=== PATIENT | male | born 1970 | race Two or more races ===

== ENCOUNTER → 2020-06-25 14:32 | Outpatient (BNVA) | payer MEDICAID, SELFPAY | PROVIDERS: PCP Internal Medicine; Referring Provider Internal Medicine; Visit Provider Urology | DX: Z76.89 Persons encountering health services in other specified circumstances (principal) | CPT/HCPCS: 99212 ==

== ENCOUNTER → 2020-07-09 14:57 | Outpatient (BNVA) | payer MEDICAID, SELFPAY | PROVIDERS: Visit Provider Urology | DX: Z76.89 Persons encountering health services in other specified circumstances (principal) ==

== ENCOUNTER → 2020-07-14 14:45 | Outpatient (BNVA) | payer MEDICAID, SELFPAY | PROVIDERS: Visit Provider Urology | DX: Z76.89 Persons encountering health services in other specified circumstances (principal) | CPT/HCPCS: 99212 ==

== ENCOUNTER → 2020-07-27 15:15 | Outpatient (BNVA) | payer MEDICAID, SELFPAY | PROVIDERS: Visit Provider Urology | DX: Z76.89 Persons encountering health services in other specified circumstances (principal) | CPT/HCPCS: 99212 ==

== ENCOUNTER → 2020-08-10 15:25 | Outpatient (BNVA) | payer MEDICAID, SELFPAY | PROVIDERS: Visit Provider Urology | DX: E29.1 Testicular hypofunction (principal) | CPT/HCPCS: 96372; 99212 ==

== ENCOUNTER → 2020-09-01 11:07 | Outpatient (BNVA) | payer MEDICAID, SELFPAY | PROVIDERS: Visit Provider Urology | DX: E29.1 Testicular hypofunction (principal); Z79.899 Other long term (current) drug therapy | CPT/HCPCS: 96372; 99212 ==

== ENCOUNTER → 2020-09-16 14:50 | Outpatient (BNVA) | payer MEDICAID, SELFPAY | PROVIDERS: Visit Provider Urology | DX: E29.1 Testicular hypofunction (principal) | CPT/HCPCS: 96372 ==

== ENCOUNTER → 2020-09-30 14:36 | Outpatient (BNVA) | payer MEDICAID, SELFPAY | PROVIDERS: Visit Provider Urology | DX: E29.1 Testicular hypofunction (principal) | CPT/HCPCS: 96372; 99212 ==

== ENCOUNTER → 2020-12-09 14:03 | Outpatient (BNVA) | payer MEDICAID, SELFPAY | PROVIDERS: Visit Provider Urology | DX: E29.1 Testicular hypofunction (principal) | CPT/HCPCS: 96372; 99212 ==

== ENCOUNTER 2021-03-04 05:48 | Emergency (ER) | payer MEDICAID, SELFPAY ==
[2021-03-04 06:14] VITALS: BP 145/76; PULSE 67; RESP 20; TEMP 36.4; O2SAT 98; BMI 20.9
[2021-03-04] MEDS: 0.9 % Sodium Chloride 1,000 ML 999 ML IV (06:23)
[2021-03-04] MEDS: ondansetron HCL 4 MG/2 ML VIAL IVPUSH ×2 (06:23→08:00)
[2021-03-04 06:32] LABS: MANUAL DIFF FLAG NO
[2021-03-04 06:36] LABS: Basophils Percent Auto 0.3 % (0-2); Eosinophils Absolute Auto 0.1 X10*3/uL (0.0-0.4); Hematocrit 45.3 % (42-52); Hemoglobin 15.3 g/dl (14.0-18.0); Imm Gran Abs Auto 0.02 X10*3/uL (0.00-0.03); Imm Gran Pct Auto 0.3 % (0.0-0.4); Lymphocytes Absolute Auto 1.6 X10*3/uL (1.2-4.9); Lymphocytes Percent Auto 27.5 % (20-40); Mean Corpuscular HGB Conc 33.8 g/dl (31.0-36.0); Mean Corpuscular Hemoglobin 32.8 pg (27.0-33.0); Mean Platelet Volume 11.4 fL (9.4-12.4); Monocytes Absolute Auto 0.7 X10*3/uL (0.1-1.2); Monocytes Percent Auto 11.4 % (2-11); Neutrophils Absolute Auto 3.5 X10*3/uL (2.0-8.3); Neutrophils Percent Auto 58.5 % (45-73); Platelet Count 191 X10*3/uL (160-400); Red Blood Count 4.67 X10*6/uL (4.60-5.80); Red Cell Distribution Width 12.2 % (11.0-16.0); White Blood Count 5.9 X10*3/uL (4.8-10.8)
[2021-03-04 07:01] VITALS: RESP 20
[2021-03-04] MEDS: HYDROmorphone HCl 1 MG/ML SYRINGE IVPUSH (07:01)
--- NOTE | 2021-03-04 07:01 | ED.GENADULT ---
HPI - General Adult General Chief complaint: ETOH/Substance Use Stated complaint: drug use Time Seen by Provider: 03/04/21 06:23 Source: patient, family ( ) and professional security officer Mode of arrival: ambulatory History of Present Illness HPI narrative: 50-year-old male who is on methadone program and used heroin yesterday and then as per took more than he was supposed to of methadone at approximately midnight. Patient then self-administered Narcan prior to arrival with resulting tremulousness, nausea/vomiting, yawning, abdominal pain. Patient denies any suicidal or homicidal ideation. Related Data Home Medications Medication Instructions Recorded Confirmed cholecalciferol (vitamin D3) 50 mcg PO DAILY 06/30/20 09/01/20 [Vitamin D3] clonazepam 1 mg PO DAILY 06/30/20 09/01/20 fluticasone propionate [Flonase 1 spray INTRANASAL DAILY 06/30/20 09/01/20 Allergy Relief] hydroxyzine HCl 25 mg PO TID PRN 06/30/20 09/01/20 methadone 36 mg PO DAILY 06/30/20 09/01/20 omeprazole 20 mg PO DAILY 06/30/20 09/01/20 risperidone [Risperdal] 1 mg PO DAILY 06/30/20 09/01/20 tamsulosin 0.4 mg PO DAILY 06/30/20 09/01/20 zolpidem 10 mg PO BEDTIME PRN 06/30/20 09/01/20 Previous Rx's Medication Instructions Recorded docusate sodium 100 mg capsule 200 mg PO BEDTIME 30 Days #60 cap 06/03/20 simethicone 125 mg chewable tablet 125 mg PO TID-QID PRN #90 tab 09/14/20 tamsulosin 0.4 mg capsule 0.4 mg PO DAILY 90 Days #90 cap 09/27/20 testosterone cypionate 200 mg/mL 200 mg IM Q2W 28 Days #2 ml 10/26/20 intramuscular oil syringe with needle 3 mL 21 gauge #50 ea 01/28/21 x 1 1/2 Allergies Allergy/AdvReac Type Severity Reaction Status Date / Time vancomycin [VANCOMYCIN] Allergy Unknown UNKNOWN Verified 03/04/21 06:19 REACTION SEAFOOD Allergy Severe ANAPHYLAXIS Uncoded 03/04/21 06:19 shellfish Allergy Unknown Anaphylaxis Uncoded 03/04/21 06:19 Review of Systems Review of Systems: Pertinent positives and negatives as stated in HPI 10 point review of systems is otherwise negative. [facility] Past Medical History Source: nursing notes reviewed Medical History Anemia Anxiety and depression BPH (benign prostatic hyperplasia) Erectile dysfunction GERD (gastroesophageal reflux disease) History of Helicobacter pylori infection HTN (hypertension) Hx of hepatitis C Hx of substance abuse Hx: UTI (urinary tract infection) Hypogonadism Murmur Smoker Spinal pain Surgical History Hx of cystoscopy Social History Social History Advance Directives: No Physical Exam Vital Signs: Vital Signs: Last Vital Signs Temp 97.6 F 03/04/21 06:14 Pulse 67 03/04/21 06:14 Resp 20 03/04/21 07:01 BP 145/76 H 03/04/21 06:14 Pulse Ox 98 03/04/21 06:14 Body Mass Index 20.9 VITAL SIGNS: Reviewed. GENERAL: patient yawning, well developed, well nourished, moderate distress. HEAD: Normocephalic/atraumatic EYES: PERRLA, EOMI EARS: Ext canals without abnormality NOSE: Nares patent bilateral, rhinorrhea OROPHARYNX: no oral lesions noted, posterior pharynx clear NECK: Supple, no adenopathy LUNGS: Normal breath sounds. No adventitious sounds or accessory muscle use. SpO2<98> CARDIOVASCULAR: Regular rate and rhythm without noted murmurs ABDOMEN: Active nausea /vomiting, Soft, diffusely tender without rebound, non-distended with bowel sounds. SKIN: Inspection of the skin reveals no rashes NEUROLOGIC: Alert and oriented x 4, tremulousness, strength and sensation to light touch were grossly intact x 4. Course Course Course Narrative: 50-year-old male with history and clinical presentation consistent with acute withdrawal secondary to self administration of Narcan after taking methadone. Patient was provided with IV fluids, antiemetics, as well as medication for withdrawal. We will continue to observed. Basic labs were obtained. Signed out to Dr Ochoa. Medical Decision Making Lab Data Result diagrams: 03/04/21 06:26 03/04/21 06:26 Labs: Lab Results 07/02/21 Range/Units 06:26 WBC 5.9 (4.8-10.8) X10*3/uL RBC 4.67 (4.60-5.80) X10*6/uL Hgb 15.3 (14.0-18.0) g/dl Hct 45.3 (42-52) % MCV 97.0 (80-98) fL MCH 32.8 (27.0-33.0) pg MCHC 33.8 (31.0-36.0) g/dl RDW 12.2 (11.0-16.0) % Plt Count 191 (160-400) X10*3/uL MPV 11.4 (9.4-12.4) fL Immature Gran % (Auto) 0.3 (0.0-0.4) % Neut % (Auto) 58.5 (45-73) % Lymph % (Auto) 27.5 (20-40) % [place] % (Auto) 11.4 H (2-11) % Eos % (Auto) 2.0 (0-4) % Baso % (Auto) 0.3 (0-2) % Lymph # (Auto) 1.6 (1.2-4.9) X10*3/uL [place] # (Auto) 0.7 (0.1-1.2) X10*3/uL Eos # (Auto) 0.1 (0.0-0.4) X10*3/uL Baso # (Auto) 0.0 (0.0-0.2) X10*3/uL Abs Immat Gran (auto) 0.02 (0.00-0.03) X10*3/uL Absolute Neuts (auto) 3.5 (2.0-8.3) X10*3/uL Absolute Nucleated RBC 0.000 (0.0-0.012) X10*3/uL Nucleated RBC % (auto) 0.0 (0.0-0.2) /100WBC Discharge Plan Discharge Prescriptions: No Action docusate sodium [Colace] 100 mg capsule 200 mg PO BEDTIME 30 Days Qty: 60 RF: 3 simethicone [Gas Relief (simethicone)] 125 mg tablet,chewable 125 mg PO TID-QID PRN (Reason: abdominal distention) Qty: 90 RF: 2 tamsulosin 0.4 mg capsule 0.4 mg PO DAILY 90 Days Qty: 90 RF: 2 testosterone cypionate 200 mg/mL oil 200 mg IM Q2W 28 Days Qty: 2 RF: 5 (DME) syringe with needle [BD Luer-Vira Syringe] 3 mL 21 gauge x 1 1/2 syringe See Rx Instructions .MEDSUPPLY Qty: 50 RF: 6 clonazepam 1 mg Tablet 1 mg PO DAILY RF: 0 methadone 40 mg Tablet,Soluble 36 mg PO DAILY RF: 0 tamsulosin 0.4 mg Capsule 0.4 mg PO DAILY RF: 0 omeprazole 20 mg Capsule,Delayed Release(Dr/Ec) 20 mg PO DAILY RF: 0 hydroxyzine HCl 25 mg Tablet 25 mg PO TID PRN (Reason: Itching) RF: 0 zolpidem 10 mg Tablet 10 mg PO BEDTIME PRN (Reason: Insomnia) RF: 0 fluticasone propionate [Flonase Allergy Relief] 50 mcg/actuation [place],Suspension 1 spray INTRANASAL DAILY RF: 0 risperidone [Risperdal] 1 mg Tablet 1 mg PO DAILY RF: 0 cholecalciferol (vitamin D3) [Vitamin D3] 50 mcg (2,000 unit) Capsule 50 mcg PO DAILY RF: 0
[2021-03-04 08:06] LABS: Ethanol < 10 mg/dL
[2021-03-04 08:34] LABS: Alanine Aminotransferase 19 U/L (0-40); Albumin Level 4.4 g/dL (3.5-5.0); Alkaline Phosphatase 63 U/L (39-117); Anion Gap 15 (12-20); Aspartate Amino Transferase 22 U/L (5-37); Bilirubin Total 0.7 mg/dL (0.0-1.0); Blood Urea Nitrogen 11 mg/dL (9-16); Calcium 8.9 mg/dL (8.4-10.2); Carbon Dioxide 20 mmol/L (22-29); Chloride 107 mmol/L (96-108); Creatinine Clr Calc Pharmacy 83.8; Estimated Glomerular Filt Rate > 60; Glucose Random 112 mg/dL (60-115); Potassium 3.6 mmol/L (3.3-5.1); Sodium 138 mmol/L (135-145); Total Protein 7.2 g/dL (6.5-8.0)
[2021-03-04 08:56] VITALS: BP 122/73; PULSE 55
[2021-03-04] MEDS: cloNIDine HCL 0.1 MG TABLET PO (08:56)
[2021-03-04] MEDS: TiZANidine HCL 4 MG TABLET PO (08:57)
== END 2021-03-04 10:47 | disposition home or self-care (01) ==
PROVIDERS: Student in an Organized Health Care Education/Training Program; Emergency Provider Emergency Medicine Emergency Medical Services
DX: F11.23 Opioid dependence with withdrawal (principal); I10 Essential (primary) hypertension
CPT/HCPCS: 36415; 80053; 82077; 85025; 96361; 96374; 96375; 96376; 99283; 99284; J1170; J2405

== ENCOUNTER 2021-06-06 08:57 | Outpatient (REF) | payer MEDICAID, SELFPAY ==
[2021-06-06 09:27] LABS: Hematocrit 41.4 % (42-52); Hemoglobin 13.8 g/dl (14.0-18.0); Mean Corpuscular HGB Conc 33.3 g/dl (31.0-36.0); Mean Corpuscular Hemoglobin 31.5 pg (27.0-33.0); Mean Corpuscular Volume 94.5 fL (80-98); Mean Platelet Volume 10.8 fL (9.4-12.4); Platelet Count 196 X10*3/uL (160-400); Red Blood Count 4.38 X10*6/uL (4.60-5.80); Red Cell Distribution Width 13.9 % (11.0-16.0); White Blood Count 5.7 X10*3/uL (4.8-10.8)
[2021-06-06 10:23] LABS: Prostate Specific Antigen 1.56 ng/mL (<0.05-4.0)
[2021-06-10 08:01] LABS: Testosterone, Total 362 ng/dL (250-1100)
== END 2021-06-06 08:58 | disposition home or self-care (01) ==
LOC: HO.LAB 08:57
PROVIDERS: Visit Provider Urology
DX: Z12.5 Encounter for screening for malignant neoplasm of prostate (principal); E29.1 Testicular hypofunction
CPT/HCPCS: 36415; 84153; 84403; 85027

== ENCOUNTER → 2021-10-20 12:30 | Outpatient (BNVA) | payer MEDICAID, SELFPAY | PROVIDERS: Referring Provider General Practice; Visit Provider Physician Assistant | DX: K59.09 Other constipation (principal); K21.9 Gastro-esophageal reflux disease without esophagitis; R10.13 Epigastric pain; Z78.9 Other specified health status | CPT/HCPCS: 99202 ==

== ENCOUNTER → 2021-11-15 10:58 | Outpatient (REF) | payer MEDICAID, SELFPAY ==
--- NOTE | 2021-11-15 11:00 | CA_ITS ---
Acquisition Time: 2021-11-15 11:21:58 Total Exercise Time: 00:09:11 Test Indications: Chest Pain Medications: METHADONE RISPERDOL OMEPRAZOLE NAPROXEN MIRTAZAPINE FLONASE CYCLOBENZAPRINE ALBUTEROL Protocol: EMILY Max HR: 157 BPM 94% of Pred: 167 BPM Max BP: 120/082 mmHG Max Work Load: 10.3 METS Exercise stress test with exercise 9 min 11 sec of Emily protocol, without anginal symptoms, without arrythmia, with normotensive response to exercise in stage 1 and 2, BP not obtained again until recovery, without EKG changes meeting criteria for ischemia. Echo images obtained by tech at rest and immediately post peak exercise. Definity contrast used. Test reviewed with Dr Gallego. Referred By: Abram Montenegro Overread By: ZEYAD MOLINA
== END ==
LOC: HO.CARD 10:58
PROVIDERS: PCP Registered Nurse Community Health; Visit Provider Internal Medicine Cardiovascular Disease
DX: R07.9 Chest pain, unspecified (principal)
CPT/HCPCS: 93350; Q9957

== ENCOUNTER 2021-11-22 13:11 | Outpatient (REF) | payer MEDICAID, SELFPAY ==
--- NOTE | ~2021-11-22 | CT_ITS ---
EXAMINATION: CT ABDOMEN AND PELVIS WITHOUT CONTRAST CLINICAL INFORMATION: Low back pain and radiculopathy COMPARISON: Previous CT of the abdomen and pelvis April 2020 and abdominal ultrasound February 2020 TECHNIQUE: Multidetector volumetric imaging was performed from the superior aspect of the liver through the pubic symphysis. Sagittal and coronal reformatted images were obtained on the technologist's workstation. This CT examination was performed using dose optimization techniques as appropriate, variously including the following: *Automated exposure control *Adjustment of mA and/or kV according to patient size (this includes techniques or standardized protocols for targeted exams where dose is matched to indication/reason for exam; i.e. extremities or head) *Use of iterative reconstruction technique DLP: 260 mGy-cm FINDINGS: LUNG BASES: The visualized lung bases are unremarkable. LIVER, GALLBLADDER, AND BILIARY TREE: The liver is normal in size, shape, and attenuation. No focal hepatic lesion or biliary ductal dilatation is present. The gallbladder is unremarkable with no evidence of radiopaque gallstones, gallbladder wall thickening, or obvious pericholecystic inflammatory changes. PANCREAS: Unremarkable. SPLEEN: Unremarkable. ADRENAL GLANDS: Unremarkable. KIDNEYS AND URETERS: The kidneys are normal in size, shape, and attenuation. There is a tiny 1 mm left upper pole renal stone. No hydronephrosis or hydroureter. No perinephric stranding. BLADDER: Not optimally distended. GASTROINTESTINAL TRACT: The small and large bowel are unremarkable. The appendix is unremarkable. ABDOMINAL WALL: Small umbilical hernia containing fat. LYMPH NODES: Normal. VASCULAR: Unremarkable. PELVIC VISCERA: Prostate gland is prominent measuring 4.1 x 4.3 cm in AP and transverse dimension. OSSEOUS STRUCTURES: Unremarkable. CT/CT abdomen pelvis wo con IMPRESSION: Tiny 1 mm left upper pole renal stone. Slightly enlarged prostate gland. Small umbilical hernia containing fat. Fleischner guidelines were followed.
== END 2021-11-22 13:12 | disposition home or self-care (01) ==
LOC: HO.MRI 13:11
PROVIDERS: Visit Provider Nurse Practitioner Primary Care
DX: R10.9 Unspecified abdominal pain (principal); R31.29 Other microscopic hematuria
CPT/HCPCS: 74176

== ENCOUNTER 2021-12-07 13:12 | Outpatient (REF) | payer MEDICAID, SELFPAY ==
--- NOTE | ~2021-12-07 | US_ITS ---
EXAMINATION: US EXTRACRANIAL CAROTID DUPLEX, BILATERAL CLINICAL INFORMATION: Neck pain COMPARISON: None TECHNIQUE: Real-time ultrasound and Doppler techniques (integrating B-mode 2-D vascular images, Doppler spectral analysis and color-flow Doppler imaging) were utilized to interrogate the extracranial carotid arteries, the vertebral arteries and proximal subclavian arteries bilaterally. The degree of stenosis is determined by criteria similar to NASCET. FINDINGS: Right Side: 1. There is no significant atherosclerotic plaque seen in the bifurcation/proximal ICA region. 2. The common carotid artery PSV proximally is 120 cm/s and distally 109 cm/s. 3. The proximal internal carotid artery velocities are 89.1 cm/s systolic and 28.7 cm/s diastolic. 4. The proximal external carotid artery PSV is 1230 cm/s. 5. The vertebral artery shows antegrade flow. 6. The subclavian artery waveforms are normal. Left Side: 1. There is no significant atherosclerotic plaque seen in the bifurcation/proximal ICA region. 2. The common carotid artery PSV proximally is 115 cm/s and distally 114 cm/s. 3. The proximal internal carotid artery velocities are 59.3 cm/s systolic and 18.9 cm/s diastolic. 4. The proximal external carotid artery PSV is 116 cm/s. 5. The vertebral artery shows antegrade flow. 6. The subclavian artery waveforms are normal. US/US carotid duplex BI IMPRESSION: 1. RIGHT: Normal right internal carotid artery without atherosclerotic plaque or hemodynamically significant stenosis. 2. LEFT: Normal left internal carotid artery without atherosclerotic plaque or hemodynamically significant stenosis.
--- NOTE | ~2021-12-07 | US_ITS ---
EXAMINATION: US SOFT TISSUE HEAD/NECK CLINICAL INFORMATION: Left neck swelling. COMPARISON: None TECHNIQUE: Ultrasound of the left neck soft tissues is performed with high- frequency ocampo-scale imaging and color Doppler. FINDINGS: LEFT NECK SOFT TISSUES: Scattered architecturally normal nodes are present. The nodes show normal fatty hilus, normal cortical thickness, and no cystic change or calcification. No abnormal color flow. The largest nodes are as follows: 0.6 x 0.8 x 0.2 cm. Normal jaylin architecture. 1.7 x 0.5 x 0.7 cm in the submandibular region. Normal [place] architecture. US/US soft tiss head and/or neck IMPRESSION: Prominent left submandibular lymph node with normal architecture. Otherwise no focal abnormality.
== END 2021-12-07 13:13 | disposition home or self-care (01) ==
LOC: HO.US 13:12
PROVIDERS: Visit Provider Nurse Practitioner Primary Care
DX: M54.2 Cervicalgia (principal)
CPT/HCPCS: 76536; 93880

== ENCOUNTER 2021-12-12 12:27 | Outpatient (REF) | payer MEDICAID, SELFPAY ==
[2021-12-12 12:40] LABS: MANUAL DIFF FLAG NO
[2021-12-12 12:58] LABS: Basophils Percent Auto 0.5 % (0-2); Eosinophils Absolute Auto 0.2 X10*3/uL (0.0-0.4); Eosinophils Percent Auto 2.7 % (0-4); Hematocrit 44.2 % (42.0-52.0); Hemoglobin 14.6 g/dl (14.0-18.0); Imm Gran Abs Auto 0.01 X10*3/uL (0.00-0.03); Imm Gran Pct Auto 0.1 % (0.0-0.4); Lymphocytes Absolute Auto 1.7 X10*3/uL (1.2-4.9); Lymphocytes Percent Auto 22.1 % (20-40); Mean Corpuscular Hemoglobin 31.5 pg (27.0-33.0); Mean Corpuscular Volume 95.3 fL (80.0-98.0); Monocytes Absolute Auto 0.5 X10*3/uL (0.1-1.2); Monocytes Percent Auto 6.3 % (2-11); Neutrophils Absolute Auto 5.1 x10*3/uL (2.0-8.3); Neutrophils Percent Auto 68.3 % (45-73); Platelet Count 181 X10*3/uL (160-400); Red Blood Count 4.64 X10*6/uL (4.60-5.80); Red Cell Distribution Width 13.2 % (11.0-16.0); White Blood Count 7.5 X10*3/uL (4.8-10.8)
[2021-12-12 13:23] LABS: Alanine Aminotransferase 23 U/L (0-40); Albumin Level 4.3 g/dL (3.5-5.0); Alkaline Phosphatase 64 U/L (39-117); Anion Gap 10 (12-20); Aspartate Amino Transferase 21 U/L (5-37); Bilirubin Total 0.6 mg/dL (0.0-1.0); Blood Urea Nitrogen 11 mg/dL (9-16); Calcium 9.4 mg/dL (8.4-10.2); Carbon Dioxide 32 mmol/L (22-29); Chloride 100 mmol/L (96-108); Estimated Glomerular Filt Rate > 60; Glucose Random 108 mg/dL (60-115); Potassium 4.6 mmol/L (3.3-5.1); Sodium 137 mmol/L (135-145); Total Protein 7.3 g/dL (6.5-8.0)
[2021-12-12 13:43] LABS: Prostate Specific Antigen 1.59 ng/mL (<0.05-4.0); Thyroid Stimulating Hormone 2.61 uIU/mL (0.32-4.0)
[2021-12-14 09:02] LABS: HCV Log PCR <1.18 NOT DETECTED Log IU/mL (NOT DETECTED); HepC Viral Load <15 NOT DETECTED IU/mL (NOT DETECTED)
[2021-12-18 11:42] LABS: Testosterone, Total 1657 ng/dL (250-1100)
== END 2021-12-12 12:28 | disposition home or self-care (01) ==
LOC: HO.LAB 12:27
PROVIDERS: Physician Assistant; PCP Registered Nurse Community Health; Visit Provider Urology
DX: Z12.5 Encounter for screening for malignant neoplasm of prostate (principal); N13.8 Other obstructive and reflux uropathy; N40.1 Benign prostatic hyperplasia with lower urinary tract symptoms; R10.13 Epigastric pain; E29.1 Testicular hypofunction; K59.09 Other constipation; B19.20 Unspecified viral hepatitis C without hepatic coma; K21.9 Gastro-esophageal reflux disease without esophagitis
CPT/HCPCS: 36415; 80053; 84153; 84403; 84443; 85025; 87522

== ENCOUNTER → 2021-12-16 10:03 | Outpatient (BNVA) | payer MEDICAID, SELFPAY | PROVIDERS: PCP Registered Nurse Community Health; Visit Provider Urology | DX: E29.1 Testicular hypofunction (principal) | CPT/HCPCS: 51798; 99212 ==

== ENCOUNTER 2022-03-15 10:50 | Emergency (ER) | payer MEDICAID, SELFPAY ==
--- NOTE | ~2022-03-15 | US_ITS ---
EXAMINATION: US ABDOMEN LIMITED CLINICAL INFORMATION: Epigastric pain. Weight loss.. COMPARISON: Previous CT of the abdomen and pelvis November 2021 and abdominal ultrasound February 2020 TECHNIQUE: Real-time imaging of the right upper quadrant abdominal viscera. FINDINGS: PANCREAS: The head and body the pancreas are normal. The tail is not well visualized. The main pancreatic duct is upper normal in size measuring 3 mm in the neck of the pancreas. LIVER: Normal. The liver is normal in size. The liver contour is normal. Parenchymal echogenicity is normal. No focal hepatic lesion. There is no intrahepatic biliary duct dilatation seen. GALLBLADDER: Gallbladder is contracted and not well assessed.. COMMON BILE DUCT: Normal in caliber measuring 0.7 cm in diameter. RIGHT KIDNEY: Normal. No hydronephrosis. No renal calculi or focal parenchymal lesions. The kidney measures 10 cm in maximum dimension. FREE FLUID: None. US/US abdomen limited IMPRESSION: Limited visualization of the tail the pancreas. The main pancreatic duct is upper normal in size. Contracted gallbladder not well assessed by ultrasound. Otherwise unremarkable exam
[2022-03-15 11:07] VITALS: BP 110/50; PULSE 56; RESP 16; TEMP 37; O2SAT 97; BMI 22.4
[2022-03-15 11:16] LABS: MANUAL DIFF FLAG NO
[2022-03-15 11:20] LABS: Basophils Percent Auto 0.5 % (0-2); Eosinophils Absolute Auto 0.3 X10*3/uL (0.0-0.4); Eosinophils Percent Auto 3.1 % (0-4); Hematocrit 44.3 % (42.0-52.0); Hemoglobin 14.7 g/dl (14.0-18.0); Imm Gran Abs Auto 0.02 X10*3/uL (0.00-0.03); Imm Gran Pct Auto 0.2 % (0.0-0.4); Lymphocytes Percent Auto 24.6 % (20-40); Mean Corpuscular HGB Conc 33.2 g/dl (31.0-36.0); Mean Corpuscular Hemoglobin 31.3 pg (27.0-33.0); Mean Corpuscular Volume 94.5 fL (80.0-98.0); Mean Platelet Volume 11.5 fL (9.4-12.4); Monocytes Absolute Auto 0.6 X10*3/uL (0.1-1.2); Monocytes Percent Auto 7.4 % (2-11); Neutrophils Absolute Auto 5.2 x10*3/uL (2.0-8.3); Neutrophils Percent Auto 64.2 % (45-73); Platelet Count 175 X10*3/uL (160-400); Red Blood Count 4.69 X10*6/uL (4.60-5.80); Red Cell Distribution Width 13.2 % (11.0-16.0)
[2022-03-15 11:37] LABS: Alanine Aminotransferase 17 U/L (0-40); Albumin Level 4.5 g/dL (3.5-5.0); Alkaline Phosphatase 59 U/L (39-117); Anion Gap 12 (12-20); Aspartate Amino Transferase 19 U/L (5-37); Bilirubin Direct 0.4 mg/dL (0.0-0.5); Blood Urea Nitrogen 14 mg/dL (9-16); Calcium 8.9 mg/dL (8.4-10.2); Carbon Dioxide 30 mmol/L (22-29); Chloride 101 mmol/L (96-108); Creatinine Clr Calc Pharmacy 70.1; Estimated Glomerular Filt Rate > 60; Glucose Random 88 mg/dL (60-115); Potassium 4.5 mmol/L (3.3-5.1); Sodium 138 mmol/L (135-145); Total Protein 7.4 g/dL (6.5-8.0)
--- NOTE | 2022-03-15 14:08 | ED_ITS ---
HPI - Abdominal Pain General Chief Complaint: Abdominal Pain Stated Complaint: abd pain Time Seen by Provider: 03/15/22 14:01 Source: patient and court specialist Mode of arrival: ambulatory Limitations: no limitations History of Present Illness HPI narrative: 51 yo male with hx of GERD, chronic constipation, comes in with c/o months of being a picky eater, feeling full after eating and weight loss of 10lbs over several months. He saw his doctor as well and was told his stool studies are normal and his blood work. On arrival to the room he is drinking coffee and eating chicken nuggets. He is taking his omeprazole. He had CT scan back in November of 2021. He denies NSAID use daily. MD elicited complaint: abdominal pain Pertinent past history: constipation Pain Consistency: intermittent Location: epigastric Severity: mild Quality: fullness and dull Radiation: none Migration to: no migration Exacerbating factors: eating Relieving factors: nothing Associated symptoms: other (worse with eating) Treatments prior to arrival: other (takes all medications) Related Data Home Medications Medication Instructions Recorded Confirmed cholecalciferol (vitamin D3) 50 50 mcg PO DAILY 06/30/20 10/20/21 mcg (2,000 unit) capsule (Vitamin D3) clonazepam 1 mg tablet 1 mg PO DAILY 06/30/20 10/20/21 fluticasone propionate 50 1 spray intranasal DAILY 06/30/20 10/20/21 mcg/actuation nasal spray,suspension (Flonase Allergy Relief) hydroxyzine HCl 25 mg tablet 25 mg PO TID PRN Itching 06/30/20 10/20/21 methadone 40 mg soluble tablet 36 mg PO DAILY 06/30/20 10/20/21 omeprazole 20 mg capsule,delayed 20 mg PO DAILY 06/30/20 10/20/21 release risperidone 1 mg tablet (Risperdal) 1 mg PO DAILY 06/30/20 10/20/21 tamsulosin 0.4 mg capsule 0.4 mg PO DAILY 06/30/20 10/20/21 zolpidem 10 mg tablet 10 mg PO BEDTIME PRN Insomnia 06/30/20 10/20/21 fluoxetine 10 mg capsule 20 mg PO QAM 10/20/21 10/20/21 mirtazapine 15 mg tablet 15 mg PO BEDTIME 10/20/21 10/20/21 trazodone 50 mg tablet 25 mg PO BEDTIME 10/20/21 10/20/21 ascorbic acid (vitamin C) 500 mg 500 mg PO DAILY 12/16/21 tablet (Vitamin C) ferrous sulfate 325 mg (65 mg 325 mg PO DAILY 12/16/21 iron) tablet (FeroSul) lidocaine 5 % topical patch 0 patch topical 12/16/21 (Lidoderm) sennosides 8.6 mg tablet (senna) 17.2 mg PO DAILY 12/16/21 Previous Rx's Medication Instructions Recorded docusate sodium 100 mg capsule 200 mg PO BEDTIME 30 days #60 caps 06/03/20 (Colace) simethicone 125 mg chewable tablet 125 mg PO TID-QID PRN abdominal 09/14/20 (Gas Relief (simethicone)) distention #90 tabs syringe with needle 3 mL 21 gauge #50 ea 01/28/21 x 1 1/2 (BD Luer-Vira Syringe) pantoprazole 20 mg tablet,delayed 40 mg PO ONCE 30 days #60 tabs 10/20/21 release testosterone cypionate 200 mg/mL 200 mg IM Q2W 28 days #2 mL 11/01/21 intramuscular oil needle (disp) 18 G 18 gauge x 1 #30 ea 12/16/21 1/2 (BD Regular Bevel Fitzwilliam) needle (disp) 22 G 22 gauge x 1 #30 ea 12/16/21 1/2 (BD Regular Bevel Fitzwilliam) syringe (disposable) 1 mL (BD #30 ea 12/16/21 Luer-Vira Syringe) sucralfate 100 mg/mL oral 10 ml PO BID #420 mL 12/26/21 suspension (Carafate) tamsulosin 0.4 mg capsule 0.4 mg PO DAILY 90 days #90 caps 01/23/22 simethicone 125 mg chewable tablet 125 mg PO TID-QID PRN for gas #90 03/07/22 (Gas Relief Extra Strength) tabs Allergies Allergy/AdvReac Type Severity Reaction Status Date / Time SEAFOOD Allergy Severe ANAPHYLAXIS Uncoded 10/20/21 12:37 shellfish Allergy Unknown Anaphylaxis Uncoded 10/20/21 12:37 Review of Systems Review of Systems Constitutional : pos Weight loss, No Fever, No Chills ENT/Mouth : No sore throat, No Rhinorrhea Eyes: No Swelling, No Redness Cardiovascular : No Chest Pain, No SOB, NoEdema Respiratory : No Cough, No Sputum, No Wheezing Gastrointestinal : no Nausea, no Vomiting, no Diarrhea, positive abdominal Pain, No Hematochezia, No Melena Genitourinary : No Dysuria, No Urinary Frequency, No Hematuria, No Urgency Musculoskeletal : No joint pain, No Myalgias, No Joint Swelling Skin : No Skin Lesions, No rash Neuro : No Weakness, No Numbness, No Dizziness, No Headache Psych : No Anxiety/Panic, No Depression Heme/Lymph: No Bruising, No Lymphadenopathy Endocrine : No Polyuria, No Polydipsia All other systems reviewed and are negative. [facility] Past Medical History Medical History Anemia Anxiety and depression BPH (benign prostatic hyperplasia) Erectile dysfunction GERD (gastroesophageal reflux disease) History of Helicobacter pylori infection HTN (hypertension) Hx of hepatitis C Hx of substance abuse Hx: UTI (urinary tract infection) Hypogonadism Murmur Smoker Spinal pain Surgical History Hx of cystoscopy Family History Family History Mother Diabetes Social History Social History Alcohol intake: former Patient Tobacco Use Status: Current everyday Tobacco user Substance Use Type: Former Substance User Advance Directives: No Advance Directives Information Provided: No Current occupational status: unemployed Physical Exam ED Vital Signs: Vital Signs - 24 hr 03/15/22 11:07 03/15/22 14:09 Temperature 98.6 F Pulse Rate 56 57 Respiratory Rate 16 18 Blood Pressure 110/50 L 116/68 Pulse Oximetry 97 98 Oxygen Delivery Method Room Air Room Air BMI result Body Mass Index 22.4 Appearance: Alert. Oriented X3. No acute distress. Eyes: Pupils equal, round and reactive to light. ENT: Pharynx normal. Neck: Normal inspection. Neck supple. CVS: Normal heart rate and rhythm. Pulses normal. Respiratory: No respiratory distress. Breath sounds normal. Abdomen: Soft and non-tender. Skin: Skin warm and dry. Normal skin color. Normal skin turgor. Extremities: No lower extremity edema. Neuro: Oriented X 3. No motor deficit. No sensory deficit. Course Course Course Narrative: GCS 15, refuses to stay for ultrasound result - aware he needs to contact his PCP for results MDM - Abdominal Pain MDM Narrative Medical decision making narrative: 51 yo male with hx of GERD, chronic constipation comes in with c/o upper abdominal pain and it feels hard to eat at times. He states his PCP just called him to tell him his labs look good as well as his stool study ? h pylori. He had a CT scan back in November with no mass seen. He is due in April with GI for endoscopy. He is compliant with his PPI. On interview he reports that he feels much better now as he drinks coffee and eats chicken nuggets. At this time will repeat labs and obtain US to evaluate GB. Dispo per results and findings. Lab Data Result diagrams: 03/15/22 11:12 03/15/22 11:12 Labs: Lab Results 03/15/22 03/15/22 Range/Units 11:12 11:12 WBC 8.0 (4.8-10.8) X10*3/uL RBC 4.69 (4.60-5.80) X10*6/uL Hgb 14.7 (14.0-18.0) g/dl Hct 44.3 (42.0-52.0) % MCV 94.5 (80.0-98.0) fL MCH 31.3 (27.0-33.0) pg MCHC 33.2 (31.0-36.0) g/dl RDW 13.2 (11.0-16.0) % Plt Count 175 (160-400) X10*3/uL MPV 11.5 (9.4-12.4) fL Immature Gran % (Auto) 0.2 (0.0-0.4) % Neut % (Auto) 64.2 (45-73) % Lymph % (Auto) 24.6 (20-40) % [place] % (Auto) 7.4 (2-11) % Eos % (Auto) 3.1 (0-4) % Baso % (Auto) 0.5 (0-2) % Lymph # (Auto) 2.0 (1.2-4.9) X10*3/uL [place] # (Auto) 0.6 (0.1-1.2) X10*3/uL Eos # (Auto) 0.3 (0.0-0.4) X10*3/uL Baso # (Auto) 0.0 (0.0-0.2) X10*3/uL Abs Immat Gran (auto) 0.02 (0.00-0.03) X10*3/uL Absolute Neuts (auto) 5.2 (2.0-8.3) x10*3/uL Absolute Nucleated RBC 0.000 (0.0-0.012) X10*3/uL Nucleated RBC % (auto) 0.0 (0.0-0.2) /100WBC Sodium 138 (135-145) mmol/L Potassium 4.5 (3.3-5.1) mmol/L Chloride 101 (96-108) mmol/L Carbon Dioxide 30 H (22-29) mmol/L Anion Gap 12 (12-20) BUN 14 (9-16) mg/dL Creatinine 1.12 (0.5-1.4) mg/dL Estim Creat Clear Calc 70.1 Estimated GFR > 60 Random Glucose 88 (60-115) mg/dL Calcium 8.9 (8.4-10.2) mg/dL Total Bilirubin 1.0 (0.0-1.0) mg/dL Direct Bilirubin 0.4 (0.0-0.5) mg/dL AST 19 (5-37) U/L ALT 17 (0-40) U/L Alkaline Phosphatase 59 (39-117) U/L Total Protein 7.4 (6.5-8.0) g/dL Albumin 4.5 (3.5-5.0) g/dL Lipase 38 (8-78) U/L Discharge Plan Discharge Clinical Impression: Abdominal pain Qualifiers: Abdominal location: epigastric Qualified Code(s): R10.13 - Epigastric pain Patient Disposition: Home, Self-Care Instructions: Abdominal Pain (ED) Additional Instructions: return to ED for any worsening symptoms or concerns por favor, leanne un seguimiento con melara m?dico y el m?dico gastrointestinal seg?n lo programado. contin?e con melara omeprazol. amberly laboratorios y ultrasonido fueron normales hoy. se va antes de los resultados de la ecograf?a, comun?quese con melara m?dico de atenci?n primaria para obtener los resultados. se va antes de un estudio completo y esto podr?a llevar a la necesidad de realizar m?s pruebas. Prescriptions: No Action docusate sodium [Colace] 100 mg capsule 200 mg PO BEDTIME 30 Days Qty: 60 3RF simethicone [Gas Relief (simethicone)] 125 mg tablet,chewable 125 mg PO TID-QID PRN (Reason: abdominal distention) Qty: 90 2RF (DME) syringe with needle [BD Luer-Vira Syringe] 3 mL 21 gauge x 1 1/2 syringe See Rx Instructions .MEDSUPPLY Qty: 50 6RF Rx Instructions: As directed testosterone cypionate 200 mg/mL oil 200 mg IM Q2W 28 Days Qty: 2 5RF sucralfate [Carafate] 100 mg/mL suspension 10 ml PO BID Qty: 420 0RF tamsulosin 0.4 mg capsule 0.4 mg PO DAILY 90 Days Qty: 90 2RF simethicone [Gas Relief Extra Strength] 125 mg tablet,chewable 125 mg PO TID-QID PRN (Reason: for gas) Qty: 90 2RF clonazepam 1 mg Tablet 1 mg PO DAILY methadone 40 mg Tablet,Soluble 36 mg PO DAILY tamsulosin 0.4 mg Capsule 0.4 mg PO DAILY omeprazole 20 mg Capsule,Delayed Release(Dr/Ec) 20 mg PO DAILY hydroxyzine HCl 25 mg Tablet 25 mg PO TID PRN (Reason: Itching) zolpidem 10 mg Tablet 10 mg PO BEDTIME PRN (Reason: Insomnia) fluticasone propionate [Flonase Allergy Relief] 50 mcg/actuation [place],Suspension 1 spray INTRANASAL DAILY risperidone [Risperdal] 1 mg Tablet 1 mg PO DAILY cholecalciferol (vitamin D3) [Vitamin D3] 50 mcg (2,000 unit) Capsule 50 mcg PO DAILY trazodone 50 mg tablet 25 mg PO BEDTIME mirtazapine 15 mg tablet 15 mg PO BEDTIME fluoxetine 10 mg capsule 20 mg PO QAM pantoprazole 20 mg tablet,delayed release (DR/EC) 40 mg PO ONCE 30 Days Qty: 60 6RF lidocaine [Lidoderm] 5 % adhesive patch,medicated 0 patch topical ferrous sulfate [FeroSul] 325 mg (65 mg iron) tablet 325 mg PO DAILY ascorbic acid (vitamin C) [Vitamin C] 500 mg tablet 500 mg PO DAILY sennosides [senna] 8.6 mg tablet 17.2 mg PO DAILY (DME) BD Luer-Vira Syringe 1 mL syringe See Rx Instructions .MEDSUPPLY Qty: 30 0RF Rx Instructions: Testosterone injection weekly (DME) BD Regular Bevel Fitzwilliam 18 gauge x 1 1/2 needle See Rx Instructions .MEDSUPPLY Qty: 30 0RF Rx Instructions: As directed (DME) BD Regular Bevel Fitzwilliam 22 gauge x 1 1/2 needle See Rx Instructions .MEDSUPPLY Qty: 30 0RF Rx Instructions: As directed Print Language: Uzbek
[2022-03-15 14:09] VITALS: BP 116/68; PULSE 57; RESP 18; O2SAT 98
--- NOTE | 2022-03-15 14:31 | PC.NURSE ---
ultrasound being done at bedside
[2022-03-15 14:54] LABS: Lipase 38 U/L (8-78)
== END 2022-03-15 16:05 | disposition home or self-care (01) ==
PROVIDERS: Emergency Provider Emergency Medicine
DX: R10.13 Epigastric pain (principal); K21.9 Gastro-esophageal reflux disease without esophagitis; F17.200 Nicotine dependence, unspecified, uncomplicated
CPT/HCPCS: 36415; 76705; 80048; 80076; 83690; 85025; 99283; 99284

== ENCOUNTER → 2022-05-18 13:36 | Outpatient (BNVA) | payer MEDICAID, SELFPAY | PROVIDERS: PCP Registered Nurse Community Health; Referring Provider Registered Nurse Community Health; Visit Provider Physician Assistant | DX: R10.13 Epigastric pain (principal); K21.9 Gastro-esophageal reflux disease without esophagitis; K59.09 Other constipation; Z78.9 Other specified health status | CPT/HCPCS: 99212 ==

== ENCOUNTER 2022-06-19 10:37 | Outpatient (REF) | payer MEDICAID, SELFPAY ==
[2022-06-19 13:51] LABS: Hematocrit 42.4 % (42.0-52.0); Hemoglobin 14.4 g/dl (14.0-18.0); Mean Corpuscular Hemoglobin 31.4 pg (27.0-33.0); Mean Corpuscular Volume 92.4 fL (80.0-98.0); Mean Platelet Volume 12.3 fL (9.4-12.4); Platelet Count 168 X10*3/uL (160-400); Red Blood Count 4.59 X10*6/uL (4.60-5.80); Red Cell Distribution Width 12.8 % (11.0-16.0); White Blood Count 6.8 X10*3/uL (4.8-10.8)
[2022-06-19 14:24] LABS: Prostate Specific Antigen 1.31 ng/mL (<0.05-4.0)
[2022-06-24 14:17] LABS: Testosterone, Total 159 ng/dL (250-1100)
== END 2022-06-19 10:38 | disposition home or self-care (01) ==
LOC: HO.10HDL 10:37
PROVIDERS: Visit Provider Urology
DX: Z12.5 Encounter for screening for malignant neoplasm of prostate (principal); E29.1 Testicular hypofunction
CPT/HCPCS: 36415; 84153; 84403; 85027

== ENCOUNTER 2022-06-24 15:55 | Emergency (ER) | payer MEDICAID, SELFPAY ==
--- NOTE | 2022-06-24 | ECG_ITS ---
Test Reason : CHEST PAIN Blood Pressure : / mmHG Vent. Rate : 054 BPM Atrial Rate : 054 BPM P-R Int : 162 ms QRS Dur : 086 ms QT Int : 386 ms P-R-T Axes : 052 029 034 degrees QTc Int : 366 ms Sinus bradycardia RSR' or QR pattern in V1 suggests right ventricular conduction delay Borderline ECG When compared with ECG of 23-APR-2020 13:13, No significant change was found Referred By: Generic ED Physician Electronically Signed By:MUSTAPHA PEREZ MD
[2022-06-24 16:47] VITALS: BP 111/63; PULSE 65; RESP 18; TEMP 36.8; O2SAT 97; BMI 20.8
== END 2022-06-24 18:44 | disposition left against medical advice (07) ==
PROVIDERS: Emergency Provider Emergency Medicine; PCP Registered Nurse Community Health
DX: R07.9 Chest pain, unspecified (principal); R51.9 Headache, unspecified; R42 Dizziness and giddiness
CPT/HCPCS: 93005; 99283

== ENCOUNTER 2022-07-06 11:11 | Emergency (ER) | payer MEDICAID, SELFPAY ==
[2022-07-06 11:43] VITALS: BP 97/51; PULSE 68; RESP 18; TEMP 36.6; O2SAT 98; BMI 22.8
[2022-07-06 12:16] LABS: Strep A Nucleic Acid Negative (Negative)
[2022-07-06 12:17] LABS: COVID-19 Test Negative (Negative); IDNOW Serial# 16C4AD1C
--- NOTE | 2022-07-06 14:59 | ED.GENADULT ---
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 Patient reports is sick at home with similar symptoms. Patient denies any recent travel or sick contact. No fevers, chills, difficulty breathing, chest pain, leg swelling leg pain, vomiting or diarrhea. Related Data Home Medications Medication Instructions Recorded Confirmed cholecalciferol (vitamin D3) 50 50 mcg PO DAILY 06/30/20 06/28/22 mcg (2,000 unit) capsule (Vitamin D3) clonazepam 1 mg tablet 1 mg PO DAILY 06/30/20 06/28/22 fluticasone propionate 50 1 spray intranasal DAILY 06/30/20 06/28/22 mcg/actuation nasal spray,suspension (Flonase Allergy Relief) hydroxyzine HCl 25 mg tablet 25 mg PO TID PRN Itching 06/30/20 06/28/22 methadone 40 mg soluble tablet 36 mg PO DAILY 06/30/20 06/28/22 omeprazole 20 mg capsule,delayed 20 mg PO DAILY 06/30/20 06/28/22 release fluoxetine 10 mg capsule 20 mg PO QAM 10/20/21 06/28/22 mirtazapine 15 mg tablet 15 mg PO BEDTIME 10/20/21 06/28/22 trazodone 50 mg tablet 25 mg PO BEDTIME 10/20/21 06/28/22 ascorbic acid (vitamin C) 500 mg 500 mg PO DAILY 12/16/21 06/28/22 tablet (Vitamin C) ferrous sulfate 325 mg (65 mg 325 mg PO DAILY 12/16/21 06/28/22 iron) tablet (FeroSul) lidocaine 5 % topical patch 0 patch topical 12/16/21 06/28/22 (Lidoderm) sennosides 8.6 mg tablet (senna) 17.2 mg PO DAILY 12/16/21 06/28/22 cetirizine 10 mg tablet 10 mg PO DAILY PRN congestion 05/18/22 06/28/22 risperidone 1 mg tablet (Risperdal) 1 mg PO DAILY 05/18/22 06/28/22 nicotine 14 mg/24 hr daily 0 patch topical 06/22/22 06/28/22 transdermal patch Previous Rx's Medication Instructions Recorded docusate sodium 100 mg capsule 200 mg PO BEDTIME 30 days #60 caps 06/03/20 (Colace) syringe with needle 3 mL 21 gauge #50 ea 01/28/21 x 1 1/2 (BD Luer-Vira Syringe) needle (disp) 18 G 18 gauge x 1 #30 ea 12/16/21 1/2 (BD Regular Bevel Lometa) needle (disp) 22 G 22 gauge x 1 #30 ea 12/16/21 1/2 (BD Regular Bevel Lometa) syringe (disposable) 1 mL (BD #30 ea 12/16/21 Luer-Vira Syringe) sucralfate 100 mg/mL oral 10 ml PO BID #420 mL 12/26/21 suspension (Carafate) tamsulosin 0.4 mg capsule 0.4 mg PO DAILY 90 days #90 caps 01/23/22 simethicone 125 mg chewable tablet 125 mg PO TID-QID PRN for gas #90 03/07/22 (Gas Relief Extra Strength) tabs testosterone cypionate 200 mg/mL 200 mg IM Q2W 28 days #2 mL 04/14/22 intramuscular oil pantoprazole 20 mg tablet,delayed 40 mg PO DAILY #60 tabs 05/09/22 release bisacodyl 5 mg tablet,delayed 10 mg PO ONCE colonoscopy prep 1 05/18/22 release (Dulcolax (bisacodyl)) day #2 tabs polyethylene glycol 3350 17 238 g PO ONCE 1 day #238 grams 05/18/22 gram/dose oral powder (Miralax) Allergies Allergy/AdvReac Type Severity Reaction Status Date / Time No Known Drug Allergies Allergy Mild Unknown Verified 06/24/22 16:47 SEAFOOD Allergy Severe ANAPHYLAXIS Uncoded 06/24/22 16:47 shellfish Allergy Unknown Anaphylaxis Uncoded 06/24/22 16:47 Review of Systems Review of Systems: Yes all other systems are reviewed and are negative Constitutional: Constitutional: Reports no additional constitutional complaints, Denies body ache(s), Denies chills, Denies fever(s), Reports headache(s) and Denies weakness Eyes: Eyes: Reports no additional eye complaints and Denies change in vision ENT: Reports system reviewed and no additional complaints, except as documented, Denies dizziness, Reports headache(s), Denies nasal congestion, Denies nasal discharge, Denies neck pain and Reports sore throat Cardiovascular: Cardiovascular: Reports no additional cardiovascular complaints, Denies chest pain, Denies leg edema and Denies dyspnea Respiratory: Respiratory: Reports no additional respiratory complaints, Reports cough and Denies dyspnea Gastrointestinal: Gastrointestinal: Reports no additional gastrointestinal complaints, Denies abdominal pain, Denies diarrhea, Denies nausea and Denies vomiting Genitourinary: Genitourinary: Denies urinary incontinence Musculoskeletal: Musculoskeletal: Reports no additional musculoskeletal complaints, Denies back pain, Denies arthralgias, Denies joint swelling, Denies neck pain, Denies numbness and Denies tingling Integumentary/Breasts: Skin/Breast: Reports system reviewed and no additional complaints, except as docu and Denies rash Neurologic: Reports system reviewed and no additional complaints, except as documented, Denies dizziness, Reports headache(s), Denies numbness, Denies tingling and Denies weakness PMFSH Past Medical History Attestation statement: The following information was validated with the patient. Source: old records reviewed and nursing notes reviewed Medical History Anemia Anxiety and depression BPH (benign prostatic hyperplasia) Erectile dysfunction GERD (gastroesophageal reflux disease) History of Helicobacter pylori infection HTN (hypertension) Hx of hepatitis C Hx of substance abuse Hx: UTI (urinary tract infection) Hypogonadism Murmur Smoker Spinal pain Surgical History Hx of cystoscopy Family History Family History Mother Diabetes Social History Social History Alcohol intake: former Patient Tobacco Use Status: Current everyday Tobacco user Substance Use Type: Former Substance User Advance Directives: No Advance Directives Information Provided: Yes Current occupational status: unemployed Physical Exam ED Vital Signs: Vital Signs - 24 hr 07/06/22 11:43 Temperature 98 F Pulse Rate 68 Respiratory Rate 18 Blood Pressure 97/51 L Pulse Oximetry 98 Oxygen Delivery Method Room Air BMI result Body Mass Index 22.8 Const General: cooperative, healthy appearing, comfortable and no acute distress Orientation/consciousness: patient oriented x3 Limitations: no limitations HENMT Head: Yes normal to inspection Ears: hearing grossly normal bilaterally and TM's normal bilaterally General nose exam: Normal external nose present Face and sinus: Yes normal facial exam Mouth: Normal oral and palatal mucosa present Throat: Yes posterior oropharynx normal, Yes tonsils normal and Yes uvula midline Eyes General: appearance normal, both eyes and all related structures Pupils: Equal, round and reactive pupils present Neck Neck: Yes normal visual inspection, Yes full ROM, Yes no lymphadenopathy and Yes no meningeal signs Chest Chest palpation & inspection: normal inspection of the chest Resp Effort & Inspection: normal respiratory effort Auscultation: clear to auscultation bilaterally Cardio Rate: regular rate Rhythm: regular rhythm Peripheral pulses: Peripheral pulses 2+ throughout GI Inspection: Yes normal to inspection General: Yes no CVA tenderness Back/Spine/Pelvis Back: no CVA tenderness Thoracic/Lumbar Spine: thoracic and lumbar spine normal to inspection Skin General skin exam: no rashes or lesions noted Neuro General: patient oriented x3, moves all extremities and no meningeal signs Cranial nerves: Yes Equal, round and reactive pupils present Cognition (Neuro): normal cognition Gait exam (Neuro): Normal gait present Extrem General: Yes normal to inspection Course Course Course Narrative: COVID and strep testing are negative. Likely viral syndrome. Reviewed worrisome signs and symptoms of when to return to the emergency room. Comfortable discharge home. Medical Decision Making MDM Narrative Medical decision making narrative: URI symptoms for 4 days with sick contact. Exam is normal. Vitals are stable. Will send testing for COVID and strep Medical Records Medical records reviewed: Yes I reviewed the patient's medical records. Lab Data Lab results reviewed: Yes I reviewed the patient's lab results. Labs: Lab Results 07/06/22 07/06/22 Range/Units 11:51 11:51 COVID-19 ([facility]NA) Negative (Negative) COVID-19 Clin Com See Note S. pyogenes GrpA GEORGI Negative (Negative) Discharge Plan Discharge Clinical Impression: Acute viral syndrome Patient Disposition: Home, Self-Care Instructions: Viral Syndrome (ED) Additional Instructions: Las pruebas de gripe, covid son negativas. Aumentar l?quidos, descansar [place] motrin o tylenol para el dolor o la fiebre seg?n sea necesario Prescriptions: No Action docusate sodium [Colace] 100 mg capsule 200 mg PO BEDTIME 30 Days Qty: 60 3RF (DME) syringe with needle [BD Luer-Vira Syringe] 3 mL 21 gauge x 1 1/2 syringe See Rx Instructions .MEDSUPPLY Qty: 50 6RF Rx Instructions: As directed sucralfate [Carafate] 100 mg/mL suspension 10 ml PO BID Qty: 420 0RF tamsulosin 0.4 mg capsule 0.4 mg PO DAILY 90 Days Qty: 90 2RF simethicone [Gas Relief Extra Strength] 125 mg tablet,chewable 125 mg PO TID-QID PRN (Reason: for gas) Qty: 90 2RF testosterone cypionate 200 mg/mL oil 200 mg IM Q2W 28 Days Qty: 2 5RF pantoprazole 20 mg tablet,delayed release (DR/EC) 40 mg PO DAILY Qty: 60 6RF clonazepam 1 mg Tablet 1 mg PO DAILY methadone 40 mg Tablet,Soluble 36 mg PO DAILY omeprazole 20 mg Capsule,Delayed Release(Dr/Ec) 20 mg PO DAILY hydroxyzine HCl 25 mg Tablet 25 mg PO TID PRN (Reason: Itching) fluticasone propionate [Flonase Allergy Relief] 50 mcg/actuation [place],Suspension 1 spray INTRANASAL DAILY cholecalciferol (vitamin D3) [Vitamin D3] 50 mcg (2,000 unit) Capsule 50 mcg PO DAILY risperidone [Risperdal] 1 mg tablet 1 mg PO DAILY trazodone 50 mg tablet 25 mg PO BEDTIME mirtazapine 15 mg tablet 15 mg PO BEDTIME fluoxetine 10 mg capsule 20 mg PO QAM nicotine 14 mg/24 hr patch 24 hour 0 patch topical bisacodyl [Dulcolax (bisacodyl)] 5 mg tablet,delayed release (DR/EC) 10 mg PO ONCE 1 Days Qty: 2 0RF Rx Instructions: Take 2 tablets by mouth at 12:00pm the day before your procedure. polyethylene glycol 3350 [Miralax] 17 gram/dose powder 238 g PO ONCE 1 Days Qty: 238 0RF Rx Instructions: Take as directed by mouth the day before your procedure. cetirizine 10 mg tablet 10 mg PO DAILY PRN (Reason: congestion) lidocaine [Lidoderm] 5 % adhesive patch,medicated 0 patch topical ferrous sulfate [FeroSul] 325 mg (65 mg iron) tablet 325 mg PO DAILY ascorbic acid (vitamin C) [Vitamin C] 500 mg tablet 500 mg PO DAILY sennosides [senna] 8.6 mg tablet 17.2 mg PO DAILY (DME) BD Luer-Vira Syringe 1 mL syringe See Rx Instructions .MEDSUPPLY Qty: 30 0RF Rx Instructions: Testosterone injection weekly (DME) BD Regular Bevel Lometa 18 gauge x 1 1/2 needle See Rx Instructions .MEDSUPPLY Qty: 30 0RF Rx Instructions: As directed (DME) BD Regular Bevel Lometa 22 gauge x 1 1/2 needle See Rx Instructions .MEDSUPPLY Qty: 30 0RF Rx Instructions: As directed Referrals: Lilliam Mar NP [Primary Care Provider] - 5 days Interventions: ED Discharge Assessment Last Done: 07/06/22 15:25 Discharge Date/Time: 07/06/22 15:29 Print Language: Upper Sorbian
== END 2022-07-06 15:29 | disposition home or self-care (01) ==
PROVIDERS: Emergency Provider Emergency Medicine; PCP Registered Nurse Community Health
DX: B34.9 Viral infection, unspecified (principal); J02.9 Acute pharyngitis, unspecified; Z20.822 Contact with and (suspected) exposure to COVID-19
CPT/HCPCS: 87635; 87651; 99282; 99283

== ENCOUNTER 2022-10-08 17:07 | Emergency (ER) | payer MEDICAID, SELFPAY ==
--- NOTE | ~2022-10-08 | CT_ITS ---
EXAMINATION: CT head/brain wo IV con CLINICAL INFORMATION: VILLAR, blurry vision COMPARISON: CT head 01/09/2019 TECHNIQUE: Contiguous axial imaging was performed from the skull base to vertex without intravenous contrast. Sagittal and coronal reformatted images were obtained. This CT examination was performed using dose optimization techniques as appropriate, variously including the following: * Automated exposure control * Adjustment of mA and/or kV according to patient size (this includes techniques or standardized protocols for targeted exams where dose is matched to indication/reason for exam; i.e. extremities or head) Use of iterative reconstruction technique DLP: 675 mGy-cm FINDINGS: The ventricles and sulci are normal in size and configuration without significant volume loss or hydrocephalus. There is no abnormal attenuation within the brain parenchyma. No territorial loss of ocampo-white differentiation. No acute intracranial hemorrhage or extra-axial fluid collection. No mass lesion, significant mass effect, or herniation pattern. The orbits are grossly normal. Paranasal sinuses and mastoid air cells are well aerated. Sclerotic wall thickening of the left maxillary sinus leung suggestive of chronic sinusitis with resolved previous complete opacification. Osseous structures are intact. CT/CT head/brain wo IV con IMPRESSION: 1. No acute intracranial abnormality. 2. Sclerotic wall thickening of the left maxillary sinus leung suggestive of chronic sinusitis with resolved previous complete opacification
--- NOTE | 2022-10-08 17:09 | ED_ITS ---
HPI - Headache General Chief Complaint: Headache <JONNY Reyes - Last Filed: 10/08/22 17:17> Stated Complaint: Migraine/ nausea <JONNY Reyes - Last Filed: 10/08/22 17:17> Time Seen by Provider: 10/08/22 20:06 <JONNY Reyes - Last Filed: 10/08/22 17:17> Source: patient <Ayaka Pruett NP - Last Filed: 10/09/22 01:16> Mode of arrival: ambulatory <Ayaka Pruett NP - Last Filed: 10/09/22 01:16> Limitations: language barrier <Ayaka Pruett NP - Last Filed: 10/09/22 01:16> History of Present Illness HPI Narrative: 52-year-old male presents with 1 day of headache, blurred vision, photosensitivity, and 10/10 pain. States that he took Tylenol, Motrin, and his 's migraine medication with poor effect. Does not report any fevers or chills, is able to move all of his extremities, does not report trauma, loss of balance or weakness. <Ayaka Pruett NP - Last Filed: 10/09/22 01:16> MD elicited complaint: headache and migraine <Ayaka Pruett NP - Last Filed: 10/09/22 01:16> Onset (ago): day(s) (1) <Ayaka Pruett NP - Last Filed: 10/09/22 01:16> Onset description: gradually <Ayaka Pruett NP - Last Filed: 10/09/22 01:16> Location: diffuse <Ayaka Pruett NP - Last Filed: 10/09/22 01:16> Severity: severe <Ayaka Pruett NP - Last Filed: 10/09/22 01:16> Pain scale (0-10): 10 <Ayaka Pruett NP - Last Filed: 10/09/22 01:16> Quality & Timing: throbbing, pressure, progressively worsening and first headache <Ayaka Pruett NP - Last Filed: 10/09/22 01:16> Exacerbating factors: light and noise <Ayaka Pruett NP - Last Filed: 10/09/22 01:16> Relieving factors: nothing <Ayaka Pruett NP - Last Filed: 10/09/22 01:16> Context: occurred at rest <Ayaka Pruett NP - Last Filed: 10/09/22 01:16> Associated symptoms: photophobia and sensitivity to sound <Ayaka Pruett NP - Last Filed: 10/09/22 01:16> Treatments prior to arrival: acetaminophen, ibuprofen and migraine medication <Ayaka Pruett NP - Last Filed: 10/09/22 01:16> Related Data Home Medications: Home Medications Medication Instructions Recorded Confirmed cholecalciferol (vitamin D3) 50 50 mcg PO DAILY 06/30/20 06/28/22 mcg (2,000 unit) capsule (Vitamin D3) clonazepam 1 mg tablet 1 mg PO DAILY 06/30/20 06/28/22 fluticasone propionate 50 1 spray intranasal DAILY 06/30/20 06/28/22 mcg/actuation nasal spray,suspension (Flonase Allergy Relief) hydroxyzine HCl 25 mg tablet 25 mg PO TID PRN Itching 06/30/20 06/28/22 methadone 40 mg soluble tablet 36 mg PO DAILY 06/30/20 06/28/22 omeprazole 20 mg capsule,delayed 20 mg PO DAILY 06/30/20 06/28/22 release fluoxetine 10 mg capsule 20 mg PO QAM 10/20/21 06/28/22 mirtazapine 15 mg tablet 15 mg PO BEDTIME 10/20/21 06/28/22 trazodone 50 mg tablet 25 mg PO BEDTIME 10/20/21 06/28/22 ascorbic acid (vitamin C) 500 mg 500 mg PO DAILY 12/16/21 06/28/22 tablet (Vitamin C) ferrous sulfate 325 mg (65 mg 325 mg PO DAILY 12/16/21 06/28/22 iron) tablet (FeroSul) lidocaine 5 % topical patch 0 patch topical 12/16/21 06/28/22 (Lidoderm) sennosides 8.6 mg tablet (senna) 17.2 mg PO DAILY 12/16/21 06/28/22 cetirizine 10 mg tablet 10 mg PO DAILY PRN congestion 05/18/22 06/28/22 risperidone 1 mg tablet (Risperdal) 1 mg PO DAILY 05/18/22 06/28/22 nicotine 14 mg/24 hr daily 0 patch topical 06/22/22 06/28/22 transdermal patch Previous Rx's Medication Instructions Recorded docusate sodium 100 mg capsule 200 mg PO BEDTIME 30 days #60 caps 06/03/20 (Colace) syringe with needle 3 mL 21 gauge #50 ea 01/28/21 x 1 1/2 (BD Luer-Vira Syringe) needle (disp) 22 G 22 gauge x 1 #30 ea 12/16/21 1/2 (BD Regular Bevel [place]) syringe (disposable) 1 mL (BD #30 ea 12/16/21 Luer-Vira Syringe) sucralfate 100 mg/mL oral 10 ml PO BID #420 mL 12/26/21 suspension (Carafate) simethicone 125 mg chewable tablet 125 mg PO TID-QID PRN for gas #90 03/07/22 (Gas Relief Extra Strength) tabs pantoprazole 20 mg tablet,delayed 40 mg PO DAILY #60 tabs 05/09/22 release bisacodyl 5 mg tablet,delayed 10 mg PO ONCE colonoscopy prep 1 05/18/22 release (Dulcolax (bisacodyl)) day #2 tabs polyethylene glycol 3350 17 238 g PO ONCE 1 day #238 grams 05/18/22 gram/dose oral powder (Miralax) tamsulosin 0.4 mg capsule 0.8 mg PO DAILY 90 days #180 caps 09/19/22 testosterone cypionate 200 mg/mL 200 mg IM Q2W 28 days #2 mL 10/03/22 intramuscular oil needle (disp) 18 G 18 gauge x 1 #30 ea 10/04/22 1/2 (BD Regular [place]vel [place]) <JONNY Reyes - Last Filed: 10/08/22 17:17> Allergies/Adverse Reactions: Allergies Allergy/AdvReac Type Severity Reaction Status Date / Time No Known Drug Allergies Allergy Mild Unknown Verified 10/08/22 17:12 SEAFOOD Allergy Severe ANAPHYLAXIS Uncoded 06/24/22 16:47 shellfish Allergy Unknown Anaphylaxis Uncoded 06/24/22 16:47 <JONNY Reyes - Last Filed: 10/08/22 17:17> Review of Systems Review of Systems: Constitutional: No Fever, No Chills Cardiovascular: No Chest Pain, No SOB Respiratory: No Cough, No Dyspnea Gastrointestinal: No Nausea, No Vomiting, No Diarrhea, No abdominal Pain Genitourinary: No Dysuria, No Hematuria Musculoskeletal: No Myalgias, No Joint Swelling Skin: No Skin lacerations, No rash Neuro: No Weakness, No Numbness, No Paresthesias, No Dizziness, Positive Headache <Ayaka Pruett NP - Last Filed: 10/09/22 01:16> Yes all other systems are reviewed and are negative <Ayaka Pruett NP - Last Filed: 10/09/22 01:16> [facility] Past Medical History Attestation statement: The following information was validated with the patient. <Ayaka Pruett NP - Last Filed: 10/09/22 01:16> Source: old records reviewed <Ayaka Pruett NP - Last Filed: 10/09/22 01:16> Medical History: Medical History Anemia Anxiety and depression BPH (benign prostatic hyperplasia) Erectile dysfunction GERD (gastroesophageal reflux disease) History of Helicobacter pylori infection HTN (hypertension) Hx of hepatitis C Hx of substance abuse Hx: UTI (urinary tract infection) Hypogonadism Murmur Smoker Spinal pain <JONNY Reyes - Last Filed: 10/08/22 17:17> Surgical History: Surgical History Hx of cystoscopy <JONNY Reyes - Last Filed: 10/08/22 17:17> Family History Family History: Family History Mother Diabetes <JONNY Reyes - Last Filed: 10/08/22 17:17> Social History Social History: Social History Alcohol intake: former Patient Tobacco Use Status: Current everyday Tobacco user Substance Use Type: Former Substance User Advance Directives: No Advance Directives Information Provided: No Current occupational status: unemployed <JONNY Reyes - Last Filed: 10/08/22 17:17> Physical Exam Vital Signs: Vital Signs: Last Vital Signs Temp 98.8 F 10/08/22 20:11 Pulse 70 10/08/22 20:11 Resp 14 10/08/22 20:11 BP 114/59 L 10/08/22 20:11 Pulse Ox 98 10/08/22 20:11 O2 Del Method 10/08/22 20:11 BMI result Body Mass Index 21.9 <JONNY Reyes - Last Filed: 10/08/22 17:17> Vital Signs: Last Vital Signs Temp 98.8 F 10/08/22 20:11 Pulse 70 10/08/22 20:11 Resp 14 10/08/22 20:11 BP 114/59 L 10/08/22 20:11 Pulse Ox 98 10/08/22 20:11 O2 Del Method 10/08/22 20:11 BMI result Body Mass Index 21.9 <Ayaka Pruett NP - Last Filed: 10/09/22 01:16> Appearance: Alert. Oriented X3. No acute distress. Eyes: Pupils equal, round and reactive to light. ENT: Pharynx normal. Neck: Normal inspection. Neck supple. CVS: Normal heart rate and rhythm. Pulses normal. Respiratory: No respiratory distress. Breath sounds normal. Abdomen: Soft and nontender. Skin: Skin warm and dry. Normal skin color. Normal skin turgor. Extremities: No lower extremity edema. Gait well-balanced well coordinated. Neuro: No motor deficit. No sensory deficit. cranial nerves 2-12 intact <Ayaka Pruett NP - Last Filed: 10/09/22 01:16> Course Course Course Narrative: RME--52-year-old male with past medical history of anemia, BPH, GERD, hepatitis-C, substance abuse, anxiety, depression, presenting to the ED complaining of headache since last night. Took Advil w/o improvement. Admits to assoc nausea and blurry vision. Patient is poor historian. Ambulating with steady gait Labs, Head CT, COVID/flu & PO Fioricet ordered in triage <JONNY Reyes - Last Filed: 10/08/22 17:17> RME--52-year-old male with past medical history of anemia, BPH, GERD, hepatitis-C, substance abuse, anxiety, depression, presenting to the ED complaining of headache since last night. Took Advil w/o improvement. Admits to assoc nausea and blurry vision. Patient is poor historian. Ambulating with steady gait Labs, Head CT, COVID/flu & PO Fioricet ordered in triage 52-year-old male presents with 1st migraine headache of his life, physical exam is unremarkable, neurologically intact, Azam coma Scale 15, NIH stroke scale 0. Patient is on methadone. Patient is demanding, requesting pain medication at this time, give Toradol, Reglan, sumatriptan, Benadryl, fluids. Will order CT scan of his head as this is the 1st migraine of his life . no nuchal rigidity. No mastoid tenderness. No vertebral tenderness or step-offs. No meningeal signs. Patient is afebrile and nontoxic. Vital signs are within normal limits. 21:28, patient states to feel better, CT scan indicates sclerotic wall thickening of the left maxillary sinus consistent with chronic sinusitis. Patient Demanding to be discharged home. would like to be discharged prior to fluid completion. Patient understands follow-up care physician for migraine workup. A lead software engineer utilized for all correspondence. Google Translate utilized for discharge instructions. <Ayaka Pruett NP - Last Filed: 10/09/22 01:16> Medications Administered Discontinued Medications Generic Name Dose Route Start Last Admin Trade Name Damien PRN Reason Stop Dose Admin Acetaminophen/Butalbital/Caffeine 2 tab 10/08/22 17:13 10/08/22 20:24 Butalb/Acetamin/Caff 50/325/40 Tablet PO 10/08/22 17:14 2 tab ONCE ONE Administration Diphenhydramine HCl 25 mg 10/08/22 20:09 10/08/22 20:24 Diphenhydramine Hcl 50 Mg/Ml Vial IVPUSH 10/08/22 20:10 Not Given ONCE ONE Sodium Chloride 1,000 mls @ 999 mls/hr 10/08/22 20:15 10/08/22 21:52 Ns IVCONT 10/08/22 21:15 Infused .Q1H1M MARIA G Infusion Metoclopramide HCl 10 mg 10/08/22 20:09 10/08/22 20:24 Metoclopramide Hcl 10 Mg/2 Ml Vial IVPUSH 10/08/22 20:10 10 mg ONCE ONE Administration Sumatriptan Succinate 6 mg 10/08/22 20:09 10/08/22 20:23 Sumatriptan Succinate 6 Mg/0.5 Ml Vial SUBCUT 10/08/22 20:10 6 mg ONCE ONE Administration <JONNY Reyes - Last Filed: 10/08/22 17:17> Medications Administered Discontinued Medications Generic Name Dose Route Start Last Admin Trade Name Damien PRN Reason Stop Dose Admin Acetaminophen/Butalbital/Caffeine 2 tab 10/08/22 17:13 10/08/22 20:24 Butalb/Acetamin/Caff 50/325/40 Tablet PO 10/08/22 17:14 2 tab ONCE ONE Administration Diphenhydramine HCl 25 mg 10/08/22 20:09 10/08/22 20:24 Diphenhydramine Hcl 50 Mg/Ml Vial IVPUSH 10/08/22 20:10 Not Given ONCE ONE Sodium Chloride 1,000 mls @ 999 mls/hr 10/08/22 20:15 10/08/22 21:52 Ns IVCONT 10/08/22 21:15 Infused .Q1H1M MARIA G Infusion Metoclopramide HCl 10 mg 10/08/22 20:09 10/08/22 20:24 Metoclopramide Hcl 10 Mg/2 Ml Vial IVPUSH 10/08/22 20:10 10 mg ONCE ONE Administration Sumatriptan Succinate 6 mg 10/08/22 20:09 10/08/22 20:23 Sumatriptan Succinate 6 Mg/0.5 Ml Vial SUBCUT 10/08/22 20:10 6 mg ONCE ONE Administration <Ayaka Pruett NP - Last Filed: 10/09/22 01:16> Medical Decision Making Differential Diagnosis Differential Diagnoses: The differential diagnosis associated with the presentation includes <Ayaka Pruett NP - Last Filed: 10/09/22 01:16> Migraine, CVA, subdural <Ayaka Pruett NP - Last Filed: 10/09/22 01:16> Lab Data MDM Lab Attestation statement: I reviewed the patient's lab results. <Ayaka Pruett NP - Last Filed: 10/09/22 01:16> Result Diagrams: 10/08/22 17:55 10/08/22 17:55 <JONNY Reyes - Last Filed: 10/08/22 17:17> Labs: Lab Results 10/08/22 10/08/22 10/08/22 Range/Units 17:55 17:55 17:55 WBC 11.7 H (4.8-10.8) X10*3/uL RBC 4.46 L (4.60-5.80) X10*6/uL Hgb 14.6 (14.0-18.0) g/dl Hct 42.4 (42.0-52.0) % MCV 95.1 (80.0-98.0) fL MCH 32.7 (27.0-33.0) pg MCHC 34.4 (31.0-36.0) g/dl RDW 12.5 (11.0-16.0) % Plt Count 171 (160-400) X10*3/uL MPV 11.7 (9.4-12.4) fL Immature Gran % (Auto) 0.3 (0.0-0.4) % Neut % (Auto) 92.1 H (45-73) % Lymph % (Auto) 5.6 L (20-40) % [place] % (Auto) 1.6 L (2-11) % Eos % (Auto) 0.1 (0-4) % Baso % (Auto) 0.3 (0-2) % Lymph # (Auto) 0.7 L (1.2-4.9) X10*3/uL [place] # (Auto) 0.2 (0.1-1.2) X10*3/uL Eos # (Auto) 0.0 (0.0-0.4) X10*3/uL Baso # (Auto) 0.0 (0.0-0.2) X10*3/uL Abs Immat Gran (auto) 0.04 H (0.00-0.03) X10*3/uL Absolute Neuts (auto) 10.8 H (2.0-8.3) x10*3/uL Absolute Nucleated RBC 0.000 (0.0-0.012) X10*3/uL Nucleated RBC % (auto) 0.0 (0.0-0.2) /100WBC Sodium 137 (135-145) mmol/L Potassium 4.4 (3.3-5.1) mmol/L Chloride 99 (96-108) mmol/L Carbon Dioxide 28 (22-29) mmol/L Anion Gap 14 (12-20) BUN 18 H (9-16) mg/dL Creatinine 1.06 (0.5-1.4) mg/dL Estim Creat Clear Calc 71.5 Estimated GFR > 60 Random Glucose 122 H (60-115) mg/dL Calcium 9.4 (8.4-10.2) mg/dL Magnesium 1.7 (1.6-2.6) mg/dL Total Bilirubin 0.9 (0.0-1.0) mg/dL Direct Bilirubin 0.2 (0.0-0.5) mg/dL AST 20 (5-37) U/L ALT 20 (0-40) U/L Alkaline Phosphatase 54 (39-117) U/L Total Protein 7.4 (6.5-8.0) g/dL Albumin 4.6 (3.5-5.0) g/dL COVID-19 (MEGAN) (Negative) COVID-19 Clin Com Influenza Type A (GEORGI) Negative (Negative) Influenza Type B (GEORGI) Negative (Negative) Influenza A & B Note See Note 10/08/22 Range/Units 17:55 WBC (4.8-10.8) X10*3/uL RBC (4.60-5.80) X10*6/uL Hgb (14.0-18.0) g/dl Hct (42.0-52.0) % MCV (80.0-98.0) fL MCH (27.0-33.0) pg MCHC (31.0-36.0) g/dl RDW (11.0-16.0) % Plt Count (160-400) X10*3/uL MPV (9.4-12.4) fL Immature Gran % (Auto) (0.0-0.4) % Neut % (Auto) (45-73) % Lymph % (Auto) (20-40) % [place] % (Auto) (2-11) % Eos % (Auto) (0-4) % Baso % (Auto) (0-2) % Lymph # (Auto) (1.2-4.9) X10*3/uL [facility] # (Auto) (0.1-1.2) X10*3/uL Eos # (Auto) (0.0-0.4) X10*3/uL Baso # (Auto) (0.0-0.2) X10*3/uL Abs Immat Gran (auto) (0.00-0.03) X10*3/uL Absolute Neuts (auto) (2.0-8.3) x10*3/uL Absolute Nucleated RBC (0.0-0.012) X10*3/uL Nucleated RBC % (auto) (0.0-0.2) /100WBC Sodium (135-145) mmol/L Potassium (3.3-5.1) mmol/L Chloride (96-108) mmol/L Carbon Dioxide (22-29) mmol/L Anion Gap (12-20) BUN (9-16) mg/dL Creatinine (0.5-1.4) mg/dL Estim Creat Clear Calc Estimated GFR Random Glucose (60-115) mg/dL Calcium (8.4-10.2) mg/dL Magnesium (1.6-2.6) mg/dL Total Bilirubin (0.0-1.0) mg/dL Direct Bilirubin (0.0-0.5) mg/dL AST (5-37) U/L ALT (0-40) U/L Alkaline Phosphatase (39-117) U/L Total Protein (6.5-8.0) g/dL Albumin (3.5-5.0) g/dL COVID-19 (MEGAN) Negative (Negative) COVID-19 Clin Com See Note Influenza Type A (GEORGI) (Negative) Influenza Type B (GEORGI) (Negative) Influenza A & B Note <JONNY Reyes - Last Filed: 10/08/22 17:17> Lab Results 10/08/22 10/08/22 10/08/22 Range/Units 17:55 17:55 17:55 WBC 11.7 H (4.8-10.8) X10*3/uL RBC 4.46 L (4.60-5.80) X10*6/uL Hgb 14.6 (14.0-18.0) g/dl Hct 42.4 (42.0-52.0) % MCV 95.1 (80.0-98.0) fL MCH 32.7 (27.0-33.0) pg MCHC 34.4 (31.0-36.0) g/dl RDW 12.5 (11.0-16.0) % Plt Count 171 (160-400) X10*3/uL MPV 11.7 (9.4-12.4) fL Immature Gran % (Auto) 0.3 (0.0-0.4) % Neut % (Auto) 92.1 H (45-73) % Lymph % (Auto) 5.6 L (20-40) % [place] % (Auto) 1.6 L (2-11) % Eos % (Auto) 0.1 (0-4) % Baso % (Auto) 0.3 (0-2) % Lymph # (Auto) 0.7 L (1.2-4.9) X10*3/uL [place] # (Auto) 0.2 (0.1-1.2) X10*3/uL Eos # (Auto) 0.0 (0.0-0.4) X10*3/uL Baso # (Auto) 0.0 (0.0-0.2) X10*3/uL Abs Immat Gran (auto) 0.04 H (0.00-0.03) X10*3/uL Absolute Neuts (auto) 10.8 H (2.0-8.3) x10*3/uL Absolute Nucleated RBC 0.000 (0.0-0.012) X10*3/uL Nucleated RBC % (auto) 0.0 (0.0-0.2) /100WBC Sodium 137 (135-145) mmol/L Potassium 4.4 (3.3-5.1) mmol/L Chloride 99 (96-108) mmol/L Carbon Dioxide 28 (22-29) mmol/L Anion Gap 14 (12-20) BUN 18 H (9-16) mg/dL Creatinine 1.06 (0.5-1.4) mg/dL Estim Creat Clear Calc 71.5 Estimated GFR > 60 Random Glucose 122 H (60-115) mg/dL Calcium 9.4 (8.4-10.2) mg/dL Magnesium 1.7 (1.6-2.6) mg/dL Total Bilirubin 0.9 (0.0-1.0) mg/dL Direct Bilirubin 0.2 (0.0-0.5) mg/dL AST 20 (5-37) U/L ALT 20 (0-40) U/L Alkaline Phosphatase 54 (39-117) U/L Total Protein 7.4 (6.5-8.0) g/dL Albumin 4.6 (3.5-5.0) g/dL COVID-19 (MEGAN) (Negative) COVID-19 Clin Com Influenza Type A (GEORGI) Negative (Negative) Influenza Type B (GEORGI) Negative (Negative) Influenza A & B Note See Note 10/08/22 Range/Units 17:55 WBC (4.8-10.8) X10*3/uL RBC (4.60-5.80) X10*6/uL Hgb (14.0-18.0) g/dl Hct (42.0-52.0) % MCV (80.0-98.0) fL MCH (27.0-33.0) pg MCHC (31.0-36.0) g/dl RDW (11.0-16.0) % Plt Count (160-400) X10*3/uL MPV (9.4-12.4) fL Immature Gran % (Auto) (0.0-0.4) % Neut % (Auto) (45-73) % Lymph % (Auto) (20-40) % [facility] % (Auto) (2-11) % Eos % (Auto) (0-4) % Baso % (Auto) (0-2) % Lymph # (Auto) (1.2-4.9) X10*3/uL [facility] # (Auto) (0.1-1.2) X10*3/uL Eos # (Auto) (0.0-0.4) X10*3/uL Baso # (Auto) (0.0-0.2) X10*3/uL Abs Immat Gran (auto) (0.00-0.03) X10*3/uL Absolute Neuts (auto) (2.0-8.3) x10*3/uL Absolute Nucleated RBC (0.0-0.012) X10*3/uL Nucleated RBC % (auto) (0.0-0.2) /100WBC Sodium (135-145) mmol/L Potassium (3.3-5.1) mmol/L Chloride (96-108) mmol/L Carbon Dioxide (22-29) mmol/L Anion Gap (12-20) BUN (9-16) mg/dL Creatinine (0.5-1.4) mg/dL Estim Creat Clear Calc Estimated GFR Random Glucose (60-115) mg/dL Calcium (8.4-10.2) mg/dL Magnesium (1.6-2.6) mg/dL Total Bilirubin (0.0-1.0) mg/dL Direct Bilirubin (0.0-0.5) mg/dL AST (5-37) U/L ALT (0-40) U/L Alkaline Phosphatase (39-117) U/L Total Protein (6.5-8.0) g/dL Albumin (3.5-5.0) g/dL COVID-19 (MEGAN) Negative (Negative) COVID-19 Clin Com See Note Influenza Type A (GEORGI) (Negative) Influenza Type B (GEORGI) (Negative) Influenza A & B Note <Ayaka Pruett NP - Last Filed: 10/09/22 01:16> Independent Interpretation I performed an independent interpretation of an: CT Scan <Ayaka Pruett NP - Last Filed: 10/09/22 01:16> Radiology Impression Discussion of test interpretation with radiology: I have reviewed the radiologist's reading. <Ayaka Pruett NP - Last Filed: 10/09/22 01:16> Radiologist Impression: FINDINGS: The ventricles and sulci are normal in size and configuration without significant volume loss or hydrocephalus.? There is no abnormal attenuation within the brain parenchyma.? No territorial loss of ocampo-white differentiation. No acute intracranial hemorrhage or extra-axial fluid collection.? No mass lesion, significant mass effect, or herniation pattern. The orbits are grossly normal.? Paranasal sinuses and mastoid air cells are well aerated. Sclerotic wall thickening of the left maxillary sinus leung suggestive of chronic sinusitis with resolved previous complete opacification. Osseous structures are intact. CT/CT head/brain wo IV con IMPRESSION: 1.? No acute intracranial abnormality. 2.? Sclerotic wall thickening of the left maxillary sinus leung suggestive of chronic sinusitis with resolved previous complete opacification <Ayaka Pruett NP - Last Filed: 10/09/22 01:16> Independent Historian Clinical information obtained from an independent historian. History obtained from or confirmed by: Spouse <Ayaka Pruett NP - Last Filed: 10/09/22 01:16> External Record Review External record reviewed: Outpatient record and Prior outpatient labs <Ayaka Pruett NP - Last Filed: 10/09/22 01:16> Discharge Plan Discharge Clinical Impression: Migraine, Sinusitis <JONNY Reyes - Last Filed: 10/08/22 17:17> Patient Disposition: Home, Self-Care <JONNY Reyes - Last Filed: 10/08/22 17:17> Instructions: Sinusitis (ED), Migraine Headache (ED) <JONNY Reyes - Last Filed: 10/08/22 17:17> Additional Instructions: Le evaluaron por migra?a. Por favor, leanne un seguimiento con el m?dico de atenci?n primaria seg?n sea necesario. La tomograf?a computarizada de la kierra es negativa para hallazgos agudos que requieren leonarda intervenci?n urgente. Susannah valores de laboratorio est?n dentro de los l?mites normales. Gretchen por elegir marcelino departamento de emergencias para melara evaluaci?n. Por favor, leanne un seguimiento con el m?dico de atenci?n primaria seg?n sea necesario. Regrese al departamento de emergencias por cualquier s?ntoma nuevo, preocupante o que empeore. You were evaluated for migraine headache. Please follow-up with primary care physician as needed. CT scan of the head is negative for acute findings requiring emergent intervention. Your lab values are within normal limits. Thank you for choosing this emergency department for evaluation. Please follow-up with primary care physician as needed. Return to the emergency department for any new, concerning, or worsening symptoms. <JONNY Reyes - Last Filed: 10/08/22 17:17> Prescriptions: No Action docusate sodium [Colace] 100 mg capsule 200 mg PO BEDTIME 30 Days Qty: 60 3RF (DME) syringe with needle [BD Luer-Vira Syringe] 3 mL 21 gauge x 1 1/2 syringe See Rx Instructions .MEDSUPPLY Qty: 50 6RF Rx Instructions: As directed sucralfate [Carafate] 100 mg/mL suspension 10 ml PO BID Qty: 420 0RF simethicone [Gas Relief Extra Strength] 125 mg tablet,chewable 125 mg PO TID-QID PRN (Reason: for gas) Qty: 90 2RF pantoprazole 20 mg tablet,delayed release (DR/EC) 40 mg PO DAILY Qty: 60 6RF tamsulosin 0.4 mg capsule 0.8 mg PO DAILY 90 Days Qty: 180 1RF testosterone cypionate 200 mg/mL oil 200 mg IM Q2W 28 Days Qty: 2 5RF (DME) BD Regular Bevel [place] 18 gauge x 1 1/2 needle See Rx Instructions .MEDSUPPLY Qty: 30 0RF Rx Instructions: As directed clonazepam 1 mg Tablet 1 mg PO DAILY methadone 40 mg Tablet,Soluble 36 mg PO DAILY omeprazole 20 mg Capsule,Delayed Release(Dr/Ec) 20 mg PO DAILY hydroxyzine HCl 25 mg Tablet 25 mg PO TID PRN (Reason: Itching) fluticasone propionate [Flonase Allergy Relief] 50 mcg/actuation [place],Suspension 1 spray INTRANASAL DAILY cholecalciferol (vitamin D3) [Vitamin D3] 50 mcg (2,000 unit) Capsule 50 mcg PO DAILY risperidone [Risperdal] 1 mg tablet 1 mg PO DAILY trazodone 50 mg tablet 25 mg PO BEDTIME mirtazapine 15 mg tablet 15 mg PO BEDTIME fluoxetine 10 mg capsule 20 mg PO QAM nicotine 14 mg/24 hr patch 24 hour 0 patch topical bisacodyl [Dulcolax (bisacodyl)] 5 mg tablet,delayed release (DR/EC) 10 mg PO ONCE 1 Days Qty: 2 0RF Rx Instructions: Take 2 tablets by mouth at 12:00pm the day before your procedure. polyethylene glycol 3350 [Miralax] 17 gram/dose powder 238 g PO ONCE 1 Days Qty: 238 0RF Rx Instructions: Take as directed by mouth the day before your procedure. cetirizine 10 mg tablet 10 mg PO DAILY PRN (Reason: congestion) lidocaine [Lidoderm] 5 % adhesive patch,medicated 0 patch topical ferrous sulfate [FeroSul] 325 mg (65 mg iron) tablet 325 mg PO DAILY ascorbic acid (vitamin C) [Vitamin C] 500 mg tablet 500 mg PO DAILY sennosides [senna] 8.6 mg tablet 17.2 mg PO DAILY (DME) BD Luer-Vira Syringe 1 mL syringe See Rx Instructions .MEDSUPPLY Qty: 30 0RF Rx Instructions: Testosterone injection weekly (DME) BD Regular Bevel [place] 22 gauge x 1 1/2 needle See Rx Instructions .MEDSUPPLY Qty: 30 0RF Rx Instructions: As directed <JONNY Reyes - Last Filed: 10/08/22 17:17> Interventions: ED Discharge Assessment Last Done: 10/08/22 22:10 <JONNY Reyes - Last Filed: 10/08/22 17:17> Discharge Date/Time: 10/08/22 22:11 <JONNY Reyes - Last Filed: 10/08/22 17:17>
[2022-10-08 17:13] VITALS: BP 123/78; PULSE 75; RESP 18; TEMP 36.1; O2SAT 99; BMI 21.9
[2022-10-08 17:59] LABS: MANUAL DIFF FLAG NO
[2022-10-08 18:03] LABS: Basophils Percent Auto 0.3 % (0-2); Eosinophils Percent Auto 0.1 % (0-4); Hematocrit 42.4 % (42.0-52.0); Hemoglobin 14.6 g/dl (14.0-18.0); Imm Gran Abs Auto 0.04 X10*3/uL (0.00-0.03); Imm Gran Pct Auto 0.3 % (0.0-0.4); Lymphocytes Absolute Auto 0.7 X10*3/uL (1.2-4.9); Lymphocytes Percent Auto 5.6 % (20-40); Mean Corpuscular HGB Conc 34.4 g/dl (31.0-36.0); Mean Corpuscular Hemoglobin 32.7 pg (27.0-33.0); Mean Corpuscular Volume 95.1 fL (80.0-98.0); Mean Platelet Volume 11.7 fL (9.4-12.4); Monocytes Absolute Auto 0.2 X10*3/uL (0.1-1.2); Monocytes Percent Auto 1.6 % (2-11); Neutrophils Absolute Auto 10.8 x10*3/uL (2.0-8.3); Neutrophils Percent Auto 92.1 % (45-73); Platelet Count 171 X10*3/uL (160-400); Red Blood Count 4.46 X10*6/uL (4.60-5.80); Red Cell Distribution Width 12.5 % (11.0-16.0); SCAN SMEAR FLAG 1; White Blood Count 11.7 X10*3/uL (4.8-10.8)
[2022-10-08 18:18] LABS: Alanine Aminotransferase 20 U/L (0-40); Albumin Level 4.6 g/dL (3.5-5.0); Alkaline Phosphatase 54 U/L (39-117); Anion Gap 14 (12-20); Aspartate Amino Transferase 20 U/L (5-37); Bilirubin Direct 0.2 mg/dL (0.0-0.5); Bilirubin Total 0.9 mg/dL (0.0-1.0); Blood Urea Nitrogen 18 mg/dL (9-16); COVID-19 Test Negative (Negative); Calcium 9.4 mg/dL (8.4-10.2); Carbon Dioxide 28 mmol/L (22-29); Chloride 99 mmol/L (96-108); Creatinine Clr Calc Pharmacy 71.5; Estimated Glomerular Filt Rate > 60; Glucose Random 122 mg/dL (60-115); IDNOW Serial# 16C4AD1C; IDNOW Serial# BCCEAD1C; Influenza A Negative (Negative); Influenza B2 Negative (Negative); Magnesium 1.7 mg/dL (1.6-2.6); Potassium 4.4 mmol/L (3.3-5.1); Sodium 137 mmol/L (135-145); Total Protein 7.4 g/dL (6.5-8.0)
[2022-10-08 20:11] VITALS: BP 114/59; PULSE 70; RESP 14; TEMP 37.1; O2SAT 98
[2022-10-08] MEDS: SUMAtriptan succinate 6 MG/0.5 ML VIAL SUBCUT (20:23)
[2022-10-08] MEDS: Metoclopramide HCl 10 MG/2 ML VIAL IVPUSH (20:24)
[2022-10-08] MEDS: Butalb/Acetamin/Caff 50/325/40 TABLET 2 TAB PO (20:24)
[2022-10-08] MEDS: 0.9 % Sodium Chloride 1,000 ML 999 ML IVCONT (20:25)
--- NOTE | 2022-10-08 21:52 | PC.NURSE ---
IV line removed with no complications. Discharge instructions reviewed with pt. Pt verbalizes understanding.
== END 2022-10-08 22:11 | disposition home or self-care (01) ==
PROVIDERS: Physician Assistant; Emergency Provider Internal Medicine
DX: G43.909 Migraine, unspecified, not intractable, without status migrainosus (principal); J32.9 Chronic sinusitis, unspecified; H53.8 Other visual disturbances; Z20.828 Contact with and (suspected) exposure to other viral communicable diseases; Z20.822 Contact with and (suspected) exposure to COVID-19; Z79.899 Other long term (current) drug therapy
CPT/HCPCS: 36415; 70450; 80048; 80076; 83735; 85025; 87502; 87635; 96361; 96372; 96374; 96375; 99284; J2765; J3030

== ENCOUNTER 2023-01-10 10:54 | Outpatient (REF) | payer MEDICAID, SELFPAY ==
--- NOTE | ~2023-01-10 | US_ITS ---
EXAMINATION: US SCROTUM CLINICAL INFORMATION: Testicular hypofunction. COMPARISON: None available. TECHNIQUE: A sonogram of the scrotum was performed assessing ocampo-scale appearance and color Doppler flow. Spectral Doppler analysis of the arterial and venous flow were performed in the testes bilaterally. FINDINGS: RIGHT: Right testicle measures 3.8 x 1.7 x 2.8 cm, volume 9.5 mL. No focal testicular parenchymal lesions are visualized. Spectral Doppler analysis of the arterial and venous flow is normal in the right testis. Right epididymal head is normal in size. There is a small hydrocele present. Right epididymal Doppler flow is reported as increased but on imaging does not show enlargement or adjacent edema. It is hypoechoic. Small epididymal head cyst present with largest measuring 5 mm in diameter and containing a thin septum.. LEFT: Left testicle measures 3.7 x 1.7 x 2.5 cm, volume 8.2 mL. No focal testicular parenchymal lesions are visualized. Spectral Doppler analysis of the arterial and venous flow is normal in the left testis. Left epididymal head is normal in size. There is a small hydrocele present. There are small but minimal head cysts present. Left epididymal Doppler flow is reported as increased but the epididymis does not appear to be enlarged and no surrounding edema is present. US/US scrotum IMPRESSION: No testicular abnormality appreciated. Small hydroceles. Imaging and report stating increased vascular flow within the epididymides bilaterally however both epididymides are homogeneously hypoechoic without adjacent edema and I cannot be totally sure that this represents acute epididymitis.
== END 2023-01-10 10:55 | disposition home or self-care (01) ==
LOC: HO.US 10:54
PROVIDERS: Visit Provider Nurse Practitioner Family
DX: E29.1 Testicular hypofunction (principal); N50.812 Left testicular pain; R10.13 Epigastric pain
CPT/HCPCS: 76870

== ENCOUNTER → 2023-01-12 10:47 | Outpatient (BNVA) | payer MEDICAID, SELFPAY | PROVIDERS: Visit Provider Nurse Practitioner Family | DX: N50.82 Scrotal pain (principal) | CPT/HCPCS: 99212 ==

== ENCOUNTER 2023-02-26 12:47 | Outpatient (REF) | payer MEDICAID, SELFPAY ==
[2023-02-26 14:17] LABS: Hematocrit 41.7 % (42.0-52.0); Hemoglobin 13.9 g/dl (14.0-18.0); Mean Corpuscular HGB Conc 33.3 g/dl (31.0-36.0); Mean Corpuscular Volume 95.9 fL (80.0-98.0); Mean Platelet Volume 12.2 fL (9.4-12.4); Platelet Count 135 X10*3/uL (160-400); Red Blood Count 4.35 X10*6/uL (4.60-5.80); Red Cell Distribution Width 13.6 % (11.0-16.0); White Blood Count 5.4 X10*3/uL (4.8-10.8)
[2023-03-03 15:03] LABS: Testosterone, Total 299 ng/dL (250-1100)
== END 2023-02-26 12:48 | disposition home or self-care (01) ==
LOC: HO.10HDL 12:47
PROVIDERS: Visit Provider Urology
DX: E29.1 Testicular hypofunction (principal)
CPT/HCPCS: 36415; 84153; 84403; 85027

== ENCOUNTER 2023-03-20 13:12 | Outpatient (REF) | payer MEDICAID, SELFPAY ==
[2023-03-21 09:50] LABS: CT PCR NOT DETECTED (Not Detect.); NG PCR NOT DETECTED (Not Detect.)
== END 2023-03-20 13:13 | disposition home or self-care (01) ==
LOC: HO.HHCL 13:12
PROVIDERS: Visit Provider Registered Nurse
DX: N50.89 Other specified disorders of the male genital organs (principal); R20.2 Paresthesia of skin
CPT/HCPCS: 0353U; 36415; 87491; 87591

== ENCOUNTER 2023-03-22 11:48 | Outpatient (REF) | payer MEDICAID, SELFPAY ==
[2023-03-22 14:21] LABS: Estimated Average Glucose 108 mg/dL; Hemoglobin A1c % 5.4 %
[2023-03-22 14:42] LABS: Anion Gap 11 (12-20); Blood Urea Nitrogen 15 mg/dL (9-16); Calcium 9.5 mg/dL (8.4-10.2); Carbon Dioxide 32 mmol/L (22-29); Chloride 100 mmol/L (96-108); Estimated Glomerular Filt Rate > 60; Glucose Random 80 mg/dL (60-115); Potassium 4.2 mmol/L (3.3-5.1); Sodium 139 mmol/L (135-145)
[2023-03-22 15:35] LABS: Folate 13.3 ng/mL (> or = 4.0); Vitamin B12 771 pg/mL (200-900)
[2023-03-23 08:25] LABS: Syphilis Screen Nonreactive (Nonreactive)
[2023-03-24 15:03] LABS: HIV RNA PCR Qn Copies NOT DETECTED copies/mL (NOT DETECTED); HIV RNA PCR Qn Log Copies NOT DETECTED (NOT DETECTED)
[2023-03-24 15:17] LABS: HCV Log PCR <1.18 NOT DETECTED Log IU/mL (NOT DETECTED); HepC Viral Load <15 NOT DETECTED IU/mL (NOT DETECTED)
== END 2023-03-22 11:49 | disposition home or self-care (01) ==
LOC: HO.CHCLDS 11:48
PROVIDERS: Visit Provider Registered Nurse
DX: Z11.4 Encounter for screening for human immunodeficiency virus [HIV] (principal); N50.89 Other specified disorders of the male genital organs; R20.2 Paresthesia of skin
CPT/HCPCS: 36415; 80048; 82607; 82746; 83036; 86780; 87522; 87536

== ENCOUNTER 2023-04-13 11:32 | Outpatient (AMB) | payer MEDICAID, SELFPAY ==
--- NOTE | 2023-04-13 05:23 | A.OFFVIS_ITS ---
Intake Intake Visit Reasons: 4M Shiva/psa/testo(set) Allergies No Known Drug Allergies Allergy (Mild, Verified 01/12/23 11:17) Unknown SEAFOOD Allergy (Severe, Uncoded 01/12/23 11:17) ANAPHYLAXIS shellfish Allergy (Severe, Uncoded 01/12/23 11:17) Anaphylaxis PFSH Medical History Anemia Anxiety and depression BPH (benign prostatic hyperplasia) Erectile dysfunction GERD (gastroesophageal reflux disease) History of Helicobacter pylori infection HTN (hypertension) Hx of hepatitis C Hx of substance abuse Hx: UTI (urinary tract infection) Hypogonadism Murmur Smoker Spinal pain Surgical History Hx of cystoscopy Family History Mother Diabetes Social History Alcohol intake: former Patient Tobacco Use Status: Current everyday Tobacco user Substance Use Type: Former Substance User Current occupational status: unemployed Assessment & Plan Assessment & Plan Orders: Orders AMB Urinalysis Automated Today Z13.9 - Encounter for screening, unspecified Patient Instructions: The patient had an opportunity to ask questions regarding treatment plan. All questions were answered. Imaging, Laboratory studies and physical exam results were discussed and reviewed in detail. No major barriers to understanding were identified. The patient expressed understanding and agreement with the above treatment plan.? ? ? The patient is aware they should contact our office by phone for worsening of their current condition or the appearance of new symptoms. Compliance is encouraged with any medications and followup testing that is ordered.? ? ? It is a privilege to be allowed the opportunity to participate in the urologic care of your patient. If you have any questions or concerns regarding treatment for the above conditions please do not hesitate to contact me. The office telephone contact is [phone].? ? ? This note is constructed in part using voice recognition software. While every effort has been made to ensure accuracy instrumentation engineering technician errors may have been included.? ? ? Yours sincerely,? ? ? Jacquelyn Ngo MD? Coding Diagnoses
--- NOTE | 2023-04-13 11:59 | A.OFFVIS_ITS ---
Intake Intake Visit Reasons: 4M Shiva/psa/testo(set) Intake Note: Patient presents today for a follow-up on Labs Results PSA & Testo: Labs Completed 02/26/2023. Patient reports feeling weak and tired due to being out of Testosterone Shots. Meds- Tamsulosin & Testosterone Allergies to Antibiotic- No Known Allergies Blood Thinner- None Sewing Machine Attachment Tester Required: Yes Sewing Machine Attachment Tester Language: Bahamian Accompanied by: Self / Same As Patient Allergies No Known Drug Allergies Allergy (Mild, Verified 04/13/23 12:01) Unknown SEAFOOD Allergy (Severe, Uncoded 04/13/23 12:01) ANAPHYLAXIS shellfish Allergy (Severe, Uncoded 04/13/23 12:01) Anaphylaxis HPI HPI Comments History of Present Illness Details 04/13/2023--John is a 53-year-old male who presents today to the office for a 6 month follow up on PSA, testosterone. 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 He states that Dr. Lux has prescribed him testosterone. He states that the testosterone is helping him with the erections. He denies any problems with erection, however he feels tired and weak since he has not had testosterone med refilled. He is on Methadone. He states that he uses nicotine patches intermittently. He is taking Tamsulosin. He is a cigarette smoker. Patient has had US of the scrotum done on 01/10/2023. I have reviewed the blood work done on 02/23/2023 which showed PSA: 1.70, and testosterone was 299.? Plan: Recommended to cut down cigarette smoking as it can contribute to ED. I will discuss the testosterone level results with Dr. Lux, as he has been treating this patient for testosterone replacement, and we will follow up with him in next week with correct testosterone replacement dose. Follow up in [address] Lux, check the testosterone level prior. [facility] Medical History Anemia Anxiety and depression BPH (benign prostatic hyperplasia) Erectile dysfunction GERD (gastroesophageal reflux disease) History of Helicobacter pylori infection HTN (hypertension) Hx of hepatitis C Hx of substance abuse Hx: UTI (urinary tract infection) Hypogonadism Murmur Smoker Spinal pain Surgical History Hx of cystoscopy Family History Mother Diabetes Social History Alcohol intake: former Patient Tobacco Use Status: Current everyday Tobacco user Substance Use Type: Former Substance User Current occupational status: unemployed Review of Systems Const All systems reviewed & are unremarkable except as noted in HPI and below Reports no additional complaints Eyes Reports no additional complaints ENT Reports no additional complaints Card Denies dyspnea Resp Denies cough and Denies dyspnea GI Reports no additional complaints Musc Reports no additional complaints Skin/Breast Denies rash and Denies unusual bruising Neuro Reports no additional complaints Psych Reports no additional complaints Endo Reports no additional complaints Shiva/Lymph Reports no additional complaints Aller/Immun Reports no additional complaints Physical Exam Const General: healthy appearing, no acute distress and well developed Orientation/consciousness: patient oriented x3 HEENT Head: Yes normocephalic and Yes atraumatic Eyes Conjunctivae: conjunctivae normal Neck Neck: Yes normal visual inspection Chest Chest palpation & inspection: normal inspection of the chest Resp Effort & Inspection: normal respiratory effort Cardio Rate: regular rate GI Inspection: Yes normal to inspection Skin General skin exam: no rashes or lesions noted Neuro General: patient oriented x3 Extrem General: No pedal edema Psych Appearance: grossly normal Affect: normal affect Results AMB Urinalysis, Automated UA Leukoctes 0 Ariadne/uL Last Edit by DEDE Saravia on 04/13/23 11:59 UA Nitrite Negative Last Edit by DEDE Saravia on 04/13/23 11:59 UA Urobilinogen 0.2 mg/dL Last Edit by EDDE Saravia on 04/13/23 11:5 9 UA Protein 0 mg/dL Last Edit by DEDE Saravia on 04/13/23 11:59 UA pH 7.0 Last Edit by Emi José A on 04/13/23 11:59 UA Blood 0 Justo/uL Last Edit by Akhilrocky Arnav, A on 04/13/23 11:59 UA Specific [place] 1.010 Last Edit by Emi Arnav, A on 04/13/23 11: 59 UA Ketone Negative Last Edit by Emi José A on 04/13/23 11:59 UA Bilirubin 0 mg/dL Last Edit by Emi José A on 04/13/23 11:59 UA Glucose 0 mg/dL Last Edit by Emi José Ivania on 04/13/23 11:59 Results Reviewed Results Reviewed: Laboratory Last Values Urine pH (Auto) 7.0 04/13/23 11:52 Specific [place] (Auto) 1.010 04/13/23 11:52 Urine Protein (Auto) 0 mg/dL 04/13/23 11:52 Glucose (UA)(Auto) 0 mg/dL 04/13/23 11:52 Urine Ketones (Auto) Negative 04/13/23 11:52 Urine Blood (Auto) 0 Justo/uL 04/13/23 11:52 Urine Nitrite (Auto) Negative 04/13/23 11:52 Urine Bilirubin (Auto) 0 mg/dL 04/13/23 11:52 Urine Urobilinogen (Auto) 0.2 mg/dL 04/13/23 11:52 Leukocyte Esterase (Auto) 0 Ariadne/uL 04/13/23 11:52 Date of Service: 01/10/23 EXAMINATION: US SCROTUM CLINICAL INFORMATION: Testicular hypofunction. COMPARISON: None available. FINDINGS: RIGHT: Right testicle measures 3.8 x 1.7 x 2.8 cm, volume 9.5 mL. No focal testicular parenchymal lesions are visualized. Spectral Doppler analysis of the arterial and venous flow is normal in the right testis. Right epididymal head is normal in size. There is a small hydrocele present. Right epididymal Doppler flow is reported as increased but on imaging does not show enlargement or adjacent edema. It is hypoechoic. Small epididymal head cyst present with largest measuring 5 mm in diameter and containing a thin septum.. LEFT: Left testicle measures 3.7 x 1.7 x 2.5 cm, volume 8.2 mL. No focal testicular parenchymal lesions are visualized. Spectral Doppler analysis of the arterial and venous flow is normal in the left testis. Left epididymal head is normal in size. There is a small hydrocele present. There are small but minimal head cysts present. Left epididymal Doppler flow is reported as increased but the epididymis does not appear to be enlarged and no surrounding edema is present. IMPRESSION: No testicular abnormality appreciated. ? Small hydroceles. ? Imaging and report stating increased vascular flow within the epididymides bilaterally however both epididymides are homogeneously hypoechoic without adjacent edema and I cannot be totally sure that this represents acute epididymitis. Assessment & Plan Assessment & Plan (1) Hypogonadism in male: Code(s): E29.1 - Testicular hypofunction (2) Erectile dysfunction: Code(s): N52.9 - Male erectile dysfunction, unspecified Plan Recommended to cut down cigarette smoking as it can affect the erection. I will discuss the testosterone level results with Dr. Lux, as he has been treating this patient for testosterone replacement, and we will follow up with him in next week with correct testosterone replacement dose. Follow up in [address] Lux, check the testosterone level prior. Orders: Orders AMB Urinalysis Automated 04/13/23 Z13.9 - Encounter for screening, unspecified Patient Instructions: The patient had an opportunity to ask questions regarding treatment plan. All questions were answered. Imaging, Laboratory studies and physical exam results were discussed and reviewed in detail. No major barriers to understanding were identified. The patient expressed understanding and agreement with the above treatment plan.? ? ? The patient is aware they should contact our office by phone for worsening of their current condition or the appearance of new symptoms. Compliance is encouraged with any medications and followup testing that is ordered.? ? ? It is a privilege to be allowed the opportunity to participate in the urologic care of your patient. If you have any questions or concerns regarding treatment for the above conditions please do not hesitate to contact me. The office telephone contact is [phone].? ? ? This note is constructed in part using voice recognition software. While every effort has been made to ensure accuracy cook soup errors may have been included.? ? ? Yours sincerely,? ? ? Jacquelyn Ngo MD? Coding Level of Care Code Est Pt Level 4 (51748) Diagnoses Hypogonadism in male E29.1 Erectile dysfunction N52.9
== END 2023-04-13 12:27 | disposition home or self-care (01) ==
PROVIDERS: PCP Registered Nurse; Visit Provider Urology
DX: E29.1 Testicular hypofunction (principal); N52.9 Male erectile dysfunction, unspecified
CPT/HCPCS: 99214

== ENCOUNTER → 2023-04-13 11:32 | Outpatient (BNVA) | payer MEDICAID, SELFPAY | PROVIDERS: PCP Registered Nurse; Visit Provider Urology | DX: E29.1 Testicular hypofunction (principal); N50.82 Scrotal pain; N52.9 Male erectile dysfunction, unspecified; F17.210 Nicotine dependence, cigarettes, uncomplicated; Z79.899 Other long term (current) drug therapy | CPT/HCPCS: 99212 ==

== ENCOUNTER 2023-04-25 17:40 | Outpatient (REF) | payer MEDICAID, SELFPAY ==
[2023-04-25 18:36] LABS: Influenza A PCR NEGATIVE (Negative); Influenza B PCR NEGATIVE (Negative); Resp Syncy Virus RNA Qual PCR NEGATIVE (Negative); SARS COV2 PCR INHOUSE NEGATIVE (Negative)
== END 2023-04-25 17:41 | disposition home or self-care (01) ==
LOC: HO.HHCLNP 17:40
PROVIDERS: Visit Provider Internal Medicine
DX: Z20.822 Contact with and (suspected) exposure to COVID-19 (principal); R05.9 Cough, unspecified; R10.9 Unspecified abdominal pain
CPT/HCPCS: 0241U; 87086

== ENCOUNTER 2023-04-26 09:04 | Outpatient (REF) | payer MEDICAID, SELFPAY ==
--- NOTE | ~2023-04-26 | XR_ITS ---
EXAMINATION: XR CHEST CLINICAL INFORMATION: Cough and fever. COMPARISON: 04/16/2018 chest radiographs. TECHNIQUE: 2 views of the chest were obtained. FINDINGS: No significant abnormality is noted involving the heart, lungs, mediastinum, bony thorax or soft tissues. XR/XR chest 2V IMPRESSION: No acute cardiopulmonary process.
== END 2023-04-26 09:05 | disposition home or self-care (01) ==
LOC: HO.HHCX 09:04
PROVIDERS: Visit Provider Internal Medicine
DX: J40 Bronchitis, not specified as acute or chronic (principal)
CPT/HCPCS: 71046

== ENCOUNTER 2023-04-26 11:35 | Outpatient (REF) | payer MEDICAID, SELFPAY ==
[2023-04-26 13:38] LABS: B Type Natriuretic Peptide 13 pg/mL (<100)
== END 2023-04-26 11:36 | disposition home or self-care (01) ==
LOC: HO.LAB 11:35
PROVIDERS: Visit Provider Internal Medicine
DX: R05.9 Cough, unspecified (principal); J40 Bronchitis, not specified as acute or chronic
CPT/HCPCS: 36415; 83880

== ENCOUNTER 2023-05-25 10:09 | Outpatient (REF) | payer MEDICAID, SELFPAY ==
[2023-05-25 12:01] LABS: Alanine Aminotransferase 26 U/L (0-40); Albumin Level 4.5 g/dL (3.5-5.0); Alkaline Phosphatase 58 U/L (39-117); Aspartate Amino Transferase 26 U/L (5-37); Bilirubin Direct 0.5 mg/dL (0.0-0.5); Bilirubin Total 1.5 mg/dL (0.0-1.0); Total Protein 7.5 g/dL (6.5-8.0)
[2023-05-25 16:01] LABS: MANUAL DIFF FLAG NO
[2023-05-25 16:06] LABS: Basophils Absolute Auto 0.1 X10*3/uL (0.0-0.2); Basophils Percent Auto 0.8 % (0-2); Eosinophils Absolute Auto 0.3 X10*3/uL (0.0-0.4); Eosinophils Percent Auto 3.7 % (0-4); Hematocrit 39.6 % (42.0-52.0); Hemoglobin 13.4 g/dl (14.0-18.0); Imm Gran Abs Auto 0.02 X10*3/uL (0.00-0.03); Imm Gran Pct Auto 0.3 % (0.0-0.4); Immature Retic Fraction 12.4 % (2.3-13.4); Lymphocytes Absolute Auto 2.3 X10*3/uL (1.2-4.9); Lymphocytes Percent Auto 29.2 % (20-40); Mean Corpuscular HGB Conc 33.8 g/dl (31.0-36.0); Mean Corpuscular Hemoglobin 32.9 pg (27.0-33.0); Mean Corpuscular Volume 97.3 fL (80.0-98.0); Mean Platelet Volume 12.2 fL (9.4-12.4); Monocytes Absolute Auto 0.5 X10*3/uL (0.1-1.2); Monocytes Percent Auto 6.3 % (2-11); Neutrophils Absolute Auto 4.8 x10*3/uL (2.0-8.3); Neutrophils Percent Auto 59.7 % (45-73); Platelet Count 164 X10*3/uL (160-400); Red Blood Count 4.07 X10*6/uL (4.60-5.80); Red Cell Distribution Width 13.8 % (11.0-16.0); Retic HGB Equivalent 38.2 pg (30.0-35.0); Reticulocyte Percent 1.9 % (0.5-1.8); Reticulocytes Absolute 0.077 X10*6/uL (0.026-0.095); White Blood Count 7.9 X10*3/uL (4.8-10.8)
[2023-05-26 08:19] LABS: Band Neutrophils Percent 5 % (3-5); Eosinophils Absolute Manual 0.3 X10*3/uL (0.0-0.4); Eosinophils Percent Manual 4 % (0-4); Lymphocytes Absolute Manual 1.7 X10*3/uL (1.2-4.9); Lymphocytes Percent Manual 21 % (20-40); Monocytes Absolute Manual 0.5 X10*3/uL (0.1-1.2); Monocytes Percent Manual 6 % (2-11); Neutrophils Absolute Manual 5.5 X10*3/uL (2.0-8.3); Neutrophils Percent Manual 64 % (45-73)
[2023-05-26 08:22] LABS: Acanthocytes 1+ (0-2) /OIF; Burr Cells 1+ (0-2) /OIF; Large Platelet PRESENT; Platelet Estimate NORMAL (NORMAL); Platelet Morphology Comment NOTED; RBC Morphology NOTED
== END 2023-05-25 10:10 | disposition home or self-care (01) ==
LOC: HO.HHCL 10:09
PROVIDERS: Visit Provider Emergency Medicine
DX: E80.6 Other disorders of bilirubin metabolism (principal); L29.9 Pruritus, unspecified
CPT/HCPCS: 36415; 80076; 85007; 85025; 85045

== ENCOUNTER 2023-06-15 12:28 | Outpatient (REF) | payer MEDICAID, SELFPAY ==
[2023-06-15 14:43] LABS: Alanine Aminotransferase 21 U/L (0-40); Albumin Level 4.7 g/dL (3.5-5.0); Alkaline Phosphatase 57 U/L (39-117); Anion Gap 15 (12-20); Aspartate Amino Transferase 24 U/L (5-37); Bilirubin Direct 0.4 mg/dL (0.0-0.5); Bilirubin Total 1.3 mg/dL (0.0-1.0); Blood Urea Nitrogen 15 mg/dL (9-16); Calcium 9.5 mg/dL (8.4-10.2); Carbon Dioxide 29 mmol/L (22-29); Chloride 100 mmol/L (96-108); Estimated Glomerular Filt Rate > 60; Glucose Random 84 mg/dL (60-115); Potassium 4.4 mmol/L (3.3-5.1); Sodium 140 mmol/L (135-145); Total Protein 7.8 g/dL (6.5-8.0)
== END 2023-06-15 12:29 | disposition home or self-care (01) ==
LOC: HO.HHCL 12:28
PROVIDERS: Visit Provider Registered Nurse
DX: R17 Unspecified jaundice (principal); M54.2 Cervicalgia
CPT/HCPCS: 36415; 80048; 80076

== ENCOUNTER 2023-07-13 17:24 | Outpatient (REF) | payer MEDICAID, SELFPAY ==
[2023-07-13 18:22] LABS: Influenza A PCR NEGATIVE (Negative); Influenza B PCR NEGATIVE (Negative); Resp Syncy Virus RNA Qual PCR NEGATIVE (Negative); SARS COV2 PCR INHOUSE NEGATIVE (Negative)
== END 2023-07-13 17:25 | disposition home or self-care (01) ==
LOC: HO.HHCLNP 17:24
PROVIDERS: Visit Provider Emergency Medicine
DX: R68.89 Other general symptoms and signs (principal); Z11.52 Encounter for screening for COVID-19
CPT/HCPCS: 0241U; 87070

== ENCOUNTER 2023-07-19 08:15 | Outpatient (REF) | payer MEDICAID, SELFPAY ==
--- NOTE | ~2023-07-19 | CT_ITS ---
EXAMINATION: CT SOFT TISSUE NECK WITH CONTRAST CLINICAL INFORMATION: Dysphagia. COMPARISON: Neck ultrasound from 12/07/2021. TECHNIQUE: Multidetector helical imaging was performed in the axial plane following the administration of 60 mL of Omnipaque 350 intravenous contrast. Multiple axial reformats and coronal/sagittal reconstructions were created the technologist workstation for review. This CT examination was performed using dose optimization techniques as appropriate, variously including the following: *Automated exposure control. *Adjustment of mA and/or kV according to patient size (this includes techniques or standardized protocols for targeted exams where dose is matched to indication/reason for exam; i.e. extremities or head). *Use of iterative reconstruction technique. DLP: 277 mGy-cm FINDINGS: No significant cutaneous thickening or subcutaneous inflammation. No discrete fluid collection within the deep tissues of the neck. The premaxillary, retromaxillary, pterygopalatine fossa, orbital apical, parapharyngeal, and prelaryngeal adipose tissue is maintained. Normal appearance of the parotid, submandibular, and thyroid glands. Scattered subcentimeter lymph nodes bilaterally, none of which are pathologically enlarged or abnormally enhancing. No demonstrated focal lesion or abnormal enhancement within the intrinsic tissues of the tongue or floor of mouth. Normal mucosal contours of the pharynx and larynx without abnormal enhancement. Normal appearance of the hyoid bone, thyroid cartilage, or cartilaginous trachea. The airways remains widely patent. No radiopaque foreign bodies. The atlantooccipital and atlantoaxial articulations remain well aligned. There is anatomic alignment of the vertebral bodies and posterior elements. No evidence of acute fracture or subluxation of the cervical spine. The vertebral body heights are maintained. Mild multilevel degenerative disc disease. Facet and uncovertebral joint arthropathy causes osseous encroachment on the right-sided C5-C6 neural foramen. No evidence of epidural collection. There is no prevertebral soft tissue swelling. Normal opacification of the cervical arterial and venous structures. The visualized portion of the skull base is without significant abnormalities. The visualized paranasal sinuses are clear. The mastoid air cells and middle ear cavities are clear. No demonstrated significant periapical odontogenic disease. CT Upper Chest: The visualized lung apices and upper mediastinum are within normal limits. CT/CT soft tissue neck w IV con IMPRESSION: No demonstrated focal lesion, collection, lymphadenopathy, or abnormal enhancement within the soft tissues of the neck.
[2023-07-19] MEDS: iohexoL 350 MG/ML 100 ML INFUS..BTL 60 ML IV (08:48)
== END 2023-07-19 08:16 | disposition home or self-care (01) ==
LOC: HO.CT 08:15
PROVIDERS: Visit Provider Internal Medicine
DX: R13.10 Dysphagia, unspecified (principal); M54.2 Cervicalgia
CPT/HCPCS: 70491; Q9967

== ENCOUNTER 2023-08-01 13:09 | Outpatient (REF) | payer MEDICAID, SELFPAY ==
[2023-08-01 14:40] LABS: Appearance Urine Clear; Color Urine Yellow; Glucose Urine UA Negative (Negative); Leukocyte Esterase Urine Negative (Negative); Nitrite Urine Negative (Negative); PH >= 9.0 (5.0-9.0); Urine Blood Negative (Negative); Urine Ketones Negative (Negative); Urine Protein Trace mg/dL (Neg-Trace)
[2023-08-01 14:43] LABS: Bacteria Urine None Seen (None Seen); Hyaline Casts Urine 0-2 /LPF (0-2); RBC Urine 0-2 /HPF (0-2); Squamous Epithelial Cell Urine 0-2 /HPF (0-2); WBC Urine 0-5 /HPF (0-5)
== END 2023-08-01 13:10 | disposition home or self-care (01) ==
LOC: HO.LAB 13:09
PROVIDERS: PCP Registered Nurse; Visit Provider Urology
DX: Z87.440 Personal history of urinary (tract) infections (principal)
CPT/HCPCS: 81001; 87086

== ENCOUNTER 2023-09-27 11:54 | Outpatient (REF) | payer MEDICAID, SELFPAY ==
[2023-09-27 12:20] LABS: Hematocrit 40.5 % (42.0-52.0); Hemoglobin 13.6 g/dl (14.0-18.0); Mean Corpuscular HGB Conc 33.6 g/dl (31.0-36.0); Mean Corpuscular Hemoglobin 32.2 pg (27.0-33.0); Mean Platelet Volume 11.6 fL (9.4-12.4); Platelet Count 160 X10*3/uL (160-400); Red Blood Count 4.22 X10*6/uL (4.60-5.80); Red Cell Distribution Width 12.9 % (11.0-16.0); White Blood Count 6.6 X10*3/uL (4.8-10.8)
[2023-09-27 13:04] LABS: PSA,Total (Free>4and<10) 1.86 ng/mL (0.00-4.00)
[2023-10-02 18:34] LABS: Testosterone, Free 81.4 pg/mL (35.0-155.0); Testosterone, Total 365 ng/dL (250-1100)
== END 2023-09-27 11:55 | disposition home or self-care (01) ==
LOC: HO.LAB 11:54
PROVIDERS: Visit Provider Urology
DX: E29.1 Testicular hypofunction (principal)
CPT/HCPCS: 36415; 84153; 84402; 84403; 85027

== ENCOUNTER 2023-11-06 15:30 | Outpatient (AMB) | payer MEDICAID, SELFPAY ==
--- NOTE | 2023-11-06 15:32 | MHC.OFFVIS ---
Intake Intake Visit Reasons: 4M PSA/TESTOSTERONE(set) Intake Note: Patient is Present for Telephone Follow Up Urology Med: Tamsulosin, Testosterone Antibiotic Allergy: none Blood Thinner:None Allergies No Known Drug Allergies Allergy (Mild, Verified 11/06/23 15:33) Unknown SEAFOOD Allergy (Severe, Uncoded 11/06/23 15:33) ANAPHYLAXIS shellfish Allergy (Severe, Uncoded 11/06/23 15:33) Anaphylaxis HPI HPI Comments History of Present Illness Details John is a male. He is a patient of Dr. Mar. He is seen for the following urologic conditions - hypogonadism Albanian translation provided by qualified chief medical director Telemedicine Evaluation 15 min Consultation [employer] Elizabeth Video attempted Lab work within normal range Continue Q six-month follow-up Hypogonadism Patient states everything is going well not having any complications or side effects which were reviewed the potential morbidity mortality of testosterone placement therapy reviewed all questions answered informed consent obtained. Injection day - Laboratory day - Sunday Current therapy 1 cc every 2 weeks to his thigh testosterone cypionate Laboratories - 06/23 T 362, PSA 1.5, Hct 41.4, 06/24 T 159 H 42, 09/26 T 365 Concurrent comorbidities - methadone use, nicotine Discussed laboratory results Follow in 6 months [facility] Medical History Anemia Hx of substance abuse Smoker History of Helicobacter pylori infection Spinal pain Hypogonadism Erectile dysfunction Hx: UTI (urinary tract infection) BPH (benign prostatic hyperplasia) Hx of hepatitis C GERD (gastroesophageal reflux disease) Anxiety and depression HTN (hypertension) Murmur Surgical History Hx of cystoscopy Family History Mother Diabetes Social History Alcohol intake: former Patient Tobacco Use Status: Current everyday Tobacco user Substance Use Type: Former Substance User Current occupational status: unemployed Review of Systems Const All systems reviewed & are unremarkable except as noted in HPI and below Reports no additional complaints Resp Reports no additional complaints GI Reports no additional complaints Reports as per HPI Musc Reports no additional complaints Physical Exam Telemedicine evaluation Appropriate responses Regular breathing rate and rhythm HEENT Head: Yes normal to inspection Ears: hearing grossly normal bilaterally Eyes General: appearance normal, both eyes and all related structures Neck Neck: Yes normal visual inspection Chest Chest palpation & inspection: normal inspection of the chest Resp Effort & Inspection: normal respiratory effort and able to speak in complete sentences Assessment & Plan Assessment & Plan (1) Hypogonadism in male: Code(s): E29.1 - Testicular hypofunction (2) Erectile dysfunction: Code(s): N52.9 - Male erectile dysfunction, unspecified Plan Six-month follow-up labs office Patient Instructions: Imaging studies, laboratory and physical exam results were discussed and reviewed in detail. No major barriers to patient understanding were identified. An opportunity to ask questions regarding the treatment plan was provided. All questions were answered. The patient expressed understanding and agreement with the above treatment plan. The patient is aware they should contact our office by phone for worsening of their current condition or the appearance of new urologic symptoms. Compliance is encouraged with any medications and followup testing that is ordered. It is a privilege to participate in the urologic care of your patient. If you have any questions or concerns regarding treatment for the above conditions, or other urologic issues, please do not hesitate to contact me. The office telephone contact is [phone]. This note is constructed using voice recognition software. While every effort has been made to ensure accuracy log feeder errors may have been included. Yours sincerely, Dr Julian Lux MD, [facility] - Urology Providers of Expert, Compassionate Care for the Genitourinary System Telehealth Telehealth Location of provider rendering services: practice address Location of patient: address on file Patient Identification confirmed using: Name, : Yes Telehealth method: video Patient verbally consented to treatment: Yes Patient verbally consented to billing insurance company: Yes Patient informed of any privacy concerns related to visit: Yes Coding Level of Care Code Tele Est Pt Level 3 (45235) Diagnoses Hypogonadism in male E29.1 Erectile dysfunction N52.9
== END 2023-11-06 16:26 | disposition home or self-care (01) ==
LOC: HO.HUSH 15:31
PROVIDERS: PCP Registered Nurse; Visit Provider Urology
DX: E29.1 Testicular hypofunction (principal); N52.9 Male erectile dysfunction, unspecified
CPT/HCPCS: 99213

== ENCOUNTER → 2023-11-06 15:30 | Outpatient (BNVA) | payer MEDICAID, SELFPAY | PROVIDERS: PCP Registered Nurse; Visit Provider Urology ==

== ENCOUNTER 2023-11-16 11:34 | Outpatient (REF) | payer MEDICAID, SELFPAY | END 2023-11-16 11:35 | disposition home or self-care (01) | LOC: HO.LNP 11:34 | PROVIDERS: Visit Provider Pediatrics | DX: K29.50 Unspecified chronic gastritis without bleeding (principal) | CPT/HCPCS: 87338 ==

== ENCOUNTER 2023-12-17 13:45 | Emergency (ER) | payer MEDICAID, SELFPAY ==
--- NOTE | 2023-12-17 | ECG_ITS ---
Test Reason : CP Blood Pressure : / mmHG Vent. Rate : 062 BPM Atrial Rate : 062 BPM P-R Int : 154 ms QRS Dur : 088 ms QT Int : 384 ms P-R-T Axes : 038 006 030 degrees QTc Int : 389 ms Normal sinus rhythm Normal ECG When compared with ECG of 24-JUN-2022 17:54, No significant change was found Referred By: Generic ED Physician Electronically Signed By:JAILYN MORE
--- NOTE | ~2023-12-17 | XR_ITS ---
EXAMINATION: XR CHEST CLINICAL INFORMATION: Pain COMPARISON: Chest 04/26/2023 TECHNIQUE: 2 views of the chest were obtained. FINDINGS: No significant abnormality is noted involving the heart, lungs, mediastinum, bony thorax or soft tissues. XR/XR chest 2V IMPRESSION: Unremarkable examination.
[2023-12-17 15:03] VITALS: BP 109/60; PULSE 65; RESP 18; TEMP 36.8; O2SAT 98; BMI 23.1
--- NOTE | 2023-12-17 15:03 | ED.GENADULT ---
HPI - General Adult General Chief complaint: Upper Respiratory Symptoms Stated complaint: SOB/Chest pain Time Seen by Provider: 12/17/23 16:39 Source: patient and RN notes reviewed Mode of arrival: ambulatory Limitations: no limitations History of Present Illness HPI narrative: This is a 53-year-old [place] Islander-speaking male, with a history of depression and anxiety, who presents emergency department with complaints of sinus congestion, sinus pain and pressure, cough and chest tightness for the last 5 days. is here with similar symptoms. He denies any fevers, chills, shortness of breath, palpitations, abdominal pain, nausea, vomiting or diarrhea. He took Claritin for his symptoms which provided him without any relief. No other complaints or concerns at this time. MD complaint: Congestion, sinus pain Onset (ago): day(s) Location: head and face Radiation: non-radiation Severity: moderate Quality: aching Pain Consistency: constant Relieving factors: none Exacerbating factors: none Associated symptoms: denies other symptoms Treatments prior to arrival: none Related Data Home Medications ?Medication ?Instructions ?Recorded ?Confirmed cholecalciferol (vitamin D3) 50 50 mcg PO DAILY 06/30/20 11/06/23 mcg (2,000 unit) capsule (Vitamin D3) clonazepam 1 mg tablet 1 mg PO DAILY 06/30/20 11/06/23 fluticasone propionate 50 1 spray intranasal DAILY 06/30/20 11/06/23 mcg/actuation nasal spray,suspension (Flonase Allergy Relief) hydroxyzine HCl 25 mg tablet 25 mg PO TID PRN Itching 06/30/20 11/06/23 methadone 40 mg soluble tablet 36 mg PO DAILY 06/30/20 11/06/23 omeprazole 20 mg capsule,delayed 20 mg PO DAILY 06/30/20 11/06/23 release fluoxetine 10 mg capsule 20 mg PO QAM 10/20/21 11/06/23 mirtazapine 15 mg tablet 15 mg PO BEDTIME 10/20/21 11/06/23 trazodone 50 mg tablet 25 mg PO BEDTIME 10/20/21 11/06/23 ascorbic acid (vitamin C) 500 mg 500 mg PO DAILY 12/16/21 11/06/23 tablet (Vitamin C) ferrous sulfate 325 mg (65 mg 325 mg PO DAILY 12/16/21 11/06/23 iron) tablet (FeroSul) lidocaine 5 % topical patch 0 patch topical 12/16/21 11/06/23 (Lidoderm) sennosides 8.6 mg tablet (senna) 17.2 mg PO DAILY 12/16/21 11/06/23 cetirizine 10 mg tablet 10 mg PO DAILY PRN congestion 05/18/22 11/06/23 nicotine 14 mg/24 hr daily 0 patch topical 06/22/22 11/06/23 transdermal patch albuterol sulfate 90 mcg/actuation 2 puff inhalation Q4H PRN wheezing 01/12/23 11/06/23 aerosol inhaler (Ventolin HFA) clonazepam 0.5 mg tablet 1 mg PO BID PRN 01/12/23 11/06/23 ibuprofen 600 mg tablet 600 mg PO Q8H PRN headache 01/12/23 11/06/23 melatonin 5 mg tablet 5 - 10 mg PO BEDTIME PRN 01/12/23 11/06/23 multivitamin 1 tab PO QAM 01/12/23 11/06/23 nicotine (polacrilex) 2 mg buccal 2 mg PO 01/12/23 11/06/23 lozenge rosuvastatin 10 mg tablet 10 mg PO QAM 01/12/23 11/06/23 simethicone 125 mg capsule (Gas 125 mg PO BEDTIME 01/12/23 11/06/23 Relief Extra Strength) Previous Rx's ?Medication ?Instructions ?Recorded docusate sodium 100 mg capsule 200 mg (2 x 100 mg) PO BEDTIME 30 06/03/20 (Colace) days #60 caps bisacodyl 5 mg tablet,delayed 10 mg (2 x 5 mg) PO ONCE 05/18/22 release (Dulcolax (bisacodyl)) colonoscopy prep 1 day #2 tabs polyethylene glycol 3350 17 238 g PO ONCE 1 day #238 grams 05/18/22 gram/dose oral powder (Miralax) pantoprazole 20 mg tablet,delayed 40 mg (2 x 20 mg) PO DAILY #60 tabs 11/27/22 release needle (disp) 22 G 22 gauge x 1 #30 ea 11/06/23 1/2 syringe (disposable) 3 mL (BD #25 ea 11/06/23 Luer-Vira Syringe) testosterone cypionate 200 mg/mL 200 mg IM Q2W 28 days #2 mL 11/06/23 intramuscular oil needle (disp) 18 G 18 gauge x 1 #30 ea 11/29/23 1/2 (BD Regular [place]vel [place]) tamsulosin 0.4 mg capsule 0.8 mg (2 x 0.4 mg) PO DAILY 90 12/05/23 days #180 caps amoxicillin 875 mg-potassium 1 tab PO BID 7 days #14 tabs 12/17/23 clavulanate 125 mg tablet phenylephrine HCl 10 mg tablet 10 mg PO Q6H PRN nasal congestion 12/17/23 (Sudafed PE) #10 tabs Allergies Allergy/AdvReac Type Severity Reaction Status Date / Time No Known Drug Allergies Allergy Mild Unknown Verified 12/17/23 15:03 SEAFOOD Allergy Severe ANAPHYLAXIS Uncoded 11/06/23 15:33 shellfish Allergy Severe Anaphylaxis Uncoded 11/06/23 15:33 Review of Systems Review of Systems: Yes all other systems are reviewed and are negative Constitutional: Constitutional: Reports as per [facility] Past Medical History Medical History Anemia Hx of substance abuse Smoker History of Helicobacter pylori infection Spinal pain Hypogonadism Erectile dysfunction Hx: UTI (urinary tract infection) BPH (benign prostatic hyperplasia) Hx of hepatitis C GERD (gastroesophageal reflux disease) Anxiety and depression HTN (hypertension) Murmur Surgical History Hx of cystoscopy Family History Family History Mother Diabetes Social History Social History Alcohol intake: former Patient Tobacco Use Status: Current everyday Tobacco user Substance Use Type: Former Substance User Advance Directives: No Advance Directives Information Provided: No Current occupational status: unemployed Physical Exam ED Vital Signs: Vital Signs - 24 hr 12/17/23 15:03 12/17/23 16:54 Temperature 98.2 F 99.4 F Pulse Rate 65 62 Respiratory Rate 18 16 Blood Pressure 109/60 121/67 Pulse Oximetry 98 98 Oxygen Delivery Method Room Air Room Air BMI result Body Mass Index 23.1 Const General: cooperative, comfortable and no acute distress Orientation/consciousness: patient oriented x3 Limitations: no limitations HENMT Other: Tenderness palpation along the maxillary sinus and ethmoid sinuses Head: Yes normal to inspection, Yes normocephalic and Yes atraumatic Ears: hearing grossly normal bilaterally and TM's normal bilaterally General nose exam: Normal external nose present Face and sinus: Yes normal facial exam Mouth: Normal oral and palatal mucosa present, oropharynx normal and moist mucous membranes Throat: Yes posterior oropharynx normal, Yes tonsils normal and Yes uvula midline Eyes General: appearance normal, both eyes and all related structures Eyelids: Yes eyelids normal Conjunctivae: conjunctivae normal Sclerae: sclerae normal Pupils: Equal, round and reactive pupils present EOM: EOMs intact bilaterally Neck Neck: Yes normal visual inspection, Yes full ROM and Yes no lymphadenopathy Lymphatic: no lymphadenopathy noted Chest Chest palpation & inspection: normal inspection of the chest Resp Effort & Inspection: normal respiratory effort and able to speak in complete sentences Auscultation: clear to auscultation bilaterally, no crackles, no rales, no rhonchi and no wheezes Cardio Rate: regular rate Rhythm: regular rhythm Heart sounds: S1 normal heart sound present and S2 normal heart sound present GI Inspection: Yes normal to inspection Skin General skin exam: no rashes or lesions noted Trauma: no lacerations or abrasions Wounds: no wounds Neuro General: patient oriented x3 and moves all extremities Cranial nerves: Yes Equal, round and reactive pupils present Extrem General: Yes normal to inspection Right upper extremity: normal to inspection Left upper extremity: normal to inspection Right lower extremity: normal to inspection Left lower extremity: normal to inspection Course Course Course Narrative: RME- 53 year old male presents for evaluation of cough, congestion and chest pain for the last 5 days. Plan for cardiac workup Medical Decision Making Medical Decision Making [facility] Narrative: This is a 53-year-old male, with a history of anxiety and depression, who presents emergency department with complaints of cough, facial pressure and pain, and congestion x5 days. On arrival, vital signs within normal limits. He is speaking in full sentences under no acute distress, lungs are clear to auscultation bilaterally. Differential diagnoses include acute sinusitis, URI, pneumonia, less likely pneumothorax, ACS. Patient had labs performed, patient has no leukocytosis, slight normocytic anemia with a hemoglobin and hematocrit at 13.5/40. Chemistry within normal limits. Troponin less than 2.7, he has no active chest pain, ACS is unlikely. Viral swabs were ordered, they are negative at this time. Chest x-ray does not reveal any pneumonia, EKG normal sinus rhythm with no ST elevation or depression. Patient's symptoms consistent with acute sinusitis, will treat with course of antibiotics, patient given strict return precautions. He understands and agrees with plan. Patient stable for discharge Differential Diagnosis Differential Diagnoses: The differential diagnosis associated with the presentation includes See above Admission/Observation Consideration of admission/observation: Escalation of care including admission/observation considered Escalation of care including admission/observation considered however given workup today not warranted at this time. Lab Data MDM Lab Attestation statement: I reviewed the patient's lab results. No leukocytosis, normocytic anemia noted with an H&H of 13.5/40 %, chemistry within normal limits. Troponin less than 2.7, negative viral swabs. 12/17/23 16:48 12/17/23 16:48 Labs: Lab Results 12/17/23 Range/Units 16:48 WBC 7.1 (4.8-10.8) X10*3/uL RBC 4.25 L (4.60-5.80) X10*6/uL Hgb 13.5 L (14.0-18.0) g/dl Hct 40.0 L (42.0-52.0) % MCV 94.1 (80.0-98.0) fL MCH 31.8 (27.0-33.0) pg MCHC 33.8 (31.0-36.0) g/dl RDW 12.9 (11.0-16.0) % Plt Count 190 (160-400) X10*3/uL MPV 10.9 (9.4-12.4) fL Immature Gran % (Auto) 0.1 (0.0-0.4) % Neut % (Auto) 56.3 (45-73) % Lymph % (Auto) 32.6 (20-40) % Bacon % (Auto) 6.8 (2-11) % Eos % (Auto) 3.5 (0-4) % Baso % (Auto) 0.7 (0-2) % Lymph # (Auto) 2.3 (1.2-4.9) X10*3/uL Bacon # (Auto) 0.5 (0.1-1.2) X10*3/uL Eos # (Auto) 0.3 (0.0-0.4) X10*3/uL Baso # (Auto) 0.1 (0.0-0.2) X10*3/uL Abs Immat Gran (auto) 0.01 (0.00-0.03) X10*3/uL Absolute Neuts (auto) 4.0 (2.0-8.3) x10*3/uL Absolute Nucleated RBC 0.000 (0.0-0.012) X10*3/uL Nucleated RBC % (auto) 0.0 (0.0-0.2) /100WBC PT 11.8 (11.1-13.3) SEC INR 1.0 (0.9-1.1) Sodium 138 (135-145) mmol/L Potassium 3.6 (3.3-5.1) mmol/L Chloride 103 (96-108) mmol/L Carbon Dioxide 26 (22-29) mmol/L Anion Gap 13 (12-20) BUN 15 (9-16) mg/dL Creatinine 0.96 (0.5-1.4) mg/dL Estim Creat Clear Calc 81.2 Estimated GFR > 60 Random Glucose 115 (60-115) mg/dL Calcium 8.9 D (8.4-10.2) mg/dL Total Bilirubin 0.9 (0.0-1.0) mg/dL AST 21 (5-37) U/L ALT 20 (0-40) U/L Alkaline Phosphatase 50 (39-117) U/L Troponin I High Sens < 2.7 (<3.5-35.0) ng/L Total Protein 7.3 (6.5-8.0) g/dL Albumin 4.2 (3.5-5.0) g/dL Lipase 18 (8-78) U/L Influenza Type A (PCR) NEGATIVE (Negative) Influenza Type B (PCR) NEGATIVE (Negative) RSV RNA Qual (PCR) NEGATIVE (Negative) SARS-CoV-2 RNA (RT-PCR) NEGATIVE (Negative) Independent Interpretation I performed an independent interpretation of an: EKG and Plain X-Ray Interpretation: I reviewed the x-ray and agree with the radiology report EKG normal sinus rhythm at a ventricular rate of 62 beats per minute, NE interval 154, QT QTC 384/389, no ST elevation or depression. Radiology Impression Discussion of test interpretation with radiology: I have reviewed the radiologist's reading. Radiologist Impression: COMPARISON: Chest 04/26/2023 TECHNIQUE: 2 views of the chest were obtained. FINDINGS: No significant abnormality is noted involving the heart, lungs, mediastinum, bony thorax or soft tissues. XR/XR chest 2V IMPRESSION: Unremarkable examination. Dictated By: Gilda Mckoy MD Discharge Plan Discharge Clinical Impression: Acute sinusitis Patient Disposition: Home, Self-Care Instructions: Sinusitis (ED) Additional Instructions: Your seen in the emergency department and your exam is concerning for a sinus infection. Please take prescribed antibiotic as directed, finish the entire course even if your feeling better. I am also prescribing you a decongestant. Drink plenty of fluids get plenty of rest. If any new or worsening symptoms occur including but not limited to worsening pain, fevers, chills, severe headache, chest pain, shortness of breath, abdominal pain, please return for re-evaluation. Prescriptions: New amoxicillin-pot clavulanate 875-125 mg tablet 1 tab PO BID 7 Days Qty: 14 0RF phenylephrine HCl [Sudafed PE] 10 mg tablet 10 mg PO Q6H PRN (Reason: nasal congestion) Qty: 10 0RF No Action docusate sodium [Colace] 100 mg capsule 200 mg PO BEDTIME 30 Days Qty: 60 3RF pantoprazole 20 mg tablet,delayed release (DR/EC) 40 mg PO DAILY Qty: 60 6RF (DME) BD Regular [place]vel [place] 18 gauge x 1 1/2 needle See Rx Instructions .MEDSUPPLY Qty: 30 0RF Rx Instructions: As directed tamsulosin 0.4 mg capsule 0.8 mg PO DAILY 90 Days Qty: 180 1RF clonazepam 1 mg Tablet 1 mg PO DAILY methadone 40 mg Tablet,Soluble 36 mg PO DAILY omeprazole 20 mg Capsule,Delayed Release(Dr/Ec) 20 mg PO DAILY hydroxyzine HCl 25 mg Tablet 25 mg PO TID PRN (Reason: Itching) fluticasone propionate [Flonase Allergy Relief] 50 mcg/actuation [place],Suspension 1 spray INTRANASAL DAILY cholecalciferol (vitamin D3) [Vitamin D3] 50 mcg (2,000 unit) Capsule 50 mcg PO DAILY trazodone 50 mg tablet 25 mg PO BEDTIME mirtazapine 15 mg tablet 15 mg PO BEDTIME fluoxetine 10 mg capsule 20 mg PO QAM nicotine 14 mg/24 hr patch 24 hour 0 patch topical bisacodyl [Dulcolax (bisacodyl)] 5 mg tablet,delayed release (DR/EC) 10 mg PO ONCE 1 Days Qty: 2 0RF Rx Instructions: Take 2 tablets by mouth at 12:00pm the day before your procedure. polyethylene glycol 3350 [Miralax] 17 gram/dose powder 238 g PO ONCE 1 Days Qty: 238 0RF Rx Instructions: Take as directed by mouth the day before your procedure. cetirizine 10 mg tablet 10 mg PO DAILY PRN (Reason: congestion) lidocaine [Lidoderm] 5 % adhesive patch,medicated 0 patch topical ferrous sulfate [FeroSul] 325 mg (65 mg iron) tablet 325 mg PO DAILY ascorbic acid (vitamin C) [Vitamin C] 500 mg tablet 500 mg PO DAILY sennosides [senna] 8.6 mg tablet 17.2 mg PO DAILY albuterol sulfate [Ventolin HFA] 90 mcg/actuation HFA aerosol inhaler 2 puff inhalation Q4H PRN (Reason: wheezing) ibuprofen 600 mg tablet 600 mg PO Q8H PRN (Reason: headache) melatonin 5 mg tablet 5 - 10 mg PO BEDTIME PRN rosuvastatin 10 mg tablet 10 mg PO QAM clonazepam 0.5 mg tablet 1 mg PO BID PRN nicotine (polacrilex) 2 mg lozenge 2 mg PO simethicone [Gas Relief Extra Strength] 125 mg capsule 125 mg PO BEDTIME multivitamin Tablet 1 tab PO QAM testosterone cypionate 200 mg/mL oil 200 mg IM Q2W 28 Days Qty: 2 1RF (DME) syringe (disposable) [BD Luer-Vira Syringe] 3 mL syringe See Rx Instructions .Route Qty: 25 0RF Rx Instructions: As directed 1 syringe [id number] 2 syringes total per month for T injection (DME) BD Regular [place]vel [place] 22 gauge x 1 1/2 needle See Rx Instructions .MEDSUPPLY Qty: 30 0RF Rx Instructions: As directed Print Language: [place]
[2023-12-17 16:53] LABS: MANUAL DIFF FLAG NO
[2023-12-17 16:54] VITALS: BP 121/67; PULSE 62; RESP 16; TEMP 37.4; O2SAT 98
[2023-12-17 16:55] LABS: Basophils Absolute Auto 0.1 X10*3/uL (0.0-0.2); Basophils Percent Auto 0.7 % (0-2); Eosinophils Absolute Auto 0.3 X10*3/uL (0.0-0.4); Eosinophils Percent Auto 3.5 % (0-4); Hemoglobin 13.5 g/dl (14.0-18.0); Imm Gran Abs Auto 0.01 X10*3/uL (0.00-0.03); Imm Gran Pct Auto 0.1 % (0.0-0.4); Lymphocytes Absolute Auto 2.3 X10*3/uL (1.2-4.9); Lymphocytes Percent Auto 32.6 % (20-40); Mean Corpuscular HGB Conc 33.8 g/dl (31.0-36.0); Mean Corpuscular Hemoglobin 31.8 pg (27.0-33.0); Mean Corpuscular Volume 94.1 fL (80.0-98.0); Mean Platelet Volume 10.9 fL (9.4-12.4); Monocytes Absolute Auto 0.5 X10*3/uL (0.1-1.2); Monocytes Percent Auto 6.8 % (2-11); Neutrophils Percent Auto 56.3 % (45-73); Platelet Count 190 X10*3/uL (160-400); Red Blood Count 4.25 X10*6/uL (4.60-5.80); Red Cell Distribution Width 12.9 % (11.0-16.0); White Blood Count 7.1 X10*3/uL (4.8-10.8)
--- NOTE | 2023-12-17 16:55 | MHC.EDTECH ---
THIS PCT JUST ASSUMED CARE OF PATIENT ,VITALS TAKEN ,BLOOD DRAWN AND RSV/COVID SWAB COLLECTED AND ALL SENT TO LAB .
[2023-12-17 17:00] LABS: Prothrombin Time 11.8 SEC (11.1-13.3)
[2023-12-17 17:25] LABS: Troponin-I High Sensitivity < 2.7 ng/L (<3.5-35.0)
[2023-12-17 17:31] LABS: Influenza A PCR NEGATIVE (Negative); Influenza B PCR NEGATIVE (Negative); Resp Syncy Virus RNA Qual PCR NEGATIVE (Negative); SARS COV2 PCR INHOUSE NEGATIVE (Negative)
[2023-12-17 17:43] LABS: Alanine Aminotransferase 20 U/L (0-40); Albumin Level 4.2 g/dL (3.5-5.0); Alkaline Phosphatase 50 U/L (39-117); Anion Gap 13 (12-20); Aspartate Amino Transferase 21 U/L (5-37); Bilirubin Total 0.9 mg/dL (0.0-1.0); Blood Urea Nitrogen 15 mg/dL (9-16); Calcium 8.9 mg/dL (8.4-10.2); Carbon Dioxide 26 mmol/L (22-29); Chloride 103 mmol/L (96-108); Creatinine Clr Calc Pharmacy 81.2; Estimated Glomerular Filt Rate > 60; Glucose Random 115 mg/dL (60-115); Lipase 18 U/L (8-78); Potassium 3.6 mmol/L (3.3-5.1); Sodium 138 mmol/L (135-145); Total Protein 7.3 g/dL (6.5-8.0)
[2023-12-17 18:03] VITALS: BP 121/57; PULSE 67; RESP 16; TEMP 36.7; O2SAT 98
[2023-12-17 18:23] VITALS: BP 121/57; PULSE 67; RESP 16; TEMP 36.7; O2SAT 98
== END 2023-12-17 18:24 | disposition home or self-care (01) ==
PROVIDERS: Physician Assistant; Emergency Provider Emergency Medicine; PCP Registered Nurse
DX: J01.90 Acute sinusitis, unspecified (principal); I10 Essential (primary) hypertension
CPT/HCPCS: 0241U; 36415; 71046; 80053; 83690; 84484; 85025; 85610; 93005; 99283; 99284

== ENCOUNTER → 2023-12-17 13:56 | Outpatient (BNV) | payer MEDICAID, SELFPAY | PROVIDERS: Emergency Provider Emergency Medicine; PCP Registered Nurse; Visit Provider Internal Medicine | DX: R07.9 Chest pain, unspecified (principal) | CPT/HCPCS: 93010 ==

== ENCOUNTER 2024-01-15 17:39 | Outpatient (REF) | payer MEDICAID, SELFPAY ==
[2024-01-15 18:06] LABS: Appearance Urine Clear; Color Urine Yellow; Glucose Urine UA Negative (Negative); Leukocyte Esterase Urine Negative (Negative); Nitrite Urine Negative (Negative); PH 7.5 (5.0-9.0); Urine Blood Negative (Negative); Urine Ketones Negative (Negative); Urine Protein Negative (Neg-Trace)
[2024-01-15 18:12] LABS: Bacteria Urine None Seen (None Seen); Hyaline Casts Urine 0-2 /LPF (0-2); RBC Urine 0-2 /HPF (0-2); Squamous Epithelial Cell Urine 0-2 /HPF (0-2); WBC Urine 0-5 /HPF (0-5)
== END 2024-01-15 17:40 | disposition home or self-care (01) ==
LOC: HO.HHCLNP 17:39
PROVIDERS: Visit Provider Internal Medicine Geriatric Medicine
DX: N40.0 Benign prostatic hyperplasia without lower urinary tract symptoms (principal); R39.9 Unspecified symptoms and signs involving the genitourinary system
CPT/HCPCS: 81001

== ENCOUNTER 2024-03-19 09:29 | Outpatient (REF) | payer MEDICAID, SELFPAY ==
[2024-03-19 11:23] LABS: Hemoglobin 14.4 g/dl (14.0-18.0); Mean Corpuscular HGB Conc 33.5 g/dl (31.0-36.0); Mean Corpuscular Hemoglobin 31.9 pg (27.0-33.0); Mean Corpuscular Volume 95.1 fL (80.0-98.0); Mean Platelet Volume 11.8 fL (9.4-12.4); Platelet Count 181 X10*3/uL (160-400); Red Blood Count 4.52 X10*6/uL (4.60-5.80); Red Cell Distribution Width 12.9 % (11.0-16.0); White Blood Count 5.9 X10*3/uL (4.8-10.8)
[2024-03-19 12:27] LABS: Estimated Average Glucose 114 mg/dL; Hemoglobin A1c % 5.6 % (<6.0)
[2024-03-19 15:37] LABS: Alanine Aminotransferase 23 U/L (0-40); Albumin Level 4.4 g/dL (3.5-5.0); Alkaline Phosphatase 52 U/L (39-117); Anion Gap 14 (12-20); Aspartate Amino Transferase 25 U/L (5-37); Beta-Hydroxybutyrate 0.05 mmol/L (0.02-0.27); Bilirubin Direct 0.4 mg/dL (0.0-0.5); Bilirubin Total 1.3 mg/dL (0.0-1.0); Blood Urea Nitrogen 17 mg/dL (9-16); Calcium 9.9 mg/dL (8.4-10.2); Carbon Dioxide 27 mmol/L (22-29); Chloride 102 mmol/L (96-108); Cholesterol 112 mg/dL (<200); Estimated Glomerular Filt Rate > 60; Glucose Random 95 mg/dL (60-115); HDL Cholesterol 41 mg/dL (>40); LDL Cholesterol Calculated 58 mg/dL (<100); Potassium 4.3 mmol/L (3.3-5.1); Sodium 139 mmol/L (135-145); Total Protein 7.1 g/dL (6.5-8.0); Triglycerides 66 mg/dL (<150)
[2024-03-19 15:51] LABS: Free T4 (Free Thyroxine) 0.94 ng/dL (0.71-1.85); Insulin 4 uU/mL (2-29); Vitamin D 25-OH Total 36.1 ng/mL (>30)
[2024-03-20 14:12] LABS: C Peptide 1.29 ng/mL (0.80-3.85)
== END 2024-03-19 09:30 | disposition home or self-care (01) ==
LOC: HO.HHCL 09:29
PROVIDERS: Visit Provider Family Medicine
DX: R25.1 Tremor, unspecified (principal)
CPT/HCPCS: 36415; 80048; 80061; 80076; 82010; 82306; 83036; 83525; 84439; 84443; 84681; 85027

== ENCOUNTER 2024-03-31 11:50 | Outpatient (REF) | payer MEDICAID, SELFPAY ==
[2024-04-03 02:29] LABS: TS Negative Control Passed; TS Panel A 37; TS Panel B 2; TS Positive Control Passed; TSpotTB Positive (Negative)
== END 2024-03-31 11:51 | disposition home or self-care (01) ==
LOC: HO.HHCL 11:50
PROVIDERS: Visit Provider Registered Nurse
DX: Z11.1 Encounter for screening for respiratory tuberculosis (principal)
CPT/HCPCS: 36415; 86481

== ENCOUNTER 2024-04-08 12:02 | Outpatient (REF) | payer MEDICAID, SELFPAY | END 2024-04-08 12:03 | disposition home or self-care (01) | LOC: HO.HHCX 12:02 | PROVIDERS: Visit Provider Registered Nurse | DX: Z13.89 Encounter for screening for other disorder (principal) ==

== ENCOUNTER 2024-04-09 11:40 | Outpatient (REF) | payer MEDICAID, SELFPAY ==
--- NOTE | ~2024-04-09 | XR_ITS ---
EXAMINATION: XR CHEST CLINICAL INFORMATION: Cough. COMPARISON: 12/17/2023 TECHNIQUE: 2 views of the chest were obtained. FINDINGS: The lungs are well expanded. No focal consolidation. No pleural effusion. Cardiac silhouette is unchanged. XR/XR chest 2V IMPRESSION: No acute abnormality.
== END 2024-04-09 11:41 | disposition home or self-care (01) ==
LOC: HO.HHCX 11:40
PROVIDERS: Visit Provider Registered Nurse
DX: R76.11 Nonspecific reaction to tuberculin skin test without active tuberculosis (principal)
CPT/HCPCS: 71046

== ENCOUNTER 2024-05-21 15:53 | Outpatient (REF) | payer MEDICAID, SELFPAY ==
--- NOTE | ~2024-05-21 | XR_ITS ---
EXAMINATION: XR HIP, RIGHT CLINICAL INFORMATION: Right hip pain. COMPARISON: None available. TECHNIQUE: Two views of the right hip. FINDINGS: No fracture. Alignment is anatomic. Hip joint space is maintained. Soft tissues are unremarkable. XR/XR hip RT min 2V IMPRESSION: No significant abnormality identified. Electronically signed by: Esau Starks MD 05/22/2024 04:54 AM EDT
== END 2024-05-21 15:54 | disposition home or self-care (01) ==
LOC: HO.HHCX 15:53
PROVIDERS: Visit Provider Student in an Organized Health Care Education/Training Program
DX: M25.551 Pain in right hip (principal)
CPT/HCPCS: 73502

== ENCOUNTER 2024-05-29 12:58 | Outpatient (REF) | payer MEDICAID, SELFPAY ==
[2024-05-29 14:01] LABS: Hematocrit 42.7 % (42.0-52.0); Hemoglobin 14.3 g/dl (14.0-18.0); Mean Corpuscular HGB Conc 33.5 g/dl (31.0-36.0); Mean Corpuscular Hemoglobin 31.8 pg (27.0-33.0); Mean Corpuscular Volume 95.1 fL (80.0-98.0); Mean Platelet Volume 11.5 fL (9.4-12.4); Platelet Count 172 X10*3/uL (160-400); Red Blood Count 4.49 X10*6/uL (4.60-5.80); Red Cell Distribution Width 13.2 % (11.0-16.0); White Blood Count 7.2 X10*3/uL (4.8-10.8)
[2024-05-29 14:58] LABS: Prostate Specific Antigen 2.36 ng/mL (<0.05-4.0)
[2024-06-03 17:33] LABS: Testosterone, Total 697 ng/dL (250-1100)
== END 2024-05-29 12:59 | disposition home or self-care (01) ==
LOC: HO.LAB 12:58
PROVIDERS: PCP Registered Nurse; Visit Provider Urology
DX: E29.1 Testicular hypofunction (principal)
CPT/HCPCS: 36415; 84153; 84403; 85027

== ENCOUNTER 2024-06-04 09:25 | Outpatient (AMB) | payer MEDICAID, SELFPAY ==
--- NOTE | 2024-06-04 09:25 | A.OFFVIS_ITS ---
Intake Visit Reasons: 6M Follow Up-PSA/Testo(Testo pending) Intake Note: Patient is present for 6M F/U PSA/TESTO Urology Medication:TAMSULOSIN, TESTOSTERONE Blood Thinner:NONE ALLERGIES: NONE Senior Director Of Strategy Required: No Allergies No Known Drug Allergies Allergy (Mild, Verified 06/04/24 09:27) Unknown SEAFOOD Allergy (Severe, Uncoded 06/04/24 09:27) ANAPHYLAXIS shellfish Allergy (Severe, Uncoded 06/04/24 09:27) Anaphylaxis Medication List - Last Reconciled 06/04/24 by Julian Lux MD albuterol sulfate 90 mcg/actuation (Ventolin HFA) 2 puffs inhalation Q4H PRN amoxicillin-pot clavulanate 875-125 mg 1 tab PO BID 7 days ascorbic acid (vitamin C) (Vitamin C) 500 mg PO DAILY bisacodyl (Dulcolax (bisacodyl)) 10 mg (2 x 5 mg) PO ONCE 1 day cetirizine 10 mg PO DAILY PRN cholecalciferol (vitamin D3) (Vitamin D3) 50 mcg PO DAILY clonazepam 1 mg PO DAILY clonazepam 1 mg PO BID PRN docusate sodium (Colace) 200 mg (2 x 100 mg) PO BEDTIME 30 days ferrous sulfate (FeroSul) 325 mg PO DAILY fluoxetine 20 mg PO QAM fluticasone propionate 50 mcg/actuation (Flonase Allergy Relief) 1 spray intranasal DAILY hydroxyzine HCl 25 mg PO TID PRN ibuprofen 600 mg PO Q8H PRN lidocaine 5% (Lidoderm) 0 patches topical melatonin 5 - 10 mg PO BEDTIME PRN methadone 36 mg PO DAILY mirtazapine 15 mg PO BEDTIME multivitamin 1 tab PO QAM needle (disp) 18 G (BD Regular Bevel [place]) As directed needle (disp) 22 G As directed nicotine 0 patches topical nicotine (polacrilex) 2 mg PO omeprazole 20 mg PO DAILY pantoprazole 40 mg (2 x 20 mg) PO DAILY phenylephrine HCl (Sudafed PE) 10 mg PO Q6H PRN polyethylene glycol 3350 (Miralax) 238 grams PO ONCE 1 day rosuvastatin 10 mg PO QAM sennosides (senna) 17.2 mg PO DAILY simethicone (Gas Relief Extra Strength) 125 mg PO BEDTIME syringe (disposable) (BD Luer-Vira Syringe) As directed 1 syringe [id number] 2 syringes total per month for T injection tamsulosin 0.8 mg (2 x 0.4 mg) PO DAILY 90 days testosterone cypionate 200 mg IM Q2W 28 days trazodone 25 mg PO BEDTIME HPI Comments Details: John is a male. He is a patient of Dr. Mar. He is seen for the following urologic conditions - hypogonadism - lower urinary tract symptoms Setswana translation provided by qualified medical services coordinator Lab work within normal range Continue Q six-month follow-up Performing injection once every 2 weeks 1 cc Noted weakness of stream on discussion with nocturia and feelings of incomplete emptying Trial alfuzosin Hypogonadism Patient states everything is going well not having any complications or side effects which were reviewed the potential morbidity mortality of testosterone placement therapy reviewed all questions answered informed consent obtained. Injection day - Laboratory - Sunday Current therapy 1 cc every 2 weeks to his thigh testosterone cypionate Laboratories - 06/23 T 362, PSA 1.5, Hct 41.4, 06/24 T 159 H 42, 09/26 T 365, 05/27 T 700 P 2.4 Concurrent comorbidities - methadone use, nicotine Discussed laboratory results Follow in 6 months [facility] Medical History Anemia Hx of substance abuse Smoker History of Helicobacter pylori infection Spinal pain Hypogonadism Erectile dysfunction Hx: UTI (urinary tract infection) BPH (benign prostatic hyperplasia) Hx of hepatitis C GERD (gastroesophageal reflux disease) Anxiety and depression HTN (hypertension) Murmur Surgical History Hx of cystoscopy Family History Mother Diabetes Social History Alcohol intake: former Patient Tobacco Use Status: Current everyday Tobacco user Substance Use Type: Former Substance User Current occupational status: unemployed Review of Systems Const Denies chills and Denies fever(s) Card Reports no additional complaints and Denies syncope Resp Denies cough GI Denies abdominal pain and Denies heartburn Reports as per HPI and Denies change in libido Neuro Denies syncope Psych Denies change in libido Endo Denies change in libido Physical Exam Const General: cooperative, healthy appearing, comfortable and no acute distress Orientation/consciousness: patient oriented x3 HEENT Face and sinus: Yes normal facial exam Mouth: moist mucous membranes Neck Neck: Yes normal visual inspection, Yes full ROM and Yes trachea midline Chest Chest palpation & inspection: normal inspection of the chest Resp Effort & Inspection: normal respiratory effort, able to speak in complete sentences and no respiratory distress GI Inspection: Yes normal to inspection Back/Spine/Pelvis Cervical Spine: normal cervical lordosis Thoracic/Lumbar Spine: thoracic and lumbar spine normal to inspection Skin General skin exam: no rashes or lesions noted Neuro General: patient oriented x3, gait normal, tone normal and moves all extremities Extrem General: Yes normal to inspection and Yes capillary refill normal Results AMB Urinalysis, Automated UA Leukoctes 0 [place]/uL Last Edit by STEFAN Emmanuel on 06/04/24 09:48 UA Nitrite Negative Last Edit by STEFAN Emmanuel on 06/04/24 09:48 UA Urobilinogen 0.2 mg/dL Last Edit by STEFAN Emmanuel on 06/04/24 09:4 8 UA Protein 15 mg/dL Last Edit by STEFAN Emmanuel on 06/04/24 09:48 UA pH 8.5 Last Edit by STEFAN Emmanuel on 06/04/24 09:48 UA Blood 0 [place]/uL Last Edit by STEFAN Emmanuel on 06/04/24 09:48 UA Specific [place] 1.010 Last Edit by STEFAN Emmanuel on 06/04/24 09: 48 UA Ketone Negative Last Edit by STEFAN Emmanuel on 06/04/24 09:48 UA Bilirubin 0 mg/dL Last Edit by STEFAN Emmanuel on 06/04/24 09:48 UA Glucose 0 mg/dL Last Edit by STEFAN Emmanuel on 06/04/24 09:48 Results Reviewed Results Reviewed: Laboratory Last Values Urine pH (Auto) 8.5 06/04/24 09:48 Specific [place] (Auto) 1.010 06/04/24 09:48 Urine Protein (Auto) 15 mg/dL 06/04/24 09:48 Glucose (UA)(Auto) 0 mg/dL 06/04/24 09:48 Urine Ketones (Auto) Negative 06/04/24 09:48 Urine Blood (Auto) 0 [place]/uL 06/04/24 09:48 Urine Nitrite (Auto) Negative 06/04/24 09:48 Urine Bilirubin (Auto) 0 mg/dL 06/04/24 09:48 Urine Urobilinogen (Auto) 0.2 mg/dL 06/04/24 09:48 Leukocyte Esterase (Auto) 0 [place]/uL 06/04/24 09:48 Assessment & Plan Assessment & Plan (1) BPH (benign prostatic hyperplasia): Code(s): N40.0 - Benign prostatic hyperplasia without lower urinary tract symptoms Category: Medical (2) Hypogonadism in male: Code(s): E29.1 - Testicular hypofunction Category: Medical (3) Erectile dysfunction: Code(s): N52.9 - Male erectile dysfunction, unspecified Category: Medical Plan Two month follow-up tele Orders: Orders AMB Urinalysis Automated Today Z13.9 - Encounter for screening, unspecified Medications: New alfuzosin ER Take before bedtime 10 mg PO BEDTIME 30 days 30 tabs 1RF N40.0 - Benign prostatic hyperplasia without lower urinary tract symptoms Refilled testosterone cypionate 200 mg IM Q2W 28 days 2 mL 5RF E29.1 - Testicular hypofunction Patient Instructions: Imaging studies, laboratory and physical exam results were discussed and reviewed in detail. No major barriers to patient understanding were identified. An opportunity to ask questions regarding the treatment plan was provided. All questions were answered. The patient expressed understanding and agreement with the above treatment plan. The patient is aware they should contact our office by phone for worsening of their current condition or the appearance of new urologic symptoms. Compliance is encouraged with any medications and followup testing that is ordered. It is a privilege to participate in the urologic care of your patient. If you have any questions or concerns regarding treatment for the above conditions, or other urologic issues, please do not hesitate to contact me. The office telephone contact is [phone]. This note is constructed using voice recognition software. While every effort has been made to ensure accuracy instructional developer errors may have been included. Yours sincerely, Dr Julian Lux MD, [facility] - Urology Providers of Expert, Compassionate Care for the Genitourinary System Coding Level of Care Code Est Pt Level 4 (20525) Diagnoses BPH (benign prostatic hyperplasia) N40.0 Hypogonadism in male E29.1 Erectile dysfunction N52.9
== END 2024-06-04 10:01 | disposition home or self-care (01) ==
PROVIDERS: PCP Registered Nurse; Referring Provider Registered Nurse; Visit Provider Urology
DX: N40.0 Benign prostatic hyperplasia without lower urinary tract symptoms (principal); E29.1 Testicular hypofunction; N52.9 Male erectile dysfunction, unspecified
CPT/HCPCS: 99214

== ENCOUNTER → 2024-06-04 09:25 | Outpatient (BNVA) | payer MEDICAID, SELFPAY | PROVIDERS: PCP Registered Nurse; Visit Provider Urology | DX: N40.0 Benign prostatic hyperplasia without lower urinary tract symptoms (principal); E29.1 Testicular hypofunction; N52.9 Male erectile dysfunction, unspecified | CPT/HCPCS: 81003; 99212 ==

== ENCOUNTER 2024-06-20 15:01 | Outpatient (REF) | payer MEDICAID, SELFPAY ==
[2024-06-20 16:27] LABS: MANUAL DIFF FLAG NO
[2024-06-20 16:32] LABS: Basophils Percent Auto 0.5 % (0-2); Eosinophils Absolute Auto 0.2 X10*3/uL (0.0-0.4); Eosinophils Percent Auto 2.3 % (0-4); Hematocrit 43.2 % (42.0-52.0); Hemoglobin 14.7 g/dl (14.0-18.0); Imm Gran Abs Auto 0.03 X10*3/uL (0.00-0.03); Imm Gran Pct Auto 0.4 % (0.0-0.4); Lymphocytes Absolute Auto 2.1 X10*3/uL (1.2-4.9); Mean Corpuscular Hemoglobin 32.3 pg (27.0-33.0); Mean Corpuscular Volume 94.9 fL (80.0-98.0); Mean Platelet Volume 11.5 fL (9.4-12.4); Monocytes Absolute Auto 0.6 X10*3/uL (0.1-1.2); Monocytes Percent Auto 6.8 % (2-11); Neutrophils Absolute Auto 5.3 x10*3/uL (2.0-8.3); Platelet Count 195 X10*3/uL (160-400); Red Blood Count 4.55 X10*6/uL (4.60-5.80); Red Cell Distribution Width 13.1 % (11.0-16.0); White Blood Count 8.2 X10*3/uL (4.8-10.8)
[2024-06-20 16:42] LABS: Estimated Average Glucose 117 mg/dL; Hemoglobin A1C 138.9152 umol/L; Hemoglobin A1c % 5.7 % (<6.0); Total Hemoglobin (HGBA1C) 3576.4049 umol/L
[2024-06-20 16:46] LABS: Anion Gap 13 (12-20); Blood Urea Nitrogen 13 mg/dL (9-16); Calcium 9.5 mg/dL (8.4-10.2); Carbon Dioxide 30 mmol/L (22-29); Chloride 102 mmol/L (96-108); Estimated Glomerular Filt Rate > 60; Glucose Random 104 mg/dL (60-115); Magnesium 1.9 mg/dL (1.6-2.6); Potassium 3.6 mmol/L (3.3-5.1); Sodium 141 mmol/L (135-145)
[2024-06-20 17:08] LABS: Ferritin 126 ng/mL (20-250)
== END 2024-06-20 15:02 | disposition home or self-care (01) ==
LOC: HO.HHCL 15:01
PROVIDERS: Nurse Practitioner Primary Care; Visit Provider Registered Nurse
DX: G25.81 Restless legs syndrome (principal); R42 Dizziness and giddiness
CPT/HCPCS: 36415; 80048; 82728; 83036; 83735; 85025

== ENCOUNTER 2024-06-30 12:17 | Outpatient (REF) | payer MEDICAID, SELFPAY ==
--- NOTE | ~2024-06-30 | XR_ITS ---
EXAMINATION: XR LUMBAR SPINE CLINICAL INFORMATION: Lumbar radiculopathy. COMPARISON: 10/25/2018 TECHNIQUE: 5 views of the lumbar spine. FINDINGS: Mild dextroscoliosis of the lumbar spine. Straightening of the normal lumbar lordosis. Facet arthritis in the lower lumbar spine. Lumbar spondylosis with moderate loss of disc space height at L4-L5 and L5-S1. Moderate degenerative changes in the bilateral sacroiliac joints. XR/XR lumbar spine 4V min IMPRESSION: Moderate degenerative disc disease at L4-L5 and L5-S1. This study was presented today July 01, 2024 for interpretation. Stat results provided at this time as requested by referring provider. Electronically signed by: Gaby Hayward MD 07/01/2024 06:42 AM EDT
== END 2024-06-30 12:18 | disposition home or self-care (01) ==
LOC: HO.HHCX 12:17
PROVIDERS: Visit Provider Internal Medicine
DX: M54.16 Radiculopathy, lumbar region (principal)
CPT/HCPCS: 72110

== ENCOUNTER 2024-07-09 09:15 | Emergency (ER) | payer MEDICAID, SELFPAY ==
--- NOTE | ~2024-07-09 | CT_ITS ---
EXAMINATION: CT HEAD WITHOUT CONTRAST CLINICAL INFORMATION: Confusion COMPARISON: None available. TECHNIQUE: Contiguous axial imaging was performed from the skull base to vertex without intravenous administration of contrast. This CT examination was performed using dose optimization techniques as appropriate, variously including the following: *Automated exposure control *Adjustment of mA and/or kV according to patient size (this includes techniques or standardized protocols for targeted exams where dose is matched to indication/reason for exam; i.e. extremities or head) *Use of iterative reconstruction technique DLP: 661 mGy-cm FINDINGS: No intra or extra axial fluid collection, hemorrhage, mass, or mass effect. Calvarium intact. CT/CT head/brain wo IV con IMPRESSION: No acute intracranial pathology. Electronically signed by: Ellis Elaine MD 07/09/2024 02:05 PM [facility]
--- NOTE | ~2024-07-09 | XR_ITS ---
EXAMINATION: XR CHEST CLINICAL INFORMATION: sOB COMPARISON: X-ray dated April 09, 2024. TECHNIQUE: Frontal view of the chest was obtained. FINDINGS: Pulmonary reticular nodular pattern. No consolidation, pleural effusion or pneumothorax. Cardiomediastinal silhouette appears normal in size. S-shaped curvature of the thoracic spine. XR/XR chest 1V IMPRESSION: Chronic interstitial lung disease. Superimposed mild interstitial edema versus pneumonitis cannot be excluded. Electronically signed by: Darryl Zaidi MD 07/09/2024 12:09 PM [facility]
[2024-07-09 09:26] VITALS: BP 126/72; PULSE 77; RESP 16; TEMP 36.6; O2SAT 98; BMI 23.3
[2024-07-09 10:26] VITALS: BP 129/66; PULSE 70; RESP 16; TEMP 36.8; O2SAT 98
--- NOTE | 2024-07-09 10:38 | ECG_ITS ---
Test Reason : SOB Blood Pressure : / mmHG Vent. Rate : 072 BPM Atrial Rate : 072 BPM P-R Int : 142 ms QRS Dur : 076 ms QT Int : 372 ms P-R-T Axes : 009 -01 017 degrees QTc Int : 407 ms Normal sinus rhythm Nonspecific ST abnormality Abnormal ECG When compared with ECG of 17-DEC-2023 13:56, No significant change was found Referred By: Tammy Gamez Electronically Signed By:JHONATAN SANTILLAN MD
[2024-07-09 11:16] LABS: MANUAL DIFF FLAG NO
[2024-07-09 11:21] LABS: Basophils Percent Auto 0.5 % (0-2); Eosinophils Absolute Auto 0.1 X10*3/uL (0.0-0.4); Eosinophils Percent Auto 0.8 % (0-4); Hematocrit 43.1 % (42.0-52.0); Hemoglobin 14.7 g/dl (14.0-18.0); Imm Gran Abs Auto 0.02 X10*3/uL (0.00-0.03); Imm Gran Pct Auto 0.3 % (0.0-0.4); Lymphocytes Absolute Auto 1.1 X10*3/uL (1.2-4.9); Mean Corpuscular HGB Conc 34.1 g/dl (31.0-36.0); Mean Corpuscular Volume 93.9 fL (80.0-98.0); Monocytes Absolute Auto 0.3 X10*3/uL (0.1-1.2); Monocytes Percent Auto 4.4 % (2-11); Neutrophils Absolute Auto 4.7 x10*3/uL (2.0-8.3); Platelet Count 203 X10*3/uL (160-400); Red Blood Count 4.59 X10*6/uL (4.60-5.80); Red Cell Distribution Width 12.9 % (11.0-16.0); White Blood Count 6.1 X10*3/uL (4.8-10.8)
[2024-07-09 11:22] LABS: VBG Base Excess 6.1 mmol/L; VBG HCO3 33 mmol/L (22-26); VBG pCO2 60 mmHg; VBG pH 7.35 (7.32-7.43); VBG pO2 38 mmHg
--- NOTE | 2024-07-09 11:25 | ED.GENADULT ---
HPI - General Adult General Chief complaint: Back Pain/Injury Stated complaint: high bp-fatigue Time Seen by Provider: 07/09/24 11:24 Source: patient Mode of arrival: ambulatory Limitations: no limitations History of Present Illness ED Provider: Dr. 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 54yo male with psych history, bph, GERD, presents with anxiousness, forgetfullness, tremulousness, and leg pain for weeks. brings him in because she says he is not the same and is worried about parkinsonism Onset (ago): month(s) Related Data Home Medications ?Medication ?Instructions ?Recorded ?Confirmed cholecalciferol (vitamin D3) 50 50 mcg PO DAILY 06/30/20 06/04/24 mcg (2,000 unit) capsule (Vitamin D3) clonazepam 1 mg tablet 1 mg PO DAILY 06/30/20 06/04/24 fluticasone propionate 50 1 spray intranasal DAILY 06/30/20 06/04/24 mcg/actuation nasal spray,suspension (Flonase Allergy Relief) hydroxyzine HCl 25 mg tablet 25 mg PO TID PRN Itching 06/30/20 06/04/24 methadone 40 mg soluble tablet 36 mg PO DAILY 06/30/20 06/04/24 omeprazole 20 mg capsule,delayed 20 mg PO DAILY 06/30/20 06/04/24 release fluoxetine 10 mg capsule 20 mg PO QAM 10/20/21 06/04/24 mirtazapine 15 mg tablet 15 mg PO BEDTIME 10/20/21 06/04/24 trazodone 50 mg tablet 25 mg PO BEDTIME 10/20/21 06/04/24 ascorbic acid (vitamin C) 500 mg 500 mg PO DAILY 12/16/21 06/04/24 tablet (Vitamin C) ferrous sulfate 325 mg (65 mg 325 mg PO DAILY 12/16/21 06/04/24 iron) tablet (FeroSul) lidocaine 5 % topical patch 0 patch topical 12/16/21 06/04/24 (Lidoderm) sennosides 8.6 mg tablet (senna) 17.2 mg PO DAILY 12/16/21 06/04/24 cetirizine 10 mg tablet 10 mg PO DAILY PRN congestion 05/18/22 06/04/24 nicotine 14 mg/24 hr daily 0 patch topical 06/22/22 06/04/24 transdermal patch albuterol sulfate 90 mcg/actuation 2 puff inhalation Q4H PRN wheezing 01/12/23 06/04/24 aerosol inhaler (Ventolin HFA) clonazepam 0.5 mg tablet 1 mg PO BID PRN 01/12/23 06/04/24 ibuprofen 600 mg tablet 600 mg PO Q8H PRN headache 01/12/23 06/04/24 melatonin 5 mg tablet 5 - 10 mg PO BEDTIME PRN 01/12/23 06/04/24 multivitamin 1 tab PO QAM 01/12/23 06/04/24 nicotine (polacrilex) 2 mg buccal 2 mg PO 01/12/23 06/04/24 lozenge rosuvastatin 10 mg tablet 10 mg PO QAM 01/12/23 06/04/24 simethicone 125 mg capsule (Gas 125 mg PO BEDTIME 01/12/23 06/04/24 Relief Extra Strength) Previous Rx's ?Medication ?Instructions ?Recorded docusate sodium 100 mg capsule 200 mg (2 x 100 mg) PO BEDTIME 30 06/03/20 (Colace) days #60 caps bisacodyl 5 mg tablet,delayed 10 mg (2 x 5 mg) PO ONCE 05/18/22 release (Dulcolax (bisacodyl)) colonoscopy prep 1 day #2 tabs polyethylene glycol 3350 17 238 g PO ONCE 1 day #238 grams 05/18/22 gram/dose oral powder (Miralax) pantoprazole 20 mg tablet,delayed 40 mg (2 x 20 mg) PO DAILY #60 tabs 11/27/22 release needle (disp) 22 G 22 gauge x 1 #30 ea 11/06/23 12 syringe (disposable) 3 mL (BD #25 ea 11/06/23 Luer-Vira Syringe) needle (disp) 18 G 18 gauge x 1 #30 ea 11/29/23 12 (BD Regular Bevel [place]) amoxicillin 875 mg-potassium 1 tab PO BID 7 days #14 tabs 12/17/23 clavulanate 125 mg tablet phenylephrine HCl 10 mg tablet 10 mg PO Q6H PRN nasal congestion 12/17/23 (Sudafed PE) #10 tabs tamsulosin 0.4 mg capsule 0.8 mg (2 x 0.4 mg) PO DAILY 90 05/22/24 days #180 caps alfuzosin 10 mg tablet,extended 10 mg PO BEDTIME 30 days #30 tabs 06/04/24 release 24 hr testosterone cypionate 200 mg/mL 200 mg IM Q2W 28 days #2 mL 06/04/24 intramuscular oil Allergies Allergy/AdvReac Type Severity Reaction Status Date / Time No Known Drug Allergies Allergy Mild Unknown Verified 07/09/24 09:32 SEAFOOD Allergy Severe ANAPHYLAXIS Uncoded 07/09/24 09:32 shellfish Allergy Severe Anaphylaxis Uncoded 07/09/24 09:32 Review of Systems Review of Systems: Yes all other systems are reviewed and are negative Neurologic: Denies Sensory deficit (Neuro) [facility] Past Medical History Medical History Anemia Hx of substance abuse Smoker History of Helicobacter pylori infection Spinal pain Hypogonadism Erectile dysfunction Hx: UTI (urinary tract infection) BPH (benign prostatic hyperplasia) Hx of hepatitis C GERD (gastroesophageal reflux disease) Anxiety and depression HTN (hypertension) Murmur Surgical History Hx of cystoscopy Family History Family History Mother Diabetes Social History Social History Alcohol intake: former Patient Tobacco Use Status: Current everyday Tobacco user Use of substances other than those prescribed or required for medical reasons: No Substance Use Type: Former Substance User Advance Directives: No Do you have a plan to hurt others: No Plan Current occupational status: unemployed Physical Exam ED Vital Signs: Vital Signs - 24 hr 07/09/24 09:26 07/09/24 10:26 07/09/24 11:58 Temperature 98 F 98.3 F 98.2 F Pulse Rate 77 70 60 Respiratory Rate 16 16 16 Blood Pressure 126/72 129/66 105/60 Pulse Oximetry 98 98 96 Oxygen Delivery Method Room Air Room Air Room Air 07/09/24 14:13 07/09/24 16:00 Temperature 98.5 F 98.3 F Pulse Rate 76 79 Respiratory Rate 16 16 Blood Pressure 134/76 126/69 Pulse Oximetry 96 96 Oxygen Delivery Method Room Air Room Air BMI result Body Mass Index 23.3 Const Other: male looking older than stated age, anxious with tremors Nutritional Appearance: average body habitus Orientation/consciousness: oriented to person Limitations: no limitations HENMT Head: Yes normal to inspection Ears: external ears normal General nose exam: Normal external nose present Mouth: Normal oral and palatal mucosa present and oropharynx normal Throat: Yes posterior oropharynx normal Eyes General: appearance normal, both eyes and all related structures Neck Neck: Yes normal visual inspection Chest Chest palpation & inspection: normal inspection of the chest Resp Auscultation: clear to auscultation bilaterally Cardio Jugular venous distension: no JVD Rate: regular rate Rhythm: regular rhythm Heart sounds: S1 normal heart sound present and S2 normal heart sound present GI Inspection: Yes normal to inspection Palpation (GI): Soft to palpation, nontender and No hepatosplenomegaly present Auscultation: normal bowel sounds General: Yes no CVA tenderness Back/Spine/Pelvis Back: no CVA tenderness Skin General skin exam: no rashes or lesions noted Neuro Other: tremors General: oriented to person Cranial nerves: Yes CN's II-XII intact bilaterally Motor exam (neuro): 5/5 motor strength present throughout Sensory Exam: No Sensory deficit (Neuro) Extrem General: Yes normal to inspection Psych Appearance: grossly normal Course Reevaluation(s) Reevaluation #1: no acute brain injury, electrolytes normal Time: 16:24 Medical Decision Making Differential Diagnosis Differential Diagnoses: The differential diagnosis associated with the presentation includes (parkinsonism, brain tumor, electrolyte abnormality, ) Admission/Observation Consideration of admission/observation: Escalation of care including admission/observation considered (upon arrival patient considered for admission) Lab Data 07/09/24 11:10 07/09/24 11:10 Labs: Lab Results 07/09/24 07/09/24 Range/Units 11:10 11:17 WBC 6.1 (4.8-10.8) X10*3/uL RBC 4.59 L (4.60-5.80) X10*6/uL Hgb 14.7 (14.0-18.0) g/dl Hct 43.1 (42.0-52.0) % MCV 93.9 (80.0-98.0) fL MCH 32.0 (27.0-33.0) pg MCHC 34.1 (31.0-36.0) g/dl RDW 12.9 (11.0-16.0) % Plt Count 203 (160-400) X10*3/uL MPV 11.0 (9.4-12.4) fL Immature Gran % (Auto) 0.3 (0.0-0.4) % Neut % (Auto) 76.0 H (45-73) % Lymph % (Auto) 18.0 L (20-40) % [place] % (Auto) 4.4 (2-11) % Eos % (Auto) 0.8 (0-4) % Baso % (Auto) 0.5 (0-2) % Lymph # (Auto) 1.1 L (1.2-4.9) X10*3/uL [place] # (Auto) 0.3 (0.1-1.2) X10*3/uL Eos # (Auto) 0.1 (0.0-0.4) X10*3/uL Baso # (Auto) 0.0 (0.0-0.2) X10*3/uL Abs Immat Gran (auto) 0.02 (0.00-0.03) X10*3/uL Absolute Neuts (auto) 4.7 (2.0-8.3) x10*3/uL Absolute Nucleated RBC 0.000 (0.0-0.012) X10*3/uL Nucleated RBC % (auto) 0.0 (0.0-0.2) /100WBC VBG pH 7.35 (7.32-7.43) VBG pCO2 60 mmHg VBG pO2 38 mmHg VBG HCO3 33 H (22-26) mmol/L VBG O2 Saturation 53.0 % VBG Base Excess 6.1 mmol/L Sodium 143 (135-145) mmol/L Potassium 4.2 (3.3-5.1) mmol/L Chloride 102 (96-108) mmol/L Carbon Dioxide 30 H (22-29) mmol/L Anion Gap 15 (12-20) BUN 12 (9-16) mg/dL Creatinine 1.02 (0.5-1.4) mg/dL Estim Creat Clear Calc 78.2 Estimated GFR > 60 Random Glucose 114 (60-115) mg/dL Calcium 10.0 (8.4-10.2) mg/dL Magnesium 2.0 (1.6-2.6) mg/dL Total Bilirubin 1.1 H (0.0-1.0) mg/dL AST 31 (5-37) U/L ALT 33 (0-40) U/L Alkaline Phosphatase 55 (39-117) U/L Troponin I High Sens < 2.7 (<3.5-35.0) ng/L B-Natriuretic Peptide < 10 (<100) pg/mL Total Protein 8.2 H (6.5-8.0) g/dL Albumin 4.9 (3.5-5.0) g/dL Influenza Type A (PCR) NEGATIVE (Negative) Influenza Type B (PCR) NEGATIVE (Negative) RSV RNA Qual (PCR) NEGATIVE (Negative) SARS-CoV-2 RNA (RT-PCR) NEGATIVE (Negative) Independent Interpretation I performed an independent interpretation of an: Plain X-Ray (CXR: chronic lung changes) Prescription Management I considered prescription management with: Antibiotic (no pneumonia on xray) Chronic Conditions Patient?s care impacted by: Other (psychiatric) Social Determinants Patient?s care significantly limited by Social Determinants of Health including: Alcoholism and drug addiction in family Discharge Plan Discharge Clinical Impression: Coarse tremors Patient Disposition: Home, Self-Care Prescriptions: No Action docusate sodium [Colace] 100 mg capsule 200 mg PO BEDTIME 30 Days Qty: 60 3RF pantoprazole 20 mg tablet,delayed release (DR/EC) 40 mg PO DAILY Qty: 60 6RF (DME) BD Regular Bevel [place] 18 gauge x 1 1/2 needle See Rx Instructions .MEDSUPPLY Qty: 30 0RF Rx Instructions: As directed tamsulosin 0.4 mg capsule 0.8 mg PO DAILY 90 Days Qty: 180 1RF clonazepam 1 mg Tablet 1 mg PO DAILY methadone 40 mg Tablet,Soluble 36 mg PO DAILY omeprazole 20 mg Capsule,Delayed Release(Dr/Ec) 20 mg PO DAILY hydroxyzine HCl 25 mg Tablet 25 mg PO TID PRN (Reason: Itching) fluticasone propionate [Flonase Allergy Relief] 50 mcg/actuation [place],Suspension 1 spray INTRANASAL DAILY cholecalciferol (vitamin D3) [Vitamin D3] 50 mcg (2,000 unit) Capsule 50 mcg PO DAILY amoxicillin-pot clavulanate 875-125 mg tablet 1 tab PO BID 7 Days Qty: 14 0RF phenylephrine HCl [Sudafed PE] 10 mg tablet 10 mg PO Q6H PRN (Reason: nasal congestion) Qty: 10 0RF trazodone 50 mg tablet 25 mg PO BEDTIME mirtazapine 15 mg tablet 15 mg PO BEDTIME fluoxetine 10 mg capsule 20 mg PO QAM nicotine 14 mg/24 hr patch 24 hour 0 patch topical bisacodyl [Dulcolax (bisacodyl)] 5 mg tablet,delayed release (DR/EC) 10 mg PO ONCE 1 Days Qty: 2 0RF Rx Instructions: Take 2 tablets by mouth at 12:00pm the day before your procedure. polyethylene glycol 3350 [Miralax] 17 gram/dose powder 238 g PO ONCE 1 Days Qty: 238 0RF Rx Instructions: Take as directed by mouth the day before your procedure. cetirizine 10 mg tablet 10 mg PO DAILY PRN (Reason: congestion) lidocaine [Lidoderm] 5 % adhesive patch,medicated 0 patch topical ferrous sulfate [FeroSul] 325 mg (65 mg iron) tablet 325 mg PO DAILY ascorbic acid (vitamin C) [Vitamin C] 500 mg tablet 500 mg PO DAILY sennosides [senna] 8.6 mg tablet 17.2 mg PO DAILY alfuzosin 10 mg tablet extended release 24 hr 10 mg PO BEDTIME 30 Days Qty: 30 1RF Rx Instructions: Take before bedtime testosterone cypionate 200 mg/mL oil 200 mg IM Q2W 28 Days Qty: 2 5RF albuterol sulfate [Ventolin HFA] 90 mcg/actuation HFA aerosol inhaler 2 puff inhalation Q4H PRN (Reason: wheezing) ibuprofen 600 mg tablet 600 mg PO Q8H PRN (Reason: headache) melatonin 5 mg tablet 5 - 10 mg PO BEDTIME PRN rosuvastatin 10 mg tablet 10 mg PO QAM clonazepam 0.5 mg tablet 1 mg PO BID PRN nicotine (polacrilex) 2 mg lozenge 2 mg PO simethicone [Gas Relief Extra Strength] 125 mg capsule 125 mg PO BEDTIME multivitamin Tablet 1 tab PO QAM (DME) syringe (disposable) [BD Luer-Vira Syringe] 3 mL syringe See Rx Instructions .Route Qty: 25 0RF Rx Instructions: As directed 1 syringe [id number] 2 syringes total per month for T injection (DME) BD Regular Bevel [place] 22 gauge x 1 1/2 needle See Rx Instructions .[facility] Qty: 30 0RF Rx Instructions: As directed Referrals: Fermín Ramos MD [Physician] - 1 week Print Language: [place]
[2024-07-09 11:35] LABS: Venous Blood Gas Refer to POC result
[2024-07-09 11:39] LABS: Alanine Aminotransferase 33 U/L (0-40); Albumin Level 4.9 g/dL (3.5-5.0); Alkaline Phosphatase 55 U/L (39-117); Anion Gap 15 (12-20); Aspartate Amino Transferase 31 U/L (5-37); Bilirubin Total 1.1 mg/dL (0.0-1.0); Blood Urea Nitrogen 12 mg/dL (9-16); Carbon Dioxide 30 mmol/L (22-29); Chloride 102 mmol/L (96-108); Creatinine Clr Calc Pharmacy 78.2; Estimated Glomerular Filt Rate > 60; Glucose Random 114 mg/dL (60-115); Potassium 4.2 mmol/L (3.3-5.1); Sodium 143 mmol/L (135-145); Total Protein 8.2 g/dL (6.5-8.0)
[2024-07-09 11:44] LABS: B Type Natriuretic Peptide < 10 pg/mL (<100)
[2024-07-09 11:51] LABS: Troponin-I High Sensitivity < 2.7 ng/L (<3.5-35.0)
[2024-07-09 11:55] LABS: Influenza A PCR NEGATIVE (Negative); Influenza B PCR NEGATIVE (Negative); Resp Syncy Virus RNA Qual PCR NEGATIVE (Negative); SARS COV2 PCR INHOUSE NEGATIVE (Negative)
[2024-07-09 11:58] VITALS: BP 105/60; PULSE 60; RESP 16; TEMP 36.8; O2SAT 96
[2024-07-09 14:13] VITALS: BP 134/76; PULSE 76; RESP 16; TEMP 36.9; O2SAT 96
[2024-07-09 16:00] VITALS: BP 126/69; PULSE 79; RESP 16; TEMP 36.8; O2SAT 96
[2024-07-09 16:50] VITALS: BP 126/69; PULSE 79; RESP 16; TEMP 36.8; O2SAT 96
== END 2024-07-09 16:51 | disposition home or self-care (01) ==
PROVIDERS: Physician Assistant Medical; Emergency Provider Emergency Medicine; PCP Registered Nurse
DX: G25.2 Other specified forms of tremor (principal); R06.02 Shortness of breath; Z03.818 Encounter for observation for suspected exposure to other biological agents ruled out; I10 Essential (primary) hypertension; F41.9 Anxiety disorder, unspecified; F32.A Depression, unspecified; F17.210 Nicotine dependence, cigarettes, uncomplicated; F11.20 Opioid dependence, uncomplicated; Z79.899 Other long term (current) drug therapy; Z79.02 Long term (current) use of antithrombotics/antiplatelets
CPT/HCPCS: 0241U; 36415; 70450; 71045; 80053; 82803; 83735; 83880; 84484; 85025; 93005; 99284; 99285

== ENCOUNTER → 2024-07-09 10:38 | Outpatient (BNV) | payer MEDICAID, SELFPAY | PROVIDERS: Emergency Provider Emergency Medicine; PCP Registered Nurse; Visit Provider Radiology Diagnostic Radiology | DX: R06.02 Shortness of breath (principal) | CPT/HCPCS: 71045 ==

== ENCOUNTER → 2024-07-09 10:38 | Outpatient (BNV) | payer MEDICAID, SELFPAY | PROVIDERS: Emergency Provider Emergency Medicine; PCP Registered Nurse; Visit Provider Internal Medicine Cardiovascular Disease | DX: R94.31 Abnormal electrocardiogram [ECG] [EKG] (principal) | CPT/HCPCS: 93010 ==

== ENCOUNTER 2024-07-24 13:28 | Emergency (ER) | payer MEDICAID, SELFPAY ==
--- NOTE | ~2024-07-24 | XR_ITS ---
EXAMINATION: XR LUMBOSACRAL SPINE CLINICAL INFORMATION: back pain COMPARISON: X-ray dated June 30, 2024. TECHNIQUE: Three views of the lumbosacral spine. FINDINGS: No acute cortical disruption or malalignment. Facet joint hypertrophy at L4-5 and L5-S1. No gross lytic or blastic lesions. Vascular complications.. XR/XR lumbar spine 2-3V IMPRESSION: Spondylosis L4-5 and L5-S1. Electronically signed by: Darryl Zaidi MD 07/24/2024 03:51 PM [facility]
--- NOTE | ~2024-07-24 | XR_ITS ---
EXAMINATION: XR CHEST CLINICAL INFORMATION: SOB COMPARISON: X-ray dated July 09, 2024 TECHNIQUE: Frontal view of the chest was obtained. FINDINGS: Indistinct margins in the perihilar regions. Pulmonary reticular nodular pattern. No pleural effusion. No pneumothorax. Heart silhouette size is normal. S-shaped curvature of the thoracic spine. XR/XR chest 1V IMPRESSION: Chronic interstitial lung disease with questionable mild interstitial edema versus airspace disease in the right middle lung lobe. Electronically signed by: Darryl Zaidi MD 07/24/2024 03:52 PM [facility]
[2024-07-24 13:31] VITALS: BP 119/77; PULSE 89; RESP 18; TEMP 37.1; O2SAT 97; BMI 22.8
--- NOTE | 2024-07-24 13:43 | ECG_ITS ---
Test Reason : CHRONIC SOB Blood Pressure : / mmHG Vent. Rate : 062 BPM Atrial Rate : 062 BPM P-R Int : 140 ms QRS Dur : 072 ms QT Int : 374 ms P-R-T Axes : 085 000 013 degrees QTc Int : 379 ms Normal sinus rhythm Normal ECG When compared with ECG of 09-JUL-2024 10:47, No significant change was found Referred By: Rah Dhaliwal Electronically Signed By:JHONATAN SANTILLAN MD
--- NOTE | 2024-07-24 13:44 | ED.GENADULT ---
HPI - General Adult General Chief complaint: General Medical Stated complaint: Fatigue, back pain, feet swelling Time Seen by Provider: 07/24/24 15:01 Source: patient, RN notes reviewed, old records reviewed and gis professor Mode of arrival: ambulatory Limitations: language barrier History of Present Illness ED Provider: Kehinde HPI narrative: 54-year-old male past medical history significant for BPH, GERD, constipation, substance abuse on methadone presents for evaluation of multiple complaints. Patient reports lower back pain that worsened 3 weeks ago. He reports having had a lumbar x-ray male about 2 months ago denies any recent falls or trauma. The patient reports that he relapsed with substances in April, 3 months ago but did not use any IV drugs he denies any fevers, chills he reports tremors and he was seen here 2 weeks ago for concern of parkinsonism. He has follow up with neurology but has not yet seen them. He did see his machine stoppage frequency checker this past Sunday the patient presents because he is having difficulty sleeping. He reports this is due to his back pain he also feels like he can not shut his brain off the patient is also planning to have a sleep study he denies any fevers or abdominal pain nausea vomiting. Denies any chest pain. He is ambulatory but his reports that for the last month or so he has been walking stiff. Related Data Home Medications ?Medication ?Instructions ?Recorded ?Confirmed cholecalciferol (vitamin D3) 50 50 mcg PO DAILY 06/30/20 06/04/24 mcg (2,000 unit) capsule (Vitamin D3) clonazepam 1 mg tablet 1 mg PO DAILY 06/30/20 06/04/24 fluticasone propionate 50 1 spray intranasal DAILY 06/30/20 06/04/24 mcg/actuation nasal spray,suspension (Flonase Allergy Relief) hydroxyzine HCl 25 mg tablet 25 mg PO TID PRN Itching 06/30/20 06/04/24 methadone 40 mg soluble tablet 36 mg PO DAILY 06/30/20 06/04/24 omeprazole 20 mg capsule,delayed 20 mg PO DAILY 06/30/20 06/04/24 release fluoxetine 10 mg capsule 20 mg PO QAM 10/20/21 06/04/24 mirtazapine 15 mg tablet 15 mg PO BEDTIME 10/20/21 06/04/24 trazodone 50 mg tablet 25 mg PO BEDTIME 10/20/21 06/04/24 ascorbic acid (vitamin C) 500 mg 500 mg PO DAILY 12/16/21 06/04/24 tablet (Vitamin C) ferrous sulfate 325 mg (65 mg 325 mg PO DAILY 12/16/21 06/04/24 iron) tablet (FeroSul) lidocaine 5 % topical patch 0 patch topical 12/16/21 06/04/24 (Lidoderm) sennosides 8.6 mg tablet (senna) 17.2 mg PO DAILY 12/16/21 06/04/24 cetirizine 10 mg tablet 10 mg PO DAILY PRN congestion 05/18/22 06/04/24 nicotine 14 mg/24 hr daily 0 patch topical 06/22/22 06/04/24 transdermal patch albuterol sulfate 90 mcg/actuation 2 puff inhalation Q4H PRN wheezing 01/12/23 06/04/24 aerosol inhaler (Ventolin HFA) clonazepam 0.5 mg tablet 1 mg PO BID PRN 01/12/23 06/04/24 ibuprofen 600 mg tablet 600 mg PO Q8H PRN headache 01/12/23 06/04/24 melatonin 5 mg tablet 5 - 10 mg PO BEDTIME PRN 01/12/23 06/04/24 multivitamin 1 tab PO QAM 01/12/23 06/04/24 nicotine (polacrilex) 2 mg buccal 2 mg PO 01/12/23 06/04/24 lozenge rosuvastatin 10 mg tablet 10 mg PO QAM 01/12/23 06/04/24 simethicone 125 mg capsule (Gas 125 mg PO BEDTIME 01/12/23 06/04/24 Relief Extra Strength) Previous Rx's ?Medication ?Instructions ?Recorded docusate sodium 100 mg capsule 200 mg (2 x 100 mg) PO BEDTIME 30 06/03/20 (Colace) days #60 caps bisacodyl 5 mg tablet,delayed 10 mg (2 x 5 mg) PO ONCE 05/18/22 release (Dulcolax (bisacodyl)) colonoscopy prep 1 day #2 tabs polyethylene glycol 3350 17 238 g PO ONCE 1 day #238 grams 05/18/22 gram/dose oral powder (Miralax) pantoprazole 20 mg tablet,delayed 40 mg (2 x 20 mg) PO DAILY #60 tabs 11/27/22 release needle (disp) 22 G 22 gauge x 1 #30 ea 11/06/23 1 syringe (disposable) 3 mL (BD #25 ea 11/06/23 Luer-Vira Syringe) needle (disp) 18 G 18 gauge x 1 #30 ea 11/29/2309/04 (BD Regular Bevel Mcclelland) amoxicillin 875 mg-potassium 1 tab PO BID 7 days #14 tabs 12/17/23 clavulanate 125 mg tablet phenylephrine HCl 10 mg tablet 10 mg PO Q6H PRN nasal congestion 12/17/23 (Sudafed PE) #10 tabs tamsulosin 0.4 mg capsule 0.8 mg (2 x 0.4 mg) PO DAILY 90 05/22/24 days #180 caps alfuzosin 10 mg tablet,extended 10 mg PO BEDTIME 30 days #30 tabs 06/04/24 release 24 hr testosterone cypionate 200 mg/mL 200 mg IM Q2W 28 days #2 mL 06/04/24 intramuscular oil diazepam 5 mg tablet (Valium) 5 mg PO BID PRN muscle spasm #10 07/24/24 tabs Allergies Allergy/AdvReac Type Severity Reaction Status Date / Time No Known Drug Allergies Allergy Mild Unknown Verified 07/24/24 13:34 SEAFOOD Allergy Severe ANAPHYLAXIS Uncoded 07/09/24 09:32 shellfish Allergy Severe Anaphylaxis Uncoded 07/09/24 09:32 Review of Systems Constitutional: Constitutional: Denies body ache(s), Denies chills, Reports fatigue, Denies fever(s), Denies frequent falls, Denies headache(s), Reports malaise, Reports poor appetite and Reports weakness Eyes: Eyes: Denies blurry vision ENT: Denies dysphagia, Denies vertigo, Denies headache(s) and Denies sore throat Cardiovascular: Cardiovascular: Denies chest pain and Reports dyspnea Respiratory: Respiratory: Denies cough and Reports dyspnea Gastrointestinal: Gastrointestinal: Denies abdominal pain and Denies dysphagia Musculoskeletal: Musculoskeletal: Reports abnormal gait, Reports back pain, Reports arthralgias, Reports joint swelling, Reports limited range of motion and Reports muscle weakness Integumentary/Breasts: Skin/Breast: Denies erythema, Denies rash and Denies wounds Neurologic: Reports abnormal gait, Denies vertigo, Denies frequent falls, Denies headache(s) and Reports weakness Psychiatric: Psychiatric: Denies anxiety Endocrine: Endocrine: Reports fatigue PMFSH Past Medical History Medical History Anemia Hx of substance abuse Smoker History of Helicobacter pylori infection Spinal pain Hypogonadism Erectile dysfunction Hx: UTI (urinary tract infection) BPH (benign prostatic hyperplasia) Hx of hepatitis C GERD (gastroesophageal reflux disease) Anxiety and depression HTN (hypertension) Murmur Surgical History Hx of cystoscopy Family History Family History Mother Diabetes Social History Social History Alcohol intake: former Patient Tobacco Use Status: Current everyday Tobacco user Substance Use Type: Former Substance User Advance Directives: No Advance Directives Information Provided: Yes Do you have a plan to hurt others: No Plan Current occupational status: unemployed Physical Exam ED Vital Signs: Vital Signs - 24 hr 07/24/24 13:31 07/24/24 16:25 07/24/24 16:54 Temperature 98.8 F 98.2 F 98.2 F Pulse Rate 89 64 64 Respiratory Rate 18 16 16 Blood Pressure 119/77 105/63 105/63 Pulse Oximetry 97 97 97 Oxygen Delivery Method Room Air Room Air Room Air BMI result Body Mass Index 22.8 Const General: healthy appearing, comfortable, no acute distress, alert and awake Nutritional Appearance: well nourished Orientation/consciousness: patient oriented x3 HENMT Head: Yes normocephalic and Yes atraumatic Eyes Eyelids: Yes eyelids normal Conjunctivae: conjunctivae normal Sclerae: sclerae normal Corneas: corneas normal Pupils: Equal, round and reactive pupils present EOM: EOMs intact bilaterally Neck Neck: Yes full ROM Resp Effort & Inspection: normal respiratory effort, able to speak in complete sentences, no audible wheezes and not labored Auscultation: clear to auscultation bilaterally Cardio Rate: regular rate Rhythm: regular rhythm GI Inspection: No distended Palpation (GI): Soft to palpation, not firm, nontender, no guarding and not rigid Back/Spine/Pelvis Other: There is no tenderness to palpation of the thoracic or lumbar spine, no paravertebral tenderness. Skin General skin exam: elasticity normal Neuro General: patient oriented x3 Cranial nerves: Yes Equal, round and reactive pupils present and Yes Bilaterally intact EOM present Cognition (Neuro): normal cognition Gait exam (Neuro): not ataxic, not shuffling, no spastic hemiparesis, not staggering and not wide-based Motor exam (neuro): 5/5 motor strength present throughout Extrem Other: Moving all extremities well without any obvious deformities Course Course Course Narrative: RME: 54 yold male being worked up for parkisons presents to the ED for chronic back pain, SOB, diffuclty sleeping, tremotos, and pooor intake. labs, EkG, images ordered Medical Decision Making Medical Decision Making [facility] Narrative: 54-year-old male with past medical history as documented above presents for evaluation of multiple complaints. The patient's complaints seemed to be mostly chronic that he his been seen here for a few weeks ago and is currently following up with his primary doctor for. His back pain is not new, his decreased appetite has been for several weeks to months. He has had trouble sleeping. His acute issue seems to be worsening back pain which is creating a worsening problem with insomnia. The patient denies any chest pain but did have a cardiac workup ordered in triage this includes lab, chest x-ray. the patient's chest x-ray shows no dense consolidations, there is a question of a linear opacity. The patient has no cough, no fever, no white count, this does not likely represent pneumonia. Will defer treatment at this time. Patient's EKG does not show any ischemia. He had a lumbar x-ray that shows minor arthritis which he is aware of. I reviewed his brain CT scan from 2 weeks ago which did not show any acute findings. The patient can be discharged to follow-up with his outpatient providers. I will prescribe the patient a short course of Valium which should help with his back pain as well as helping his insomnia Differential Diagnosis Differential Diagnoses: The differential diagnosis associated with the presentation includes chronic back pain Muscle strain Degenerative disc disease Fibromyalgia Parkinsonism Multiple sclerosis Lab Data [facility] Lab Attestation statement: I reviewed the patient's lab results. no leukocytosis. The patient has a very mild normocytic anemia which she has had in the past, unclear etiology. patient's chemistries show no concerning abnormalities. 07/24/24 14:44 07/24/24 14:44 Labs: Lab Results 07/24/24 07/24/24 Range/Units 14:43 14:44 WBC 5.2 (4.8-10.8) X10*3/uL RBC 4.16 L (4.60-5.80) X10*6/uL Hgb 13.3 L (14.0-18.0) g/dl Hct 38.7 L (42.0-52.0) % MCV 93.0 (80.0-98.0) fL MCH 32.0 (27.0-33.0) pg MCHC 34.4 (31.0-36.0) g/dl RDW 12.9 (11.0-16.0) % Plt Count 179 (160-400) X10*3/uL MPV 10.9 (9.4-12.4) fL Immature Gran % (Auto) 0.2 (0.0-0.4) % Neut % (Auto) 60.8 (45-73) % Lymph % (Auto) 27.6 (20-40) % Story % (Auto) 8.9 (2-11) % Eos % (Auto) 1.7 (0-4) % Baso % (Auto) 0.8 (0-2) % Lymph # (Auto) 1.4 (1.2-4.9) X10*3/uL Story # (Auto) 0.5 (0.1-1.2) X10*3/uL Eos # (Auto) 0.1 (0.0-0.4) X10*3/uL Baso # (Auto) 0.0 (0.0-0.2) X10*3/uL Abs Immat Gran (auto) 0.01 (0.00-0.03) X10*3/uL Absolute Neuts (auto) 3.2 (2.0-8.3) x10*3/uL Absolute Nucleated RBC 0.000 (0.0-0.012) X10*3/uL Nucleated RBC % (auto) 0.0 (0.0-0.2) /100WBC PT 11.2 (10.9-12.4) SEC INR 1.0 (0.9-1.1) APTT 30.9 (26.0-36.8) SEC Sodium 140 (135-145) mmol/L Potassium 4.0 (3.3-5.1) mmol/L Chloride 103 (96-108) mmol/L Carbon Dioxide 31 H (22-29) mmol/L Anion Gap 10 L (12-20) BUN 16 (9-16) mg/dL Creatinine 1.01 (0.5-1.4) mg/dL Estim Creat Clear Calc 78.5 Estimated GFR > 60 Random Glucose 110 (60-115) mg/dL Calcium 9.4 (8.4-10.2) mg/dL Magnesium 2.0 (1.6-2.6) mg/dL Total Bilirubin 1.0 (0.0-1.0) mg/dL AST 34 (5-37) U/L ALT 30 (0-40) U/L Alkaline Phosphatase 49 (39-117) U/L Troponin I High Sens < 2.7 (<3.5-35.0) ng/L B-Natriuretic Peptide < 10 (<100) pg/mL Total Protein 7.3 (6.5-8.0) g/dL Albumin 4.5 (3.5-5.0) g/dL Radiology Impression Discussion of test interpretation with radiology: I have reviewed the radiologist's reading. Radiologist Impression: EXAMINATION: XR LUMBOSACRAL SPINE CLINICAL INFORMATION: back pain COMPARISON: X-ray dated June 30, 2024. TECHNIQUE: Three views of the lumbosacral spine. FINDINGS: No acute cortical disruption or malalignment. Facet joint hypertrophy at L4-5 and L5-S1. No gross lytic or blastic lesions. Vascular complications.. XR/XR lumbar spine 2-3V IMPRESSION: Spondylosis L4-5 and L5-S1. Electronically signed by: Darryl Zadii MD 07/24/2024 03:51 PM [facility] [place] EXAMINATION: XR CHEST CLINICAL INFORMATION: SOB COMPARISON: X-ray dated July 09, 2024 TECHNIQUE: Frontal view of the chest was obtained. FINDINGS: Indistinct margins in the perihilar regions. Pulmonary reticular nodular pattern. No pleural effusion. No pneumothorax. Heart silhouette size is normal. S-shaped curvature of the thoracic spine. XR/XR chest 1V IMPRESSION: Chronic interstitial lung disease with questionable mild interstitial edema versus airspace disease in the right middle lung lobe. Electronically signed by: Darryl Zaidi MD 07/24/2024 03:52 PM [facility] [place] Independent Historian Clinical information obtained from an independent historian. History obtained from or confirmed by: Spouse External Record Review External record reviewed: Outpatient record, Prior outpatient labs and Prior outpatient radiology Prescription Management I considered prescription management with: Antibiotic Discharge Plan Discharge Clinical Impression: Back pain Patient Disposition: Home, Self-Care Instructions: Back Pain (ED) Additional Instructions: your workup in the ER today was reassuring. This includes your x-rays, blood work, EKG. Continue your home medications as prescribed. You may use Valium twice daily as needed for muscle spasms and back pain. This will likely also help you sleep at night follow up with your primary doctor Prescriptions: New diazepam [Valium] 5 mg tablet 5 mg PO BID PRN (Reason: muscle spasm) Qty: 10 0RF No Action docusate sodium [Colace] 100 mg capsule 200 mg PO BEDTIME 30 Days Qty: 60 3RF pantoprazole 20 mg tablet,delayed release (DR/EC) 40 mg PO DAILY Qty: 60 6RF (DME) BD Regular Bevel Mcclelland 18 gauge x 1 1/2 needle See Rx Instructions .MEDSUPPLY Qty: 30 0RF Rx Instructions: As directed tamsulosin 0.4 mg capsule 0.8 mg PO DAILY 90 Days Qty: 180 1RF clonazepam 1 mg Tablet 1 mg PO DAILY methadone 40 mg Tablet,Soluble 36 mg PO DAILY omeprazole 20 mg Capsule,Delayed Release(Dr/Ec) 20 mg PO DAILY hydroxyzine HCl 25 mg Tablet 25 mg PO TID PRN (Reason: Itching) fluticasone propionate [Flonase Allergy Relief] 50 mcg/actuation [place],Suspension 1 spray INTRANASAL DAILY cholecalciferol (vitamin D3) [Vitamin D3] 50 mcg (2,000 unit) Capsule 50 mcg PO DAILY amoxicillin-pot clavulanate 875-125 mg tablet 1 tab PO BID 7 Days Qty: 14 0RF phenylephrine HCl [Sudafed PE] 10 mg tablet 10 mg PO Q6H PRN (Reason: nasal congestion) Qty: 10 0RF trazodone 50 mg tablet 25 mg PO BEDTIME mirtazapine 15 mg tablet 15 mg PO BEDTIME fluoxetine 10 mg capsule 20 mg PO QAM nicotine 14 mg/24 hr patch 24 hour 0 patch topical bisacodyl [Dulcolax (bisacodyl)] 5 mg tablet,delayed release (DR/EC) 10 mg PO ONCE 1 Days Qty: 2 0RF Rx Instructions: Take 2 tablets by mouth at 12:00pm the day before your procedure. polyethylene glycol 3350 [Miralax] 17 gram/dose powder 238 g PO ONCE 1 Days Qty: 238 0RF Rx Instructions: Take as directed by mouth the day before your procedure. cetirizine 10 mg tablet 10 mg PO DAILY PRN (Reason: congestion) lidocaine [Lidoderm] 5 % adhesive patch,medicated 0 patch topical ferrous sulfate [FeroSul] 325 mg (65 mg iron) tablet 325 mg PO DAILY ascorbic acid (vitamin C) [Vitamin C] 500 mg tablet 500 mg PO DAILY sennosides [senna] 8.6 mg tablet 17.2 mg PO DAILY alfuzosin 10 mg tablet extended release 24 hr 10 mg PO BEDTIME 30 Days Qty: 30 1RF Rx Instructions: Take before bedtime testosterone cypionate 200 mg/mL oil 200 mg IM Q2W 28 Days Qty: 2 5RF albuterol sulfate [Ventolin HFA] 90 mcg/actuation HFA aerosol inhaler 2 puff inhalation Q4H PRN (Reason: wheezing) ibuprofen 600 mg tablet 600 mg PO Q8H PRN (Reason: headache) melatonin 5 mg tablet 5 - 10 mg PO BEDTIME PRN rosuvastatin 10 mg tablet 10 mg PO QAM clonazepam 0.5 mg tablet 1 mg PO BID PRN nicotine (polacrilex) 2 mg lozenge 2 mg PO simethicone [Gas Relief Extra Strength] 125 mg capsule 125 mg PO BEDTIME multivitamin Tablet 1 tab PO QAM (DME) syringe (disposable) [BD Luer-Vira Syringe] 3 mL syringe See Rx Instructions .Route Qty: 25 0RF Rx Instructions: As directed 1 syringe [id number] 2 syringes total per month for T injection (DME) BD Regular Bevel Mcclelland 22 gauge x 1 1/2 needle See Rx Instructions .MEDSUPPLY Qty: 30 0RF Rx Instructions: As directed Interventions: ED Discharge Assessment Last Done: 07/24/24 16:54 Discharge Date/Time: 07/24/24 16:54 Print Language: Hungarian
[2024-07-24 14:50] LABS: MANUAL DIFF FLAG NO
[2024-07-24 14:54] LABS: Basophils Percent Auto 0.8 % (0-2); Eosinophils Absolute Auto 0.1 X10*3/uL (0.0-0.4); Eosinophils Percent Auto 1.7 % (0-4); Hematocrit 38.7 % (42.0-52.0); Hemoglobin 13.3 g/dl (14.0-18.0); Imm Gran Abs Auto 0.01 X10*3/uL (0.00-0.03); Imm Gran Pct Auto 0.2 % (0.0-0.4); Lymphocytes Absolute Auto 1.4 X10*3/uL (1.2-4.9); Lymphocytes Percent Auto 27.6 % (20-40); Mean Corpuscular HGB Conc 34.4 g/dl (31.0-36.0); Mean Platelet Volume 10.9 fL (9.4-12.4); Monocytes Absolute Auto 0.5 X10*3/uL (0.1-1.2); Monocytes Percent Auto 8.9 % (2-11); Neutrophils Absolute Auto 3.2 x10*3/uL (2.0-8.3); Neutrophils Percent Auto 60.8 % (45-73); Platelet Count 179 X10*3/uL (160-400); Red Blood Count 4.16 X10*6/uL (4.60-5.80); Red Cell Distribution Width 12.9 % (11.0-16.0); White Blood Count 5.2 X10*3/uL (4.8-10.8)
[2024-07-24 15:01] LABS: Prothrombin Time 11.2 SEC (10.9-12.4)
[2024-07-24 15:03] LABS: Partial Thromboplastin Time 30.9 SEC (26.0-36.8)
[2024-07-24 15:10] LABS: B Type Natriuretic Peptide < 10 pg/mL (<100)
[2024-07-24 15:14] LABS: Troponin-I High Sensitivity < 2.7 ng/L (<3.5-35.0)
[2024-07-24 15:15] LABS: Alanine Aminotransferase 30 U/L (0-40); Albumin Level 4.5 g/dL (3.5-5.0); Anion Gap 10 (12-20); Aspartate Amino Transferase 34 U/L (5-37); Blood Urea Nitrogen 16 mg/dL (9-16); Calcium 9.4 mg/dL (8.4-10.2); Carbon Dioxide 31 mmol/L (22-29); Chloride 103 mmol/L (96-108); Creatinine Clr Calc Pharmacy 78.5; Estimated Glomerular Filt Rate > 60; Glucose Random 110 mg/dL (60-115); Sodium 140 mmol/L (135-145); Total Protein 7.3 g/dL (6.5-8.0)
[2024-07-24 15:23] LABS: Alkaline Phosphatase 49 U/L (39-117)
[2024-07-24 16:25] VITALS: BP 105/63; PULSE 64; RESP 16; TEMP 36.8; O2SAT 97
[2024-07-24 16:54] VITALS: BP 105/63; PULSE 64; RESP 16; TEMP 36.8; O2SAT 97
== END 2024-07-24 16:54 | disposition home or self-care (01) ==
PROVIDERS: Physician Assistant; Emergency Provider Emergency Medicine; PCP Registered Nurse
DX: M54.50 Low back pain, unspecified (principal); R53.83 Other fatigue; R60.0 Localized edema; R06.02 Shortness of breath; Z79.899 Other long term (current) drug therapy; Z87.891 Personal history of nicotine dependence
CPT/HCPCS: 36415; 71045; 72100; 80053; 83735; 83880; 84484; 85025; 85610; 85730; 93005; 99283; 99284

== ENCOUNTER → 2024-07-24 13:42 | Outpatient (BNV) | payer MEDICAID, SELFPAY | PROVIDERS: PCP Registered Nurse; Visit Provider Radiology Diagnostic Radiology | DX: M54.59 Other low back pain (principal); R06.02 Shortness of breath | CPT/HCPCS: 71045; 72100 ==

== ENCOUNTER → 2024-07-24 13:43 | Outpatient (BNV) | payer MEDICAID, SELFPAY | PROVIDERS: Emergency Provider Emergency Medicine; PCP Registered Nurse; Visit Provider Internal Medicine Cardiovascular Disease | DX: R06.02 Shortness of breath (principal) | CPT/HCPCS: 93010 ==

== ENCOUNTER 2024-07-25 20:34 | Emergency (ER) | payer MEDICAID, SELFPAY ==
[2024-07-25 20:42] VITALS: BP 114/76; PULSE 72; O2SAT 97
[2024-07-25 20:46] VITALS: BP 119/75; PULSE 71; RESP 13; TEMP 36.8; O2SAT 96
[2024-07-25 20:52] VITALS: BP 119/75; PULSE 68; RESP 12; TEMP 36.8; O2SAT 95
--- NOTE | 2024-07-25 21:09 | ED.GENADULT ---
HPI - General Adult General Chief complaint: Back Pain/Injury Stated complaint: NOT FEELING WELL SOB Time Seen by Provider: 07/25/24 21:07 Source: patient, family, EMS and old records reviewed Mode of arrival: EMS Limitations: no limitations History of Present Illness ED Provider: MUSTAPHA ANN narrative: 54 yo male with PMH Of BPH, UTI, GERD, mental health issues, chronic substance abuse on methadone but recent relapse in March here with c/o tonight was restless and felt short of breath he has increasing anxiety and claustrophobia. His notes about a month of increased sleepiness then restlessness then c/o leg pain. She feels he has something wrong with him like parkinsons and he has been seeing his PCP and psychologist. He tells me he has chronic back pain and this is why he cannot sleep. He is currently on 5mg valium and very sleepy. He denies trauma, drug use. He is sleepy but oriented x 3. He will not lay down as he feels he is going to . He likes to sleep in a chair per . She is aware I cannot dx parkinsons. He has already had head CT and other workup. I offered repeat labs there is no real acute change tonight is just frustrated. lumbar xray this month just shows spondylosis L4-L5, L5-S1 complaint: at home felt short of breath and BP was high now he feels fine Onset (ago): hour(s) (few) Radiation: non-radiation Severity: mild Quality: other (resolved) Pain Consistency: constant Relieving factors: none Exacerbating factors: immobilization Associated symptoms: other (about a month of poor ADLs) Treatments prior to arrival: other Related Data Home Medications ?Medication ?Instructions ?Recorded ?Confirmed cholecalciferol (vitamin D3) 50 50 mcg PO DAILY 06/30/20 06/04/24 mcg (2,000 unit) capsule (Vitamin D3) clonazepam 1 mg tablet 1 mg PO DAILY 06/30/20 06/04/24 fluticasone propionate 50 1 spray intranasal DAILY 06/30/20 06/04/24 mcg/actuation nasal spray,suspension (Flonase Allergy Relief) hydroxyzine HCl 25 mg tablet 25 mg PO TID PRN Itching 06/30/20 06/04/24 methadone 40 mg soluble tablet 36 mg PO DAILY 06/30/20 06/04/24 omeprazole 20 mg capsule,delayed 20 mg PO DAILY 06/30/20 06/04/24 release fluoxetine 10 mg capsule 20 mg PO QAM 10/20/21 06/04/24 mirtazapine 15 mg tablet 15 mg PO BEDTIME 10/20/21 06/04/24 trazodone 50 mg tablet 25 mg PO BEDTIME 10/20/21 06/04/24 ascorbic acid (vitamin C) 500 mg 500 mg PO DAILY 12/16/21 06/04/24 tablet (Vitamin C) ferrous sulfate 325 mg (65 mg 325 mg PO DAILY 12/16/21 06/04/24 iron) tablet (FeroSul) lidocaine 5 % topical patch 0 patch topical 12/16/21 06/04/24 (Lidoderm) sennosides 8.6 mg tablet (senna) 17.2 mg PO DAILY 12/16/21 06/04/24 cetirizine 10 mg tablet 10 mg PO DAILY PRN congestion 05/18/22 06/04/24 nicotine 14 mg/24 hr daily 0 patch topical 06/22/22 06/04/24 transdermal patch albuterol sulfate 90 mcg/actuation 2 puff inhalation Q4H PRN wheezing 01/12/23 06/04/24 aerosol inhaler (Ventolin HFA) clonazepam 0.5 mg tablet 1 mg PO BID PRN 01/12/23 06/04/24 ibuprofen 600 mg tablet 600 mg PO Q8H PRN headache 01/12/23 06/04/24 melatonin 5 mg tablet 5 - 10 mg PO BEDTIME PRN 01/12/23 06/04/24 multivitamin 1 tab PO QAM 01/12/23 06/04/24 nicotine (polacrilex) 2 mg buccal 2 mg PO 01/12/23 06/04/24 lozenge rosuvastatin 10 mg tablet 10 mg PO QAM 01/12/23 06/04/24 simethicone 125 mg capsule (Gas 125 mg PO BEDTIME 01/12/23 06/04/24 Relief Extra Strength) Previous Rx's ?Medication ?Instructions ?Recorded docusate sodium 100 mg capsule 200 mg (2 x 100 mg) PO BEDTIME 30 06/03/20 (Colace) days #60 caps bisacodyl 5 mg tablet,delayed 10 mg (2 x 5 mg) PO ONCE 05/18/22 release (Dulcolax (bisacodyl)) colonoscopy prep 1 day #2 tabs polyethylene glycol 3350 17 238 g PO ONCE 1 day #238 grams 05/18/22 gram/dose oral powder (Miralax) pantoprazole 20 mg tablet,delayed 40 mg (2 x 20 mg) PO DAILY #60 tabs 11/27/22 release needle (disp) 22 G 22 gauge x 1 #30 ea 11/06/23 12 syringe (disposable) 3 mL (BD #25 ea 11/06/23 Luer-Vira Syringe) needle (disp) 18 G 18 gauge x 1 #30 ea 11/29/23 1 (BD Regular Bevel Tomales) amoxicillin 875 mg-potassium 1 tab PO BID 7 days #14 tabs 12/17/23 clavulanate 125 mg tablet phenylephrine HCl 10 mg tablet 10 mg PO Q6H PRN nasal congestion 12/17/23 (Sudafed PE) #10 tabs tamsulosin 0.4 mg capsule 0.8 mg (2 x 0.4 mg) PO DAILY 90 05/22/24 days #180 caps alfuzosin 10 mg tablet,extended 10 mg PO BEDTIME 30 days #30 tabs 06/04/24 release 24 hr testosterone cypionate 200 mg/mL 200 mg IM Q2W 28 days #2 mL 06/04/24 intramuscular oil diazepam 5 mg tablet (Valium) 5 mg PO BID PRN muscle spasm #10 07/24/24 tabs Allergies Allergy/AdvReac Type Severity Reaction Status Date / Time No Known Drug Allergies Allergy Mild Unknown Verified 07/25/24 21:18 SEAFOOD Allergy Severe ANAPHYLAXIS Uncoded 07/25/24 21:18 shellfish Allergy Severe Anaphylaxis Uncoded 07/25/24 21:18 Review of Systems Review of Systems: Constitutional : No Weight loss, No Fever, No Chills, pos fatigue ENT/Mouth : No Hearing loss, No Ear Pain, No Nasal Congestion, No Sinus Pain, No Hoarseness, No sore throat, No Rhinorrhea, No Swallowing Difficulty Cardiovascular : No Chest Pain, No SOB Respiratory : No Cough, No Dyspnea Gastrointestinal : No Nausea, No Vomiting, No Diarrhea, No abdominal Pain, No Hematochezia, No Melena Genitourinary : No Dysuria, No Urinary Frequency, No Hematuria, No Urinary Incontinence, Musculoskeletal : positive back pain Skin : No Skin Lesions, No rash Neuro : No Weakness, No Numbness, No Paresthesias, no loss of bowel or bladder incontinence, no saddle anesthesia Psych: pos anxiety, no SI PMFSH Past Medical History Attestation statement: The following information was validated with the patient. Source: old records reviewed Medical History Anemia Hx of substance abuse Smoker History of Helicobacter pylori infection Spinal pain Hypogonadism Erectile dysfunction Hx: UTI (urinary tract infection) BPH (benign prostatic hyperplasia) Hx of hepatitis C GERD (gastroesophageal reflux disease) Anxiety and depression HTN (hypertension) Murmur Surgical History Hx of cystoscopy Family History Family History Mother Diabetes Social History Social History Alcohol intake: former Patient Tobacco Use Status: Current everyday Tobacco user Smoked in Last 30 Days: No Substance Use Type: Other Substance Use Type Other:: Methadone Advance Directives: No Advance Directives Information Provided: No Do you have a plan to hurt others: No Plan Current occupational status: unemployed Physical Exam ED Vital Signs: Vital Signs - 24 hr 07/25/24 20:46 07/25/24 20:52 07/25/24 22:24 Temperature 98.2 F 98.2 F 97.3 F Pulse Rate 71 68 70 Respiratory Rate 13 12 11 L Blood Pressure 119/75 119/75 114/67 Pulse Oximetry 96 95 97 Oxygen Delivery Method Room Air Room Air Room Air BMI result Body Mass Index 23.5 Appearance: Somnolent, easily woken, appears under the influence. Oriented X3. No acute distress. Eyes: Pupils equal, round and reactive to light. ENT: Pharynx normal. Neck: Normal inspection. Neck supple. CVS: Normal heart rate and rhythm. Pulses normal. Respiratory: No respiratory distress. Breath sounds normal. Abdomen: Soft and non-tender. Skin: Skin warm and dry. Normal skin color. Normal skin turgor. Extremities: No lower extremity edema. No calf ttp Neuro: Oriented X 3. No motor deficit. No sensory deficit. slightly rigid, slow shuffling gait Medical Decision Making Medical Decision Making MDM Narrative: 54 yo male with PMH Of BPH, UTI, GERD, here with c/o again feeling restless then had what sounds like anxiety episode unable to breathe - at this time will need basic labs. I do not see a need to do CT head again, lumbar films. I explained to his this is unfortunately an outpatient work up and she is aware I understand she feels helpless. He has no clonus or hyperreflexia. He is oriented x 3. 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 07/25/24 21:52 07/25/24 21:52 Labs: Lab Results 07/25/24 07/25/24 07/25/24 Range/Units 21:00 21:52 21:56 WBC 6.9 (4.8-10.8) X10*3/uL RBC 4.31 L (4.60-5.80) X10*6/uL Hgb 13.9 L (14.0-18.0) g/dl Hct 39.9 L (42.0-52.0) % MCV 92.6 (80.0-98.0) fL MCH 32.3 (27.0-33.0) pg MCHC 34.8 (31.0-36.0) g/dl RDW 12.8 (11.0-16.0) % Plt Count 202 (160-400) X10*3/uL MPV 10.6 (9.4-12.4) fL Immature Gran % (Auto) 0.1 (0.0-0.4) % Neut % (Auto) 59.6 (45-73) % Lymph % (Auto) 28.9 (20-40) % [place] % (Auto) 8.8 (2-11) % Eos % (Auto) 1.9 (0-4) % Baso % (Auto) 0.7 (0-2) % Lymph # (Auto) 2.0 (1.2-4.9) X10*3/uL [place] # (Auto) 0.6 (0.1-1.2) X10*3/uL Eos # (Auto) 0.1 (0.0-0.4) X10*3/uL Baso # (Auto) 0.1 (0.0-0.2) X10*3/uL Abs Immat Gran (auto) 0.01 (0.00-0.03) X10*3/uL Absolute Neuts (auto) 4.1 (2.0-8.3) x10*3/uL Absolute Nucleated RBC 0.000 (0.0-0.012) X10*3/uL Nucleated RBC % (auto) 0.0 (0.0-0.2) /100WBC VBG pH 7.37 (7.32-7.43) VBG pCO2 53 mmHg VBG pO2 45 mmHg VBG HCO3 31 H (22-26) mmol/L VBG O2 Saturation 74.0 % VBG Base Excess 5.1 mmol/L Sodium 141 (135-145) mmol/L Potassium 3.7 (3.3-5.1) mmol/L Chloride 103 (96-108) mmol/L Carbon Dioxide 30 H (22-29) mmol/L Anion Gap 12 (12-20) BUN 16 (9-16) mg/dL Creatinine 0.89 (0.5-1.4) mg/dL Estim Creat Clear Calc 86.6 Estimated GFR > 60 Random Glucose 92 (60-115) mg/dL Calcium 9.3 (8.4-10.2) mg/dL Magnesium 2.0 (1.6-2.6) mg/dL Total Bilirubin 1.2 H (0.0-1.0) mg/dL Direct Bilirubin 0.3 (0.0-0.5) mg/dL AST 37 (5-37) U/L ALT 30 (0-40) U/L Alkaline Phosphatase 49 (39-117) U/L Ammonia 31 (13-55) umol/L Total Protein 7.5 (6.5-8.0) g/dL Albumin 4.7 (3.5-5.0) g/dL Lipase 17 (8-78) U/L Influenza Type A (PCR) NEGATIVE (Negative) Influenza Type B (PCR) NEGATIVE (Negative) RSV RNA Qual (PCR) NEGATIVE (Negative) SARS-CoV-2 RNA (RT-PCR) NEGATIVE (Negative) Independent Interpretation I performed an independent interpretation of an: Plain X-Ray Radiology Impression Discussion of test interpretation with radiology: I have reviewed the radiologist's reading. Independent Historian Clinical information obtained from an independent historian. History obtained from or confirmed by: Spouse External Record Review External record reviewed: Office record Discharge Plan Discharge Clinical Impression: Anxiety Patient Disposition: Home, Self-Care Instructions: Anxiety (ED) Additional Instructions: labs reassuring you refused a urine sample at this time there is concern for substance or medication use causing your symptoms tonight please continue to follow up with your providers Prescriptions: No Action docusate sodium [Colace] 100 mg capsule 200 mg PO BEDTIME 30 Days Qty: 60 3RF pantoprazole 20 mg tablet,delayed release (DR/EC) 40 mg PO DAILY Qty: 60 6RF (DME) BD Regular Bevel Tomales 18 gauge x 1 1/2 needle See Rx Instructions .MEDSUPPLY Qty: 30 0RF Rx Instructions: As directed tamsulosin 0.4 mg capsule 0.8 mg PO DAILY 90 Days Qty: 180 1RF clonazepam 1 mg Tablet 1 mg PO DAILY methadone 40 mg Tablet,Soluble 36 mg PO DAILY omeprazole 20 mg Capsule,Delayed Release(Dr/Ec) 20 mg PO DAILY hydroxyzine HCl 25 mg Tablet 25 mg PO TID PRN (Reason: Itching) fluticasone propionate [Flonase Allergy Relief] 50 mcg/actuation [place],Suspension 1 spray INTRANASAL DAILY cholecalciferol (vitamin D3) [Vitamin D3] 50 mcg (2,000 unit) Capsule 50 mcg PO DAILY amoxicillin-pot clavulanate 875-125 mg tablet 1 tab PO BID 7 Days Qty: 14 0RF phenylephrine HCl [Sudafed PE] 10 mg tablet 10 mg PO Q6H PRN (Reason: nasal congestion) Qty: 10 0RF diazepam [Valium] 5 mg tablet 5 mg PO BID PRN (Reason: muscle spasm) Qty: 10 0RF trazodone 50 mg tablet 25 mg PO BEDTIME mirtazapine 15 mg tablet 15 mg PO BEDTIME fluoxetine 10 mg capsule 20 mg PO QAM nicotine 14 mg/24 hr patch 24 hour 0 patch topical bisacodyl [Dulcolax (bisacodyl)] 5 mg tablet,delayed release (DR/EC) 10 mg PO ONCE 1 Days Qty: 2 0RF Rx Instructions: Take 2 tablets by mouth at 12:00pm the day before your procedure. polyethylene glycol 3350 [Miralax] 17 gram/dose powder 238 g PO ONCE 1 Days Qty: 238 0RF Rx Instructions: Take as directed by mouth the day before your procedure. cetirizine 10 mg tablet 10 mg PO DAILY PRN (Reason: congestion) lidocaine [Lidoderm] 5 % adhesive patch,medicated 0 patch topical ferrous sulfate [FeroSul] 325 mg (65 mg iron) tablet 325 mg PO DAILY ascorbic acid (vitamin C) [Vitamin C] 500 mg tablet 500 mg PO DAILY sennosides [senna] 8.6 mg tablet 17.2 mg PO DAILY alfuzosin 10 mg tablet extended release 24 hr 10 mg PO BEDTIME 30 Days Qty: 30 1RF Rx Instructions: Take before bedtime testosterone cypionate 200 mg/mL oil 200 mg IM Q2W 28 Days Qty: 2 5RF albuterol sulfate [Ventolin HFA] 90 mcg/actuation HFA aerosol inhaler 2 puff inhalation Q4H PRN (Reason: wheezing) ibuprofen 600 mg tablet 600 mg PO Q8H PRN (Reason: headache) melatonin 5 mg tablet 5 - 10 mg PO BEDTIME PRN rosuvastatin 10 mg tablet 10 mg PO QAM clonazepam 0.5 mg tablet 1 mg PO BID PRN nicotine (polacrilex) 2 mg lozenge 2 mg PO simethicone [Gas Relief Extra Strength] 125 mg capsule 125 mg PO BEDTIME multivitamin Tablet 1 tab PO QAM (DME) syringe (disposable) [BD Luer-Vira Syringe] 3 mL syringe See Rx Instructions .Route Qty: 25 0RF Rx Instructions: As directed 1 syringe [id number] 2 syringes total per month for T injection (DME) BD Regular Bevel Tomales 22 gauge x 1 1/2 needle See Rx Instructions .MEDSUPPLY Qty: 30 0RF Rx Instructions: As directed Print Language: Bruneian
[2024-07-25 21:16] VITALS: BMI 23.5
--- NOTE | 2024-07-25 21:41 | PC.NURSE ---
Provider into assess pt, pt placed in recliner per request.
[2024-07-25 21:42] LABS: Influenza A PCR NEGATIVE (Negative); Influenza B PCR NEGATIVE (Negative); Resp Syncy Virus RNA Qual PCR NEGATIVE (Negative); SARS COV2 PCR INHOUSE NEGATIVE (Negative)
[2024-07-25 21:56] LABS: MANUAL DIFF FLAG NO
[2024-07-25 21:58] LABS: Basophils Absolute Auto 0.1 X10*3/uL (0.0-0.2); Basophils Percent Auto 0.7 % (0-2); Eosinophils Absolute Auto 0.1 X10*3/uL (0.0-0.4); Eosinophils Percent Auto 1.9 % (0-4); Hematocrit 39.9 % (42.0-52.0); Hemoglobin 13.9 g/dl (14.0-18.0); Imm Gran Abs Auto 0.01 X10*3/uL (0.00-0.03); Imm Gran Pct Auto 0.1 % (0.0-0.4); Lymphocytes Percent Auto 28.9 % (20-40); Mean Corpuscular HGB Conc 34.8 g/dl (31.0-36.0); Mean Corpuscular Hemoglobin 32.3 pg (27.0-33.0); Mean Corpuscular Volume 92.6 fL (80.0-98.0); Mean Platelet Volume 10.6 fL (9.4-12.4); Monocytes Absolute Auto 0.6 X10*3/uL (0.1-1.2); Monocytes Percent Auto 8.8 % (2-11); Neutrophils Absolute Auto 4.1 x10*3/uL (2.0-8.3); Neutrophils Percent Auto 59.6 % (45-73); Platelet Count 202 X10*3/uL (160-400); Red Blood Count 4.31 X10*6/uL (4.60-5.80); Red Cell Distribution Width 12.8 % (11.0-16.0); White Blood Count 6.9 X10*3/uL (4.8-10.8)
[2024-07-25 22:04] LABS: VBG Base Excess 5.1 mmol/L; VBG HCO3 31 mmol/L (22-26); VBG pCO2 53 mmHg; VBG pH 7.37 (7.32-7.43); VBG pO2 45 mmHg
[2024-07-25 22:06] LABS: Venous Blood Gas Refer to POC result
[2024-07-25 22:21] LABS: Albumin Level 4.7 g/dL (3.5-5.0); Alkaline Phosphatase 49 U/L (39-117); Anion Gap 12 (12-20); Aspartate Amino Transferase 37 U/L (5-37); Bilirubin Direct 0.3 mg/dL (0.0-0.5); Bilirubin Total 1.2 mg/dL (0.0-1.0); Blood Urea Nitrogen 16 mg/dL (9-16); Calcium 9.3 mg/dL (8.4-10.2); Carbon Dioxide 30 mmol/L (22-29); Chloride 103 mmol/L (96-108); Creatinine Clr Calc Pharmacy 86.6; Estimated Glomerular Filt Rate > 60; Glucose Random 92 mg/dL (60-115); Lipase 17 U/L (8-78); Potassium 3.7 mmol/L (3.3-5.1); Sodium 141 mmol/L (135-145); Total Protein 7.5 g/dL (6.5-8.0)
[2024-07-25 22:24] VITALS: BP 114/67; PULSE 70; RESP 11; TEMP 36.3; O2SAT 97
[2024-07-25 22:29] LABS: Ammonia 31 umol/L (13-55)
[2024-07-25 22:40] LABS: Alanine Aminotransferase 30 U/L (0-40)
--- NOTE | 2024-07-25 23:15 | PC.NURSE ---
pt sleeping in recliner
--- NOTE | 2024-07-25 23:27 | PC.NURSE ---
Pt out of bed to bathroom but reports he can not urinate.
--- NOTE | 2024-07-25 23:38 | PC.NURSE ---
Reviewed discharge instruction with pt , pt verbalized understanding, pt walking out with , provider aware pt unable to give UA upon discharge.
[2024-07-25 23:40] VITALS: BP 114/67; PULSE 70; RESP 11; TEMP 36.4; O2SAT 97
== END 2024-07-25 23:41 | disposition home or self-care (01) ==
PROVIDERS: Emergency Provider Emergency Medicine
DX: F41.9 Anxiety disorder, unspecified (principal); Z03.818 Encounter for observation for suspected exposure to other biological agents ruled out; I10 Essential (primary) hypertension; F11.20 Opioid dependence, uncomplicated
CPT/HCPCS: 0241U; 36415; 80048; 80076; 82140; 82803; 83690; 83735; 85025; 99284

== ENCOUNTER 2024-08-02 17:54 | Emergency (ER) | payer MEDICAID, SELFPAY ==
--- NOTE | ~2024-08-02 | US_ITS ---
EXAMINATION: US TRIPLEX LOWER EXTREMITY, BILATERAL CLINICAL INFORMATION: Bilateral lower extremity swelling and pain. COMPARISON: None available. TECHNIQUE: Color-flow triplex imaging with spectral analysis and compression Doppler were performed on the bilateral lower extremities. FINDINGS: Respiratory variation, normal compression and augmented flow are noted throughout the bilateral lower extremities. The visualized common femoral vein, femoral vein, profunda femoral vein, popliteal vein and midcalf peroneal and posterior tibial venous segments show no evidence of deep venous thrombosis bilaterally. 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 There is no Wolfe's cyst. Bilateral inguinal region elongated however otherwise sonographically normal-appearing lymph nodes are noted, on the right measuring 2.0 x 0.7 x 2.4 cm and on the left measuring 2.4 x 0.6 x 1.9 cm. US/US venous duplex LE BI IMPRESSION: No evidence of deep venous thrombosis involving the bilateral lower extremities. Electronically signed by: Marcial Ramirez MD 08/02/2024 09:34 PM BRYAN CHAVEZ
--- NOTE | ~2024-08-02 | XR_ITS ---
EXAMINATION: XR ABDOMEN KUB CLINICAL INDICATION: Constipation COMPARISON: Selected images of the abdomen and pelvic CT scan of 11/22/2021, KUB of 09/26/2019 TECHNIQUE: AP view of the abdomen. FINDINGS: The bowel gas pattern is normal without evidence of ileus or obstruction. Moderate stool burden is noted in the left-sided colon and rectosigmoid colon with small stool burden in the right-sided colon and transverse colon. No abnormal soft tissue calcifications are noted. Small phlebolith is noted in the left pelvis. There is suggestion of bronchial thickening at the left lung base. Mild degenerative changes in the spine. XR/XR KUB IMPRESSION: Nonobstructive bowel gas pattern. Moderate stool burden in the left-sided colon and rectosigmoid colon. Likely bronchial thickening of the left lung base. Recommend clinical correlation. Electronically signed by: Marcial Ramirez MD 08/02/2024 09:31 PM BRYAN CHAVEZ
[2024-08-02 18:02] VITALS: BP 118/59; PULSE 93; RESP 20; TEMP 36.9; O2SAT 98; BMI 22.8
[2024-08-02 19:02] LABS: MANUAL DIFF FLAG NO
[2024-08-02 19:03] LABS: Basophils Percent Auto 0.2 % (0-2); Eosinophils Absolute Auto 0.1 X10*3/uL (0.0-0.4); Eosinophils Percent Auto 0.6 % (0-4); Hematocrit 37.5 % (42.0-52.0); Hemoglobin 12.9 g/dl (14.0-18.0); Imm Gran Abs Auto 0.05 X10*3/uL (0.00-0.03); Imm Gran Pct Auto 0.3 % (0.0-0.4); Lymphocytes Percent Auto 6.2 % (20-40); Mean Corpuscular HGB Conc 34.4 g/dl (31.0-36.0); Mean Corpuscular Hemoglobin 32.5 pg (27.0-33.0); Mean Corpuscular Volume 94.5 fL (80.0-98.0); Mean Platelet Volume 10.7 fL (9.4-12.4); Monocytes Absolute Auto 0.8 X10*3/uL (0.1-1.2); Neutrophils Percent Auto 87.7 % (45-73); Platelet Count 190 X10*3/uL (160-400); Red Blood Count 3.97 X10*6/uL (4.60-5.80); Red Cell Distribution Width 13.7 % (11.0-16.0); White Blood Count 15.9 X10*3/uL (4.8-10.8)
[2024-08-02 19:04] LABS: Appearance Urine Turbid; Color Urine Dark Yellow; Glucose Urine UA Negative (Negative); Leukocyte Esterase Urine Moderate (2+) (Negative); Nitrite Urine Positive (Negative); Specific Gravity - Urine >= 1.030 (1.005-1.025); UMIC TRIGGER UACC YES; Urine Blood Large (3+) (Negative); Urine Ketones 15 mg/dL (Negative); Urine Protein 100 (2+) mg/dL (Neg-Trace)
[2024-08-02 19:10] VITALS: BP 122/68; PULSE 86; RESP 13; TEMP 37.1; O2SAT 98
[2024-08-02 19:13] LABS: Bacteria Urine 2+ (None Seen); Other Crystals Urine Present; RBC Urine >20 /HPF (0-2); Squamous Epithelial Cell Urine 0-2 /HPF (0-2); UACC Culture Trigger YES; WBC Urine >50 /HPF (0-5)
[2024-08-02 19:16] LABS: Alanine Aminotransferase 35 U/L (0-40); Albumin Level 4.3 g/dL (3.5-5.0); Alkaline Phosphatase 47 U/L (39-117); Anion Gap 14 (12-20); Aspartate Amino Transferase 40 U/L (5-37); Blood Urea Nitrogen 19 mg/dL (9-16); Calcium 9.4 mg/dL (8.4-10.2); Carbon Dioxide 29 mmol/L (22-29); Chloride 102 mmol/L (96-108); Creatinine Clr Calc Pharmacy 79.3; Estimated Glomerular Filt Rate > 60; Glucose Random 116 mg/dL (60-115); Sodium 141 mmol/L (135-145); Total Protein 7.1 g/dL (6.5-8.0)
[2024-08-02 19:22] LABS: B Type Natriuretic Peptide < 10 pg/mL (<100)
--- NOTE | 2024-08-02 19:44 | ED_ITS ---
HPI - Male Genitourinary General Chief complaint: Urogenital-Male Stated complaint: gregorio leakage? dehydrated Time Seen by Provider: 08/02/24 19:08 Source: patient, RN notes reviewed and old records reviewed Mode of arrival: ambulatory Limitations: no limitations History of Present Illness ED Provider: Kehinde ANN Narrative: 54-year-old male with past medical history significant for BPH, UTI, GERD, substance abuse on methadone, mental health issues presents for evaluation of multiple complaints. Patient's primary complaint is that he is leaking from his Gregorio catheter bag that was inserted last week at [facility]. The patient is due to follow up with Urology on Sunday, 3 days from today He also reports leg swelling left greater than right. He has back pain which is chronic for him He has not had any falls He denies any fevers, chills. Apparently the patient's catheter cap was not on tight enough. This was adjusted in triage and the patient reports he has not had any leaking since being triaged. He has no other complaints or concerns at this time Related Data Home Medications ?Medication ?Instructions ?Recorded ?Confirmed cholecalciferol (vitamin D3) 50 50 mcg PO DAILY 06/30/20 06/04/24 mcg (2,000 unit) capsule (Vitamin D3) clonazepam 1 mg tablet 1 mg PO DAILY 06/30/20 06/04/24 fluticasone propionate 50 1 spray intranasal DAILY 06/30/20 06/04/24 mcg/actuation nasal spray,suspension (Flonase Allergy Relief) hydroxyzine HCl 25 mg tablet 25 mg PO TID PRN Itching 06/30/20 06/04/24 methadone 40 mg soluble tablet 36 mg PO DAILY 06/30/20 06/04/24 omeprazole 20 mg capsule,delayed 20 mg PO DAILY 06/30/20 06/04/24 release fluoxetine 10 mg capsule 20 mg PO QAM 10/20/21 06/04/24 mirtazapine 15 mg tablet 15 mg PO BEDTIME 10/20/21 06/04/24 trazodone 50 mg tablet 25 mg PO BEDTIME 10/20/21 06/04/24 ascorbic acid (vitamin C) 500 mg 500 mg PO DAILY 12/16/21 06/04/24 tablet (Vitamin C) ferrous sulfate 325 mg (65 mg 325 mg PO DAILY 12/16/21 06/04/24 iron) tablet (FeroSul) lidocaine 5 % topical patch 0 patch topical 12/16/21 06/04/24 (Lidoderm) sennosides 8.6 mg tablet (senna) 17.2 mg PO DAILY 12/16/21 06/04/24 cetirizine 10 mg tablet 10 mg PO DAILY PRN congestion 05/18/22 06/04/24 nicotine 14 mg/24 hr daily 0 patch topical 06/22/22 06/04/24 transdermal patch albuterol sulfate 90 mcg/actuation 2 puff inhalation Q4H PRN wheezing 01/12/23 06/04/24 aerosol inhaler (Ventolin HFA) clonazepam 0.5 mg tablet 1 mg PO BID PRN 01/12/23 06/04/24 ibuprofen 600 mg tablet 600 mg PO Q8H PRN headache 01/12/23 06/04/24 melatonin 5 mg tablet 5 - 10 mg PO BEDTIME PRN 01/12/23 06/04/24 multivitamin 1 tab PO QAM 01/12/23 06/04/24 nicotine (polacrilex) 2 mg buccal 2 mg PO 01/12/23 06/04/24 lozenge rosuvastatin 10 mg tablet 10 mg PO QAM 01/12/23 06/04/24 simethicone 125 mg capsule (Gas 125 mg PO BEDTIME 01/12/23 06/04/24 Relief Extra Strength) Previous Rx's ?Medication ?Instructions ?Recorded docusate sodium 100 mg capsule 200 mg (2 x 100 mg) PO BEDTIME 30 06/03/20 (Colace) days #60 caps bisacodyl 5 mg tablet,delayed 10 mg (2 x 5 mg) PO ONCE 05/18/22 release (Dulcolax (bisacodyl)) colonoscopy prep 1 day #2 tabs polyethylene glycol 3350 17 238 g PO ONCE 1 day #238 grams 05/18/22 gram/dose oral powder (Miralax) pantoprazole 20 mg tablet,delayed 40 mg (2 x 20 mg) PO DAILY #60 tabs 11/27/22 release needle (disp) 22 G 22 gauge x 1 #30 ea 11/06/23 1/2 syringe (disposable) 3 mL (BD #25 ea 11/06/23 Luer-Vira Syringe) needle (disp) 18 G 18 gauge x 1 #30 ea 11/29/23 1/2 (BD Regular Bevel [place]) amoxicillin 875 mg-potassium 1 tab PO BID 7 days #14 tabs 12/17/23 clavulanate 125 mg tablet phenylephrine HCl 10 mg tablet 10 mg PO Q6H PRN nasal congestion 12/17/23 (Sudafed PE) #10 tabs tamsulosin 0.4 mg capsule 0.8 mg (2 x 0.4 mg) PO DAILY 90 05/22/24 days #180 caps alfuzosin 10 mg tablet,extended 10 mg PO BEDTIME 30 days #30 tabs 06/04/24 release 24 hr testosterone cypionate 200 mg/mL 200 mg IM Q2W 28 days #2 mL 06/04/24 intramuscular oil diazepam 5 mg tablet (Valium) 5 mg PO BID PRN muscle spasm #10 07/24/24 tabs cefuroxime axetil 500 mg tablet 500 mg PO Q12H #14 tabs 08/02/24 Allergies Allergy/AdvReac Type Severity Reaction Status Date / Time No Known Drug Allergies Allergy Mild Unknown Verified 08/02/24 18:09 SEAFOOD Allergy Severe ANAPHYLAXIS Uncoded 07/25/24 21:18 shellfish Allergy Severe Anaphylaxis Uncoded 07/25/24 21:18 Review of Systems 2 Constitutional: Constitutional: Denies body ache(s), Denies chills and Denies fever(s) Eyes: Eyes: Denies blurry vision and Denies exophthalmos ENT: Denies vertigo and Denies dizziness Cardiovascular: Cardiovascular: Denies chest pain and Reports leg edema Respiratory: Respiratory: Denies cough Gastrointestinal: Gastrointestinal: Denies abdominal pain Genitourinary: Genitourinary: Reports difficulty urinating and Reports dysuria Musculoskeletal: Musculoskeletal: Reports back pain Integumentary/Breasts: Skin/Breast: Denies rash Neurologic: Denies vertigo and Denies dizziness Psychiatric: Psychiatric: Denies anxiety PMFSH Past Medical History Medical History Anemia Hx of substance abuse Smoker History of Helicobacter pylori infection Spinal pain Hypogonadism Erectile dysfunction Hx: UTI (urinary tract infection) BPH (benign prostatic hyperplasia) Hx of hepatitis C GERD (gastroesophageal reflux disease) Anxiety and depression HTN (hypertension) Murmur Surgical History Hx of cystoscopy Family History Family History Mother Diabetes Social History Social History Alcohol intake: former Patient Tobacco Use Status: Current everyday Tobacco user Smoked in Last 30 Days: No Use of substances other than those prescribed or required for medical reasons: Yes Substance Use Type: Crack/Cocaine and Heroin Advance Directives: No Advance Directives Information Provided: No Do you have a plan to hurt others: No Plan Current occupational status: unemployed Physical Exam 2 Vital Signs: Vital Signs: Last Vital Signs Temp 97.8 F 08/02/24 21:50 Pulse 107 H 08/02/24 21:50 Resp 16 08/02/24 21:50 BP 128/71 08/02/24 21:50 Pulse Ox 98 08/02/24 21:50 O2 Del Method Room Air 08/02/24 21:50 BMI result Body Mass Index 22.8 Const: General: healthy appearing, comfortable, no acute distress, alert and awake Nutritional Appearance: well nourished Orientation/consciousness: p atient oriented x3 HEENT: Head: Yes normocephalic and Yes atraumatic Eyes: Eyelids: Yes eyelids normal Conjunctivae: conjunctivae normal S clerae: sclerae normal Corneas: corneas normal Pupils: Equal, round and reactive pupils present EOM: EOMs intact bilaterally Neck: Neck: Yes full ROM Resp: Effort & Inspection: normal respiratory effort, able to speak in complete sentences and not labored Cardio: Rate: regular rate Rhythm: regular rhythm GI: Inspection: No distended Palpation (GI): Soft to palpation, not firm, nontender, no guarding and not rigid Skin: General skin exam: elasticity normal Neuro: General: patient oriented x3 Cranial nerves: Yes Equal, round and reactive pupils present and Yes Bilaterally intact EOM present Cognition (Neuro): normal cognition Extrem: Other: 2+ pitting edema in the left lower extre mity, 1+ pitting edema in the right Medical Decision Making Medical Decision Making MDM Narrative: 64-year-old male past medical history as documented above presents for evaluation of leaking from his Gregorio catheter which appears to have been fixed in triage. He has not had any further leaking. He does appear to have a UTI. This is a new Gregorio from a week ago, he does not have a chronic Gregorio, so this is less likely to be a colonization. He will require antibiotics for a UTI. He follows up with Urology in 3 days. He does have leg swelling, we will get ultrasounds to rule out DVT he does have a history of substance abuse and this may contribute to his leg swelling. His BNP is within normal limits, he has no crackles on exam on auscultation his lungs. He is not in any respiratory distress and denies shortness of breath, doubt heart failure Differential Diagnosis Differential Diagnoses: The differential diagnosis associated with the presentation includes UTI Gregorio catheter malfunction Volume overload Peripheral edema DVT Lab Data MDM Lab Attestation statement: I reviewed the patient's lab results. Leukocytosis to 15.9 which is likely related to UTI. There is also a left shift. The patient has a chronic anemia consistent with his baseline. Chemistries with no significant abnormalities 08/02/24 18:57 08/02/24 18:57 Labs: Lab Results 08/02/24 08/02/24 Range/Units 18:57 20:03 WBC 15.9 H (4.8-10.8) X10*3/uL RBC 3.97 L (4.60-5.80) X10*6/uL Hgb 12.9 L (14.0-18.0) g/dl Hct 37.5 L (42.0-52.0) % MCV 94.5 (80.0-98.0) fL MCH 32.5 (27.0-33.0) pg MCHC 34.4 (31.0-36.0) g/dl RDW 13.7 (11.0-16.0) % Plt Count 190 (160-400) X10*3/uL MPV 10.7 (9.4-12.4) fL Immature Gran % (Auto) 0.3 (0.0-0.4) % Neut % (Auto) 87.7 H (45-73) % Lymph % (Auto) 6.2 L (20-40) % [place] % (Auto) 5.0 (2-11) % Eos % (Auto) 0.6 (0-4) % Baso % (Auto) 0.2 (0-2) % Lymph # (Auto) 1.0 L (1.2-4.9) X10*3/uL [place] # (Auto) 0.8 (0.1-1.2) X10*3/uL Eos # (Auto) 0.1 (0.0-0.4) X10*3/uL Baso # (Auto) 0.0 (0.0-0.2) X10*3/uL Abs Immat Gran (auto) 0.05 H (0.00-0.03) X10*3/uL Absolute Neuts (auto) 14.0 H (2.0-8.3) x10*3/uL Absolute Nucleated RBC 0.000 (0.0-0.012) X10*3/uL Nucleated RBC % (auto) 0.0 (0.0-0.2) /100WBC Sodium 141 (135-145) mmol/L Potassium 4.0 (3.3-5.1) mmol/L Chloride 102 (96-108) mmol/L Carbon Dioxide 29 (22-29) mmol/L Anion Gap 14 (12-20) BUN 19 H (9-16) mg/dL Creatinine 1.00 (0.5-1.4) mg/dL Estim Creat Clear Calc 79.3 Estimated GFR > 60 Random Glucose 116 H (60-115) mg/dL Calcium 9.4 (8.4-10.2) mg/dL Total Bilirubin 1.0 (0.0-1.0) mg/dL AST 40 H (5-37) U/L ALT 35 (0-40) U/L Alkaline Phosphatase 47 (39-117) U/L B-Natriuretic Peptide < 10 (<100) pg/mL Total Protein 7.1 (6.5-8.0) g/dL Albumin 4.3 (3.5-5.0) g/dL Urine Color Dark Yellow Urine Appearance Turbid Urine pH 6.0 (5.0-9.0) Ur Specific [place] >= 1.030 H (1.005-1.025) Urine Protein 100 (2+) H (Neg-Trace) mg/dL Urine Glucose (UA) Negative (Negative) mg/dL Urine Ketones 15 (Negative) mg/dL Urine Blood Large (3+) H (Negative) Urine Nitrite Positive H (Negative) Ur Leukocyte Esterase Moderate (2+) H (Negative) Urine RBC >20 H (0-2) /HPF Urine WBC >50 H (0-5) /HPF Ur Squamous Epith Cells 0-2 (0-2) /HPF Other Crystals Present Urine Bacteria 2+ (None Seen) Hyaline Casts 6-10 (0-2) /LPF Urine Opiates Screen Not Detected (Not Detect) Ur Buprenorphine Scrn Not Detected (Not Detect) ng/mL Ur Oxycodone Screen Not Detected (Not Detect) ng/mL Urine Methadone Screen Positive H (Not Detect) ng/mL Urine Fentanyl Screen Not Detected (Not Detect) Ur Barbiturates Screen Not Detected (Not Detect) Ur Phencyclidine Scrn Not Detected (Not Detect) Ur Amphetamines Screen Not Detected (Not Detect) U Benzodiazepines Scrn POSITIVE H (Not Detect) Urine Cocaine Screen Not Detected (Not Detect) U Marijuana (THC) Screen Not Detected (Not Detect) Discharge Plan Discharge Clinical Impression: Acute UTI, Leg swelling, Chronic constipation Patient Disposition: Home, Self-Care Instructions: Constipation (ED), Urinary Tract Infection in Men (ED) Additional Instructions: Take the antibiotic as directed for urinary tract infection. Follow-up with your urologist on Sunday as planned. Your ultrasound did not show any evidence of blood clots in your legs Your x-ray did show moderate amount of constipation, I recommend that you use an [id number] stool softener/laxative Return for new or worsening symptoms Prescriptions: New cefuroxime axetil 500 mg tablet 500 mg PO Q12H Qty: 14 0RF No Action docusate sodium [Colace] 100 mg capsule 200 mg PO BEDTIME 30 Days Qty: 60 3RF pantoprazole 20 mg tablet,delayed release (DR/EC) 40 mg PO DAILY Qty: 60 6RF (DME) BD Regular Bevel [place] 18 gauge x 1 1/2 needle See Rx Instructions .MEDSUPPLY Qty: 30 0RF Rx Instructions: As directed tamsulosin 0.4 mg capsule 0.8 mg PO DAILY 90 Days Qty: 180 1RF clonazepam 1 mg Tablet 1 mg PO DAILY methadone 40 mg Tablet,Soluble 36 mg PO DAILY omeprazole 20 mg Capsule,Delayed Release(Dr/Ec) 20 mg PO DAILY hydroxyzine HCl 25 mg Tablet 25 mg PO TID PRN (Reason: Itching) fluticasone propionate [Flonase Allergy Relief] 50 mcg/actuation [place],Suspension 1 spray INTRANASAL DAILY cholecalciferol (vitamin D3) [Vitamin D3] 50 mcg (2,000 unit) Capsule 50 mcg PO DAILY amoxicillin-pot clavulanate 875-125 mg tablet 1 tab PO BID 7 Days Qty: 14 0RF phenylephrine HCl [Sudafed PE] 10 mg tablet 10 mg PO Q6H PRN (Reason: nasal congestion) Qty: 10 0RF diazepam [Valium] 5 mg tablet 5 mg PO BID PRN (Reason: muscle spasm) Qty: 10 0RF trazodone 50 mg tablet 25 mg PO BEDTIME mirtazapine 15 mg tablet 15 mg PO BEDTIME fluoxetine 10 mg capsule 20 mg PO QAM nicotine 14 mg/24 hr patch 24 hour 0 patch topical bisacodyl [Dulcolax (bisacodyl)] 5 mg tablet,delayed release (DR/EC) 10 mg PO ONCE 1 Days Qty: 2 0RF Rx Instructions: Take 2 tablets by mouth at 12:00pm the day before your procedure. polyethylene glycol 3350 [Miralax] 17 gram/dose powder 238 g PO ONCE 1 Days Qty: 238 0RF Rx Instructions: Take as directed by mouth the day before your procedure. cetirizine 10 mg tablet 10 mg PO DAILY PRN (Reason: congestion) lidocaine [Lidoderm] 5 % adhesive patch,medicated 0 patch topical ferrous sulfate [FeroSul] 325 mg (65 mg iron) tablet 325 mg PO DAILY ascorbic acid (vitamin C) [Vitamin C] 500 mg tablet 500 mg PO DAILY sennosides [senna] 8.6 mg tablet 17.2 mg PO DAILY alfuzosin 10 mg tablet extended release 24 hr 10 mg PO BEDTIME 30 Days Qty: 30 1RF Rx Instructions: Take before bedtime testosterone cypionate 200 mg/mL oil 200 mg IM Q2W 28 Days Qty: 2 5RF albuterol sulfate [Ventolin HFA] 90 mcg/actuation HFA aerosol inhaler 2 puff inhalation Q4H PRN (Reason: wheezing) ibuprofen 600 mg tablet 600 mg PO Q8H PRN (Reason: headache) melatonin 5 mg tablet 5 - 10 mg PO BEDTIME PRN rosuvastatin 10 mg tablet 10 mg PO QAM clonazepam 0.5 mg tablet 1 mg PO BID PRN nicotine (polacrilex) 2 mg lozenge 2 mg PO simethicone [Gas Relief Extra Strength] 125 mg capsule 125 mg PO BEDTIME multivitamin Tablet 1 tab PO QAM (DME) syringe (disposable) [BD Luer-Vira Syringe] 3 mL syringe See Rx Instructions .Route Qty: 25 0RF Rx Instructions: As directed 1 syringe [id number] 2 syringes total per month for T injection (DME) BD Regular Bevel [place] 22 gauge x 1 1/2 needle See Rx Instructions .MEDSUPPLY Qty: 30 0RF Rx Instructions: As directed Print Language: Ukrainian
[2024-08-02 20:00] VITALS: BP 112/63; PULSE 85; RESP 16; O2SAT 97
[2024-08-02 20:22] LABS: Amphetamine Screen Urine Not Detected (Not Detect); Barbiturates, Urine Not Detected (Not Detect); Benzodiazepines Screen Urine POSITIVE (Not Detect); Buprenorphine Scr Not Detected (Not Detect); Cannabinoid Screen Urine Not Detected (Not Detect); Cocaine Screen Urine Not Detected (Not Detect); Fentanyl, urine Not Detected (Not Detect); Methadone Screen, Urine Positive (Not Detect); Opiate Screen Urine Not Detected (Not Detect); Oxycodone Screen Urine Not Detected (Not Detect); Phencyclidine Screen Urine Not Detected (Not Detect)
[2024-08-02 21:50] VITALS: BP 128/71; PULSE 107; RESP 16; TEMP 36.6; O2SAT 98
[2024-08-02] MEDS: cefuroxime axetiL 500 MG TABLET PO (22:09)
[2024-08-02 22:26] VITALS: BP 128/71; PULSE 107; RESP 16; TEMP 36.6; O2SAT 98
--- NOTE | 2024-08-02 22:29 | PC.NURSE ---
RONALD paperwork thoroughly reviewed with patient with model builder display. Explained importance of taking all abx as prescribed, gave larger gregorio bag for patient to switch to at night, explained larger bag will not fit in his pants, explained importance of fully closing leg bag valve so patient's urine does not leak on his pants, stressed importance of following up w/ urology, all questions answered. Patient verbalized understanding and escorted out to waiting room to wait for to pick him up.
== END 2024-08-02 22:29 | disposition home or self-care (01) ==
PROVIDERS: Physician Assistant; Physician Assistant Medical; Emergency Provider Emergency Medicine Emergency Medical Services; PCP Registered Nurse
DX: N39.0 Urinary tract infection, site not specified (principal); R60.0 Localized edema; K59.09 Other constipation; I10 Essential (primary) hypertension; D64.9 Anemia, unspecified; F19.10 Other psychoactive substance abuse, uncomplicated; Z87.440 Personal history of urinary (tract) infections; Z96.0 Presence of urogenital implants; F17.200 Nicotine dependence, unspecified, uncomplicated
CPT/HCPCS: 36415; 74018; 80053; 80307; 81001; 83880; 85025; 87086; 87088; 87186; 93970; 99284

== ENCOUNTER 2024-08-05 13:07 | Outpatient (AMB) | payer MEDICAID, SELFPAY ==
--- NOTE | 2024-08-05 13:12 | A.OFFVIS_ITS ---
Intake Visit Reasons: 2M Med Review(alfuzosin) Intake Note: Patient is present for 2M MED REVIEW Urology Medication:TAMSULOSIN,ALFUZOSIN Antibiotic Allergy:NONE Blood Thinner:NONE Supervisor Tank House Required: No Allergies No Known Drug Allergies Allergy (Mild, Verified 08/29/24 10:37) Unknown SEAFOOD Allergy (Severe, Uncoded 07/25/24 21:18) ANAPHYLAXIS shellfish Allergy (Severe, Uncoded 07/25/24 21:18) Anaphylaxis HPI Comments Details: John is a male. He is a patient of Dr. Mar. He is seen for the following urologic conditions - hypogonadism - lower urinary tract symptoms - urinary retention Canadian translation provided by qualified medical receptionist Two month follow-up trial of alfuzosin Recent hospital admission with weakness. Rehydration. Gregorio catheter placed. This was 10 days ago. Recommend voiding trial while here Currently being treated for UTI Performing testosterone injection once every 2 weeks 1 cc Previously noted weakness of stream on discussion with nocturia and feelings of incomplete emptying Hypogonadism Patient states everything is going well not having any complications or side effects which were reviewed the potential morbidity mortality of testosterone placement therapy reviewed all questions answered informed consent obtained. Injection day - Laboratory day - Sunday Current therapy 1 cc every 2 weeks to his thigh testosterone cypionate Laboratories - 06/23 T 362, PSA 1.5, Hct 41.4, 06/24 T 159 H 42, 09/26 T 365, 05/27 T 700 P 2.4 Concurrent comorbidities - methadone use, nicotine Discussed laboratory results Follow in 6 months Lower urinary tract symptoms 06/26 episode of retention with UTI Gregorio catheter Alfuzosin - blood pressure issues PFSH Medical History Anemia Hx of substance abuse Smoker History of Helicobacter pylori infection Spinal pain Hypogonadism Erectile dysfunction Hx: UTI (urinary tract infection) BPH (benign prostatic hyperplasia) Hx of hepatitis C GERD (gastroesophageal reflux disease) Anxiety and depression HTN (hypertension) Murmur Surgical History Hx of cystoscopy Family History Mother Diabetes Social History Alcohol intake: former Patient Tobacco Use Status: Current everyday Tobacco user Substance Use Type: Crack/Cocaine and Heroin Current occupational status: unemployed Review of Systems Const Denies chills and Denies fever(s) Card Reports no additional complaints and Denies syncope Resp Denies cough GI Denies abdominal pain and Denies heartburn Reports as per HPI and Denies change in libido Neuro Denies syncope Psych Denies change in libido Endo Denies change in libido Physical Exam Const General: cooperative, healthy appearing, comfortable and no acute distress Orientation/consciousness: patient oriented x3 HEENT Face and sinus: Yes normal facial exam Mouth: moist mucous membranes Neck Neck: Yes normal visual inspection, Yes full ROM and Yes trachea midline Chest Chest palpation & inspection: normal inspection of the chest Resp Effort & Inspection: normal respiratory effort, able to speak in complete sentences and no respiratory distress GI Inspection: Yes normal to inspection Back/Spine/Pelvis Cervical Spine: normal cervical lordosis Thoracic/Lumbar Spine: thoracic and lumbar spine normal to inspection Skin General skin exam: no rashes or lesions noted Neuro General: patient oriented x3, gait normal, tone normal and moves all extremities Extrem General: Yes normal to inspection and Yes capillary refill normal Office Procedures Bladder/Catheter Procedure Details: 120mls sterile water instilled through catheter, patient tolerated instillation well. Removed 16fr gregorio catheter, patient tolerated removal well. Patient able to void approximately 250mls. Bladder scanned for 0mls. Patient educated to drink plenty of water to ensure urination, to seek emergency room care if unable to void or has difficulty after leaving office. Patient to make 2 week follow up with nursing for PVR per Dr. Lux at checkout. [id number] of Bladder Procedure code (CPT) selection complete Post Void Residual Post Residual Void Post Void Residual (PVR): 0 [id number] Void Residual by ultrasound Results AMB Urinalysis, Automated UA Leukoctes 125 [place]adne/uL Last Edit by STEFAN Emmanuel on 08/05/24 13:44 UA Nitrite Negative Last Edit by STEFAN Emmanuel on 08/05/24 13:44 UA Urobilinogen 1 mg/dL Last Edit by STEFAN Emmanuel on 08/05/24 13:44 UA Protein 15 mg/dL Last Edit by STEFAN Emmanuel on 08/05/24 13:44 UA pH 6.5 Last Edit by STEFAN Emmanuel on 08/05/24 13:44 UA Blood 200 Justo/uL Last Edit by STEFAN Emmanuel on 08/05/24 13:44 UA Specific [place] 1.010 Last Edit by STEFAN Emmanuel on 08/05/24 13: 44 UA Ketone Negative Last Edit by STEFAN Emmanuel on 08/05/24 13:44 UA Bilirubin 0 mg/dL Last Edit by STEFAN Emmanuel on 08/05/24 13:44 UA Glucose 0 mg/dL Last Edit by STEFAN Emmanuel on 08/05/24 13:44 Results Reviewed Results Reviewed: Laboratory Last Values Urine pH (Auto) 6.5 08/05/24 13:43 Specific [place] (Auto) 1.010 08/05/24 13:43 Urine Protein (Auto) 15 mg/dL 08/05/24 13:43 Glucose (UA)(Auto) 0 mg/dL 08/05/24 13:43 Urine Ketones (Auto) Negative 08/05/24 13:43 Urine Blood (Auto) 200 Justo/uL 08/05/24 13:43 Urine Nitrite (Auto) Negative 08/05/24 13:43 Urine Bilirubin (Auto) 0 mg/dL 08/05/24 13:43 Urine Urobilinogen (Auto) 1 mg/dL 08/05/24 13:43 Leukocyte Esterase (Auto) 125 Ariadne/uL 08/05/24 13:43 Assessment & Plan Assessment & Plan (1) Erectile dysfunction: Code(s): N52.9 - Male erectile dysfunction, unspecified Category: Medical (2) Hypogonadism in male: Code(s): E29.1 - Testicular hypofunction Category: Medical (3) BPH (benign prostatic hyperplasia): Code(s): N40.0 - Benign prostatic hyperplasia without lower urinary tract symptoms Category: Medical Plan Follow-up for voiding and hypogonadism Orders: Orders AMB Urinalysis Automated 08/05/24 Z13.9 - Encounter for screening, unspecified AMB Bladder/Catheter Procedure 08/05/24 N40.0 - Benign prostatic hyperplasia without lower urinary tract symptoms, Z87.440 - Personal history of urinary (tract) infections AMB Post Void Residual by ultrasound 08/05/24 N40.0 - Benign prostatic hyperplasia without lower urinary tract symptoms, Z87.440 - Personal history of urinary (tract) infections Medications: Discontinued tamsulosin Discontinued Reason: Patient Completed Course 0.8 mg (2 x 0.4 mg) PO DAILY 90 days 180 caps 1RF Patient Instructions: Imaging studies, laboratory and physical exam results were discussed and reviewed in detail. No major barriers to patient understanding were identified. An opportunity to ask questions regarding the treatment plan was provided. All questions were answered. The patient expressed understanding and agreement with the above treatment plan. The patient is aware they should contact our office by phone for worsening of their current condition or the appearance of new urologic symptoms. Compliance is encouraged with any medications and followup testing that is ordered. It is a privilege to participate in the urologic care of your patient. If you have any questions or concerns regarding treatment for the above conditions, or other urologic issues, please do not hesitate to contact me. The office telephone contact is [phone]. This note is constructed using voice recognition software. While every effort has been made to ensure accuracy sow farm technician errors may have been included. Yours sincerely, Dr Julian Lux MD, [facility] - Urology Providers of Expert, Compassionate Care for the Genitourinary System Coding Level of Care Code Est Pt Level 3 (89533) Diagnoses Erectile dysfunction N52.9 Hypogonadism in male E29.1 BPH (benign prostatic hyperplasia) N40.0 CPT Codes Bladder/Catheter Procedure - CPT: 90556-Meeyptpxxo of Bladder ([id number]) Post Residual Void - PVR CPT Code: 77452-Qhpn Void Residual by ultrasound ([id number])
== END 2024-08-05 14:28 | disposition home or self-care (01) ==
LOC: HO.HUSH 13:07
PROVIDERS: PCP Registered Nurse; Visit Provider Urology
DX: Z13.9 Encounter for screening, unspecified (principal)
CPT/HCPCS: 51700; 99213

== ENCOUNTER → 2024-08-05 13:07 | Outpatient (BNVA) | payer MEDICAID, SELFPAY | PROVIDERS: PCP Registered Nurse; Visit Provider Urology | DX: N40.1 Benign prostatic hyperplasia with lower urinary tract symptoms (principal); E29.1 Testicular hypofunction; N52.9 Male erectile dysfunction, unspecified; R33.8 Other retention of urine; Z87.440 Personal history of urinary (tract) infections | CPT/HCPCS: 51700; 51798; 81003; 99212 ==

== ENCOUNTER 2024-08-14 11:57 | Outpatient (REF) | payer MEDICAID, SELFPAY ==
[2024-08-14 13:34] LABS: Alanine Aminotransferase 42 U/L (0-40); Albumin Level 4.8 g/dL (3.5-5.0); Alkaline Phosphatase 56 U/L (39-117); Anion Gap 14 (12-20); Aspartate Amino Transferase 42 U/L (5-37); Blood Urea Nitrogen 13 mg/dL (9-16); Calcium 10.1 mg/dL (8.4-10.2); Carbon Dioxide 30 mmol/L (22-29); Chloride 101 mmol/L (96-108); Estimated Glomerular Filt Rate > 60; Glucose Random 118 mg/dL (60-115); Potassium 3.8 mmol/L (3.3-5.1); Sodium 141 mmol/L (135-145); Total Protein 8.1 g/dL (6.5-8.0)
[2024-08-14 13:53] LABS: Appearance Urine Cloudy; Color Urine Yellow; Glucose Urine UA Negative (Negative); Leukocyte Esterase Urine Trace (Negative); Nitrite Urine Negative (Negative); UMIC TRIGGER UACC YES; Urine Blood Negative (Negative); Urine Ketones Trace mg/dL (Negative); Urine Protein 30 (1+) mg/dL (Neg-Trace)
[2024-08-14 13:57] LABS: Bacteria Urine None Seen (None Seen); Hyaline Casts Urine 0-2 /LPF (0-2); RBC Urine 0-2 /HPF (0-2); Squamous Epithelial Cell Urine 0-2 /HPF (0-2); UACC Culture Trigger YES
[2024-08-14 14:10] LABS: Creatinine Urine 175.97 mg/dL; Protein/Creatinine Ratio, Ur 0.23 (<0.2); Total Protein Urine Random 41 mg/dL (<12)
== END 2024-08-14 11:58 | disposition home or self-care (01) ==
LOC: HO.HHCL 11:57
PROVIDERS: Visit Provider Registered Nurse
DX: R80.9 Proteinuria, unspecified (principal); R60.0 Localized edema
CPT/HCPCS: 36415; 80053; 81001; 82570; 84156; 87086

== ENCOUNTER → 2024-08-20 11:08 | Outpatient (BNVA) | payer MEDICAID, SELFPAY | PROVIDERS: PCP Registered Nurse; Visit Provider Urology | DX: N40.0 Benign prostatic hyperplasia without lower urinary tract symptoms (principal); Z87.440 Personal history of urinary (tract) infections | CPT/HCPCS: 51798 ==

== ENCOUNTER 2024-08-29 10:32 | Outpatient (AMB) | payer MEDICAID, SELFPAY ==
--- NOTE | 2024-08-29 10:33 | HO.NEPHOV ---
Vital Signs 08/29/24 10:36 Height 5 ft 8 in Weight 151 lb 4 oz BMI 23.0 BP 115/60 Blood Pressure Location Lt brachial Position Sitting Pulse 87 Pulse Source Pulse Oximeter Pulse Oximetry (%) 99 Oxygen Delivery Method Room Air Intake Visit Reasons: ENP: Persistent proteinuria/ Conf Concrete Pipe Machine Operator Required: Yes Concrete Pipe Machine Operator Name: Conrad [id number] Accompanied by: Friend Allergies No Known Drug Allergies Allergy (Mild, Verified 08/29/24 10:37) Unknown SEAFOOD Allergy (Severe, Uncoded 07/25/24 21:18) ANAPHYLAXIS shellfish Allergy (Severe, Uncoded 07/25/24 21:18) Anaphylaxis Medication List - Last Reconciled 08/29/24 by Jesus Denise MD albuterol sulfate 90 mcg/actuation (Ventolin HFA) 2 puffs inhalation Q4H PRN alfuzosin ER 10 mg PO BEDTIME 30 days amoxicillin-pot clavulanate 875-125 mg 1 tab PO BID 7 days ascorbic acid (vitamin C) (Vitamin C) 500 mg PO DAILY bisacodyl (Dulcolax (bisacodyl)) 10 mg (2 x 5 mg) PO ONCE 1 day cefuroxime axetil 500 mg PO Q12H cetirizine 10 mg PO DAILY PRN cholecalciferol (vitamin D3) (Vitamin D3) 50 mcg PO DAILY clonazepam 1 mg PO DAILY clonazepam 1 mg PO BID PRN diazepam (Valium) 5 mg PO BID PRN docusate sodium (Colace) 200 mg (2 x 100 mg) PO BEDTIME 30 days ferrous sulfate (FeroSul) 325 mg PO DAILY fluoxetine 20 mg PO QAM fluticasone propionate 50 mcg/actuation (Flonase Allergy Relief) 1 spray intranasal DAILY hydroxyzine HCl 25 mg PO TID PRN ibuprofen 600 mg PO Q8H PRN lidocaine 5% (Lidoderm) 0 patches topical melatonin 5 - 10 mg PO BEDTIME PRN methadone 36 mg PO DAILY mirtazapine 15 mg PO BEDTIME multivitamin 1 tab PO QAM needle (disp) 18 G (BD Regular Bevel [place]) As directed needle (disp) 22 G As directed nicotine 0 patches topical nicotine (polacrilex) 2 mg PO nitrofurantoin monohyd/m-cryst 100 mg (Macrobid) 100 mg PO Q12H 7 days omeprazole 20 mg PO DAILY pantoprazole 40 mg (2 x 20 mg) PO DAILY phenylephrine HCl (Sudafed PE) 10 mg PO Q6H PRN polyethylene glycol 3350 (Miralax) 238 grams PO ONCE 1 day rosuvastatin 10 mg PO QAM sennosides (senna) 17.2 mg PO DAILY simethicone (Gas Relief Extra Strength) 125 mg PO BEDTIME syringe (disposable) (BD Luer-Vira Syringe) As directed 1 syringe [id number]- 2 syringes total per month for T injection testosterone cypionate 200 mg IM Q2W 28 days trazodone 25 mg PO BEDTIME HPI Comments Details: 54-year-old male with medical history significant for BPH, UTI, GERD, substance abuse on methadone, mental health issues presents for evaluation of multiple complaints. Referred for proteinuria. He was recently hospitalized and had a urinary retention. De La Fuente catheter was inserted [facility]. He has been followed by Urology. Accompanied by caregiver History of drug abuse.He had he relapsed in March of 2024. Currently he is on methadone. [facility] Medical History Anemia Hx of substance abuse Smoker History of Helicobacter pylori infection Spinal pain Hypogonadism Erectile dysfunction Hx: UTI (urinary tract infection) BPH (benign prostatic hyperplasia) Hx of hepatitis C GERD (gastroesophageal reflux disease) Anxiety and depression HTN (hypertension) Murmur Surgical History Hx of cystoscopy Family History Mother Diabetes Social History Alcohol intake: former Patient Tobacco Use Status: Current everyday Tobacco user Substance Use Type: Crack/Cocaine and Heroin Current occupational status: unemployed Review of Systems Const Denies fever(s) and Denies weight loss Card Denies chest pain Resp Denies cough and Denies hemoptysis GI Denies abdominal pain, Denies diarrhea and Denies nausea Musc Denies back pain Neuro Denies focal weakness Physical Exam Vital Signs: Last Vital Signs Pulse 87 08/29/24 10:36 BP 115/60 08/29/24 10:36 Pulse Ox 99 08/29/24 10:36 Oxygen Delivery Method Room Air 08/29/24 10:36 BMI result Body Mass Index 23.0 Comfortable Neck supple no JVD. Lungs entry equal no rales. Heart S1-S2 heard no gallop or rub. Abdomen soft nontender. Neuro alert awake oriented. No asterixis. Extremities no edema. Results Reviewed Nephrology Results: Hgb 12.9 g/dl (14.0-18.0) L 08/02/24 WBC 15.9 X10*3/uL (4.8-10.8) H 08/02/24 Plt Count 190 X10*3/uL (160-400) 08/02/24 Sodium 141 mmol/L (135-145) 08/14/24 Potassium 3.8 mmol/L (3.3-5.1) 08/14/24 Chloride 101 mmol/L (96-108) 08/14/24 Carbon Dioxide 30 mmol/L (22-29) H 08/14/24 BUN 13 mg/dL (9-16) 08/14/24 Creatinine 0.95 mg/dL (0.5-1.4) 08/14/24 Calcium 10.1 mg/dL (8.4-10.2) 08/14/24 Urine Protein 30 (1+) mg/dL (Neg-Trace) H 08/14/24 Urine Creatinine 175.97 mg/dL 08/14/24 Protein/Creatinin Ratio 0.23 (<0.2) H 08/14/24 Assessment & Plan Assessment & Plan (1) BPH (benign prostatic hyperplasia): Code(s): N40.0 - Benign prostatic hyperplasia without lower urinary tract symptoms Category: Medical (2) Proteinuria: Code(s): R80.9 - Proteinuria, unspecified Category: Medical Plan 54-year-old man with substance abuse has minimal proteinuria. Renal function is normal with a serum creatinine 0.95. Imaging was unremarkable. Initiate a serological workup for the proteinuria. He will benefit from DARYL inhibition. We will need to review all his medications and asked the caregiver to bring all his medications. Further workup will be based on the outcome of the baseline investigations Orders: Orders Basic Metabolic Panel Today N40.0 - Benign prostatic hyperplasia without lower urinary tract symptoms, R80.9 - Proteinuria, unspecified Creatinine Urine Today N40.0 - Benign prostatic hyperplasia without lower urinary tract symptoms, R80.9 - Proteinuria, unspecified Total Protein Urine Random Today N40.0 - Benign prostatic hyperplasia without lower urinary tract symptoms, R80.9 - Proteinuria, unspecified UA and rflx microscopic Today N40.0 - Benign prostatic hyperplasia without lower urinary tract symptoms, R80.9 - Proteinuria, unspecified ANA LUISA Reflex Titer and Pattern Today R80.9 - Proteinuria, unspecified Phospholipase A2 Receptor Pnl Today R80.9 - Proteinuria, unspecified Protein Electrophoresis, Serum Today R80.9 - Proteinuria, unspecified Complement C3 Today R80.9 - Proteinuria, unspecified Complement C4 Today R80.9 - Proteinuria, unspecified Neutrophil Cytoplasma Ab Today R80.9 - Proteinuria, unspecified Medications: New furosemide (Lasix) 20 mg PO DAILY 90 tabs 0RF Discontinued amoxicillin-pot clavulanate 875-125 mg Discontinued Reason: Patient no longer taking 1 tab PO BID 7 days 14 tabs 0RF Coding Level of Care Code New Pt Level 4 (63723) Diagnoses BPH (benign prostatic hyperplasia) N40.0 Proteinuria R80.9
[2024-08-29 10:36] VITALS: BP 115/60; PULSE 87; O2SAT 99; BMI 23.0
== END 2024-08-29 10:54 | disposition home or self-care (01) ==
PROVIDERS: PCP Registered Nurse; Visit Provider Internal Medicine Hypertension Specialist
DX: N40.0 Benign prostatic hyperplasia without lower urinary tract symptoms (principal); R80.9 Proteinuria, unspecified
CPT/HCPCS: 99204

== ENCOUNTER → 2024-08-29 10:32 | Outpatient (BNVA) | payer MEDICAID, SELFPAY | PROVIDERS: PCP Registered Nurse; Visit Provider Internal Medicine Hypertension Specialist | DX: R80.1 Persistent proteinuria, unspecified (principal); N40.0 Benign prostatic hyperplasia without lower urinary tract symptoms | CPT/HCPCS: 99202 ==

== ENCOUNTER 2024-08-29 10:59 | Outpatient (REF) | payer MEDICAID, SELFPAY ==
[2024-08-29 11:44] LABS: Appearance Urine Clear; Color Urine Yellow; Glucose Urine UA Negative (Negative); Leukocyte Esterase Urine Negative (Negative); Nitrite Urine Negative (Negative); PH 8.5 (5.0-9.0); Urine Blood Negative (Negative); Urine Ketones Negative (Negative); Urine Protein Negative (Neg-Trace)
[2024-08-29 12:04] LABS: Anion Gap 12 (12-20); Blood Urea Nitrogen 11 mg/dL (9-16); Calcium 9.1 mg/dL (8.4-10.2); Carbon Dioxide 32 mmol/L (22-29); Chloride 100 mmol/L (96-108); Estimated Glomerular Filt Rate > 60; Glucose Random 103 mg/dL (60-115); Sodium 140 mmol/L (135-145)
[2024-08-29 12:38] LABS: Creatinine Urine 51.61 mg/dL; Total Protein Urine Random < 7 mg/dL (<12)
[2024-09-01 10:28] LABS: Anti Nuclear Antibody Screen NEGATIVE (NEGATIVE); Prot Elec - Albumin 4.2 g/dL (3.8-4.8); Prot Elec - Alpha1 0.4 g/dL (0.2-0.3); Prot Elec - Alpha2 0.9 g/dL (0.5-0.9); Prot Elec - Beta 1 0.4 g/dL (0.4-0.6); Prot Elec - Beta 2 0.4 g/dL (0.2-0.5); Prot Elec - Gamma 1.1 g/dL (0.8-1.7); Prot Elec - Total Protein 7.4 g/dL (6.1-8.1)
[2024-09-01 19:28] LABS: Complement C3 140 mg/dL (82-185)
[2024-09-05 23:44] LABS: Phospholipase A2 IgG ELISA <4 RU/mL; Phospholipase A2 IgG IFA NEGATIVE (NEGATIVE)
[2024-09-09 14:18] LABS: Atypical P-ANCA Titer 1:20 titer (<1:20); Neutrophil Cyto Ab Screen ATYP P-ANCA POS (NEGATIVE)
== END 2024-08-29 11:00 | disposition home or self-care (01) ==
LOC: HO.10HDL 10:59
PROVIDERS: Visit Provider Internal Medicine Hypertension Specialist
DX: N40.0 Benign prostatic hyperplasia without lower urinary tract symptoms (principal); R80.9 Proteinuria, unspecified
CPT/HCPCS: 36415; 80048; 81003; 82570; 83520; 84156; 84165; 86036; 86037; 86038; 86160; 86255

== ENCOUNTER 2024-09-19 09:35 | Outpatient (AMB) | payer MEDICAID, SELFPAY ==
--- NOTE | 2024-09-19 09:39 | HO.NEPHOV ---
Vital Signs 09/19/24 09:42 Height 5 ft 8 in Weight 149 lb 2 oz BMI 22.7 BP 134/70 Blood Pressure Location Lt brachial Position Sitting Pulse 85 Pulse Source Pulse Oximeter Pulse Oximetry (%) 98 Oxygen Delivery Method Room Air Intake Visit Reasons: BPH/ Conf Battalion Fire Chief Required: Yes Battalion Fire Chief Language: Commercial Real Estate Agent Services: Battalion Fire Chief Present Battalion Fire Chief Name: Merlin [id number] Accompanied by: Self / Same As Patient Allergies No Known Drug Allergies Allergy (Mild, Verified 09/19/24 09:41) Unknown SEAFOOD Allergy (Severe, Uncoded 07/25/24 21:18) ANAPHYLAXIS shellfish Allergy (Severe, Uncoded 07/25/24 21:18) Anaphylaxis Medication List - Last Reconciled 09/19/24 by Jesus Denise MD albuterol sulfate 90 mcg/actuation (Ventolin HFA) 2 puffs inhalation Q4H PRN alfuzosin ER 10 mg PO BEDTIME 30 days ascorbic acid (vitamin C) (Vitamin C) 500 mg PO DAILY bisacodyl (Dulcolax (bisacodyl)) 10 mg (2 x 5 mg) PO ONCE 1 day cefuroxime axetil 500 mg PO Q12H cetirizine 10 mg PO DAILY PRN cholecalciferol (vitamin D3) (Vitamin D3) 50 mcg PO DAILY clonazepam 1 mg PO DAILY clonazepam 1 mg PO BID PRN diazepam (Valium) 5 mg PO BID PRN docusate sodium (Colace) 200 mg (2 x 100 mg) PO BEDTIME 30 days ferrous sulfate (FeroSul) 325 mg PO DAILY fluoxetine 20 mg PO QAM fluticasone propionate 50 mcg/actuation (Flonase Allergy Relief) 1 spray intranasal DAILY furosemide (Lasix) 20 mg PO DAILY hydroxyzine HCl 25 mg PO TID PRN ibuprofen 600 mg PO Q8H PRN lidocaine 5% (Lidoderm) 0 patches topical melatonin 5 - 10 mg PO BEDTIME PRN methadone 36 mg PO DAILY mirtazapine 15 mg PO BEDTIME multivitamin 1 tab PO QAM needle (disp) 18 G (BD Regular Bevel [place]) As directed needle (disp) 22 G As directed nicotine 0 patches topical nicotine (polacrilex) 2 mg PO nitrofurantoin monohyd/m-cryst 100 mg (Macrobid) 100 mg PO Q12H 7 days omeprazole 40 mg PO QAM phenylephrine HCl (Sudafed PE) 10 mg PO Q6H PRN polyethylene glycol 3350 (Miralax) 238 grams PO ONCE 1 day rosuvastatin 10 mg PO QAM sennosides (senna) 17.2 mg PO DAILY simethicone (Gas Relief Extra Strength) 125 mg PO BEDTIME syringe (disposable) (BD Luer-Vira Syringe) As directed 1 syringe [id number]- 2 syringes total per month for T injection testosterone cypionate 200 mg IM Q2W 28 days trazodone 25 mg PO BEDTIME HPI Comments Details: 54-year-old male with medical history significant for BPH, UTI, GERD, substance abuse on methadone, mental health issues presents for evaluation of multiple complaints. Referred for proteinuria. He was recently hospitalized and had a urinary retention. De La Fuente catheter was inserted [facility]. He has been followed by Urology. Accompanied by caregiver History of drug abuse.He had he relapsed in March of 2024. Currently he is on methadone. 09/19/24 overall doing well No gross heamturia No edema PFSH Medical History Anemia Hx of substance abuse Smoker History of Helicobacter pylori infection Spinal pain Hypogonadism Erectile dysfunction Hx: UTI (urinary tract infection) BPH (benign prostatic hyperplasia) Hx of hepatitis C GERD (gastroesophageal reflux disease) Anxiety and depression HTN (hypertension) Murmur Surgical History Hx of cystoscopy Family History Mother Diabetes Social History Alcohol intake: former Patient Tobacco Use Status: Current everyday Tobacco user Substance Use Type: Crack/Cocaine and Heroin Current occupational status: unemployed Physical Exam Comfortable Neck supple no JVD. Lungs entry equal no rales. Heart S1-S2 heard no gallop or rub. Abdomen soft nontender. Neuro alert awake oriented. No asterixis. Extremities 1+ edema. Results Reviewed Nephrology Results: Hgb 12.9 g/dl (14.0-18.0) L 08/02/24 WBC 15.9 X10*3/uL (4.8-10.8) H 08/02/24 Plt Count 190 X10*3/uL (160-400) 08/02/24 Sodium 140 mmol/L (135-145) 08/29/24 Potassium 4.0 mmol/L (3.3-5.1) 08/29/24 Chloride 100 mmol/L (96-108) 08/29/24 Carbon Dioxide 32 mmol/L (22-29) H 08/29/24 BUN 11 mg/dL (9-16) 08/29/24 Creatinine 0.88 mg/dL (0.5-1.4) 08/29/24 Calcium 9.1 mg/dL (8.4-10.2) 08/29/24 Urine Protein Negative mg/dL (Neg-Trace) 08/29/24 Urine Creatinine 51.61 mg/dL 08/29/24 Protein/Creatinin Ratio 0.23 (<0.2) H 08/14/24 Assessment & Plan Assessment & Plan (1) BPH (benign prostatic hyperplasia): Code(s): N40.0 - Benign prostatic hyperplasia without lower urinary tract symptoms Category: Medical (2) Proteinuria: Code(s): R80.9 - Proteinuria, unspecified Category: Medical Plan 54-year-old man with substance abuse has minimal proteinuria. Renal function is normal with a serum creatinine 0.95. Imaging was unremarkable. No significant proteinuria UA is benign P-ANCA positive Cr stable and < 0.9 Plan recheck urine and ANCA/MPO/PR3 in 3 months Coding Level of Care Code Est Pt Level 4 (03534) Diagnoses BPH (benign prostatic hyperplasia) N40.0 Proteinuria R80.9
[2024-09-19 09:42] VITALS: BP 134/70; PULSE 85; O2SAT 98; BMI 22.7
== END 2024-09-19 09:54 | disposition home or self-care (01) ==
PROVIDERS: PCP Registered Nurse; Visit Provider Internal Medicine Hypertension Specialist
DX: N40.0 Benign prostatic hyperplasia without lower urinary tract symptoms (principal); R80.9 Proteinuria, unspecified
CPT/HCPCS: 99214

== ENCOUNTER 2024-09-19 10:16 | Outpatient (REF) | payer MEDICAID, SELFPAY ==
--- NOTE | 2024-09-19 10:24 | PFT_ITS ---
Flows: FEV1: 83 % of predicted at 2.88 L FVC: 72 % of predicted at 3.20 L FEV1/FVC: 90 % Bronchodilator response: Present small to medium airways only Volumes: Total lung capacity: 85 % of predicted at 5.71 L Residual volume: 111 % of predicted at 2.16 L Slow vital capacity: 73 % of predicted at 3.54 L Expiratory reserve volume: 74 % of predicted at 0.93 L Diffusion capacity: Normal Impression: No obstructive or restrictive ventilatory defect. Bronchodilator response is present in small to medium airways only. MTDD
== END 2024-09-19 10:17 | disposition home or self-care (01) ==
LOC: HO.RESP 10:16
PROVIDERS: PCP Registered Nurse; Visit Provider Registered Nurse
DX: R06.02 Shortness of breath (principal); J84.9 Interstitial pulmonary disease, unspecified
CPT/HCPCS: 94010; 94640; 94727; 94729

== ENCOUNTER → 2024-09-19 10:24 | Outpatient (BNV) | payer MEDICAID, SELFPAY | PROVIDERS: PCP Registered Nurse; Visit Provider Internal Medicine Pulmonary Disease | DX: R06.02 Shortness of breath (principal) | CPT/HCPCS: 94060; 94727; 94729 ==

== ENCOUNTER 2024-10-10 | Outpatient (REF) | payer MEDICAID, SELFPAY ==
--- NOTE | ~2024-10-10 | XR_ITS ---
EXAMINATION: XR KNEE, LEFT CLINICAL INFORMATION: chronic knee pain COMPARISON: None available. TECHNIQUE: Four views of the left knee. FINDINGS: There is mild Joint space narrowing involving the medial compartment. No acute fracture or dislocation. No suprapatellar bursa joint effusion. No lytic or blastic lesions. No metallic or radiopaque foreign body. XR/XR knee LT 4V IMPRESSION: Mild medial compartment osteoarthrosis. Electronically signed by: Darryl Zaidi MD 10/10/2024 03:10 PM BRYAN CHAVEZ
--- NOTE | ~2024-10-10 | XR_ITS ---
EXAMINATION: XR KNEE, RIGHT CLINICAL INFORMATION: chronic knee pain COMPARISON: None available. TECHNIQUE: Four views of the right knee. FINDINGS: No acute fracture or dislocation. No lytic or blastic lesions. No suprapatellar bursa joint effusion. Preservation of the joint spaces. XR/XR knee RT 4V IMPRESSION: Normal right knee. Electronically signed by: Darryl Zaidi MD 10/10/2024 03:09 PM BRYAN
--- OUTSIDE RECORDS SUMMARY | 2024-10-10 10:39 | XMS_ITS | Clinical Summary ---
Author Organization [facility] Address [address] [place] [address] Phone Care Team Providers Care Coding Support Specialist Name Role Phone [facility] Primary Care Provider [phone] Medications Medication Sig Dispensed Refills Start Date End Date Status polyethylene glycol (Golytely) 236-22.74-6.74 -5.86 gram solution Take 4L by mouth once for one dose. May substitue any PEG. Starting at 6PM the night before your procedure drink 1 8oz glasses at your own pace until you complete half of the gallon. Finish 2nd half of the gallon 5 hours before your procedure. 4000 mL 09/10/2024 Active bisacodyL (DULCOLAX) 5 mg EC tablet Take 2 tablets by mouth right before beginning bowel prep. See instructions provided by the office 2 tablet 09/10/2024 Active Social History Tobacco Use Types Packs/Day Years Used Date Smoking Tobacco: Never Assessed Sex and Gender Information Value Date Recorded Sex Assigned at Not on file Gender Identity Not on file Sexual Orientation Not on file Job Start Date Occupation Industry Not on file Not on file Not on file Plan of Treatment Health Maintenance Due Date Last Done Comments DTaP,Tdap,and Td Vaccines (1 - Tdap) 1987 Hepatitis B Vaccines (1 of 3 - 19+ 3-dose series) 1987 Zoster Vaccines (1 of 2) 2018 COVID-19 Vaccine (2023-2 5 season) 2024 Influenza Vaccine (#1) 2024 Cholesterol Screening (Lipid Panel) 06/16/2024 Colorectal Cancer Screening: Colonoscopy 06/16/2024 Depression Screening 06/16/2024 HIV Screening 06/16/2024 Hepatitis C Screening 06/16/2024 Social Influencers of Health Screening 06/16/2024 HIB Vaccines Aged Out No longer eligi ble based on patient's age to complete this topic HPV Vaccines Aged Out No longer eligi ble based on patient's age to complete this topic Hepatitis A Vaccines Aged Out No long er eligible based on patient's age to complete this topic IPV Vaccines Aged Out No longer eligi ble based on patient's age to complete this topic MMR Vaccines Aged Out No longer eligi ble based on patient's age to complete this topic Meningococcal ACWY Vaccine Aged Out N o longer eligible based on patient's age to complete this topic Pneumococcal Vaccine: Pediat rics (0 to 5 Years) and At-Risk Patients (6 to 64 Years) Aged Out No longer eligible b ased on patient's age to complete this topic RSV Immunization Patients Un ann marie 20 months Aged Out No longer eligible b ased on patient's age to complete this topic Varicella Vaccines Aged Out No longer eligible based on patient's age to complete this topic Care Teams Coding Support Specialist Relationship Specialty Start Date End Date [facility] [address] [facility] [address] [place] [id number] PCP - General 05/20/24
--- OUTSIDE RECORDS SUMMARY | 2024-10-13 09:53 | XMS_ITS | Encounter Summary ---
Author Organization [employer] Address [address] [place] [address] Care Team Providers Care Oiling Machine Operator Name Role Phone [place] [facility] Primary Care Provider [phone] Reason for Visit * Reason Comments Med Refill Encounter Details Date Type Department Care Team ([facility] st Contact Info) Description 07/08/2024 Refill [facility] MEDICINE [address] [place], [place] [phone] [facility] [address] [place] [address] Mixed anxiety and depressive disorder Social History Tobacco Use Types Packs/Day Years Used Date Smoking Tobacco: Some Days Cigarettes Last attempted to quit: 08/22/2023 Passive Smoke Exposure: Current Smokeless Tobacco: Never Alcohol Use Standard Drinks/Week Comments Never 0 (1 standard drink = 0.6 oz pur e alcohol) Alcohol Answer Date Recorded Frequency of Alcohol Consumption Not on file 04/23/2024 Average Number of Drinks Not on file 024 Frequency of Binge Drinking Not on file 04/04 Score 0 04/23/2024 Depression Answer Date Recorded Patient Health Questionnaire-9 Score 18 04/23/2024 Patient Health Questionnaire-9 Score 18 04/23/2024 Last PHQ-9: Questionnaire Data Not on file 0 04/23/2024 Housing Stability Answer Date Recorded What is your housing situation today? I have tammy knight 04/23/[address] you li ve. Do you have problems with any of the following? None of the above 04/23/2024 Food Insecurity Answer Date Recorded Within the past 12 months, y ou worried that your food would run out before you got money to buy more: Sometimes True 2023 Within the past 12 months,th e food you bought just didn't last and you didn't have enough money to get more: Sometimes True 04/23/2024 Transportation Answer Date Recorded In the past 12 months, has l ack of transportation kept you from medical appts, meetings, work or from getting things needed for daily living? No 04/23/2024 Utilities Answer Date Recorded In the past 12 months, has t he electric, gas, oil or water company threatened to shut off services in your home? No 04/23/2024 Depression Answer Date Recorded Patient Health Questionnaire-2 Score 5 04/23/2024 Internet Access Answer Date Recorded Internet Access Q1 Yes 05/02/2024 Internet Access Q2 Not on file 05/02/2024 Sex and Gender Information Value Date Recorded Sex Assigned at Male 07/03/2022 10:29 AM EDT Legal Sex Male 10:29 AM EDT Gender Identity Choose not to disclose 10:29 AM EDT Sexual Orientation Choose not to disclose 2021 10:29 AM EDT documented as of this encounter Plan of Treatment Upcoming Encounters Date Type Department Care Team (Late st Contact Info) Description 10/22/2024 1:00 PM EST Office Visit [facility] ADULT DENTAL [address] [place] [address] Zachariah, Claudette [address] [place] [address] documented as of this encounter Goals Goal Patient Goal Type Associated Problems Recent Progress Patient-Stated? Author Patient will adhere to medication regimen General Mary Chauhan documented as of this encounter Visit Diagnoses Diagnosis Mixed anxiety and depressive disorder Dysthymic disorder documented in this encounter Additional Health Concerns Assessment Noted Time PHQ-9 Depression Total Score: 18 024 10:36 AM EDT documented as of this encounter Care Teams Oiling Machine Operator Relationship Specialty Start Date End Date Haily Robb FNP [address] [place] [address] PCP - General Family Medicine 05/01/22 documented as of this encounter
--- OUTSIDE RECORDS SUMMARY | 2024-10-13 09:53 | XMS_ITS | Encounter Summary ---
Author Organization [employer] Address [address] [place] [address] Care Team Providers Care Squash Centre Manager Name Role Phone [place] [facility] Primary Care Provider [phone] Reason for Visit * Reason Onset Date Comments Med Refill 09/11/2022 Encounter Details Date Type Department Care Team (Late st Contact Info) Description 09/11/2022 Telephone [facility] MEDICINE [address] [place] [address] [facility] [address] [place] [address] Med Refill Social History Tobacco Use Types Packs/Day Years Used Date Smoking Tobacco: Every Day Cigarettes Alcohol Use Standard Drinks/Week Comments Never 0 [...] not to disclose 2021 10:29 AM EDT COVID-19 Exposure Response Date Recorded In the last 10 days, have yo u been in contact with someone who was confirmed or suspected to have Coronavirus/COVID-19? No / Unsure 03/01/2023 1:20 PM EDT documented as of this encounter Miscellaneous Notes * Telephone Encounter - Roxana Sotelo LPN - 09/11/2022 10:32 AM EST Medication prescribed by Urology * Telephone Encounter - Navneet Ag - 09/11/2022 9:18 AM EST Tc from pt requesting a med refill on Testerone injection 200 mg, States they are due today. Please contact at [phone] documented in this encounter Plan of Treatment Upcoming Encounters Date Type Department Care Team (Late st Contact Info) Description 10/22/2024 1:00 PM EST Office Visit [facility] ADULT DENTAL [address] [place] [address] Claudette Soni [address] [place], [place] [phone] documented as of this encounter Goals Goal Patient Goal Type Associated Problems Recent Progress Patient-Stated? Author Patient will adhere to medication regimen General No Mary Moreland documented as of this encounter Visit Diagnoses Not on filedocumented in this encounter Care Teams Squash Centre Manager Relationship Specialty Start Date End Date Haily Robb FNP [address] [place] [address] PCP - General Family Medicine 05/01/22 documented as of this encounter
--- OUTSIDE RECORDS SUMMARY | 2024-10-13 09:53 | XMS_ITS | Encounter Summary ---
Author Organization [employer] Address [address] [place] [address] Care Team Providers Care Survey Research Manager Name Role Phone [place] [facility] Primary Care Provider [phone] Reason for Visit * Reason Onset Date Comments Durable Medical Equipment 07/14/2024 Encounter Details Date Type Department Care Team ([facility] st Contact Info) Description 07/14/2024 Telephone [facility] MEDICINE [address] [place] [address] [facility] [address] [place] [address] Durable Medical Equipment Social History Tobacco Use Types Packs/Day Years [...] AM EDT documented as of this encounter Miscellaneous Notes * Telephone Encounter - Navenet Ag - 07/15/2024 1:07 PM EST Tc from pt spouse returning call, they were advised script was sent to [email or web address] on 07/09/24 however pt went to [facility] and was advised they do not accept patient insurance and will need to be sent else where. Please contact at [phone] * Telephone Encounter - Navneet Ag - 07/14/2024 12:42 PM EST Tc from pt spouse requesting a script for crutches, states discussed with RN, designer writer does not see any recent request. Please contact at [phone] documented in this encounter Plan of Treatment Upcoming Encounters Date Type Department Care Team (Late st Contact Info) Description 10/22/2024 1:00 PM EST Office Visit [facility] ADULT DENTAL [address] [place], [place] [phone] Claudette Soni [address] [place] [address] documented as of this encounter Goals Goal Patient Goal Type Associated Problems Recent Progress Patient-Stated? Author Patient will adhere to medication regimen General No Mary Moreland documented as of this encounter Visit Diagnoses Not on filedocumented in this encounter Additional Health Concerns Assessment Noted Time PHQ-9 Depression Total Score: 18 024 10:36 AM EDT documented as of this encounter Care Teams Survey Research Manager Relationship Specialty Start Date End Date Haily Robb FNP [address] [place] [address] PCP - General Family Medicine 05/01/22 documented as of this encounter
--- OUTSIDE RECORDS SUMMARY | 2024-10-13 09:54 | XMS_ITS | Clinical Summary ---
Author Organization [employer] Address [address] [place] [address] Care Team Providers Care Principal Account Clerk Name Role Phone Haily Robb [facility] Primary Care Provider [phone] Allergies Active Allergy Reactions Criticality Noted Date Comments Shellfish-Derived Products 2 Seafood Medications * This document contains information received from the source organization and may not represent a complete record from that organization. methadone (Dolophine) 10 MG tablet Take 29 mg by mouth Once per day. Active testosterone cypionate (Depo-Testosteron e) 200 MG/ML injection Inject 0.5 mL into the shoulder, thigh, or buttocks once a week. Active Spacer/Aero-Holdi ng Chambers (Pro Comfort Spacer Adult) miscIndications:W heezing Use with albuterol inhaler 1 each 07/13/20 23 Active cholecalciferol (D3 Super Strength) 50 MCG (1999 UT) capsuleIndication s:Vitamin D deficiency TAKE 1 CAPSULE BY MOUTH EVERY DAY 90 capsule 3 11/28/19 24 Active BD Plastipak Syringe 3 ML misc USE DIRECTED 11/06/19 24 Active tamsulosin (Flomax) 0.4 MG 24 hr capsule Take 0.8 mg by mouth Once per day. 12/05/19 24 Active hydrOXYzine HCl (Atarax) 25 MG tabletIndications :Chronic pruritus TAKE 1 TABLET BY MOUTH EVERY 6 HOURS NEEDED FOR ANXIETY OR FOR ITCHING 120 tablet 02/29/20 24 Active Blood Pressure kit Check blood pressure daily 1 kit 03/31/20 24 Active docusate sodium (Colace) 100 MG capsuleIndication s:Gas pain Take 1 capsule (100 mg) by mouth 2 times daily. 180 capsule 04/14/20 24 Active Ventolin HFA 108 (90 Base) MCG/ACT inhalerIndication s:Wheezing INHALE 2 PUFFS BY MOUTH EVERY 4 HOURS NEEDED FOR WHEEZING OR SHORTNESS OF BREATH 18 g 11 04/28/20 24 Active omeprazole (PriLOSEC) [address] capsuleIndication s:Epigastric pain TAKE 1 CAPSULE BY MOUTH EVERY MORNING BEFORE BREAKFAST 90 capsule 1 05/02/20 24 Active meloxicam (Mobic) 7.5 MG tablet Take 1 tablet (7.5 mg) by mouth 2 times daily. 60 tablet 11 05/21/20 24 2024 Active cromolyn (Nasachrom) 5.2 MG/ACT nasal sprayIndications: Nasal congestion Administer 1 spray into each nostril 4 times daily. 26 mL 12 06/10/20 24 2024 Active loratadine (Claritin) 10 MG tabletIndications :Nasal congestion Take 1 tablet (10 mg) by mouth Once per day. 30 tablet 11 06/10/20 24 2024 Active gabapentin (Neurontin) 600 MG tabletIndications :Restless leg Take 1 tablet (600 mg) by mouth at bedtime. 30 tablet 11 06/20/20 24 2024 Active acetaminophen (Tylenol 8 Hour) 650 MG ER tablet TAKE 1 TABLET BY MOUTH EVERY 8 HOURS NEEDED FOR MILD PAIN DO NOT BREAK, CRUSH, DISSOLVE OR CHEW 60 tablet 1 06/27/20 Active fluticasone (Flonase) 50 MCG/ACT nasal sprayIndications: Nasal congestion Administer 2 sprays into each nostril Once per day. Shake gently. Before first use, prime pump. After use, clean tip and replace cap.INSTILL 2 SPRAYS IN EACH NOSTRIL ONCE DAILY 48 g 3 08/08/20 24 Active alfuzosin ER (Uroxatral) 10 MG 24 hr tablet Take 1 tablet by mouth at bedtime. 06/05/20 Active ARIPiprazole (Abilify) 10 MG tablet Take 1 tablet by mouth at bedtime. 06/10/20 Active Restasis 0.05 % ophthalmic emulsion Administer 1 drop into both eyes 2 times daily. 07/23/20 Active Lotemax 0.5 % gel INSTILL 1 DROP INTO RIGHT EYE 4 TIMES A DAY 05/19/20 24 Active BD Hypodermic Needle 18G X 1 misc USE DIRECTED 03/13/20 24 Active rosuvastatin (Crestor) 10 MG tabletIndications :Mixed hyperlipidemia TAKE 1 TABLET BY MOUTH EVERY MORNING 90 tablet 3 08/18/20 24 Active furosemide (Lasix) 20 MG tabletIndications :Bilateral lower extremity edema Take 2 tablets (40 mg) by mouth Once per day. 60 tablet 2 09/24/19 25 2025 Active melatonin 5 MG tabletIndications :Mixed anxiety and depressive disorder TAKE 1 TO 2 TABLETS BY MOUTH AT BEDTIME NEEDED 60 tablet 2 10/01/19 25 Active amitriptyline (Elavil) 10 MG tabletIndications :Polyneuropathy Take 0.5 tablets (5 mg) by mouth at bedtime. 15 tablet 11 10/10/19 25 2025 Active diazePAM (Valium) 5 MG tabletIndications :Anxiety due to invasive procedure Take 1 tablet by oral route 30 minutes before procedure 2 tablet 10/10/19 25 Active cyclobenzaprine (Flexeril) 5 MG tabletIndications :Muscle spasm Take 1 tablet (5 mg) by mouth at bedtime. 15 tablet 01/18/20 24 2024 Discontinued melatonin 5 MG tabletIndications :Mixed anxiety and depressive disorder TAKE 1 TO 2 TABLETS BY MOUTH AT BEDTIME NEEDED 60 tablet 2 05/09/20 24 2024 Discontinued furosemide (Lasix) 20 MG tabletIndications :Bilateral lower extremity edema Take 1 tablet (20 mg) by mouth Once per day. 30 tablet 1 08/08/20 24 2024 Discontinued Active Problems Problem Noted Date Diagnosed Date Urinary retention 09/01/2024 Assessment & Plan (09/06/2024 5:12 PM EST): Resolved, in care with urology, good uop Bilateral lower extremity edema 09/01/2024 Assessment & Plan (09/06/2024 5:12 PM EST): Dependent edema, pt repots compliance with diuretics, no constitutional symptoms, good uop Compression stockings ordered Pain in both lower extremities 06/30/2024 Assessment & Plan (06/30/2024 12:32 PM EDT): It seems to be related to lumbar radiculopathy, ro methadone withdrawal? Lumbar radiculopathy 06/30/2024 Assessment & Plan (06/30/2024 12:31 PM EDT): It seem s to have underlying disc disease, probably radiculopathy, that could've been exacerbated sp methadone taper. He will start gabapentin 600 mg bid (recently increased by PCP), he will take it along tylenol 650 mg bid and fu with PCP Advised to come to acupuncture clinic Refer to PT, fu with PCP in , may need pain clinic referral if sxs do not resolve. ?Excaerbated by nmethadone taper? PT FU w PCP in Shortness of breath 06/10/2024 Assessment & Plan (06/10/2024 1:49 PM EDT): Likely due to moderate congestion. -No evidence of heart failure or untreated NEIDA, JVP flat, lungs clear. -Will treat with nasal spray and antihistamine. -ER precautions given. Nasal congestion 06/10/2024 Assessment & Plan (06/10/2024 1:48 PM EDT): Moderate nasal congestion. -prescribed nasal spray and loratadine. -ER precautions given. Epigastric pain 11/20/2023 Assessment & Plan (11/20/2023 1:42 PM EDT): I advise patient to avoid NSAIDs, spicy and acid food, I advise to eat at the same time every day, I advise to elevate the head of the bed and take medications as prescribe I increase omeprazole to 40mg daily I increase simethicone to 180mg with meals F/u with PCP and GI Dental calculus 06/25/2023 Generalized gingival recession, moderate 023 Partial edentulism 06/25/2023 Chronic pruritus 06/15/2023 Overview (06/15/2023): ? ? Pt with hx of widespread itching with unknown etiology x 5 months. Previous trial of ketoconzole shampoo for possible tinea versicolor without sx improvement. ? ? Derm team eval 02/2023-ddx include possible med SE, stress, diet, anxiety. Trial of gabapentin 300mg t.I.d with Initial mild improvement but today states sx persist. ? ? Referred to neurology 03/2023 ? ? Today describes daily sensation of ants on body and burning/itching that spreads from the neck down and lasts several minutes. Episodes occur randomly. No associated numbness or weakness. Intense pruritus-no improvement with hydroxyzine, benadryl or cetirizine. ? ? Pt self discontinued statin due to concern for possible drug s/e with no change in sx ? ? B12, syphilis screen, HIV, BMP WNL 03/2023 ? ? Established with therapy and psychiatry at [facility] ? ? No rash, fever, chills, lymphadenopathy Odynophagia 06/14/2023 Assessment & Plan (06/14/2023 1:54 PM EDT): Pt with > 30 yrs of heavy smoking, now presenting with 1 month of odynophagia and dysphagia associated with left sided neck pain. Etiology ? GERD VS Pharyngeal/esophageal Pathology On exam throat is clear, there is tenderness and prominence of sternocleidomastoid muscle but no palpable mass Plan: Barium Swallow, CT of soft tissues of neck given his heavy smoking Hx. ENT consult for laryngoscopy Moderate somatic symptom disorder 05/31/2023 Assessment & Plan (05/31/2023 10:59 AM EDT): Progress Note: John is a 53 yr old , cismale with previous hx of severe opioid use disorder (currently in sustained remission) (pt in methadone tx as part of recovery pathway), self reported depression and anxiety (also documented in medical records and being prescribed medication for anxiety sxs) that comes referred from [facility] for exacerbated anxiety in presence of increased tingling/crawling sensation on skin which has no current medical explanation. John reports that 3 months ago after changes to his methadone and gabapentin medication he started experiencing a sensation of ants crawling on his skin and as time went on the sensation went from tingling to a burning sensation. He reports that it comes on suddenly with no apparent triggers. John indicates that the events have significantly impacted his day to day life and he experiences constant worried, hopelessness, helplessness, anhedonia, frustration, irritability, anger, restlessness, difficulty sleeping, isolation and depressed mood as a result of experiencing the itching/burning episodes. John reports that prior to these episodes his anxiety had been in remission and he had been enjoying his day to day life. He indicates having a good support system through his family, taoism and recovery network, as well as having support from his psych med provider and counselor. During intervention I provided supportive therapy though active listening and validation of current experience. I provided psychoeducation around anxiety, brain functions in behavioral and emotional experience and reviewed with patient past and current MH history and psych med history that could impact current sxs presentation. I met with medical provider overseeing John's case and we discussed potential referrals to neurologist to explore potential nerve damage due to continuous churn buttermaker use of anxiolytics, even though John is on low dose medication. At this time is unclear if crawling/burning sensation on skin is solely due to medical and/or somatic presentation. However, sxs are causing significant psychological distress in patient. John was given information on how to reach out to [facility] team and [facility] numbers for crisis. He was also encouraged to bring current event to team to discuss further coping skills to support wellbeing. Patient was agreeable Opioid dependence in remission 05/31/2023 Scrotal pain 02/04/2023 Overview (02/04/2023): ? ? saw urology for scrotal pain. PE and u/s negative other than small hydrocele. No fruther eval needed. Tyleno ibu for pain Hypogonadism in male 11/02/2022 Overview (11/02/2022): ?? [place] [facility] [place] Lux ?? subcutaneous testosterone injection Neck pain on left side 09/15/2022 Assessment & Plan (11/30/2023 12:08 AM EDT): - Referral to physical therapy placed for further management Assessment & Plan (06/14/2023 1:58 PM EDT): Pt with > 30 yrs of heavy smoking, now presenting with 1 month of odynophagia and dysphagia associated with left sided neck pain. In the absence of any injury. Etiology ? GERD VS Pharyngeal/esophageal Pathology On exam throat is clear, there is tenderness and prominence of sternocleidomastoid muscle but no palpable mass Plan: PPI, Tylenol PRN, Barium Swallow, CT of soft tissues of neck given his heavy smoking Hx. ENT consult for laryngoscopy Helicobacter pylori gastritis 08/03/2022 Hyperlipidemia 08/03/2022 Overview (02/04/2023): ?? Rosuvastatin 10mg daily ?? ASCVD 6.7% 11/2022 Renal cyst, left 08/03/2022 Vitamin D deficiency 08/03/2022 Tobacco use 08/03/2022 Overview (04/25/2024): Quit 2023 Assessment & Plan (08/06/2022 3:07 PM EST): -Currently smoking approx 3-4 cigg/day, with goal smoking cessation -Discussed various pharamcotherapy options, pt interested in lowest dose of patches and gum. Sent to pharmacy Submandibular lymphadenopathy 03/31/2022 Overview (07/04/2023): ?? Followed by ENT ?? Seen 10/19/2022-plan for neck CTL ?? Left neck ultrasound from 12/07/2021. Normal bilateral carotid artery ultrasound 12/2021 ?? 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 Advised to hold off on further taper due to leg pain and recurrent diarrhea, discuss with methadone provider and fu with PCP. Mixed anxiety and depressive disorder 02/22/2017 Overview (08/05/2023): ? ? Followed by Jerod Howard ? ? Clonazepam PRN ? ? Clonidine PRN Assessment & Plan (11/06/2022 5:05 AM EST): Spoke with [facility] pharmacy-the blue conazepam tablets that patient prefer are from a different juice mixer and are on back order. ?? Pt will follow up with new psychiatrist as scheduled. Verbalizes understanding that I am only providing refills until this new appt ?? Denies current SI or thoughts of self harm ?? Contact [facility] if sx worsen or do not improve with tx. Resolved Problems Problem Noted Date Diagnosed Date Resolved Date Gas pain 09/15/2022 11/02/2022 Left flank pain 08/03/2022 11/02/2022 Dermatitis 08/03/2022 11/02/2022 Lower urinary tract symptoms 02/22/2017 11/02/2022 Encounters Date Type Department Care Team Description 10/10/2024 1:15 PM EST Office Visit [facility] [address] [place] [phone] Haily Robb FNP Chronic pain of both knees (Primary Dx); Polyneuropathy; Anxiety due to invasive procedure 10/10/2024 Travel 10/01/2024 Refill [facility] [address] [place] [phone] Haily Robb FNP Mixed anxiety and depressive disorder 09/24/2024 2:40 PM EST Office Visit [facility] [address] [place] [phone] Pepper Balderrama MD Bilateral lower extremity edema (Primary Dx) 09/16/2024 Telephone [facility] [address] [place] [phone] Haily Robb FNP Durable Medical Equipment (Compression stockings) 09/12/2024 Telephone [facility] [address] [place] [address] [phone] Haily Robb FNP 09/02/2024 Telephone [facility] [address] [place] [phone] Haily Robb FNP Durable Medical Equipment (Compression stockings) 09/01/2024 1:15 PM EST Office [address] [place] [address] Hoa Dueñas NP Urinary retention (Primary Dx); Bilateral lower extremity edema 08/29/[address] [phone] Leticia Rashid MA Chart Prep 08/28/[address] [address] Haily Robb FNP Mixed anxiety and depressive disorder 08/19/[address] [phone] Willow Mckeon, RN Results 08/18/2024 Orders Only [facility] [address] [address] Haily Robb FNP Proteinuria, unspecified type (Primary Dx) 08/17/[address] [address] Haily Robb FNP Mixed hyperlipidemia 08/15/[address] [address] Haily Robb FNP No Show (Patient no show HDF ) 08/15/[address] [address] Haily Robb FNP Appointment Request 08/14/2024 11:00 AM EST Office Visit [facility] [address] [place] [phone] Rakan Mares MD Bilateral lower extremity edema (Primary Dx); JODY (generalized anxiety disorder) 08/14/2024 Orders Only [address] [address] Haily Robb FNP 08/14/[address] [address] Willow Mckeon, RN Care Coordination 08/08/2024 1:00 PM EST Office Visit [facility] [address] [place] [phone] [place] [facility] Bilateral lower extremity edema (Primary Dx); Proteinuria, unspecified type; Nasal congestion 08/08/2024 Telephone [facility] [address] [place] [address] Griselda Bonner RN EMR search Hx 08/05/[address] [address] Piyush Green MA Chart Prep 08/04/[address] [address] [place] [facility] Referral 08/02/2024 Orders Only GENERIC EXTERNAL DATA DEPARTMENT Provider, Generic External Data 07/30/[address] [address] Haily Robb [facility] Hospital Follow-up 07/29/[address] [address] ClarisseHaily molina [facility] 07/28/2024 Refill [facility] [address] [place] [address] [place] [facility] 07/25/2024 Orders Only GENERIC EXTERNAL DATA DEPARTMENT Provider, Generic External Data 07/25/[address] [address] Haily Robb [facility] callback requested 07/24/2024 Orders Only GENERIC EXTERNAL DATA DEPARTMENT Provider, Generic External Data 07/21/2024 11:30 AM EST Office Visit [address] [address] Haily Robb [facility] Dizziness (Primary Dx); Bradykinesia; Shortness of breath; Interstitial lung disease (CMS/HCC); Mixed anxiety and depressive disorder; Lumbar radiculopathy; Blepharospasm 07/21/2024 Travel 07/17/[address] [address] Treva Weller RN 07/15/[address] [address] Haily Robb FNP Nurse Triage 07/14/2024 Telephone [facility] [address] [place] [address] [place] FNP Durable Medical Equipment from Last 3 Months Immunizations Name Administration Dates Next Due HepB-CpG 11/16/2022 Moderna Covid-19 Vaccine 12+ 08/16/2021,01/08/20 21,12/10/2020 Pfizer Covid-19 Vaccine 12+ 04/27/2022 Pfizer Covid-19 Vaccine 12+ angela-sucrose (Freeman Cap) 04/27/2022 Zoster, Recombinant 11/16/2022 Family History Medical History Relation Name Comments Diabetes Mother Heart disease Mother diabetic retinopathy, cataract Mother Colon cancer Neg Hx Prostate cancer Neg Hx Relation Name Status Comments Mother Social History Tobacco Use Types Packs/Day Years Used Date Smoking Tobacco: Some Days Cigarettes Last attempted to quit: 08/22/2023 Passive Smoke Exposure: Current Smokeless Tobacco: Never Tobacco Cessation:Ready to Q uit: Not Asked; Counseling Given: Not Answered Alcohol Use Standard Drinks/Week Comments Never 0 (1 standard drink = 0.6 oz pur e alcohol) Alcohol Answer Date Recorded Frequency of Alcohol Consumption Not on file 04/23/2024 Average Number of Drinks Not on file 024 Frequency of Binge Drinking Not on file 04/04 Score 0 04/23/2024 Depression Answer Date Recorded Patient Health Questionnaire-9 Score 0 10/10/2024 Patient Health Questionnaire-9 Score 0 10/10/2024 Last PHQ-9: Questionnaire Data Not on file 0 10/10/2024 Housing Stability Answer Date Recorded What is [...] Answer Date Recorded Patient Health Questionnaire-2 Score 0 10/10/2024 Internet Access Answer Date Recorded Internet Access Q1 Yes 05/02/2024 Internet Access Q2 Not on file 05/02/2024 Sex and Gender Information Value Date Recorded Sex Assigned at Male 07/03/2022 10:29 AM EDT Legal Sex Male 10:29 AM EDT Gender Identity Choose not to disclose 10:29 AM EDT Sexual Orientation Choose not to disclose 2021 10:29 AM EDT Last Filed Vital Signs Vital Sign Reading Time Taken Comments Blood Pressure 123/73 10/10/2024 1:22 PM EST Pulse 78 10/10/2024 1:22 PM EST Temperature 36.7 ??C (98 ??F) 10/10/2024 1:22 PM EST Respiratory Rate 20 10/10/2024 1:22 PM EST Oxygen Saturation 99% 09/24/2024 2:15 PM EST Inhaled Oxygen Concentration - - Weight 65.8 kg (145 lb) 10/10/2024 1:22 PM EST Height 167.6 cm (5' 6 ) 10/10/2024 1:22 PM EST Body Mass Index 23.4 10/10/2024 1:22 PM EST Plan of Treatment Upcoming Encounters Date Type Department Care Team (Late st Contact Info) Description 10/22/2024 1:00 PM EST Office Visit [facility] [address] [place] [address] Zachariah, Claudette [address] [place] [address] Health Maintenance Due Date Last Done Comments CT Colonography 1968 Colonoscopy 1968 Colorectal Cancer Screening 1968 FIT DNA/Cologuard 1968 FIT 1968 FOBT 1968 Sigmoidoscopy 1968 DTaP/Tdap/Td Vaccines (1 - Tdap) 1987 Pneumococcal Vaccine: 50+ Years (1 of 2 - PCV) 1987 Hepatitis B Vaccines (2 of 2 - CpG 2-dose series) 12/14/2022 11/16/2022 Zoster Vaccines (2 of 2) 01/11/2023 11/16/2022 Dental Oral Exam 12/26/2023 06/25/2023, 06/01/2022 COVID-19 Vaccine ( season) 2024 04/27/2022, 04/27/2022, 08/16/2021, Additional history exists Influenza Vaccine (#1) 2024 Dental X-Ray: Bitewings 06/26/2024 06/25/2023 Dental Prophylaxis 10/19/2024 04/17/2024, 1 , 06/01/2022 Alcohol/Substance Use Screening 04/23/2025 04/23/2024 SDOH Screening 04/23/2025 04/23/2024 Diabetes: Hemoglobin A1C 06/20/2025 024, 03/19/2024, 03/22/2023, Additional history exists Depression Screening 10/10/2025 10/10/2024, 10/10/19 Tobacco Screening 10/10/2025 10/10/2024 Dental X-Ray: Full Mouth 09/12/2026 09/11/2023, 06/04 Lipid Panel 03/19/2029 03/19/2024, 02/02, 11/06/2022, Additional history exists RSV Patients and Patients Aged 60 years or older (1 - 1-dose 75+ series) 2043 HIV Screening Completed 03/22/2023, 03/0 02/2023, 05/05/2021, Additional history exists Hepatitis C Screening Completed 03/22/2023 , 11/06/2022, 05/05/2021, Additional history exists HIB Vaccines Aged Out No longer eligi [...] patient's age to complete this topic Meningococcal Vaccine Aged Out No mateusz amara eligible based on patient's age to complete this topic RSV under 20 months Aged Out No longe r eligible based on patient's age to complete this topic Rotavirus Vaccines Aged Out No longer eligible based on patient's age to complete this topic Goals Goal Patient Goal Type Associated Problems Recent Progress Patient-Stated? Author Patient will adhere to medication regimen General Mary Chauhan Procedures Procedure Name Priority Date/Time Associated Diagnosis Comments XR KNEE 4+ VIEWS RIGHT Routine 2:37 PM EST Chronic pain of both knees XR KNEE 4+ VIEWS LEFT Routine 10/10/2024 2:37 PM EST Chronic pain of both knees COMPREHENSIVE METABOLIC PANEL Routine 08/14/2024 12:07 PM EST Bilateral lower extremity edema URINALYSIS, COMPLETE, WITH REFLEX TO CULTURE Routine 08/14/2024 12:07 PM EST Proteinuria, unspecified type PROTEIN CREATININE RATIO, URINE Routine 08/14/2024 12:07 PM EST Proteinuria, unspecified type CULTURE, URINE, ROUTINE Routine 08/14/2024 12:00 AM EST [facility] US LOWER EXTREMITY VENOUS DUPLEX BILATERAL Routine 08/02/2024 8:28 PM EST DRUG MONITOR, PANEL 1, SCREEN, URINE Routine 08/02/2024 8:03 PM EST XR KUB AND UPRIGHT 2 VIEWS Routine 08/02/2024 7:24 PM EST B TYPE NATRIURETIC PEPTIDE (BNP) Routine 08/02/2024 6:57 PM EST COMPREHENSIVE METABOLIC PANEL Routine 08/02/2024 6:57 PM EST URINALYSIS, COMPLETE, WITH REFLEX TO CULTURE Routine 08/02/2024 6:57 PM EST CBC WITH AUTO DIFFERENTIAL Routine 08/02/2024 6:57 PM EST CULTURE, URINE, ROUTINE Routine 08/02/2024 6:57 PM EST VENOUS BLOOD GAS Routine 07/25/2024 9:56 PM EST AMMONIA (P) Routine 07/25/2024 9:52 PM EST LIPASE Routine 07/25/2024 9:52 PM EST MAGNESIUM Routine 07/25/2024 9:52 PM EST BASIC METABOLIC PANEL Routine 07/25/2024 9:52 PM EST HEPATIC FUNCTION PANEL Routine 9:52 PM EST CBC WITH AUTO DIFFERENTIAL Routine 07/25/2024 9:52 PM EST SARS COV2/INFLUENZA A/B AND RSV RNA QL NAAT Routine 07/25/2024 9:00 PM EST MAGNESIUM Routine 07/24/2024 2:44 PM EST COMPREHENSIVE METABOLIC PANEL Routine 07/24/2024 2:44 PM EST HIGH SENSITIVITY TROPONIN I Routine 07/24/2024 2:44 PM EST B TYPE NATRIURETIC PEPTIDE (BNP) Routine 07/24/2024 2:44 PM EST CBC WITH AUTO DIFFERENTIAL Routine 07/24/2024 2:44 PM EST APTT Routine 07/24/2024 2:43 PM EST PROTHROMBIN TIME-INR Routine 07/24/2024 2:43 PM EST XR CHEST 1 VIEW Routine 07/24/2024 1:42 PM EST XR LUMBAR SPINE 2-3 VIEWS Routine 07/24/2024 1:42 PM EST HEMOGLOBIN A1C Routine 06/20/2024 3:05 PM EDT Dizziness Full PROPHYLAXIS - ADULT Routine 04/17/2024 2:00 PM EDT LIPID PANEL, STANDARD Routine 03/19/2024 9:34 AM EDT Episode of shaking PANORAMIC RADIOGRAPHIC IMAGE Routine 09/11/2023 1:00 PM EST DIAGNOSTIC - DIAGNOSTIC IMAGING - INTRAORAL - COMPREHENSIVE SERIES OF RADIOGRAPHIC IMAGES Routine 06/25/2023 3:00 PM EDT Dental calculus Generalized gingival recession, moderate Missing teeth, acquired PERIODIC ORAL EVALUATION - ESTABLISHED PATIENT Routine 06/25/2023 3:00 PM EDT HEPATITIS C VIRAL RNA, QUANTITATIVE, REAL-TIME PCR Routine 03/22/2023 11:53 AM EDT Genital lesion, male HIV 1 RNA, QUANTITATIVE REAL TIME PCR Routine 03/22/2023 11:53 AM EDT Genital lesion, male from Last 3 Months or Most Recently Relevant to Health Maintenance Results * XR Knee 4+ Views Right (10/10/2024 2:37 PM EST) Anatomical Region Laterality Modality Lower Extremities, Knee Right Radiogra phic Imaging 10/10/2024 2:37 PM EST Narrative 10/10/2024 3:12 PM EST ? [facility] ?[address] ?[place] [address] ?XRay Report ? Signed ? Patient: Jr Ro,Jean ?MR#: ?? [id number] ? : 1970 ?Acct:[id number] ? Age/Sex: 54 / M ?ADM Date: 02/07/25 ? Loc: HO.CARD ? Attending Dr: Pepper Balderrama MD ? Ordering Physician: Haily Robb ?? Date of Service: 10/10/24 ?? Procedure(s): XR knee RT 4V ?? Accession Number(s): [id number] ? cc: Haily Robb ? EXAMINATION: ?? XR KNEE, RIGHT ? CLINICAL INFORMATION: ?? chronic knee pain ? COMPARISON: ?? None available. ? TECHNIQUE: ?? Four views of the right knee. ? FINDINGS: ?? No acute fracture or dislocation. No lytic or blastic lesions. No ?? suprapatellar bursa joint effusion. Preservation of the joint spaces. ? XR/XR knee RT 4V ?? IMPRESSION: ?? Normal right knee. ? Electronically signed by: ??Darryl Zaidi MD ??10/10/2024 03:09 PM ?? EST RP ? Dictated By: ?Darryl Rey MD ? Signed By: ?<Electronically signed by Darryl Lynn MD in OV> ? 10/10/24 1509 ? DD/ 1437 ? TD/TT: 10/10/24 1502 ? Metal Window Screen Assembler: ? Procedure Note Marilyn, Image - 10/10/[address] [address] XRay Report Signed Patient: John Fitzpatrick AMR#: [id number] : 1970Acct:[id number] Age/Sex: 54 / MADM Date: 10/10/24 Loc: YOGESH Attending Dr: Pepper Balderrama MD Ordering Physician: Haily Robb Date of Service: 10/10/24 Procedure(s): XR knee RT 4V Accession Number(s): [id number] cc: Haily Robb [facility] EXAMINATION: XR KNEE, RIGHT CLINICAL INFORMATION: chronic knee pain COMPARISON: None available. TECHNIQUE: Four views of the right knee. FINDINGS: No acute fracture or dislocation. No lytic or blastic lesions. No suprapatellar bursa joint effusion. Preservation of the joint spaces. XR/XR knee RT 4V IMPRESSION: Normal right knee. Electronically signed by: Darryl Zaidi MD 10/10/2024 03:09 PM EST RP Dictated By: Darryl Rey MD Signed By: <Electronically signed by Darryl Lynn MDin OV> 10/10/24 1509 DD/ 1437 TD/TT: 10/10/24 1502 Metal Window Screen Assembler: [facility] GEOLOGICAL SPECIALIST IMG XR PROCEDURES Final Resul t * XR Knee 4+ Views Left (10/10/2024 2:37 PM EST) Anatomical Region Laterality Modality Lower Extremities, Knee Left Radiogra phic Imaging 10/10/2024 2:37 PM EST Narrative 10/10/2024 3:12 PM EST ? [facility] ?[address] ?[place] [address] ?XRay Report ? Signed ? Patient: John Fitzpatrick ?MR#: ?? [id number] ? : 1970 ?Acct:[id number] ? Age/Sex: 54 / M ?ADM Date: 10/10/24 ? Loc: HO.CARD ? Attending Dr: Pepper Balderrama MD ? Ordering Physician: Haily Robb ?? Date of Service: 10/10/24 ?? Procedure(s): XR knee LT 4V ?? Accession Number(s): [id number] ? cc: Haily Robb ? EXAMINATION: ?? XR KNEE, LEFT ? CLINICAL INFORMATION: ?? chronic knee pain ? COMPARISON: ?? None available. ? TECHNIQUE: ?? Four views of the left knee. ? FINDINGS: ?? There is mild Joint space narrowing involving the medial compartment. ?? No acute fracture or dislocation. No suprapatellar bursa joint ?? effusion. No lytic or blastic lesions. No metallic or radiopaque ?? foreign body. ? XR/XR knee LT 4V ?? IMPRESSION: ?? Mild medial compartment osteoarthrosis. ? Electronically signed by: ??Darryl Zaidi MD ??10/10/2024 03:10 PM ?? EST RP ? Dictated By: ?Darryl Rey MD ? Signed By: ?<Electronically signed by Darryl Lynn MD in OV> ? 10/10/24 1510 ? DD/ 1437 ? TD/TT: 10/10/24 1502 ? Metal Window Screen Assembler: ? Procedure Note Marilyn, Image - 02/07/[address] [address] XRay Report Signed Patient: John Fitzpatrick [facility]#: [id number] : 1970Acct:[id number] Age/Sex: 54 / MADM Date: 10/10/24 Loc: .CARD Attending Dr: Pepper Balderrama MD [facility] Date of Service: 10/10/24 Procedure(s): XR knee LT 4V Accession Number(s): [id number] cc: [facility] EXAMINATION: XR KNEE, LEFT CLINICAL INFORMATION: chronic knee pain COMPARISON: None available. TECHNIQUE: Four views of the left knee. FINDINGS: There is mild Joint space narrowing involving the medial compartment. No acute fracture or dislocation. No suprapatellar bursa joint effusion. No lytic or blastic lesions. No metallic or radiopaque foreign body. XR/XR knee LT 4V IMPRESSION: Mild medial compartment osteoarthrosis. Electronically signed by: Darryl Zaidi MD 10/10/2024 03:10 PM EST Dictated By: Darryl Rey MD Signed By: <Electronically signed by Darryl Lynn MDin OV> 10/10/24 1510 DD/ 1437 TD/TT: 10/10/24 1502 Metal Window Screen Assembler: [facility] IMG XR PROCEDURES Final Resul t * (ABNORMAL) Protein Creatinine Ratio, Urine (08/14/2024 12:07 PM EST) Creatinine, Urine 175.97 mg/dL [facility] Protein, Total, Random Urine 41(H) <12 mg/dL [facility] Protein/Creati nine Ratio, Ur 0.23(H) <0.2 [facility] Comment:The spot urine prote in:creatinine ratio may increase to 0.3during normal . 08/14/2024 12:0 7 PM EST 08/14/2024 1:13 PM EST [facility] LAB URINE ORDERABLES Final Re sult Performing Organization Address City/[facility]/ZIP Co de Phone Number [facility] [address] [place] [address] [phone] * (ABNORMAL) Urinalysis, Complete, with Reflex to Culture (08/14/2024 12:07 PM EST) Only the most recent of2 resultswithin the time period is included. Color Urine Yellow [facility] Appearance Urine Cloudy [facility] PH 6.0 5.0 - 9.0 [facility] Glucose Urine UA Negative Negative mg/dL [facility] Urine Blood Negative Negative [facility] Specific [place] - Urine 1.020 1.005 - 1.025 [facility] Urine Protein 30 (1+)(A) Neg-Trace mg/dL [facility] Urine Ketones Trace Negative mg/dL [facility] Nitrite Urine Negative Negative [facility] Leukocyte Esterase Urine Trace(A) Negative [facility] RBC Urine 0-2 0 - 2 /HPF [facility] Urine WBC 6-10(A) 0 - 5 /HPF [facility] Urine Squamous Epithelial Cell 0-2 0 - 2 /HPF [facility] Urine Bacteria None Seen None Seen [facility] Hyaline Casts, Urine 0-2 0 - 2 /LPF [facility] Urine 08/14/2024 12:0 7 PM EST 08/14/2024 1:13 PM EST Narrative [facility] - 08/14/2024 2:00 PM EST Urine, Clean Catch [facility] LAB URINE ORDERABLES Final Re sult Performing Organization Address [facility]/ZIP Co de Phone Number [facility] [address] [place] [address] [phone] * (ABNORMAL) Comprehensive Metabolic Panel (08/14/2024 12:07 PM EST) Only the most recent of3 resultswithin the time period is included. Sodium 141 135 - 145 mmol/L [facility] Potassium 3.8 3.3 - 5.1 mmol/L [facility] Chloride 101 96 - 108 mmol/L [facility] Carbon Dioxide 30(H) 22 - 29 mmol/L [facility] Anion Gap 14 12 - 20 [facility] Urea Nitrogen (BUN) 13 9 - 16 mg/dL [facility] Creatinine, Serum 0.95 0.5 - 1.4 mg/dL [facility] Estimated Glomerular Filt Rate >60 [facility] Comment:Chronic Kidney Disea se: Estimated GFR < 60 mL/min/1.12d9Xhycde Kidney Disease: Estimated GFR < 15 mL/min/1.73m2 Glucose 118(H) 60 - 115 mg/dL [facility] Calcium 10.1 8.4 - 10.2 mg/dL [facility] Bilirubin, Total 1.0 0.0 - 1.0 mg/dL [facility] Aspartate Amino Transferase 42(H) 5 - 37 U/L [facility] Alanine Aminotransferase 42(H) 0 - 40 U/L [facility] Total Protein 8.1(H) 6.5 - 8.0 g/dL [facility] Albumin Level 4.8 3.5 - 5.0 g/dL [facility] Alkaline Phosphatase 56 39 - 117 U/L [facility] Blood Venous blood specimen / Unknown 08/14/2024 12:07 PM EST 08/14/2024 1:13 PM EST [facility] GEOLOGICAL SPECIALIST LAB BLOOD ORDERABLES Final Re sult [facility] [address] [place] [phone] * Culture, Urine, Routine (08/14/2024 12:00 AM EST) Only the most recent of2 resultswithin the time period is included. Urine Urine specimen obtained by clean catch procedure / Unknown 08/14/2024 08/14/2024 Comment:UACC Narrative [facility] - 08/15/2024 11:40 AM EST Urine Culture No growth. Specimen Source: Urine clean catch [facility] LAB MICROBIOLOGY - GENERAL OR DERABLES Final Result [facility] [address] [place] [address] [phone] * VASC Lower Extremity Venous Duplex Bilateral (08/02/2024 8:28 PM EST) 08/02/2024 8:28 PM EST Narrative [facility] - 08/02/2024 9:36 PM EST ? [facility] ?[address] ?[place] [address] ? Ultrasound Report ? Signed ? Patient: John Fitzpatrick ?MR#: ?? [id number] ? : 1970 ?Acct:[id number] ? Age/Sex: 54 / M ?ADM Date: 08/02/24 ? Loc: HO.ED ? Attending Dr: ? Ordering Physician: Janes Busby ?? Date of Service: 08/02/24 ?? Procedure(s): US venous duplex LE BI ?? Accession Number(s): [id number] ? cc: Janes Busby; Haily Robb ? EXAMINATION: ?? US TRIPLEX LOWER EXTREMITY, BILATERAL ? CLINICAL INFORMATION: ?? Bilateral lower extremity swelling and pain. ? COMPARISON: ?? None available. ? TECHNIQUE: ?? Color-flow triplex imaging with spectral analysis and compression ?? Doppler were performed on the bilateral lower extremities. ? FINDINGS: ?? Respiratory variation, normal compression and augmented flow are noted ?? throughout the bilateral lower extremities. The visualized common ?? femoral vein, femoral vein, profunda femoral vein, popliteal vein and ?? midcalf peroneal and posterior tibial venous segments show no evidence ?? of deep venous thrombosis bilaterally. 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 ? There is no Wolfe's cyst. Bilateral inguinal region elongated however ?? otherwise sonographically normal-appearing lymph nodes are noted, on ?? the right measuring 2.0 x 0.7 x 2.4 cm and on the left measuring 2.4 x ?? 0.6 x 1.9 cm. ? / venous duplex LE BI ?? IMPRESSION: ?? No evidence of deep venous thrombosis involving the bilateral lower ?? extremities. ? Electronically signed by: ??Marcial Ramirez MD ??08/02/2024 09:34 PM EST RP ? Dictated By: ?Marcial Ramirez MD ? Signed By: ?<Electronically signed by Marcial Ramirez MD in OV> ? 08/02/244 ? DD/ 27 ? TD/TT: 08/02/242040 ? Metal Window Screen Assembler: AP ? Procedure Note Marilyn, Image - 08/02/2024 [place] [address] Ultrasound Report Signed Patient: John Fitzpatrick [facility]#: [id number] : 1970Acct:[id number] Age/Sex: 54 / MADM Date: 08/02/24 Loc: HO.ED Attending Dr: Ordering Physician: Janes Busby Date of Service: 08/02/24 Procedure(s): US venous duplex LE BI Accession Number(s): [id number] cc: Janes Busby; [facility] EXAMINATION: US TRIPLEX LOWER EXTREMITY, BILATERAL CLINICAL INFORMATION: Bilateral lower extremity swelling and pain. COMPARISON: None available. TECHNIQUE: Color-flow triplex imaging with spectral analysis and compression Doppler were performed on the bilateral lower extremities. FINDINGS: Respiratory variation, normal compression and augmented flow are noted throughout the bilateral lower extremities. The visualized common femoral vein, femoral vein, profunda femoral vein, popliteal vein and midcalf peroneal and posterior tibial venous segments show no evidence of deep venous thrombosis bilaterally. 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 There is no Wolfe's cyst. Bilateral inguinal region elongated however otherwise sonographically normal-appearing lymph nodes are noted, on the right measuring 2.0 x 0.7 x 2.4 cm and on the left measuring 2.4 x 0.6 x 1.9 cm. US/US venous duplex LE BI IMPRESSION: No evidence of deep venous thrombosis involving the bilateral lower extremities. Electronically signed by: Marcial Ramirez MD 08/02/2024 09:34 PM EST RP Dictated By: Marcial Ramirez MD Signed By: <Electronically signed by Marcial Ramirez MD in OV> 08/02/242133 DD/ 27 TD/TT: 08/02/242040 Metal Window Screen Assembler: RICARDO us [facility] External Provider CV VASC ULAR PROCEDURES Edited Result - Final [facility] [address] [place] [phone] * (ABNORMAL) Drug Monitoring, Panel 1, Screen, Urine (08/02/2024 8:03 PM EST) Opiate Screen Urine Not Detected Not Detect [facility] Comment:Opiate cut-off is 30 0 ng/mL.Positive results are unconfirmed and should not be used fornon-medical purposes. Barbiturates, Urine Not Detected Not Detect [facility] Comment:Barbiturate cut-off is 200 ng/mL.Positive results are unconfirmed and should not be used fornon-medical purposes. Phencyclidine Screen Urine Not Detected Not Detect [facility] Comment:Phencyclidine cut-of f is 25 ng/mL.Positive results are unconfirmed and should not be used fornon-medical purposes. Amphetamine Screen Urine Not Detected Not Detect [facility] Comment:Amphetamine cut-off is 1000 ng/mL.Positive results are unconfirmed and should not be used fornon-medical purposes. Benzodiazepines Screen Urine POSITIVE(A) Not Detect [facility] Comment:Benzodiazepine cut-o ff is 200 ng/mL.Positive results are unconfirmed and should not be used fornon-medical purposes. Cocaine Screen Urine Not Detected Not Detect [facility] Comment:Cocaine cut-off is 3 00 ng/mL.Positive results are unconfirmed and should not be used fornon-medical purposes. Cannabinoid Screen Urine Not Detected Not Detect [facility] Comment:Cannabinoid cut-off is 50 ng/mL.Positive results are unconfirmed and should not be used fornon-medical purposes. Methadone Screen, Urine Positive(A) Not Detect ng/mL [facility] Comment:Methadone cut-off is 300 ng/mL.Positive results are unconfirmed and should not be used fornon-medical purposes. FENTANYL URINE Not Detected Not Detect [facility] Comment:Fentanyl cut-off is 1 ng/mL.Positive results are unconfirmed and should not be used fornon-medical purposes. Oxycodone Urine Screen Not Detected Not Detect ng/mL [facility] Comment:Oxycodone cut-off is 100 ng/mL.Positive results are unconfirmed and should not be used fornon-medical purposes. Buprenorphine Screen Not Detected Not Detect ng/mL [facility] Comment:Buprenorphine cut-of f is 5 ng/mL.Positive results are unconfirmed and should not be used fornon-medical purposes. 08/02/2024 8:03 PM EST 08/02/2024 8:07 PM EST us Generic External Data Provider LAB URINE ORDERAB LES Final Result Performing Organization Address City/State/[facility] Co de Phone Number [facility] [address] [place] [phone] * XR KUB and Upright 2 Views (08/02/2024 7:24 PM EST) Anatomical Region Laterality Modality Radiographic Cecelia ging 08/02/2024 7:24 PM EST Narrative 08/02/2024 9:34 PM EST ? [facility] ?[address] [place] [address]. ?[place] [address] ?XRay Report ? Signed ? Patient: Jr Ro,Jean ?MR#: ?? [id number] ? : 1970 ?Acct:[id number] ? Age/Sex: 54 / M ?ADM Date: 11/30/24 ? Loc: HO.ED ? Attending Dr: ? Ordering Physician: Janes Busby ?? Date of Service: 08/02/24 ?? Procedure(s): XR KUB ?? Accession Number(s): [id number] ? cc: Janes Busby; [facility] GEOLOGICAL SPECIALIST ? EXAMINATION: ?? XR ABDOMEN KUB ? CLINICAL INDICATION: ?? Constipation ? COMPARISON: ?? Selected images of the abdomen and pelvic CT scan of 11/22/2021, KUB of ?? 09/26/2019 ? TECHNIQUE: ?? AP view of the abdomen. ? FINDINGS: ?? The bowel gas pattern is normal without evidence of ileus or ?? obstruction. Moderate stool burden is noted in the left-sided colon and ?? rectosigmoid colon with small stool burden in the right-sided colon and ?? transverse colon. No abnormal soft tissue calcifications are noted. ?? Small phlebolith is noted in the left pelvis. There is suggestion of ?? bronchial thickening at the left lung base. Mild degenerative changes ?? in the spine. ? XR/XR KUB ?? IMPRESSION: ?? Nonobstructive bowel gas pattern. Moderate stool burden in the ?? left-sided colon and rectosigmoid colon. Likely bronchial thickening of ?? the left lung base. Recommend clinical correlation. ? Electronically signed by: ??Marcial Ramirez MD ??08/02/2024 09:31 PM EST RP ? Dictated By: ?Marcial Ramirez MD ? Signed By: ?<Electronically signed by Marcial Ramirez MD in OV> ? 08/02/241 ? DD/ 23 ? TD/TT: 08/02/241941 ? Metal Window Screen Assembler: AP ? Procedure Note Leonard Sanders - 08/02/[address] [address] XRay Report Signed Patient: John Fitzpatrick [facility]#: [id number] : 1970Acct:[id number] Age/Sex: 54 / MADM Date: 08/02/24 Loc: HO.ED Attending Dr: Ordering Physician: Janes Busby Date of Service: 08/02/24 Procedure(s): XR KUB Accession Number(s): [id number] cc: Janes Busby; Haily Robb GEOLOGICAL SPECIALIST EXAMINATION: XR ABDOMEN KUB CLINICAL INDICATION: Constipation COMPARISON: Selected images of the abdomen and pelvic CT scan of 11/22/2021, KUB of 09/26/2019 TECHNIQUE: AP view of the abdomen. FINDINGS: The bowel gas pattern is normal without evidence of ileus or obstruction. Moderate stool burden is noted in the left-sided colon and rectosigmoid colon with small stool burden in the right-sided colon and transverse colon. No abnormal soft tissue calcifications are noted. Small phlebolith is noted in the left pelvis. There is suggestion of bronchial thickening at the left lung base. Mild degenerative changes in the spine. XR/XR KUB IMPRESSION: Nonobstructive bowel gas pattern. Moderate stool burden in the left-sided colon and rectosigmoid colon. Likely bronchial thickening of the left lung base. Recommend clinical correlation. Electronically signed by: Marcial Ramirez MD 08/02/2024 09:31 PM EST Dictated By: Marcial Ramirez MD Signed By: <Electronically signed by Marcial Ramirez MD in OV> 08/02/242130 DD/ 23 TD/TT: 08/02/241941 Metal Window Screen Assembler: RICARDO [facility] External Provider IMG XR PROCEDURES Edited Result - Final * (ABNORMAL) CBC auto differential (08/02/2024 6:57 PM EST) Only the most recent of3 resultswithin the time period is included. White Blood Count 15.9(H) 4.8 - 10.8 X10*3/uL [facility] Red Blood Count 3.97(L) 4.60 - 5.80 X10*6/uL [facility] Hemoglobin 12.9(L) 14.0 - 18.0 g/dl [facility] Hematocrit 37.5(L) 42.0 - 52.0 % [facility] Mean Corpuscular Volume 94.5 80.0 - 98.0 fL [facility] Mean Corpuscular Hemoglobin 32.5 27.0 - 33.0 pg [facility] Mean Corpuscular HGB Conc 34.4 31.0 - 36.0 g/dl [facility] Red Cell Distribution Width 13.7 11.0 - 16.0 % [facility] Platelet Count 190 160 - 400 X10*3/uL [facility] Mean Platelet Volume 10.7 9.4 - 12.4 fL [facility] Neutrophils Percent Auto 87.7(H) 45 - 73 % [facility] Imm Gran Pct Auto 0.3 0.0 - 0.4 % [facility] Lymphocytes Percent Auto 6.2(L) 20 - 40 % [facility] Monocytes Percent Auto 5.0 2 - 11 % [facility] Eosinophils Percent Auto 0.6 0 - 4 % [facility] Basophils Percent Auto 0.2 0 - 2 % [facility] NRBC Pct Auto 0.0 0.0 - 0.2 /100WBC [facility] Neutrophils Absolute Auto 14.0(H) 2.0 - 8.3 x10*3/uL [facility] Imm Gran Abs Auto 0.05(H) 0.00 - 0.03 X10*3/uL [facility] Lymphocytes Absolute Auto 1.0(L) 1.2 - 4.9 X10*3/uL [facility] Monocytes Absolute Auto 0.8 0.1 - 1.2 X10*3/uL [facility] Eosinophils Absolute Auto 0.1 0.0 - 0.4 X10*3/uL [facility] Basophils Absolute Auto 0.0 0.0 - 0.2 X10*3/uL [facility] NRBC Abs Auto 0.000 0.0 - 0.012 X10*3/uL [facility] 08/02/2024 6:57 PM EST 08/02/2024 7:01 PM EST us Generic External Data Provider LAB BLOOD ORDERAB LES Final Result [facility] [address] [place] [phone] * B Type Natriuretic Peptide (BNP) (08/02/2024 6:57 PM EST) Only the most recent of2 resultswithin the time period is included. B Type Natriuretic Peptide <10 <100 pg/mL [facility] Comment:For those patients w ho are being treated with Natrecor(nesiritide, recombinant BNP), BNP testing should beperformed at least two hours post treatment in order toensure that only endogenous levels of BNP are detected. 08/02/2024 6:57 PM EST 08/02/2024 7:01 PM EST us Generic External Data Provider LAB BLOOD ORDERAB LES Final Result [facility] [address] [place] [phone] * (ABNORMAL) VENOUS BLOOD GAS (07/25/2024 9:56 PM EST) Pathologist [facility] VBG pH 7.37 7.32 - 7.43 [facility] Comment:METER #: [id number] additional_comment: Cb cropana VBG PCO2 53 mmHg [facility] Comment:METER #: [id number] additional_comment: Cb cropana VBG PO2 45 mmHg [facility] Comment:METER #: [id number] additional_comment: Cb cropana VBG Base Excess 5.1 mmol/L [facility] Comment:METER #: [id number] additional_comment: Cb cropana VBG HCO3 31(H) 22 - 26 mmol/L [facility] Comment:METER #: [id number] additional_comment: Cb asadana O2 Sat, Ellis 74.0 % [facility] Comment:METER #: [id number] additional_comment: Cali carmona 07/25/2024 9:56 PM EST 07/25/2024 10:04 PM EST us Generic External Data Provider LAB BLOOD ORDERAB LES Final Result Performing Organization Address [facility] de Phone Number [facility] [address] [place] [phone] * Magnesium (07/25/2024 9:52 PM EST) Only the most recent of2 resultswithin the time period is included. Magnesium 2.0 1.6 - 2.6 mg/dL [facility] 07/25/2024 9:52 PM EST 07/25/2024 9:55 PM EST us Generic External Data Provider LAB BLOOD ORDERAB LES Final Result Performing Organization Address [facility] Phone Number [facility] [address] [place] [phone] * Lipase (07/25/2024 9:52 PM EST) Lipase 17 8 - 78 U/L [facility] 07/25/2024 9:52 PM EST 07/25/2024 9:55 PM EST us Generic External Data Provider LAB BLOOD ORDERAB LES Final Result Performing Organization Address [facility] Phone Number [facility] [address] [place] [phone] * Ammonia, Plasma (07/25/2024 9:52 PM EST) Ammonia (P) 31 13 - 55 umol/L [facility] 07/25/2024 9:52 PM EST 07/25/2024 9:55 PM EST Generic External Data Provider LAB BLOOD ORDERAB LES Final Result Performing Organization Address [facility] de Phone Number [facility] [address] [place] [address] [phone] * (ABNORMAL) Hepatic Function Panel (07/25/2024 9:52 PM EST) Bilirubin, Total 1.2(H) 0.0 - 1.0 mg/dL [facility] Bilirubin, Direct 0.3 0.0 - 0.5 mg/dL [facility] Aspartate Amino Transferase 37 5 - 37 U/L [facility] Alanine Aminotransferase 30 0 - 40 U/L [facility] Total Protein 7.5 6.5 - 8.0 g/dL [facility] Albumin Level 4.7 3.5 - 5.0 g/dL [facility] Alkaline Phosphatase 49 39 - 117 U/L [facility] 07/25/2024 9:52 PM EST 07/25/2024 9:55 PM EST us Generic External Data Provider LAB BLOOD ORDERAB LES Final Result Performing Organization Address City/State/[facility] Co de Phone Number [facility] [address] [place] [address] [phone] * (ABNORMAL) Basic Metabolic Panel (07/25/2024 9:52 PM EST) Pathologist [facility] Sodium 141 135 - 145 mmol/L [facility] Potassium 3.7 3.3 - 5.1 mmol/L [facility] Chloride 103 96 - 108 mmol/L [facility] Carbon Dioxide 30(H) 22 - 29 mmol/L [facility] Anion Gap 12 12 - 20 [facility] Urea Nitrogen (BUN) 16 9 - 16 mg/dL [facility] Creatinine, Serum 0.89 0.5 - 1.4 mg/dL [facility] Creatinine Clr Calc Pharmacy 86.6 [facility] Comment:eGFR (calculated fro m the MDRD study equation) and eCrCl(calculated from the Cockcroft-Gault equation) are based ondifferent parameters and may not yield comparable results.If eCrCl result is absurd, please check patient'sheight/weight. Estimated Glomerular Filt Rate >60 [facility] Comment:Chronic Kidney Disea se: Estimated GFR < 60 mL/min/[id number] Kidney Disease: Estimated GFR < 15 mL/min/1.73m2 Glucose 92 60 - 115 mg/dL [facility] Calcium 9.3 8.4 - 10.2 mg/dL [facility] 07/25/2024 9:52 PM EST 07/25/2024 9:55 PM EST Generic External Data Provider LAB BLOOD ORDERAB LES Final Result Performing Organization Address [facility] Co de Phone Number [facility] [address] [place] [address] [phone] * SARS-CoV-2 RNA, Influenza A/B, and RSV RNA, Ql NAAT (07/25/2024 9:00 PM EST) Influenza A PCR NEGATIVE Negative [facility] Influenza B PCR NEGATIVE Negative [facility] Resp Syncy Virus RNA Qual PCR NEGATIVE Negative [facility] SARS COV2 PCR NEGATIVE Negative [facility] Comment:All test results mus t be correlated with clinical findings.Negative results do not preclude SARS-CoV2, influenza Avirus, influenza B virus and/or RSV infectionand should not be used as the sole basis for treatment orother patient management decisions. Negative results must becombined with clinical observations, patient history, andepidemiological information.This test has not been evaluated for monitoring treatment ofinfection.This test has been authorized by the FDA under an EmergencyUse Authorization (EUA) for use by authorized laboratories.Testing performed on the [employer] GeneXpert utilizingreal-time RT-PCR.All SARS CoV2 and positive influenza A/B results arereported to [facility]. 07/25/2024 9:00 PM EST 07/25/2024 9:33 PM EST Generic External Data Provider LAB MICROBIOLOGY - GENERAL ORDERABLES Final Result Performing Organization Address [facility] Co de Phone Number [facility] [address] [place] [address] [phone] * High Sensitivity Troponin I (07/24/2024 2:44 PM EST) TROPONIN I HIGH SENSITIVITY <2.7 <3.5 - 35.0 ng/L [facility] Comment:The Tello high sens itivity Troponin-I results should beused in conjunction with other diagnostic information suchas ECG, clinical observations and information, and patientsymptoms to aid in the diagnosis of SD. 07/24/2024 2:44 PM EST 07/24/2024 2:49 PM EST Generic External Data Provider LAB BLOOD ORDERAB LES Final Result Performing Organization Address [facility]/ZIP Co de Phone Number [facility] [address] [place] [address] [phone] * Partial Thromboplastin Time, Activated (APTT) (07/24/2024 2:43 PM EST) Partial Thromboplastin Time 30.9 26.0 - 36.8 SEC [facility] Comment:For information rega rding the monitoring of direct thrombininhibitors, please refer to Pharmacy. 07/24/2024 2:43 PM EST 07/24/2024 2:49 PM EST [employer] External Data Provider LAB BLOOD ORDERAB LES Final Result Performing Organization Address [facility] Co de Phone Number [facility] [address] [place] [address] [phone] * Prothrombin Time-INR (07/24/2024 2:43 PM EST) Prothrombin Time 11.2 10.9 - 12.4 SEC [facility] INTERNATIONAL NORM RATIO 1.0 0.9 - 1.1 [facility] Comment:INTERNATIONAL NORMAL IZED RATIO (INR) REFERENCE RANGES Reference RangeFor patients not on anticoagulant therapy: 0.9 - 1.1INR ranges for oral anticoagulanttherapy:For prevention and treatment of venous thrombosis and pulmonary embolism: 2.0 - 3.0For acute myocardial infarction with aspirin therapy: 2.0 - 3.0For acute myocardial infarction without aspirin therapy: 3.0 - 4.0For patients with mechanical prosthetic heart valves: 2.5 - 3.5 07/24/2024 2:43 PM EST 07/24/2024 2:49 PM EST us Generic External Data Provider LAB BLOOD ORDERAB LES Final Result [facility] [address] [place] [phone] * XR Chest 1 View (07/24/2024 1:42 PM EST) Anatomical Region Laterality Modality Chest Radiographic Cecelia ging 07/24/2024 1:42 PM EST Narrative 07/24/2024 3:55 PM EST ? [facility] ?[address] ?[place] [address] ?XRay Report ? Signed ? Patient: John Fitzpatrick ?MR#: ?? [id number] ? : 1970 ?Acct:[id number] ? Age/Sex: 54 / M ?ADM Date: 07/24/24 ? Loc: HO.ED ? Attending Dr: ? Ordering Physician: Rah Dhaliwal ?? Date of Service: 07/24/24 ?? Procedure(s): XR chest 1V ?? Accession Number(s): [id number] ? cc: Rah Dhaliwal; Haily Robb ? EXAMINATION: ?? XR CHEST ? CLINICAL INFORMATION: ?? SOB ? COMPARISON: ?? X-ray dated July 09, 2024 ? TECHNIQUE: ?? Frontal view of the chest was obtained. ? FINDINGS: ?? Indistinct margins in the perihilar regions. Pulmonary reticular ?? nodular pattern. No pleural effusion. No pneumothorax. Heart silhouette ?? size is normal. S-shaped curvature of the thoracic spine. ? XR/XR chest 1V ?? IMPRESSION: ?? Chronic interstitial lung disease with questionable mild interstitial ?? edema versus airspace disease in the right middle lung lobe. ? Electronically signed by: ??Darryl Zaidi MD ??07/24/2024 03:52 PM ?? EST RP ? Dictated By: ?Darryl Rey MD ? Signed By: ?<Electronically signed by Darryl Lynn MD in OV> ? 07/24/24 1552 ? DD/ 1342 ? TD/TT: 07/24/24 1508 ? Metal Window Screen Assembler: ? Procedure Note Donotjaylyninterpreter, Image - 07/24/[address] [address] XRay Report Signed Patient: John Fitzpatrick [facility]#: [id number] : 1970Acct:[id number] Age/Sex: 54 / MADM Date: 07/24/24 Loc: HO.ED Attending Dr: Ordering Physician: Rah Dhaliwal Date of Service: 07/24/24 Procedure(s): XR chest 1V Accession Number(s): [id number] cc: Rah Dhaliwal; [facility] EXAMINATION: XR CHEST CLINICAL INFORMATION: SOB COMPARISON: X-ray dated July 09, 2024 TECHNIQUE: Frontal view of the chest was obtained. FINDINGS: Indistinct margins in the perihilar regions. Pulmonary reticular nodular pattern. No pleural effusion. No pneumothorax. Heart silhouette size is normal. S-shaped curvature of the thoracic spine. XR/XR chest 1V IMPRESSION: Chronic interstitial lung disease with questionable mild interstitial edema versus airspace disease in the right middle lung lobe. Electronically signed by: Darryl Zaidi MD 07/24/2024 03:52 PM EST Dictated By: Darryl Rey MD Signed By: <Electronically signed by Darryl Lynn MDin OV> 07/24/24 1552 DD/ 1342 TD/TT: 07/24/24 1508 Metal Window Screen Assembler: [facility] External Provider IMG XR PROCEDURES Final Result * XR Lumbar Spine 2-3 Views (07/24/2024 1:42 PM EST) Anatomical Region Laterality Modality Spine, L-spine Radiographic Cecelia ging 07/24/2024 1:42 PM EST Narrative 07/24/2024 3:54 PM EST ? [facility] ?[address] ?[place] [address] ?XRay Report ? Signed ? Patient: John Fitzpatrick A ?MR#: ?? [id number] ? : 1970 ?Acct:[id number] ? Age/Sex: 54 / M ?ADM Date: 07/24/24 ? Loc: HO.ED ? Attending Dr: ? Ordering Physician: Rah Dhaliwal ?? Date of Service: 07/24/24 ?? Procedure(s): XR lumbar spine 2-3V ?? Accession Number(s): [id number] ? cc: Rah Dhaliwal; Haily Robb [facility] ? EXAMINATION: ?? XR LUMBOSACRAL SPINE ? CLINICAL INFORMATION: ?? back pain ? COMPARISON: ?? X-ray dated June 30, 2024. ? TECHNIQUE: ?? Three views of the lumbosacral spine. ? FINDINGS: ?? No acute cortical disruption or malalignment. Facet joint hypertrophy ?? at L4-5 and L5-S1. No gross lytic or blastic lesions. Vascular ?? complications.. ? XR/XR lumbar spine 2-3V ?? IMPRESSION: ?? Spondylosis L4-5 and L5-S1. ? Electronically signed by: ??Darryl Zaidi MD ??07/24/2024 03:51 PM ?? EST RP ? Dictated By: ?Darryl Rey MD ? Signed By: ?<Electronically signed by Darryl Lynn MD in OV> ? 07/24/24 1551 ? DD/ 1342 ? TD/TT: 07/24/24 1508 ? Metal Window Screen Assembler: ? Procedure Note Leonard Sanders - 07/24/[address] [address] XRay Report Signed Patient: John Fitzpatrick [facility] [id number] : 1970Acct:[id number] Age/Sex: 54 / MADM Date: 07/24/24 Loc: HO.ED Attending Dr: Ordering Physician: Rah Dhaliwal Date of Service: 07/24/24 Procedure(s): XR lumbar spine 2-3V Accession Number(s): [id number] cc: Rah Dhaliwal; [facility] EXAMINATION: XR LUMBOSACRAL SPINE CLINICAL INFORMATION: back pain COMPARISON: X-ray dated June 30, 2024. TECHNIQUE: Three views of the lumbosacral spine. FINDINGS: No acute cortical disruption or malalignment. Facet joint hypertrophy at L4-5 and L5-S1. No gross lytic or blastic lesions. Vascular complications.. XR/XR lumbar spine 2-3V IMPRESSION: Spondylosis L4-5 and L5-S1. Electronically signed by: Darryl Zaidi MD 07/24/2024 03:51 PM [facility] Dictated By: Darryl Rey MD Signed By: <Electronically signed by Darryl Lynn MDin OV> 07/24/24 1551 DD/ 1342 TD/TT: 07/24/24 1508 Metal Window Screen Assembler: [facility] External Provider IMG XR PROCEDURES Final Result * Hemoglobin A1c (06/20/2024 3:05 PM EDT) Hemoglobin A1c 5.7 <6.0 % [facility] Comment:Hemoglobin A1C Refer ence Range Adults: 4.8 - 6.0 % Non diabetic: < 6.0 % Goal: < 7.0 %Additional Action Suggested: > 8.0 %Note: Hemoglobin A1c results are invalid for patients with abnormal amounts of HbF. Blood transfusions may impact the HbA1c concentration in the patient sample. Estimated Average Glucose 117 mg/dL [facility] Comment:eAG = Estimated ave rage glucose which is %A1C expressed asaverage glucose, using the formula of the A7G-ZjmosexYkcalmd Glucose study (ADAG), Diabetes Care, Vol.31,#8,2007 Blood Venous blood specimen / Unknown 06/20/2024 3:05 PM EDT 06/20/2024 4:21 PM EDT us Niecy Chacon ANP LAB BLOOD ORDERABLES Final Resul t Performing Organization Address City/[facility] Co de Phone Number [facility] [address] [place] [address] [phone] * Lipid Panel, Standard (03/19/2024 9:34 AM EDT) Triglycerides 66 <150 mg/dL [facility] Comment:Desirable Triglyceri de: less than 150 mg/dLBorderline High Triglyceride 150-199 mg/dLHigh Triglyceride: 200-499 mg/dLVery High Triglyceride: greater than or equal to 5OO mg/dL Cholesterol 112 <200 mg/dL [facility] Comment:Desirable Cholestero l: less than 200 mg/dLBorderline High Cholesterol: 200-239 mg/dLHigh Cholesterol: greater than 239 mg/dL LDL Cholesterol Calculated 58 <100 mg/dL [facility] Comment:Desirable LDL: less than 100 mg/dLNear Optimal/Above Optimal LDL: 110- 129 mg/dLBorderline High LDL: 130-159 mg/dLHigh LDL: 160-189 mg/dLVery High LDL: greater than or equal to 190 mg/dL HDL Cholesterol 41 >40 mg/dL [facility] Comment:Desirable HDL: great er than 40 mg/dL Note: This HDL assay may give artificially low results in patients with liver disease. Blood Venous blood specimen / Unknown 03/19/2024 9:34 AM EDT 03/19/2024 11:12 AM EDT us Roxana Gotti DO LAB BLOOD ORDERABLES Final R esult Performing Organization Address City/[facility]/ZIP Co de Phone Number [facility] [address] [place] [phone] * Hepatitis C Viral RNA, Quantitative, Real-Time PCR (03/22/2023 11:53 AM EDT) Hepatitis C Viral Load <15 NOT DETECTED NOT DETECTED IU/mL [facility] HCV Log PCR <1.18 NOT DETECTED NOT DETECTED Log IU/mL [facility] Comment:This test was perfor med using Real-Time Polymerase ChainReaction.Reportable Range: 15 IU/mL to 100,000,000 IU/mL(1.18 Log IU/mL to 8.00 Log IU/mL).The analytical performance characteristics of thisassay have been determined by [employer].The modifications have not been cleared or approved bythe FDA. This assay has been validated pursuant to theCLIA regulations and is used for clinical purposes.For more information on this test, go to:http://education.Workana/faq/AYR06t0(This link is being provided for informational/educational purposes only.)THIS TEST WAS PERFORMED AT:[facility] [address] [id number] GONG MD Blood 03/22/2023 11:5 3 AM EDT 03/22/2023 1:32 PM EDT Jessica Guillen [facility] LAB BLOOD ORDERABLES Final Res ult [facility] [address] [place] [phone] * HIV-1 RNA, Quantitative, Real-Time PCR (03/22/2023 11:53 AM EDT) HIV RNA PCR Qn Copies NOT DETECTED NOT DETECTED copies/mL [facility] HIV RNA PCR Qn Log Copies NOT DETECTED NOT DETECTED [facility] Comment:Result Units: Log co pies/mLThis test was performed using Real-Time Polymerase ChainReaction.Reportable Range: 20 copies/mL to 10,000,000 copies/mL(1.30 log copies/mL to 7.00 log copies/mL).THIS TEST WAS PERFORMED AT:[facility] [address] [id number] GONG MD Blood Venous blood specimen / Unknown 03/22/2023 11:53 AM EDT 03/22/2023 1:32 PM EDT us Jessica Guillen GEOLOGICAL SPECIALIST LAB BLOOD ORDERABLES Final Res ult [facility] [address] [place] [phone] from Last 3 Months or Most Recently Relevant to Health Maintenance Insurance [facility] C3 DENTAL-[facility] MEDICAID STAND ADULT Care Teams Principal Account Clerk Relationship Specialty Start Date End Date Plant CityHaily FNP [address] [place] [phone] PCP - General Family Medicine 05/01/22
--- OUTSIDE RECORDS SUMMARY | 2024-10-13 09:54 | XMS_ITS | Encounter Summary ---
Author Organization [employer] Address [address] [facility] [address] [place] [address] Care Team Providers Care Gas Stove Servicer Helper Name Role Phone [facility] Primary Care Provider [phone] Reason for Visit * Reason Onset Date Comments Med Refill 12/13/2023 Encounter Details Date Type Department Care Team ([facility] st Contact Info) Description 12/13/2023 Telephone [facility] MEDICINE [address] [place], [place] [phone] [facility] [address] [place] [address] Med Refill Social History Tobacco Use Types Packs/Day Years Used Date Smoking Tobacco: Former Cigarettes Q uit: 08/22/2023 Passive Smoke Exposure: Never Smokeless Tobacco: Never Alcohol Use Standard Drinks/Week Comments Never 0 (1 standard drink = 0.6 oz pur e alcohol) Depression Answer Date Recorded Patient Health Questionnaire-9 Score 0 08/15/2023 Patient Health Questionnaire-9 Score 0 08/15/2023 Last PHQ-9: Questionnaire Data Not on file 1 10/16/2022 Housing Stability Answer Date Recorded What is your housing situation today? I do not have housing (Staying with others, in a hotel, in a fdc, living outside on the street, on a beach, in a car, or in a park 06/11/[address] you li ve. Do you have problems with any of the following? None of the above 06/11/2023 Food Insecurity Answer Date Recorded Within the past 12 months, y ou worried that your food would run out before you got money to buy more: Often true 06/18/2023 Within the past 12 months,th e food you bought just didn't last and you didn't have enough money to get more: Often true Transportation Answer Date Recorded In the past 12 months, has l ack of transportation kept you from medical appts, meetings, work or from getting things needed for daily living? Yes, it has kept me from medical appointments or getting medications. 06/11/2023 Utilities Answer Date Recorded In the past 12 months, has t he [employer], gas, oil or water company threatened to shut off services in your home? No 06/18/2023 Depression Answer Date Recorded Patient Health Questionnaire-2 Score 0 08/15/2023 Sex and Gender Information Value Date Recorded Sex Assigned at Male 07/03/2022 10:29 AM EDT Legal Sex Male 10:29 AM EDT Gender Identity Choose not to disclose 10:29 AM EDT Sexual Orientation Choose not to disclose 2021 10:29 AM EDT documented as of this encounter Miscellaneous Notes * Telephone Encounter - Roxana Sotelo LPN - 12/13/2023 10:24 AM EDT Medication was sent to [facility] on 11/09/23 with 2 refills. * Telephone Encounter - Christine Talyor - 12/13/2023 10:19 AM EDT TC from pt requesting medication refill. Medications needing refill : melatonin 5 MG tablet To be sent to: [facility] - [place], [place] - [address] [facility] documented in this encounter Plan of Treatment Upcoming Encounters Date Type Department Care Team (Late st Contact Info) Description 10/22/2024 1:00 PM EST Office Visit [facility] ADULT DENTAL [address] [place] [address] Claudette Soni [address] [place] [phone] documented as of this encounter Visit Diagnoses Not on filedocumented in this encounter Additional Health Concerns Assessment Noted Time PHQ-9 Depression Total Score: 0 08/15/20 23 3:52 PM EST documented as of this encounter Care Teams Gas Stove Servicer Helper Relationship Specialty Start Date End Date Haily Robb FNP [address] [place] [phone] PCP - General Family Medicine 05/01/22 documented as of this encounter
--- OUTSIDE RECORDS SUMMARY | 2024-10-13 09:54 | XMS_ITS | Encounter Summary ---
Author Organization [employer] Address [address] [facility] [address] [place] [address] Care Team Providers Care X Ray Technologist Name Role Phone Haily Robb [employer] Primary Care Provider [phone] Reason for Visit * Reason Comments Med Refill Encounter Details Date Type Department Care Team (Late st Contact Info) Description 10/29/2023 Refill [facility] [address] [place], [place] [phone] Name, MD Collins [address] [place] [address] Chronic neck pain Social History Tobacco Use Types Packs/Day Years [...] with others, in a hotel, in a penitentiary, living outside on the street, on a [...] the past 12 months, has t he [employer], gas, oil or water company threatened to [...] Description 10/22/2024 1:00 PM EST Office Visit [facility]ULT [facility] [address] [place] [address] Zachariah, Claudette [address] [place] [address] documented as of this encounter Visit Diagnoses Diagnosis Chronic neck pain Cervicalgia documented in this encounter Additional Health Concerns Assessment Noted Time PHQ-9 Depression Total Score: 0 08/15/20 23 3:52 PM EST documented as of this encounter Care Teams X Ray Technologist Relationship Specialty Start Date End Date Haily Robb FNP [address] [place] [address] PCP - General Family Medicine 05/01/22 documented as of this encounter
--- OUTSIDE RECORDS SUMMARY | 2024-10-13 09:54 | XMS_ITS | Encounter Summary ---
Author Organization [employer] Address [address] [facility] [address] [place] [address] Care Team Providers Care Embalmer Apprentice Name Role Phone [place] [facility] Primary Care Provider [phone] Reason for Visit * Reason Comments Med Refill Encounter Details Date Type Department Care Team ([facility] st Contact Info) Description 09/05/2022 Telephone [facility] MEDICINE [address] [place], [place] [phone] [facility] [address] [place] [address] Med Refill Social History Tobacco Use Types Packs/Day Years Used Date Smoking Tobacco: Every Day Cigarettes Alcohol Use Standard Drinks/Week Comments Never 0 (1 standard drink = 0.6 oz pur e alcohol) Sex and Gender Information Value Date Recorded Sex Assigned at Male 07/03/2022 10:29 AM EDT Legal Sex Male 10:29 AM EDT Gender Identity Choose not to disclose 2 10:29 AM EDT Sexual Orientation Choose not to disclose 2021 10:29 AM EDT documented as of this encounter Miscellaneous Notes * Telephone Encounter - Yessi Cannon RN - 09/06/2022 8:18 AM EST TC via P/I#[id number], explained to pt that [facility] Provided pt the phone number for the [facility] site and encouraged him to call them for all refills of his Clonazepam. Pt thanked press writer and said he understood. * Telephone Encounter - Yessi Cannon RN - 09/05/2022 3:04 PM EST Note on 08/02/22: Medication request:CLONAZEPAM Last visit 06/27/22. You sent a refill in June, it was picked up 07/12/22. He was originally getting this elsewhere. Not sure what you'd like to do. If you'll now be prescribing, then would you like him on AIR CONDITIONING SERVICE TECHNICIAN? documented in this encounter Plan of Treatment Upcoming Encounters Date Type Department Care Team (Late st Contact Info) Description 10/22/2024 1:00 PM EST Office Visit [facility] ADULT DENTAL [address] [place] [address] Claudette Soni [address] [place] [address] documented as of this encounter Visit Diagnoses Diagnosis Other specified anxiety disorders documented in this encounter Care Teams Embalmer Apprentice Relationship Specialty Start Date End Date Haily Robb FNP [address] [place] [address] PCP - General Family Medicine 05/01/22 documented as of this encounter
--- OUTSIDE RECORDS SUMMARY | 2024-10-13 09:54 | XMS_ITS | Clinical Summary ---
Author Organization [facility] Address [address] [place] [address] Phone Care Team Providers Care Felling Bucking Supervisor Name Role Phone [facility] Primary Care Provider [phone] Medications polyethylene glycol (Golytely) 236-22.74-6.74 -5.86 gram solution Take 4L by mouth once for one dose. May substitue any PEG. Starting at 6PM the night before your procedure drink 1 8oz glasses at your own pace until you complete half of the gallon. Finish 2nd half of the gallon 5 hours before your procedure. 4000 mL 5 Active bisacodyL (DULCOLAX) 5 mg EC tablet Take 2 tablets by mouth right before beginning bowel prep. See instructions provided by the office 2 tablet 5 Active Social History Tobacco Use Types Packs/Day Years Used Date Smoking Tobacco: Never Assessed Sex and Gender Information Value Date Recorded Sex Assigned at Not on file Legal Sex Male 11:41 AM EDT Gender Identity Not on file Sexual Orientation Not on file Plan of Treatment Health Maintenance Due Date Last Done Comments DTaP,Tdap,and Td Vaccines (1 - Tdap) 1975 Hepatitis B Vaccines (1 of 3 - 19+ 3-dose series) 1987 Pneumococcal Vaccine: 50+ Ye ars (1 of 1 - PCV) 2018 Zoster Vaccines (1 of 2) 2018 COVID-19 Vaccine ( - 2023-2 5 season) 2024 Influenza Vaccine (#1) 2024 [...] patient's age to complete this topic Meningococcal B Vacine Aged Out No lo nger eligible based on patient's age to complete [...] on patient's age to complete this topic Insurance * Guarantor: John Fitzpatrick Account Type Relation to Patient Date of Phone Billing Address Personal/Family Self 1970 [address] [place] [address] MEDICAID - [place] Care Teams Felling Bucking Supervisor Relationship Specialty Start Date End Date Haily Robb [address] [place] [id number] PCP - General 05/20/24
--- OUTSIDE RECORDS SUMMARY | 2024-10-13 09:54 | XMS_ITS | Encounter Summary ---
Author Organization [employer] Address [address] [facility] 7t [place] [address] Care Team Providers Care Licensed Investment Sales Assistant Name Role Phone Clarisse [facility] Primary Care Provider [phone] Reason for Visit * Reason Onset Date Comments Nurse Triage 02/11/2024 Encounter Details Date Type Department Care Team ([facility] st Contact Info) Description 02/11/2024 Telephone [facility] MEDICINE [address] [place], [place] [phone] [facility] [address] [place] [address] Nurse Triage Social History Tobacco Use Types Packs/Day Years [...] with others, in a hotel, in a usp, living outside on the street, on a [...] the past 12 months, has t he [employer], gas, oil or water company threatened to [...] encounter Miscellaneous Notes * Telephone Encounter - Angela WhitmanGIO - 02/11/2024 12:47 PM EDT Triage call returned to patient with [place] dietist [id number]. Patient reports ongoing issue withleft eye and is being follow with specialist for blepharospasm.Patient reports emotional distress as related to this issue. Has upcoming appt with specialist on 03/11/24. No apparent infection no redness or swelling of lid or purulent drainage. Patient reports that sometimes depression due to conditions makes him feel like he would be better off . No SI/HI concerns when statement pursued with triage. patient reports that he sees someone for depression and other mental concerns and is on medication for such. Patient then took the phone and reports that patient is seeing a eye MD who is managing his eye issue. Per she is concerned with patient intake of sugar and concerns for diabetes. Reports that last weak she noticed some trembling of hand and blurred vision. Patient with upcoming PCP visit on Sunday and would like to have labs ordered prior to visit. Patient also reports that patient has fibromyalgia with needle like pain and she would like him referred to [facility] Manufacture Specialist. No diagnosis in chart.Advised of [facility] for evaluation today. Lab request sent to PCP to follow with patient if labs indicated before appt. Patient and family aware of appt today with med review with RX at 130pm. Multiple (2) protocols were used on this call. Disposition for Call: Discuss with PCP and Callback by Nurse Today Protocol Used: No Protocol Available (Adult) Protocol-Based Disposition: Discuss with PCP and Callback by Nurse Today Video visit not offered Positive Triage Question: * Nursing judgment * All higher-acuity triage questions were negative Protocol Used: Eye Pain and Other Symptoms (Adult) Protocol-Based Disposition: See in Office or Video Visit Today Override (Final) Disposition: Refer to Specialist Override Reason: Other Override Notes: Being treated with trade show specialist with appt coming in 03/11/24 Video visit not offered Positive Triage Question: * Patient wants to be seen * All higher-acuity triage questions were negative * Telephone Encounter - Christine Taylor - 02/11/2024 10:03 AM EDT Symptom: Eye - Pus or Discharge Outcome: Schedule a same-day appointment or talk to a nurse or provider today Reason: involuntary movements The caller accepted this outcome Guamanian speaker documented in this encounter Plan of Treatment Upcoming Encounters Date Type Department Care Team (Late st Contact Info) Description 10/22/2024 1:00 PM EST Office Visit [facility] ADULT DENTAL [address] [place] [address] Zachariah, Claudette [address] [place] [address] documented as of this encounter Goals Goal Patient Goal Type Associated Problems Recent Progress Patient-Stated? Author Patient will adhere to medication regimen General No Mary Moreland documented as of this encounter Visit Diagnoses Not on filedocumented in this encounter Additional Health Concerns Assessment Noted Time PHQ-9 Depression Total Score: 0 08/15/20 23 3:52 PM EST documented as of this encounter Care Teams Licensed Investment Sales Assistant Relationship Specialty Start Date End Date Haily Robb FNP [address] [place] [id number] PCP - General Family Medicine 05/01/22 documented as of this encounter
--- OUTSIDE RECORDS SUMMARY | 2024-10-13 09:54 | XMS_ITS | Encounter Summary ---
Author Organization [employer] Address [address] 7[address] [place] [address] Care Team Providers Care Military Analyst Name Role Phone [facility] Primary Care Provider [phone] Reason for Visit * Reason Comments Med Refill Encounter Details Date Type Department Care Team ([facility] st Contact Info) Description 10/01/2024 Refill [facility] MEDICINE [address] [place], [place] [phone] [facility] [address] [place] [address] Mixed anxiety and depressive disorder Social History [...] Description 10/22/2024 1:00 PM EST Office Visit [facility] ADULT DENTAL [address] [place] [address] Zachariah, Claudette [address] [place] [address] documented as of this encounter Goals Goal [...] documented as of this encounter Care Teams Military Analyst Relationship Specialty Start Date End Date Haily Robb FNP [address] [place] [address] PCP - General Family Medicine 05/01/22 documented as of this encounter
--- OUTSIDE RECORDS SUMMARY | 2024-10-13 09:54 | XMS_ITS | Encounter Summary ---
Author Organization [employer] Address [address] [facility] [address]t [place] [address] Care Team Providers Care Word Processor Operator Name Role Phone [facility] Primary Care Provider [phone] Reason for Visit * Reason Onset Date Comments Med Refill 09/25/2023 Encounter Details Date Type Department Care Team ([facility] st Contact Info) Description 09/25/2023 Telephone [facility] MEDICINE [address] [place], [place] [phone] [facility] [address] [place] [address] Med Refill Social History Tobacco Use Types Packs/Day Years Used Date Smoking Tobacco: Every Day Cigarettes Passive Smoke Exposure: Never Smokeless Tobacco: Never [...] the past 12 months, has t he [employer], gas, oil or water company threatened to [...] encounter Miscellaneous Notes * Telephone Encounter - Dixon Thomas - 09/28/2023 3:46 PM EST Tc from pt calling in regards to message prior but call was disconnected. * Telephone Encounter - Roxana Sotelo LPN - 09/25/2023 11:42 AM EST Medication is prescribed by Urology. * Telephone Encounter - Christine Taylor - 09/25/2023 11:35 AM EST TC from pt requesting medication refill. Medications needing refill : testosterone cypionate (Depo-Testosterone) 200 MG/ML injection To be sent to: [facility] - [place], [place] - [address] documented in this encounter Plan of Treatment Upcoming Encounters Date Type Department Care Team (Late st Contact Info) Description 10/22/2024 1:00 PM EST Office Visit [facility] ADULT DENTAL [address] [place] [address] Claudette Soni [address] [place] [address] documented as of this encounter Visit Diagnoses Not on filedocumented in this encounter Additional Health Concerns Assessment Noted Time PHQ-9 Depression Total Score: 0 08/15/20 3:52 PM EST documented as of this encounter Care Teams Word Processor Operator Relationship Specialty Start Date End Date Haily Robb FNP [address] [place] [address] PCP - General Family Medicine 05/01/22 documented as of this encounter
--- OUTSIDE RECORDS SUMMARY | 2024-10-13 09:54 | XMS_ITS | Encounter Summary ---
Author Organization [employer] Address [address] 7[address] [place] [address] Care Team Providers Care Tilesetter Name Role Phone Clarisse [facility] Primary Care Provider [phone] Encounter Details Date Type Department Care Team (Latest Contact Info) Description 10/10/2024 Travel Social History Tobacco Use Types Packs/Day Years [...] Description 10/22/2024 1:00 PM EST Office Visit [facility] ADULT DENTAL [address] [place] [address] Zachariah, Claudette [address] [place] [address] documented as of this encounter Goals Goal Patient Goal Type Associated Problems Recent Progress Patient-Stated? Author Patient will adhere to medication regimen General Mary Chauhan documented as of this encounter Visit Diagnoses Not on filedocumented in this encounter Additional Health Concerns Assessment Noted Time PHQ-9 Depression Total Score: 0 10/10/19 25 1:23 PM EST documented as of this encounter Care Teams Tilesetter Relationship Specialty Start Date End Date Haily Robb FNP [address] [place] [address] PCP - General Family Medicine 05/01/22 documented as of this encounter
--- OUTSIDE RECORDS SUMMARY | 2024-10-13 09:54 | XMS_ITS | Encounter Summary ---
Author Organization [employer] [facility] Address [address] [place] [address] Care Team Providers Care Cocoa Bean Roaster Helper Name Role Phone Clarisse Haily CORNELL Primary Care Provider [phone] Encounter Details Date Type Department Care Team (Latest Contact Info) Description 06/16/2020 Abstract [facility] CON[facility] Dental, Provider, DDS Social History Tobacco Use Types Packs/Day Years [...] Description 10/22/2024 1:00 PM EST Office Visit [facility] ADULT DENTAL [address] [place] [address] Zachariah, Claudette [address] [place] [address] documented as of this encounter Visit Diagnoses Not on filedocumented in this encounter Care Teams Cocoa Bean Roaster Helper Relationship Specialty Start Date End Date Haily Robb FNP [address] [place] [address] PCP - General Family Medicine 05/01/22 documented as of this encounter
--- OUTSIDE RECORDS SUMMARY | 2024-10-13 09:54 | XMS_ITS | Encounter Summary ---
Author Organization [email or web address] Address [address] [facility] 7t [place] [address] Care Team Providers Care Dope Heater Name Role Phone Clarisse [facility] Primary Care Provider [phone] Reason for Visit * Reason Onset Date Comments Appointment Request 10/08/2023 Encounter Details Date Type Department Care Team ([facility] st Contact Info) Description 10/08/2023 Telephone [facility] MEDICINE [address] [place], [place] [phone] [facility] [address] [place] [address] Appointment Request Social History Tobacco Use Types Packs/Day Years [...] with others, in a hotel, in a nursing home, living outside on the street, on a [...] encounter Miscellaneous Notes * Telephone Encounter - Kelli Boucher - 10/08/2023 10:06 AM EST Tc from pt requesting a follow up appointment due to neck pain. States pain has not gotten any better. Please contact pt at [phone] documented in this encounter Plan of Treatment Upcoming Encounters Date Type Department Care Team (Late st Contact Info) Description 10/22/2024 1:00 PM EST Office Visit [facility] ADULT DENTAL [address] [place] [address] Zachariah, Claudette [address] [place] [address] documented as of this encounter Visit Diagnoses Not on filedocumented in this encounter Additional Health Concerns Assessment Noted Time PHQ-9 Depression Total Score: 0 08/15/20 23 3:52 PM EST documented as of this encounter Care Teams Dope Heater Relationship Specialty Start Date End Date Haily Robb FNP [address] [place] [address] PCP - General Family Medicine 05/01/22 documented as of this encounter
--- OUTSIDE RECORDS SUMMARY | 2024-10-13 09:54 | XMS_ITS | Encounter Summary ---
Author Organization [employer] Address [address] [place] [address] Care Team Providers Care Taping Supervisor Name Role Phone [facility] Primary Care Provider [phone] Reason for Visit * Reason Onset Date Comments Referral 02/20/2023 Encounter Details Date Type Department Care Team ([facility] st Contact Info) Description 02/20/2023 Telephone [facility] MEDICINE [address] [place], [place] [phone] [facility] [address] [place] [address] Referral Social History Tobacco Use Types Packs/Day Years [...] the past 12 months, has t he [employer], gas, oil or water [employer] threatened to shut off services in your [...] encounter Miscellaneous Notes * Telephone Encounter - Ramon Monk RN - 02/21/2023 4:51 PM EDT T/C to [phone] through [employer] id - [id number] for below message , pt. States he is looking for referral for Neurology for his VILLAR. Pt. Is having VILLAR at the back of his head. Pt. Also feels tingling as well. Tingling is traveling from back of head to the back of the body to lower part of the body. Pt. States he had VILLAR in the past but this VILLAR is very severe, when RN asks, Is this worst VILLAR of your life? Pt. States, yes this time I have very severe VILLAR. Pt. Also states that his left eye also gets blinking too much. He has never this type of symptoms before. Pt. Also has blurry vision in left eye some time. Pt. Advised to go to nearest ED right now. Pt. Offered to call ambulance but denied, he states he is having ride, pt. Also asks about Walk in center hours. Hours are reviewedbut because of the symptoms , pt. Highly Advised to go to nearest Ed for further evaluation. Pt. Verbally agreed and understood. RN will send message to PCP and covering provider as FYI. * Telephone Encounter - Davemaite Ancelmo - 02/20/2023 12:16 PM EDT Tc from pt requesting a referral for [facility] Neurology - [facility], [address] [place] [address]. Please contact at [phone] documented in this encounter Plan of Treatment Upcoming Encounters Date Type Department Care Team (Late st Contact Info) Description 10/22/2024 1:00 PM EST Office Visit [facility] ADULT DENTAL [address] [place] [address] Zachariah Claudette [address] [place] [address] documented as of this encounter Goals Goal Patient Goal Type Associated Problems Recent Progress Patient-Stated? Author Patient will adhere to medication regimen General No Mary Moreland documented as of this encounter Visit Diagnoses Not on filedocumented in this encounter Additional Health Concerns Assessment Noted Time PHQ-9 Depression Total Score: 0 01/26/20 23 3:38 PM EDT documented as of this encounter Care Teams Taping Supervisor Relationship Specialty Start Date End Date Haily Robb FNP [address] [place] [address] PCP - General Family Medicine 05/01/22 documented as of this encounter
--- OUTSIDE RECORDS SUMMARY | 2024-10-13 09:54 | XMS_ITS | Encounter Summary ---
Author Organization [employer] Address [address] [facility] 7t [place] [address] Care Team Providers Care Public Policy Analyst Name Role Phone Haily Robb [facility] Primary Care Provider [phone] Reason for Referral * Imaging (Routine) - Authorized Specialty Diagnoses / Procedures Referred By Contac t Referred To Contact Cardiology Diagnoses Bilateral lower extremity edema Procedures Transthoracic Echo (TTE) Complete Pepper Balderrama MD [address] [place] [address] Phone: tel: fax: [address] Phone: tel: fax: Referral ID Status Reason Start Date Expiration Date Visits Requested Visits Authorized [id number] Authorized Perform Procedure 09/24/2024 09/24/2025 1 1 Encounter Details Date Type Department Care Team (Late st Contact Info) Description 09/24/2024 2:40 PM EST Office Visit [facility] [address] [place], [place] [phone] Pepper Balderrama MD [address] [place] [address] [id number] Bilateral lower extremity edema (Primary Dx) Social History Tobacco Use Types Packs/Day Years [...] AM EDT documented as of this encounter Last Filed Vital Signs Vital Sign Reading Time Taken Comments Blood Pressure 118/72 09/24/2024 2:15 PM EST Pulse 63 09/24/2024 2:15 PM EST Temperature 36.8 ??C (98.3 ??F) 09/24/2024 2:15 PM ES T Respiratory Rate 16 09/24/2024 2:15 PM EST Oxygen Saturation 99% 09/24/2024 2:15 PM EST Inhaled Oxygen Concentration - - Weight 67.3 kg (148 lb 6.4 oz) 09/24/2024 2:15 P M EST Height 167.6 cm (5' 6 ) 09/24/2024 2:15 PM EST Body Mass Index 23.95 09/24/2024 2:15 PM EST documented in this encounter Patient Instructions * Patient Instructions* Pepper Balderrama MD - 09/24/2024 2:40 PM EST Tomorrow start taking furosemide 40 mg once every morning. That is 2 pills of 20 mg each. You should notice that you have a tremendous urge to go to the bathroom. If not, consider returning to [facility] next week. Have your blood tested at [facility] on 10/01/24. You will be notified of an appointment for an echocardiogram, an ultrasound of your heart. See your PCP, Haily Beaumont, on 2024 at 1:15pm. documented in this encounter Progress Notes * Pepper Balderrama MD - 09/24/2024 2:40 PM EST Subjective Patient ID: John Ro is a 54 y.o. adult who presents for leg swelling x 10 days. HPI John has been having bilateral leg swelling for the last few months but he says that it has gotten worse in the last 10 days. Has been taking furosemide 20 mg for about 1.5 mos as prescribed by his PCP without any increased urination. Saw a firer locomotive last week who did not think his edema was renal in nature. Reports that his legs and feet hurt, worse when walking. No SOB, cough, chest pain, palpitations. Review of Systems Constitutional: Negative for appetite change, chills and fever. Respiratory: Negative for cough and shortness of breath. Cardiovascular: Positive for leg swelling. Negative for chest pain and palpitations. Gastrointestinal: Negative for abdominal distention. Genitourinary: Negative for difficulty urinating. Musculoskeletal: Positive for myalgias. Objective BP 118/72 (BP Location: Right arm, Patient Position: Sitting, BP Cuff Size: Adult) Pulse 63 Temp 98.3 ??F (36.8 ??C) (Temporal) Resp 16 Ht 5' 6 (1.676 m) Wt 148 lb 6.4 oz (67.3 kg) SpO2 99% BMI 23.95 kg/m?? Physical Exam Constitutional: Appearance: He is ill-appearing (chronically, not acutely). HENT: Head: Normocephalic and atraumatic. Eyes: General: No scleral icterus. Cardiovascular: Rate and Rhythm: Normal rate and regular rhythm. Pulses: Normal pulses. Heart sounds: Normal heart sounds. No murmur heard. No friction rub. No gallop. Pulmonary: Effort: Pulmonary effort is normal. Breath sounds: Normal breath sounds. No wheezing, rhonchi or rales. Abdominal: General: Abdomen is flat. Bowel sounds are normal. Palpations: There is no mass. Tenderness: There is no abdominal tenderness. There is no guarding. Comments: Firm to palpation Musculoskeletal: Right upper leg: Edema (2+ distally, posteriorly) present. Left upper leg: Edema (distally, posteriorly) present. Right lower le+ Pitting Edema present. Left lower le+ Pitting Edema present. Skin: General: Skin is warm and dry. Capillary Refill: Capillary refill takes less than 2 seconds. Coloration: Skin is sallow (bilateral legs). Comments: Shiny skin over both legs with some skin thickening and scale over R>L shins Neurological: General: No focal deficit present. Mental Status: He is alert. Psychiatric: Comments: Flat affect Assessment/Plan Diagnoses and all orders for this visit: Bilateral lower extremity edema: On reviewing his chart, I see that he started having bilateral legedema in late 2023. 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 His PCP mentioned checking a TTE and I agree that should be done, so I have ordered it. A CXR on 07/24/24 did not demonstrate cardiomegaly but he did have what appeared to be chronic interstitial lung disease and questionable mild interstitial edema) so left-sided or right-sided CHF are possible. Liver disease as the cause also possible in light of abnormal LFTs. Plan: Increase furosemide to 40 mg/day. Told him he should really notice the medication taking effect within 1/2 hour of taking it. If not, I recommended he RTC to [facility] next week. Return to health center in 1 week to do labs previously ordered (CMP, hep C Ab) and a new one I ordered, TSH. Check TTE--ordered it today. F/U with PCP Haily Robb as previously scheduled. I messaged her and updated her with this info. Future Appointments Date Time Provider Department Center 10/10/2024 1:15 PM Haily Beaumont, [facility] MEDICINE [facility] 10/22/2024 1:00 PM Claudette Soni ADLT DENT [facility] - furosemide (Lasix) 20 MG tablet; Take 2 tablets (40 mg) by mouth Once per day. - Transthoracic Echo (TTE) Complete; Future - TSH W/Reflex to FT4; Future documented in this encounter Plan of Treatment Upcoming Encounters Date Type Department Care Team (Late st Contact Info) Description 10/22/2024 1:00 PM EST Office Visit [facility] ADULT DENTAL [address] [place] [address] Zachariah, Claudette [address] [place] [address] Scheduled Orders Name Type Priority Associated Diagnoses Order Schedule Transthoracic Echo (TTE) Complete Echocardiography Routine Bilateral lower extremity edema Expected: 09/24/2024 (Approximate), Expires: 09/24/2026 TSH W/Reflex to FT4 Lab Routine Bilateral lower extremity edema Expected: 09/24/2024 (Approximate), Expires: 09/24/2025 documented as of this encounter Goals Goal Patient Goal Type Associated Problems Recent Progress Patient-Stated? Author Patient will adhere to medication regimen General Mary Chauhan documented as of this encounter Visit Diagnoses Diagnosis Bilateral lower extremity edema- Primary documented in this encounter Additional Health Concerns Assessment Noted Time PHQ-9 Depression Total Score: 18 04/23/ 024 10:36 AM EDT documented as of this encounter Care Teams Public Policy Analyst Relationship Specialty Start Date End Date Clarisse ANETA Johansen [address] [place] [address] PCP - General Family Medicine 05/01/22 documented as of this encounter
--- OUTSIDE RECORDS SUMMARY | 2024-10-13 09:54 | XMS_ITS | Encounter Summary ---
Author Organization [employer] Address [address] [facility] [address] 7[address] [place] [address] Care Team Providers Care Subway Train Operator Name Role Phone [place] [facility] Primary Care Provider [phone] Reason for Visit * Reason Onset Date Comments Medication Question 01/16/2023 Encounter Details Date Type Department Care Team ([facility] st Contact Info) Description 01/16/2023 Telephone [facility] MED[facility]INE [address] [place] [address] [facility] [address] [place] [address] Medication Question Social History Tobacco Use Types Packs/Day Years Used Date Smoking Tobacco: Every Day Cigarettes Passive Smoke Exposure: Never Smokeless Tobacco: Never Alcohol Use Standard Drinks/Week Comments Never 0 (1 standard drink = 0.6 oz pur e alcohol) PHQ-2 Answer Date Recorded Patient Health Questionnaire-2 Score 0 11/02/2022 Sex and Gender Information Value Date Recorded [...] suspected to have Coronavirus/COVID-19? No / Unsure 01/08/2023 9:03 AM EDT documented as of this encounter Miscellaneous Notes * Telephone Encounter - Haydee Mancini - 01/16/2023 1:18 PM EDT Tc from pt requesting a call back to discuss getting a change with medication omeprazole (PriLOSEC)[address] capsule. documented in this encounter Plan of Treatment Upcoming Encounters Date Type Department Care Team (Late st Contact Info) Description 10/22/2024 1:00 PM EST Office Visit [facility] ADULT DENTAL [address] [place], [place] [phone] Zachariah, Claudette [address] [place], [place] [phone] documented as of this encounter Visit Diagnoses Not on filedocumented in this encounter Additional Health Concerns Assessment Noted Time PHQ-9 Depression Total Score: 0 11/03/19 23 10:32 AM EST documented as of this encounter Care Teams Subway Train Operator Relationship Specialty Start Date End Date Haily Robb FNP [address] [place] [address] PCP - General Family Medicine 05/01/22 documented as of this encounter
--- OUTSIDE RECORDS SUMMARY | 2024-10-13 09:54 | XMS_ITS | Encounter Summary ---
Author Organization [employer] Address [address] [facility] [address] 7t [place] [address] Care Team Providers Care Pan Puller Name Role Phone [facility] Primary Care Provider [phone] Reason for Visit * Reason Onset Date Comments Durable Medical Equipment 09/16/2024 Compre ssion stockings Encounter Details Date Type Department Care Team (Late st Contact Info) Description 09/16/2024 Telephone [facility] MEDICINE [address] [place] [address] [facility] [address] [place], [place] [phone] Durable Medical Equipment (Compression stockings) Social History Tobacco Use Types Packs/Day Years [...] encounter Miscellaneous Notes * Telephone Encounter - Bell Moreno - 09/16/2024 8:27 AM EST DME order generated in [employer]. Order [id number] documented in this encounter Plan of Treatment Upcoming Encounters Date Type Department Care Team (Late st Contact Info) Description 10/22/2024 1:00 PM EST Office Visit [facility] ADULT DENTAL [address] [place], [place] [phone] Claudette Soni [address] [place] [address] documented as of this encounter Goals Goal Patient Goal Type Associated Problems Recent Progress Patient-Stated? Author Patient will adhere to medication regimen General No Mary Moreland documented as of this encounter Visit Diagnoses Not on filedocumented in this encounter Additional Health Concerns Assessment Noted Time PHQ-9 Depression Total Score: 18 024 10:36 AM EDT documented as of this encounter Care Teams Pan Puller Relationship Specialty Start Date End Date Haily Robb FNP [address] [place] [id number] PCP - General Family Medicine 05/01/22 documented as of this encounter
--- OUTSIDE RECORDS SUMMARY | 2024-10-13 09:54 | XMS_ITS | Encounter Summary ---
Author Organization [employer] Address [address] [facility] [address] 7[address] [place] [address] Care Team Providers Care Concrete Journeyman Name Role Phone [place] [facility] Primary Care Provider [phone] Reason for Visit * Reason Onset Date Comments Medication Question 08/24/2022 Encounter Details Date Type Department Care Team ([facility] st Contact Info) Description 08/24/2022 Telephone [facility] MED[facility] [address] [place] [address] [facility] [address] [place] [address] Medication Question Social History Tobacco Use Types [...] suspected to have Coronavirus/COVID-19? No / Unsure 08/03/2022 1:44 PM EST documented as of this encounter Miscellaneous Notes * Telephone Encounter - Haydee Mancini - 08/24/2022 12:04 PM EST Tc from pt requesting a call back. States went to orange picker machine operator his medication and they gave him vitamin C and he would like to know if he should be taking them again . Please call to clarify. documented in this encounter Plan of Treatment Upcoming Encounters Date Type Department Care Team (Late st Contact Info) Description 10/22/2024 1:00 PM EST Office Visit [facility] ADULT DENTAL [address] [place] [address] Kailash Soniaris [address] [place] [address] documented as of this encounter Visit Diagnoses Not on filedocumented in this encounter Care Teams Concrete Journeyman Relationship Specialty Start Date End Date Haily Robb FNP [address] [place] [address] PCP - General Family Medicine 05/01/22 documented as of this encounter
--- OUTSIDE RECORDS SUMMARY | 2024-10-13 09:54 | XMS_ITS | Encounter Summary ---
Author Organization [employer] Address [address] [facility] [address] [facility] [address] 7[address] [place] [address] Care Team Providers Care Conductor Yard Name Role Phone [place] [facility] Primary Care Provider [phone] Reason for Visit * Reason Comments Med Refill Encounter Details Date Type Department Care Team (Late Contact Info) Description 01/01/2023 Refill [facility] MEDICINE [address] [place], [place] [phone] [facility] [address] [place] [address] Chronic sinusitis, unspecified location Social History Tobacco Use Types Packs/Day Years [...] suspected to have Coronavirus/COVID-19? No / Unsure 12/15/2022 11:00 AM EDT documented as of this encounter Plan of Treatment Upcoming Encounters Date Type Department Care Team (Late Contact Info) Description 10/22/2024 1:00 PM EST Office Visit [facility] ADULT DENTAL [address] [place] [address] Claudette Soni [address] [place] [address] documented as of this encounter Visit Diagnoses Diagnosis Chronic sinusitis, unspecified location documented in this encounter Additional Health Concerns Assessment Noted Time PHQ-9 Depression Total Score: 0 11/03/19 23 10:32 AM EST documented as of this encounter Care Teams Conductor Yard Relationship Specialty Start Date End Date Haily Robb FNP [address] [place] [address] PCP - General Family Medicine 05/01/22 documented as of this encounter
--- OUTSIDE RECORDS SUMMARY | 2024-10-13 09:54 | XMS_ITS | Encounter Summary ---
Author Organization [employer] Address [address] [facility] [address] [address] 7[address] [place] [address] Care Team Providers Care Business Services Coordinator Name Role Phone [place] [facility] Primary Care Provider [phone] Reason for Visit * Reason Onset Date Comments Triage 09/20/2022 Encounter Details Date Type Department Care Team ([facility] st Contact Info) Description 09/20/2022 Telephone [facility] MEDICINE [address] [place], [place] [phone] [facility] [address] [place] [address] Triage Social History Tobacco Use Types Packs/Day Years Used Date Smoking Tobacco: Every Day Cigarettes Smokeless Tobacco: Never Alcohol Use Standard Drinks/Week [...] suspected to have Coronavirus/COVID-19? No / Unsure 09/15/2022 12:05 PM EST documented as of this encounter Miscellaneous Notes * Telephone Encounter - Gisela Onofre RN - 09/20/2022 11:55 AM EST Triage call with [facility] [place] [id number] Pt reports an area on back that is very itchy. Pt denies rash, redness, bumpy surface or any other identifying difference from dry skin. Pt is given home care advise, apply moisturizing cream to thatarea, and Hydrocortisone cream for itchiness and Pt agreed. Pt agreed with disposition and will call back if no results from home care. Protocol Used: Itching - Localized (Adult) Protocol-Based Disposition: Home Care Positive Triage Question: * Mild localized itching * All higher-acuity triage questions were negative Care Advice Discussed: * Reassurance and Education - Itching * Don't Scratch * Wash off Irritants * Ice for Itching That Gets Worse * Hydrocortisone Cream for Itching * Antihistamine for Itching * Antihistamine Medicines - Extra Notes and Warnings * Reasons To Call Back - Looks infected (e.g., spreading redness, red streak, pus) - Itching becomes severe - Itching lasts over 7 days - You become worse * Telephone Encounter - Rosanna Rodriguez - 09/20/2022 10:36 AM EST Symptom: Itching - No Rash Outcome: Schedule an appointment to be seen within 24 hours Reason: No high acuity concerns reported by caller ICELANDIC SPEAKER The caller accepted this outcome documented in this encounter Plan of Treatment Upcoming Encounters Date Type Department Care Team (Late st Contact Info) Description 10/22/2024 1:00 PM EST Office Visit [facility] ADULT DENTAL [address] [place] [address] Zachariah, Claudette [address] [place] [address] documented as of this encounter Visit Diagnoses Not on filedocumented in this encounter Care Teams Business Services Coordinator Relationship Specialty Start Date End Date Haily Robb FNP [address] [place] [address] PCP - General Family Medicine 05/01/22 documented as of this encounter
--- OUTSIDE RECORDS SUMMARY | 2024-10-13 09:54 | XMS_ITS | Encounter Summary ---
Author Organization [email or web address] Address [address] [address] [place] [address] Care Team Providers Care Paper Reclaiming Machine Operator Name Role Phone Clarisse [facility] Primary Care Provider [phone] Reason for Visit * Reason Onset Date Comments Results 03/16/2023 Encounter Details Date Type Department Care Team ([facility] st Contact Info) Description 03/16/2023 Telephone [facility] MEDICINE [address] [place], [place] [phone] [facility] [address] [place] [address] Results Social History Tobacco Use Types Packs/Day Years Used Date Smoking Tobacco: Every Day Cigarettes Passive Smoke Exposure: Never Smokeless Tobacco: Never Alcohol Use Standard Drinks/Week Comments Never 0 (1 standard drink = 0.6 oz pur e alcohol) Depression Answer Date Recorded Patient Health Questionnaire-9 Score 0 01/25/2023 Depression Answer Date Recorded Patient Health Questionnaire-2 Score 0 01/25/2023 Sex and Gender Information Value Date Recorded [...] Telephone Encounter - Ramon Monk RN - 03/20/2023 5:00 PM EDT Pt. Is calling back for las which was completed in February. Pt. Informed that labs were normal. Pt. Verbally agreed and understood. * Telephone Encounter - Claudette Ashley - 03/20/2023 4:46 PM EDT Tc from pt returning call regarding message below. * Telephone Encounter - Ramon Monk RN - 03/20/2023 4:06 PM EDT Return T/C to [phone] for below message, No answer. LVM to call back on [phone]. * Telephone Encounter - Kelli Boucher - 03/16/2023 2:04 PM EDT Tc from pt requesting a call in regards to results to recent lab orders. Please contact pt at [phone] (Albanian speaker) documented in this encounter Plan of Treatment Upcoming Encounters Date Type Department Care Team (Late st Contact Info) Description 10/22/2024 1:00 PM EST Office Visit [facility] ADULT DENTAL [address] [place], [place] [phone] Kailash Soniaris [address] [place] [address] documented as of this encounter Visit Diagnoses Not on filedocumented in this encounter Additional Health Concerns Assessment Noted Time PHQ-9 Depression Total Score: 0 01/26/20 23 3:38 PM EDT documented as of this encounter Care Teams Paper Reclaiming Machine Operator Relationship Specialty Start Date End Date Haily Robb FNP [address] [place] [phone] PCP - General Family Medicine 05/01/22 documented as of this encounter
--- OUTSIDE RECORDS SUMMARY | 2024-10-13 09:54 | XMS_ITS | Encounter Summary ---
Author Organization [employer] Address [address] [facility] [address] 7t [place] [address] Care Team Providers Care Supply Officer Name Role Phone Clarisse [facility] Primary Care Provider [phone] Reason for Visit * Reason Onset Date Comments Nurse Triage 02/16/2023 Encounter Details Date Type Department Care Team ([facility] st Contact Info) Description 02/16/2023 Telephone [facility] MEDICINE [address] [place] [address] [facility] [address] [place] [address] Nurse Triage Social History Tobacco Use Types [...] suspected to have Coronavirus/COVID-19? No / Unsure 02/15/2023 11:51 AM EDT documented as of this encounter Miscellaneous Notes * Telephone Encounter - Ramon Monk RN - 02/23/2023 2:49 PM EDT T/C to [phone] through [employer] interpreters id - [id number] for below message, pt. Verbally agreed and understood. * Telephone Encounter - Angela Whitman LPN - 02/16/2023 2:48 PM EDT Triage call returned to patient via [employer] Pepper Cutter [phone]. Patient called with concerns of Left eye burning and tearing at times with blurred vision. No irritant or object in eye at this time. Patient reports that he was seen some time ago in [facility] [place] and was given order to obtain eye drops for dry eye. He is angry that he had to pay for them out of pocket and that they did not help. Patient requesting specifically a referral and declines appts. in [facility] or with Team providers later in the month. Patient put on the phone who reiterated all of the above. Team Nurses tasked tofollow with PCP with patient request and follow with patient. Protocol Used: Eye - Red Without Pus (Adult) Protocol-Based Disposition: See in Office or Video Visit Today Override (Final) Disposition: Refer to Specialist Override Reason: Caller refused suggested disposition Override Notes: Patient seen in [facility] and was told to use eye drops several months ago. Patient requesting only referral to Automobile Engine Assembler. Video visit not offered Positive Triage Question: * Patient wants to be seen * All higher-acuity triage questions were negative Care Advice Discussed: * Reasons To Call Back - Yellow or green pus (discharge) from eye occurs - You become worse * Telephone Encounter - Akua Medley - 02/16/2023 2:16 PM EDT Symptoms: Vision Loss or Change, Eye Redness Without Pus or Discharge Outcome: Talk to a nurse or provider within 15 minutes Reason: Eye pain The caller accepted this outcome Patient speaks telugu documented in this encounter Plan of Treatment Upcoming Encounters Date Type Department Care Team (Late st Contact Info) Description 10/22/2024 1:00 PM EST Office Visit [facility] ADULT DENTAL [address] [place] [address] Kailash Soniaris [address] [place] [address] documented as of this encounter Visit Diagnoses Not on filedocumented in this encounter Additional Health Concerns Assessment Noted Time PHQ-9 Depression Total Score: 0 01/26/20 23 3:38 PM EDT documented as of this encounter Care Teams Supply Officer Relationship Specialty Start Date End Date Haily Robb FNP [address] [place] [address] PCP - General Family Medicine 05/01/22 documented as of this encounter
--- OUTSIDE RECORDS SUMMARY | 2024-10-13 09:54 | XMS_ITS | Encounter Summary ---
Author Organization [employer] Address [address] [place] [address] Care Team Providers Care Pharmacy Picking Technician Name Role Phone Clarisse [facility] Primary Care Provider [phone] Reason for Visit * Reason Onset Date Comments triage 11/10/2022 Encounter Details Date Type Department Care Team ([facility] st Contact Info) Description 11/10/[address] [facility] MED[facility]INE [address] [place], [place] [phone] [facility] [address] [place] [address] triage Social History Tobacco Use Types Packs/Day Years [...] suspected to have Coronavirus/COVID-19? No / Unsure 11/02/2022 10:15 AM EST documented as of this encounter Miscellaneous Notes * Telephone Encounter - Gregoria Brooks RN - 11/10/2022 11:06 AM EST Call to John Ro, reports that since starting rosuvastatin for cholesterol has noticed that is retaining fluids in abdomen and bladder. Per pt feels that when voids is not fully emptying bladder. Per pt denies any pain, burning or cloudy urine. No odor. Per pt believes its interfering with tamsulosin rx. Per pt started rosuvastatin on 11/07/22. Per pt sx onset since then. Pt advised of disposition, PCP not in office. Pt agrees to come into [facility] for exam. Pt also advised to call urology for input as well. Will forward to PCP and team for follow up on any change to POC re: cholesterol med. Protocol Used: Medication Question Call (Adult) Protocol-Based Disposition: Callback or Video Visit by PCP Today Video visit offer not recorded Positive Triage Question: * Caller has NON-URGENT medicine question about med that PCP or specialist prescribed and triager unable to answer question * All higher-acuity triage questions were negative * Telephone Encounter - Ye Stark - 11/10/2022 10:46 AM EST Symptom: Medication Question Outcome: Schedule an urgent appointment (within 4 hours) or talk to a nurse or provider soon Reason: New prescription question The caller accepted this outcome speaks gambian documented in this encounter Plan of Treatment Upcoming Encounters Date Type Department Care Team (Late st Contact Info) Description 10/22/2024 1:00 PM EST Office Visit [facility] ADULT DENTAL [address] [place] [address] Zachariah, Claudette [address] [place] [address] documented as of this encounter Visit Diagnoses Not on filedocumented in this encounter Additional Health Concerns Assessment Noted Time PHQ-9 Depression Total Score: 0 11/03/19 10:32 AM EST documented as of this encounter Care Teams Pharmacy Picking Technician Relationship Specialty Start Date End Date Haily Robb FNP [address] [place] [address] PCP - General Family Medicine 05/01/22 documented as of this encounter
--- OUTSIDE RECORDS SUMMARY | 2024-10-13 09:54 | XMS_ITS | Encounter Summary ---
Author Organization [employer] Address [address] [place] [address] Care Team Providers Care Body Line Finisher Name Role Phone Dunmor [facility] Primary Care Provider [phone] Reason for Visit * Reason Comments Follow-up Encounter Details Date Type Department Care Team (Late st Contact Info) Description 10/10/2024 1:15 PM EST Office Visit [facility] MEDICINE [address], [place] [phone] Dunmor [facility] [address] [place] [address] Chronic pain of both knees (Primary Dx); Polyneuropathy; Anxiety due to invasive procedure Social History Tobacco Use Types Packs/Day Years [...] 20 10/10/2024 1:22 PM EST Oxygen Saturation - - Inhaled Oxygen Concentration - - Weight 65.8 kg (145 lb) 10/10/2024 1:22 PM EST Height 167.6 cm (5' 6 ) 10/10/2024 1:22 PM EST Body Mass Index 23.4 10/10/2024 1:22 PM EST documented in this encounter Plan of Treatment Upcoming Encounters Date Type Department Care Team (Late st Contact Info) Description 10/22/2024 1:00 PM EST Office Visit [facility] ADULT DENTAL [address] [place] [address] Claudette Soni [address] [facility] [place] [address] Scheduled Orders Name Type Priority Associated Diagnoses Orde r Schedule TSH W/Reflex to FT4 Lab Routine Polyneuropathy Expected: 10/10/2024 (Approximate), Expires: 10/10/2025 Hemoglobin A1c Lab Routine Polyneuropathy Expected: 10/10/2024 (Approximate), Expires: 10/10/2025 CBC auto differential Lab Routine Polyneuropathy Expected: 10/10/2024 (Approximate), Expires: 10/10/2025 documented as of this encounter Goals Goal Patient Goal Type Associated Problems Recent Progress Patient-Stated? Author Patient will adhere to medication regimen General No Mary Moreland documented as of this encounter Procedures Procedure Name Priority Date/Time Associated Diagnosis Comments XR KNEE 4+ VIEWS RIGHT Routine 10/10/2024 2:37 PM EST Chronic pain of both knees XR KNEE 4+ VIEWS LEFT Routine 10/10/2024 2:37 PM EST Chronic pain of both knees documented in this encounter Results * XR Knee 4+ Views Right (10/10/2024 2:37 PM EST) Anatomical Region Laterality Modality Lower Extremities, Knee Right Radiogra phic Imaging 10/10/2024 2:37 PM EST Narrative 10/10/2024 3:12 PM EST ? [facility] ?[address] ?[place] [address] ?XRay Report ? Signed ? Patient: Jr Ro,Jean ?MR#: ?? [id number] ? : 1970 ?Acct:[id number] ? Age/Sex: 54 / M ?ADM Date: 02/07/25 ? Loc: HO.CARD ? Attending : Pepper Balderrama MD ? Ordering Physician: Haily Robb ?? Date of Service: 10/10/24 ?? Procedure(s): XR knee RT 4V ?? Accession Number(s): [id number] ? cc: Haily Robb ? EXAMINATION: ?? [...] DD/ 1437 ? TD/TT: 10/10/24 1502 ? Die Filer: ? Procedure Note Marilyn, Image - 10/10/[address] [address] XRay Report Signed Patient: John Fitzpatrick AMR#: [id number] : 1970Acct:[id number] Age/Sex: 54 / MADM Date: 10/10/24 Loc: [facility] Attending Dr: Pepper Balderrama MD Ordering Physician: Haily Robb Date of Service: 10/10/24 Procedure(s): XR knee RT 4V Accession Number(s): [id number] cc: Haily Robb [facility] EXAMINATION: XR KNEE, RIGHT CLINICAL INFORMATION: chronic knee pain COMPARISON: None available. TECHNIQUE: Four views of the right knee. FINDINGS: No acute fracture or dislocation. No lytic or blastic lesions. No suprapatellar bursa joint effusion. Preservation of the joint spaces. XR/XR knee RT 4V IMPRESSION: Normal right knee. Electronically signed by: Darryl Zaidi MD 10/10/2024 03:09 PM EST Dictated By: Darryl Rey MD Signed By: <Electronically signed by Darryl Lynn MDin OV> 10/10/24 1509 DD/ 1437 TD/TT: 10/10/24 1502 Die Filer: [facility] ORACLE APPLICATION ARCHITECT IMG XR PROCEDURES Final Resul t * XR Knee 4+ Views Left (10/10/2024 2:37 PM EST) Anatomical Region Laterality Modality Lower Extremities, Knee Left Radiogra phic Imaging 10/10/2024 2:37 PM EST Narrative 10/10/2024 3:12 PM EST ? [facility] ?[address] ?[place] [address] ?XRay Report ? Signed ? Patient: John Fitzpatrick ?MR#: ?? [id number] ? : 1970 ?Acct:[id number] ? Age/Sex: 54 / M ?ADM Date: 10/10/24 ? Loc: HO.CARD ? Attending Dr: Pepper Balderrama MD ? Ordering Physician: Haily Robb ?? Date of Service: 10/10/24 ?? Procedure(s): XR knee LT 4V ?? Accession Number(s): [id number] ? cc: Haily Robb ? EXAMINATION: ?? [...] DD/ 1437 ? TD/TT: 10/10/24 1502 ? Die Filer: ? Procedure Note Leonard Sanders - 10/10/2024 [facility] [address] [place] [address] XRay Report Signed Patient: John Fitzpatrick [facility]#: [id number] : 1970Acct:[id number] Age/Sex: 54 / MADM Date: 10/10/24 Loc: HO.CARD Attending Dr: Pepper Balderrama MD Ordering Physician: Haily RobbP Date of Service: 10/10/24 Procedure(s): XR knee LT 4V Accession Number(s): [id number] cc: Haily Robb [facility] EXAMINATION: XR KNEE, LEFT CLINICAL INFORMATION: chronic [...] 10/10/24 1510 DD/ 1437 TD/TT: 10/10/24 1502 Die Filer: [facility] IMG XR PROCEDURES Final Resul t documented in this encounter Visit Diagnoses Diagnosis Chronic pain of both knees- Primary Polyneuropathy Unspecified hereditary and idiopathic peripheral neuropathy Anxiety due to invasive procedure documented in this encounter Additional Health Concerns Assessment Noted Time PHQ-9 Depression Total Score: 0 10/10/19 25 1:23 PM EST documented as of this encounter Care Teams Body Line Finisher Relationship Specialty Start Date End Date Haily Robb FNP [address] [place] [address] PCP - General Family Medicine 05/01/22 documented as of this encounter
--- OUTSIDE RECORDS SUMMARY | 2024-10-13 09:54 | XMS_ITS | Encounter Summary ---
Author Organization [employer] Address [address] [place] [address] Care Team Providers Care Seamless Hosiery Knitter Name Role Phone Haily Robb COMPLIANCE CONSULTANT Primary Care Provider [phone] Reason for Visit * Reason Comments Med Refill Encounter Details Date Type Department Care Team (Late st Contact Info) Description 04/02/2023 Refill [facility] [address] [place] [address] Hollis Rutledge MD [address] [place] [address] Social History Tobacco Use Types Packs/Day Years [...] Description 10/22/2024 1:00 PM EST Office Visit [facility] ADULT DENTAL [address] [place] [address] Claudette Soni [address] [place] [address] documented as of this encounter Visit Diagnoses Not on filedocumented in this encounter Additional Health Concerns Assessment Noted Time PHQ-9 Depression Total Score: 0 01/26/20 23 3:38 PM EDT documented as of this encounter Care Teams Seamless Hosiery Knitter Relationship Specialty Start Date End Date Haily oRbb FNP [address] [place] [address] PCP - General Family Medicine 05/01/22 documented as of this encounter
--- OUTSIDE RECORDS SUMMARY | 2024-10-13 09:54 | XMS_ITS | Encounter Summary ---
Author Organization [employer] Address [address] [place] [address] Care Team Providers Care Energy Risk Management Analyst Name Role Phone Clarisse Haily CORNELL Primary Care Provider [phone] Encounter Details Date Type Department Care Team (Latest Contact Info) Description 06/01/2022 Abstract [facility] CONVERSIONS Dental, Provider, DDS Social History [...] Description 10/22/2024 1:00 PM EST Office Visit [facility] ADULT DENTAL [address] [place] [address] Zachariah, Claudette [address] [place] [address] documented as of this encounter Visit Diagnoses Not on filedocumented in this encounter Care Teams Energy Risk Management Analyst Relationship Specialty Start Date End Date Haily Robb FNP [address] [place] [address] PCP - General Family Medicine 05/01/22 documented as of this encounter
--- OUTSIDE RECORDS SUMMARY | 2024-10-13 09:54 | XMS_ITS | Encounter Summary ---
Author Organization [employer] Address [address] [place] [address] Care Team Providers Care Senior Sales Executive Name Role Phone [facility] Primary Care Provider [phone] Reason for Visit * Reason Comments Med Refill Encounter Details Date Type Department Care Team ([facility] st Contact Info) Description 08/28/[address] [facility] MEDICINE [address] [place], [place] [phone] [facility] [address] [place] [address] Mixed anxiety and depressive disorder Social History [...] PM EST Office Visit [facility] ADULT DENTAL [address] [place] [address] Zachariah, Claudette [address] [place] [address] documented as of this encounter Goals Goal [...] documented as of this encounter Care Teams Senior Sales Executive Relationship Specialty Start Date End Date Haily Robb FNP [address] [place] [address] PCP - General Family Medicine 05/01/22 documented as of this encounter
--- OUTSIDE RECORDS SUMMARY | 2024-10-13 09:54 | XMS_ITS | Encounter Summary ---
Author Organization [employer] Address [address] [place] [address] Care Team Providers Care Valve Assembler Name Role Phone Haily Robb BENDING SHED WORKER Primary Care Provider [phone] Reason for Visit * Reason Comments Med Refill Encounter Details Date Type Department Care Team (Late st Contact Info) Description 04/02/2023 Refill [facility] MEDICINE [address] [place] [address] Juanjose Barton MD [address] [place] [address] Chronic pruritus Social History Tobacco Use Types Packs/Day Years [...] Description 10/22/2024 1:00 PM EST Office Visit [facility] ADULT DENTAL [address] [place] [address] Claudette Soni [address] [place] [address] documented as of this encounter Visit Diagnoses Diagnosis Chronic pruritus documented in this encounter Additional Health Concerns Assessment Noted Time PHQ-9 Depression Total Score: 0 01/26/20 23 3:38 PM EDT documented as of this encounter Care Teams Valve Assembler Relationship Specialty Start Date End Date Haily Robb FNP [address] [place] [address] PCP - General Family Medicine 05/01/22 documented as of this encounter
== END 2024-10-10 00:01 | disposition home or self-care (01) ==
LOC: HO.XRAY
PROVIDERS: Visit Provider Registered Nurse
DX: M25.561 Pain in right knee (principal); M25.562 Pain in left knee; G89.29 Other chronic pain
CPT/HCPCS: 73564

== ENCOUNTER → 2024-10-10 14:37 | Outpatient (BNV) | payer MEDICAID, SELFPAY | PROVIDERS: Visit Provider Radiology Diagnostic Radiology | DX: M25.561 Pain in right knee (principal); M25.562 Pain in left knee | CPT/HCPCS: 73564 ==

== ENCOUNTER → 2024-10-29 13:51 | Outpatient (REF) | payer MEDICAID, SELFPAY ==
--- NOTE | 2024-10-29 13:55 | CA_ITS ---
Transthoracic Echocardiogram Patient (Last, First, Middle): John Fitzpatrick A Gender: Male Date of : 1970 Age: 54 Procedure Date: 10/29/2024 Procedure Type: Transthoracic Echocardiogram Location: OP Height: 165.1 cm Weight: 63.5 kg BSA: 1.70 m2 Heart Rate: bpm BP: 110 / 76 mmHg Business Practices Officer: ANTONIA Referring MD: Pepper Balderrama MD Symptoms: B/L EDEMA Study Quality: Adequate ECG Rhythm: Sinus Conclusions: - The left ventricular systolic function is normal. The calculated ejection fraction is 64% by biplane method. - No obvious valvular pathology seen on this study. Findings Left Ventricle Normal left ventricular cavity size. There is normal left ventricular wall thickness. The left ventricular systolic function is normal. The calculated ejection fraction is 64% by biplane method. There is no evidence of regional wall motion abnormalities. Diastolic function is normal for age. Right Ventricle Normal right ventricular cavity size and systolic function. Atria Both atria are normal in size. Aortic Valve There is a normal trileaflet aortic valve. There is no aortic valve stenosis. There is trace (trivial) aortic valve regurgitation. Mitral Valve The mitral valve appears normal. There is trace mitral valve regurgitation. There is no mitral valve stenosis. Pulmonic Valve The pulmonic valve is likely normal. Tricuspid Valve There is trace tricuspid valve regurgitation. There is no evidence of pulmonary hypertension. Great Vessels The asc aorta is normal in size. Venous The inferior vena cava is normal in size and collapses greater than 50% with inspiration. Pericardium/Pleural There is no evidence of pericardial effusion. Prior Study Comparison No prior study available for comparison. Recommendations, Care & Conclusions No obvious valvular pathology seen on this study. Measurements 2D Linear Measurements IVSd: 0.74 0.6-0.9/0.6-1.0 cm LVIDd: 4.61 3.9-5.3/4.2-5.9 cm LVIDd Index: 2.71 2.4-3.2/2.2-3.1 cm/m2 LVIDs: 3.30 2.0-3.6 cm LVPWd: 0.92 0.7-1.1 cm LA Diam: 3.00 2.7-3.8/3.0-4.0 cm LAIDs Index: 1.76 1.5-2.3 cm/m2 LV Mass: 153.97 67-162/88-224 g LV Mass Index: 90.57 43-95/49-115 g/m2 LVOT Diam: 2.00 3.0+(-)1.3 cm 2D Systolic Function EF 4C: 60.10 >55% EF 2C: 66.30 >55% EF BiP: 63.70 >55% Mitral Valve MV Pk E: 0.75 MV PK A: 0.75 MV Decel Time: 236.00 E/A: 1.00 E'Lateral: 10.10 E'Medial: 8.05 E/E' Med: 9.30 E/E' Lat: 7.40 PHT: 69.00 MVA PHT: 3.19 Decel Cuming: 3.16 Aortic Valve AoV Pk Michael: 1.26 AoV Mn Michael: 0.84 AoV VTI: 0.26 AoV Pk Grad: 6.00 Aov Mn Grad: 3.00 ROSY Cont.VTI: 2.64 LVOT LVOT Pk Michael: 1.11 LVOT Mn Michael: 0.68 LVOT VTI: 0.22 LVOT Pk Grad: 5.00 LVOT Mn Grad: 2.00 LVOT Diam: 2.00 LVOT Area: 3.14 Diastolic Function MV Pk E: 0.75 MV Pk A: 0.75 E/A: 1.00 E'Medial: 8.05 E/E' Med: 9.30 E' Laterial: 10.10 E/E' Lat: 7.40 Right Ventricle TAPSE (mm): 23.20 TVS' Michael: 11.20 Tricuspid Valve RA Press: 3.00 Great Vessels Aorta Sinus of Valsalva: 2.94 2.0-3.[address] Ridge: 2.24 1.7-3.4 cm Ao Asc: 3.00 2.1-3.4 cm Updated in Other Vendor System with Status of Final Goyo Gallego MD electronically signed on 10/29/2024 3:25:50 PM with status of Final
--- OUTSIDE RECORDS SUMMARY | 2024-10-29 17:03 | XMS_ITS | Encounter Summary ---
Author Organization [employer] Address [address] [place] [address] Care Team Providers Care Lab Animal Technologist Name Role Phone [facility] Primary Care Provider [phone] Reason for Visit * Reason Comments Med Refill Encounter Details Date Type Department Care Team ([facility] st Contact Info) Description 07/08/2024 Refill [facility] [address] [place], [place] [phone] [facility] [address] [place] [address] Mixed anxiety and depressive disorder Social History [...] Care Team (Late st Contact Info) Description 04/24/2025 1:00 PM EDT Office Visit [facility] ADULT DENTAL [address] [place] [address] Zachariah, Claudette [address] [place] [address] documented as of this encounter Goals Goal [...] documented as of this encounter Care Teams Lab Animal Technologist Relationship Specialty Start Date End Date Haily Robb FNP [address] [place] [address] PCP - General Family Medicine 05/01/22 documented as of this encounter
--- OUTSIDE RECORDS SUMMARY | 2024-10-29 17:03 | XMS_ITS | Clinical Summary ---
Author Organization [employer] Address [address] [place] [address] Care Team Providers Care Daily Release And Dupe Printer Name Role Phone Haily Robb [facility] Primary Care Provider [phone] Allergies Active Allergy Reactions Criticality Noted Date [...] 60 tablet 2 05/09/20 24 2024 Discontinued Active Problems Problem Noted Date Diagnosed Date Normal oral exam 10/22/2024 Urinary retention 09/01/2024 Assessment & Plan (09/06/2024 [...] ? Established with therapy and psychiatry at [facility] ? ? No rash, fever, chills, [...] for anxiety sxs) that comes referred from [facility] for exacerbated anxiety in presence of [...] a good support system through his family, jew and recovery network, as well as having [...] to explore potential nerve damage due to terminal operations manager use of anxiolytics, even though John is on low dose medication. At this time is unclear if crawling/burning sensation on skin is solely due to medical and/or somatic presentation. However, sxs are causing significant psychological distress in patient. John was given information on how to reach out to [facility] BHI team and HC numbers for crisis. He was also encouraged [...] male 11/02/2022 Overview (11/02/2022): ?? Followed by [facility] urology Dr. Lux ?? subcutaneous testosterone injection [...] 02/22/2017 Overview (08/05/2023): ? ? Followed by [facility] ? ? Clonazepam PRN ? ? 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 ?? Pt [...] Encounters Date Type Department Care Team Description 10/28/2024 Telephone [facility] [address] [place] [address] [phone] Haily Robb FNP Telephone Call 10/28/2024 Refill [facility] [address] [place] [address] [phone] Haily Robb FNP 10/22/2024 1:00 PM EST Office Visit [facility] ADULT DENTAL [address] [place] [phone] Zachariah, Claudette Partial edentulism, unspecified edentulism class (Primary Dx); Dental calculus; Generalized gingival recession, moderate; Normal oral exam 10/14/2024 Telephone [facility] [address] [place] [address] [phone] Haily Robb FNP Results 10/10/2024 1:15 PM EST Office Visit [facility] [address] [place] [address] [phone] Haily Robb FNP Polyneuropathy (Primary Dx); Bilateral lower extremity edema; Ataxia; Chronic pain of both knees; Anxiety due to invasive procedure; Shortness of breath 10/10/2024 Travel 10/01/2024 Refill [facility] [address] [place] [address] [phone] Haily Robb FNP Mixed anxiety and depressive disorder 09/24/2024 2:40 PM EST Office Visit [facility] [address] [place] [address] [phone] Pepper Balderrama MD Bilateral lower extremity edema (Primary Dx) 09/16/2024 Telephone [facility] [address] [place] [address] [phone] Haily Robb FNP Durable Medical Equipment (Compression stockings) 09/12/2024 Telephone [facility] [address] [place] [address] Haily Robb FNP 09/02/2024 Telephone [facility] [address] [place] [address] [phone] Haily Robb FNP Durable Medical Equipment (Compression stockings) 09/01/2024 1:15 PM EST Office Visit [facility] [address] [place] [address] [phone] Hoa Dueñas NP Urinary retention (Primary Dx); Bilateral lower extremity edema 08/29/[address] [address] Leticia Rashid MA Chart Prep 08/28/2024 Refill [facility] [address] [place] [address] 16933 Haily Robb FNP Mixed anxiety and depressive disorder 08/19/[address] [address] Willow Mckeon, RN Results 08/18/2024 Orders Only [facility] [address] [place] [address] 52554 Haily Robb FNP Proteinuria, unspecified type (Primary Dx) 08/17/2024 Refill [facility] [address] [place] [address] 21114 Haily Robb FNP Mixed hyperlipidemia 08/15/2024 Telephone [facility] [address] [place] [address] [phone] Haily Robb FNP No Show (Patient no show HDF ) 08/15/2024 Telephone [facility] [address] [place] [address] 13909 Haily Robb FNP Appointment Request 08/14/2024 11:00 AM EST Office Visit [facility] [address] [place] [address] 11431 Rakan Mares MD Bilateral lower extremity edema (Primary Dx); JODY (generalized anxiety disorder) 08/14/2024 Orders Only [address] [address] Haily Robb FNP 08/14/[address] [address] Willow Mckeon, CHAGO Care Coordination 08/08/2024 1:00 PM EST Office Visit [facility] [address] [address] Haily Robb FNP Bilateral lower extremity edema (Primary Dx); Proteinuria, unspecified type; Nasal congestion 08/08/2024 Telephone [facility] [address] [address] Griselda Bonner, CHAGO EMR search Hx 08/05/[address] [address] Piyush Green MA Chart Prep 08/04/[address] [address] Haily Robb FNP Referral 08/02/2024 Orders Only GENERIC EXTERNAL DATA DEPARTMENT Provider, Generic External Data 07/30/[address] [address] Haily Robb FNP Hospital Follow-up 07/29/[address] [address] Haily Robb FNP from Last 3 Months Immunizations Name Administration [...] Cigarettes Q uit: 08/22/2023 Passive Smoke Exposure: Past Smokeless Tobacco: Never Tobacco Cessation:Counseling Given: Not Answered Alcohol Use Standard Drinks/Week [...] your housing situation today? I have tammy antonia 04/23/[address] you li [...] Sign Reading Time Taken Comments Blood Pressure 118/68 10/22/2024 1:06 PM EST Pulse 78 10/10/2024 1:22 PM [...] Description 04/24/2025 1:00 PM EDT Office Visit [facility] ADULT DENTAL [address] [place] [address] Zachariah, Claudette [address] [place] [address] Health Maintenance Due Date Last Done Comments CT Colonography 1968 Colonoscopy 1968 Colorectal Cancer Screening 1968 FIT DNA/Cologuard 1968 FIT 1968 FOBT 1968 Sigmoidoscopy 1968 DTaP/Tdap/Td Vaccines (1 - Tdap) 1987 Pneumococcal Vaccine: 50+ Years (1 of 1 - PCV) 2018 Hepatitis B Vaccines (2 of 2 - CpG 2-dose series) 12/14/2022 11/16/2022 Zoster Vaccines (2 of 2) 01/11/2023 11/16/2022 COVID-19 Vaccine ( season) 2024 04/27/2022, 04/27/2022, 08/16/2021, Additional history exists Influenza Vaccine (#1) 2024 Dental X-Ray: Bitewings 06/26/2024 06/25/2023 Dental Oral Exam 04/22/2025 10/22/2024, , 06/01/2022 Dental Prophylaxis 04/22/2025 10/22/2024, 0 04/17/2024, 06/25/2023, Additional history exists Alcohol/Substance Use Screening 04/23/2025 04/23/2024 SDOH Screening 04/23/2025 04/23/2024 Diabetes: Hemoglobin A1C 06/20/2025 024, 03/19/2024, 03/22/2023, Additional history exists Depression Screening 10/10/2025 10/10/2024, 10/10/19 Tobacco Screening 10/22/2025 10/22/2024 Dental X-Ray: Full Mouth 09/12/2026 09/11/2023, 06/04 Lipid Panel 03/19/2029 03/19/2024, 02/02, 11/06/2022, Additional history exists RSV Patients and Patients Aged 60 years or older (1 - 1-dose 75+ series) 2043 HIV Screening Completed 03/22/2023, 030 02/2023, 05/05/2021, Additional history exists Hepatitis C [...] to medication regimen General No Mary Moreland Procedures Procedure Name Priority Date/Time Associated Diagnosis Comments PERIODIC ORAL EVALUATION - ESTABLISHED PATIENT Routine 10/22/2024 1:00 PM EST INTRAORAL - PERIAPICAL EACH ADDITIONAL RADIOGRAPHIC IMAGE Routine 10/22/2024 1:00 PM EST Partial edentulism, unspecified edentulism class Dental calculus Generalized gingival recession, moderate INTRAORAL - PERIAPICAL EACH ADDITIONAL RADIOGRAPHIC IMAGE Routine 10/22/2024 1:00 PM EST Partial edentulism, unspecified edentulism class Dental calculus Generalized gingival recession, moderate INTRAORAL - PERIAPICAL EACH ADDITIONAL RADIOGRAPHIC IMAGE Routine 10/22/2024 1:00 PM EST Partial edentulism, unspecified edentulism class Dental calculus Generalized gingival recession, moderate CASE PRESENTATION, DETAILED AND EXTENSIVE TREATMENT PLANNING Routine 10/22/2024 1:00 PM EST Partial edentulism, unspecified edentulism class Dental calculus Generalized gingival recession, moderate ORAL HYGIENE INSTRUCTIONS Routine 10/22/2024 1:00 PM EST Partial edentulism, unspecified edentulism class Dental calculus Generalized gingival recession, moderate INTRAORAL - PERIAPICAL EACH ADDITIONAL RADIOGRAPHIC IMAGE Routine 10/22/2024 1:00 PM EST Partial edentulism, unspecified edentulism class Dental calculus Generalized gingival recession, moderate INTRAORAL - PERIAPICAL EACH ADDITIONAL RADIOGRAPHIC IMAGE Routine 10/22/2024 1:00 PM EST Partial edentulism, unspecified edentulism class Dental calculus Generalized gingival recession, moderate INTRAORAL - PERIAPICAL FIRST RADIOGRAPHIC IMAGE Routine 10/22/2024 1:00 PM EST Partial edentulism, unspecified edentulism class Dental calculus Generalized gingival recession, moderate PROPHYLAXIS - ADULT Routine 10/22/2024 1 :00 PM EST Dental calculus 11 I COMPOSITE FILLING Routine 12:00 AM EST XR KNEE 4+ VIEWS RIGHT Routine 2:37 [...] URINE, ROUTINE Routine 08/14/2024 12:00 AM EST VASC US LOWER EXTREMITY VENOUS DUPLEX BILATERAL Routine [...] URINE, ROUTINE Routine 08/02/2024 6:57 PM EST HEMOGLOBIN A1C Routine 06/20/2024 3:05 PM EDT Dizziness LIPID PANEL, STANDARD Routine 03/19/2024 9:34 AM EDT Episode of shaking PANORAMIC RADIOGRAPHIC IMAGE Routine 09/11/2023 1:00 PM EST INTRAORAL - COMPLETE SERIES OF RADIOGRAPHIC IMAGES Routine 06/25/2023 3:00 PM EDT Dental calculus Generalized gingival recession, moderate Missing teeth, acquired HEPATITIS C VIRAL RNA, QUANTITATIVE, REAL-TIME PCR [...] EST Narrative 10/10/2024 3:12 PM EST ? [facility] ?[address] ?[place] [address] ?XRay Report ? Signed ? Patient: John Fitzpatrick ?MR#: ?? [id number] ? : 1970 ?Acct:[id number] ? Age/Sex: 54 / M ?ADM Date: 10/10/24 ? Loc: HO.CARD ? Attending Dr: Pepper Balderrama MD ? Ordering Physician: Haily Robb ?? Date of Service: 10/10/24 ?? Procedure(s): XR knee RT 4V ?? Accession Number(s): [id number] ? cc: Haily Robb ? EXAMINATION: ?? [...] DD/ 1437 ? TD/TT: 10/10/24 1502 ? Predatory Animal Hunter: ? Procedure Note Leonard Sanders - 10/10/[address] [address] XRay Report Signed Patient: John Fitzpatrick AMR#: [id number] : 1970Acct:[id number] Age/Sex: 54 / MADM Date: 10/10/24 Loc: YOGESH Attending Dr: Pepper Balderrama MD Ordering Physician: [facility] Date of Service: 10/10/24 Procedure(s): XR knee RT 4V Accession Number(s): [id number] cc: [facility] EXAMINATION: XR KNEE, RIGHT CLINICAL INFORMATION: chronic [...] 10/10/24 1509 DD/ 1437 TD/TT: 10/10/24 1502 Predatory Animal Hunter: [facility] NETWORK OPERATIONS LEAD IMG XR PROCEDURES Final Resul t * XR Knee 4+ Views Left (10/10/2024 2:37 PM EST) Anatomical Region Laterality Modality Lower Extremities, Knee Left Radiogra phic Imaging 10/10/2024 2:37 PM EST Narrative 10/10/2024 3:12 PM EST ? [facility] ?[address] ?[place] [address] ?XRay Report ? Signed ? Patient: John Fitzpatrick A ?MR#: ?? [id number] ? : 1970 ?Acct:[id number] ? Age/Sex: 54 / M ?ADM Date: 02/07/25 ? Loc: HO.CARD ? Attending Dr: Pepper Balderrama MD ? Ordering Physician: Haily Robb ?? Date of Service: 10/10/24 ?? Procedure(s): XR knee LT 4V ?? Accession Number(s): [id number] ? cc: Haily Robb ? EXAMINATION: ?? [...] DD/ 1437 ? TD/TT: 10/10/24 1502 ? Predatory Animal Hunter: ? Procedure Note Leonard Sanders - 10/10/[address] [address] XRay Report Signed Patient: John Fitzpatrick AMR#: [id number] : 1970Acct:[id number] Age/Sex: 54 / MADM Date: 10/10/24 Loc: [facility] Attending Dr: Pepper Balderrama MD Ordering Physician: Haily RobbP Date of Service: 10/10/24 Procedure(s): XR knee LT 4V Accession Number(s): [id number] cc: Haily Robb [facility] EXAMINATION: XR KNEE, LEFT CLINICAL INFORMATION: chronic [...] by: Darryl Zaidi MD 10/10/2024 03:10 PM [facility] Dictated By: Darryl Rey MD Signed By: <Electronically signed by Darryl Lynn MDin OV> 10/10/24 1510 DD/ 1437 TD/TT: 10/10/24 1502 Predatory Animal Hunter: [facility] IMG XR PROCEDURES Final Resul t * (ABNORMAL) Protein Creatinine Ratio, Urine (08/14/2024 12:07 PM EST) Creatinine, Urine 175.97 mg/dL [facility] Protein, Total, Random Urine 41(H) <12 mg/dL [facility] Protein/Creati nine Ratio, Ur 0.23(H) <0.2 [facility] Comment:The spot urine prote in:creatinine ratio may increase to 0.3during normal . 08/14/2024 12:0 7 PM EST 08/14/2024 1:13 PM EST [facility] LAB URINE ORDERABLES Final Re sult [facility] [address] [place] [address] [phone] * (ABNORMAL) Urinalysis, Complete, with Reflex to Culture (08/14/2024 12:07 PM EST) Only the most recent of2 resultswithin the time period is included. Color Urine Yellow [facility] Appearance Urine Cloudy [facility] PH 6.0 5.0 - 9.0 [facility] Glucose Urine UA Negative Negative mg/dL [facility] Urine Blood Negative Negative [facility] Specific [place] - Urine 1.020 1.005 - 1.025 [facility] Urine Protein 30 (1+)(A) Neg-Trace mg/dL [facility] Urine Ketones Trace Negative mg/dL [facility] Nitrite Urine Negative Negative [facility] Leukocyte Esterase Urine Trace(A) Negative [facility] RBC Urine 0-2 0 - 2 /HPF [facility] Urine WBC 6-10(A) 0 - 5 /HPF [facility] Urine Squamous Epithelial Cell 0-2 0 - 2 /HPF [facility] Urine Bacteria None Seen None Seen [facility] Hyaline Casts, Urine 0-2 0 - 2 /LPF [facility] Urine 08/14/2024 12:0 7 PM EST 08/14/2024 1:13 PM EST Narrative [facility] - 08/14/2024 2:00 PM EST Urine, Clean Catch [facility] LAB URINE ORDERABLES Final Re sult [facility] [address] [place] [address] [phone] * (ABNORMAL) Comprehensive Metabolic Panel (08/14/2024 12:07 PM EST) Only the most recent of2 resultswithin the time period is included. Sodium 141 135 - 145 mmol/L [facility] Potassium 3.8 3.3 - 5.1 mmol/L [facility] Chloride 101 96 - 108 mmol/L [facility] Carbon Dioxide 30(H) 22 - 29 mmol/L [facility] Anion Gap 14 12 - 20 [facility] Urea Nitrogen (BUN) 13 9 - 16 mg/dL [facility] Creatinine, Serum 0.95 0.5 - 1.4 mg/dL [facility] Estimated Glomerular Filt Rate >60 [facility] Comment:Chronic Kidney Disea se: Estimated GFR < 60 mL/min/1.39k5[place]e Kidney Disease: Estimated GFR < 15 mL/min/1.73m2 Glucose 118(H) 60 - 115 mg/dL [facility] Calcium 10.1 8.4 - 10.2 mg/dL [facility] Bilirubin, Total 1.0 0.0 - 1.0 mg/dL [facility] Aspartate Amino Transferase 42(H) 5 - 37 U/L [facility] Alanine Aminotransferase 42(H) 0 - 40 U/L [facility] Total Protein 8.1(H) 6.5 - 8.0 g/dL [facility] Albumin Level 4.8 3.5 - 5.0 g/dL [facility] Alkaline Phosphatase 56 39 - 117 U/L [facility] Blood Venous blood specimen / Unknown 08/14/2024 12:07 PM EST 08/14/2024 1:13 PM EST [facility] NETWORK OPERATIONS LEAD LAB BLOOD ORDERABLES Final Re sult Performing Organization Address [facility] Co de Phone Number [facility] [address] [place] [address] [phone] * Culture, Urine, Routine (08/14/2024 12:00 AM EST) Only the most recent of2 resultswithin the time period is included. Urine Urine specimen obtained by clean catch procedure / Unknown 08/14/2024 08/14/2024 Comment:UACC Narrative [facility] - 08/15/2024 11:40 AM EST Urine Culture No growth. Specimen Source: Urine clean catch [facility] LAB MICROBIOLOGY - GENERAL OR DERABLES Final Result Performing Organization Address [facility] Co de Phone Number [facility] [address] [place] [address] [phone] * VASC US Lower Extremity Venous Duplex Bilateral (08/02/2024 8:28 PM EST) 08/02/2024 8:28 PM EST Narrative [facility] - 08/02/2024 9:36 PM EST ? [facility] ?[address] ?[place] [address] ? Ultrasound Report ? Signed ? Patient: Jr Ro,Jean ?MR#: ?? [id number] ? : 1970 ?Acct:[id number] ? Age/Sex: 54 / M ?ADM Date: 11/30/24 ? Loc: HO.ED ? Attending Dr: ? Ordering Physician: Janes Busby ?? Date of Service: 08/02/24 ?? Procedure(s): US venous duplex LE BI ?? Accession Number(s): [id number] ? cc: Janes Busby; [facility] NETWORK OPERATIONS LEAD ? EXAMINATION: ?? US TRIPLEX LOWER EXTREMITY, [...] x ?? 0.6 x 1.9 cm. ? US/US venous duplex LE BI ?? IMPRESSION: ?? No evidence of deep venous thrombosis involving the bilateral lower ?? extremities. ? Electronically signed by: ??Marcial Ramirez MD ??08/02/2024 09:34 PM EST RP ? Dictated By: ?Marcial Ramirez MD ? Signed By: ?<Electronically signed by Marcial Ramirez MD in OV> ? 08/02/242133 ? DD/ 27 ? TD/TT: 08/02/242040 ? Predatory Animal Hunter: AP ? Procedure Note Leonard Sanders - 08/02/[address] [address] Ultrasound Report Signed Patient: John Fitzpatrick AMR#: [id number] : 1970Acct:[id number] Age/Sex: 54 / MADM Date: 08/02/24 Loc: HO.ED Attending Dr: Ordering Physician: Janes Busby Date of Service: 08/02/24 Procedure(s): US venous duplex LE BI Accession Number(s): [id number] cc: Janes Busby; [facility] EXAMINATION: US TRIPLEX LOWER EXTREMITY, BILATERAL CLINICAL [...] Marcial Ramirez MD 08/02/2024 09:34 PM EST Dictated By: Marcial Ramirez MD Signed By: <Electronically signed by Marcial Ramirez MD in OV> 08/02/242133 DD/ 27 TD/TT: 08/02/242040 Predatory Animal Hunter: [facility] External Provider CV VASC ULAR PROCEDURES Edited Result - Final [facility] [address] [place] [address] * (ABNORMAL) Drug Monitoring, Panel 1, Screen, Urine (08/02/2024 8:03 PM EST) Opiate Screen Urine Not Detected Not Detect [facility] Comment:Opiate cut-off is 30 0 ng/mL.Positive results are unconfirmed and should not be used fornon-medical purposes. Barbiturates, Urine Not Detected Not Detect [facility] Comment:Barbiturate cut-off is 200 ng/mL.Positive results are unconfirmed and should not be used fornon-medical purposes. Phencyclidine Screen Urine Not Detected Not Detect [facility] Comment:Phencyclidine cut-of f is 25 ng/mL.Positive results are unconfirmed and should not be used fornon-medical purposes. Amphetamine Screen Urine Not Detected Not Detect [facility] Comment:Amphetamine cut-off is 1000 ng/mL.Positive results are unconfirmed and should not be used fornon-medical purposes. Benzodiazepines Screen Urine POSITIVE(A) Not Detect [facility] Comment:Benzodiazepine cut-o ff is 200 ng/mL.Positive results are unconfirmed and should not be used fornon-medical purposes. Cocaine Screen Urine Not Detected Not Detect [facility] Comment:Cocaine cut-off is 3 00 ng/mL.Positive results are unconfirmed and should not be used fornon-medical purposes. Cannabinoid Screen Urine Not Detected Not Detect [facility] Comment:Cannabinoid cut-off is 50 ng/mL.Positive results are unconfirmed and should not be used fornon-medical purposes. Methadone Screen, Urine Positive(A) Not Detect ng/mL [facility] Comment:Methadone cut-off is 300 ng/mL.Positive results are unconfirmed and should not be used fornon-medical purposes. FENTANYL URINE Not Detected Not Detect [facility] Comment:Fentanyl cut-off is 1 ng/mL.Positive results are unconfirmed and should not be used fornon-medical purposes. Oxycodone Urine Screen Not Detected Not Detect ng/mL [facility] Comment:Oxycodone cut-off is 100 ng/mL.Positive results are unconfirmed and should not be used fornon-medical purposes. Buprenorphine Screen Not Detected Not Detect ng/mL [facility] Comment:Buprenorphine cut-of f is 5 ng/mL.Positive results are unconfirmed and should not be used fornon-medical purposes. 08/02/2024 8:03 PM EST 08/02/2024 8:07 PM EST us Generic External Data Provider LAB URINE ORDERAB LES Final Result [facility] [address] [place] [address] [phone] * XR KUB and Upright 2 Views (08/02/2024 7:24 PM EST) Anatomical Region Laterality Modality Radiographic Cecelia ging 08/02/2024 7:24 PM EST Narrative 08/02/2024 9:34 PM EST ? [facility] ?[address] ?[place] [address] ?XRay Report ? Signed ? Patient: John Fitzpatrick ?MR#: ?? [id number] ? : 1970 ?Acct:[id number] ? Age/Sex: 54 / M ?ADM Date: 08/02/24 ? Loc: HO.ED ? Attending Dr: ? Ordering Physician: Janes Busby ?? Date of Service: 08/02/24 ?? Procedure(s): XR KUB ?? Accession Number(s): [id number] ? cc: Janes Busby; Haily Robb [facility] ? EXAMINATION: ?? XR ABDOMEN KUB ? [...] by Marcial Ramirez MD in OV> ? 08/02/242130 ? DD/ ? TD/TT: 08/02/241941 ? Predatory Animal Hunter: AP ? Procedure Note Donotuseinterpreter, Image - 08/02/[address] [address] XRay Report Signed Patient: John Fitzpatrick AMR#: [id number] : 1970Acct:[id number] Age/Sex: 54 / MADM Date: 08/02/24 Loc: .ED Attending Dr: Ordering Physician: Janes Busby Date of Service: 08/02/24 Procedure(s): XR KUB Accession Number(s): [id number] cc: Janes Busby; [facility] NETWORK OPERATIONS LEAD EXAMINATION: XR ABDOMEN KUB CLINICAL INDICATION: Constipation [...] signed by Marcial Ramirez MD in OV> 08/02/241 DD/ 23 TD/TT: 08/02/241941 Predatory Animal Hunter: RICARDO [facility] External Provider IMG XR PROCEDURES Edited Result - Final * (ABNORMAL) CBC auto differential (08/02/2024 6:57 PM EST) White Blood Count 15.9(H) 4.8 - 10.8 X10*3/uL [facility] Red Blood Count 3.97(L) 4.60 - 5.80 X10*6/uL [facility] Hemoglobin 12.9(L) 14.0 - 18.0 g/dl [facility] Hematocrit 37.5(L) 42.0 - 52.0 % [facility] Mean Corpuscular Volume 94.5 80.0 - 98.0 fL [facility] Mean Corpuscular Hemoglobin 32.5 27.0 - 33.0 pg [facility] Mean Corpuscular HGB Conc 34.4 31.0 - 36.0 g/dl [facility] Red Cell Distribution Width 13.7 11.0 - 16.0 % [facility] Platelet Count 190 160 - 400 X10*3/uL [facility] Mean Platelet Volume 10.7 9.4 - 12.4 fL [facility] Neutrophils Percent Auto 87.7(H) 45 - 73 % [facility] Imm Gran Pct Auto 0.3 0.0 - 0.4 % [facility] Lymphocytes Percent Auto 6.2(L) 20 - 40 % [facility] Monocytes Percent Auto 5.0 2 - 11 % [facility] Eosinophils Percent Auto 0.6 0 - 4 % [facility] Basophils Percent Auto 0.2 0 - 2 % [facility] NRBC Pct Auto 0.0 0.0 - 0.2 /100WBC [facility] Neutrophils Absolute Auto 14.0(H) 2.0 - 8.3 x10*3/uL [facility] [facility] Imm Gran Abs Auto 0.05(H) 0.00 - 0.03 X10*3/uL [facility] Lymphocytes Absolute Auto 1.0(L) 1.2 - 4.9 X10*3/uL [facility] Monocytes Absolute Auto 0.8 0.1 - 1.2 X10*3/uL [facility] Eosinophils Absolute Auto 0.1 0.0 - 0.4 X10*3/uL [facility] Basophils Absolute Auto 0.0 0.0 - 0.2 X10*3/uL [facility] NRBC Abs Auto 0.000 0.0 - 0.012 X10*3/uL [facility] 08/02/2024 6:57 PM EST 08/02/2024 7:01 PM EST Generic External Data Provider LAB BLOOD ORDERAB LES Final Result Performing Organization Address [facility] Co de Phone Number [facility] [address] [place] [phone] * B Type Natriuretic Peptide (BNP) (08/02/2024 6:57 PM EST) B Type Natriuretic Peptide <10 <100 pg/mL [facility] Comment:For those patients w ho are being treated with Natrecor(nesiritide, recombinant BNP), BNP testing should beperformed at least two hours post treatment in order toensure that only endogenous levels of BNP are detected. 08/02/2024 6:57 PM EST 08/02/2024 7:01 PM EST Generic External Data Provider LAB BLOOD ORDERAB LES Final Result Performing Organization Address [facility] Co de Phone Number [facility] [address] [place] [phone] * Hemoglobin A1c (06/20/2024 3:05 PM EDT) Hemoglobin A1c 5.7 <6.0 % [facility] Comment:Hemoglobin A1C Refer ence Range Adults: 4.8 - 6.0 % Non diabetic: < 6.0 % Goal: < 7.0 %Additional Action Suggested: > 8.0 %Note: Hemoglobin A1c results are invalid for patients with abnormal amounts of HbF. Blood transfusions may impact the HbA1c concentration in the patient sample. Estimated Average Glucose 117 mg/dL [facility] Comment:eAG = Estimated ave rage glucose which is %A1C expressed asaverage glucose, using the formula of the Z2X-MdtrbnoWchdemp Glucose study (ADAG), Diabetes Care, Vol.31,#8,2007 Blood Venous blood specimen / Unknown 06/20/2024 3:05 PM EDT 06/20/2024 4:21 PM EDT us [facility] LAB BLOOD ORDERABLES Final Resul t [facility] [address] [place] [phone] * Lipid Panel, Standard (03/19/2024 9:34 AM EDT) Triglycerides 66 <150 mg/dL [facility] Comment:Desirable Triglyceri de: less than 150 mg/dLBorderline High Triglyceride 150-199 mg/dLHigh Triglyceride: 200-499 mg/dLVery High Triglyceride: greater than or equal to 5OO mg/dL Cholesterol 112 <200 mg/dL [facility] Comment:Desirable Cholestero l: less than 200 mg/dLBorderline High Cholesterol: 200-239 mg/dLHigh Cholesterol: greater than 239 mg/dL LDL Cholesterol Calculated 58 <100 mg/dL [facility] Comment:Desirable LDL: less than 100 mg/dLNear Optimal/Above Optimal LDL: 110- 129 mg/dLBorderline High LDL: 130-159 mg/dLHigh LDL: 160-189 mg/dLVery High LDL: greater than or equal to 190 mg/dL HDL Cholesterol 41 >40 mg/dL [facility] Comment:Desirable HDL: great er than 40 mg/dL Note: This HDL assay may give artificially low results in patients with liver disease. Blood Venous blood specimen / Unknown 03/19/2024 9:34 AM EDT 03/19/2024 11:12 AM EDT us Roxana Camillegilbertdilshad HUNTER LAB BLOOD ORDERABLES Final R esult Performing Organization Address City/[facility]/ZIP Co de Phone Number [facility] [address] [place] [phone] * Hepatitis C Viral RNA, Quantitative, Real-Time PCR (03/22/2023 11:53 AM EDT) Pathologist [facility] Hepatitis C Viral Load <15 NOT DETECTED NOT DETECTED IU/mL [facility] HCV Log PCR <1.18 NOT DETECTED NOT DETECTED Log IU/mL [facility] Comment:This test was perfor med using Real-Time Polymerase ChainReaction.Reportable Range: 15 IU/mL to 100,000,000 IU/mL(1.18 Log IU/mL to 8.00 Log IU/mL).The analytical performance characteristics of thisassay have been determined by [employer].The modifications have not been cleared or approved bythe FDA. This assay has been validated pursuant to theCLIA regulations and is used for clinical purposes.For more information on this test, go to:http://education.[employer]it[employer]/faq/PTR31f9(This link is being provided for informational/educational purposes only.)THIS TEST WAS PERFORMED AT:[email or web address] [place] [id number] GONG MD Blood 03/22/2023 11:5 3 AM EDT 03/22/2023 1:32 PM EDT us Jessica Guillen NETWORK OPERATIONS LEAD LAB BLOOD ORDERABLES Final Res ult Performing Organization Address City/[facility]/ZIP Co de Phone Number [facility] [address] [place] [phone] * HIV-1 RNA, Quantitative, Real-Time PCR (03/22/2023 11:53 AM EDT) [facility] HIV RNA PCR Qn Copies NOT DETECTED NOT DETECTED copies/mL [facility] HIV RNA PCR Qn Log Copies NOT DETECTED NOT DETECTED [facility] Comment:Result Units: Log co pies/mLThis test was performed using Real-Time Polymerase ChainReaction.Reportable Range: 20 copies/mL to 10,000,000 copies/mL(1.30 log copies/mL to 7.00 log copies/mL).THIS TEST WAS PERFORMED AT:[email or web address] [place] [phone] GONG MD Blood Venous blood specimen / Unknown 03/22/2023 11:53 AM EDT 03/22/2023 1:32 PM EDT us Jessica Guillen NETWORK OPERATIONS LEAD LAB BLOOD ORDERABLES Final Res ult [facility] [address] [place] [phone] from Last 3 Months or Most Recently Relevant to Health Maintenance Insurance [facility] C3 DENTAL-[facility] MEDICAID STAND ADULT Care Teams Daily Release And Dupe Printer Relationship Specialty Start Date End Date Haily Robb FNP [address] [place] [phone] PCP - General Family Medicine 05/01/22
--- OUTSIDE RECORDS SUMMARY | 2024-10-29 17:03 | XMS_ITS | Encounter Summary ---
Author Organization [employer] Address [address] [facility] 7t [place] [address] Care Team Providers Care Steel Burner Name Role Phone Candler [facility] Primary Care Provider [phone] Reason for Visit * Reason Comments Med Refill Encounter Details Date Type Department Care Team ([facility] st Contact Info) Description 09/05/2022 Telephone [facility] MED[facility] [address] [place], [place] [phone] [facility] [address] [place] [address] Med Refill Social History Tobacco Use Types [...] - 09/06/2022 8:18 AM EST TC via P/I#[id number], explained to pt that his [facility] Provided pt the phone number for the [facility] site and encouraged him to call them for all refills of his Clonazepam. Pt thanked scientific writer and said he understood. * Telephone Encounter - Yessi Cannon RN - 09/05/2022 3:04 PM EST Note on 08/02/22: Medication request:CLONAZEPAM Last visit 06/27/22. You sent a refill in June, it was picked up 07/12/22. He was originally getting this elsewhere. Not sure what you'd like to do. If you'll now be prescribing, then would you like him on [employer]? documented in this encounter Plan of Treatment Upcoming Encounters Date Type Department Care Team (Late st Contact Info) Description 04/24/2025 1:00 PM EDT Office Visit [facility] ADULT DENTAL [address] [place] [address] Claudette Soni [address] [place] [address] documented as of this encounter Visit Diagnoses Diagnosis Other specified anxiety disorders documented in this encounter Care Teams Steel Burner Relationship Specialty Start Date End Date Haily Robb FNP [address] [place] [address] PCP - General Family Medicine 05/01/22 documented as of this encounter
--- OUTSIDE RECORDS SUMMARY | 2024-10-29 17:04 | XMS_ITS | Encounter Summary ---
Author Organization [employer] Address [address] [address] [place] [address] Care Team Providers Care Seam Rubbing Machine Operator Name Role Phone Clarisse [facility] Primary Care Provider [phone] Encounter Details Date Type Department Care Team [...] Description 04/24/2025 1:00 PM EDT Office Visit [facility] ADULT DENTAL [address] [place] [address] Zachariah, Claudette [address] [place] [address] documented as of this encounter Goals Goal Patient Goal Type Associated Problems Recent Progress Patient-Stated? Author Patient will adhere to medication regimen General Mary Chauhan documented as of this encounter Visit Diagnoses Not on filedocumented in this encounter Additional Health Concerns Assessment Noted Time PHQ-9 Depression Total Score: 0 10/10/19 25 1:23 PM EST documented as of this encounter Care Teams Seam Rubbing Machine Operator Relationship Specialty Start Date End Date Haily Robb FNP [address] [place] [address] PCP - General Family Medicine 05/01/22 documented as of this encounter
--- OUTSIDE RECORDS SUMMARY | 2024-10-29 17:04 | XMS_ITS | Encounter Summary ---
Author Organization [employer] Address [address] [place] [address] Care Team Providers Care Surgical Asst Name Role Phone [place] [facility] Primary Care Provider [phone] Reason for Visit * Reason Comments Med Refill Encounter Details Date Type Department Care Team (Late Contact Info) Description 01/01/2023 Refill [facility] MEDICINE [address] [place], [place] [phone] [facility] [address] [place] [address] Chronic sinusitis, unspecified location Social History Tobacco [...] Department Care Team (Late Contact Info) Description 04/24/2025 1:00 PM EDT Office Visit [facility] ADULT DENTAL [address] [place] [address] Claudette Soni [address] [place] [address] documented as of this encounter Visit Diagnoses Diagnosis Chronic sinusitis, unspecified location documented in this encounter Additional Health Concerns Assessment Noted Time PHQ-9 Depression Total Score: 0 11/03/19 23 10:32 AM EST documented as of this encounter Care Teams Surgical Asst Relationship Specialty Start Date End Date Haily Robb FNP [address] [place] [address] PCP - General Family Medicine 05/01/22 documented as of this encounter
--- OUTSIDE RECORDS SUMMARY | 2024-10-29 17:04 | XMS_ITS | Encounter Summary ---
Author Organization [employer] Address [address] [facility] 7t [place] [address] Care Team Providers Care Supervisor Shuttle Veneering Name Role Phone Clarisse [facility] Primary Care Provider [phone] Reason for Visit * Reason Onset Date Comments Nurse Triage 02/11/2024 Encounter Details Date Type Department Care Team ([facility] st Contact Info) Description 02/11/2024 Telephone [facility] MEDICINE [address] [place], [place] [phone] [facility] 230 [place] [address] Nurse Triage Social History Tobacco Use Types [...] with others, in a hotel, in a fci, living outside on the street, on a [...] the past 12 months, has t he [employer], gas, oil or water company threatened to [...] EDT Triage call returned to patient with [place] lang interpreter [id number]. Patient reports ongoing issue withleft eye and [...] and she would like him referred to [facility] Ball [facility]. No diagnosis in chart.Advised of [facility] for evaluation today. Lab [...] Reason: Other Override Notes: Being treated with construction specialist with appt coming in 03/11/24 Video [...] involuntary movements The caller accepted this outcome Latvian speaker documented in this encounter Plan of Treatment Upcoming Encounters Date Type Department Care Team (Late st Contact Info) Description 04/24/2025 1:00 PM EDT Office Visit [facility] ADULT DENTAL [address] [place] [address] Zachariah, Claudette [address] [place] [address] documented as of this encounter Goals Goal Patient Goal Type Associated Problems Recent Progress Patient-Stated? Author Patient will adhere to medication regimen General No Mary Moreland documented as of this encounter Visit Diagnoses Not on filedocumented in this encounter Additional Health Concerns Assessment Noted Time PHQ-9 Depression Total Score: 0 08/15/20 23 3:52 PM EST documented as of this encounter Care Teams Supervisor Shuttle Veneering Relationship Specialty Start Date End Date Haily Robb FNP [address] [place] [phone] PCP - General Family Medicine 05/01/22 documented as of this encounter
--- OUTSIDE RECORDS SUMMARY | 2024-10-29 17:04 | XMS_ITS | Encounter Summary ---
Author Organization [employer] Address [address] [facility] [address] [place] [address] Care Team Providers Care Chemical Handler Name Role Phone Clarisse [facility] Primary Care Provider [phone] Reason for Visit * Reason Onset Date Comments Results 10/14/2024 Encounter Details Date Type Department Care Team ([facility] st Contact Info) Description 10/14/2024 Telephone [facility] MED[facility] [address] [place], [place] [phone] [facility] 230 [place] [address] Results Social History Tobacco Use Types Packs/Day [...] encounter Miscellaneous Notes * Telephone Encounter - Ashley Headley MA - 10/14/2024 2:19 PM EST Result Communication Resulted Orders XR Knee 4+ Views Right [place] [address] XRay Report Signed Patient: John Fitzpatrick MR#: [id number] : 1970 Acct:[id number] Age/Sex: 54 / M ADM Date: 10/10/24 Loc: HO.CARD Attending Dr: Pepper Balderrama MD Ordering Physician: Haily Robb Date of Service: 10/10/24 Procedure(s): XR knee RT 4V Accession Number(s): [id number] cc: Haily Robb MACHINE SPREADER EXAMINATION: XR KNEE, RIGHT CLINICAL INFORMATION: chronic [...] Signed By: <Electronically signed by Darryl Lynn MD in OV> 10/10/24 1509 DD/ 1437 TD/TT: 10/10/24 1502 Railroad Inspector: 2:19 PM Results were successfully communicated with the patient and they acknowledged their understanding. * Telephone Encounter - Ashley Headley MA - 10/14/2024 2:19 PM EST ----- Message from [facility] sent at 10/13/2024 9:11 AM EST ----- Diarrhea.liz let patient know that nee xrays were negative/normal. Thank you! documented in this encounter Plan of Treatment Upcoming Encounters Date Type Department Care Team (Late st Contact Info) Description 04/24/2025 1:00 PM EDT Office Visit [facility] ADULT D[facility] [address] [place] [address] Zachariah Claudette [address] [place] [address] documented as of this encounter Goals Goal Patient Goal Type Associated Problems Recent Progress Patient-Stated? Author Patient will adhere to medication regimen General No Mary Moreland documented as of this encounter Visit Diagnoses Not on filedocumented in this encounter Additional Health Concerns Assessment Noted Time PHQ-9 Depression Total Score: 0 10/10/19 1:23 PM EST documented as of this encounter Care Teams Chemical Handler Relationship Specialty Start Date End Date ClarisseHaily molina FNP [address] [place] [address] PCP - General Family Medicine 05/01/22 documented as of this encounter
--- OUTSIDE RECORDS SUMMARY | 2024-10-29 17:04 | XMS_ITS | Encounter Summary ---
Author Organization [employer] Address [address] [facility] 7t [place] [address] Care Team Providers Care Cable Television Technician Name Role Phone Haily Robb FORMS ANALYST Primary Care Provider [phone] Reason for Visit * Reason Comments Med Refill Encounter Details Date Type Department Care Team ([facility] st Contact Info) Description 10/29/2023 Refill [facility] [address] [place], [place] [phone] Name, MD Collins [address] [place] [address] Chronic neck pain Social History Tobacco Use [...] with others, in a hotel, in a residential, living outside on the street, on a [...] the past 12 months, has t he [employer], gas, oil or water company threatened to [...] 04/24/2025 1:00 PM EDT Office Visit [facility] ADULT DENTAL [address] [place] [address] Zachariah, Claudette [address] [place] [address] documented as of this encounter Visit Diagnoses Diagnosis Chronic neck pain Cervicalgia documented in this encounter Additional Health Concerns Assessment Noted Time PHQ-9 Depression Total Score: 0 08/15/20 23 3:52 PM EST documented as of this encounter Care Teams Cable Television Technician Relationship Specialty Start Date End Date Haily Robb FNP [address] [place] [address] PCP - General Family Medicine 05/01/22 documented as of this encounter
--- OUTSIDE RECORDS SUMMARY | 2024-10-29 17:04 | XMS_ITS | Encounter Summary ---
Author Organization [employer] Address [address] [facility] 7t [place] [address] Care Team Providers Care Law Secretary Name Role Phone Clarisse [facility] Primary Care Provider [phone] Reason for Visit * Reason Onset Date Comments Appointment Request 10/08/2023 Encounter Details Date Type Department Care Team ([facility] st Contact Info) Description 10/08/2023 Telephone [facility] MEDICINE [address] [place], [place] [phone] [facility] [address] [place] [address] Appointment Request Social History Tobacco Use Types [...] with others, in a hotel, in a snf, living outside on the street, on a [...] gotten any better. Please contact pt at [phone] documented in this encounter Plan of Treatment Upcoming Encounters Date Type Department Care Team (Late st Contact Info) Description 04/24/2025 1:00 PM EDT Office Visit [facility] ADULT DENTAL [address] [place] [address] Zachariah, Claudette [address] [place] [address] documented as of this encounter Visit Diagnoses Not on filedocumented in this encounter Additional Health Concerns Assessment Noted Time PHQ-9 Depression Total Score: 0 08/15/20 23 3:52 PM EST documented as of this encounter Care Teams Law Secretary Relationship Specialty Start Date End Date Haily Robb FNP [address] [place] [address] PCP - General Family Medicine 05/01/22 documented as of this encounter
--- OUTSIDE RECORDS SUMMARY | 2024-10-29 17:04 | XMS_ITS | Encounter Summary ---
Author Organization [employer] Address [address] 7t [place] [address] Care Team Providers Care Corrections Cadet Name Role Phone [place] [facility] Primary Care Provider [phone] Reason for Visit * Reason Onset Date Comments Medication Question 01/16/2023 Encounter Details Date Type Department Care Team ([facility] st Contact Info) Description 01/16/2023 Telephone [facility] MEDICINE [address] [place], [place] [phone] [facility] [address] [place] [address] Medication Question Social History Tobacco Use Types [...] Description 04/24/2025 1:00 PM EDT Office Visit [facility] ADULT DENTAL [address] [place], [place] [phone] Zachariah, Claudette [address] [place], [place] [phone] documented as of this encounter Visit Diagnoses Not on filedocumented in this encounter Additional Health Concerns Assessment Noted Time PHQ-9 Depression Total Score: 0 11/03/19 23 10:32 AM EST documented as of this encounter Care Teams Corrections Cadet Relationship Specialty Start Date End Date Haily Robb FNP [address] [place] [address] PCP - General Family Medicine 05/01/22 documented as of this encounter
--- OUTSIDE RECORDS SUMMARY | 2024-10-29 17:04 | XMS_ITS | Encounter Summary ---
Author Organization [employer] Address [address] [facility] [address] 7[address] [place] [address] Care Team Providers Care Fruit Cutter Name Role Phone Clarisse [facility] Primary Care Provider [phone] Reason for Visit * Reason Onset Date Comments Medication Question 08/24/2022 Encounter Details Date Type Department Care Team ([facility] st Contact Info) Description 08/24/2022 Telephone [facility] MEDICINE [address] [place] [address] [facility] [address] [place] [address] Medication Question Social History Tobacco Use Types [...] requesting a call back. States went to pick pulling machine operator his medication and they gave him vitamin C and he would like to know if he should be taking them again . Please call to clarify. documented in this encounter Plan of Treatment Upcoming Encounters Date Type Department Care Team (Late st Contact Info) Description 04/24/2025 1:00 PM EDT Office Visit [facility] ADULT DENTAL [address] [place], [place] [phone] Claudette Soni [address] [place] [address] documented as of this encounter Visit Diagnoses Not on filedocumented in this encounter Care Teams Fruit Cutter Relationship Specialty Start Date End Date Haily Robb FNP [address] [place] [address] PCP - General Family Medicine 05/01/22 documented as of this encounter
--- OUTSIDE RECORDS SUMMARY | 2024-10-29 17:04 | XMS_ITS | Encounter Summary ---
Author Organization [employer] Address [address] [place] [address] Care Team Providers Care Lathe Scalper Operator Name Role Phone Clarisse Haily CORNELL Primary Care Provider [phone] Encounter Details Date Type Department Care Team (Latest Contact Info) Description 06/16/2020 Abstract [facility] CONVERSIONS Dental, Provider, DDS Social History [...] Description 04/24/2025 1:00 PM EDT Office Visit [facility] ADULT DENTAL [address] [place] [address] Zachariah, Claudette [address] [place] [address] documented as of this encounter Visit Diagnoses Not on filedocumented in this encounter Care Teams Lathe Scalper Operator Relationship Specialty Start Date End Date Haily Robb FNP [address] [place] [address] PCP - General Family Medicine 05/01/22 documented as of this encounter
--- OUTSIDE RECORDS SUMMARY | 2024-10-29 17:04 | XMS_ITS | Encounter Summary ---
Author Organization [employer] Address [address] [facility] 7t [place] [address] Care Team Providers Care Contracting Manager Name Role Phone Haily Robb Primary Care Provider [phone] Reason for Referral * Neurology (Routine) - Authorized Specialty Diagnoses / Procedures Referred By Jennifer kelsey Referred To Contact Diagnoses Polyneuropathy Procedures EMG Haily Robb FNP [address] [place] [address] Phone: tel: fax: [address] Phone: tel: fax: Referral ID Status Reason Start Date Expiration Date V isits Requested Visits Authorized [id number] Authorized 10/15/2024 10/15/2025 1 1 * Neurology (Routine) - Authorized Specialty Diagnoses / Procedures Referred By Contneva t Referred To Contact Diagnoses Polyneuropathy Procedures Nerve conduction test Haily Robb [facility] [address] [place] [address] Phone: tel: fax: [address] Phone: tel: fax: Referral ID Status Reason Start Date Expiration Date V isits Requested Visits Authorized [id number] Authorized 10/15/2024 10/15/2025 1 1 Reason for Visit * Reason Comments Follow-up Encounter Details Date Type Department Care Team (Latest Contact Info) Description 10/10/2024 1:15 PM EST Office Visit [facility] MEDICINE [address] [place] [address] Haily Robb FNP [address] [place] [address] Polyneuropathy (Primary Dx); Bilateral lower extremity edema; Ataxia; Chronic pain of both knees; Anxiety due to invasive procedure; Shortness of breath Social History Tobacco Use Types Packs/Day Years [...] 1:22 PM EST documented in this encounter Progress Notes * [facility], MECHANICAL CAD DRAFTER - 10/10/2024 1:15 PM EST SUBJECTIVE: John Ro is a 54 y.o. year old adult with HLD, hx of RODOLFO on methadone, anxiety/depression with somatic sx disorder and hypogonadism who presents for follow-up lower extremity edema . Patient has an extensive history of widely positive ROS and vague neurologic symptoms with extensive workup largely negative to date. He presents today with primary concern of persistent leg pain. Sharp bilateral lower extremity pain, needlelike sensation. He feels that his skin is lumpy . He states he is unable to fully extend his knees due to chronic pain. He had developed acute bilateral edema in August in the setting of a UTI. B/L Ultrasound negative for DVT. He has a history of proteinuria and was seen by nephrology who did not feel that his edema was related. He was unable to complete an echocardiogram ordered due to pain and anxiety. Symptoms did respond to increased dose of Lasix. L-spine xray 07/24/24--spondylosis L4 and L5-S1; was referred to physical therapy which he was unable to tolerate HPI 09/24/24-seen in walk-in center with Dr. Balderrama with persistent bilateral lower extremity edema. Lasix was increased to 40 mg twice daily with symptom improvement. 09/19/24-saw Dr. Hector [facility] nephrology for persistent proteinuria. Last note mentions positive P-ANCA with plan to repeat labs in 3 months however did not feel edema was related to kidneys. Renal function normal with minimal proteinuria 08/26-[facility] ED with acute lower extremity edema and UTI. Ultrasound negative for DVT. BNP within normal limits 07/2024--hospitalized at [facility] with AMS in setting of acute urinary retention and BPH. Labs includingTSH and creatinine kinase all WNL negative CT angio chest abdomen during hospitalization. 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 Trial of gabapentin 300mg t.I.d with Initial mild improvement however later unable to tolerate gabapentin due to dizzinessand self discontinued.Labs- CBC/B12/syphilis screen/HIV/ BMP 06/2023-Saw Dr. Maher in walk in center for odynophagia /dysphagia. Negative neck CT. Sx since resolved 05/14/23-Neurology eval Dr. Ramos. Negative EEG. Thought to be somaticization. Patient reports a family history of ?Parkinson's. Was unable to tolerate MRI due to anxiety - He has a history of headache and dizziness. Negative carotid artery ultrasound from 12/2021. Negative head CT scan in emergency department 10/2022; 07/2024 Social History Social History Narrative Tobacco Use: Former, quit 2023 ETOH: None Marijuana Use: None Other substance use: On methadone maintenance therapy. No hx of IVDU Current living environment: Lives with nephew, spends the day with wifee Children: 3 kids Employment/education: Sexually active: yes Partners are: control: Patient Active Problem List Diagnosis Helicobacter pylori gastritis Positive TB test Hyperlipidemia Methadone maintenance therapy patient ([facility]/HCC) Mixed anxiety and depressive disorder Renal cyst, left Submandibular lymphadenopathy Vitamin D deficiency Tobacco use Neck pain on left side Hypogonadism in male Scrotal pain Moderate somatic symptom disorder Opioid dependence in remission (CMS/[facility]) Odynophagia Chronic pruritus Dental calculus Generalized gingival recession, moderate Partial edentulism Epigastric pain Shortness of breath Nasal congestion Pain in both lower extremities Lumbar radiculopathy Urinary retention Bilateral lower extremity edema No past surgical history on file. Family History Problem Relation Name Age of Onset Diabetes Mother Heart disease Mother Other (diabetic retinopathy, cataract) Mother Colon cancer Neg Hx Prostate cancer Neg Hx Review of Systems Constitutional: Negative for activity change, diaphoresis, fatigue, fever and unexpected weight change. Eyes: Negative for visual disturbance. Respiratory: Negative for apnea, cough, chest tightness and shortness of breath. Cardiovascular: Negative for chest pain, palpitations and leg swelling. Gastrointestinal: Negative for abdominal pain and nausea. Neurological: Positive for tremors and weakness. Negative for dizziness, syncope, light-headedness and headaches. OBJECTIVE: Vitals: 10/10/24 1322 BP: 123/73 Pulse: 78 Resp: 20 Temp: 98 ??F (36.7 ??C) Physical Exam Constitutional: Appearance: Normal appearance. HENT: Head: Normocephalic. Right Ear: External ear normal. Left Ear: External ear normal. Nose: Nose normal. Eyes: Conjunctiva/sclera: Conjunctivae normal. Cardiovascular: Rate and Rhythm: Normal rate and regular rhythm. Heart sounds: Normal heart sounds. Pulmonary: Effort: Pulmonary effort is normal. Breath sounds: Normal breath sounds. Musculoskeletal: Right lower leg: No edema. Left lower leg: No edema. Comments: Lower extremity edema has resolved. Skin of bilateral lower extremities appears shiny, decreased hair growth, hyperpigmentation. Unable to tolerate light touch; hypersensitivity Pedal pulses palpable Knees: No overt deformity. Significant pain with palpation to posterior aspect. Unable to tolerate full extension. Skin: General: Skin is warm and dry. Capillary Refill: Capillary refill takes less than 2 seconds. Neurological: General: No focal deficit present. Mental Status: He is alert and oriented to person, place, and time. Psychiatric: Mood and Affect: Mood normal. Behavior: Behavior normal. ASSESSMENT/PLAN 1. Polyneuropathy (Primary) - PE limited d/t pain, although +distractibility - Sx characteristic of neuropathy--check NCT/EMG - Trial low dose evening amitriptyline - CBC/B12/syphilis screen/HIV/ BMP all previously neg/WNL - Will check thyroid - TSH W/Reflex to FT4; Future - Hemoglobin A1c; Future - CBC auto differential; Future - amitriptyline (Elavil) 10 MG tablet; Take 0.5 tablets (5 mg) by mouth at bedtime. Dispense: 15 tablet; Refill: 11 - TSH W/Reflex to FT4 - Hemoglobin A1c - CBC auto differential - Nerve conduction test; Future - EMG; Future - Nerve conduction test - EMG 2. Bilateral lower extremity edema - Improving with lasix-continue furosemide 40mg b.I.d - Patient will reschedule echocardiogram--premedicate for anxiety - PE suggests venous insufficiency - Continue to monitor 3. Ataxia - Referral to [facility] neurology - Patient does not feel he will be able to tolerate MRI (even open MRI with medication) d/t claustrophobia 4. Chronic pain of both knees - Baseline xrays - Follow up pending results - XR Knee 4+ Views Left; Future - XR Knee 4+ Views Right; Future - XR Knee 4+ Views Left - XR Knee 4+ Views Right 5. Anxiety due to invasive procedure - diazePAM (Valium) 5 MG tablet; Take 1 tablet by oral route 30 minutes before procedure Dispense: 2 tablet; Refill: 0 6. Shortness of breath Pulmonary-patient with intermittent complaint of shortness of breath. Chest x- ray from 07/2024 readas chronic interstitial lung disease with questionable mild interstitial edema versus airspace disease in right middle lung lobe. Had a normal PFT study 09/19/2024. Previously referred to pulmonology.Does not seem to have had initial appointment Follow Up: Current Outpatient Medications on File Prior to Visit Medication Sig Dispense Refill acetaminophen (Tylenol 8 Hour) 650 MG ER tablet TAKE 1 TABLET BY MOUTH EVERY 8 HOURS NEEDED FOR MILD PAIN DO NOT BREAK, CRUSH, DISSOLVE OR CHEW 60 tablet 1 alfuzosin ER (Uroxatral) 10 MG 24 hr tablet Take 1 tablet by mouth at bedtime. ARIPiprazole (Abilify) 10 MG tablet Take 1 tablet by mouth at bedtime. BD Hypodermic Needle 18G X 1 misc USE DIRECTED BD Plastipak Syringe 3 ML misc USE DIRECTED Blood Pressure kit Check blood pressure daily 1 kit 0 cholecalciferol (D3 Super Strength) 50 MCG (2000 UT) capsule TAKE 1 CAPSULE BY MOUTH EVERY DAY 90 capsule 3 cromolyn (Nasachrom) 5.2 MG/ACT nasal spray Administer 1 spray into each nostril 4 times daily. 26 mL 12 cyclobenzaprine (Flexeril) 5 MG tablet Take 1 tablet (5 mg) by mouth at bedtime. 15 tablet 0 docusate sodium (Colace) 100 MG capsule Take 1 capsule (100 mg) by mouth 2 times daily. 180 capsule0 fluticasone (Flonase) 50 MCG/ACT nasal spray Administer 2 sprays into each nostril Once per day. Shake gently. Before first use, prime pump. After use, clean tip and replace cap.INSTILL 2 SPRAYS IN EACH NOSTRIL ONCE DAILY 48 g 3 furosemide (Lasix) 20 MG tablet Take 2 tablets (40 mg) by mouth Once per day. 60 tablet 2 gabapentin (Neurontin) 600 MG tablet Take 1 tablet (600 mg) by mouth at bedtime. 30 tablet 11 hydrOXYzine HCl (Atarax) 25 MG tablet TAKE 1 TABLET BY MOUTH EVERY 6 HOURS NEEDED FOR ANXIETY ORFOR ITCHING 120 tablet 0 loratadine (Claritin) 10 MG tablet Take 1 tablet (10 mg) by mouth Once per day. 30 tablet 11 Lotemax 0.5 % gel INSTILL 1 DROP INTO RIGHT EYE 4 TIMES A DAY melatonin 5 MG tablet TAKE 1 TO 2 TABLETS BY MOUTH AT BEDTIME NEEDED 60 tablet 2 meloxicam (Mobic) 7.5 MG tablet Take 1 tablet (7.5 mg) by mouth 2 times daily. 60 tablet 11 methadone (Dolophine) 10 MG tablet Take 29 mg by mouth Once per day. omeprazole (PriLOSEC) [address] capsule TAKE 1 CAPSULE BY MOUTH EVERY MORNING BEFORE BREAKFAST 90 capsule 1 Restasis 0.05 % ophthalmic emulsion Administer 1 drop into both eyes 2 times daily. rosuvastatin (Crestor) 10 MG tablet TAKE 1 TABLET BY MOUTH EVERY MORNING 90 tablet 3 Spacer/Aero-Holding Chambers (Pro Comfort Spacer Adult) [facility] Use with albuterol inhaler 1 each 0 tamsulosin (Flomax) 0.4 MG 24 hr capsule Take 0.8 mg by mouth Once per day. testosterone cypionate (Depo-Testosterone) 200 MG/ML injection Inject 0.5 mL into the shoulder, thigh, or buttocks once a week. Ventolin HFA 108 (90 Base) MCG/ACT inhaler INHALE 2 PUFFS BY MOUTH EVERY 4 HOURS NEEDED FOR WHEEZING OR SHORTNESS OF BREATH 18 g 11 No current facility-administered medications on file prior to visit. Yi Translation: Provided by [facility] staff member documented in this encounter Plan of Treatment Upcoming Encounters Date Type Department Care Team (Late st Contact Info) Description 04/24/2025 1:00 PM EDT Office Visit [facility] ADULT DENTAL [address] [place], [place] [phone] Zachariah, Claudette [address] [place] [address] Scheduled Orders Name Type Priority Associated Diagnoses Orde r Schedule TSH W/Reflex to FT4 Lab Routine Polyneuropathy Expected: 10/10/2024 (Approximate), Expires: 10/10/2025 Hemoglobin A1c Lab Routine Polyneuropathy Expected: 10/10/2024 (Approximate), Expires: 10/10/2025 CBC auto differential Lab Routine Polyneuropathy Expected: 10/10/2024 (Approximate), Expires: 10/10/2025 Nerve conduction test Neurology Routine Polyneuropathy Expected: 10/15/2024 (Approximate), Expires: 10/15/2025 EMG Neurology Routine Polyneuropathy Expected: 10/15/2024 (Approximate), Expires: 10/15/2025 documented as of this encounter Goals Goal Patient Goal Type Associated Problems Recent Progress Patient-Stated? Author Patient will adhere to medication regimen General Mary Chauhan documented as of this encounter Procedures Procedure [...] EST Narrative 10/10/2024 3:12 PM EST ? [facility] ?[address] ?[place] [address] ?XRay Report ? Signed ? Patient: John Fitzpatrick ?MR#: ?? [id number] ? : 1970 ?Acct:[id number] ? Age/Sex: 54 / M ?ADM Date: 10/10/24 ? Loc: HO.CARD ? Attending Dr: Pepper Balderrama MD ? Ordering Physician: Haily Robb ?? Date of Service: 10/10/24 ?? Procedure(s): XR knee RT 4V ?? Accession Number(s): [id number] ? cc: Haily Robb ? EXAMINATION: ?? [...] DD/ 1437 ? TD/TT: 10/10/24 1502 ? Development Disability Specialist: ? Procedure Note Leonard Sanders - 10/10/[address] [place] [address] XRay Report Signed Patient: John Fitzpatrick [facility]#: [id number] : 1970Acct:[id number] Age/Sex: 54 / MADM Date: 10/10/24 Loc: CarissaCARD Attending Dr: Pepper Balderrama MD Ordering Physician: [facility] Date of Service: 10/10/24 Procedure(s): XR knee RT 4V Accession Number(s): [id number] cc: [facility] EXAMINATION: XR KNEE, RIGHT CLINICAL INFORMATION: chronic [...] 10/10/24 1509 DD/ 1437 TD/TT: 10/10/24 1502 Development Disability Specialist: [facility] MECHANICAL CAD DRAFTER IMG XR PROCEDURES Final Resul t * XR Knee 4+ Views Left (10/10/2024 2:37 PM EST) Anatomical Region Laterality Modality Lower Extremities, Knee Left Radiogra phic Imaging 10/10/2024 2:37 PM EST Narrative 10/10/2024 3:12 PM EST ? [facility] ?[address] ?[place] [address] ?XRay Report ? Signed ? Patient: Jr Ro,Jean ?MR#: ?? [id number] ? : 1970 ?Acct:[id number] ? Age/Sex: 54 / M ?ADM Date: 02/07/25 ? Loc: HO.CARD ? Attending Dr: Pepper Balderrama MD ? Ordering Physician: Haily Robb ?? Date of Service: 10/10/24 ?? Procedure(s): XR knee LT 4V ?? Accession Number(s): [id number] ? cc: Haily Robb ? EXAMINATION: ?? [...] DD/ 1437 ? TD/TT: 10/10/24 1502 ? Development Disability Specialist: ? Procedure Note Marilyn, Image - 10/10/2024 [place] [address] XRay Report Signed Patient: John Fitzpatrick [facility]#: [id number] : 1970Acct:[id number] Age/Sex: 54 / MADM Date: 10/10/24 Loc: YOGESH Attending Dr: Pepper Balderrama MD Ordering Physician: Haily Robb Date of Service: 10/10/24 Procedure(s): XR knee LT 4V Accession Number(s): [id number] cc: Haily RobbP EXAMINATION: XR KNEE, LEFT CLINICAL INFORMATION: chronic [...] Darryl Zaidi MD 10/10/2024 03:10 PM EST RP Dictated By: Darryl Rey MD Signed By: <Electronically signed by Darryl Lynn MDin OV> 10/10/24 1510 DD/ 1437 TD/TT: 10/10/24 1502 Development Disability Specialist: [facility] IMG XR PROCEDURES Final Resul t documented in this encounter Visit Diagnoses Diagnosis Polyneuropathy- Primary Unspecified hereditary and idiopathic peripheral neuropathy Bilateral lower extremity edema Ataxia Lack of coordination Chronic pain of both knees Anxiety due to invasive procedure Shortness of breath documented in this encounter Additional Health Concerns Assessment Noted Time PHQ-9 Depression Total Score: 0 10/10/19 25 1:23 PM EST documented as of this encounter Care Teams Contracting Manager Relationship Specialty Start Date End Date Haiyl Robb FNP [address] [place] [address] PCP - General Family Medicine 05/01/22 documented as of this encounter
--- OUTSIDE RECORDS SUMMARY | 2024-10-29 17:04 | XMS_ITS | Encounter Summary ---
Author Organization [employer] Address [address] [facility] [address] 7[address] [place] [address] Care Team Providers Care Kindergarten Tutor Name Role Phone Clarisse [facility] Primary Care Provider [phone] Reason for Visit * Reason Onset Date Comments Triage 09/20/2022 Encounter Details Date Type Department Care Team ([facility] st Contact Info) Description 09/20/2022 Telephone [facility] [address] [place], [place] [phone] [facility] [address] [place] [address] Triage Social History Tobacco Use Types Packs/Day [...] 09/20/2022 11:55 AM EST Triage call with [place] Accounting Clerk ID [id number] Pt reports an area on back that [...] No high acuity concerns reported by caller DANISH SPEAKER The caller accepted this outcome documented in this encounter Plan of Treatment Upcoming Encounters Date Type Department Care Team (Late st Contact Info) Description 04/24/2025 1:00 PM EDT Office Visit [facility] ADULT DENTAL [address] [place] [address] Zachariah, Claudette [address] [place] [address] documented as of this encounter Visit Diagnoses Not on filedocumented in this encounter Care Teams Kindergarten Tutor Relationship Specialty Start Date End Date Haily Robb FNP [address] [place] [address] PCP - General Family Medicine 05/01/22 documented as of this encounter
--- OUTSIDE RECORDS SUMMARY | 2024-10-29 17:04 | XMS_ITS | Encounter Summary ---
Author Organization [employer] Address [address] [facility] 7t [place] [address] Care Team Providers Care Wood Pile Driver Operator Name Role Phone Clarisse [facility] Primary Care Provider [phone] Reason for Visit * Reason Onset Date Comments Med Refill 09/25/2023 Encounter Details Date Type Department Care Team ([facility] st Contact Info) Description 09/25/2023 Telephone [facility] [address] [place], [place] [phone] [facility] [address] [place] [address] Med Refill Social History Tobacco Use Types [...] the past 12 months, has t he [employer], gas, oil or water company threatened to [...] 200 MG/ML injection To be sent to: [facility] - [place], [place] - [address] documented in this encounter Plan of Treatment Upcoming Encounters Date Type Department Care Team (Late st Contact Info) Description 04/24/2025 1:00 PM EDT Office Visit [facility] ADULT DENTAL [address] [place] [address] Claudette Soni [address] [place] [address] documented as of this encounter Visit Diagnoses Not on filedocumented in this encounter Additional Health Concerns Assessment Noted Time PHQ-9 Depression Total Score: 0 08/15/20 3:52 PM EST documented as of this encounter Care Teams Wood Pile Driver Operator Relationship Specialty Start Date End Date Haily Robb FNP [address] [place] [address] PCP - General Family Medicine 05/01/22 documented as of this encounter
--- OUTSIDE RECORDS SUMMARY | 2024-10-29 17:04 | XMS_ITS | Encounter Summary ---
Author Organization [employer] Address [address] [facility] [facility] [address] [place] [address] Care Team Providers Care Cupola Charger Insulation Name Role Phone Clarisse Haily CORNELL Primary Care Provider [phone] Encounter Details Date Type Department Care Team (Latest Contact Info) Description 06/01/2022 Abstract [facility] CONVERSIONS Dental, Provider, DDS Social History [...] Description 04/24/2025 1:00 PM EDT Office Visit [facility] ADULT DENTAL [address] [place] [address] Zachariah, Claudette [address] [place] [address] documented as of this encounter Visit Diagnoses Not on filedocumented in this encounter Care Teams Cupola Charger Insulation Relationship Specialty Start Date End Date Haily Robb FNP [address] [place] [address] PCP - General Family Medicine 05/01/22 documented as of this encounter
--- OUTSIDE RECORDS SUMMARY | 2024-10-29 17:04 | XMS_ITS | Encounter Summary ---
Author Organization [employer] Address [address] [facility] [facility] [address] [place] [address] Care Team Providers Care Commercial Green Retrofit Architect Name Role Phone Clarisse [facility] Primary Care Provider [phone] Reason for Visit * Reason Onset Date Comments Results 03/16/2023 Encounter Details Date Type Department Care Team ([facility] st Contact Info) Description 03/16/2023 Telephone [facility] [address] [place], [place] [phone] [facility] [address] [place] [address] Results Social History Tobacco Use Types Packs/Day [...] 03/20/2023 4:06 PM EDT Return T/C to [phone] for below message, No answer. LVM to call back on [phone]. * Telephone Encounter - Kelli Boucher - 03/16/2023 2:04 PM EDT Tc from pt requesting a call in regards to results to recent lab orders. Please contact pt at [phone] (Yakut speaker) documented in this encounter Plan of Treatment Upcoming Encounters Date Type Department Care Team (Late st Contact Info) Description 04/24/2025 1:00 PM EDT Office Visit [facility] ADULT DENTAL [address] [place], [place] [phone] ZachariahClaudette [address] [place] [address] documented as of this encounter Visit Diagnoses Not on filedocumented in this encounter Additional Health Concerns Assessment Noted Time PHQ-9 Depression Total Score: 0 01/26/20 23 3:38 PM EDT documented as of this encounter Care Teams Commercial Green Retrofit Architect Relationship Specialty Start Date End Date Haily Robb FNP [address] [place] [address] PCP - General Family Medicine 05/01/22 documented as of this encounter
--- OUTSIDE RECORDS SUMMARY | 2024-10-29 17:04 | XMS_ITS | Encounter Summary ---
Author Organization [employer] Address [address] 7t [place] [address] Care Team Providers Care Bias Cutter Name Role Phone Clarisse [facility] Primary Care Provider [phone] Reason for Visit * Reason Onset Date Comments Nurse Triage 02/16/2023 Encounter Details Date Type Department Care Team ([facility] st Contact Info) Description 02/16/2023 Telephone [facility] [address] [place], [place] [phone] [facility] 230 [place] [address] Nurse Triage Social History Tobacco Use Types [...] - 02/23/2023 2:49 PM EDT T/C to [id number] through [employer] interpreters id - [id number] for below message, pt. Verbally agreed and understood. * Telephone Encounter - Angela Whitman LPN - 02/16/2023 2:48 PM EDT Triage call returned to patient via [email or web address] News Clipping Cutter [id number]. Patient called with concerns of Left eye burning and tearing at times with blurred vision. No irritant or object in eye at this time. Patient reports that he was seen some time ago in [facility] [place] and was given order to obtain eye drops for dry eye. He is angry that he had to pay for them out of pocket and that they did not help. Patient requesting specifically a referral and declines appts. in [facility] or with Team providers later in the [...] suggested disposition Override Notes: Patient seen in [facility] [place] and was told to use eye drops several months ago. Patient requesting only referral to Community Planning Technician. Video visit not offered Positive Triage Question: [...] The caller accepted this outcome Patient speaks greek documented in this encounter Plan of Treatment Upcoming Encounters Date Type Department Care Team (Late st Contact Info) Description 04/24/2025 1:00 PM EDT Office Visit [facility] ADULT DENTAL [address] [place] [address] Kailash Soniaris [address] [place] [address] documented as of this encounter Visit Diagnoses Not on filedocumented in this encounter Additional Health Concerns Assessment Noted Time PHQ-9 Depression Total Score: 0 01/26/20 23 3:38 PM EDT documented as of this encounter Care Teams Bias Cutter Relationship Specialty Start Date End Date Haily Robb FNP 230 [place] [address] PCP - General Family Medicine 05/01/22 documented as of this encounter
--- OUTSIDE RECORDS SUMMARY | 2024-10-29 17:04 | XMS_ITS | Encounter Summary ---
Author Organization [employer] Address [address] 7[address] [place] [address] Care Team Providers Care Stamp Clerk Name Role Phone [place] [facility] Primary Care Provider [phone] Reason for Visit * Reason Comments Med Refill Encounter Details Date Type Department Care Team ([facility] st Contact Info) Description 10/01/2024 Refill [facility] [address] [place], [place] [phone] [facility] 230 [place] [address] Mixed anxiety and depressive disorder Social History [...] 1:00 PM EDT Office Visit [facility] ADULT DENTAL 230 [place] [address] Zachariah, Claudette 230 [place] [address] documented as of this encounter Goals Goal [...] documented as of this encounter Care Teams Stamp Clerk Relationship Specialty Start Date End Date Haily Robb FNP 230 [place] [address] PCP - General Family Medicine 05/01/22 documented as of this encounter
--- OUTSIDE RECORDS SUMMARY | 2024-10-29 17:04 | XMS_ITS | Encounter Summary ---
Author Organization [employer] Address [address] 7t [place] [address] Care Team Providers Care Investigative Analyst Name Role Phone Haily Robb ROAD TEST EXAMINER Primary Care Provider [phone] Reason for Visit * Reason Comments Med Refill Encounter Details Date Type Department Care Team (Late st Contact Info) Description 04/02/2023 Refill [facility] 230 [place] [address] Hollis Rutledge MD 230 [place] [address] Social History Tobacco Use Types Packs/Day Years [...] Visit [facility] ADULT [facility]ENT[facility] [address] [place] [address] Claudette Soni [address] [place] [address] documented as of this encounter Visit Diagnoses Not on filedocumented in this encounter Additional Health Concerns Assessment Noted Time PHQ-9 Depression Total Score: 0 01/26/20 23 3:38 PM EDT documented as of this encounter Care Teams Investigative Analyst Relationship Specialty Start Date End Date Haily Robb FNP 230 [place] [address] PCP - General Family Medicine 05/01/22 documented as of this encounter
--- OUTSIDE RECORDS SUMMARY | 2024-10-29 17:04 | XMS_ITS | Clinical Summary ---
Author Organization [facility] Address [address] [place] [address] Phone Care Team Providers Care Structural Engineer Name Role Phone [facility] Primary Care Provider [phone] Medications polyethylene glycol (Golytely) 236-22.74-6.74 -5.86 gram [...] Phone Billing Address Personal/Family Self 1970 [address] [facility] [address] [place] [address] MEDICAID - [place] Care Teams Structural Engineer Relationship Specialty Start Date End Date Haily Robb [address] [place] [id number] PCP - General 05/20/24
--- OUTSIDE RECORDS SUMMARY | 2024-10-29 17:04 | XMS_ITS | Encounter Summary ---
Author Organization [employer] Address [address] 7t [place] [address] Care Team Providers Care Powder Shoveler Name Role Phone Clarisse [facility] Primary Care Provider [phone] Reason for Visit * Reason Onset Date Comments triage 11/10/2022 Encounter Details Date Type Department Care Team ([facility] st Contact Info) Description 11/10/2022 Telephone [facility] 230 [place], [place] [phone] [facility] 230 [place] [address] triage Social History Tobacco Use Types Packs/Day [...] in office. Pt agrees to come into [facility] for exam. Pt also advised to call [...] question The caller accepted this outcome speaks congolese documented in this encounter Plan of Treatment Upcoming Encounters Date Type Department Care Team (Late st Contact Info) Description 04/24/2025 1:00 PM EDT Office Visit [facility] ADULT DENTAL 230 [place] [address] Zachariah, Claudette 230 [place] [address] documented as of this encounter Visit Diagnoses Not on filedocumented in this encounter Additional Health Concerns Assessment Noted Time PHQ-9 Depression Total Score: 0 11/03/19 10:32 AM EST documented as of this encounter Care Teams Powder Shoveler Relationship Specialty Start Date End Date Haily Robb FNP 230 [place] [address] PCP - General Family Medicine 05/01/22 documented as of this encounter
--- OUTSIDE RECORDS SUMMARY | 2024-10-29 17:04 | XMS_ITS | Encounter Summary ---
Author Organization [employer] Address [address] [facility] 7t [place] [address] Care Team Providers Care Broadcast Program Director Name Role Phone [place] [facility] Primary Care Provider [phone] Reason for Visit * Reason Onset Date Comments Med Refill 12/13/2023 Encounter Details Date Type Department Care Team ([facility] st Contact Info) Description 12/13/2023 Telephone [facility] 230 [place], [place] [phone] [facility] 230 [place] [address] Med Refill Social History Tobacco Use Types [...] with others, in a hotel, in a group home, living outside on the street, on [...] the past 12 months, has t he [employer], gas, oil or water company threatened to [...] 10:24 AM EDT Medication was sent to [facility] on 11/09/23 with 2 refills. * Telephone Encounter - Christine Taylor - 12/13/2023 10:19 AM EDT TC from pt requesting medication refill. Medications needing refill : melatonin 5 MG tablet To be sent to: [facility] - [place], [place] - [address] [facility] documented in this encounter Plan of Treatment Upcoming Encounters Date Type Department Care Team (Late st Contact Info) Description 04/24/2025 1:00 PM EDT Office Visit [facility] ADULT DENTAL [address] [place] [address] Claudette Soni [address] [place] [address] documented as of this encounter Visit Diagnoses Not on filedocumented in this encounter Additional Health Concerns Assessment Noted Time PHQ-9 Depression Total Score: 0 08/15/20 23 3:52 PM EST documented as of this encounter Care Teams Broadcast Program Director Relationship Specialty Start Date End Date Haily Robb FNP [address] [place] [address] PCP - General Family Medicine 05/01/22 documented as of this encounter
--- OUTSIDE RECORDS SUMMARY | 2024-10-29 17:04 | XMS_ITS | Encounter Summary ---
Author Organization [employer] Address [address] 7[address] [place] [address] Care Team Providers Care Dry Cans Back Tender Name Role Phone Haily Robb INSOLE BEVELER Primary Care Provider [phone] Reason for Visit * Reason Comments Med Refill Encounter Details Date Type Department Care Team (Late st Contact Info) Description 04/02/2023 Refill [facility] 230 [place] [address] Juanjose Barton MD [address] [place] [address] Chronic pruritus Social History Tobacco Use Types [...] Description 04/24/2025 1:00 PM EDT Office Visit [facility] ADULT DENTAL 230 [place] [address] Claudette Soni 230 [place] [address] documented as of this encounter Visit Diagnoses Diagnosis Chronic pruritus documented in this encounter Additional Health Concerns Assessment Noted Time PHQ-9 Depression Total Score: 0 01/26/20 23 3:38 PM EDT documented as of this encounter Care Teams Dry Cans Back Tender Relationship Specialty Start Date End Date Haily Robb FNP [address] [place] [address] PCP - General Family Medicine 05/01/22 documented as of this encounter
--- OUTSIDE RECORDS SUMMARY | 2024-10-29 17:04 | XMS_ITS | Encounter Summary ---
Author Organization [employer] Address [address] 7[address] [place] [address] Care Team Providers Care Optometry Assistant Name Role Phone [place] [facility] Primary Care Provider [phone] Reason for Visit * Reason Comments Med Refill Encounter Details Date Type Department Care Team ([facility] st Contact Info) Description 08/28/2024 Refill [facility] 230 [place], [place] [phone] [facility] 230 [place] [address] Mixed anxiety and depressive disorder Social History [...] Description 04/24/2025 1:00 PM EDT Office Visit [facility] ADULT DENTAL [address] [place] [address] Zachariah, Claudette [address] [place] [address] documented as of this encounter Goals Goal [...] documented as of this encounter Care Teams Optometry Assistant Relationship Specialty Start Date End Date Haily Robb FNP 230 [place] [address] PCP - General Family Medicine 05/01/22 documented as of this encounter
--- OUTSIDE RECORDS SUMMARY | 2024-10-29 17:05 | XMS_ITS | Encounter Summary ---
Author Organization [employer] Address [address] 7[address] [place] [address] Care Team Providers Care Fibre Technologist Name Role Phone Haily Robb FILAMENT COIL WINDER Primary Care Provider [phone] Reason for Visit * Reason Comments Routine Cleaning Dental Exam x-rays Perio chart Encounter Details Date Type Department Care Team (Late st Contact Info) Description 10/22/2024 1:00 PM EST Office Visit [facility] ADULT DENTAL 230 [place] [address] Zachariah, Claudette [address] [place] [address] Partial edentulism, unspecified edentulism class (Primary Dx); Dental calculus; Generalized gingival recession, moderate; Normal oral exam Social History Tobacco Use Types Packs/Day Years [...] Pressure 118/68 10/22/2024 1:06 PM EST Pulse - - Temperature - - Respiratory Rate - - Oxygen Saturation - - Inhaled Oxygen Concentration - - Weight - - Height - - Body Mass Index - - documented in this encounter Progress Notes * Claudette Soni - 10/22/2024 1:00 PM EST Patient ID: John Ro is a 54 y.o. adult. Time Out: Timeout Date: 10/22/24, Timeout Time: 1313 (Prophy, x-rays, Perio chart, P. exam) Location: [facility] Tooth: Maxilla and Mandible Procedure: Exam, X-rays, Prophylaxis, and Perio chart : due to Pt having mostly anteriors teeth approved Pas to be taken Verified the above with patient, assistant merchandiser, and provider. Confirmed via patient's chart, intraorally and by radiographs. Glycerin Supervisor: not applicable Medical Hx: Vitals: Blood pressure 118/68. Medications, Med Hx reviewed with patient and updated in chart. Treatment Provided Dental procedures in this visit D1110 - PROPHYLAXIS - ADULT (Completed) Service provider: Claudette Soni [employer] provider: Lino Andrews DDS D0220 - INTRAORAL - PERIAPICAL FIRST RADIOGRAPHIC IMAGE (Completed) Service provider: Claudette Soni [employer] provider: Lino Andrews DDS D0230 - INTRAORAL - PERIAPICAL EACH ADDITIONAL RADIOGRAPHIC IMAGE (Completed) Service provider: Claudette Soni Billing provider: Lino Andrews DDS D0230 - INTRAORAL - PERIAPICAL EACH ADDITIONAL RADIOGRAPHIC IMAGE (Completed) Service provider: Claudette Soni [employer] provider: Lino Andrews DDS D1330 - ORAL HYGIENE INSTRUCTIONS (Completed) Service provider: Claudette Soni [employer] provider: Lino Andrews DDS D9450 - CASE PRESENTATION, DETAILED AND EXTENSIVE TREATMENT PLANNING (Completed) Service provider: Claudette Soni [employer] provider: Lino Andrews DDS D0230 - INTRAORAL - PERIAPICAL EACH ADDITIONAL RADIOGRAPHIC IMAGE (Completed) Service provider: Claudette Soni Billing provider: Lino Andrews DDS D0230 - INTRAORAL - PERIAPICAL EACH ADDITIONAL RADIOGRAPHIC IMAGE (Completed) Service provider: Claudette Soni Billing provider: Lino Andrews DDS D0230 - INTRAORAL - PERIAPICAL EACH ADDITIONAL RADIOGRAPHIC IMAGE (Completed) Service provider: Claudette Soni Billing provider: Lino Andrews DDS Instruments Used: Ultrasonic Scalers and Prophy angle Fluoride: N/A Oral Cancer Screening: No lesions Head/Neck Exam: No Lesions Calculus: Light Plaque: Light Stain: Light and Moderate Bleeding: Light Gingiva: pink, recession. OH: Fair Perio Chart: Completed: no bleeding upon probing. Oral hygiene instructions provided to patient including brushing technique and flossing. Recommendations: [place] two times daily, modified bey technique, floss and use interproximal brushes as needed. Recall Frequency: 6 mo NV: Prophy in 6 months Hygienist: Claudette Soni RDH * Lino Andrews DDS - 10/22/2024 1:00 PM EST Dental procedures in this visit D1110 - PROPHYLAXIS - ADULT (Completed) Service provider: Claudette Soni [employer] provider: Lino Andrews DDS D0220 - INTRAORAL - PERIAPICAL FIRST RADIOGRAPHIC IMAGE (Completed) Service provider: Claudette Soni Billing provider: Lino Andrews DDS D0230 - INTRAORAL - PERIAPICAL EACH ADDITIONAL RADIOGRAPHIC IMAGE (Completed) Service provider: Claudette Soni Billing provider: Lino Andrews DDS D0230 - INTRAORAL - PERIAPICAL EACH ADDITIONAL RADIOGRAPHIC IMAGE (Completed) Service provider: Claudette Soni [employer] provider: Lino Andrews DDS D1330 - ORAL HYGIENE INSTRUCTIONS (Completed) Service provider: Claudette Soni [employer] provider: Lino Andrews DDS D9450 - CASE PRESENTATION, DETAILED AND EXTENSIVE TREATMENT PLANNING (Completed) Service provider: Claudette Soni [employer] provider: Lino Andrews DDS D0230 - INTRAORAL - PERIAPICAL EACH ADDITIONAL RADIOGRAPHIC IMAGE (Completed) Service provider: Claudette Soni Billing provider: Lino Andrews DDS D0230 - INTRAORAL - PERIAPICAL EACH ADDITIONAL RADIOGRAPHIC IMAGE (Completed) Service provider: Claudette Soni Billing provider: Lino Andrews DDS D0230 - INTRAORAL - PERIAPICAL EACH ADDITIONAL RADIOGRAPHIC IMAGE (Completed) Service provider: Claudette Soni [employer] provider: Lino Andrews DDS D0120 - PERIODIC ORAL EVALUATION - ESTABLISHED PATIENT (Completed) Service provider: Lino Andrews DDS [employer] provider: Lino Andrews DDS Patient ID: John Ro is a 54 y.o. adult. Time Out: Timeout Date: 10/22/24, Timeout Time: 1313 (Prophy, x-rays, Perio chart, P. exam) Location: [facility] Tooth: Maxilla and Mandible Procedure: Exam, X-rays, and Prophylaxis Verified the above with patient, assistant merchandiser, and provider. Confirmed via patient's chart, intraorally and by radiographs. Glycerin Supervisor: not applicable Chief Complaint Patient presents with Routine Cleaning Dental Exam x-rays Perio chart Medical Hx: Vitals: Blood pressure 118/68. Past Medical History: Diagnosis Date Anxiety Depression GERD (gastroesophageal reflux disease) High cholesterol Medications: Outpatient Encounter Medications as of 10/22/2024 Medication Sig Dispense Refill acetaminophen (Tylenol 8 Hour) 650 MG ER tablet TAKE 1 TABLET BY MOUTH EVERY 8 HOURS NEEDED FOR MILD PAIN DO NOT BREAK, CRUSH, DISSOLVE OR CHEW 60 tablet 1 alfuzosin ER (Uroxatral) 10 MG 24 hr tablet Take 1 tablet by mouth at bedtime. amitriptyline (Elavil) 10 MG tablet Take 0.5 tablets (5 mg) by mouth at bedtime. 15 tablet 11 cholecalciferol (D3 Super Strength) 50 MCG (2000 UT) capsule TAKE 1 CAPSULE BY MOUTH EVERY DAY 90 capsule 3 cromolyn (Nasachrom) 5.2 MG/ACT nasal spray Administer 1 spray into each nostril 4 times daily. 26 mL 12 diazePAM (Valium) 5 MG tablet Take 1 tablet by oral route 30 minutes before procedure 2 tablet 0 docusate sodium (Colace) 100 MG [...] 3 Spacer/Aero-Holding Chambers (Pro Comfort Spacer Adult) misc Use with albuterol inhaler 1 each 0 [...] OR SHORTNESS OF BREATH 18 g 11 ARIPiprazole (Abilify) 10 MG tablet Take 1 tablet by mouth at bedtime. (Patient not taking: Reported on 10/22/2024) BD Hypodermic Needle 18G X 1 misc USE DIRECTED (Patient not taking: Reported on 10/22/2024) BD Plastipak Syringe 3 ML misc USE DIRECTED (Patient not taking: Reported on 10/22/2024) Blood Pressure kit Check blood pressure daily 1 kit 0 No facility-administered encounter medications on file as of 10/22/2024. Objective HPI Asymptomatic Head and Neck Exam: Lymph Nodes, Lips, Palate, Buccal Mucosa, Floor of Mouth, Tongue, Tonsils, Alveolar Ridges, Oropharynx, Salivary Ducts, and Vestibules normal appearance . Details: Skin WNL OCS: negative Dental Exam As charted Missing teeth acquired Bone loss Plaque Partial functioning well T#17 small retained / emerged asymptomatic root fragment Reference tooth chart for additional findings. Oral Cancer Risk: Moderate Risk former smoker Oral Hygiene Instructions: [place] two times daily, modified bey technique, Floss daily, Electric toothbrush, Soft bristle toothbrush, [place] Tongue Caries Risk Assessment: Low- no risk factor. NO new active carious lesions noticed Assessment/Plan KODY X Rays Prophy Patient tolerated procedure well, all questions answered and expressed understanding. Dismissed in good condition. NV: 6 mos recall Computer Operations Analyst: Claudette Soni RDH Dentist: Lino Andrews DDS documented in this encounter Plan of Treatment Upcoming Encounters Date Type Department Care Team (Late st Contact Info) Description 04/24/2025 1:00 PM EDT Office Visit [facility] ADULT DENTAL [address] [place] [address] Claudette Soni [address] [place] [address] Scheduled Orders Name Type Priority Associated Diagnoses Orde r Schedule ORAL HYGIENE INSTRUCTIONS Dental Routine 1 Occurrences starting 10/22/2024 CASE PRESENTATION, DETAILED AND EXTENSIVE TREATMENT PLANNING Dental Routine 1 Occurrences starting 10/22/2024 documented as of this encounter Goals Goal Patient Goal Type Associated Problems Recent Progress Patient-Stated? Author Patient will adhere to medication regimen General Mary Chauhan documented as of this encounter Procedures Procedure Name Priority Date/Time Associated Diagnosis Comments PROPHYLAXIS - ADULT Routine 10/22/2024 1 :00 PM EST Dental calculus PERIODIC ORAL EVALUATION - ESTABLISHED PATIENT Routine 10/22/2024 1:00 PM EST ORAL HYGIENE INSTRUCTIONS Routine 10/22/2024 1:00 PM [...] class Dental calculus Generalized gingival recession, moderate 11 I COMPOSITE FILLING Routine 12:00 AM EST documented in this encounter Visit Diagnoses Diagnosis Partial edentulism, unspecified edentulism class- Primary Dental calculus Accretions on teeth Generalized gingival recession, moderate Normal oral exam documented in this encounter Additional Health Concerns Assessment Noted Time PHQ-9 Depression Total Score: 0 10/10/19 25 1:23 PM EST documented as of this encounter Care Teams Fibre Technologist Relationship Specialty Start Date End Date Haily Robb FNP [address] [place] [address] PCP - General Family Medicine 05/01/22 documented as of this encounter
--- OUTSIDE RECORDS SUMMARY | 2024-10-29 17:05 | XMS_ITS | Encounter Summary ---
Author Organization [employer] Address [address] [place] [address] Care Team Providers Care Larry Car Operator Name Role Phone [place] [facility] Primary Care Provider [phone] Reason for Visit * Reason Onset Date Comments Telephone Call 10/28/2024 Encounter Details Date Type Department Care Team ([facility] st Contact Info) Description 10/28/2024 Telephone [facility] 230 [place], [place] [phone] [facility] 230 [place] [address] Telephone Call Social History Tobacco Use Types Packs/Day Years Used Date Smoking Tobacco: Former Cigarettes Q uit: 08/22/2023 Passive Smoke Exposure: Past Smokeless Tobacco: Never Alcohol Use Standard Drinks/Week [...] encounter Miscellaneous Notes * Telephone Encounter - Willow Mckeon RN - 10/28/2024 1:27 PM EST Patient walked in requesting a [employer] order for a program. Per chart review, patient had Tspot on 03/31/24 which was POSITIVE. Patient had CXR which r/o active TB and patient was referred to [place] clinic at [facility]. Per [facility] [place], patient was scheduled for 09/29/24 however patient no showed. Patient advisedhe needs to call [facility] [place] clinic to r/s his missed appointment. RN provided patient with phone numberto TB clinic. In regards to Elavil medication 10mg, unclear if medication was supposed to be increased to 1 tab. PCP please review and advise. Thank you! * Telephone Encounter - Erin Ceballos - 10/28/2024 12:20 PM EST Pt walked in requesting refill for medication elavil 10mg. I explained to pt he had 11 refills available he was just a week early for it. Pt stated pcp gave him the instructions of taking half a tab for one week until his body adjusted to it and then begin taking a full tablet so that's why its short. Pt would like pcp to fix the instructions so he can get his refill for it since he has run out of it. documented in this encounter Plan of Treatment Upcoming Encounters Date Type Department Care Team (Late st Contact Info) Description 04/24/2025 1:00 PM EDT Office Visit [facility] ADULT DENTAL [address] [place], [place] [phone] Kailash Soniaris [address] [place] [address] documented as of this encounter Goals Goal Patient Goal Type Associated Problems Recent Progress Patient-Stated? Author Patient will adhere to medication regimen General No Mary Moreland documented as of this encounter Visit Diagnoses Not on filedocumented in this encounter Additional Health Concerns Assessment Noted Time PHQ-9 Depression Total Score: 0 10/10/19 25 1:23 PM EST documented as of this encounter Care Teams Larry Car Operator Relationship Specialty Start Date End Date Haily Robb FNP [address] [place] [address] PCP - General Family Medicine 05/01/22 documented as of this encounter
--- OUTSIDE RECORDS SUMMARY | 2024-10-29 17:05 | XMS_ITS | Encounter Summary ---
Author Organization [employer] Address [address] [place] [address] Care Team Providers Care Aircraft Dispatcher Name Role Phone [place] [facility] Primary Care Provider [phone] Reason for Visit * Reason Comments Med Refill Encounter Details Date Type Department Care Team ([facility] st Contact Info) Description 10/28/2024 Refill [facility] MEDICINE [address] [place], [place] [phone] [facility] [address] [place] [address] Social History Tobacco Use Types Packs/Day Years [...] 1:00 PM EDT Office Visit [facility] ADULT DENTAL [address] [place] [address] Zachariah, Claudette [address] [place] [address] documented as of this encounter Goals Goal Patient Goal Type Associated Problems Recent Progress Patient-Stated? Author Patient will adhere to medication regimen General Mary Chauhan documented as of this encounter Visit Diagnoses Not on filedocumented in this encounter Additional Health Concerns Assessment Noted Time PHQ-9 Depression Total Score: 0 10/10/19 25 1:23 PM EST documented as of this encounter Care Teams Aircraft Dispatcher Relationship Specialty Start Date End Date Haily Robb FNP [address] [place] [address] PCP - General Family Medicine 05/01/22 documented as of this encounter
== END ==
LOC: HO.CARD 13:51
PROVIDERS: Visit Provider Internal Medicine
DX: R60.0 Localized edema (principal)
CPT/HCPCS: 93306

== ENCOUNTER → 2024-10-29 13:55 | Outpatient (BNV) | payer MEDICAID, SELFPAY | PROVIDERS: Visit Provider Internal Medicine | DX: I35.1 Nonrheumatic aortic (valve) insufficiency (principal) | CPT/HCPCS: 93306 ==

== ENCOUNTER 2024-11-04 10:16 | Emergency (ER) | payer MEDICAID, SELFPAY ==
--- NOTE | ~2024-11-04 | XR_ITS ---
EXAMINATION: XR CHEST CLINICAL INFORMATION: chest pain COMPARISON: Chest 07/09/2024 TECHNIQUE: 2 views of the chest were obtained. FINDINGS: No significant abnormality is noted involving the heart, lungs, mediastinum, bony thorax or soft tissues. XR/XR chest 2V IMPRESSION: Unremarkable chest examination. Electronically signed by: Mateusz Parker MD 11/04/2024 11:46 AM [facility]
--- NOTE | ~2024-11-04 | US_ITS ---
EXAMINATION: US ABDOMEN LIMITED CLINICAL INFORMATION: Epigastric pain. COMPARISON: March 15, 2022. TECHNIQUE: Real-time imaging of the right upper quadrant abdominal viscera, Limited. FINDINGS: PANCREAS: No peripancreatic fluid collections. LIVER: 16 cm. Coarse echotexture. No nodular surface. No solid or cystic lesion. Main portal vein is patent with normal hepatopedal flow direction. No intrahepatic biliary ductal dilatation. GALLBLADDER: Fluid-filled and contracted. No pericholecystic fluid collection or gallbladder wall thickening. COMMON BILE DUCT: 6 mm. RIGHT KIDNEY: 11 cm. No solid or cystic lesion. No hydronephrosis. Normal renal cortical thickness. Normal echotexture. There is flow on color Doppler interrogation of the renal hilum. FREE FLUID: None. US/US abdomen limited IMPRESSION: No cholelithiasis. Prominent, 6 mm common bile duct. Choledocholithiasis cannot be excluded. Hepatomegaly, mild. No hydronephrosis, right kidney. Electronically signed by: Darryl Zaidi MD 11/04/2024 12:28 PM EST
--- NOTE | 2024-11-04 10:28 | ECG_ITS ---
Test Reason : chest pain Blood Pressure : */* mmHG Vent. Rate : 68 BPM Atrial Rate : 68 BPM P-R Int : 132 ms QRS Dur : 84 ms QT Int : 372 ms P-R-T Axes : 44 22 24 degrees QTcB Int : 395 ms Normal sinus rhythm Normal ECG When compared with ECG of 24-Jul-2024 14:51, No significant change was found Referred By: Lorena Banks Electronically Signed By: JHONATAN SANTILLAN MD
--- NOTE | 2024-11-04 10:56 | ED.CHESTPAIN ---
HPI - Chest Pain General Chief Complaint: Chest Pain Stated Complaint: Chest pain, recent pneumonia Time Seen by Provider: 11/04/24 12:46 Source: patient, old records reviewed and licensed investment sales assistant Mode of arrival: ambulatory Limitations: no limitations History of Present Illness ED Provider: MUSTAPHA ANN narrative: 54 yo male with PMH of GERD, BPH here with c/o 1 month of chest pain / epigastric pain - he states it goes from upper stomach to throat it gets dry. He has no trouble breathing, no n/v but he gets headache. He notes walking and eating make it worse. He has no appetite. He has no cough/fever. He states just a headache. He states he comes in frequently but then doesn't want to wait. He has not traveled or had a procedure. He reports a chronic headache no new trauma or falls has had negative CT head in the past. No cough or fevers reports. 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 He states [facility] was managing this. MD complaint: chest pain (abdominal pain) Onset (ago): month(s) (1) Timing of current episode: constant Prior episodes: Yes Onset: during rest Pain location: substernal and left chest Pain radiation: none Severity: moderate Quality: aching Relieving factors: nothing Exacerbating factors: exertion, palpation and movement Treatment prior to arrival: none Related Data Home Medications ?Medication ?Instructions ?Recorded ?Confirmed cholecalciferol (vitamin D3) 50 50 mcg PO DAILY 06/30/20 09/19/24 mcg (2,000 unit) capsule (Vitamin D3) clonazepam 1 mg tablet 1 mg PO DAILY 06/30/20 09/19/24 fluticasone propionate 50 1 spray intranasal DAILY 06/30/20 09/19/24 mcg/actuation nasal spray,suspension (Flonase Allergy Relief) hydroxyzine HCl 25 mg tablet 25 mg PO TID PRN Itching 06/30/20 09/19/24 methadone 40 mg soluble tablet 36 mg PO DAILY 06/30/20 09/19/24 fluoxetine 10 mg capsule 20 mg PO QAM 10/20/21 09/19/24 mirtazapine 15 mg tablet 15 mg PO BEDTIME 10/20/21 09/19/24 trazodone 50 mg tablet 25 mg PO BEDTIME 10/20/21 09/19/24 ascorbic acid (vitamin C) 500 mg 500 mg PO DAILY 12/16/21 09/19/24 tablet (Vitamin C) ferrous sulfate 325 mg (65 mg 325 mg PO DAILY 12/16/21 09/19/24 iron) tablet (FeroSul) lidocaine 5 % topical patch 0 patch topical 12/16/21 09/19/24 (Lidoderm) sennosides 8.6 mg tablet (senna) 17.2 mg PO DAILY 12/16/21 09/19/24 cetirizine 10 mg tablet 10 mg PO DAILY PRN congestion 05/18/22 09/19/24 nicotine 14 mg/24 hr daily 0 patch topical 06/22/22 09/19/24 transdermal patch albuterol sulfate 90 mcg/actuation 2 puff inhalation Q4H PRN wheezing 01/12/23 09/19/24 aerosol inhaler (Ventolin HFA) clonazepam 0.5 mg tablet 1 mg PO BID PRN 01/12/23 09/19/24 ibuprofen 600 mg tablet 600 mg PO Q8H PRN headache 01/12/23 09/19/24 melatonin 5 mg tablet 5 - 10 mg PO BEDTIME PRN 01/12/23 09/19/24 multivitamin 1 tab PO QAM 01/12/23 09/19/24 nicotine (polacrilex) 2 mg buccal 2 mg PO 01/12/23 09/19/24 lozenge rosuvastatin 10 mg tablet 10 mg PO QAM 01/12/23 09/19/24 simethicone 125 mg capsule (Gas 125 mg PO BEDTIME 01/12/23 09/19/24 Relief Extra Strength) omeprazole 40 mg capsule,delayed 40 mg PO QAM 09/19/24 09/19/24 release Previous Rx's ?Medication ?Instructions ?Recorded docusate sodium 100 mg capsule 200 mg (2 x 100 mg) PO BEDTIME 30 06/03/20 (Colace) days #60 caps bisacodyl 5 mg tablet,delayed 10 mg (2 x 5 mg) PO ONCE 05/18/22 release (Dulcolax (bisacodyl)) colonoscopy prep 1 day #2 tabs polyethylene glycol 3350 17 238 g PO ONCE 1 day #238 grams 05/18/22 gram/dose oral powder (Miralax) phenylephrine HCl 10 mg tablet 10 mg PO Q6H PRN nasal congestion 12/17/23 (Sudafed PE) #10 tabs testosterone cypionate 200 mg/mL 200 mg IM Q2W 28 days #2 mL 06/04/24 intramuscular oil diazepam 5 mg tablet (Valium) 5 mg PO BID PRN muscle spasm #10 07/24/24 tabs cefuroxime axetil 500 mg tablet 500 mg PO Q12H #14 tabs 08/02/24 nitrofurantoin 100 mg PO Q12H 7 days #14 caps 08/07/24 monohydrate/macrocrystals 100 mg capsule (Macrobid) furosemide 20 mg tablet (Lasix) 20 mg PO DAILY #90 tabs 08/29/24 syringe (disposable) 3 mL (BD #25 ea 09/05/24 Luer-Vira Syringe) needle (disp) 18 G 18 gauge x 1 #30 ea 09/29/24 (BD Regular Bevel Appleton) needle (disp) 22 G 22 gauge x 1 #30 ea 10/24/24 tamsulosin 0.4 mg capsule 0.8 mg (2 x 0.4 mg) PO BEDTIME #60 10/24/24 caps sucralfate 100 mg/mL oral 10 ml PO BID 14 days #280 mL 11/04/24 suspension (Carafate) Allergies Allergy/AdvReac Type Severity Reaction Status Date / Time No Known Drug Allergies Allergy Mild Unknown Verified 11/04/24 11:00 SEAFOOD Allergy Severe ANAPHYLAXIS Uncoded 11/04/24 11:00 shellfish Allergy Severe Anaphylaxis Uncoded 11/04/24 11:00 Review of Systems Review of Systems: Constitutional : No Weight loss, No Fever, No Chills ENT/Mouth : No sore throat, No Rhinorrhea Eyes: No Eye Pain, No Swelling Cardiovascular : pos Chest Pain, no SOB, no Dyspnea on Exertion, No Orthopnea, No Edema, No Palpitations Respiratory : No Cough, No Sputum Gastrointestinal : pos Nausea, No Vomiting, No Diarrhea, pos abdominal Pain, No Hematochezia, No Melena Genitourinary : No Dysuria, No Urinary Frequency Musculoskeletal : No joint pain, No Myalgias, No Joint Swelling Skin : No Skin Lesions, No rash Neuro : No Weakness, No Numbness, No Dizziness, No Headache All other systems reviewed and are negative PMFSH Past Medical History Attestation statement: The following information was validated with the patient. Source: old records reviewed Medical History Anemia Hx of substance abuse Smoker History of Helicobacter pylori infection Spinal pain Hypogonadism Erectile dysfunction Hx: UTI (urinary tract infection) BPH (benign prostatic hyperplasia) Hx of hepatitis C GERD (gastroesophageal reflux disease) Anxiety and depression HTN (hypertension) Murmur Surgical History Hx of cystoscopy Family History Family History Mother Diabetes Social History Social History Alcohol intake: former Patient Tobacco Use Status: Current everyday Tobacco user Substance Use Type: Crack/Cocaine and Heroin Advance Directives: No Advance Directives Information Provided: Yes Do you have a plan to hurt others: No Plan Current occupational status: unemployed Physical Exam Vital Signs: Vital Signs: Last Vital Signs Temp 98 F 11/04/24 10:57 Pulse 71 11/04/24 10:57 Resp 16 11/04/24 10:57 BP 124/76 11/04/24 10:57 Pulse Ox 97 11/04/24 10:57 O2 Del Method Room Air 11/04/24 10:57 BMI result Body Mass Index 20.3 Appearance: Alert. Oriented X3. No acute distress. Eyes: Pupils equal, round and reactive to light. ENT: Pharynx normal. Neck: Normal inspection. Neck supple. CVS: Normal heart rate and rhythm. Pulses normal. Chest: ttp along lower xiphoid Respiratory: No respiratory distress. Breath sounds normal. Abdomen: Soft and very mild epigastric ttp no rebound or guarding Skin: Skin warm and dry. Normal skin color. Normal skin turgor. Extremities: No lower extremity edema. No calf ttp Neuro: Oriented X 3. No motor deficit. No sensory deficit. CN2-12 intact Course Course Course Narrative: used licensed investment sales assistant to discharge patient Medical Decision Making Medical Decision Making MDM Narrative: 54 yo male with PMH of GERD, BPH here with c/o 1 month of chest pain / epigastric pain - he states it goes from upper stomach to throat it gets dry. He has no trouble breathing, no n/v but he gets headache. He notes walking and eating make it worse. He has no appetite. He has no cough/fever. He states just a headache. He states he comes in frequently but then doesn't want to wait. He has not traveled or had a procedure. He reports a chronic headache no new trauma or falls has had negative CT head in the past. At this time basic labs, US and CXR ordered. He has had this for 1 month so I doubt infection or obstruction given 1 month of constant pain. He has no risk factors for VTE, he would have been more ill if it was ACS, I am going to obtain labs and US for biliary colic. CXR ordered Differential Diagnosis Differential Diagnoses: The differential diagnosis associated with the presentation includes gastritis, gerd, atypical chest pain, pancreatitis Admission/Observation Consideration of admission/observation: Escalation of care including admission/observation considered work up negative CBD dilated but bili and LFTS at baseline no n/v/d and I suspect given 1 month of pain doubt choledocholithiasis Lab Data MDM Lab Attestation statement: I reviewed the patient's lab results. 11/04/24 11:16 11/04/24 11:16 Labs: Lab Results 11/04/24 Range/Units 11:16 WBC 5.8 (4.8-10.8) X10*3/uL RBC 4.65 (4.60-5.80) X10*6/uL Hgb 14.8 (14.0-18.0) g/dl Hct 43.1 (42.0-52.0) % MCV 92.7 (80.0-98.0) fL MCH 31.8 (27.0-33.0) pg MCHC 34.3 (31.0-36.0) g/dl RDW 13.2 (11.0-16.0) % Plt Count 235 (160-400) X10*3/uL MPV 10.6 (9.4-12.4) fL Immature Gran % (Auto) 0.2 (0.0-0.4) % Neut % (Auto) 66.2 (45-73) % Lymph % (Auto) 22.6 (20-40) % [place] % (Auto) 8.2 (2-11) % Eos % (Auto) 2.1 (0-4) % Baso % (Auto) 0.7 (0-2) % Lymph # (Auto) 1.3 (1.2-4.9) X10*3/uL [place] # (Auto) 0.5 (0.1-1.2) X10*3/uL Eos # (Auto) 0.1 (0.0-0.4) X10*3/uL Baso # (Auto) 0.0 (0.0-0.2) X10*3/uL Abs Immat Gran (auto) 0.01 (0.00-0.03) X10*3/uL Absolute Neuts (auto) 3.9 (2.0-8.3) x10*3/uL Absolute Nucleated RBC 0.000 (0.0-0.012) X10*3/uL Nucleated RBC % (auto) 0.0 (0.0-0.2) /100WBC Sodium 139 (135-145) mmol/L Potassium 4.4 (3.3-5.1) mmol/L Chloride 101 (96-108) mmol/L Carbon Dioxide 30 H (22-29) mmol/L Anion Gap 12 (12-20) BUN 15 (9-16) mg/dL Creatinine 0.97 (0.5-1.4) mg/dL Estim Creat Clear Calc 77.3 Estimated GFR > 60 Random Glucose 89 (60-115) mg/dL Calcium 9.2 (8.4-10.2) mg/dL Magnesium 2.0 (1.6-2.6) mg/dL Total Bilirubin 1.1 H (0.0-1.0) mg/dL Direct Bilirubin 0.3 (0.0-0.5) mg/dL AST 30 (5-37) U/L ALT 22 (0-40) U/L Alkaline Phosphatase 59 (39-117) U/L Troponin I High Sens < 2.7 (<3.5-35.0) ng/L Total Protein 8.1 H (6.5-8.0) g/dL Albumin 4.3 (3.5-5.0) g/dL Lipase 23 (8-78) U/L Influenza Type A (PCR) NEGATIVE (Negative) Influenza Type B (PCR) NEGATIVE (Negative) RSV RNA Qual (PCR) NEGATIVE (Negative) SARS-CoV-2 RNA (RT-PCR) NEGATIVE (Negative) Independent Interpretation I performed an independent interpretation of an: EKG, Plain X-Ray (normal ) and Ultrasound (no biliary colic) Interpretation: Rate: 68 Rhythm: NSR [place]: normal Normal P waves. Normal FLORESITA. Normal QRS complex. ST T wave : normal no HAILEE qTC: 395 prior studies: no acute ischemia The study has been interpreted contemporaneously by me. . Radiology Impression Discussion of test interpretation with radiology: I have reviewed the radiologist's reading. External Record Review External record reviewed: Outpatient record Prescription Management I considered prescription management with: Other Discharge Plan Discharge Clinical Impression: Atypical chest pain Abdominal pain Qualifiers: Abdominal location: epigastric Qualified Code(s): R10.13 - Epigastric pain Patient Disposition: Home, Self-Care Instructions: Chest Pain (ED), Abdominal Pain (ED) Additional Instructions: labs normal Chest xray and EKG normal you need to follow up with your doctor as soon as possible to get MRI of your abdomen given your degree of pain and retirement pain return for any worsening symptoms or concerns. Prescriptions: New sucralfate [Carafate] 100 mg/mL suspension 10 ml PO BID 14 Days Qty: 280 0RF No Action docusate sodium [Colace] 100 mg capsule 200 mg PO BEDTIME 30 Days Qty: 60 3RF (DME) syringe (disposable) [BD Luer-Vira Syringe] 3 mL syringe See Rx Instructions .Route Qty: 25 0RF Rx Instructions: As directed 1 syringe [id number] 2 syringes total per month for T injection (DME) needle (disp) 18 G [BD Regular Bevel Appleton] 18 gauge x 1 needle See Rx Instructions .Route Qty: 30 0RF Rx Instructions: As directed to draw testosterone (DME) needle (disp) 22 G 22 gauge x 1 needle See Rx Instructions .Route Qty: 30 0RF Rx Instructions: As directed to inject testosterone tamsulosin 0.4 mg capsule 0.8 mg PO BEDTIME Qty: 60 1RF clonazepam 1 mg Tablet 1 mg PO DAILY methadone 40 mg Tablet,Soluble 36 mg PO DAILY hydroxyzine HCl 25 mg Tablet 25 mg PO TID PRN (Reason: Itching) fluticasone propionate [Flonase Allergy Relief] 50 mcg/actuation Bryce,Suspension 1 spray INTRANASAL DAILY cholecalciferol (vitamin D3) [Vitamin D3] 50 mcg (2,000 unit) Capsule 50 mcg PO DAILY phenylephrine HCl [Sudafed PE] 10 mg tablet 10 mg PO Q6H PRN (Reason: nasal congestion) Qty: 10 0RF diazepam [Valium] 5 mg tablet 5 mg PO BID PRN (Reason: muscle spasm) Qty: 10 0RF cefuroxime axetil 500 mg tablet 500 mg PO Q12H Qty: 14 0RF nitrofurantoin monohyd/m-cryst [Macrobid] 100 mg capsule 100 mg PO Q12H 7 Days Qty: 14 0RF Rx Instructions: must administer with a meal/food trazodone 50 mg tablet 25 mg PO BEDTIME mirtazapine 15 mg tablet 15 mg PO BEDTIME fluoxetine 10 mg capsule 20 mg PO QAM nicotine 14 mg/24 hr patch 24 hour 0 patch topical bisacodyl [Dulcolax (bisacodyl)] 5 mg tablet,delayed release (DR/EC) 10 mg PO ONCE 1 Days Qty: 2 0RF Rx Instructions: Take 2 tablets by mouth at 12:00pm the day before your procedure. polyethylene glycol 3350 [Miralax] 17 gram/dose powder 238 g PO ONCE 1 Days Qty: 238 0RF Rx Instructions: Take as directed by mouth the day before your procedure. cetirizine 10 mg tablet 10 mg PO DAILY PRN (Reason: congestion) lidocaine [Lidoderm] 5 % adhesive patch,medicated 0 patch topical ferrous sulfate [FeroSul] 325 mg (65 mg iron) tablet 325 mg PO DAILY ascorbic acid (vitamin C) [Vitamin C] 500 mg tablet 500 mg PO DAILY sennosides [senna] 8.6 mg tablet 17.2 mg PO DAILY testosterone cypionate 200 mg/mL oil 200 mg IM Q2W 28 Days Qty: 2 5RF furosemide [Lasix] 20 mg tablet 20 mg PO DAILY Qty: 90 0RF albuterol sulfate [Ventolin HFA] 90 mcg/actuation HFA aerosol inhaler 2 puff inhalation Q4H PRN (Reason: wheezing) ibuprofen 600 mg tablet 600 mg PO Q8H PRN (Reason: headache) melatonin 5 mg tablet 5 - 10 mg PO BEDTIME PRN rosuvastatin 10 mg tablet 10 mg PO QAM clonazepam 0.5 mg tablet 1 mg PO BID PRN nicotine (polacrilex) 2 mg lozenge 2 mg PO simethicone [Gas Relief Extra Strength] 125 mg capsule 125 mg PO BEDTIME multivitamin Tablet 1 tab PO QAM omeprazole 40 mg capsule,delayed release(DR/EC) 40 mg PO QAM Print Language: Thai
[2024-11-04 10:57] VITALS: BP 124/76; PULSE 71; RESP 16; TEMP 36.6; O2SAT 97; BMI 20.3
[2024-11-04 11:23] LABS: MANUAL DIFF FLAG NO
[2024-11-04 11:26] LABS: Basophils Percent Auto 0.7 % (0-2); Eosinophils Absolute Auto 0.1 X10*3/uL (0.0-0.4); Eosinophils Percent Auto 2.1 % (0-4); Hematocrit 43.1 % (42.0-52.0); Hemoglobin 14.8 g/dl (14.0-18.0); Imm Gran Abs Auto 0.01 X10*3/uL (0.00-0.03); Imm Gran Pct Auto 0.2 % (0.0-0.4); Lymphocytes Absolute Auto 1.3 X10*3/uL (1.2-4.9); Lymphocytes Percent Auto 22.6 % (20-40); Mean Corpuscular HGB Conc 34.3 g/dl (31.0-36.0); Mean Corpuscular Hemoglobin 31.8 pg (27.0-33.0); Mean Corpuscular Volume 92.7 fL (80.0-98.0); Mean Platelet Volume 10.6 fL (9.4-12.4); Monocytes Absolute Auto 0.5 X10*3/uL (0.1-1.2); Monocytes Percent Auto 8.2 % (2-11); Neutrophils Absolute Auto 3.9 x10*3/uL (2.0-8.3); Neutrophils Percent Auto 66.2 % (45-73); Platelet Count 235 X10*3/uL (160-400); Red Blood Count 4.65 X10*6/uL (4.60-5.80); Red Cell Distribution Width 13.2 % (11.0-16.0); White Blood Count 5.8 X10*3/uL (4.8-10.8)
[2024-11-04 11:56] LABS: Alanine Aminotransferase 22 U/L (0-40); Albumin Level 4.3 g/dL (3.5-5.0); Alkaline Phosphatase 59 U/L (39-117); Anion Gap 12 (12-20); Aspartate Amino Transferase 30 U/L (5-37); Bilirubin Direct 0.3 mg/dL (0.0-0.5); Bilirubin Total 1.1 mg/dL (0.0-1.0); Blood Urea Nitrogen 15 mg/dL (9-16); Calcium 9.2 mg/dL (8.4-10.2); Carbon Dioxide 30 mmol/L (22-29); Chloride 101 mmol/L (96-108); Creatinine Clr Calc Pharmacy 77.3; Estimated Glomerular Filt Rate > 60; Glucose Random 89 mg/dL (60-115); Lipase 23 U/L (8-78); Potassium 4.4 mmol/L (3.3-5.1); Sodium 139 mmol/L (135-145); Total Protein 8.1 g/dL (6.5-8.0); Troponin-I High Sensitivity < 2.7 ng/L (<3.5-35.0)
[2024-11-04 12:02] LABS: Influenza A PCR NEGATIVE (Negative); Influenza B PCR NEGATIVE (Negative); Resp Syncy Virus RNA Qual PCR NEGATIVE (Negative); SARS COV2 PCR INHOUSE NEGATIVE (Negative)
--- NOTE | 2024-11-04 13:18 | PC.NURSE ---
seen and discharged by triage provider
--- OUTSIDE RECORDS SUMMARY | 2024-11-04 14:43 | XMS_ITS | Encounter Summary ---
Author Organization [employer] Address [address] [place] [address] Care Team Providers Care Form Tamping Machine Operator Name Role Phone Applegate [facility] Primary Care Provider Reason for Visit * Reason Onset Date Comments Triage 09/20/2022 Encounter Details Date Type Department Care Team ([facility] st Contact Info) Description 09/20/2022 Telephone [facility] MEDICINE [address] [place], [place] [phone] [facility] [address] [place] [address] Triage Social History Tobacco Use Types Packs/Day [...] 09/20/2022 11:55 AM EST Triage call with [place] Filling Machine Operator ID [id number] Pt reports an area on back that [...] No high acuity concerns reported by caller SLOVAK SPEAKER The caller accepted this outcome documented in this encounter Plan of Treatment Upcoming Encounters Date Type Department Care Team (Late st Contact Info) Description 04/24/2025 1:00 PM EDT Office Visit [facility] ADULT DENTAL [address] [place] [address] Zachariah, Claudette [address] [place] [address] documented as of this encounter Visit Diagnoses Not on filedocumented in this encounter Care Teams Form Tamping Machine Operator Relationship Specialty Start Date End Date Haily Robb FNP [address] [place] [address] PCP - General Family Medicine 05/01/22 documented as of this encounter
--- OUTSIDE RECORDS SUMMARY | 2024-11-04 14:43 | XMS_ITS | Encounter Summary ---
Author Organization [employer] Address [address] [place] [address] Care Team Providers Care Fighting Vehicle Systems Maintainer Name Role Phone [facility] Primary Care Provider [phone] Encounter Details Date Type Department Care Team [...] Description 04/24/2025 1:00 PM EDT Office Visit [facility] ADULT DENTAL [address] [place] [address] Zachariah, Claudette [address] [place] [address] documented as of this encounter Goals Goal Patient Goal Type Associated Problems Recent Progress Patient-Stated? Author Patient will adhere to medication regimen General Mary Chauhan documented as of this encounter Visit Diagnoses Not on filedocumented in this encounter Additional Health Concerns Assessment Noted Time PHQ-9 Depression Total Score: 0 10/10/19 25 1:23 PM EST documented as of this encounter Care Teams Fighting Vehicle Systems Maintainer Relationship Specialty Start Date End Date Haily Robb FNP [address] [place] [address] PCP - General Family Medicine 05/01/22 documented as of this encounter
--- OUTSIDE RECORDS SUMMARY | 2024-11-04 14:43 | XMS_ITS | Encounter Summary ---
Author Organization [employer] Address [address] [facility] [place] [address] Care Team Providers Care Field Software Engineer Name Role Phone Elizabeth [facility] Primary Care Provider [phone] Reason for Visit * Reason Onset Date Comments Med Refill 09/25/2023 Encounter Details Date Type Department Care Team ([facility] st Contact Info) Description 09/25/2023 Telephone [facility] MEDICINE [address] [place], [place] [phone] [facility] [address] [place] [address] Med Refill Social History Tobacco Use Types [...] with others, in a hotel, in a half-way, living outside on the street, on a [...] the past 12 months, has t he [employer], gas, oil or water company threatened to [...] 200 MG/ML injection To be sent to: [facility] - [place], [place] - [address] documented in this encounter Plan of Treatment Upcoming Encounters Date Type Department Care Team (Late st Contact Info) Description 04/24/2025 1:00 PM EDT Office Visit [facility] ADULT DENTAL [address] [place] [address] Claudette Soni [address] [place] [address] documented as of this encounter Visit Diagnoses Not on filedocumented in this encounter Additional Health Concerns Assessment Noted Time PHQ-9 Depression Total Score: 0 08/15/20 3:52 PM EST documented as of this encounter Care Teams Field Software Engineer Relationship Specialty Start Date End Date Haily Robb FNP [address] [place] [address] PCP - General Family Medicine 05/01/22 documented as of this encounter
--- OUTSIDE RECORDS SUMMARY | 2024-11-04 14:43 | XMS_ITS | Encounter Summary ---
Author Organization [employer] Address [address] [place] [address] Care Team Providers Care Geological Sample Tester Name Role Phone [place] [facility] Primary Care Provider [phone] Reason for Visit * Reason Onset Date Comments Medication Question 01/16/2023 Encounter Details Date Type Department Care Team ([facility] st Contact Info) Description 01/16/2023 Telephone [facility] MEDICINE [address] [place], [place] [phone] [facility] [address] [place] [address] Medication Question Social History Tobacco Use Types [...] Description 04/24/2025 1:00 PM EDT Office Visit [facility] ADULT DENTAL [address] [place], [place] [phone] Zachariah, Claudette [address] [place], [place] [phone] documented as of this encounter Visit Diagnoses Not on filedocumented in this encounter Additional Health Concerns Assessment Noted Time PHQ-9 Depression Total Score: 0 11/03/19 23 10:32 AM EST documented as of this encounter Care Teams Geological Sample Tester Relationship Specialty Start Date End Date Haily Robb FNP [address] [place] [address] PCP - General Family Medicine 05/01/22 documented as of this encounter
--- OUTSIDE RECORDS SUMMARY | 2024-11-04 14:43 | XMS_ITS | Encounter Summary ---
Author Organization [employer] Address [address] [facility] 7t [place] [address] Care Team Providers Care Volcanology Professor Name Role Phone Haily Robb Primary Care Provider [phone] Reason for Referral * Neurology (Routine) - Authorized Specialty Diagnoses / Procedures Referred By Jennifer kelsey Referred To Contact Diagnoses Polyneuropathy Procedures EMG Haily Robb FNP [address] [place] [address] Phone: tel: fax: [address] Phone: tel: fax: Referral ID Status Reason Start Date Expiration Date V isits Requested Visits Authorized [id number] Authorized 10/15/2024 10/15/2025 1 1 * Neurology (Routine) - Authorized Specialty Diagnoses / Procedures Referred By Contneva t Referred To Contact Diagnoses Polyneuropathy Procedures Nerve conduction test Haily Robb [facility] [address] [place] [address] Phone: tel: fax: [address] Phone: tel: fax: Referral ID Status Reason Start Date Expiration Date V isits Requested Visits Authorized [id number] Authorized 10/15/2024 10/15/2025 1 1 Reason for Visit * Reason Comments Follow-up Encounter Details Date Type Department Care Team (Latest Contact Info) Description 10/10/2024 1:15 PM EST Office Visit [facility] MEDICINE [address] [place] [address] Haily Robb FNP [address] [place] [address] Polyneuropathy (Primary Dx); Bilateral lower extremity edema; [...] documented in this encounter Progress Notes * [facility], SKIN CARE TECHNICIAN - 10/10/2024 1:15 PM EST SUBJECTIVE: John [...] daily with symptom improvement. 09/19/24-saw Dr. Hector [facility] nephrology for persistent proteinuria. Last note mentions positive P-ANCA with plan to repeat labs in 3 months however did not feel edema was related to kidneys. Renal function normal with minimal proteinuria 08/26-[facility] [place] with acute lower extremity edema and UTI. Ultrasound negative for DVT. BNP within normal limits 07/2024--hospitalized at [facility] with AMS in setting of acute urinary retention and BPH. Labs includingTSH and creatinine kinase all WNL negative CT angio chest abdomen during hospitalization. 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 Ataxia - Referral to [facility] neurology - Patient does not feel he [...] 3 Spacer/Aero-Holding Chambers (Pro Comfort Spacer Adult) [facility] Use with albuterol inhaler 1 each 0 [...] facility-administered medications on file prior to visit. Vietnamese Translation: Provided by [facility] staff member documented in this encounter Plan of Treatment Upcoming Encounters Date Type Department Care Team (Late st Contact Info) Description 04/24/2025 1:00 PM EDT Office Visit [facility] ADULT DENTAL [address] [place], [place] [phone] Zachariah, Claudette [address] [place] [address] Scheduled Orders Name Type Priority Associated Diagnoses [...] EST Narrative 10/10/2024 3:12 PM EST ? [facility] ?[address] ?[place] [address] ?XRay Report ? Signed ? Patient: John Fitzpatrick ?MR#: ?? [id number] ? : 1970 ?Acct:[id number] ? Age/Sex: 54 / M ?ADM Date: 10/10/24 ? Loc: HO.CARD ? Attending Dr: Pepper Balderrama MD ? Ordering Physician: Haily Robb ?? Date of Service: 10/10/24 ?? Procedure(s): XR knee RT 4V ?? Accession Number(s): [id number] ? cc: Haily Robb ? EXAMINATION: ?? [...] DD/ 1437 ? TD/TT: 10/10/24 1502 ? Screw Eye Assembler: ? Procedure Note Leonard Sanders - 10/10/[address] [place] [address] XRay Report Signed Patient: John Fitzpatrick [facility]#: [id number] : 1970Acct:[id number] Age/Sex: 54 / MADM Date: 10/10/24 Loc: CarissaCARD Attending Dr: Pepper Balderrama MD Ordering Physician: [facility] Date of Service: 10/10/24 Procedure(s): XR knee RT 4V Accession Number(s): [id number] cc: [facility] EXAMINATION: XR KNEE, RIGHT CLINICAL INFORMATION: chronic [...] 10/10/24 1509 DD/ 1437 TD/TT: 10/10/24 1502 Screw Eye Assembler: [facility] SKIN CARE TECHNICIAN IMG XR PROCEDURES Final Resul t * XR Knee 4+ Views Left (10/10/2024 2:37 PM EST) Anatomical Region Laterality Modality Lower Extremities, Knee Left Radiogra phic Imaging 10/10/2024 2:37 PM EST Narrative 10/10/2024 3:12 PM EST ? [facility] ?[address] ?[place] [address] ?XRay Report ? Signed ? Patient: Jr Ro,Jean ?MR#: ?? [id number] ? : 1970 ?Acct:[id number] ? Age/Sex: 54 / M ?ADM Date: 02/07/25 ? Loc: HO.CARD ? Attending Dr: Pepper Balderrama MD ? Ordering Physician: Haily Robb ?? Date of Service: 10/10/24 ?? Procedure(s): XR knee LT 4V ?? Accession Number(s): [id number] ? cc: Haily Robb ? EXAMINATION: ?? [...] DD/ 1437 ? TD/TT: 10/10/24 1502 ? Screw Eye Assembler: ? Procedure Note Marilyn, Image - 10/10/2024 [place] [address] XRay Report Signed Patient: John Fitzpatrick [facility]#: [id number] : 1970Acct:[id number] Age/Sex: 54 / MADM Date: 10/10/24 Loc: YOGESH Attending Dr: Pepper Balderrama MD Ordering Physician: Haily Robb Date of Service: 10/10/24 Procedure(s): XR knee LT 4V Accession Number(s): [id number] cc: Haily RobbP EXAMINATION: XR KNEE, LEFT [...] 10/10/24 1510 DD/ 1437 TD/TT: 10/10/24 1502 Screw Eye Assembler: [facility] IMG XR PROCEDURES Final Resul [...] documented as of this encounter Care Teams Volcanology Professor Relationship Specialty Start Date End Date Haily Robb FNP [address] [place] [address] PCP - General Family Medicine 05/01/22 documented as of this encounter
--- OUTSIDE RECORDS SUMMARY | 2024-11-04 14:43 | XMS_ITS | Encounter Summary ---
Author Organization [employer] Address [address] [facility] 7t [place] [address] Care Team Providers Care Stenographer Secretary Name Role Phone Clarisse [facility] Primary Care Provider [phone] Reason for Visit * Reason Onset Date Comments Appointment Request 10/08/2023 Encounter Details Date Type Department Care Team ([facility] st Contact Info) Description 10/08/2023 Telephone [facility] [address] [place], [place] [phone] [facility] [address] [place] [address] Appointment Request Social History Tobacco Use Types [...] gotten any better. Please contact pt at [phone] documented in this encounter Plan of Treatment Upcoming Encounters Date Type Department Care Team (Late st Contact Info) Description 04/24/2025 1:00 PM EDT Office Visit [facility] ADULT DENTAL [address] [place] [address] Zachariah, Claudette [address] [place] [address] documented as of this encounter Visit Diagnoses Not on filedocumented in this encounter Additional Health Concerns Assessment Noted Time PHQ-9 Depression Total Score: 0 08/15/20 23 3:52 PM EST documented as of this encounter Care Teams Stenographer Secretary Relationship Specialty Start Date End Date Haily Robb FNP [address] [place] [address] PCP - General Family Medicine 05/01/22 documented as of this encounter
--- OUTSIDE RECORDS SUMMARY | 2024-11-04 14:43 | XMS_ITS | Encounter Summary ---
Author Organization [employer] Address [address] [facility] [address] 7t [place] [address] Care Team Providers Care Mortgage Loan Coordinator Name Role Phone [place] [facility] Primary Care Provider Reason for Visit * Reason Comments Med Refill Encounter Details Date Type Department Care Team ([facility] st Contact Info) Description 07/08/2024 Refill [facility]INE [address] [place], [place] [phone] [facility] [address] [place] [address] Mixed anxiety and depressive disorder Social History [...] 1:00 PM EDT Office Visit [facility] ADULT DENTAL [address] [place] [address] Zachariah, Claudette [address] [place] [address] documented as of this encounter Goals Goal [...] documented as of this encounter Care Teams Mortgage Loan Coordinator Relationship Specialty Start Date End Date Haily Robb FNP [address] [place] [address] PCP - General Family Medicine 05/01/22 documented as of this encounter
--- OUTSIDE RECORDS SUMMARY | 2024-11-04 14:43 | XMS_ITS | Encounter Summary ---
Author Organization [employer] Address [address] [facility] 7t [place] [address] Care Team Providers Care Vein Pumper Name Role Phone Haily Robb BOOKKEEPING CLERK Primary Care Provider [phone] Reason for Visit * Reason Comments Med Refill Encounter Details Date Type Department Care Team ([facility] st Contact Info) Description 10/29/2023 Refill [facility] [address] [place], [place] [phone] Name, MD Collins [address] [place] [address] Chronic neck pain Social History Tobacco Use [...] with others, in a hotel, in a assisted, living outside on the street, on a [...] the past 12 months, has t he [employer] [place], gas, oil or water company threatened to [...] Office Visit [facility] ADULT DENTAL [address] [place] [address] Zachariah, Claudette [address] [place] [address] documented as of this encounter Visit Diagnoses Diagnosis Chronic neck pain Cervicalgia documented in this encounter Additional Health Concerns Assessment Noted Time PHQ-9 Depression Total Score: 0 08/15/20 23 3:52 PM EST documented as of this encounter Care Teams Vein Pumper Relationship Specialty Start Date End Date Haily Robb FNP [address] [place] [address] PCP - General Family Medicine 05/01/22 documented as of this encounter
--- OUTSIDE RECORDS SUMMARY | 2024-11-04 14:43 | XMS_ITS | Encounter Summary ---
Author Organization [employer] Address [address] [facility] 7t [place] [address] Care Team Providers Care Filling Winder Name Role Phone [facility] Primary Care Provider [phone] Reason for Visit * Reason Comments Med Refill Encounter Details Date Type Department Care Team ([facility] st Contact Info) Description 09/05/2022 Telephone [facility] MED[facility] [address] [place], [place] [phone] [facility] [address] [place] [address] Med Refill Social History Tobacco Use Types [...] - 09/06/2022 8:18 AM EST TC via P/I#[id number], explained to pt that his [facility] [address] [facility] Provided pt the phone number for the [facility] site and encouraged him to call them for all refills of his Clonazepam. Pt thanked story writer and said he understood. * Telephone Encounter - Yessi Cannon RN - 09/05/2022 3:04 PM EST Note on 08/02/22: Medication request:CLONAZEPAM Last visit 06/27/22. You sent a refill in June, it was picked up 07/12/22. He was originally getting this elsewhere. Not sure what you'd like to do. If you'll now be prescribing, then would you like him on MANAGER LOAN? documented in this encounter Plan of Treatment Upcoming Encounters Date Type Department Care Team (Late st Contact Info) Description 04/24/2025 1:00 PM EDT Office Visit [facility] ADULT DENTAL [address] [place] [address] Claudette Soni [address] [place] [address] documented as of this encounter Visit Diagnoses Diagnosis Other specified anxiety disorders documented in this encounter Care Teams Filling Winder Relationship Specialty Start Date End Date Haily Robb FNP [address] [place] [address] PCP - General Family Medicine 05/01/22 documented as of this encounter
--- OUTSIDE RECORDS SUMMARY | 2024-11-04 14:43 | XMS_ITS | Encounter Summary ---
Author Organization [employer] Address [address] [facility] [address] 7[address] [place] [address] Care Team Providers Care Recreation Facilities Supervisor Name Role Phone Clarisse [facility] Primary Care Provider [phone] Reason for Visit * Reason Onset Date Comments triage 11/10/2022 Encounter Details Date Type Department Care Team ([facility] st Contact Info) Description 11/10/2022 Telephone [facility] [address] [place], [place] [phone] [facility] [address] [place] [address] triage Social History Tobacco Use Types Packs/Day [...] in office. Pt agrees to come into [facility] for exam. Pt also advised to call [...] question The caller accepted this outcome speaks croatian documented in this encounter Plan of Treatment Upcoming Encounters Date Type Department Care Team (Late st Contact Info) Description 04/24/2025 1:00 PM EDT Office Visit [facility] ADULT DENTAL [address] [place] [address] Zachariah, Claudette [address] [place] [address] documented as of this encounter Visit Diagnoses Not on filedocumented in this encounter Additional Health Concerns Assessment Noted Time PHQ-9 Depression Total Score: 0 11/03/19 10:32 AM EST documented as of this encounter Care Teams Recreation Facilities Supervisor Relationship Specialty Start Date End Date Haily Robb FNP [address] [place] [address] PCP - General Family Medicine 05/01/22 documented as of this encounter
--- OUTSIDE RECORDS SUMMARY | 2024-11-04 14:43 | XMS_ITS | Encounter Summary ---
Author Organization [employer] Address [address] [facility] [address] [place] [address] Care Team Providers Care Kitchen Cleaner Name Role Phone [facility] Primary Care Provider [phone] Reason for Visit * Reason Onset Date Comments Medication Question 08/24/2022 Encounter Details Date Type Department Care Team ([facility] st Contact Info) Description 08/24/2022 Telephone [facility] MED[facility]INE [address] [place] [address] [facility] [address] [place] [address] Medication Question Social History Tobacco Use Types [...] requesting a call back. States went to pickle processor his medication and they gave him vitamin C and he would like to know if he should be taking them again . Please call to clarify. documented in this encounter Plan of Treatment Upcoming Encounters Date Type Department Care Team (Late st Contact Info) Description 04/24/2025 1:00 PM EDT Office Visit [facility] ADULT DENTAL [address] [place], [place] [phone] Claudette Soni [address] [place] [address] documented as of this encounter Visit Diagnoses Not on filedocumented in this encounter Care Teams Kitchen Cleaner Relationship Specialty Start Date End Date Haily Robb FNP [address] [place] [address] PCP - General Family Medicine 05/01/22 documented as of this encounter
--- OUTSIDE RECORDS SUMMARY | 2024-11-04 14:43 | XMS_ITS | Clinical Summary ---
Author Organization [employer] Address [address] [facility] [address] [place] [address] Care Team Providers Care Manager Heavy Duty Name Role Phone Haily Robb [facility] Primary Care Provider [phone] Allergies Active Allergy Reactions Criticality Noted Date [...] heezing Use with albuterol inhaler 1 each 023 Active cholecalciferol (D3 Super Strength) 50 MCG (1999 UT) capsuleIndication s:Vitamin D deficiency TAKE 1 CAPSULE BY MOUTH EVERY DAY 90 capsule 3 024 Active BD Plastipak Syringe 3 ML misc USE DIRECTED 024 Active tamsulosin (Flomax) 0.4 MG 24 hr capsule Take 0.8 mg by mouth Once per day. 024 Active hydrOXYzine HCl (Atarax) 25 MG tabletIndications :Chronic pruritus TAKE 1 TABLET BY MOUTH EVERY 6 HOURS NEEDED FOR ANXIETY OR FOR ITCHING 120 tablet 024 Active Blood Pressure kit Check blood pressure daily 1 kit 024 Active docusate sodium (Colace) 100 MG capsuleIndication s:Gas pain Take 1 capsule (100 mg) by mouth 2 times daily. 180 capsule Active Ventolin HFA 108 (90 Base) MCG/ACT inhalerIndication s:Wheezing INHALE 2 PUFFS BY MOUTH EVERY 4 HOURS NEEDED FOR WHEEZING OR SHORTNESS OF BREATH 18 g 11 Active meloxicam (Mobic) 7.5 MG tablet Take 1 tablet (7.5 mg) by mouth 2 times daily. 60 tablet 11 2024 Active cromolyn (Nasachrom) 5.2 MG/ACT nasal sprayIndications: Nasal congestion Administer 1 spray into each nostril 4 times daily. 26 mL 12 2024 Active loratadine (Claritin) 10 MG tabletIndications :Nasal congestion Take 1 tablet (10 mg) by mouth Once per day. 30 tablet 11 2024 Active gabapentin (Neurontin) 600 MG tabletIndications :Restless leg Take 1 tablet (600 mg) by mouth at bedtime. 30 tablet 11 024 2024 Active fluticasone (Flonase) 50 MCG/ACT nasal sprayIndications: Nasal congestion Administer 2 sprays into each nostril Once per day. Shake gently. Before first use, prime pump. After use, clean tip and replace cap.INSTILL 2 SPRAYS IN EACH NOSTRIL ONCE DAILY 48 g 3 Active alfuzosin ER (Uroxatral) 10 MG 24 hr tablet Take 1 tablet by mouth at bedtime. Active ARIPiprazole (Abilify) 10 MG tablet Take 1 tablet by mouth at bedtime. Active Restasis 0.05 % ophthalmic emulsion Administer 1 drop into both eyes 2 times daily. Active Lotemax 0.5 % gel INSTILL 1 DROP INTO RIGHT EYE 4 TIMES A DAY Active BD Hypodermic Needle 18G X 1 misc USE DIRECTED Active rosuvastatin (Crestor) 10 MG tabletIndications :Mixed hyperlipidemia TAKE 1 TABLET BY MOUTH EVERY MORNING 90 tablet 3 Active furosemide (Lasix) 20 MG tabletIndications :Bilateral lower extremity edema Take 2 tablets (40 mg) by mouth Once per day. 60 tablet 2 025 2025 Active melatonin 5 MG tabletIndications :Mixed anxiety and depressive disorder TAKE 1 TO 2 TABLETS BY MOUTH AT BEDTIME NEEDED 60 tablet 2 025 Active diazePAM (Valium) 5 MG tabletIndications :Anxiety due to invasive procedure Take 1 tablet by oral route 30 minutes before procedure 2 tablet 025 Active acetaminophen (Tylenol 8 Hour) 650 MG ER tablet TAKE 1 TABLET BY MOUTH EVERY 8 HOURS NEEDED FOR MILD PAIN DO NOT BREAK, CRUSH, DISSOLVE OR CHEW 60 tablet 1 025 Active omeprazole (PriLOSEC) [address] capsuleIndication s:Epigastric pain TAKE 1 CAPSULE BY MOUTH EVERY MORNING BEFORE BREAKFAST 90 capsule 1 025 Active amitriptyline (Elavil) 10 MG tabletIndications :Polyneuropathy Take 1 tablet (10 mg) by mouth at bedtime. 90 tablet 3 025 2025 Active cyclobenzaprine (Flexeril) 5 MG tabletIndications :Muscle spasm Take 1 tablet (5 mg) by mouth at bedtime. 15 tablet 024 2024 Discontinued omeprazole (PriLOSEC) [address] capsuleIndication s:Epigastric pain TAKE 1 CAPSULE BY MOUTH EVERY MORNING BEFORE BREAKFAST 90 capsule 1 024 2024 Discontinued acetaminophen (Tylenol 8 Hour) 650 MG ER tablet TAKE 1 TABLET BY MOUTH EVERY 8 HOURS NEEDED FOR MILD PAIN DO NOT BREAK, CRUSH, DISSOLVE OR CHEW 60 tablet 1 024 2024 Discontinued amitriptyline (Elavil) 10 MG tabletIndications :Polyneuropathy Take 0.5 tablets (5 mg) by mouth at bedtime. 15 tablet 11 025 2024 Discontinued(R eorder (will not trigger notification to Pharmacy)) Active Problems Problem Noted Date Diagnosed Date [...] ? Established with therapy and psychiatry at [facility] ? ? No rash, fever, chills, [...] for anxiety sxs) that comes referred from [facility] for exacerbated anxiety in presence of [...] a good support system through his family, muslim and recovery network, as well as having [...] to explore potential nerve damage due to half-way use of anxiolytics, even though John is on low dose medication. At this time is unclear if crawling/burning sensation on skin is solely due to medical and/or somatic presentation. However, sxs are causing significant psychological distress in patient. John was given information on how to reach out to [facility] team and HC numbers for crisis. [...] male 11/02/2022 Overview (11/02/2022): ?? Followed by [facility] urology Dr. Lux ?? subcutaneous testosterone injection [...] 02/22/2017 Overview (08/05/2023): ? ? Followed by [facility] ? ? Clonazepam PRN ? ? Clonidine PRN Assessment & Plan (11/06/2022 5:05 AM EST): Spoke with pharmacy-the blue conazepam tablets that patient prefer are from a different c java developer and are on back order. ?? Pt [...] Encounters Date Type Department Care Team Description 11/04/2024 Orders Only [facility] External Provider, [facility] 10/31/2024 Telephone [facility] [address] [place] [address] Haily Robb FNP Results 10/30/2024 Refill [facility] [address] [place], [place] [phone] Haily Robb FNP Epigastric pain 10/28/2024 Refill [facility] [address] [place], [place] [phone] Haily Robb FNP Polyneuropathy 10/28/2024 Refill [facility] [address] [place], [place] [phone] Haily Robb FNP 10/22/2024 1:00 PM EST Office Visit [facility] [address] [place] [address] Claudette Soni Partial edentulism, unspecified edentulism class (Primary Dx); Dental calculus; Generalized gingival recession, moderate; Normal oral exam 10/14/2024 Telephone [facility] [address] [place] [phone] WillowHaily molina FNP Results 10/10/2024 1:15 PM EST Office Visit [address] [address] WillowHaily molina FNP Polyneuropathy (Primary Dx); Bilateral lower extremity edema; Ataxia; Chronic pain of both knees; Anxiety due to invasive procedure; Shortness of breath 10/10/2024 Travel 10/01/2024 Refill [facility] [address] [place] [phone] WillowHaily molina FNP Mixed anxiety and depressive disorder 09/24/2024 2:40 PM EST Office Visit [facility] [address] [place] [phone] Pepper Balderrama MD Bilateral lower extremity edema (Primary Dx) 09/16/[address] [address] WillowHaily molina FNP Durable Medical Equipment (Compression stockings) 09/12/2024 Telephone [facility] [address] [place] [phone] WillowHaily FNP 09/02/[address] [address] WillowHaily [facility] Durable Medical Equipment (Compression stockings) 09/01/2024 1:15 PM EST Office Visit [address] [address] Hoa Dueñas NP Urinary retention (Primary Dx); Bilateral lower extremity edema 08/29/[address] [address] Leticia Rashid MA Chart Prep 08/28/[address] [address] [facility] Mixed anxiety and depressive disorder 08/19/[address] [address] Willow Mckeon, RN Results 08/18/2024 Orders Only [facility] [address] [place] [phone] [facility] Proteinuria, unspecified type (Primary Dx) 08/17/[address] [address] [facility] Mixed hyperlipidemia 08/15/[address] [address] [facility] No Show (Patient no show HDF ) 08/15/[address] [address] [facility] Appointment Request 08/14/2024 11:00 AM EST Office Visit [facility] [address] [place] [phone] Rakan Mares MD Bilateral lower extremity edema (Primary Dx); JODY (generalized anxiety disorder) 08/14/2024 Orders Only [address] [address] [facility] 08/14/[address] [address] Willow Mckeon, RN Care Coordination 08/08/2024 1:00 PM EST Office Visit [facility] [address] [place] [address] [address] [facility] Bilateral lower extremity edema (Primary Dx); Proteinuria, unspecified type; Nasal congestion 08/08/2024 Telephone [facility] [address] [address] Griselda Bonner, RN EMR search Hx from Last 3 Months Immunizations Name Administration [...] Description 04/24/2025 1:00 PM EDT Office Visit [facility] [address] [place] [address] Zachariah, Claudette [address] [place] [address] Health Maintenance Due Date Last Done Comments CT Colonography 1968 Colonoscopy 1968 Colorectal Cancer Screening 1968 FIT DNA/Cologuard 1968 FIT 1968 FOBT 1968 Sigmoidoscopy 1968 DTaP/Tdap/Td Vaccines (1 - Tdap) 1987 Pneumococcal Vaccine: 50+ Years (1 of 1 - PCV) 2018 Hepatitis B Vaccines (2 of 2 - CpG 2-dose series) 12/14/2022 11/16/2022 Zoster Vaccines (2 of 2) 01/11/2023 11/16/2022 COVID-19 Vaccine (6 - season) 2024 04/27/2022, 04/27/2022, 08/16/2021, Additional history [...] 75+ series) 2043 HIV Screening Completed 03/22/2023, 0302/2023, 05/05/2021, Additional history exists Hepatitis C Screening [...] Procedure Name Priority Date/Time Associated Diagnosis Comments US ABDOMEN LIMITED Routine 11/04/2024 11 :49 AM EST XR CHEST 2 VIEWS Routine 11/04/2024 11:0 0 AM EST PERIODIC ORAL EVALUATION - ESTABLISHED PATIENT Routine [...] URINE, ROUTINE Routine 08/14/2024 12:00 AM EST HEMOGLOBIN A1C Routine 06/20/2024 3:05 PM [...] Recently Relevant to Health Maintenance Results * US Abdomen Limited (11/04/2024 11:49 AM EST) Anatomical Region Laterality Modality Abdomen Ultrasound 11/04/2024 11:4 9 AM EST Narrative 11/04/2024 12:32 PM EST ? [facility] ?[address] ?[place] [address] ? Ultrasound Report ? Signed ? Patient: Jr Ro,Jean ?MR#: ?? [id number] ? : 1970 ?Acct:[id number] ? Age/Sex: 54 / M ?ADM Date: 03/04/25 ? Loc: HO.ED ? Attending Dr: ? Ordering Physician: Lorena Banks DO ?? Date of Service: 11/04/24 ?? Procedure(s): US abdomen limited ?? Accession Number(s): [id number] ? cc: Lorena Banks DO; Haily Robb INFORMATION TECHNOLOGY TEACHER ? EXAMINATION: ?? US ABDOMEN LIMITED ? CLINICAL INFORMATION: ?? Epigastric pain. ? COMPARISON: ?? March 15, 2022. ? TECHNIQUE: ?? Real-time imaging of the right upper quadrant abdominal viscera, ?? Limited. ? FINDINGS: ? PANCREAS: No peripancreatic fluid collections. ? LIVER: 16 cm. Coarse echotexture. No nodular surface. No solid or ?? cystic lesion. Main portal vein is patent with normal hepatopedal flow ?? direction. No intrahepatic biliary ductal dilatation. ? GALLBLADDER: Fluid-filled and contracted. No pericholecystic fluid ?? collection or gallbladder wall thickening. ? COMMON BILE DUCT: 6 mm. ? RIGHT KIDNEY: 11 cm. No solid or cystic lesion. No hydronephrosis. ?? Normal renal cortical thickness. Normal echotexture. There is flow on ?? color Doppler interrogation of the renal hilum. ? FREE FLUID: None. ? US/US abdomen limited ?? IMPRESSION: ?? No cholelithiasis. ?? Prominent, 6 mm common bile duct. Choledocholithiasis cannot be ?? excluded. ?? Hepatomegaly, mild. ?? No hydronephrosis, right kidney. ? Electronically signed by: ??Darryl Zaidi MD ??11/04/2024 12:28 PM ?? EST ? Dictated By: ?Darryl Rey MD ? Signed By: ?<Electronically signed by Darryl Lynn MD in OV> ? 11/04/24 1228 ? DD/ 1149 ? TD/TT: 11/04/24 1202 ? Call Center Analyst: ? Procedure Note Leonard Sanders - 11/04/[address] [address] Ultrasound Report Signed Patient: John Fitzpatrick [facility]#: [id number] : 1970Acct:[id number] Age/Sex: 54 / MADM Date: 11/04/24 Loc: HO.ED Attending Dr: Ordering Physician: Lorena Banks DO Date of Service: 11/04/24 Procedure(s): US abdomen limited Accession Number(s): [id number] cc: Lorena Banks DO; [facility] EXAMINATION: US ABDOMEN LIMITED CLINICAL INFORMATION: Epigastric pain. COMPARISON: March 15, 2022. TECHNIQUE: Real-time imaging of the right upper quadrant abdominal viscera, Limited. FINDINGS: PANCREAS: No peripancreatic fluid collections. LIVER: 16 cm. Coarse echotexture. No nodular surface. No solid or cystic lesion. Main portal vein is patent with normal hepatopedal flow direction. No intrahepatic biliary ductal dilatation. GALLBLADDER: Fluid-filled and contracted. No pericholecystic fluid collection or gallbladder wall thickening. COMMON BILE DUCT: 6 mm. RIGHT KIDNEY: 11 cm. No solid or cystic lesion. No hydronephrosis. Normal renal cortical thickness. Normal echotexture. There is flow on color Doppler interrogation of the renal hilum. FREE FLUID: None. US/US abdomen limited IMPRESSION: No cholelithiasis. Prominent, 6 mm common bile duct. Choledocholithiasis cannot be excluded. Hepatomegaly, mild. No hydronephrosis, right kidney. Electronically signed by: Darryl Zaidi MD 11/04/2024 12:28 PM EST Dictated By: Darryl Rey MD Signed By: <Electronically signed by Darryl Lynn MDin OV> 11/04/24 1228 DD/ 1149 TD/TT: 11/04/24 1202 Call Center Analyst: [facility] External Provider IMG US PROCEDURES Final Result * XR Chest 2 Views (11/04/2024 11:00 AM EST) Anatomical Region Laterality Modality Chest Radiographic Cecelia ging 11/04/2024 11:0 0 AM EST Narrative 11/04/2024 11:49 AM EST ? [facility] ?[address] ?[place] [address] ?XRay Report ? Signed ? Patient: John Fitzpatrick ?MR#: ?? [id number] ? : 1970 ?Acct:[id number] ? Age/Sex: 54 / M ?ADM Date: 11/04/24 ? Loc: HO.ED ? Attending Dr: ? Ordering Physician: Lorena Banks DO ?? Date of Service: 11/04/24 ?? Procedure(s): XR chest 2V ?? Accession Number(s): [id number] ? cc: Lorena Banks DO; Haily Robb INFORMATION TECHNOLOGY TEACHER ? EXAMINATION: ?? XR CHEST ? CLINICAL INFORMATION: ?? chest pain ? COMPARISON: ?? Chest 07/09/2024 ? TECHNIQUE: ?? 2 views of the chest were obtained. ? FINDINGS: ?? No significant abnormality is noted involving the heart, lungs, ?? mediastinum, bony thorax or soft tissues. ? XR/XR chest 2V ?? IMPRESSION: ?? Unremarkable chest examination. ? Electronically signed by: ??Mateusz Parker MD ??11/04/2024 11:46 AM EST RP ? Dictated By: ?Mateusz Parker MD ? Signed By: ?<Electronically signed by Mateusz Parker MD in OV> ?11/04/24 1146 ? DD/ 1100 ? TD/TT: 11/04/24 1125 ? Call Center Analyst: MSM ? Procedure Note Leonard Sanders - 11/04/2024 [place] [address] XRay Report Signed Patient: John Fitzpatrick [facility]#: [id number] : 1970Acct:[id number] Age/Sex: 54 / MADM Date: 11/04/24 Loc: HO.ED Attending Dr: Ordering Physician: Lorena Banks DO Date of Service: 11/04/24 Procedure(s): XR chest 2V Accession Number(s): [id number] cc: Lorena Banks DO; Haily Robb INFORMATION TECHNOLOGY TEACHER EXAMINATION: XR CHEST CLINICAL INFORMATION: chest pain COMPARISON: Chest 07/09/2024 TECHNIQUE: 2 views of the chest were obtained. FINDINGS: No significant abnormality is noted involving the heart, lungs, mediastinum, bony thorax or soft tissues. XR/XR chest 2V IMPRESSION: Unremarkable chest examination. Electronically signed by: Mateusz Parker MD 11/04/2024 11:46 AM EST RP Dictated By: Mateusz Parker MD Signed By: <Electronically signed by Mateusz Parker MD in OV> 11/04/24 1146 DD/ 1100 TD/TT: 11/04/24 1125 Call Center Analyst: REY [facility] External Provider IMG XR PROCEDURES Final Result * XR Knee 4+ Views Right (10/10/2024 2:37 PM EST) Anatomical Region Laterality Modality Lower Extremities, Knee Right Radiogra phic Imaging 10/10/2024 2:37 PM EST Narrative 10/10/2024 3:12 PM EST ? [facility] ?[address] ?[place] [address] ?XRay Report ? Signed ? Patient: John Fitzpatrick ?MR#: ?? [id number] ? : 1970 ?Acct:[id number] ? Age/Sex: 54 / M ?ADM Date: 10/10/24 ? Loc: HO.CARD ? Attending Dr: Pepper Balderrama MD ? Ordering Physician: Haily Robb ?? Date of Service: 10/10/24 ?? Procedure(s): XR knee RT 4V ?? Accession Number(s): [id number] ? cc: Haily Robb INFORMATION TECHNOLOGY TEACHER ? EXAMINATION: ?? XR KNEE, RIGHT ? [...] DD/ 1437 ? TD/TT: 10/10/24 1502 ? Call Center Analyst: ? Procedure Note Donsalomon, Leonard - 10/10/[address] [address] XRay Report Signed Patient: John Fitzpatrick [facility]#: [id number] : 1970Acct:[id number] Age/Sex: 54 / MADM Date: 10/10/24 Loc: .[facility] Attending Dr: Pepper Balderrama MD Ordering Physician: Haily Robb [facility] Date of Service: 10/10/24 Procedure(s): XR knee RT 4V Accession Number(s): [id number] cc: WillowHaily molina [facility] EXAMINATION: XR KNEE, RIGHT CLINICAL INFORMATION: [...] 10/10/24 1509 DD/ 1437 TD/TT: 10/10/24 1502 Call Center Analyst: [facility] INFORMATION TECHNOLOGY TEACHER IMG XR PROCEDURES Final Resul t * XR Knee 4+ Views Left (10/10/2024 2:37 PM EST) Anatomical Region Laterality Modality Lower Extremities, Knee Left Radiogra phic Imaging 10/10/2024 2:37 PM EST Narrative 10/10/2024 3:12 PM EST ? [facility] ?[address] ?[place] [address] ?XRay Report ? Signed ? Patient: Jr Ro,Jean ?MR#: ?? [id number] ? : 1970 ?Acct:[id number] ? Age/Sex: 54 / M ?ADM Date: 10/10/24 ? Loc: HO.CARD ? Attending Dr: Pepper Balderrama MD ? Ordering Physician: Haily Robb ?? Date of Service: 10/10/24 ?? Procedure(s): XR knee LT 4V ?? Accession Number(s): [id number] ? cc: Haily Robb ? EXAMINATION: ?? [...] DD/ 1437 ? TD/TT: 10/10/24 1502 ? Call Center Analyst: ? Procedure Note Leonard Sanders - 10/10/[address] [address] XRay Report Signed Patient: John Fitzpatrick [facility]#: [id number] : 1970Acct:[id number] Age/Sex: 54 / MADM Date: 10/10/24 Loc: YOGESH Attending Dr: Pepper Balderrama MD Ordering Physician: Haily Robb [facility] Date of Service: 10/10/24 Procedure(s): XR knee LT 4V Accession Number(s): [id number] cc: Haily Robb [facility] EXAMINATION: XR KNEE, LEFT CLINICAL INFORMATION: [...] 10/10/24 1510 DD/ 1437 TD/TT: 10/10/24 1502 Call Center Analyst: [facility] IMG XR PROCEDURES Final Resul t * (ABNORMAL) Protein Creatinine Ratio, Urine (08/14/2024 12:07 PM EST) Creatinine, Urine 175.97 mg/dL [facility] Protein, Total, Random Urine 41(H) <12 mg/dL [facility] Protein/Creati nine Ratio, Ur 0.23(H) <0.2 [facility] Comment:The spot urine prote in:creatinine ratio may increase to 0.3during normal . 08/14/2024 12:0 7 PM EST 08/14/2024 1:13 PM EST [facility] LAB URINE ORDERABLES Final Re sult [facility] [address] [place] [phone] * (ABNORMAL) Urinalysis, Complete, with Reflex to Culture (08/14/2024 12:07 PM EST) Color Urine Yellow [facility] Appearance Urine Cloudy [facility] PH 6.0 5.0 - 9.0 [facility] Glucose Urine UA Negative Negative mg/dL [facility] Urine Blood Negative Negative [facility] Specific [place] - Urine 1.020 1.005 - 1.025 [facility] Urine Protein 30 (1+)(A) Neg-Trace mg/dL [facility] Urine Ketones Trace Negative mg/dL [facility] Nitrite Urine Negative Negative [facility] Leukocyte Esterase Urine Trace(A) Negative [facility] RBC Urine 0-2 0 - 2 /HPF [facility] Urine WBC 6-10(A) 0 - 5 /HPF [facility] Urine Squamous Epithelial Cell 0-2 0 - 2 /HPF [facility] Urine Bacteria None Seen None Seen [facility] Hyaline Casts, Urine 0-2 0 - 2 /LPF [facility] Urine 08/14/2024 12:0 7 PM EST 08/14/2024 1:13 PM EST Narrative [facility] - 08/14/2024 2:00 PM EST Urine, Clean Catch [facility] URINE ORDERABLES Final Re sult [facility] [address] [place] [phone] * (ABNORMAL) Comprehensive Metabolic Panel (08/14/2024 12:07 PM EST) [facility] Sodium 141 135 - 145 mmol/L [facility] Potassium 3.8 3.3 - 5.1 mmol/L [facility] Chloride 101 96 - 108 mmol/L [facility] Carbon Dioxide 30(H) 22 - 29 mmol/L [facility] Anion Gap 14 12 - 20 [facility] Urea Nitrogen (BUN) 13 9 - 16 mg/dL [facility] Creatinine, Serum 0.95 0.5 - 1.4 mg/dL [facility] Estimated Glomerular Filt Rate >60 [facility] Comment:Chronic Kidney Disea se: Estimated GFR < 60 mL/min/[id number] Kidney Disease: Estimated GFR < 15 mL/min/1.73m2 Glucose 118(H) 60 - 115 mg/dL [facility] Calcium 10.1 8.4 - 10.2 mg/dL [facility] Bilirubin, Total 1.0 0.0 - 1.0 mg/dL [facility] Aspartate Amino Transferase 42(H) 5 - 37 U/L [facility] Alanine Aminotransferase 42(H) 0 - 40 U/L [facility] Total Protein 8.1(H) 6.5 - 8.0 g/dL [facility] Albumin Level 4.8 3.5 - 5.0 g/dL [facility] Alkaline Phosphatase 56 39 - 117 U/L [facility] Blood Venous blood specimen / Unknown 08/14/2024 12:07 PM EST 08/14/2024 1:13 PM EST [facility] LAB BLOOD ORDERABLES Final Re sult Performing Organization Address City/[facility]/ZIP Co de Phone Number [facility] [address] [place] [phone] * Culture, Urine, Routine (08/14/2024 12:00 AM EST) Urine Urine specimen obtained by clean catch procedure / Unknown 08/14/2024 08/14/2024 Comment:CC Narrative [facility] - 08/15/2024 11:40 AM EST Urine Culture No growth. Specimen Source: Urine clean catch [facility] MICROBIOLOGY - GENERAL OR DERABLES Final Result Performing Organization Address [facility] Co de Phone Number [facility] [address] [place] [phone] * Hemoglobin A1c (06/20/2024 3:05 PM EDT) Hemoglobin A1c 5.7 <6.0 % [facility] Comment:Hemoglobin A1C Refer ence Range Adults: 4.8 - 6.0 % Non diabetic: < 6.0 % Goal: < 7.0 %Additional Action Suggested: > 8.0 %Note: Hemoglobin A1c results are invalid for patients with abnormal amounts of HbF. Blood transfusions may impact the HbA1c concentration in the patient sample. Estimated Average Glucose 117 mg/dL [facility] Comment:eAG = Estimated ave rage glucose which is %A1C expressed asaverage glucose, using the formula of the [id number] Glucose study (ADAG), Diabetes Care, Vol.31,#8,Apr. 2007 Blood Venous blood specimen / Unknown 06/20/2024 3:05 PM EDT 06/20/2024 4:21 PM EDT [facility] [place] BLOOD ORDERABLES Final Resul t [facility] [address] [place] [phone] * Lipid Panel, Standard (03/19/2024 9:34 AM EDT) Triglycerides 66 <150 mg/dL [facility] Comment:Desirable Triglyceri de: less than 150 mg/dLBorderline High Triglyceride 150-199 mg/dLHigh Triglyceride: 200-499 mg/dLVery High Triglyceride: greater than or equal to 5OO mg/dL Cholesterol 112 <200 mg/dL [facility] Comment:Desirable Cholestero l: less than 200 mg/dLBorderline High Cholesterol: 200-239 mg/dLHigh Cholesterol: greater than 239 mg/dL LDL Cholesterol Calculated 58 <100 mg/dL [facility] Comment:Desirable LDL: less than 100 mg/dLNear Optimal/Above Optimal LDL: 110- 129 mg/dLBorderline High LDL: 130-159 mg/dLHigh LDL: 160-189 mg/dLVery High LDL: greater than or equal to 190 mg/dL HDL Cholesterol 41 >40 mg/dL [facility] Comment:Desirable HDL: great er than 40 mg/dL Note: This HDL assay may give artificially low results in patients with liver disease. Blood Venous blood specimen / Unknown 03/19/2024 9:34 AM EDT 03/19/2024 11:12 AM EDT us Roxana Shen [facility] BLOOD ORDERABLES Final R esult Performing Organization Address [facility] de Phone Number [facility] [address] [place] [phone] * Hepatitis C Viral RNA, Quantitative, Real-Time PCR (03/22/2023 11:53 AM EDT) Hepatitis C Viral Load <15 NOT DETECTED NOT DETECTED IU/mL [facility] HCV Log PCR <1.18 NOT DETECTED NOT DETECTED Log IU/mL [facility] Comment:This test was perfor med using Real-Time Polymerase ChainReaction.Reportable Range: 15 IU/mL to 100,000,000 IU/mL(1.18 Log IU/mL to 8.00 Log IU/mL).The analytical performance characteristics of thisassay have been determined by [facility].The modifications have not been cleared or approved bythe FDA. This assay has been validated pursuant to theCLIA regulations and is used for clinical purposes.For more information on this test, go to:http://education.Empressr/faq/CGH57f4(This link is being provided for informational/educational purposes only.)THIS TEST WAS PERFORMED AT:[facility] [place] [id number] GONG MD Blood 03/22/2023 11:5 3 AM EDT 03/22/2023 1:32 PM EDT Jessica Guillen INFORMATION TECHNOLOGY TEACHER LAB BLOOD ORDERABLES Final Res ult Performing Organization Address [facility]/ZIP Co de Phone Number [facility] [address] [place] [phone] * HIV-1 RNA, Quantitative, Real-Time PCR (03/22/2023 11:53 AM EDT) HIV RNA PCR Qn Copies NOT DETECTED NOT DETECTED copies/mL [facility] HIV RNA PCR Qn Log Copies NOT DETECTED NOT DETECTED [facility] Comment:Result Units: Log co pies/mLThis test was performed using Real-Time Polymerase ChainReaction.Reportable Range: 20 copies/mL to 10,000,000 copies/mL(1.30 log copies/mL to 7.00 log copies/mL).THIS TEST WAS PERFORMED AT:[facility] [place] [phone] GONG MD Blood Venous blood specimen / Unknown 03/22/2023 11:53 AM EDT 03/22/2023 1:32 PM EDT us Jessica Guillen INFORMATION TECHNOLOGY TEACHER LAB BLOOD ORDERABLES Final Res ult [facility] [address] [place] [address] [phone] from Last 3 Months or Most Recently Relevant to Health Maintenance Insurance [facility] C3 DENTAL-[facility] MEDICAID STAND ADULT Care Teams Manager Heavy Duty Relationship Specialty Start Date End Date WillowHaily FNP [address] [place] [phone] PCP - General Family Medicine 05/01/22
--- OUTSIDE RECORDS SUMMARY | 2024-11-04 14:44 | XMS_ITS | Encounter Summary ---
Author Organization [employer] Address [address] [place] [address] Care Team Providers Care Art Installer Name Role Phone [place] [facility] Primary Care Provider [phone] Reason for Visit * Reason Comments Med Refill Encounter Details Date Type Department Care Team ([facility] st Contact Info) Description 08/28/2024 Refill [facility] [address] [place], [place] [phone] [facility] [address] [place] [address] Mixed anxiety and depressive disorder Social History [...] [facility] [address] [place] [address] Zachariah, Claudette [address] [place] [address] documented as of this encounter Goals Goal [...] documented as of this encounter Care Teams Art Installer Relationship Specialty Start Date End Date Haily Robb FNP [address] [place] [address] PCP - General Family Medicine 05/01/22 documented as of this encounter
--- OUTSIDE RECORDS SUMMARY | 2024-11-04 14:44 | XMS_ITS | Encounter Summary ---
Author Organization [employer] Address [address] 7[address] [place] [address] Care Team Providers Care Pan Puller Name Role Phone Clarisse [facility] Primary Care Provider [phone] Reason for Visit * Reason Onset Date Comments Nurse Triage 02/16/2023 Encounter Details Date Type Department Care Team ([facility] st Contact Info) Description 02/16/2023 Telephone [facility] [address] [place], [place] [phone] [facility] 230 [place] [address] Nurse Triage Social History Tobacco Use Types [...] - 02/23/2023 2:49 PM EDT T/C to [phone] through [employer] interpreters id - [id number] for below message, pt. Verbally agreed and understood. * Telephone Encounter - Angela Whitman LPN - 02/16/2023 2:48 PM EDT Triage call returned to patient via [employer] Auto Design Detailer [phone]. Patient called with concerns of Left eye burning and tearing at times with blurred vision. No irritant or object in eye at this time. Patient reports that he was seen some time ago in [facility] [place] and was given order to obtain eye drops for dry eye. He is angry that he had to pay for them out of pocket and that they did not help. Patient requesting specifically a referral and declines appts. in [facility] or with Team providers later in [...] suggested disposition Override Notes: Patient seen in [facility] [place] and was told to use eye drops several months ago. Patient requesting only referral to Dining Car Server. Video visit not offered Positive Triage Question: [...] The caller accepted this outcome Patient speaks yoruba documented in this encounter Plan of Treatment Upcoming Encounters Date Type Department Care Team (Late st Contact Info) Description 04/24/2025 1:00 PM EDT Office Visit [facility] ADULT DENTAL [address] [place] [address] Kailash Soniaris [address] [place] [address] documented as of this encounter Visit Diagnoses Not on filedocumented in this encounter Additional Health Concerns Assessment Noted Time PHQ-9 Depression Total Score: 0 01/26/20 23 3:38 PM EDT documented as of this encounter Care Teams Pan Puller Relationship Specialty Start Date End Date Haily Robb FNP [address] [place] [address] PCP - General Family Medicine 05/01/22 documented as of this encounter
--- OUTSIDE RECORDS SUMMARY | 2024-11-04 14:44 | XMS_ITS | Encounter Summary ---
Author Organization [employer] Address [address] [place] [address] Care Team Providers Care Industrial Hygienist Name Role Phone Luana [facility] Primary Care Provider [phone] Reason for Visit * Reason Comments Med Refill Encounter Details Date Type Department Care Team ([facility] st Contact Info) Description 10/30/2024 Refill [facility] [address] [place], [place] [phone] [facility] 230 [place] [address] Epigastric pain Social History Tobacco Use Types Packs/Day [...] Description 04/24/2025 1:00 PM EDT Office Visit [facility] [address] [place] [address] Zachariah, Claudette [address] [place] [address] documented as of this encounter Goals Goal Patient Goal Type Associated Problems Recent Progress Patient-Stated? Author Patient will adhere to medication regimen General Mary Chauhan documented as of this encounter Visit Diagnoses Diagnosis Epigastric pain Abdominal pain, epigastric documented in this encounter Additional Health Concerns Assessment Noted Time PHQ-9 Depression Total Score: 0 10/10/19 25 1:23 PM EST documented as of this encounter Care Teams Industrial Hygienist Relationship Specialty Start Date End Date Haily Robb FNP [address] [place] [address] PCP - General Family Medicine 05/01/22 documented as of this encounter
--- OUTSIDE RECORDS SUMMARY | 2024-11-04 14:44 | XMS_ITS | Encounter Summary ---
Author Organization [employer] Address [address] [place] [address] Care Team Providers Care Blood Bank Order Control Clerk Name Role Phone [facility] Primary Care Provider [phone] Reason for Visit * Reason Comments Med Refill Encounter Details Date Type Department Care Team ([facility] st Contact Info) Description 10/28/2024 Refill [facility] [address] [place], [place] [phone] [facility] 230 [place] [address] Social History Tobacco Use Types Packs/Day Years [...] Description 04/24/2025 1:00 PM EDT Office Visit [facility] ADULT DENTAL [address] [place] [address] Zachariah, Claudette [address] [place] [address] documented as of this encounter Goals Goal Patient Goal Type Associated Problems Recent Progress Patient-Stated? Author Patient will adhere to medication regimen General Mary Chauhan documented as of this encounter Visit Diagnoses Not on filedocumented in this encounter Additional Health Concerns Assessment Noted Time PHQ-9 Depression Total Score: 0 10/10/19 25 1:23 PM EST documented as of this encounter Care Teams Blood Bank Order Control Clerk Relationship Specialty Start Date End Date Haily Robb FNP [address] [place] [address] PCP - General Family Medicine 05/01/22 documented as of this encounter
--- OUTSIDE RECORDS SUMMARY | 2024-11-04 14:44 | XMS_ITS | Clinical Summary ---
Author Organization [facility] Address [address] [place] [address] Phone Care Team Providers Care Press Tender Long Goods Name Role Phone [facility] Primary Care Provider [phone] Medications polyethylene glycol (Golytely) 236-22.74-6.74 -5.86 gram [...] Phone Billing Address Personal/Family Self 1970 [address] [place] [address] MEDICAID - [place] Care Teams Press Tender Long Goods Relationship Specialty Start Date End Date Haily Robb [address] [place] [phone] PCP - General 05/20/24
--- OUTSIDE RECORDS SUMMARY | 2024-11-04 14:44 | XMS_ITS | Encounter Summary ---
Author Organization [employer] Address [address] [place] [address] Care Team Providers Care Computer Systems Design Analyst Name Role Phone [facility] Primary Care Provider [phone] Reason for Visit * Reason Comments Med Refill Encounter Details Date Type Department Care Team (Late Contact Info) Description 01/01/2023 Refill [facility] [address] [place], [place] [phone] [facility] [address] [place] [address] Chronic sinusitis, unspecified location Social History Tobacco [...] Description 04/24/2025 1:00 PM EDT Office Visit [facility] ADULT DENTAL [address] [place] [address] Claudette Soni [address] [place] [address] documented as of this encounter Visit Diagnoses Diagnosis Chronic sinusitis, unspecified location documented in this encounter Additional Health Concerns Assessment Noted Time PHQ-9 Depression Total Score: 0 11/03/19 23 10:32 AM EST documented as of this encounter Care Teams Computer Systems Design Analyst Relationship Specialty Start Date End Date Haily Robb FNP [address] [place] [address] PCP - General Family Medicine 05/01/22 documented as of this encounter
--- OUTSIDE RECORDS SUMMARY | 2024-11-04 14:44 | XMS_ITS | Encounter Summary ---
Author Organization [employer] Address [address] [place] [address] Care Team Providers Care Head Transfer Clerk Name Role Phone [facility] Primary Care Provider [phone] Reason for Visit * Reason Onset Date Comments Telephone Call 10/28/2024 Encounter Details Date Type Department Care Team ([facility] st Contact Info) Description 10/28/2024 Refill [facility] [address] [place] [address] [facility] 230 [place] [address] Polyneuropathy Social History Tobacco Use Types Packs/Day Years [...] the past 12 months, has t he [employer], gas, oil or water [employer] threatened to shut off services in your [...] as of this encounter Miscellaneous Notes * Addendum Note - Arik Mckeon RN - 10/30/2024 9:13 AM ESTAddended by: ARIK MCKEON on: 10/30/2024 09:13 AM Modules accepted: Orders * Telephone Encounter - Arik Mckeon RN - 10/30/2024 9:11 AM EST TC placed to patient [phone] in regards to below message. Patient advised PCP will increase medication to 1 tablet daily as patient is tolerating 1 tab. Patient verbalized understanding. Patientto f/u PRN. * Telephone Encounter - Arik Mckeon RN - 10/28/2024 1:27 PM EST Patient walked in requesting a Tspot order for a program. Per chart review, patient had Tspot on 03/31/24 which was POSITIVE. Patient had CXR which r/o active TB and patient was [place] [facility] [facility] [place], patient was scheduled for 09/29/24 however patient no showed. Patient advisedhe needs to call [facility] [place] to r/s his missed appointment. [...] 1:00 PM EDT Office Visit [facility] ADULT [facility] [address] [place] [address] Kailash Soniaris [address] [place] [address] documented as of this encounter Goals Goal Patient Goal Type Associated Problems Recent Progress Patient-Stated? Author Patient will adhere to medication regimen General No Mary Moreland documented as of this encounter Visit Diagnoses Diagnosis Polyneuropathy Unspecified hereditary and idiopathic peripheral neuropathy documented in this encounter Additional Health Concerns Assessment Noted Time PHQ-9 Depression Total Score: 0 10/10/19 1:23 PM EST documented as of this encounter Care Teams Head Transfer Clerk Relationship Specialty Start Date End Date Haily Robb FNP [address] [place] [address] PCP - General Family Medicine 05/01/22 documented as of this encounter
--- OUTSIDE RECORDS SUMMARY | 2024-11-04 14:44 | XMS_ITS | Encounter Summary ---
Author Organization [employer] Address [address] 7[address] [place] [address] Care Team Providers Care Proposal Manager Writer Name Role Phone Clarisse [facility] Primary Care Provider [phone] Reason for Visit * Reason Onset Date Comments Results 10/14/2024 Encounter Details Date Type Department Care Team ([facility] st Contact Info) Description 10/14/2024 Telephone [facility] 230 [place], [place] [phone] [employer] 230 [place] [address] Results Social History Tobacco Use Types Packs/Day [...] Resulted Orders XR Knee 4+ Views Right [place] [address] XRay Report Signed Patient: John Fitzpatrick MR#: [id number] : 1970 Acct:[id number] Age/Sex: 54 / M ADM Date: 10/10/24 Loc: HO.CARD Attending Dr: Pepper Balderrama MD Ordering Physician: Haily Robb Date of Service: 10/10/24 Procedure(s): XR knee RT 4V Accession Number(s): [id number] cc: Haily Robb REEL SYSTEM OPERATOR EXAMINATION: XR KNEE, RIGHT CLINICAL INFORMATION: chronic [...] 10/10/24 1509 DD/ 1437 TD/TT: 10/10/24 1502 Wool Washing Machine Operator: 2:19 PM Results were successfully communicated with the patient and they acknowledged their understanding. * Telephone Encounter - Ashley Headley MA - 10/14/2024 2:19 PM EST ----- Message from [facility] sent at 10/13/2024 9:11 AM EST ----- Diarrhea.liz let patient know that nee xrays were negative/normal. Thank you! documented in this encounter Plan of Treatment Upcoming Encounters Date Type Department Care Team (Late st Contact Info) Description 04/24/2025 1:00 PM EDT Office Visit [facility] ADULT D[facility] [address] [place] [address] Zachariah Claudette [address] [place] [address] documented as of this encounter Goals Goal Patient Goal Type Associated Problems Recent Progress Patient-Stated? Author Patient will adhere to medication regimen General No Mary Moreland documented as of this encounter Visit Diagnoses Not on filedocumented in this encounter Additional Health Concerns Assessment Noted Time PHQ-9 Depression Total Score: 0 10/10/19 1:23 PM EST documented as of this encounter Care Teams Proposal Manager Writer Relationship Specialty Start Date End Date CoolvilleHaily molina FNP 230 [place] [address] PCP - General Family Medicine 05/01/22 documented as of this encounter
--- OUTSIDE RECORDS SUMMARY | 2024-11-04 14:44 | XMS_ITS | Encounter Summary ---
Author Organization [employer] Address [address] 7t [place] [address] Care Team Providers Care Laborer Operator Name Role Phone Clarisse [facility] Primary Care Provider [phone] Reason for Visit * Reason Onset Date Comments Nurse Triage 02/11/2024 Encounter Details Date Type Department Care Team ([facility] st Contact Info) Description 02/11/2024 Telephone [facility] 230 [place], [place] [phone] [facility] 230 [place] [address] Nurse Triage Social History Tobacco Use Types [...] the past 12 months, has t he [employer], gas, oil or water company threatened to [...] EDT Triage call returned to patient with [facility] single end sewer [phone]. Patient reports ongoing issue withleft eye and [...] and she would like him referred to [facility] Filament Maker. No diagnosis in chart.Advised of [facility] for evaluation today. Lab [...] Reason: Other Override Notes: Being treated with artificial plastic eye maker with appt coming in 03/11/24 Video visit not offered Positive Triage Question: * Patient wants to be seen * All higher-acuity triage questions were negative * Telephone Encounter - Christine Taylor - 02/11/2024 10:03 AM EDT Symptom: Eye - Pus or Discharge Outcome: Schedule a same-day appointment or talk to a nurse or provider today Reason: involuntary movements The caller accepted this outcome Frisian speaker documented in this encounter Plan of Treatment Upcoming Encounters Date Type Department Care Team (Late st Contact Info) Description 04/24/2025 1:00 PM EDT Office Visit [facility] [address] [place] [address] Zachariah, Claudette [address] [place] [address] documented as of this encounter Goals Goal Patient Goal Type Associated Problems Recent Progress Patient-Stated? Author Patient will adhere to medication regimen General No Mary Moreland documented as of this encounter Visit Diagnoses Not on filedocumented in this encounter Additional Health Concerns Assessment Noted Time PHQ-9 Depression Total Score: 0 08/15/20 23 3:52 PM EST documented as of this encounter Care Teams Laborer Operator Relationship Specialty Start Date End Date Haily Robb FNP [address] [place] [address] PCP - General Family Medicine 05/01/22 documented as of this encounter
--- OUTSIDE RECORDS SUMMARY | 2024-11-04 14:44 | XMS_ITS | Encounter Summary ---
Author Organization [employer] Address [address] [place] [address] Care Team Providers Care Story Writer Name Role Phone Clarisse [facility] Primary Care Provider [phone] Reason for Visit * Reason Onset Date Comments Results 03/16/2023 Encounter Details Date Type Department Care Team ([facility] st Contact Info) Description 03/16/2023 Telephone [facility] MEDICINE [address] [place], [place] [phone] [place] 230 [place] [address] Results Social History Tobacco Use Types Packs/Day [...] 03/20/2023 4:06 PM EDT Return T/C to [phone] for below message, No answer. LVM to call back on [phone]. * Telephone Encounter - Kelli Boucher - 03/16/2023 2:04 PM EDT Tc from pt requesting a call in regards to results to recent lab orders. Please contact pt at [phone] (Nepali speaker) documented in this encounter Plan of Treatment Upcoming Encounters Date Type Department Care Team (Late st Contact Info) Description 04/24/2025 1:00 PM EDT Office Visit [facility] ADULT DENTAL [address] [place], [place] [phone] ZachariahClaudette [address] [place] [address] documented as of this encounter Visit Diagnoses Not on filedocumented in this encounter Additional Health Concerns Assessment Noted Time PHQ-9 Depression Total Score: 0 01/26/20 23 3:38 PM EDT documented as of this encounter Care Teams Story Writer Relationship Specialty Start Date End Date Haily Robb FNP [address] [place] [address] PCP - General Family Medicine 05/01/22 documented as of this encounter
--- OUTSIDE RECORDS SUMMARY | 2024-11-04 14:44 | XMS_ITS | Encounter Summary ---
Author Organization [employer] Address [address] [place] [address] Care Team Providers Care Web Engineer Name Role Phone Clarisse Haily CORNELL Primary Care Provider [phone] Encounter Details Date Type Department Care Team (Latest Contact Info) Description 06/16/2020 Abstract [facility] CONVERSIONS Dental, Provider, DDS Social [...] Description 04/24/2025 1:00 PM EDT Office Visit [facility] ADULT DENTAL [address] [place] [address] Zachariah, Claudette [address] [place] [address] documented as of this encounter Visit Diagnoses Not on filedocumented in this encounter Care Teams Web Engineer Relationship Specialty Start Date End Date Haily Robb FNP 230 [place] [address] PCP - General Family Medicine 05/01/22 documented as of this encounter
--- OUTSIDE RECORDS SUMMARY | 2024-11-04 14:44 | XMS_ITS | Encounter Summary ---
Author Organization [employer] Address [address] [place] [address] Care Team Providers Care Buffet Waiter/Waitress Name Role Phone Haily Robb ENGINEERING AIDE Primary Care Provider [phone] Encounter Details Date Type Department Care Team ([facility] st Contact Info) Description 11/04/2024 Orders Only [facility] External Provider, [facility] Social History Tobacco Use Types Packs/Day Years [...] Description 04/24/2025 1:00 PM EDT Office Visit [facility] ADULT DENTAL [address] [place] [address] Zachariah, Claudette [address] [place] [address] documented as of this encounter Goals Goal Patient Goal Type Associated Problems Recent Progress Patient-Stated? Author Patient will adhere to medication regimen General Mary Chauhan documented as of this encounter Procedures Procedure Name Priority Date/Time Associated Diagnosis Comments US ABDOMEN LIMITED Routine 11/04/2024 11 :49 AM EST XR CHEST 2 VIEWS Routine 11/04/2024 11:0 0 AM EST documented in this encounter Results * US Abdomen Limited (11/04/2024 11:49 AM EST) Anatomical Region Laterality Modality Abdomen Ultrasound 11/04/2024 11:4 9 AM EST Narrative 11/04/2024 12:32 PM EST ? [facility] ?[address] ?[place] [address] ? Ultrasound Report ? Signed ? Patient: Jr Neffva,Jean ?MR#: ?? [id number] ? : 1970 ?Acct:[id number] ? Age/Sex: 54 / M ?ADM Date: 11/04/24 ? Loc: HO.ED ? Attending Dr: ? Ordering Physician: Lorena Banks DO ?? Date of Service: 11/04/24 ?? Procedure(s): US abdomen limited ?? Accession Number(s): [id number] ? cc: Lorena Banks DO; Haily Robb ENGINEERING AIDE ? EXAMINATION: ?? US ABDOMEN LIMITED ? [...] Zaidi MD ??11/04/2024 12:28 PM ?? EST RP ? Dictated By: ?Darryl Rey MD ? Signed By: ?<Electronically signed by Darryl Lynn MD in OV> ? 11/04/24 1228 ? DD/ 1149 ? TD/TT: 11/04/24 1202 ? [employer] Associate: ? Procedure Note Marilyn, Leonard - 11/04/[address] [address] Ultrasound Report Signed Patient: John Fitzpatrick [facility]#: [id number] : 1970Acct:[id number] Age/Sex: 54 / MADM Date: 11/04/24 Loc: HO.ED Attending Dr: Ordering Physician: Lorena Banks DO Date of Service: 11/04/24 Procedure(s): US abdomen limited Accession Number(s): [id number] cc: Lorena Banks DO; [facility] ENGINEERING AIDE EXAMINATION: US ABDOMEN LIMITED CLINICAL INFORMATION: Epigastric [...] Darryl Zaidi MD 11/04/2024 12:28 PM EST RP Dictated By: Darryl Rey MD Signed By: <Electronically signed by Darryl Lynn MDin OV> 11/04/24 1228 DD/ 1149 TD/TT: 11/04/24 1202 [employer] Associate: [facility] External Provider IMG US PROCEDURES Final Result * XR Chest 2 Views (11/04/2024 11:00 AM EST) Anatomical Region Laterality Modality Chest Radiographic Cecelia ging 11/04/2024 11:0 0 AM EST Narrative 11/04/2024 11:49 AM EST ? [facility] ?[address] ?[place] [address] ?XRay Report ? Signed ? Patient: Jrspike Adamsueva,Jean ?MR#: ?? [id number] ? : 1970 ?Acct:[id number] ? Age/Sex: 54 / M ?ADM Date: 11/04/24 ? Loc: HO.ED ? Attending Dr: ? Ordering Physician: Lorena Banks DO ?? Date of Service: 11/04/24 ?? Procedure(s): XR chest 2V ?? Accession Number(s): [id number] ? cc: Lorena Banks DO; Haily Robb ENGINEERING AIDE ? EXAMINATION: ?? XR CHEST ? CLINICAL [...] DD/ 1100 ? TD/TT: 11/04/24 1125 ? [employer] Associate: MSM ? Procedure Note Leonard Sanders - 11/04/[address] [address] XRay Report Signed Patient: John Fitzpatrick [facility]#: [id number] : 1970Acct:[id number] Age/Sex: 54 / MADM Date: 11/04/24 Loc: HO.ED Attending Dr: Ordering Physician: Lorena Banks DO Date of Service: 11/04/24 Procedure(s): XR chest 2V Accession Number(s): [id number] cc: Lorena Banks DO; Haily Robb ENGINEERING AIDE EXAMINATION: XR CHEST CLINICAL INFORMATION: chest pain [...] 11/04/24 1146 DD/ 1100 TD/TT: 11/04/24 1125 [employer] Associate: REY [facility] External Provider IMG XR PROCEDURES Final Result documented in this encounter Visit Diagnoses Not on filedocumented in this encounter Additional Health Concerns Assessment Noted Time PHQ-9 Depression Total Score: 0 10/10/19 25 1:23 PM EST documented as of this encounter Care Teams Buffet Waiter/Waitress Relationship Specialty Start Date End Date Haily Robb FNP [address] [place] [address] PCP - General Family Medicine 05/01/22 documented as of this encounter
--- OUTSIDE RECORDS SUMMARY | 2024-11-04 14:44 | XMS_ITS | Encounter Summary ---
Author Organization [employer] Address [address] [place] [address] Care Team Providers Care Scrap Piler Name Role Phone Haily Robb ACCOUNTS PAYABLE ACCOUNTANT Primary Care Provider [phone] Reason for Visit * Reason Comments Routine Cleaning Dental Exam x-rays Perio chart Encounter Details Date Type Department Care Team (Late st Contact Info) Description 10/22/2024 1:00 PM EST Office Visit [facility] ADULT DENTAL [address] [place] [address] Zachariah, Claudette [address] [place] [address] Partial edentulism, unspecified edentulism class (Primary Dx); [...] (Prophy, x-rays, Perio chart, P. exam) Location: [facility] Tooth: Maxilla and Mandible Procedure: Exam, X-rays, Prophylaxis, and Perio chart : due to Pt having mostly anteriors teeth approved Pas to be taken Verified the above with patient, camp assistant, and provider. Confirmed via patient's chart, intraorally and by radiographs. Automobile Leasing Supervisor: not applicable Medical Hx: Vitals: Blood [...] EACH ADDITIONAL RADIOGRAPHIC IMAGE (Completed) Service provider: Claudetet Soni Billing provider: Lino Andrews DDS Instruments Used: Ultrasonic Scalers and Prophy angle Fluoride: N/A Oral Cancer Screening: No lesions Head/Neck Exam: No Lesions Calculus: Light Plaque: Light Stain: Light and Moderate Bleeding: Light Gingiva: pink, recession. OH: Fair Perio Chart: Completed: no bleeding upon probing. Oral hygiene instructions provided to patient including brushing technique and flossing. Recommendations: Minden two times daily, modified bey technique, floss [...] (Prophy, x-rays, Perio chart, P. exam) Location: [facility] Tooth: Maxilla and Mandible Procedure: Exam, X-rays, and Prophylaxis Verified the above with patient, camp assistant, and provider. Confirmed via patient's chart, intraorally and by radiographs. Automobile Leasing Supervisor: not applicable Chief Complaint Patient presents [...] Moderate Risk former smoker Oral Hygiene Instructions: Minden two times daily, modified bey technique, Floss daily, Electric toothbrush, Soft bristle toothbrush, Minden Tongue Caries Risk Assessment: Low- no risk factor. NO new active carious lesions noticed Assessment/Plan KODY X Rays Prophy Patient tolerated procedure well, all questions answered and expressed understanding. Dismissed in good condition. NV: 6 mos recall Sail Cutter: Claudette Soni RDH Dentist: Lino Andrews DDS documented in this encounter Plan of Treatment Upcoming Encounters Date Type Department Care Team (Late st Contact Info) Description 04/24/2025 1:00 PM EDT Office Visit [facility] ADULT DENTAL [address] [place] [address] Claudette Soni [address] [place] [address] Scheduled Orders Name Type Priority Associated Diagnoses [...] documented as of this encounter Care Teams Scrap Piler Relationship Specialty Start Date End Date Haily Robb FNP [address] [place] [address] PCP - General Family Medicine 05/01/22 documented as of this encounter
--- OUTSIDE RECORDS SUMMARY | 2024-11-04 14:44 | XMS_ITS | Encounter Summary ---
Author Organization [employer] Address [address] 7[address] [place] [address] Care Team Providers Care Advertising Columnist Name Role Phone Clarisse Haily CORNELL Primary Care Provider Encounter Details Date Type Department Care Team (Latest Contact Info) Description 06/01/2022 Abstract [facility] CONVERSIONS Dental, Provider, DDS Social History [...] Description 04/24/2025 1:00 PM EDT Office Visit [facility] ADULT DENTAL [address] [place] [address] Zachariah, Claudette [address] [place] [address] documented as of this encounter Visit Diagnoses Not on filedocumented in this encounter Care Teams Advertising Columnist Relationship Specialty Start Date End Date Haily Robb FNP [address] [place] [address] PCP - General Family Medicine 05/01/22 documented as of this encounter
--- OUTSIDE RECORDS SUMMARY | 2024-11-04 14:44 | XMS_ITS | Encounter Summary ---
Author Organization [employer] Address [address] [facility] 7t [place] [address] Care Team Providers Care Credit Collections Specialist Name Role Phone [place] [facility] Primary Care Provider [phone] Reason for Visit * Reason Onset Date Comments Med Refill 12/13/2023 Encounter Details Date Type Department Care Team ([facility] st Contact Info) Description 12/13/[address] [facility] MEDICINE [address] [place], [place] [phone] [facility] [address] [place] [address] Med Refill Social History Tobacco Use Types [...] with others, in a hotel, in a fpc, living outside on the street, on a [...] the past 12 months, has t he [employer], gas, oil or water company threatened to [...] 10:24 AM EDT Medication was sent to [facility] on 11/09/23 with 2 refills. * Telephone Encounter - Christine Taylor - 12/13/2023 10:19 AM EDT TC from pt requesting medication refill. Medications needing refill : melatonin 5 MG tablet To be sent to: [facility] - [place], [place] - [address] [facility] documented in this encounter Plan of Treatment Upcoming Encounters Date Type Department Care Team (Late st Contact Info) Description 04/24/2025 1:00 PM EDT Office Visit [facility] ADULT DENTAL [address] [place] [address] Claudette Soni [address] [place] [address] documented as of this encounter Visit Diagnoses Not on filedocumented in this encounter Additional Health Concerns Assessment Noted Time PHQ-9 Depression Total Score: 0 08/15/20 23 3:52 PM EST documented as of this encounter Care Teams Credit Collections Specialist Relationship Specialty Start Date End Date Haily Robb FNP [address] [place] [address] PCP - General Family Medicine 05/01/22 documented as of this encounter
--- OUTSIDE RECORDS SUMMARY | 2024-11-04 14:44 | XMS_ITS | Encounter Summary ---
Author Organization [employer] Address [address] [place] [address] Care Team Providers Care Aquatics Specialist Name Role Phone Haily Robb BAG BLEACHER Primary Care Provider [phone] Reason for Visit * Reason Comments Med Refill Encounter Details Date Type Department Care Team (Late st Contact Info) Description 04/02/2023 Refill [facility] [address] [place] [address] Hollis Rutledge MD [address] [place] [address] Social History Tobacco Use Types Packs/Day Years [...] [facility] ADULT DENT[facility] [address] [place] [address] Claudette Soni [address] [place] [address] documented as of this encounter Visit Diagnoses Not on filedocumented in this encounter Additional Health Concerns Assessment Noted Time PHQ-9 Depression Total Score: 0 01/26/20 23 3:38 PM EDT documented as of this encounter Care Teams Aquatics Specialist Relationship Specialty Start Date End Date Haily Robb FNP [address] [place] [address] PCP - General Family Medicine 05/01/22 documented as of this encounter
--- OUTSIDE RECORDS SUMMARY | 2024-11-04 14:44 | XMS_ITS | Encounter Summary ---
Author Organization [employer] Address [address] [place] [address] Care Team Providers Care Civil Engineer In Training Name Role Phone Clarisse [facility] Primary Care Provider [phone] Reason for Visit * Reason Onset Date Comments Results 10/31/2024 Encounter Details Date Type Department Care Team ([facility] st Contact Info) Description 10/31/2024 Telephone [facility] MEDICINE [address] [place], [place] [phone] [facility] [address] [place] [address] Results Social History Tobacco Use Types Packs/Day [...] Telephone Encounter - Ashley Headley MA - 10/31/2024 3:55 PM EST Result Communication Echocardiogram Results were successfully communicated with the patient and they acknowledged their understanding. documented in this encounter Plan of Treatment Upcoming Encounters Date Type Department Care Team (Late st Contact Info) Description 04/24/2025 1:00 PM EDT Office Visit [facility] ADULT DENTAL [address] [place], [place] [phone] Claudette Soni [address] [place] [address] documented as of this encounter Goals Goal Patient Goal Type Associated Problems Recent Progress Patient-Stated? Author Patient will adhere to medication regimen General No Mary Moreland documented as of this encounter Visit Diagnoses Not on filedocumented in this encounter Additional Health Concerns Assessment Noted Time PHQ-9 Depression Total Score: 0 10/10/19 25 1:23 PM EST documented as of this encounter Care Teams Civil Engineer In Training Relationship Specialty Start Date End Date Haily Robb FNP [address] [place] [address] PCP - General Family Medicine 05/01/22 documented as of this encounter
--- OUTSIDE RECORDS SUMMARY | 2024-11-04 14:44 | XMS_ITS | Encounter Summary ---
Author Organization [employer] Address [address] [facility] [address] [place] [address] Care Team Providers Care Physician Underwriter Name Role Phone Haily Robb ROUGHER OPERATOR Primary Care Provider [phone] Reason for Visit * Reason Comments Med Refill Encounter Details Date Type Department Care Team (Late st Contact Info) Description 04/02/2023 Refill [facility] MEDICINE [address] [place] [address] Juanjose Barton MD [address] [place] [address] Chronic pruritus Social History Tobacco Use Types [...] Description 04/24/2025 1:00 PM EDT Office Visit [facility] ADULT DENTAL [address] [place] [address] Claudette Soni [address] [place] [address] documented as of this encounter Visit Diagnoses Diagnosis Chronic pruritus documented in this encounter Additional Health Concerns Assessment Noted Time PHQ-9 Depression Total Score: 0 01/26/20 23 3:38 PM EDT documented as of this encounter Care Teams Physician Underwriter Relationship Specialty Start Date End Date Haily Robb FNP [address] [place] [address] PCP - General Family Medicine 05/01/22 documented as of this encounter
== END 2024-11-04 13:18 | disposition home or self-care (01) ==
PROVIDERS: Emergency Provider Emergency Medicine; PCP Registered Nurse
DX: R07.89 Other chest pain (principal); R10.13 Epigastric pain; R51.9 Headache, unspecified; F17.210 Nicotine dependence, cigarettes, uncomplicated; Z79.899 Other long term (current) drug therapy; Z03.818 Encounter for observation for suspected exposure to other biological agents ruled out
CPT/HCPCS: 0241U; 71046; 76705; 80048; 80076; 83690; 83735; 84484; 85025; 93005; 99281; 99284

== ENCOUNTER → 2024-11-04 10:28 | Outpatient (BNV) | payer MEDICAID, SELFPAY | PROVIDERS: Emergency Provider Emergency Medicine; PCP Registered Nurse; Visit Provider Internal Medicine Cardiovascular Disease | DX: R07.9 Chest pain, unspecified (principal) | CPT/HCPCS: 93010 ==

== ENCOUNTER → 2024-11-04 11:00 | Outpatient (BNV) | payer MEDICAID, SELFPAY | PROVIDERS: PCP Registered Nurse; Visit Provider Radiology Diagnostic Radiology | DX: R10.13 Epigastric pain (principal); R07.9 Chest pain, unspecified | CPT/HCPCS: 71046; 76705 ==

== ENCOUNTER 2024-11-18 10:20 | Outpatient (REF) | payer MEDICAID, SELFPAY ==
--- OUTSIDE RECORDS SUMMARY | 2024-11-18 12:00 | XMS_ITS | Encounter Summary ---
Author Organization [employer] Address [address] [place] [address] Care Team Providers Care Claims Assistant Name Role Phone [place] [facility] Primary Care Provider [phone] Reason for Visit * Reason Onset Date Comments Lab Orders 11/13/2024 Encounter Details Date Type Department Care Team ([facility] st Contact Info) Description 11/13/2024 Telephone [facility] MEDICINE [address] [place], [place] [phone] [facility] [address] [place] [address] Lab Orders Social History Tobacco Use Types Packs/Day Years [...] encounter Miscellaneous Notes * Telephone Encounter - Magi Magdaleno RN - 11/13/2024 2:12 PM EDT TC placed to pt. Pt. Reports he has been experiencing dizziness and swelling from feet to knees x 2months. Pt. Reports his mother had DM and had the same symptoms, and pt. Is concerned as he eats a lot of added sugar. Pt. Reports dizziness occurs when walking and watching tv. Pt. Reports symptoms have not been worsening since onset but not improving. Pt. Reports swelling improves when legs are elevated. Pt. Agrees to appt. 11/17/24 at 11:15am with CHANDRA Montes. Pt. Is also going to call [facility] clinic to r/s missed appt. * Telephone Encounter - Chase Green - 11/13/2024 10:03 AM EDT Tc from spouse requesting lab order as spouse will like glucose to be taken as he has symptoms off diabetes pt has family members who are diabetic , pt legs are not normal the way they look pt is always eating sweets as spouse will like PCP to sent lab orders for pt to clear up a doubt. If any questions to ask please reach out to spouse Xin [phone] documented in this encounter Plan of Treatment Upcoming Encounters Date Type Department Care Team (Late st Contact Info) Description 04/24/2025 1:00 PM EDT Office Visit [facility] ADULT DENTAL [address] [place], [place] [phone] Zachariah Claudette [address] [place], [place] [phone] documented as of this encounter Goals Goal Patient Goal Type Associated Problems Recent Progress Patient-Stated? Author Patient will adhere to medication regimen General No Mary Moreland documented as of this encounter Visit Diagnoses Not on filedocumented in this encounter Additional Health Concerns Assessment Noted Time PHQ-9 Depression Total Score: 0 10/10/19 25 1:23 PM EST documented as of this encounter Care Teams Claims Assistant Relationship Specialty Start Date End Date Haily Robb FNP [address] [place] [address] PCP - General Family Medicine 05/01/22 documented as of this encounter
--- OUTSIDE RECORDS SUMMARY | 2024-11-18 12:00 | XMS_ITS | Encounter Summary ---
Author Organization [employer] Address [address] [place] [address] Care Team Providers Care Application Development Director Name Role Phone [place] [facility] Primary Care Provider [phone] Reason for Visit * Reason Comments Med Refill Encounter Details Date Type Department Care Team ([facility] st Contact Info) Description 11/13/2024 Refill [facility] MEDICINE [address] [place], [place] [phone] [facility] [address] [place] [address] Vitamin D deficiency Social History Tobacco Use Types Packs/Day Years [...] Description 04/24/2025 1:00 PM EDT Office Visit [facility] ADULT DENTAL [address] [place] [address] Zachariah, Claudette [address] [place] [address] documented as of this encounter Goals Goal Patient Goal Type Associated Problems Recent Progress Patient-Stated? Author Patient will adhere to medication regimen General Mary Chauhan documented as of this encounter Visit Diagnoses Diagnosis Vitamin D deficiency documented in this encounter Additional Health Concerns Assessment Noted Time PHQ-9 Depression Total Score: 0 10/10/19 25 1:23 PM EST documented as of this encounter Care Teams Application Development Director Relationship Specialty Start Date End Date Haliy Robb FNP [address] [place] [address] PCP - General Family Medicine 05/01/22 documented as of this encounter
--- OUTSIDE RECORDS SUMMARY | 2024-11-18 12:00 | XMS_ITS | Encounter Summary ---
Author Organization [employer] Address [address] [facility] 7t [place] [address] Care Team Providers Care Storage Management Consultant Name Role Phone [place] [facility] Primary Care Provider [phone] Reason for Visit * Reason Comments Med Refill Encounter Details Date Type Department Care Team ([facility] st Contact Info) Description 09/05/2022 Telephone [facility] MEDICINE [address] [place], [place] [phone] [facility] [address] [place] [address] Med Refill Social History Tobacco Use Types [...] - 09/06/2022 8:18 AM EST TC via P/I#[id number], explained to pt that [facility] Provided pt the phone number for the [facility] site and encouraged him to call them for all refills of his Clonazepam. Pt thanked entry writer and said he understood. * Telephone Encounter - Yessi Cannon RN - 09/05/2022 3:04 PM EST Note on 08/02/22: Medication request:[email or web address] Last visit 06/27/22. You sent a refill in June, it was picked up 07/12/22. He was originally getting this elsewhere. Not sure what you'd like to do. If you'll now be prescribing, then would you like him on BORING MACHINE OPERATOR DOUBLE END? documented in this encounter Plan of Treatment Upcoming Encounters Date Type Department Care Team (Late st Contact Info) Description 04/24/2025 1:00 PM EDT Office Visit [facility] ADULT DENTAL [address] [place] [address] Claudette Soni [address] [place] [address] documented as of this encounter Visit Diagnoses Diagnosis Other specified anxiety disorders documented in this encounter Care Teams Storage Management Consultant Relationship Specialty Start Date End Date Haily Robb FNP [address] [place] [address] PCP - General Family Medicine 05/01/22 documented as of this encounter
--- OUTSIDE RECORDS SUMMARY | 2024-11-18 12:00 | XMS_ITS | Encounter Summary ---
Author Organization [employer] Address [address] [facility] 7t [place] [address] Care Team Providers Care Iron Worker Apprentice Name Role Phone Clarisse [facility] Primary Care Provider [phone] Reason for Visit * Reason Onset Date Comments Med Refill 09/25/2023 Encounter Details Date Type Department Care Team ([facility] st Contact Info) Description 09/25/2023 Telephone [facility] MEDICINE [address] [place], [place] [phone] [facility] [address] [place] [address] Med Refill Social History Tobacco Use Types [...] with others, in a hotel, in a retirement, living outside on the street, on a [...] the past 12 months, has t he [employer], gas, oil or water company threatened to [...] 200 MG/ML injection To be sent to: [facility] - [place], [place] - [address] documented in this encounter Plan of Treatment Upcoming Encounters Date Type Department Care Team (Late st Contact Info) Description 04/24/2025 1:00 PM EDT Office Visit [facility] ADULT DENTAL [address] [place] [address] Claudette Soni [address] [place] [address] documented as of this encounter Visit Diagnoses Not on filedocumented in this encounter Additional Health Concerns Assessment Noted Time PHQ-9 Depression Total Score: 0 08/15/20 3:52 PM EST documented as of this encounter Care Teams Iron Worker Apprentice Relationship Specialty Start Date End Date Haily Robb FNP [address] [place] [address] PCP - General Family Medicine 05/01/22 documented as of this encounter
--- OUTSIDE RECORDS SUMMARY | 2024-11-18 12:00 | XMS_ITS | Clinical Summary ---
Author Organization [employer] Address [address] [facility] [address] 7t [place] [address] Care Team Providers Care Drug Room Clerk Name Role Phone Haily Robb [facility] Primary Care Provider [phone] Allergies Active Allergy Reactions Criticality Noted Date [...] with albuterol inhaler 1 each 023 Active BD Plastipak Syringe 3 ML misc [...] by mouth 2 times daily. 180 capsule 024 Active Ventolin HFA 108 (90 Base) MCG/ACT inhalerIndication s:Wheezing INHALE 2 PUFFS BY MOUTH EVERY 4 HOURS NEEDED FOR WHEEZING OR SHORTNESS OF BREATH 18 g 11 Active meloxicam (Mobic) 7.5 MG tablet Take 1 tablet (7.5 mg) by mouth 2 times daily. 60 tablet 11 024 2024 Active cromolyn (Nasachrom) 5.2 MG/ACT nasal sprayIndications: Nasal congestion Administer 1 spray into each nostril 4 times daily. 26 mL 12 024 2024 Active loratadine (Claritin) 10 MG tabletIndications :Nasal congestion Take 1 tablet (10 mg) by mouth Once per day. 30 tablet 11 024 2024 Active gabapentin (Neurontin) 600 MG tabletIndications [...] Once per day. 60 tablet 2 025 01/22/ 2026 Active melatonin 5 MG tabletIndications :Mixed anxiety [...] bedtime. 90 tablet 3 025 2025 Active cholecalciferol (D3 Super Strength) 50 MCG (2000 UT) capsuleIndication s:Vitamin D deficiency TAKE 1 CAPSULE BY MOUTH EVERY MORNING 90 capsule 3 025 Active cholecalciferol (D3 Super Strength) 50 MCG (2000 UT) capsuleIndication s:Vitamin D deficiency TAKE 1 CAPSULE BY MOUTH EVERY DAY 90 capsule 3 024 2024 Discontinued omeprazole (PriLOSEC) 40 MG [...] ? Established with therapy and psychiatry at [facility] ? ? No rash, fever, chills, lymphadenopathy [...] for anxiety sxs) that comes referred from [facility] for exacerbated anxiety in presence of [...] a good support system through his family, methodist and recovery network, as well as having [...] to explore potential nerve damage due to residential use of anxiolytics, even though John is on low dose medication. At this time is unclear if crawling/burning sensation on skin is solely due to medical and/or somatic presentation. However, sxs are causing significant psychological distress in patient. John was given information on how to reach out to [facility] BHI team and HC numbers for [...] that patient prefer are from a different machine repairer maintenance and are on back order. ?? Pt [...] Encounters Date Type Department Care Team Description 11/17/2024 Telephone [facility] MEDICINE [address] [place] [address] Haily Robb FNP No Show (Patient no show for sick on site ) 11/14/2024 Population Health Risk Score [facility] (C[facility] Department [address] [place] [address] Provider, Population Health Generic 11/13/2024 Telephone [facility] MEDICINE [address] [place] [address] Haily Robb FNP Lab Orders 11/13/2024 Refill [facility] MEDICINE [address] [place] [address] Haily Robb FNP Vitamin D deficiency 11/04/2024 Orders Only [facility] External Provider, [facility] 10/31/2024 Telephone [facility] MEDICINE [address] [place] [address] Haily Robb, WOOD BARKER Results 10/30/2024 Refill [facility] WALK-IN [address] [address] Haily Robb, WOOD BARKER Epigastric pain 10/28/[address] [address] Haily Robb, WOOD BARKER Polyneuropathy 10/28/[address] [address] Haily Robb, WOOD BARKER 10/22/2024 1:00 PM EST Office Visit [facility] ADULT DENTAL [address] [place] [address] Claudette Soni Partial edentulism, unspecified edentulism class (Primary Dx); Dental calculus; Generalized gingival recession, moderate; Normal oral exam 10/14/[address] [address] Haily Robb WOOD BARKER Results 10/10/2024 1:15 PM EST Office Visit [address] [address] Haily Robb FNP Polyneuropathy (Primary Dx); Bilateral lower extremity edema; Ataxia; Chronic pain of both knees; Anxiety due to invasive procedure; Shortness of breath 10/10/2024 Travel 10/01/[address] [address] Haily Robb FNP Mixed anxiety and depressive disorder 09/24/2024 2:40 PM EST Office Visit [facility] WALK-IN [address] [address] Pepper Balderrama MD Bilateral lower extremity edema (Primary Dx) 09/16/[address] [address] Haily Robb FNP Durable Medical Equipment (Compression stockings) 09/12/2024 Telephone [facility] [address] [place] [address] [facility] 09/02/2024 Telephone [facility] MEDICINE [address] [place] [address] [facility] Durable Medical Equipment (Compression stockings) 09/01/2024 1:15 PM EST Office Visit [facility] MEDICINE [address] [place] [address] Hoa Dueñas NP Urinary retention (Primary Dx); Bilateral lower extremity edema 08/29/2024 Telephone [facility] MEDICINE [address] [place] [address] Leticia Rashid MA Chart Prep 08/28/2024 Refill [facility] [address] [place] [address] [facility] Mixed anxiety and depressive disorder from Last 3 Months Immunizations Name Administration [...] Description 04/24/2025 1:00 PM EDT Office Visit [facility] ADULT DENTAL [address] [place] [address] [place] [address] Health Maintenance Due Date Last Done Comments CT Colonography 1968 Colonoscopy 1968 Colorectal Cancer Screening 1968 FIT DNA/Cologuard 1968 FIT 1968 FOBT 1968 Sigmoidoscopy 1968 DTaP/Tdap/Td Vaccines (1 - Tdap) 1987 Pneumococcal Vaccine: 50+ Years (1 of 1 - PCV) 2018 Hepatitis B Vaccines (2 of 2 - CpG 2-dose series) 12/14/2022 11/16/2022 Zoster Vaccines (2 of 2) 01/11/2023 11/16/2022 COVID-19 Vaccine ( - season) 2024 04/27/2022, 04/27/2022, 08/16/2021, Additional [...] Dental calculus 11 I COMPOSITE FILLING Routine 10/22/2024 12:00 AM EST XR KNEE 4+ VIEWS RIGHT Routine 10/10/2024 2:37 PM EST Chronic pain of both knees XR KNEE 4+ VIEWS LEFT Routine 10/10/2024 2:37 PM EST Chronic pain of both knees HEMOGLOBIN A1C Routine 06/20/2024 3:05 PM EDT [...] EST Narrative 11/04/2024 12:32 PM EST ? [facility] ?[address] ?[place] [address] ? Ultrasound Report ? Signed ? Patient: Jr Ro,Jean ?MR#: ?? [id number] ? : 1970 ?Acct:[id number] ? Age/Sex: 54 / M ?ADM Date: 11/04/24 ? Loc: HO.ED ? Attending Dr: ? Ordering Physician: Lorena Banks DO ?? Date of Service: 11/04/24 ?? Procedure(s): US abdomen limited ?? Accession Number(s): [id number] ? cc: Lorena Banks DO; Haily Robb WOOD BARKER ? EXAMINATION: ?? US ABDOMEN LIMITED ? [...] MD ? Signed By: ?<Electronically signed by Draryl Lynn MD in OV> ? 11/04/24 1228 ? DD/ 1149 ? TD/TT: 11/04/24 1202 ? Cut Off Saw Operator: ? Procedure Note Donotuseinterpreter, Image - 11/04/[address] [address] Ultrasound Report Signed Patient: John Fitzpatrick AMR#: [id number] : 1970Acct:[id number] Age/Sex: 54 / MADM Date: 11/04/24 Loc: HO.ED Attending Dr: Ordering Physician: Lorena Banks DO Date of Service: 11/04/24 Procedure(s): US abdomen limited Accession Number(s): [id number] cc: Lorena Banks DO; [facility] EXAM[facility]ATION: US ABDOMEN LIMITED CLINICAL INFORMATION: Epigastric [...] hydronephrosis, right kidney. Electronically signed by: Darryl Zadii MD 11/04/2024 12:28 PM [facility] Dictated By: Darryl Rey MD Signed By: <Electronically signed by Darryl Lynn MDin OV> 11/04/24 1228 DD/ 1149 TD/TT: 11/04/24 1202 Cut Off Saw Operator: us [facility] External Provider IMG US PROCEDURES Final Result * XR Chest 2 Views (11/04/2024 11:00 AM EST) Anatomical Region Laterality Modality Chest Radiographic Cecelia ging 11/04/2024 11:0 0 AM EST Narrative 11/04/2024 11:49 AM EST ? [facility] ?[address] ?[place] [address] ?XRay Report ? Signed ? Patient: Jr John Ro ?MR#: ?? [id number] ? : 1970 ?Acct:[id number] ? Age/Sex: 54 / M ?ADM Date: 11/04/24 ? Loc: HO.ED ? Attending Dr: ? Ordering Physician: Lorena Banks DO ?? Date of Service: 11/04/24 ?? Procedure(s): XR chest 2V ?? Accession Number(s): [id number] ? cc: Lorena Banks DO; Haily Robb WOOD BARKER ? EXAMINATION: ?? XR CHEST ? CLINICAL [...] 11:46 AM EST RP ? Dictated By: ?Elena,Mateusz S MD ? Signed By: ?<Electronically signed by Mateusz Parker MD in OV> ?11/04/24 1146 ? DD/ 1100 ? TD/TT: 11/04/24 1125 ? Cut Off Saw Operator: MSM ? Procedure Note Leonard Sanders - 11/04/[address] [address] XRay Report Signed Patient: John Fitzpatrick [facility]#: [id number] : 1970Acct:[id number] Age/Sex: 54 / MADM Date: 11/04/24 Loc: HO.ED Attending Dr: Ordering Physician: Lorena Banks DO Date of Service: 11/04/24 Procedure(s): XR chest 2V Accession Number(s): [id number] cc: Lorena Banks DO; [facility] EXAMINATION: XR CHEST CLINICAL INFORMATION: chest pain [...] 11/04/24 1146 DD/ 1100 TD/TT: 11/04/24 1125 Cut Off Saw Operator: REY [facility] External Provider IMG XR PROCEDURES Final Result * XR Knee 4+ Views Right (10/10/2024 2:37 PM EST) Anatomical Region Laterality Modality Lower Extremities, Knee Right Radiogra phic Imaging 10/10/2024 2:37 PM EST Narrative 10/10/2024 3:12 PM EST ? [facility] ?[address] ?[place] [address] ?XRay Report ? Signed ? Patient: Jr Ro,Jean ?MR#: ?? [id number] ? : 1970 ?Acct:[id number] ? Age/Sex: 54 / M ?ADM Date: 02/07/25 ? Loc: HO.CARD ? Attending : Pepper Balderrama MD ? Ordering Physician: Haily Robb ?? Date of Service: 10/10/24 ?? Procedure(s): XR knee RT 4V ?? Accession Number(s): [id number] ? cc: Haily Robb ? EXAMINATION: ?? [...] DD/ 1437 ? TD/TT: 10/10/24 1502 ? Cut Off Saw Operator: ? Procedure Note Marilyn, Image - 10/10/[address] [address] XRay Report Signed Patient: John Fitzpatrick AMR#: [id number] : 1970Acct:[id number] Age/Sex: 54 / MADM Date: 10/10/24 Loc: [facility] Attending Dr: Pepper Balderrama MD Ordering Physician: Haily Robb Date of Service: 10/10/24 Procedure(s): XR knee RT 4V Accession Number(s): [id number] cc: Haily Robb [facility] EXAMINATION: XR KNEE, RIGHT CLINICAL INFORMATION: [...] 10/10/24 1509 DD/ 1437 TD/TT: 10/10/24 1502 Cut Off Saw Operator: [facility] WOOD BARKER IMG XR PROCEDURES Final Resul t * XR Knee 4+ Views Left (10/10/2024 2:37 PM EST) Anatomical Region Laterality Modality Lower Extremities, Knee Left Radiogra phic Imaging 10/10/2024 2:37 PM EST Narrative 10/10/2024 3:12 PM EST ? [facility] ?[address] ?[place] [address] ?XRay Report ? Signed ? Patient: John Fitzpatrick ?MR#: ?? [id number] ? : 1970 ?Acct:[id number] ? Age/Sex: 54 / M ?ADM Date: 10/10/24 ? Loc: HO.CARD ? Attending Dr: Pepper Balderrama MD ? Ordering Physician: Haily Robb ?? Date of Service: 10/10/24 ?? Procedure(s): XR knee LT 4V ?? Accession Number(s): [id number] ? cc: Haily Robb ? EXAMINATION: ?? [...] DD/ 1437 ? TD/TT: 10/10/24 1502 ? Cut Off Saw Operator: ? Procedure Note Leonard Sanders - 10/10/[address] [address] XRay Report Signed Patient: John Fitzpatrick AMR#: [id number] : 1970Acct:[id number] Age/Sex: 54 / MADM Date: 10/10/24 Loc: .CARD Attending Dr: Pepper Balderrama MD Ordering Physician: [facility] Date of Service: 10/10/24 Procedure(s): XR knee LT 4V Accession Number(s): [id number] cc: [facility] EXAMINATION: XR KNEE, LEFT CLINICAL INFORMATION: [...] by: Darryl Zaidi MD 10/10/2024 03:10 PM [facility] Dictated By: Darryl Rey MD Signed By: <Electronically signed by Darryl Lynn MDin OV> 10/10/24 1510 DD/ 1437 TD/TT: 10/10/24 1502 Cut Off Saw Operator: [facility] IMG XR PROCEDURES Final Resul t * Hemoglobin A1c (06/20/2024 3:05 PM EDT) Hemoglobin A1c 5.7 <6.0 % [facility] Comment:Hemoglobin A1C Refer ence Range Adults: 4.8 - 6.0 % Non diabetic: < 6.0 % Goal: < 7.0 %Additional Action Suggested: > 8.0 %Note: Hemoglobin A1c results are invalid for patients with abnormal amounts of HbF. Blood transfusions may impact the HbA1c concentration in the patient sample. Estimated Average Glucose 117 mg/dL [facility] Comment:eAG = Estimated ave rage glucose which is %A1C expressed asaverage glucose, using the formula of the Y9X-KedeurmDywomkg Glucose study (ADAG), Diabetes Care, Vol.31,#8,Apr. 2007 Blood Venous blood specimen / Unknown 06/20/2024 3:05 PM EDT 06/20/2024 4:21 PM EDT us Niecy Chacon ANP LAB BLOOD ORDERABLES Final Resul t Performing Organization Address [facility] [[email or web address]] Co de Phone Number [facility] [address] [place] [phone] * Lipid Panel, Standard (03/19/2024 9:34 AM EDT) Triglycerides 66 <150 mg/dL [facility] Comment:Desirable Triglyceri de: less than 150 mg/dLBorderline High Triglyceride 150-199 mg/dLHigh Triglyceride: 200-499 mg/dLVery High Triglyceride: greater than or equal to 5OO mg/dL Cholesterol 112 <200 mg/dL [facility] Comment:Desirable Cholestero l: less than 200 mg/dLBorderline High Cholesterol: 200-239 mg/dLHigh Cholesterol: greater than 239 mg/dL LDL Cholesterol Calculated 58 <100 mg/dL [facility] Comment:Desirable LDL: less than 100 mg/dLNear Optimal/Above Optimal LDL: 110- 129 mg/dLBorderline High LDL: 130-159 mg/dLHigh LDL: 160-189 mg/dLVery High LDL: greater than or equal to 190 mg/dL HDL Cholesterol 41 >40 mg/dL [facility] Comment:Desirable HDL: great er than 40 mg/dL Note: This HDL assay may give artificially low results in patients with liver disease. Blood Venous blood specimen / Unknown 03/19/2024 9:34 AM EDT 03/19/2024 11:12 AM EDT us Roxana Gotti DO LAB BLOOD ORDERABLES Final R esult Performing Organization Address [facility]/ZIP Co de Phone Number [facility] [address] [place] [phone] * Hepatitis C Viral RNA, Quantitative, Real-Time PCR (03/22/2023 11:53 AM EDT) Pathologist [facility] Hepatitis C Viral Load <15 NOT DETECTED NOT DETECTED IU/mL [facility] HCV Log PCR <1.18 NOT DETECTED NOT DETECTED Log IU/mL [facility] Comment:This test was perfor med using Real-Time Polymerase ChainReaction.Reportable Range: 15 IU/mL to 100,000,000 IU/mL(1.18 Log IU/mL to 8.00 Log IU/mL).The analytical performance characteristics of thisassay have been determined by [employer].The modifications have not been cleared or approved bythe FDA. This assay has been validated pursuant to theCLIA regulations and is used for clinical purposes.For more information on this test, go to:http://education.[employer].com/faq/SXH54r4(This link is being provided for informational/educational purposes only.)THIS TEST WAS PERFORMED AT:[facility] [address] [id number] GONG MD Blood 03/22/2023 11:5 3 AM EDT 03/22/2023 1:32 PM EDT Jessica Guillen [facility] LAB BLOOD ORDERABLES Final Res ult [facility] [address] [place] [phone] * HIV-1 RNA, Quantitative, Real-Time PCR (03/22/2023 11:53 AM EDT) Pathologist [facility] HIV RNA PCR Qn Copies NOT DETECTED NOT DETECTED copies/mL [facility] HIV RNA PCR Qn Log Copies NOT DETECTED NOT DETECTED [facility] Comment:Result Units: Log co pies/mLThis test was performed using Real-Time Polymerase ChainReaction.Reportable Range: 20 copies/mL to 10,000,000 copies/mL(1.30 log copies/mL to 7.00 log copies/mL).THIS TEST WAS PERFORMED AT:[facility] [place] [id number] GONG MD Blood Venous blood specimen / Unknown 03/22/2023 11:53 AM EDT 03/22/2023 1:32 PM EDT us Jessica Guillen WOOD BARKER LAB BLOOD ORDERABLES Final Res ult [facility] [address] [place] [address] [phone] from Last 3 Months or Most Recently Relevant to Health Maintenance Insurance [facility] C3 DENTAL-[facility] MEDICAID STAND ADULT Care Teams Drug Room Clerk Relationship Specialty Start Date End Date Haily Robb FNP [address] [place] [address] PCP - General Family Medicine 05/01/22
--- OUTSIDE RECORDS SUMMARY | 2024-11-18 12:00 | XMS_ITS | Encounter Summary ---
Author Organization [employer] Address 75 [facility] 7t [place] [address] Care Team Providers Care Traffic Workforce Representative Name Role Phone Haily Robb DIRECTOR HOME Primary Care Provider [phone] Encounter Details Date Type Department Care Team ([facility] st Contact Info) Description 11/14/2024 Population Health Risk Score [facility] (C3) Department 75 [facility] [address] [place] [address] Provider, Population Health Generic Social History Tobacco Use Types Packs/Day Years [...] Office Visit [facility] ADULT DENTAL [address] [place] [address] Zachariah, Claudette [address] [place] [address] documented as of this encounter Goals Goal Patient Goal Type Associated Problems Recent Progress Patient-Stated? Author Patient will adhere to medication regimen General No Mary Moreland documented as of this encounter Visit Diagnoses Not on filedocumented in this encounter Additional Health Concerns Assessment Noted Time PHQ-9 Depression Total Score: 0 10/10/19 25 1:23 PM EST documented as of this encounter Care Teams Traffic Workforce Representative Relationship Specialty Start Date End Date Haily Robb FNP [address] [place] [address] PCP - General Family Medicine 05/01/22 documented as of this encounter
--- OUTSIDE RECORDS SUMMARY | 2024-11-18 12:00 | XMS_ITS | Encounter Summary ---
Author Organization [employer] Address [address] [facility] [address] 7t [place] [address] Care Team Providers Care Executive Vice President And Chief Financial Officer Name Role Phone [facility] Primary Care Provider [phone] Reason for Visit * Reason Onset Date Comments No Show 11/17/2024 Patient no show for sick on site Encounter Details Date Type Department Care Team ([facility] st Contact Info) Description 11/17/2024 Telephone [facility] MEDICINE [address] [place], [place] [phone] [facility] [address] [place], [place] [phone] No Show (Patient no show for sick on site ) Social History Tobacco Use Types Packs/Day Years [...] encounter Miscellaneous Notes * Telephone Encounter - Xochilt Oliveira RN - 11/17/2024 11:36 AM EDT TC x 2 placed to pt via S historic interpreter (Pratik ID#[id number]) to do a status check as they no showed sick on site with Jyoti Appra for bilateral leg edema and dizziness x 2 months. No answer, voicemailbox full, unable to leave message. * Telephone Encounter - Jeaneth Thomas - 11/17/2024 11:33 AM EDT Patient no show for sick on site documented in this encounter Plan of Treatment Upcoming Encounters Date Type Department Care Team (Late st Contact Info) Description 04/24/2025 1:00 PM EDT Office Visit [facility] ADULT DENTAL [address] [place] [address] Claudette Soni [address] [place] [address] documented as of this encounter Goals Goal Patient Goal Type Associated Problems Recent Progress Patient-Stated? Author Patient will adhere to medication regimen General No Mary Moreland documented as of this encounter Visit Diagnoses Not on filedocumented in this encounter Additional Health Concerns Assessment Noted Time PHQ-9 Depression Total Score: 0 10/10/19 25 1:23 PM EST documented as of this encounter Care Teams Executive Vice President And Chief Financial Officer Relationship Specialty Start Date End Date Haily Robb FNP [address] [place] [address] PCP - General Family Medicine 05/01/22 documented as of this encounter
--- OUTSIDE RECORDS SUMMARY | 2024-11-18 12:00 | XMS_ITS | Encounter Summary ---
Author Organization [employer] Address [address] [facility] [address] [place] [address] Care Team Providers Care Educational Technology Coordinator Name Role Phone [place] Primary Care Provider [phone] Reason for Visit * Reason Comments Med Refill Encounter Details Date Type Department Care Team ([facility] st Contact Info) Description 07/08/2024 Refill [facility] MEDICINE [address] [place], [place] [phone] [facility] [address] [place] [address] Mixed anxiety and depressive disorder Social History [...] Description 04/24/2025 1:00 PM EDT Office Visit [facility] ADULT DENTAL [address] [place] [address] Zachariah, Claudette [address] [place] [address] documented as of this encounter Goals Goal [...] documented as of this encounter Care Teams Educational Technology Coordinator Relationship Specialty Start Date End Date Haily Robb FNP [address] [place] [address] PCP - General Family Medicine 05/01/22 documented as of this encounter
--- OUTSIDE RECORDS SUMMARY | 2024-11-18 12:00 | XMS_ITS | Encounter Summary ---
Author Organization [employer] Address [address] 7t [place] [address] Care Team Providers Care Baseball Glove Stuffer Name Role Phone Clarisse [facility] Primary Care Provider [phone] Reason for Visit * Reason Onset Date Comments Triage 09/20/2022 Encounter Details Date Type Department Care Team ([facility] st Contact Info) Description 09/20/2022 Telephone [facility] MEDICINE [address] [place], [place] [phone] [facility] [address] [place] [address] Triage Social History Tobacco Use Types Packs/Day [...] AM EST Triage call with [place] Cable Wirer ID [id number] Pt reports an area on back that [...] No high acuity concerns reported by caller CAMEROONIAN SPEAKER The caller accepted this outcome documented in this encounter Plan of Treatment Upcoming Encounters Date Type Department Care Team (Late st Contact Info) Description 04/24/2025 1:00 PM EDT Office Visit [facility] ADULT DENTAL [address] [place] [address] Zachariah, Claudette [address] [place] [address] documented as of this encounter Visit Diagnoses Not on filedocumented in this encounter Care Teams Baseball Glove Stuffer Relationship Specialty Start Date End Date Haily Robb FNP [address] [place] [address] PCP - General Family Medicine 05/01/22 documented as of this encounter
--- OUTSIDE RECORDS SUMMARY | 2024-11-18 12:00 | XMS_ITS | Encounter Summary ---
Author Organization [employer] Address [address] [facility] 7t [place] [address] Care Team Providers Care Endocrinology Teacher Name Role Phone Haily Robb ADMINISTRATIVE ASSISTANT RECEPTIONIST Primary Care Provider Reason for Visit * Reason Comments Med Refill Encounter Details Date Type Department Care Team ([facility] st Contact Info) Description 10/29/2023 Refill [facility] 230 [place], [place] [phone] Name, MD Collins 230 [place] [address] Chronic neck pain Social History Tobacco Use [...] with others, in a hotel, in a mcfp, living outside on the street, on a [...] the past 12 months, has t he [employer], gas, oil or water company threatened to [...] Office Visit [facility] ADULT DENTAL [address] [place] [address] Zachariah, Claudette [address] [place] [address] documented as of this encounter Visit Diagnoses Diagnosis Chronic neck pain Cervicalgia documented in this encounter Additional Health Concerns Assessment Noted Time PHQ-9 Depression Total Score: 0 08/15/20 23 3:52 PM EST documented as of this encounter Care Teams Endocrinology Teacher Relationship Specialty Start Date End Date Haily Robb FNP [address] [place] [address] PCP - General Family Medicine 05/01/22 documented as of this encounter
--- OUTSIDE RECORDS SUMMARY | 2024-11-18 12:00 | XMS_ITS | Encounter Summary ---
Author Organization [employer] Address [address] [facility] 7t [place] [address] Care Team Providers Care Health Promotion Specialist Name Role Phone Clarisse [facility] Primary Care Provider [phone] Reason for Visit * Reason Onset Date Comments Appointment Request 10/08/2023 Encounter Details Date Type Department Care Team ([facility] st Contact Info) Description 10/08/2023 Telephone [facility] MEDICINE 230 [place], [place] [phone] [facility] [address] [place] [address] Appointment Request Social History Tobacco Use Types [...] with others, in a hotel, in a mcc, living outside on the street, on a [...] gotten any better. Please contact pt at [phone] documented in this encounter Plan of Treatment Upcoming Encounters Date Type Department Care Team (Late st Contact Info) Description 04/24/2025 1:00 PM EDT Office Visit [facility] ADULT DENTAL [address] [place] [address] Zachariah, Claudette [address] [place] [address] documented as of this encounter Visit Diagnoses Not on filedocumented in this encounter Additional Health Concerns Assessment Noted Time PHQ-9 Depression Total Score: 0 08/15/20 23 3:52 PM EST documented as of this encounter Care Teams Health Promotion Specialist Relationship Specialty Start Date End Date Haily Robb FNP 230 [place] [address] PCP - General Family Medicine 05/01/22 documented as of this encounter
--- OUTSIDE RECORDS SUMMARY | 2024-11-18 12:00 | XMS_ITS | Encounter Summary ---
Author Organization [employer] Address [address] 7t [place] [address] Care Team Providers Care Bruise Trimmer Name Role Phone Clarisse [facility] Primary Care Provider [phone] Reason for Visit * Reason Onset Date Comments Medication Question 08/24/2022 Encounter Details Date Type Department Care Team ([facility] st Contact Info) Description 08/24/2022 Telephone [facility] MEDICINE [address] [place] [address] [facility] 230 [place] [address] Medication Question Social History Tobacco Use Types [...] requesting a call back. States went to cotton picker his medication and they gave him vitamin C and he would like to know if he should be taking them again . Please call to clarify. documented in this encounter Plan of Treatment Upcoming Encounters Date Type Department Care Team (Late st Contact Info) Description 04/24/2025 1:00 PM EDT Office Visit [facility] ADULT DENTAL 230 [place], [place] [phone] Claudette Soni 230 [place] [address] documented as of this encounter Visit Diagnoses Not on filedocumented in this encounter Care Teams Bruise Trimmer Relationship Specialty Start Date End Date Haily Robb FNP 230 [place] [address] PCP - General Family Medicine 05/01/22 documented as of this encounter
--- OUTSIDE RECORDS SUMMARY | 2024-11-18 12:01 | XMS_ITS | Encounter Summary ---
Author Organization [employer] Address [address] 7t [place] [address] Care Team Providers Care Rodeo Performer Name Role Phone Clarisse [facility] Primary Care Provider [phone] Reason for Visit * Reason Onset Date Comments Results 10/31/2024 Encounter Details Date Type Department Care Team ([facility] st Contact Info) Description 10/31/2024 Telephone [facility] MEDICINE 230 [place], [place] [phone] [facility] 230 [place] [address] Results Social History Tobacco Use Types Packs/Day [...] 1:00 PM EDT Office Visit [facility] ADULT DENTAL 230 [place], [place] [phone] Claudette Soni [address] [place] [address] documented as of this encounter Goals Goal Patient Goal Type Associated Problems Recent Progress Patient-Stated? Author Patient will adhere to medication regimen General No Mary Moreland documented as of this encounter Visit Diagnoses Not on filedocumented in this encounter Additional Health Concerns Assessment Noted Time PHQ-9 Depression Total Score: 0 10/10/19 25 1:23 PM EST documented as of this encounter Care Teams Rodeo Performer Relationship Specialty Start Date End Date Haily Robb FNP [address] [place] [address] PCP - General Family Medicine 05/01/22 documented as of this encounter
--- OUTSIDE RECORDS SUMMARY | 2024-11-18 12:01 | XMS_ITS | Encounter Summary ---
Author Organization [employer] Address [address] 7t [place] [address] Care Team Providers Care Disability Insurance Hearing Officer Name Role Phone [facility] Primary Care Provider [phone] Reason for Visit * Reason Comments Med Refill Encounter Details Date Type Department Care Team ([facility] st Contact Info) Description 10/30/2024 Refill [facility] 230 [place], [place] [phone] [facility] 230 [place] [address] Epigastric pain Social History Tobacco Use Types [...] 1:00 PM EDT Office Visit [facility] ADULT DENTAL [address] [place] [address] Zachariah, Claudette 230 [place] [address] documented as of this encounter Goals Goal [...] documented as of this encounter Care Teams Disability Insurance Hearing Officer Relationship Specialty Start Date End Date Haily Robb FNP 230 [place] [address] PCP - General Family Medicine 05/01/22 documented as of this encounter
--- OUTSIDE RECORDS SUMMARY | 2024-11-18 12:01 | XMS_ITS | Encounter Summary ---
Author Organization [employer] Address [address] 7t [place] [address] Care Team Providers Care Lan Specialist Name Role Phone Clarisse Haily CORNELL Primary Care Provider [phone] Encounter Details Date Type Department Care Team (Latest Contact Info) Description 06/16/[address] [facility] Dental, Provider, DDS Social History [...] Description 04/24/2025 1:00 PM EDT Office Visit [facility] ADULT DENTAL [address] [place] [address] Zachariah, Claudette [address] [place] [address] documented as of this encounter Visit Diagnoses Not on filedocumented in this encounter Care Teams Lan Specialist Relationship Specialty Start Date End Date Haily Robb FNP 230 [place] [address] PCP - General Family Medicine 05/01/22 documented as of this encounter
--- OUTSIDE RECORDS SUMMARY | 2024-11-18 12:01 | XMS_ITS | Encounter Summary ---
Author Organization [employer] Address [address] 7t [place] [address] Care Team Providers Care Optical Instrument Assembly Supervisor Name Role Phone [facility] Primary Care Provider [phone] Reason for Visit * Reason Onset Date Comments Telephone Call 10/28/2024 Encounter Details Date Type Department Care Team ([facility] st Contact Info) Description 10/28/2024 Refill [facility] MEDICINE 230 [place] [address] [facility] 230 [place] [address] Polyneuropathy Social History Tobacco Use Types Packs/Day [...] the past 12 months, has t he [employer], gas, oil or water [employer] threatened to shut off services in your [...] 9:11 AM EST TC placed to patient [phone] in regards to below message. Patient advised [...] patient was referred to TB clinic at [facility]. Per [facility] system, patient was scheduled for 09/29/24 however patient no showed. Patient advisedhe needs to call [facility] TB clinic to r/s his missed appointment. [...] Description 04/24/2025 1:00 PM EDT Office Visit [facility] ADULT DENTAL [address] [place] [address] Kailash Soniaris [address] [place] [address] documented as of this encounter Goals Goal [...] documented as of this encounter Care Teams Optical Instrument Assembly Supervisor Relationship Specialty Start Date End Date Haily Robb FNP 230 [place] [address] PCP - General Family Medicine 05/01/22 documented as of this encounter
--- OUTSIDE RECORDS SUMMARY | 2024-11-18 12:01 | XMS_ITS | Encounter Summary ---
Author Organization [employer] Address [address] 7t [place] [address] Care Team Providers Care Farm Management Supervisor Name Role Phone Clarisse [facility] Primary Care Provider [phone] Reason for Visit * Reason Onset Date Comments Nurse Triage 02/11/2024 Encounter Details Date Type Department Care Team ([facility] st Contact Info) Description 02/11/2024 Telephone [facility] MEDICINE 230 [place], [place] [phone] [facility] 230 [place] [address] Nurse Triage Social History Tobacco Use Types [...] the past 12 months, has t he [employer], gas, oil or water company threatened to [...] EDT Triage call returned to patient with [place] immigration paralegal [id number]. Patient reports ongoing issue withleft eye and [...] and she would like him referred to [facility] Blacksmith Apprentice. No diagnosis in chart.Advised of [facility] Walk [facility] Center for evaluation [...] Reason: Other Override Notes: Being treated with commissioning specialist with appt coming in 03/11/24 Video [...] involuntary movements The caller accepted this outcome Faroese speaker documented in this encounter Plan of Treatment Upcoming Encounters Date Type Department Care Team (Late st Contact Info) Description 04/24/2025 1:00 PM EDT Office Visit [facility] ADULT DENTAL 230 [place] [address] Zachariah, Claudette 230 [place] [address] documented as of this encounter Goals Goal Patient Goal Type Associated Problems Recent Progress Patient-Stated? Author Patient will adhere to medication regimen General No Mary Moreland documented as of this encounter Visit Diagnoses Not on filedocumented in this encounter Additional Health Concerns Assessment Noted Time PHQ-9 Depression Total Score: 0 08/15/20 23 3:52 PM EST documented as of this encounter Care Teams Farm Management Supervisor Relationship Specialty Start Date End Date Haily Robb FNP [address] [place] [address] PCP - General Family Medicine 05/01/22 documented as of this encounter
--- OUTSIDE RECORDS SUMMARY | 2024-11-18 12:01 | XMS_ITS | Encounter Summary ---
Author Organization [employer] Address [address] 7t [place] [address] Care Team Providers Care Ethylbenzene Converter Operator Name Role Phone Clarisse [facility] Primary Care Provider [phone] Reason for Visit * Reason Onset Date Comments Results 03/16/2023 Encounter Details Date Type Department Care Team ([facility] st Contact Info) Description 03/16/2023 Telephone [facility] MEDICINE 230 [place], [place] [phone] [facility] 230 [place] [address] Results Social History Tobacco Use Types Packs/Day [...] 03/20/2023 4:06 PM EDT Return T/C to [phone] for below message, No answer. LVM to call back on [phone]. * Telephone Encounter - Kelli Boucher - 03/16/2023 2:04 PM EDT Tc from pt requesting a call in regards to results to recent lab orders. Please contact pt at [phone] (Liberian speaker) documented in this encounter Plan of Treatment Upcoming Encounters Date Type Department Care Team (Late st Contact Info) Description 04/24/2025 1:00 PM EDT Office Visit [facility] ADULT DENTAL 230 [place], [place] [phone] ZachariahClaudette 230 [place] [address] documented as of this encounter Visit Diagnoses Not on filedocumented in this encounter Additional Health Concerns Assessment Noted Time PHQ-9 Depression Total Score: 0 01/26/20 23 3:38 PM EDT documented as of this encounter Care Teams Ethylbenzene Converter Operator Relationship Specialty Start Date End Date Haily Robb FNP 230 [place] [address] PCP - General Family Medicine 05/01/22 documented as of this encounter
--- OUTSIDE RECORDS SUMMARY | 2024-11-18 12:01 | XMS_ITS | Encounter Summary ---
Author Organization [employer] Address [address] 7t [place] [address] Care Team Providers Care Transportation Sales Consultant Name Role Phone [facility] Primary Care Provider [phone] Reason for Visit * Reason Comments Med Refill Encounter Details Date Type Department Care Team ([facility] st Contact Info) Description 08/28/2024 Refill [facility] MEDICINE 230 [place], [place] [phone] [facility] 230 [place] [address] Mixed anxiety and depressive disorder Social History [...] 1:00 PM EDT Office Visit [facility] ADULT DENTAL [address] [place] [address] Zachariah, Claudette [address] [place] [address] documented as of this encounter Goals Goal [...] documented as of this encounter Care Teams Transportation Sales Consultant Relationship Specialty Start Date End Date Haily Robb FNP 230 [place] [address] PCP - General Family Medicine 05/01/22 documented as of this encounter
--- OUTSIDE RECORDS SUMMARY | 2024-11-18 12:01 | XMS_ITS | Encounter Summary ---
Author Organization [employer] Address [address] 7t [place] [address] Care Team Providers Care Chucking Machine Set Up Operator Name Role Phone Haily Robb ROLL GRINDER Primary Care Provider [phone] Reason for Visit * Reason Comments Routine Cleaning Dental Exam x-rays Perio chart Encounter Details Date Type Department Care Team (Late st Contact Info) Description 10/22/2024 1:00 PM EST Office Visit [facility] ADULT DENTAL 230 [place] [address] Zachariah, Claudette [address] [place] [address] Partial edentulism, unspecified edentulism class (Primary Dx); [...] (Prophy, x-rays, Perio chart, P. exam) Location: [facility] Tooth: Maxilla and Mandible Procedure: Exam, X-rays, Prophylaxis, and Perio chart : due to Pt having mostly anteriors teeth approved Pas to be taken Verified the above with patient, reproductive healthcare assistant, and provider. Confirmed via patient's chart, intraorally and by radiographs. Recreation Technician: not applicable Medical Hx: Vitals: Blood pressure [...] patient including brushing technique and flossing. Recommendations: [place] two times daily, modified bey technique, floss [...] (Prophy, x-rays, Perio chart, P. exam) Location: [facility] Tooth: Maxilla and Mandible Procedure: Exam, X-rays, and Prophylaxis Verified the above with patient, reproductive healthcare assistant, and provider. Confirmed via patient's chart, intraorally and by radiographs. Recreation Technician: not applicable Chief Complaint Patient presents with [...] Moderate Risk former smoker Oral Hygiene Instructions: [place] two times daily, modified bey technique, Floss daily, Electric toothbrush, Soft bristle toothbrush, [place] Tongue Caries Risk Assessment: Low- no risk factor. NO new active carious lesions noticed Assessment/Plan KODY X Rays Prophy Patient tolerated procedure well, all questions answered and expressed understanding. Dismissed in good condition. NV: 6 mos recall Control Panel Operator: Claudette Soni RDH Dentist: Lino Andrews DDS documented in this encounter Plan of Treatment Upcoming Encounters Date Type Department Care Team (Late st Contact Info) Description 04/24/2025 1:00 PM EDT Office Visit [facility] ADULT DENTAL [address] [place] [address] Claudette Soni [address] [place] [address] Scheduled Orders Name Type Priority Associated Diagnoses [...] documented as of this encounter Care Teams Chucking Machine Set Up Operator Relationship Specialty Start Date End Date Haily Robb FNP [address] [place] [address] PCP - General Family Medicine 05/01/22 documented as of this encounter
--- OUTSIDE RECORDS SUMMARY | 2024-11-18 12:01 | XMS_ITS | Encounter Summary ---
Author Organization [employer] Address [address] 7t [place] [address] Care Team Providers Care Wad Printing Machine Operator Name Role Phone [facility] Primary Care Provider [phone] Reason for Visit * Reason Comments Med Refill Encounter Details Date Type Department Care Team (Late Contact Info) Description 01/01/2023 Refill [facility] MEDICINE 230 [place], [place] [phone] [facility] 230 [place] [address] Chronic sinusitis, unspecified location Social History Tobacco [...] [facility] [address] [place] [address] Claudette Soni [address] [place] [address] documented as of this encounter Visit Diagnoses Diagnosis Chronic sinusitis, unspecified location documented in this encounter Additional Health Concerns Assessment Noted Time PHQ-9 Depression Total Score: 0 11/03/19 23 10:32 AM EST documented as of this encounter Care Teams Wad Printing Machine Operator Relationship Specialty Start Date End Date Haily Robb FNP 230 [place] [address] PCP - General Family Medicine 05/01/22 documented as of this encounter
--- OUTSIDE RECORDS SUMMARY | 2024-11-18 12:01 | XMS_ITS | Encounter Summary ---
Author Organization [employer] Address [address] [place] [address] Care Team Providers Care Riding Coach Name Role Phone Clarisse [facility] Primary Care Provider [phone] Reason for Visit * Reason Onset Date Comments Nurse Triage 02/16/2023 Encounter Details Date Type Department Care Team ([facility] st Contact Info) Description 02/16/2023 Telephone [facility] MEDICINE 230 [place], [place] [phone] [facility] 230 [place] [address] Nurse Triage Social History Tobacco Use Types [...] - 02/23/2023 2:49 PM EDT T/C to [phone] through [employer] interpreters id - [id number] for below message, pt. Verbally agreed and understood. * Telephone Encounter - Angela Whitman LPN - 02/16/2023 2:48 PM EDT Triage call returned to patient via [employer] Surveillance Sensor Operator [id number]. Patient called with concerns of Left eye burning and tearing at times with blurred vision. No irritant or object in eye at this time. Patient reports that he was seen some time ago in [facility] Walk In [place] and was given order to obtain eye drops for dry eye. He is angry that he had to pay for them out of pocket and that they did not help. Patient requesting specifically a referral and declines appts. in [facility] or with Team providers later in the [...] suggested disposition Override Notes: Patient seen in [facility] [place] and was told to use eye drops several months ago. Patient requesting only referral to Pick Up Attendant. Video visit not offered Positive Triage Question: [...] The caller accepted this outcome Patient speaks welsh documented in this encounter Plan of Treatment Upcoming Encounters Date Type Department Care Team (Late st Contact Info) Description 04/24/2025 1:00 PM EDT Office Visit [facility] ADULT DENTAL [address] [place] [address] Kailash Soniaris [address] [place] [address] documented as of this encounter Visit Diagnoses Not on filedocumented in this encounter Additional Health Concerns Assessment Noted Time PHQ-9 Depression Total Score: 0 01/26/20 23 3:38 PM EDT documented as of this encounter Care Teams Riding Coach Relationship Specialty Start Date End Date Haily Robb FNP 230 [place] [address] PCP - General Family Medicine 05/01/22 documented as of this encounter
--- OUTSIDE RECORDS SUMMARY | 2024-11-18 12:01 | XMS_ITS | Encounter Summary ---
Author Organization [employer] Address [address] 7t [place] [address] Care Team Providers Care Manager Floral Name Role Phone Haily Robb REPAIR WEAVER Primary Care Provider [phone] Reason for Visit * Reason Comments Med Refill Encounter Details Date Type Department Care Team (Late st Contact Info) Description 04/02/[address] [facility] 230 [place] [address] Hollis Rutledge MD 230 [place] [address] Social History Tobacco Use Types Packs/Day Years [...] 04/24/2025 1:00 PM EDT Office Visit [facility] ADULT DENTAL 230 [place] [address] Claudette Soni 230 [place] [address] documented as of this encounter Visit Diagnoses Not on filedocumented in this encounter Additional Health Concerns Assessment Noted Time PHQ-9 Depression Total Score: 0 01/26/20 23 3:38 PM EDT documented as of this encounter Care Teams Manager Floral Relationship Specialty Start Date End Date Haily Robb FNP 230 [place] [address] PCP - General Family Medicine 05/01/22 documented as of this encounter
--- OUTSIDE RECORDS SUMMARY | 2024-11-18 12:01 | XMS_ITS | Encounter Summary ---
Author Organization [employer] Address [address] 7t [place] [address] Care Team Providers Care Restaurant Line Cook Name Role Phone [place] [facility] Primary Care Provider [phone] Reason for Visit * Reason Comments Med Refill Encounter Details Date Type Department Care Team ([facility] st Contact Info) Description 10/28/2024 Refill [facility] MEDICINE [address] [place], [place] [phone] [facility] [address] [place] [address] Social History Tobacco Use Types Packs/Day Years [...] 04/24/2025 1:00 PM EDT Office Visit [facility] ADULT DENTAL [address] [place] [address] Zachariah, Claudette [address] [place] [address] documented as of this encounter Goals Goal Patient Goal Type Associated Problems Recent Progress Patient-Stated? Author Patient will adhere to medication regimen General Mary Chauhan documented as of this encounter Visit Diagnoses Not on filedocumented in this encounter Additional Health Concerns Assessment Noted Time PHQ-9 Depression Total Score: 0 10/10/19 25 1:23 PM EST documented as of this encounter Care Teams Restaurant Line Cook Relationship Specialty Start Date End Date Haily Robb FNP 230 [place] [address] PCP - General Family Medicine 05/01/22 documented as of this encounter
--- OUTSIDE RECORDS SUMMARY | 2024-11-18 12:01 | XMS_ITS | Clinical Summary ---
Author Organization [facility] Address [address] [place] [address] Phone Care Team Providers Care Magazine Publisher Name Role Phone [facility] Primary Care Provider [phone] Medications polyethylene glycol (Golytely) 236-22.74-6.74 -5.86 gram [...] Phone Billing Address Personal/Family Self 1970 [address] [facility] [address] [place] [id number] MEDICAID - [place] Care Teams Magazine Publisher Relationship Specialty Start Date End Date Haily Robb [address] [id number] PCP - General 05/20/24
--- OUTSIDE RECORDS SUMMARY | 2024-11-18 12:01 | XMS_ITS | Encounter Summary ---
Author Organization [employer] Address [address] 7t [place] [address] Care Team Providers Care Utility Agent Name Role Phone [facility] Primary Care Provider [phone] Reason for Visit * Reason Onset Date Comments triage 11/10/2022 Encounter Details Date Type Department Care Team ([facility] st Contact Info) Description 11/10/2022 Telephone [facility] MEDICINE [address] [place], [place] [phone] [facility] 230 [place] [address] triage Social History Tobacco Use Types Packs/Day [...] in office. Pt agrees to come into [facility] for exam. Pt also advised [...] question The caller accepted this outcome speaks frisian documented in this encounter Plan of Treatment Upcoming Encounters Date Type Department Care Team (Late st Contact Info) Description 04/24/2025 1:00 PM EDT Office Visit [facility] ADULT DENTAL [address] [place] [address] Zachariah, Claudette [address] [place] [address] documented as of this encounter Visit Diagnoses Not on filedocumented in this encounter Additional Health Concerns Assessment Noted Time PHQ-9 Depression Total Score: 0 11/03/19 10:32 AM EST documented as of this encounter Care Teams Utility Agent Relationship Specialty Start Date End Date Haily Robb FNP 230 [place] [address] PCP - General Family Medicine 05/01/22 documented as of this encounter
--- OUTSIDE RECORDS SUMMARY | 2024-11-18 12:01 | XMS_ITS | Encounter Summary ---
Author Organization [employer] Address [address] 7[address] [place] [address] Care Team Providers Care Environmental Services Specialist Name Role Phone Clarisse Haily CORNELL Primary Care Provider [phone] Encounter Details Date Type Department Care Team (Latest Contact Info) Description 06/01/2022 Abstract [facility] [place] [facility] CONVERSIONS Dental, Provider, DDS Social History Tobacco [...] [facility] ADULT DENTAL 230 [place] [address] Zachariah, Claudette [address] [place] [address] documented as of this encounter Visit Diagnoses Not on filedocumented in this encounter Care Teams Environmental Services Specialist Relationship Specialty Start Date End Date Haily Robb FNP 230 [place] [address] PCP - General Family Medicine 05/01/22 documented as of this encounter
--- OUTSIDE RECORDS SUMMARY | 2024-11-18 12:01 | XMS_ITS | Encounter Summary ---
Author Organization [employer] Address [address] 7t [place] [address] Care Team Providers Care Credit Risk Management Director Name Role Phone [facility] Primary Care Provider [phone] Reason for Visit * Reason Onset Date Comments Medication Question 01/16/2023 Encounter Details Date Type Department Care Team ([facility] st Contact Info) Description 01/16/2023 Telephone [facility] MEDICINE [address] [place], [place] [phone] [facility] 230 [place] [address] Medication Question Social History Tobacco Use Types [...] Office Visit [facility] ADULT DENTAL [address] [place], [place] [phone] Zachariah, Claudette [address] [place], [place] [phone] documented as of this encounter Visit Diagnoses Not on filedocumented in this encounter Additional Health Concerns Assessment Noted Time PHQ-9 Depression Total Score: 0 11/03/19 23 10:32 AM EST documented as of this encounter Care Teams Credit Risk Management Director Relationship Specialty Start Date End Date Haily Robb FNP 230 [place] [address] PCP - General Family Medicine 05/01/22 documented as of this encounter
--- OUTSIDE RECORDS SUMMARY | 2024-11-18 12:01 | XMS_ITS | Encounter Summary ---
Author Organization [employer] Address [address] 7t [place] [address] Care Team Providers Care Promotions Associate Name Role Phone Haily Robb SENIOR ENGINEERING SPECIALIST Primary Care Provider [phone] Encounter Details Date Type Department Care Team ([facility] st Contact Info) Description 11/04/2024 Orders Only [facility] External Provider, [facility] Social History Tobacco Use Types Packs/Day [...] Office Visit [facility] ADULT DENTAL 230 [place] [address] Zachariah, Claudette [address] [place] [address] documented as of this encounter Goals Goal [...] EST Narrative 11/04/2024 12:32 PM EST ? [facility] ?[address] ?[place] [address] ? Ultrasound Report ? Signed ? Patient: Jr Neffva,Jean ?MR#: ?? [id number] ? : 1970 ?Acct:[id number] ? Age/Sex: 54 / M ?ADM Date: 11/04/24 ? Loc: HO.ED ? Attending Dr: ? Ordering Physician: Lorena Banks DO ?? Date of Service: 11/04/24 ?? Procedure(s): US abdomen limited ?? Accession Number(s): [id number] ? cc: Lorena Banks DO; Haily Robb SENIOR ENGINEERING SPECIALIST ? EXAMINATION: ?? US ABDOMEN LIMITED ? [...] DD/ 1149 ? TD/TT: 11/04/24 1202 ? Automotive Fleet Supervisor: ? Procedure Note Marilyn, Leonard - 11/04/[address] [address] Ultrasound Report Signed Patient: John Fitzpatrick [facility]#: [id number] : 1970Acct:[id number] Age/Sex: 54 / MADM Date: 11/04/24 Loc: HO.ED Attending Dr: Ordering Physician: Lorena Banks DO Date of Service: 11/04/24 Procedure(s): US abdomen limited Accession Number(s): [id number] cc: Lorena Banks DO; [facility] SENIOR ENGINEERING SPECIALIST EXAMINATION: US ABDOMEN LIMITED CLINICAL INFORMATION: Epigastric [...] 11/04/2024 12:28 PM EST RP Dictated By: aDrryl Rey MD Signed By: <Electronically signed by Darryl Lynn MDin OV> 11/04/24 1228 DD/ 1149 TD/TT: 11/04/24 1202 Automotive Fleet Supervisor: [facility] External Provider IMG US PROCEDURES Final Result * XR Chest 2 Views (11/04/2024 11:00 AM EST) Anatomical Region Laterality Modality Chest Radiographic Cecelia ging 11/04/2024 11:0 0 AM EST Narrative 11/04/2024 11:49 AM EST ? [facility] ?[address] ?[place] [address] ?XRay Report ? Signed ? Patient: Jrspike Adamsueva,Jean ?MR#: ?? [id number] ? : 1970 ?Acct:[id number] ? Age/Sex: 54 / M ?ADM Date: 11/04/24 ? Loc: HO.ED ? Attending Dr: ? Ordering Physician: Lorena Banks DO ?? Date of Service: 11/04/24 ?? Procedure(s): XR chest 2V ?? Accession Number(s): [id number] ? cc: Lorena Banks DO; Haily Robb SENIOR ENGINEERING SPECIALIST ? EXAMINATION: ?? XR CHEST ? CLINICAL [...] DD/ 1100 ? TD/TT: 11/04/24 1125 ? Automotive Fleet Supervisor: MSM ? Procedure Note Leonard Sanders - 11/04/[address] [address] XRay Report Signed Patient: John Fitzpatrick [facility]#: [id number] : 1970Acct:[id number] Age/Sex: 54 / MADM Date: 11/04/24 Loc: HO.ED Attending Dr: Ordering Physician: Lorena Banks DO Date of Service: 11/04/24 Procedure(s): XR chest 2V Accession Number(s): [id number] cc: Lorena Banks DO; Haily Robb SENIOR ENGINEERING SPECIALIST EXAMINATION: XR CHEST CLINICAL INFORMATION: chest pain [...] 11/04/24 1146 DD/ 1100 TD/TT: 11/04/24 1125 Automotive Fleet Supervisor: REY [facility] External Provider IMG XR PROCEDURES Final Result documented in this encounter Visit Diagnoses Not on filedocumented in this encounter Additional Health Concerns Assessment Noted Time PHQ-9 Depression Total Score: 0 10/10/19 25 1:23 PM EST documented as of this encounter Care Teams Promotions Associate Relationship Specialty Start Date End Date Haily Robb FNP [address] [place] [address] PCP - General Family Medicine 05/01/22 documented as of this encounter
--- OUTSIDE RECORDS SUMMARY | 2024-11-18 12:01 | XMS_ITS | Encounter Summary ---
Author Organization [employer] Address [address] 7[address] [place] [address] Care Team Providers Care Assault Amphibious Vehicle Officer Name Role Phone Haily Robb POSTAL SUPERINTENDENT Primary Care Provider [phone] Reason for Visit * Reason Comments Med Refill Encounter Details Date Type Department Care Team (Late st Contact Info) Description 04/02/2023 Refill [facility] MEDICINE [address] [place] [address] Juanjose Barton MD [address] [place] [address] Chronic pruritus Social History Tobacco Use Types [...] Office Visit [facility] ADULT DENTAL [address] [place] [address] Claudette Soni [address] [place] [address] documented as of this encounter Visit Diagnoses Diagnosis Chronic pruritus documented in this encounter Additional Health Concerns Assessment Noted Time PHQ-9 Depression Total Score: 0 01/26/20 23 3:38 PM EDT documented as of this encounter Care Teams Assault Amphibious Vehicle Officer Relationship Specialty Start Date End Date Haily Robb FNP [address] [place] [address] PCP - General Family Medicine 05/01/22 documented as of this encounter
--- OUTSIDE RECORDS SUMMARY | 2024-11-18 12:01 | XMS_ITS | Encounter Summary ---
Author Organization [employer] Address [address] [facility] 7t [place] [address] Care Team Providers Care Computer Hardware Engineer Name Role Phone [facility] Primary Care Provider [phone] Reason for Visit * Reason Onset Date Comments Med Refill 12/13/2023 Encounter Details Date Type Department Care Team ([facility] st Contact Info) Description 12/13/2023 Telephone [facility] MEDICINE [address] [place], [place] [phone] [facility] 230 [place] [address] Med Refill Social History Tobacco Use Types [...] with others, in a hotel, in a detention, living outside on the street, on a [...] the past 12 months, has t he [employer], gas, oil or water company threatened to [...] 10:24 AM EDT Medication was sent to [facility] on 11/09/23 with 2 refills. * Telephone Encounter - Christine Taylor - 12/13/2023 10:19 AM EDT TC from pt requesting medication refill. Medications needing refill : melatonin 5 MG tablet To be sent to: [facility] - [place], [place] - [address] [facility] documented in this encounter Plan of Treatment Upcoming Encounters Date Type Department Care Team (Late st Contact Info) Description 04/24/2025 1:00 PM EDT Office Visit [facility] ADULT DENTAL [address] [place] [address] Claudette Soni [address] [place] [address] documented as of this encounter Visit Diagnoses Not on filedocumented in this encounter Additional Health Concerns Assessment Noted Time PHQ-9 Depression Total Score: 0 08/15/20 23 3:52 PM EST documented as of this encounter Care Teams Computer Hardware Engineer Relationship Specialty Start Date End Date Haily Robb FNP [address] [place] [address] PCP - General Family Medicine 05/01/22 documented as of this encounter
== END 2024-11-18 10:21 | disposition home or self-care (01) ==
LOC: HO.NEURO 10:20
PROVIDERS: PCP Registered Nurse; Visit Provider Registered Nurse
DX: G62.9 Polyneuropathy, unspecified (principal)
CPT/HCPCS: 95911

== ENCOUNTER 2024-11-28 10:42 | Outpatient (AMB) | payer MEDICAID, SELFPAY ==
--- NOTE | 2024-11-28 10:45 | MHC.OFFVIS ---
Intake Visit Reasons: 6w/voiding and hypogonadism Intake Note: Pt presents to the office today for a 6 week follow up/voiding and hypogonadism. PVR:0mL Allergies SEAFOOD Allergy (Severe, Uncoded 12/30/24 11:21) ANAPHYLAXIS shellfish Allergy (Severe, Uncoded 12/30/24 11:21) Anaphylaxis HPI Comments Details: John is a male. He is a patient of Dr. Mar. He is seen for the following urologic conditions - hypogonadism - lower urinary tract symptoms - urinary retention Wolof translation provided by qualified site medical director Follow-up from August PVR 0 Effective bladder emptying Performing testosterone injection once every 2 weeks 1 cc Previously noted weakness of stream on discussion with nocturia and feelings of incomplete emptying Hypogonadism - on methadone Patient states everything is going well not having any complications or side effects which were reviewed the potential morbidity mortality of testosterone placement therapy reviewed all questions answered informed consent obtained. Injection day - Laboratory - Sunday Current therapy 1 cc every 2 weeks to his thigh testosterone cypionate Laboratories - 06/23 T 362, PSA 1.5, Hct 41.4, 06/24 T 159 H 42, 09/26 T 365, 05/27 T 700 P 2.4 Concurrent comorbidities - methadone use, nicotine Discussed laboratory results Follow in 6 months Lower urinary tract symptoms 06/26 episode of retention with UTI De La Fuente catheter Alfuzosin - blood pressure issues PFSH Medical History Anemia Hx of substance abuse Smoker History of Helicobacter pylori infection Spinal pain Hypogonadism Erectile dysfunction Hx: UTI (urinary tract infection) BPH (benign prostatic hyperplasia) Hx of hepatitis C GERD (gastroesophageal reflux disease) Anxiety and depression HTN (hypertension) Murmur Surgical History Hx of cystoscopy Family History Mother Diabetes Social History Alcohol intake: former Patient Tobacco Use Status: Current everyday Tobacco user Substance Use Type: Crack/Cocaine and Heroin Current occupational status: unemployed Review of Systems Const Denies chills and Denies fever(s) Card Reports no additional complaints and Denies syncope Resp Denies cough GI Denies abdominal pain and Denies heartburn Reports as per HPI and Denies change in libido Neuro Denies syncope Psych Denies change in libido Endo Denies change in libido Physical Exam Const General: cooperative, healthy appearing, comfortable and no acute distress Orientation/consciousness: patient oriented x3 HEENT Face and sinus: Yes normal facial exam Mouth: moist mucous membranes Neck Neck: Yes normal visual inspection, Yes full ROM and Yes trachea midline Chest Chest palpation & inspection: normal inspection of the chest Resp Effort & Inspection: normal respiratory effort, able to speak in complete sentences and no respiratory distress GI Inspection: Yes normal to inspection Back/Spine/Pelvis Cervical Spine: normal cervical lordosis Thoracic/Lumbar Spine: thoracic and lumbar spine normal to inspection Skin General skin exam: no rashes or lesions noted Neuro General: patient oriented x3, gait normal, tone normal and moves all extremities Extrem General: Yes normal to inspection and Yes capillary refill normal Office Procedures Post Void Residual Post Residual Void Post Void Residual (PVR): 0 [id number]-[id number] Void Residual by ultrasound Assessment & Plan Assessment & Plan (1) Hypogonadism in male: Code(s): E29.1 - Testicular hypofunction Category: Medical (2) Erectile dysfunction: Code(s): N52.9 - Male erectile dysfunction, unspecified Category: Medical (3) BPH (benign prostatic hyperplasia): Code(s): N40.0 - Benign prostatic hyperplasia without lower urinary tract symptoms Category: Medical Plan Six-month follow-up lab work Orders: Orders AMB Post Void Residual by ultrasound 11/28/24 N40.0 - Benign prostatic hyperplasia without lower urinary tract symptoms Testosterone, Total 6 Months E29.1 - Testicular hypofunction Complete Blood Count no Diff 6 Months E29.1 - Testicular hypofunction Prostate Specific Antigen 6 Months E29.1 - Testicular hypofunction Testosterone, Total 11/28/24 C61 - Malignant neoplasm of prostate, E29.1 - Testicular hypofunction Medications: Changed From tamsulosin 0.8 mg (2 x 0.4 mg) PO BEDTIME 60 caps 0RF E29.1 - Testicular hypofunction To tamsulosin 0.8 mg (2 x 0.4 mg) PO BEDTIME 180 caps 1RF 90 days E29.1 - Testicular hypofunction Refilled testosterone cypionate 200 mg IM Q2W 2 mL 5RF 28 days E29.1 - Testicular hypofunction Discontinued alfuzosin ER administer after the same meal each day Discontinued Reason: Patient Completed Course 10 mg PO DAILY 30 tabs 1RF Patient Instructions: This note is constructed using voice recognition software. While every effort has been made to ensure accuracy reporter errors may have been included. Imaging studies, laboratory and physical exam results were discussed and reviewed in detail. No major barriers to patient understanding were identified. An opportunity to ask questions regarding the treatment plan was provided. All questions were answered. The patient expressed understanding and agreement with the above treatment plan. The patient is aware they should contact our office by phone for worsening of their current condition or the appearance of new urologic symptoms. Compliance is encouraged with any medications and followup testing that is ordered. It is a privilege to participate in the urologic care of your patient. If you have any questions or concerns regarding treatment for the above conditions, or other urologic issues, please do not hesitate to contact me. The office telephone contact is [phone]. Sincerely, Dr Julian Lux MD, LIDA [facility] - Urology Compassionate Specialist Care for the Genitourinary System Coding Level of Care Code Est Pt Level 3 (47043) Complex EM visit Add On G2211 Diagnoses Hypogonadism in male E29.1 Erectile dysfunction N52.9 BPH (benign prostatic hyperplasia) N40.0 CPT Codes Post Residual Void - PVR CPT Code: 75756-Gmyz Void Residual by ultrasound ([id number])
== END 2024-11-28 11:28 | disposition home or self-care (01) ==
LOC: HO.HUSH 10:43
PROVIDERS: PCP Registered Nurse; Visit Provider Urology
DX: E29.1 Testicular hypofunction (principal); N52.9 Male erectile dysfunction, unspecified; N40.0 Benign prostatic hyperplasia without lower urinary tract symptoms
CPT/HCPCS: 99213

== ENCOUNTER → 2024-11-28 10:42 | Outpatient (BNVA) | payer MEDICAID, SELFPAY | PROVIDERS: PCP Registered Nurse; Visit Provider Urology | DX: E29.1 Testicular hypofunction (principal); N52.9 Male erectile dysfunction, unspecified; N40.0 Benign prostatic hyperplasia without lower urinary tract symptoms | CPT/HCPCS: 51798 ==

== ENCOUNTER 2024-11-28 11:38 | Outpatient (REF) | payer MEDICAID, SELFPAY ==
[2024-12-03 22:17] LABS: Testosterone, Total 40 ng/dL (250-1100)
== END 2024-11-28 11:39 | disposition home or self-care (01) ==
LOC: HO.10HDL 11:38
PROVIDERS: Visit Provider Urology
DX: C61 Malignant neoplasm of prostate (principal); E29.1 Testicular hypofunction
CPT/HCPCS: 36415; 84403

== ENCOUNTER 2024-12-01 10:12 | Emergency (ER) | payer MEDICAID, SELFPAY ==
--- NOTE | ~2024-12-01 | CT_ITS ---
EXAMINATION: CT ABDOMEN PELVIS WITH IV CONTRAST, CT CHEST WITH IV CONTRAST INDICATION: abdominal pain, lose weight COMPARISON: Comparison is made with the prior CT of the abdomen and pelvis dated 11/22/2021.. TECHNIQUE: CT scan of the chest, abdomen and pelvis was performed following administration of 85 mL Omnipaque 350 using standard departmental protocol. Coronal and sagittal reformatted images were generated and reviewed. Oral contrast material was not administered at the request of the referring physician. This CT exam was performed with one or more of the following dose reduction techniques: automated exposure control, adjustment of the mA and/or kV according to patient size, use of iterative reconstruction technique. DLP: 474 mGy-cm CHEST: THYROID: The thyroid is unremarkable. LUNGS: There are 3 mm nodules in the right upper lobe (series 6, image 45), and in the right lower lobe (series 6, image 96). The lungs are otherwise clear. MEDIASTINUM: There is no mediastinal lymphadenopathy. KAYLAH: There is no hilar lymphadenopathy. CARDIOVASCULATURE: The heart is normal in size. There is no pericardial effusion. The thoracic aorta is normal in caliber. DEGREE OF CORONARY CALCIFICATION: none PLEURA: There is no pleural effusion. No pneumothorax. MAIN AIRWAYS: The mainstem bronchi and proximal branches are patent. AXILLA: There is no axillary lymphadenopathy. SOFT TISSUES: Unremarkable. BONES: The bones are intact. ABDOMEN: LIVER: The liver is normal in size and contour. No liver mass is identified. The hepatic and portal veins are patent. GALLBLADDER / BILE DUCTS: The gallbladder is unremarkable. There is no intra or extrahepatic biliary ductal dilatation. SPLEEN: The spleen is normal in size. No focal splenic lesion is identified. PANCREAS: The pancreas is unremarkable in appearance. ADRENAL GLANDS: Within normal limits. KIDNEYS/RETROPERITONEUM: No renal calculi are identified. There is no hydronephrosis. No renal masses are identified. LYMPH NODES: No abdominal or pelvic lymphadenopathy. VASCULATURE: The abdominal aorta demonstrates atherosclerotic calcification, but is normal in caliber. MESENTERY/PERITONEUM: No free fluid. No masses. There is no free intraperitoneal gas. STOMACH: The stomach is collapsed, limiting evaluation. SMALL BOWEL: The small bowel is normal in caliber. COLON: There is a moderate amount of stool throughout the colon. APPENDIX: The appendix is not seen, however no inflammatory changes are seen adjacent to the cecum. URINARY BLADDER/PELVIC ORGANS: The urinary bladder is unremarkable. The prostate is normal in size. BONES / SOFT TISSUES: No suspicious bony or soft tissue abnormalities. CT/CT abdomen pelvis w IV con IMPRESSION: 3 mm right upper and lower lobe pulmonary nodules. Please see Fleischner Society guidelines below. Otherwise unremarkable contrast-enhanced CT of the chest, abdomen and pelvis. Fleischner Criteria for pulmonary nodule follow-up SOLID NODULES: Low risk patient: <6mm: no follow-up 6-8mm: 6 month follow-up CT >8mm: PET/Biopsy/ 3 month follow-up CT High risk patient: <6mm: 12 month follow-up CT 6-8mm: 6 month follow-up CT >8mm: PET/Biopsy/ 3 month follow-up CT SUB-SOLID/GROUNDGLASS NODULES: All patients: > or = 6mm: 6 month follow-up CT *Please note that in patients in the following categories, the Fleischner criteria do not apply: Immunocompromised, lung cancer screening population, age below 35, and patients with known malignancy Electronically signed by: Jean Pierre Adamson MD 12/01/2024 03:15 PM EDT
--- NOTE | ~2024-12-01 | XR_ITS ---
EXAMINATION: XR CHEST CLINICAL INFORMATION: sob COMPARISON: November 04, 2024. TECHNIQUE: 2 views of the chest were obtained. FINDINGS: Peribronchial pulmonary reticular pattern. Subtle increased opacity in the medial right lower hemithorax. No pleural effusion. No pneumothorax. Heart silhouette size is normal. Mild multilevel thoracic spondylosis. XR/XR chest 2V IMPRESSION: Questionable airspace disease, right middle lung lobe. Electronically signed by: Darryl Zaidi MD 12/01/2024 10:43 AM EDT
[2024-12-01 10:23] VITALS: BP 110/66; PULSE 80; RESP 16; TEMP 36.5; O2SAT 95; BMI 20.3
[2024-12-01 10:52] LABS: MANUAL DIFF FLAG NO
[2024-12-01 10:53] LABS: Basophils Percent Auto 0.7 % (0-2); Eosinophils Absolute Auto 0.1 X10*3/uL (0.0-0.4); Eosinophils Percent Auto 2.1 % (0-4); Hematocrit 43.3 % (42.0-52.0); Hemoglobin 14.8 g/dl (14.0-18.0); Imm Gran Abs Auto 0.01 X10*3/uL (0.00-0.03); Imm Gran Pct Auto 0.2 % (0.0-0.4); Lymphocytes Absolute Auto 1.1 X10*3/uL (1.2-4.9); Mean Corpuscular HGB Conc 34.2 g/dl (31.0-36.0); Mean Corpuscular Hemoglobin 31.7 pg (27.0-33.0); Mean Corpuscular Volume 92.7 fL (80.0-98.0); Mean Platelet Volume 11.3 fL (9.4-12.4); Monocytes Absolute Auto 0.3 X10*3/uL (0.1-1.2); Monocytes Percent Auto 6.8 % (2-11); Neutrophils Absolute Auto 2.8 x10*3/uL (2.0-8.3); Neutrophils Percent Auto 64.2 % (45-73); Platelet Count 171 X10*3/uL (160-400); Red Blood Count 4.67 X10*6/uL (4.60-5.80); Red Cell Distribution Width 12.4 % (11.0-16.0); White Blood Count 4.4 X10*3/uL (4.8-10.8)
[2024-12-01 11:07] LABS: Anion Gap 10 (12-20); Blood Urea Nitrogen 22 mg/dL (9-16); Calcium 9.4 mg/dL (8.4-10.2); Carbon Dioxide 32 mmol/L (22-29); Chloride 102 mmol/L (96-108); Creatinine Clr Calc Pharmacy 61.3; Estimated Glomerular Filt Rate > 60; Glucose Random 104 mg/dL (60-115); Potassium 4.2 mmol/L (3.3-5.1); Sodium 140 mmol/L (135-145)
--- NOTE | 2024-12-01 11:36 | ED_ITS ---
HPI - Male Genitourinary General Chief complaint: Urogenital-Male Stated complaint: Difficulty Urinating Time Seen by Provider: 12/01/24 11:24 Source: patient and educational sign language interpreter Mode of arrival: ambulatory Limitations: no limitations History of Present Illness ED Provider: DR. Ashby HPI Narrative: 54-year-old male came in for evaluation of abdominal pain, burning sensation while urination, feeling dizzy, no cough, no hemoptysis, no fever, patient is complaining of generalized abdominal pain and lost weight over past 3 months unintentionally, patient reported that he has been tested a skin TB testing 3 months ago by his PCP reportedly patient with positive with negative chest x-ray That was done on 11/04/2024 as a negative chest x-ray, patient was born in [place] unknown BCG vaccination, patient declined any respiratory symptoms only abdominal pain. Related Data Home Medications ?Medication ?Instructions ?Recorded ?Confirmed cholecalciferol (vitamin D3) 50 50 mcg PO DAILY 06/30/20 09/19/24 mcg (2,000 unit) capsule (Vitamin D3) clonazepam 1 mg tablet 1 mg PO DAILY 06/30/20 09/19/24 fluticasone propionate 50 1 spray intranasal DAILY 06/30/20 09/19/24 mcg/actuation nasal spray,suspension (Flonase Allergy Relief) hydroxyzine HCl 25 mg tablet 25 mg PO TID PRN Itching 06/30/20 09/19/24 methadone 40 mg soluble tablet 36 mg PO DAILY 06/30/20 09/19/24 fluoxetine 10 mg capsule 20 mg PO QAM 10/20/21 09/19/24 mirtazapine 15 mg tablet 15 mg PO BEDTIME 10/20/21 09/19/24 trazodone 50 mg tablet 25 mg PO BEDTIME 10/20/21 09/19/24 ascorbic acid (vitamin C) 500 mg 500 mg PO DAILY 12/16/21 09/19/24 tablet (Vitamin C) ferrous sulfate 325 mg (65 mg 325 mg PO DAILY 12/16/21 09/19/24 iron) tablet (FeroSul) lidocaine 5 % topical patch 0 patch topical 12/16/21 09/19/24 (Lidoderm) sennosides 8.6 mg tablet (senna) 17.2 mg PO DAILY 12/16/21 09/19/24 cetirizine 10 mg tablet 10 mg PO DAILY PRN congestion 05/18/22 09/19/24 nicotine 14 mg/24 hr daily 0 patch topical 06/22/22 09/19/24 transdermal patch albuterol sulfate 90 mcg/actuation 2 puff inhalation Q4H PRN wheezing 01/12/23 09/19/24 aerosol inhaler (Ventolin HFA) clonazepam 0.5 mg tablet 1 mg PO BID PRN 01/12/23 09/19/24 ibuprofen 600 mg tablet 600 mg PO Q8H PRN headache 01/12/23 09/19/24 melatonin 5 mg tablet 5 - 10 mg PO BEDTIME PRN 01/12/23 09/19/24 multivitamin 1 tab PO QAM 01/12/23 09/19/24 nicotine (polacrilex) 2 mg buccal 2 mg PO 01/12/23 09/19/24 lozenge rosuvastatin 10 mg tablet 10 mg PO QAM 01/12/23 09/19/24 simethicone 125 mg capsule (Gas 125 mg PO BEDTIME 01/12/23 09/19/24 Relief Extra Strength) omeprazole 40 mg capsule,delayed 40 mg PO QAM 09/19/24 09/19/24 release Previous Rx's ?Medication ?Instructions ?Recorded docusate sodium 100 mg capsule 200 mg (2 x 100 mg) PO BEDTIME 30 06/03/20 (Colace) days #60 caps bisacodyl 5 mg tablet,delayed 10 mg (2 x 5 mg) PO ONCE 05/18/22 release (Dulcolax (bisacodyl)) colonoscopy prep 1 day #2 tabs polyethylene glycol 3350 17 238 g PO ONCE 1 day #238 grams 05/18/22 gram/dose oral powder (Miralax) phenylephrine HCl 10 mg tablet 10 mg PO Q6H PRN nasal congestion 12/17/23 (Sudafed PE) #10 tabs diazepam 5 mg tablet (Valium) 5 mg PO BID PRN muscle spasm #10 07/24/24 tabs furosemide 20 mg tablet (Lasix) 20 mg PO DAILY #90 tabs 08/29/24 needle (disp) 18 G 18 gauge x 1 #30 ea 09/29/24 (BD Regular Bevel [place]) needle (disp) 22 G 22 gauge x 1 #30 ea 10/24/24 sucralfate 100 mg/mL oral 10 ml PO BID 14 days #280 mL 11/04/24 suspension (Carafate) syringe (disposable) 3 mL (BD #25 ea 11/27/24 Luer-Vira Syringe) tamsulosin 0.4 mg capsule 0.8 mg (2 x 0.4 mg) PO BEDTIME 90 11/28/24 days #180 caps testosterone cypionate 200 mg/mL 200 mg IM Q2W 28 days #2 mL 11/28/24 intramuscular oil Allergies Allergy/AdvReac Type Severity Reaction Status Date / Time SEAFOOD Allergy Severe ANAPHYLAXIS Uncoded 12/01/24 10:32 shellfish Allergy Severe Anaphylaxis Uncoded 12/01/24 10:32 Review of Systems 2 Review of Systems: All other systems are reviewed and are negative Constitutional: Reports as per HPI and Reports no additional constitutional complaints Eyes: Reports as per HPI and Reports no additional eye complaints Reports system reviewed and no additional complaints, except as documented Cardiovascular: Reports as per HPI and Reports no additional cardiovascular complaints Respiratory: Reports as per HPI and Reports no additional respiratory complaints Gastrointestinal: Reports as per HPI and Reports no additional gastrointestinal complaints Genitourinary: Reports no additional female genitourinary complaints Musculoskeletal: Reports no additional musculoskeletal complaints Skin/Breast: Reports system reviewed and no additional complaints, except as docu Psychiatric: Reports no additional psychiatric complaints Endocrine: Reports no additional endocrine complaints Hematologic/Lymphatic: Reports no additional hematologic/lymphatic complaints Allergic/Immunologic: Reports no additional allergic/immunologic complaints Reports system reviewed and no additional complaints, except as documented and Reports Abnormal speech present [facility] Past Medical History Medical History Anemia Hx of substance abuse Smoker History of Helicobacter pylori infection Spinal pain Hypogonadism Erectile dysfunction Hx: UTI (urinary tract infection) BPH (benign prostatic hyperplasia) Hx of hepatitis C GERD (gastroesophageal reflux disease) Anxiety and depression HTN (hypertension) Murmur Surgical History Hx of cystoscopy Family History Family History Mother Diabetes Social History Social History Alcohol intake: former Patient Tobacco Use Status: Current everyday Tobacco user Substance Use Type: Crack/Cocaine and Heroin Advance Directives: No Advance Directives Information Provided: Yes Current occupational status: unemployed Physical Exam 2 Vital Signs: Vital Signs: Last Vital Signs Temp 97.7 F 12/01/24 10:23 Pulse 61 12/01/24 14:17 Resp 14 12/01/24 14:17 BP 106/65 12/01/24 14:17 Pulse Ox 99 12/01/24 14:17 O2 Del Method Room Air 12/01/24 14:17 BMI result Body Mass Index 20.3 Vital signs have been reviewed and appear to be correct. Blood pressure elevated. Heart rate normal. Respiratory rate normal. Temperature normal. Oxygen saturation normal. Appearance: Alert. Oriented X3. No acute distress. Head: Normal external exam. Normocephalic. Atraumatic. No Marrufo signs noted. No raccoon eyes noted Eyes: PERRLA. EOMI. Conjunctiva and sclera normal. Eyelids normal. ENT: TM's Normal. Pharynx normal. Uvula midline. Moist mucous membranes. No trismus noted. No drooling noted. No muffled voice noted. Neck: Normal inspection. Neck supple. FROM. No adenopathy. Thyroid Normal. No meningeal signs. No neck mass noted. CVS: Normal heart rate and rhythm. Heart sound normal. No murmurs noted. Pulses normal throughout. Respiratory: No respiratory distress. Painless inspiration. Breath sounds normal. No wheezes/rales/rhonchi noted. Chest nontender. No accessory muscle usage noted or decreased air movement noted. Abdomen: Soft and nontender. Bowel sounds normal in all 4 quadrants. No distention noted. No organomegaly noted. No visible injury noted. Back: No CVA tenderness. Full range of motion noted. Skin: Skin warm and dry. Normal skin color. Normal skin turgor. No rashes/lesions/lacerations noted. Extremities: No lower extremity edema. Extremities exhibit normal range of motion. Extremities nontender. Neuro: Oriented X 3. Cranial nerve exam: II-XII are grossly intact No motor deficit. No sensory deficit. Reflexes normal. Course Reevaluation(s) Reevaluation #1: 54-year-old male came in with few months of abdominal pain and unintentional weight loss, VSS, physical exam is unremarkable, labs is at baseline but overall unremarkable, patient had CT chest and abdomen is just remarkable for right pulmonary nodule the patient was instructed to follow-up with his PCP, patient with a reportedly positive PPD but low risk x-ray/ CT without cavitary lesion making a diagnosis of TB is unremarkable patient has T spot serology test is pending ( it is outside testing ) will follow-up on the test, no indication to continue antibiotic. CT chest is showing small right pulmonary nodule patient was instructed to follow-up with his PCP for repeat outpatient radiographic studies. Dysuria with no STD risk, UA reveals no UTI. Time: 15:46 Medications Administered Discontinued Medications Generic Name Dose Route Start Last Admin Trade Name Freq PRN Reason Stop Dose Admin Doxycycline Monohydrate 100 mg 12/01/24 11:27 12/01/24 11:44 Doxycycline Monohydrate 100 Mg Capsule PO 12/01/24 11:28 100 mg ONCE ONE Administration Iohexol 85 ml 12/01/24 14:47 12/01/24 14:48 Iohexol 350 Mg/Ml 100 Ml Infus..Btl IV 12/01/24 14:48 85 ml ONCE ONE Administration Medical Decision Making Differential Diagnosis Differential Diagnoses: The differential diagnosis associated with the presentation includes ( TB, pneumonia, pneumothorax, pleural effusion, intra- abdominal pathology, electrolyte derangement, severe anemia.) Admission/Observation Consideration of admission/observation: Escalation of care including admission/observation considered Lab Data MDM Lab Attestation statement: I reviewed the patient's lab results. 12/01/24 10:45 12/01/24 10:45 Labs: Lab Results 12/01/24 12/01/24 Range/Units 10:45 11:52 WBC 4.4 L (4.8-10.8) X10*3/uL RBC 4.67 (4.60-5.80) X10*6/uL Hgb 14.8 (14.0-18.0) g/dl Hct 43.3 (42.0-52.0) % MCV 92.7 (80.0-98.0) fL MCH 31.7 (27.0-33.0) pg MCHC 34.2 (31.0-36.0) g/dl RDW 12.4 (11.0-16.0) % Plt Count 171 D (160-400) X10*3/uL MPV 11.3 (9.4-12.4) fL Immature Gran % (Auto) 0.2 (0.0-0.4) % Neut % (Auto) 64.2 (45-73) % Lymph % (Auto) 26.0 (20-40) % [place] % (Auto) 6.8 (2-11) % Eos % (Auto) 2.1 (0-4) % Baso % (Auto) 0.7 (0-2) % Lymph # (Auto) 1.1 L (1.2-4.9) X10*3/uL [place] # (Auto) 0.3 (0.1-1.2) X10*3/uL Eos # (Auto) 0.1 (0.0-0.4) X10*3/uL Baso # (Auto) 0.0 (0.0-0.2) X10*3/uL Abs Immat Gran (auto) 0.01 (0.00-0.03) X10*3/uL Absolute Neuts (auto) 2.8 (2.0-8.3) x10*3/uL Absolute Nucleated RBC 0.000 (0.0-0.012) X10*3/uL Nucleated RBC % (auto) 0.0 (0.0-0.2) /100WBC Sodium 140 (135-145) mmol/L Potassium 4.2 (3.3-5.1) mmol/L Chloride 102 (96-108) mmol/L Carbon Dioxide 32 H (22-29) mmol/L Anion Gap 10 L (12-20) BUN 22 H (9-16) mg/dL Creatinine 1.15 (0.5-1.4) mg/dL Estim Creat Clear Calc 61.3 Estimated GFR > 60 Random Glucose 104 (60-115) mg/dL Calcium 9.4 (8.4-10.2) mg/dL Urine Color Yellow Urine Appearance Clear Urine pH 7.5 (5.0-9.0) Ur Specific [place] 1.020 (1.005-1.025) Urine Protein Negative (Neg-Trace) mg/dL Urine Glucose (UA) Negative (Negative) mg/dL Urine Ketones Negative (Negative) mg/dL Urine Blood Negative (Negative) Urine Nitrite Negative (Negative) Ur Leukocyte Esterase Negative (Negative) Influenza Type A (PCR) NEGATIVE (Negative) Influenza Type B (PCR) NEGATIVE (Negative) RSV RNA Qual (PCR) NEGATIVE (Negative) SARS-CoV-2 RNA (RT-PCR) NEGATIVE (Negative) Independent Interpretation I performed an independent interpretation of an: CT Scan ( Chest, abdomen, and pelvis:3 mm right upper and lower lobe pulmonary nodules. Please see Fleischner Society guidelines below. Otherwise unremarkable contrast-enhanced CT of the chest, abdomen and pelvis. ) Radiology Impression Discussion of test interpretation with radiology: I have reviewed the radiologist's reading. Discharge Plan Discharge Clinical Impression: Abdominal pain, Dysuria, Pulmonary nodule Patient Disposition: Home, Self-Care Instructions: Pulmonary Nodules (ED) Prescriptions: No Action docusate sodium [Colace] 100 mg capsule 200 mg PO BEDTIME 30 Days Qty: 60 3RF (DME) needle (disp) 18 G [BD Regular Bevel [place]] 18 gauge x 1 needle See Rx Instructions .Route Qty: 30 0RF Rx Instructions: As directed to draw testosterone (DME) needle (disp) 22 G 22 gauge x 1 needle See Rx Instructions .Route Qty: 30 0RF Rx Instructions: As directed to inject testosterone (DME) syringe (disposable) [BD Luer-Vira Syringe] 3 mL syringe See Rx Instructions .Route Qty: 25 0RF Rx Instructions: As directed 1 syringe [id number] 2 syringes total per month for T injection clonazepam 1 mg Tablet 1 mg PO DAILY methadone 40 mg Tablet,Soluble 36 mg PO DAILY hydroxyzine HCl 25 mg Tablet 25 mg PO TID PRN (Reason: Itching) fluticasone propionate [Flonase Allergy Relief] 50 mcg/actuation [place],Suspension 1 spray INTRANASAL DAILY cholecalciferol (vitamin D3) [Vitamin D3] 50 mcg (2,000 unit) Capsule 50 mcg PO DAILY phenylephrine HCl [Sudafed PE] 10 mg tablet 10 mg PO Q6H PRN (Reason: nasal congestion) Qty: 10 0RF sucralfate [Carafate] 100 mg/mL suspension 10 ml PO BID 14 Days Qty: 280 0RF diazepam [Valium] 5 mg tablet 5 mg PO BID PRN (Reason: muscle spasm) Qty: 10 0RF trazodone 50 mg tablet 25 mg PO BEDTIME mirtazapine 15 mg tablet 15 mg PO BEDTIME fluoxetine 10 mg capsule 20 mg PO QAM nicotine 14 mg/24 hr patch 24 hour 0 patch topical bisacodyl [Dulcolax (bisacodyl)] 5 mg tablet,delayed release (DR/EC) 10 mg PO ONCE 1 Days Qty: 2 0RF Rx Instructions: Take 2 tablets by mouth at 12:00pm the day before your procedure. polyethylene glycol 3350 [Miralax] 17 gram/dose powder 238 g PO ONCE 1 Days Qty: 238 0RF Rx Instructions: Take as directed by mouth the day before your procedure. cetirizine 10 mg tablet 10 mg PO DAILY PRN (Reason: congestion) lidocaine [Lidoderm] 5 % adhesive patch,medicated 0 patch topical ferrous sulfate [FeroSul] 325 mg (65 mg iron) tablet 325 mg PO DAILY ascorbic acid (vitamin C) [Vitamin C] 500 mg tablet 500 mg PO DAILY sennosides [senna] 8.6 mg tablet 17.2 mg PO DAILY furosemide [Lasix] 20 mg tablet 20 mg PO DAILY Qty: 90 0RF tamsulosin 0.4 mg capsule 0.8 mg PO BEDTIME 90 Days Qty: 180 1RF testosterone cypionate 200 mg/mL oil 200 mg IM Q2W 28 Days Qty: 2 5RF albuterol sulfate [Ventolin HFA] 90 mcg/actuation HFA aerosol inhaler 2 puff inhalation Q4H PRN (Reason: wheezing) ibuprofen 600 mg tablet 600 mg PO Q8H PRN (Reason: headache) melatonin 5 mg tablet 5 - 10 mg PO BEDTIME PRN rosuvastatin 10 mg tablet 10 mg PO QAM clonazepam 0.5 mg tablet 1 mg PO BID PRN nicotine (polacrilex) 2 mg lozenge 2 mg PO simethicone [Gas Relief Extra Strength] 125 mg capsule 125 mg PO BEDTIME multivitamin Tablet 1 tab PO QAM omeprazole 40 mg capsule,delayed release(DR/EC) 40 mg PO QAM Referrals: Haily Robb, PICK UP ATTENDANT [Primary Care Provider] - Print Language: Maori
[2024-12-01 11:38] LABS: Influenza A PCR NEGATIVE (Negative); Influenza B PCR NEGATIVE (Negative); Resp Syncy Virus RNA Qual PCR NEGATIVE (Negative); SARS COV2 PCR INHOUSE NEGATIVE (Negative)
[2024-12-01] MEDS: Doxycycline Monohydrate 100 MG CAPSULE PO (11:44)
[2024-12-01 12:02] LABS: Appearance Urine Clear; Color Urine Yellow; Glucose Urine UA Negative (Negative); Leukocyte Esterase Urine Negative (Negative); Nitrite Urine Negative (Negative); PH 7.5 (5.0-9.0); Urine Blood Negative (Negative); Urine Ketones Negative (Negative); Urine Protein Negative (Neg-Trace)
--- OUTSIDE RECORDS SUMMARY | 2024-12-01 13:31 | XMS_ITS | Encounter Summary ---
Author Organization [employer] Address [address] [place] [address] Care Team Providers Care Field Adjuster Name Role Phone [place] [facility] Primary Care Provider [phone] Reason for Visit * Reason Comments Med Refill Encounter Details Date Type Department Care Team ([facility] st Contact Info) Description 09/05/2022 Telephone [facility] MEDICINE [address] [place], [place] [phone] [facility] [address] [place] [address] Med Refill Social History Tobacco Use Types [...] - 09/06/2022 8:18 AM EST TC via P/I#[id number], explained to pt that his Clonazepam [facility] [address] [facility] Provided pt the phone number for the [facility] site and encouraged him to call them for all refills of his Clonazepam. 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 * Telephone Encounter - Yessi Cannon RN - 09/05/2022 3:04 PM EST Note on 08/02/22: Medication request:CLONAZEPAM Last visit 06/27/22. You sent a refill in June, it was picked up 07/12/22. He was originally getting this elsewhere. Not sure what you'd like to do. 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 documented in this encounter Plan of Treatment Upcoming Encounters Date Type Department Care Team (Late st Contact Info) Description 04/24/2025 1:00 PM EDT Office Visit [facility] ADULT DENTAL [address] [place] [address] Claudette Soni [address] [place] [address] documented as of this encounter Visit Diagnoses Diagnosis Other specified anxiety disorders documented in this encounter Care Teams Field Adjuster Relationship Specialty Start Date End Date Haily Robb FNP [address] [place] [address] PCP - General Family Medicine 05/01/22 documented as of this encounter
--- OUTSIDE RECORDS SUMMARY | 2024-12-01 13:31 | XMS_ITS | Encounter Summary ---
Author Organization [employer] Address [address] [place] [address] Care Team Providers Care Tare Weigher Name Role Phone Clarisse [facility] Primary Care Provider Reason for Visit * Reason Onset Date Comments Medication Question 08/24/2022 Encounter Details Date Type Department Care Team ([facility] st Contact Info) Description 08/24/2022 Telephone [facility] MEDICINE [address] [place] [address] [facility] [address] [place] [address] Medication Question Social History Tobacco Use Types [...] a call back. States went to pick up attendant his medication and they gave him vitamin C and he would like to know if he should be taking them again . Please call to clarify. documented in this encounter Plan of Treatment Upcoming Encounters Date Type Department Care Team (Late st Contact Info) Description 04/24/2025 1:00 PM EDT Office Visit [facility] ADULT DENTAL [address] [place], [place] [phone] Claudette Soni [address] [place] [address] documented as of this encounter Visit Diagnoses Not on filedocumented in this encounter Care Teams Tare Weigher Relationship Specialty Start Date End Date Haily Robb FNP [address] [place] [address] PCP - General Family Medicine 05/01/22 documented as of this encounter
--- OUTSIDE RECORDS SUMMARY | 2024-12-01 13:31 | XMS_ITS | Encounter Summary ---
Author Organization [employer] Address [address] [place] [address] Care Team Providers Care Senior Windows Administrator Name Role Phone Clarisse [facility] Primary Care Provider [phone] Reason for Visit * Reason Onset Date Comments Med Refill 09/25/2023 Encounter Details Date Type Department Care Team ([facility] st Contact Info) Description 09/25/2023 Telephone [facility] MEDICINE [address] [place], [place] [phone] [facility] [address] [place] [address] Med Refill Social History Tobacco Use Types [...] the past 12 months, has t he [employer], gas, oil or water company threatened to [...] 200 MG/ML injection To be sent to: [facility] - [place], [place] - [address] documented in this encounter Plan of Treatment Upcoming Encounters Date Type Department Care Team (Late st Contact Info) Description 04/24/2025 1:00 PM EDT Office Visit [facility] ADULT DENTAL [address] [place] [address] Claudette Soni [address] [place] [address] documented as of this encounter Visit Diagnoses Not on filedocumented in this encounter Additional Health Concerns Assessment Noted Time PHQ-9 Depression Total Score: 0 08/15/20 3:52 PM EST documented as of this encounter Care Teams Senior Windows Administrator Relationship Specialty Start Date End Date Haily Robb FNP [address] [place] [address] PCP - General Family Medicine 05/01/22 documented as of this encounter
--- OUTSIDE RECORDS SUMMARY | 2024-12-01 13:31 | XMS_ITS | Clinical Summary ---
Author Organization [employer] Address [address] [place] [address] Care Team Providers Care Acoustic Intelligence Specialist Name Role Phone Haily Robb [facility] Primary Care Provider [phone] Allergies Active Allergy Reactions Criticality Noted Date [...] minutes before procedure 2 tablet 025 Active omeprazole (PriLOSEC) [address] [...] EVERY MORNING 90 capsule 3 025 Active QUEtiapine (SEROquel) 25 MG tablet Take 25 mg by mouth if needed at bedtime. 024 Active polyethylene glycol (GoLYTELY) 236 g solution Take 4L by mouth once for one dose. May substitue any PEG. Starting at 6PM the night before your procedure drink 1 8oz glasses at your own pace until you complete half of the gallon. Finish 2nd half of the gallon 5 hours before your procedure. Active mirtazapine (Remeron) 15 MG tablet Take 15 mg by mouth at bedtime. Active DULoxetine (Cymbalta) [address] capsule Take 20 mg by mouth in the morning. Active sucralfate (Carafate) 1 GM/10ML suspension Take 10 mL (1 g) by mouth every 6 (six) hours. 473 mL Active acetaminophen (Tylenol Extra Strength) 500 MG tablet Take 1 tablet (500 mg) by mouth every 6 (six) hours if needed for mild pain. 60 tablet 1 025 2024 Active cholecalciferol (D3 Super Strength) 50 MCG (1999 UT) capsuleIndication s:Vitamin D deficiency TAKE 1 CAPSULE BY MOUTH EVERY DAY 90 capsule 3 024 2024 Discontinued acetaminophen (Tylenol 8 Hour) 650 MG ER tablet TAKE 1 TABLET BY MOUTH EVERY 8 HOURS NEEDED FOR MILD PAIN DO NOT BREAK, CRUSH, DISSOLVE OR CHEW 60 tablet 1 025 2024 Discontinued(T herapy completed) sucralfate (Carafate) 1 GM/10ML suspension TAKE 10MLS BY MOUTH TWICE DAILY FOR FOURTEEN DAYS 025 2024 Discontinued(R eorder (will not trigger notification to Pharmacy)) Active Problems Problem Noted Date Diagnosed Date Interstitial lung disease 11/25/2024 Normal oral exam 10/22/2024 Urinary retention 09/01/2024 [...] ? Established with therapy and psychiatry at [facility] ? ? No rash, fever, chills, [...] for anxiety sxs) that comes referred from [facility] for exacerbated anxiety in presence of increased [...] a good support system through his family, yarsani and recovery network, as well as having [...] to explore potential nerve damage due to fci use of anxiolytics, even though John is on low dose medication. At this time is unclear if crawling/burning sensation on skin is solely due to medical and/or somatic presentation. However, sxs are causing significant psychological distress in patient. John was given information on how to reach out to [facility] team and [facility] numbers for crisis. [...] male 11/02/2022 Overview (11/02/2022): ?? Followed by [facility] urology Dr. Lux ?? subcutaneous testosterone injection [...] 02/22/2017 Overview (08/05/2023): ? ? Followed by [facility] ? ? Clonazepam PRN ? ? Clonidine PRN Assessment & Plan (11/06/2022 5:05 AM EST): Spoke with [facility]-the blue conazepam tablets that patient prefer are from a different auto bench mechanic and are on back order. ?? Pt [...] Encounters Date Type Department Care Team Description 12/01/2024 Orders Only GENERIC EXTERNAL DATA DEPARTMENT Provider, Generic External Data 11/25/2024 11:00 AM EDT Office Visit [facility] [address] [facility] [place] [address] Jana Morgan MD Interstitial lung disease ([facility]) (Primary Dx); Opioid dependence, uncomplicated ([facility]) 11/25/2024 Travel 11/24/2024 Telephone [facility] [address] [address] Haily Robb FNP Nurse Triage 11/20/2024 Telephone [facility] [address] [facility] [place] [address] Haily Robb FNP Call Back Request 11/17/2024 Telephone [facility] [address] [place] [address] Hialy Robb FNP No Show (Patient no show for sick on site ) 11/14/2024 Population Health [facility] () Department [address] [place] [phone] Provider, Population Health Generic 11/13/2024 Telephone [facility] [address] [facility] [place] [address] Haily Robb FNP Lab Orders 11/13/2024 Refill [facility] [address] [place] [address] Haily Robb FNP Vitamin D deficiency 11/04/2024 Orders Only [facility] External Provider, [facility] 10/31/2024 Telephone [facility] [address] [place] [address] Haily Robb FNP Results 10/30/2024 Refill [facility] [address] [place] [address] Haily Robb FNP Epigastric pain 10/28/2024 Refill [facility] [address] [place] [address] Haily Robb FNP Polyneuropathy 10/28/2024 Refill [facility] [address] [place] [address] Haily Robb FNP 10/22/2024 1:00 PM EST Office Visit [facility] ADULT DENTAL [address] [place] [address] Claudette Soni Partial edentulism, unspecified edentulism class (Primary Dx); Dental calculus; Generalized gingival recession, moderate; Normal oral exam 10/14/2024 Telephone [facility] [address] [place] [address] Haily Robb FNP Results 10/10/2024 1:15 PM EST Office Visit [facility] [address] [place] [phone] Haily Robb FNP Polyneuropathy (Primary Dx); Bilateral lower extremity edema; Ataxia; Chronic pain of both knees; Anxiety due to invasive procedure; Shortness of breath 10/10/2024 Travel 10/01/2024 Refill [facility] [address] [place] [address] Haily Robb FNP Mixed anxiety and depressive disorder 09/24/2024 2:40 PM EST Office Visit [facility] [address] [place] [phone] Pepper Balderrama MD Bilateral lower extremity edema (Primary Dx) 09/16/[address] [address] Haily Robb FNP Durable Medical Equipment (Compression stockings) 09/12/2024 Telephone [place] [facility] [address] [place] [phone] Haily Robb FNP 09/02/[address] [address] FertileHaily molina [employer] Durable Medical Equipment (Compression stockings) from Last 3 Months Immunizations Name Administration [...] Sign Reading Time Taken Comments Blood Pressure 123/75 11/25/2024 11:20 AM EDT Pulse 68 11/25/2024 11:20 AM EDT Temperature 36.6 ??C (97.8 ??F) 11/25/2024 1 1:20 AM EDT Respiratory Rate 16 11/25/2024 11:2 0 AM EDT Oxygen Saturation 99% 11/25/2024 11: 20 AM EDT Inhaled Oxygen Concentration - - Weight 61.6 kg (135 lb 12.8 oz) 025 11:20 AM EDT Height 167.6 cm (5' 6 ) 11/25/2024 11:2 0 AM EDT Body Mass Index 21.92 11/25/2024 11:20 AM EDT Plan of Treatment Upcoming Encounters Date Type Department Care Team (Late st Contact Info) Description 04/24/2025 1:00 PM EDT Office Visit [facility] ADULT DENTAL [address] [place], [place] [phone] Zachariah, Claudette [address] [place] [address] Health Maintenance Due Date Last Done Comments [...] Depression Screening 10/10/2025 10/10/2024, 10/10/19 Tobacco Screening 11/25/2025 11/25/2024 Dental X-Ray: Full Mouth 09/12/2026 09/11/2023, 06/04 [...] Procedure Name Priority Date/Time Associated Diagnosis Comments URINALYSIS WITH REFLEX MICROSCOPIC Routine 12/01/2024 11:52 AM EDT BASIC METABOLIC PANEL Routine 12/01/2024 10:45 AM EDT CBC WITH AUTO DIFFERENTIAL Routine 12/01/2024 10:45 AM EDT SARS COV2/INFLUENZA A/B AND RSV RNA QL NAAT Routine 12/01/2024 10:45 AM EDT XR CHEST 2 VIEWS Routine 12/01/2024 10:3 3 AM EDT US ABDOMEN LIMITED Routine 11/04/2024 11 :49 [...] Recently Relevant to Health Maintenance Results * Urinalysis w/reflex microscopic (12/01/2024 11:52 AM EDT) Color Urine Yellow [facility] Appearance Urine Clear [facility] PH 7.5 5.0 - 9.0 [facility] Glucose Urine UA Negative Negative mg/dL [facility] Urine Blood Negative Negative [facility] Specific [place] - Urine 1.020 1.005 - 1.025 [facility] Urine Protein Negative Neg-Trace mg/dL [facility] Urine Ketones Negative Negative mg/dL [facility] Nitrite Urine Negative Negative [facility] Leukocyte Esterase Urine Negative Negative [facility] 12/01/2024 11:5 2 AM EDT 12/01/2024 11:56 AM EDT Narrative [facility] - 12/01/2024 12:03 PM EDT [id number], Clean Catch Generic External Data Provider LAB URINE ORDERAB LES Final Result Performing Organization Address [facility] Co de Phone Number [facility] [address] [place] [phone] * SARS-CoV-2 RNA, Influenza A/B, and RSV RNA, Ql NAAT (12/01/2024 10:45 AM EDT) Influenza A PCR NEGATIVE Negative [facility] Influenza B PCR NEGATIVE Negative [facility] Resp Syncy Virus RNA Qual PCR NEGATIVE Negative [facility] SARS COV2 PCR NEGATIVE Negative [facility] Comment:All test results mus t [...] use by authorized laboratories.Testing performed on the [employer] GeneXpert utilizingreal-time RT-PCR.All SARS CoV2 and positive influenza A/B results arereported to [facility]. 12/01/2024 10:4 5 AM EDT 12/01/2024 10:51 AM EDT Generic External Data Provider LAB MICROBIOLOGY - GENERAL ORDERABLES Final Result Performing Organization Address [facility]/ZIP Co de Phone Number [facility] [address] [place] [phone] * (ABNORMAL) CBC auto differential (12/01/2024 10:45 AM EDT) White Blood Count 4.4(L) 4.8 - 10.8 X10*3/uL [facility] Red Blood Count 4.67 4.60 - 5.80 X10*6/uL [facility] Hemoglobin 14.8 14.0 - 18.0 g/dl [facility] Hematocrit 43.3 42.0 - 52.0 % [facility] Mean Corpuscular Volume 92.7 80.0 - 98.0 fL [facility] Mean Corpuscular Hemoglobin 31.7 27.0 - 33.0 pg [facility] Mean Corpuscular HGB Conc 34.2 31.0 - 36.0 g/dl [facility] Red Cell Distribution Width 12.4 11.0 - 16.0 % [facility] Platelet Count 171 160 - 400 X10*3/uL [facility] Mean Platelet Volume 11.3 9.4 - 12.4 fL [facility] Neutrophils Percent Auto 64.2 45 - 73 % [facility] Imm Gran Pct Auto 0.2 0.0 - 0.4 % [facility] Lymphocytes Percent Auto 26.0 20 - 40 % [facility] Monocytes Percent Auto 6.8 2 - 11 % [facility] Eosinophils Percent Auto 2.1 0 - 4 % [facility] Basophils Percent Auto 0.7 0 - 2 % [facility] NRBC Pct Auto 0.0 0.0 - 0.2 /100WBC [facility] Neutrophils Absolute Auto 2.8 2.0 - 8.3 x10*3/uL [facility] Imm Gran Abs Auto 0.01 0.00 - 0.03 X10*3/uL [facility] Lymphocytes Absolute Auto 1.1(L) 1.2 - 4.9 X10*3/uL [facility] Monocytes Absolute Auto 0.3 0.1 - 1.2 X10*3/uL [facility] Eosinophils Absolute Auto 0.1 0.0 - 0.4 X10*3/uL [facility] Basophils Absolute Auto 0.0 0.0 - 0.2 X10*3/uL [facility] NRBC Abs Auto 0.000 0.0 - 0.012 X10*3/uL [facility] 12/01/2024 10:4 5 AM EDT 12/01/2024 10:51 AM EDT us Generic External Data Provider LAB BLOOD ORDERAB LES Final Result Performing Organization Address City/[facility]/ZIP Co de Phone Number [facility] [address] [place], [place] [phone] * (ABNORMAL) Basic Metabolic Panel (12/01/2024 10:45 AM EDT) Sodium 140 135 - 145 mmol/L [facility] Potassium 4.2 3.3 - 5.1 mmol/L [facility] Chloride 102 96 - 108 mmol/L [facility] Carbon Dioxide 32(H) 22 - 29 mmol/L [facility] Anion Gap 10(L) 12 - 20 [facility] Urea Nitrogen (BUN) 22(H) 9 - 16 mg/dL [facility] Creatinine, Serum 1.15 0.5 - 1.4 mg/dL [facility] Creatinine Clr Calc Pharmacy 61.3 [facility] Comment:eGFR (calculated fro m the MDRD study equation) and eCrCl(calculated from the Cockcroft-Gault equation) are based ondifferent parameters and may not yield comparable results.If eCrCl result is absurd, please check patient'sheight/weight. Estimated Glomerular Filt Rate >60 [facility] Comment:Chronic Kidney Disea se: Estimated GFR < 60 mL/min/1.01c3Evjfqr Kidney Disease: Estimated GFR < 15 mL/min/1.73m2 Glucose 104 60 - 115 mg/dL [facility] Calcium 9.4 8.4 - 10.2 mg/dL [facility] 12/01/2024 10:4 5 AM EDT 12/01/2024 10:51 AM EDT us Generic External Data Provider LAB BLOOD ORDERAB LES Final Result [facility] [address] [place] [address] [phone] * XR Chest 2 Views (12/01/2024 10:33 AM EDT) Only the most recent of2 resultswithin the time period is included. Anatomical Region Laterality Modality Chest Radiographic Cecelia ging 12/01/2024 10:3 3 AM EDT Narrative 12/01/2024 10:46 AM EDT ? [facility] ?[address] ?[place] [address] ?XRay Report ? Signed ? Patient: John Fitzpatrick ?MR#: ?? [id number] ? : 1970 ?Acct:[id number] ? Age/Sex: 54 / M ?ADM Date: 12/01/24 ? Loc: HO.ED ? Attending Dr: ? Ordering Physician: Generic ED Physician ?? Date of Service: 12/01/24 ?? Procedure(s): XR chest 2V ?? Accession Number(s): [id number] ? cc: Generic ED Physician; [facility] ? EXAMINATION: ?? XR CHEST ? CLINICAL INFORMATION: ?? sob ? COMPARISON: ?? November 04, 2024. ? TECHNIQUE: ?? 2 views of the chest were obtained. ? FINDINGS: ?? Peribronchial pulmonary reticular pattern. ?? Subtle increased opacity in the medial right lower hemithorax. ?? No pleural effusion. No pneumothorax. ?? Heart silhouette size is normal. ?? Mild multilevel thoracic spondylosis. ? XR/XR chest 2V ?? IMPRESSION: ?? Questionable airspace disease, right middle lung lobe. ? Electronically signed by: ??Darryl Zaidi MD ??12/01/2024 10:43 AM ?? EDT RP ? Dictated By: ?Darryl Rey MD ? Signed By: ?<Electronically signed by Darryl Lynn MD in OV> ? 12/01/24 1043 ? DD/ 1033 ? TD/TT: 12/01/24 1040 ? Dining Room Host/Hostess: ? Procedure Note Marilyn, Image - 03/31/[address] [address] XRay Report Signed Patient: John Fitzpatrick AMR#: [id number] : 1970Acct:[id number] Age/Sex: 54 / MADM Date: 12/01/24 Loc: .ED Attending Dr: Ordering Physician: Generic ED Physician Date of Service: 12/01/24 Procedure(s): XR chest 2V Accession Number(s): [id number] cc: Generic ED Physician; [facility] EXAMINATION: XR CHEST CLINICAL INFORMATION: sob COMPARISON: November 04, 2024. TECHNIQUE: 2 views of the chest were obtained. FINDINGS: Peribronchial pulmonary reticular pattern. Subtle increased opacity in the medial right lower hemithorax. No pleural effusion. No pneumothorax. Heart silhouette size is normal. Mild multilevel thoracic spondylosis. XR/XR chest 2V IMPRESSION: Questionable airspace disease, right middle lung lobe. Electronically signed by: Darryl Zaidi MD 12/01/2024 10:43 AM EDT RP Dictated By: Darryl Rey MD Signed By: <Electronically signed by Darryl Lynn MDin OV> 12/01/24 1043 DD/ 1033 TD/TT: 12/01/24 1040 Dining Room Host/Hostess: [facility] External Provider IMG XR PROCEDURES Final Result * US Abdomen Limited (11/04/2024 11:49 AM EST) Anatomical Region Laterality Modality Abdomen Ultrasound 11/04/2024 11:4 9 AM EST Narrative 11/04/2024 12:32 PM EST ? [facility] ?[address] ?[place] [address] ? Ultrasound Report ? Signed ? Patient: Jr Ro,Jean ?MR#: ?? [id number] ? : 1970 ?Acct:[id number] ? Age/Sex: 54 / M ?ADM Date: 03/04/25 ? Loc: HO.ED ? Attending Dr: ? Ordering Physician: Lorena Banks DO ?? Date of Service: 11/04/24 ?? Procedure(s): US abdomen limited ?? Accession Number(s): [id number] ? cc: Lorena Banks DO; Haily Robb [employer] ? EXAMINATION: ?? US ABDOMEN LIMITED ? [...] DD/ 1149 ? TD/TT: 11/04/24 1202 ? Dining Room Host/Hostess: ? Procedure Note Leonard Sanders - 11/04/[address] [address] Ultrasound Report Signed Patient: John Fitzpatrick [facility]#: [id number] : 1970Acct:[id number] Age/Sex: 54 / MADM Date: 11/04/24 Loc: HO.ED Attending Dr: Ordering Physician: Lorena Banks DO Date of Service: 11/04/24 Procedure(s): US abdomen limited Accession Number(s): [id number] cc: Lorena Banks DO; [facility] EXAMINATION: US ABDOMEN LIMITED CLINICAL INFORMATION: [...] 11/04/24 1228 DD/ 1149 TD/TT: 11/04/24 1202 Dining Room Host/Hostess: [facility] External Provider IMG US PROCEDURES Final Result * XR Knee 4+ Views Right (10/10/2024 2:37 PM EST) Anatomical Region Laterality Modality Lower Extremities, Knee Right Radiogra phic Imaging 10/10/2024 2:37 PM EST Narrative 10/10/2024 3:12 PM EST ? [facility] ?[address] ?[place] [address] ?XRay Report ? Signed ? Patient: Jr Ro,Jean ?MR#: ?? [id number] ? : 1970 ?Acct:[id number] ? Age/Sex: 54 / M ?ADM Date: 10/10/24 ? Loc: HO.CARD ? Attending Dr: Pepper Balderrama MD ? Ordering Physician: Haily Robb ?? Date of Service: 10/10/24 ?? Procedure(s): XR knee RT 4V ?? Accession Number(s): [id number] ? cc: Haily Robb ? EXAMINATION: ?? [...] DD/ 1437 ? TD/TT: 10/10/24 1502 ? Dining Room Host/Hostess: ? Procedure Note Leonard Sanders - 10/10/[address] [address] XRay Report Signed Patient: John Fitzpatrick AMR#: [id number] : 1970Acct:[id number] Age/Sex: 54 / MADM Date: 10/10/24 Loc: YOGESH Attending Dr: Pepper Balderrama MD Ordering Physician: Haily Robb Date of Service: 10/10/24 Procedure(s): XR knee RT 4V Accession Number(s): [id number] cc: Haily RobbP EXAMINATION: XR KNEE, RIGHT CLINICAL INFORMATION: chronic [...] 10/10/24 1509 DD/ 1437 TD/TT: 10/10/24 1502 Dining Room Host/Hostess: Result [facility] [employer] IMG XR PROCEDURES Final Resul t * XR Knee 4+ Views Left (10/10/2024 2:37 PM EST) Anatomical Region Laterality Modality Lower Extremities, Knee Left Radiogra phic Imaging 10/10/2024 2:37 PM EST Narrative 10/10/2024 3:12 PM EST ? [facility] ?[address] ?[place] [address] ?XRay Report ? Signed ? Patient: John Fitzpatrick ?MR#: ?? [id number] ? : 1970 ?Acct:[id number] ? Age/Sex: 54 / M ?ADM Date: 10/10/24 ? Loc: HO.CARD ? Attending Dr: Pepper Balderrama MD ? Ordering Physician: Haily Robb ?? Date of Service: 10/10/24 ?? Procedure(s): XR knee LT 4V ?? Accession Number(s): [id number] ? cc: Clarisse,Haily [employer] ? EXAMINATION: ?? XR KNEE, LEFT ? [...] DD/ 1437 ? TD/TT: 10/10/24 1502 ? Dining Room Host/Hostess: ? Procedure Note Marilyn, Image - 10/10/2024 [place] [address] XRay Report Signed Patient: John Fitzpatrick AMR#: [id number] : 1970Acct:[id number] Age/Sex: 54 / MADM Date: 10/10/24 Loc: [facility] Attending Dr: Pepper Balderrama MD Ordering Physician: Haily Robb [employer] Date of Service: 10/10/24 Procedure(s): XR knee LT 4V Accession Number(s): [id number] cc: Haily Robb [facility] EXAMINATION: XR KNEE, LEFT CLINICAL INFORMATION: [...] 10/10/24 1510 DD/ 1437 TD/TT: 10/10/24 1502 Dining Room Host/Hostess: [facility] [employer] IMG XR PROCEDURES Final Resul t * Hemoglobin A1c (06/20/2024 3:05 PM EDT) Hemoglobin A1c 5.7 <6.0 % [facility] Comment:Hemoglobin A1C Refer ence Range Adults: 4.8 - 6.0 % Non diabetic: < 6.0 % Goal: < 7.0 %Additional Action Suggested: > 8.0 %Note: Hemoglobin A1c results are invalid for patients with abnormal amounts of HbF. Blood transfusions may impact the HbA1c concentration in the patient sample. Estimated Average Glucose 117 mg/dL [facility] Comment:eAG = Estimated ave rage glucose which is %A1C expressed asaverage glucose, using the formula of the G9X-CdpdulwBeqyhxq Glucose study (ADAG), Diabetes Care, Vol.31,#8,Apr. 2007 Blood Venous blood specimen / Unknown 06/20/2024 3:05 PM EDT 06/20/2024 4:21 PM EDT [facility] LAB BLOOD ORDERABLES Final Resul t [facility] [address] [place] [phone] * Lipid Panel, Standard (03/19/2024 9:34 AM EDT) Triglycerides 66 <150 mg/dL [facility] Comment:Desirable Triglyceri de: less than 150 mg/dLBorderline High Triglyceride 150-199 mg/dLHigh Triglyceride: 200-499 mg/dLVery High Triglyceride: greater than or equal to 5OO mg/dL Cholesterol 112 <200 mg/dL [facility] Comment:Desirable Cholestero l: less than 200 mg/dLBorderline High Cholesterol: 200-239 mg/dLHigh Cholesterol: greater than 239 mg/dL LDL Cholesterol Calculated 58 <100 mg/dL [facility] Comment:Desirable LDL: less than 100 mg/dLNear Optimal/Above Optimal LDL: 110- 129 mg/dLBorderline High LDL: 130-159 mg/dLHigh LDL: 160-189 mg/dLVery High LDL: greater than or equal to 190 mg/dL HDL Cholesterol 41 >40 mg/dL [facility] Comment:Desirable HDL: great er than 40 mg/dL Note: This HDL assay may give artificially low results in patients with liver disease. Blood Venous blood specimen / Unknown 03/19/2024 9:34 AM EDT 03/19/2024 11:12 AM EDT us Roxana Gotti DO LAB BLOOD ORDERABLES Final R esult Performing Organization Address [facility] Co de Phone Number [facility] [address] [place] [phone] * Hepatitis C Viral RNA, Quantitative, Real-Time PCR (03/22/2023 11:53 AM EDT) Hepatitis C Viral Load <15 NOT DETECTED NOT DETECTED IU/mL [facility] HCV Log PCR <1.18 NOT DETECTED NOT DETECTED Log IU/mL [facility] Comment:This test was perfor med using Real-Time Polymerase ChainReaction.Reportable Range: 15 IU/mL to 100,000,000 IU/mL(1.18 Log IU/mL to 8.00 Log IU/mL).The analytical performance characteristics of thisassay have been determined by [employer].The modifications have not been cleared or approved bythe FDA. This assay has been validated pursuant to theCLIA regulations and is used for clinical purposes.For more information on this test, go to:http://education.OpenRoute/faq/TRR98v9(This link is being provided for informational/educational purposes only.)THIS TEST WAS PERFORMED AT:[employer] [place] [phone] GONG MD Blood 03/22/2023 11:5 3 AM EDT 03/22/2023 1:32 PM EDT us Jessica Guillen [employer] LAB BLOOD ORDERABLES Final Res ult Performing Organization Address [facility] Co de Phone Number [facility] [address] [place] [phone] * HIV-1 RNA, Quantitative, Real-Time PCR (03/22/2023 11:53 AM EDT) HIV RNA PCR Qn Copies NOT DETECTED NOT DETECTED copies/mL [facility] HIV RNA PCR Qn Log Copies NOT DETECTED NOT DETECTED [facility] Comment:Result Units: Log co pies/mLThis test was performed using Real-Time Polymerase ChainReaction.Reportable Range: 20 copies/mL to 10,000,000 copies/mL(1.30 log copies/mL to 7.00 log copies/mL).THIS TEST WAS PERFORMED AT:[employer] [place] [phone] GONG MD Blood Venous blood specimen / Unknown 03/22/2023 11:53 AM EDT 03/22/2023 1:32 PM EDT Jessica Guillen [employer] LAB BLOOD ORDERABLES Final Res ult [facility] [address] [place] [address] [phone] from Last 3 Months or Most Recently Relevant to Health Maintenance [place] [address] [place] [address] [facility] [place] STAND ADULT Care Teams Acoustic Intelligence Specialist Relationship Specialty Start Date End Date FertileHaily FNP [address] [place] [address] PCP - General Family Medicine 05/01/22
--- OUTSIDE RECORDS SUMMARY | 2024-12-01 13:31 | XMS_ITS | Encounter Summary ---
Author Organization [employer] Address [address] [facility] [address] [facility] [address] 7t [place] [address] Care Team Providers Care Documentation Clerk Name Role Phone [facility] Primary Care Provider [phone] Reason for Visit * Reason Comments Med Refill Encounter Details Date Type Department Care Team ([facility] st Contact Info) Description 07/08/2024 Refill [facility] MEDICINE [address] [place], [place] [phone] [facility] 230 [place] [address] Mixed anxiety and depressive disorder Social History [...] 04/24/2025 1:00 PM EDT Office Visit [facility] ADULT DENTAL 230 [place] [address] Zachariah, Claudette 230 [place] [address] documented as of this encounter Goals Goal [...] documented as of this encounter Care Teams Documentation Clerk Relationship Specialty Start Date End Date Haily Robb FNP 230 [place] [address] PCP - General Family Medicine 05/01/22 documented as of this encounter
--- OUTSIDE RECORDS SUMMARY | 2024-12-01 13:31 | XMS_ITS | Encounter Summary ---
Author Organization [employer] Address [address] [facility] 7t [place] [address] Care Team Providers Care Reprographics Associate Name Role Phone Clarisse [facility] Primary Care Provider [phone] Reason for Visit * Reason Onset Date Comments Appointment Request 10/08/2023 Encounter Details Date Type Department Care Team ([facility] st Contact Info) Description 10/08/2023 Telephone [facility] MEDICINE 230 [place], [place] [phone] [place] [facility] 230 [place] [address] Appointment Request Social History Tobacco Use Types [...] with others, in a hotel, in a jail, living outside on the street, on a [...] gotten any better. Please contact pt at [phone] documented in this encounter Plan of Treatment Upcoming Encounters Date Type Department Care Team (Late st Contact Info) Description 04/24/2025 1:00 PM EDT Office Visit [facility] ADULT DENTAL 230 [place] [address] Zachariah, Claudette 230 [place] [address] documented as of this encounter Visit Diagnoses Not on filedocumented in this encounter Additional Health Concerns Assessment Noted Time PHQ-9 Depression Total Score: 0 08/15/20 23 3:52 PM EST documented as of this encounter Care Teams Reprographics Associate Relationship Specialty Start Date End Date Haily Robb FNP 230 [place] [address] PCP - General Family Medicine 05/01/22 documented as of this encounter
--- OUTSIDE RECORDS SUMMARY | 2024-12-01 13:31 | XMS_ITS | Encounter Summary ---
Author Organization [employer] Address [address] [facility] 7t [place] [address] Care Team Providers Care Operating Room Scheduler Name Role Phone Haily Robb [employer] PARKER Primary Care Provider [phone] Reason for Visit * Reason Comments Med Refill Encounter Details Date Type Department Care Team ([facility] st Contact Info) Description 10/29/2023 Refill [facility] 230 [place], [place] [phone] Name, MD Collins 230 [place] [address] Chronic neck pain Social History Tobacco Use [...] with others, in a hotel, in a [place] [facility] [place], living outside on the street, on a [...] the past 12 months, has t he [employer], gas, oil or water company threatened to [...] Description 04/24/2025 1:00 PM EDT Office Visit [facility] ADULT DENTAL [address] [place] [address] Zachariah, Claudette [address] [place] [address] documented as of this encounter Visit Diagnoses Diagnosis Chronic neck pain Cervicalgia documented in this encounter Additional Health Concerns Assessment Noted Time PHQ-9 Depression Total Score: 0 08/15/20 23 3:52 PM EST documented as of this encounter Care Teams Operating Room Scheduler Relationship Specialty Start Date End Date Haily Robb FNP [address] [place] [address] PCP - General Family Medicine 05/01/22 documented as of this encounter
--- OUTSIDE RECORDS SUMMARY | 2024-12-01 13:31 | XMS_ITS | Encounter Summary ---
Author Organization [employer] Address [address] [facility] [address] [facility] [address] 7t [place] [address] Care Team Providers Care Aluminum Boat Assembly Supervisor Name Role Phone Clarisse [facility] Primary Care Provider [phone] Reason for Visit * Reason Onset Date Comments Triage 09/20/2022 Encounter Details Date Type Department Care Team ([facility] st Contact Info) Description 09/20/2022 Telephone [facility] MEDICINE 230 [place], [place] [phone] [facility] 230 [place] [address] Triage Social History Tobacco Use Types Packs/Day [...] 09/20/2022 11:55 AM EST Triage call with Whitman Edger Machine Setter ID [id number] Pt reports an area on back that [...] No high acuity concerns reported by caller MALAGASY SPEAKER The caller accepted this outcome documented in this encounter Plan of Treatment Upcoming Encounters Date Type Department Care Team (Late st Contact Info) Description 04/24/2025 1:00 PM EDT Office Visit [facility] ADULT DENTAL 230 [place] [address] Zachariah, Claudette 230 [place] [address] documented as of this encounter Visit Diagnoses Not on filedocumented in this encounter Care Teams Aluminum Boat Assembly Supervisor Relationship Specialty Start Date End Date Haily Robb FNP 230 [place] [address] PCP - General Family Medicine 05/01/22 documented as of this encounter
--- OUTSIDE RECORDS SUMMARY | 2024-12-01 13:32 | XMS_ITS | Clinical Summary ---
Author Organization [facility] Address [address] [place] [address] Phone Care Team Providers Care House Registry Rn Name Role Phone [facility] Primary Care Provider [phone] Medications polyethylene glycol (Golytely) 236-22.74-6.74 -5.86 gram [...] Phone Billing Address Personal/Family Self 1970 [address] [facility] [address] [place] [id number] MEDICAID - [place] Care Teams House Registry Rn Relationship Specialty Start Date End Date Haily Robb [address] [phone] PCP - General 05/20/24
--- OUTSIDE RECORDS SUMMARY | 2024-12-01 13:32 | XMS_ITS | Encounter Summary ---
Author Organization [employer] Address [address] [facility] [facility] [address] 7t [place] [address] Care Team Providers Care De Icer Kit Assembler Name Role Phone [place] Primary Care Provider [phone] Reason for Visit * Reason Comments Med Refill Encounter Details Date Type Department Care Team ([facility] st Contact Info) Description 08/28/2024 Refill [facility] MEDICINE 230 [place], [place] [phone] [facility] 230 [place] [address] Mixed anxiety and depressive disorder Social History [...] Description 04/24/2025 1:00 PM EDT Office Visit [facility] ADULT DENTAL 230 [place] [address] Zachariah, Claudette 230 [place] [address] documented as of this encounter Goals Goal [...] documented as of this encounter Care Teams De Icer Kit Assembler Relationship Specialty Start Date End Date Haily Robb FNP 230 [place] [address] PCP - General Family Medicine 05/01/22 documented as of this encounter
--- OUTSIDE RECORDS SUMMARY | 2024-12-01 13:32 | XMS_ITS | Encounter Summary ---
Author Organization [employer] Address [address] 7t [place] [address] Care Team Providers Care Camera Assembler Name Role Phone Haily Robb RADIOLOGY TECHNICIAN Primary Care Provider [phone] Reason for Visit * Reason Comments Med Refill Encounter Details Date Type Department Care Team (Late st Contact Info) Description 04/02/2023 Refill [facility] MEDICINE 230 [place] [address] Juanjose Barton MD 230 [place] [address] Chronic pruritus Social History Tobacco Use Types [...] Description 04/24/2025 1:00 PM EDT Office Visit [facility] ADULT DENTAL 230 [place] [address] Claudette Soni 230 [place] [address] documented as of this encounter Visit Diagnoses Diagnosis Chronic pruritus documented in this encounter Additional Health Concerns Assessment Noted Time PHQ-9 Depression Total Score: 0 01/26/20 23 3:38 PM EDT documented as of this encounter Care Teams Camera Assembler Relationship Specialty Start Date End Date Haily Robb FNP 230 [place] [address] PCP - General Family Medicine 05/01/22 documented as of this encounter
--- OUTSIDE RECORDS SUMMARY | 2024-12-01 13:32 | XMS_ITS | Encounter Summary ---
Author Organization [employer] Address [address] 7t [place] [address] Care Team Providers Care Staff Nuclear Medicine Technologist Name Role Phone Haily Robb BOTTLING ROOM WORKER Primary Care Provider [phone] Reason for Visit * Reason Comments Med Refill Encounter Details Date Type Department Care Team (Late st Contact Info) Description 04/02/[address] [facility] 230 [place] [address] Hollis Rutledge MD 230 [place] [address] Social History Tobacco Use Types Packs/Day Years [...] PM EDT Office Visit [facility] ADULT DENTAL [address] [place] [address] Claudette Soni [address] [place] [address] documented as of this encounter Visit Diagnoses Not on filedocumented in this encounter Additional Health Concerns Assessment Noted Time PHQ-9 Depression Total Score: 0 01/26/20 23 3:38 PM EDT documented as of this encounter Care Teams Staff Nuclear Medicine Technologist Relationship Specialty Start Date End Date Haily Robb FNP 230 [place] [address] PCP - General Family Medicine 05/01/22 documented as of this encounter
--- OUTSIDE RECORDS SUMMARY | 2024-12-01 13:32 | XMS_ITS | Encounter Summary ---
Author Organization [employer] Address [address] [facility] 7t [place] [address] Care Team Providers Care Estate Planner Name Role Phone [place] [facility] Primary Care Provider [phone] Reason for Visit * Reason Onset Date Comments Med Refill 12/13/2023 Encounter Details Date Type Department Care Team ([facility] st Contact Info) Description 12/13/2023 Telephone [facility] MEDICINE 230 [place], [place] [phone] [facility] 230 [place] [address] Med Refill Social History Tobacco Use Types [...] the past 12 months, has t he [employer], gas, oil or water company threatened to [...] 10:24 AM EDT Medication was sent to [facility] on 11/09/23 with 2 refills. * Telephone Encounter - Christine Taylor - 12/13/2023 10:19 AM EDT TC from pt requesting medication refill. Medications needing refill : melatonin 5 MG tablet To be sent to: [facility] - [place], [place] - [address] [facility] documented in this encounter Plan of Treatment Upcoming Encounters Date Type Department Care Team (Late st Contact Info) Description 04/24/2025 1:00 PM EDT Office Visit [facility] ADULT DENTAL 230 [place] [address] Claudette Soni 230 [place] [address] documented as of this encounter Visit Diagnoses Not on filedocumented in this encounter Additional Health Concerns Assessment Noted Time PHQ-9 Depression Total Score: 0 08/15/20 23 3:52 PM EST documented as of this encounter Care Teams Estate Planner Relationship Specialty Start Date End Date Haily Robb FNP [address] [place] [address] PCP - General Family Medicine 05/01/22 documented as of this encounter
--- OUTSIDE RECORDS SUMMARY | 2024-12-01 13:32 | XMS_ITS | Encounter Summary ---
Author Organization [employer] Address [address] 7[address] [place] [address] Care Team Providers Care Hydraulic Technician Name Role Phone Clarisse [facility] Primary Care Provider [phone] Reason for Visit * Reason Onset Date Comments Nurse Triage 02/16/2023 Encounter Details Date Type Department Care Team ([facility] st Contact Info) Description 02/16/[address] [facility] MEDICINE 230 [place], [place] [phone] [facility] 230 [place] [address] Nurse Triage Social History Tobacco Use Types [...] - 02/23/2023 2:49 PM EDT T/C to [id number] through W[employer] interpreters id - [id number] for below message, pt. Verbally agreed and understood. * Telephone Encounter - Angela Whitman LPN - 02/16/2023 2:48 PM EDT Triage call returned to patient via [employer] Pan Tank Operator [id number]. Patient called with concerns of Left eye burning and tearing at times with blurred vision. No irritant or object in eye at this time. Patient reports that he was seen some time ago in [facility] [place] and was given order to obtain eye drops for dry eye. He is angry that he had to pay for them out of pocket and that they did not help. Patient requesting specifically a referral and declines appts. in [facility] or with Team providers later in [...] suggested disposition Override Notes: Patient seen in [facility] [place] and was told to use eye drops several months ago. Patient requesting only referral to Psych Tech. Video visit not offered Positive Triage Question: [...] 04/24/2025 1:00 PM EDT Office Visit [facility] ADULT DENTAL 230 [place] [address] Kailash Soniaris [address] [place] [address] documented as of this encounter Visit Diagnoses Not on filedocumented in this encounter Additional Health Concerns Assessment Noted Time PHQ-9 Depression Total Score: 0 01/26/20 23 3:38 PM EDT documented as of this encounter Care Teams Hydraulic Technician Relationship Specialty Start Date End Date Haily Robb FNP 230 [place] [address] PCP - General Family Medicine 05/01/22 documented as of this encounter
--- OUTSIDE RECORDS SUMMARY | 2024-12-01 13:32 | XMS_ITS | Encounter Summary ---
Author Organization [employer] Address [address] 7t [place] [address] Care Team Providers Care Tax Compliance Manager Name Role Phone Clarisse Haily CORNELL Primary Care Provider [phone] Encounter Details Date Type Department Care Team (Latest Contact Info) Description 06/16/2020 Abstract [facility] CONVERSIONS Dental, Provider, DDS Social History Tobacco [...] 04/24/2025 1:00 PM EDT Office Visit [facility] ADULT DENTAL 230 [place] [address] Zachariah, Claudette 230 [place] [address] documented as of this encounter Visit Diagnoses Not on filedocumented in this encounter Care Teams Tax Compliance Manager Relationship Specialty Start Date End Date Haily Robb FNP 230 [place] [address] PCP - General Family Medicine 05/01/22 documented as of this encounter
--- OUTSIDE RECORDS SUMMARY | 2024-12-01 13:32 | XMS_ITS | Encounter Summary ---
Author Organization [employer] Address [address] 7t [place] [address] Care Team Providers Care Transport Pilot Name Role Phone Clarisse [facility] Primary Care Provider [phone] Reason for Visit * Reason Onset Date Comments Results 03/16/2023 Encounter Details Date Type Department Care Team ([facility] st Contact Info) Description 03/16/2023 Telephone [facility] MEDICINE 230 [place], [place] [phone] [facility] 230 [place] [address] Results Social History Tobacco Use Types Packs/Day [...] 03/20/2023 4:06 PM EDT Return T/C to [phone] for below message, No answer. LVM to call back on [phone]. * Telephone Encounter - Kelli Boucher - 03/16/2023 2:04 PM EDT Tc from pt requesting a call in regards to results to recent lab orders. Please contact pt at [phone] (Chinese speaker) documented in this encounter Plan of Treatment Upcoming Encounters Date Type Department Care Team (Late st Contact Info) Description 04/24/2025 1:00 PM EDT Office Visit [facility] ADULT DENTAL 230 [place], [place] [phone] ZachariahClaudette 230 [place] [address] documented as of this encounter Visit Diagnoses Not on filedocumented in this encounter Additional Health Concerns Assessment Noted Time PHQ-9 Depression Total Score: 0 01/26/20 23 3:38 PM EDT documented as of this encounter Care Teams Transport Pilot Relationship Specialty Start Date End Date Haily Robb FNP 230 [place] [address] PCP - General Family Medicine 05/01/22 documented as of this encounter
--- OUTSIDE RECORDS SUMMARY | 2024-12-01 13:32 | XMS_ITS | Encounter Summary ---
Author Organization [employer] Address [address] 7t [place] [address] Care Team Providers Care Mds Coordinator Name Role Phone [place] [facility] Primary Care Provider [phone] Reason for Visit * Reason Comments Med Refill Encounter Details Date Type Department Care Team (Late Contact Info) Description 01/01/2023 Refill [facility] 230 [place], [place] [phone] [facility] 230 [place] [address] Chronic sinusitis, unspecified location Social History Tobacco [...] 04/24/2025 1:00 PM EDT Office Visit [facility] ADULT DENTAL 230 [place] [address] Claudette Snoi [address] [place] [address] documented as of this encounter Visit Diagnoses Diagnosis Chronic sinusitis, unspecified location documented in this encounter Additional Health Concerns Assessment Noted Time PHQ-9 Depression Total Score: 0 11/03/19 23 10:32 AM EST documented as of this encounter Care Teams Mds Coordinator Relationship Specialty Start Date End Date Haily Robb FNP 230 [place] [address] PCP - General Family Medicine 05/01/22 documented as of this encounter
--- OUTSIDE RECORDS SUMMARY | 2024-12-01 13:32 | XMS_ITS | Encounter Summary ---
Author Organization [employer] Address [address] [facility] [address] [facility] [address] [facility] [address] 7t [place] [address] Care Team Providers Care Roving Weight Gauger Name Role Phone [facility] Primary Care Provider [phone] Reason for Visit * Reason Onset Date Comments Medication Question 01/16/2023 Encounter Details Date Type Department Care Team ([facility] st Contact Info) Description 01/16/2023 Telephone [facility] MEDICINE [address] [place], [place] [phone] [facility] 230 [place] [address] Medication Question Social History Tobacco Use Types [...] Description 04/24/2025 1:00 PM EDT Office Visit [facility] ADULT DENTAL 230 [place], [place] [phone] Zachariah, Claudette 230 [place], [place] [phone] documented as of this encounter Visit Diagnoses Not on filedocumented in this encounter Additional Health Concerns Assessment Noted Time PHQ-9 Depression Total Score: 0 11/03/19 23 10:32 AM EST documented as of this encounter Care Teams Roving Weight Gauger Relationship Specialty Start Date End Date Haily Robb FNP 230 [place] [address] PCP - General Family Medicine 05/01/22 documented as of this encounter
--- OUTSIDE RECORDS SUMMARY | 2024-12-01 13:32 | XMS_ITS | Encounter Summary ---
Author Organization [email or web address] Address [address] [facility] 7t [place] [address] Care Team Providers Care Mount Loader Name Role Phone Clarisse [facility] Primary Care Provider [phone] Reason for Visit * Reason Onset Date Comments Nurse Triage 02/11/2024 Encounter Details Date Type Department Care Team ([facility] st Contact Info) Description 02/11/2024 Telephone [facility] MEDICINE 230 [place], [place] [phone] [facility] 230 [place] [address] Nurse Triage Social History Tobacco Use Types [...] the past 12 months, has t he [employer], gas, oil or water company threatened to [...] EDT Triage call returned to patient with [place] twister frame tender [id number]. Patient reports ongoing issue withleft eye and [...] and she would like him referred to [facility]. No diagnosis in chart.Advised of [facility] for evaluation today. [...] Reason: Other Override Notes: Being treated with employment service specialist with appt coming in 03/11/24 Video [...] involuntary movements The caller accepted this outcome Azeri speaker documented in this encounter Plan of Treatment Upcoming Encounters Date Type Department Care Team (Late st Contact Info) Description 04/24/2025 1:00 PM EDT Office Visit [facility] ADULT DENTAL [address] [place] [address] Zachariah, Claudette [address] [place] [address] documented as of this encounter Goals Goal Patient Goal Type Associated Problems Recent Progress Patient-Stated? Author Patient will adhere to medication regimen General No Mary Moreland documented as of this encounter Visit Diagnoses Not on filedocumented in this encounter Additional Health Concerns Assessment Noted Time PHQ-9 Depression Total Score: 0 08/15/20 23 3:52 PM EST documented as of this encounter Care Teams Mount Loader Relationship Specialty Start Date End Date Haily Robb FNP [address] [place] [address] PCP - General Family Medicine 05/01/22 documented as of this encounter
--- OUTSIDE RECORDS SUMMARY | 2024-12-01 13:32 | XMS_ITS | Encounter Summary ---
Author Organization [employer] Address [address] 7t [place] [address] Care Team Providers Care Cake Wringer Name Role Phone Clarisse Haily CORNELL Primary Care Provider [phone] Encounter Details Date Type Department Care Team (Latest Contact Info) Description 06/01/2022 Abstract [facility] CONVERSIONS Dental, Provider, DDS Social History [...] Description 04/24/2025 1:00 PM EDT Office Visit [facility] ADULT DENTAL 230 [place] [address] Zachariah, Claudette [address] [place] [address] documented as of this encounter Visit Diagnoses Not on filedocumented in this encounter Care Teams Cake Wringer Relationship Specialty Start Date End Date Haily Robb FNP 230 [place] [address] PCP - General Family Medicine 05/01/22 documented as of this encounter
--- OUTSIDE RECORDS SUMMARY | 2024-12-01 13:32 | XMS_ITS | Encounter Summary ---
Author Organization [employer] Address [address] [place] [address] Care Team Providers Care Fishing Vessel Deckhand Name Role Phone Clarisse [facility] Primary Care Provider [phone] Reason for Visit * Reason Onset Date Comments triage 11/10/2022 Encounter Details Date Type Department Care Team ([facility] st Contact Info) Description 11/10/2022 Telephone [facility] MEDICINE [address], [place] [phone] [facility] [address] [place] [address] triage Social History Tobacco Use Types Packs/Day [...] in office. Pt agrees to come into [facility] for exam. Pt also advised [...] question The caller accepted this outcome speaks upper sorbian documented in this encounter Plan of Treatment Upcoming Encounters Date Type Department Care Team (Late st Contact Info) Description 04/24/2025 1:00 PM EDT Office Visit [facility] ADULT DENTAL [address] [place] [address] Zachariah, Claudette [address] [place] [phone] documented as of this encounter Visit Diagnoses Not on filedocumented in this encounter Additional Health Concerns Assessment Noted Time PHQ-9 Depression Total Score: 0 11/03/19 10:32 AM EST documented as of this encounter Care Teams Fishing Vessel Deckhand Relationship Specialty Start Date End Date Haily Robb FNP [address] [place] [phone] PCP - General Family Medicine 05/01/22 documented as of this encounter
--- OUTSIDE RECORDS SUMMARY | 2024-12-01 13:32 | XMS_ITS | Encounter Summary ---
Author Organization [employer] Address [address] [place] [address] Care Team Providers Care Pipeline Integrity Engineer Name Role Phone Clarisse Haily [employer]AN ENGINE ENGINEER Primary Care Provider [phone] Encounter Details Date Type Department Care Team ([facility] st Contact Info) Description 12/01/2024 Orders Only GENERIC EXTERNAL DATA DEPARTMENT Provider, Generic External Data Social History Tobacco Use Types Packs/Day Years [...] Office Visit [facility] ADULT DENTAL [address] [place] [address] Zachariah, Claudette [address] [place] [address] documented as of this encounter Goals Goal Patient Goal Type Associated Problems Recent Progress Patient-Stated? Author Patient will adhere to medication regimen General Mary Chauhan documented as of this encounter Procedures Procedure Name Priority Date/Time Associated Diagnosis Comments URINALYSIS WITH REFLEX MICROSCOPIC Routine 12/01/2024 11:52 AM EDT SARS COV2/INFLUENZA A/B AND RSV RNA QL NAAT Routine 12/01/2024 10:45 AM EDT CBC WITH AUTO DIFFERENTIAL Routine 12/01/2024 10:45 AM EDT BASIC METABOLIC PANEL Routine 12/01/2024 10:45 AM EDT documented in this encounter Results * Urinalysis w/reflex microscopic (12/01/2024 11:52 AM EDT) [facility] Signature Color Urine Yellow [facility] Appearance Urine Clear [facility] PH 7.5 5.0 - 9.0 [facility] Glucose Urine UA Negative Negative mg/dL [facility] Urine Blood Negative Negative [facility] Specific [place] - Urine 1.020 1.005 - 1.025 [facility] Urine Protein Negative Neg-Trace mg/dL [facility] Urine Ketones Negative Negative mg/dL [facility] Nitrite Urine Negative Negative [facility] Leukocyte Esterase Urine Negative Negative [facility] 12/01/2024 11:5 2 AM EDT 12/01/2024 11:56 AM EDT Narrative [facility] - 12/01/2024 12:03 PM EDT [id number], Clean Catch us Generic External Data Provider LAB URINE ORDERAB LES Final Result [facility] [address] [place] [phone] * SARS-CoV-2 RNA, Influenza A/B, and RSV RNA, Ql NAAT (12/01/2024 10:45 AM EDT) Influenza A PCR NEGATIVE Negative [facility] Influenza B PCR NEGATIVE Negative [facility] Resp Syncy Virus RNA Qual PCR NEGATIVE Negative [facility] SARS COV2 PCR NEGATIVE Negative [facility] Comment:All test results mus t be [...] use by authorized laboratories.Testing performed on the [employer] GeneXpert utilizingreal-time RT-PCR.All SARS CoV2 and positive influenza A/B results arereported to [facility]. 12/01/2024 10:4 5 AM EDT 12/01/2024 10:51 AM EDT us Generic External Data Provider LAB MICROBIOLOGY - GENERAL ORDERABLES Final Result [facility] [address] [place] [phone] * (ABNORMAL) Basic Metabolic Panel (12/01/2024 10:45 AM EDT) Sodium 140 135 - 145 mmol/L [facility] Potassium 4.2 3.3 - 5.1 mmol/L [facility] Chloride 102 96 - 108 mmol/L [facility] Carbon Dioxide 32(H) 22 - 29 mmol/L [facility] Anion Gap 10(L) 12 - 20 [facility] Urea Nitrogen (BUN) 22(H) 9 - 16 mg/dL [facility] Creatinine, Serum 1.15 0.5 - 1.4 mg/dL [facility] Creatinine Clr Calc Pharmacy 61.3 [facility] Comment:eGFR (calculated fro m the MDRD study equation) and eCrCl(calculated from the Cockcroft-Gault equation) are based ondifferent parameters and may not yield comparable results.If eCrCl result is absurd, please check patient'sheight/weight. Estimated Glomerular Filt Rate >60 [facility] Comment:Chronic Kidney Disea se: Estimated GFR < 60 mL/min/1.74a3Svoxad Kidney Disease: Estimated GFR < 15 mL/min/1.73m2 Glucose 104 60 - 115 mg/dL [facility] Calcium 9.4 8.4 - 10.2 mg/dL [facility] 12/01/2024 10:4 5 AM EDT 12/01/2024 10:51 AM EDT us Generic External Data Provider LAB BLOOD ORDERAB LES Final Result Performing Organization Address City/[facility]/ZIP Co de Phone Number [facility] [address] [place] [phone] * (ABNORMAL) CBC auto differential (12/01/2024 10:45 AM EDT) White Blood Count 4.4(L) 4.8 - 10.8 X10*3/uL [facility] Red Blood Count 4.67 4.60 - 5.80 X10*6/uL [facility] Hemoglobin 14.8 14.0 - 18.0 g/dl [facility] Hematocrit 43.3 42.0 - 52.0 % [facility] Mean Corpuscular Volume 92.7 80.0 - 98.0 fL [facility] Mean Corpuscular Hemoglobin 31.7 27.0 - 33.0 pg [facility] Mean Corpuscular HGB Conc 34.2 31.0 - 36.0 g/dl [facility] Red Cell Distribution Width 12.4 11.0 - 16.0 % [facility] Platelet Count 171 160 - 400 X10*3/uL [facility] Mean Platelet Volume 11.3 9.4 - 12.4 fL [facility] Neutrophils Percent Auto 64.2 45 - 73 % [facility] Imm Gran Pct Auto 0.2 0.0 - 0.4 % [facility] Lymphocytes Percent Auto 26.0 20 - 40 % [facility] Monocytes Percent Auto 6.8 2 - 11 % [facility] Eosinophils Percent Auto 2.1 0 - 4 % [facility] Basophils Percent Auto 0.7 0 - 2 % [facility] NRBC Pct Auto 0.0 0.0 - 0.2 /100WBC [facility] Neutrophils Absolute Auto 2.8 2.0 - 8.3 x10*3/uL [facility] Imm Gran Abs Auto 0.01 0.00 - 0.03 X10*3/uL [facility] Lymphocytes Absolute Auto 1.1(L) 1.2 - 4.9 X10*3/uL [facility] Monocytes Absolute Auto 0.3 0.1 - 1.2 X10*3/uL [facility] Eosinophils Absolute Auto 0.1 0.0 - 0.4 X10*3/uL [facility] Basophils Absolute Auto 0.0 0.0 - 0.2 X10*3/uL [facility] NRBC Abs Auto 0.000 0.0 - 0.012 X10*3/uL [facility] 12/01/2024 10:4 5 AM EDT 12/01/2024 10:51 AM EDT us Generic External Data Provider LAB BLOOD ORDERAB LES Final Result [facility] [address] [place] [phone] documented in this encounter Visit Diagnoses Not on filedocumented in this encounter Additional Health Concerns Assessment Noted Time PHQ-9 Depression Total Score: 0 10/10/19 25 1:23 PM EST documented as of this encounter Care Teams Pipeline Integrity Engineer Relationship Specialty Start Date End Date Haily Robb FNP [address] [place] [phone] PCP - General Family Medicine 05/01/22 documented as of this encounter
[2024-12-01 14:17] VITALS: BP 106/65; PULSE 61; RESP 14; O2SAT 99
[2024-12-01] MEDS: iohexoL 350 MG/ML 100 ML INFUS..BTL 85 ML IV (14:48)
[2024-12-01 16:04] VITALS: BP 115/52; PULSE 89; RESP 16; TEMP 36.7; O2SAT 99
[2024-12-04 03:23] LABS: TS Negative Control Passed; TS Panel A 18; TS Panel B 0; TS Positive Control Passed; TSpotTB Positive (Negative)
== END 2024-12-01 16:05 | disposition home or self-care (01) ==
PROVIDERS: Emergency Provider Emergency Medicine; PCP Registered Nurse
DX: R10.9 Unspecified abdominal pain (principal); R91.1 Solitary pulmonary nodule; R30.0 Dysuria; R33.9 Retention of urine, unspecified; R42 Dizziness and giddiness; R06.02 Shortness of breath; F17.210 Nicotine dependence, cigarettes, uncomplicated; Z79.899 Other long term (current) drug therapy; Z03.818 Encounter for observation for suspected exposure to other biological agents ruled out
CPT/HCPCS: 0241U; 36415; 71046; 71260; 74177; 80048; 81003; 85025; 86481; 99283; 99284; Q9967

== ENCOUNTER → 2024-12-01 10:33 | Outpatient (BNV) | payer MEDICAID, SELFPAY | PROVIDERS: PCP Registered Nurse; Visit Provider Radiology Diagnostic Radiology | DX: R91.8 Other nonspecific abnormal finding of lung field (principal); R06.02 Shortness of breath | CPT/HCPCS: 71046; 71260; 74177 ==

== ENCOUNTER 2024-12-12 12:27 | Emergency (ER) | payer MEDICAID, SELFPAY ==
[2024-12-12 12:40] VITALS: BP 110/76; PULSE 83; RESP 20; TEMP 37; O2SAT 96; BMI 22.2
--- NOTE | 2024-12-12 12:41 | ED.ABDPAIN ---
HPI - Abdominal Pain General Chief Complaint: Abdominal Pain Stated Complaint: l side abd pain Time Seen by Provider: 12/12/24 16:00 History of Present Illness ED Provider: Jamie ANN narrative: The patient is a 54-year-old male says that he has been having intermittent left lower quadrant abdominal pain for about a week. He says he has had similar pains in the past. It does not seem as though this pain is associated with any nausea or vomiting or any change in his bowel habits. The pain may be worse with movement. The patient is a very vague historian. He has had no fever, sweats, chills. No chest pain. No shortness of breath. No cough. No urinary discomfort. The patient says that he has a liver problems and he is worried that this pain in his left lower abdomen might be related to his liver problems. Related Data Home Medications ?Medication ?Instructions ?Recorded ?Confirmed cholecalciferol (vitamin D3) 50 50 mcg PO DAILY 06/30/20 09/19/24 mcg (2,000 unit) capsule (Vitamin D3) clonazepam 1 mg tablet 1 mg PO DAILY 06/30/20 09/19/24 fluticasone propionate 50 1 spray intranasal DAILY 06/30/20 09/19/24 mcg/actuation nasal spray,suspension (Flonase Allergy Relief) hydroxyzine HCl 25 mg tablet 25 mg PO TID PRN Itching 06/30/20 09/19/24 methadone 40 mg soluble tablet 36 mg PO DAILY 06/30/20 09/19/24 fluoxetine 10 mg capsule 20 mg PO QAM 10/20/21 09/19/24 mirtazapine 15 mg tablet 15 mg PO BEDTIME 10/20/21 09/19/24 trazodone 50 mg tablet 25 mg PO BEDTIME 10/20/21 09/19/24 ascorbic acid (vitamin C) 500 mg 500 mg PO DAILY 12/16/21 09/19/24 tablet (Vitamin C) ferrous sulfate 325 mg (65 mg 325 mg PO DAILY 12/16/21 09/19/24 iron) tablet (FeroSul) lidocaine 5 % topical patch 0 patch topical 12/16/21 09/19/24 (Lidoderm) sennosides 8.6 mg tablet (senna) 17.2 mg PO DAILY 12/16/21 09/19/24 cetirizine 10 mg tablet 10 mg PO DAILY PRN congestion 05/18/22 09/19/24 nicotine 14 mg/24 hr daily 0 patch topical 06/22/22 09/19/24 transdermal patch albuterol sulfate 90 mcg/actuation 2 puff inhalation Q4H PRN wheezing 01/12/23 09/19/24 aerosol inhaler (Ventolin HFA) clonazepam 0.5 mg tablet 1 mg PO BID PRN 01/12/23 09/19/24 ibuprofen 600 mg tablet 600 mg PO Q8H PRN headache 01/12/23 09/19/24 melatonin 5 mg tablet 5 - 10 mg PO BEDTIME PRN 01/12/23 09/19/24 multivitamin 1 tab PO QAM 01/12/23 09/19/24 nicotine (polacrilex) 2 mg buccal 2 mg PO 01/12/23 09/19/24 lozenge rosuvastatin 10 mg tablet 10 mg PO QAM 01/12/23 09/19/24 simethicone 125 mg capsule (Gas 125 mg PO BEDTIME 01/12/23 09/19/24 Relief Extra Strength) omeprazole 40 mg capsule,delayed 40 mg PO QAM 09/19/24 09/19/24 release Previous Rx's ?Medication ?Instructions ?Recorded docusate sodium 100 mg capsule 200 mg (2 x 100 mg) PO BEDTIME 30 06/03/20 (Colace) days #60 caps bisacodyl 5 mg tablet,delayed 10 mg (2 x 5 mg) PO ONCE 05/18/22 release (Dulcolax (bisacodyl)) colonoscopy prep 1 day #2 tabs polyethylene glycol 3350 17 238 g PO ONCE 1 day #238 grams 05/18/22 gram/dose oral powder (Miralax) phenylephrine HCl 10 mg tablet 10 mg PO Q6H PRN nasal congestion 12/17/23 (Sudafed PE) #10 tabs diazepam 5 mg tablet (Valium) 5 mg PO BID PRN muscle spasm #10 07/24/24 tabs furosemide 20 mg tablet (Lasix) 20 mg PO DAILY #90 tabs 08/29/24 needle (disp) 18 G 18 gauge x 1 #30 ea 09/29/24 (BD Regular Bevel [place]) needle (disp) 22 G 22 gauge x 1 #30 ea 10/24/24 sucralfate 100 mg/mL oral 10 ml PO BID 14 days #280 mL 11/04/24 suspension (Carafate) syringe (disposable) 3 mL (BD #25 ea 11/27/24 Luer-Vira Syringe) tamsulosin 0.4 mg capsule 0.8 mg (2 x 0.4 mg) PO BEDTIME 90 11/28/24 days #180 caps testosterone cypionate 200 mg/mL 200 mg IM Q2W 28 days #2 mL 11/28/24 intramuscular oil ibuprofen 400 mg tablet 400 mg PO Q6H PRN pain #14 tabs 12/12/24 Allergies Allergy/AdvReac Type Severity Reaction Status Date / Time SEAFOOD Allergy Severe ANAPHYLAXIS Uncoded 12/12/24 12:45 shellfish Allergy Severe Anaphylaxis Uncoded 12/12/24 12:45 Review of Systems Review of Systems Yes all other systems are reviewed and are negative PMFSH Past Medical History Medical History Anemia Hx of substance abuse Smoker History of Helicobacter pylori infection Spinal pain Hypogonadism Erectile dysfunction Hx: UTI (urinary tract infection) BPH (benign prostatic hyperplasia) Hx of hepatitis C GERD (gastroesophageal reflux disease) Anxiety and depression HTN (hypertension) Murmur Surgical History Hx of cystoscopy Family History Family History Mother Diabetes Social History Social History Alcohol intake: former Patient Tobacco Use Status: Current everyday Tobacco user Smoked in Last 30 Days: No Use of substances other than those prescribed or required for medical reasons: No Substance Use Type: Crack/Cocaine and Heroin Advance Directives: No Advance Directives Information Provided: No Current occupational status: unemployed Physical Exam ED Vital Signs: Vital Signs - 24 hr 12/12/24 12:40 12/12/24 16:29 12/12/24 16:37 Temperature 98.6 F 98.9 F 98.9 F Pulse Rate 83 74 74 Respiratory Rate 20 18 18 Blood Pressure 110/76 111/77 111/77 Pulse Oximetry 96 100 100 Oxygen Delivery Method Room Air Room Air Room Air BMI result Body Mass Index 22.2 Const Other: The patient is a slim 54-year-old male who was awake and alert and does not appear ill or in distress at all. He moves around easily. Orientation/consciousness: patient oriented x3 HENMT Other: Face is symmetrical, mucous membranes moist. Eyes General: appearance normal, both eyes and all related structures Sclerae: sclerae normal EOM: EOMs intact bilaterally Neck Neck: Yes normal visual inspection, Yes full ROM and Yes no lymphadenopathy Resp Effort & Inspection: normal respiratory effort Auscultation: clear to auscultation bilaterally Cardio Rate: regular rate Rhythm: regular rhythm Heart sounds: S1 normal heart sound present and S2 normal heart sound present GI Other: The abdomen was nondistended. The patient really could not relax his abdominal wall muscles. He reported tenderness with palpation in the left lower quadrant but not elsewhere in the abdomen. I did not appreciate any defects in the abdominal wall. Other: The patient is a circumcised male with normal external genitalia. Testicles are non tender. The scrotum is not swollen. I do not appreciate any hernias in the inguinal canals. Skin General skin exam: no rashes or lesions noted Neuro General: patient oriented x3, gait normal, tone normal, moves all extremities, no focal motor deficits and CN's II-XI intact bilaterally Extrem General: Yes no pedal edema and Yes no calf tenderness Course Course Course Narrative: This is an RME performed by Kings Escobra CNP: Additional HPI, ROS, PE not included below will be deferred to primary provider. Patient is a 54-year-old male who presents emergency department for left lower quadrant abdominal pain, onset 1 week ago, intermittent in nature. Denies nausea, vomiting, diarrhea, constipation, genitourinary symptoms. Plan: Serum labs, urinalysis Medical Decision Making Medical Decision Making MDM Narrative: The patient reports that he is here for intermittent left lower quadrant abdominal pain that he has experienced for the last week. He has a very poor historian and it is difficult to get a linear history. My overall impression is that the patient does not seem very ill and his exam is not concerning. His vital signs are unremarkable. Labs are unremarkable. I do not think he has a hernia. I do not think he has diverticulitis. I do not think his symptoms relate to his liver. The patient was reassured. He will be given a prescription for ibuprofen. He should follow up with his PCP. Lab Data 12/12/24 13:12 12/12/24 13:12 Labs: Lab Results 12/12/24 12/12/24 Range/Units 13:12 13:17 WBC 5.9 (4.8-10.8) X10*3/uL RBC 4.50 L (4.60-5.80) X10*6/uL Hgb 14.1 (14.0-18.0) g/dl Hct 41.2 L (42.0-52.0) % MCV 91.6 (80.0-98.0) fL MCH 31.3 (27.0-33.0) pg MCHC 34.2 (31.0-36.0) g/dl RDW 12.7 (11.0-16.0) % Plt Count 195 (160-400) X10*3/uL MPV 10.6 (9.4-12.4) fL Immature Gran % (Auto) 0.2 (0.0-0.4) % Neut % (Auto) 63.1 (45-73) % Lymph % (Auto) 26.4 (20-40) % Scurry % (Auto) 6.8 (2-11) % Eos % (Auto) 3.0 (0-4) % Baso % (Auto) 0.5 (0-2) % Lymph # (Auto) 1.6 (1.2-4.9) X10*3/uL Scurry # (Auto) 0.4 (0.1-1.2) X10*3/uL Eos # (Auto) 0.2 (0.0-0.4) X10*3/uL Baso # (Auto) 0.0 (0.0-0.2) X10*3/uL Abs Immat Gran (auto) 0.01 (0.00-0.03) X10*3/uL Absolute Neuts (auto) 3.7 (2.0-8.3) x10*3/uL Absolute Nucleated RBC 0.000 (0.0-0.012) X10*3/uL Nucleated RBC % (auto) 0.0 (0.0-0.2) /100WBC Sodium 140 (135-145) mmol/L Potassium 4.3 (3.3-5.1) mmol/L Chloride 99 (96-108) mmol/L Carbon Dioxide 35 H (22-29) mmol/L Anion Gap 10 L (12-20) BUN 13 (9-16) mg/dL Creatinine 0.93 (0.5-1.4) mg/dL Estim Creat Clear Calc 78.1 Estimated GFR > 60 Random Glucose 96 (60-115) mg/dL Calcium 9.4 (8.4-10.2) mg/dL Total Bilirubin 0.6 (0.0-1.0) mg/dL AST 33 (5-37) U/L ALT 41 H (0-40) U/L Alkaline Phosphatase 57 (39-117) U/L Total Protein 7.4 (6.5-8.0) g/dL Albumin 4.4 (3.5-5.0) g/dL Lipase 21 (8-78) U/L Urine Color Yellow Urine Appearance Clear Urine pH 8.5 (5.0-9.0) Ur Specific [place] 1.010 (1.005-1.025) Urine Protein Negative (Neg-Trace) mg/dL Urine Glucose (UA) Negative (Negative) mg/dL Urine Ketones Negative (Negative) mg/dL Urine Blood Negative (Negative) Urine Nitrite Negative (Negative) Ur Leukocyte Esterase Negative (Negative) Discharge Plan Discharge Clinical Impression: Left lower quadrant abdominal pain Patient Disposition: Home, Self-Care Additional Instructions: Your testing today seems very reassuring. I think your pain is probably coming from the muscles of your abdominal wall. You may use ibuprofen as needed for pain. This prescription was sent to your pharmacy. Follow up with your regular doctor soon. Return to the emergency room if significantly worse. Prescriptions: New ibuprofen 400 mg tablet 400 mg PO Q6H PRN (Reason: pain) Qty: 14 0RF No Action docusate sodium [Colace] 100 mg capsule 200 mg PO BEDTIME 30 Days Qty: 60 3RF (DME) needle (disp) 18 G [BD Regular Bevel [place]] 18 gauge x 1 needle See Rx Instructions .Route Qty: 30 0RF Rx Instructions: As directed to draw testosterone (DME) needle (disp) 22 G 22 gauge x 1 needle See Rx Instructions .Route Qty: 30 0RF Rx Instructions: As directed to inject testosterone (DME) syringe (disposable) [BD Luer-Vira Syringe] 3 mL syringe See Rx Instructions .Route Qty: 25 0RF Rx Instructions: As directed 1 syringe [id number] 2 syringes total per month for T injection clonazepam 1 mg Tablet 1 mg PO DAILY methadone 40 mg Tablet,Soluble 36 mg PO DAILY hydroxyzine HCl 25 mg Tablet 25 mg PO TID PRN (Reason: Itching) fluticasone propionate [Flonase Allergy Relief] 50 mcg/actuation [place],Suspension 1 spray INTRANASAL DAILY cholecalciferol (vitamin D3) [Vitamin D3] 50 mcg (2,000 unit) Capsule 50 mcg PO DAILY phenylephrine HCl [Sudafed PE] 10 mg tablet 10 mg PO Q6H PRN (Reason: nasal congestion) Qty: 10 0RF sucralfate [Carafate] 100 mg/mL suspension 10 ml PO BID 14 Days Qty: 280 0RF diazepam [Valium] 5 mg tablet 5 mg PO BID PRN (Reason: muscle spasm) Qty: 10 0RF trazodone 50 mg tablet 25 mg PO BEDTIME mirtazapine 15 mg tablet 15 mg PO BEDTIME fluoxetine 10 mg capsule 20 mg PO QAM nicotine 14 mg/24 hr patch 24 hour 0 patch topical bisacodyl [Dulcolax (bisacodyl)] 5 mg tablet,delayed release (DR/EC) 10 mg PO ONCE 1 Days Qty: 2 0RF Rx Instructions: Take 2 tablets by mouth at 12:00pm the day before your procedure. polyethylene glycol 3350 [Miralax] 17 gram/dose powder 238 g PO ONCE 1 Days Qty: 238 0RF Rx Instructions: Take as directed by mouth the day before your procedure. cetirizine 10 mg tablet 10 mg PO DAILY PRN (Reason: congestion) lidocaine [Lidoderm] 5 % adhesive patch,medicated 0 patch topical ferrous sulfate [FeroSul] 325 mg (65 mg iron) tablet 325 mg PO DAILY ascorbic acid (vitamin C) [Vitamin C] 500 mg tablet 500 mg PO DAILY sennosides [senna] 8.6 mg tablet 17.2 mg PO DAILY furosemide [Lasix] 20 mg tablet 20 mg PO DAILY Qty: 90 0RF tamsulosin 0.4 mg capsule 0.8 mg PO BEDTIME 90 Days Qty: 180 1RF testosterone cypionate 200 mg/mL oil 200 mg IM Q2W 28 Days Qty: 2 5RF albuterol sulfate [Ventolin HFA] 90 mcg/actuation HFA aerosol inhaler 2 puff inhalation Q4H PRN (Reason: wheezing) ibuprofen 600 mg tablet 600 mg PO Q8H PRN (Reason: headache) melatonin 5 mg tablet 5 - 10 mg PO BEDTIME PRN rosuvastatin 10 mg tablet 10 mg PO QAM clonazepam 0.5 mg tablet 1 mg PO BID PRN nicotine (polacrilex) 2 mg lozenge 2 mg PO simethicone [Gas Relief Extra Strength] 125 mg capsule 125 mg PO BEDTIME multivitamin Tablet 1 tab PO QAM omeprazole 40 mg capsule,delayed release(DR/EC) 40 mg PO QAM Referrals: Haily Robb, COORDINATOR OF HEALTH SERVICES [Primary Care Provider] - Interventions: ED Discharge Assessment Last Done: 12/12/24 16:37 Discharge Date/Time: 12/12/24 16:41 Print Language: Portuguese
[2024-12-12 13:18] LABS: MANUAL DIFF FLAG NO
[2024-12-12 13:20] LABS: Basophils Percent Auto 0.5 % (0-2); Eosinophils Absolute Auto 0.2 X10*3/uL (0.0-0.4); Hematocrit 41.2 % (42.0-52.0); Hemoglobin 14.1 g/dl (14.0-18.0); Imm Gran Abs Auto 0.01 X10*3/uL (0.00-0.03); Imm Gran Pct Auto 0.2 % (0.0-0.4); Lymphocytes Absolute Auto 1.6 X10*3/uL (1.2-4.9); Lymphocytes Percent Auto 26.4 % (20-40); Mean Corpuscular HGB Conc 34.2 g/dl (31.0-36.0); Mean Corpuscular Hemoglobin 31.3 pg (27.0-33.0); Mean Corpuscular Volume 91.6 fL (80.0-98.0); Mean Platelet Volume 10.6 fL (9.4-12.4); Monocytes Absolute Auto 0.4 X10*3/uL (0.1-1.2); Monocytes Percent Auto 6.8 % (2-11); Neutrophils Absolute Auto 3.7 x10*3/uL (2.0-8.3); Neutrophils Percent Auto 63.1 % (45-73); Platelet Count 195 X10*3/uL (160-400); Red Cell Distribution Width 12.7 % (11.0-16.0); White Blood Count 5.9 X10*3/uL (4.8-10.8)
[2024-12-12 13:26] LABS: Appearance Urine Clear; Color Urine Yellow; Glucose Urine UA Negative (Negative); Leukocyte Esterase Urine Negative (Negative); Nitrite Urine Negative (Negative); PH 8.5 (5.0-9.0); Urine Blood Negative (Negative); Urine Ketones Negative (Negative); Urine Protein Negative (Neg-Trace)
[2024-12-12 13:37] LABS: Alanine Aminotransferase 41 U/L (0-40); Albumin Level 4.4 g/dL (3.5-5.0); Alkaline Phosphatase 57 U/L (39-117); Anion Gap 10 (12-20); Aspartate Amino Transferase 33 U/L (5-37); Bilirubin Total 0.6 mg/dL (0.0-1.0); Blood Urea Nitrogen 13 mg/dL (9-16); Calcium 9.4 mg/dL (8.4-10.2); Carbon Dioxide 35 mmol/L (22-29); Chloride 99 mmol/L (96-108); Creatinine Clr Calc Pharmacy 78.1; Estimated Glomerular Filt Rate > 60; Glucose Random 96 mg/dL (60-115); Lipase 21 U/L (8-78); Potassium 4.3 mmol/L (3.3-5.1); Sodium 140 mmol/L (135-145); Total Protein 7.4 g/dL (6.5-8.0)
--- OUTSIDE RECORDS SUMMARY | 2024-12-12 15:48 | XMS_ITS | Encounter Summary ---
Author Organization [employer] Address [address] [place] [address] Care Team Providers Care Parking Analyst Name Role Phone Clarisse [facility] Primary Care Provider [phone] Reason for Visit * Reason Onset Date Comments Medication Question 08/24/2022 Encounter Details Date Type Department Care Team ([facility] st Contact Info) Description 08/24/2022 Telephone [facility] [address] [place] [address] [facility] [address] [place] [address] Medication Question Social History Tobacco Use Types [...] requesting a call back. States went to [facility] pick[facility] his medication and they gave him vitamin C and he would like to know if he should be taking them again . Please call to clarify. documented in this encounter Plan of Treatment Upcoming Encounters Date Type Department Care Team (Late st Contact Info) Description 12/15/2024 11:30 AM EDT Office Visit [facility] [address] [place] [address] Haily Robb FNP [address] [place] [address] 04/24/2025 1:00 PM EDT Office Visit [facility] [address], [place] [phone] Claudette Soni [address] [place] [address] documented as of this encounter Visit Diagnoses Not on filedocumented in this encounter Care Teams Parking Analyst Relationship Specialty Start Date End Date Haily Robb FNP [address] [place] [phone] PCP - General Family Medicine 05/01/22 documented as of this encounter
--- OUTSIDE RECORDS SUMMARY | 2024-12-12 15:48 | XMS_ITS | Encounter Summary ---
Author Organization [employer] Address [address] [place] [address] Care Team Providers Care Door Framer Name Role Phone Clarisse Haily [employer] PLANER TENDER Primary Care Provider [phone] Encounter Details Date Type Department Care Team ([facility] st Contact Info) Description 12/12/2024 Orders Only GENERIC EXTERNAL DATA DEPARTMENT Provider, [...] Description 12/15/2024 11:30 AM EDT Office Visit [facility] [address] [place] [address] [place], [place], [facility] [address] [place] [address] 04/24/2025 1:00 PM EDT Office Visit [facility] ADULT DENTAL [address] [place] [address] Zachariah, Claudette [address] [place] [address] documented as of this encounter Goals Goal Patient Goal Type Associated Problems Recent Progress Patient-Stated? Author Patient will adhere to medication regimen General Mary Chauhan documented as of this encounter Procedures Procedure Name Priority Date/Time Associated Diagnosis Comments URINALYSIS WITH REFLEX MICROSCOPIC Routine 12/12/2024 1:17 PM EDT CBC WITH AUTO DIFFERENTIAL Routine 12/12/2024 1:12 PM EDT LIPASE Routine 12/12/2024 1:12 PM EDT COMPREHENSIVE METABOLIC PANEL Routine 12/12/2024 1:12 PM EDT documented in this encounter Results * Urinalysis w/reflex microscopic (12/12/2024 1:17 PM EDT) Color Urine Yellow [facility] Appearance Urine Clear [facility] PH 8.5 5.0 - 9.0 [facility] Glucose Urine UA Negative Negative mg/dL [facility] Urine Blood Negative Negative [facility] Specific [place] - Urine 1.010 1.005 - 1.025 [facility] Urine Protein Negative Neg-Trace mg/dL [facility] Urine Ketones Negative Negative mg/dL [facility] Nitrite Urine Negative Negative [facility] Leukocyte Esterase Urine Negative Negative [facility] 12/12/2024 1:17 PM EDT 12/12/2024 1:21 PM EDT Narrative [facility] - 12/12/2024 1:26 PM EDT [id number], [employer] us Generic External Data Provider LAB URINE ORDERAB LES Final Result Performing Organization Address [facility] Co de Phone Number [facility] [address] [place] [phone] * Lipase (12/12/2024 1:12 PM EDT) Lipase 21 8 - 78 U/L [facility] 12/12/2024 1:12 PM EDT 12/12/2024 1:17 PM EDT Generic External Data Provider LAB BLOOD ORDERAB LES Final Result Performing Organization Address [facility] Co de Phone Number [facility] [address] [place] [phone] * (ABNORMAL) Comprehensive Metabolic Panel (12/12/2024 1:12 PM EDT) Sodium 140 135 - 145 mmol/L [facility] Potassium 4.3 3.3 - 5.1 mmol/L [facility] Chloride 99 96 - 108 mmol/L [facility] Carbon Dioxide 35(H) 22 - 29 mmol/L [facility] Anion Gap 10(L) 12 - 20 [facility] Urea Nitrogen (BUN) 13 9 - 16 mg/dL [facility] Creatinine, Serum 0.93 0.5 - 1.4 mg/dL [facility] Creatinine Clr Calc Pharmacy 78.1 [facility] Comment:eGFR (calculated fro m the MDRD study equation) and eCrCl(calculated from the Cockcroft-Gault equation) are based ondifferent parameters and may not yield comparable results.If eCrCl result is absurd, please check patient'sheight/weight. Estimated Glomerular Filt Rate >60 [facility] Comment:Chronic Kidney Disea se: Estimated GFR < 60 mL/min/1.10k8Finwtg Kidney Disease: Estimated GFR < 15 mL/min/1.73m2 Glucose 96 60 - 115 mg/dL [facility] Calcium 9.4 8.4 - 10.2 mg/dL [facility] Bilirubin, Total 0.6 0.0 - 1.0 mg/dL [facility] Aspartate Amino Transferase 33 5 - 37 U/L [facility] Alanine Aminotransferase 41(H) 0 - 40 U/L [facility] Total Protein 7.4 6.5 - 8.0 g/dL [facility] Albumin Level 4.4 3.5 - 5.0 g/dL [facility] Alkaline Phosphatase 57 39 - 117 U/L [facility] 12/12/2024 1:12 PM EDT 12/12/2024 1:17 PM EDT us Generic External Data Provider LAB BLOOD ORDERAB LES Final Result [facility] [address] [place] [phone] * (ABNORMAL) CBC auto differential (12/12/2024 1:12 PM EDT) White Blood Count 5.9 4.8 - 10.8 X10*3/uL [facility] Red Blood Count 4.50(L) 4.60 - 5.80 X10*6/uL [facility] Hemoglobin 14.1 14.0 - 18.0 g/dl [facility] Hematocrit 41.2(L) 42.0 - 52.0 % [facility] Mean Corpuscular Volume 91.6 80.0 - 98.0 fL [facility] Mean Corpuscular Hemoglobin 31.3 27.0 - 33.0 pg [facility] Mean Corpuscular HGB Conc 34.2 31.0 - 36.0 g/dl [facility] Red Cell Distribution Width 12.7 11.0 - 16.0 % [facility] Platelet Count 195 160 - 400 X10*3/uL [facility] Mean Platelet Volume 10.6 9.4 - 12.4 fL [facility] Neutrophils Percent Auto 63.1 45 - 73 % [facility] Imm Gran Pct Auto 0.2 0.0 - 0.4 % [facility] Lymphocytes Percent Auto 26.4 20 - 40 % [facility] Monocytes Percent Auto 6.8 2 - 11 % [facility] Eosinophils Percent Auto 3.0 0 - 4 % [facility] Basophils Percent Auto 0.5 0 - 2 % [facility] NRBC Pct Auto 0.0 0.0 - 0.2 /100WBC [facility] Neutrophils Absolute Auto 3.7 2.0 - 8.3 x10*3/uL [facility] Imm Gran Abs Auto 0.01 0.00 - 0.03 X10*3/uL [facility] Lymphocytes Absolute Auto 1.6 1.2 - 4.9 X10*3/uL [facility] Monocytes Absolute Auto 0.4 0.1 - 1.2 X10*3/uL [facility] Eosinophils Absolute Auto 0.2 0.0 - 0.4 X10*3/uL [facility] Basophils Absolute Auto 0.0 0.0 - 0.2 X10*3/uL [facility] NRBC Abs Auto 0.000 0.0 - 0.012 X10*3/uL [facility] 12/12/2024 1:12 PM EDT 12/12/2024 1:17 PM EDT us Generic External Data Provider LAB BLOOD ORDERAB LES Final Result [facility] [address] [place] [phone] documented in this encounter Visit Diagnoses Not on filedocumented in this encounter Additional Health Concerns Assessment Noted Time PHQ-9 Depression Total Score: 0 10/10/19 25 1:23 PM EST documented as of this encounter Care Teams Door Framer Relationship Specialty Start Date End Date Haily Robb FNP [address] [place] [phone] PCP - General Family Medicine 05/01/22 documented as of this encounter
--- OUTSIDE RECORDS SUMMARY | 2024-12-12 15:48 | XMS_ITS | Encounter Summary ---
Author Organization [employer] Address [address] [place] [address] Care Team Providers Care Sensitizer Name Role Phone Haily Robb PLANT AND MAINTENANCE TECHNICIAN Primary Care Provider [phone] Reason for Visit * Reason Comments Med Refill Encounter Details Date Type Department Care Team ([facility] st Contact Info) Description 10/29/2023 Refill [facility] [address] [place], [place] [phone] Name, MD Collins [address] [place] [address] Chronic neck pain Social History Tobacco Use [...] with others, in a hotel, in a correction, living outside on the street, on a [...] the past 12 months, has t he [employer], gas, oil or water company threatened to [...] Description 12/15/2024 11:30 AM EDT Office Visit [facility] [address] [place] [address] Haily Robb [facility] [address] [place] [address] 04/24/2025 1:00 PM EDT Office Visit [facility] [address] [place] [address] Zachariah, Claudette [address] [place] [address] documented as of this encounter Visit Diagnoses Diagnosis Chronic neck pain Cervicalgia documented in this encounter Additional Health Concerns Assessment Noted Time PHQ-9 Depression Total Score: 0 08/15/20 23 3:52 PM EST documented as of this encounter Care Teams Sensitizer Relationship Specialty Start Date End Date Haily Robb FNP [address] [place] [phone] PCP - General Family Medicine 05/01/22 documented as of this encounter
--- OUTSIDE RECORDS SUMMARY | 2024-12-12 15:48 | XMS_ITS | Encounter Summary ---
Author Organization [employer] Address [address] [place] [address] Care Team Providers Care Bat Person Name Role Phone Clarisse [facility] Primary Care Provider [phone] Reason for Visit * Reason Onset Date Comments Triage 09/20/2022 Encounter Details Date Type Department Care Team ([facility] st Contact Info) Description 09/20/2022 Telephone [facility] [address] [place], [place] [phone] [facility] [address] [place] [address] Triage Social History Tobacco Use Types Packs/Day [...] 09/20/2022 11:55 AM EST Triage call with [place] Senior Buyer ID [id number] Pt reports an area on back that [...] No high acuity concerns reported by caller [facility] The caller accepted this outcome documented in this encounter Plan of Treatment Upcoming Encounters Date Type Department Care Team (Late st Contact Info) Description 12/15/2024 11:30 AM EDT Office Visit [facility] [address] [place] [address] Clayton, Haily, [facility] [address] [place] [address] 04/24/2025 1:00 PM EDT Office Visit [facility] [address] [place] [address] Claudette Soni [address] [place] [address] documented as of this encounter Visit Diagnoses Not on filedocumented in this encounter Care Teams Bat Person Relationship Specialty Start Date End Date ClaytonHailyANETA [address] [place] [address] PCP - General Family Medicine 05/01/22 documented as of this encounter
--- OUTSIDE RECORDS SUMMARY | 2024-12-12 15:48 | XMS_ITS | Encounter Summary ---
Author Organization [employer] Address [address] [place] [address] Care Team Providers Care Freight Flow Sales Leader Name Role Phone Clarisse [facility] Primary Care Provider [phone] Reason for Visit * Reason Onset Date Comments Med Refill 09/25/2023 Encounter Details Date Type Department Care Team ([facility] st Contact Info) Description 09/25/2023 Telephone [facility] [address] [place], [place] [phone] [facility] [address] [place] [address] Med Refill Social History Tobacco Use Types [...] the past 12 months, has t he [employer] gas, oil or water company threatened to [...] 200 MG/ML injection To be sent to: [facility] - [place], [place] - [address] documented in this encounter Plan of Treatment Upcoming Encounters Date Type Department Care Team (Late st Contact Info) Description 12/15/2024 11:30 AM EDT Office Visit [facility] [address] [place] [address] Haily Robb FNP [address] [place] [address] 04/24/2025 1:00 PM EDT Office Visit [facility] [address], [place] [phone] [facility] [address] [place] [address] documented as of this encounter Visit Diagnoses Not on filedocumented in this encounter Additional Health Concerns Assessment Noted Time PHQ-9 Depression Total Score: 0 08/15/20 23 3:52 PM EST documented as of this encounter Care Teams Freight Flow Sales Leader Relationship Specialty Start Date End Date Haily Robb FNP [address] [place] [id number] PCP - General Family Medicine 05/01/22 documented as of this encounter
--- OUTSIDE RECORDS SUMMARY | 2024-12-12 15:48 | XMS_ITS | Clinical Summary ---
Author Organization [employer] Address [address] [place] [address] Care Team Providers Care Installations Inspector Name Role Phone Haily Robb [facility] Primary Care Provider [phone] Allergies Active Allergy Reactions Criticality Noted Date [...] given. Epigastric pain 11/20/2023 Assessment & Plan (12/01/2024 7:26 PM EDT): Vitals, exam, labs all reassuring CT scan on 12/01/24 does not show cholelithaisis He does not think he could tolerate MRI for MRCP in any case Continue [place] Call GI at [place] for EGD and colonoscopy Eat small frequent meals of bland food and protein Reasons to come back to clinic/ED discussed for fever, intolerance to PO, diarrhea/vomiting Assessment & Plan (11/20/2023 1:42 PM EDT): [...] ? Established with therapy and psychiatry at [facility] ? ? No rash, fever, chills, [...] for anxiety sxs) that comes referred from [facility] for exacerbated anxiety in presence of [...] a good support system through his family, hoahaoism and recovery network, as well as having [...] to explore potential nerve damage due to skilled nursing use of anxiolytics, even though John is on low dose medication. At this time is unclear if crawling/burning sensation on skin is solely due to medical and/or somatic presentation. However, sxs are causing significant psychological distress in patient. John was given information on how to reach out to [facility] team and [facility] numbers for crisis. He was also encouraged [...] male 11/02/2022 Overview (11/02/2022): ?? Followed by [facility] urology Dr. Lux ?? [...] that patient prefer are from a different aesthetician and are on back order. ?? Pt [...] Encounters Date Type Department Care Team Description 12/12/2024 Orders Only GENERIC EXTERNAL DATA DEPARTMENT Provider, Generic External Data 12/05/2024 Travel 12/05/2024 Telephone [facility] [address] [place] [address] Haily Robb FNP No Show 12/02/[address] [address] Haily Robb FNP ER Follow-up 12/01/2024 Orders Only GENERIC EXTERNAL DATA DEPARTMENT Provider, Generic External Data 11/25/2024 11:00 AM EDT Office Visit [facility] [address] [place] [address] Jana Morgan MD Epigastric pain (Primary Dx); Interstitial lung disease (CMS/HCC); Odynophagia 11/25/2024 Travel 11/24/2024 Telephone [facility] [address] [place] [address] Haily Robb FNP Nurse Triage 11/20/[address] [address] Haily Robb FNP Call Back Request 11/17/2024 Telephone [facility] [address] [place] [address] Haily Robb FNP No Show (Patient no show for sick on site ) 11/14/2024 Population Health Risk Score [facility] [address] [phone] Provider, Population Health Generic 11/13/2024 Telephone [facility] [address] [place] [address] Haily Robb FNP Lab Orders 11/13/2024 Refill [facility] [address] [place] [address] Haily Robb FNP Vitamin D deficiency 11/04/2024 Orders Only [facility] External Provider, [facility] 10/31/2024 Telephone [facility] [address] [facility] [place] [address] Haily Robb FNP Results 10/30/2024 Refill [facility] [address] [place] [address] Haily Robb FNP Epigastric pain 10/28/2024 Refill [facility] [address] [place] [address] Haily Robb FNP Polyneuropathy 10/28/2024 Refill [facility] [address] [facility] [place] [address] Haily Robb FNP 10/22/2024 1:00 PM EST Office Visit [facility] [address] [place] [address] Claudette Soni Partial edentulism, unspecified edentulism class (Primary Dx); Dental calculus; Generalized gingival recession, moderate; Normal oral exam 10/14/2024 Telephone [facility] [address] [place] [address] Haily Robb FNP Results 10/10/2024 1:15 PM EST Office Visit [facility] [address] [place] [address] Haily Robb FNP Polyneuropathy (Primary Dx); Bilateral lower extremity edema; Ataxia; Chronic pain of both knees; Anxiety due to invasive procedure; Shortness of breath 10/10/2024 Travel 10/01/2024 Refill [facility] [address] [place] [address] Haily Robb FNP Mixed anxiety and depressive disorder 09/24/2024 2:40 PM EST Office Visit [facility] [address] [place] [phone] Pepper Balderrama MD Bilateral lower extremity edema (Primary Dx) 09/16/2024 Telephone [facility] [address] [place] [phone] Haily Robb FNP Durable Medical Equipment (Compression stockings) from Last [...] Description 12/15/2024 11:30 AM EDT Office Visit [facility] [address] [place] [address] [facility], [facility] [address] [place] [address] 04/24/2025 1:00 PM EDT Office Visit [facility] [address] [place] [address] Claudette Soni [address] [place] [address] Health Maintenance Due Date Last Done Comments [...] REFLEX MICROSCOPIC Routine 12/12/2024 1:17 PM EDT LIPASE Routine 12/12/2024 1:12 PM EDT COMPREHENSIVE METABOLIC PANEL Routine 12/12/2024 1:12 PM EDT CBC WITH AUTO DIFFERENTIAL Routine 12/12/2024 1:[address] ABDOMEN PELVIS W CONTRAST Routine 12/01/2024 2:[address] CHEST W CONTRAST Routine 12/01/2024 2 :39 PM EDT T-SPOT(R).TB Routine 12/01/2024 11:52 AM EDT URINALYSIS WITH REFLEX MICROSCOPIC Routine 12/01/2024 11:52 [...] Dental calculus 11 I COMPOSITE FILLING Routine 5 12:00 AM EST XR KNEE 4+ VIEWS RIGHT Routine 5 2:37 PM EST Chronic pain of both [...] Health Maintenance Results * Urinalysis w/reflex microscopic (12/12/2024 1:17 PM EDT) Only the most recent of2 resultswithin the time period is included. Color Urine Yellow [facility] Appearance Urine Clear [facility] PH 8.5 5.0 - 9.0 [facility] Glucose Urine UA Negative Negative mg/dL [facility] Urine Blood Negative Negative [facility] Specific [place] - Urine 1.010 1.005 - 1.025 [facility] Urine Protein Negative Neg-Trace mg/dL [facility] Urine Ketones Negative Negative mg/dL [facility] Nitrite Urine Negative Negative [facility] Leukocyte Esterase Urine Negative Negative [facility] 12/12/2024 1:17 PM EDT 12/12/2024 1:21 PM EDT Narrative [facility] - 12/12/2024 1:26 PM EDT [id number], Clean Catch us Generic External Data Provider LAB URINE ORDERAB LES Final Result [facility] [address] [place], [place] [phone] * (ABNORMAL) CBC auto differential (12/12/2024 1:12 PM EDT) Only the most recent of2 resultswithin the time period is included. White Blood Count 5.9 4.8 - 10.8 X10*3/uL [facility] Red Blood Count 4.50(L) 4.60 - 5.80 X10*6/uL [facility] Hemoglobin 14.1 14.0 - 18.0 g/dl [facility] Hematocrit 41.2(L) 42.0 - 52.0 % [facility] Mean Corpuscular Volume 91.6 80.0 - 98.0 fL [facility] Mean Corpuscular Hemoglobin 31.3 27.0 - 33.0 pg [facility] Mean Corpuscular HGB Conc 34.2 31.0 - 36.0 g/dl [facility] Red Cell Distribution Width 12.7 11.0 - 16.0 % [facility] Platelet Count 195 160 - 400 X10*3/uL [facility] Mean Platelet Volume 10.6 9.4 - 12.4 fL [facility] Neutrophils Percent Auto 63.1 45 - 73 % [facility] Imm Gran Pct Auto 0.2 0.0 - 0.4 % [facility] Lymphocytes Percent Auto 26.4 20 - 40 % [facility] Monocytes Percent Auto 6.8 2 - 11 % [facility] Eosinophils Percent Auto 3.0 0 - 4 % [facility] Basophils Percent Auto 0.5 0 - 2 % [facility] NRBC Pct Auto 0.0 0.0 - 0.2 /100WBC [facility] Neutrophils Absolute Auto 3.7 2.0 - 8.3 x10*3/uL [facility] Imm Gran Abs Auto 0.01 0.00 - 0.03 X10*3/uL [facility] Lymphocytes Absolute Auto 1.6 1.2 - 4.9 X10*3/uL [facility] Monocytes Absolute Auto 0.4 0.1 - 1.2 X10*3/uL [facility] Eosinophils Absolute Auto 0.2 0.0 - 0.4 X10*3/uL [facility] Basophils Absolute Auto 0.0 0.0 - 0.2 X10*3/uL [facility] NRBC Abs Auto 0.000 0.0 - 0.012 X10*3/uL [facility] 12/12/2024 1:12 PM EDT 12/12/2024 1:17 PM EDT Generic External Data Provider LAB BLOOD ORDERAB LES Final Result Performing Organization Address City/[facility]/ZIP Co de Phone Number [facility] [address] [place] [address] [phone] * Lipase (12/12/2024 1:12 PM EDT) Pathologist [facility] Lipase 21 8 - 78 U/L [facility] 12/12/2024 1:12 PM EDT 12/12/2024 1:17 PM EDT [employer] External Data Provider LAB BLOOD ORDERAB LES Final Result Performing Organization Address [facility] de Phone Number [facility] [address] [place] [address] [phone] * (ABNORMAL) Comprehensive Metabolic Panel (12/12/2024 1:12 PM EDT) Sodium 140 135 - 145 mmol/L [facility] Potassium 4.3 3.3 - 5.1 mmol/L [facility] Chloride 99 96 - 108 mmol/L [facility] Carbon Dioxide 35(H) 22 - 29 mmol/L [facility] Anion Gap 10(L) 12 - 20 [facility] Urea Nitrogen (BUN) 13 9 - 16 mg/dL [facility] Creatinine, Serum 0.93 0.5 - 1.4 mg/dL [facility] Creatinine Clr Calc Pharmacy 78.1 [facility] Comment:eGFR (calculated fro m the MDRD study equation) and eCrCl(calculated from the Cockcroft-Gault equation) are based ondifferent parameters and may not yield comparable results.If eCrCl result is absurd, please check patient'sheight/weight. Estimated Glomerular Filt Rate >60 [facility] Comment:Chronic Kidney Disea se: Estimated GFR < 60 mL/min/1.56u9Bqtzyw Kidney Disease: Estimated GFR < 15 mL/min/1.73m2 Glucose 96 60 - 115 mg/dL [facility] Calcium 9.4 8.4 - 10.2 mg/dL [facility] Bilirubin, Total 0.6 0.0 - 1.0 mg/dL [facility] Aspartate Amino Transferase 33 5 - 37 U/L [facility] Alanine Aminotransferase 41(H) 0 - 40 U/L [facility] Total Protein 7.4 6.5 - 8.0 g/dL [facility] Albumin Level 4.4 3.5 - 5.0 g/dL [facility] Alkaline Phosphatase 57 39 - 117 U/L [facility] 12/12/2024 1:12 PM EDT 12/12/2024 1:17 PM EDT us Generic External Data Provider LAB BLOOD ORDERAB LES Final Result Performing Organization Address City/State/[facility] Co de Phone Number [facility] [address] [place] [phone] * CT Abdomen Pelvis w/ Contrast (12/01/2024 2:39 PM EDT) Anatomical Region Laterality Modality Body, Pelvis, Abdomen Computed T omography 12/01/2024 2:39 PM EDT Narrative 12/01/2024 3:17 PM EDT ? [facility] ?[address] ?[place] [address] ? CT Scan Report ? Signed ? Patient: Jr Ro,Jean ?MR#: ?? [id number] ? : 1970 ?Acct:[id number] ? Age/Sex: 54 / M ?ADM Date: 12/01/24 ? Loc: HO.ED ? Attending Dr: ? Ordering Physician: Eliazar Ashby MD ?? Date of Service: 12/01/24 ?? Procedure(s): CT abdomen pelvis w IV con ?? Accession Number(s): [id number] ? cc: Eliazar Ashby MD; Haily Robb ? Report Number: ?? [id number]: Total DLP = ??297.39 mGy-cm ?? EXAMINATION: ??CT ABDOMEN PELVIS WITH IV CONTRAST, CT CHEST WITH IV ?? CONTRAST ? INDICATION: abdominal pain, lose weight ? COMPARISON: Comparison is made with the prior CT of the abdomen and ?? pelvis dated 11/22/2021.. ? TECHNIQUE: CT scan of the chest, abdomen and pelvis was performed ?? following administration of 85 mL Omnipaque 350 using standard ?? departmental protocol. ?? Coronal and sagittal reformatted images were ?? generated and reviewed. ??Oral contrast material was not administered at ?? the request of the referring physician. ? This CT exam was performed with one or more of the following dose ?? reduction techniques: automated exposure control, adjustment of the mA ?? and/or kV according to patient size, use of iterative reconstruction ?? technique. ? DLP: 474 mGy-cm ? CHEST: ? THYROID: The thyroid is unremarkable. ? LUNGS: There are 3 mm nodules in the right upper lobe (series 6, image ?? 45), and in the right lower lobe (series 6, image 96). The lungs are ?? otherwise clear. ? MEDIASTINUM: There is no mediastinal lymphadenopathy. ? KAYLAH: There is no hilar lymphadenopathy. ? CARDIOVASCULATURE: The heart is normal in size. ??There is no ?? pericardial effusion. ??The thoracic aorta is normal in caliber. ? DEGREE OF CORONARY CALCIFICATION: ??none ? PLEURA: ??There is no pleural effusion. ??No pneumothorax. ? MAIN AIRWAYS: The mainstem bronchi and proximal branches are patent. ? AXILLA: There is no axillary lymphadenopathy. ? SOFT TISSUES: ??Unremarkable. ? BONES: ??The bones are intact. ? ABDOMEN: ? LIVER: ??The liver is normal in size and contour. ??No liver mass is ?? identified. ??The hepatic and portal veins are patent. ? GALLBLADDER / BILE DUCTS: ??The gallbladder is unremarkable. There is no ?? intra or extrahepatic biliary ductal dilatation. ? SPLEEN: The spleen is normal in size. No focal splenic lesion is ?? identified. ? PANCREAS: The pancreas is unremarkable in appearance. ? ADRENAL GLANDS: Within normal limits. ? KIDNEYS/RETROPERITONEUM: No renal calculi are identified. There is no ?? hydronephrosis. ??No renal masses are identified. ? LYMPH NODES: ??No abdominal or pelvic lymphadenopathy. ? VASCULATURE: ??The abdominal aorta demonstrates atherosclerotic ?? calcification, but is normal in caliber. ? MESENTERY/PERITONEUM: No free fluid. No masses. ??There is no free ?? intraperitoneal gas. ? STOMACH: ??The stomach is collapsed, limiting evaluation. ? SMALL BOWEL: ?? The small bowel is normal in caliber. ? COLON: ??There is a moderate amount of stool throughout the colon. ? APPENDIX: ??The appendix is not seen, however no inflammatory changes ?? are seen adjacent to the cecum. ? URINARY BLADDER/PELVIC ORGANS: The urinary bladder is unremarkable. ? The prostate is normal in size. ? BONES / SOFT TISSUES: ??No suspicious bony or soft tissue abnormalities. ? CT/CT abdomen pelvis w IV con ?? IMPRESSION: ?? 3 mm right upper and lower lobe pulmonary nodules. Please see ?? Fleischner Society guidelines below. Otherwise unremarkable ?? contrast-enhanced CT of the chest, abdomen and pelvis. ? Fleischner Criteria for pulmonary nodule follow-up ? SOLID NODULES: ?? Low risk patient: ?? <6mm: no follow-up ?? 6-8mm: 6 month follow-up CT ?? >8mm: PET/Biopsy/ 3 month follow-up CT ? High risk patient: ?? <6mm: 12 month follow-up CT ?? 6-8mm: 6 month follow-up CT ?? >8mm: PET/Biopsy/ 3 month follow-up CT ? SUB-SOLID/GROUNDGLASS NODULES: ?? All patients: ?? > or = 6mm: 6 month follow-up CT ? *Please note that in patients in the following categories, the ?? Fleischner criteria do not apply: Immunocompromised, lung cancer ?? screening population, age below 35, and patients with known malignancy ? Electronically signed by: ??Jean Pierre Adamson MD ??12/01/2024 03:15 PM EDT ? Dictated By: ?Jean Pierre Adamson MD ? Signed By: ?<Electronically signed by Jean Pierre Adamson MD in OV> ?12/01/24 1515 ? DD/ 1439 ? TD/TT: 12/01/24 1501 ? [employer]er: ? Procedure Note Marilyn, Image - 12/01/[address] [place] [address] [address] Scan Report Signed Patient: John Fitzpatrick AMR#: [id number] : 1970Acct:[id number] Age/Sex: 54 / MADM Date: 12/01/24 Loc: HO.ED Attending Dr: Ordering Physician: Eliazar Ashby MD Date of Service: 12/01/24 Procedure(s): CT abdomen pelvis w IV con Accession Number(s): [id number] cc: Eliazar Ashby MD; [facility] Report Number: [id number]: Total DLP = 297.39 mGy-cm EXAMINATION: CT ABDOMEN PELVIS WITH IV CONTRAST, CT CHEST WITH IV CONTRAST INDICATION: abdominal pain, lose weight COMPARISON: Comparison is made with the prior CT of the abdomen and pelvis dated 11/22/2021.. TECHNIQUE: CT scan of the chest, abdomen and pelvis was performed following administration of 85 mL Omnipaque 350 using standard departmental protocol. Coronal and sagittal reformatted images were generated and reviewed. Oral contrast material was not administered at the request of the referring physician. This CT exam was performed with one or more of the following dose reduction techniques: automated exposure control, adjustment of the mA and/or kV according to patient size, use of iterative reconstruction technique. DLP: 474 mGy-cm CHEST: THYROID: The thyroid is unremarkable. LUNGS: There are 3 mm nodules in the right upper lobe (series 6, image 45), and in the right lower lobe (series 6, image 96). The lungs are otherwise clear. MEDIASTINUM: There is no mediastinal lymphadenopathy. KAYLAH: There is no hilar lymphadenopathy. CARDIOVASCULATURE: The heart is normal in size. There is no pericardial effusion. The thoracic aorta is normal in caliber. DEGREE OF CORONARY CALCIFICATION: none PLEURA: There is no pleural effusion. No pneumothorax. MAIN AIRWAYS: The mainstem bronchi and proximal branches are patent. AXILLA: There is no axillary lymphadenopathy. SOFT TISSUES: Unremarkable. BONES: The bones are intact. ABDOMEN: LIVER: The liver is normal in size and contour. No liver mass is identified. The hepatic and portal veins are patent. GALLBLADDER / BILE DUCTS: The gallbladder is unremarkable. There is no intra or extrahepatic biliary ductal dilatation. SPLEEN: The spleen is normal in size. No focal splenic lesion is identified. PANCREAS: The pancreas is unremarkable in appearance. ADRENAL GLANDS: Within normal limits. KIDNEYS/RETROPERITONEUM: No renal calculi are identified. There is no hydronephrosis. No renal masses are identified. LYMPH NODES: No abdominal or pelvic lymphadenopathy. VASCULATURE: The abdominal aorta demonstrates atherosclerotic calcification, but is normal in caliber. MESENTERY/PERITONEUM: No free fluid. No masses. There is no free intraperitoneal gas. STOMACH: The stomach is collapsed, limiting evaluation. SMALL BOWEL: The small bowel is normal in caliber. COLON: There is a moderate amount of stool throughout the colon. APPENDIX: The appendix is not seen, however no inflammatory changes are seen adjacent to the cecum. URINARY BLADDER/PELVIC ORGANS: The urinary bladder is unremarkable. The prostate is normal in size. BONES / SOFT TISSUES: No suspicious bony or soft tissue abnormalities. CT/CT abdomen pelvis w IV con IMPRESSION: 3 mm right upper and lower lobe pulmonary nodules. Please see Fleischner Society guidelines below. Otherwise unremarkable contrast-enhanced CT of the chest, abdomen and pelvis. Fleischner Criteria for pulmonary nodule follow-up SOLID NODULES: Low risk patient: <6mm: no follow-up 6-8mm: 6 month follow-up CT >8mm: PET/Biopsy/ 3 month follow-up CT High risk patient: <6mm: 12 month follow-up CT 6-8mm: 6 month follow-up CT >8mm: PET/Biopsy/ 3 month follow-up CT SUB-SOLID/GROUNDGLASS NODULES: All patients: > or = 6mm: 6 month follow-up CT *Please note that in patients in the following categories, the Fleischner criteria do not apply: Immunocompromised, lung cancer screening population, age below 35, and patients with known malignancy Electronically signed by: Jean Pierre Adamson MD 12/01/2024 03:15 PM EDT Dictated By: Jean Pierre Adamson MD Signed By: <Electronically signed by Jean Pierre Adamson MD in OV> 12/01/24 1515 DD/ 1439 TD/TT: 12/01/24 1501 [employer]: [facility] External Provider IMG CT PROCEDURES Final Result * CT Chest w/ Contrast (12/01/2024 2:39 PM EDT) Anatomical Region Laterality Modality Body, Chest Computed Tomogra phy 12/01/2024 2:39 PM EDT Narrative 12/01/2024 3:17 PM EDT ? [facility] ?[address] ?[place] [address] ? CT Scan Report ? Signed ? Patient: John Fitzpatrick ?MR#: ?? [id number] ? : 1970 ?Acct:[id number] ? Age/Sex: 54 / M ?ADM Date: 03/31/25 ? Loc: HO.ED ? Attending Dr: ? Ordering Physician: Eliazar Ashby MD ?? Date of Service: 12/01/24 ?? Procedure(s): CT chest w IV con ?? Accession Number(s): [id number] ? cc: Eliazar Ashby MD; Haily Robb [employer] ? Report Number: ?? [id number]: Total DLP = ??176.61 mGy-cm ?? EXAMINATION: ??CT ABDOMEN PELVIS WITH IV CONTRAST, CT CHEST WITH IV ?? CONTRAST ? INDICATION: abdominal pain, lose weight ? COMPARISON: Comparison is made with the prior CT of the abdomen and ?? pelvis dated 11/22/2021.. ? TECHNIQUE: CT scan of the chest, abdomen and pelvis was performed ?? following administration of 85 mL Omnipaque 350 using standard ?? departmental protocol. ?? Coronal and sagittal reformatted images were ?? generated and reviewed. ??Oral contrast material was not administered at ?? the request of the referring physician. ? This CT exam was performed with one or more of the following dose ?? reduction techniques: automated exposure control, adjustment of the mA ?? and/or kV according to patient size, use of iterative reconstruction ?? technique. ? DLP: 474 mGy-cm ? CHEST: ? THYROID: The thyroid is unremarkable. ? LUNGS: There are 3 mm nodules in the right upper lobe (series 6, image ?? 45), and in the right lower lobe (series 6, image 96). The lungs are ?? otherwise clear. ? MEDIASTINUM: There is no mediastinal lymphadenopathy. ? KAYLAH: There is no hilar lymphadenopathy. ? CARDIOVASCULATURE: The heart is normal in size. ??There is no ?? pericardial effusion. ??The thoracic aorta is normal in caliber. ? DEGREE OF CORONARY CALCIFICATION: ??none ? PLEURA: ??There is no pleural effusion. ??No pneumothorax. ? MAIN AIRWAYS: The mainstem bronchi and proximal branches are patent. ? AXILLA: There is no axillary lymphadenopathy. ? SOFT TISSUES: ??Unremarkable. ? BONES: ??The bones are intact. ? ABDOMEN: ? LIVER: ??The liver is normal in size and contour. ??No liver mass is ?? identified. ??The hepatic and portal veins are patent. ? GALLBLADDER / BILE DUCTS: ??The gallbladder is unremarkable. There is no ?? intra or extrahepatic biliary ductal dilatation. ? SPLEEN: The spleen is normal in size. No focal splenic lesion is ?? identified. ? PANCREAS: The pancreas is unremarkable in appearance. ? ADRENAL GLANDS: Within normal limits. ? KIDNEYS/RETROPERITONEUM: No renal calculi are identified. There is no ?? hydronephrosis. ??No renal masses are identified. ? LYMPH NODES: ??No abdominal or pelvic lymphadenopathy. ? VASCULATURE: ??The abdominal aorta demonstrates atherosclerotic ?? calcification, but is normal in caliber. ? MESENTERY/PERITONEUM: No free fluid. No masses. ??There is no free ?? intraperitoneal gas. ? STOMACH: ??The stomach is collapsed, limiting evaluation. ? SMALL BOWEL: ?? The small bowel is normal in caliber. ? COLON: ??There is a moderate amount of stool throughout the colon. ? APPENDIX: ??The appendix is not seen, however no inflammatory changes ?? are seen adjacent to the cecum. ? URINARY BLADDER/PELVIC ORGANS: The urinary bladder is unremarkable. ? The prostate is normal in size. ? BONES / SOFT TISSUES: ??No suspicious bony or soft tissue abnormalities. ? CT/CT chest w IV con ?? IMPRESSION: ?? 3 mm right upper and lower lobe pulmonary nodules. Please see ?? Fleischner Society guidelines below. Otherwise unremarkable ?? contrast-enhanced CT of the chest, abdomen and pelvis. ? Fleischner Criteria for pulmonary nodule follow-up ? SOLID NODULES: ?? Low risk patient: ?? <6mm: no follow-up ?? 6-8mm: 6 month follow-up CT ?? >8mm: PET/Biopsy/ 3 month follow-up CT ? High risk patient: ?? <6mm: 12 month follow-up CT ?? 6-8mm: 6 month follow-up CT ?? >8mm: PET/Biopsy/ 3 month follow-up CT ? SUB-SOLID/GROUNDGLASS NODULES: ?? All patients: ?? > or = 6mm: 6 month follow-up CT ? *Please note that in patients in the following categories, the ?? Fleischner criteria do not apply: Immunocompromised, lung cancer ?? screening population, age below 35, and patients with known malignancy ? Electronically signed by: ??Jean Pierre Adamson MD ??12/01/2024 03:15 PM EDT ? Dictated By: ?Jean Pierre Adamson MD ? Signed By: ?<Electronically signed by Jean Pierre Adamson MD in OV> ?12/01/24 1515 ? DD/ 1439 ? TD/TT: 12/01/24 1501 ? Calcine Furnace Loader: ? Procedure Note Donjosefinater, Image - 12/01/[address] [place] [address] [address] Scan Report Signed Patient: John Fitzpatrick AMR#: [id number] : 1970Acct:[id number] Age/Sex: 54 / MADM Date: 12/01/24 Loc: HO.ED Attending Dr: Ordering Physician: Eliazar Ashby MD Date of Service: 12/01/24 Procedure(s): CT chest w IV con Accession Number(s): [id number] cc: Eliazar Ashby MD; [facility] Report Number: [id number]: Total DLP = 176.61 mGy-cm EXAMINATION: CT ABDOMEN PELVIS WITH IV CONTRAST, CT CHEST WITH IV CONTRAST INDICATION: abdominal pain, lose weight COMPARISON: Comparison is made with the prior CT of the abdomen and pelvis dated 11/22/2021.. TECHNIQUE: CT scan of the chest, abdomen and pelvis was performed following administration of 85 mL Omnipaque 350 using standard departmental protocol. Coronal and sagittal reformatted images were generated and reviewed. Oral contrast material was not administered at the request of the referring physician. This CT exam was performed with one or more of the following dose reduction techniques: automated exposure control, adjustment of the mA and/or kV according to patient size, use of iterative reconstruction technique. DLP: 474 mGy-cm CHEST: THYROID: The thyroid is unremarkable. LUNGS: There are 3 mm nodules in the right upper lobe (series 6, image 45), and in the right lower lobe (series 6, image 96). The lungs are otherwise clear. MEDIASTINUM: There is no mediastinal lymphadenopathy. KAYLAH: There is no hilar lymphadenopathy. CARDIOVASCULATURE: The heart is normal in size. There is no pericardial effusion. The thoracic aorta is normal in caliber. DEGREE OF CORONARY CALCIFICATION: none PLEURA: There is no pleural effusion. No pneumothorax. MAIN AIRWAYS: The mainstem bronchi and proximal branches are patent. AXILLA: There is no axillary lymphadenopathy. SOFT TISSUES: Unremarkable. BONES: The bones are intact. ABDOMEN: LIVER: The liver is normal in size and contour. No liver mass is identified. The hepatic and portal veins are patent. GALLBLADDER / BILE DUCTS: The gallbladder is unremarkable. There is no intra or extrahepatic biliary ductal dilatation. SPLEEN: The spleen is normal in size. No focal splenic lesion is identified. PANCREAS: The pancreas is unremarkable in appearance. ADRENAL GLANDS: Within normal limits. KIDNEYS/RETROPERITONEUM: No renal calculi are identified. There is no hydronephrosis. No renal masses are identified. LYMPH NODES: No abdominal or pelvic lymphadenopathy. VASCULATURE: The abdominal aorta demonstrates atherosclerotic calcification, but is normal in caliber. MESENTERY/PERITONEUM: No free fluid. No masses. There is no free intraperitoneal gas. STOMACH: The stomach is collapsed, limiting evaluation. SMALL BOWEL: The small bowel is normal in caliber. COLON: There is a moderate amount of stool throughout the colon. APPENDIX: The appendix is not seen, however no inflammatory changes are seen adjacent to the cecum. URINARY BLADDER/PELVIC ORGANS: The urinary bladder is unremarkable. The prostate is normal in size. BONES / SOFT TISSUES: No suspicious bony or soft tissue abnormalities. CT/CT chest w IV con IMPRESSION: 3 mm right upper and lower lobe pulmonary nodules. Please see Fleischner Society guidelines below. Otherwise unremarkable contrast-enhanced CT of the chest, abdomen and pelvis. Fleischner Criteria for pulmonary nodule follow-up SOLID NODULES: Low risk patient: <6mm: no follow-up 6-8mm: 6 month follow-up CT >8mm: PET/Biopsy/ 3 month follow-up CT High risk patient: <6mm: 12 month follow-up CT 6-8mm: 6 month follow-up CT >8mm: PET/Biopsy/ 3 month follow-up CT SUB-SOLID/GROUNDGLASS NODULES: All patients: > or = 6mm: 6 month follow-up CT *Please note that in patients in the following categories, the Fleischner criteria do not apply: Immunocompromised, lung cancer screening population, age below 35, and patients with known malignancy Electronically signed by: Jean Pierre Adamson MD 12/01/2024 03:15 PM EDT RP Dictated By: Jean Pierre Adamson MD Signed By: <Electronically signed by Jean Pierre Adamson MD in OV> 12/01/24 1515 DD/ 1439 TD/TT: 12/01/24 1501 Calcine Furnace Loader: [facility] External Provider IMG CT PROCEDURES Final Result * (ABNORMAL) T-SPOT??.TB (12/01/2024 11:52 AM EDT) T Spot TB Positive( A) Negative [facility] Comment: Diagnosing or excluding tuberculosis (TB) disease andassessing the probability of latent TB infection (LTBI)requires a combination of epidemiological, historical,medical and diagnostic findings that should be takeninto consideration when interpreting T-SPOT.TB testresults. A positive test result does not rule in activeTB disease caused by Mycobacterium tuberculosis(M. tuberculosis); active TB disease should beconfirmed by other tests such as sputum smear andculture, PCR, and chest radiography.Uncommonly, a positive T-SPOT.TB result may be due toinfection with other Mycobacterium species includingM. kansasii, M. szulgai, M. gordonae, or M. marinum.Alternative tests would be required if these infectionsare suspected.The T-SPOT.TB test is qualitative and results arereported as positive, borderline, or negative, giventhat the test controls perform as expected. In linewith the Centers for Disease Control and Prevention's2010 recommendation to report quantitative measurementsalongside the qualitative result, the laboratoryprovides spot counts for informational purposes only.The T-SPOT.TB test should not be interpreted as aquantitative test. TS PANEL A 18 [facility] TS PANEL B 0 [facility] Negative Control Passed [facility] Positive Control Passed [facility] Comment:For additional infor karla, please refer tohttp://education.Scoutforce/faq/KQU918(This link is being provided for informational/educational purposes only.)REPORT COMMENT:REC'D AT [facility] TEST WAS PERFORMED AT:[facility] [id number] [place] [address]XYROTIYMARISA ESPINAL MD,PHD 12/01/2024 11:5 2 AM EDT 12/01/2024 11:56 AM EDT us Generic External Data Provider LAB BLOOD ORDERAB LES Final Result [facility] [address] [place] [phone] * SARS-CoV-2 RNA, Influenza A/B, and RSV RNA, Ql NAAT (12/01/2024 10:45 AM EDT) Influenza A PCR NEGATIVE Negative [facility] Influenza B PCR NEGATIVE Negative [facility] Resp Syncy Virus RNA Qual PCR NEGATIVE Negative [facility] SARS COV2 PCR NEGATIVE Negative [facility] Comment:All test results mus t [...] use by authorized laboratories.Testing performed on the [employer] GeneXpert utilizingreal-time RT-PCR.All SARS CoV2 and positive influenza A/B results arereported to [facility]. 12/01/2024 10:4 5 AM EDT 12/01/2024 10:51 AM EDT us Generic External Data Provider LAB MICROBIOLOGY - GENERAL ORDERABLES Final Result Performing Organization Address City/[facility]/ZIP Co de Phone Number [facility] [address] [place] [address] [phone] * (ABNORMAL) Basic Metabolic Panel (12/01/2024 10:45 AM EDT) Sodium 140 135 - 145 mmol/L [facility] Potassium 4.2 3.3 - 5.1 mmol/L [facility] Chloride 102 96 - 108 mmol/L [facility] Carbon Dioxide 32(H) 22 - 29 mmol/L [facility] Anion Gap 10(L) 12 - 20 [facility] Urea Nitrogen (BUN) 22(H) 9 - 16 mg/dL [facility] Creatinine, Serum 1.15 0.5 - 1.4 mg/dL [facility] Creatinine Clr Calc Pharmacy 61.3 [facility] Comment:eGFR (calculated fro m the MDRD study equation) and eCrCl(calculated from the Cockcroft-Gault equation) are based ondifferent parameters and may not yield comparable results.If eCrCl result is absurd, please check patient'sheight/weight. Estimated Glomerular Filt Rate >60 [facility] Comment:Chronic Kidney Disea se: Estimated GFR < 60 mL/min/1.06x9Laivzi Kidney Disease: Estimated GFR < 15 mL/min/1.73m2 Glucose 104 60 - 115 mg/dL [facility] Calcium 9.4 8.4 - 10.2 mg/dL [facility] 12/01/2024 10:4 5 AM EDT 12/01/2024 10:51 AM EDT us Generic External Data Provider LAB BLOOD ORDERAB LES Final Result [facility] [address] [place] [address] [phone] * XR Chest 2 Views (12/01/2024 10:33 AM EDT) Only the most recent of2 resultswithin the time period is included. Anatomical Region Laterality Modality Chest Radiographic Cecelia ging 12/01/2024 10:3 3 AM EDT Narrative 12/01/2024 10:46 AM EDT ? [facility] ?[address] ?[place] [address] ?XRay Report ? Signed ? Patient: John Fitzpatrick ?MR#: ?? [id number] ? : 1970 ?Acct:[id number] ? Age/Sex: 54 / M ?ADM Date: 12/01/24 ? Loc: HO.ED ? Attending Dr: ? Ordering Physician: Generic ED Physician ?? Date of Service: 12/01/24 ?? Procedure(s): XR chest 2V ?? Accession Number(s): [id number] ? cc: Generic ED Physician; [facility] ? EXAMINATION: ?? XR CHEST ? [...] DD/ 1033 ? TD/TT: 12/01/24 1040 ? Calcine Furnace Loader: ? Procedure Note Marilyn, Image - 12/01/2024 [facility] [address] [place] [address] XRay Report Signed Patient: John Fitzpatrick [facility]#: [id number] : 1970Acct:[id number] Age/Sex: 54 / MADM Date: 12/01/24 Loc: .ED Attending Dr: Ordering Physician: Generic ED Physician Date of Service: 12/01/24 Procedure(s): XR chest 2V Accession Number(s): [id number] cc: Generic ED Physician; [facility] [employer] EXAMINATION: XR CHEST CLINICAL INFORMATION: sob COMPARISON: [...] Darryl Zaidi MD 12/01/2024 10:43 AM EDT Dictated By: Darryl Rey MD Signed By: <Electronically signed by Darryl Lynn MDin OV> 12/01/24 1043 DD/ 1033 TD/TT: 12/01/24 1040 Calcine Furnace Loader: [facility] External Provider IMG XR PROCEDURES Final Result * US Abdomen Limited (11/04/2024 11:49 AM EST) Anatomical Region Laterality Modality Abdomen Ultrasound 11/04/2024 11:4 9 AM EST Narrative 11/04/2024 12:32 PM EST ? [facility] ?[address] ?[place] [address] ? Ultrasound Report ? Signed ? Patient: Jr Ro,Jean ?MR#: ?? [id number] ? : 1970 ?Acct:[id number] ? Age/Sex: 54 / M ?ADM Date: 03/04/25 ? Loc: HO.ED ? Attending Dr: ? Ordering Physician: Lorena Banks DO ?? Date of Service: 11/04/24 ?? Procedure(s): US abdomen limited ?? Accession Number(s): [id number] ? cc: Lorena Banks DO; [facility] [employer] ? EXAMINATION: ?? US ABDOMEN LIMITED ? [...] DD/ 1149 ? TD/TT: 11/04/24 1202 ? Calcine Furnace Loader: ? Procedure Note Leonard Sanders - 11/04/[address] [address] Ultrasound Report Signed Patient: Jr RoDonyaJohn [facility]#: [id number] : 1970Acct:[id number] Age/Sex: 54 / MADM Date: 11/04/24 Loc: HO.ED Attending Dr: Ordering Physician: Lorena Banks DO Date of Service: 11/04/24 Procedure(s): US abdomen limited Accession Number(s): [id number] cc: Lorena Banks DO; [facility] EXAMINATION: US ABDOMEN LIMITED CLINICAL INFORMATION: [...] 11/04/24 1228 DD/ 1149 TD/TT: 11/04/24 1202 Calcine Furnace Loader: [facility] External Provider IMG US PROCEDURES Final Result * XR Knee 4+ Views Right (10/10/2024 2:37 PM EST) Anatomical Region Laterality Modality Lower Extremities, Knee Right Radiogra phic Imaging 10/10/2024 2:37 PM EST Narrative 10/10/2024 3:12 PM EST ? [facility] ?[address] ?[place] [address] ?XRay Report ? Signed ? Patient: John Fitzpatrick ?MR#: ?? [id number] ? : 1970 ?Acct:[id number] ? Age/Sex: 54 / M ?ADM Date: 10/10/24 ? Loc: HO.CARD ? Attending Dr: Pepper Balderrama MD ? Ordering Physician: Haily Robb ?? Date of Service: 10/10/24 ?? Procedure(s): XR knee RT 4V ?? Accession Number(s): [id number] ? cc: Haily Robb ? EXAMINATION: ?? [...] DD/ 1437 ? TD/TT: 10/10/24 1502 ? Calcine Furnace Loader: ? Procedure Note Leonard Sanders - 10/10/[address] [address] XRay Report Signed Patient: John Fitzpatrick [facility]R#: [id number] : 1970Acct:[id number] Age/Sex: 54 / MADM Date: 10/10/24 Loc: YOGESH Attending Dr: Pepper Balderrama MD Ordering Physician: Haily Robb [facility] Date of Service: 10/10/24 Procedure(s): XR knee RT 4V Accession Number(s): [id number] cc: [facility] EXAMINATION: XR KNEE, RIGHT CLINICAL INFORMATION: chronic [...] 10/10/24 1509 DD/ 1437 TD/TT: 10/10/24 1502 Calcine Furnace Loader: [facility] [employer] IMG XR PROCEDURES Final Resul t * XR Knee 4+ Views Left (10/10/2024 2:37 PM EST) Anatomical Region Laterality Modality Lower Extremities, Knee Left Radiogra phic Imaging 10/10/2024 2:37 PM EST Narrative 10/10/2024 3:12 PM EST ? [facility] ?[address] ?[place] [address] ?XRay Report ? Signed ? Patient: John Fitzpatrick ?MR#: ?? [id number] ? : 1970 ?Acct:[id number] ? Age/Sex: 54 / M ?ADM Date: 10/10/24 ? Loc: HO.CARD ? Attending Dr: Pepper Balderrama MD ? Ordering Physician: Haily Robb [employer] ?? Date of Service: 10/10/24 ?? Procedure(s): XR knee LT 4V ?? Accession Number(s): [id number] ? cc: Haily Robb [employer] ? EXAMINATION: ?? XR KNEE, LEFT ? [...] DD/ 1437 ? TD/TT: 10/10/24 1502 ? Calcine Furnace Loader: ? Procedure Note Donjosefinater, Image - 10/10/[address] [address] XRay Report Signed Patient: John Fitzpatrick [facility]R#: [id number] : 1970Acct:[id number] Age/Sex: 54 / MADM Date: 10/10/24 Loc: YOGESH Attending Dr: Pepper Balderrama MD Ordering Physician: [facility] Date of Service: 10/10/24 Procedure(s): XR knee LT 4V Accession Number(s): [id number] cc: [facility] EXAMINATION: XR KNEE, LEFT CLINICAL INFORMATION: [...] by: Darryl Zaidi MD 10/10/2024 03:10 PM [facility] Dictated By: Darryl Rey MD Signed By: <Electronically signed by Darryl Lynn MDin OV> 10/10/24 1510 DD/ 1437 TD/TT: 10/10/24 1502 Calcine Furnace Loader: us Haily Clarisse [employer] IMG XR PROCEDURES Final Resul t * Hemoglobin A1c (06/20/2024 3:05 PM EDT) Hemoglobin A1c 5.7 <6.0 % [facility] Comment:Hemoglobin A1C Refer ence Range Adults: 4.8 - 6.0 % Non diabetic: < 6.0 % Goal: < 7.0 %Additional Action Suggested: > 8.0 %Note: Hemoglobin A1c results are invalid for patients with abnormal amounts of HbF. Blood transfusions may impact the HbA1c concentration in the patient sample. Estimated Average Glucose 117 mg/dL [facility] Comment:eAG = Estimated ave rage glucose which is %A1C expressed asaverage glucose, using the formula of the V7A-AnpjqfiGwhgvcm Glucose study (ADAG), Diabetes Care, Vol.31,#8,Apr. 2007 Blood Venous blood specimen / Unknown 06/20/2024 3:05 PM EDT 06/20/2024 4:21 PM EDT [facility] LAB BLOOD ORDERABLES Final Resul t [facility] [address] [place] [phone] * Lipid Panel, Standard (03/19/2024 9:34 AM EDT) Triglycerides 66 <150 mg/dL [facility] Comment:Desirable Triglyceri de: less than 150 mg/dLBorderline High Triglyceride 150-199 mg/dLHigh Triglyceride: 200-499 mg/dLVery High Triglyceride: greater than or equal to 5OO mg/dL Cholesterol 112 <200 mg/dL [facility] Comment:Desirable Cholestero l: less than 200 mg/dLBorderline High Cholesterol: 200-239 mg/dLHigh Cholesterol: greater than 239 mg/dL LDL Cholesterol Calculated 58 <100 mg/dL [facility] Comment:Desirable LDL: less than 100 mg/dLNear Optimal/Above Optimal LDL: 110- 129 mg/dLBorderline High LDL: 130-159 mg/dLHigh LDL: 160-189 mg/dLVery High LDL: greater than or equal to 190 mg/dL HDL Cholesterol 41 >40 mg/dL [facility] Comment:Desirable HDL: great er than 40 mg/dL Note: This HDL assay may give artificially low results in patients with liver disease. Blood Venous blood specimen / Unknown 03/19/2024 9:34 AM EDT 03/19/2024 11:12 AM EDT Roxana Gotti DO LAB BLOOD ORDERABLES Final R esult Performing Organization Address [facility] de Phone Number [facility] [address] [place] [phone] * Hepatitis C Viral RNA, Quantitative, Real-Time PCR (03/22/2023 11:53 AM EDT) Hepatitis C Viral Load <15 NOT DETECTED NOT DETECTED IU/mL [facility] HCV Log PCR <1.18 NOT DETECTED NOT DETECTED Log IU/mL [facility] Comment:This test was perfor med using Real-Time Polymerase ChainReaction.Reportable Range: 15 IU/mL to 100,000,000 IU/mL(1.18 Log IU/mL to 8.00 Log IU/mL).The analytical performance characteristics of thisassay have been determined by [employer].The modifications have not been cleared or approved bythe FDA. This assay has been validated pursuant to theCLIA regulations and is used for clinical purposes.For more information on this test, go to:http://education.Scoutforce/faq/EKR93k1(This link is being provided for informational/educational purposes only.)THIS TEST WAS PERFORMED AT:[facility] [place] [phone] GONG MD Blood 03/22/2023 11:5 3 AM EDT 03/22/2023 1:32 PM EDT us Jessica Guillen [employer] LAB BLOOD ORDERABLES Final Res ult Performing Organization Address [facility] Co de Phone Number [facility] [address] [place] [phone] * HIV-1 RNA, Quantitative, Real-Time PCR (03/22/2023 11:53 AM EDT) HIV RNA PCR Qn Copies NOT DETECTED NOT DETECTED copies/mL [facility] HIV RNA PCR Qn Log Copies NOT DETECTED NOT DETECTED [facility] Comment:Result Units: Log co pies/mLThis test was performed using Real-Time Polymerase ChainReaction.Reportable Range: 20 copies/mL to 10,000,000 copies/mL(1.30 log copies/mL to 7.00 log copies/mL).THIS TEST WAS PERFORMED AT:[facility] [place] [phone] GONG MD Blood Venous blood specimen / Unknown 03/22/2023 11:53 AM EDT 03/22/2023 1:32 PM EDT Jessica Guillen [employer] LAB BLOOD ORDERABLES Final Res ult [facility] [address] [place] [address] [phone] from Last 3 Months or Most Recently Relevant to Health Maintenance Insurance [facility] C[place] AD[place] Care Teams Installations Inspector Relationship Specialty Start Date End Date Haliy Robb FNP [address] [place] [phone] PCP - General Family Medicine 05/01/22
--- OUTSIDE RECORDS SUMMARY | 2024-12-12 15:48 | XMS_ITS | Encounter Summary ---
Author Organization [employer] Address [address] [place] [address] Care Team Providers Care Equalizer Operator Name Role Phone Harper [facility] Primary Care Provider [phone] Reason for Visit * Reason Comments Med Refill Encounter Details Date Type Department Care Team ([facility] st Contact Info) Description 07/08/2024 Refill [facility] [address] [place], [place] [phone] [facility] [address] [place] [address] Mixed anxiety and depressive disorder Social History [...] Description 12/15/2024 11:30 AM EDT Office Visit [facility] [address] [place] [address] [facility] [address] [place] [address] 04/24/2025 1:00 PM EDT Office Visit [facility] [address] [place] [address] Zachariah, Claudette [address] [place] [address] documented as of this encounter Goals Goal [...] documented as of this encounter Care Teams Equalizer Operator Relationship Specialty Start Date End Date Clarisse ANETA Johansen [address] [place] [phone] PCP - General Family Medicine 05/01/22 documented as of this encounter
--- OUTSIDE RECORDS SUMMARY | 2024-12-12 15:48 | XMS_ITS | Encounter Summary ---
Author Organization [employer] Address [address] [facility] 7t [place] [address] Care Team Providers Care Plasticator Name Role Phone [facility] Primary Care Provider Reason for Visit * Reason Comments Med Refill Encounter Details Date Type Department Care Team ([facility] st Contact Info) Description 09/05/2022 Telephone [facility] MEDICINE [address] [place], [place] 1974140 [facility] 230 [place] [address] Med Refill Social History Tobacco Use Types [...] - 09/06/2022 8:18 AM EST TC via P/I#[id number], explained to pt that his [facility] Provided pt the phone number for the [facility] site and encouraged him to call them for all refills of his Clonazepam. Pt thanked adjusto writer operator and said he understood. * Telephone Encounter - Yessi Cannon RN - 09/05/2022 3:04 PM EST Note on 08/02/22: Medication request:CLONAZEPAM Last visit 06/27/22. You sent a refill in June, it was picked up 07/12/22. He was originally getting this elsewhere. Not sure what you'd like to do. If you'll now be prescribing, then would you like him on WEB PRODUCTION ARTIST? documented in this encounter Plan of Treatment Upcoming Encounters Date Type Department Care Team (Late st Contact Info) Description 12/15/2024 11:30 AM EDT Office Visit [facility] MEDICINE [address] [place] [address] Haily Robb FNP 230 [place] [address] 04/24/2025 1:00 PM EDT Office Visit [facility] ADULT DENTAL [address] [place] [address] Claudette Soni 230 [place] [address] documented as of this encounter Visit Diagnoses Diagnosis Other specified anxiety disorders documented in this encounter Care Teams Plasticator Relationship Specialty Start Date End Date Haily Robb FNP 230 [place] [address] PCP - General Family Medicine 05/01/22 documented as of this encounter
--- OUTSIDE RECORDS SUMMARY | 2024-12-12 15:48 | XMS_ITS | Encounter Summary ---
Author Organization [employer] Address [address] [facility] 7t [place] [address] Care Team Providers Care Southeast Regional Sales Manager Name Role Phone Clarisse [facility] Primary Care Provider [phone] Reason for Visit * Reason Onset Date Comments Appointment Request 10/08/2023 Encounter Details Date Type Department Care Team ([facility] st Contact Info) Description 10/08/2023 Telephone [facility] MED[facility]INE 230 [place], [place] [phone] [place] [facility] 230 [place] [address] Appointment Request Social History Tobacco Use Types [...] the past 12 months, has t he [employer], gas, oil or water company threatened to [...] gotten any better. Please contact pt at [phone] documented in this encounter Plan of Treatment Upcoming Encounters Date Type Department Care Team (Late st Contact Info) Description 12/15/2024 11:30 AM EDT Office Visit [facility] MED[facility]INE 230 [place] [address] [place], Haily, UNDERWRITING INTERN [address] [place] [address] 04/24/2025 1:00 PM EDT Office Visit [facility] ADULT DENTAL 230 [place] [address] Claudette Soni 230 [place] [address] documented as of this encounter Visit Diagnoses Not on filedocumented in this encounter Additional Health Concerns Assessment Noted Time PHQ-9 Depression Total Score: 0 08/15/20 23 3:52 PM EST documented as of this encounter Care Teams Southeast Regional Sales Manager Relationship Specialty Start Date End Date Haily Robb FNP 230 [place] [address] PCP - General Family Medicine 05/01/22 documented as of this encounter
--- OUTSIDE RECORDS SUMMARY | 2024-12-12 15:48 | XMS_ITS | Encounter Summary ---
Author Organization [employer] Address [address] [facility] [address] 7t [place] [address] Care Team Providers Care Factory Superintendent Name Role Phone Clarisse [facility] Primary Care Provider [phone] Reason for Visit * Reason Onset Date Comments triage 11/10/2022 Encounter Details Date Type Department Care Team ([facility] st Contact Info) Description 11/10/2022 Telephone [facility] MEDICINE 230 [place], [place] [phone] [facility] 230 [place] [address] triage Social History Tobacco Use Types Packs/Day [...] in office. Pt agrees to come into [facility] for exam. Pt also advised to [...] question The caller accepted this outcome speaks japanese documented in this encounter Plan of Treatment Upcoming Encounters Date Type Department Care Team (Late st Contact Info) Description 12/15/2024 11:30 AM EDT Office Visit [facility] MEDICINE 230 [place] [address] [place], Haily, COURTESY VAN DRIVER 230 [place] [address] 04/24/2025 1:00 PM EDT Office Visit [facility] ADULT DENTAL 230 [place] [address] Claudette Soni [address] [place] [address] documented as of this encounter Visit Diagnoses Not on filedocumented in this encounter Additional Health Concerns Assessment Noted Time PHQ-9 Depression Total Score: 0 11/03/19 23 10:32 AM EST documented as of this encounter Care Teams Factory Superintendent Relationship Specialty Start Date End Date Haily Robb FNP [address] [place] [address] PCP - General Family Medicine 05/01/22 documented as of this encounter
--- OUTSIDE RECORDS SUMMARY | 2024-12-12 15:49 | XMS_ITS | Encounter Summary ---
Author Organization [employer] Address [address] [facility] [facility] [facility] [address] 7t [place] [address] Care Team Providers Care Grain Elevator Superintendent Name Role Phone Haily Robb Primary Care Provider [phone] Encounter Details Date Type Department Care Team (Latest Contact Info) Description 06/16/2020 Abstract [facility] CONVERSIONS Dental, Provider, DDS Social History [...] Upcoming Encounters Date Type Department Care Team ( st Contact Info) Description 12/15/2024 11:30 AM EDT Office Visit [facility] MEDICINE 230 [place] [address] Haily Robb FNP 230 [place] [address] 04/24/2025 1:00 PM EDT Office Visit [facility] ADULT DENTAL 230 [place] [address] Zachariah Claudette 230 [place] [address] documented as of this encounter Visit Diagnoses Not on filedocumented in this encounter Care Teams Grain Elevator Superintendent Relationship Specialty Start Date End Date Haily Robb FNP 230 [place] [address] PCP - General Family Medicine 05/01/22 documented as of this encounter
--- OUTSIDE RECORDS SUMMARY | 2024-12-12 15:49 | XMS_ITS | Clinical Summary ---
Author Organization [facility] Address [address] [place] [address] Phone Care Team Providers Care Emergency Room Physician Name Role Phone [facility] Primary Care Provider [phone] Medications polyethylene glycol (Golytely) 236-22.74-6.74 -5.86 gram [...] Vaccine ( - 2023-2 5 season) 2024 Cholesterol Screening (Lipid Panel) 06/16/2024 Colorectal Cancer Screening: Colonoscopy 06/16/2024 Depression Screening 06/16/2024 HIV Screening 06/16/2024 Hepatitis C Screening 06/16/2024 Social Influencers of Health Screening 06/16/2024 Influenza Vaccine (Season Ended) 2025 HIB Vaccines Aged Out No longer eligi [...] age to complete this topic Meningococcal B Vaccine Aged Out No l onger eligible based on patient's age to complete [...] Phone Billing Address Personal/Family Self 1970 [address] [facility] [address] [place] [phone] MEDICAID - [place] Care Teams Emergency Room Physician Relationship Specialty Start Date End Date Haily Robb [address] [phone] PCP - General 05/20/24
--- OUTSIDE RECORDS SUMMARY | 2024-12-12 15:49 | XMS_ITS | Encounter Summary ---
Author Organization [employer] Address [address] [facility] [address] 7t [place] [address] Care Team Providers Care Saw Operator Name Role Phone Haily Robb DIESEL ENGINE ENGINEER Primary Care Provider [phone] Reason for Visit * Reason Comments Med Refill Encounter Details Date Type Department Care Team (Late st Contact Info) Description 04/02/2023 Refill [facility] 230 [place], [place] [phone] Hollis Rutledge MD 230 [place] [address] Social History Tobacco Use Types Packs/Day Years [...] Description 12/15/2024 11:30 AM EDT Office Visit [facility] MEDICINE 230 [place] [address] Haily Robb FNP 230 [place] [address] 04/24/2025 1:00 PM EDT Office Visit [facility] ADULT DENTAL [address] [place], [place] [phone] Claudette Soni 230 [place] [address] documented as of this encounter Visit Diagnoses Not on filedocumented in this encounter Additional Health Concerns Assessment Noted Time PHQ-9 Depression Total Score: 0 01/26/20 23 3:38 PM EDT documented as of this encounter Care Teams Saw Operator Relationship Specialty Start Date End Date Haily Robb FNP 230 [place] [address] PCP - General Family Medicine 05/01/22 documented as of this encounter
--- OUTSIDE RECORDS SUMMARY | 2024-12-12 15:49 | XMS_ITS | Encounter Summary ---
Author Organization [employer] Address 75 [facility] 7t [place] [address] Care Team Providers Care Disc Inspector Name Role Phone Haily Robb COMBINE DRIVER Primary Care Provider [phone] Reason for Visit * Reason Comments Med Refill Encounter Details Date Type Department Care Team (Late st Contact Info) Description 04/02/2023 Refill [facility] MED[facility] [address] [place] [address] Juanjose Barton MD [address] [place] [phone] Chronic pruritus Social History Tobacco Use Types [...] Description 12/15/2024 11:30 AM EDT Office Visit [facility] MEDICINE [address] [place] [address] [phone] Haily Robb FNP 230 [place] [address] 04/24/2025 1:00 PM EDT Office Visit [facility] ADULT DENTAL 230 [place], [place] [phone] Claudette Soni 230 [place], [place] [phone] documented as of this encounter Visit Diagnoses Diagnosis Chronic pruritus documented in this encounter Additional Health Concerns Assessment Noted Time PHQ-9 Depression Total Score: 0 01/26/20 23 3:38 PM EDT documented as of this encounter Care Teams Disc Inspector Relationship Specialty Start Date End Date Haily Robb FNP 230 [place] [address] PCP - General Family Medicine 05/01/22 documented as of this encounter
--- OUTSIDE RECORDS SUMMARY | 2024-12-12 15:49 | XMS_ITS | Encounter Summary ---
Author Organization [employer] Address [address] [facility] [address] 7t [place] [address] Care Team Providers Care Artificial Intelligence Specialist Name Role Phone [place] [facility] Primary Care Provider [phone] Reason for Visit * Reason Comments Med Refill Encounter Details Date Type Department Care Team (Late Contact Info) Description 01/01/2023 Refill [facility] MEDICINE 230 [place], [place] [phone] [facility] 230 [place] [address] Chronic sinusitis, unspecified location Social History Tobacco [...] Department Care Team (Late Contact Info) Description 12/15/2024 11:30 AM EDT Office Visit [facility] MEDICINE 230 [place] [address] Haily Robb FNP 230 [place] [address] 04/24/2025 1:00 PM EDT Office Visit [facility] ADULT DENTAL 230 [place], [place] [phone] Zachariah, Claudette 230 [place] [address] documented as of this encounter Visit Diagnoses Diagnosis Chronic sinusitis, unspecified location documented in this encounter Additional Health Concerns Assessment Noted Time PHQ-9 Depression Total Score: 0 11/03/19 23 10:32 AM EST documented as of this encounter Care Teams Artificial Intelligence Specialist Relationship Specialty Start Date End Date Haily Robb FNP [address] [place] [address] PCP - General Family Medicine 05/01/22 documented as of this encounter
--- OUTSIDE RECORDS SUMMARY | 2024-12-12 15:49 | XMS_ITS | Encounter Summary ---
Author Organization [employer] Address [address] [facility] [address] 7t [place] [address] Care Team Providers Care Bag Tester Name Role Phone Haily Robb Primary Care Provider [phone] Encounter Details Date Type Department Care Team (Latest Contact Info) Description 06/01/2022 Abstract [facility] CONVERSIONS Dental, [...] Description 12/15/2024 11:30 AM EDT Office Visit [facility] MEDICINE 230 [place] [address] Haily Robb FNP 230 [place] [address] 04/24/2025 1:00 PM EDT Office Visit [facility] ADULT DENTAL 230 [place] [address] Zachariah, Claudette 230 [place] [address] documented as of this encounter Visit Diagnoses Not on filedocumented in this encounter Care Teams Bag Tester Relationship Specialty Start Date End Date Haily Robb FNP 230 [place] [address] PCP - General Family Medicine 05/01/22 documented as of this encounter
--- OUTSIDE RECORDS SUMMARY | 2024-12-12 15:49 | XMS_ITS | Encounter Summary ---
Author Organization [employer] Address [address] [facility] [address] 7t [place] [address] Care Team Providers Care Sea Air Land Officer Name Role Phone Clarisse [facility] Primary Care Provider [phone] Reason for Visit * Reason Onset Date Comments Nurse Triage 02/16/2023 Encounter Details Date Type Department Care Team ([facility] st Contact Info) Description 02/16/[address] [facility] MEDICINE 230 [place], [place] [phone] [facility] 230 [place] [address] Nurse Triage Social History Tobacco Use Types [...] - 02/23/2023 2:49 PM EDT T/C to [id number] through [employer] interpreters id - [id number] for below message, pt. Verbally agreed and understood. * Telephone Encounter - Angela Whitman LPN - 02/16/2023 2:48 PM EDT Triage call returned to patient via Access Information Management Maintenance Data Analyst [id number]. Patient called with concerns of Left eye burning and tearing at times with blurred vision. No irritant or object in eye at this time. Patient reports that he was seen some time ago in [facility] [place] and was given order to obtain eye [...] suggested disposition Override Notes: Patient seen in [facility] [place] and was told to use eye drops several months ago. Patient requesting only referral to Spectrographic Analyst. Video visit not offered Positive Triage Question: [...] The caller accepted this outcome Patient speaks mongolian documented in this encounter Plan of Treatment Upcoming Encounters Date Type Department Care Team (Late st Contact Info) Description 12/15/2024 11:30 AM EDT Office Visit [facility] MEDICINE 230 [place] [address] Haily Robb FNP 230 [place] [address] 04/24/2025 1:00 PM EDT Office Visit [facility] ADULT DENTAL 230 [place] [address] Zachariah, Claudette 230 [place] [address] documented as of this encounter Visit Diagnoses Not on filedocumented in this encounter Additional Health Concerns Assessment Noted Time PHQ-9 Depression Total Score: 0 01/26/20 23 3:38 PM EDT documented as of this encounter Care Teams Sea Air Land Officer Relationship Specialty Start Date End Date Haily Robb FNP 230 [place] [address] PCP - General Family Medicine 05/01/22 documented as of this encounter
--- OUTSIDE RECORDS SUMMARY | 2024-12-12 15:49 | XMS_ITS | Encounter Summary ---
Author Organization [employer] Address [address] [facility] 7t [place] [address] Care Team Providers Care Duty Manager Name Role Phone [place] [facility] Primary Care Provider [phone] Reason for Visit * Reason Onset Date Comments Med Refill 12/13/2023 Encounter Details Date Type Department Care Team ([facility] st Contact Info) Description 12/13/2023 Telephone [facility] MEDICINE 230 [place], [place] [phone] [facility] 230 [place] [address] Med Refill Social History Tobacco Use Types [...] the past 12 months, has t he [email or web address], gas, oil or water company threatened to [...] 10:24 AM EDT Medication was sent to [facility] on 11/09/23 with 2 refills. * Telephone Encounter - Christine Taylor - 12/13/2023 10:19 AM EDT TC from pt requesting medication refill. Medications needing refill : melatonin 5 MG tablet To be sent to: [facility] [place], [place] - [address] [facility] documented in this encounter Plan of Treatment Upcoming Encounters Date Type Department Care Team (Late st Contact Info) Description 12/15/2024 11:30 AM EDT Office Visit [facility] MEDICINE 230 [place] [address] [place], Haily, [facility] 230 [place], [place] [phone] 04/24/2025 1:00 PM EDT Office Visit [facility] ADULT DENTAL 230 [place] [address] Claudette Soni 230 [place] [address] documented as of this encounter Visit Diagnoses Not on filedocumented in this encounter Additional Health Concerns Assessment Noted Time PHQ-9 Depression Total Score: 0 08/15/20 23 3:52 PM EST documented as of this encounter Care Teams Duty Manager Relationship Specialty Start Date End Date Haily Robb FNP 230 [place] [address] PCP - General Family Medicine 05/01/22 documented as of this encounter
--- OUTSIDE RECORDS SUMMARY | 2024-12-12 15:49 | XMS_ITS | Encounter Summary ---
Author Organization [employer] Address [address] [facility] [address] [address] 7t [place] [address] Care Team Providers Care Pipe Blanks Cut Off Saw Operator Name Role Phone Clarisse [facility] Primary Care Provider [phone] Reason for Visit * Reason Onset Date Comments Results 03/16/2023 Encounter Details Date Type Department Care Team ([facility] st Contact Info) Description 03/16/2023 Telephone [facility] MEDICINE 230 [place], [place] [phone] [place] [facility] 230 [place] [address] Results Social History Tobacco Use Types Packs/Day [...] 03/20/2023 4:06 PM EDT Return T/C to [phone] for below message, No answer. LVM to call back on [phone]. * Telephone Encounter - Kelli Boucher - 03/16/2023 2:04 PM EDT Tc from pt requesting a call in regards to results to recent lab orders. Please contact pt at [phone] (Greenlandic speaker) documented in this encounter Plan of Treatment Upcoming Encounters Date Type Department Care Team (Late st Contact Info) Description 12/15/2024 11:30 AM EDT Office Visit [facility] MEDICINE 230 [place], [place] [phone] [place] F[place] 230 [place] [address] 04/24/2025 1:00 PM EDT Office Visit [facility] ADULT DENTAL 230 [place] [address] Claudette Soni 230 [place] [address] documented as of this encounter Visit Diagnoses Not on filedocumented in this encounter Additional Health Concerns Assessment Noted Time PHQ-9 Depression Total Score: 0 01/26/20 23 3:38 PM EDT documented as of this encounter Care Teams Pipe Blanks Cut Off Saw Operator Relationship Specialty Start Date End Date Haily Robb FNP 230 [place] [address] PCP - General Family Medicine 05/01/22 documented as of this encounter
--- OUTSIDE RECORDS SUMMARY | 2024-12-12 15:49 | XMS_ITS | Encounter Summary ---
Author Organization [employer] Address 75 [facility] 7t [place] [address] Care Team Providers Care Weld Inspector Name Role Phone Clarisse [facility] Primary Care Provider [phone] Reason for Visit * Reason Onset Date Comments Nurse Triage 02/11/2024 Encounter Details Date Type Department Care Team ([facility] st Contact Info) Description 02/11/2024 Telephone [facility] MEDICINE 230 [place], [place] [phone] [facility] 230 [place] [address] Nurse Triage Social History Tobacco Use Types [...] with others, in a hotel, in a senior care, living outside on the street, on a [...] the past 12 months, has t he [employer], gas, oil or water company threatened to [...] EDT Triage call returned to patient with [place] acid operator [id number]. Patient reports ongoing issue withleft eye and [...] and she would like him referred to [facility] Candle Wrapping Machine Operator. No diagnosis in chart.Advised of [facility] for evaluation today. Lab [...] Reason: Other Override Notes: Being treated with radiation protection specialist with appt coming in 03/11/24 Video [...] involuntary movements The caller accepted this outcome Thai speaker documented in this encounter Plan of Treatment Upcoming Encounters Date Type Department Care Team (Late st Contact Info) Description 12/15/2024 11:30 AM EDT Office Visit [facility] MEDICINE 230 [place] [address] Haily Robb FNP 230 [place] [address] 04/24/2025 1:00 PM EDT Office Visit [facility] ADULT DENTAL 230 [place] [address] Kailash Soniaris 230 [place] [address] documented as of this encounter Goals Goal Patient Goal Type Associated Problems Recent Progress Patient-Stated? Author Patient will adhere to medication regimen General No Mary Moreland documented as of this encounter Visit Diagnoses Not on filedocumented in this encounter Additional Health Concerns Assessment Noted Time PHQ-9 Depression Total Score: 0 08/15/20 23 3:52 PM EST documented as of this encounter Care Teams Weld Inspector Relationship Specialty Start Date End Date Haily Robb FNP [address] [place] [address] PCP - General Family Medicine 05/01/22 documented as of this encounter
--- OUTSIDE RECORDS SUMMARY | 2024-12-12 15:49 | XMS_ITS | Encounter Summary ---
Author Organization [employer] Address [address] [facility] [address] 7t [place] [address] Care Team Providers Care Fleet Administrator Name Role Phone [facility] Primary Care Provider [phone] Reason for Visit * Reason Comments Med Refill Encounter Details Date Type Department Care Team ([facility] st Contact Info) Description 08/28/2024 Refill [facility] MEDICINE 230 [place], [place] [phone] [facility] 230 [place] [address] Mixed anxiety and depressive disorder Social History [...] Description 12/15/2024 11:30 AM EDT Office Visit [facility] MEDICINE 230 [place] [address] [facility] 230 [place] [address] 04/24/2025 1:00 PM EDT Office Visit [facility] ADULT DENTAL 230 [place] [address] Zachariah, Claudette 230 [place] [address] documented as of this encounter Goals Goal [...] documented as of this encounter Care Teams Fleet Administrator Relationship Specialty Start Date End Date Clarisse ANETA Johansen [address] [place] [address] PCP - General Family Medicine 05/01/22 documented as of this encounter
--- OUTSIDE RECORDS SUMMARY | 2024-12-12 15:49 | XMS_ITS | Encounter Summary ---
Author Organization [employer] Address [address] [place] [address] Care Team Providers Care Donations Attendant Name Role Phone [facility] Primary Care Provider [phone] Reason for Visit * Reason Onset Date Comments Medication Question 01/16/2023 Encounter Details Date Type Department Care Team ([facility] st Contact Info) Description 01/16/2023 Telephone [facility] MEDICINE [address] [place], [place] [phone] [facility] 230 [place] [address] Medication Question Social History Tobacco Use Types [...] Office Visit [facility] MED[facility] [address] [place] [address] Haily Robb FNP [address] [place] [address] 04/24/2025 1:00 PM EDT Office Visit [facility] ADULT DENTAL [address] [place] [address] Claudette Soni [address] [place] [address] documented as of this encounter Visit Diagnoses Not on filedocumented in this encounter Additional Health Concerns Assessment Noted Time PHQ-9 Depression Total Score: 0 11/03/19 23 10:32 AM EST documented as of this encounter Care Teams Donations Attendant Relationship Specialty Start Date End Date Haily Robb FNP 230 [place] [address] PCP - General Family Medicine 05/01/22 documented as of this encounter
[2024-12-12 16:29] VITALS: BP 111/77; PULSE 74; RESP 18; TEMP 37.2; O2SAT 100
[2024-12-12 16:37] VITALS: BP 111/77; PULSE 74; RESP 18; TEMP 37.2; O2SAT 100
== END 2024-12-12 16:41 | disposition home or self-care (01) ==
PROVIDERS: Nurse Practitioner Family; Emergency Provider Emergency Medicine; PCP Registered Nurse
DX: R10.32 Left lower quadrant pain (principal); F17.210 Nicotine dependence, cigarettes, uncomplicated; Z79.899 Other long term (current) drug therapy
CPT/HCPCS: 36415; 80053; 81003; 83690; 85025; 99283; 99284

== ENCOUNTER 2024-12-30 11:05 | Outpatient (AMB) | payer MEDICAID, SELFPAY ==
[2024-12-30 11:10] VITALS: BP 110/64; PULSE 84; O2SAT 96; BMI 22.7
--- NOTE | 2024-12-30 11:10 | HO.NEPHOV_ITS ---
Vital Signs 12/30/24 11:10 Height 5 ft 6 in Weight 140 lb 8 oz BMI 22.7 BP 110/64 Blood Pressure Location Lt brachial Position Sitting Pulse 84 Pulse Source Pulse Oximeter Pulse Oximetry (%) 96 Oxygen Delivery Method Room Air Intake Visit Reasons: Rscng 12/18 appt [employer] Required: Yes [employer] Language: [employer] Products Installer Name: Rodolfo([id number]) Accompanied by: Significant Other Allergies SEAFOOD Allergy (Severe, Uncoded 12/30/24 11:21) ANAPHYLAXIS shellfish Allergy (Severe, Uncoded 12/30/24 11:21) Anaphylaxis Medication List - Last Reconciled 12/30/24 by Jesus Denise MD albuterol sulfate 90 mcg/actuation (Ventolin HFA) 2 puffs inhalation Q4H PRN ascorbic acid (vitamin C) (Vitamin C) 500 mg PO DAILY bisacodyl (Dulcolax (bisacodyl)) 10 mg (2 x 5 mg) PO ONCE 1 day cetirizine 10 mg PO DAILY PRN cholecalciferol (vitamin D3) (Vitamin D3) 50 mcg PO DAILY clonazepam 1 mg PO DAILY clonazepam 1 mg PO BID PRN diazepam (Valium) 5 mg PO BID PRN docusate sodium (Colace) 200 mg (2 x 100 mg) PO BEDTIME 30 days ferrous sulfate (FeroSul) 325 mg PO DAILY fluoxetine 20 mg PO QAM fluticasone propionate 50 mcg/actuation (Flonase Allergy Relief) 1 spray i ntranasal DAILY furosemide (Lasix) 20 mg PO DAILY hydroxyzine HCl 25 mg PO TID PRN ibuprofen 400 mg PO Q6H PRN ibuprofen 600 mg PO Q8H PRN lidocaine 5% (Lidoderm) 0 patches topical melatonin 5 - 10 mg PO BEDTIME PRN methadone 36 mg PO DAILY mirtazapine 15 mg PO BEDTIME multivitamin 1 tab PO QAM needle (disp) 18 G (BD Regular [place]) As directed to draw testosterone needle (disp) 22 G As directed to inject testosterone nicotine 0 patches topical nicotine (polacrilex) 2 mg PO omeprazole 40 mg PO QAM phenylephrine HCl (Sudafed PE) 10 mg PO Q6H PRN polyethylene glycol 3350 (Miralax) 238 grams PO ONCE 1 day rosuvastatin 10 mg PO QAM sennosides (senna) 17.2 mg PO DAILY simethicone (Gas Relief Extra Strength) 125 mg PO BEDTIME sucralfate (Carafate) 10 mL PO BID 14 days syringe (disposable) (BD Luer-Vira Syringe) As directed 1 syringe [id number] 2 syringes total per month for T injection tamsulosin 0.8 mg (2 x 0.4 mg) PO BEDTIME 90 days testosterone cypionate 200 mg IM Q2W 28 days trazodone 25 mg PO BEDTIME HPI Comments Details: 54-year-old male with medical history significant for BPH, UTI, GERD, substance abuse on methadone, mental health issues presents for evaluation of multiple complaints. Referred for proteinuria. He was recently hospitalized and had a urinary retention. [place] catheter was inserted [facility]. He has been followed by Urology. Accompanied by caregiver History of drug abuse.He had he relapsed in March of 2024. Currently he is on methadone. 09/19/24;overall doing well;No gross heamturia;No edema 12/30/24 : c/o leg swelling on and off. No hematuria PFSH Medical History Anemia Hx of substance abuse Smoker History of Helicobacter pylori infection Spinal pain Hypogonadism Erectile dysfunction Hx: UTI (urinary tract infection) BPH (benign prostatic hyperplasia) Hx of hepatitis C GERD (gastroesophageal reflux disease) Anxiety and depression HTN (hypertension) Murmur Surgical History Hx of cystoscopy Family History Mother Diabetes Social History Alcohol intake: former Patient Tobacco Use Status: Current everyday Tobacco user Substance Use Type: Crack/Cocaine and Heroin Current occupational status: unemployed Physical Exam Vital Signs: Last Vital Signs Pulse 84 12/30/24 11:10 BP 110/64 12/30/24 11:10 Pulse Ox 96 12/30/24 11:10 Oxygen Delivery Method Room Air 12/30/24 11:10 BMI result Body Mass Index 22.7 Results Reviewed Nephrology Results: Hgb 14.1 g/dl (14.0-18.0) 12/12/24 WBC 5.9 X10*3/uL (4.8-10.8) 12/12/24 Plt Count 195 X10*3/uL (160-400) 12/12/24 Sodium 140 mmol/L (135-145) 12/12/24 Potassium 4.3 mmol/L (3.3-5.1) 12/12/24 Chloride 99 mmol/L (96-108) 12/12/24 Carbon Dioxide 35 mmol/L (22-29) H 12/12/24 BUN 13 mg/dL (9-16) 12/12/24 Creatinine 0.93 mg/dL (0.5-1.4) 12/12/24 Calcium 9.4 mg/dL (8.4-10.2) 12/12/24 Urine Protein Negative mg/dL (Neg-Trace) 12/12/24 Assessment & Plan Assessment & Plan (1) BPH (benign prostatic hyperplasia): Code(s): N40.0 - Benign prostatic hyperplasia without lower urinary tract symptoms Category: Medical (2) Proteinuria: Code(s): R80.9 - Proteinuria, unspecified Category: Medical Plan 54-year-old man with substance abuse has minimal proteinuria. Renal function is normal with a serum creatinine 0.95. Imaging was unremarkable. No significant proteinuria UA is benign P-ANCA positive Repeat ordered for follow up Cr stable and < 0.9 Orders: Orders Myeloperoxidase Antibody Today R80.9 - Proteinuria, unspecified Neutrophil Cytoplasma Ab Today R80.9 - Proteinuria, unspecified Proteinase 3 PR3 Antibodies Today R80.9 - Proteinuria, unspecified Coding Level of Care Code Est Pt Level 4 (55968) Diagnoses BPH (benign prostatic hyperplasia) N40.0 Proteinuria R80.9
--- OUTSIDE RECORDS SUMMARY | 2024-12-30 12:56 | XMS_ITS | Encounter Summary ---
Author Organization [employer] Address [address] [place] [address] Care Team Providers Care Freight Flow Sales Leader Name Role Phone [facility] Primary Care Provider [phone] Reason for Visit * Reason Comments Med Refill Encounter Details Date Type Department Care Team ([facility] st Contact Info) Description 07/08/2024 Refill [facility] [address] [place], [place] [phone] [facility] [address] [place] [address] Mixed anxiety and depressive disorder Social History [...] Description 04/24/2025 1:00 PM EDT Office Visit [facility] ADULT [facility] [address] [place] [address] Zachariah, Claudette [address] [place] [address] documented as of this encounter Goals Goal [...] Date End Date Haily Robb FNP [address] [place] [address] PCP - General Family Medicine 05/01/22 documented as of this encounter
--- OUTSIDE RECORDS SUMMARY | 2024-12-30 12:57 | XMS_ITS | Encounter Summary ---
Author Organization [employer] Address [address] 7[address] [place] [address] Care Team Providers Care Sales Person Name Role Phone Haily Robb OCCUPATIONAL HEALTH COORDINATOR Primary Care Provider [phone] Reason for Visit * Reason Comments Med Refill Encounter Details Date Type Department Care Team (Late st Contact Info) Description 04/02/2023 Refill [facility] [address] [place] [address] Hollis Rutledge MD [address] [place] [address] Social History Tobacco Use Types Packs/Day Years [...] [facility] [address] [place] [address] Claudette Soni [address] [place] [address] documented as of this encounter Visit Diagnoses Not on filedocumented in this encounter Additional Health Concerns Assessment Noted Time PHQ-9 Depression Total Score: 0 01/26/20 23 3:38 PM EDT documented as of this encounter Care Teams Sales Person Relationship Specialty Start Date End Date Haily Robb FNP [address] [place] [address] PCP - General Family Medicine 05/01/22 documented as of this encounter
--- OUTSIDE RECORDS SUMMARY | 2024-12-30 12:57 | XMS_ITS | Encounter Summary ---
Author Organization [employer] Address [address] [place] [address] Care Team Providers Care Cognos Bi Administrator Name Role Phone [facility] Primary Care Provider [phone] Reason for Visit * Reason Comments Med Refill Encounter Details Date Type Department Care Team (Late Contact Info) Description 01/01/[address] [facility] MEDICINE [address] [place], [place] [phone] [facility] 230 [place] [address] Chronic sinusitis, unspecified location Social History Tobacco [...] PM EDT Office Visit [facility] ADULT DENTAL [address] [place] [address] Claudette Soni [address] [place] [address] documented as of this encounter Visit Diagnoses Diagnosis Chronic sinusitis, unspecified location documented in this encounter Additional Health Concerns Assessment Noted Time PHQ-9 Depression Total Score: 0 11/03/19 23 10:32 AM EST documented as of this encounter Care Teams Cognos Bi Administrator Relationship Specialty Start Date End Date Haily Robb FNP 230 [place] [address] PCP - General Family Medicine 05/01/22 documented as of this encounter
--- OUTSIDE RECORDS SUMMARY | 2024-12-30 12:57 | XMS_ITS | Encounter Summary ---
Author Organization [employer] Address [address] [facility] 7t [place] [address] Care Team Providers Care Shell Molding Roller Blast Operator Name Role Phone [facility] Primary Care Provider [phone] Reason for Visit * Reason Onset Date Comments Med Refill 12/13/2023 Encounter Details Date Type Department Care Team ([facility] st Contact Info) Description 12/13/2023 Telephone [facility] MEDICINE 230 [place], [place] [phone] [facility] 230 [place] [address] Med Refill Social History Tobacco Use Types [...] the past 12 months, has t he [employer], gas, oil or water company threatened to [...] 10:24 AM EDT Medication was sent to [facility] on 11/09/23 with 2 refills. * Telephone Encounter - Christine Taylor - 12/13/2023 10:19 AM EDT TC from pt requesting medication refill. Medications needing refill : melatonin 5 MG tablet To be sent to: [facility] - [place], [place] - [address] [facility] documented in this encounter Plan of Treatment Upcoming Encounters Date Type Department Care Team (Late st Contact Info) Description 04/24/2025 1:00 PM EDT Office Visit [facility] ADULT DENTAL [address] [place] [address] Claudette Soni [address] [place] [address] documented as of this encounter Visit Diagnoses Not on filedocumented in this encounter Additional Health Concerns Assessment Noted Time PHQ-9 Depression Total Score: 0 08/15/20 23 3:52 PM EST documented as of this encounter Care Teams Shell Molding Roller Blast Operator Relationship Specialty Start Date End Date Haily Robb FNP [address] [place] [address] PCP - General Family Medicine 05/01/22 documented as of this encounter
--- OUTSIDE RECORDS SUMMARY | 2024-12-30 12:57 | XMS_ITS | Encounter Summary ---
Author Organization [employer] Address [address] [facility] 7t [place] [address] Care Team Providers Care Retort Firer Name Role Phone Clarisse [facility] Primary Care Provider [phone] Reason for Visit * Reason Onset Date Comments Med Refill 09/25/2023 Encounter Details Date Type Department Care Team ([facility] st Contact Info) Description 09/25/2023 Telephone [facility] MEDICINE 230 [place], [place] [phone] [facility] 230 [place] [address] Med Refill Social History Tobacco Use Types [...] with others, in a hotel, in a long term, living outside on the street, on a [...] the past 12 months, has t he [employer], gas, oil or water company threatened to [...] 200 MG/ML injection To be sent to: [facility] - [place], [place] - [address] documented in this encounter Plan of Treatment Upcoming Encounters Date Type Department Care Team (Late st Contact Info) Description 04/24/2025 1:00 PM EDT Office Visit [facility] ADULT DENTAL [address] [place] [address] Claudette Soni [address] [place] [address] documented as of this encounter Visit Diagnoses Not on filedocumented in this encounter Additional Health Concerns Assessment Noted Time PHQ-9 Depression Total Score: 0 08/15/20 3:52 PM EST documented as of this encounter Care Teams Retort Firer Relationship Specialty Start Date End Date Haily Robb FNP 230 [place] [address] PCP - General Family Medicine 05/01/22 documented as of this encounter
--- OUTSIDE RECORDS SUMMARY | 2024-12-30 12:57 | XMS_ITS | Encounter Summary ---
Author Organization [employer] Address [address] [facility] 7t [place] [address] Care Team Providers Care Flask Fitter Name Role Phone Clarisse [facility] Primary Care Provider [phone] Reason for Visit * Reason Onset Date Comments Nurse Triage 02/11/2024 Encounter Details Date Type Department Care Team ([facility] st Contact Info) Description 02/11/2024 Telephone [facility] MEDICINE 230 [place], [place] [phone] [facility] 230 [place] [address] Nurse Triage Social History Tobacco Use Types [...] with others, in a hotel, in a halfway, living outside on the street, on a [...] the past 12 months, has t he [employer], gas, oil or water company threatened to [...] EDT Triage call returned to patient with Warren historical interpreter [id number]. Patient reports ongoing issue withleft eye and [...] and she would like him referred to [facility] Firer [employer]. No diagnosis in chart.Advised of [facility] for evaluation today. [...] Reason: Other Override Notes: Being treated with senior quality methods specialist with appt coming in 03/11/24 Video [...] involuntary movements The caller accepted this outcome Wolof speaker documented in this encounter Plan of Treatment Upcoming Encounters Date Type Department Care Team (Late st Contact Info) Description 04/24/2025 1:00 PM EDT Office Visit [facility] ADULT DENTAL 230 [place] [address] Zachariah, Claudette 230 [place] [address] documented as of this encounter Goals Goal Patient Goal Type Associated Problems Recent Progress Patient-Stated? Author Patient will adhere to medication regimen General No Mary Moreland documented as of this encounter Visit Diagnoses Not on filedocumented in this encounter Additional Health Concerns Assessment Noted Time PHQ-9 Depression Total Score: 0 08/15/20 23 3:52 PM EST documented as of this encounter Care Teams Flask Fitter Relationship Specialty Start Date End Date Haily Robb FNP [address] [place] [address] PCP - General Family Medicine 05/01/22 documented as of this encounter
--- OUTSIDE RECORDS SUMMARY | 2024-12-30 12:57 | XMS_ITS | Encounter Summary ---
Author Organization [employer] Address [address] [facility] 7t [place] [address] Care Team Providers Care Nurse Executive Name Role Phone Haily Robb DIETARY SERVER Primary Care Provider [phone] Reason for Visit * Reason Comments Med Refill Encounter Details Date Type Department Care Team ([facility] st Contact Info) Description 10/29/2023 Refill [facility] 230 [place], [place] [phone] Name, MD Collins [address] [place] [address] Chronic neck pain Social History Tobacco Use [...] with others, in a hotel, in a care home, living outside on the street, on [...] the past 12 months, has t he [employer], gas, oil or water company threatened to [...] Visit [facility] ADULT DENTAL 230 [place] [address] Zachariah, Claudette [address] [place] [address] documented as of this encounter Visit Diagnoses Diagnosis Chronic neck pain Cervicalgia documented in this encounter Additional Health Concerns Assessment Noted Time PHQ-9 Depression Total Score: 0 08/15/20 23 3:52 PM EST documented as of this encounter Care Teams Nurse Executive Relationship Specialty Start Date End Date Haily Robb FNP [address] [place] [address] PCP - General Family Medicine 05/01/22 documented as of this encounter
--- OUTSIDE RECORDS SUMMARY | 2024-12-30 12:57 | XMS_ITS | Encounter Summary ---
Author Organization [employer] Address [address] [facility] [address] [facility] [facility] [address] [place] [address] Care Team Providers Care Block Sealer Name Role Phone [facility] Primary Care Provider [phone] Reason for Visit * Reason Comments Med Refill Encounter Details Date Type Department Care Team ([facility] st Contact Info) Description 08/28/2024 Refill [facility] MEDICINE 230 [place], [place] [phone] [facility] [address] [place] [address] Mixed anxiety and depressive disorder Social History [...] EDT Office Visit [facility] ADULT DENTAL 230 [place] [address] Zachariah, Claudette [address] [place] [address] documented as of this encounter Goals Goal [...] documented as of this encounter Care Teams Block Sealer Relationship Specialty Start Date End Date Haily Robb FNP [address] [place] [address] PCP - General Family Medicine 05/01/22 documented as of this encounter
--- OUTSIDE RECORDS SUMMARY | 2024-12-30 12:57 | XMS_ITS | Encounter Summary ---
Author Organization [employer] Address [address] [facility] [address] [place] [address] Care Team Providers Care Kiln Car Unloader Name Role Phone Clarisse Haily CORNELL Primary Care Provider [phone] Encounter Details Date Type Department Care Team (Latest Contact Info) Description 06/16/2020 Abstract [facility] CONVERSIONS Dental, Provider, DDS Social [...] Description 04/24/2025 1:00 PM EDT Office Visit [facility] ADULT DENTAL [address] [place] [address] Zachariah, Claudette [address] [place] [address] documented as of this encounter Visit Diagnoses Not on filedocumented in this encounter Care Teams Kiln Car Unloader Relationship Specialty Start Date End Date Haily Robb FNP 230 [place] [address] PCP - General Family Medicine 05/01/22 documented as of this encounter
--- OUTSIDE RECORDS SUMMARY | 2024-12-30 12:57 | XMS_ITS | Encounter Summary ---
Author Organization [employer] Address [address] [facility] 7t [place] [address] Care Team Providers Care Loom Doffer Name Role Phone Clarisse [facility] Primary Care Provider [phone] Reason for Visit * Reason Onset Date Comments Appointment Request 10/08/2023 Encounter Details Date Type Department Care Team ([facility] st Contact Info) Description 10/08/2023 Telephone [facility] MEDICINE 230 [place], [place] [phone] [facility] 230 [place] [address] Appointment Request Social History Tobacco Use Types [...] gotten any better. Please contact pt at [phone] documented in this encounter Plan of Treatment Upcoming Encounters Date Type Department Care Team (Late st Contact Info) Description 04/24/2025 1:00 PM EDT Office Visit [facility] ADULT DENTAL [address] [place] [address] Zachariah, Claudette [address] [place] [address] documented as of this encounter Visit Diagnoses Not on filedocumented in this encounter Additional Health Concerns Assessment Noted Time PHQ-9 Depression Total Score: 0 08/15/20 23 3:52 PM EST documented as of this encounter Care Teams Loom Doffer Relationship Specialty Start Date End Date Haily Robb FNP [address] [place] [address] PCP - General Family Medicine 05/01/22 documented as of this encounter
--- OUTSIDE RECORDS SUMMARY | 2024-12-30 12:57 | XMS_ITS | Encounter Summary ---
Author Organization [employer] Address [address] [place] [address] Care Team Providers Care Quality Assurance Project Manager Name Role Phone Clarisse [facility] Primary Care Provider [phone] Reason for Visit * Reason Onset Date Comments Triage 09/20/2022 Encounter Details Date Type Department Care Team ([facility] st Contact Info) Description 09/20/2022 Telephone [facility] MEDICINE 230 [place], [place] [phone] [facility] 230 [place] [address] Triage Social History Tobacco Use Types Packs/Day [...] 09/20/2022 11:55 AM EST Triage call with Maple Manager Sign ID [id number] Pt reports an area on back that [...] No high acuity concerns reported by caller LIBERIAN SPEAKER The caller accepted this outcome documented in this encounter Plan of Treatment Upcoming Encounters Date Type Department Care Team (Late st Contact Info) Description 04/24/2025 1:00 PM EDT Office Visit [facility] ADULT DENTAL 230 [place] [address] Zachariah, Claudette [address] [place] [address] documented as of this encounter Visit Diagnoses Not on filedocumented in this encounter Care Teams Quality Assurance Project Manager Relationship Specialty Start Date End Date Haily Robb FNP 230 [place] [address] PCP - General Family Medicine 05/01/22 documented as of this encounter
--- OUTSIDE RECORDS SUMMARY | 2024-12-30 12:57 | XMS_ITS | Encounter Summary ---
Author Organization [employer] Address [address] [place] [address] Care Team Providers Care Prior Authorization Technician Name Role Phone Clarisse Haily CORNELL Primary Care Provider [phone] Encounter Details Date Type Department Care Team (Latest Contact Info) Description 06/01/2022 Abstract [facility] CONVERSIONS Dental, Provider, DDS Social History Tobacco [...] Office Visit [facility] ADULT DENTAL [address] [place] [address] Zachariah, Claudette [address] [place] [address] documented as of this encounter Visit Diagnoses Not on filedocumented in this encounter Care Teams Prior Authorization Technician Relationship Specialty Start Date End Date Haily Robb FNP 230 [place] [address] PCP - General Family Medicine 05/01/22 documented as of this encounter
--- OUTSIDE RECORDS SUMMARY | 2024-12-30 12:57 | XMS_ITS | Encounter Summary ---
Author Organization [employer] Address [address] [place] [address] Care Team Providers Care Technical Planner Name Role Phone Clarisse [facility] Primary Care Provider [phone] Reason for Visit * Reason Onset Date Comments triage 11/10/2022 Encounter Details Date Type Department Care Team ([facility] st Contact Info) Description 11/10/2022 Telephone [facility] [address] [place], [place] [phone] [facility] [address] [place] [address] triage Social History Tobacco Use Types Packs/Day [...] in office. Pt agrees to come into [facility] for exam. Pt also advised to [...] question The caller accepted this outcome speaks vietnamese documented in this encounter Plan of Treatment Upcoming Encounters Date Type Department Care Team (Late st Contact Info) Description 04/24/2025 1:00 PM EDT Office Visit [facility] ADULT DENTAL [address] [place] [address] Zachariah, Claudette [address] [place] [address] documented as of this encounter Visit Diagnoses Not on filedocumented in this encounter Additional Health Concerns Assessment Noted Time PHQ-9 Depression Total Score: 0 11/03/19 10:32 AM EST documented as of this encounter Care Teams Technical Planner Relationship Specialty Start Date End Date Haily Robb FNP [address] [place] [address] PCP - General Family Medicine 05/01/22 documented as of this encounter
--- OUTSIDE RECORDS SUMMARY | 2024-12-30 12:57 | XMS_ITS | Encounter Summary ---
Author Organization [employer] Address [address] [facility] [address] [place] [address] Care Team Providers Care Program Counselor Name Role Phone [facility] Primary Care Provider [phone] Reason for Visit * Reason Comments Med Refill Encounter Details Date Type Department Care Team ([facility] st Contact Info) Description 09/05/[address] [facility] [address] [place], [place] [phone] [facility] [address] [place] [address] Med Refill Social History Tobacco Use Types [...] - 09/06/2022 8:18 AM EST TC via P/I#[id number], explained to pt that [facility] Provided pt the phone number for the [facility] site and encouraged him to call them for all refills of his Clonazepam. Pt thanked development writer and said he understood. * Telephone Encounter - Yessi Cannon RN - 09/05/2022 3:04 PM EST Note on 08/02/22: Medication request:CLONAZEPAM Last visit 06/27/22. You sent a refill in June, it was picked up 07/12/22. He was originally getting this elsewhere. Not sure what you'd like to do. If you'll now be prescribing, then would you like him on [employer]? documented in this encounter Plan of Treatment Upcoming Encounters Date Type Department Care Team (Late st Contact Info) Description 04/24/2025 1:00 PM EDT Office Visit [facility] ADULT DENTAL [address] [place] [address] Claudette Soni [address] [place] [address] documented as of this encounter Visit Diagnoses Diagnosis Other specified anxiety disorders documented in this encounter Care Teams Program Counselor Relationship Specialty Start Date End Date Haily Robb FNP [address] [place] [address] PCP - General Family Medicine 05/01/22 documented as of this encounter
--- OUTSIDE RECORDS SUMMARY | 2024-12-30 12:57 | XMS_ITS | Clinical Summary ---
Author Organization [facility] Address [address] [place] [address] Phone Care Team Providers Care Trim Operator Name Role Phone [facility] Primary Care Provider [phone] Medications polyethylene glycol (Golytely) 236-22.74-6.74 -5.86 gram [...] Phone Billing Address Personal/Family Self 1970 [address] [facility] [address] [place] [phone] MEDICAID - [place] Care Teams Trim Operator Relationship Specialty Start Date End Date Haily Robb [address] [id number] PCP - General 05/20/24
--- OUTSIDE RECORDS SUMMARY | 2024-12-30 12:57 | XMS_ITS | Encounter Summary ---
Author Organization [email or web address] Address [address] [place] [address] Care Team Providers Care [employer] Name Role Phone Clarisse [facility] Primary Care Provider [phone] Reason for Visit * Reason Onset Date Comments Medication Question 08/24/2022 Encounter Details Date Type Department Care Team ([facility] st Contact Info) Description 08/24/2022 Telephone [facility] [address] [place] [address] [facility] [address] [place] [address] Medication Question Social History Tobacco Use Types [...] requesting a call back. States went to coal picker his medication and they gave him vitamin C and he would like to know if he should be taking them again . Please call to clarify. documented in this encounter Plan of Treatment Upcoming Encounters Date Type Department Care Team (Late st Contact Info) Description 04/24/2025 1:00 PM EDT Office Visit [facility] ADULT DENTAL [address] [place], [place] [phone] Claudette Soni [address] [place] [address] documented as of this encounter Visit Diagnoses Not on filedocumented in this encounter Care Teams [employer] Relationship Specialty Start Date End Date Haily Robb FNP [address] [place] [address] PCP - General Family Medicine 05/01/22 documented as of this encounter
--- OUTSIDE RECORDS SUMMARY | 2024-12-30 12:57 | XMS_ITS | Encounter Summary ---
Author Organization [employer] Address [address] [place] [address] Care Team Providers Care Poultry Processing Supervisor Name Role Phone [facility] Primary Care Provider [phone] Reason for Visit * Reason Onset Date Comments Medication Question 01/16/2023 Encounter Details Date Type Department Care Team ([facility] st Contact Info) Description 01/16/2023 Telephone [facility] [address] [place], [place] [phone] [facility] [address] [place] [address] Medication Question Social History Tobacco Use Types [...] 1:00 PM EDT Office Visit [facility] ADULT DENTAL [address] [place], [place] [phone] Zachariha, Claudette [address] [place], [place] [phone] documented as of this encounter Visit Diagnoses Not on filedocumented in this encounter Additional Health Concerns Assessment Noted Time PHQ-9 Depression Total Score: 0 11/03/19 23 10:32 AM EST documented as of this encounter Care Teams Poultry Processing Supervisor Relationship Specialty Start Date End Date Haily Robb FNP [address] [place] [address] PCP - General Family Medicine 05/01/22 documented as of this encounter
--- OUTSIDE RECORDS SUMMARY | 2024-12-30 12:57 | XMS_ITS | Clinical Summary ---
Author Organization [employer] Address [address] [place] [address] Care Team Providers Care Examining Chair Assembler Name Role Phone Haily Robb [facility] Primary Care Provider [phone] Allergies Active Allergy Reactions Criticality Noted Date [...] albuterol inhaler 1 each 07/13/20 23 Active BD Plastipak Syringe 3 ML misc [...] BREATH 18 g 11 04/28/20 24 Active meloxicam (Mobic) 7.5 MG tablet [...] 30 tablet 11 06/20/20 24 2024 Active fluticasone (Flonase) 50 MCG/ACT nasal sprayIndications: Nasal congestion Administer 2 sprays into each nostril Once per day. Shake gently. Before first use, prime pump. After use, clean tip and replace cap.INSTILL 2 SPRAYS IN EACH NOSTRIL ONCE DAILY 48 g 3 08/08/20 24 Active alfuzosin ER (Uroxatral) 10 MG 24 hr tablet Take 1 tablet by mouth at bedtime. 06/05/20 24 Active ARIPiprazole (Abilify) 10 MG tablet Take 1 tablet by mouth at bedtime. 06/10/20 24 Active Restasis 0.05 % ophthalmic emulsion Administer [...] per day. 60 tablet 2 09/24/19 25 01/22/ 2026 Active melatonin 5 MG tabletIndications :Mixed anxiety and depressive disorder TAKE 1 TO 2 TABLETS BY MOUTH AT BEDTIME NEEDED 60 tablet 2 10/01/19 25 Active diazePAM (Valium) 5 MG tabletIndications :Anxiety due to invasive procedure Take 1 tablet by oral route 30 minutes before procedure 2 tablet 10/10/19 25 Active omeprazole (PriLOSEC) [address] capsuleIndication s:Epigastric pain TAKE 1 CAPSULE BY MOUTH EVERY MORNING BEFORE BREAKFAST 90 capsule 1 10/30/19 25 Active amitriptyline (Elavil) 10 MG tabletIndications :Polyneuropathy Take 1 tablet (10 mg) by mouth at bedtime. 90 tablet 3 10/30/19 25 2025 Active cholecalciferol (D3 Super Strength) 50 MCG (2000 UT) capsuleIndication s:Vitamin D deficiency TAKE 1 CAPSULE BY MOUTH EVERY MORNING 90 capsule 3 11/15/19 25 Active QUEtiapine (SEROquel) 25 MG tablet Take 25 mg by mouth if needed at bedtime. 12/10/19 24 Active polyethylene glycol (GoLYTELY) 236 g solution Take 4L by mouth once for one dose. May substitue any PEG. Starting at 6PM the night before your procedure drink 1 8oz glasses at your own pace until you complete half of the gallon. Finish 2nd half of the gallon 5 hours before your procedure. 09/10/19 25 Active mirtazapine (Remeron) 15 MG tablet Take 15 mg by mouth at bedtime. 05/26/20 24 Active DULoxetine (Cymbalta) [address] capsule Take 20 mg by mouth in the morning. 11/20/19 25 Active sucralfate (Carafate) 1 GM/10ML suspension Take 10 mL (1 g) by mouth every 6 (six) hours. 473 mL 11/26/19 25 Active Acetaminophen Extra Strength 500 MG tablet TAKE 1 TABLET BY MOUTH EVERY 6 HOURS NEEDED FOR MILD PAIN 60 tablet 1 12/25/19 25 Active acetaminophen (Tylenol Extra Strength) 500 MG tablet Take 1 tablet (500 mg) by mouth every 6 (six) hours if needed for mild pain. 60 tablet 1 11/26/19 25 2024 Discontinued Active Problems Problem Noted Date Diagnosed Date Lung nodules 12/19/2024 Interstitial lung disease 11/25/2024 Normal oral exam [...] any case Continue Carafate Call GI at [facility] for EGD and colonoscopy Eat small frequent [...] ? Established with therapy and psychiatry at [facility] ? ? No rash, fever, chills, lymphadenopathy [...] for anxiety sxs) that comes referred from [facility] for exacerbated anxiety in presence [...] a good support system through his family, alevism and recovery network, as well as having [...] to explore potential nerve damage due to nursing home use of anxiolytics, even though John is on low dose medication. At this time is unclear if crawling/burning sensation on skin is solely due to medical and/or somatic presentation. However, sxs are causing significant psychological distress in patient. John was given information on how to reach out to [facility] team and [facility] numbers for crisis. [...] male 11/02/2022 Overview (11/02/2022): ?? Followed by [facility] urology Dr. Lux ?? subcutaneous testosterone injection [...] 02/22/2017 Overview (08/05/2023): ? ? Followed by [facility] ? ? Clonazepam PRN ? ? Clonidine PRN Assessment & Plan (11/06/2022 5:05 AM EST): Spoke with [facility]-the blue conazepam tablets that patient prefer are from a different filter washer and presser and are on back order. ?? Pt [...] Encounters Date Type Department Care Team Description 12/23/2024 Refill [facility] [address] [place] [address] Jana Morgan MD 12/19/2024 Telephone [facility] [place] [address] Magi Magdaleno, RN pulm referral 12/15/2024 11:30 AM EDT Office Visit [facility] [place] [address] Haily Robb FNP Moderate somatic symptom disorder (Primary Dx); Positive TB test; Lung nodules; Polyneuropathy; Encounter for immunization; Generalized abdominal pain 12/15/2024 Travel 12/12/2024 Orders Only GENERIC EXTERNAL DATA DEPARTMENT Provider, Generic External Data 12/05/2024 Travel 12/05/2024 Telephone [facility] [place] [address] Haily Robb FNP No Show 12/02/2024 Telephone [facility] José Miguel [facility] [place] [address] Haily Robb FNP ER Follow-up 12/01/2024 Orders Only GENERIC EXTERNAL DATA DEPARTMENT Provider, [facility] External Data 11/25/2024 11:00 AM EDT Office Visit [facility] [place] [address] Jana Morgan MD Epigastric pain (Primary Dx); Interstitial lung disease (CMS/HCC); Odynophagia 11/25/2024 Travel 11/24/2024 Telephone [facility] José Miguel [facility] [place] [address] Haily Robb FNP Nurse Triage 11/20/2024 Telephone [facility] José Miguel [facility] [address] Haily Robb FNP Call Back Request 11/17/2024 Telephone [facility] José Miguel [facility] [address] Haily Robb FNP No Show (Patient no show for sick on site ) 11/14/2024 Population Health Risk Score Community Care [facility] ([facility]) Department [address] [place] [phone] Provider, Population Health Generic 11/13/2024 Telephone [facility] José Miguel [facility] [address] Haily Robb, BUILDING ATTENDANT Lab Orders 11/13/2024 Refill [facility] MEDICINE [address] [facility] [place] [address] Haily Robb FNP Vitamin D deficiency 11/04/2024 Orders Only [facility] External Provider, [facility] 10/31/2024 Telephone [facility] MEDICINE [address] [place] [address] Haily Robb, BUILDING ATTENDANT Results 10/30/2024 Refill [facility] WALK-IN CENTER [address] [place] [address] ClarisseHaily, ANETA Epigastric pain 10/28/2024 Refill [facility] MEDICINE [address] [place] [address] Clarisse Haily, ANETA Polyneuropathy 10/28/2024 Refill [facility] MEDICINE [address] [place] [address] Haily Robb FNP 10/22/2024 1:00 PM EST Office Visit [facility] ADULT DENTAL [address] [place] [address] Claudette Soni Partial edentulism, unspecified edentulism class (Primary Dx); Dental calculus; Generalized gingival recession, moderate; Normal oral exam 10/14/2024 Telephone [facility] MEDICINE [address] [place] [address] Haily Robb, BUILDING ATTENDANT Results 10/10/2024 1:15 PM EST Office Visit [facility] MEDICINE [address] [place] [address] Haily Robb, ANETA Polyneuropathy (Primary Dx); Bilateral lower extremity edema; Ataxia; Chronic pain of both knees; Anxiety due to invasive procedure; Shortness of breath 10/10/2024 Travel 10/01/2024 Refill [facility] MEDICINE [address] [place] [address] Haily Robb FNP Mixed anxiety and depressive disorder from Last 3 Months Immunizations Name Administration Dates Next Due HepB-CpG 11/16/2022 Moderna Covid-19 Vaccine 12+ 08/16/2021,01/08/20 21,12/10/2020 Pfizer Covid-19 Vaccine 12+ 04/27/2022 Pfizer Covid-19 Vaccine 12+ angela-sucrose (Freeman Cap) 04/27/2022 Pneumococcal Conjugate PCV 20 12/15/2024 Zoster, Recombinant 11/16/2022 Family History Medical History [...] is your housing situation today? I have tammyasaf knight 04/23/[address] you [...] Sign Reading Time Taken Comments Blood Pressure 114/69 12/15/2024 11:02 AM EDT Pulse 84 12/15/2024 11:02 AM EDT Temperature 37.1 ??C (98.8 ??F) 12/15/2024 1 1:02 AM EDT Respiratory Rate 16 12/15/2024 11:0 2 AM EDT Oxygen Saturation 99% 11/25/2024 11: 20 AM EDT Inhaled Oxygen Concentration - - Weight 64.3 kg (141 lb 12.8 oz) 025 11:02 AM EDT Height 172.7 cm (5' 8 ) 12/15/2024 11:0 2 AM EDT Body Mass Index 21.56 12/15/2024 11:02 AM EDT Plan of Treatment Upcoming Encounters Date Type Department Care Team (Late st Contact Info) Description 04/24/2025 1:00 PM EDT Office Visit [facility] ADULT DENTAL [address] [place] [address] Zachariah, Claudette [address] [place] [address] Health Maintenance Due Date Last Done Comments CT Colonography 1968 Colonoscopy 1968 Colorectal Cancer Screening 1968 FIT DNA/Cologuard 1968 FIT 1968 FOBT 1968 Sigmoidoscopy 1968 DTaP/Tdap/Td Vaccines (1 - Tdap) 1987 Hepatitis B Vaccines (2 of 2 [...] Depression Screening 10/10/2025 10/10/2024, 10/10/19 Tobacco Screening 12/19/2025 12/19/2024 Dental X-Ray: Full Mouth 09/12/2026 09/11/2023, 06/04 Lipid Panel 03/19/2029 03/19/2024, 02/02, 11/06/2022, Additional history exists RSV Patients and Patients Aged 60 years or older (1 - 1-dose 75+ series) 2043 HIV Screening Completed 03/22/2023, 0302/2023, 05/05/2021, Additional history exists Hepatitis C Screening Completed 03/22/2023 , 11/06/2022, 05/05/2021, Additional history exists Pneumococcal Vaccine: 50+ Years Completed 12/15/2024 HIB Vaccines Aged Out No longer eligi [...] time period is included. Color Urine Yellow [facility] Appearance Urine Clear [facility] PH 8.5 5.0 - 9.0 [facility] Glucose Urine UA Negative Negative mg/dL [facility] Urine Blood Negative Negative [facility] Specific [place]ridge - Urine 1.010 1.005 - 1.025 [facility] Urine Protein Negative Neg-Trace mg/dL [facility] Urine Ketones Negative Negative mg/dL [facility] Nitrite Urine Negative Negative [facility] Leukocyte Esterase Urine Negative Negative [facility] 12/12/2024 1:17 PM EDT 12/12/2024 1:21 PM EDT Narrative [facility] - 12/12/2024 1:26 PM EDT [id number], Clean Catch us Generic External Data Provider LAB URINE ORDERAB LES Final Result [facility] [address] [place] [phone] [phone] * (ABNORMAL) CBC auto differential (12/12/2024 1:12 PM EDT) Only the most recent of2 resultswithin the time period is included. White Blood Count 5.9 4.8 - 10.8 X10*3/uL [facility] Red Blood Count 4.50(L) 4.60 - 5.80 X10*6/uL [facility] Hemoglobin 14.1 14.0 - 18.0 g/dl [facility] Hematocrit 41.2(L) 42.0 - 52.0 % [facility] Mean Corpuscular Volume 91.6 80.0 - 98.0 fL [facility] Mean Corpuscular Hemoglobin 31.3 27.0 - 33.0 pg [facility] Mean Corpuscular HGB Conc 34.2 31.0 - 36.0 g/dl [facility] Red Cell Distribution Width 12.7 11.0 - 16.0 % [facility] Platelet Count 195 160 - 400 X10*3/uL [facility] Mean Platelet Volume 10.6 9.4 - 12.4 fL [facility] Neutrophils Percent Auto 63.1 45 - 73 % [facility] Imm Gran Pct Auto 0.2 0.0 - 0.4 % [facility] Lymphocytes Percent Auto 26.4 20 - 40 % [facility] Monocytes Percent Auto 6.8 2 - 11 % [facility] Eosinophils Percent Auto 3.0 0 - 4 % [facility] Basophils Percent Auto 0.5 0 - 2 % [facility] NRBC Pct Auto 0.0 0.0 - 0.2 /100WBC [facility] Neutrophils Absolute Auto 3.7 2.0 - 8.3 x10*3/uL [facility] Imm Gran Abs Auto 0.01 0.00 - 0.03 X10*3/uL [facility] Lymphocytes Absolute Auto 1.6 1.2 - 4.9 X10*3/uL [facility] Monocytes Absolute Auto 0.4 0.1 - 1.2 X10*3/uL [facility] Eosinophils Absolute Auto 0.2 0.0 - 0.4 X10*3/uL [facility] Basophils Absolute Auto 0.0 0.0 - 0.2 X10*3/uL [facility] NRBC Abs Auto 0.000 0.0 - 0.012 X10*3/uL [facility] 12/12/2024 1:12 PM EDT 12/12/2024 1:17 PM EDT us Generic External Data Provider LAB BLOOD ORDERAB LES Final Result Performing Organization Address City/[facility]/ZIP Co de Phone Number [facility] [address] [place] [phone] * Lipase (12/12/2024 1:12 PM EDT) Lipase 21 8 - 78 U/L [facility] 12/12/2024 1:12 PM EDT 12/12/2024 1:17 PM EDT Generic External Data Provider LAB BLOOD ORDERAB LES Final Result Performing Organization Address [facility] Co de Phone Number [facility] [address] [place] [phone] * (ABNORMAL) Comprehensive Metabolic Panel (12/12/2024 1:12 PM EDT) Sodium 140 135 - 145 mmol/L [facility] Potassium 4.3 3.3 - 5.1 mmol/L [facility] Chloride 99 96 - 108 mmol/L [facility] Carbon Dioxide 35(H) 22 - 29 mmol/L [facility] Anion Gap 10(L) 12 - 20 [facility] Urea Nitrogen (BUN) 13 9 - 16 mg/dL [facility] Creatinine, Serum 0.93 0.5 - 1.4 mg/dL [facility] Creatinine Clr Calc Pharmacy 78.1 [facility] Comment:eGFR (calculated fro m the MDRD study equation) and eCrCl(calculated from the Cockcroft-Gault equation) are based ondifferent parameters and may not yield comparable results.If eCrCl result is absurd, please check patient'sheight/weight. Estimated Glomerular Filt Rate >60 [facility] Comment:Chronic Kidney Disea se: Estimated GFR < 60 mL/min/1.84n4Kdrbyg Kidney Disease: Estimated GFR < 15 mL/min/1.73m2 Glucose 96 60 - 115 mg/dL [facility] Calcium 9.4 8.4 - 10.2 mg/dL [facility] Bilirubin, Total 0.6 0.0 - 1.0 mg/dL [facility] Aspartate Amino Transferase 33 5 - 37 U/L [facility] Alanine Aminotransferase 41(H) 0 - 40 U/L [facility] Total Protein 7.4 6.5 - 8.0 g/dL [facility] Albumin Level 4.4 3.5 - 5.0 g/dL [facility] Alkaline Phosphatase 57 39 - 117 U/L [facility] 12/12/2024 1:12 PM EDT 12/12/2024 1:17 PM EDT us Generic External Data Provider LAB BLOOD ORDERAB LES Final Result [facility] [address] [place] [phone] [phone] * CT Abdomen Pelvis w/ Contrast (12/01/2024 2:39 PM EDT) Anatomical Region Laterality Modality Body, Pelvis, Abdomen Computed T omography 12/01/2024 2:39 PM EDT Narrative 12/01/2024 3:17 PM EDT ? [facility] ?[address] ?[place] [address] ? CT Scan Report ? Signed ? Patient: JrJohn Underwood ?MR#: ?? [id number] ? : 1970 ?Acct:[id number] ? Age/Sex: 54 / M ?ADM Date: 03/31/25 ? Loc: HO.ED ? Attending Dr: ? Ordering Physician: Eliazar Ashby MD ?? Date of Service: 12/01/24 ?? Procedure(s): CT abdomen pelvis w IV con ?? Accession Number(s): [id number] ? cc: Eliazar Ashby MD; Haily Robb BUILDING ATTENDANT ? Report Number: ?? [id number]: Total DLP = ??297.39 mGy-cm ?? EXAMINATION: [...] Pierre Adamson MD ??12/01/2024 03:15 PM EDT ?? RP ? Dictated By: ?Jean Pierre Adamson MD ? Signed By: ?<Electronically signed by Jean Pierre Adamson MD in OV> ?12/01/24 1515 ? DD/ 1439 ? TD/TT: 12/01/24 1501 ? Dryland Farmer: ? Procedure Note Donotuseinterpreter, Image - 12/01/[address] [address] [address] Scan Report Signed Patient: oJhn Fitzpatrick AMR#: [id number] : 1970Acct:[id number] Age/Sex: 54 / MADM Date: 12/01/24 Loc: HO.ED Attending Dr: Ordering Physician: Eliazar Ashby MD Date of Service: 12/01/24 Procedure(s): CT abdomen pelvis w IV con Accession Number(s): [id number] cc: Eliazar Ashby MD; [facility] Report Number: [id number]: Total DLP = 297.39 mGy-cm EXAMINATION: CT [...] 12/01/24 1515 DD/ 1439 TD/TT: 12/01/24 1501 Dryland Farmer: [facility] External Provider IMG CT PROCEDURES Final Result * CT Chest w/ Contrast (12/01/2024 2:39 PM EDT) Anatomical Region Laterality Modality Body, Chest Computed Tomogra phy 12/01/2024 2:39 PM EDT Narrative 12/01/2024 3:17 PM EDT ? [facility] ?[address] ?[place] [address] ? CT Scan Report ? Signed ? Patient: John Fitzpatrick ?MR#: ?? [id number] ? : 1970 ?Acct:[id number] ? Age/Sex: 54 / M ?ADM Date: 12/01/24 ? Loc: HO.ED ? Attending Dr: ? Ordering Physician: Eliazar Ashby MD ?? Date of Service: 12/01/24 ?? Procedure(s): CT chest w IV con ?? Accession Number(s): [id number] ? cc: Eliazar Ashby MD; Haily Robb ? Report Number: ?? [id number]: Total DLP = ??176.61 mGy-cm ?? EXAMINATION: [...] Pierre Adamson MD ??12/01/2024 03:15 PM EDT ?? RP ? Dictated By: ?Jean Pierre Adamson MD ? Signed By: ?<Electronically signed by Jean Pierre Adamson MD in OV> ?12/01/24 1515 ? DD/ 1439 ? TD/TT: 12/01/24 1501 ? Dryland Farmer: ? Procedure Note Donotsunnyter, Image - 12/01/[address] [address] [address] Scan Report Signed Patient: John Fitzpatrick AMR#: [id number] : 1970Acct:[id number] Age/Sex: 54 / MADM Date: 12/01/24 Loc: HO.ED Attending Dr: Ordering Physician: Eliazar Ashby MD Date of Service: 12/01/24 Procedure(s): CT chest w IV con Accession Number(s): [id number] cc: Eliazar Ashby MD; [facility] Report Number: [id number]: Total DLP = 176.61 mGy-cm EXAMINATION: CT [...] 12/01/24 1515 DD/ 1439 TD/TT: 12/01/24 1501 Dryland Farmer: [facility] External Provider IMG CT PROCEDURES Final Result * (ABNORMAL) T-SPOT??.TB (12/01/2024 11:52 AM EDT) T Spot TB Positive( A) Negative [facility] Comment: Diagnosing or excluding tuberculosis (TB) [...] as aquantitative test. TS PANEL A 18 [facility] TS PANEL B 0 [facility] Negative Control Passed [facility] Positive Control Passed [facility] Comment:For additional infor mattyrone, please refer tohttp://education.[employer]/faq/RBC017(This link is being provided for informational/educational purposes only.)REPORT COMMENT:REC'D AT CHYTHIS TEST WAS PERFORMED AT:[employer]/EM [id number] [place] [id number] ESPINAL MD,PHD 12/01/2024 11:5 2 AM EDT 12/01/2024 11:56 AM EDT Generic External Data Provider LAB BLOOD ORDERAB LES Final Result Performing Organization Address [facility] Co de Phone Number [facility] [address] [place] [phone] * SARS-CoV-2 RNA, Influenza A/B, and RSV RNA, Ql NAAT (12/01/2024 10:45 AM EDT) Influenza A PCR NEGATIVE Negative [facility] Influenza B PCR NEGATIVE Negative [facility] Resp Syncy Virus RNA Qual PCR NEGATIVE Negative [facility] SARS COV2 PCR NEGATIVE Negative [facility] Comment:All test results mus t [...] use by authorized laboratories.Testing performed on the [employer] GeneXpert utilizingreal-time RT-PCR.All SARS CoV2 and positive influenza A/B results arereported to [facility]. 12/01/2024 10:4 5 AM EDT 12/01/2024 10:51 AM EDT us Generic External Data Provider LAB MICROBIOLOGY - GENERAL ORDERABLES Final Result Performing Organization Address [facility]/ZIP Co de Phone Number [facility] [address] [place] [phone] * (ABNORMAL) Basic Metabolic Panel (12/01/2024 10:45 AM EDT) Sodium 140 135 - 145 mmol/L [facility] Potassium 4.2 3.3 - 5.1 mmol/L [facility] Chloride 102 96 - 108 mmol/L [facility] Carbon Dioxide 32(H) 22 - 29 mmol/L [facility] Anion Gap 10(L) 12 - 20 [facility] Urea Nitrogen (BUN) 22(H) 9 - 16 mg/dL [facility] Creatinine, Serum 1.15 0.5 - 1.4 mg/dL [facility] Creatinine Clr Calc Pharmacy 61.3 [facility] Comment:eGFR (calculated fro m the MDRD study equation) and eCrCl(calculated from the Cockcroft-Gault equation) are based ondifferent parameters and may not yield comparable results.If eCrCl result is absurd, please check patient'sheight/weight. Estimated Glomerular Filt Rate >60 [facility] Comment:Chronic Kidney Disea se: Estimated GFR < 60 mL/min/1.67e4Wuymss Kidney Disease: Estimated GFR < 15 mL/min/1.73m2 Glucose 104 60 - 115 mg/dL [facility] Calcium 9.4 8.4 - 10.2 mg/dL [facility] 12/01/2024 10:4 5 AM EDT 12/01/2024 10:51 AM EDT us Generic External Data Provider LAB BLOOD ORDERAB LES Final Result [facility] [address] [place] [phone] [phone] * XR Chest 2 Views (12/01/2024 10:33 AM EDT) Only the most recent of2 resultswithin the time period is included. Anatomical Region Laterality Modality Chest Radiographic Cecelia ging 12/01/2024 10:3 3 AM EDT Narrative 12/01/2024 10:46 AM EDT ? [facility] [place] [facility] ?[address] ?[place] [address] ?XRay Report ? Signed ? Patient: John Fitzpatrick ?MR#: ?? [id number] ? : 1970 ?Acct:[id number] ? Age/Sex: 54 / M ?ADM Date: 12/01/24 ? Loc: HO.ED ? Attending Dr: ? Ordering Physician: Generic ED Physician ?? Date of Service: 12/01/24 ?? Procedure(s): XR chest 2V ?? Accession Number(s): [id number] ? cc: Generic ED Physician; [facility] ? EXAMINATION: ?? XR CHEST ? CLINICAL [...] DD/ 1033 ? TD/TT: 12/01/24 1040 ? Dryland Farmer: ? Procedure Note Leonard Sanders - 12/01/[address] [address] XRay Report Signed Patient: John Fitzpatrick AMR#: [id number] : 1970Acct:[id number] Age/Sex: 54 / MADM Date: 12/01/24 Loc: .ED Attending Dr: Ordering Physician: Generic ED Physician Date of Service: 12/01/24 Procedure(s): XR chest 2V Accession Number(s): [id number] cc: Generic ED Physician; Haily Robb BUILDING ATTENDANT EXAMINATION: XR CHEST CLINICAL INFORMATION: sob COMPARISON: [...] 12/01/24 1043 DD/ 1033 TD/TT: 12/01/24 1040 Dryland Farmer: [facility] External Provider IMG XR PROCEDURES Final Result * US Abdomen Limited (11/04/2024 11:49 AM EST) Anatomical Region Laterality Modality Abdomen Ultrasound 11/04/2024 11:4 9 AM EST Narrative 11/04/2024 12:32 PM EST ? [facility] ?[address] ?[place] [address] ? Ultrasound Report ? Signed ? Patient: John Fitzpatrick ?MR#: ?? [id number] ? : 1970 ?Acct:[id number] ? Age/Sex: 54 / M ?ADM Date: 11/04/24 ? Loc: HO.ED ? Attending Dr: ? Ordering Physician: Lorena Banks DO ?? Date of Service: 11/04/24 ?? Procedure(s): US abdomen limited ?? Accession Number(s): [id number] ? cc: Lorena Banks DO; Haily Robb BUILDING ATTENDANT ? EXAMINATION: ?? US ABDOMEN LIMITED ? [...] DD/ 1149 ? TD/TT: 11/04/24 1202 ? Dryland Farmer: ? Procedure Note Leonard Sanders - 11/04/2024 [place] [address] Ultrasound Report Signed Patient: John Fitzpatrick AMR#: [id number] : 1970Acct:[id number] Age/Sex: 54 / MADM Date: 11/04/24 Loc: HO.ED Attending Dr: Ordering Physician: Lorena Banks DO Date of Service: 11/04/24 Procedure(s): US abdomen limited Accession Number(s): [id number] cc: Lorena Banks DO; Haily Robb BUILDING ATTENDANT EXAMINATION: US ABDOMEN LIMITED CLINICAL INFORMATION: Epigastric [...] hydronephrosis, right kidney. Electronically signed by: Darryl aZidi MD 11/04/2024 12:28 PM EST RP Dictated By: Darryl Rey MD Signed By: <Electronically signed by Darryl Lynn MDin OV> 11/04/24 1228 DD/ 1149 TD/TT: 11/04/24 1202 Dryland Farmer: [facility] External Provider IMG US PROCEDURES Final Result * XR Knee 4+ Views Right (10/10/2024 2:37 PM EST) Anatomical Region Laterality Modality Lower Extremities, Knee Right Radiogra phic Imaging 10/10/2024 2:37 PM EST Narrative 10/10/2024 3:12 PM EST ? [facility] ?[address] ?[place] [address] ?XRay Report ? Signed ? Patient: John Fitzpatrick ?MR#: ?? [id number] ? : 1970 ?Acct:[id number] ? Age/Sex: 54 / M ?ADM Date: 02/07/25 ? Loc: HO.CARD ? Attending Dr: Pepper Balderrama MD ? Ordering Physician: Haily Robb ?? Date of Service: 10/10/24 ?? Procedure(s): XR knee RT 4V ?? Accession Number(s): [id number] ? cc: Haily Robb ? EXAMINATION: ?? [...] DD/ 1437 ? TD/TT: 10/10/24 1502 ? Dryland Farmer: ? Procedure Note Marilyn, Image - 10/10/[address] [address] XRay Report Signed Patient: John Fitzpatrick AMR#: [id number] : 1970Acct:[id number] Age/Sex: 54 / MADM Date: 10/10/24 Loc: YOGESH Attending Dr: Pepper Balderrama MD Ordering Physician: Haily Robb [facility] Date of Service: 10/10/24 Procedure(s): XR knee RT 4V Accession Number(s): [id number] [facility]: [facility] EXAMINATION: XR KNEE, RIGHT CLINICAL INFORMATION: chronic [...] 10/10/24 1509 DD/ 1437 TD/TT: 10/10/24 1502 Dryland Farmer: [facility] BUILDING ATTENDANT IMG XR PROCEDURES Final Resul t * XR Knee 4+ Views Left (10/10/2024 2:37 PM EST) Anatomical Region Laterality Modality Lower Extremities, Knee Left Radiogra phic Imaging 10/10/2024 2:37 PM EST Narrative 10/10/2024 3:12 PM EST ? [facility] ?[address] ?[place] [address] ?XRay Report ? Signed ? Patient: Jr John Ro ?MR#: ?? [id number] ? : 1970 ?Acct:[id number] ? Age/Sex: 54 / M ?ADM Date: 10/10/24 ? Loc: HO.CARD ? Attending Dr: Pepper Balderrama MD ? Ordering Physician: Haily Robb ?? Date of Service: 10/10/24 ?? Procedure(s): XR knee LT 4V ?? Accession Number(s): [id number] ? cc: Haily Robb ? EXAMINATION: ?? [...] DD/ 1437 ? TD/TT: 10/10/24 1502 ? Dryland Farmer: ? Procedure Note Donotuseinterpreter, Image - 10/10/[address] [address] XRay Report Signed Patient: John Fitzpatrick AMR#: [id number] : 1970Acct:[id number] Age/Sex: 54 / MADM Date: 10/10/24 Loc: [facility] Attending Dr: Pepper Balderrama MD Ordering Physician: Haily Robb Date of Service: 10/10/24 Procedure(s): XR knee LT 4V Accession Number(s): [id number] [facility]: [facility] EXAMINATION: XR KNEE, LEFT CLINICAL INFORMATION: chronic [...] by: Darryl Zaidi MD 10/10/2024 03:10 PM [facility] Dictated By: Darryl Rey MD Signed By: <Electronically signed by Darryl Lynn MDin OV> 10/10/24 1510 DD/ 1437 TD/TT: 10/10/24 1502 Dryland Farmer: [facility] BUILDING ATTENDANT IMG XR PROCEDURES Final Resul t * Hemoglobin A1c (06/20/2024 3:05 PM EDT) Hemoglobin A1c 5.7 <6.0 % [facility] Comment:Hemoglobin A1C Refer ence Range Adults: 4.8 - 6.0 % Non diabetic: < 6.0 % Goal: < 7.0 %Additional Action Suggested: > 8.0 %Note: Hemoglobin A1c results are invalid for patients with abnormal amounts of HbF. Blood transfusions may impact the HbA1c concentration in the patient sample. Estimated Average Glucose 117 mg/dL [facility] Comment:eAG = Estimated ave rage glucose which is %A1C expressed asaverage glucose, using the formula of the R5B-FasosomLgyysob Glucose study (ADAG), Diabetes Care, Vol.31,#8,Apr. 2007 Blood Venous blood specimen / Unknown 06/20/2024 3:05 PM EDT 06/20/2024 4:21 PM EDT us Niecy Chacon ANP LAB BLOOD ORDERABLES Final Resul t Performing Organization Address [facility] Co de Phone Number [facility] [address] [place] [phone] * Lipid Panel, Standard (03/19/2024 9:34 AM EDT) Triglycerides 66 <150 mg/dL [facility] Comment:Desirable Triglyceri de: less than 150 mg/dLBorderline High Triglyceride 150-199 mg/dLHigh Triglyceride: 200-499 mg/dLVery High Triglyceride: greater than or equal to 5OO mg/dL Cholesterol 112 <200 mg/dL [facility] Comment:Desirable Cholestero l: less than 200 mg/dLBorderline High Cholesterol: 200-239 mg/dLHigh Cholesterol: greater than 239 mg/dL LDL Cholesterol Calculated 58 <100 mg/dL [facility] Comment:Desirable LDL: less than 100 mg/dLNear Optimal/Above Optimal LDL: 110- 129 mg/dLBorderline High LDL: 130-159 mg/dLHigh LDL: 160-189 mg/dLVery High LDL: greater than or equal to 190 mg/dL HDL Cholesterol 41 >40 mg/dL [facility] Comment:Desirable HDL: great er than 40 mg/dL Note: This HDL assay may give artificially low results in patients with liver disease. Blood Venous blood specimen / Unknown 03/19/2024 9:34 AM EDT 03/19/2024 11:12 AM EDT us Roxana Gotti DO LAB BLOOD ORDERABLES Final R esult Performing Organization Address City/[facility]/ZIP Co de Phone Number [facility] [address] [place] [phone] * Hepatitis C Viral RNA, Quantitative, Real-Time PCR (03/22/2023 11:53 AM EDT) Pathologist [facility] Hepatitis C Viral Load <15 NOT DETECTED NOT DETECTED IU/mL [facility] HCV Log PCR <1.18 NOT DETECTED NOT DETECTED Log IU/mL [facility] Comment:This test was perfor med using Real-Time Polymerase ChainReaction.Reportable Range: 15 IU/mL to 100,000,000 IU/mL(1.18 Log IU/mL to 8.00 Log IU/mL).The analytical performance characteristics of thisassay have been determined by [facility].The modifications have not been cleared or approved bythe FDA. This assay has been validated pursuant to theCLIA regulations and is used for clinical purposes.For more information on this test, go to:http://education.[employer]/faq/TSW74i8(This link is being provided for informational/educational purposes only.)THIS TEST WAS PERFORMED AT:[facility] [place] [phone] GONG MD Blood 03/22/2023 11:5 3 AM EDT 03/22/2023 1:32 PM EDT Jessica Guillen BUILDING ATTENDANT LAB BLOOD ORDERABLES Final Res ult [facility] [address] [place] [phone] * HIV-1 RNA, Quantitative, Real-Time PCR (03/22/2023 11:53 AM EDT) [facility] HIV RNA PCR Qn Copies NOT DETECTED NOT DETECTED copies/mL [facility] HIV RNA PCR Qn Log Copies NOT DETECTED NOT DETECTED [facility] Comment:Result Units: Log co pies/mLThis test was performed using Real-Time Polymerase ChainReaction.Reportable Range: 20 copies/mL to 10,000,000 copies/mL(1.30 log copies/mL to 7.00 log copies/mL).THIS TEST WAS PERFORMED AT:[facility] [place] [id number] GONG MD Blood Venous blood specimen / Unknown 03/22/2023 11:53 AM EDT 03/22/2023 1:32 PM EDT us Jessica Guillen BUILDING ATTENDANT LAB BLOOD ORDERABLES Final Res ult [facility] [address] [place] [phone] [phone] from Last 3 Months or Most Recently Relevant to Health Maintenance Insurance [facility] C3 DENTAL-[facility] MEDICAID STAND ADULT Care Teams Examining Chair Assembler Relationship Specialty Start Date End Date Haily Robb FNP [address] [place] [phone] PCP - General Family Medicine 05/01/22
--- OUTSIDE RECORDS SUMMARY | 2024-12-30 12:57 | XMS_ITS | Encounter Summary ---
Author Organization [employer] Address [address] 7t [place] [address] Care Team Providers Care High School Biology Teacher Name Role Phone Clarisse [facility] Primary Care Provider [phone] Reason for Visit * Reason Onset Date Comments Nurse Triage 02/16/2023 Encounter Details Date Type Department Care Team ([facility] st Contact Info) Description 02/16/2023 Telephone [facility] [address] [place], [place] [phone] [facility] [address] [place] [address] Nurse Triage Social History Tobacco Use Types [...] - 02/23/2023 2:49 PM EDT T/C to [phone] through [email or web address] interpreters id - [id number] for below message, pt. Verbally agreed and understood. * Telephone Encounter - Angela Whitman LPN - 02/16/2023 2:48 PM EDT Triage call returned to patient via [employer] Network And Systems Engineer [phone]. Patient called with concerns of Left eye burning and tearing at times with blurred vision. No irritant or object in eye at this time. Patient reports that he was seen some time ago in [facility] [place] and was given order to obtain eye drops for dry eye. He is angry that he had to pay for them out of pocket and that they did not help. Patient requesting specifically a referral and declines appts. in [facility] or with Team providers later in the [...] suggested disposition Override Notes: Patient seen in [facility] [place] and was told to use eye drops several months ago. Patient requesting only referral to [employer]. [employer]. Video visit not offered Positive Triage Question: [...] Description 04/24/2025 1:00 PM EDT Office Visit [facility] ADULT [facility]AL [address] [place] [address] Kailash Soniaris [address] [place] [address] documented as of this encounter Visit Diagnoses Not on filedocumented in this encounter Additional Health Concerns Assessment Noted Time PHQ-9 Depression Total Score: 0 01/26/20 23 3:38 PM EDT documented as of this encounter Care Teams High School Biology Teacher Relationship Specialty Start Date End Date Haily Robb FNP [address] [place] [address] PCP - General Family Medicine 05/01/22 documented as of this encounter
--- OUTSIDE RECORDS SUMMARY | 2024-12-30 12:57 | XMS_ITS | Encounter Summary ---
Author Organization [employer] Address [address] [place] [address] Care Team Providers Care Shipping And Receiving Supervisor Name Role Phone Haily Robb QA AUDITOR Primary Care Provider Reason for Visit * Reason Comments Med Refill Encounter Details Date Type Department Care Team (Late st Contact Info) Description 04/02/2023 Refill [facility] [address] [place] [address] Juanojse Barton MD [address] [place] [address] Chronic pruritus Social History Tobacco Use Types [...] Office Visit [facility] ADULT DENTAL [address] [place] [address] Claudette Soni [address] [place] [address] documented as of this encounter Visit Diagnoses Diagnosis Chronic pruritus documented in this encounter Additional Health Concerns Assessment Noted Time PHQ-9 Depression Total Score: 0 01/26/20 23 3:38 PM EDT documented as of this encounter Care Teams Shipping And Receiving Supervisor Relationship Specialty Start Date End Date Haily Robb FNP [address] [place] [address] PCP - General Family Medicine 05/01/22 documented as of this encounter
--- OUTSIDE RECORDS SUMMARY | 2024-12-30 12:57 | XMS_ITS | Encounter Summary ---
Author Organization [employer] Address [address] [place] [address] Care Team Providers Care Senior Abap Developer Name Role Phone Clarisse [facility] Primary Care Provider [phone] Reason for Visit * Reason Onset Date Comments Results 03/16/2023 Encounter Details Date Type Department Care Team ([facility] st Contact Info) Description 03/16/2023 Telephone [facility] [address] [place], [place] [phone] Elida Golisano [facility] [address] [place] [address] Results Social History Tobacco Use Types Packs/Day [...] 03/20/2023 4:06 PM EDT Return T/C to [phone] for below message, No answer. LVM to call back on [phone]. * Telephone Encounter - Kelli Boucher - 03/16/2023 2:04 PM EDT Tc from pt requesting a call in regards to results to recent lab orders. Please contact pt at [phone] (Comoran speaker) documented in this encounter Plan of Treatment Upcoming Encounters Date Type Department Care Team (Late st Contact Info) Description 04/24/2025 1:00 PM EDT Office Visit [facility] AD[facility] [address] [place], [place] [phone] ZachariahClaudette [address] [place] [address] documented as of this encounter Visit Diagnoses Not on filedocumented in this encounter Additional Health Concerns Assessment Noted Time PHQ-9 Depression Total Score: 0 01/26/20 23 3:38 PM EDT documented as of this encounter Care Teams Senior Abap Developer Relationship Specialty Start Date End Date Haily Robb FNP [address] [place] [address] PCP - General Family Medicine 05/01/22 documented as of this encounter
== END 2024-12-30 11:33 | disposition home or self-care (01) ==
LOC: HO.HKA 11:06
PROVIDERS: PCP Registered Nurse; Visit Provider Internal Medicine Hypertension Specialist
DX: N40.0 Benign prostatic hyperplasia without lower urinary tract symptoms (principal); R80.9 Proteinuria, unspecified
CPT/HCPCS: 99214

== ENCOUNTER → 2024-12-30 11:05 | Outpatient (BNVA) | payer MEDICAID, SELFPAY | PROVIDERS: PCP Registered Nurse; Visit Provider Internal Medicine Hypertension Specialist | DX: N40.1 Benign prostatic hyperplasia with lower urinary tract symptoms (principal); K21.9 Gastro-esophageal reflux disease without esophagitis; R80.9 Proteinuria, unspecified; Z87.440 Personal history of urinary (tract) infections | CPT/HCPCS: 99212 ==

== ENCOUNTER 2024-12-30 11:48 | Outpatient (REF) | payer MEDICAID, SELFPAY ==
--- OUTSIDE RECORDS SUMMARY | 2024-12-30 13:55 | XMS_ITS | Encounter Summary ---
Author Organization [employer] Address [address] [place] [address] Care Team Providers Care Wire Saw Operator Name Role Phone [place] [facility] Primary Care Provider [phone] Reason for Visit * Reason Comments Med Refill Encounter Details Date Type Department Care Team ([facility] st Contact Info) Description 07/08/2024 Refill [facility] [address] [place], [place] [phone] [facility] [address] [place] [address] Mixed anxiety and depressive disorder Social History [...] 1:00 PM EDT Office Visit [facility] ADULT DENTAL [address] [place] [address] Zachariah, Claudette [address] [place] [address] documented as of this encounter Goals Goal [...] documented as of this encounter Care Teams Wire Saw Operator Relationship Specialty Start Date End Date Haily Robb FNP [address] [place] [address] PCP - General Family Medicine 05/01/22 documented as of this encounter
--- OUTSIDE RECORDS SUMMARY | 2024-12-30 13:56 | XMS_ITS | Encounter Summary ---
Author Organization [employer] Address [address] [place] [address] Care Team Providers Care Sheriffs Name Role Phone Clarisse [facility] Primary Care Provider [phone] Reason for Visit * Reason Onset Date Comments triage 11/10/2022 Encounter Details Date Type Department Care Team ([facility] st Contact Info) Description 11/10/2022 Telephone [facility] [address] [place], [place] [phone] [facility] [address] [place] [address] triage Social History Tobacco Use Types Packs/Day [...] in office. Pt agrees to come into [facility] for exam. Pt also advised to [...] question The caller accepted this outcome speaks hungarian documented in this encounter Plan of Treatment Upcoming Encounters Date Type Department Care Team (Late st Contact Info) Description 04/24/2025 1:00 PM EDT Office Visit [facility] ADULT DENTAL [address] [place] [address] Zachariah, Claudette [address] [place] [address] documented as of this encounter Visit Diagnoses Not on filedocumented in this encounter Additional Health Concerns Assessment Noted Time PHQ-9 Depression Total Score: 0 11/03/19 10:32 AM EST documented as of this encounter Care Teams Sheriffs Relationship Specialty Start Date End Date Haily Robb FNP [address] [place] [address] PCP - General Family Medicine 05/01/22 documented as of this encounter
--- OUTSIDE RECORDS SUMMARY | 2024-12-30 13:56 | XMS_ITS | Encounter Summary ---
Author Organization [employer] Address [address] 7t [place] [address] Care Team Providers Care Ladle Liner Name Role Phone Clarisse [facility] Primary Care Provider [phone] Reason for Visit * Reason Onset Date Comments Med Refill 09/25/2023 Encounter Details Date Type Department Care Team ([facility] st Contact Info) Description 09/25/[address] [facility] MED[facility]INE [address] [place], [place] [phone] [facility] [address] [place] [address] Med Refill Social History Tobacco Use Types [...] the past 12 months, has t he [employer], gas, oil or water company threatened to [...] 200 MG/ML injection To be sent to: [facility] [place], [place] - [address] documented in this encounter Plan of Treatment Upcoming Encounters Date Type Department Care Team (Late st Contact Info) Description 04/24/2025 1:00 PM EDT Office Visit [facility] ADULT DENTAL [address] [place] [address] Claudette Soni [address] [place] [address] documented as of this encounter Visit Diagnoses Not on filedocumented in this encounter Additional Health Concerns Assessment Noted Time PHQ-9 Depression Total Score: 0 08/15/20 3:52 PM EST documented as of this encounter Care Teams Ladle Liner Relationship Specialty Start Date End Date Haily Robb FNP [address] [place] [address] PCP - General Family Medicine 05/01/22 documented as of this encounter
--- OUTSIDE RECORDS SUMMARY | 2024-12-30 13:56 | XMS_ITS | Encounter Summary ---
Author Organization [employer] Address [address] [place] [address] Care Team Providers Care Respiratory Care Technician Name Role Phone Clarisse Haily CORNELL Primary Care Provider [phone] Encounter Details Date Type Department Care Team (Latest Contact Info) Description 06/16/2020 Abstract [facility] CON[facility] Dental, Provider, DDS Social History [...] [facility]ULT [facility] [address] [place] [address] Zachariah, Claudette [address] [place] [address] documented as of this encounter Visit Diagnoses Not on filedocumented in this encounter Care Teams Respiratory Care Technician Relationship Specialty Start Date End Date Haily Robb FNP [address] [place] [address] PCP - General Family Medicine 05/01/22 documented as of this encounter
--- OUTSIDE RECORDS SUMMARY | 2024-12-30 13:56 | XMS_ITS | Encounter Summary ---
Author Organization [email or web address] Address [address] [place] [address] Care Team Providers Care Sighter Name Role Phone Clarisse [facility] Primary Care Provider [phone] Reason for Visit * Reason Onset Date Comments Nurse Triage 02/16/2023 Encounter Details Date Type Department Care Team ([facility] st Contact Info) Description 02/16/2023 Telephone [facility] [address] [place], [place] [phone] [facility] [address] [place] [address] Nurse Triage Social History Tobacco Use Types [...] - 02/23/2023 2:49 PM EDT T/C to [phone] through [employer] interpreters id - [id number] for below message, pt. Verbally agreed and understood. * Telephone Encounter - Angela Whitman LPN - 02/16/2023 2:48 PM EDT Triage call returned to patient via [employer] Evaluation Manager [phone]. Patient called with concerns of Left eye burning and tearing at times with blurred vision. No irritant or object in eye at this time. Patient reports that he was seen some time ago in [facility] [place] and was given order to obtain eye drops for dry eye. He is angry that he had to pay for them out of pocket and that they did not help. Patient requesting specifically a referral and declines appts. in [facility] or with Team providers later [...] suggested disposition Override Notes: Patient seen in [facility] and was told to use eye drops several months ago. Patient requesting only referral to Wind [employer] Operator. Video visit not offered Positive Triage Question: [...] 1:00 PM EDT Office Visit [facility] ADULT DENTAL [address] [place] [address] Kailash Soniaris [address] [place] [address] documented as of this encounter Visit Diagnoses Not on filedocumented in this encounter Additional Health Concerns Assessment Noted Time PHQ-9 Depression Total Score: 0 01/26/20 23 3:38 PM EDT documented as of this encounter Care Teams Sighter Relationship Specialty Start Date End Date Haily Robb FNP [address] [place] [address] PCP - General Family Medicine 05/01/22 documented as of this encounter
--- OUTSIDE RECORDS SUMMARY | 2024-12-30 13:56 | XMS_ITS | Encounter Summary ---
Author Organization [employer] Address [address] [place] [address] Care Team Providers Care Manager Fine Dining Name Role Phone Clarisse Haily CORNELL Primary Care Provider Encounter Details Date Type Department Care Team (Latest Contact Info) Description 06/01/2022 Abstract [facility] CONVERSIONS Dental, Provider, DDS Social History [...] Description 04/24/2025 1:00 PM EDT Office Visit [facility] ADULT DENTAL [address] [place] [address] Zachariah, Claudette [address] [place] [address] documented as of this encounter Visit Diagnoses Not on filedocumented in this encounter Care Teams Manager Fine Dining Relationship Specialty Start Date End Date Haily Robb FNP [address] [place] [address] PCP - General Family Medicine 05/01/22 documented as of this encounter
--- OUTSIDE RECORDS SUMMARY | 2024-12-30 13:56 | XMS_ITS | Encounter Summary ---
Author Organization [employer] Address [address] [place] [address] Care Team Providers Care Railcar Switchman Name Role Phone Haily Robb SLATER APPRENTICE Primary Care Provider [phone] Reason for Visit * Reason Comments Med Refill Encounter Details Date Type Department Care Team (Late st Contact Info) Description 04/02/2023 Refill [facility] [address] [place] [address] Hollis Rutledge MD [address] [place] [address] Social History Tobacco Use Types Packs/Day Years [...] Visit [facility] ADULT DENTAL [address] [place] [address] Claudette Soni [address] [place] [address] documented as of this encounter Visit Diagnoses Not on filedocumented in this encounter Additional Health Concerns Assessment Noted Time PHQ-9 Depression Total Score: 0 01/26/20 23 3:38 PM EDT documented as of this encounter Care Teams Railcar Switchman Relationship Specialty Start Date End Date Haily Robb FNP 230 [place] [address] PCP - General Family Medicine 05/01/22 documented as of this encounter
--- OUTSIDE RECORDS SUMMARY | 2024-12-30 13:56 | XMS_ITS | Encounter Summary ---
Author Organization [employer] Address [address] [place] [address] Care Team Providers Care Sales Exhibitor Name Role Phone Haily Robb ARNP Primary Care Provider [phone] Reason for Visit * Reason Comments Med Refill Encounter Details Date Type Department Care Team (Late st Contact Info) Description 04/02/2023 Refill [facility] [address] [place] [address] Juanjose Barton MD [address] [place] [address] Chronic pruritus Social History Tobacco Use Types [...] [facility] [address] [place] [address] Claudette Soni [address] [place] [address] documented as of this encounter Visit Diagnoses Diagnosis Chronic pruritus documented in this encounter Additional Health Concerns Assessment Noted Time PHQ-9 Depression Total Score: 0 01/26/20 23 3:38 PM EDT documented as of this encounter Care Teams Sales Exhibitor Relationship Specialty Start Date End Date Haily Robb FNP [address] [place] [address] PCP - General Family Medicine 05/01/22 documented as of this encounter
--- OUTSIDE RECORDS SUMMARY | 2024-12-30 13:56 | XMS_ITS | Encounter Summary ---
Author Organization [employer] Address [address] [place] [address] Care Team Providers Care Port Crane Operator Name Role Phone Clarisse [facility] Primary Care Provider [phone] Reason for Visit * Reason Onset Date Comments Triage 09/20/2022 Encounter Details Date Type Department Care Team ([facility] st Contact Info) Description 09/20/2022 Telephone [facility] [address] [place], [place] [phone] [facility] [address] [place] [address] Triage Social History Tobacco Use Types Packs/Day [...] 09/20/2022 11:55 AM EST Triage call with [facility] Chick Grader ID [id number] Pt reports an area on back that [...] No high acuity concerns reported by caller AZERBAIJANI SPEAKER The caller accepted this outcome documented in this encounter Plan of Treatment Upcoming Encounters Date Type Department Care Team (Late st Contact Info) Description 04/24/2025 1:00 PM EDT Office Visit [facility]ULT [facility] [address] [place] [address] Zachariah, Claudette [address] [place] [address] documented as of this encounter Visit Diagnoses Not on filedocumented in this encounter Care Teams Port Crane Operator Relationship Specialty Start Date End Date Haily Robb FNP [address] [place] [address] PCP - General Family Medicine 05/01/22 documented as of this encounter
--- OUTSIDE RECORDS SUMMARY | 2024-12-30 13:56 | XMS_ITS | Encounter Summary ---
Author Organization [employer] Address [address] [place] [address] Care Team Providers Care Telemarketer Supervisor Name Role Phone Clarisse [facility] Primary Care Provider [phone] Reason for Visit * Reason Onset Date Comments Results 03/16/2023 Encounter Details Date Type Department Care Team ([facility] st Contact Info) Description 03/16/2023 Telephone [facility] [address] [place], [place] [phone] [place] [facility] [address] [place] [address] Results Social History Tobacco Use Types Packs/Day [...] 03/20/2023 4:06 PM EDT Return T/C to [phone] for below message, No answer. LVM to call back on [phone]. * Telephone Encounter - Kelli Boucher - 03/16/2023 2:04 PM EDT Tc from pt requesting a call in regards to results to recent lab orders. Please contact pt at [phone] (Estonian speaker) documented in this encounter Plan of Treatment Upcoming Encounters Date Type Department Care Team (Late st Contact Info) Description 04/24/2025 1:00 PM EDT Office Visit [facility] [address] [place], [place] [phone] ZachariahClaudette [address] [place] [address] documented as of this encounter Visit Diagnoses Not on filedocumented in this encounter Additional Health Concerns Assessment Noted Time PHQ-9 Depression Total Score: 0 01/26/20 23 3:38 PM EDT documented as of this encounter Care Teams Telemarketer Supervisor Relationship Specialty Start Date End Date Haily Robb FNP [address] [place] [address] PCP - General Family Medicine 05/01/22 documented as of this encounter
--- OUTSIDE RECORDS SUMMARY | 2024-12-30 13:56 | XMS_ITS | Encounter Summary ---
Author Organization [employer] Address [address] [place] [address] Care Team Providers Care Trolley Car Overhauler Name Role Phone [place] [facility] Primary Care Provider [phone] Reason for Visit * Reason Comments Med Refill Encounter Details Date Type Department Care Team ([facility] st Contact Info) Description 08/28/2024 Refill [facility] [address] [place], [place] [phone] [facility] [address] [place] [address] Mixed anxiety and depressive disorder Social History [...] Description 04/24/2025 1:00 PM EDT Office Visit [facility] [address] [place] [address] Zachariah, Claudette [address] [place] [address] documented as of this encounter Goals Goal [...] documented as of this encounter Care Teams Trolley Car Overhauler Relationship Specialty Start Date End Date Haily Robb FNP [address] [place] [address] PCP - General Family Medicine 05/01/22 documented as of this encounter
--- OUTSIDE RECORDS SUMMARY | 2024-12-30 13:56 | XMS_ITS | Clinical Summary ---
Author Organization [facility] Address [address] [place] [address] Phone Care Team Providers Care Bunch Breaker Machine Operator Name Role Phone [facility] Primary Care Provider [phone] Medications polyethylene glycol (Golytely) 236-22.74-6.74 -5.86 gram [...] Phone Billing Address Personal/Family Self 1970 [address] [facility] [address] [place] [id number] MEDICAID - [place] Care Teams Bunch Breaker Machine Operator Relationship Specialty Start Date End Date Haily Robb [address] [phone] PCP - General 05/20/24
--- OUTSIDE RECORDS SUMMARY | 2024-12-30 13:56 | XMS_ITS | Encounter Summary ---
Author Organization [employer] Address [address] [facility] [address]t [place] [address] Care Team Providers Care Embedded Engineer Name Role Phone Clarisse [facility] Primary Care Provider [phone] Reason for Visit * Reason Onset Date Comments Nurse Triage 02/11/2024 Encounter Details Date Type Department Care Team ([facility] st Contact Info) Description 02/11/2024 Telephone [facility] [address] [place], [place] [phone] [facility] [address] [place] [address] Nurse Triage Social History Tobacco Use Types [...] the past 12 months, has t he [employer], gas, oil or water company threatened [...] EDT Triage call returned to patient with [place] equity research associate [id number]. Patient reports ongoing issue withleft eye and [...] and she would like him referred to [facility] Impregnator Electrolytic Capacitors. No diagnosis in chart.Advised of [facility] for evaluation today. [...] Reason: Other Override Notes: Being treated with eyelet row marker with appt coming in 03/11/24 Video visit not offered Positive Triage Question: * Patient wants to be seen * All higher-acuity triage questions were negative * Telephone Encounter - Christine Taylor - 02/11/2024 10:03 AM EDT Symptom: Eye - Pus or Discharge Outcome: Schedule a same-day appointment or talk to a nurse or provider today Reason: involuntary movements The caller accepted this outcome Slovenian speaker documented in this encounter Plan of Treatment Upcoming Encounters Date Type Department Care Team (Late st Contact Info) Description 04/24/2025 1:00 PM EDT Office Visit [facility]ULT [facility] [address] [place] [address] Zachariah, Claudette [address] [place] [address] documented as of this encounter Goals Goal Patient Goal Type Associated Problems Recent Progress Patient-Stated? Author Patient will adhere to medication regimen General No Mary Moreland documented as of this encounter Visit Diagnoses Not on filedocumented in this encounter Additional Health Concerns Assessment Noted Time PHQ-9 Depression Total Score: 0 08/15/20 23 3:52 PM EST documented as of this encounter Care Teams Embedded Engineer Relationship Specialty Start Date End Date Haily Robb FNP [address] [place] [address] PCP - General Family Medicine 05/01/22 documented as of this encounter
--- OUTSIDE RECORDS SUMMARY | 2024-12-30 13:56 | XMS_ITS | Encounter Summary ---
Author Organization [employer] Address [address] [place] [address] Care Team Providers Care Manager Wealth Management Name Role Phone [place] [facility] Primary Care Provider [phone] Reason for Visit * Reason Comments Med Refill Encounter Details Date Type Department Care Team (Late Contact Info) Description 01/01/2023 Refill [facility] [address] [place], [place] [phone] [facility] 230 [place] [address] Chronic sinusitis, unspecified location Social History Tobacco [...] Description 04/24/2025 1:00 PM EDT Office Visit [facility] [address] [place] [address] Claudette Soni [address] [place] [address] documented as of this encounter Visit Diagnoses Diagnosis Chronic sinusitis, unspecified location documented in this encounter Additional Health Concerns Assessment Noted Time PHQ-9 Depression Total Score: 0 11/03/19 23 10:32 AM EST documented as of this encounter Care Teams Manager Wealth Management Relationship Specialty Start Date End Date Haily Robb FNP [address] [place] [address] PCP - General Family Medicine 05/01/22 documented as of this encounter
--- OUTSIDE RECORDS SUMMARY | 2024-12-30 13:56 | XMS_ITS | Encounter Summary ---
Author Organization [employer] Address [address] [facility] [address]t [place] [address] Care Team Providers Care Law Enforcement Officer Name Role Phone [place] [facility] Primary Care Provider [phone] Reason for Visit * Reason Comments Med Refill Encounter Details Date Type Department Care Team ([facility] st Contact Info) Description 09/05/2022 Telephone [facility] [address] [place], [place] [phone] [facility] 230 [place] [address] Med Refill Social History Tobacco Use Types [...] - 09/06/2022 8:18 AM EST TC via P/I#[id number], explained to pt that his [facility] Provided pt the phone number for the [facility] site and encouraged him to call them for all refills of his Clonazepam. Pt thanked telegraphic typewriter operator chief and said he understood. * Telephone Encounter - Yessi Cannon RN - 09/05/2022 3:04 PM EST Note on 08/02/22: Medication request:CLONAZEPAM Last visit 06/27/22. You sent a refill in June, it was picked up 07/12/22. He was originally getting this elsewhere. Not sure what you'd like to do. If you'll now be prescribing, then would you like him on HUMAN RESOURCES RECORDS CLERK? documented in this encounter Plan of Treatment Upcoming Encounters Date Type Department Care Team (Late st Contact Info) Description 04/24/2025 1:00 PM EDT Office Visit [facility] ADULT D[facility] [address] [place] [address] Claudette Soni [address] [place] [address] documented as of this encounter Visit Diagnoses Diagnosis Other specified anxiety disorders documented in this encounter Care Teams Law Enforcement Officer Relationship Specialty Start Date End Date Haily Robb FNP [address] [place] [address] PCP - General Family Medicine 05/01/22 documented as of this encounter
--- OUTSIDE RECORDS SUMMARY | 2024-12-30 13:56 | XMS_ITS | Encounter Summary ---
Author Organization [employer] Address [address] [facility] 7[address] [place] [address] Care Team Providers Care Vessel Builder Name Role Phone [place] [facility] Primary Care Provider [phone] Reason for Visit * Reason Onset Date Comments Med Refill 12/13/2023 Encounter Details Date Type Department Care Team ([facility] st Contact Info) Description 12/13/2023 Telephone [facility] [address] [place], [place] [phone] [facility] 230 [place] [address] Med Refill Social History Tobacco Use Types [...] the past 12 months, has t he [employer], gas, oil or water company threatened to [...] 10:24 AM EDT Medication was sent to [facility] on 11/09/23 with 2 refills. * Telephone Encounter - Christine Taylor - 12/13/2023 10:19 AM EDT TC from pt requesting medication refill. Medications needing refill : melatonin 5 MG tablet To be sent to: [facility] - [place], [place] - [address] [facility] documented in this encounter Plan of Treatment Upcoming Encounters Date Type Department Care Team (Late st Contact Info) Description 04/24/2025 1:00 PM EDT Office Visit [facility] ADULT DENTAL [address] [place] [address] Claudette Soni [address] [place] [address] documented as of this encounter Visit Diagnoses Not on filedocumented in this encounter Additional Health Concerns Assessment Noted Time PHQ-9 Depression Total Score: 0 08/15/20 23 3:52 PM EST documented as of this encounter Care Teams Vessel Builder Relationship Specialty Start Date End Date Haily Robb FNP [address] [place] [id number] PCP - General Family Medicine 05/01/22 documented as of this encounter
--- OUTSIDE RECORDS SUMMARY | 2024-12-30 13:56 | XMS_ITS | Clinical Summary ---
Author Organization [employer] Address [address] [place] [address] Care Team Providers Care Line Servicer Name Role Phone Haily Robb [facility] Primary Care Provider [phone] Allergies Active Allergy Reactions Criticality Noted Date [...] any case Continue Carafate Call GI at [place] for EGD and colonoscopy Eat small frequent [...] ? Established with therapy and psychiatry at [facility] ? ? No rash, fever, [...] for anxiety sxs) that comes referred from [facility] for exacerbated anxiety in presence of increased [...] a good support system through his family, rastafari and recovery network, as well as having [...] presentation. I met with medical provider overseeing Jonh's case and we discussed potential referrals to neurologist to explore potential nerve damage due to [facility] use of anxiolytics, even though John is on low dose medication. At this time is unclear if crawling/burning sensation on skin is solely due to medical and/or somatic presentation. However, sxs are causing significant psychological distress in patient. John was given information on how to reach out to [facility] team and [facility] numbers for [...] male 11/02/2022 Overview (11/02/2022): ?? Followed by [facility] [place] [place] urology Dr. Lux ?? subcutaneous testosterone injection [...] 02/22/2017 Overview (08/05/2023): ? ? Followed by [facility] ? ? Clonazepam PRN ? ? Clonidine PRN Assessment & Plan (11/06/2022 5:05 AM EST): Spoke with [facility]-the blue conazepam tablets that patient prefer are from a different weighing station operator and are on back order. ?? Pt [...] Team Description 12/23/2024 Refill [facility] [address] [place] [address] Jana Morgan MD 12/19/2024 Telephone [facility] [place] [address] Magi Magdaleno, RN pulm referral 12/15/2024 11:30 AM EDT Office Visit [facility] [place] [place] [address] Haily Robb FNP Moderate somatic symptom disorder (Primary Dx); Positive TB test; Lung nodules; Polyneuropathy; Encounter for immunization; Generalized abdominal pain 12/15/2024 Travel 12/12/2024 Orders Only GENERIC EXTERNAL DATA DEPARTMENT Provider, Generic External Data 12/05/2024 Travel 12/05/2024 Telephone [facility] [place] [place] [address] Haily Robb FNP No Show 12/02/2024 Telephone [facility] [place] [place] [address] Haily Robb FNP ER Follow-up 12/01/2024 Orders Only GENERIC EXTERNAL DATA DEPARTMENT Provider, [facility] External Data 11/25/2024 11:00 AM EDT Office Visit [facility] [place] [address] Jana Morgan MD Epigastric pain (Primary Dx); Interstitial lung disease (CMS/HCC); Odynophagia 11/25/2024 Travel 11/24/2024 Telephone [facility] [place] [address] Haily Robb FNP Nurse Triage 11/20/2024 Telephone [facility] [place] [address] Haily Robb FNP Call Back Request 11/17/2024 Telephone [facility] [place] [address] Haily Robb FNP No Show (Patient no show for sick on site ) 11/14/2024 Population Health Risk Score Community Care [facility] ([facility]) Department [address] [place] [phone] Provider, Population Health Generic 11/13/2024 Telephone [facility] José [facility] [place] [address] Haily Robb, EDUCATION DEAN Lab Orders 11/13/2024 Refill [facility] [address] [facility] [address] Haily Robb FNP Vitamin D deficiency 11/04/2024 Orders Only [facility] External Provider, [facility] 10/31/2024 Telephone [facility] [address] [place] [address] Haily Robb, EDUCATION DEAN Results 10/30/2024 Refill [facility] [address] [place] [address] ClarisseHaily, ANETA Epigastric pain 10/28/2024 Refill [facility] [address] [place] [address] Clarisse Haily, ANETA Polyneuropathy 10/28/2024 Refill [facility] [address] [place] [address] Haily Robb FNP 10/22/2024 1:00 PM EST Office Visit [facility] [address] [place] [address] Claudette Soni Partial edentulism, unspecified edentulism class (Primary Dx); Dental calculus; Generalized gingival recession, moderate; Normal oral exam 10/14/2024 Telephone [facility] [address] [place] [address] Haily Robb, EDUCATION DEAN Results 10/10/2024 1:15 PM EST Office Visit [facility] [address] [place] [address] Haily Robb, ANETA Polyneuropathy (Primary Dx); Bilateral lower extremity edema; Ataxia; Chronic pain of both knees; Anxiety due to invasive procedure; Shortness of breath 10/10/2024 Travel 10/01/2024 Refill [facility] [address] [place] [address] Haily Robb FNP Mixed anxiety and depressive [...] Visit [facility] [address] [place] [address] Zachariah, Claudette [address] [place] [address] Health Maintenance Due Date Last Done Comments [...] time period is included. Color Urine Yellow [facility] Appearance Urine Clear [facility] PH 8.5 5.0 - 9.0 [facility] Glucose Urine UA Negative Negative mg/dL [facility] Urine Blood Negative Negative [facility] Specific [place] - Urine 1.010 1.005 - 1.025 [facility] Urine Protein Negative Neg-Trace mg/dL [facility] Urine Ketones Negative Negative mg/dL [facility] Nitrite Urine Negative Negative [facility] Leukocyte Esterase Urine Negative Negative [facility] 12/12/2024 1:17 PM EDT 12/12/2024 1:21 PM EDT Narrative [facility] - 12/12/2024 1:26 PM EDT [id number], Clean Catch us Generic External Data Provider LAB URINE ORDERAB LES Final Result [facility] [address] [place] [address] [phone] * (ABNORMAL) CBC auto differential (12/12/2024 1:12 PM EDT) Only the most recent of2 resultswithin the time period is included. White Blood Count 5.9 4.8 - 10.8 X10*3/uL [facility] Red Blood Count 4.50(L) 4.60 - 5.80 X10*6/uL [facility] Hemoglobin 14.1 14.0 - 18.0 g/dl [facility] Hematocrit 41.2(L) 42.0 - 52.0 % [facility] Mean Corpuscular Volume 91.6 80.0 - 98.0 fL [facility] Mean Corpuscular Hemoglobin 31.3 27.0 - 33.0 pg [facility] Mean Corpuscular HGB Conc 34.2 31.0 - 36.0 g/dl [facility] Red Cell Distribution Width 12.7 11.0 - 16.0 % [facility] Platelet Count 195 160 - 400 X10*3/uL [facility] Mean Platelet Volume 10.6 9.4 - 12.4 fL [facility] Neutrophils Percent Auto 63.1 45 - 73 % [facility] Imm Gran Pct Auto 0.2 0.0 - 0.4 % [facility] Lymphocytes Percent Auto 26.4 20 - 40 % [facility] Monocytes Percent Auto 6.8 2 - 11 % [facility] Eosinophils Percent Auto 3.0 0 - 4 % [facility] Basophils Percent Auto 0.5 0 - 2 % [facility] NRBC Pct Auto 0.0 0.0 - 0.2 /100WBC [facility] Neutrophils Absolute Auto 3.7 2.0 - 8.3 x10*3/uL [facility] Imm Gran Abs Auto 0.01 0.00 - 0.03 X10*3/uL [facility] Lymphocytes Absolute Auto 1.6 1.2 - 4.9 X10*3/uL [facility] Monocytes Absolute Auto 0.4 0.1 - 1.2 X10*3/uL [facility] Eosinophils Absolute Auto 0.2 0.0 - 0.4 X10*3/uL [facility] Basophils Absolute Auto 0.0 0.0 - 0.2 X10*3/uL [facility] NRBC Abs Auto 0.000 0.0 - 0.012 X10*3/uL [facility] 12/12/2024 1:12 PM EDT 12/12/2024 1:17 PM EDT us Generic External Data Provider LAB BLOOD ORDERAB LES Final Result Performing Organization Address City/[facility]/ZIP Co de Phone Number [facility] [address] [place] [address] [phone] * Lipase (12/12/2024 1:12 PM EDT) Lipase 21 8 - 78 U/L [facility] 12/12/2024 1:12 PM EDT 12/12/2024 1:17 PM EDT Generic External Data Provider LAB BLOOD ORDERAB LES Final Result Performing Organization Address [facility] Co de Phone Number [facility] [address] [place] [phone] * (ABNORMAL) Comprehensive Metabolic Panel (12/12/2024 1:12 PM EDT) Sodium 140 135 - 145 mmol/L [facility] Potassium 4.3 3.3 - 5.1 mmol/L [facility] Chloride 99 96 - 108 mmol/L [facility] Carbon Dioxide 35(H) 22 - 29 mmol/L [facility] Anion Gap 10(L) 12 - 20 [facility] Urea Nitrogen (BUN) 13 9 - 16 mg/dL [facility] Creatinine, Serum 0.93 0.5 - 1.4 mg/dL [facility] Creatinine Clr Calc Pharmacy 78.1 [facility] Comment:eGFR (calculated fro m the MDRD study equation) and eCrCl(calculated from the Cockcroft-Gault equation) are based ondifferent parameters and may not yield comparable results.If eCrCl result is absurd, please check patient'sheight/weight. Estimated Glomerular Filt Rate >60 [facility] Comment:Chronic Kidney Disea se: Estimated GFR < 60 mL/min/1.10j1Vfondl Kidney Disease: Estimated GFR < 15 mL/min/1.73m2 Glucose 96 60 - 115 mg/dL [facility] Calcium 9.4 8.4 - 10.2 mg/dL [facility] Bilirubin, Total 0.6 0.0 - 1.0 mg/dL [facility] Aspartate Amino Transferase 33 5 - 37 U/L [facility] Alanine Aminotransferase 41(H) 0 - 40 U/L [facility] Total Protein 7.4 6.5 - 8.0 g/dL [facility] Albumin Level 4.4 3.5 - 5.0 g/dL [facility] Alkaline Phosphatase 57 39 - 117 U/L [facility] 12/12/2024 1:12 PM EDT 12/12/2024 1:17 PM EDT us Generic External Data Provider LAB BLOOD ORDERAB LES Final Result [facility] [address] [place] [address] [phone] * CT Abdomen Pelvis w/ Contrast (12/01/2024 2:39 PM EDT) Anatomical Region Laterality Modality Body, Pelvis, Abdomen Computed T omography 12/01/2024 2:39 PM EDT Narrative 12/01/2024 3:17 PM EDT ? [facility] ?[address] ?[place] [address] ? CT Scan Report ? Signed ? Patient: JrJohn Underwood ?MR#: ?? [id number] ? : 1970 ?Acct:[id number] ? Age/Sex: 54 / M ?ADM Date: 03/31/25 ? Loc: HO.ED ? Attending Dr: ? Ordering Physician: Eliazar Ashby MD ?? Date of Service: 12/01/24 ?? Procedure(s): CT abdomen pelvis w IV con ?? Accession Number(s): [id number] ? cc: Eliazar Ashby MD; Haily Robb EDUCATION DEAN ? Report Number: ?? [id number]: Total DLP = ??297.39 mGy-cm ?? EXAMINATION: [...] DD/ 1439 ? TD/TT: 12/01/24 1501 ? Oil Rag Washer: ? Procedure Note Donotuseinterpreter, Image - 12/01/[address] [address] [address] Scan Report Signed Patient: John Fitzpatrick AMR#: [id number] : 1970Acct:[id number] Age/Sex: 54 / MADM Date: 12/01/24 Loc: HO.ED Attending Dr: Ordering Physician: Eliazar Ashby MD Date of Service: 12/01/24 Procedure(s): CT abdomen pelvis w IV con Accession Number(s): [id number] cc: Eliazar Ashby MD; [facility] Report Number: [id number]: Total DLP = 297.39 mGy-cm EXAMINATION: CT [...] 12/01/24 1515 DD/ 1439 TD/TT: 12/01/24 1501 Oil Rag Washer: [facility] External Provider IMG CT PROCEDURES Final Result * CT Chest w/ Contrast (12/01/2024 2:39 PM EDT) Anatomical Region Laterality Modality Body, Chest Computed Tomogra phy 12/01/2024 2:39 PM EDT Narrative 12/01/2024 3:17 PM EDT ? [facility] ?[address] ?[place] [address] ? CT Scan Report ? Signed ? Patient: John Fitzpatrick ?MR#: ?? [id number] ? : 1970 ?Acct:[id number] ? Age/Sex: 54 / M ?ADM Date: 12/01/24 ? Loc: HO.ED ? Attending Dr: ? Ordering Physician: Eliazar Ashby MD ?? Date of Service: 12/01/24 ?? Procedure(s): CT chest w IV con ?? Accession Number(s): [id number] ? cc: Eliazar Ashby MD; Haily Robb ? Report Number: ?? [id number]: Total DLP = ??176.61 mGy-cm ?? EXAMINATION: [...] DD/ 1439 ? TD/TT: 12/01/24 1501 ? Oil Rag Washer: ? Procedure Note Donotsunnyter, Image - 12/01/[address] [address] [address] Scan Report Signed Patient: John Fitzpatrick AMR#: [id number] : 1970Acct:[id number] Age/Sex: 54 / MADM Date: 12/01/24 Loc: HO.ED Attending Dr: Ordering Physician: Eliazar Ashby MD Date of Service: 12/01/24 Procedure(s): CT chest w IV con Accession Number(s): [id number] cc: Eliazar Ashby MD; [facility] Report Number: [id number]: Total DLP = 176.61 mGy-cm EXAMINATION: CT [...] 12/01/24 1515 DD/ 1439 TD/TT: 12/01/24 1501 Oil Rag Washer: [facility] External Provider IMG CT PROCEDURES Final Result * (ABNORMAL) T-SPOT??.TB (12/01/2024 11:52 AM EDT) T Spot TB Positive( A) Negative [facility] Comment: Diagnosing or excluding tuberculosis [...] as aquantitative test. TS PANEL A 18 [facility] TS PANEL B 0 [facility] Negative Control Passed [facility] Positive Control Passed [facility] Comment:For additional infor mattyrone, please refer tohttp://education.Liquid X/faq/[email or web address](This link is being provided for informational/educational purposes only.)REPORT COMMENT:REC'D AT CHYTHIS TEST WAS PERFORMED AT:[employer]/EM [id number] [place] [id number] ESPINAL MD,PHD 12/01/2024 11:5 2 AM EDT 12/01/2024 11:56 AM EDT Generic External Data Provider LAB BLOOD ORDERAB LES Final Result Performing Organization Address [facility] Co de Phone Number [facility] [address] [place] [phone] * SARS-CoV-2 RNA, Influenza A/B, and RSV RNA, Ql NAAT (12/01/2024 10:45 AM EDT) Influenza A PCR NEGATIVE Negative [facility] Influenza B PCR NEGATIVE Negative [facility] Resp Syncy Virus RNA Qual PCR NEGATIVE Negative [facility] SARS COV2 PCR NEGATIVE Negative [facility] Comment:All test results mus t be [...] use by authorized laboratories.Testing performed on the [employer] GeneXpert utilizingreal-time RT-PCR.All SARS CoV2 and positive influenza A/B results arereported to [facility]. 12/01/2024 10:4 5 AM EDT 12/01/2024 10:51 AM EDT us Generic External Data Provider LAB MICROBIOLOGY - GENERAL ORDERABLES Final Result Performing Organization Address [facility]/ZIP Co de Phone Number [facility] [address] [place] [phone] * (ABNORMAL) Basic Metabolic Panel (12/01/2024 10:45 AM EDT) Sodium 140 135 - 145 mmol/L [facility] Potassium 4.2 3.3 - 5.1 mmol/L [facility] Chloride 102 96 - 108 mmol/L [facility] Carbon Dioxide 32(H) 22 - 29 mmol/L [facility] Anion Gap 10(L) 12 - 20 [facility] Urea Nitrogen (BUN) 22(H) 9 - 16 mg/dL [facility] Creatinine, Serum 1.15 0.5 - 1.4 mg/dL [facility] Creatinine Clr Calc Pharmacy 61.3 [facility] Comment:eGFR (calculated fro m the MDRD study equation) and eCrCl(calculated from the Cockcroft-Gault equation) are based ondifferent parameters and may not yield comparable results.If eCrCl result is absurd, please check patient'sheight/weight. Estimated Glomerular Filt Rate >60 [facility] Comment:Chronic Kidney Disea se: Estimated GFR < 60 mL/min/1.88k8Xamtcb Kidney Disease: Estimated GFR < 15 mL/min/1.73m2 Glucose 104 60 - 115 mg/dL [facility] Calcium 9.4 8.4 - 10.2 mg/dL [facility] 12/01/2024 10:4 5 AM EDT 12/01/2024 10:51 AM EDT us Generic External Data Provider LAB BLOOD ORDERAB LES Final Result [facility] [address] [place] [phone] [phone] * XR Chest 2 Views (12/01/2024 10:33 AM EDT) Only the most recent of2 resultswithin the time period is included. Anatomical Region Laterality Modality Chest Radiographic Cecelia ging 12/01/2024 10:3 3 AM EDT Narrative 12/01/2024 10:46 AM EDT ? [facility] [facility] ?[address] ?[place] [address] ?XRay Report ? Signed ? Patient: John Fitzpatrick ?MR#: ?? [id number] ? : 1970 ?Acct:[id number] ? Age/Sex: 54 / M ?ADM Date: 12/01/24 ? Loc: HO.ED ? Attending Dr: ? Ordering Physician: Generic ED Physician ?? Date of Service: 12/01/24 ?? Procedure(s): XR chest 2V ?? Accession Number(s): [id number] ? cc: Generic ED Physician; [facility] ? EXAMINATION: ?? XR CHEST ? [...] DD/ 1033 ? TD/TT: 12/01/24 1040 ? Oil Rag Washer: ? Procedure Note Leonard Sanders - 12/01/[address] [address] XRay Report Signed Patient: John Fitzpatrick AMR#: [id number] : 1970Acct:[id number] Age/Sex: 54 / MADM Date: 12/01/24 Loc: .ED Attending Dr: Ordering Physician: Generic ED Physician Date of Service: 12/01/24 Procedure(s): XR chest 2V Accession Number(s): [id number] cc: Generic ED Physician; Haily Robb EDUCATION DEAN EXAMINATION: XR CHEST CLINICAL INFORMATION: sob COMPARISON: [...] 12/01/24 1043 DD/ 1033 TD/TT: 12/01/24 1040 Oil Rag Washer: [facility] External Provider IMG XR PROCEDURES Final Result * US Abdomen Limited (11/04/2024 11:49 AM EST) Anatomical Region Laterality Modality Abdomen Ultrasound 11/04/2024 11:4 9 AM EST Narrative 11/04/2024 12:32 PM EST ? [facility] ?[address] ?[place] [address] ? Ultrasound Report ? Signed ? Patient: John Fitzpatrick ?MR#: ?? [id number] ? : 1970 ?Acct:[id number] ? Age/Sex: 54 / M ?ADM Date: 11/04/24 ? Loc: HO.ED ? Attending Dr: ? Ordering Physician: Lorena Banks DO ?? Date of Service: 11/04/24 ?? Procedure(s): US abdomen limited ?? Accession Number(s): [id number] ? cc: Lorena Banks DO; Haily Robb EDUCATION DEAN ? EXAMINATION: ?? US ABDOMEN LIMITED ? [...] DD/ 1149 ? TD/TT: 11/04/24 1202 ? Oil Rag Washer: ? Procedure Note Leonard Sanders - 11/04/2024 [place] [address] Ultrasound Report Signed Patient: John Fitzpatrick AMR#: [id number] : 1970Acct:[id number] Age/Sex: 54 / MADM Date: 11/04/24 Loc: HO.ED Attending Dr: Ordering Physician: Lorena Banks DO Date of Service: 11/04/24 Procedure(s): US abdomen limited Accession Number(s): [id number] cc: Lorena Banks DO; Haily Robb EDUCATION DEAN EXAMINATION: US ABDOMEN LIMITED CLINICAL INFORMATION: Epigastric [...] 11/04/24 1228 DD/ 1149 TD/TT: 11/04/24 1202 Oil Rag Washer: [facility] External Provider IMG US PROCEDURES Final Result * XR Knee 4+ Views Right (10/10/2024 2:37 PM EST) Anatomical Region Laterality Modality Lower Extremities, Knee Right Radiogra phic Imaging 10/10/2024 2:37 PM EST Narrative 10/10/2024 3:12 PM EST ? [facility] ?[address] ?[place] [address] ?XRay Report ? Signed ? Patient: John Fitzpatrick ?MR#: ?? [id number] ? : 1970 ?Acct:[id number] ? Age/Sex: 54 / M ?ADM Date: 02/07/25 ? Loc: HO.CARD ? Attending Dr: Pepper Balderrama MD ? Ordering Physician: Haily Robb ?? Date of Service: 10/10/24 ?? Procedure(s): XR knee RT 4V ?? Accession Number(s): [id number] ? cc: Haily Robb ? EXAMINATION: ?? [...] DD/ 1437 ? TD/TT: 10/10/24 1502 ? Oil Rag Washer: ? Procedure Note Marilyn, Image - 10/10/[address] [address] XRay Report Signed Patient: John Fitzpatrick AMR#: [id number] : 1970Acct:[id number] Age/Sex: 54 / MADM Date: 10/10/24 Loc: YOGESH Attending Dr: Pepper Balderrama MD Ordering Physician: Haily Robb [facility] Date of Service: 10/10/24 Procedure(s): XR knee RT 4V Accession Number(s): [id number] [facility] EX[facility]: XR KNEE, RIGHT CLINICAL INFORMATION: [...] 10/10/24 1509 DD/ 1437 TD/TT: 10/10/24 1502 Oil Rag Washer: [facility] EDUCATION DEAN IMG XR PROCEDURES Final Resul t * XR Knee 4+ Views Left (10/10/2024 2:37 PM EST) Anatomical Region Laterality Modality Lower Extremities, Knee Left Radiogra phic Imaging 10/10/2024 2:37 PM EST Narrative 10/10/2024 3:12 PM EST ? [facility] ?[address] ?[place] [address] ?XRay Report ? Signed ? Patient: Jr John Ro ?MR#: ?? [id number] ? : 1970 ?Acct:[id number] ? Age/Sex: 54 / M ?ADM Date: 10/10/24 ? Loc: HO.CARD ? Attending Dr: Pepper Balderrama MD ? Ordering Physician: Haily Robb ?? Date of Service: 10/10/24 ?? Procedure(s): XR knee LT 4V ?? Accession Number(s): [id number] ? cc: Haily Robb ? EXAMINATION: ?? [...] DD/ 1437 ? TD/TT: 10/10/24 1502 ? Oil Rag Washer: ? Procedure Note Donotuseinterpreter, Image - 10/10/[address] [address] XRay Report Signed Patient: John Fitzpatrick AMR#: [id number] : 1970Acct:[id number] Age/Sex: 54 / MADM Date: 10/10/24 Loc: [facility] Attending Dr: Pepper Balderrama MD Ordering Physician: Haily Robb Date of Service: 10/10/24 Procedure(s): XR knee LT 4V Accession Number(s): [id number] [facility] EXAMINATION: XR KNEE, LEFT CLINICAL INFORMATION: [...] by: Darryl Zaidi MD 10/10/2024 03:10 PM [facility] Dictated By: Darryl Rey MD Signed By: <Electronically signed by Darryl Lynn MDin OV> 10/10/24 1510 DD/ 1437 TD/TT: 10/10/24 1502 Oil Rag Washer: [facility] EDUCATION DEAN IMG XR PROCEDURES Final Resul t * Hemoglobin A1c (06/20/2024 3:05 PM EDT) Hemoglobin A1c 5.7 <6.0 % [facility] Comment:Hemoglobin A1C Refer ence Range Adults: 4.8 - 6.0 % Non diabetic: < 6.0 % Goal: < 7.0 %Additional Action Suggested: > 8.0 %Note: Hemoglobin A1c results are invalid for patients with abnormal amounts of HbF. Blood transfusions may impact the HbA1c concentration in the patient sample. Estimated Average Glucose 117 mg/dL [facility] Comment:eAG = Estimated ave rage glucose which is %A1C expressed asaverage glucose, using the formula of the B5N-HphhafpRllfjuw Glucose study (ADAG), Diabetes Care, Vol.31,#8,Apr. 2007 Blood Venous blood specimen / Unknown 06/20/2024 3:05 PM EDT 06/20/2024 4:21 PM EDT us Niecy Chacon ANP LAB BLOOD ORDERABLES Final Resul t Performing Organization Address [facility] Co de Phone Number [facility] [address] [place] [phone] * Lipid Panel, Standard (03/19/2024 9:34 AM EDT) Triglycerides 66 <150 mg/dL [facility] Comment:Desirable Triglyceri de: less than 150 mg/dLBorderline High Triglyceride 150-199 mg/dLHigh Triglyceride: 200-499 mg/dLVery High Triglyceride: greater than or equal to 5OO mg/dL Cholesterol 112 <200 mg/dL [facility] Comment:Desirable Cholestero l: less than 200 mg/dLBorderline High Cholesterol: 200-239 mg/dLHigh Cholesterol: greater than 239 mg/dL LDL Cholesterol Calculated 58 <100 mg/dL [facility] Comment:Desirable LDL: less than 100 mg/dLNear Optimal/Above Optimal LDL: 110- 129 mg/dLBorderline High LDL: 130-159 mg/dLHigh LDL: 160-189 mg/dLVery High LDL: greater than or equal to 190 mg/dL HDL Cholesterol 41 >40 mg/dL [facility] Comment:Desirable HDL: great er than 40 mg/dL Note: This HDL assay may give artificially low results in patients with liver disease. Blood Venous blood specimen / Unknown 03/19/2024 9:34 AM EDT 03/19/2024 11:12 AM EDT us Roxana Gotti DO LAB BLOOD ORDERABLES Final R esult Performing Organization Address City/[facility]/ZIP Co de Phone Number [facility] [address] [place] [phone] * Hepatitis C Viral RNA, Quantitative, Real-Time PCR (03/22/2023 11:53 AM EDT) Pathologist [facility] Hepatitis C Viral Load <15 NOT DETECTED NOT DETECTED IU/mL [facility] HCV Log PCR <1.18 NOT DETECTED NOT DETECTED Log IU/mL [facility] Comment:This test was perfor med using Real-Time Polymerase ChainReaction.Reportable Range: 15 IU/mL to 100,000,000 IU/mL(1.18 Log IU/mL to 8.00 Log IU/mL).The analytical performance characteristics of thisassay have been determined by [employer].The modifications have not been cleared or approved bythe FDA. This assay has been validated pursuant to theCLIA regulations and is used for clinical purposes.For more information on this test, go to:http://education.Liquid X/faq/RTI44h7(This link is being provided for informational/educational purposes only.)THIS TEST WAS PERFORMED AT:[facility] [place] [id number] GONG MD Blood 03/22/2023 11:5 3 AM EDT 03/22/2023 1:32 PM EDT Jessica Guillen EDUCATION [facility] BLOOD ORDERABLES Final Res ult [facility] [address] [place] [phone] * HIV-1 RNA, Quantitative, Real-Time PCR (03/22/2023 11:53 AM EDT) [facility] HIV RNA PCR Qn Copies NOT DETECTED NOT DETECTED copies/mL [facility] HIV RNA PCR Qn Log Copies NOT DETECTED NOT DETECTED [facility] Comment:Result Units: Log co pies/mLThis test was performed using Real-Time Polymerase ChainReaction.Reportable Range: 20 copies/mL to 10,000,000 copies/mL(1.30 log copies/mL to 7.00 log copies/mL).THIS TEST WAS PERFORMED AT:[facility] [place] [id number] GONG MD Blood Venous blood specimen / Unknown 03/22/2023 11:53 AM EDT 03/22/2023 1:32 PM EDT us Jessica Guillen EDUCATION [facility] BLOOD ORDERABLES Final Res ult [facility] [address] [place] [address] [phone] from Last 3 Months or Most Recently Relevant to Health Maintenance Insurance [facility] C3 DENTAL-[facility] MEDICAID STAND ADULT Care Teams Line Servicer Relationship Specialty Start Date End Date Haily Robb FNP [address] [place] [address] PCP - General Family Medicine 05/01/22
--- OUTSIDE RECORDS SUMMARY | 2024-12-30 13:56 | XMS_ITS | Encounter Summary ---
Author Organization [employer] Address 75 [facility] 7t [place] [address] Care Team Providers Care Director Stage Name Role Phone Haily Robb FREIGHT RATE ANALYST Primary Care Provider [phone] Reason for Visit * Reason Comments Med Refill Encounter Details Date Type Department Care Team ([facility] st Contact Info) Description 10/29/2023 Refill [facility] [address] [place], [place] [phone] Name, MD Collins [address] [place] [address] Chronic neck pain Social History Tobacco Use [...] the past 12 months, has t he [employer], gas, oil or water company threatened to [...] Description 04/24/2025 1:00 PM EDT Office Visit [facility]ULT [facility] [address] [place] [address] Zachariah, Claudette [address] [place] [address] documented as of this encounter Visit Diagnoses Diagnosis Chronic neck pain Cervicalgia documented in this encounter Additional Health Concerns Assessment Noted Time PHQ-9 Depression Total Score: 0 08/15/20 23 3:52 PM EST documented as of this encounter Care Teams Director Stage Relationship Specialty Start Date End Date Haily Robb FNP [address] [place] [address] PCP - General Family Medicine 05/01/22 documented as of this encounter
--- OUTSIDE RECORDS SUMMARY | 2024-12-30 13:56 | XMS_ITS | Encounter Summary ---
Author Organization [employer] Address [address] [facility] [address] 7[address] [place] [address] Care Team Providers Care Casino Cage Supervisor Name Role Phone Clarisse [facility] Primary Care Provider [phone] Reason for Visit * Reason Onset Date Comments Medication Question 08/24/2022 Encounter Details Date Type Department Care Team ([facility] st Contact Info) Description 08/24/2022 Telephone [facility] MEDICINE [address] [place] [address] [facility] [address] [place] [address] Medication Question Social History Tobacco Use Types [...] call back. States went to pick up and delivery driver his medication and they gave him vitamin C and he would like to know if he should be taking them again . Please call to clarify. documented in this encounter Plan of Treatment Upcoming Encounters Date Type Department Care Team (Late st Contact Info) Description 04/24/2025 1:00 PM EDT Office Visit [facility] ADULT DENTAL [address] [place], [place] [phone] Claudette Soni [address] [place] [address] documented as of this encounter Visit Diagnoses Not on filedocumented in this encounter Care Teams Casino Cage Supervisor Relationship Specialty Start Date End Date Haily Robb FNP [address] [place] [address] PCP - General Family Medicine 05/01/22 documented as of this encounter
--- OUTSIDE RECORDS SUMMARY | 2024-12-30 13:56 | XMS_ITS | Encounter Summary ---
Author Organization [employer] Address 75 [facility] 7t [place] [address] Care Team Providers Care Billing Customer Service Representative Name Role Phone Clarisse [facility] Primary Care Provider [phone] Reason for Visit * Reason Onset Date Comments Appointment Request 10/08/2023 Encounter Details Date Type Department Care Team ([facility] st Contact Info) Description 10/08/2023 Telephone [facility] MEDICINE [address] [place], [place] [phone] [place] [facility] [address] [place] [address] Appointment Request Social History Tobacco Use Types [...] with others, in a hotel, in a skilled nursing, living outside on the street, on a [...] encounter Miscellaneous Notes * Telephone Encounter - eKlli Boucher - 10/08/2023 10:06 AM EST Tc from pt requesting a follow up appointment due to neck pain. States pain has not gotten any better. Please contact pt at [phone] documented in this encounter Plan of Treatment Upcoming Encounters Date Type Department Care Team (Late st Contact Info) Description 04/24/2025 1:00 PM EDT Office Visit [facility] ADULT DENTAL [address] [place] [address] Zachariah, Claudette [address] [place] [address] documented as of this encounter Visit Diagnoses Not on filedocumented in this encounter Additional Health Concerns Assessment Noted Time PHQ-9 Depression Total Score: 0 08/15/20 23 3:52 PM EST documented as of this encounter Care Teams Billing Customer Service Representative Relationship Specialty Start Date End Date Haily Robb FNP [address] [place] [address] PCP - General Family Medicine 05/01/22 documented as of this encounter
--- OUTSIDE RECORDS SUMMARY | 2024-12-30 13:56 | XMS_ITS | Encounter Summary ---
Author Organization [employer] Address [address] [facility] [address] 7t [place] [address] Care Team Providers Care Road Hogger Operator Name Role Phone [facility] Primary Care Provider [phone] Reason for Visit * Reason Onset Date Comments Medication Question 01/16/2023 Encounter Details Date Type Department Care Team ([facility] st Contact Info) Description 01/16/2023 Telephone [facility] MEDICINE [address] [place], [place] [phone] [facility] [address] [place] [address] Medication Question Social History Tobacco Use Types [...] 04/24/2025 1:00 PM EDT Office Visit [facility] ADULT DENTAL [address] [place], [place] [phone] Zachariah, Claudette [address] [place], [place] [phone] documented as of this encounter Visit Diagnoses Not on filedocumented in this encounter Additional Health Concerns Assessment Noted Time PHQ-9 Depression Total Score: 0 11/03/19 23 10:32 AM EST documented as of this encounter Care Teams Road Hogger Operator Relationship Specialty Start Date End Date Haily Robb FNP [address] [place] [address] PCP - General Family Medicine 05/01/22 documented as of this encounter
[2024-12-30 14:43] LABS: Anion Gap 11 (12-20); Blood Urea Nitrogen 18 mg/dL (9-16); Calcium 9.3 mg/dL (8.4-10.2); Carbon Dioxide 31 mmol/L (22-29); Chloride 101 mmol/L (96-108); Estimated Glomerular Filt Rate > 60; Glucose Random 98 mg/dL (60-115); Potassium 4.3 mmol/L (3.3-5.1); Sodium 139 mmol/L (135-145)
[2024-12-31 22:19] LABS: Myeloperoxidase Antibody <1.0 AI; Proteinase 3 PR3 Antibodies <1.0 AI
[2025-01-01 06:50] LABS: Proteinase 3 PR3 Antibodies <1.0 AI
[2025-01-05 12:58] LABS: Atypical P-ANCA Titer 1:20 titer (<1:20); Neutrophil Cyto Ab Screen ATYP P-ANCA POS (NEGATIVE)
== END 2024-12-30 11:49 | disposition home or self-care (01) ==
LOC: HO.10HDL 11:48
PROVIDERS: Visit Provider Internal Medicine Hypertension Specialist
DX: R80.9 Proteinuria, unspecified (principal)
CPT/HCPCS: 36415; 80048; 86021; 86036; 86037

== ENCOUNTER 2025-01-06 10:06 | Outpatient (REF) | payer MEDICAID, SELFPAY ==
[2025-01-06 11:16] LABS: MANUAL DIFF FLAG NO
[2025-01-06 11:23] LABS: Hematocrit 41.4 % (42.0-52.0); Hemoglobin 14.1 g/dl (14.0-18.0); Mean Corpuscular HGB Conc 34.1 g/dl (31.0-36.0); Mean Corpuscular Hemoglobin 31.8 pg (27.0-33.0); Mean Corpuscular Volume 93.5 fL (80.0-98.0); Mean Platelet Volume 11.2 fL (9.4-12.4); Platelet Count 183 X10*3/uL (160-400); Red Blood Count 4.43 X10*6/uL (4.60-5.80); Red Cell Distribution Width 13.8 % (11.0-16.0); White Blood Count 4.4 X10*3/uL (4.8-10.8)
[2025-01-06 11:25] LABS: Basophils Percent Auto 0.7 % (0-2); Eosinophils Absolute Auto 0.1 X10*3/uL (0.0-0.4); Eosinophils Percent Auto 2.2 % (0-4); Hemoglobin 14.6 g/dl (14.0-18.0); Imm Gran Abs Auto 0.01 X10*3/uL (0.00-0.03); Imm Gran Pct Auto 0.2 % (0.0-0.4); Lymphocytes Absolute Auto 1.3 X10*3/uL (1.2-4.9); Lymphocytes Percent Auto 28.4 % (20-40); Mean Corpuscular HGB Conc 33.2 g/dl (31.0-36.0); Mean Corpuscular Hemoglobin 31.3 pg (27.0-33.0); Mean Corpuscular Volume 94.4 fL (80.0-98.0); Mean Platelet Volume 11.4 fL (9.4-12.4); Monocytes Absolute Auto 0.3 X10*3/uL (0.1-1.2); Monocytes Percent Auto 7.2 % (2-11); Neutrophils Absolute Auto 2.8 x10*3/uL (2.0-8.3); Neutrophils Percent Auto 61.3 % (45-73); Platelet Count 194 X10*3/uL (160-400); Red Blood Count 4.66 X10*6/uL (4.60-5.80); Red Cell Distribution Width 13.8 % (11.0-16.0); White Blood Count 4.6 X10*3/uL (4.8-10.8)
[2025-01-06 11:31] LABS: Estimated Average Glucose 117 mg/dL; Hemoglobin A1C 143.2198 umol/L; Hemoglobin A1c % 5.7 % (<6.0); Total Hemoglobin (HGBA1C) 3683.7734 umol/L
--- OUTSIDE RECORDS SUMMARY | 2025-01-06 11:33 | XMS_ITS | Encounter Summary ---
Author Organization [employer] Address [address] [facility] [facility] [address] 7t [place] [address] Care Team Providers Care Cut In Worker Name Role Phone Clarisse [facility] Primary Care Provider [phone] Reason for Visit * Reason Onset Date Comments Medication Question 08/24/2022 Encounter Details Date Type Department Care Team ([facility] st Contact Info) Description 08/24/2022 Telephone [facility] MEDICINE [address] [place], [place] [phone] [facility] [address] [place] [address] Medication Question Social History Tobacco Use Types [...] back. States went to pick pulling machine tender his medication and they gave him vitamin C and he would like to know if he should be taking them again . Please call to clarify. documented in this encounter Plan of Treatment Upcoming Encounters Date Type Department Care Team (Late st Contact Info) Description 04/24/2025 1:00 PM EDT Office Visit [facility] ADULT DENTAL [address] [place] [address] Claudette Soni [address] [place] [address] documented as of this encounter Visit Diagnoses Not on filedocumented in this encounter Care Teams Cut In Worker Relationship Specialty Start Date End Date Haily Robb FNP [address] [place] [address] PCP - General Family Medicine 05/01/22 documented as of this encounter
--- OUTSIDE RECORDS SUMMARY | 2025-01-06 11:33 | XMS_ITS | Encounter Summary ---
Author Organization [employer] Address [address] [facility] [address] 7t [place] [address] Care Team Providers Care Clinic Licensed Practical Nurse Name Role Phone Haily Robb OFFBEARER Primary Care Provider [phone] Encounter Details Date Type Department Care Team ([facility] st Contact Info) Description 01/06/2025 10:40 AM EDT Office Visit [facility] [address] [place], [place] [phone] Elda Love MD [address] [place] [address] LLQ pain (Primary Dx); Positive TB test Social History Tobacco Use Types Packs/Day Years [...] Sign Reading Time Taken Comments Blood Pressure 119/93 01/06/2025 10:58 AM EDT Pulse 78 01/06/2025 10:58 AM EDT Temperature 36.8 ??C (98.2 ??F) 01/06/2025 10:58 AM E DT Respiratory Rate 18 01/06/2025 10:58 AM EDT Oxygen Saturation 98% 01/06/2025 10:58 AM EDT Inhaled Oxygen Concentration - - Weight 63 kg (139 lb) 01/06/2025 10:58 AM EDT Height 172.7 cm (5' 8 ) 01/06/2025 10:58 AM EDT Body Mass Index 21.13 01/06/2025 10:58 AM EDT documented in this encounter Miscellaneous Notes * Assessment & Plan Note - Elda Love MD - 01/06/2025 11:14 AM EDT Associated Problem(s): LLQ pain No evidence of acute abdomen. Chronic. He needs colon cancer screening and has been referred to [facility] in the past. He was encouraged to call in November but did not. We called today to facilitate appointment and give him the number to call. ER precautions discussed. [facility] reports pt has to call himself due to cancelled and did not make follow up. He was given the number [phone]. Istressed the importance of following up with specialist for appropriate work up. He agrees with theplan. 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 We are calling Tb clinic and handing him the appointment/information to contact. I stressed the importance of this appointment. His appointment is at [facility] Tb clinic [phone] on January 27 at 11:00 am. He was given this information with the address. documented in this encounter Plan of Treatment Upcoming Encounters Date Type Department Care Team (Late st Contact Info) Description 04/24/2025 1:00 PM EDT Office Visit [facility] ADULT DENTAL [address] [place], [place] [phone] Kailash Soniaris [address] [place] [address] documented as of this encounter Goals Goal Patient Goal Type Associated Problems Recent Progress Patient-Stated? Author Patient will adhere to medication regimen General No Mary Moreland documented as of this encounter Visit Diagnoses Diagnosis LLQ pain- Primary Abdominal pain, left lower quadrant Positive TB test documented in this encounter Additional Health Concerns Assessment Noted Time PHQ-9 Depression Total Score: 0 10/10/19 25 1:23 PM EST documented as of this encounter Care Teams Clinic Licensed Practical Nurse Relationship Specialty Start Date End Date Haily Robb FNP [address] [place] [address] PCP - General Family Medicine 05/01/22 documented as of this encounter
--- OUTSIDE RECORDS SUMMARY | 2025-01-06 11:33 | XMS_ITS | Encounter Summary ---
Author Organization [employer] Address 75 [facility] 7t [place] [address] Care Team Providers Care Wire Winding Machine Operator Name Role Phone Haily Robb DIRECTOR OF PUPIL PERSONNEL PROGRAM Primary Care Provider [phone] Reason for Visit * Reason Comments Med Refill Encounter Details Date Type Department Care Team ([facility] st Contact Info) Description 10/29/2023 Refill [facility] [address] [place], [place] [phone] Name, MD Collins [address] [place] [address] Chronic neck pain Social History Tobacco Use [...] Description 04/24/2025 1:00 PM EDT Office Visit [facility] ADULT [facility] [address] [place] [address] Zachariah, Claudette [address] [place] [address] documented as of this encounter Visit Diagnoses Diagnosis Chronic neck pain Cervicalgia documented in this encounter Additional Health Concerns Assessment Noted Time PHQ-9 Depression Total Score: 0 08/15/20 23 3:52 PM EST documented as of this encounter Care Teams Wire Winding Machine Operator Relationship Specialty Start Date End Date Haily Robb FNP [address] [place] [address] PCP - General Family Medicine 05/01/22 documented as of this encounter
--- OUTSIDE RECORDS SUMMARY | 2025-01-06 11:33 | XMS_ITS | Encounter Summary ---
Author Organization [employer] Address 75 [facility] 7t [place] [address] Care Team Providers Care Mirror Department Supervisor Name Role Phone Clarisse [facility] Primary Care Provider Reason for Visit * Reason Onset Date Comments Appointment Request 10/08/2023 Encounter Details Date Type Department Care Team ([facility] st Contact Info) Description 10/08/2023 Telephone [facility] MEDICINE 230 [place], [place] [phone] [facility] 230 [place] [address] Appointment Request Social History Tobacco Use Types [...] with others, in a hotel, in a custodial, living outside on the street, on a [...] the past 12 months, has t he [employer], gas, oil or water company threatened to [...] gotten any better. Please contact pt at [phone] documented in this encounter Plan of Treatment Upcoming Encounters Date Type Department Care Team (Late st Contact Info) Description 04/24/2025 1:00 PM EDT Office Visit [facility] ADULT DENTAL [address] [place] [address] Zachariah Claudette [address] [place] [address] documented as of this encounter Visit Diagnoses Not on filedocumented in this encounter Additional Health Concerns Assessment Noted Time PHQ-9 Depression Total Score: 0 08/15/20 23 3:52 PM EST documented as of this encounter Care Teams Mirror Department Supervisor Relationship Specialty Start Date End Date Haily Robb FNP [address] [place] [address] PCP - General Family Medicine 05/01/22 documented as of this encounter
--- OUTSIDE RECORDS SUMMARY | 2025-01-06 11:33 | XMS_ITS | Encounter Summary ---
Author Organization [employer] Address [address] 7t [place] [address] Care Team Providers Care Manager Of Corporate Communications Name Role Phone [place] [facility] Primary Care Provider [phone] Reason for Visit * Reason Comments Med Refill Encounter Details Date Type Department Care Team (Late Contact Info) Description 01/01/2023 Refill [facility] MEDICINE 230 [place], [place] [phone] [facility] [address] [place] [address] Chronic sinusitis, unspecified location Social History Tobacco [...] Visit [facility] ADULT DENTAL [address] [place] [address] Claudette Soni [address] [place] [address] documented as of this encounter Visit Diagnoses Diagnosis Chronic sinusitis, unspecified location documented in this encounter Additional Health Concerns Assessment Noted Time PHQ-9 Depression Total Score: 0 11/03/19 23 10:32 AM EST documented as of this encounter Care Teams Manager Of Corporate Communications Relationship Specialty Start Date End Date Haily Robb FNP [address] [place] [address] PCP - General Family Medicine 05/01/22 documented as of this encounter
--- OUTSIDE RECORDS SUMMARY | 2025-01-06 11:33 | XMS_ITS | Encounter Summary ---
Author Organization [employer] Address 75 [facility] 7t [place] [address] Care Team Providers Care Real Estate Marketing Coordinator Name Role Phone Clarisse [facility] Primary Care Provider [phone] Reason for Visit * Reason Onset Date Comments Nurse Triage 02/11/2024 Encounter Details Date Type Department Care Team ([facility] st Contact Info) Description 02/11/2024 Telephone [facility] MEDICINE [address] [place], [place] [phone] [facility] 230 [place] [address] Nurse Triage Social History Tobacco Use Types [...] the past 12 months, has t he [employer], gas, oil or water [employer] threatened to shut off services in your [...] EDT Triage call returned to patient with [place] sign language interpreter [id number]. Patient reports ongoing issue withleft eye and [...] and she would like him referred to [facility]. No diagnosis in chart.Advised of [facility] for evaluation today. [...] Reason: Other Override Notes: Being treated with workforce development specialist with appt coming in 03/11/24 Video [...] involuntary movements The caller accepted this outcome Maltese speaker documented in this encounter Plan of Treatment Upcoming Encounters Date Type Department Care Team (Late st Contact Info) Description 04/24/2025 1:00 PM EDT Office Visit [facility] ADULT DENTAL [address] [place] [address] Zachariah, Claudette [address] [place] [address] documented as of this encounter Goals Goal Patient Goal Type Associated Problems Recent Progress Patient-Stated? Author Patient will adhere to medication regimen General No Mary Moreland documented as of this encounter Visit Diagnoses Not on filedocumented in this encounter Additional Health Concerns Assessment Noted Time PHQ-9 Depression Total Score: 0 08/15/20 23 3:52 PM EST documented as of this encounter Care Teams Real Estate Marketing Coordinator Relationship Specialty Start Date End Date Haily Robb FNP [address] [place] [address] PCP - General Family Medicine 05/01/22 documented as of this encounter
--- OUTSIDE RECORDS SUMMARY | 2025-01-06 11:33 | XMS_ITS | Encounter Summary ---
Author Organization [employer] Address [address] [facility] [address] 7t [place] [address] Care Team Providers Care Vp Talent Management Name Role Phone Clarisse [facility] Primary Care Provider [phone] Reason for Visit * Reason Onset Date Comments Triage 09/20/2022 Encounter Details Date Type Department Care Team ([facility] st Contact Info) Description 09/20/2022 Telephone [facility] MEDICINE 230 [place], [place] [phone] [facility] 230 [place] [address] Triage Social History Tobacco Use Types Packs/Day [...] 09/20/2022 11:55 AM EST Triage call with [place] Yarn Dyer Helper ID [id number] Pt reports an area on back that [...] No high acuity concerns reported by caller BELGIAN SPEAKER The caller accepted this outcome documented in this encounter Plan of Treatment Upcoming Encounters Date Type Department Care Team (Late st Contact Info) Description 04/24/2025 1:00 PM EDT Office Visit [facility] ADULT [facility] [address] [place] [address] Zachariah, Claudette [address] [place] [address] documented as of this encounter Visit Diagnoses Not on filedocumented in this encounter Care Teams Vp Talent Management Relationship Specialty Start Date End Date Haily Robb FNP 230 [place] [address] PCP - General Family Medicine 05/01/22 documented as of this encounter
--- OUTSIDE RECORDS SUMMARY | 2025-01-06 11:33 | XMS_ITS | Encounter Summary ---
Author Organization [employer] Address 75 [facility] 7t [place] [address] Care Team Providers Care Top Loader Name Role Phone Clarisse [facility] Primary Care Provider [phone] Reason for Visit * Reason Onset Date Comments Med Refill 12/13/2023 Encounter Details Date Type Department Care Team ([facility] st Contact Info) Description 12/13/2023 Telephone [facility] MEDICINE 230 [place], [place] [phone] [facility] [address] [place] [address] Med Refill Social History Tobacco Use Types [...] the past 12 months, has t he [employer] gas, oil or water company threatened to [...] 10:24 AM EDT Medication was sent to [facility] on 11/09/23 with 2 refills. * Telephone Encounter - Christine Taylor - 12/13/2023 10:19 AM EDT TC from pt requesting medication refill. Medications needing refill : melatonin 5 MG tablet To be sent to: [facility] - [place], [place] - [address] [facility] documented in this encounter Plan of Treatment Upcoming Encounters Date Type Department Care Team (Late st Contact Info) Description 04/24/2025 1:00 PM EDT Office Visit [facility] ADULT DENTAL [address] [place] [address] Claudette Soni [address] [place] [address] documented as of this encounter Visit Diagnoses Not on filedocumented in this encounter Additional Health Concerns Assessment Noted Time PHQ-9 Depression Total Score: 0 08/15/20 23 3:52 PM EST documented as of this encounter Care Teams Top Loader Relationship Specialty Start Date End Date Haily Robb FNP [address] [place] [address] PCP - General Family Medicine 05/01/22 documented as of this encounter
--- OUTSIDE RECORDS SUMMARY | 2025-01-06 11:33 | XMS_ITS | Clinical Summary ---
Author Organization [employer] Address [address] [place] [address] Care Team Providers Care Dry Color Tester Name Role Phone Haily Robb TURN DOWN MAN Primary Care Provider [phone] Allergies Active Allergy Reactions Criticality Noted Date Comments Shellfish Allergy Anaphylaxis High 12/01/2024 Allergy Shellfish-Derived Products 2 Seafood Medications * This [...] into both eyes 2 times daily. 07/23/20 24 Active Lotemax 0.5 % gel INSTILL 1 [...] Active Problems Problem Noted Date Diagnosed Date LLQ pain 01/06/2025 Assessment & Plan (01/06/2025 11:25 AM EDT): No evidence of acute abdomen. Chronic. He needs colon cancer screening and has been referred to [facility] in the past. He was encouraged to call in November but did not. We called today to facilitate appointment and give him the number to call. ER precautions discussed. [facility] reports pt has to call himself due to cancelled and did not make follow up. He was given the number [phone]. I stressed the importance of following up with specialist for appropriate work up. He agrees with the plan. Lung nodules 12/19/2024 Interstitial lung disease 11/25/2024 [...] any case Continue Carafate Call GI at [facility] for EGD and colonoscopy Eat small frequent [...] ? Established with therapy and psychiatry at [facility] ? ? No rash, fever, [...] for anxiety sxs) that comes referred from [facility] for exacerbated anxiety in presence [...] a good support system through his family, druze and recovery network, as well as having [...] information on how to reach out to [facility] team and [facility] numbers for crisis. He was also [...] male 11/02/2022 Overview (11/02/2022): ?? Followed by [facility] urology Dr. Lux ?? subcutaneous testosterone injection [...] T spot positive 04/03/24 CXR unremarkable 12/2023 Assessment & Plan (01/06/2025 11:24 AM EDT): T spot positive 04/03/24 CXR unremarkable 12/2023 Pt missed Tb intake and denies knowing about this. We are calling Tb clinic and handing him the appointment/information to contact. I stressed the importance of this appointment. His appointment is at [facility] Tb clinic [phone] on January 27 at 11:00 am. He was given this information with the address. 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 ?? [...] Encounters Date Type Department Care Team Description 01/06/2025 10:40 AM EDT Office Visit [facility] [address] [place] [address] Elda Love MD LLQ pain (Primary Dx); Positive TB test 12/23/2024 Refill [facility] [address] [place] [address] Jana Morgan MD 12/19/[address] [address] Magi Magdaleno RN pulm referral 12/15/2024 11:30 AM EDT Office Visit [address] [address] Haily Robb FNP Moderate somatic symptom disorder (Primary Dx); Positive TB test; Lung nodules; Polyneuropathy; Encounter for immunization; Generalized abdominal pain 12/15/2024 Travel 12/12/2024 Orders Only GENERIC EXTERNAL DATA DEPARTMENT Provider, Generic External Data 12/05/2024 Travel 12/05/2024 Telephone [facility] [address] [place] [address] Haily Robb FNP No Show 12/02/2024 Telephone [facility] [address] [place] [address] Haily Robb FNP ER Follow-up 12/01/2024 Orders Only GENERIC EXTERNAL DATA DEPARTMENT Provider, Generic External Data 11/25/2024 11:00 AM EDT Office Visit [facility] [address] [place] [address] Jana Morgan MD Epigastric pain (Primary Dx); Interstitial lung disease (CMS/HCC); Odynophagia 11/25/2024 Travel 11/24/2024 Telephone [facility] [address] [place] [address] Haily Robb FNP Nurse Triage 11/20/2024 Telephone [facility] [address] [place] [address] Haily Robb FNP Call Back Request 11/17/2024 Telephone [facility] [address] [place] [address] Haily Robb FNP No Show (Patient no show for sick on site ) 11/14/2024 Population Health Risk Score Community [facility] () Department [address] [place] [phone] Provider, Population Health Generic 11/13/2024 Telephone [facility] [address] [place] [address] Haily Robb FNP Lab Orders 11/13/2024 Refill [facility] [address] [place] [address] Haily Robb FNP Vitamin D deficiency 11/04/2024 Orders Only [facility] External Provider, [facility] 10/31/2024 Telephone [facility] [address] [place] [address] Haily Robb FNP Results 10/30/2024 Refill [facility] [address] [place] [address] Haily Robb FNP Epigastric pain 10/28/2024 Refill [facility] [address] [place] [address] Haily Robb, TURN DOWN MAN Polyneuropathy 10/28/2024 Refill [facility] [address] [place] [address] Haily Robb TURN DOWN MAN 10/22/2024 1:00 PM EST Office Visit [facility] [address] [place] [phone] Claudette Soni Partial edentulism, unspecified edentulism class (Primary Dx); Dental calculus; Generalized gingival recession, moderate; Normal oral exam 10/14/2024 Telephone [facility] [address] [place] [address] Haily Robb FNP Results 10/10/2024 1:15 PM EST Office Visit [facility] [address] [place] [address] Haily Robb FNP Polyneuropathy (Primary Dx); Bilateral lower extremity edema; Ataxia; Chronic pain of both knees; Anxiety due to invasive procedure; Shortness of breath 10/10/2024 Travel from Last 3 Months Immunizations Name Administration [...] Mass Index 21.13 01/06/2025 10:58 AM EDT Plan of Treatment Upcoming Encounters Date Type Department Care Team (Late st Contact Info) Description 04/24/2025 1:00 PM EDT Office Visit [facility] [address] [place] [address] Claudette Soni [address] [place] [address] Health Maintenance Due Date Last Done Comments [...] Depression Screening 10/10/2025 10/10/2024, 10/10/19 Tobacco Screening 01/06/2026 01/06/2025 Dental X-Ray: Full Mouth 09/12/2026 09/11/2023, 06/04 [...] Procedure Name Priority Date/Time Associated Diagnosis Comments CBC WITH AUTO DIFFERENTIAL Routine 01/06/2025 10:11 AM EDT Polyneuropathy URINALYSIS WITH REFLEX MICROSCOPIC Routine 12/12/2024 1:17 [...] Recently Relevant to Health Maintenance Results * (ABNORMAL) CBC auto differential (01/06/2025 10:11 AM EDT) Only the most recent of3 resultswithin the time period is included. White Blood Count 4.6(L) 4.8 - 10.8 X10*3/uL [facility] Red Blood Count 4.66 4.60 - 5.80 X10*6/uL [facility] Hemoglobin 14.6 14.0 - 18.0 g/dl [facility] Hematocrit 44.0 42.0 - 52.0 % [facility] Mean Corpuscular Volume 94.4 80.0 - 98.0 fL [facility] Mean Corpuscular Hemoglobin 31.3 27.0 - 33.0 pg [facility] Mean Corpuscular HGB Conc 33.2 31.0 - 36.0 g/dl [facility] Red Cell Distribution Width 13.8 11.0 - 16.0 % [facility] Platelet Count 194 160 - 400 X10*3/uL [facility] Mean Platelet Volume 11.4 9.4 - 12.4 fL [facility] Neutrophils Percent Auto 61.3 45 - 73 % [facility] Imm Gran Pct Auto 0.2 0.0 - 0.4 % [facility] Lymphocytes Percent Auto 28.4 20 - 40 % [facility] Monocytes Percent Auto 7.2 2 - 11 % [facility] Eosinophils Percent Auto 2.2 0 - 4 % [facility] Basophils Percent Auto 0.7 0 - 2 % [facility] NRBC Pct Auto 0.0 0.0 - 0.2 /100WBC [facility] Neutrophils Absolute Auto 2.8 2.0 - 8.3 x10*3/uL [facility] Imm Gran Abs Auto 0.01 0.00 - 0.03 X10*3/uL [facility] Lymphocytes Absolute Auto 1.3 1.2 - 4.9 X10*3/uL [facility] Monocytes Absolute Auto 0.3 0.1 - 1.2 X10*3/uL [facility] Eosinophils Absolute Auto 0.1 0.0 - 0.4 X10*3/uL [facility] Basophils Absolute Auto 0.0 0.0 - 0.2 X10*3/uL [facility] NRBC Abs Auto 0.000 0.0 - 0.012 X10*3/uL [facility] Blood Venous blood specimen / Unknown 01/06/2025 10:11 AM EDT 01/06/2025 11:07 AM EDT [facility] TURN DOWN MAN LAB BLOOD ORDERABLES Final Re sult Performing Organization Address [facility] de Phone Number [facility] [address] [place] [address] [phone] * Urinalysis w/reflex microscopic (12/12/2024 1:17 PM EDT) Only the most recent of2 resultswithin the time period is included. Color Urine Yellow [facility] Appearance Urine Clear [facility] PH 8.5 5.0 - 9.0 [facility] Glucose Urine UA Negative Negative mg/dL [facility] Urine Blood Negative Negative [facility] Specific [place] - Urine 1.010 1.005 - 1.025 [facility] Urine Protein Negative Neg-Trace mg/dL [facility] Urine Ketones Negative Negative mg/dL [facility] Nitrite Urine Negative Negative [facility] Leukocyte Esterase Urine Negative Negative [facility] 12/12/2024 1:17 PM EDT 12/12/2024 1:21 PM EDT Narrative [facility] - 12/12/2024 1:26 PM EDT [id number], Clean Catch Generic External Data Provider LAB URINE ORDERAB LES Final Result Performing Organization Address [facility] Co de Phone Number [facility] [address] [place] [address] [phone] * Lipase (12/12/2024 1:12 PM EDT) Lipase 21 8 - 78 U/L [facility] 12/12/2024 1:12 PM EDT 12/12/2024 1:17 PM EDT Generic External Data Provider LAB BLOOD ORDERAB LES Final Result Performing Organization Address [facility]/State/ZIP Co de Phone Number [facility] [address] [place], [place] [phone] * (ABNORMAL) Comprehensive Metabolic Panel (12/12/2024 1:12 PM EDT) Sodium 140 135 - 145 mmol/L [facility] Potassium 4.3 3.3 - 5.1 mmol/L [facility] Chloride 99 96 - 108 mmol/L [facility] Carbon Dioxide 35(H) 22 - 29 mmol/L [facility] Anion Gap 10(L) 12 - 20 [facility] Urea Nitrogen (BUN) 13 9 - 16 mg/dL [facility] Creatinine, Serum 0.93 0.5 - 1.4 mg/dL [facility] Creatinine Clr Calc Pharmacy 78.1 [facility] Comment:eGFR (calculated fro m the MDRD study equation) and eCrCl(calculated from the Cockcroft-Gault equation) are based ondifferent parameters and may not yield comparable results.If eCrCl result is absurd, please check patient'sheight/weight. Estimated Glomerular Filt Rate >60 [facility] Comment:Chronic Kidney Disea se: Estimated GFR < 60 mL/min/1.64l7Pmpwme Kidney Disease: Estimated GFR < 15 mL/min/1.73m2 Glucose 96 60 - 115 mg/dL [facility] Calcium 9.4 8.4 - 10.2 mg/dL [facility] Bilirubin, Total 0.6 0.0 - 1.0 mg/dL [facility] Aspartate Amino Transferase 33 5 - 37 U/L [facility] Alanine Aminotransferase 41(H) 0 - 40 U/L [facility] Total Protein 7.4 6.5 - 8.0 g/dL [facility] Albumin Level 4.4 3.5 - 5.0 g/dL [facility] Alkaline Phosphatase 57 39 - 117 U/L [facility] 12/12/2024 1:12 PM EDT 12/12/2024 1:17 PM EDT us Generic External Data Provider LAB BLOOD ORDERAB LES Final Result [facility] [address] [place] [address] [phone] * CT Abdomen Pelvis w/ Contrast (12/01/2024 2:39 PM EDT) Anatomical Region Laterality Modality Body, Pelvis, Abdomen Computed T omography 12/01/2024 2:39 PM EDT Narrative 12/01/2024 3:17 PM EDT ? [facility] ?[address] ?[place] [address] ? CT Scan Report ? Signed ? Patient: Jr John Ro ?MR#: ?? [id number] ? : 1970 ?Acct:[id number] ? Age/Sex: 54 / M ?ADM Date: 12/01/24 ? Loc: HO.ED ? Attending Dr: ? Ordering Physician: Eliazar Ashby MD ?? Date of Service: 12/01/24 ?? Procedure(s): CT abdomen pelvis w IV con ?? Accession Number(s): [id number] ? cc: Eliazar Ashby MD; Haily Robb TURN DOWN MAN ? Report Number: ?? [id number]: Total DLP = ??297.39 mGy-cm ?? EXAMINATION: [...] DD/ 1439 ? TD/TT: 12/01/24 1501 ? Soap Slabber: ? Procedure Note Marilyn, Image - 12/01/2024 [address] [place] [address] CT Scan Report Signed Patient: John Fitzpatrick#: [id number] : 1970Acct:[id number] Age/Sex: 54 / MADM Date: 12/01/24 Loc: HO.ED Attending Dr: Ordering Physician: Eliazar Ashby MD Date of Service: 12/01/24 Procedure(s): CT abdomen pelvis w IV con Accession Number(s): [id number] cc: Eliazar Ashby MD; [facility] Report Number: [id number]: Total DLP = 297.39 mGy-cm EXAMINATION: CT [...] 12/01/24 1515 DD/ 1439 TD/TT: 12/01/24 1501 Soap Slabber: [facility] External Provider IMG CT PROCEDURES Final Result * CT Chest w/ Contrast (12/01/2024 2:39 PM EDT) Anatomical Region Laterality Modality Body, Chest Computed Tomogra phy 12/01/2024 2:39 PM EDT Narrative 12/01/2024 3:17 PM EDT ? [facility] ?[address] ?[place] [address] ? CT Scan Report ? Signed ? Patient: John Fitzpatrick ?MR#: ?? [id number] ? : 1970 ?Acct:[id number] ? Age/Sex: 54 / M ?ADM Date: 12/01/24 ? Loc: HO.ED ? Attending Dr: ? Ordering Physician: Eliazar Ashby MD ?? Date of Service: 12/01/24 ?? Procedure(s): CT chest w IV con ?? Accession Number(s): [id number] ? cc: Eliazar Ashby MD; Haily Robb TURN DOWN MAN ? Report Number: ?? [id number]: Total DLP = ??176.61 mGy-cm ?? EXAMINATION: [...] DD/ 1439 ? TD/TT: 12/01/24 1501 ? Soap Slabber: ? Procedure Note Marilyn, Image - 12/01/[address] [address] CT Scan Report Signed Patient: John Fitzpatrick [facility]#: [id number] : 1970Acct:[id number] Age/Sex: 54 / MADM Date: 12/01/24 Loc: HO.ED Attending Dr: Ordering Physician: Eliazar Ashby MD Date of Service: 12/01/24 Procedure(s): CT chest w IV con Accession Number(s): [id number] cc: Eliazar Ashby MD; [facility] Report Number: [id number]: Total DLP = 176.61 mGy-cm EXAMINATION: CT [...] 12/01/24 1515 DD/ 1439 TD/TT: 12/01/24 1501 Soap Slabber: [facility] External Provider IMG CT PROCEDURES Final Result * (ABNORMAL) T-SPOT??.TB (12/01/2024 11:52 AM EDT) T Spot TB Positive( A) Negative [facility] Comment: Diagnosing or excluding tuberculosis [...] as aquantitative test. TS PANEL A 18 [facility] TS PANEL B 0 [facility] Negative Control Passed [facility] Positive Control Passed [facility] Comment:For additional infor mation, please refer tohttp://education.Boomlagoon/faq/CBB305(This link is being provided for informational/educational purposes only.)REPORT COMMENT:REC'D AT [facility] TEST WAS PERFORMED AT:[id number] [place] [address]XOPXAVFMARISA ESPINAL MD,PHD 12/01/2024 11:5 2 AM EDT 12/01/2024 11:56 AM EDT us Generic External Data Provider LAB BLOOD ORDERAB LES Final Result [facility] [address] [place] [phone] * SARS-CoV-2 RNA, Influenza A/B, and RSV RNA, Ql NAAT (12/01/2024 10:45 AM EDT) Pathologist [facility] Influenza A PCR NEGATIVE Negative [facility] Influenza B PCR NEGATIVE Negative [facility] Resp Syncy Virus RNA Qual PCR NEGATIVE Negative [facility] SARS COV2 PCR NEGATIVE Negative [facility] Comment:All test results mus t [...] use by authorized laboratories.Testing performed on the [employer] utilizingreal-time RT-PCR.All SARS CoV2 and positive influenza A/B results arereported to [facility]. 12/01/2024 10:4 5 AM EDT 12/01/2024 10:51 AM EDT Generic External Data Provider LAB MICROBIOLOGY - GENERAL ORDERABLES Final Result [facility] [address] [place] [phone] * (ABNORMAL) Basic Metabolic Panel (12/01/2024 10:45 AM EDT) Pathologist [facility] Sodium 140 135 - 145 mmol/L [facility] Potassium 4.2 3.3 - 5.1 mmol/L [facility] Chloride 102 96 - 108 mmol/L [facility] Carbon Dioxide 32(H) 22 - 29 mmol/L [facility] Anion Gap 10(L) 12 - 20 [facility] Urea Nitrogen (BUN) 22(H) 9 - 16 mg/dL [facility] Creatinine, Serum 1.15 0.5 - 1.4 mg/dL [facility] Creatinine Clr Calc Pharmacy 61.3 [facility] Comment:eGFR (calculated fro m the MDRD study equation) and eCrCl(calculated from the Cockcroft-Gault equation) are based ondifferent parameters and may not yield comparable results.If eCrCl result is absurd, please check patient'sheight/weight. Estimated Glomerular Filt Rate >60 [facility] Comment:Chronic Kidney Disea se: Estimated GFR < 60 mL/min/1.09o4Diifba Kidney Disease: Estimated GFR < 15 mL/min/1.73m2 Glucose 104 60 - 115 mg/dL [facility] Calcium 9.4 8.4 - 10.2 mg/dL [facility] 12/01/2024 10:4 5 AM EDT 12/01/2024 10:51 AM EDT us Generic External Data Provider LAB BLOOD ORDERAB LES Final Result Performing Organization Address City/State/[facility] Co de Phone Number [facility] [address] [place] [address] [phone] * XR Chest 2 Views (12/01/2024 10:33 AM EDT) Only the most recent of2 resultswithin the time period is included. Anatomical Region Laterality Modality Chest Radiographic Cecelia ging 12/01/2024 10:3 3 AM EDT Narrative 12/01/2024 10:46 AM EDT ? [facility] ?[address] ?[place] [address] ?XRay Report ? Signed ? Patient: John Fitzpatrick ?MR#: ?? [id number] ? : 1970 ?Acct:[id number] ? Age/Sex: 54 / M ?ADM Date: 12/01/24 ? Loc: HO.ED ? Attending Dr: ? Ordering Physician: Generic ED Physician ?? Date of Service: 12/01/24 ?? Procedure(s): XR chest 2V ?? Accession Number(s): [id number] ? cc: Generic ED Physician; ClarisseHaily TURN DOWN MAN ? EXAMINATION: ?? XR CHEST ? CLINICAL [...] DD/ 1033 ? TD/TT: 12/01/24 1040 ? Soap Slabber: ? Procedure Note Donluisjaylynerynter, Image - 12/01/[address] [address] XRay Report Signed Patient: John Fitzpatrick AMR#: [id number] : 1970Acct:[id number] Age/Sex: 54 / MADM Date: 12/01/24 Loc: HO.ED Attending Dr: Ordering Physician: Generic ED Physician Date of Service: 12/01/24 Procedure(s): XR chest 2V Accession Number(s): [id number] cc: Generic ED Physician; [facility] EXAMINATION: XR CHEST CLINICAL INFORMATION: sob COMPARISON: [...] 12/01/24 1043 DD/ 1033 TD/TT: 12/01/24 1040 Soap Slabber: us [facility] External Provider IMG XR PROCEDURES Final Result * US Abdomen Limited (11/04/2024 11:49 AM EST) Anatomical Region Laterality Modality Abdomen Ultrasound 11/04/2024 11:4 9 AM EST Narrative 11/04/2024 12:32 PM EST ? [facility] ?[address] ?[place] [address] ? Ultrasound Report ? Signed ? Patient: Jr John Ro ?MR#: ?? [id number] ? : 1970 ?Acct:[id number] ? Age/Sex: 54 / M ?ADM Date: 11/04/24 ? Loc: HO.ED ? Attending Dr: ? Ordering Physician: Lorena Banks DO ?? Date of Service: 11/04/24 ?? Procedure(s): US abdomen limited ?? Accession Number(s): [id number] ? cc: Lorena Banks DO; Haily Robb TURN DOWN MAN ? EXAMINATION: ?? US ABDOMEN LIMITED ? [...] DD/ 1149 ? TD/TT: 11/04/24 1202 ? Soap Slabber: ? Procedure Note Donotuseinterpreter, Image - 11/04/[address] [address] Ultrasound Report Signed Patient: John Fitzpatrick AMR#: [id number] : 1970Acct:[id number] Age/Sex: 54 / MADM Date: 11/04/24 Loc: HO.ED Attending Dr: Ordering Physician: Lorena Banks DO Date of Service: 11/04/24 Procedure(s): US abdomen limited Accession Number(s): [id number] cc: Lorena Banks DO; [facility] EXAMINATION: US ABDOMEN LIMITED CLINICAL INFORMATION: [...] 11/04/24 1228 DD/ 1149 TD/TT: 11/04/24 1202 Soap Slabber: us [facility] External Provider IMG US PROCEDURES Final Result * XR Knee 4+ Views Right (10/10/2024 2:37 PM EST) Anatomical Region Laterality Modality Lower Extremities, Knee Right Radiogra phic Imaging 10/10/2024 2:37 PM EST Narrative 10/10/2024 3:12 PM EST ? [facility] ?[address] ?[place] [address] ?XRay Report ? Signed ? Patient: John Fitzpatrick ?MR#: ?? [id number] ? : 1970 ?Acct:[id number] ? Age/Sex: 54 / M ?ADM Date: 10/10/24 ? Loc: HO.CARD ? Attending Dr: Pepper Balderrama MD ? Ordering Physician: Haily Robb ?? Date of Service: 10/10/24 ?? Procedure(s): XR knee RT 4V ?? Accession Number(s): [id number] ? cc: Haily Robb TURN DOWN MAN ? EXAMINATION: ?? XR KNEE, RIGHT ? [...] DD/ 1437 ? TD/TT: 10/10/24 1502 ? Soap Slabber: ? Procedure Note Donjosefinater, Image - 10/10/[address] [address] XRay Report Signed Patient: John Fitzpatrick AMR#: [id number] : 1970Acct:[id number] Age/Sex: 54 / MADM Date: 10/10/24 Loc: HO.CARD Attending Dr: Pepper Balderrama MD Ordering Physician: [facility] Date of Service: 10/10/24 Procedure(s): XR knee RT 4V Accession Number(s): [id number] cc: [facility] EXAMINATION: XR KNEE, RIGHT CLINICAL INFORMATION: chronic [...] 10/10/24 1509 DD/ 1437 TD/TT: 10/10/24 1502 Soap Slabber: [facility] TURN DOWN MAN IMG XR PROCEDURES Final Resul t * XR Knee 4+ Views Left (10/10/2024 2:37 PM EST) Anatomical Region Laterality Modality Lower Extremities, Knee Left Radiogra phic Imaging 10/10/2024 2:37 PM EST Narrative 10/10/2024 3:12 PM EST ? [facility] ?[address] ?[place] [address] ?XRay Report ? Signed ? Patient: Jr Ro,Jean ?MR#: ?? [id number] ? : 1970 ?Acct:[id number] ? Age/Sex: 54 / M ?ADM Date: 10/10/24 ? Loc: HO.CARD ? Attending Dr: Pepper Balderrama MD ? Ordering Physician: Haily Robb ?? Date of Service: 10/10/24 ?? Procedure(s): XR knee LT 4V ?? Accession Number(s): [id number] ? cc: Haily Robb ? EXAMINATION: ?? [...] DD/ 1437 ? TD/TT: 10/10/24 1502 ? Soap Slabber: ? Procedure Note Marilyn, Image - 10/10/[address] [address] XRay Report Signed Patient: John Fitzpatrick AMR#: [id number] : 1970Acct:[id number] Age/Sex: 54 / MADM Date: 10/10/24 Loc: YOGESH Attending Dr: Pepper Balderrama MD Ordering Physician: Haily Robb Date of Service: 10/10/24 Procedure(s): XR knee LT 4V Accession Number(s): [id number] cc: Haily Robb [facility] EXAMINATION: XR KNEE, LEFT CLINICAL INFORMATION: chronic [...] 10/10/24 1510 DD/ 1437 TD/TT: 10/10/24 1502 Soap Slabber: [facility] TURN DOWN MAN IMG XR PROCEDURES Final Resul t * Hemoglobin A1c (06/20/2024 3:05 PM EDT) Hemoglobin A1c 5.7 <6.0 % [facility] Comment:Hemoglobin A1C Refer ence Range Adults: 4.8 - 6.0 % Non diabetic: < 6.0 % Goal: < 7.0 %Additional Action Suggested: > 8.0 %Note: Hemoglobin A1c results are invalid for patients with abnormal amounts of HbF. Blood transfusions may impact the HbA1c concentration in the patient sample. Estimated Average Glucose 117 mg/dL [facility] Comment:eAG = Estimated ave rage glucose which is %A1C expressed asaverage glucose, using the formula of the H3W-MsemhrvVegmulx Glucose study (ADAG), Diabetes Care, Vol.31,#8,Apr. 2007 Blood Venous blood specimen / Unknown 06/20/2024 3:05 PM EDT 06/20/2024 4:21 PM EDT [facility] LAB BLOOD ORDERABLES Final Resul t [facility] [address] [place] [phone] * Lipid Panel, Standard (03/19/2024 9:34 AM EDT) Triglycerides 66 <150 mg/dL [facility] Comment:Desirable Triglyceri de: less than 150 mg/dLBorderline High Triglyceride 150-199 mg/dLHigh Triglyceride: 200-499 mg/dLVery High Triglyceride: greater than or equal to 5OO mg/dL Cholesterol 112 <200 mg/dL [facility] Comment:Desirable Cholestero l: less than 200 mg/dLBorderline High Cholesterol: 200-239 mg/dLHigh Cholesterol: greater than 239 mg/dL LDL Cholesterol Calculated 58 <100 mg/dL [facility] Comment:Desirable LDL: less than 100 mg/dLNear Optimal/Above Optimal LDL: 110- 129 mg/dLBorderline High LDL: 130-159 mg/dLHigh LDL: 160-189 mg/dLVery High LDL: greater than or equal to 190 mg/dL HDL Cholesterol 41 >40 mg/dL [facility] Comment:Desirable HDL: great er than 40 mg/dL Note: This HDL assay may give artificially low results in patients with liver disease. Blood Venous blood specimen / Unknown 03/19/2024 9:34 AM EDT 03/19/2024 11:12 AM EDT us Roxana Gotti DO LAB BLOOD ORDERABLES Final R esult [facility] [address] [place] [phone] * Hepatitis C Viral RNA, Quantitative, Real-Time PCR (03/22/2023 11:53 AM EDT) Hepatitis C Viral Load <15 NOT DETECTED NOT DETECTED IU/mL [facility] HCV Log PCR <1.18 NOT DETECTED NOT DETECTED Log IU/mL [facility] Comment:This test was perfor med using Real-Time Polymerase ChainReaction.Reportable Range: 15 IU/mL to 100,000,000 IU/mL(1.18 Log IU/mL to 8.00 Log IU/mL).The analytical performance characteristics of thisassay have been determined by [employer].The modifications have not been cleared or approved bythe FDA. This assay has been validated pursuant to theCLIA regulations and is used for clinical purposes.For more information on this test, go to:http://education.Boomlagoon/faq/PCB15z0(This link is being provided for informational/educational purposes only.)THIS TEST WAS PERFORMED AT:[facility] [address] [id number] GONG MD Blood 03/22/2023 11:5 3 AM EDT 03/22/2023 1:32 PM EDT us Jessica Guillen [facility] LAB BLOOD ORDERABLES Final Res ult Performing Organization Address [facility] Co de Phone Number [facility] [address] [place] [phone] * HIV-1 RNA, Quantitative, Real-Time PCR (03/22/2023 11:53 AM EDT) HIV RNA PCR Qn Copies NOT DETECTED NOT DETECTED copies/mL [facility] HIV RNA PCR Qn Log Copies NOT DETECTED NOT DETECTED [facility] Comment:Result Units: Log co pies/mLThis test was performed using Real-Time Polymerase ChainReaction.Reportable Range: 20 copies/mL to 10,000,000 copies/mL(1.30 log copies/mL to 7.00 log copies/mL).THIS TEST WAS PERFORMED AT:[facility] [address] [id number] GONG MD Blood Venous blood specimen / Unknown 03/22/2023 11:53 AM EDT 03/22/2023 1:32 PM EDT Jessica Guillen [facility] LAB BLOOD ORDERABLES Final Res ult Performing Organization Address [facility] Co de Phone Number [facility] [address] [place] [phone] from Last 3 Months or Most Recently Relevant to Health Maintenance Insurance [facility] C3 DENTAL-[facility] MEDICAID STAND ADULT Care Teams Dry Color Tester Relationship Specialty Start Date End Date [place] Springs[place] mol[place] FNP [address] [place] [address] PCP - General Family Medicine 05/01/22
--- OUTSIDE RECORDS SUMMARY | 2025-01-06 11:33 | XMS_ITS | Encounter Summary ---
Author Organization [employer] Address [address] [facility] 7t [place] [address] Care Team Providers Care Plaster Pattern Caster Name Role Phone [facility] Primary Care Provider [phone] Reason for Visit * Reason Comments Med Refill Encounter Details Date Type Department Care Team ([facility] st Contact Info) Description 09/05/2022 Telephone [facility] [address] [place], [place] [phone] [facility] [address] [place] [address] Med Refill Social History Tobacco Use Types [...] - 09/06/2022 8:18 AM EST TC via P/I#[id number], explained to pt that his [facility] Provided pt the phone number for the [facility] site and encouraged him to call them for all refills of his Clonazepam. Pt thanked blurb writer and said he understood. * Telephone Encounter - Yessi Cannon RN - 09/05/2022 3:04 PM EST Note on 08/02/22: Medication request:CLONAZEPAM Last visit 06/27/22. You sent a refill in June, it was picked up 07/12/22. He was originally getting this elsewhere. Not sure what you'd like to do. If you'll now be prescribing, then would you like him on CITIZENSHIP TEACHER? documented in this encounter Plan of Treatment Upcoming Encounters Date Type Department Care Team (Late st Contact Info) Description 04/24/2025 1:00 PM EDT Office Visit [facility] ADULT DENTAL [address] [place] [address] Claudette Soni [address] [place] [address] documented as of this encounter Visit Diagnoses Diagnosis Other specified anxiety disorders documented in this encounter Care Teams Plaster Pattern Caster Relationship Specialty Start Date End Date Haily Robb FNP [address] [place] [address] PCP - General Family Medicine 05/01/22 documented as of this encounter
--- OUTSIDE RECORDS SUMMARY | 2025-01-06 11:33 | XMS_ITS | Encounter Summary ---
Author Organization [employer] Address [address] [facility] 7t [place] [address] Care Team Providers Care Industrial Relations Counselor Name Role Phone Clarisse [facility] Primary Care Provider [phone] Reason for Visit * Reason Onset Date Comments Med Refill 09/25/2023 Encounter Details Date Type Department Care Team ([facility] st Contact Info) Description 09/25/2023 Telephone [facility] [address] [place], [place] [phone] [place] [facility] [address] [place] [address] Med Refill Social History Tobacco Use Types [...] 200 MG/ML injection To be sent to: [facility] - [place], [place] - [address] documented in this encounter Plan of Treatment Upcoming Encounters Date Type Department Care Team (Late st Contact Info) Description 04/24/2025 1:00 PM EDT [facility] Visit [facility] [address] [place] [address] Claudette Soni [address] [place] [address] documented as of this encounter Visit Diagnoses Not on filedocumented in this encounter Additional Health Concerns Assessment Noted Time PHQ-9 Depression Total Score: 0 08/15/20 23 3:52 PM EST documented as of this encounter Care Teams Industrial Relations Counselor Relationship Specialty Start Date End Date Haily Robb FNP [address] [place] [address] PCP - General Family Medicine 05/01/22 documented as of this encounter
--- OUTSIDE RECORDS SUMMARY | 2025-01-06 11:33 | XMS_ITS | Encounter Summary ---
Author Organization [employer] Address [address] 7[address] [place] [address] Care Team Providers Care Cash Crop Farmer Name Role Phone Clarisse [facility] Primary Care Provider [phone] Reason for Visit * Reason Onset Date Comments Medication Question 01/16/2023 Encounter Details Date Type Department Care Team ([facility] st Contact Info) Description 01/16/2023 Telephone [facility] MEDICINE [address] [place], [place] [phone] [facility] [address] [place] [address] Medication Question Social History Tobacco Use Types [...] Description 04/24/2025 1:00 PM EDT Office Visit [facility] ADULT DENTAL [address] [place], [place] [phone] Zachariah, Claudette [address] [place] [address] documented as of this encounter Visit Diagnoses Not on filedocumented in this encounter Additional Health Concerns Assessment Noted Time PHQ-9 Depression Total Score: 0 11/03/19 23 10:32 AM EST documented as of this encounter Care Teams Cash Crop Farmer Relationship Specialty Start Date End Date Haily Robb FNP [address] [place] [address] PCP - General Family Medicine 05/01/22 documented as of this encounter
--- OUTSIDE RECORDS SUMMARY | 2025-01-06 11:33 | XMS_ITS | Encounter Summary ---
Author Organization [email or web address] Address [address] [facility] [address] [facility] [address]t [place] [address] Care Team Providers Care Rectangular Tank Cooper Name Role Phone Clarisse [facility] Primary Care Provider Reason for Visit * Reason Comments Med Refill Encounter Details Date Type Department Care Team ([facility] st Contact Info) Description 07/08/2024 Refill [facility] MEDICINE [address] [place], [place] [phone] [place] [facility] 230 [place] [address] Mixed anxiety and depressive disorder Social History [...] Office Visit [facility] ADULT DENTAL [address] [place] [address] Zachariah, Claudette [address] [place] [address] documented as of this encounter Goals Goal [...] documented as of this encounter Care Teams Rectangular Tank Cooper Relationship Specialty Start Date End Date Haily Robb FNP [address] [place] [address] PCP - General Family Medicine 05/01/22 documented as of this encounter
--- OUTSIDE RECORDS SUMMARY | 2025-01-06 11:33 | XMS_ITS | Encounter Summary ---
Author Organization [employer] Address [address] 7[address] [place] [address] Care Team Providers Care Reconciliation Accountant Name Role Phone Clarisse [facility] Primary Care Provider [phone] Reason for Visit * Reason Onset Date Comments triage 11/10/2022 Encounter Details Date Type Department Care Team ([facility] st Contact Info) Description 11/10/2022 Telephone [facility] [address] [place], [place] [phone] [facility] [address] [place] [address] triage Social History Tobacco Use Types Packs/Day [...] office. Pt agrees to come into [facility] for exam. Pt also advised [...] question The caller accepted this outcome speaks sudanese documented in this encounter Plan of Treatment Upcoming Encounters Date Type Department Care Team (Late st Contact Info) Description 04/24/2025 1:00 PM EDT Office Visit [facility] ADULT DENTAL [address] [place] [address] Zachariah, Claudette [address] [place] [address] documented as of this encounter Visit Diagnoses Not on filedocumented in this encounter Additional Health Concerns Assessment Noted Time PHQ-9 Depression Total Score: 0 11/03/19 10:32 AM EST documented as of this encounter Care Teams Reconciliation Accountant Relationship Specialty Start Date End Date Haily Robb FNP [address] [place] [address] PCP - General Family Medicine 05/01/22 documented as of this encounter
--- OUTSIDE RECORDS SUMMARY | 2025-01-06 11:34 | XMS_ITS | Encounter Summary ---
Author Organization [employer] Address [address] [place] [address] Care Team Providers Care Gerontology Aide Name Role Phone Haily Robb CODING MACHINE OPERATOR Primary Care Provider [phone] Reason for Visit * Reason Comments Med Refill Encounter Details Date Type Department Care Team (Late st Contact Info) Description 04/02/2023 Refill [facility] [address] [place], [place] [phone] Hollis Rutledge MD [address] [place] [address] Social History Tobacco Use Types Packs/Day Years [...] Visit [facility] ADULT DENTAL [address] [place] [address] Claudette Soni [address] [place] [address] documented as of this encounter Visit Diagnoses Not on filedocumented in this encounter Additional Health Concerns Assessment Noted Time PHQ-9 Depression Total Score: 0 01/26/20 23 3:38 PM EDT documented as of this encounter Care Teams Gerontology Aide Relationship Specialty Start Date End Date Haily Robb FNP [address] [place] [address] PCP - General Family Medicine 05/01/22 documented as of this encounter
--- OUTSIDE RECORDS SUMMARY | 2025-01-06 11:34 | XMS_ITS | Encounter Summary ---
Author Organization [employer] Address [address] 7[address] [place] [address] Care Team Providers Care Asset Protection Specialist Name Role Phone Clarisse Haily CORNELL Primary Care Provider [phone] Encounter Details Date Type Department Care Team (Latest Contact Info) Description 06/16/2020 Abstract [facility] CONVERSIONS Dental, Provider, DDS Social History [...] Description 04/24/2025 1:00 PM EDT Office Visit [facility] ADULT DENTAL [address] [place] [address] Zachariah, Claudette [address] [place] [address] documented as of this encounter Visit Diagnoses Not on filedocumented in this encounter Care Teams Asset Protection Specialist Relationship Specialty Start Date End Date Haily Robb FNP [address] [place] [address] PCP - General Family Medicine 05/01/22 documented as of this encounter
--- OUTSIDE RECORDS SUMMARY | 2025-01-06 11:34 | XMS_ITS | Encounter Summary ---
Author Organization [employer] Address [address]t [place] [address] Care Team Providers Care Figure Model Name Role Phone Clarisse [facility] Primary Care Provider [phone] Reason for Visit * Reason Onset Date Comments Results 03/16/2023 Encounter Details Date Type Department Care Team ([facility] st Contact Info) Description 03/16/2023 Telephone [facility] MED[facility]INE [address] [place], [place] [phone] [place] [facility] 230 [place] [address] Results Social History Tobacco Use Types Packs/Day [...] 03/20/2023 4:06 PM EDT Return T/C to [phone] for below message, No answer. LVM to call back on [phone]. * Telephone Encounter - Kelli Boucher - 03/16/2023 2:04 PM EDT Tc from pt requesting a call in regards to results to recent lab orders. Please contact pt at [phone] (Kazakh speaker) documented in this encounter Plan of Treatment Upcoming Encounters Date Type Department Care Team (Late st Contact Info) Description 04/24/2025 1:00 PM EDT Office Visit [facility] ADULT DENTAL [address] [place] [address] Claudette Soni [address] [place] [address] documented as of this encounter Visit Diagnoses Not on filedocumented in this encounter Additional Health Concerns Assessment Noted Time PHQ-9 Depression Total Score: 0 01/26/20 23 3:38 PM EDT documented as of this encounter Care Teams Figure Model Relationship Specialty Start Date End Date Haily Robb FNP [address] [place] [address] PCP - General Family Medicine 05/01/22 documented as of this encounter
--- OUTSIDE RECORDS SUMMARY | 2025-01-06 11:34 | XMS_ITS | Encounter Summary ---
Author Organization [employer] Address [address] 7t [place] [address] Care Team Providers Care Spinner Continuous Name Role Phone Clarisse [facility] Primary Care Provider [phone] Reason for Visit * Reason Comments Med Refill Encounter Details Date Type Department Care Team ([facility] st Contact Info) Description 08/28/2024 Refill [facility] [address] [place], [place] [phone] [place] [address] [place] [address] Mixed anxiety and depressive disorder Social History [...] Visit [facility] ADULT DENTAL [address] [place] [address] Zachariah, Claudette [address] [place] [address] documented as of this encounter Goals Goal [...] documented as of this encounter Care Teams Spinner Continuous Relationship Specialty Start Date End Date Haily Robb FNP [address] [place] [address] PCP - General Family Medicine 05/01/22 documented as of this encounter
--- OUTSIDE RECORDS SUMMARY | 2025-01-06 11:34 | XMS_ITS | Encounter Summary ---
Author Organization [employer] Address [address] [facility] 7t [place] [address] Care Team Providers Care Supervisor Dry Cell Assembly Name Role Phone Haily Robb AFRICAN HISTORY PROFESSOR Primary Care Provider [phone] Reason for Visit * Reason Comments Med Refill Encounter Details Date Type Department Care Team (Late st Contact Info) Description 04/02/2023 Refill [facility] MEDICINE [address] [place] [address] Juanjose Barton MD [address] [place] [address] Chronic pruritus Social History Tobacco Use Types [...] 04/24/2025 1:00 PM EDT Office Visit [facility] ADULT DENTAL [address] [place] [address] Claudette Soni [address] [place] [address] documented as of this encounter Visit Diagnoses Diagnosis Chronic pruritus documented in this encounter Additional Health Concerns Assessment Noted Time PHQ-9 Depression Total Score: 0 01/26/20 23 3:38 PM EDT documented as of this encounter Care Teams Supervisor Dry Cell Assembly Relationship Specialty Start Date End Date Haily Robb FNP [address] [place] [address] PCP - General Family Medicine 05/01/22 documented as of this encounter
--- OUTSIDE RECORDS SUMMARY | 2025-01-06 11:34 | XMS_ITS | Encounter Summary ---
Author Organization [employer] Address [address] [place] [address] Care Team Providers Care Instructor Extension Work Name Role Phone Clarisse [facility] Primary Care Provider [phone] Reason for Visit * Reason Onset Date Comments Nurse Triage 02/16/2023 Encounter Details Date Type Department Care Team ([facility] st Contact Info) Description 02/16/2023 Telephone [facility] MEDIC[facility] [address] [place], [place] [phone] [place] [facility] [address] [place] [address] Nurse Triage Social History Tobacco Use Types [...] - 02/23/2023 2:49 PM EDT T/C to [phone] through [employer] interpreters id - [id number] for below message, pt. Verbally agreed and understood. * Telephone Encounter - Angela Whitman LPN - 02/16/2023 2:48 PM EDT Triage call returned to patient via [employer] [phone]. Patient called with concerns of Left eye burning and tearing at times with blurred vision. No irritant or object in eye at this time. Patient reports that he was seen some time ago in [facility] [place] and was given order to obtain eye drops for dry eye. He is angry that he had to pay for them out of pocket and that they did not help. Patient requesting specifically a referral and declines appts. in [facility] or with Team providers later in the [...] suggested disposition Override Notes: Patient seen in [facility] [place] and was told to use eye drops several months ago. Patient requesting only referral to Senior Java Architect. Video visit not offered Positive Triage Question: [...] The caller accepted this outcome Patient speaks syriac documented in this encounter Plan of Treatment Upcoming Encounters Date Type Department Care Team (Late st Contact Info) Description 04/24/2025 1:00 PM EDT Office Visit [facility] ADULT DENTAL [address] [place] [address] Kailash Soniaris [address] [place] [address] documented as of this encounter Visit Diagnoses Not on filedocumented in this encounter Additional Health Concerns Assessment Noted Time PHQ-9 Depression Total Score: 0 01/26/20 23 3:38 PM EDT documented as of this encounter Care Teams Instructor Extension Work Relationship Specialty Start Date End Date Haily Robb FNP [address] [place] [address] PCP - General Family Medicine 05/01/22 documented as of this encounter
--- OUTSIDE RECORDS SUMMARY | 2025-01-06 11:34 | XMS_ITS | Encounter Summary ---
Author Organization [employer] Address [address] 7t [place] [address] Care Team Providers Care Food Scientist Name Role Phone Clarisse Haily CORNELL Primary Care Provider [phone] Encounter Details Date Type Department Care Team (Latest Contact Info) Description 06/01/2022 Abstract [facility] CONVERSIONS Dental, Provider, DDS Social History Tobacco [...] [facility] [address] [place] [address] Zachariah, Claudette [address] [place] [address] documented as of this encounter Visit Diagnoses Not on filedocumented in this encounter Care Teams Food Scientist Relationship Specialty Start Date End Date Haily Robb FNP 230 [place] [address] PCP - General Family Medicine 05/01/22 documented as of this encounter
--- OUTSIDE RECORDS SUMMARY | 2025-01-06 11:34 | XMS_ITS | Clinical Summary ---
Author Organization [facility] Address [address] [place] [address] Phone Care Team Providers Care Terrapin Fisher Name Role Phone [facility] Primary Care Provider Medications polyethylene glycol (Golytely) 236-22.74-6.74 -5.86 gram [...] Self 1970 [address] [facility] [address] [place] [phone] MEDICAID - [place] Care Teams Terrapin Fisher Relationship Specialty Start Date End Date Haily Robb [address] [phone] PCP - General 05/20/24
[2025-01-06 12:15] LABS: Prostate Specific Antigen 2.32 ng/mL (<0.05-4.0)
[2025-01-06 12:17] LABS: TSH reflex Free T4 2.34 uIU/mL (0.32-4.0)
[2025-01-06 14:26] LABS: Alanine Aminotransferase 23 U/L (0-40); Albumin Level 4.4 g/dL (3.5-5.0); Anion Gap 10 (12-20); Aspartate Amino Transferase 26 U/L (5-37); Bilirubin Total 1.7 mg/dL (0.0-1.0); Blood Urea Nitrogen 15 mg/dL (9-16); Calcium 9.3 mg/dL (8.4-10.2); Carbon Dioxide 32 mmol/L (22-29); Chloride 102 mmol/L (96-108); Estimated Glomerular Filt Rate > 60; Glucose Random 93 mg/dL (60-115); Potassium 4.1 mmol/L (3.3-5.1); Sodium 140 mmol/L (135-145); Total Protein 7.3 g/dL (6.5-8.0)
[2025-01-06 18:19] LABS: Alkaline Phosphatase 48 U/L (39-117)
[2025-01-07 04:51] LABS: ~HepC Num1 0.13 S/CO (0.00-0.79); ~Hepatitis C Antibody Nonreactive (Nonreactive)
[2025-01-08 13:54] LABS: Anti Glomerular Basement Memb <1.0 AI; Myeloperoxidase Antibody <1.0 AI
[2025-01-08 15:08] LABS: Atypical P-ANCA Titer 1:20 titer (<1:20); Neutrophil Cyto Ab Screen ATYP P-ANCA POS (NEGATIVE)
[2025-01-10 15:18] LABS: Testosterone, Total 377 ng/dL (250-1100)
== END 2025-01-06 10:07 | disposition home or self-care (01) ==
LOC: HO.HHCL 10:06
PROVIDERS: Internal Medicine; Nurse Practitioner Family; Registered Nurse; Urology; Visit Provider Internal Medicine Hypertension Specialist
DX: R80.9 Proteinuria, unspecified (principal); E29.1 Testicular hypofunction; R60.0 Localized edema; G62.9 Polyneuropathy, unspecified
CPT/HCPCS: 36415; 80053; 83036; 83520; 84153; 84403; 84443; 85025; 85027; 86021; 86036; 86037; 86803

== ENCOUNTER 2025-01-25 10:13 | Emergency (ER) | payer MEDICAID, SELFPAY ==
--- NOTE | ~2025-01-25 | XR_ITS ---
CLINICAL HISTORY: wt loss, TSpot Pos Chest Radiographs, 2 views Comparison: 12/01/24 Findings: No cardiomegaly. Normal mediastinal contours. No pneumothorax. No opacity. No pleural effusion. Normal upper abdomen. No acute fracture. Impression: No acute findings. This document has been electronically signed by: Sehree Flynn MD on 01/25/2025 13:33:26
[2025-01-25 10:47] VITALS: BP 109/64; PULSE 70; RESP 18; TEMP 36.6; O2SAT 98; BMI 21.1
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
[2025-01-25] MEDS: Acetaminophen 325 MG TABLET 975 MG PO (11:39)
[2025-01-25 13:12] LABS: Basophils Absolute Auto 0.1 X10*3/uL (0.0-0.2); Basophils Percent Auto 0.8 % (0-2); Eosinophils Absolute Auto 0.2 X10*3/uL (0.0-0.4); Eosinophils Percent Auto 2.3 % (0-4); Hematocrit 42.7 % (42.0-52.0); Hemoglobin 14.8 g/dl (14.0-18.0); Imm Gran Abs Auto 0.02 X10*3/uL (0.00-0.03); Imm Gran Pct Auto 0.3 % (0.0-0.4); Lymphocytes Absolute Auto 1.5 X10*3/uL (1.2-4.9); Lymphocytes Percent Auto 18.5 % (20-40); MANUAL DIFF FLAG SCAN; Mean Corpuscular HGB Conc 34.7 g/dl (31.0-36.0); Mean Corpuscular Hemoglobin 32.2 pg (27.0-33.0); Monocytes Absolute Auto 0.4 X10*3/uL (0.1-1.2); Monocytes Percent Auto 5.2 % (2-11); Neutrophils Absolute Auto 5.8 x10*3/uL (2.0-8.3); Neutrophils Percent Auto 72.9 % (45-73); PLT CLUMP 1; Red Blood Count 4.59 X10*6/uL (4.60-5.80); Red Cell Distribution Width 13.5 % (11.0-16.0); SCAN SMEAR FLAG 1
[2025-01-25 13:20] LABS: Alanine Aminotransferase 27 U/L (0-40); Albumin Level 4.8 g/dL (3.5-5.0); Alkaline Phosphatase 49 U/L (39-117); Anion Gap 14 (12-20); Aspartate Amino Transferase 29 U/L (5-37); Bilirubin Total 1.8 mg/dL (0.0-1.0); Blood Urea Nitrogen 16 mg/dL (9-16); Calcium 9.2 mg/dL (8.4-10.2); Carbon Dioxide 30 mmol/L (22-29); Chloride 101 mmol/L (96-108); Estimated Glomerular Filt Rate > 60; Glucose Random 104 mg/dL (60-115); Potassium 4.2 mmol/L (3.3-5.1); Sodium 141 mmol/L (135-145); Total Protein 7.8 g/dL (6.5-8.0)
[2025-01-25 13:21] LABS: White Blood Count 7.9 X10*3/uL (4.8-10.8)
[2025-01-25 13:32] LABS: SLIDE REVIEW VERIFIED
[2025-01-25 13:51] VITALS: BP 109/86; PULSE 88; RESP 16; TEMP 36.3; O2SAT 97
[2025-01-25 13:51] LABS: Influenza A PCR NEGATIVE (Negative); Influenza B PCR NEGATIVE (Negative); Resp Syncy Virus RNA Qual PCR NEGATIVE (Negative); SARS COV2 PCR INHOUSE NEGATIVE (Negative)
== END 2025-01-25 13:51 | disposition home or self-care (01) ==
PROVIDERS: Emergency Provider Emergency Medicine
DX: M79.10 Myalgia, unspecified site (principal); R53.1 Weakness; Z03.818 Encounter for observation for suspected exposure to other biological agents ruled out; Z79.899 Other long term (current) drug therapy
CPT/HCPCS: 0241U; 36415; 71046; 80053; 82550; 85025; 86480; 99283; 99284

== ENCOUNTER → 2025-01-25 11:48 | Outpatient (BNV) | payer MEDICAID, SELFPAY | PROVIDERS: Emergency Provider Emergency Medicine; Visit Provider Radiology Diagnostic Radiology | DX: R76.11 Nonspecific reaction to tuberculin skin test without active tuberculosis (principal) | CPT/HCPCS: 71046 ==

== ENCOUNTER 2025-01-29 09:47 | Outpatient (REF) | payer MEDICAID, SELFPAY ==
--- NOTE | ~2025-01-29 | XR_ITS ---
EXAMINATION: XR SHOULDER, RIGHT CLINICAL INFORMATION: diffuse joint pain COMPARISON: None available. TECHNIQUE: Three views of the right shoulder. FINDINGS: Normal bone mineralization. No fracture, dislocation, or suspicious bone lesion. Normal alignment. The glenohumeral joint is normal. The AC joint is normal. There is a type II acromion. No undersurface spurring. The subacromial space is preserved. Remainder of the soft tissue and bony structures appear normal. XR/XR shoulder RT min 2V IMPRESSION: Normal right shoulder. Electronically signed by: Kavin Duncan MD 01/29/2025 10:22 AM EDT
--- NOTE | ~2025-01-29 | XR_ITS ---
EXAMINATION: XR ANKLE 3 OR MORE VIEWS LEFT HISTORY: diffuse joint pain COMPARISON: There are no prior studies available for comparison. FINDINGS: Three views of the left ankle are submitted. Osseous mineralization is normal. There is no fracture or dislocation. The joint spaces are preserved. The soft tissues are unremarkable. XR/XR ankle LT min 3V IMPRESSION: Unremarkable examination of the left ankle. Electronically signed by: Jean Pierre Adamson MD 01/29/2025 10:17 AM EDT
--- NOTE | ~2025-01-29 | XR_ITS ---
EXAMINATION: XR SHOULDER, LEFT CLINICAL INFORMATION: diffuse joint pain COMPARISON: None available. TECHNIQUE: AP external rotation, Grashey, scapular Y, and axillary views of the left shoulder. FINDINGS: Normal bone mineralization. No fracture, dislocation, or suspicious bone lesion. Normal alignment. The glenohumeral joint is normal. The AC joint is normal. There is a type II acromion. No undersurface spurring. The subacromial space is preserved. Remainder of the soft tissue and bony structures appear normal. XR/XR shoulder LT min 2V IMPRESSION: Normal left shoulder. Electronically signed by: Kavin Duncan MD 01/29/2025 10:22 AM EDT
--- NOTE | ~2025-01-29 | XR_ITS ---
EXAMINATION: XR ANKLE 3 OR MORE VIEWS RIGHT HISTORY: diffuse joint pain COMPARISON: There are no prior studies available for comparison. FINDINGS: Three views of the right ankle are submitted. Osseous mineralization is normal. There is no fracture or dislocation. The joint spaces are preserved. The soft tissues are unremarkable. XR/XR ankle RT min 3V IMPRESSION: Unremarkable examination of the right ankle. Electronically signed by: Jean Pierre Adamson MD 01/29/2025 10:17 AM EDT
--- NOTE | ~2025-01-29 | XR_ITS ---
EXAMINATION: XR CERVICAL SPINE CLINICAL INFORMATION: Diffuse joint pain COMPARISON: None available. TECHNIQUE: 3 views of the cervical spine were obtained. FINDINGS: No scoliosis. Normal lordosis. No fracture, compression deformities, or subluxations are identified. No suspicious bone lesion. Craniocervical junction and atlantoaxial articulation are aligned normally. The disc spaces are preserved. The facets are normally aligned. The prevertebral soft tissues are normal. XR/XR cervical spine 3V IMPRESSION: Normal cervical spine x-rays. Electronically signed by: Kavin Duncan MD 01/29/2025 10:25 AM EDT
--- OUTSIDE RECORDS SUMMARY | 2025-01-29 10:10 | XMS_ITS | Encounter Summary ---
Author Organization [employer] Address [address] [place] [address] Care Team Providers Care Surveillance Manager Name Role Phone [facility] Primary Care Provider [phone] Reason for Visit * Reason Comments Med Refill Encounter Details Date Type Department Care Team (Late st Contact Info) Description 07/08/2024 Refill [facility] [address], [place] [phone] [facility] [address] [place] [address] Mixed anxiety and depressive disorder Social History [...] Description 04/24/2025 1:00 PM EDT Office Visit [facility] [address] [place] [address] Zachariah, Claudette [address] [place] [address] documented as of this encounter Goals Goal [...] documented as of this encounter Care Teams Surveillance Manager Relationship Specialty Start Date End Date Haily Robb FNP [address] [place] [address] PCP - General Family Medicine 05/01/22 documented as of this encounter
[2025-01-29 11:51] LABS: MANUAL DIFF FLAG NO
[2025-01-29 11:53] LABS: Basophils Percent Auto 0.8 % (0-2); Eosinophils Absolute Auto 0.1 X10*3/uL (0.0-0.4); Eosinophils Percent Auto 2.1 % (0-4); Hematocrit 43.2 % (42.0-52.0); Hemoglobin 14.5 g/dl (14.0-18.0); Imm Gran Abs Auto 0.01 X10*3/uL (0.00-0.03); Imm Gran Pct Auto 0.2 % (0.0-0.4); Lymphocytes Absolute Auto 1.2 X10*3/uL (1.2-4.9); Lymphocytes Percent Auto 24.8 % (20-40); Mean Corpuscular HGB Conc 33.6 g/dl (31.0-36.0); Mean Corpuscular Hemoglobin 32.1 pg (27.0-33.0); Mean Corpuscular Volume 95.6 fL (80.0-98.0); Mean Platelet Volume 11.4 fL (9.4-12.4); Monocytes Absolute Auto 0.4 X10*3/uL (0.1-1.2); Monocytes Percent Auto 7.2 % (2-11); Neutrophils Absolute Auto 3.2 x10*3/uL (2.0-8.3); Neutrophils Percent Auto 64.9 % (45-73); Platelet Count 181 X10*3/uL (160-400); Red Blood Count 4.52 X10*6/uL (4.60-5.80); Red Cell Distribution Width 13.5 % (11.0-16.0); White Blood Count 4.9 X10*3/uL (4.8-10.8)
[2025-01-29 12:06] LABS: Anion Gap 10 (12-20); Blood Urea Nitrogen 17 mg/dL (9-16); C Reactive Protein < 0.10 mg/dL (< or = 0.50); Calcium 9.3 mg/dL (8.4-10.2); Carbon Dioxide 33 mmol/L (22-29); Chloride 101 mmol/L (96-108); Estimated Glomerular Filt Rate > 60; Glucose Random 80 mg/dL (60-115); Potassium 4.4 mmol/L (3.3-5.1); Rheumatoid Factor < 13.0 IU/mL (<15.0); Sodium 140 mmol/L (135-145)
[2025-01-29 12:28] LABS: TSH reflex Free T4 2.58 uIU/mL (0.32-4.0)
[2025-01-29 12:31] LABS: Erythrocyte Sedimentation Rate 9 MM/HR (0-15)
[2025-01-30 09:02] LABS: Lyme Abs Screen <0.90 index
== END 2025-01-29 09:48 | disposition home or self-care (01) ==
LOC: HO.HHCX 09:47
PROVIDERS: PCP Registered Nurse; Visit Provider Family Medicine
DX: G62.9 Polyneuropathy, unspecified (principal); M25.572 Pain in left ankle and joints of left foot; M25.571 Pain in right ankle and joints of right foot; M25.511 Pain in right shoulder; M25.512 Pain in left shoulder; M54.2 Cervicalgia
CPT/HCPCS: 36415; 72040; 73030; 73610; 80048; 84443; 85025; 85652; 86038; 86140; 86431; 86617; 86618

== ENCOUNTER → 2025-01-29 09:49 | Outpatient (BNV) | payer MEDICAID, SELFPAY | PROVIDERS: PCP Registered Nurse; Visit Provider Radiology Diagnostic Radiology | DX: M54.2 Cervicalgia (principal); M25.511 Pain in right shoulder; M25.512 Pain in left shoulder; M25.572 Pain in left ankle and joints of left foot; M25.571 Pain in right ankle and joints of right foot | CPT/HCPCS: 72040; 73030; 73610 ==

== ENCOUNTER 2025-01-29 10:15 | Outpatient (REF) | payer MEDICAID, SELFPAY | END 2025-01-29 10:16 | disposition home or self-care (01) | LOC: HO.HHCL 10:15 | PROVIDERS: Visit Provider Family Medicine | DX: Z13.89 Encounter for screening for other disorder (principal) ==

== ENCOUNTER 2025-02-15 08:28 | Emergency (ER) | payer MEDICAID, SELFPAY ==
--- NOTE | ~2025-02-15 | CT_ITS ---
CLINICAL HISTORY: dizziness CT head without contrast Comparison: None Findings: No acute intracranial hemorrhage or midline shift. The ocampo-white matter differentiation is maintained. No significant atrophy-like change or white matter disease. The paranasal sinuses and mastoid air cells are clear. The calvarium is intact. IMPRESSION: No acute intracranial findings. This document has been electronically signed by: Raghavendra Perez DO on 02/15/2025 11:21:58
--- NOTE | ~2025-02-15 | XR_ITS ---
CLINICAL HISTORY: generalized weakness 1 view chest x-ray Comparison: CR - XR CHEST 2V - 01/25/25 12:22 EDT Findings: Lungs are well inflated. Cardiac silhouette is within normal limits. Minor interstitial prominence within the right perihilar and infrahilar region. No dense area of consolidation. No pleural effusion. IMPRESSION: Likely mild right perihilar bronchitis. This document has been electronically signed by: Babatunde Peoples MD on 02/15/2025 09:29:34
[2025-02-15 08:40] VITALS: BP 123/62; PULSE 78; RESP 18; TEMP 37; O2SAT 99; BMI 20.9
[2025-02-15 08:53] VITALS: BP 123/62; PULSE 78; RESP 18; TEMP 37; O2SAT 99
--- NOTE | 2025-02-15 09:03 | ECG_ITS ---
Test Reason : GENERALIZE WEAKNESS Blood Pressure : */* mmHG Vent. Rate : 55 BPM Atrial Rate : 55 BPM P-R Int : 140 ms QRS Dur : 116 ms QT Int : 390 ms P-R-T Axes : 36 39 33 degrees QTcB Int : 373 ms Sinus bradycardia Nonspecific T wave abnormality Abnormal ECG When compared with ECG of 04-Nov-2024 10:36, ST elevation now present in Anterior leads T wave amplitude has decreased in Anterior leads Referred By: Eliazar Ashby Electronically Signed By: Francis Penny
--- NOTE | 2025-02-15 09:09 | ED_ITS ---
HPI - General Adult General Chief complaint: Weakness Stated complaint: dizzy, weakness Time Seen by Provider: 02/15/25 08:54 Source: patient and mold maker plastic molds Mode of arrival: ambulatory Limitations: no limitations History of Present Illness ED Provider: DR. Ashby HPI narrative: 54-year-old male came in for evaluation of multiple symptoms started for the last 2 weeks, symptoms including blurry vision, generalized weakness, bilateral lower extremity weakness, feeling dizzy and lightheadedness, bilateral flank pain x2 weeks,no CP, no SOB, no dysuria, no frequency urination, no abnormal speech. Related Data Home Medications ?Medication ?Instructions ?Recorded ?Confirmed cholecalciferol (vitamin D3) 50 50 mcg PO DAILY 06/30/20 12/30/24 mcg (2,000 unit) capsule (Vitamin D3) clonazepam 1 mg tablet 1 mg PO DAILY 06/30/20 12/30/24 fluticasone propionate 50 1 spray intranasal DAILY 06/30/20 12/30/24 mcg/actuation nasal spray,suspension (Flonase Allergy Relief) hydroxyzine HCl 25 mg tablet 25 mg PO TID PRN Itching 06/30/20 12/30/24 methadone 40 mg soluble tablet 36 mg PO DAILY 06/30/20 12/30/24 fluoxetine 10 mg capsule 20 mg PO QAM 10/20/21 12/30/24 mirtazapine 15 mg tablet 15 mg PO BEDTIME 10/20/21 12/30/24 trazodone 50 mg tablet 25 mg PO BEDTIME 10/20/21 12/30/24 ascorbic acid (vitamin C) 500 mg 500 mg PO DAILY 12/16/21 12/30/24 tablet (Vitamin C) ferrous sulfate 325 mg (65 mg 325 mg PO DAILY 12/16/21 12/30/24 iron) tablet (FeroSul) lidocaine 5 % topical patch 0 patch topical 12/16/21 12/30/24 (Lidoderm) sennosides 8.6 mg tablet (senna) 17.2 mg PO DAILY 12/16/21 12/30/24 cetirizine 10 mg tablet 10 mg PO DAILY PRN congestion 05/18/22 12/30/24 nicotine 14 mg/24 hr daily 0 patch topical 06/22/22 12/30/24 transdermal patch albuterol sulfate 90 mcg/actuation 2 puff inhalation Q4H PRN wheezing 01/12/23 12/30/24 aerosol inhaler (Ventolin HFA) clonazepam 0.5 mg tablet 1 mg PO BID PRN 01/12/23 12/30/24 ibuprofen 600 mg tablet 600 mg PO Q8H PRN headache 01/12/23 12/30/24 melatonin 5 mg tablet 5 - 10 mg PO BEDTIME PRN 01/12/23 12/30/24 multivitamin 1 tab PO QAM 01/12/23 12/30/24 nicotine (polacrilex) 2 mg buccal 2 mg PO 01/12/23 12/30/24 lozenge rosuvastatin 10 mg tablet 10 mg PO QAM 01/12/23 12/30/24 simethicone 125 mg capsule (Gas 125 mg PO BEDTIME 01/12/23 12/30/24 Relief Extra Strength) omeprazole 40 mg capsule,delayed 40 mg PO QAM 09/19/24 12/30/24 release Previous Rx's ?Medication ?Instructions ?Recorded docusate sodium 100 mg capsule 200 mg (2 x 100 mg) PO BEDTIME 30 06/03/20 (Colace) days #60 caps bisacodyl 5 mg tablet,delayed 10 mg (2 x 5 mg) PO ONCE 05/18/22 release (Dulcolax (bisacodyl)) colonoscopy prep 1 day #2 tabs polyethylene glycol 3350 17 238 g PO ONCE 1 day #238 grams 05/18/22 gram/dose oral powder (Miralax) phenylephrine HCl 10 mg tablet 10 mg PO Q6H PRN nasal congestion 12/17/23 (Sudafed PE) #10 tabs diazepam 5 mg tablet (Valium) 5 mg PO BID PRN muscle spasm #10 07/24/24 tabs furosemide 20 mg tablet (Lasix) 20 mg PO DAILY #90 tabs 08/29/24 needle (disp) 18 G 18 gauge x 1 #30 ea 09/29/24 (BD Regular Bevel Pawling) needle (disp) 22 G 22 gauge x 1 #30 ea 10/24/24 sucralfate 100 mg/mL oral 10 ml PO BID 14 days #280 mL 11/04/24 suspension (Carafate) syringe (disposable) 3 mL (BD #25 ea 11/27/24 Luer-Vira Syringe) tamsulosin 0.4 mg capsule 0.8 mg (2 x 0.4 mg) PO BEDTIME 90 11/28/24 days #180 caps testosterone cypionate 200 mg/mL 200 mg IM Q2W 28 days #2 mL 11/28/24 intramuscular oil ibuprofen 400 mg tablet 400 mg PO Q6H PRN pain #14 tabs 12/12/24 Allergies Allergy/AdvReac Type Severity Reaction Status Date / Time SEAFOOD Allergy Severe ANAPHYLAXIS Uncoded 02/15/25 08:45 shellfish Allergy Severe Anaphylaxis Uncoded 02/15/25 08:45 Review of Systems 2 Review of Systems: All other systems are reviewed and are negative Constitutional: Reports as per HPI and Reports no additional constitutional complaints Eyes: Reports as per HPI and Reports no additional eye complaints Reports system reviewed and no additional complaints, except as documented Cardiovascular: Reports as per HPI and Reports no additional cardiovascular complaints Respiratory: Reports as per HPI and Reports no additional respiratory complaints Gastrointestinal: Reports as per HPI and Reports no additional gastrointestinal complaints Genitourinary: Reports no additional female genitourinary complaints Musculoskeletal: Reports no additional musculoskeletal complaints Skin/Breast: Reports system reviewed and no additional complaints, except as docu Psychiatric: Reports no additional psychiatric complaints Endocrine: Reports no additional endocrine complaints Hematologic/Lymphatic: Reports no additional hematologic/lymphatic complaints Allergic/Immunologic: Reports no additional allergic/immunologic complaints Reports system reviewed and no additional complaints, except as documented and Reports Abnormal speech present [facility] Past Medical History Medical History Anemia Hx of substance abuse Smoker History of Helicobacter pylori infection Spinal pain Hypogonadism Erectile dysfunction Hx: UTI (urinary tract infection) BPH (benign prostatic hyperplasia) Hx of hepatitis C GERD (gastroesophageal reflux disease) Anxiety and depression HTN (hypertension) Murmur Surgical History Hx of cystoscopy Family History Family History Mother Diabetes Social History Social History Unable to assess alcohol history related to: Unknown Alcohol intake: former Patient Tobacco Use Status: Current everyday Tobacco user Smoked in Last 30 Days: No Use of substances other than those prescribed or required for medical reasons: Yes Substance Use Type: Crack/Cocaine and Heroin Substance Use Type Other:: methadone, clinic is [facility] Advance Directives: No Advance Directives Information Provided: Yes Do you have a plan to hurt others: No Plan Current occupational status: unemployed Physical Exam ED Vital Signs: Vital Signs - 24 hr 02/15/25 08:40 02/15/25 08:53 02/15/25 09:25 Temperature 98.6 F 98.6 F Pulse Rate 78 78 53 Respiratory Rate 18 18 Blood Pressure 123/62 123/62 119/67 Pulse Oximetry 99 99 Oxygen Delivery Method Room Air Room Air 02/15/25 09:25 02/15/25 09:27 02/15/25 09:27 Temperature Pulse Rate 60 59 65 Respiratory Rate Blood Pressure 119/67 121/60 123/67 Pulse Oximetry Oxygen Delivery Method BMI result Body Mass Index 20.9 Vital signs have been reviewed and appear to be correct. Blood pressure elevated. Heart rate normal. Respiratory rate normal. Temperature normal. Oxygen saturation normal. Appearance: Alert. Oriented X3. No acute distress. Head: Normal external exam. Normocephalic. Atraumatic. No Marrufo signs noted. No raccoon eyes noted Eyes: VA right 20/20 VA left 20/30. General: appearance normal, both eyes and all related structures Visual Mullen: normal visual mullen by confrontation Alignment and Position: alignment normal and position normal Periorbital: periorbital findings normal Eyelids: Yes eyelids normal Conjunctivae: conjunctivae normal Sclerae: sclerae normal Corneas: corneas normal Pupils: Equal, round and reactive pupils present and Pupil accommodation reflex normal EOM: EOM normal No Nystagmus present Direct Ophthalmoscopy: normal light reflex, no photophobia, no papilledema and fundi normal bilaterally ENT: TM's Normal. Pharynx normal. Uvula midline. Moist mucous membranes. No trismus noted. No drooling noted. No muffled voice noted. Neck: Normal inspection. Neck supple. FROM. No adenopathy. Thyroid Normal. No meningeal signs. No neck mass noted. CVS: Normal heart rate and rhythm. Heart sound normal. No murmurs noted. Pulses normal throughout. Respiratory: No respiratory distress. Painless inspiration. Breath sounds normal. No wheezes/rales/rhonchi noted. Chest nontender. No accessory muscle usage noted or decreased air movement noted. Abdomen: Soft and nontender. Bowel sounds normal in all 4 quadrants. No distention noted. No organomegaly noted. No visible injury noted. Back: No CVA tenderness. Full range of motion noted. Skin: Skin warm and dry. Normal skin color. Normal skin turgor. No rashes/lesions/lacerations noted. Extremities: No lower extremity edema. Extremities exhibit normal range of motion. Extremities nontender. Neuro: Mental status: Normal attention, orientation, memory, and affect. Cranial nerves: Pupils are equal, round and reactive to light, EOMI, visual mullen are fall, face is symmetric, facial sensations are normal. Motor examination normal muscle tone, strength to 4 extremities. DTR are +2, planter's are flexor. Sensory exam; normal coordination, no ataxia, gait stable. Cerebellar exam: [id number] and [id number] is normal. Extrapyramidal system: No tremors, no rigidity with normal facial expressions. Pronator drift not present Course Reevaluation(s) Reevaluation #1: Generalized weakness, unremarkable findings on the labs, UA, head CT, chest x-ray ( perihilar bronchitis ), patient has no coughing, no fever. Time: 11:30 Medications Administered Discontinued Medications Generic Name Dose Route Start Last Admin Trade Name Freq PRN Reason Stop Dose Admin Sodium Chloride 1,000 mls @ 999 mls/hr 02/15/25 09:01 02/15/25 09:31 Ns IV 02/15/25 10:01 999 mls/hr .Q1H1M ONE Administration Medical Decision Making Differential Diagnosis Differential Diagnoses: The differential diagnosis associated with the presentation includes ( Pneumonia, pneumothorax, pleural effusion, intracranial bleed, electrolyte derangement, severe anemia, dehydration, UTI.) Admission/Observation Consideration of admission/observation: Escalation of care including admission/observation considered Lab Data MDM Lab Attestation statement: I reviewed the patient's lab results. 02/15/25 09:24 02/15/25 09:24 Labs: Lab Results 02/15/25 02/15/25 Range/Units 09:24 11:05 WBC 4.8 (4.8-10.8) X10*3/uL RBC 4.70 (4.60-5.80) X10*6/uL Hgb 15.2 (14.0-18.0) g/dl Hct 43.8 (42.0-52.0) % MCV 93.2 (80.0-98.0) fL MCH 32.3 (27.0-33.0) pg MCHC 34.7 (31.0-36.0) g/dl RDW 12.8 (11.0-16.0) % Plt Count 198 (160-400) X10*3/uL MPV 10.7 (9.4-12.4) fL Immature Gran % (Auto) 0.2 (0.0-0.4) % Neut % (Auto) 63.3 (45-73) % Lymph % (Auto) 25.2 (20-40) % Brooke % (Auto) 6.9 (2-11) % Eos % (Auto) 3.6 (0-4) % Baso % (Auto) 0.8 (0-2) % Lymph # (Auto) 1.2 (1.2-4.9) X10*3/uL [place]oke # (Auto) 0.3 (0.1-1.2) X10*3/uL Eos # (Auto) 0.2 (0.0-0.4) X10*3/uL Baso # (Auto) 0.0 (0.0-0.2) X10*3/uL Abs Immat Gran (auto) 0.01 (0.00-0.03) X10*3/uL Absolute Neuts (auto) 3.0 (2.0-8.3) x10*3/uL Absolute Nucleated RBC 0.000 (0.0-0.012) X10*3/uL Nucleated RBC % (auto) 0.0 (0.0-0.2) /100WBC Sodium 141 (135-145) mmol/L Potassium 4.3 (3.3-5.1) mmol/L Chloride 102 (96-108) mmol/L Carbon Dioxide 29 (22-29) mmol/L Anion Gap 14 (12-20) BUN 17 H (9-16) mg/dL Creatinine 1.03 (0.5-1.4) mg/dL Estim Creat Clear Calc 70.6 Estimated GFR > 60 Random Glucose 95 (60-115) mg/dL Calcium 9.8 (8.4-10.2) mg/dL Total Bilirubin 2.2 H (0.0-1.0) mg/dL Direct Bilirubin 0.5 (0.0-0.5) mg/dL AST 39 H (5-37) U/L ALT 28 (0-40) U/L Alkaline Phosphatase 57 (39-117) U/L Troponin I High Sens < 2.7 (<3.5-35.0) ng/L B-Natriuretic Peptide < 10 (<100) pg/mL Total Protein 8.1 H (6.5-8.0) g/dL Albumin 4.9 (3.5-5.0) g/dL Lipase 28 (8-78) U/L Urine Color Yellow Urine Appearance Cloudy Urine pH >= 9.0 (5.0-9.0) Ur Specific [place] 1.020 (1.005-1.025) Urine Protein Trace (Neg-Trace) mg/dL Urine Glucose (UA) Negative (Negative) mg/dL Urine Ketones Negative (Negative) mg/dL Urine Blood Negative (Negative) Urine Nitrite Negative (Negative) Ur Leukocyte Esterase Negative (Negative) Influenza Type A (PCR) NEGATIVE (Negative) Influenza Type B (PCR) NEGATIVE (Negative) RSV RNA Qual (PCR) NEGATIVE (Negative) SARS-CoV-2 RNA (RT-PCR) NEGATIVE (Negative) Independent Interpretation I performed an independent interpretation of an: Plain X-Ray ( Chest:Likely mild right perihilar bronchitis.) and CT Scan ( Head: No acute intracranial pathology.) Radiology Impression Discussion of test interpretation with radiology: I have reviewed the radiologist's reading. Discharge Plan Discharge Clinical Impression: Episode of generalized weakness Patient Disposition: Home, Self-Care Instructions: Weakness (ED) Prescriptions: No Action docusate sodium [Colace] 100 mg capsule 200 mg PO BEDTIME 30 Days Qty: 60 3RF (DME) needle (disp) 18 G [BD Regular Bevel Pawling] 18 gauge x 1 needle See Rx Instructions .Route Qty: 30 0RF Rx Instructions: As directed to draw testosterone (DME) needle (disp) 22 G 22 gauge x 1 needle See Rx Instructions .Route Qty: 30 0RF Rx Instructions: As directed to inject testosterone (DME) syringe (disposable) [BD Luer-Vira Syringe] 3 mL syringe See Rx Instructions .Route Qty: 25 0RF Rx Instructions: As directed 1 syringe [id number] 2 syringes total per month for T injection clonazepam 1 mg Tablet 1 mg PO DAILY methadone 40 mg Tablet,Soluble 36 mg PO DAILY hydroxyzine HCl 25 mg Tablet 25 mg PO TID PRN (Reason: Itching) fluticasone propionate [Flonase Allergy Relief] 50 mcg/actuation [place],Suspension 1 spray INTRANASAL DAILY cholecalciferol (vitamin D3) [Vitamin D3] 50 mcg (2,000 unit) Capsule 50 mcg PO DAILY phenylephrine HCl [Sudafed PE] 10 mg tablet 10 mg PO Q6H PRN (Reason: nasal congestion) Qty: 10 0RF sucralfate [Carafate] 100 mg/mL suspension 10 ml PO BID 14 Days Qty: 280 0RF diazepam [Valium] 5 mg tablet 5 mg PO BID PRN (Reason: muscle spasm) Qty: 10 0RF ibuprofen 400 mg tablet 400 mg PO Q6H PRN (Reason: pain) Qty: 14 0RF trazodone 50 mg tablet 25 mg PO BEDTIME mirtazapine 15 mg tablet 15 mg PO BEDTIME fluoxetine 10 mg capsule 20 mg PO QAM nicotine 14 mg/24 hr patch 24 hour 0 patch topical bisacodyl [Dulcolax (bisacodyl)] 5 mg tablet,delayed release (DR/EC) 10 mg PO ONCE 1 Days Qty: 2 0RF Rx Instructions: Take 2 tablets by mouth at 12:00pm the day before your procedure. polyethylene glycol 3350 [Miralax] 17 gram/dose powder 238 g PO ONCE 1 Days Qty: 238 0RF Rx Instructions: Take as directed by mouth the day before your procedure. cetirizine 10 mg tablet 10 mg PO DAILY PRN (Reason: congestion) lidocaine [Lidoderm] 5 % adhesive patch,medicated 0 patch topical ferrous sulfate [FeroSul] 325 mg (65 mg iron) tablet 325 mg PO DAILY ascorbic acid (vitamin C) [Vitamin C] 500 mg tablet 500 mg PO DAILY sennosides [senna] 8.6 mg tablet 17.2 mg PO DAILY furosemide [Lasix] 20 mg tablet 20 mg PO DAILY Qty: 90 0RF tamsulosin 0.4 mg capsule 0.8 mg PO BEDTIME 90 Days Qty: 180 1RF testosterone cypionate 200 mg/mL oil 200 mg IM Q2W 28 Days Qty: 2 5RF albuterol sulfate [Ventolin HFA] 90 mcg/actuation HFA aerosol inhaler 2 puff inhalation Q4H PRN (Reason: wheezing) ibuprofen 600 mg tablet 600 mg PO Q8H PRN (Reason: headache) melatonin 5 mg tablet 5 - 10 mg PO BEDTIME PRN rosuvastatin 10 mg tablet 10 mg PO QAM clonazepam 0.5 mg tablet 1 mg PO BID PRN nicotine (polacrilex) 2 mg lozenge 2 mg PO simethicone [Gas Relief Extra Strength] 125 mg capsule 125 mg PO BEDTIME multivitamin Tablet 1 tab PO QAM omeprazole 40 mg capsule,delayed release(DR/EC) 40 mg PO QAM Referrals: [facility] [Primary Care Provider] - Print Language: Irish
[2025-02-15 09:25] VITALS: BP 119/67; PULSE 53; PULSE 60
[2025-02-15 09:27] VITALS: BP 121/60; BP 123/67; PULSE 59; PULSE 65
[2025-02-15 09:28] LABS: MANUAL DIFF FLAG NO
[2025-02-15] MEDS: 0.9 % Sodium Chloride 1,000 ML 999 ML IV (09:31)
[2025-02-15 09:36] LABS: Basophils Percent Auto 0.8 % (0-2); Eosinophils Absolute Auto 0.2 X10*3/uL (0.0-0.4); Eosinophils Percent Auto 3.6 % (0-4); Hematocrit 43.8 % (42.0-52.0); Hemoglobin 15.2 g/dl (14.0-18.0); Imm Gran Abs Auto 0.01 X10*3/uL (0.00-0.03); Imm Gran Pct Auto 0.2 % (0.0-0.4); Lymphocytes Absolute Auto 1.2 X10*3/uL (1.2-4.9); Lymphocytes Percent Auto 25.2 % (20-40); Mean Corpuscular HGB Conc 34.7 g/dl (31.0-36.0); Mean Corpuscular Hemoglobin 32.3 pg (27.0-33.0); Mean Corpuscular Volume 93.2 fL (80.0-98.0); Mean Platelet Volume 10.7 fL (9.4-12.4); Monocytes Absolute Auto 0.3 X10*3/uL (0.1-1.2); Monocytes Percent Auto 6.9 % (2-11); Neutrophils Percent Auto 63.3 % (45-73); Platelet Count 198 X10*3/uL (160-400); Red Cell Distribution Width 12.8 % (11.0-16.0); White Blood Count 4.8 X10*3/uL (4.8-10.8)
[2025-02-15 09:52] LABS: B Type Natriuretic Peptide < 10 pg/mL (<100)
--- NOTE | 2025-02-15 09:53 | PC.NURSE ---
Addendum entered by Hi Whitehead 02/15/25 10:23: Pt had equal strength in bilateral extremities during assessment, able to squeeze hands, hold arms out in front of him with eyes closed, smile, frown, and stick his tongue out. Pt c/o blurred vision new onset 2 weeks ago. Pt seen ambulating independently, and appeared pretty stable. Pt states he does not smoke or drink but is on daily methadone. Original Note: 54 M presents to ED for weakness in lower extremities, dizziness, flank pain, and llq pain x 2 weeks. A+Ox4 and ambulates without devices. Last BM yesterday and urinating with some difficulty from baseline. RR even and unlabored, denies SOB or CP. Orthostatics completed with minimal variation.
[2025-02-15 10:06] LABS: Influenza A PCR NEGATIVE (Negative); Influenza B PCR NEGATIVE (Negative); Resp Syncy Virus RNA Qual PCR NEGATIVE (Negative); SARS COV2 PCR INHOUSE NEGATIVE (Negative)
[2025-02-15 10:14] LABS: Alanine Aminotransferase 28 U/L (0-40); Albumin Level 4.9 g/dL (3.5-5.0); Alkaline Phosphatase 57 U/L (39-117); Anion Gap 14 (12-20); Aspartate Amino Transferase 39 U/L (5-37); Bilirubin Direct 0.5 mg/dL (0.0-0.5); Bilirubin Total 2.2 mg/dL (0.0-1.0); Blood Urea Nitrogen 17 mg/dL (9-16); Calcium 9.8 mg/dL (8.4-10.2); Carbon Dioxide 29 mmol/L (22-29); Chloride 102 mmol/L (96-108); Creatinine Clr Calc Pharmacy 70.6; Estimated Glomerular Filt Rate > 60; Glucose Random 95 mg/dL (60-115); Lipase 28 U/L (8-78); Potassium 4.3 mmol/L (3.3-5.1); Sodium 141 mmol/L (135-145); Total Protein 8.1 g/dL (6.5-8.0); Troponin-I High Sensitivity < 2.7 ng/L (<3.5-35.0)
[2025-02-15 11:16] LABS: Appearance Urine Cloudy; Color Urine Yellow; Glucose Urine UA Negative (Negative); Leukocyte Esterase Urine Negative (Negative); Nitrite Urine Negative (Negative); PH >= 9.0 (5.0-9.0); Urine Blood Negative (Negative); Urine Ketones Negative (Negative); Urine Protein Trace mg/dL (Neg-Trace)
[2025-02-15 12:33] VITALS: BP 108/63; PULSE 60; RESP 14; O2SAT 100
[2025-02-15] MEDS: Ketorolac Tromethamine 15 MG/ML VIAL IM (12:41)
[2025-02-15 12:48] VITALS: BP 108/63; PULSE 60; RESP 14; TEMP 36.7; O2SAT 100
== END 2025-02-15 12:49 | disposition home or self-care (01) ==
PROVIDERS: Emergency Provider Emergency Medicine
DX: R53.1 Weakness (principal); R42 Dizziness and giddiness; R00.1 Bradycardia, unspecified; I10 Essential (primary) hypertension; B19.20 Unspecified viral hepatitis C without hepatic coma; Z03.818 Encounter for observation for suspected exposure to other biological agents ruled out; F11.20 Opioid dependence, uncomplicated; Z79.899 Other long term (current) drug therapy
CPT/HCPCS: 0241U; 36415; 70450; 71045; 80048; 80076; 81003; 83690; 83880; 84484; 85025; 93005; 96361; 96374; 99285; J1885

== ENCOUNTER → 2025-02-15 09:03 | Outpatient (BNV) | payer MEDICAID, SELFPAY | PROVIDERS: Emergency Provider Emergency Medicine; Visit Provider Internal Medicine Cardiovascular Disease | DX: R00.1 Bradycardia, unspecified (principal) | CPT/HCPCS: 93010 ==

== ENCOUNTER → 2025-02-15 09:03 | Outpatient (BNV) | payer MEDICAID, SELFPAY | PROVIDERS: Emergency Provider Emergency Medicine; Visit Provider Radiology Diagnostic Radiology | DX: R42 Dizziness and giddiness (principal); R53.1 Weakness | CPT/HCPCS: 70450; 71045 ==

== ENCOUNTER 2025-02-18 10:09 | Outpatient (AMB) | payer MEDICAID, SELFPAY ==
--- NOTE | 2025-02-18 10:30 | HO.NEPHOV_ITS ---
Vital Signs 02/18/25 10:40 Height 5 ft 8 in Weight 136 lb 4 oz BMI 20.7 BP 110/70 Blood Pressure Location Lt brachial Position Sitting Pulse 89 Pulse Source Pulse Oximeter Pulse Oximetry (%) 96 Oxygen Delivery Method Room Air Intake Visit Reasons: ER Visit 02/15 Robotype Operator Required: Yes Robotype Operator Language: Financial Aid Manager Services: Robotype Operator Present Robotype Operator Name: Whitney [id number] Information Interpreted: clinical only Accompanied by: Significant Other Allergies SEAFOOD Allergy (Severe, Uncoded 02/15/25 08:45) ANAPHYLAXIS shellfish Allergy (Severe, Uncoded 02/15/25 08:45) Anaphylaxis Medication List - Last Reconciled 02/18/25 by Lilliam Carroll, DNP, [employer] amitriptyline 10 mg PO BEDTIME cholecalciferol (vitamin D3) (Vitamin D3) 50 mcg PO DAILY furosemide (Lasix) 20 mg PO DAILY ibuprofen 400 mg PO Q6H PRN melatonin 5 - 10 mg PO BEDTIME PRN methadone 36 mg PO DAILY needle (disp) 18 G (BD Regular Bevel Radisson) As directed to draw testosterone needle (disp) 22 G As directed to inject testosterone omeprazole 40 mg PO QAM rosuvastatin 10 mg PO QAM syringe (disposable) (BD Luer-Vira Syringe) As directed 1 syringe [id number] 2 syringes total per month for T injection tamsulosin 0.8 mg (2 x 0.4 mg) PO BEDTIME 90 days testosterone cypionate 200 mg IM Q2W 28 days HPI Comments Details: 54-year-old male patient of Dr Denise (sees for proteinuria) with medical history significant for BPH, UTI, GERD, substance abuse on methadone, mental health issues. The patient has been hospitalized for urinary retention in the past requiring gregorio placement. He is followed by Urology Dr Lux. He is here today complaining of intermittent bilateral flank pain x1 week, reports gradually worsening. Non-radiating, does not worsen with urination. Does not worsen with certain movements/position changes; reports intermittent pain comes on randomly, feels like an ache. He states he went to the emergency room for this complaint on 02/15 and no imaging was done and he feels it is pain from his kidneys. Also reports intermittent dysuria x10 days. UA was normal without blood, protein, WBCs, leukocyte esterace, and nitrite negative as well. renal function remains at baseline- creatinine 1.03, GFR >60. He states he feels he is not emptying his bladder completely over the last week, reports lots of dribbling worse than normal. Has intermittent burning with urination. He denies hematuria. States he has not contacted his urologist regarding these symptoms. He also complains of a headache and that the bones in his legs hurt. Denies other new symptoms/concerns. [facility] Medical History Anemia Hx of substance abuse Smoker History of Helicobacter pylori infection Spinal pain Hypogonadism Erectile dysfunction Hx: UTI (urinary tract infection) BPH (benign prostatic hyperplasia) Hx of hepatitis C GERD (gastroesophageal reflux disease) Anxiety and depression HTN (hypertension) Murmur Surgical History Hx of cystoscopy Family History Mother Diabetes Social History Unable to assess alcohol history related to: Unknown Alcohol intake: former Patient Tobacco Use Status: Current everyday Tobacco user Substance Use Type: Crack/Cocaine and Heroin Current occupational status: unemployed Review of Systems Const Reports no additional complaints and Denies weakness Card Denies chest pain, Denies leg edema and Denies dyspnea Resp Denies dyspnea GI Denies abdominal pain, Denies constipation, Denies diarrhea, Denies nausea and Denies vomiting Denies hematuria, Reports difficulty urinating (reports new difficulty emptying his bladder completely ), Reports dysuria (intermittent, sometimes no pain per pt ) and Reports flank pain (reports bilateral flank pain) Musc Reports back pain and Reports arthralgias Skin/Breast Denies rash Neuro Denies paresthesias and Denies weakness Physical Exam Vital Signs: Last Vital Signs Pulse 89 02/18/25 10:40 BP 110/70 02/18/25 10:40 Pulse Ox 96 02/18/25 10:40 Oxygen Delivery Method Room Air 02/18/25 10:40 BMI result Body Mass Index 20.7 Const General: no acute distress, alert and awake GI Palpation (GI): Soft to palpation and nontender General: Yes CVA tenderness (no signs of exquisite pain, pt reports CVA tenderness on right side on exam) Back/Spine/Pelvis Back: CVA tenderness (no signs of exquisite pain, pt reports CVA tenderness on right side on exam) Skin Rashes: no rashes Extrem General: No edema Results Reviewed Nephrology Results: Hgb, (14.0-18.0) 15.2 g/dl 02/15/25 WBC, (4.8-10.8) 4.8 X10*3/uL 02/15/25 Plt Count, (160-400) 198 X10*3/uL 02/15/25 Sodium, (135-145) 141 mmol/L 02/15/25 Potassium, (3.3-5.1) 4.3 mmol/L 02/15/25 Chloride, (96-108) 102 mmol/L 02/15/25 Carbon Dioxide, (22-29) 29 mmol/L 02/15/25 BUN, (9-16) 17 mg/dL H 02/15/25 Creatinine, (0.5-1.4) 1.03 mg/dL 02/15/25 Calcium, (8.4-10.2) 9.8 mg/dL 02/15/25 Urine Protein, (Neg-Trace) Trace mg/dL 02/15/25 Assessment & Plan Assessment & Plan (1) Bilateral flank pain: Code(s): R10.9 - Unspecified abdominal pain Category: Medical (2) Flank pain, acute: Code(s): R10.9 - Unspecified abdominal pain Category: Medical (3) Dysuria: Code(s): R30.0 - Dysuria Category: Medical Plan New onset of bilateral flank pain for about 1 week now, worsening per pt he does not have any signs of exquisite CVA tenderness on exam his UA was unremarkable in ED, so infection is unlikely discussed his pain may be muscular, if remaining workup is unremarkable he should contact his PCP. Will get CT scan without contrast to investigate given history of urinary retention, should rule out hydronephrosis, renal stones - less likely with bilateral pain, no hematuria advised he needs to call his urologist to be seen for difficulty emptying his bladder. He agrees to call and make an appt. discussed if he is unable to urinate or if his flank pain becomes severe, he needs to go to the emergency room significant other, Mirta, is to be contacted with CT results at [phone]. Advised to follow up with Dr Denise for his next scheduled appt, earlier with changes, concerns. Orders: Orders CT abdomen pelvis wo IV con Today R10.9 - Unspecified abdominal pain, R30.0 - Dysuria Patient Instructions: Please call Mirta, family member, with results of ultrasound: [phone]. Coding Level of Care Code Est Pt Level 4 (58388) Diagnoses Bilateral flank pain R10.9 Flank pain, acute R10.9 Dysuria R30.0
[2025-02-18 10:40] VITALS: BP 110/70; PULSE 89; O2SAT 96; BMI 20.7
--- OUTSIDE RECORDS SUMMARY | 2025-02-18 11:28 | XMS_ITS | Encounter Summary ---
Author Organization [employer] Address [address] [facility] 7[address] [place] [address] Care Team Providers Care International Affairs Vice President Name Role Phone [facility] Primary Care Provider [phone] Reason for Visit * Reason Comments Med Refill Encounter Details Date Type Department Care Team (Late st Contact Info) Description 07/08/2024 Refill [facility] [address] [place], [place] [phone] [facility] [address] [place] [address] Mixed anxiety and depressive disorder Social History [...] Care Team (Late st Contact Info) Description 03/30/2025 2:45 PM EDT Office Visit [facility] [address] [place] [address] [facility] [address] [place] [address] 04/24/2025 1:00 PM EDT Office Visit [facility] ADULT DENTAL [address] [place] [address] Zachariah, Claudette [address] [place] [address] documented as of this encounter Goals Goal [...] documented as of this encounter Care Teams International Affairs Vice President Relationship Specialty Start Date End Date Clarisse ANETA Johansen [address] [place] [id number] PCP - General Family Medicine 05/01/22 documented as of this encounter
== END 2025-02-18 11:04 | disposition home or self-care (01) ==
LOC: HO.HKA 10:10
PROVIDERS: Visit Provider Nurse Practitioner Family
DX: R10.9 Unspecified abdominal pain (principal); R30.0 Dysuria
CPT/HCPCS: 99214

== ENCOUNTER → 2025-02-18 10:09 | Outpatient (BNVA) | payer MEDICAID, SELFPAY | PROVIDERS: Visit Provider Nurse Practitioner Family | DX: R10.9 Unspecified abdominal pain (principal); R30.0 Dysuria | CPT/HCPCS: 99212 ==

== ENCOUNTER 2025-02-25 11:24 | Outpatient (REF) | payer MEDICAID, SELFPAY ==
[2025-02-25 13:21] LABS: MANUAL DIFF FLAG NO
[2025-02-25 13:27] LABS: Basophils Percent Auto 0.3 % (0-2); Eosinophils Percent Auto 0.3 % (0-4); Hematocrit 45.2 % (42.0-52.0); Hemoglobin 15.1 g/dl (14.0-18.0); Imm Gran Abs Auto 0.01 X10*3/uL (0.00-0.03); Imm Gran Pct Auto 0.2 % (0.0-0.4); Lymphocytes Absolute Auto 1.2 X10*3/uL (1.2-4.9); Lymphocytes Percent Auto 18.3 % (20-40); Mean Corpuscular HGB Conc 33.4 g/dl (31.0-36.0); Mean Corpuscular Hemoglobin 31.5 pg (27.0-33.0); Mean Corpuscular Volume 94.4 fL (80.0-98.0); Mean Platelet Volume 11.6 fL (9.4-12.4); Monocytes Absolute Auto 0.3 X10*3/uL (0.1-1.2); Monocytes Percent Auto 4.4 % (2-11); Neutrophils Absolute Auto 4.9 x10*3/uL (2.0-8.3); Neutrophils Percent Auto 76.5 % (45-73); Platelet Count 199 X10*3/uL (160-400); Red Blood Count 4.79 X10*6/uL (4.60-5.80); Red Cell Distribution Width 12.2 % (11.0-16.0); White Blood Count 6.3 X10*3/uL (4.8-10.8)
[2025-02-25 13:52] LABS: Alanine Aminotransferase 34 U/L (0-40); Albumin Level 5.1 g/dL (3.5-5.0); Alkaline Phosphatase 57 U/L (39-117); Anion Gap 14 (12-20); Aspartate Amino Transferase 31 U/L (5-37); Bilirubin Direct 0.5 mg/dL (0.0-0.5); Bilirubin Total 1.5 mg/dL (0.0-1.0); Blood Urea Nitrogen 16 mg/dL (9-16); Calcium 9.9 mg/dL (8.4-10.2); Carbon Dioxide 31 mmol/L (22-29); Chloride 99 mmol/L (96-108); Estimated Glomerular Filt Rate > 60; Glucose Random 105 mg/dL (60-115); Lipase 22 U/L (8-78); Potassium 3.7 mmol/L (3.3-5.1); Sodium 140 mmol/L (135-145); Total Protein 8.1 g/dL (6.5-8.0)
[2025-02-25 13:59] LABS: Amylase 84 U/L (28-100)
[2025-02-25 14:06] LABS: TSH reflex Free T4 2.73 uIU/mL (0.32-4.0)
== END 2025-02-25 11:25 | disposition home or self-care (01) ==
LOC: HO.HHCL 11:24
PROVIDERS: Internal Medicine; PCP Registered Nurse; Visit Provider Family Medicine
DX: R42 Dizziness and giddiness (principal); R10.13 Epigastric pain; G62.9 Polyneuropathy, unspecified
CPT/HCPCS: 36415; 80048; 80076; 82150; 83690; 84443; 85025

== ENCOUNTER 2025-02-27 14:32 | Outpatient (AMB) | payer MEDICAID, SELFPAY ==
--- NOTE | 2025-02-27 14:35 | A.OFFVIS_ITS ---
Vital Signs 02/27/25 14:39 Height 5 ft 8 in Weight 130 lb BMI 19.8 BP 120/65 Blood Pressure Location Lt brachial Position Sitting Pulse 59 Pulse Oximetry (%) 97 Oxygen Delivery Method Room Air Intake Visit Reasons: epigastric pain/JM valentina 2021 Intake Note: Patient complex follow up for epigastric pain/Ruth cervantes valentina was 05/18/2022. Patient cc: epigastric pain on his left side with bloating and burping, acid reflux with burning sensation, constipation with any BM x 5 days, swallowing difficulty, and poor appetite with weight lost. Tow Mate Required: Yes Tow Mate Name: Doug [id number] Information Interpreted: non-clinical & clinical Accompanied by: Self / Same As Patient Allergies SEAFOOD Allergy (Severe, Uncoded 02/15/25 08:45) ANAPHYLAXIS shellfish Allergy (Severe, Uncoded 02/15/25 08:45) Anaphylaxis Medication List - Last Reconciled 02/28/25 by Erica De La Cruz CNP amitriptyline 10 mg PO BEDTIME cholecalciferol (vitamin D3) (Vitamin D3) 50 mcg PO DAILY docusate sodium 100 mg PO BEDTIME PRN famotidine 20 mg PO DAILY PRN furosemide (Lasix) 20 mg PO DAILY ibuprofen 400 mg PO Q6H PRN melatonin 5 - 10 mg PO BEDTIME PRN methadone 29 mg PO DAILY needle (disp) 18 G (BD Regular Bevel [place]) As directed to draw testosterone needle (disp) 22 G As directed to inject testosterone pantoprazole 40 mg PO DAILY polyethylene glycol 3350 (Miralax) 17 grams PO DAILY 30 days rosuvastatin 10 mg PO QAM syringe (disposable) (BD Luer-Vira Syringe) As directed 1 syringe [id number] 2 syringes total per month for T injection tamsulosin 0.8 mg (2 x 0.4 mg) PO BEDTIME 90 days testosterone cypionate 200 mg IM Q2W 28 days HPI HPI epigastric pain/JM valentina 2021: Details: Patient is a [place] Rican speaking 54-year-old male with PMH of BPH, GERD, mental health issues, substance abuse disorder on methadone. Last visit with JONNY Hunter 05/18/2022 for abdominal pain. John was scheduled to complete double endoscopy but states the procedure was not complete due to illness. He reports that for the past eight months, he has experienced difficulty with bowel movements, going approximately every five days. His stools are soft but infrequent, and he occasionally needs [id number] laxatives to defecate. He also mentions lower left quadrant abdominal pain that comes and goes, not relieved by bowel movements. He reports a decreased appetite over the same period. Regarding heartburn, John notes experiencing dry throat and acid reflux for the past seven months. He reports taking omeprazole 40 mg daily for approx 3 years. He describes a sensation as though he has an infection in his throat and tongue, that onset four days ago noting swollen tonsils and difficulty swallowing. He denies any blood in stools, nausea, or vomiting. Patient denies: fever/chills, regurgitation, dysphasia, unintentional wt loss or melena/hematochezia. Social History: Alcohol/Tobacco/Drug Use: -denies alcohol use -Stopped smoking a year and seven months ago. -Prior heroin and cocaines use (last nasal inhalation 7 months ago); methadone maintenance currently at 29mg. [facility] Medical History (Updated 02/28/25 @ 07:58 by Erica De La Cruz CNP) Constipation Anemia Hx of substance abuse Smoker History of Helicobacter pylori infection Spinal pain Hypogonadism Erectile dysfunction Hx: UTI (urinary tract infection) BPH (benign prostatic hyperplasia) Hx of hepatitis C GERD (gastroesophageal reflux disease) Anxiety and depression HTN (hypertension) Murmur Surgical History Hx of cystoscopy Family History Mother Diabetes Social History Unable to assess alcohol history related to: Unknown Alcohol intake: former Patient Tobacco Use Status: Current everyday Tobacco user Substance Use Type: Crack/Cocaine and Heroin Current occupational status: unemployed Review of Systems Const Reports as per HPI ENT Reports as per HPI Card Reports as per HPI Resp Reports as per HPI GI Reports as per HPI Reports as per HPI Physical Exam Vital Signs: Last Vital Signs Pulse 59 02/27/25 14:39 BP 120/65 02/27/25 14:39 Pulse Ox 97 02/27/25 14:39 Oxygen Delivery Method Room Air 02/27/25 14:39 BMI result Body Mass Index 19.8 Const General: healthy appearing, no acute distress and well developed Nutritional Appearance: well nourished Orientation/consciousness: patient oriented x3 HEENT Head: Yes normal to inspection, Yes normocephalic and Yes atraumatic Face and sinus: Yes normal facial exam Mouth: Normal oral and palatal mucosa present Throat: Yes posterior oropharynx normal, Yes abnormal tonsil and Yes other (isolated exudate to left tonsil) Eyes General: appearance normal, both eyes and all related structures Neck Neck: Yes normal visual inspection Resp Effort & Inspection: normal respiratory effort, able to speak in complete sentences, no tracheal deviation and symmetric chest movement Auscultation: clear to auscultation bilaterally Cardio Jugular venous distension: no JVD Rate: regular rate Rhythm: regular rhythm Heart sounds: S1 normal heart sound present, S2 normal heart sound present, no gallops and no murmurs GI Inspection: Yes normal to inspection and No distended Palpation (GI): Soft to palpation, not firm, nontender and No hepatosplenomegaly present Auscultation: normal bowel sounds Neuro General: patient oriented x3 Gait exam (Neuro): Normal gait present Psych Appearance: grossly normal Mental Status: mental status grossly normal Speech and movement: Normal speech and movement present Affect: normal affect Attitude: cooperative Thought process: Normal thought process present Thought content: Normal thought content present Insight: Good insight present (Psych) Judgement: Good judgement present (Psych) Assessment & Plan Assessment & Plan (1) GERD (gastroesophageal reflux disease): Code(s): K21.9 - Gastro-esophageal reflux disease without esophagitis Category: Medical Qualifiers: Esophagitis presence: esophagitis presence not specified Qualified Code(s): K21.9 - Gastro-esophageal reflux disease without esophagitis Plan: Persistent heartburn, dry throat, and recent dysphagia despite intermittent PPI use; symptoms improved with acid suppression in the past. Upper endoscopy indicated due to chronicity and new swallowing difficulty. Additional Tests: -Upper endoscopy to evaluate for esophagitis, stricture or other pathology. Medications: -Discontinue omeprazole. -Start pantoprazole 40 mg PO daily -famotidine 20 mg at bedtime as needed for breakthrough symptoms Encouraged to take pantoprazole as prescribed, taken at least 30-60 minutes before a meal. Education on GERD prevention : -Advised against heavy meals; encouraged small, frequent meals instead of large ones. - Instructed to remain upright for 2?3 hours after eating. - Advised to avoid late-night meals, spicy foods, caffeine, alcohol, known dietary triggers, and tight-fitting clothing. - Emphasis placed on gradual implementation of lifestyle changes to improve adherence and symptom control. Advised follow-up with primary care for acute throat symptoms and possible strep throat evaluation; urgent care recommended for throat swab. Hours reviewed. (2) Constipation: Code(s): K59.00 - Constipation, unspecified Category: Medical Qualifiers: Constipation type: drug induced constipation Qualified Code(s): K59.03 - Drug induced constipation Plan: Chronic opioid use (methadone), infrequent bowel movements (every five days), large stool burden on recent imaging, and need for regular laxative use. Additional Tests: -reviewed labs from 02/25/25, unremarkable -Colonoscopy to rule out structural causes given chronicity and age. Medications: -Continue Miralax daily in the morning. -Stool softeners PRN at bedtime if difficulty persists. Reinforced lifestyle modifications to promote regularity: -higher fiber diet, examples provided -adequate hydration with water -150 minutes of moderate intensity exercise per week Plan Follow-up in 6 weeks or sooner as needed Time: I spent a total of 60 minutes on the date of encounter which includes: Preparing to see the patient (reviewed previous documentation, test results and medical history) Performing a medically appropriate exam and/or evaluation Ordering medications, tests, and procedures Documenting clinical information in the health record about back Medications: New docusate sodium Take one tablet at bedtime as needed for constipation 100 mg PO BEDTIME PRN 90 caps 0RF constipation pantoprazole Take one tablet daily. Best taken 30 minutes before meal. 40 mg PO DAILY 90 tabs 1RF polyethylene glycol 3350 (Miralax) Take 17G (one cap full) daily with 8oz of water 17 grams PO DAILY 510 grams 2RF constipation 30 days famotidine Take one tablet daily at bedtime as needed 20 mg PO DAILY PRN 90 tabs 1RF GERD Coding Level of Care Code New Pt New Pt Level 5 (09059) Patient Type New Diagnoses Gastroesophageal reflux disease, unspecified whether esophagitis present K21.9 Esophagitis presence: esophagitis presence not specified Drug-induced constipation K59.03 Constipation type: drug induced constipation
[2025-02-27 14:39] VITALS: BP 120/65; PULSE 59; O2SAT 97; BMI 19.8
--- OUTSIDE RECORDS SUMMARY | 2025-02-27 14:53 | XMS_ITS | Encounter Summary ---
Author Organization [employer] Address [address] [facility] 7[address] [place] [address] Care Team Providers Care Performance Solutions Specialist Name Role Phone [facility] Primary Care Provider [phone] Reason for Visit * Reason Comments Med Refill Encounter Details Date Type Department Care Team (Late st Contact Info) Description 07/08/2024 Refill [facility] [address] [place], [place] [phone] [facility] [address] [place] [address] Mixed anxiety and depressive disorder Social History [...] Description 03/30/2025 2:45 PM EDT Office Visit [facility] [address] [place] [address] [facility] [address] [place] [address] 04/24/2025 1:00 PM EDT Office Visit [facility] ADULT DENTAL [address] [place] [address] Zachariah, Claudette [address] [place] [address] documented as of this encounter Goals Goal [...] documented as of this encounter Care Teams [employer] Solutions Specialist Relationship Specialty Start Date End Date Clarisse ANETA Johansen [address] [place] [id number] PCP - General Family Medicine 05/01/22 documented as of this encounter
== END 2025-02-27 15:49 | disposition home or self-care (01) ==
LOC: HO.HGI 14:32
PROVIDERS: PCP Registered Nurse; Visit Provider Nurse Practitioner Family
DX: K21.9 Gastro-esophageal reflux disease without esophagitis (principal); K59.03 Drug induced constipation
CPT/HCPCS: 99205

== ENCOUNTER → 2025-02-27 14:32 | Outpatient (BNVA) | payer MEDICAID, SELFPAY | PROVIDERS: PCP Registered Nurse; Visit Provider Nurse Practitioner Family | DX: K21.9 Gastro-esophageal reflux disease without esophagitis (principal); K59.03 Drug induced constipation | CPT/HCPCS: 99212 ==

== ENCOUNTER 2025-03-01 15:42 | Emergency (ER) | payer MEDICAID, SELFPAY ==
--- NOTE | ~2025-03-01 | CT_ITS ---
CLINICAL HISTORY: LLQ pain CT abdomen and pelvis with contrast Comparison: CT abdomen and pelvis 12/01/2024 Findings: No acute findings within visualized lung bases. Liver, spleen, adrenal glands, pancreas, and kidneys are unremarkable. Gallbladder is decompressed. Minimal intra and extrahepatic ductal prominence. No free air or free fluid. Unremarkable urinary bladder. Moderately enlarged prostate gland. Calcified but nonaneurysmal abdominal aorta and iliofemoral vessels. Stomach is unremarkable. Normal caliber small bowel. No small bowel obstruction. Moderate constipation. No acute appendicitis. No free air or free fluid. No pathologically enlarged lymph nodes. No acute osseous abnormality. No lytic or sclerotic osseous lesions. Impression: 1. No acute findings identified in the abdomen or pelvis. 2. Moderate bordering on severe constipation, slightly increased when compared to prior exam. 3. Enlarged prostate. Correlation with PSA is recommended. 4. Additional findings as above. This document has been electronically signed by: Clifton Mon MD on 03/01/2025 20:53:46
--- NOTE | ~2025-03-01 | XR_ITS ---
CLINICAL HISTORY: abd pain constipation 1 view abdomen Comparison: None provided Findings: No pneumoperitoneum or pneumatosis. No abnormal calcifications. No acute fractures. IMPRESSION: The bowel gas pattern is within normal limits This document has been electronically signed by: Piyush Magallon MD on 03/01/2025 17:40:16
[2025-03-01 15:51] VITALS: BP 107/72; PULSE 77; RESP 16; TEMP 36.8; O2SAT 97; BMI 19.9
--- NOTE | 2025-03-01 15:54 | ED.GENADULT ---
HPI - General Adult General Chief complaint: Abdominal Pain Stated complaint: lower abd pain Time Seen by Provider: 03/01/25 17:37 Source: patient Mode of arrival: ambulatory Limitations: no limitations History of Present Illness ED Provider: Dr. Germania Wilburn HPI narrative: patient comes to the emergency room complaining of abdominal pain. Patient states that he has not had a bowel movement in 4 days. Patient denies hematuria or dysuria, denies nausea or vomiting, no diarrhea. No fever chills, no flank pain Related Data Home Medications ?Medication ?Instructions ?Recorded ?Confirmed cholecalciferol (vitamin D3) 50 50 mcg PO DAILY 06/30/20 02/28/25 mcg (2,000 unit) capsule (Vitamin D3) melatonin 5 mg tablet 5 - 10 mg PO BEDTIME PRN 01/12/23 02/28/25 rosuvastatin 10 mg tablet 10 mg PO QAM 01/12/23 02/28/25 amitriptyline 10 mg tablet 10 mg PO BEDTIME 02/18/25 02/28/25 methadone 40 mg soluble tablet 29 mg PO DAILY 02/28/25 02/28/25 Previous Rx's ?Medication ?Instructions ?Recorded furosemide 20 mg tablet (Lasix) 20 mg PO DAILY #90 tabs 08/29/24 needle (disp) 18 G 18 gauge x 1 #30 ea 09/29/24 (BD Regular Bevel [place]) needle (disp) 22 G 22 gauge x 1 #30 ea 10/24/24 syringe (disposable) 3 mL (BD #25 ea 11/27/24 Luer-Vira Syringe) tamsulosin 0.4 mg capsule 0.8 mg (2 x 0.4 mg) PO BEDTIME 90 11/28/24 days #180 caps testosterone cypionate 200 mg/mL 200 mg IM Q2W 28 days #2 mL 11/28/24 intramuscular oil ibuprofen 400 mg tablet 400 mg PO Q6H PRN pain #14 tabs 12/12/24 docusate sodium 100 mg capsule 100 mg PO BEDTIME PRN constipation 02/27/25 #90 caps famotidine 20 mg tablet 20 mg PO DAILY PRN GERD #90 tabs 02/27/25 pantoprazole 40 mg tablet,delayed 40 mg PO DAILY #90 tabs 02/27/25 release polyethylene glycol 3350 17 17 g PO DAILY constipation 30 days 02/27/25 gram/dose oral powder (Miralax) #510 grams lactulose 10 gram/15 mL oral 10 g (15 mL) PO DAILY PRN laxative 03/01/25 solution effect 3 days #50 mL Allergies Allergy/AdvReac Type Severity Reaction Status Date / Time SEAFOOD Allergy Severe ANAPHYLAXIS Uncoded 03/01/25 15:59 shellfish Allergy Severe Anaphylaxis Uncoded 03/01/25 15:59 Review of Systems Review of Systems: Constitutional : No Weight loss, No Fever, No Chills, No Night Sweats, No Fatigue, No Malaise ENT/Mouth : No Hearing loss, No Ear Pain, No Nasal Congestion, No Sinus Pain, No Hoarseness, No sore throat, No Rhinorrhea, No Swallowing Difficulty Eyes: No Eye Pain, No Swelling, No Redness, No Foreign Body, No Discharge, No Vision Changes Cardiovascular : No Chest Pain, No SOB, No Dyspnea on Exertion, No Orthopnea, No Edema, No Palpitations Respiratory : No Cough, No Sputum, No Wheezing, No Smoke Exposure, No Dyspnea Gastrointestinal : No Nausea, No Vomiting, complaining of constipation and abdominal discomfort Genitourinary : no irregular bleeding, No Dysuria, No Urinary Frequency, No Hematuria, No Urinary Incontinence, No Urgency, No Flank Pain, No Urinary Flow Changes, No Hesitancy Musculoskeletal : No joint pain, No Myalgias, No Joint Swelling Skin : No Skin Lesions, No rash Neuro : No Weakness, No Numbness, No Paresthesias, No Loss of Consciousness, No Dizziness, No Headache Psych : No Anxiety/Panic, No Depression, No SI/HI/AH/VH, No Social Issues, Heme/Lymph: No Bruising, No Bleeding,No Lymphadenopathy Endocrine : No Polyuria, No Polydipsia, No Temperature Intolerance [facility] Past Medical History Medical History Constipation Anemia Hx of substance abuse Smoker History of Helicobacter pylori infection Spinal pain Hypogonadism Erectile dysfunction Hx: UTI (urinary tract infection) BPH (benign prostatic hyperplasia) Hx of hepatitis C GERD (gastroesophageal reflux disease) Anxiety and depression HTN (hypertension) Murmur Surgical History Hx of cystoscopy Family History Family History Mother Diabetes Social History Social History Unable to assess alcohol history related to: Unknown Alcohol intake: former Patient Tobacco Use Status: Current everyday Tobacco user Smoked in Last 30 Days: No Use of substances other than those prescribed or required for medical reasons: No Substance Use Type: Crack/Cocaine and Heroin Advance Directives: No Advance Directives Information Provided: No Do you have a plan to hurt others: No Plan Current occupational status: unemployed Physical Exam ED Vital Signs: Vital Signs - 24 hr 03/01/25 15:51 03/01/25 18:47 Temperature 98.3 F 98.2 F Pulse Rate 77 63 Respiratory Rate 16 16 Blood Pressure 107/72 115/62 Pulse Oximetry 97 97 Oxygen Delivery Method Room Air Room Air BMI result Body Mass Index 19.9 Const Other: Appearance: Alert. Oriented X3. No acute distress. Patient well-appearing, eating Low's despite having abdominal pain Eyes: Pupils equal, round and reactive to light. ENT: Pharynx normal. Neck: Normal inspection. Neck supple. No lymph nodes noted. No crepitus CVS: Normal heart rate and rhythm. Pulses normal. Normal S1 and S2 Respiratory: No respiratory distress. Breath sounds normal. No Wheezing. No rales Abdomen: Soft and nontender. slight distention with no rigidity, no rebound or guarding. Skin: Skin warm and dry. Normal skin color. Normal skin turgor. Extremities: No lower extremity edema. No Lacerations. No Rash Neuro: Oriented X 3. No motor deficit. No sensory deficit. Moving all extremities. No slurred speech. CN 2 through 12 grossly intact Psych: calm, cooperative, normal affect Course Course Course Narrative: 03/01/25 [id number] JONNY Baugh This is a Rapid Medical Examination (RME) performed by Sushil Rosales PA-C in triage. Full HPI, ROS, assessment and treatment plan per primary provider in the Main ED. Hx: 54 yo M hx of HTN, anxiety, depression, BPH, hep c, substance abuse on methadone here for eval of abdominal pain x2-3 days. Plan: labs, UA, KUB Medications Administered Discontinued Medications Generic Name Dose Route Start Last Admin Trade Name Freq PRN Reason Stop Dose Admin Iohexol 85 ml 03/01/25 19:17 03/01/25 19:18 Iohexol 350 Mg/Ml 100 Ml Infus..Btl IV 03/01/25 19:18 85 ml ONCE ONE Administration Ketorolac Tromethamine 15 mg 03/01/25 18:20 03/01/25 18:37 Ketorolac Tromethamine 15 Mg/Ml Vial IVPUSH 03/01/25 18:21 15 mg ONCE ONE Administration Medical Decision Making Medical Decision Making [facility] Narrative: My interpretation of labs: Normal hematology: , normal chemistry, normal LFTs were normal lipase, normal urinalysis Lab Data 03/01/25 16:18 03/01/25 16:18 Labs: Lab Results 03/01/25 Range/Units 16:18 WBC 7.1 (4.8-10.8) X10*3/uL RBC 4.79 (4.60-5.80) X10*6/uL Hgb 15.3 (14.0-18.0) g/dl Hct 44.5 (42.0-52.0) % MCV 92.9 (80.0-98.0) fL MCH 31.9 (27.0-33.0) pg MCHC 34.4 (31.0-36.0) g/dl RDW 12.0 (11.0-16.0) % Plt Count 196 (160-400) X10*3/uL MPV 10.9 (9.4-12.4) fL Immature Gran % (Auto) 0.3 (0.0-0.4) % Neut % (Auto) 67.0 (45-73) % Lymph % (Auto) 24.2 (20-40) % [place] % (Auto) 5.3 (2-11) % Eos % (Auto) 2.4 (0-4) % Baso % (Auto) 0.8 (0-2) % Lymph # (Auto) 1.7 (1.2-4.9) X10*3/uL [place] # (Auto) 0.4 (0.1-1.2) X10*3/uL Eos # (Auto) 0.2 (0.0-0.4) X10*3/uL Baso # (Auto) 0.1 (0.0-0.2) X10*3/uL Abs Immat Gran (auto) 0.02 (0.00-0.03) X10*3/uL Absolute Neuts (auto) 4.8 (2.0-8.3) x10*3/uL Absolute Nucleated RBC 0.000 (0.0-0.012) X10*3/uL Nucleated RBC % (auto) 0.0 (0.0-0.2) /100WBC Sodium 140 (135-145) mmol/L Potassium 3.9 (3.3-5.1) mmol/L Chloride 99 (96-108) mmol/L Carbon Dioxide 29 (22-29) mmol/L Anion Gap 16 (12-20) BUN 16 (9-16) mg/dL Creatinine 1.16 (0.5-1.4) mg/dL Estim Creat Clear Calc 59.6 Estimated GFR > 60 Random Glucose 102 (60-115) mg/dL Calcium 9.5 (8.4-10.2) mg/dL Magnesium 2.0 (1.6-2.6) mg/dL Total Bilirubin 1.1 H (0.0-1.0) mg/dL AST 38 H (5-37) U/L ALT 44 H (0-40) U/L Alkaline Phosphatase 61 (39-117) U/L Total Protein 8.1 H (6.5-8.0) g/dL Albumin 4.9 (3.5-5.0) g/dL Lipase 26 (8-78) U/L Urine Color Yellow Urine Appearance Clear Urine pH 7.0 (5.0-9.0) Ur Specific [place] 1.015 (1.005-1.025) Urine Protein Negative (Neg-Trace) mg/dL Urine Glucose (UA) Negative (Negative) mg/dL Urine Ketones Negative (Negative) mg/dL Urine Blood Negative (Negative) Urine Nitrite Negative (Negative) Ur Leukocyte Esterase Negative (Negative) Discharge Plan Discharge Clinical Impression: Constipation Patient Disposition: Home, Self-Care Instructions: Constipation (ED) Additional Instructions: Please follow-up with your primary care physician tomorrow. If you have any worsening or new symptoms, please return to the emergency room or call 911 Prescriptions: New lactulose 10 gram/15 mL solution 10 g PO DAILY PRN (Reason: laxative effect) 3 Days Qty: 50 0RF No Action (DME) needle (disp) 18 G [BD Regular Bevel [place]] 18 gauge x 1 needle See Rx Instructions .Route Qty: 30 0RF Rx Instructions: As directed to draw testosterone (DME) needle (disp) 22 G 22 gauge x 1 needle See Rx Instructions .Route Qty: 30 0RF Rx Instructions: As directed to inject testosterone (DME) syringe (disposable) [BD Luer-Vira Syringe] 3 mL syringe See Rx Instructions .Route Qty: 25 0RF Rx Instructions: As directed 1 syringe [id number] 2 syringes total per month for T injection cholecalciferol (vitamin D3) [Vitamin D3] 50 mcg (2,000 unit) Capsule 50 mcg PO DAILY methadone 40 mg tablet,soluble 29 mg PO DAILY ibuprofen 400 mg tablet 400 mg PO Q6H PRN (Reason: pain) Qty: 14 0RF furosemide [Lasix] 20 mg tablet 20 mg PO DAILY Qty: 90 0RF tamsulosin 0.4 mg capsule 0.8 mg PO BEDTIME 90 Days Qty: 180 1RF testosterone cypionate 200 mg/mL oil 200 mg IM Q2W 28 Days Qty: 2 5RF melatonin 5 mg tablet 5 - 10 mg PO BEDTIME PRN rosuvastatin 10 mg tablet 10 mg PO QAM amitriptyline 10 mg tablet 10 mg PO BEDTIME pantoprazole 40 mg tablet,delayed release (DR/EC) 40 mg PO DAILY Qty: 90 1RF Rx Instructions: Take one tablet daily. Best taken 30 minutes before meal. famotidine 20 mg tablet 20 mg PO DAILY PRN (Reason: GERD) Qty: 90 1RF Rx Instructions: Take one tablet daily at bedtime as needed polyethylene glycol 3350 [Miralax] 17 gram/dose powder 17 g PO DAILY 30 Days Qty: 510 2RF Rx Instructions: Take 17G (one cap full) daily with 8oz of water docusate sodium 100 mg capsule 100 mg PO BEDTIME PRN (Reason: constipation) Qty: 90 0RF Rx Instructions: Take one tablet at bedtime as needed for constipation Print Language: [place]
[2025-03-01 16:37] LABS: MANUAL DIFF FLAG NO
[2025-03-01 16:38] LABS: Basophils Absolute Auto 0.1 X10*3/uL (0.0-0.2); Basophils Percent Auto 0.8 % (0-2); Eosinophils Absolute Auto 0.2 X10*3/uL (0.0-0.4); Eosinophils Percent Auto 2.4 % (0-4); Hematocrit 44.5 % (42.0-52.0); Hemoglobin 15.3 g/dl (14.0-18.0); Imm Gran Abs Auto 0.02 X10*3/uL (0.00-0.03); Imm Gran Pct Auto 0.3 % (0.0-0.4); Lymphocytes Absolute Auto 1.7 X10*3/uL (1.2-4.9); Lymphocytes Percent Auto 24.2 % (20-40); Mean Corpuscular HGB Conc 34.4 g/dl (31.0-36.0); Mean Corpuscular Hemoglobin 31.9 pg (27.0-33.0); Mean Corpuscular Volume 92.9 fL (80.0-98.0); Mean Platelet Volume 10.9 fL (9.4-12.4); Monocytes Absolute Auto 0.4 X10*3/uL (0.1-1.2); Monocytes Percent Auto 5.3 % (2-11); Neutrophils Absolute Auto 4.8 x10*3/uL (2.0-8.3); Platelet Count 196 X10*3/uL (160-400); Red Blood Count 4.79 X10*6/uL (4.60-5.80); White Blood Count 7.1 X10*3/uL (4.8-10.8)
[2025-03-01 16:42] LABS: Appearance Urine Clear; Color Urine Yellow; Glucose Urine UA Negative (Negative); Leukocyte Esterase Urine Negative (Negative); Nitrite Urine Negative (Negative); Specific Gravity - Urine 1.015 (1.005-1.025); Urine Blood Negative (Negative); Urine Ketones Negative (Negative); Urine Protein Negative (Neg-Trace)
[2025-03-01 17:07] LABS: Alanine Aminotransferase 44 U/L (0-40); Albumin Level 4.9 g/dL (3.5-5.0); Alkaline Phosphatase 61 U/L (39-117); Anion Gap 16 (12-20); Aspartate Amino Transferase 38 U/L (5-37); Bilirubin Total 1.1 mg/dL (0.0-1.0); Blood Urea Nitrogen 16 mg/dL (9-16); Calcium 9.5 mg/dL (8.4-10.2); Carbon Dioxide 29 mmol/L (22-29); Chloride 99 mmol/L (96-108); Creatinine Clr Calc Pharmacy 59.6; Estimated Glomerular Filt Rate > 60; Glucose Random 102 mg/dL (60-115); Lipase 26 U/L (8-78); Potassium 3.9 mmol/L (3.3-5.1); Sodium 140 mmol/L (135-145); Total Protein 8.1 g/dL (6.5-8.0)
[2025-03-01] MEDS: Ketorolac Tromethamine 15 MG/ML VIAL IVPUSH (18:37)
[2025-03-01 18:47] VITALS: BP 115/62; PULSE 63; RESP 16; TEMP 36.8; O2SAT 97
[2025-03-01] MEDS: iohexoL 350 MG/ML 100 ML INFUS..BTL 85 ML IV (19:18)
[2025-03-01 22:49] VITALS: BP 120/69; PULSE 65; RESP 20; TEMP 36.6; O2SAT 98
== END 2025-03-01 22:50 | disposition home or self-care (01) ==
PROVIDERS: Physician Assistant Medical; Emergency Provider Emergency Medicine; PCP Registered Nurse
DX: K59.00 Constipation, unspecified (principal); R10.32 Left lower quadrant pain
CPT/HCPCS: 36415; 74018; 74177; 80053; 81003; 83690; 83735; 85025; 96374; 99284; J1885; Q9967

== ENCOUNTER → 2025-03-01 15:58 | Outpatient (BNV) | payer MEDICAID, SELFPAY | PROVIDERS: Emergency Provider Emergency Medicine; PCP Registered Nurse; Visit Provider Radiology Vascular & Interventional Radiology | DX: N40.2 Nodular prostate without lower urinary tract symptoms (principal); R10.9 Unspecified abdominal pain | CPT/HCPCS: 74018; 74177 ==

== ENCOUNTER 2025-03-09 10:27 | Emergency (ER) | payer MEDICAID, SELFPAY ==
[2025-03-09 10:49] VITALS: BP 106/62; PULSE 74; RESP 18; TEMP 36.9; O2SAT 98; BMI 20.1
[2025-03-09 11:12] LABS: MANUAL DIFF FLAG NO
[2025-03-09 11:15] LABS: Hematocrit 42.0 % (42.0-52.0); Hemoglobin 14.4 g/dl (14.0-18.0); Imm Gran Abs Auto 0.01 X10*3/uL (0.00-0.03); Imm Gran Pct Auto 0.2 % (0.0-0.4); Lymphocytes Absolute Auto 1.5 X10*3/uL (1.2-4.9); Mean Corpuscular HGB Conc 34.3 g/dl (31.0-36.0); Mean Corpuscular Hemoglobin 31.9 pg (27.0-33.0); Mean Corpuscular Volume 93.1 fL (80.0-98.0); NRBC Abs Auto 0.000 X10*3/uL (0.0-0.012); NRBC Pct Auto 0.0 /100WBC (0.0-0.2); Platelet Count 164 X10*3/uL (160-400); Red Blood Count 4.51 X10*6/uL (4.60-5.80); White Blood Count 5.2 X10*3/uL (4.8-10.8)
[2025-03-09 11:18] LABS: Appearance Urine Turbid; Glucose Urine UA Negative (Negative); PH >= 9.0 (5.0-9.0); Specific Gravity - Urine 1.020 (1.005-1.025)
[2025-03-09 11:32] LABS: Alanine Aminotransferase 34 U/L (0-40); Albumin Level 4.6 g/dL (3.5-5.0); Alkaline Phosphatase 52 U/L (39-117); Anion Gap 10 (12-20); Aspartate Amino Transferase 31 U/L (5-37); Blood Urea Nitrogen 16 mg/dL (9-16); Calcium 9.1 mg/dL (8.4-10.2); Carbon Dioxide 30 mmol/L (22-29); Chloride 103 mmol/L (96-108); Creatinine Clr Calc Pharmacy 65.4; Estimated Glomerular Filt Rate > 60; Lipase 25 U/L (8-78); Potassium 4.1 mmol/L (3.3-5.1); Sodium 139 mmol/L (135-145); Total Protein 7.3 g/dL (6.5-8.0)
--- NOTE | 2025-03-09 11:59 | ED_ITS ---
HPI - Abdominal Pain General Chief Complaint: Abdominal Pain Stated Complaint: Hip/leg pain Time Seen by Provider: 03/09/25 11:31 Source: patient and sash installer Mode of arrival: ambulatory Limitations: no limitations History of Present Illness ED Provider: DR. Ashby HPI narrative: 54-year-old male came for evaluation of lower abdominal pain ?my bladder is inflamed ?, patient was seen multiple times in the past for abdominal pain had an extensive workup in the past in our ED without finding a cause for patient's symptoms, patient otherwise had normal bowel movement this morning with no blood in the stool, no diarrhea, no dysuria, no frequency urination, no hematuria, no fever, chills, patient declined any past intra-abdominal surgery. Related Data Home Medications ?Medication ?Instructions ?Recorded ?Confirmed cholecalciferol (vitamin D3) 50 50 mcg PO DAILY 02/28/25 mcg (2,000 unit) capsule (Vitamin D3) melatonin 5 mg tablet 5 - 10 mg PO BEDTIME PRN 08/2502/28/25 rosuvastatin 10 mg tablet 10 mg PO QAM 01/12/23 amitriptyline 10 mg tablet 10 mg PO BEDTIME 02/18/25 0 02/28/25 methadone 40 mg soluble tablet 29 mg PO DAILY 02/28/25 02/28/25 Previous Rx's ?Medication ?Instructions ?Recorded furosemide 20 mg tablet (Lasix) 20 mg PO DAILY #90 tab s 08/29/24 needle (disp) 18 G 18 gauge x 1 #30 ea 09/29/24 (BD Regular Bevel [place]) needle (disp) 22 G 22 gauge x 1 #30 ea 10/24/24 syringe (disposable) 3 mL (BD #25 ea 11/27/24 Luer-Vira Syringe) tamsulosin 0.4 mg capsule 0.8 mg (2 x 0.4 mg) PO BEDTI ME 90 11/28/24 days #180 caps testosterone cypionate 200 mg/mL 200 mg IM Q2W 28 days #2 mL 11/28/24 intramuscular oil ibuprofen 400 mg tablet 400 mg PO Q6H PRN pain #14 t abs 12/12/24 docusate sodium 100 mg capsule 100 mg PO BEDTIME PRN c onstipation 02/27/25 #90 caps famotidine 20 mg tablet 20 mg PO DAILY PRN GERD #90 tabs 02/27/25 pantoprazole 40 mg tablet,delayed 40 mg PO DAILY #90 t abs 02/27/25 release polyethylene glycol 3350 17 17 g PO DAILY constipation 30 days 02/27/25 gram/dose oral powder (Miralax) #510 grams lactulose 10 gram/15 mL oral 10 g (15 mL) PO DAILY PRN laxative 03/01/25 solution effect 3 days #50 mL Allergies Allergy/AdvReac Type Severity Reaction Status Date / Time SEAFOOD Allergy Severe ANAPHYLAXIS Uncoded 03/09/25 10:52 shellfish Allergy Severe Anaphylaxis Uncoded 03/09/25 10:52 Review of Systems Review of Systems All other systems are reviewed and are negative Constitutional: Reports as per HPI and Reports no additional constitutional complaints Eyes: Reports as per HPI and Reports no additional eye complaints Reports system reviewed and no additional complaints, except as documented Cardiovascular: Reports as per HPI and Reports no additional cardiovascular complaints Respiratory: Reports as per HPI and Reports no additional respiratory complaints Gastrointestinal: Reports as per HPI and Reports no additional gastrointestinal complaints Genitourinary: Reports no additional female genitourinary complaints Musculoskeletal: Reports no additional musculoskeletal complaints Skin/Breast: Reports system reviewed and no additional complaints, except as docu Psychiatric: Reports no additional psychiatric complaints Endocrine: Reports no additional endocrine complaints Hematologic/Lymphatic: Reports no additional hematologic/lymphatic complaints Allergic/Immunologic: Reports no additional allergic/immunologic complaints Reports system reviewed and no additional complaints, except as documented and Reports Abnormal speech present [facility] Past Medical History Medical History Constipation Anemia Hx of substance abuse Smoker History of Helicobacter pylori infection Spinal pain Hypogonadism Erectile dysfunction Hx: UTI (urinary tract infection) BPH (benign prostatic hyperplasia) Hx of hepatitis C GERD (gastroesophageal reflux disease) Anxiety and depression HTN (hypertension) Murmur Surgical History Hx of cystoscopy Family History Family History Mother Diabetes Social History Social History Unable to assess alcohol history related to: Unknown Alcohol intake: former Patient Tobacco Use Status: Current everyday Tobacco user Substance Use Type: Crack/Cocaine and Heroin Advance Directives: No Advance Directives Information Provided: Yes Current occupational status: unemployed Physical Exam ED Vital Signs: Vital Signs - 24 hr 03/09/25 10:49 Temperature 98.4 F Pulse Rate 74 Respiratory Rate 18 Blood Pressure 106/62 Pulse Oximetry 98 BMI result Body Mass Index 20.1 Vital signs have been reviewed and appear to be correct. Blood pressure elevated. Heart rate normal. Respiratory rate normal. Temperature normal. Oxygen saturation normal. Appearance: Alert. Oriented X3. No acute distress. Head: Normal external exam. Normocephalic. Atraumatic. No Marrufo signs noted. No raccoon eyes noted Eyes: PERRLA. EOMI. Conjunctiva and sclera normal. Eyelids normal. ENT: TM's Normal. Pharynx normal. Uvula midline. Moist mucous membranes. No trismus noted. No drooling noted. No muffled voice noted. Neck: Normal inspection. Neck supple. FROM. No adenopathy. Thyroid Normal. No meningeal signs. No neck mass noted. CVS: Normal heart rate and rhythm. Heart sound normal. No murmurs noted. Pulses normal throughout. Respiratory: No respiratory distress. Painless inspiration. Breath sounds normal. No wheezes/rales/rhonchi noted. Chest nontender. No accessory muscle usage noted or decreased air movement noted. Abdomen: Soft and nontender. Bowel sounds normal in all 4 quadrants. No distention noted. No organomegaly noted. No visible injury noted. Back: No CVA tenderness. Full range of motion noted. Skin: Skin warm and dry. Normal skin color. Normal skin turgor. No rashes/lesions/lacerations noted. Extremities: No lower extremity edema. Extremities exhibit normal range of motion. Extremities nontender. Neuro: Oriented X 3. Cranial nerve exam: II-XII are grossly intact No motor deficit. No sensory deficit. Reflexes normal. Course Reevaluation(s) Reevaluation #1: Multiple ED visit for lower abdominal pain, today's visit patient has no abdominal tenderness on physical exam, unremarkable labs at his baseline, clear urine, given the above findings no need for any further workup for patient's symptoms today patient was instructed to follow-up with his PCP for outpatient workup. Time: 13:00 Medical Decision Making Differential Diagnosis Differential Diagnoses: The differential diagnosis associated with the presentation includes (UTI, pyelonephritis, kidney stone, colitis, cystitis, diverticulitis, pancreatitis, electrolyte derangement, severe anemia.) Admission/Observation Consideration of admission/observation: Escalation of care including admission/observation considered Lab Data MDM Lab Attestation statement: I reviewed the patient's lab results. 03/09/25 11:05 03/09/25 11:05 Labs: Lab Results 03/09/25 Range/Units 11:05 WBC 5.2 (4.8-10.8) X10*3/uL RBC 4.51 L (4.60-5.80) X10*6/uL Hgb 14.4 (14.0-18.0) g/dl Hct 42.0 (42.0-52.0) % MCV 93.1 (80.0-98.0) fL MCH 31.9 (27.0-33.0) pg MCHC 34.3 (31.0-36.0) g/dl RDW 12.0 (11.0-16.0) % Plt Count 164 (160-400) X10*3/uL MPV 11.2 (9.4-12.4) fL Immature Gran % (Auto) 0.2 (0.0-0.4) % Neut % (Auto) 62.2 (45-73) % Lymph % (Auto) 28.8 (20-40) % Graves % (Auto) 5.5 (2-11) % Eos % (Auto) 2.7 (0-4) % Baso % (Auto) 0.6 (0-2) % Lymph # (Auto) 1.5 (1.2-4.9) X10*3/uL Graves # (Auto) 0.3 (0.1-1.2) X10*3/uL Eos # (Auto) 0.1 (0.0-0.4) X10*3/uL Baso # (Auto) 0.0 (0.0-0.2) X10*3/uL Abs Immat Gran (auto) 0.01 (0.00-0.03) X10*3/uL Absolute Neuts (auto) 3.3 (2.0-8.3) x10*3/uL Absolute Nucleated RBC 0.000 (0.0-0.012) X10*3/uL Nucleated RBC % (auto) 0.0 (0.0-0.2) /100WBC Sodium 139 (135-145) mmol/L Potassium 4.1 (3.3-5.1) mmol/L Chloride 103 (96-108) mmol/L Carbon Dioxide 30 H (22-29) mmol/L Anion Gap 10 L (12-20) BUN 16 (9-16) mg/dL Creatinine 1.07 (0.5-1.4) mg/dL Estim Creat Clear Calc 65.4 Estimated GFR > 60 Random Glucose 113 (60-115) mg/dL Calcium 9.1 (8.4-10.2) mg/dL Total Bilirubin 1.0 (0.0-1.0) mg/dL Direct Bilirubin 0.3 (0.0-0.5) mg/dL AST 31 (5-37) U/L ALT 34 (0-40) U/L Alkaline Phosphatase 52 (39-117) U/L Total Protein 7.3 (6.5-8.0) g/dL Albumin 4.6 (3.5-5.0) g/dL Lipase 25 (8-78) U/L Urine Color Yellow Urine Appearance Turbid Urine pH >= 9.0 (5.0-9.0) Ur Specific Eleanor 1.020 (1.005-1.025) Urine Protein Trace (Neg-Trace) mg/dL Urine Glucose (UA) Negative (Negative) mg/dL Urine Ketones Negative (Negative) mg/dL Urine Blood Negative (Negative) Urine Nitrite Negative (Negative) Ur Leukocyte Esterase Negative (Negative) Discharge Plan Discharge Clinical Impression: Chronic abdominal pain Patient Disposition: Home, Self-Care Instructions: Chronic Pain (ED) Additional Instructions: Follow-up with your PCP and arrange for outpatient workup including GI follow. Prescriptions: No Action (DME) needle (disp) 18 G [BD Regular Bevel [place]] 18 gauge x 1 needle See Rx Instructions .Route Qty: 30 0RF Rx Instructions: As directed to draw testosterone (DME) needle (disp) 22 G 22 gauge x 1 needle See Rx Instructions .Route Qty: 30 0RF Rx Instructions: As directed to inject testosterone (DME) syringe (disposable) [BD Luer-Vira Syringe] 3 mL syringe See Rx Instructions .Route Qty: 25 0RF Rx Instructions: As directed 1 syringe [id number] 2 syringes total per month for T injection cholecalciferol (vitamin D3) [Vitamin D3] 50 mcg (2,000 unit) Capsule 50 mcg PO DAILY methadone 40 mg tablet,soluble 29 mg PO DAILY lactulose 10 gram/15 mL solution 10 g PO DAILY PRN (Reason: laxative effect) 3 Days Qty: 50 0RF ibuprofen 400 mg tablet 400 mg PO Q6H PRN (Reason: pain) Qty: 14 0RF furosemide [Lasix] 20 mg tablet 20 mg PO DAILY Qty: 90 0RF tamsulosin 0.4 mg capsule 0.8 mg PO BEDTIME 90 Days Qty: 180 1RF testosterone cypionate 200 mg/mL oil 200 mg IM Q2W 28 Days Qty: 2 5RF melatonin 5 mg tablet 5 - 10 mg PO BEDTIME PRN rosuvastatin 10 mg tablet 10 mg PO QAM amitriptyline 10 mg tablet 10 mg PO BEDTIME pantoprazole 40 mg tablet,delayed release (DR/EC) 40 mg PO DAILY Qty: 90 1RF Rx Instructions: Take one tablet daily. Best taken 30 minutes before meal. famotidine 20 mg tablet 20 mg PO DAILY PRN (Reason: GERD) Qty: 90 1RF Rx Instructions: Take one tablet daily at bedtime as needed polyethylene glycol 3350 [Miralax] 17 gram/dose powder 17 g PO DAILY 30 Days Qty: 510 2RF Rx Instructions: Take 17G (one cap full) daily with 8oz of water docusate sodium 100 mg capsule 100 mg PO BEDTIME PRN (Reason: constipation) Qty: 90 0RF Rx Instructions: Take one tablet at bedtime as needed for constipation Referrals: Haily Robb, MARKETING COMMUNICATIONS COORDINATOR [Primary Care Provider, Medical] Print Language: Luxembourgish
--- OUTSIDE RECORDS SUMMARY | 2025-03-09 12:35 | XMS_ITS | Encounter Summary ---
Author Organization [employer] Address [address] [place] [address] Care Team Providers Care Baked And Graphite Inspector Name Role Phone [facility] Primary Care Provider [phone] Reason for Visit * Reason Comments Med Refill Encounter Details Date Type Department Care Team (Late st Contact Info) Description 07/08/2024 Refill [facility] [address] [place], [place] [id number] [facility] [address] [place] [address] Mixed anxiety and depressive disorder Social History [...] Description 03/30/2025 2:45 PM EDT Office Visit [facility] [address] [place] [address] [facility] [address] [place] [address] 04/24/2025 1:00 PM EDT Office Visit [facility] [address] [place] [address] Zachariah, Claudette [address] [place] [address] documented as of this encounter Goals Goal [...] documented as of this encounter Care Teams Baked And Graphite Inspector Relationship Specialty Start Date End Date Clarisse ANETA Johansen [address] [place] [id number] PCP - General Family Medicine 05/01/22 documented as of this encounter
--- OUTSIDE RECORDS SUMMARY | 2025-03-09 12:35 | XMS_ITS | Clinical Summary ---
Author Organization [facility] Address [address] [place] [address] Phone Care Team Providers Care Talent Acquisition Relationship Manager Name Role Phone [facility] Primary Care Provider [phone] Medications polyethylene glycol (Golytely) [id number] -5.86 gram [...] Billing Address Personal/Family Self 1970 [address] [facility] [address] [place] [address] MEDICA[place] - [place] Care Teams Talent Acquisition Relationship Manager Relationship Specialty Start Date End Date Haily Robb [address] [id number] PCP - General 05/20/24
--- NOTE | 2025-03-09 12:45 | PC.NURSE ---
patient a&ox3, vss, pt has c/o pain which the provider was aware of, labs previously drawn, urine previously obtained, plan of care ongoing.
[2025-03-09 13:15] VITALS: BP 108/78; PULSE 76; RESP 18; TEMP 36.8; O2SAT 98
[2025-03-09 13:25] VITALS: BP 108/78; PULSE 76; RESP 18; TEMP 36.8; O2SAT 98
== END 2025-03-09 13:26 | disposition home or self-care (01) ==
PROVIDERS: Emergency Provider Emergency Medicine; PCP Registered Nurse
DX: R10.2 Pelvic and perineal pain (principal); F17.210 Nicotine dependence, cigarettes, uncomplicated; M79.605 Pain in left leg; M79.604 Pain in right leg
CPT/HCPCS: 36415; 80048; 80076; 81003; 83690; 85025; 99283; 99284

== ENCOUNTER 2025-04-05 11:12 | Emergency (ER) | payer MEDICAID, SELFPAY ==
[2025-04-05 11:18] VITALS: BP 106/73; PULSE 84; RESP 20; TEMP 36.6; O2SAT 98; BMI 19.8
--- NOTE | 2025-04-05 11:18 | ED.ABDPAIN ---
HPI - Abdominal Pain General Chief Complaint: Abdominal Pain Stated Complaint: abd pain, pain all over Time Seen by Provider: 04/05/25 13:07 History of Present Illness ED Provider: Jamie ANN narrative: The patient is a 54-year-old male who comes to the emergency room saying that he has had ?gastritis? pain across his upper abdomen for the last 5 days. He has also been experiencing a sense of reflux that is uncomfortable and unpleasant and associated with a bad taste in his mouth. No fever, sweats, chills. No cough or sputum. No change in his bowel habits. No dark or black stools. The patient sometimes experiences difficulty voiding he says. Related Data Home Medications ?Medication ?Instructions ?Recorded ?Confirmed cholecalciferol (vitamin D3) 50 50 mcg PO DAILY 06/30/20 02/28/25 mcg (2,000 unit) capsule (Vitamin D3) melatonin 5 mg tablet 5 - 10 mg PO BEDTIME PRN 01/12/23 02/28/25 rosuvastatin 10 mg tablet 10 mg PO QAM 01/12/23 02/28/25 amitriptyline 10 mg tablet 10 mg PO BEDTIME 02/18/25 02/28/25 methadone 40 mg soluble tablet 29 mg PO DAILY 02/28/25 02/28/25 Previous Rx's ?Medication ?Instructions ?Recorded furosemide 20 mg tablet (Lasix) 20 mg PO DAILY #90 tabs 08/29/24 needle (disp) 18 G 18 gauge x 1 #30 ea 09/29/24 (BD Regular Bevel [place]) needle (disp) 22 G 22 gauge x 1 #30 ea 10/24/24 syringe (disposable) 3 mL (BD #25 ea 11/27/24 Luer-Vira Syringe) tamsulosin 0.4 mg capsule 0.8 mg (2 x 0.4 mg) PO BEDTIME 90 11/28/24 days #180 caps testosterone cypionate 200 mg/mL 200 mg IM Q2W 28 days #2 mL 11/28/24 intramuscular oil ibuprofen 400 mg tablet 400 mg PO Q6H PRN pain #14 tabs 12/12/24 docusate sodium 100 mg capsule 100 mg PO BEDTIME PRN constipation 02/27/25 #90 caps famotidine 20 mg tablet 20 mg PO DAILY PRN GERD #90 tabs 02/27/25 pantoprazole 40 mg tablet,delayed 40 mg PO DAILY #90 tabs 02/27/25 release polyethylene glycol 3350 17 17 g PO DAILY constipation 30 days 02/27/25 gram/dose oral powder (Miralax) #510 grams lactulose 10 gram/15 mL oral 10 g (15 mL) PO DAILY PRN laxative 03/01/25 solution effect 3 days #50 mL sucralfate 1 gram tablet 1 g PO TID PRN Epigastric 04/05/25 discomfort, gastritis #60 tabs Allergies Allergy/AdvReac Type Severity Reaction Status Date / Time SEAFOOD Allergy Severe ANAPHYLAXIS Uncoded 04/05/25 11:21 shellfish Allergy Severe Anaphylaxis Uncoded 04/05/25 11:21 Review of Systems Review of Systems Yes all other systems are reviewed and are negative [facility] Past Medical History Medical History Constipation Anemia Hx of substance abuse Smoker History of Helicobacter pylori infection Spinal pain Hypogonadism Erectile dysfunction Hx: UTI (urinary tract infection) BPH (benign prostatic hyperplasia) Hx of hepatitis C GERD (gastroesophageal reflux disease) Anxiety and depression HTN (hypertension) Murmur Surgical History Hx of cystoscopy Family History Family History Mother Diabetes Social History Social History Unable to assess alcohol history related to: Unknown Alcohol intake: former Patient Tobacco Use Status: Current everyday Tobacco user Substance Use Type: Crack/Cocaine and Heroin Advance Directives: No Advance Directives Information Provided: No Do you have a plan to hurt others: No Plan Current occupational status: unemployed Physical Exam ED Vital Signs: Vital Signs - 24 hr 04/05/25 11:18 04/05/25 13:57 04/05/25 14:02 Temperature 98 F 98.1 F 98.1 F Pulse Rate 84 60 60 Respiratory Rate 20 17 17 Blood Pressure 106/73 117/61 117/61 Pulse Oximetry 98 97 97 Oxygen Delivery Method Room Air Room Air Room Air BMI result Body Mass Index 19.8 Const Other: The patient is a slim 54-year-old male. He looks somewhat chronically ill. He does not appear acutely ill. He seems somewhat anxious and hypochondricall. Orientation/consciousness: patient oriented x3 HENMT Other: The face is symmetrical. Mucous membranes moist. Eyes Other: Pupils are round equal, conjunctivae are clear, extraocular movements intact Neck Neck: Yes normal visual inspection, Yes full ROM and Yes no lymphadenopathy Resp Effort & Inspection: normal respiratory effort Auscultation: clear to auscultation bilaterally Cardio Rate: regular rate Rhythm: regular rhythm Heart sounds: S1 normal heart sound present and S2 normal heart sound present GI Other: Abdomen is soft and nontender Skin Other: The skin is dry and unremarkable Neuro General: patient oriented x3, gait normal, tone normal, moves all extremities, no focal motor deficits and CN's II-XI intact bilaterally Extrem Other: There is no calf swelling or tenderness. No asymmetry. No peripheral edema. Course Course Course Narrative: This is an RME performed by [facility] ORCHID SUPERINTENDENT: Additional HPI, ROS, PE not included below will be deferred to primary provider. Patient is a 54-year-old male who presents emergency department for evaluation of 5 days with very bad acid reflux, taking omeprazole 40mg daily in the am, pepto with minimal relief. Reports having chronic diffuse lower ABD and LUQ abdominal pain. Plan: Serum labs Medical Decision Making Medical Decision Making MDM Narrative: The patient is a 54-year-old male who has a history of frequent ER visits for abdominal pains. He presents with abdominal pain today. He does not appear ill at all. His vital signs are normal. His abdomen is benign. Perhaps he has some degree of gastritis. He will be prescribed omeprazole and sucralfate. He should follow up his PCP. Lab Data 04/05/25 11:30 04/05/25 11:30 Labs: Lab Results 04/05/25 Range/Units 11:30 WBC 6.4 (4.8-10.8) X10*3/uL RBC 4.33 L (4.60-5.80) X10*6/uL Hgb 14.1 (14.0-18.0) g/dl Hct 39.8 L (42.0-52.0) % MCV 91.9 (80.0-98.0) fL MCH 32.6 (27.0-33.0) pg MCHC 35.4 (31.0-36.0) g/dl RDW 12.1 (11.0-16.0) % Plt Count 159 L (160-400) X10*3/uL MPV 10.9 (9.4-12.4) fL Immature Gran % (Auto) 0.3 (0.0-0.4) % Neut % (Auto) 75.3 H (45-73) % Lymph % (Auto) 18.3 L (20-40) % Canyon % (Auto) 4.5 (2-11) % Eos % (Auto) 1.1 (0-4) % Baso % (Auto) 0.5 (0-2) % Lymph # (Auto) 1.2 (1.2-4.9) X10*3/uL [place] # (Auto) 0.3 (0.1-1.2) X10*3/uL Eos # (Auto) 0.1 (0.0-0.4) X10*3/uL Baso # (Auto) 0.0 (0.0-0.2) X10*3/uL Abs Immat Gran (auto) 0.02 (0.00-0.03) X10*3/uL Absolute Neuts (auto) 4.9 (2.0-8.3) x10*3/uL Absolute Nucleated RBC 0.000 (0.0-0.012) X10*3/uL Nucleated RBC % (auto) 0.0 (0.0-0.2) /100WBC Sodium 142 (135-145) mmol/L Potassium 4.2 (3.3-5.1) mmol/L Chloride 103 (96-108) mmol/L Carbon Dioxide 30 H (22-29) mmol/L Anion Gap 13 (12-20) BUN 22 H (9-16) mg/dL Creatinine 0.99 (0.5-1.4) mg/dL Estim Creat Clear Calc 69.4 Estimated GFR > 60 Random Glucose 97 (60-115) mg/dL Calcium 9.4 (8.4-10.2) mg/dL Total Bilirubin 1.4 H (0.0-1.0) mg/dL AST 36 (5-37) U/L ALT 56 H (0-40) U/L Alkaline Phosphatase 54 (39-117) U/L Total Protein 7.8 (6.5-8.0) g/dL Albumin 5.0 (3.5-5.0) g/dL Lipase 30 (8-78) U/L Medications Administered Discontinued Medications Generic Name Dose Route Start Last Admin Trade Name Freq PRN Reason Stop Dose Admin Sucralfate 1 gm 04/05/25 13:43 04/05/25 14:00 Sucralfate Oral Suspension 1 Gm/10 Ml Oral.Susp PO 04/05/25 13:44 1 gm ONCE ONE Administration Discharge Plan Discharge Clinical Impression: Gastritis Gastroesophageal reflux Qualifiers: Esophagitis presence: esophagitis presence not specified Qualified Code(s): K21.9 - Gastro-esophageal reflux disease without esophagitis Patient Disposition: Home, Self-Care Instructions: GERD (Gastroesophageal Reflux Disease) (ED) Additional Instructions: Your blood testing is reassuring. I think your symptoms are coming from your stomach acid. Please make sure that you continue taking your omeprazole. In addition you may use the new medication, sucralfate, up to 3 times a day as needed for discomfort. Please follow up soon with your regular doctor and plan on keeping your appointment with the buildings painter for your further testing. Also follow up with Urology for your urinary symptoms. Return to the emergency room if significantly worse. Prescriptions: New sucralfate 1 gram tablet 1 g PO TID PRN (Reason: Epigastric discomfort, gastritis) Qty: 60 0RF No Action (DME) needle (disp) 18 G [BD Regular Bevel [place]] 18 gauge x 1 needle See Rx Instructions .Route Qty: 30 0RF Rx Instructions: As directed to draw testosterone (DME) needle (disp) 22 G 22 gauge x 1 needle See Rx Instructions .Route Qty: 30 0RF Rx Instructions: As directed to inject testosterone (DME) syringe (disposable) [BD Luer-Vira Syringe] 3 mL syringe See Rx Instructions .Route Qty: 25 0RF Rx Instructions: As directed 1 syringe [id number] 2 syringes total per month for T injection cholecalciferol (vitamin D3) [Vitamin D3] 50 mcg (2,000 unit) Capsule 50 mcg PO DAILY methadone 40 mg tablet,soluble 29 mg PO DAILY lactulose 10 gram/15 mL solution 10 g PO DAILY PRN (Reason: laxative effect) 3 Days Qty: 50 0RF ibuprofen 400 mg tablet 400 mg PO Q6H PRN (Reason: pain) Qty: 14 0RF furosemide [Lasix] 20 mg tablet 20 mg PO DAILY Qty: 90 0RF tamsulosin 0.4 mg capsule 0.8 mg PO BEDTIME 90 Days Qty: 180 1RF testosterone cypionate 200 mg/mL oil 200 mg IM Q2W 28 Days Qty: 2 5RF melatonin 5 mg tablet 5 - 10 mg PO BEDTIME PRN rosuvastatin 10 mg tablet 10 mg PO QAM amitriptyline 10 mg tablet 10 mg PO BEDTIME pantoprazole 40 mg tablet,delayed release (DR/EC) 40 mg PO DAILY Qty: 90 1RF Rx Instructions: Take one tablet daily. Best taken 30 minutes before meal. famotidine 20 mg tablet 20 mg PO DAILY PRN (Reason: GERD) Qty: 90 1RF Rx Instructions: Take one tablet daily at bedtime as needed polyethylene glycol 3350 [Miralax] 17 gram/dose powder 17 g PO DAILY 30 Days Qty: 510 2RF Rx Instructions: Take 17G (one cap full) daily with 8oz of water docusate sodium 100 mg capsule 100 mg PO BEDTIME PRN (Reason: constipation) Qty: 90 0RF Rx Instructions: Take one tablet at bedtime as needed for constipation Referrals: Haily Robb, VINEYARD SUPERVISOR [Primary Care Provider, Medical] Interventions: ED Discharge Assessment Last Done: 04/05/25 14:02 Discharge Date/Time: 04/05/25 14:03 Print Language: [place] Islander
[2025-04-05 11:44] LABS: MANUAL DIFF FLAG NO
[2025-04-05 11:46] LABS: Hematocrit 39.8 % (42.0-52.0); Hemoglobin 14.1 g/dl (14.0-18.0); Imm Gran Abs Auto 0.02 X10*3/uL (0.00-0.03); Imm Gran Pct Auto 0.3 % (0.0-0.4); Lymphocytes Absolute Auto 1.2 X10*3/uL (1.2-4.9); Mean Corpuscular HGB Conc 35.4 g/dl (31.0-36.0); Mean Corpuscular Hemoglobin 32.6 pg (27.0-33.0); Mean Corpuscular Volume 91.9 fL (80.0-98.0); NRBC Abs Auto 0.000 X10*3/uL (0.0-0.012); NRBC Pct Auto 0.0 /100WBC (0.0-0.2); Platelet Count 159 X10*3/uL (160-400); Red Blood Count 4.33 X10*6/uL (4.60-5.80); White Blood Count 6.4 X10*3/uL (4.8-10.8)
[2025-04-05 12:02] LABS: Alanine Aminotransferase 56 U/L (0-40); Albumin Level 5.0 g/dL (3.5-5.0); Alkaline Phosphatase 54 U/L (39-117); Anion Gap 13 (12-20); Aspartate Amino Transferase 36 U/L (5-37); Blood Urea Nitrogen 22 mg/dL (9-16); Calcium 9.4 mg/dL (8.4-10.2); Carbon Dioxide 30 mmol/L (22-29); Chloride 103 mmol/L (96-108); Creatinine Clr Calc Pharmacy 69.4; Estimated Glomerular Filt Rate > 60; Lipase 30 U/L (8-78); Potassium 4.2 mmol/L (3.3-5.1); Sodium 142 mmol/L (135-145); Total Protein 7.8 g/dL (6.5-8.0)
[2025-04-05 13:57] VITALS: BP 117/61; PULSE 60; RESP 17; TEMP 36.7; O2SAT 97
[2025-04-05] MEDS: Sucralfate Oral Suspension 1 GM/10 ML ORAL.SUSP PO (14:00)
[2025-04-05 14:02] VITALS: BP 117/61; PULSE 60; RESP 17; TEMP 36.7; O2SAT 97
== END 2025-04-05 14:03 | disposition home or self-care (01) ==
PROVIDERS: Nurse Practitioner Family; Emergency Provider Emergency Medicine; PCP Registered Nurse
DX: K29.70 Gastritis, unspecified, without bleeding (principal); K21.9 Gastro-esophageal reflux disease without esophagitis; R10.9 Unspecified abdominal pain
CPT/HCPCS: 36415; 80053; 83690; 85025; 99282; 99283

== ENCOUNTER 2025-04-07 13:03 | Outpatient (AMB) | payer MEDICAID, SELFPAY ==
--- NOTE | 2025-04-07 13:05 | MHC.OFFVIS ---
Intake Visit Reasons: medication discussion Intake Note: Pt presents to the office today for med review PVR:0mL Urology meds: Amitriptyline,Tamsulosin,Testosterone BT: none Engineering Administrator Required: Yes Engineering Administrator Services: Engineering Administrator Present Accompanied by: Spouse Allergies SEAFOOD Allergy (Severe, Uncoded 04/05/25 11:21) ANAPHYLAXIS shellfish Allergy (Severe, Uncoded 04/05/25 11:21) Anaphylaxis HPI Comments Details: John is a male. He is a patient of Dr. Mar. He is seen for the following urologic conditions - hypogonadism - lower urinary tract symptoms - urinary retention Maldivian translation provided by qualified medical technologist chief Six-month follow-up Effective bladder emptying Lab work not complete Performing testosterone injection once every 2 weeks 1 cc Previously noted weakness of stream on discussion with nocturia and feelings of incomplete emptying Hypogonadism - on methadone Patient states everything is going well not having any complications or side effects which were reviewed the potential morbidity mortality of testosterone placement therapy reviewed all questions answered informed consent obtained. Injection day - Laboratory - Sunday Current therapy 1 cc every 2 weeks to his thigh testosterone cypionate Laboratories - 06/23 T 362, PSA 1.5, Hct 41.4, 06/24 T 159 H 42, 09/26 T 365, 05/27 T 700 P 2.4 Concurrent comorbidities - methadone use, nicotine Discussed laboratory results Lower urinary tract symptoms 06/26 episode of retention with UTI De La Fuente catheter Alfuzosin - blood pressure issues [facility] Medical History Constipation Anemia Hx of substance abuse Smoker History of Helicobacter pylori infection Spinal pain Hypogonadism Erectile dysfunction Hx: UTI (urinary tract infection) BPH (benign prostatic hyperplasia) Hx of hepatitis C GERD (gastroesophageal reflux disease) Anxiety and depression HTN (hypertension) Murmur Surgical History Hx of cystoscopy Family History Mother Diabetes Social History Unable to assess alcohol history related to: Unknown Alcohol intake: former Patient Tobacco Use Status: Current everyday Tobacco user Substance Use Type: Crack/Cocaine and Heroin Current occupational status: unemployed Review of Systems Const Denies chills and Denies fever(s) Card Reports no additional complaints and Denies syncope Resp Denies cough GI Denies abdominal pain and Denies heartburn Reports as per HPI and Denies change in libido Neuro Denies syncope Psych Denies change in libido Endo Denies change in libido Physical Exam Const General: cooperative, healthy appearing, comfortable and no acute distress Orientation/consciousness: patient oriented x3 HEENT Face and sinus: Yes normal facial exam Mouth: moist mucous membranes Neck Neck: Yes normal visual inspection, Yes full ROM and Yes trachea midline Chest Chest palpation & inspection: normal inspection of the chest Resp Effort & Inspection: normal respiratory effort, able to speak in complete sentences and no respiratory distress GI Inspection: Yes normal to inspection Back/Spine/Pelvis Cervical Spine: normal cervical lordosis Thoracic/Lumbar Spine: thoracic and lumbar spine normal to inspection Skin General skin exam: no rashes or lesions noted Neuro General: patient oriented x3, gait normal, tone normal and moves all extremities Extrem General: Yes normal to inspection and Yes capillary refill normal Results AMB Urinalysis, Automated UA Leukoctes 0 Ariadne/uL Last Edit by Jaimee Green MA on 04/07/25 17:10 UA Nitrite Negative Last Edit by Jaimee Green MA on 04/07/25 17:10 UA Urobilinogen 3.5 mg/dL Last Edit by Jaimee Green MA on 04/07/25 17:10 UA Protein 0 mg/dL Last Edit by Jaimee Green MA on 04/07/25 17:10 UA pH 5.5 Last Edit by Jaimee Green MA on 04/07/25 17:10 UA Blood 0 Justo/uL Last Edit by Jaimee Green MA on 04/07/25 17:10 UA Specific Poplar 1.015 Last Edit by Jaimee Green MA on 04/07/25 17:10 UA Ketone Negative Last Edit by Jaimee Green MA on 04/07/25 17:10 UA Bilirubin 0 mg/dL Last Edit by Jaimee Green MA on 04/07/25 17:10 UA Glucose 0 mg/dL Last Edit by Jaimee Green SC on 04/07/25 17:10 Results Reviewed Results Reviewed: Laboratory Last Values Urine pH (Auto) 5.5 04/07/25 16:53 Specific Poplar (Auto) 1.015 04/07/25 16:53 Urine Protein (Auto) 0 mg/dL 04/07/25 16:53 Glucose (UA)(Auto) 0 mg/dL 04/07/25 16:53 Urine Ketones (Auto) Negative 04/07/25 16:53 Urine Blood (Auto) 0 Justo/uL 04/07/25 16:53 Urine Nitrite (Auto) Negative 04/07/25 16:53 Urine Bilirubin (Auto) 0 mg/dL 04/07/25 16:53 Urine Urobilinogen (Auto) 3.5 mg/dL 04/07/25 16:53 Leukocyte Esterase (Auto) 0 Ariadne/uL 04/07/25 16:53 Assessment & Plan Assessment & Plan (1) BPH (benign prostatic hyperplasia): Code(s): N40.0 - Benign prostatic hyperplasia without lower urinary tract symptoms Category: Medical (2) Erectile dysfunction: Code(s): N52.9 - Male erectile dysfunction, unspecified Category: Medical (3) Hypogonadism in male: Code(s): E29.1 - Testicular hypofunction Category: Medical Plan Lab work three-month dose change to injectable Orders: Orders Testosterone, Total 3 Months E29.1 - Testicular hypofunction AMB Post Void Residual by ultrasound 04/07/25 E29.1 - Testicular hypofunction, N40.0 - Benign prostatic hyperplasia without lower urinary tract symptoms, N50.82 - Scrotal pain, N52.9 - Male erectile dysfunction, unspecified Prostate Specific Antigen 3 Months E29.1 - Testicular hypofunction Complete Blood Count no Diff 3 Months E29.1 - Testicular hypofunction AMB Urinalysis Automated 04/07/25 E29.1 - Testicular hypofunction, N40.0 - Benign prostatic hyperplasia without lower urinary tract symptoms, N50.82 - Scrotal pain, N52.9 - Male erectile dysfunction, unspecified Medications: Changed From tamsulosin 0.8 mg (2 x 0.4 mg) PO BEDTIME 90 days 180 caps 1RF E29.1 - Testicular hypofunction To tamsulosin 0.4 mg PO BEDTIME 90 caps 1RF 90 days E29.1 - Testicular hypofunction Refilled testosterone cypionate 200 mg IM Q2W 2 mL 5RF 28 days E29.1 - Testicular hypofunction Patient Instructions: This note is constructed using voice recognition software. While every effort has been made to ensure accuracy sports instructor errors may have been included. Imaging studies, laboratory and physical exam results were discussed and reviewed in detail. No major barriers to patient understanding were identified. An opportunity to ask questions regarding the treatment plan was provided. All questions were answered. The patient expressed understanding and agreement with the above treatment plan. The patient is aware they should contact our office by phone for worsening of their current condition or the appearance of new urologic symptoms. Compliance is encouraged with any medications and followup testing that is ordered. It is a privilege to participate in the urologic care of your patient. If you have any questions or concerns regarding treatment for the above conditions, or other urologic issues, please do not hesitate to contact me. The office telephone contact is [phone]. Sincerely, Dr Julian Lux MD, [facility] - Urology Compassionate Specialist Care for the Genitourinary System Coding Level of Care Code Est Pt Level 3 (38595) Complex EM visit Add On G2211 Diagnoses BPH (benign prostatic hyperplasia) N40.0 Erectile dysfunction N52.9 Hypogonadism in male E29.1
--- OUTSIDE RECORDS SUMMARY | 2025-04-07 13:41 | XMS_ITS | Clinical Summary ---
Author Organization [facility] Address [address] [place] [address] Phone Care Team Providers Care Traffic Engineering Technician Name Role Phone [facility] Primary Care Provider [phone] Medications polyethylene glycol (Golytely) 236-22.74-6.74 -5.86 gram [...] 2018 COVID-19 Vaccine (2023-2 5 season) 2024 Cholesterol Screening (Lipid Panel) 06/16/2024 Colorectal Cancer Screening: Colonoscopy 06/16/2024 HIV Screening 06/16/2024 Hepatitis C Screening 06/16/2024 Social Influencers of Health Screening 06/16/2024 Depression Screening 09/03/2024 Influenza Vaccine (#1) 2025 HIB Vaccines Aged Out No longer [...] Phone Billing Address Personal/Family Self 1970 [address] [facility] [address] [place] [address] MEDICAID - [place] Care Teams Traffic Engineering Technician Relationship Specialty Start Date End Date [facility] [address] [address] PCP - General 05/20/24
--- OUTSIDE RECORDS SUMMARY | 2025-04-07 13:41 | XMS_ITS | Encounter Summary ---
Author Organization [employer] Address [address] [place] [address] Care Team Providers Care Electric Meter Tester Name Role Phone Clarisse Haily FRETTED INSTRUMENTS INSPECTOR Primary Care Provider [phone] Encounter Details Date Type Department Care Team ([facility] st Contact Info) Description 04/05/2025 Orders Only GENERIC EXTERNAL DATA DEPARTMENT Provider, [...] Answer Date Recorded Patient Health Questionnaire-9 Score 21 03/30/2025 Patient Health Questionnaire-9 Score 21 03/30/2025 Last PHQ-9: Questionnaire Data Not on file 0 03/30/2025 Housing Stability Answer Date Recorded What is [...] Answer Date Recorded Patient Health Questionnaire-2 Score 4 03/30/2025 Internet Access Answer Date Recorded Internet Access [...] 04/24/2025 1:00 PM EDT Office Visit [facility] [address] [place] [address] Zachariah, Claudette [address] [place] [address] documented as of this encounter Goals Goal Patient Goal Type Associated Problems Recent Progress Patient-Stated? Author Patient will adhere to medication regimen General Mary Chauhan documented as of this encounter Procedures Procedure Name Priority Date/Time Associated Diagnosis Comments CBC WITH AUTO DIFFERENTIAL Routine 04/05/2025 11:30 AM EDT LIPASE Routine 04/05/2025 11:30 AM EDT COMPREHENSIVE METABOLIC PANEL Routine 04/05/2025 11:30 AM EDT documented in this encounter Results * Lipase (04/05/2025 11:30 AM EDT) Lipase 30 8 - 78 U/L [facility] 04/05/2025 11:3 0 AM EDT 04/05/2025 11:42 AM EDT us Generic External Data Provider LAB BLOOD ORDERAB LES Final Result [facility] [address] [place] [address] [phone] * (ABNORMAL) Comprehensive Metabolic Panel (04/05/2025 11:30 AM EDT) Sodium 142 135 - 145 mmol/L [facility] Potassium 4.2 3.3 - 5.1 mmol/L [facility] Chloride 103 96 - 108 mmol/L [facility] Carbon Dioxide 30(H) 22 - 29 mmol/L [facility] Anion Gap 13 12 - 20 [facility] Urea Nitrogen (BUN) 22(H) 9 - 16 mg/dL [facility] Creatinine, Serum 0.99 0.5 - 1.4 mg/dL [facility] Creatinine Clr Calc Pharmacy 69.4 [facility] Comment:eGFR (calculated fro m the MDRD study equation) and eCrCl(calculated from the Cockcroft-Gault equation) are based ondifferent parameters and may not yield comparable results.If eCrCl result is absurd, please check patient'sheight/weight. Estimated Glomerular Filt Rate >60 [facility] Comment:Chronic Kidney Disea se: Estimated GFR < 60 mL/min/1.85b2Eeofhx Kidney Disease: Estimated GFR < 15 mL/min/1.73m2 Glucose 97 60 - 115 mg/dL [facility] Calcium 9.4 8.4 - 10.2 mg/dL [facility] Bilirubin, Total 1.4(H) 0.0 - 1.0 mg/dL [facility] Aspartate Amino Transferase 36 5 - 37 U/L [facility] Alanine Aminotransferase 56(H) 0 - 40 U/L [facility] Total Protein 7.8 6.5 - 8.0 g/dL [facility] Albumin Level 5.0 3.5 - 5.0 g/dL [facility] Alkaline Phosphatase 54 39 - 117 U/L [facility] 04/05/2025 11:3 0 AM EDT 04/05/2025 11:42 AM EDT us Generic External Data Provider LAB BLOOD ORDERAB LES Final Result [facility] [address] [place] [address] [phone] * (ABNORMAL) CBC auto differential (04/05/2025 11:30 AM EDT) White Blood Count 6.4 4.8 - 10.8 X10*3/uL [facility] Red Blood Count 4.33(L) 4.60 - 5.80 X10*6/uL [facility] Hemoglobin 14.1 14.0 - 18.0 g/dl [facility] Hematocrit 39.8(L) 42.0 - 52.0 % [facility] Mean Corpuscular Volume 91.9 80.0 - 98.0 fL [facility] Mean Corpuscular Hemoglobin 32.6 27.0 - 33.0 pg [facility] Mean Corpuscular HGB Conc 35.4 31.0 - 36.0 g/dl [facility] Red Cell Distribution Width 12.1 11.0 - 16.0 % [facility] Platelet Count 159(L) 160 - 400 X10*3/uL [facility] Mean Platelet Volume 10.9 9.4 - 12.4 fL [facility] Neutrophils Percent Auto 75.3(H) 45 - 73 % [facility] Imm Gran Pct Auto 0.3 0.0 - 0.4 % [facility] Lymphocytes Percent Auto 18.3(L) 20 - 40 % [facility] Monocytes Percent Auto 4.5 2 - 11 % [facility] Eosinophils Percent Auto 1.1 0 - 4 % [facility] Basophils Percent Auto 0.5 0 - 2 % [facility] NRBC Pct Auto 0.0 0.0 - 0.2 /100WBC [facility] Neutrophils Absolute Auto 4.9 2.0 - 8.3 x10*3/uL [facility] Imm Gran Abs Auto 0.02 0.00 - 0.03 X10*3/uL [facility] Lymphocytes Absolute Auto 1.2 1.2 - 4.9 X10*3/uL [facility] Monocytes Absolute Auto 0.3 0.1 - 1.2 X10*3/uL [facility] Eosinophils Absolute Auto 0.1 0.0 - 0.4 X10*3/uL [facility] Basophils Absolute Auto 0.0 0.0 - 0.2 X10*3/uL [facility] NRBC Abs Auto 0.000 0.0 - 0.012 X10*3/uL [facility] 04/05/2025 11:3 0 AM EDT 04/05/2025 11:42 AM EDT us Generic External Data Provider LAB BLOOD ORDERAB LES Final Result Performing Organization Address City/State/[facility] Co de Phone Number [facility] [address] [place] [address] [phone] documented in this encounter Visit Diagnoses Not on filedocumented in this encounter Additional Health Concerns Assessment Noted Time PHQ-9 Depression Total Score: 21 025 3:59 PM EDT documented as of this encounter Care Teams Electric Meter Tester Relationship Specialty Start Date End Date Haily Robb FNP [address] [place] [phone] PCP - General Family Medicine 05/01/22 documented as of this encounter
== END 2025-04-07 13:40 | disposition home or self-care (01) ==
LOC: HO.HUSH 13:03
PROVIDERS: PCP Registered Nurse; Visit Provider Urology
DX: N40.0 Benign prostatic hyperplasia without lower urinary tract symptoms (principal); N52.9 Male erectile dysfunction, unspecified; E29.1 Testicular hypofunction
CPT/HCPCS: 99213

== ENCOUNTER → 2025-04-07 13:03 | Outpatient (BNVA) | payer MEDICAID, SELFPAY | PROVIDERS: PCP Registered Nurse; Visit Provider Urology | DX: E29.1 Testicular hypofunction (principal); N40.0 Benign prostatic hyperplasia without lower urinary tract symptoms; N52.9 Male erectile dysfunction, unspecified | CPT/HCPCS: 81003; 99212 ==

== ENCOUNTER 2025-04-10 11:42 | Outpatient (AMB) | payer MEDICAID, SELFPAY ==
--- OUTSIDE RECORDS SUMMARY | 2025-04-10 11:44 | XMS_ITS | Encounter Summary ---
Author Organization [facility] Address [address] [place] [address] Care Team Providers Care Architectural Modeler Name Role Phone Clarisse Haily SYSTEMS INTEGRATOR Primary Care Provider [phone] Encounter Details Date Type Department Care Team ([facility] st Contact Info) Description 04/05/2025 Orders Only [...] [facility] [address] [place] [address] Zachariah, Claudette [address] [place] [address] documented as of this encounter Goals Goal [...] EDT) Lipase 30 8 - 78 U/L [facility] 04/05/2025 11:3 0 AM EDT 04/05/2025 11:42 AM EDT us Generic External Data Provider LAB BLOOD ORDERAB LES Final Result [facility] [address] [place] [address] [phone] * (ABNORMAL) Comprehensive Metabolic Panel (04/05/2025 11:30 AM EDT) Sodium 142 135 - 145 mmol/L [facility] Potassium 4.2 3.3 - 5.1 mmol/L [facility] Chloride 103 96 - 108 mmol/L [facility] Carbon Dioxide 30(H) 22 - 29 mmol/L [facility] Anion Gap 13 12 - 20 [facility] Urea Nitrogen (BUN) 22(H) 9 - 16 mg/dL [facility] Creatinine, Serum 0.99 0.5 - 1.4 mg/dL [facility] Creatinine Clr Calc Pharmacy 69.4 [facility] Comment:eGFR (calculated fro m the MDRD study equation) and eCrCl(calculated from the Cockcroft-Gault equation) are based ondifferent parameters and may not yield comparable results.If eCrCl result is absurd, please check patient'sheight/weight. Estimated Glomerular Filt Rate >60 [facility] Comment:Chronic Kidney Disea se: Estimated GFR < 60 mL/min/1.44g6Jcysgl Kidney Disease: Estimated GFR < 15 mL/min/1.73m2 Glucose 97 60 - 115 mg/dL [facility] Calcium 9.4 8.4 - 10.2 mg/dL [facility] Bilirubin, Total 1.4(H) 0.0 - 1.0 mg/dL [facility] Aspartate Amino Transferase 36 5 - 37 U/L [facility] Alanine Aminotransferase 56(H) 0 - 40 U/L [facility] Total Protein 7.8 6.5 - 8.0 g/dL [facility] Albumin Level 5.0 3.5 - 5.0 g/dL [facility] Alkaline Phosphatase 54 39 - 117 U/L [facility] 04/05/2025 11:3 0 AM EDT 04/05/2025 11:42 AM EDT us Generic External Data Provider LAB BLOOD ORDERAB LES Final Result [facility] [address] [place] [address] [phone] * (ABNORMAL) CBC auto differential (04/05/2025 11:30 AM EDT) White Blood Count 6.4 4.8 - 10.8 X10*3/uL [facility] Red Blood Count 4.33(L) 4.60 - 5.80 X10*6/uL [facility] Hemoglobin 14.1 14.0 - 18.0 g/dl [facility] Hematocrit 39.8(L) 42.0 - 52.0 % [facility] Mean Corpuscular Volume 91.9 80.0 - 98.0 fL [facility] Mean Corpuscular Hemoglobin 32.6 27.0 - 33.0 pg [facility] Mean Corpuscular HGB Conc 35.4 31.0 - 36.0 g/dl [facility] Red Cell Distribution Width 12.1 11.0 - 16.0 % [facility] Platelet Count 159(L) 160 - 400 X10*3/uL [facility] Mean Platelet Volume 10.9 9.4 - 12.4 fL [facility] Neutrophils Percent Auto 75.3(H) 45 - 73 % [facility] Imm Gran Pct Auto 0.3 0.0 - 0.4 % [facility] Lymphocytes Percent Auto 18.3(L) 20 - 40 % [facility] Monocytes Percent Auto 4.5 2 - 11 % [facility] Eosinophils Percent Auto 1.1 0 - 4 % [facility] Basophils Percent Auto 0.5 0 - 2 % [facility] NRBC Pct Auto 0.0 0.0 - 0.2 /100WBC [facility] Neutrophils Absolute Auto 4.9 2.0 - 8.3 x10*3/uL [facility] Imm Gran Abs Auto 0.02 0.00 - 0.03 X10*3/uL [facility] Lymphocytes Absolute Auto 1.2 1.2 - 4.9 X10*3/uL [facility] Monocytes Absolute Auto 0.3 0.1 - 1.2 X10*3/uL [facility] Eosinophils Absolute Auto 0.1 0.0 - 0.4 X10*3/uL [facility] Basophils Absolute Auto 0.0 0.0 - 0.2 X10*3/uL [facility] NRBC Abs Auto 0.000 0.0 - 0.012 X10*3/uL [facility] 04/05/2025 11:3 0 AM EDT 04/05/2025 11:42 AM EDT us Generic External Data Provider LAB BLOOD ORDERAB LES Final Result Performing Organization Address City/State/[facility] Co de Phone Number [facility] [address] [place] [address] [phone] documented in this encounter Visit Diagnoses Not on filedocumented in this encounter Additional Health Concerns Assessment Noted Time PHQ-9 Depression Total Score: 21 025 3:59 PM EDT documented as of this encounter Care Teams Architectural Modeler Relationship Specialty Start Date End Date Haily Robb FNP [address] [place] [phone] PCP - General Family Medicine 05/01/22 documented as of this encounter
--- OUTSIDE RECORDS SUMMARY | 2025-04-10 11:44 | XMS_ITS | Clinical Summary ---
Author Organization [facility] Address [address] [place] [address] Phone Care Team Providers Care Hall Tender Name Role Phone [facility] Primary Care Provider Medications polyethylene glycol (Golytely) [...] Phone Billing Address Personal/Family Self 1970 [address] [facility] [address] [place] [address] MEDICAID - [place] Care Teams Hall Tender Relationship Specialty Start Date End Date [facility] [address] [phone] PCP - General 05/20/24
--- NOTE | 2025-04-10 11:46 | A.OFFVIS_ITS ---
Vital Signs 04/10/25 11:47 Height 5 ft 8 in Weight 128 lb BMI 19.5 BP 126/59 L Blood Pressure Location Lt brachial Position Sitting Pulse 59 Pulse Oximetry (%) 98 Oxygen Delivery Method Room Air Intake Visit Reasons: constipation Intake Note: Patient follow up for constipation. Patient cc: constipation is better with med, middle abdominal pain with bloating, acid reflux, and some swallowing problems on and off. Technical Services Coordinator Required: Yes Technical Services Coordinator Name: Jailene [facility] Accompanied by: Self / Same As Patient Allergies SEAFOOD Allergy (Severe, Uncoded 04/05/25 11:21) ANAPHYLAXIS shellfish Allergy (Severe, Uncoded 04/05/25 11:21) Anaphylaxis Medication List - Last Reconciled 04/10/25 by Erica De La Cruz CNP cholecalciferol (vitamin D3) (Vitamin D3) 50 mcg PO DAILY docusate sodium 100 mg PO BEDTIME PRN famotidine 20 mg PO DAILY PRN furosemide (Lasix) 20 mg PO DAILY ibuprofen 400 mg PO Q6H PRN melatonin 5 - 10 mg PO BEDTIME PRN methadone 29 mg PO DAILY needle (disp) 18 G (BD Regular [place]) As directed to draw testosterone needle (disp) 22 G As directed to inject testosterone pantoprazole 40 mg PO DAILY polyethylene glycol 3350 (Miralax) 17 grams PO DAILY 30 days sucralfate 1 g PO TID PRN syringe (disposable) (BD Luer-Vira Syringe) As directed 1 syringe [id number] 2 syringes total per month for T injection tamsulosin 0.4 mg PO BEDTIME 90 days testosterone cypionate 200 mg IM Q2W 28 days HPI HPI constipation: Details: Patient is a Macedonian speaking 54-year-old male with PMH of BPH, GERD, mental health issues, substance abuse disorder on methadone. Last visit with JONNY Hunter 05/18/2022 for abdominal pain. Patient states improvement in bowel movements from every 5 days to approximately every 2-3 days after 04/05/25 ER visit. The dissolvable medication prescribed at ER alleviates reflux partially but not completely. Additionally, patient reports noticing blood in stool on two occasions since the last visit. Abdominal discomfort persists but has worsened mildly over the past month (rated 4/10 severity). Compliance with medications and recommendations is suboptimal; Miralax (polyethylene glycol) rarely taken due to forgetfulness, and lactulose prescription from ER was reportedly not received from pharmacy. Hydration remains a challenge due to discomfort following water intake; patient consumes sips instead. No new fever, nausea, or vomiting reported. No hospitalizations since last visit, expect noted ER visit. [facility] Medical History Constipation Anemia Hx of substance abuse Smoker History of Helicobacter pylori infection Spinal pain Hypogonadism Erectile dysfunction Hx: UTI (urinary tract infection) BPH (benign prostatic hyperplasia) Hx of hepatitis C GERD (gastroesophageal reflux disease) Anxiety and depression HTN (hypertension) Murmur Surgical History Hx of cystoscopy Family History Mother Diabetes Social History Unable to assess alcohol history related to: Unknown Alcohol intake: former Patient Tobacco Use Status: Current everyday Tobacco user Substance Use Type: Crack/Cocaine and Heroin Current occupational status: unemployed Review of Systems Const Reports as per HPI ENT Reports as per HPI Card Reports as per HPI Resp Reports as per HPI GI Reports as per HPI Reports as per HPI Physical Exam Vital Signs: Last Vital Signs Pulse 59 04/10/25 11:47 BP 126/59 L 04/10/25 11:47 Pulse Ox 98 04/10/25 11:47 Oxygen Delivery Method Room Air 04/10/25 11:47 BMI result Body Mass Index 19.5 Const General: healthy appearing, no acute distress and well developed Nutritional Appearance: average body habitus Orientation/consciousness: patient oriented x3 HEENT Head: Yes normal to inspection, Yes normocephalic and Yes atraumatic Face and sinus: Yes normal facial exam Eyes General: appearance normal, both eyes and all related structures Neck Neck: Yes normal visual inspection Resp Effort & Inspection: normal respiratory effort, able to speak in complete sentences, no tracheal deviation and symmetric chest movement Auscultation: clear to auscultation bilaterally Cardio Jugular venous distension: no JVD Rate: regular rate Rhythm: regular rhythm Heart sounds: S1 normal heart sound present, S2 normal heart sound present, no gallops and no murmurs GI Inspection: Yes normal to inspection and No distended Palpation (GI): Soft to palpation, not firm, nontender and No hepatosplenomegaly present Auscultation: normal bowel sounds Rectal Exam - Male: Yes visual inspection normal, Yes Visual inspection abnormal, Yes normal sphincter tone, Yes Abnormal stool present, No External hemorrhoid(s) present, No Internal hemorrhoid(s) present, No Rectal prolapse, No fecal impaction, No hemorrhoids, No mass and No tenderness Neuro General: patient oriented x3 Gait exam (Neuro): Normal gait present Psych Appearance: grossly normal Mental Status: mental status grossly normal Speech and movement: Normal speech and movement present Affect: normal affect Attitude: cooperative Thought process: Normal thought process present Thought content: Normal thought content present Insight: Good insight present (Psych) Judgement: Good judgement present (Psych) Results Reviewed Results Reviewed: Date of Service: 03/01/25 Procedure(s): CT abdomen pelvis w IV con Accession Number(s): [id number] cc: Germania Wilburn MD; [facility]~ Report Number: [id number]: Total DLP = 321.00 mGy-cm CLINICAL HISTORY: LLQ pain CT abdomen and pelvis with contrast Comparison: CT abdomen and pelvis 12/01/2024 Findings: No acute findings within visualized lung bases. Liver, spleen, adrenal glands, pancreas, and kidneys are unremarkable. Gallbladder is decompressed. Minimal intra and extrahepatic ductal prominence. No free air or free fluid. Unremarkable urinary bladder. Moderately enlarged prostate gland. Calcified but nonaneurysmal abdominal aorta and iliofemoral vessels. Stomach is unremarkable. Normal caliber small bowel. No small bowel obstruction. Moderate constipation. No acute appendicitis. No free air or free fluid. No pathologically enlarged lymph nodes. No acute osseous abnormality. No lytic or sclerotic osseous lesions. Impression: 1. No acute findings identified in the abdomen or pelvis. 2. Moderate bordering on severe constipation, slightly increased when compared to prior exam. 3. Enlarged prostate. Correlation with PSA is recommended. 4. Additional findings as above. Assessment & Plan Assessment & Plan (1) Chronic constipation: Code(s): K59.09 - Other constipation Category: Medical Plan: Stable improvement in bowel regularity (from 5 days to 2-3 days), but suboptimal management owing to inconsistent Miralax use and lack of access to lactulose. Symptoms of abdominal discomfort persist, rated 4/10 severity. New onset blood in stool necessitates expedited diagnostic evaluation. CT (03/01/25) showed mod-severe constipation, no other abd pathology. Additional Testing:Colonoscopy (current appointment June 09; request to expedite due to rectal bleeding) Medications: -Polyethylene glycol (Miralax) 17g oral daily. Reinforce need for consistent daily usage. -Stool softener at bedtime PRN for harder stools. Lifestyle Recommendations: -Increase fiber intake as per handout provided (practical options for affordability also included). -Gradual hydration as tolerated, increase fluid intake in small sips to avoid discomfort. Coordination of Care:Expedite colonoscopy scheduling through GI hospital clinic assistant due to concerning symptom of blood in stool. (2) GERD (gastroesophageal reflux disease): Code(s): K21.9 - Gastro-esophageal reflux disease without esophagitis Category: Medical Qualifiers: Esophagitis presence: esophagitis presence not specified Qualified Code(s): K21.9 - Gastro-esophageal reflux disease without esophagitis Plan: Some improvement with dissolvable sucralfate; however, ongoing reflux symptoms persist with partial response to pantoprazole therapy. Medications: -Sucralfate oral TID, dissolved in water; ensure 2-hour interval between other oral medications. -Pantoprazole 40mg oral daily confirmed by patient, despite discrepancy in medication record. Lifestyle Recommendations:Continue avoidance of dietary reflux triggers. Follow-Up Plan:Monitor reflux for improvement after constipation resolves. Follow-up post-procedure for adjustment of GERD management if required. Plan Follow-up after endoscopy or sooner as needed Time: I spent a total of 45 minutes on the date of encounter which includes: Preparing to see the patient (reviewed previous documentation, test results and medical history) Performing a medically appropriate exam and/or evaluation Ordering medications, tests, and procedures Documenting clinical information in the health record Medications: New polyethylene glycol 3350 (Miralax) per colonoscopy prep instructions 238 grams PO ONCE 238 grams 0RF bisacodyl (Dulcolax (bisacodyl)) Take four tablets pre colonoscopy instructions 20 mg (4 x 5 mg) PO ONCE 4 tabs 0RF 1 day Discontinued lactulose Discontinued Reason: Doctor's Order 10 grams (15 mL) PO DAILY 3 days PRN 50 mL 0RF laxative effect Coding Level of Care Code Established Pt Est Pt Level 5 (68196) Patient Type Established Diagnoses Chronic constipation K59.09 Gastroesophageal reflux disease, unspecified whether esophagitis present K21.9 Esophagitis presence: esophagitis presence not specified
[2025-04-10 11:47] VITALS: BP 126/59; PULSE 59; O2SAT 98; BMI 19.5
== END 2025-04-10 12:48 | disposition home or self-care (01) ==
LOC: HO.HGI 11:43
PROVIDERS: PCP Registered Nurse; Visit Provider Nurse Practitioner Family
DX: K59.09 Other constipation (principal); K21.9 Gastro-esophageal reflux disease without esophagitis
CPT/HCPCS: 99215

== ENCOUNTER → 2025-04-10 11:42 | Outpatient (BNVA) | payer MEDICAID, SELFPAY | PROVIDERS: PCP Registered Nurse; Visit Provider Nurse Practitioner Family | DX: K21.9 Gastro-esophageal reflux disease without esophagitis (principal); K59.09 Other constipation | CPT/HCPCS: 99212 ==

== ENCOUNTER 2025-04-20 09:54 | Outpatient (AMB) | payer MEDICAID, SELFPAY ==
--- NOTE | 2025-04-20 10:06 | MHC.OFFVIS ---
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 Patient was referred by PCP for left knee OA. Per PCP note complaints of bilateral knee pain that becomes worse with ambulation and at night. He reported no relief with Tylenol. At today's visit he reports that the pain is in the right and left joshi and calf that radiates down to the ankle. Patient reports that he has a burning sensation no numbness or tingling. Plant Cytologist Required: Yes Plant Cytologist Services: Plant Cytologist Present Plant Cytologist Name: [id number] Allergies SEAFOOD Allergy (Severe, Uncoded 04/05/25 11:21) ANAPHYLAXIS shellfish Allergy (Severe, Uncoded 04/05/25 11:21) Anaphylaxis Medication List - Last Reconciled 04/20/25 by Tobias Dolan PA-C bisacodyl (Dulcolax (bisacodyl)) 20 mg (4 x 5 mg) PO ONCE 1 day cholecalciferol (vitamin D3) (Vitamin D3) 50 mcg PO DAILY docusate sodium 100 mg PO BEDTIME PRN famotidine 20 mg PO DAILY PRN furosemide (Lasix) 20 mg PO DAILY ibuprofen 400 mg PO Q6H PRN melatonin 5 - 10 mg PO BEDTIME PRN methadone 29 mg PO DAILY needle (disp) 18 G (BD Regular Bevel [place]) As directed to draw testosterone needle (disp) 22 G As directed to inject testosterone pantoprazole 40 mg PO DAILY polyethylene glycol 3350 (Miralax) 238 grams PO ONCE polyethylene glycol 3350 (Miralax) 17 grams PO DAILY 30 days sucralfate 1 g PO TID PRN syringe (disposable) (BD Luer-Vira Syringe) As directed 1 syringe [id number] 2 syringes total per month for T injection tamsulosin 0.4 mg PO BEDTIME 90 days testosterone cypionate 200 mg IM Q2W 28 days HPI HPI 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 He denies injury. Denies knee pain. He states he has burning that goes down both shins but does not recall any injury. He states he does have low back pain for which she had an MRI for. I do not see an MRI of the spine in his chart only a C-spine x-ray. [facility] Medical History Constipation Anemia Hx of substance abuse Smoker History of Helicobacter pylori infection Spinal pain Hypogonadism Erectile dysfunction Hx: UTI (urinary tract infection) BPH (benign prostatic hyperplasia) Hx of hepatitis C GERD (gastroesophageal reflux disease) Anxiety and depression HTN (hypertension) Murmur Surgical History Hx of cystoscopy Family History Mother Diabetes Social History Unable to assess alcohol history related to: Unknown Alcohol intake: former Patient Tobacco Use Status: Current everyday Tobacco user Substance Use Type: Crack/Cocaine and Heroin Current occupational status: unemployed Review of Systems Const All systems reviewed & are unremarkable except as noted in HPI and below Physical Exam Vital Signs: BMI result Body Mass Index 19.9 Const General: cooperative and no acute distress Orientation/consciousness: patient oriented x3 Resp Effort & Inspection: normal respiratory effort and able to speak in complete sentences Cardio Peripheral pulses: Peripheral pulses 2+ throughout Neuro General: patient oriented x3 Extrem Other: On exam bilateral knees are normal to inspection he does have some discoloration over the anterior medial aspect of the left joshi and also some discoloration on the anterior portion of the right joshi. There is no swelling or ecchymosis. He has full sensation pulses are intact and he has good strength bilaterally. Assessment & Plan Assessment & Plan (1) Numbness of lower extremity: Code(s): R20.0 - Anesthesia of skin Category: Medical Plan: I explained to the patient the etiology of his burning sensation is not quite clear from my perspective however I can refer him to pain management to see if they can do further testing to rule out his condition. I do not feel as though there is any acute vascular compromise or nerve injury requiring immediate attention. This appears to be a chronic condition. Patient is content with the plan and will follow up as needed. Orders: Referrals Pain Management Referral R20.0 - Anesthesia of skin Coding Level of Care Code New Pt Level 3 (31060) Complex EM visit Add On G2211 Diagnoses Numbness of lower extremity R20.0
[2025-04-20 10:13] VITALS: BMI 19.9
--- OUTSIDE RECORDS SUMMARY | 2025-04-20 10:46 | XMS_ITS | Encounter Summary ---
Author Organization [employer] Address [address] [facility] [address] [place] [address] Care Team Providers Care Controls Designer Name Role Phone [facility] Primary Care Provider [phone] Reason for Visit * Reason Comments Med Refill Encounter Details Date Type Department Care Team (Late st Contact Info) Description 07/08/2024 Refill [facility] [address] [place], [place] [id number] [facility] [address] [place] [address] Mixed anxiety and depressive disorder Social History [...] [facility] [address] [place] [address] Zachariah, Claudette [address] [place] [address] documented as of this encounter Goals Goal [...] documented as of this encounter Care Teams Controls Designer Relationship Specialty Start Date End Date Haily Robb FNP [address] [place] [address] PCP - General Family Medicine 05/01/22 documented as of this encounter
--- OUTSIDE RECORDS SUMMARY | 2025-04-20 10:46 | XMS_ITS | Clinical Summary ---
Author Organization [facility] Address [address] [place] [address] Phone Care Team Providers Care Marketing Database Consultant Name Role Phone [facility] Primary Care Provider [phone] Medications polyethylene glycol (Golytely) 236-22.74-6.74 -5.86 gram [...] Self 1970 [address] [facility] [address] [place] [address] MEDICAID - [place] Care Teams Marketing Database Consultant Relationship Specialty Start Date End Date [facility] [address] [address] PCP - General 05/20/24
== END 2025-04-20 11:28 | disposition home or self-care (01) ==
LOC: HO.HOS 09:55
PROVIDERS: PCP Registered Nurse; Visit Provider Physician Assistant
DX: R20.0 Anesthesia of skin (principal)
CPT/HCPCS: 99203

== ENCOUNTER → 2025-04-20 09:54 | Outpatient (BNVA) | payer MEDICAID, SELFPAY | PROVIDERS: PCP Registered Nurse; Visit Provider Physician Assistant | DX: R20.0 Anesthesia of skin (principal) | CPT/HCPCS: 99212 ==

== ENCOUNTER 2025-04-29 09:37 | Emergency (ER) | payer MEDICAID, SELFPAY ==
--- OUTSIDE RECORDS SUMMARY | 2025-04-27 13:40 | XMS_ITS | Encounter Summary ---
Author Organization [employer] Address [address] [address] [place] [address] Care Team Providers Care Activity Therapist Name Role Phone Clarisse Haily IRON LAUNDER OPERATOR Primary Care Provider [phone] Encounter Details Date Type Department Care Team (Latest Contact Info) Description 04/27/2025 1:40 PM EDT Office Visit [facility] [address] [place] [address] Sanam Noland MD [address] [place] [address] Chronic bilateral low back pain without sciatica (Primary Dx); Chronic nonintractable headache, unspecified headache type Social History Tobacco Use Types Packs/Day Years [...] Answer Date Recorded Patient Health Questionnaire-9 Score 03/30/2025 Patient Health Questionnaire-9 Score 03/30/2025 Last PHQ-9: Questionnaire Data Not on [...] Sign Reading Time Taken Comments Blood Pressure 100/60 04/27/2025 1:39 PM EDT Pulse 64 04/27/2025 1:39 PM EDT Temperature 36.3 C (97.4 F) 04/27/2025 1:39 PM EDT Respiratory Rate 16 04/27/2025 1:39 PM EDT Oxygen Saturation - - Inhaled Oxygen Concentration - - Weight 61.9 kg (136 lb 6.4 oz) 04/27/2025 1:39 P M EDT Height 172.7 cm (5' 8 ) 04/27/2025 1:39 PM EDT Body Mass Index 20.74 04/27/2025 1:39 PM EDT documented in this encounter Progress Notes * Sanam Peacock MD - 04/27/2025 1:40 PM EDT /SUBJECTIVE: John Ro is a 55 y.o. year old adult who presents for acute visit . Acute Concerns:/ Patient reports he has being having persistent headaches, he was here for same reason 05/22/2025 and reports medication prescribed did help him but for short time and then headache started again he tells me he has being having lower back pain and he feels this back pain, tension, climb up and causes him a headache denies light/noise susceptibility, denies nausea/vomiting, denies seeing lights Patient reports persistent lower back pain, pain is bilateral, does not radiate, reports he feels his legs are heavy, he already finish PT and was refereed to specialist, he is waiting for his appointment Social History Social History Narrative Tobacco Use: Former, quit 2023 ETOH: None Marijuana Use: None Other substance use: On methadone maintenance therapy. No hx of IVDU Current living environment: Lives with nephew, spends the day with wifee Children: 3 kids Employment/education: Sexually active: yes Partners are: control: Problem List[1] Helicobacter pylori gastritis Positive TB test Hyperlipidemia Methadone maintenance therapy patient (CMS/HCC) Mixed anxiety and depressive disorder Renal cyst, left Submandibular lymphadenopathy Vitamin D deficiency Tobacco use Neck pain on left side Hypogonadism in male Scrotal pain Moderate somatic symptom disorder Opioid dependence in remission ([facility]/HCC) Odynophagia Chronic pruritus Dental calculus Generalized gingival recession, moderate Partial edentulism Epigastric pain Shortness of breath Nasal congestion Pain in both lower extremities Lumbar radiculopathy Urinary retention Bilateral lower extremity edema Normal oral exam Interstitial lung disease (CMS/HCC) Lung nodules LLQ pain Seasonal allergies Dizziness Tinnitus of both ears Decreased hearing of both ears Cellulitis of lower extremity Sore throat Acute midline low back pain without sciatica Stasis dermatitis Cellulitis of both feet Drug-induced constipation Benign prostatic hyperplasia with urinary frequency Chronic bilateral low back pain without sciatica Chronic nonintractable headache Family History[2] Review of Systems Constitutional: Negative. HENT: Negative. Respiratory: Negative. Cardiovascular: Negative. Musculoskeletal: Positive for back pain and myalgias. Neurological: Positive for light-headedness and headaches. Negative for dizziness, tremors, seizures, syncope, facial asymmetry, speech difficulty, weakness and numbness. OBJECTIVE: Vitals: 04/27/25 1339 BP: 100/60 BP Location: Left arm Patient Position: Sitting BP Cuff Size: Adult Pulse: 64 Resp: 16 Temp: 97.4 ??F (36.3 ??C) TempSrc: Oral Weight: 136 lb 6.4 oz (61.9 kg) Height: 5' 8 (1.727 m) Physical Exam Constitutional: Appearance: Normal appearance. Cardiovascular: Rate and Rhythm: Normal rate and regular rhythm. Pulmonary: Effort: Pulmonary effort is normal. Breath sounds: Normal breath sounds. Abdominal: General: Abdomen is flat. Palpations: Abdomen is soft. Musculoskeletal: Lumbar back: Spasms and tenderness present. Right lower leg: No edema. Left lower leg: No edema. Neurological: General: No focal deficit present. Mental Status: He is alert and oriented to person, place, and time. Mental status is at baseline. Follow Up: No follow-ups on file. Medications Ordered Prior to Encounter[3] Problem List Items Addressed This Visit Chronic bilateral low back pain without sciatica - Primary Apply heat on affected area I will prescribe today acetaminophen and flexeril, he is aware of side effect somnolence, he knows he can not drive or do activities that requires his attention while on this medication Do not miss appointment with specialist Relevant Medications cyclobenzaprine (Flexeril) 10 MG tablet acetaminophen (Tylenol Extra Strength) 500 MG tablet Chronic nonintractable headache I advise to avoid triggers like red wine, alcohol, chocolate, cheese, strong perfumes, avoid dehydration I will go up on sumatriptan to 50mg PRN I will go up on amitriptyline to 25mg at bed time CT of head results reviewed with patient Relevant Medications cyclobenzaprine (Flexeril) 10 MG tablet acetaminophen (Tylenol Extra Strength) 500 MG tablet SUMAtriptan (Imitrex) 50 MG tablet amitriptyline (Elavil) 25 MG tablet [1] Patient Active Problem List Diagnosis Helicobacter pylori gastritis Positive TB test Hyperlipidemia Methadone maintenance therapy patient ([facility]) Mixed anxiety and depressive disorder Renal cyst, left Submandibular lymphadenopathy Vitamin D deficiency Tobacco use Neck pain on left side Hypogonadism in male Scrotal pain Moderate somatic symptom disorder Opioid dependence in remission ([facility]) Odynophagia Chronic pruritus Dental calculus Generalized gingival recession, moderate Partial edentulism Epigastric pain Shortness of breath Nasal congestion Pain in both lower extremities Lumbar radiculopathy Urinary retention Bilateral lower extremity edema Normal oral exam Interstitial lung disease (CMS/HCC) Lung nodules LLQ pain Seasonal allergies Dizziness Tinnitus of both ears Decreased hearing of both ears Cellulitis of lower extremity Sore throat Acute midline low back pain without sciatica Stasis dermatitis Cellulitis of both feet Drug-induced constipation Benign prostatic hyperplasia with urinary frequency Chronic bilateral low back pain without sciatica Chronic nonintractable headache [2] Family History Problem Relation Name Age of Onset Diabetes Mother Heart disease Mother Other (diabetic retinopathy, cataract) Mother Colon cancer Neg Hx Prostate cancer Neg Hx [3] Current Outpatient Medications on File Prior to Visit Medication Sig Dispense Refill acetaminophen (Tylenol 8 Hour) 650 MG ER tablet Take 1 tablet (650 mg) by mouth every 8 (eight) hours if needed for mild pain. Do not crush, chew, or split. 60 tablet 2 alfuzosin ER (Uroxatral) 10 MG 24 hr tablet Take 1 tablet by mouth at bedtime. BD Hypodermic Needle 18G X 1 misc USE DIRECTED (Patient not taking: Reported on 10/22/2024) BD Plastipak Syringe 3 ML misc USE DIRECTED (Patient not taking: Reported on 10/22/2024) benzocaine-menthol (Chloraseptic) 6-10 MG lozenge Dissolve 1 lozenge in the mouth every 2 (two) hours if needed for sore throat. 100 lozenge 0 Blood Pressure kit Check blood pressure daily 1 kit 0 cetirizine (ZyrTEC) 10 MG tablet TAKE 1 TABLET BY MOUTH EVERY DAY NEEDED FOR ALLERGIES 90 tablet0 cholecalciferol (D3 Super Strength) 50 MCG (2000 UT) capsule TAKE 1 CAPSULE BY MOUTH EVERY MORNING 90 capsule 3 cromolyn (Nasachrom) 5.2 MG/ACT nasal spray Administer 1 spray into each nostril 4 times daily. 26 mL 12 Diclofenac Sodium (Voltaren) 1 % gel Use topical BID 100 g 3 Diclofenac Sodium 1 % gel Apply 2 g topically if needed in the morning, at noon, in the evening, and at bedtime (pain). 150 g 3 docusate sodium (Colace) 100 MG capsule Take 1 capsule (100 mg) by mouth 2 times daily. 180 capsule3 DULoxetine (Cymbalta) [address] capsule Take 1 capsule (30 mg) by mouth Once per day. Do not crush or chew. 30 capsule 2 fluticasone (Flonase) 50 MCG/ACT nasal spray Administer 2 sprays into each nostril Once per day. Shake gently. Before first use, prime pump. After use, clean tip and replace cap.INSTILL 2 SPRAYS IN EACH NOSTRIL ONCE DAILY 48 g 3 fluticasone (Flonase) 50 MCG/ACT nasal spray Use 1 spray each nostril daily. Shake gently. Before first use, prime pump. After use, clean tip and replace cap. 16 g 2 furosemide (Lasix) 20 MG tablet TAKE 2 TABLETS BY MOUTH EVERY DAY 60 tablet 2 hydrOXYzine HCl (Atarax) 25 MG tablet TAKE 1 TABLET BY MOUTH EVERY 6 HOURS NEEDED FOR ANXIETY ORFOR ITCHING 120 tablet 0 Ketotifen Fumarate 0.035 % solution Administer 1 drop into affected eye(s) if needed in the morningand at bedtime (allergies). 10 mL 3 lidocaine (Lidoderm) 5 % patch Apply 1-2 patches topically if needed each day for mild pain (pain).Remove & discard patch within 12 hours or as directed by MD. 60 patch 1 loratadine (Claritin) 10 MG tablet Take 1 tablet (10 mg) by mouth Once per day. 30 tablet 11 Lotemax 0.5 % gel INSTILL 1 DROP INTO RIGHT EYE 4 TIMES A DAY melatonin 5 MG tablet TAKE 1 TO 2 TABLETS BY MOUTH EVERY DAY AT BEDTIME NEEDED 60 tablet 2 methadone (Dolophine) 10 MG tablet Take 29 mg by mouth Once per day. naproxen (Naprosyn) 500 MG tablet Take 1 tablet (500 mg) by mouth if needed in the morning and at bedtime for mild pain. 40 tablet 1 omeprazole (PriLOSEC) [address] capsule Take 1 capsule (40 mg) by mouth before breakfast and before evening meal. 60 capsule 3 polycarbophil (Fibercon) 625 MG tablet Take 1 tablet (625 mg) by mouth 2 times daily. 180 tablet 3 polyethylene glycol, PEG, 3350 (MiraLax) 17 GM/SCOOP powder Take 17 g by mouth if needed each day (constipation). 527 g 2 QUEtiapine (SEROquel) 25 MG tablet Take 25 mg by mouth if needed at bedtime. Restasis 0.05 % ophthalmic emulsion Administer 1 drop into both eyes 2 times daily. rosuvastatin (Crestor) 10 MG tablet TAKE 1 TABLET BY MOUTH EVERY MORNING 90 tablet 3 simethicone 125 MG capsule Take 1 capsule (125 mg) by mouth if needed in the morning, at noon, in the evening, and at bedtime (abd pain/gas). 30 capsule 1 Spacer/Aero-Holding Chambers (Pro Comfort Spacer Adult) misc Use with albuterol inhaler 1 each 0 sucralfate (Carafate) 1 GM/10ML suspension Take 10 mL (1 g) by mouth every 6 (six) hours. 473 mL 0 tamsulosin (Flomax) 0.4 MG 24 hr capsule Take 0.8 mg by mouth Once per day. testosterone cypionate (Depo-Testosterone) 200 MG/ML injection Inject 0.5 mL into the shoulder, thigh, or buttocks once a week. triamcinolone (Kenalog) 0.1 % ointment APPLY TOPICALLY TWICE DAILY 30 g 1 Ventolin HFA 108 (90 Base) MCG/ACT inhaler INHALE 2 PUFFS BY MOUTH EVERY 4 HOURS NEEDED FOR WHEEZING OR SHORTNESS OF BREATH 18 g 11 [DISCONTINUED] amitriptyline (Elavil) 10 MG tablet Take 1 tablet (10 mg) by mouth at bedtime. 30 tablet 0 [DISCONTINUED] ARIPiprazole (Abilify) 10 MG tablet Take 1 tablet by mouth at bedtime. (Patient not taking: Reported on 10/22/2024) [DISCONTINUED] meloxicam (Mobic) 7.5 MG tablet Take 1 tablet (7.5 mg) by mouth 2 times daily. 60 tablet 11 [DISCONTINUED] mirtazapine (Remeron) 15 MG tablet Take 15 mg by mouth at bedtime. [DISCONTINUED] SUMAtriptan (Imitrex) 25 MG tablet Take 1 tablet (25 mg) by mouth 1 (one) time if needed for migraine for up to 9 doses. May repeat dose once in 2 hours if no relief. Do not exceed 2 doses in 24 hours. 9 tablet 0 [DISCONTINUED] SUMAtriptan (Imitrex) 25 MG tablet Take 1 tablet (25 mg) by mouth 1 (one) time if needed for migraine for up to 9 doses. May repeat dose once in 2 hours if no relief. Do not exceed 2 doses in 24 hours. 9 tablet 0 No current facility-administered medications on file prior to visit. documented in this encounter Miscellaneous Notes * Assessment & Plan Note - Sanam Peacock MD - 04/27/2025 2:15 PM EDT Associated Problem(s): Chronic nonintractable headache I advise to avoid triggers like red wine, alcohol, chocolate, cheese, strong perfumes, avoid dehydration I will go up on sumatriptan to 50mg PRN I will go up on amitriptyline to 25mg at bed time CT of head results reviewed with patient * Assessment & Plan Note - Sanam Peacock MD - 04/27/2025 2:14 PM EDT Associated Problem(s): Chronic bilateral low back pain without sciatica Apply heat on affected area I will prescribe today acetaminophen and flexeril, he is aware of side effect somnolence, he knows he can not drive or do activities that requires his attention while on this medication Do not miss appointment with specialist documented in this encounter Plan of Treatment Not on file documented as of this encounter Goals Goal Patient Goal Type Associated Problems Recent Progress Patient-Stated? Author Patient will adhere to medication regimen General No Mary Moreland documented as of this encounter Visit Diagnoses Diagnosis Chronic bilateral low back pain without sciatica- Primary Chronic nonintractable headache, unspecified headache type documented in this encounter Additional Health Concerns Assessment Noted Time PHQ-9 Depression Total Score: 21 03/30/ 025 3:59 PM EDT documented as of this encounter Care Teams Activity Therapist Relationship Specialty Start Date End Date Haily Robb FNP [address] [place] [id number] PCP - General Family Medicine 05/01/22 documented as of this encounter
--- NOTE | 2025-04-29 | ECG_ITS ---
Test Reason : cp Blood Pressure : */* mmHG Vent. Rate : 61 BPM Atrial Rate : 61 BPM P-R Int : 140 ms QRS Dur : 76 ms QT Int : 362 ms P-R-T Axes : 46 40 18 degrees QTcB Int : 364 ms Normal sinus rhythm Normal ECG When compared with ECG of 15-Feb-2025 09:28, No significant changes seen Referred By: Generic ED Physician Electronically Signed By: JAILYN MORE
--- NOTE | ~2025-04-29 | CT_ITS ---
EXAMINATION: CT HEAD WITHOUT CONTRAST CLINICAL INFORMATION: headache COMPARISON: February 15, 2025 TECHNIQUE: Contiguous axial imaging was performed from the skull base to vertex without intravenous administration of contrast. This CT examination was performed using dose optimization techniques as appropriate, variously including the following: *Automated exposure control *Adjustment of mA and/or kV according to patient size (this includes techniques or standardized protocols for targeted exams where dose is matched to indication/reason for exam; i.e. extremities or head) *Use of iterative reconstruction technique DLP: 690 mGy-cm FINDINGS: No acute intracranial hemorrhage, mass effect, midline shift, hydrocephalus or herniation. Freeman-white matter differentiation is normal. Posterior cranial fossa contents demonstrated no gross hemorrhage or mass effect. No acute fracture in the bony calvarium. No air-fluid levels in the paranasal sinuses. Tympanic cavities and mastoid cells are aerated. The right internal jugular bulb is at the level of the mesotympanum. The cerebellar tonsils are in normal position. CT/CT head/brain wo IV con IMPRESSION: No acute intracranial hemorrhage. Probable high riding right internal jugular bulb. Electronically signed by: Darryl Zaidi MD 04/29/2025 12:12 PM EDT
--- NOTE | ~2025-04-29 | XR_ITS ---
EXAMINATION: XR CHEST CLINICAL INFORMATION: chest pain COMPARISON: February 15, 2025 TECHNIQUE: Frontal view of the chest was obtained. FINDINGS: Mild coarse interstitial markings are noted. Lungs are clear. Heart size is normal. Hilar mediastinal structures are unremarkable. No pleural effusion is evident. XR/XR chest 1V IMPRESSION: Nonspecific mild coarse interstitial markings could represent bronchitis. Electronically signed by: Finesse Witt MD 04/29/2025 11:02 AM EDT
[2025-04-29 09:41] VITALS: BP 104/54; PULSE 85; RESP 16; TEMP 36.8; O2SAT 96
[2025-04-29 10:03] LABS: MANUAL DIFF FLAG NO
[2025-04-29 10:05] LABS: Hematocrit 36.1 % (42.0-52.0); Hemoglobin 12.3 g/dl (14.0-18.0); Imm Gran Abs Auto 0.01 X10*3/uL (0.00-0.03); Imm Gran Pct Auto 0.2 % (0.0-0.4); Lymphocytes Absolute Auto 1.1 X10*3/uL (1.2-4.9); Mean Corpuscular HGB Conc 34.1 g/dl (31.0-36.0); Mean Corpuscular Hemoglobin 32.3 pg (27.0-33.0); Mean Corpuscular Volume 94.8 fL (80.0-98.0); NRBC Abs Auto 0.000 X10*3/uL (0.0-0.012); NRBC Pct Auto 0.0 /100WBC (0.0-0.2); Platelet Count 164 X10*3/uL (160-400); Red Blood Count 3.81 X10*6/uL (4.60-5.80); White Blood Count 5.9 X10*3/uL (4.8-10.8)
[2025-04-29 10:20] LABS: Anion Gap 11 (12-20); Blood Urea Nitrogen 9 mg/dL (9-16); Calcium 9.3 mg/dL (8.4-10.2); Carbon Dioxide 33 mmol/L (22-29); Chloride 102 mmol/L (96-108); Creatinine Clr Calc Pharmacy 75.5; Estimated Glomerular Filt Rate > 60; Potassium 4.5 mmol/L (3.3-5.1); Sodium 141 mmol/L (135-145)
[2025-04-29 10:28] VITALS: BP 96/60; PULSE 68; RESP 18; TEMP 36.8; O2SAT 98
--- NOTE | 2025-04-29 10:28 | PC.NURSE ---
Patient stated I forgot to tell the triage nurse that I have chest pain . EKG & additional labs ordered. Awaiting ED provider evaluation. Placed on evs manager. Care ongoing by this RN.
--- OUTSIDE RECORDS SUMMARY | 2025-04-29 11:16 | XMS_ITS | Encounter Summary ---
Author Organization [employer] Address [address] [facility] 7t [place] [address] Care Team Providers Care Drilling Machine Operator Name Role Phone [facility] Primary Care Provider [phone] Reason for Visit * Reason Comments Med Refill Encounter Details Date Type Department Care Team (Late st Contact Info) Description 07/08/2024 Refill [facility] [address] [place], [place] [phone] [facility] [address] [place] [address] Mixed anxiety and depressive disorder Social History [...] as of this encounter Plan of Treatment Not on [...] documented as of this encounter Care Teams Drilling Machine Operator Relationship Specialty Start Date End Date Haily Robb FNP [address] [place] [id number] PCP - General Family Medicine 05/01/22 documented as of this encounter
--- OUTSIDE RECORDS SUMMARY | 2025-04-29 11:17 | XMS_ITS | Encounter Summary ---
Author Organization [employer] Address [address] [facility] 7t [place] [address] Care Team Providers Care Dental Instrument Maker Name Role Phone [facility] Primary Care Provider [phone] Reason for Visit * Reason Comments Med Refill Encounter Details Date Type Department Care Team (Late st Contact Info) Description 01/01/2023 Refill [facility] [address] [place], [place] [phone] [facility] [address] [place] [address] Chronic sinusitis, unspecified location Social History Tobacco [...] on file documented as of this encounter Visit Diagnoses Diagnosis Chronic sinusitis, unspecified location documented in this encounter Additional Health Concerns Assessment Noted Time PHQ-9 Depression Total Score: 0 11/03/19 23 10:32 AM EST documented as of this encounter Care Teams Dental Instrument Maker Relationship Specialty Start Date End Date Haily Robb FNP [address] [place] [id number] PCP - General Family Medicine 05/01/22 documented as of this encounter
--- OUTSIDE RECORDS SUMMARY | 2025-04-29 11:17 | XMS_ITS | Encounter Summary ---
Author Organization [employer] Address [address] [facility] 7t [place] [address] Care Team Providers Care Forest Ecology Professor Name Role Phone [place] [facility] Primary Care Provider [phone] Reason for Visit * Reason Comments Med Refill Encounter Details Date Type Department Care Team ([facility] st Contact Info) Description 09/05/2022 Telephone [facility] [address] [place], [place] [phone] [facility] [address] [place] [address] Med Refill Social History Tobacco Use Types [...] - 09/06/2022 8:18 AM EST TC via P/I#[id number], explained to pt that his [facility] Provided pt the phone number for the [facility] site and encouraged him to call them for all refills of his Clonazepam. Pt thanked flex o writer operator and said he understood. * Telephone Encounter - Yessi Cannon RN - 09/05/2022 3:04 PM EST Note on 08/02/22: Medication request:CLONAZEPAM Last visit 06/27/22. You sent a refill in June, it was picked up 07/12/22. He was originally getting this elsewhere. Not sure what you'd like to do. If you'll now be prescribing, then would you like him on FOOD SANITARIAN? documented in this encounter Plan of Treatment Not on file documented as of this encounter Visit Diagnoses Diagnosis Other specified anxiety disorders documented in this encounter Care Teams Forest Ecology Professor Relationship Specialty Start Date End Date Haily Robb FNP [address] [place] [address] PCP - General Family Medicine 05/01/22 documented as of this encounter
--- OUTSIDE RECORDS SUMMARY | 2025-04-29 11:17 | XMS_ITS | Encounter Summary ---
Author Organization [employer] Address [address] [facility] [address] [address] [facility] [address] [place] [address] Care Team Providers Care Plywood Factory Worker Name Role Phone Clarisse [facility] Primary Care Provider [phone] Reason for Visit * Reason Comments Med Refill Encounter Details Date Type Department Care Team (Late st Contact Info) Description 04/02/2023 Refill [facility] [address] [place], [place] [phone] Juanjose Barton MD [address] [place], [place] [phone] Chronic pruritus Social History Tobacco Use Types [...] documented as of this encounter Care Teams Plywood Factory Worker Relationship Specialty Start Date End Date [place] [address] [place] [address] PCP - General Family Medicine 05/01/22 documented as of this encounter
--- OUTSIDE RECORDS SUMMARY | 2025-04-29 11:17 | XMS_ITS | Encounter Summary ---
Author Organization [employer] Address [address] [facility] 7t [place] [address] Care Team Providers Care Dry Mill Operator Name Role Phone Clarisse [facility] Primary Care Provider [phone] Reason for Visit * Reason Onset Date Comments Results 03/16/2023 Encounter Details Date Type Department Care Team ([facility] st Contact Info) Description 03/16/2023 Telephone [facility] [address] [place], [place] [phone] [place] [facility] [address] [place] [address] Results Social History Tobacco Use Types Packs/Day [...] 03/20/2023 4:06 PM EDT Return T/C to [phone] for below message, No answer. LVM to call back on [phone]. * Telephone Encounter - Kelli Boucher - 03/16/2023 2:04 PM EDT Tc from pt requesting a call in regards to results to recent lab orders. Please contact pt at [phone] (Qatari speaker) documented in this encounter Plan of Treatment Not on file documented as of this encounter Visit Diagnoses Not on filedocumented in this encounter Additional Health Concerns Assessment Noted Time PHQ-9 Depression Total Score: 0 01/26/20 23 3:38 PM EDT documented as of this encounter Care Teams Dry Mill Operator Relationship Specialty Start Date End Date Haily Robb FNP [address] [place] [address] PCP - General Family Medicine 05/01/22 documented as of this encounter
--- OUTSIDE RECORDS SUMMARY | 2025-04-29 11:17 | XMS_ITS | Encounter Summary ---
Author Organization [employer] Address [address] [facility] 7t [place] [address] Care Team Providers Care Solid Plasterer Name Role Phone Clarisse [facility] Primary Care Provider [phone] Reason for Visit * Reason Onset Date Comments Nurse Triage 02/16/2023 Encounter Details Date Type Department Care Team ([facility] st Contact Info) Description 02/16/2023 Telephone [facility] [address] [place], [place] [phone] [facility] [address] [place] [address] Nurse Triage Social History Tobacco Use Types [...] - 02/23/2023 2:49 PM EDT T/C to [phone] through [employer] interpreters id - [id number] for below message, pt. Verbally agreed and understood. * Telephone Encounter - Angela Whitman LPN - 02/16/2023 2:48 PM EDT Triage call returned to patient via [employer] Clinical Project Assistant [id number]. Patient called with concerns of Left eye burning and tearing at times with blurred vision. No irritant or object in eye at this time. Patient reports that he was seen some time ago in [facility] [place] and was given order to obtain eye drops for dry eye. He is angry that he had to pay for them out of pocket and that they did not help. Patient requesting specifically a referral and declines appts. in [facility] or with Team providers later in [...] suggested disposition Override Notes: Patient seen in [facility] [place] and was told to use eye drops several months ago. Patient requesting only referral to Boiler Cleaner. Video visit not offered Positive Triage Question: [...] The caller accepted this outcome Patient speaks vietnamese documented in this encounter Plan of Treatment Not on file documented as of this encounter Visit Diagnoses Not on filedocumented in this encounter Additional Health Concerns Assessment Noted Time PHQ-9 Depression Total Score: 0 01/26/20 3:38 PM EDT documented as of this encounter Care Teams Solid Plasterer Relationship Specialty Start Date End Date Haily Robb FNP [address] [place] [id number] PCP - General Family Medicine 05/01/22 documented as of this encounter
--- OUTSIDE RECORDS SUMMARY | 2025-04-29 11:17 | XMS_ITS | Encounter Summary ---
Author Organization [employer] Address [address] [facility] [address] [place] [address] Care Team Providers Care Family Resource Specialist Name Role Phone [facility] Primary Care Provider [phone] Reason for Visit * Reason Onset Date Comments pt1 03/10/2025 Encounter Details Date Type Department Care Team ([facility] st Contact Info) Description 03/10/2025 Telephone [facility] [address], [place] [phone] [facility] [address] [place] [address] pt1 Social History Tobacco Use Types Packs/Day Years [...] Answer Date Recorded Patient Health Questionnaire-9 Score 23 03/11/2025 Patient Health Questionnaire-9 Score 23 03/11/2025 Last PHQ-9: Questionnaire Data Not on file 0 03/11/2025 Housing Stability Answer Date Recorded What is [...] Answer Date Recorded Patient Health Questionnaire-2 Score 6 03/11/2025 Internet Access Answer Date Recorded Internet Access Q1 Yes 05/02/2024 Internet Access Q2 Not on file 05/02/2024 Sex and Gender Information Value Date Recorded Sex Assigned at Male 07/03/2022 10:29 AM EDT Legal Sex Male 10:29 AM EDT Gender Identity Choose not to disclose 10:29 AM EDT Sexual Orientation Choose not to disclose 2021 10:29 AM EDT documented as of this encounter Functional Status * Over the past 2 weeks, how often have you been bothered by any of the following problems? Question Answer Date of Assessment Author Patient Health Questionnaire -2 Score 6 03/11/2025 3:17 PM EDT Latricia Wong MA * Little interest or pleasure in doing things Answer Date of Assessment Author Nearly every day 03/11/2025 3:17 PM EDT Latricia Smith Ma, [place] * Feeling down, depressed, or hopeless Answer Date of Assessment Author Nearly every day 03/11/2025 3:17 PM EDT Latricia Smith Ma, [place] * Trouble falling or staying asleep, or sleeping too much Answer Date of Assessment Author Nearly every day 03/11/2025 3:17 PM EDT Latricia Smith Ma, [place] * Feeling tired or having little energy Answer Date of Assessment Author Nearly every day 03/11/2025 3:17 PM EDT Latricia Smith Ma, [place] * Poor appetite or overeating Answer Date of Assessment Author Nearly every day 03/11/2025 3:17 PM EDT Latricia Smith Ma, [place] * Feeling bad about yourself - or that you are a failure or have let yourself or your family down Answer Date of Assessment Author Nearly every day 03/11/2025 3:17 PM EDT Latricia Smith Ma, [place] * Trouble concentrating on things, such as reading the newspaper or watching television Answer Date of Assessment Author Nearly every day 03/11/2025 3:17 PM EDT Latricia Smith Ma, [place] * Moving or speaking so slowly that other people could have noticed? Or the opposite - being so fidgety or restless that you have been moving around a lot more than usual. Answer Date of Assessment Author More than half the days 03/11/2025 3:17 PM EDT Latricia Garcia MA * Thoughts that you would be better off or hurting yourself in some way Answer Date of Assessment Author Not at all 03/11/2025 3:17 PM EDT Latricia Matthews MA * Patient Health Questionnaire-9 Score Answer Date of Assessment Author 23 03/11/2025 3:17 PM EDT Latricia Matthews MA * How difficult have these problems made it for you to do your work, take care of things at home, or get along with other people? Answer Date of Assessment Author Extremely difficult 03/11/2025 3:17 PM EDT Latricia Wong MA * Over the last 2 weeks, how often have you been bothered by any of the following problems? Question Answer Date of Assessment Author Feeling nervous, anxious, or on edge 2 03/11/2025 2:41 PM EDT Latricia Wong MA Not being able to stop or control worrying 3 03/11/2025 2:41 PM EDT Latricia Wong MA Worrying too much about different things 3 03/11/2025 2:41 PM EDT Latricia Wong MA Trouble relaxing 3 03/11/2025 2:41 PM EDT R Latricia Grimaldo MA Being so restless that it is hard to sit still 1 03/11/2025 2:41 PM EDT Latricia Wong MA Becoming easily annoyed or irritable 0 03/11/2025 2:41 PM EDT Latricia Wong MA Feeling afraid as if somethi ng awful might happen 3 03/11/2025 2:41 PM EDT Latricia Wong MA JODY-7 Total Score 15 03/11/2025 2:41 PM EDT Latricia Wong MA documented as of this encounter Miscellaneous Notes * Telephone Encounter - Soila Houser - 03/10/2025 10:41 AM EDT Patient calling requesting PT1 Home Address verified: [address] [place] [phone] Provider name or facility name: [facility] Address: [address] [place] [address] Escort needed: Y/N: No Do you have a wheelchair: Y/N: No If yes- Manual or electric: n/a Visits: 2 x months Patient calling requesting PT1 Home Address verified: [address] [place] [phone] Provider name or facility name: [facility] Address: [address] [place] [address] Escort needed: Y/N: No Do you have a wheelchair: Y/N: No If yes- Manual or electric: n/a Visits: 2 x months Patient calling requesting PT1 Home Address verified: [address] [place] [phone] Provider name or facility name: [facility] Escort needed: Y/N: No Do you have a wheelchair: Y/N: No If yes- Manual or electric: n/a Visits: 2 x months documented in this encounter Plan of Treatment [...] documented as of this encounter Care Teams Family Resource Specialist Relationship Specialty Start Date End Date Haily Robb FNP [address] [place] [id number] PCP - General Family Medicine 05/01/22 documented as of this encounter
--- OUTSIDE RECORDS SUMMARY | 2025-04-29 11:17 | XMS_ITS | Encounter Summary ---
Author Organization [employer] Address [address] [facility] [address] [place] [address] Care Team Providers Care [employer] Worker Name Role Phone Haily Robb [employer] Primary Care Provider [phone] Reason for Visit * Reason Comments Med Refill Encounter Details Date Type Department Care Team (Late st Contact Info) Description 10/29/2023 Refill [facility] [address] [place] [phone] Name, MD [place] [address] [place] [address] Chronic neck pain Social History Tobacco Use [...] documented as of this encounter Care Teams [employer] Worker Relationship Specialty Start Date End Date Haily Robb FNP [address] [place] [id number] PCP - General Family Medicine 05/01/22 documented as of this encounter
--- OUTSIDE RECORDS SUMMARY | 2025-04-29 11:17 | XMS_ITS | Clinical Summary ---
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 Name Role Phone Haily Robb [facility] Primary Care Provider [phone] Allergies Active Allergy Reactions Criticality Noted Date Comments Shellfish Allergy Anaphylaxis High 12/01/2024 Allergy Shellfish-Derived Products Seafood Medications * This document contains information [...] blood pressure daily 1 kit 024 Active Ventolin HFA 108 (90 Base) MCG/ACT inhalerIndication s:Wheezing INHALE 2 PUFFS BY MOUTH EVERY 4 HOURS NEEDED FOR WHEEZING OR SHORTNESS OF BREATH 18 g 11 Active cromolyn (Nasachrom) 5.2 MG/ACT nasal sprayIndications: Nasal congestion Administer 1 spray into each nostril 4 times daily. 26 mL 12 024 2024 Active loratadine (Claritin) 10 MG tabletIndications :Nasal congestion Take 1 tablet (10 mg) by mouth Once per day. 30 tablet 11 024 2024 Active fluticasone [...] MOUTH EVERY MORNING 90 tablet 3 Active cholecalciferol (D3 Super Strength) 50 MCG (2000 UT) capsuleIndication s:Vitamin D deficiency TAKE 1 CAPSULE BY MOUTH EVERY MORNING 90 capsule 3 Active QUEtiapine (SEROquel) 25 MG tablet Take 25 mg by mouth if needed at bedtime. Active sucralfate (Carafate) 1 GM/10ML suspension Take 10 mL (1 g) by mouth every 6 (six) hours. 473 mL Active Ketotifen Fumarate 0.035 % solutionIndicatio ns:Seasonal allergies Administer 1 drop into affected eye(s) if needed in the morning and at bedtime (allergies). 10 mL 3 Active fluticasone (Flonase) 50 MCG/ACT nasal sprayIndications: Seasonal allergies Use 1 spray each nostril daily. Shake gently. Before first use, prime pump. After use, clean tip and replace cap. 16 g 2 Active docusate sodium (Colace) 100 MG capsule Take 1 capsule (100 mg) by mouth 2 times daily. 180 capsule 3 2025 Active polycarbophil (Fibercon) 625 MG tablet Take 1 tablet (625 mg) by mouth 2 times daily. 180 tablet 3 2025 Active polyethylene glycol, PEG, 3350 (MiraLax) 17 GM/SCOOP powder Take 17 g by mouth if needed each day (constipation ). 527 g 2 2025 Active acetaminophen (Tylenol 8 Hour) 650 MG ER tablet Take 1 tablet (650 mg) by mouth every 8 (eight) hours if needed for mild pain. Do not crush, chew, or split. 60 tablet 2 2025 Active Diclofenac Sodium 1 % gel Apply 2 g topically if needed in the morning, at noon, in the evening, and at bedtime (pain). 150 g 3 Active lidocaine (Lidoderm) 5 % patch Apply 1-2 patches topically if needed each day for mild pain (pain). Remove & discard patch within 12 hours or as directed by MD. 60 patch 1 2025 Active DULoxetine (Cymbalta) [address] capsule Take 1 capsule (30 mg) by mouth Once per day. Do not crush or chew. 30 capsule 2 2025 Active melatonin 5 MG tabletIndications :Mixed anxiety and depressive disorder TAKE 1 TO 2 TABLETS BY MOUTH EVERY DAY AT BEDTIME NEEDED 60 tablet 2 Active Diclofenac Sodium (Voltaren) 1 % gel Use topical BID 100 g 3 Active furosemide (Lasix) 20 MG tabletIndications :Bilateral lower extremity edema TAKE 2 TABLETS BY MOUTH EVERY DAY 60 tablet 2 Active omeprazole (PriLOSEC) [address] capsuleIndication s:Epigastric pain Take 1 capsule (40 mg) by mouth before breakfast and before evening meal. 60 capsule 3 Active simethicone 125 MG capsule Take 1 capsule (125 mg) by mouth if needed in the morning, at noon, in the evening, and at bedtime (abd pain/gas). 30 capsule 1 Active benzocaine-mentho l (Chloraseptic) 6-10 MG lozengeIndication s:Sore throat Dissolve 1 lozenge in the mouth every 2 (two) hours if needed for sore throat. 100 lozenge 025 2025 Active naproxen (Naprosyn) 500 MG tabletIndications :Acute midline low back pain without sciatica Take 1 tablet (500 mg) by mouth if needed in the morning and at bedtime for mild pain. 40 tablet 1 025 2025 Active cetirizine (ZyrTEC) 10 MG tabletIndications :Seasonal allergies TAKE 1 TABLET BY MOUTH EVERY DAY NEEDED FOR ALLERGIES 90 tablet Active triamcinolone (Kenalog) 0.1 % ointmentIndicatio ns:Stasis dermatitis APPLY TOPICALLY TWICE DAILY 30 g 1 Active cyclobenzaprine (Flexeril) 10 MG tabletIndications :Chronic bilateral low back pain without sciatica Take 1 tablet (10 mg) by mouth 3 times daily for 10 days. 30 tablet 025 2024 Active acetaminophen (Tylenol Extra Strength) 500 MG tabletIndications :Chronic bilateral low back pain without sciatica Take 2 tablets (1,000 mg) by mouth every 8 (eight) hours if needed for moderate pain for up to 10 days. 30 tablet 025 2024 Active SUMAtriptan (Imitrex) 50 MG tabletIndications :Chronic nonintractable headache, unspecified headache type Take 1 tablet (50 mg) by mouth 1 (one) time if needed for migraine for up to 1 dose. May repeat dose once in 2 hours if no relief. Do not exceed 2 doses in 24 hours. 9 tablet Active amitriptyline (Elavil) 25 MG tabletIndications :Chronic nonintractable headache, unspecified headache type Take 1 tablet (25 mg) by mouth at bedtime. 30 tablet 025 2024 Active meloxicam (Mobic) 7.5 MG tablet Take 1 tablet (7.5 mg) by mouth 2 times daily. 60 tablet 11 024 2024 Discontinued ARIPiprazole (Abilify) 10 MG tablet Take 1 tablet by mouth at bedtime. 2024 Discontinued(T herapy completed) mirtazapine (Remeron) 15 MG tablet Take 15 mg by mouth at bedtime. 024 2024 Discontinued(T herapy completed) SUMAtriptan (Imitrex) 25 MG tabletIndications :Chronic nonintractable headache, unspecified headache type Take 1 tablet (25 mg) by mouth 1 (one) time if needed for migraine for up to 9 doses. May repeat dose once in 2 hours if no relief. Do not exceed 2 doses in 24 hours. 9 tablet 025 2024 Discontinued(R eorder (will not trigger notification to Pharmacy)) triamcinolone (Kenalog) 0.1 % ointmentIndicatio ns:Stasis dermatitis Apply topically 2 times daily. 30 g 1 025 2024 Discontinued amitriptyline (Elavil) 10 MG tablet Take 1 tablet (10 mg) by mouth at bedtime. 30 tablet 025 2024 Discontinued SUMAtriptan (Imitrex) 25 MG tabletIndications :Chronic nonintractable headache, unspecified headache type Take 1 tablet (25 mg) by mouth 1 (one) time if needed for migraine for up to 9 doses. May repeat dose once in 2 hours if no relief. Do not exceed 2 doses in 24 hours. 9 tablet 025 2024 Discontinued Active Problems Problem Noted Date Diagnosed Date Chronic bilateral low back pain without sciatica 04/27/2025 Assessment & Plan (04/27/2025 2:14 PM EDT): Apply heat on affected area I will prescribe today acetaminophen and flexeril, he is aware of side effect somnolence, he knows he can not drive or do activities that requires his attention while on this medication Do not miss appointment with specialist Chronic nonintractable headache 04/27/2025 Assessment & Plan (04/27/2025 2:15 PM EDT): I advise to avoid triggers like red wine, alcohol, chocolate, cheese, strong perfumes, avoid dehydration I will go up on sumatriptan to 50mg PRN I will go up on amitriptyline to 25mg at bed time CT of head results reviewed with patient Drug-induced constipation 04/04/2025 Assessment & Plan (04/04/2025 10:50 AM EDT): Secondary to methadone. Advised to take MiraLAX daily to achieve at least 1 BM every day Benign prostatic hyperplasia with urinary freque ncy 04/04/2025 Assessment & Plan (04/04/2025 10:50 AM EDT): Patient has LUTS, most likely related to enlarged prostate. Continue Flomax and advised to schedule an appointment with urology within the next month Continue off testosterone for now, no evidence of UTI today, reconsult as needed Stasis dermatitis 03/12/2025 Cellulitis of both feet 03/12/2025 Sore throat 02/28/2025 Assessment & Plan (02/28/2025 10:13 AM EDT): Pt here with c/o new onset of sore throat. Rapid strep, flu and covid negative Exam normal Etiology: likely viral pharyngitis Plan: Supportive measures, Tylenol, Cepacol lozenges PRN Acute midline low back pain without sciatica Assessment & Plan (02/28/2025 10:17 AM EDT): Pt here with c/o acute low back pain x 4 days, in the absence of any trauma. Exam: evidence of muscle spasm. Neg straight leg raise U/A negative for blood, Recent BMP Lab Results Component Value Date NA 140 02/25/2025 NA 141 02/15/2025 K 3.7 02/25/2025 K 4.3 02/15/2025 CL 99 02/25/2025 CL 102 02/15/2025 BUN 16 02/25/2025 BUN 17 (H) 02/15/2025 CREATININE 1.05 02/25/2025 CREATININE 1.03 02/15/2025 Exam suggestive of muscle spasm. Plan: NSAIDS, Continue Muscle relaxant 9pt on Baclofen) , plain films LS spine PT F/u with PCP if worsening or no improvement Dizziness 02/13/2025 Assessment & Plan (02/13/2025 4:51 PM EDT): It is likely secondary to Lasix intake, possible dehydration and volume depletion Advised to stop Lasix for now I ordered blood work he will be contacted with results Tinnitus of both ears 02/13/2025 Decreased hearing of both ears 02/13/2025 Cellulitis of lower extremity 02/13/2025 Assessment & Plan (02/13/2025 4:51 PM EDT): I will prescribe the patient Keflex for 1 week I advised to monitor the area if symptoms are worsening to report back or go to the emergency room Seasonal allergies 01/20/2025 Assessment & Plan (01/20/2025 10:31 AM EDT): Supportive care. Avoidance of pollen as much as possible. Cornell of ophthalmic mast cell stabilizer, nasal steroid and antihistamine. LLQ pain 01/06/2025 Assessment & Plan (01/06/2025 11:25 AM EDT): No evidence of acute abdomen. Chronic. He needs colon cancer screening and has been referred to [facility] in the past. He was encouraged to call in November but did not. We called today to facilitate appointment and give him the number to call. ER precautions discussed. [facility] reports pt has to call himself due to cancelled and did not make follow up. He was given the number [phone]. I stressed the importance of following up [...] any case Continue Carafate Call GI at [facility] for EGD and colonoscopy Eat small frequent [...] edentulism 06/25/2023 Chronic pruritus 06/15/2023 Overview (06/15/2023): Pt with hx of widespread itching with unknown etiology x 5 months. Previous trial of ketoconzole shampoo for possible tinea versicolor without sx improvement. Derm team eval 02/2023-ddx include possible med SE, stress, diet, anxiety. Trial of gabapentin 300mg t.I.d with Initial mild improvement but today states sx persist. Referred to neurology 03/2023 Today describes daily sensation of ants on body and burning/itching that spreads from the neck down and lasts several minutes. Episodes occur randomly. No associated numbness or weakness. Intense pruritus-no improvement with hydroxyzine, benadryl or cetirizine. Pt self discontinued statin due to concern for possible drug s/e with no change in sx B12, syphilis screen, HIV, BMP WNL 03/2023 Established with therapy and psychiatry at [facility] No rash, fever, chills, lymphadenopathy Odynophagia 06/14/2023 [...] for anxiety sxs) that comes referred from [facility] for exacerbated anxiety in presence [...] to explore potential nerve damage due to snf use of anxiolytics, even though John is on low dose medication. At this time is unclear if crawling/burning sensation on skin is solely due to medical and/or somatic presentation. However, sxs are causing significant psychological distress in patient. John was given information on how to reach out to [facility] team and [facility] numbers for crisis. He was also encouraged to bring current event to team to discuss further coping skills to support wellbeing. Patient was agreeable Opioid dependence in remission 05/31/2023 Scrotal pain 02/04/2023 Overview (02/04/2023): saw urology for scrotal pain. PE and u/s negative other than small hydrocele. No fruther eval needed. Tyleno ibu for pain Hypogonadism in male 11/02/2022 Overview (11/02/2022): Followed by [facility]. Lux subcutaneous testosterone injection Assessment & Plan (04/04/2025 10:49 AM EDT): Off testosterone for least 3 months due to concern regarding side effects. Advised to follow-up with PCP or urology, obtain baseline testosterone levels one results testosterone to achieve normal levels. Neck pain on left side 09/15/2022 Assessment [...] pylori gastritis 08/03/2022 Hyperlipidemia 08/03/2022 Overview (02/04/2023): Rosuvastatin 10mg daily ASCVD 6.7% 11/2022 Renal cyst, left 08/03/2022 Vitamin D deficiency 08/03/2022 Tobacco use 08/03/2022 Overview (04/25/2024): Quit 2023 Assessment & Plan (08/06/2022 3:07 PM EST): -Currently smoking approx 3-4 cigg/day, with goal smoking cessation -Discussed various pharamcotherapy options, pt interested in lowest dose of patches and gum. Sent to pharmacy Submandibular lymphadenopathy 03/31/2022 Overview (07/04/2023): Followed by ENT Seen 10/19/2022-plan for neck CTL Left neck ultrasound from 12/07/2021. Normal bilateral carotid artery ultrasound 12/2021-negative neck CT Assessment & Plan (08/06/2022 3:06 [...] of this appointment. His appointment is at [facility] [phone] on January 27 at 11:00 am. He [...] anxiety and depressive disorder 02/22/2017 Overview (08/05/2023): Followed by [facility] Clonazepam PRN Clonidine PRN Assessment & Plan (11/06/2022 5:05 AM EST): Spoke with pharmacy-the blue conazepam tablets that patient prefer are from a different quality control specialist and are on back order. Pt will follow up with new psychiatrist as scheduled. Verbalizes understanding that I am only providing refills until this new appt Denies current SI or thoughts of self harm Contact [facility] if sx worsen or do not improve with tx. Resolved Problems Problem Noted Date Diagnosed Date Resolved Date Gas pain 09/15/2022 11/02/2022 Left flank pain 08/03/2022 11/02/2022 Dermatitis 08/03/2022 11/02/2022 Lower urinary tract symptoms 02/22/2017 11/02/2022 Encounters Date Type Department Care Team Description 04/29/2025 Orders Only GENERIC EXTERNAL DATA DEPARTMENT Provider, Generic External Data 04/27/2025 1:40 PM EDT Office Visit [facility] [address] [place] [phone] Sanam Noland MD Chronic bilateral low back pain without sciatica (Primary Dx); Chronic nonintractable headache, unspecified headache type 04/27/2025 Travel 04/21/2025 10:20 AM EDT Office Visit [facility] [address] [address] Collins Reyes MD Chronic nonintractable headache, unspecified headache type (Primary Dx) 04/21/2025 Travel 04/06/2025 Refill [facility] [address] [place] [phone] Gema Gar FNP Stasis dermatitis 04/05/2025 Orders Only GENERIC EXTERNAL DATA DEPARTMENT Provider, Generic External Data 04/04/2025 10:20 AM EDT Office Visit [facility] [address] [address] Ana Luisa Jennings MD Benign prostatic hyperplasia with urinary frequency (Primary Dx); Drug-induced constipation; Hypogonadism in male 04/04/2025 Travel 03/30/2025 2:45 PM EDT Office Visit [facility] [address] [place] [phone] Haily Robb FNP Peripheral vascular disease (CMS/HCC) (Primary Dx) 03/30/2025 Travel 03/26/2025 Telephone [facility] [address] [place] [phone] Haily Robb FNP chart prep 03/23/2025 Telephone [facility] [address] [place] [phone] Haily Robb FNP Results 03/14/2025 Refill [facility] [address] [place] [phone] Elda Love MD Seasonal allergies 03/12/[address] [address] Haily Robb FNP Durable Medical Equipment 03/11/2025 2:30 PM EDT Office Visit [address] [address] Gema Gar FNP Stasis dermatitis (Primary Dx); Cellulitis of both feet 03/11/2025 Travel 03/11/[address] [address] Haily Robb FNP Nurse Triage 03/10/2025 Patient Outreach [address] [address] Haily Robb FNP Care Coordination ([facility] outreach for SDOH-patient declined to participate ) 03/10/[address] [address] Haily Robb FNP pt1 03/10/[address] [address] Haily Robb FNP Call Back Request 03/09/[address] [address] Haily Robb FNP ER Follow-up 03/09/2025 Orders Only GENERIC EXTERNAL DATA DEPARTMENT Provider, Generic External Data 03/03/2025 [facility] Health Information Management [address] [place] [phone] Roxana Gotti DO 03/02/[address] [address] Haily Robb FNP Call Back Request 03/01/2025 Orders Only GENERIC EXTERNAL DATA DEPARTMENT Provider, Generic External Data 02/28/2025 9:40 AM EDT Office Visit [facility] [address] [place] [phone] Sean Brown MD Sore throat (Primary Dx); Acute midline low back pain without sciatica 02/28/2025 Travel 02/26/2025 Telephone [facility] [address] [place] [phone] [place], [employer] Results 02/26/2025 Telephone [facility] [address] [place] [phone] [facility] [employer] Referral 02/23/2025 Telephone [facility] [address] [place] [phone] [facility] [employer] Referral 02/20/2025 11:00 AM EDT Office Visit [facility] [address] [place] [phone] Roxana Gotti DO Epigastric pain (Primary Dx) 02/20/2025 Travel 02/18/2025 2:40 PM EDT Office Visit [facility] [address] [place] [phone] Jyoti Resendiz NP Chronic nonintractable headache, unspecified headache type (Primary Dx) 02/18/2025 Travel 02/15/2025 Orders Only GENERIC EXTERNAL DATA DEPARTMENT Provider, Generic External Data 02/13/2025 1:20 PM EDT Office Visit [facility] [address] [place] [phone] Sanam Noland MD Dizziness; Tinnitus of both ears; Decreased hearing of both ears; Cellulitis of lower extremity, unspecified laterality 02/13/2025 Travel 02/12/2025 Refill [facility] [address] [place] [phone] Pepper Balderrama MD Bilateral lower extremity edema 02/10/[address] [address] [place] Haily [facility] Call Back Request 02/09/2025 10:40 AM EDT Office Visit [facility] [address] [place] [phone] Amena Medina MD Chronic bilateral low back pain without sciatica (Primary Dx); Atypical chest pain 02/05/2025 Refill [facility] [address] [place] [address] Haily Robb FNP Mixed anxiety and depressive disorder 02/04/2025 Telephone [facility] [address] [place] [address] [place] FNP Nurse Triage 01/29/2025 9:00 AM EDT Office Visit [facility] [address] [place] [address] Roxana Gotti DO Polyarthralgia (Primary Dx); Constipation, unspecified constipation type; Osteoarthritis of left knee, unspecified osteoarthritis type 01/29/2025 Telephone [facility] [address] [place] [address] Griselda Bonner, CHAGO PAC triage 01/28/2025 Telephone [facility] [address] [place] [address] [place] FNP Nurse Triage from Last 3 Months Immunizations Immunization Administration Dates Next Due HepB-CpG 11/16/2022 Moderna [...] Score 21 03/30/2025 Patient Health Questionnaire-9 Score 03/30/2025 Last [...] 16 04/27/2025 1:39 PM EDT Oxygen Saturation 98% 04/21/2025 10:55 AM EDT Inhaled Oxygen Concentration - - Weight 61.9 kg (136 lb 6.4 oz) 04/27/2025 1:39 P M EDT Height 172.7 cm (5' 8 ) 04/27/2025 1:39 PM EDT Body Mass Index 20.74 04/27/2025 1:39 PM EDT Plan of Treatment Health Maintenance Due Date Last Done Comments CT Colonography 1968 Colonoscopy 1968 Colorectal Cancer Screening 1968 FIT DNA/Cologuard 1968 FIT 1968 FOBT 1968 Sigmoidoscopy 1968 Alcohol/Substance Use Screening 1980 DTaP/Tdap/Td Vaccines (1 - Tdap) 1987 Hepatitis B Vaccines (2 of 2 - CpG 2-dose series) 12/14/2022 11/16/2022 Zoster Vaccines (2 of 2) 01/11/2023 11/16/2022 COVID-19 Vaccine ( season) 2024 04/27/2022, 04/27/2022, 08/16/2021, Additional history exists Dental X-Ray: Bitewings 06/26/2024 06/25/2023 Dental Oral Exam 04/22/2025 10/22/2024, , 06/01/2022 Dental Prophylaxis 04/22/2025 10/22/2024, 0 04/17/2024, 06/25/2023, Additional history exists SDOH Screening 04/23/2025 04/23/2024 Influenza Vaccine (#1) 2025 Depression Monitoring 09/30/2025 03/30/2025, 025 Diabetes: Hemoglobin A1C 01/06/2026 025, 06/20/2024, 03/19/2024, Additional history exists Disability Screening 03/11/2026 03/11/2025 Tobacco Screening 04/21/2026 04/21/2025 Dental X-Ray: Full Mouth 09/12/2026 09/11/2023, 06/04 Lipid Panel 03/19/2029 03/19/2024, 02/02, 11/06/2022, Additional history exists RSV Patients and Patients Aged 60 years or older (1 - 1-dose 75+ series) 2043 HIV Screening Completed 03/22/2023, 03/0 02/2023, 05/05/2021, Additional history exists Pneumococcal Vaccine: 50+ Years Completed 12/15/2024 Hepatitis C Screening Completed 01/06/2025 , 03/22/2023, 11/06/2022, Additional history exists HIB Vaccines Aged Out [...] Name Priority Date/Time Associated Diagnosis Comments XR CHEST 1 VIEW Routine 04/29/2025 9:59 AM EDT BASIC METABOLIC PANEL Routine 04/29/2025 9:58 AM EDT CBC WITH AUTO DIFFERENTIAL Routine 04/29/2025 9:58 AM EDT LIPASE Routine 04/05/2025 11:30 AM EDT COMPREHENSIVE METABOLIC PANEL Routine 04/05/2025 11:30 AM EDT CBC WITH AUTO DIFFERENTIAL Routine 04/05/2025 11:30 AM EDT POCT URINALYSIS DIPSTICK Routine 04/04/2025 10:43 AM EDT Benign prostatic hyperplasia with urinary frequency URINALYSIS WITH REFLEX MICROSCOPIC Routine 03/09/2025 11:05 AM EDT CBC WITH AUTO DIFFERENTIAL Routine 03/09/2025 11:[address] ABDOMEN PELVIS W CONTRAST Routine 03/01/2025 8:53 PM EDT XR KUB AND UPRIGHT 2 VIEWS Routine 03/01/2025 5:40 PM EDT LIPASE Routine 03/01/2025 4:18 PM EDT MAGNESIUM Routine 03/01/2025 4:18 PM EDT COMPREHENSIVE METABOLIC PANEL Routine 03/01/2025 4:18 PM EDT URINALYSIS WITH REFLEX MICROSCOPIC Routine 03/01/2025 4:18 PM EDT CBC WITH AUTO DIFFERENTIAL Routine 03/01/2025 4:18 PM EDT POC LEMON ID NOW STREP A Routine 02/28/2025 10:17 AM EDT Sore throat POCT INFLUENZA B (ID NOW RAPID MOLECULAR) Routine 02/28/2025 10:17 AM EDT Sore throat POCT INFLUENZA A (ID NOW RAPID MOLECULAR) Routine 02/28/2025 10:17 AM EDT Sore throat POCT RAPID COVID ANTIGEN Routine 02/28/2025 10:17 AM EDT Sore throat POCT URINALYSIS DIPSTICK Routine 02/28/2025 10:15 AM EDT Acute midline low back pain without sciatica LIPASE Routine 02/25/2025 11:31 AM EDT Epigastric pain AMYLASE Routine 02/25/2025 11:31 AM EDT Epigastric pain HEPATIC FUNCTION PANEL Routine 02/25/2025 11:31 AM EDT Epigastric pain CBC WITH AUTO DIFFERENTIAL Routine 02/25/2025 11:31 AM EDT Dizziness BASIC METABOLIC PANEL Routine 02/25/2025 11:31 AM EDT Dizziness TSH W/REFLEX TO FT4 Routine 02/25/2025 1 1:31 AM EDT Polyneuropathy POCT RAPID COVID ANTIGEN Routine 02/18/2025 4:07 PM EDT Chronic nonintractable headache, unspecified headache type POCT INFLUENZA B Routine 02/18/2025 4:07 PM EDT Chronic nonintractable headache, unspecified headache type POCT INFLUENZA A Routine 02/18/2025 4:07 PM EDT Chronic nonintractable headache, unspecified headache type CT HEAD WO CONTRAST Routine 02/15/2025 1 1:21 AM EDT URINALYSIS WITH REFLEX MICROSCOPIC Routine 02/15/2025 11:05 AM EDT XR CHEST 1 VIEW Routine 02/15/2025 9:29 AM EDT HIGH SENSITIVITY TROPONIN I Routine 02/15/2025 9:24 AM EDT LIPASE Routine 02/15/2025 9:24 AM EDT BASIC METABOLIC PANEL Routine 02/15/2025 9:24 AM EDT HEPATIC FUNCTION PANEL Routine 02/15/2025 9:24 AM EDT B TYPE NATRIURETIC PEPTIDE (BNP) Routine 02/15/2025 9:24 AM EDT CBC WITH AUTO DIFFERENTIAL Routine 02/15/2025 9:24 AM EDT SARS COV2/INFLUENZA A/B AND RSV RNA QL NAAT Routine 02/15/2025 9:24 AM EDT ECG 12-LEAD Routine 02/09/2025 10:58 AM EDT Atypical chest pain BASIC METABOLIC PANEL Routine 01/29/2025 10:19 AM EDT Polyarthralgia CBC WITH AUTO DIFFERENTIAL Routine 01/29/2025 10:19 AM EDT Polyarthralgia C-REACTIVE PROTEIN Routine 01/29/2025 10 :19 AM EDT Polyarthralgia SED RATE BY MODIFIED WESTERGREN Routine 01/29/2025 10:19 AM EDT Polyarthralgia RHEUMATOID FACTOR Routine 01/29/2025 10: 19 AM EDT Polyarthralgia LYME DISEASE AB W/REFL TO BLOT (IGG, IGM) Routine 01/29/2025 10:19 AM EDT Polyarthralgia ANA LUISA SCREEN, IFA, W/REFL TITER AND PATTERN Routine 01/29/2025 10:19 AM EDT Polyarthralgia TSH W/REFLEX TO FT4 Routine 01/29/2025 1 0:19 AM EDT Polyneuropathy XR CERVICAL SPINE 3V Routine 01/29/2025 9:50 AM EDT XR ANKLE 3+ VIEWS RIGHT Routine 01/29/2025 9:50 AM EDT Polyarthralgia XR ANKLE 3+ VIEWS LEFT Routine 01/29/2025 9:50 AM EDT Polyarthralgia XR SHOULDER 2+ VIEWS RIGHT Routine 01/29/2025 9:50 AM EDT Polyarthralgia XR SHOULDER 2+ VIEWS LEFT Routine 01/29/2025 9:50 AM EDT Polyarthralgia HEPATITIS C AB W/REFL TO HCV RNA, QN, PCR Routine 01/06/2025 10:11 AM EDT Bilateral lower extremity edema HEMOGLOBIN A1C Routine 01/06/2025 10:11 AM EDT Polyneuropathy PROPHYLAXIS - ADULT Routine 10/22/2024 1 :00 PM EST Dental calculus PERIODIC ORAL EVALUATION - ESTABLISHED PATIENT Routine 10/22/2024 1:00 PM EST LIPID PANEL, STANDARD Routine 03/19/2024 9:34 AM EDT Episode of shaking PANORAMIC RADIOGRAPHIC IMAGE Routine 09/11/2023 1:00 PM EST INTRAORAL - COMPLETE SERIES OF RADIOGRAPHIC IMAGES Routine 06/25/2023 3:00 PM EDT Dental calculus Generalized gingival recession, moderate Missing teeth, acquired HIV 1 RNA, QUANTITATIVE REAL TIME PCR Routine 03/22/2023 11:53 AM EDT Genital lesion, male from Last 3 Months or Most Recently Relevant to Health Maintenance Results * XR Chest 1 View (04/29/2025 9:59 AM EDT) Only the most recent of2 resultswithin the time period is included. Anatomical Region Laterality Modality Chest Radiographic Cecelia ging 04/29/2025 9:59 AM EDT Narrative 04/29/2025 11:06 AM EDT [address] [address] XRay Report Signed Patient: John Fitzpatrick MR#: [id number] : 1970 Acct:[id number] Age/Sex: 55 / M ADM Date: 04/29/25 Loc: .ED Attending Dr: Ordering Physician: Generic ED Physician Date of Service: 04/29/25 Procedure(s): XR chest 1V Accession Number(s): [id number] cc: [facility] ED Physician; [facility] EXAMINATION: XR CHEST CLINICAL INFORMATION: chest pain COMPARISON: February 15, 2025 TECHNIQUE: Frontal view of the chest was obtained. FINDINGS: Mild coarse interstitial markings are noted. Lungs are clear. Heart size is normal. Hilar mediastinal structures are unremarkable. No pleural effusion is evident. XR/XR chest 1V IMPRESSION: Nonspecific mild coarse interstitial markings could represent bronchitis. Electronically signed by: Finesse Witt MD 04/29/2025 11:02 AM EDT RP Dictated By: Finesse Witt MD Signed By: <Electronically signed by Finesse Witt MD in OV> 04/29/25 1102 DD/ 0959 TD/TT: 04/29/25 1055 Manager Care: Procedure Note Donotuseinterpreter, Image - 04/29/[address] [address] XRay Report Signed Patient: John Fitzpatrick AMR#: [id number] : 1970Acct:[id number] Age/Sex: 55 / MADM Date: 04/29/25 Loc: .ED Attending Dr: Ordering Physician: Generic ED Physician Date of Service: 04/29/25 Procedure(s): XR chest 1V Accession Number(s): [id number] cc: [facility] ED Physician; [facility] EXAMINATION: XR CHEST CLINICAL INFORMATION: chest pain COMPARISON: February 15, 2025 TECHNIQUE: Frontal view of the chest was obtained. FINDINGS: Mild coarse interstitial markings are noted. Lungs are clear. Heart size is normal. Hilar mediastinal structures are unremarkable. No pleural effusion is evident. XR/XR chest 1V IMPRESSION: Nonspecific mild coarse interstitial markings could represent bronchitis. Electronically signed by: Finesse Witt MD 04/29/2025 11:02 AM EDT RP Dictated By: Finesse Witt MD Signed By: <Electronically signed by Finesse Witt MD in OV> 04/29/25 1102 DD/ 0959 TD/TT: 04/29/25 1055 Manager Care: [facility] External Provider IMG XR PROCEDURES Edited Result - Final * (ABNORMAL) CBC auto differential (04/29/2025 9:58 AM EDT) Only the most recent of7 resultswithin the time period is included. White Blood Count 5.9 4.8 - 10.8 X10*3/uL [facility] Red Blood Count 3.81(L) 4.60 - 5.80 X10*6/uL [facility] Hemoglobin 12.3(L) 14.0 - 18.0 g/dl [facility] Hematocrit 36.1(L) 42.0 - 52.0 % [facility] Mean Corpuscular Volume 94.8 80.0 - 98.0 fL [facility] Mean Corpuscular Hemoglobin 32.3 27.0 - 33.0 pg [facility] Mean Corpuscular HGB Conc 34.1 31.0 - 36.0 g/dl [facility] Red Cell Distribution Width 12.8 11.0 - 16.0 % [facility] Platelet Count 164 160 - 400 X10*3/uL [facility] Mean Platelet Volume 10.7 9.4 - 12.4 fL [facility] Neutrophils Percent Auto 73.1(H) 45 - 73 % [facility] Imm Gran Pct Auto 0.2 0.0 - 0.4 % [facility] Lymphocytes Percent Auto 18.5(L) 20 - 40 % [facility] Monocytes Percent Auto 6.2 2 - 11 % [facility] Eosinophils Percent Auto 1.5 0 - 4 % [facility] Basophils Percent Auto 0.5 0 - 2 % [facility] NRBC Pct Auto 0.0 0.0 - 0.2 /100WBC [facility] Neutrophils Absolute Auto 4.3 2.0 - 8.3 x10*3/uL [facility] Imm Gran Abs Auto 0.01 0.00 - 0.03 X10*3/uL [facility] Lymphocytes Absolute Auto 1.1(L) 1.2 - 4.9 X10*3/uL [facility] Monocytes Absolute Auto 0.4 0.1 - 1.2 X10*3/uL [facility] Eosinophils Absolute Auto 0.1 0.0 - 0.4 X10*3/uL [facility] Basophils Absolute Auto 0.0 0.0 - 0.2 X10*3/uL [facility] NRBC Abs Auto 0.000 0.0 - 0.012 X10*3/uL [facility] 04/29/2025 9:58 AM EDT 04/29/2025 10:01 AM EDT us Generic External Data Provider LAB BLOOD ORDERAB LES Final Result [facility] [address] [place] [phone] * (ABNORMAL) Basic Metabolic Panel (04/29/2025 9:58 AM EDT) Only the most recent of4 resultswithin the time period is included. Sodium 141 135 - 145 mmol/L [facility] Potassium 4.5 3.3 - 5.1 mmol/L [facility] Chloride 102 96 - 108 mmol/L [facility] Carbon Dioxide 33(H) 22 - 29 mmol/L [facility] Anion Gap 11(L) 12 - 20 [facility] Urea Nitrogen (BUN) 9 9 - 16 mg/dL [facility] Creatinine, Serum 0.91 0.5 - 1.4 mg/dL [facility] Creatinine Clr Calc Pharmacy 75.5 [facility] Comment:eGFR (calculated fro m the MDRD study equation) and eCrCl(calculated from the Cockcroft-Gault equation) are based ondifferent parameters and may not yield comparable results.If eCrCl result is absurd, please check patient'sheight/weight. Estimated Glomerular Filt Rate >60 [facility] Comment:Chronic Kidney Disea se: Estimated GFR < 60 mL/min/[id number] Kidney Disease: Estimated GFR < 15 mL/min/1.73m2 Glucose 99 60 - 115 mg/dL [facility] Calcium 9.3 8.4 - 10.2 mg/dL [facility] 04/29/2025 9:58 AM EDT 04/29/2025 10:01 AM EDT Generic External Data Provider LAB BLOOD ORDERAB LES Final Result Performing Organization Address [facility]/ZIP Co de Phone Number [facility] [address] [place] [phone] * Lipase (04/05/2025 11:30 AM EDT) Only the most recent of4 resultswithin the time period is included. Lipase 30 8 - 78 U/L [facility] 04/05/2025 11:3 0 AM EDT 04/05/2025 11:42 AM EDT Generic External Data Provider LAB BLOOD ORDERAB LES Final Result Performing Organization Address [facility] de Phone Number [facility] [address] [place] [phone] * (ABNORMAL) Comprehensive Metabolic Panel (04/05/2025 11:30 AM EDT) Only the most recent of2 resultswithin the time period is included. Sodium 142 135 - 145 mmol/L [facility] Potassium 4.2 3.3 - 5.1 mmol/L [facility] Chloride 103 96 - 108 mmol/L [facility] Carbon Dioxide 30(H) 22 - 29 mmol/L [facility] Anion Gap 13 12 - 20 [facility] Urea Nitrogen (BUN) 22(H) 9 - 16 mg/dL [facility] Creatinine, Serum 0.99 0.5 - 1.4 mg/dL [facility] Creatinine Clr Calc Pharmacy 69.4 [facility] Comment:eGFR (calculated fro m the MDRD study equation) and eCrCl(calculated from the Cockcroft-Gault equation) are based ondifferent parameters and may not yield comparable results.If eCrCl result is absurd, please check patient'sheight/weight. Estimated Glomerular Filt Rate >60 [facility] Comment:Chronic Kidney Disea se: Estimated GFR < 60 mL/min/1.31j0Nnsgtr Kidney Disease: Estimated GFR < 15 mL/min/1.73m2 Glucose 97 60 - 115 mg/dL [facility] Calcium 9.4 8.4 - 10.2 mg/dL [facility] Bilirubin, Total 1.4(H) 0.0 - 1.0 mg/dL [facility] Aspartate Amino Transferase 36 5 - 37 U/L [facility] Alanine Aminotransferase 56(H) 0 - 40 U/L [facility] Total Protein 7.8 6.5 - 8.0 g/dL [facility] Albumin Level 5.0 3.5 - 5.0 g/dL [facility] Alkaline Phosphatase 54 39 - 117 U/L [facility] 04/05/2025 11:3 0 AM EDT 04/05/2025 11:42 AM EDT us Generic External Data Provider LAB BLOOD ORDERAB LES Final Result [facility] [address] [place] [phone] * POCT Urinalysis (04/04/2025 10:43 AM EDT) Only the most recent of2 resultswithin the time period is included. Color, UA Yellow Clarity, UA Clear Glucose, UA Negative Bilirubin, UA Negative Ketones, UA Negative Spec Grav, UA 1.015 Blood, UA Negative Negative, None Detected pH, UA 8.5 Protein, UA Negative Urobilinogen, UA 1.0 Leukocytes, UA Negative Negative, Rare, Trace Nitrite, UA Negative Negative, None Detected Appearance, UA clear QC Media Lot # [id number] Lot# Expiration Date [id number] Urine 04/04/2025 10:4 3 AM EDT Ana Luisa Jennings MD POINT OF CARE TEST ENTER /EDIT ORDERABLES Final Result * Urinalysis w/reflex microscopic (03/09/2025 11:05 AM EDT) Only the most recent of3 resultswithin the time period is included. Color Urine Yellow [facility] Appearance Urine Turbid [facility] PH >=9.0 5.0 - 9.0 [facility] Glucose Urine UA Negative Negative mg/dL [facility] Urine Blood Negative Negative [facility] Specific Inland - Urine 1.020 1.005 - 1.025 [facility] Urine Protein Trace Neg-Trace mg/dL [facility] Urine Ketones Negative Negative mg/dL [facility] Nitrite Urine Negative Negative [facility] Leukocyte Esterase Urine Negative Negative [facility] 03/09/2025 11:0 5 AM EDT 03/09/2025 11:11 AM EDT Narrative [facility] - 03/09/2025 11:21 AM EDT Urine, Clean Catch us Generic External Data Provider LAB URINE ORDERAB LES Final Result Performing Organization Address City/State/[facility] Co de Phone Number [facility] [address] [place] [phone] * CT Abdomen Pelvis w/ Contrast (03/01/2025 8:53 PM EDT) Anatomical Region Laterality Modality Body, Pelvis, Abdomen Computed T omography 03/01/2025 8:53 PM EDT Narrative 03/01/2025 8:56 PM EDT [address] [address] [address] Scan Report Signed Patient: John Fitzpatrick MR#: [id number] : 1970 Acct:[id number] Age/Sex: 54 / M ADM Date: 03/01/25 Loc: .ED Attending Dr: Ordering Physician: Germania Wilburn MD Date of Service: 03/01/25 Procedure(s): CT abdomen pelvis w IV con Accession Number(s): [id number] cc: Germania Wilburn MD; [facility] Report Number: [id number]: Total DLP = 321.00 mGy-cm CLINICAL HISTORY: LLQ pain CT abdomen and pelvis with contrast Comparison: CT abdomen and pelvis 12/01/2024 Findings: No acute findings within visualized lung bases. Liver, spleen, adrenal glands, pancreas, and kidneys are unremarkable. Gallbladder is decompressed. Minimal intra and extrahepatic ductal prominence. No free air or free fluid. Unremarkable urinary bladder. Moderately enlarged prostate gland. Calcified but nonaneurysmal abdominal aorta and iliofemoral vessels. Stomach is unremarkable. Normal caliber small bowel. No small bowel obstruction. Moderate constipation. No acute appendicitis. No free air or free fluid. No pathologically enlarged lymph nodes. No acute osseous abnormality. No lytic or sclerotic osseous lesions. Impression: 1. No acute findings identified in the abdomen or pelvis. 2. Moderate bordering on severe constipation, slightly increased when compared to prior exam. 3. Enlarged prostate. Correlation with PSA is recommended. 4. Additional findings as above. This document has been electronically signed by: Clifton Mon MD on 03/01/2025 20:53:46 Dictated By: Clifton Mon MD Signed By: <Electronically signed by Clifton Mon MD in OV> 03/01/252054 DD/ 52 TD/TT: 03/01/252052 Manager Care: Procedure Note Donotuseinterpreter, Image - 03/01/[address] [place] [address] [address] Scan Report Signed Patient: John Fitzpatrick [facility]#: [id number] : 1970Acct:[id number] Age/Sex: 54 / MADM Date: 03/01/25 Loc: HO.ED Attending Dr: Ordering Physician: Germania Wilburn MD Date of Service: 03/01/25 Procedure(s): CT abdomen pelvis w IV con Accession Number(s): [id number] cc: Germania Wilburn MD; [facility] Report Number: [id number]: Total DLP = 321.00 mGy-cm CLINICAL HISTORY: LLQ pain CT abdomen and pelvis with contrast Comparison: CT abdomen and pelvis 12/01/2024 Findings: No acute findings within visualized lung bases. Liver, spleen, adrenal glands, pancreas, and kidneys are unremarkable. Gallbladder is decompressed. Minimal intra and extrahepatic ductal prominence. No free air or free fluid. Unremarkable urinary bladder. Moderately enlarged prostate gland. Calcified but nonaneurysmal abdominal aorta and iliofemoral vessels. Stomach is unremarkable. Normal caliber small bowel. No small bowel obstruction. Moderate constipation. No acute appendicitis. No free air or free fluid. No pathologically enlarged lymph nodes. No acute osseous abnormality. No lytic or sclerotic osseous lesions. Impression: 1. No acute findings identified in the abdomen or pelvis. 2. Moderate bordering on severe constipation, slightly increased when compared to prior exam. 3. Enlarged prostate. Correlation with PSA is recommended. 4. Additional findings as above. This document has been electronically signed by: Clifton Mon MD on 03/01/2025 20:53:46 Dictated By: Clifton Mon MD Signed By: <Electronically signed by Clifton Mon MD in OV> 03/01/252054 DD/ 52 TD/TT: 03/01/252052 Manager Care: [facility] External Provider IMG CT PROCEDURES Edited Result - Final * XR KUB and Upright 2 Views (03/01/2025 5:40 PM EDT) Anatomical Region Laterality Modality Radiographic Cecelia ging 03/01/2025 5:40 PM EDT Narrative 03/01/2025 5:42 PM EDT [address] [address] XRay Report Signed Patient: John Fitzpatrick MR#: [id number] : 1970 Acct:[id number] Age/Sex: 54 / M ADM Date: 03/01/25 Loc: HO.ED Attending Dr: Ordering Physician: Fay Rosales Date of Service: 03/01/25 Procedure(s): XR KUB Accession Number(s): [id number] cc: Fay Rosales; [facility] CLINICAL HISTORY: abd pain constipation 1 view abdomen Comparison: None provided Findings: No pneumoperitoneum or pneumatosis. No abnormal calcifications. No acute fractures. IMPRESSION: The bowel gas pattern is within normal limits This document has been electronically signed by: Piyush Magallon MD on 03/01/2025 17:40:16 Dictated By: Piyush Magallon MD Signed By: <Electronically signed by Piyush Magallon MD in OV> 03/01/251740 DD/ 39 TD/TT: 03/01/251739 Manager Care: Procedure Note Donotuseinterpreter, Image - 03/01/2025 [place] [address] XRay Report Signed Patient: John Fitzpatrick AMR#: [id number] : 1970Acct:[id number] Age/Sex: 54 / MADM Date: 03/01/25 Loc: .ED Attending Dr: Ordering Physician: Fay Rosales Date of Service: 03/01/25 Procedure(s): XR KUB Accession Number(s): [id number] cc: Fay Rosales; [facility] CLINICAL HISTORY: abd pain constipation 1 view abdomen Comparison: None provided Findings: No pneumoperitoneum or pneumatosis. No abnormal calcifications. No acute fractures. IMPRESSION: The bowel gas pattern is within normal limits This document has been electronically signed by: Piyush Magallon MD on 03/01/2025 17:40:16 Dictated By: Piyush Magallon MD Signed By: <Electronically signed by Piyush Magallon MD in OV> 03/01/251740 DD/ 39 TD/TT: 03/01/251739 Manager Care: [facility] External Provider IMG XR PROCEDURES Edited Result - Final * Magnesium (03/01/2025 4:18 PM EDT) Magnesium 2.0 1.6 - 2.6 mg/dL [facility] 03/01/2025 4:18 PM EDT 03/01/2025 4:35 PM EDT us Generic External Data Provider LAB BLOOD ORDERAB LES Final Result Performing Organization Address [facility]/ZIP Co de Phone Number [facility] [address] [place] [phone] * POCT Rapid Influenza B LEMON ID NOW (02/28/2025 10:17 AM EDT) Influenza B Negative Negative, Indeterminate [facility] QC Media Lot # [id number] [facility] Lot# Expiration Date [facility] Swab 02/28/2025 10:1 7 AM EDT Sean Benavidez MD POINT OF CARE TEST EN TER/EDIT ORDERABLES Final Result Performing Organization Address [facility]/ZIP Co de Phone Number [facility] [address] [place] [phone] * POCT Rapid Influenza A LEMON ID NOW (02/28/2025 10:17 AM EDT) [facility] Signature Influenza A Negative Negative, Indeterminate [facility] QC Media Lot # [id number] [facility] Lot# Expiration Date [facility] Swab 02/28/2025 10:1 7 AM EDT Sean Benavidez MD POINT OF CARE TEST EN TER/EDIT ORDERABLES Final Result Performing Organization Address [facility]/ZIP Co de Phone Number [facility] [address] [place] [phone] * POCT Rapid Strep A LEMON ID NOW (02/28/2025 10:17 AM EDT) [facility] Rapid Strep A Screen Negative Negative, None Detected QC Media Lot # [id number] Lot# Expiration Date [id number] Swab 02/28/2025 10:1 7 AM EDT Sean Benavidez MD POINT OF CARE TEST EN TER/EDIT ORDERABLES Final Result * POCT Rapid Covid-19 BinaxNOW (02/28/2025 10:17 AM EDT) Only the most recent of2 resultswithin the time period is included. Rapid COVID Ag Negative [facility] QC Media Lot # [id number] [facility] Lot# Expiration Date [facility] Swab 02/28/2025 10:1 7 AM EDT Sean Benavidez MD POINT OF CARE TEST EN TER/EDIT ORDERABLES Final Result Performing Organization Address [facility]/ZIP Co de Phone Number [facility] [address] [place] [phone] * TSH W/Reflex to FT4 (02/25/2025 11:31 AM EDT) Only the most recent of2 resultswithin the time period is included. TSH reflex Free T4 2.73 0.32 - 4.0 uIU/mL [facility] Blood Venous blood specimen / Unknown 02/25/2025 11:31 AM EDT 02/25/2025 1:20 PM EDT [facility] [employer] LAB BLOOD ORDERABLES Final Re sult Performing Organization Address [facility]/ZIP Co de Phone Number [facility] [address] [place] [phone] * Amylase (02/25/2025 11:31 AM EDT) Amylase 84 28 - 100 U/L [facility] Blood Venous blood specimen / Unknown 02/25/2025 11:31 AM EDT 02/25/2025 1:20 PM EDT Roxana Shen DO LAB BLOOD ORDERABLES Final R esult Performing Organization Address City/[facility] Co de Phone Number [facility] [address] [place] [phone] * (ABNORMAL) Hepatic Function Panel (02/25/2025 11:31 AM EDT) Only the most recent of2 resultswithin the time period is included. Bilirubin, Total 1.5(H) 0.0 - 1.0 mg/dL [facility] Bilirubin, Direct 0.5 0.0 - 0.5 mg/dL [facility] Aspartate Amino Transferase 31 5 - 37 U/L [facility] Alanine Aminotransferase 34 0 - 40 U/L [facility] Total Protein 8.1(H) 6.5 - 8.0 g/dL [facility] Albumin Level 5.1(H) 3.5 - 5.0 g/dL [facility] Alkaline Phosphatase 57 39 - 117 U/L [facility] Blood Venous blood specimen / Unknown 02/25/2025 11:31 AM EDT 02/25/2025 1:20 PM EDT Roxana Gotti DO LAB BLOOD ORDERABLES Final R esult [facility] [address] [place] [phone] * POCT Influenza B manually resulted (02/18/2025 4:07 PM EDT) Pathologist [facility] Rapid Influenza B Ag Negative Negative, Indeterminate QC Media Lot # [id number] Lot# Expiration Date Swab 02/18/2025 4:07 PM EDT [facility] POINT OF CARE TEST ENTER/EDIT O RDERABLES Final Result * POCT Influenza A manually resulted (02/18/2025 4:07 PM EDT) Rapid Influenza A Ag Negative Negative, Indeterminate QC Media Lot # [id number] Lot# Expiration Date ,496,514 Swab Nasopharyngeal structure / Unknown 02/18/2025 4:07 PM EDT [facility] POINT OF CARE TEST ENTER/EDIT O RDERABLES Final Result * CT Head w/o Contrast (02/15/2025 11:21 AM EDT) Anatomical Region Laterality Modality Head, Neck Computed Tomogra phy 02/15/2025 11:2 1 AM EDT Narrative 02/15/2025 11:23 AM EDT [place] [address] CT Scan Report Signed Patient: John Fitzpatrick MR#: [id number] : 1970 Acct:[id number] Age/Sex: 54 / M ADM Date: 02/15/25 Loc: .ED Attending Dr: Ordering Physician: Eliazar Ashby MD Date of Service: 02/15/25 Procedure(s): CT head/brain wo IV con Accession Number(s): [id number] cc: Eliazar Ashby MD; [facility] Report Number: [id number]: Total DLP = 690.00 mGy-cm CLINICAL HISTORY: dizziness CT head without contrast Comparison: None Findings: No acute intracranial hemorrhage or midline shift. The freeman-white matter differentiation is maintained. No significant atrophy-like change or white matter disease. The paranasal sinuses and mastoid air cells are clear. The calvarium is intact. IMPRESSION: No acute intracranial findings. This document has been electronically signed by: Raghavendra Perez DO on 02/15/2025 11:21:58 Dictated By: Raghavendra Perez MD Signed By: <Electronically signed by Raghavendra Perez MD in OV> 02/15/25 1123 DD/ 1121 TD/TT: 02/15/25 112 Manager Care: Procedure Note Donotuseinterpreter, Image - 02/15/[address] [address] [address] Scan Report Signed Patient: John Fitzpatrick AMR#: [id number] : 1970Acct:[id number] Age/Sex: 54 / MADM Date: 02/15/25 Loc: HO.ED Attending Dr: Ordering Physician: Eliazar Ashby MD Date of Service: 02/15/25 Procedure(s): CT head/brain wo IV con Accession Number(s): [id number] cc: Eliazar Ashby MD; [facility] Report Number: [id number]: Total DLP = 690.00 mGy-cm CLINICAL HISTORY: dizziness CT head without contrast Comparison: None Findings: No acute intracranial hemorrhage or midline shift. The freeman-white matter differentiation is maintained. No significant atrophy-like change or white matter disease. The paranasal sinuses and mastoid air cells are clear. The calvarium is intact. IMPRESSION: No acute intracranial findings. This document has been electronically signed by: Raghavendra Perez DO on 02/15/2025 11:21:58 Dictated By: Raghavendra Perez MD Signed By: <Electronically signed by Raghavendra Perez MD in OV> 02/15/251122 DD/ 20 TD/TT: 02/15/251120 Manager Care: [facility] External Provider IMG CT PROCEDURES Edited Result - Final * High Sensitivity Troponin I (02/15/2025 9:24 AM EDT) TROPONIN I HIGH SENSITIVITY <2.7 <3.5 - 35.0 ng/L [facility] Comment:The Lemon high sens itivity Troponin-I results should beused in conjunction with other diagnostic information suchas ECG, clinical observations and information, and patientsymptoms to aid in the diagnosis of CT. 02/15/2025 9:24 AM EDT 02/15/2025 9:27 AM EDT Generic External Data Provider LAB BLOOD ORDERAB LES Final Result Performing Organization Address [facility] Co de Phone Number [facility] [address] [place] [phone] * SARS-CoV-2 RNA, Influenza A/B, and RSV RNA, Ql NAAT (02/15/2025 9:24 AM EDT) Influenza A PCR NEGATIVE Negative [facility] Influenza B PCR NEGATIVE Negative [facility] Resp Syncy Virus RNA Qual PCR NEGATIVE Negative [facility] SARS COV2 PCR NEGATIVE Negative [facility] Comment:All test results mus t [...] use by authorized laboratories.Testing performed on the Moxtra GeneXpert utilizingreal-time RT-PCR.All SARS CoV2 and positive influenza A/B results arereported to [facility]. 02/15/2025 9:24 AM EDT 02/15/2025 9:27 AM EDT Generic External Data Provider LAB MICROBIOLOGY - GENERAL ORDERABLES Final Result Performing Organization Address [facility] Co de Phone Number [facility] [address] [place] [phone] * B Type Natriuretic Peptide (BNP) (02/15/2025 9:24 AM EDT) B Type Natriuretic Peptide <10 <100 pg/mL [facility] 02/15/2025 9:24 AM EDT 02/15/2025 9:27 AM EDT us Generic External Data Provider LAB BLOOD ORDERAB LES Final Result Performing Organization Address [facility]/ZIP Co de Phone Number [facility] [address] [place] [phone] * ECG 12 lead (02/09/2025 10:58 AM EDT) Amena Levin MD - 02/09/2025 10:58 AM EDT EKG is normal us Amena Medina MD ECG ORDERABLES Final Result * Lyme Disease Ab with Reflex to Blot (IgG, IgM) (01/29/2025 10:19 AM EDT) Pathologist [facility] Lyme Antibody Screen <0.90 index [facility] Comment:Index Interpretatio n ----- < 0.90 Negative 0.90-1.09 Equivocal > 1.09 PositiveAs recommended by the Food and Drug Administration(FDA), all samples with positive or equivocalresults in a Borrelia burgdorferi antibody screenwill be tested using a blot method. Positive orequivocal screening test results should not beinterpreted as truly positive until verified as suchusing a supplemental assay (e.g., B. burgdorferi blot).The screening test and/or blot for B. burgdorferiantibodies may be falsely negative in early stagesof Lyme disease, including the period when erythemamigrans is apparent.THIS TEST WAS PERFORMED AT:[facility] [place] [phone] GONG MD Lyme Blot TNP [facility] 01/29/2025 10:1 9 AM EDT 01/29/2025 11:44 AM EDT Roxana Gotti DO LAB BLOOD ORDERABLES Final R esult Performing Organization Address [facility]/ZIP Co de Phone Number [facility] [address] [place] [phone] * Sed Rate by Modified Westergren (01/29/2025 10:19 AM EDT) Erythrocyte Sedimentation Rate 9 0 - 15 MM/HR [facility] Comment:Patients with polycy themia and many hemoglobin abnormalitiesmay have depressed sed rates whereas patients with anemiamay have elevated sed rates. Blood Venous blood specimen / Unknown 01/29/2025 10:19 AM EDT 01/29/2025 11:44 AM EDT Roxana Gotti DO LAB BLOOD ORDERABLES Final R esult Performing Organization Address [facility] Co de Phone Number [facility] [address] [place] [phone] * Rheumatoid Factor (01/29/2025 10:19 AM EDT) Rheumatoid Factor <13.0 <15.0 IU/mL [facility] Blood Venous blood specimen / Unknown 01/29/2025 10:19 AM EDT 01/29/2025 11:44 AM EDT Roxana Gotti DO LAB BLOOD ORDERABLES Final R esult Performing Organization Address [facility] Co de Phone Number [facility] [address] [place] [phone] * C-reactive Protein (01/29/2025 10:19 AM EDT) C Reactive Protein <0.10 < or = 0.50 mg/dL [facility] Blood Venous blood specimen / Unknown 01/29/2025 10:19 AM EDT 01/29/2025 11:44 AM EDT Roxana Gotti DO LAB BLOOD ORDERABLES Final R esult Performing Organization Address City/[facility] Co de Phone Number [facility] [address] [place] [phone] * ANA LUISA Screen,IFA, with Reflex to Titer and Pattern (01/29/2025 10:19 AM EDT) Anti Nuclear Antibody Screen NEGATIVE NEGATIVE [facility] Comment:ANA LUISA IFA is a first l ine screen for detecting thepresence of up to approximately 150 autoantibodies invarious autoimmune diseases. A negative ANA LUISA IFA resultsuggests an ANA LUISA-associated autoimmune disease is notpresent at this time, but is not definitive. If thereis high clinical suspicion for Sjogren's syndrome,testing for anti-SS-A/Ro antibody should be considered.Anti-Carla-1 antibody should be considered for clinicallysuspected inflammatory myopathies.AC-0: NegativeInternational Consensus on ANA LUISA Patterns(https://doi.org/10.1515/yofd-1260-7002)For additional information, please refer tohttp://education.Onepager/faq/TKE050(This link is being provided for informational/educational purposes only.)THIS TEST WAS PERFORMED AT:[facility] [place] [phone] GONG MD ANA LUISA Titer [facility] ANA LUISA Pattern [facility] ANA LUISA TITER 2 (REF LAB) [facility] ANA LUISA Pattern 2 [facility] ANA LUISA TITER 3 [facility] ANA LUISA PATTERN 3 [facility] Blood Venous blood specimen / Unknown 01/29/2025 10:19 AM EDT 01/29/2025 11:44 AM EDT us Roxana Gotti DO LAB BLOOD ORDERABLES Final R esult [facility] [address] [place] [phone] * XR CERVICAL SPINE 3V (01/29/2025 9:50 AM EDT) Anatomical Region Laterality Modality Abdomen Radiographic Cecelia ging 01/29/2025 9:50 AM EDT Narrative 01/29/2025 10:28 AM EDT [address] [address] XRay Report Signed Patient: John Fitzpatrick MR#: [id number] : 1970 Acct:[id number] Age/Sex: 54 / M ADM Date: 01/29/25 [facility]: Roxana Gotti DO Ordering Physician: Roxana Gotti DO Date of Service: 01/29/25 Procedure(s): XR cervical spine 3V Accession Number(s): [id number] cc: Roxnaa Gotti DO; [facility] [employer] EXAMINATION: XR CERVICAL SPINE CLINICAL INFORMATION: Diffuse joint pain COMPARISON: None available. TECHNIQUE: 3 views of the cervical spine were obtained. FINDINGS: No scoliosis. Normal lordosis. No fracture, compression deformities, or subluxations are identified. No suspicious bone lesion. Craniocervical junction and atlantoaxial articulation are aligned normally. The disc spaces are preserved. The facets are normally aligned. The prevertebral soft tissues are normal. XR/XR cervical spine 3V IMPRESSION: Normal cervical spine x-rays. Electronically signed by: Kavin Duncan MD 01/29/2025 10:25 AM EDT Dictated By: Kavin Duncan MD Signed By: <Electronically signed by Kavin Duncan MD in OV> 01/29/25 1025 DD/ 0950 TD/TT: 01/29/25 1010 Manager Care: Procedure Note Donotuseinterpreter, Image - 01/29/[address] [address] XRay Report Signed Patient: John Fitzpatrick AMR#: [id number] : 1970Acct:[id number] Age/Sex: 54 / MADM Date: 01/29/25 Loc: [facility] Attending Dr: Roxana Gotti DO Ordering Physician: Roxana Gotti DO Date of Service: 01/29/25 Procedure(s): XR cervical spine 3V Accession Number(s): [id number] cc: Roxana Gotti DO; [facility] [employer] EXAMINATION: XR CERVICAL SPINE CLINICAL INFORMATION: Diffuse joint pain COMPARISON: None available. TECHNIQUE: 3 views of the cervical spine were obtained. FINDINGS: No scoliosis. Normal lordosis. No fracture, compression deformities, or subluxations are identified. No suspicious bone lesion. Craniocervical junction and atlantoaxial articulation are aligned normally. The disc spaces are preserved. The facets are normally aligned. The prevertebral soft tissues are normal. XR/XR cervical spine 3V IMPRESSION: Normal cervical spine x-rays. Electronically signed by: Kavin Duncan MD 01/29/2025 10:25 AM EDT Dictated By: Kavin Duncan MD Signed By: <Electronically signed by Kavin Duncan MD in OV> 01/29/25 1025 DD/ 0950 TD/TT: 01/29/25 1010 Manager Care: Roxana Gotti DO IMG XR PROCEDURES Final Resu lt * XR Ankle 3+ Views Right (01/29/2025 9:50 AM EDT) Anatomical Region Laterality Modality Lower Extremities, Ankle Right Radiogr aphic Imaging 01/29/2025 9:50 AM EDT Narrative 01/29/2025 10:20 AM EDT [address] [address] XRay Report Signed Patient: John Fitzpatrick MR#: [id number] : 1970 Acct:[id number] Age/Sex: 54 / M ADM Date: 01/29/25 Loc: [facility] Attending Dr: Roxana Gotti DO Ordering Physician: Roxana Gotti DO Date of Service: 01/29/25 Procedure(s): XR ankle RT min 3V Accession Number(s): [id number] cc: Roxana oGtti DO; [facility] [employer] EXAMINATION: XR ANKLE 3 OR MORE VIEWS RIGHT HISTORY: diffuse joint pain COMPARISON: There are no prior studies available for comparison. FINDINGS: Three views of the right ankle are submitted. Osseous mineralization is normal. There is no fracture or dislocation. The joint spaces are preserved. The soft tissues are unremarkable. XR/XR ankle RT min 3V IMPRESSION: Unremarkable examination of the right ankle. Electronically signed by: Jean Pierre Adamson MD 01/29/2025 10:17 AM EDT RP Dictated By: Jean Pierre Adamson MD Signed By: <Electronically signed by Jean Pierre Adamson MD in OV> 01/29/25 1017 DD/ 0950 TD/TT: 01/29/25 1010 Manager Care: Procedure Note Donotuseinterpreter, Image - 01/29/2025 [place] [address] XRay Report Signed Patient: John Fitzpatrick [facility]#: [id number] : 1970Acct:[id number] Age/Sex: 54 / MADM Date: 01/29/25 Loc: .[facility] Attending Dr: Roxana Gotti DO Ordering Physician: Roxana Gotti DO Date of Service: 01/29/25 Procedure(s): XR ankle RT min 3V Accession Number(s): [id number] cc: Roxana Gotti DO; [facility] [employer] EXAMINATION: XR ANKLE 3 OR MORE VIEWS RIGHT HISTORY: diffuse joint pain COMPARISON: There are no prior studies available for comparison. FINDINGS: Three views of the right ankle are submitted. Osseous mineralization is normal. There is no fracture or dislocation. The joint spaces are preserved. The soft tissues are unremarkable. XR/XR ankle RT min 3V IMPRESSION: Unremarkable examination of the right ankle. Electronically signed by: Jean Pierre Adamson MD 01/29/2025 10:17 AM EDT RP Dictated By: Jean Pierre Adamson MD Signed By: <Electronically signed by Jean Pierre Adamson MD in OV> 01/29/25 1017 DD/ 0950 TD/TT: 01/29/25 1010 Manager Care: Roxana Gotti DO IMG XR PROCEDURES Final Resu lt * XR Ankle 3+ Views Left (01/29/2025 9:50 AM EDT) Anatomical Region Laterality Modality Lower Extremities, Ankle Left Radiogr aphic Imaging 01/29/2025 9:50 AM EDT Narrative 01/29/2025 10:19 AM EDT [address] [address] XRay Report Signed Patient: John Fitzpatrick MR#: [id number] : 1970 Acct:[id number] Age/Sex: 54 / M ADM Date: 01/29/25 [facility]: Roxana Gotti DO Ordering Physician: Roxana Gotti DO Date of Service: 01/29/25 Procedure(s): XR ankle LT min 3V Accession Number(s): [id number] cc: Roxana Gotti DO; [facility] [employer] EXAMINATION: XR ANKLE 3 OR MORE VIEWS LEFT HISTORY: diffuse joint pain COMPARISON: There are no prior studies available for comparison. FINDINGS: Three views of the left ankle are submitted. Osseous mineralization is normal. There is no fracture or dislocation. The joint spaces are preserved. The soft tissues are unremarkable. XR/XR ankle LT min 3V IMPRESSION: Unremarkable examination of the left ankle. Electronically signed by: Jean Pierre Adamson MD 01/29/2025 10:17 AM EDT Dictated By: Jean Pierre Adamson MD Signed By: <Electronically signed by Jean Pierre Adamson MD in OV> 01/29/25 1017 DD/ 0950 TD/TT: 01/29/25 1010 Manager Care: Procedure Note Donotuseinterpreter, Image - 01/29/[address] [address] XRay Report Signed Patient: John Fitzpatrick AMR#: [id number] : 1970Acct:[id number] Age/Sex: 54 / MADM Date: 01/29/25 [facility]: Roxana Gotti DO Ordering Physician: Roxana Gotti DO Date of Service: 01/29/25 Procedure(s): XR ankle LT min 3V Accession Number(s): [id number] cc: Roxana Gotti DO; [facility] [employer] EXAMINATION: XR ANKLE 3 OR MORE VIEWS LEFT HISTORY: diffuse joint pain COMPARISON: There are no prior studies available for comparison. FINDINGS: Three views of the left ankle are submitted. Osseous mineralization is normal. There is no fracture or dislocation. The joint spaces are preserved. The soft tissues are unremarkable. XR/XR ankle LT min 3V IMPRESSION: Unremarkable examination of the left ankle. Electronically signed by: Jean Pierre Adamson MD 01/29/2025 10:17 AM EDT Dictated By: Jean Pierre Adamson MD Signed By: <Electronically signed by Jean Pierre Adamson MD in OV> 01/29/25 1017 DD/ 0950 TD/TT: 01/29/25 1010 Manager Care: Roxana Gotti DO IMG XR PROCEDURES Final Resu lt * XR Shoulder 2+ Views Right (01/29/2025 9:50 AM EDT) Anatomical Region Laterality Modality Upper Extremities, Shoulder Right Radi ographic Imaging 01/29/2025 9:50 AM EDT Narrative 01/29/2025 10:25 AM EDT [facility] [address] [place] [address] XRay Report Signed Patient: John Fitzpatrick MR#: [id number] : 1970 Acct:[id number] Age/Sex: 54 / M ADM Date: 01/29/25 Loc: [facility] Attending Dr: Roxana Gotti DO Ordering Physician: Roxana Gotti DO Date of Service: 01/29/25 Procedure(s): XR shoulder RT min 2V Accession Number(s): [id number] cc: Roxana Gotti DO; [facility] EXAMINATION: XR SHOULDER, RIGHT CLINICAL INFORMATION: diffuse joint pain COMPARISON: None available. TECHNIQUE: Three views of the right shoulder. FINDINGS: Normal bone mineralization. No fracture, dislocation, or suspicious bone lesion. Normal alignment. The glenohumeral joint is normal. The AC joint is normal. There is a type II acromion. No undersurface spurring. The subacromial space is preserved. Remainder of the soft tissue and bony structures appear normal. XR/XR shoulder RT min 2V IMPRESSION: Normal right shoulder. Electronically signed by: Kavin Duncan MD 01/29/2025 10:22 AM EDT Dictated By: Kavin Duncan MD Signed By: <Electronically signed by Kavin Duncan MD in OV> 01/29/25 1022 DD/ 0950 TD/TT: 01/29/25 1010 Manager Care: Procedure Note Donotuseinterpreter, Image - 01/29/[address] [address] XRay Report Signed Patient: John Fitzpatrick [facility]#: [id number] : 1970Acct:[id number] Age/Sex: 54 / MADM Date: 01/29/25 Loc: HO.[facility] Attending Dr: Roxana Gotti DO Ordering Physician: Roxana Gotti DO Date of Service: 01/29/25 Procedure(s): XR shoulder RT min 2V Accession Number(s): [id number] cc: Roxana Gotti DO; [facility] EXAMINATION: XR SHOULDER, RIGHT CLINICAL INFORMATION: diffuse joint pain COMPARISON: None available. TECHNIQUE: Three views of the right shoulder. FINDINGS: Normal bone mineralization. No fracture, dislocation, or suspicious bone lesion. Normal alignment. The glenohumeral joint is normal. The AC joint is normal. There is a type II acromion. No undersurface spurring. The subacromial space is preserved. Remainder of the soft tissue and bony structures appear normal. XR/XR shoulder RT min 2V IMPRESSION: Normal right shoulder. Electronically signed by: Kavin Duncan MD 01/29/2025 10:22 AM EDT Dictated By: Kavin Duncan MD Signed By: <Electronically signed by Kavin Duncan MD in OV> 01/29/25 1022 DD/ 0950 TD/TT: 01/29/25 1010 Manager Care: us Roxana Gotti DO IMG XR PROCEDURES Final Resu lt * XR Shoulder 2+ Views Left (01/29/2025 9:50 AM EDT) Anatomical Region Laterality Modality Upper Extremities, Shoulder Left Radi ographic Imaging 01/29/2025 9:50 AM EDT Narrative 01/29/2025 10:25 AM EDT [address] [address] XRay Report Signed Patient: John Fitzpatrick MR#: [id number] : 1970 Acct:[id number] Age/Sex: 54 / M ADM Date: 01/29/25 Loc: .[facility] Attending Dr: Roxana Gotti DO Ordering Physician: Roxana Gotti DO Date of Service: 01/29/25 Procedure(s): XR shoulder LT min 2V Accession Number(s): [id number] cc: Roxana Gotti DO; [facility] [employer] EXAMINATION: XR SHOULDER, LEFT CLINICAL INFORMATION: diffuse joint pain COMPARISON: None available. TECHNIQUE: AP external rotation, Grashey, scapular Y, and axillary views of the left shoulder. FINDINGS: Normal bone mineralization. No fracture, dislocation, or suspicious bone lesion. Normal alignment. The glenohumeral joint is normal. The AC joint is normal. There is a type II acromion. No undersurface spurring. The subacromial space is preserved. Remainder of the soft tissue and bony structures appear normal. XR/XR shoulder LT min 2V IMPRESSION: Normal left shoulder. Electronically signed by: Kavin Duncan MD 01/29/2025 10:22 AM EDT RP Dictated By: Kavin Duncan MD Signed By: <Electronically signed by Kavin Duncan MD in OV> 01/29/25 1022 DD/ 0950 TD/TT: 01/29/25 1010 Manager Care: Procedure Note Donotuseinterpreter, Image - 01/29/[address] [address] XRay Report Signed Patient: John Fitzpatrick AMR#: [id number] : 1970Acct:[id number] Age/Sex: 54 / MADM Date: 01/29/25 Loc: .[facility] Attending Dr: Roxana Gotti DO Ordering Physician: Roxana Gotti DO Date of Service: 01/29/25 Procedure(s): XR shoulder LT min 2V Accession Number(s): [id number] cc: Roxana Gotti DO; [facility] EXAMINATION: XR SHOULDER, LEFT CLINICAL INFORMATION: diffuse joint pain COMPARISON: None available. TECHNIQUE: AP external rotation, Grashey, scapular Y, and axillary views of the left shoulder. FINDINGS: Normal bone mineralization. No fracture, dislocation, or suspicious bone lesion. Normal alignment. The glenohumeral joint is normal. The AC joint is normal. There is a type II acromion. No undersurface spurring. The subacromial space is preserved. Remainder of the soft tissue and bony structures appear normal. XR/XR shoulder LT min 2V IMPRESSION: Normal left shoulder. Electronically signed by: Kavin Duncan MD 01/29/2025 10:22 AM EDT RP Dictated By: Kavin Duncan MD Signed By: <Electronically signed by Kavin Duncan MD in OV> 01/29/25 1022 DD/ 0950 TD/TT: 01/29/25 1010 Manager Care: Result [facility] Roxana Gotti DO IMG XR PROCEDURES Final Resu lt * Hepatitis C Antibody with Reflex to HCV, RNA, Quantitative, Real-Time PCR (01/06/2025 10:11 AM EDT) Hepatitis C Antibody Nonreactive Nonreactive [facility] Comment:Antibodies to HCV no t detected; does not exclude early acuteHCV infection. Blood Venous blood specimen / Unknown 01/06/2025 10:11 AM EDT 01/06/2025 11:07 AM EDT Result [facility] BLOOD ORDERABLES Final Resul t Performing Organization Address [facility] Co de Phone Number [facility] [address] [place] [phone] * Hemoglobin A1c (01/06/2025 10:11 AM EDT) Hemoglobin A1c 5.7 <6.0 % [facility] Comment:Hemoglobin A1C Refer ence Range Adults: 4.8 - 6.0 % Non diabetic: < 6.0 % Goal: < 7.0 %Additional Action Suggested: > 8.0 %Note: Hemoglobin A1c results are invalid for patients with abnormal amounts of HbF. Blood transfusions may impact the HbA1c concentration in the patient sample. Estimated Average Glucose 117 mg/dL [facility] Comment:eAG = Estimated ave rage glucose which is %A1C expressed asaverage glucose, using the formula of the J6Q-LyvslyeDzrcaum Glucose study (ADAG), Diabetes Care, Vol.31,#8,2007 Blood Venous blood specimen / Unknown 01/06/2025 10:11 AM EDT 01/06/2025 11:07 AM EDT [facility] LAB BLOOD ORDERABLES Final Re sult Performing Organization Address [facility] Co de Phone Number [facility] [address] [place] [phone] * Lipid Panel, Standard (03/19/2024 9:34 AM EDT) Triglycerides 66 <150 mg/dL [facility] Comment:Desirable Triglyceri de: less than 150 mg/dLBorderline High Triglyceride 150-199 mg/dLHigh Triglyceride: 200-499 mg/dLVery High Triglyceride: greater than or equal to 5OO mg/dL Cholesterol 112 <200 mg/dL [facility] Comment:Desirable Cholestero l: less than 200 mg/dLBorderline High Cholesterol: 200-239 mg/dLHigh Cholesterol: greater than 239 mg/dL LDL Cholesterol Calculated 58 <100 mg/dL [facility] Comment:Desirable LDL: less than 100 mg/dLNear Optimal/Above Optimal LDL: 110- 129 mg/dLBorderline High LDL: 130-159 mg/dLHigh LDL: 160-189 mg/dLVery High LDL: greater than or equal to 190 mg/dL HDL Cholesterol 41 >40 mg/dL [facility] Comment:Desirable HDL: great er than 40 mg/dL Note: This HDL assay may give artificially low results in patients with liver disease. Blood Venous blood specimen / Unknown 03/19/2024 9:34 AM EDT 03/19/2024 11:12 AM EDT us Roxana Gotti DO LAB BLOOD ORDERABLES Final R esult [facility] [address] [place] [phone] * HIV-1 RNA, Quantitative, Real-Time PCR (03/22/2023 11:53 AM EDT) HIV RNA PCR Qn Copies NOT DETECTED NOT DETECTED copies/mL [facility] HIV RNA PCR Qn Log Copies NOT DETECTED NOT DETECTED [facility] Comment:Result Units: Log co pies/mLThis test was performed using Real-Time Polymerase ChainReaction.Reportable Range: 20 copies/mL to 10,000,000 copies/mL(1.30 log copies/mL to 7.00 log copies/mL).THIS TEST WAS PERFORMED AT:[facility] [place] [phone] GONG MD Blood Venous blood specimen / Unknown 03/22/2023 11:53 AM EDT 03/22/2023 1:32 PM EDT Jessica Guillen [employer] LAB BLOOD ORDERABLES Final Res ult [facility] [address] [place] [address] [phone] from Last 3 Months or Most Recently Relevant to Health Maintenance Insurance [facility] C3 DENTAL-[facility] MEDICAID STAND ADULT Care Teams [employer] Relationship Specialty Start Date End Date Haily Robb FNP [address] [place] [phone] PCP - General Family Medicine 05/01/22
--- OUTSIDE RECORDS SUMMARY | 2025-04-29 11:17 | XMS_ITS | Encounter Summary ---
Author Organization [employer] Address [address] [facility] [address] [address] 7[address] [place] [address] Care Team Providers Care Red Hat Open Stack Administrator Name Role Phone Clarisse Haily VICE PRESIDENT FOR PHILANTHROPY Primary Care Provider [phone] Encounter Details Date Type Department Care Team (Latest Contact Info) Description 04/27/2025 Travel Social History Tobacco Use Types Packs/Day [...] your housing situation today? I have tammy kinght 04/23/[address] you li [...] documented as of this encounter Care Teams [employer] Hat Open Stack Administrator Relationship Specialty Start Date End Date Haily Robb FNP [address] [place] [address] PCP - General Family Medicine 05/01/22 documented as of this encounter
--- OUTSIDE RECORDS SUMMARY | 2025-04-29 11:17 | XMS_ITS | Encounter Summary ---
Author Organization [employer] Address [address] [facility] [address] 7t [place] [address] Care Team Providers Care Dust Collector Attendant Name Role Phone Clarisse Haily FABRIC NORMALIZER Primary Care Provider [phone] Encounter Details Date Type Department Care Team ([facility] st Contact Info) Description 04/29/2025 Orders Only GENERIC EXTERNAL DATA [...] 1 VIEW Routine 04/29/2025 9:59 AM EDT CBC WITH AUTO DIFFERENTIAL Routine 04/29/2025 9:58 AM EDT BASIC METABOLIC PANEL Routine 04/29/2025 9:58 AM EDT documented in this encounter Results * XR Chest 1 View (04/29/2025 9:59 AM EDT) Anatomical Region Laterality Modality Chest Radiographic Cecelia ging 04/29/2025 9:59 AM EDT Narrative 04/29/2025 11:06 AM EDT [address] [address] XRay Report Signed Patient: John Fitzpatrick MR#: [id number] : 1970 Acct:[id number] Age/Sex: 55 / M ADM Date: 04/29/25 Loc: HO.ED Attending Dr: Ordering Physician: Generic ED Physician Date of Service: 04/29/25 Procedure(s): XR chest 1V Accession Number(s): [id number] cc: Generic ED Physician; [facility] FABRIC NORMALIZER EXAMINATION: XR CHEST CLINICAL INFORMATION: chest pain [...] 04/29/25 1102 DD/ 0959 TD/TT: 04/29/25 1055 Song Writer: Procedure Note Donotuseinterpreter, Image - 04/29/2025 [place] [address] XRay Report Signed Patient: John Fitzpatrick AMR#: [id number] : 1970Acct:[id number] Age/Sex: 55 / MADM Date: 04/29/25 Loc: .ED Attending Dr: Ordering Physician: Generic ED Physician Date of Service: 04/29/25 Procedure(s): XR chest 1V Accession Number(s): [id number] cc: Generic ED Physician; [facility] FABRIC NORMALIZER EXAMINATION: XR CHEST CLINICAL INFORMATION: chest pain [...] 04/29/25 1102 DD/ 0959 TD/TT: 04/29/25 1055 Song Writer: [facility] External Provider IMG XR PROCEDURES Edited Result - Final * (ABNORMAL) Basic Metabolic Panel (04/29/2025 9:58 AM EDT) Sodium 141 135 - 145 mmol/L [facility] Potassium 4.5 3.3 - 5.1 mmol/L [facility] Chloride 102 96 - 108 mmol/L [facility] Carbon Dioxide 33(H) 22 - 29 mmol/L [facility] Anion Gap 11(L) 12 - 20 [facility] Urea Nitrogen (BUN) 9 9 - 16 mg/dL [facility] Creatinine, Serum 0.91 0.5 - 1.4 mg/dL [facility] Creatinine Clr Calc Pharmacy 75.5 [facility] Comment:eGFR (calculated fro m the MDRD study equation) and eCrCl(calculated from the Cockcroft-Gault equation) are based ondifferent parameters and may not yield comparable results.If eCrCl result is absurd, please check patient'sheight/weight. Estimated Glomerular Filt Rate >60 [facility] Comment:Chronic Kidney Disea se: Estimated GFR < 60 mL/min/1.51j4Uocjdx Kidney Disease: Estimated GFR < 15 mL/min/1.73m2 Glucose 99 60 - 115 mg/dL [facility] Calcium 9.3 8.4 - 10.2 mg/dL [facility] 04/29/2025 9:58 AM EDT 04/29/2025 10:01 AM EDT Generic External Data Provider LAB BLOOD ORDERAB LES Final Result [facility] [address] [place], [place] [phone] * (ABNORMAL) CBC auto differential (04/29/2025 9:58 AM EDT) White Blood Count 5.9 4.8 - 10.8 X10*3/uL [facility] Red Blood Count 3.81(L) 4.60 - 5.80 X10*6/uL [facility] Hemoglobin 12.3(L) 14.0 - 18.0 g/dl [facility] Hematocrit 36.1(L) 42.0 - 52.0 % [facility] Mean Corpuscular Volume 94.8 80.0 - 98.0 fL [facility] Mean Corpuscular Hemoglobin 32.3 27.0 - 33.0 pg [facility] Mean Corpuscular HGB Conc 34.1 31.0 - 36.0 g/dl [facility] Red Cell Distribution Width 12.8 11.0 - 16.0 % [facility] Platelet Count 164 160 - 400 X10*3/uL [facility] Mean Platelet Volume 10.7 9.4 - 12.4 fL [facility] Neutrophils Percent Auto 73.1(H) 45 - 73 % [facility] Imm Gran Pct Auto 0.2 0.0 - 0.4 % [facility] Lymphocytes Percent Auto 18.5(L) 20 - 40 % [facility] Monocytes Percent Auto 6.2 2 - 11 % [facility] Eosinophils Percent Auto 1.5 0 - 4 % [facility] Basophils Percent Auto 0.5 0 - 2 % [facility] NRBC Pct Auto 0.0 0.0 - 0.2 /100WBC [facility] Neutrophils Absolute Auto 4.3 2.0 - 8.3 x10*3/uL [facility] Imm Gran Abs Auto 0.01 0.00 - 0.03 X10*3/uL [facility] Lymphocytes Absolute Auto 1.1(L) 1.2 - 4.9 X10*3/uL [facility] Monocytes Absolute Auto 0.4 0.1 - 1.2 X10*3/uL [facility] Eosinophils Absolute Auto 0.1 0.0 - 0.4 X10*3/uL [facility] Basophils Absolute Auto 0.0 0.0 - 0.2 X10*3/uL [facility] NRBC Abs Auto 0.000 0.0 - 0.012 X10*3/uL [facility] 04/29/2025 9:58 AM EDT 04/29/2025 10:01 AM EDT us Generic External Data Provider LAB BLOOD ORDERAB LES Final Result [facility] [address] [place] [address] [phone] documented in this encounter Visit Diagnoses Not on filedocumented in this encounter Additional Health Concerns Assessment Noted Time PHQ-9 Depression Total Score: 21 03/30/ 025 3:59 PM EDT documented as of this encounter Care Teams Dust Collector Attendant Relationship Specialty Start Date End Date Haily Robb FNP [address] [place] [address] PCP - General Family Medicine 05/01/22 documented as of this encounter
--- OUTSIDE RECORDS SUMMARY | 2025-04-29 11:17 | XMS_ITS | Encounter Summary ---
Author Organization [employer] Address [address] [facility] 7t [place] [address] Care Team Providers Care Strap Sewer Name Role Phone [facility] Primary Care Provider [phone] Reason for Visit * Reason Onset Date Comments Triage 09/20/2022 Encounter Details Date Type Department Care Team ([facility] st Contact Info) Description 09/20/2022 Telephone [facility] MED[facility] 230 [place], [place] [phone] [facility] 230 [place] [address] Triage Social History Tobacco Use Types Packs/Day [...] 09/20/2022 11:55 AM EST Triage call with [employer] Mgr ID [id number] Pt reports an area on back that [...] No high acuity concerns reported by caller OCCITAN SPEAKER The caller accepted this outcome documented in this encounter Plan of Treatment Not on file documented as of this encounter Visit Diagnoses Not on filedocumented in this encounter Care Teams Strap Sewer Relationship Specialty Start Date End Date Haily Robb FNP [address] [place] [address] PCP - General Family Medicine 05/01/22 documented as of this encounter
--- OUTSIDE RECORDS SUMMARY | 2025-04-29 11:17 | XMS_ITS | Encounter Summary ---
Author Organization [employer] Address [address] [facility] 7t [place] [address] Care Team Providers Care Application Development Director Name Role Phone Haily Robb Primary Care Provider [phone] Encounter Details Date Type Department Care Team (Latest Contact Info) Description 06/01/2022 Abstract [facility] CONVERSIONS Dental, Provider, DDS Social History Tobacco [...] on filedocumented in this encounter Care Teams Application Development Director Relationship Specialty Start Date End Date Haily Robb FNP [address] [place] [address] PCP - General Family Medicine 05/01/22 documented as of this encounter
--- OUTSIDE RECORDS SUMMARY | 2025-04-29 11:17 | XMS_ITS | Encounter Summary ---
Author Organization [employer] Address [address] [facility] 7t [place] [address] Care Team Providers Care Wall To Wall Carpet Installer Name Role Phone [place] [facility] Primary Care Provider [phone] Reason for Visit * Reason Onset Date Comments Med Refill 12/13/2023 Encounter Details Date Type Department Care Team ([facility] st Contact Info) Description 12/13/2023 Telephone [facility]INE 230 [place], [place] [phone] [facility] 230 [place] [address] Med Refill Social History Tobacco Use Types [...] 10:24 AM EDT Medication was sent to [facility] on 11/09/23 with 2 refills. * Telephone Encounter - Christine Taylor - 12/13/2023 10:19 AM EDT TC from pt requesting medication refill. Medications needing refill : melatonin 5 MG tablet To be sent to: [facility] - [place], [place] - [address] [facility] documented in this encounter Plan of Treatment Not on file documented as of this encounter Visit Diagnoses Not on filedocumented in this encounter Additional Health Concerns Assessment Noted Time PHQ-9 Depression Total Score: 0 08/15/20 23 3:52 PM EST documented as of this encounter Care Teams Wall To Wall Carpet Installer Relationship Specialty Start Date End Date Haily Robb FNP [address] [place] [address] PCP - General Family Medicine 05/01/22 documented as of this encounter
--- OUTSIDE RECORDS SUMMARY | 2025-04-29 11:17 | XMS_ITS | Encounter Summary ---
Author Organization [employer] Address 75 [facility] 7t [place] [address] Care Team Providers Care Assistant Tennis Coach Name Role Phone Clarisse [facility] Primary Care Provider [phone] Reason for Visit * Reason Onset Date Comments Nurse Triage 02/11/2024 Encounter Details Date Type Department Care Team ([facility] st Contact Info) Description 02/11/2024 Telephone [facility] 230 [place], [place] [phone] [facility] 230 [place] [address] Nurse Triage Social History Tobacco Use Types [...] the past 12 months, has t he [employer], gas, oil or water company threatened to [...] EDT Triage call returned to patient with [place] spanish medical interpreter [id number]. Patient reports ongoing issue withleft eye and [...] and she would like him referred to [facility] Coin Wrapping Machine Operator. No diagnosis in chart.Advised of [facility] for evaluation today. Lab [...] Reason: Other Override Notes: Being treated with clinical product specialist with appt coming in 03/11/24 Video [...] involuntary movements The caller accepted this outcome Tajik speaker documented in this encounter Plan of [...] documented as of this encounter Care Teams Assistant Tennis Coach Relationship Specialty Start Date End Date Haily Robb FNP [address] [place] [address] PCP - General Family Medicine 05/01/22 documented as of this encounter
--- OUTSIDE RECORDS SUMMARY | 2025-04-29 11:17 | XMS_ITS | Encounter Summary ---
Author Organization [employer] Address [address] [facility] 7t [place] [address] Care Team Providers Care Financial Analyst Intern Name Role Phone Clarisse [facility] Primary Care Provider [phone] Reason for Visit * Reason Onset Date Comments Results 02/26/2025 Encounter Details Date Type Department Care Team ([facility] st Contact Info) Description 02/26/2025 Telephone [facility] 230 [place], [place] [phone] [facility] 230 [place] [address] Results Social History Tobacco Use Types Packs/Day [...] the past 12 months, has t he [employer], gas, oil or water company threatened to [...] encounter Miscellaneous Notes * Telephone Encounter - Yelena Goodwin - 02/27/2025 11:18 AM EDT Tc from pt requesting a call back regarding prior message. Contact pt at [phone] * Telephone Encounter - Claudette Ashley - 02/26/2025 12:59 PM EDT TC from pt requesting call back regarding Results. Type of results: Lab Date when done: 02/25/25 Facility: [facility] Contact pt at [phone] (estonian) documented in this encounter Plan of Treatment [...] documented as of this encounter Care Teams Financial Analyst Intern Relationship Specialty Start Date End Date Haily Robb FNP [address] [place] [address] PCP - General Family Medicine 05/01/22 documented as of this encounter
--- OUTSIDE RECORDS SUMMARY | 2025-04-29 11:17 | XMS_ITS | Encounter Summary ---
Author Organization [employer] Address [address] [facility] [address]t [place] [address] Care Team Providers Care Bracelet Form Coverer Name Role Phone Clarisse [facility] Primary Care Provider [phone] Reason for Visit * Reason Onset Date Comments triage 11/10/2022 Encounter Details Date Type Department Care Team ([facility] st Contact Info) Description 11/10/2022 Telephone [facility] MED[facility]INE 230 [place], [place] [phone] [facility] 230 [place] [address] triage Social History Tobacco Use Types Packs/Day [...] in office. Pt agrees to come into [facility] for exam. Pt also advised [...] question The caller accepted this outcome speaks swedish documented in this encounter Plan of Treatment Not on file documented as of this encounter Visit Diagnoses Not on filedocumented in this encounter Additional Health Concerns Assessment Noted Time PHQ-9 Depression Total Score: 0 11/03/19 10:32 AM EST documented as of this encounter Care Teams Bracelet Form Coverer Relationship Specialty Start Date End Date Haily Robb FNP [address] [place] [address] PCP - General Family Medicine 05/01/22 documented as of this encounter
--- OUTSIDE RECORDS SUMMARY | 2025-04-29 11:17 | XMS_ITS | Encounter Summary ---
Author Organization [employer] Address [address] [facility] [address] 7t [place] [address] Care Team Providers Care Environment Coordinator Name Role Phone Clarisse Haily [employer] DEFENSE ARTILLERY SENIOR SERGEANT Primary Care Provider [phone] Reason for Visit * Reason Comments Med Refill Encounter Details Date Type Department Care Team (Late st Contact Info) Description 04/02/2023 Refill [facility] 230 [place], [place] [phone] Hollis Rutledge MD 230 [place] [address] Social History Tobacco Use Types Packs/Day Years [...] documented as of this encounter Care Teams Environment Coordinator Relationship Specialty Start Date End Date [facility] ANETA Johansen 230 [place] [address] PCP - General Family Medicine 05/01/22 documented as of this encounter
--- OUTSIDE RECORDS SUMMARY | 2025-04-29 11:17 | XMS_ITS | Encounter Summary ---
Author Organization [employer] Address [address] [facility] 7t [place] [address] Care Team Providers Care Clinical Rehabilitation Liaison Name Role Phone Haily Robb Primary Care Provider [phone] Encounter Details Date Type Department Care Team (Latest Contact Info) Description 06/16/2020 Abstract C CONVERSIONS Dental, Provider, DDS Social History Tobacco [...] on filedocumented in this encounter Care Teams Clinical Rehabilitation Liaison Relationship Specialty Start Date End Date Haily Robb FNP [address] [place] [address] PCP - General Family Medicine 05/01/22 documented as of this encounter
--- OUTSIDE RECORDS SUMMARY | 2025-04-29 11:17 | XMS_ITS | Encounter Summary ---
Author Organization [employer] Address [address] [facility] 7t [place] [address] Care Team Providers Care Embedded Firmware Engineer Name Role Phone Clarisse [facility] Primary Care Provider [phone] Reason for Visit * Reason Onset Date Comments Appointment Request 10/08/2023 Encounter Details Date Type Department Care Team ([facility] st Contact Info) Description 10/08/2023 Telephone [facility] MEDICINE 230 [place], [place] [phone] [place] [facility] 230 [place] [address] Appointment Request Social History Tobacco Use Types [...] gotten any better. Please contact pt at [phone] documented in this encounter Plan of Treatment Not on file documented as of this encounter Visit Diagnoses Not on filedocumented in this encounter Additional Health Concerns Assessment Noted Time PHQ-9 Depression Total Score: 0 08/15/20 23 3:52 PM EST documented as of this encounter Care Teams Embedded Firmware Engineer Relationship Specialty Start Date End Date Haily Robb FNP [address] [place] [address] PCP - General Family Medicine 05/01/22 documented as of this encounter
--- OUTSIDE RECORDS SUMMARY | 2025-04-29 11:17 | XMS_ITS | Encounter Summary ---
Author Organization [employer] Address 75 [facility] 7t [place] [address] Care Team Providers Care American Indian Studies Professor Name Role Phone [facility] Primary Care Provider [phone] Reason for Visit * Reason Comments Med Refill Encounter Details Date Type Department Care Team ([facility] st Contact Info) Description 08/28/2024 Refill [facility]INE 230 [place], [place] [phone] [facility] 230 [place] [address] Mixed anxiety and depressive disorder Social History [...] documented as of this encounter Care Teams American Indian Studies Professor Relationship Specialty Start Date End Date Haily Robb FNP [address] [place] [address] PCP - General Family Medicine 05/01/22 documented as of this encounter
--- OUTSIDE RECORDS SUMMARY | 2025-04-29 11:17 | XMS_ITS | Clinical Summary ---
Author Organization [facility] Address [address] [place] [address] Phone Care Team Providers Care Statistics Professor Name Role Phone [facility] Primary Care Provider [phone] Medications polyethylene glycol (Golytely) 236-22.74-6.74 -5.86 gram [...] Phone Billing Address Personal/Family Self 1970 [address] [facility] [address] [place] [address] MEDICAID - [place] Care Teams Statistics Professor Relationship Specialty Start Date End Date [facility] [address] [phone] PCP - General 05/20/24
--- OUTSIDE RECORDS SUMMARY | 2025-04-29 11:17 | XMS_ITS | Encounter Summary ---
Author Organization [employer] Address [address] [facility] [address] 7t [place] [address] Care Team Providers Care Data Report Analyst Name Role Phone [facility] Primary Care Provider [phone] Reason for Visit * Reason Onset Date Comments Medication Question 08/24/2022 Encounter Details Date Type Department Care Team ([facility] st Contact Info) Description 08/24/2022 Telephone [facility] MED[facility]INE 230 [place] [address] [facility] 230 [place] [address] Medication Question Social History Tobacco Use Types [...] requesting a call back. States went to fruit or nut picker his medication and they gave him vitamin C and he would like to know if he should be taking them again . Please call to clarify. documented in this encounter Plan of Treatment Not on file documented as of this encounter Visit Diagnoses Not on filedocumented in this encounter Care Teams Data Report Analyst Relationship Specialty Start Date End Date Haily Robb FNP [address] [place] [address] PCP - General Family Medicine 05/01/22 documented as of this encounter
--- OUTSIDE RECORDS SUMMARY | 2025-04-29 11:17 | XMS_ITS | Encounter Summary ---
Author Organization [employer] Address [address] [facility] [address] [place] [address] Care Team Providers Care Physical Therapist Assistant Name Role Phone [place] [facility] Primary Care Provider [phone] Reason for Visit * Reason Onset Date Comments Medication Question 01/16/2023 Encounter Details Date Type Department Care Team ([facility] st Contact Info) Description 01/16/2023 Telephone [facility] MED[facility]INE 230 [place], [place] [phone] [facility] 230 [place] [address] Medication Question Social History Tobacco Use Types [...] documented as of this encounter Care Teams Physical Therapist Assistant Relationship Specialty Start Date End Date Haily Robb FNP [address] [place] [address] PCP - General Family Medicine 05/01/22 documented as of this encounter
--- OUTSIDE RECORDS SUMMARY | 2025-04-29 11:17 | XMS_ITS | Encounter Summary ---
Author Organization [employer] Address 75 [facility] 7t [place] [address] Care Team Providers Care Crane Man Name Role Phone [facility] Primary Care Provider [phone] Reason for Visit * Reason Onset Date Comments Med Refill 09/25/2023 Encounter Details Date Type Department Care Team ([facility] st Contact Info) Description 09/25/2023 Telephone [facility] MEDICINE 230 [place], [place] [phone] [facility] 230 [place] [address] Med Refill Social History Tobacco Use Types [...] the past 12 months, has t he [employer], gas, oil or water company threatened to [...] 200 MG/ML injection To be sent to: [facility] - [place], [place] - [address] documented in this encounter Plan of Treatment Not on file documented as of this encounter Visit Diagnoses Not on filedocumented in this encounter Additional Health Concerns Assessment Noted Time PHQ-9 Depression Total Score: 0 08/15/20 23 3:52 PM EST documented as of this encounter Care Teams Crane Man Relationship Specialty Start Date End Date Haily Robb FNP 230 [place] [address] PCP - General Family Medicine 05/01/22 documented as of this encounter
[2025-04-29 11:19] LABS: Troponin-I High Sensitivity < 2.7 ng/L (<3.5-35.0)
--- NOTE | 2025-04-29 11:26 | ED_ITS ---
HPI - Headache General Chief Complaint: Headache Stated Complaint: Headache X 5 Days Time Seen by Provider: 04/29/25 11:09 Source: patient and mold shaker History of Present Illness ED Provider: HPI Narrative: 55-year-old male presenting with 5 days' worth of headache radiating from occipital area to the frontal part of the head without nausea or vomiting or visual changes, he also feels tightness in his upper and lower back, no numbness in upper or lower extremities, no fevers or chills, no trauma reported, he is on methadone. No ongoing drug use. Related Data Home Medications ?Medication ?Instructions ?Recorded ?Confirmed cholecalciferol (vitamin D3) 50 50 mcg PO DAILY 04/20/25 mcg (2,000 unit) capsule (Vitamin D3) melatonin 5 mg tablet 5 - 10 mg PO BEDTIME PRN 08/2504/20/25 methadone 40 mg soluble tablet 29 mg PO DAILY 02/28/25 04/20/25 pantoprazole 40 mg tablet,delayed 40 mg PO DAILY 04/1004/20/25 release Previous Rx's ?Medication ?Instructions ?Recorded furosemide 20 mg tablet (Lasix) 20 mg PO DAILY #90 tab s 08/29/24 syringe (disposable) 3 mL (BD #25 ea 11/27/24 Luer-Vira Syringe) ibuprofen 400 mg tablet 400 mg PO Q6H PRN pain #14 t abs 12/12/24 docusate sodium 100 mg capsule 100 mg PO BEDTIME PRN c onstipation 02/27/25 #90 caps famotidine 20 mg tablet 20 mg PO DAILY PRN GERD #90 tabs 02/27/25 polyethylene glycol 3350 17 17 g PO DAILY constipation 30 days 02/27/25 gram/dose oral powder (Miralax) #510 grams sucralfate 1 gram tablet 1 g PO TID PRN Epigastric discomfort, gastritis #60 tabs tamsulosin 0.4 mg capsule 0.4 mg PO BEDTIME 90 days #9 0 caps 04/07/25 testosterone cypionate 200 mg/mL 200 mg IM Q2W 28 days #2 mL 04/07/25 intramuscular oil bisacodyl 5 mg tablet,delayed 20 mg (4 x 5 mg) PO ONCE 1 day #4 04/10/25 release (Dulcolax (bisacodyl)) tabs polyethylene glycol 3350 17 238 g PO ONCE #238 grams 0 04/10/25 gram/dose oral powder (Miralax) needle (disp) 22 G 22 gauge x 1 #30 ea 04/21/25 needle (disp) 18 G 18 gauge x 1 #30 ea 04/23/25 (BD Regular Bevel Flandreau) cyclobenzaprine 5 mg tablet 5 mg PO TID PRN muscle spa sm 5 04/29/25 days #20 tabs prednisone 20 mg tablet 40 mg (2 x 20 mg) PO DAILY 5 days 04/29/25 #10 tabs Allergies Allergy/AdvReac Type Severity Reaction Status Date / Time SEAFOOD Allergy Severe ANAPHYLAXIS Uncoded 04/29/25 09:44 shellfish Allergy Severe Anaphylaxis Uncoded 04/29/25 09:44 Review of Systems 2 Constitutional: Constitutional: Reports as per HPI [facility] Past Medical History Medical History Constipation Anemia Hx of substance abuse Smoker History of Helicobacter pylori infection Spinal pain Hypogonadism Erectile dysfunction Hx: UTI (urinary tract infection) BPH (benign prostatic hyperplasia) Hx of hepatitis C GERD (gastroesophageal reflux disease) Anxiety and depression HTN (hypertension) Murmur Surgical History Hx of cystoscopy Family History Family History Mother Diabetes Social History Social History Unable to assess alcohol history related to: Unknown Alcohol intake: former Patient Tobacco Use Status: Current everyday Tobacco user Substance Use Type: Crack/Cocaine and Heroin Advance Directives: No Advance Directives Information Provided: Yes Do you have a plan to hurt others: No Plan Current occupational status: unemployed Physical Exam 2 Vital Signs: Vital Signs: Last Vital Signs Temp 97.4 F 04/29/25 12:46 Pulse 60 04/29/25 12:46 Resp 17 04/29/25 12:46 BP 104/55 L 04/29/25 12:46 Pulse Ox 96 04/29/25 12:46 O2 Del Method Room Air 04/29/25 12:46 BMI result Body Mass Index 20.0 Const: Other: * Gen: ?Overall well-appearing patient * HEENT: PERRLA, visual ceja are intact * Neck: Occipital tenderness bilaterally * CV: RRR, no obvious murmurs appreciated * Resp: ?No wheezing rales rhonchi no stridor moving air well * Abd: ?Bowel sounds are present, no tenderness no rebound no rigidity * MSK: FROM, strength 5/5 all extremities * Skin: Warm, dry, intact, * Neuro: ?Alert and oriented x3, moving upper and lower extremities symmetrically, no obvious facial asymmetry noted, no sensory deficits upper or lower extremities, no dysmetria, no nystagmus, pupils 2 mm reactive bilaterally Medications Administered Discontinued Medications Generic Name Dose Route Start Last Admin Trade Name Freq PRN Reason Stop Dose Admin Acetaminophen/Butalbital/Caffeine 1 tab 04/29/25 11:27 04/29/25 11:54 Butalb/Acetamin/Caff 50/325/40 Tablet PO 04/29/25 11:28 Not Given ONCE ONE Ketorolac Tromethamine 15 mg 04/29/25 11:27 04/29/25 11:53 Ketorolac Tromethamine 15 Mg/Ml Vial IM 04/29/25 11:28 15 mg ONCE ONE Administration Prednisone 40 mg 04/29/25 11:34 04/29/25 11:54 Prednisone 20 Mg Tablet PO 04/29/25 11:35 Not Given ONCE ONE Medical Decision Making Medical Decision Making MDM Narrative: We will obtain further imaging to make sure there was no underlying brain masses, I have clinical suspicion that this is likely occipital neuralgia, no evidence for stroke no fevers or chills to suspect encephalitis or meningitis, he also had some other nonspecific complaints his workup did not reveal any issues for ACS or renal dysfunction Differential Diagnosis Differential Diagnoses: The differential diagnosis associated with the presentation includes (Subarachnoid hemorrhage, cavernous venous thrombosis, acute angle closure glaucoma, temporal arteritis, meningitis, migraine headache, tension headache) Admission/Observation Consideration of admission/observation: Escalation of care including admission/observation considered 2022 Emergency Medicine Coding Guide from [employer] on 04/29/2025 All calculations should be rechecked by clinician prior to use RESULT SUMMARY: 5 Estimated Level of Service Problems: High (5) Risk: High (5) Data: Extensive (5) NARRATIVE MDM: This patient's problem complexity is High as patient: may have an acute or chronic illness/injury posing a threat to life or body function. This patient's risk is High due to: overall presentation requiring evaluation for a potentially High-risk process. This patient's data complexity is Extensive due to: -multiple tests ordered/reviewed -independent interpretation of imaging or EKG INPUTS: Number and Complexity ?> 2 = 5: illness/injury w/life or body threat (b) Risk level ?> 4 = High Tests ordered ?> 3 = >= Tests results reviewed (excluding labs) ?> 2 = 2 Prior external notes reviewed ?> 0 = 0 Assessment requiring and independent historian ?> 0 = No Independent interpretation of tests ?> 1 = Yes Discussed management/test interpretation w/external professional ?> 0 = No Lab Data MDM Lab Attestation statement: I reviewed the patient's lab results. 04/29/25 09:58 04/29/25 09:58 Labs: Lab Results 04/29/25 04/29/25 Range/Units 09:58 10:43 WBC 5.9 (4.8-10.8) X10*3/uL RBC 3.81 L (4.60-5.80) X10*6/uL Hgb 12.3 L (14.0-18.0) g/dl Hct 36.1 L (42.0-52.0) % MCV 94.8 (80.0-98.0) fL MCH 32.3 (27.0-33.0) pg MCHC 34.1 (31.0-36.0) g/dl RDW 12.8 (11.0-16.0) % Plt Count 164 (160-400) X10*3/uL MPV 10.7 (9.4-12.4) fL Immature Gran % (Auto) 0.2 (0.0-0.4) % Neut % (Auto) 73.1 H (45-73) % Lymph % (Auto) 18.5 L (20-40) % [place] % (Auto) 6.2 (2-11) % Eos % (Auto) 1.5 (0-4) % Baso % (Auto) 0.5 (0-2) % Lymph # (Auto) 1.1 L (1.2-4.9) X10*3/uL [place] # (Auto) 0.4 (0.1-1.2) X10*3/uL Eos # (Auto) 0.1 (0.0-0.4) X10*3/uL Baso # (Auto) 0.0 (0.0-0.2) X10*3/uL Abs Immat Gran (auto) 0.01 (0.00-0.03) X10*3/uL Absolute Neuts (auto) 4.3 (2.0-8.3) x10*3/uL Absolute Nucleated RBC 0.000 (0.0-0.012) X10*3/uL Nucleated RBC % (auto) 0.0 (0.0-0.2) /100WBC Sodium 141 (135-145) mmol/L Potassium 4.5 (3.3-5.1) mmol/L Chloride 102 (96-108) mmol/L Carbon Dioxide 33 H (22-29) mmol/L Anion Gap 11 L (12-20) BUN 9 (9-16) mg/dL Creatinine 0.91 (0.5-1.4) mg/dL Estim Creat Clear Calc 75.5 Estimated GFR > 60 Random Glucose 99 (60-115) mg/dL Calcium 9.3 (8.4-10.2) mg/dL Troponin I High Sens < 2.7 (<3.5-35.0) ng/L Independent Interpretation I performed an independent interpretation of an: EKG (61 beats per minute otherwise normal ECG without dysrhythmia, AV jaylin blocks or ST-T changes to suspect underlying ACS, my independent interpretation) and Plain X-Ray (My independent chest xray interpretation: Lungs: Lungs are clear bilaterally without evidence of focal consolidation, pleural effusion, or pneumothorax. Cardiac silhouette is unremarkable, no obvious mediastinal widening, no obvious bony abnormalities such as fractures. Impression: Normal chest X-r) Radiology Impression Discussion of test interpretation with radiology: I have reviewed the radiologist's reading. Discharge Plan Discharge Clinical Impression: Bilateral occipital neuralgia Patient Disposition: Home, Self-Care Additional Instructions: I suspect your headache is due to muscle spasm, continue Flexeril 5 mg every 6-8 hours as needed for spasms, continue steroids, you can also add Tylenol 975 mg every 6 hours for additional pain control, follow up with the PCP, your blood work, chest x-ray EKG and CAT scan has been reassuring Any other issues or concerns come back to the ER Prescriptions: New cyclobenzaprine 5 mg tablet 5 mg PO TID PRN (Reason: muscle spasm) 5 Days Qty: 20 0RF prednisone 20 mg tablet 40 mg PO DAILY 5 Days Qty: 10 0RF No Action (DME) syringe (disposable) [BD Luer-Vira Syringe] 3 mL syringe See Rx Instructions .Route Qty: 25 0RF Rx Instructions: As directed 1 syringe [id number] 2 syringes total per month for T injection (DME) needle (disp) 22 G 22 gauge x 1 needle See Rx Instructions .Route Qty: 30 0RF Rx Instructions: As directed to inject testosterone (DME) needle (disp) 18 G [BD Regular Bevel Flandreau] 18 gauge x 1 needle See Rx Instructions .Route Qty: 30 0RF Rx Instructions: As directed to draw testosterone cholecalciferol (vitamin D3) [Vitamin D3] 50 mcg (2,000 unit) Capsule 50 mcg PO DAILY methadone 40 mg tablet,soluble 29 mg PO DAILY ibuprofen 400 mg tablet 400 mg PO Q6H PRN (Reason: pain) Qty: 14 0RF sucralfate 1 gram tablet 1 g PO TID PRN (Reason: Epigastric discomfort, gastritis) Qty: 60 0RF furosemide [Lasix] 20 mg tablet 20 mg PO DAILY Qty: 90 0RF pantoprazole 40 mg tablet,delayed release (DR/EC) 40 mg PO DAILY bisacodyl [Dulcolax (bisacodyl)] 5 mg tablet,delayed release (DR/EC) 20 mg PO ONCE 1 Days Qty: 4 0RF Rx Instructions: Take four tablets pre colonoscopy instructions polyethylene glycol 3350 [Miralax] 17 gram/dose powder 238 g PO ONCE Qty: 238 0RF Rx Instructions: per colonoscopy prep instructions melatonin 5 mg tablet 5 - 10 mg PO BEDTIME PRN famotidine 20 mg tablet 20 mg PO DAILY PRN (Reason: GERD) Qty: 90 1RF Rx Instructions: Take one tablet daily at bedtime as needed polyethylene glycol 3350 [Miralax] 17 gram/dose powder 17 g PO DAILY 30 Days Qty: 510 2RF Rx Instructions: Take 17G (one cap full) daily with 8oz of water docusate sodium 100 mg capsule 100 mg PO BEDTIME PRN (Reason: constipation) Qty: 90 0RF Rx Instructions: Take one tablet at bedtime as needed for constipation tamsulosin 0.4 mg capsule 0.4 mg PO BEDTIME 90 Days Qty: 90 1RF testosterone cypionate 200 mg/mL oil 200 mg IM Q2W 28 Days Qty: 2 5RF Referrals: Haily Robb, ANETA [Primary Care Provider, Medical] - 2 weeks Clinical Impression: Bilateral occipital neuralgia Print Language: Telugu
[2025-04-29 12:46] VITALS: BP 104/55; PULSE 60; RESP 17; TEMP 36.3; O2SAT 96
[2025-04-29 13:24] VITALS: BP 104/55; PULSE 60; RESP 17; TEMP 36.3; O2SAT 96
== END 2025-04-29 13:25 | disposition home or self-care (01) ==
PROVIDERS: Emergency Provider Emergency Medicine; PCP Registered Nurse
DX: M54.81 Occipital neuralgia (principal); R51.9 Headache, unspecified; R07.9 Chest pain, unspecified; Z79.899 Other long term (current) drug therapy; Z79.85 Long-term (current) use of injectable non-insulin antidiabetic drugs
CPT/HCPCS: 36415; 70450; 71045; 80048; 84484; 85025; 93005; 96372; 99284; J1885

== ENCOUNTER → 2025-04-29 09:59 | Outpatient (BNV) | payer MEDICAID, SELFPAY | PROVIDERS: Emergency Provider Emergency Medicine; PCP Registered Nurse; Visit Provider Radiology Diagnostic Radiology | DX: R51.9 Headache, unspecified (principal); R07.9 Chest pain, unspecified | CPT/HCPCS: 70450; 71045 ==

== ENCOUNTER → 2025-04-29 10:34 | Outpatient (BNV) | payer MEDICAID, SELFPAY | PROVIDERS: Emergency Provider Emergency Medicine; PCP Registered Nurse; Visit Provider Internal Medicine | DX: R07.9 Chest pain, unspecified (principal) | CPT/HCPCS: 93010 ==

== ENCOUNTER 2025-05-25 09:41 | Outpatient (REF) | payer MEDICAID, SELFPAY ==
[2025-05-25 10:38] LABS: Hematocrit 39.6 % (42.0-52.0); Hemoglobin 13.4 g/dl (14.0-18.0); Mean Corpuscular HGB Conc 33.8 g/dl (31.0-36.0); Mean Corpuscular Hemoglobin 32.8 pg (27.0-33.0); Mean Corpuscular Volume 96.8 fL (80.0-98.0); NRBC Abs Auto 0.000 X10*3/uL (0.0-0.012); NRBC Pct Auto 0.0 /100WBC (0.0-0.2); Platelet Count 226 X10*3/uL (160-400); Red Blood Count 4.09 X10*6/uL (4.60-5.80); White Blood Count 5.5 X10*3/uL (4.8-10.8)
--- OUTSIDE RECORDS SUMMARY | 2025-05-25 11:29 | XMS_ITS | Encounter Summary ---
Author Organization [employer] Address [address] [place] [address] Care Team Providers Care Junior Network Engineer Name Role Phone [facility] Primary Care Provider [phone] Reason for Visit * Reason Comments Med Refill Encounter Details Date Type Department Care Team (Late st Contact Info) Description 07/08/2024 Refill [facility] [address] [place], [place] [id number] [facility] [address] [place] [address] Mixed anxiety and depressive disorder Social History [...] Care Team (Late st Contact Info) Description 06/10/2025 2:00 PM EDT Office Visit [facility] [address] [place] [address] [facility] [address] [place] [address] documented as of this encounter Goals Goal [...] documented as of this encounter Care Teams Junior Network Engineer Relationship Specialty Start Date End Date [facility] [address] [place] [address] PCP - General Family Medicine 05/01/22 documented as of this encounter
--- OUTSIDE RECORDS SUMMARY | 2025-05-25 11:30 | XMS_ITS | Clinical Summary ---
Author Organization [facility] Address [address] [place] [address] Phone Care Team Providers Care Gas Usage Meter Clerk Name Role Phone [facility] Primary Care Provider [phone] Medications polyethylene glycol (Golytely) 236-22.74-6.74 -5.86 gram [...] 2018 Zoster Vaccines (1 of 2) 2018 Cholesterol Screening (Lipid Panel) 06/16/2024 Colorectal Cancer Screening: Colonoscopy 06/16/2024 HIV Screening 06/16/2024 Hepatitis C Screening 06/16/2024 Social Influencers of Health Screening 06/16/2024 Depression Screening 09/03/2024 COVID-19 Vaccine (1 - 2023-2 5 season) 2025 Influenza Vaccine (#1) 2025 HIB Vaccines Aged [...] Phone Billing Address Personal/Family Self 1970 [address] [place] [address] MEDICA[place] Care Teams Gas Usage Meter Clerk Relationship Specialty Start Date End Date [facility] [address] [place] [phone] PCP - General 05/20/24
--- OUTSIDE RECORDS SUMMARY | 2025-05-25 11:30 | XMS_ITS | Encounter Summary ---
Author Organization [employer] Address [address] [place] [address] Care Team Providers Care Tactical Air Defense Controller Name Role Phone [facility] Primary Care Provider [phone] Reason for Visit * Reason Onset Date Comments Medication Question 08/24/2022 Encounter Details Date Type Department Care Team ([facility] st Contact Info) Description 08/24/2022 Telephone [facility] [address] [place] [address] [facility] [address] [place] [address] Medication Question Social History Tobacco Use Types [...] requesting a call back. States went to picker / packer his medication and they gave him vitamin C and he would like to know if he should be taking them again . Please call to clarify. documented in this encounter Plan of Treatment Upcoming Encounters Date Type Department Care Team (Late st Contact Info) Description 06/10/2025 2:00 PM EDT Office Visit [facility] [address] [place] [address] Haily Robb FNP [address] [place] [address] documented as of this encounter Visit Diagnoses Not on filedocumented in this encounter Care Teams Tactical Air Defense Controller Relationship Specialty Start Date End Date Haily oRbb FNP [address] [place] [phone] PCP - General Family Medicine 05/01/22 documented as of this encounter
--- OUTSIDE RECORDS SUMMARY | 2025-05-25 11:30 | XMS_ITS | Clinical Summary ---
Author Organization [employer] Address [address] [place] [address] Care Team Providers Care Tail Board Man Name Role Phone Clarisse [facility] Primary Care Provider [phone] Allergies Active Allergy Reactions Criticality Noted Date [...] blood pressure daily 1 kit 024 Active cromolyn (Nasachrom) 5.2 MG/ACT nasal sprayIndications: [...] or chew. 30 capsule 2 2025 Active Diclofenac Sodium (Voltaren) 1 % gel Use topical BID 100 g 3 Active furosemide (Lasix) 20 MG tabletIndications :Bilateral lower extremity edema TAKE 2 TABLETS BY MOUTH EVERY DAY 60 tablet 2 Active simethicone 125 MG capsule Take 1 [...] EVERY DAY NEEDED FOR ALLERGIES 90 tablet 025 Active triamcinolone (Kenalog) 0.1 % ointmentIndicatio ns:Stasis dermatitis APPLY TOPICALLY TWICE DAILY 30 g 1 025 Active cyclobenzaprine (Flexeril) 10 MG tabletIndications :Chronic bilateral low back pain without sciatica Take 1 tablet (10 mg) by mouth 3 times daily for 10 days. 30 tablet Active SUMAtriptan (Imitrex) 50 MG tabletIndications :Chronic nonintractable headache, unspecified headache type Take 1 tablet (50 mg) by mouth 1 (one) time if needed for migraine for up to 1 dose. May repeat dose once in 2 hours if no relief. Do not exceed 2 doses in 24 hours. 9 tablet 025 Active melatonin 5 MG tabletIndications :Mixed anxiety and depressive disorder TAKE 1 OR 2 TABLETS BY MOUTH EVERY DAY AT BEDTIME NEEDED 60 tablet 2 Active albuterol (Ventolin HFA) 108 (90 Base) MCG/ACT inhalerIndication s:Wheezing INHALE 2 PUFFS BY MOUTH EVERY 4 HOURS NEEDED FOR WHEEZING OR SHORTNESS OF BREATH 18 g 11 025 Active amitriptyline (Elavil) 25 MG tabletIndications :Chronic nonintractable headache, unspecified headache type Take 1 tablet (25 mg) by mouth at bedtime. 30 tablet 025 2024 Active omeprazole (PriLOSEC) [address] capsuleIndication s:Epigastric pain TAKE 1 CAPSULE BY MOUTH TWICE DAILY BEFORE BREAKFAST 180 capsule 1 Active lactulose (Chronulac) 10 GM/15ML solution Take 15 mL (10 g) by mouth Once per day for 10 days. 473 mL 3 025 2024 Active Ventolin HFA 108 (90 Base) MCG/ACT inhalerIndication s:Wheezing INHALE 2 PUFFS BY MOUTH EVERY 4 HOURS NEEDED FOR WHEEZING OR SHORTNESS OF BREATH 18 g 11 024 2024 Discontinued(R eorder (will not trigger notification to Pharmacy)) melatonin 5 MG tabletIndications :Mixed anxiety and depressive disorder TAKE 1 TO 2 TABLETS BY MOUTH EVERY DAY AT BEDTIME NEEDED 60 tablet 2 025 2024 Discontinued omeprazole (PriLOSEC) [address] capsuleIndication s:Epigastric pain Take 1 capsule (40 mg) by mouth before breakfast and before evening meal. 60 capsule 3 025 2024 Discontinued amitriptyline (Elavil) 10 MG [...] 24 hours. 9 tablet 025 2024 Discontinued acetaminophen (Tylenol Extra Strength) 500 MG tabletIndications :Chronic bilateral low back pain without sciatica Take 2 tablets (1,000 mg) by mouth every 8 (eight) hours if needed for moderate pain for up to 10 days. 30 tablet 025 2024 amitriptyline (Elavil) 25 MG tabletIndications :Chronic nonintractable headache, unspecified headache type Take 1 tablet (25 mg) by mouth at bedtime. 30 tablet 025 2024 Discontinued(R eorder (will not [...] Chronic nonintractable headache 04/27/2025 Assessment & Plan (05/12/2025 9:45 AM EDT): Not active today but he lost the medication. that was prescribed. He is not sure what it was. It is possible it was amitriptyline. I will resend it. Given the absence of symptoms currently, no other tx indicated. Advised to follow up with his PCP as scheduled. He agrees with the plan. Orders: amitriptyline (Elavil) 25 MG tablet; Take 1 tablet (25 mg) by mouth at bedtime. Assessment & Plan (04/27/2025 2:15 PM EDT): [...] Avoidance of pollen as much as possible. Taylor of ophthalmic mast cell stabilizer, nasal steroid and antihistamine. LLQ pain 01/06/2025 Assessment & Plan (01/06/2025 11:25 AM EDT): No evidence of acute abdomen. Chronic. He needs colon cancer screening and has been referred to [facility] in the past. He was encouraged to call in November but did not. We called today to facilitate appointment and give him the number to call. ER precautions discussed. [facility] reports pt has to call himself due to cancelled and did not make follow up. He was given the number [phone]. I stressed the importance of following up [...] any case Continue Carafate Call GI at [place] for EGD and colonoscopy Eat small frequent [...] 03/2023 Established with therapy and psychiatry at [facility] No rash, fever, chills, lymphadenopathy Odynophagia 06/14/2023 [...] for anxiety sxs) that comes referred from [facility] for exacerbated anxiety in presence of [...] a good support system through his family, spiritism and recovery network, as well as having [...] to explore potential nerve damage due to senior living use of anxiolytics, even though John is on low dose medication. At this time is unclear if crawling/burning sensation on skin is solely due to medical and/or somatic presentation. However, sxs are causing significant psychological distress in patient. John was given information on how to reach out to [facility] team and [facility] numbers for crisis. He was also [...] in male 11/02/2022 Overview (11/02/2022): Followed by [facility] urology Dr. Lux subcutaneous testosterone injection Assessment [...] of this appointment. His appointment is at [facility] Tb clinic [phone] on January 27 at 11:00 am. He [...] depressive disorder 02/22/2017 Overview (08/05/2023): Followed by [facility] Clonazepam PRN Clonidine PRN Assessment & Plan (11/06/2022 5:05 AM EST): Spoke with [facility] pharmacy-the blue conazepam tablets that patient prefer are from a different commodity specialist and are on back order. Pt [...] Encounters Date Type Department Care Team Description 05/19/[address] [facility] MEDICINE [address] [place] [phone] Sanam Noland MD Chronic bilateral low back pain without sciatica (Primary Dx) 05/19/[address] [facility] MEDICINE [address] [place] [phone] Haily Robb FNP Med Refill 05/15/2025 10:00 AM EDT Office Visit [facility] WALKIN [address] [address] Collins Reyes MD Bloating (Primary Dx); Drug-induced constipation; Concern about diabetes mellitus without diagnosis 05/15/2025 Travel 05/14/2025 [facility] [address] [address] Roxana Gotti DO Epigastric pain 05/12/2025 9:20 AM EDT [facility] [address] [address] Elda Love MD Chronic nonintractable headache, unspecified headache type 05/12/2025 Travel 05/08/[address] [facility]INE [address] [place] [address] Haily Rbob FNP Referral 05/05/[address] [facility]INE [address] [place] [phone] [place]aily [facility] Jun/jul recall 05/04/[address] [facility] WALK-IN CENTER [address] [place] [address] [facility] Wheezing 05/02/[address] [facility]INE [address] [place] [phone] [facility] Mixed anxiety and depressive disorder; Wheezing 04/29/2025 Orders Only GENERIC EXTERNAL DATA DEPARTMENT Provider, Generic External Data 04/27/2025 1:40 PM EDT Office Visit [facility] [address] [place] [address] Sanam Noland MD Chronic bilateral low back pain without sciatica (Primary Dx); Chronic nonintractable headache, unspecified headache type 04/27/2025 Travel 04/21/2025 10:20 AM EDT Office Visit [facility] WALK[facility] [address] [address] Collins Reyes MD Chronic nonintractable headache, unspecified headache type (Primary Dx) 04/21/2025 Travel 04/06/[address] [facility]INE [address] [place] [phone] Gema Gar FNP Stasis dermatitis 04/05/2025 Orders Only GENERIC EXTERNAL DATA DEPARTMENT Provider, Generic External Data 04/04/2025 10:20 AM EDT Office Visit [facility] [address] [place] [phone] Francy Jennings MD Benign prostatic hyperplasia with urinary frequency (Primary Dx); Drug-induced constipation; Hypogonadism in male 04/04/2025 Travel 03/30/2025 2:45 PM EDT Office Visit [facility] [address] [place] [address] [place] [facility] Peripheral vascular disease (CMS/HCC) (Primary Dx) 03/30/2025 Travel 03/26/[address] [facility] [address] [place] [phone] Haily Robb FNP chart prep 03/23/[address] [address] Haily Robb FNP Results 03/14/[address] [facility] [address] [place] [address] Elda Love MD Seasonal allergies 03/12/[address] [address] Haily Robb FNP Durable Medical Equipment 03/11/2025 2:30 PM EDT Office Visit [address] [address] Gema Gar FNP Stasis dermatitis (Primary Dx); Cellulitis of both feet 03/11/2025 Travel 03/11/[address] [address] Haily Robb FNP Nurse Triage 03/10/2025 Patient Outreach [address] [address] Haily Robb FNP Care Coordination ([facility] outreach for SDOH-patient declined to participate ) 03/10/[address] [address] Haily Robb FNP pt1 03/10/[address] [address] Haily Robb FNP Call Back Request 03/09/[address] [address] Haily Robb FNP ER Follow-up 03/09/2025 Orders Only GENERIC EXTERNAL DATA DEPARTMENT Provider, Generic External Data 03/03/2025 Telephone [facility] [address] [place] [phone] Roxana Gotti DO 03/02/[address] [address] Haily Robb FNP Call Back Request 03/01/2025 Orders Only GENERIC EXTERNAL DATA DEPARTMENT Provider, Generic External Data 02/28/2025 9:40 AM EDT Office Visit [facility]ALK[facility]IN [facility] [address] [place] [address] Sean Brown MD Sore throat (Primary Dx); Acute midline low back pain without sciatica 02/28/2025 Travel 02/26/[address] [facility] [address] [place] [address] [place] SCAN TECHNOLOGIST Results 02/26/[address] [facility] [address] [place] [address] [place] SCAN TECHNOLOGIST Referral 02/23/[address] [facility] [address] [place] [address] [place], [place] SCAN TECHNOLOGIST Referral from Last 3 Months Immunizations Immunization Administration [...] Sign Reading Time Taken Comments Blood Pressure 118/77 05/15/2025 9:56 AM EDT Pulse 87 05/15/2025 9:56 AM EDT Temperature 37.8 C (100 F) 05/15/2025 9:56 AM EDT Respiratory Rate 12 05/15/2025 9:56 AM EDT Oxygen Saturation 98% 05/15/2025 9:56 AM EDT Inhaled Oxygen Concentration - - Weight 63.1 kg (139 lb 3.2 oz) 05/15/2025 9:56 A M EDT Height 172.7 cm (5' 8 ) 05/15/2025 9:56 AM EDT Body Mass Index 21.17 05/15/2025 9:56 AM EDT Plan of Treatment Upcoming Encounters Date Type Department Care Team (Late st Contact Info) Description 06/10/2025 2:00 PM EDT Office Visit [facility] [address] [place] [address] [place], [place] SCAN TECHNOLOGIST [address] [place] [address] Health Maintenance Due Date Last Done Comments CT Colonography 1970 Colonoscopy 1968 Colorectal Cancer Screening 1968 FIT DNA/Cologuard 1968 FIT 1968 FOBT 1968 Sigmoidoscopy 1968 Alcohol/Substance Use Screening 1980 DTaP/Tdap/Td Vaccines (1 - Tdap) 1987 Hepatitis B Vaccines (2 of 2 - CpG 2-dose series) 12/14/2022 11/16/2022 Zoster Vaccines (2 of 2) 01/11/2023 11/16/2022 Dental X-Ray: Bitewings 06/26/2024 06/25/2023 Dental Oral Exam 04/22/2025 10/22/2024, , 06/01/2022 Dental Prophylaxis 04/22/2025 10/22/2024, 0 04/17/2024, 06/25/2023, Additional history exists SDOH Screening 04/23/2025 04/23/2024 COVID-19 Vaccine ( season) 2025 04/27/2022, 04/27/2022, 08/16/2021, Additional history exists Influenza Vaccine (#1) 2025 Depression Monitoring 09/30/2025 03/30/2025, 025 Disability Screening 03/11/2026 03/11/2025 Diabetes: Hemoglobin A1C 05/15/2026 025, 01/06/2025, 06/20/2024, Additional history exists Tobacco Screening 05/15/2026 05/15/2025 Dental X-Ray: Full Mouth 09/12/2026 09/11/2023, 06/04 [...] Procedure Name Priority Date/Time Associated Diagnosis Comments POCT GLYCATED HEMOGLOBIN, TOTAL Routine 05/15/2025 10:34 AM EDT Concern about diabetes mellitus without diagnosis POCT GLUCOSE Routine 05/15/2025 10:34 AM EDT Concern about diabetes mellitus without diagnosis CT HEAD WO CONTRAST Routine 04/29/2025 1 1:32 AM EDT HIGH SENSITIVITY TROPONIN I Routine 04/29/2025 10:43 AM EDT XR CHEST 1 VIEW Routine 04/29/2025 9:59 [...] EDT Epigastric pain HEPATIC FUNCTION PANEL Routine 11:31 AM EDT Epigastric pain CBC WITH AUTO DIFFERENTIAL Routine 02/25/2025 11:31 AM EDT Dizziness BASIC METABOLIC PANEL Routine 02/25/2025 11:31 AM EDT Dizziness TSH W/REFLEX TO FT4 Routine 02/25/2025 1 1:31 AM EDT Polyneuropathy HEPATITIS C AB W/REFL TO HCV RNA, QN, PCR Routine 01/06/2025 10:11 AM EDT Bilateral lower extremity edema PROPHYLAXIS - ADULT Routine 10/22/2024 1 :00 [...] Relevant to Health Maintenance Results * (ABNORMAL) POCT Hgb A1c (05/15/2025 10:34 AM EDT) Hemoglobin A1C 5.8(A) 4.0 - 5.7 % QC Media Lot # [id number] Lot# Expiration Date Blood 05/15/2025 10:3 4 AM EDT us Collins Reyes MD POINT OF CARE TEST ENTER/EDIT OR DERABLES Final Result * POCT Glucose (05/15/2025 10:34 AM EDT) Glucose Blood, POC 144 60 - 200 mg/dL QC Media Lot # [id number] Lot# Expiration Date 101,225 Blood Capillary blood specimen / Unknown 05/15/2025 10:34 AM EDT us Collins Reyes MD POINT OF CARE TEST ENTER/EDIT OR DERABLES Final Result * CT Head w/o Contrast (04/29/2025 11:32 AM EDT) Anatomical Region Laterality Modality Head, Neck Computed Tomogra phy 04/29/2025 11:3 2 AM EDT Narrative 04/29/2025 12:15 PM EDT [place] [address] [address] Scan Report Signed Patient: John Fitzpatrick MR#: [id number] : 1970 Acct:[id number] Age/Sex: 55 / M ADM Date: 04/29/25 Loc: .ED Attending Dr: Ordering Physician: Erik Montano DO Date of Service: 04/29/25 Procedure(s): CT head/brain wo IV con Accession Number(s): [id number] cc: Erik Montano DO; [facility] Report Number: [id number]: Total DLP = 672.00 mGy-cm EXAMINATION: CT HEAD WITHOUT CONTRAST CLINICAL INFORMATION: headache COMPARISON: February 15, 2025 TECHNIQUE: Contiguous axial imaging was performed from the skull base to vertex without intravenous administration of contrast. This CT examination was performed using dose optimization techniques as appropriate, variously including the following: *Automated exposure control *Adjustment of mA and/or kV according to patient size (this includes techniques or standardized protocols for targeted exams where dose is matched to indication/reason for exam; i.e. extremities or head) *Use of iterative reconstruction technique DLP: 690 mGy-cm FINDINGS: No acute intracranial hemorrhage, mass effect, midline shift, hydrocephalus or herniation. Freeman-white matter differentiation is normal. Posterior cranial fossa contents demonstrated no gross hemorrhage or mass effect. No acute fracture in the bony calvarium. No air-fluid levels in the paranasal sinuses. Tympanic cavities and mastoid cells are aerated. The right internal jugular bulb is at the level of the mesotympanum. The cerebellar tonsils are in normal position. CT/CT head/brain wo IV con IMPRESSION: No acute intracranial hemorrhage. Probable high riding right internal jugular bulb. Electronically signed by: Darryl Zaidi MD 04/29/2025 12:12 PM EDT RP Dictated By: Darryl Rey MD Signed By: <Electronically signed by Darryl Lynn MD in OV> 04/29/25 1212 DD/ 1132 TD/TT: 04/29/25 1205 Piano Machine Operator: Procedure Note Donotuseinterpreter, Image - 04/29/[address] [place] [address] [address] Scan Report Signed Patient: John Fitzpatrick AMR#: [id number] : 1970Acct:[id number] Age/Sex: 55 / MADM Date: 04/29/25 Loc: HO.ED Attending Dr: Ordering Physician: Erik Montano DO Date of Service: 04/29/25 Procedure(s): CT head/brain wo IV con Accession Number(s): [id number] cc: Erik Montano DO; [facility] Report Number: [id number]: Total DLP = 672.00 mGy-cm EXAMINATION: CT HEAD WITHOUT CONTRAST CLINICAL INFORMATION: headache COMPARISON: February 15, 2025 TECHNIQUE: Contiguous axial imaging was performed from the skull base to vertex without intravenous administration of contrast. This CT examination was performed using dose optimization techniques as appropriate, variously including the following: *Automated exposure control *Adjustment of mA and/or kV according to patient size (this includes techniques or standardized protocols for targeted exams where dose is matched to indication/reason for exam; i.e. extremities or head) *Use of iterative reconstruction technique DLP: 690 mGy-cm FINDINGS: No acute intracranial hemorrhage, mass effect, midline shift, hydrocephalus or herniation. Freeman-white matter differentiation is normal. Posterior cranial fossa contents demonstrated no gross hemorrhage or mass effect. No acute fracture in the bony calvarium. No air-fluid levels in the paranasal sinuses. Tympanic cavities and mastoid cells are aerated. The right internal jugular bulb is at the level of the mesotympanum. The cerebellar tonsils are in normal position. CT/CT head/brain wo IV con IMPRESSION: No acute intracranial hemorrhage. Probable high riding right internal jugular bulb. Electronically signed by: Darryl Zaidi MD 04/29/2025 12:12 PM EDT Dictated By: Darryl Rey MD Signed By: <Electronically signed by Darryl Lynn MDin OV> 04/29/25 1212 DD/ 1132 TD/TT: 04/29/25 1205 Piano Machine Operator: [facility] External Provider IMG CT PROCEDURES Final Result * High Sensitivity Troponin I (04/29/2025 10:43 AM EDT) TROPONIN I HIGH SENSITIVITY <2.7 <3.5 - 35.0 ng/L [facility] Comment:The Lemon high sens itivity Troponin-I results should beused in conjunction with other diagnostic information suchas ECG, clinical observations and information, and patientsymptoms to aid in the diagnosis of LA. 04/29/2025 10:4 3 AM EDT 04/29/2025 10:48 AM EDT Generic External Data Provider LAB BLOOD ORDERAB LES Final Result [facility] [address] [place] [phone] * XR Chest 1 View (04/29/2025 9:59 AM EDT) Anatomical Region Laterality Modality Chest Radiographic Cecelia ging 04/29/2025 9:59 AM EDT Narrative 04/29/2025 11:06 AM EDT [address] [address] XRay Report Signed Patient: John Fitzpatrick MR#: [id number] : 1970 Acct:[id number] Age/Sex: 55 / M ADM Date: 04/29/25 Loc: .ED Attending Dr: Ordering Physician: Generic ED Physician Date of Service: 04/29/25 Procedure(s): XR chest 1V Accession Number(s): [id number] cc: [facility] ED Physician; [facility] CT SCAN TECHNOLOGIST EXAMINATION: XR CHEST CLINICAL INFORMATION: chest pain [...] Finesse Witt MD 04/29/2025 11:02 AM EDT Dictated By: Finesse Witt MD Signed By: <Electronically signed by Finesse Witt MD in OV> 04/29/25 1102 DD/ 0959 TD/TT: 04/29/25 1055 Piano Machine Operator: Procedure Note Donotuseinterpreter, Image - 04/29/[address] [address] XRay Report Signed Patient: John Fitzpatrick AMR#: [id number] : 1970Acct:[id number] Age/Sex: 55 / MADM Date: 04/29/25 Loc: HO.ED Attending Dr: Ordering Physician: Generic ED Physician Date of Service: 04/29/25 Procedure(s): XR chest 1V Accession Number(s): [id number] cc: Generic ED Physician; Haily Robb CT SCAN TECHNOLOGIST EXAMINATION: XR CHEST CLINICAL INFORMATION: chest pain [...] 04/29/25 1102 DD/ 0959 TD/TT: 04/29/25 1055 Piano Machine Operator: [facility] External Provider IMG XR PROCEDURES Edited Result - Final * (ABNORMAL) CBC auto differential (04/29/2025 9:58 AM EDT) Only the most recent of5 resultswithin the time period is included. White Blood Count 5.9 4.8 - 10.8 X10*3/uL [facility] Red Blood Count 3.81(L) 4.60 - 5.80 X10*6/uL [facility] Hemoglobin 12.3(L) 14.0 - 18.0 g/dl [facility] Hematocrit 36.1(L) 42.0 - 52.0 % [facility] Mean Corpuscular Volume 94.8 80.0 - 98.0 fL [facility] Mean Corpuscular Hemoglobin 32.3 27.0 - 33.0 pg [facility] Mean Corpuscular HGB Conc 34.1 31.0 - 36.0 g/dl [facility] Red Cell Distribution Width 12.8 11.0 - 16.0 % [facility] Platelet Count 164 160 - 400 X10*3/uL [facility] Mean Platelet Volume 10.7 9.4 - 12.4 fL [facility] Neutrophils Percent Auto 73.1(H) 45 - 73 % [facility] Imm Gran Pct Auto 0.2 0.0 - 0.4 % [facility] Lymphocytes Percent Auto 18.5(L) 20 - 40 % [facility] Monocytes Percent Auto 6.2 2 - 11 % [facility] Eosinophils Percent Auto 1.5 0 - 4 % [facility] Basophils Percent Auto 0.5 0 - 2 % [facility] NRBC Pct Auto 0.0 0.0 - 0.2 /100WBC [facility] Neutrophils Absolute Auto 4.3 2.0 - 8.3 x10*3/uL [facility] Imm Gran Abs Auto 0.01 0.00 - 0.03 X10*3/uL [facility] Lymphocytes Absolute Auto 1.1(L) 1.2 - 4.9 X10*3/uL [facility] Monocytes Absolute Auto 0.4 0.1 - 1.2 X10*3/uL [facility] Eosinophils Absolute Auto 0.1 0.0 - 0.4 X10*3/uL [facility] Basophils Absolute Auto 0.0 0.0 - 0.2 X10*3/uL [facility] NRBC Abs Auto 0.000 0.0 - 0.012 X10*3/uL [facility] 04/29/2025 9:58 AM EDT 04/29/2025 10:01 AM EDT us Generic External Data Provider LAB BLOOD ORDERAB LES Final Result [facility] [address] [place] [address] [phone] * (ABNORMAL) Basic Metabolic Panel (04/29/2025 9:58 AM EDT) Only the most recent of2 resultswithin the time period is included. Sodium 141 135 - 145 mmol/L [facility] Potassium 4.5 3.3 - 5.1 mmol/L [facility] Chloride 102 96 - 108 mmol/L [facility] Carbon Dioxide 33(H) 22 - 29 mmol/L [facility] Anion Gap 11(L) 12 - 20 [facility] Urea Nitrogen (BUN) 9 9 - 16 mg/dL [facility] Creatinine, Serum 0.91 0.5 - 1.4 mg/dL [facility] Creatinine Clr Calc Pharmacy 75.5 [facility] Comment:eGFR (calculated fro m the MDRD study equation) and eCrCl(calculated from the Cockcroft-Gault equation) are based ondifferent parameters and may not yield comparable results.If eCrCl result is absurd, please check patient'sheight/weight. Estimated Glomerular Filt Rate >60 [facility] Comment:Chronic Kidney Disea se: Estimated GFR < 60 mL/min/1.53r2Hkcqvd Kidney Disease: Estimated GFR < 15 mL/min/1.73m2 Glucose 99 60 - 115 mg/dL [facility] Calcium 9.3 8.4 - 10.2 mg/dL [facility] 04/29/2025 9:58 AM EDT 04/29/2025 10:01 AM EDT us Generic External Data Provider LAB BLOOD ORDERAB LES Final Result [facility] [address] [place] [phone] * Lipase (04/05/2025 11:30 AM EDT) Only the most recent of3 resultswithin the time period is included. Lipase 30 8 - 78 U/L [facility] 04/05/2025 11:3 0 AM EDT 04/05/2025 11:42 AM EDT Generic External Data Provider LAB BLOOD ORDERAB LES Final Result [facility] [address] [place] [phone] * (ABNORMAL) Comprehensive Metabolic Panel (04/05/2025 11:30 AM EDT) Only the most recent of2 resultswithin the time period is included. Sodium 142 135 - 145 mmol/L [facility] Potassium 4.2 3.3 - 5.1 mmol/L [facility] Chloride 103 96 - 108 mmol/L [facility] Carbon Dioxide 30(H) 22 - 29 mmol/L [facility] Anion Gap 13 12 - 20 [facility] Urea Nitrogen (BUN) 22(H) 9 - 16 mg/dL [facility] Creatinine, Serum 0.99 0.5 - 1.4 mg/dL [facility] Creatinine Clr Calc Pharmacy 69.4 [facility] Comment:eGFR (calculated fro m the MDRD study equation) and eCrCl(calculated from the Cockcroft-Gault equation) are based ondifferent parameters and may not yield comparable results.If eCrCl result is absurd, please check patient'sheight/weight. Estimated Glomerular Filt Rate >60 [facility] Comment:Chronic Kidney Disea se: Estimated GFR < 60 mL/min/1.10o1Sjught Kidney Disease: Estimated GFR < 15 mL/min/1.73m2 Glucose 97 60 - 115 mg/dL [facility] Calcium 9.4 8.4 - 10.2 mg/dL [facility] Bilirubin, Total 1.4(H) 0.0 - 1.0 mg/dL [facility] Aspartate Amino Transferase 36 5 - 37 U/L [facility] Alanine Aminotransferase 56(H) 0 - 40 U/L [facility] Total Protein 7.8 6.5 - 8.0 g/dL [facility] Albumin Level 5.0 3.5 - 5.0 g/dL [facility] Alkaline Phosphatase 54 39 - 117 U/L [facility] 04/05/2025 11:3 0 AM EDT 04/05/2025 11:42 AM EDT us Generic External Data Provider LAB BLOOD ORDERAB LES Final Result [facility] [address] [place] [phone] * POCT Urinalysis (04/04/2025 10:43 AM [...] Media Lot # [id number] Lot# Expiration Date Urine 04/04/2025 10:4 3 AM EDT Francy Jennings MD POINT OF CARE TEST ENTER /EDIT ORDERABLES Final Result * Urinalysis w/reflex microscopic (03/09/2025 11:05 AM EDT) Only the most recent of2 resultswithin the time period is included. Color Urine Yellow [facility] Appearance Urine Turbid [facility] PH >=9.0 5.0 - 9.0 [facility] Glucose Urine UA Negative Negative mg/dL [facility] Urine Blood Negative Negative [facility] Specific Lindsey - Urine 1.020 1.005 - 1.025 [facility] Urine Protein Trace Neg-Trace mg/dL [facility] Urine Ketones Negative Negative mg/dL [facility] Nitrite Urine Negative Negative [facility] Leukocyte Esterase Urine Negative Negative [facility] 03/09/2025 11:0 5 AM EDT 03/09/2025 11:11 AM EDT Narrative [facility] - 03/09/2025 11:21 AM EDT Urine, Clean Catch us Generic External Data Provider LAB URINE ORDERAB LES Final Result Performing Organization Address City/State/[facility] Co de Phone Number [facility] [address] [place] [phone] * CT Abdomen Pelvis w/ Contrast (03/01/2025 8:53 PM EDT) Anatomical Region Laterality Modality Body, Pelvis, Abdomen Computed T omography 03/01/2025 8:53 PM EDT Narrative 03/01/2025 8:56 PM EDT [address] [address] [address] Scan Report Signed Patient: John Fitzpatrick MR#: [id number] : 1970 Acct:[id number] Age/Sex: 54 / M ADM Date: 03/01/25 Loc: HO.ED Attending Dr: Ordering Physician: Germania Wilburn MD Date of Service: 03/01/25 Procedure(s): CT abdomen pelvis w IV con Accession Number(s): [id number] cc: Germania Wilburn MD; [facility] Report Number: [id number]: Total DLP = 321.00 mGy-cm CLINICAL HISTORY: [...] in OV> 03/01/252054 DD/ 52 TD/TT: 03/01/252052 Piano Machine Operator: Procedure Note Donotuseinterpreter, Image - 03/01/[address] [address] [address] Scan Report Signed Patient: John Fitzpatrick AMR#: [id number] : 1970Acct:[id number] Age/Sex: 54 / MADM Date: 03/01/25 Loc: .ED Attending Dr: Ordering Physician: Germania Wilburn MD Date of Service: 03/01/25 Procedure(s): CT abdomen pelvis w IV con Accession Number(s): [id number] cc: Germania Wilburn MD; [facility] Report Number: [id number]: Total DLP = 321.00 mGy-cm CLINICAL HISTORY: [...] in OV> 03/01/252054 DD/ 52 TD/TT: 03/01/252052 Piano Machine Operator: [facility] External Provider IMG CT PROCEDURES Edited Result - Final * XR KUB and Upright 2 Views (03/01/2025 5:40 PM EDT) Anatomical Region Laterality Modality Radiographic Cecelia ging 03/01/2025 5:40 PM EDT Narrative 03/01/2025 5:42 PM EDT [address] [address] XRay Report Signed Patient: John Fitzpatrick MR#: [id number] : 1970 Acct:[id number] Age/Sex: 54 / M ADM Date: 03/01/25 Loc: .ED Attending Dr: Ordering Physician: Fay Rosales Date of Service: 03/01/25 Procedure(s): XR KUB Accession Number(s): [id number] cc: Fay Rosales; [facility] CLINICAL HISTORY: abd pain constipation 1 view [...] in OV> 03/01/251740 DD/ 39 TD/TT: 03/01/251739 Piano Machine Operator: Procedure Note Jenniferter, Image - 03/01/[address] [address] XRay Report Signed Patient: John Fitzpatrick AMR#: [id number] : 1970Acct:[id number] Age/Sex: 54 / MADM Date: 03/01/25 Loc: HO.ED Attending Dr: Ordering Physician: Fay Rosales Date of Service: 03/01/25 Procedure(s): XR KUB Accession Number(s): [id number] cc: Fay Rosales; [facility] CLINICAL HISTORY: abd pain constipation 1 view [...] in OV> 03/01/251740 DD/ 39 TD/TT: 03/01/251739 Piano Machine Operator: [facility] External Provider IMG XR PROCEDURES Edited Result - Final * Magnesium (03/01/2025 4:18 PM EDT) Magnesium 2.0 1.6 - 2.6 mg/dL [facility] 03/01/2025 4:18 PM EDT 03/01/2025 4:35 PM EDT Generic External Data Provider LAB BLOOD ORDERAB LES Final Result [facility] [address] [place] [phone] * POCT Rapid Influenza B LEMON ID NOW (02/28/2025 10:17 AM EDT) Influenza B Negative Negative, Indeterminate [facility] QC Media Lot # [id number] [facility] Lot# Expiration Date [facility] Swab 02/28/2025 10:1 7 AM EDT us Sean Benavidez MD POINT OF CARE TEST EN TER/EDIT ORDERABLES Final Result Performing Organization Address City/[facility]/ZIP Co de Phone Number [facility] [address] [place] [phone] * POCT Rapid Influenza A LEMON ID NOW (02/28/2025 10:17 AM EDT) Influenza A Negative Negative, Indeterminate [facility] QC Media Lot # [id number] [facility] Lot# Expiration Date [facility] Swab 02/28/2025 10:1 7 AM EDT us Sean Benavidez MD POINT OF CARE TEST EN TER/EDIT ORDERABLES Final Result Performing Organization Address [facility]/ZIP Co de Phone Number [facility] [address] [place] [phone] * POCT Rapid Strep A LEMON ID NOW (02/28/2025 10:17 AM EDT) Rapid Strep A Screen Negative Negative, None Detected QC Media Lot # [id number] Lot# Expiration Date Swab 02/28/2025 10:1 7 AM EDT us Sean Benavidez MD POINT OF CARE TEST EN TER/EDIT ORDERABLES Final Result * POCT Rapid Covid-19 BinaxNOW (02/28/2025 10:17 AM EDT) Rapid COVID Ag Negative [facility] QC Media Lot # [id number] [facility] Lot# Expiration Date [facility] Swab 02/28/2025 10:1 7 AM EDT us Sean Benavidez MD POINT OF CARE TEST EN TER/EDIT ORDERABLES Final Result Performing Organization Address [facility] Co de Phone Number [facility] [address] [place] [phone] * TSH W/Reflex to FT4 (02/25/2025 11:31 AM EDT) TSH reflex Free T4 2.73 0.32 - 4.0 uIU/mL [facility] Blood Venous blood specimen / Unknown 02/25/2025 11:31 AM EDT 02/25/2025 1:20 PM EDT [facility] CT SCAN TECHNOLOGIST LAB BLOOD ORDERABLES Final Re sult Performing Organization Address [facility] Co de Phone Number [facility] [address] [place] [phone] * Amylase (02/25/2025 11:31 AM EDT) Pathologist [facility] Amylase 84 28 - 100 U/L [facility] Blood Venous blood specimen / Unknown 02/25/2025 11:31 AM EDT 02/25/2025 1:20 PM EDT Roxana Gotti DO LAB BLOOD ORDERABLES Final R esult Performing Organization Address [facility] Co de Phone Number [facility] [address] [place] [phone] * (ABNORMAL) Hepatic Function Panel (02/25/2025 11:31 AM EDT) Bilirubin, Total 1.5(H) 0.0 - 1.0 mg/dL [facility] Bilirubin, Direct 0.5 0.0 - 0.5 mg/dL [facility] Aspartate Amino Transferase 31 5 - 37 U/L [facility] Alanine Aminotransferase 34 0 - 40 U/L [facility] Total Protein 8.1(H) 6.5 - 8.0 g/dL [facility] Albumin Level 5.1(H) 3.5 - 5.0 g/dL [facility] Alkaline Phosphatase 57 39 - 117 U/L [facility] Blood Venous blood specimen / Unknown 02/25/2025 11:31 AM EDT 02/25/2025 1:20 PM EDT us Roxana Shen DO LAB BLOOD ORDERABLES Final R esult Performing Organization Address [facility] Co de Phone Number [facility] [address] [place] [phone] * Hepatitis C Antibody with Reflex to HCV, RNA, Quantitative, Real-Time PCR (01/06/2025 10:11 AM EDT) Hepatitis C Antibody Nonreactive Nonreactive [facility] Comment:Antibodies to HCV no t detected; does not exclude early acuteHCV infection. Blood Venous blood specimen / Unknown 01/06/2025 10:11 AM EDT 01/06/2025 11:07 AM EDT us Hoa Dueñas STAFF VETERINARIAN LAB BLOOD ORDERABLES Final Resul t Performing Organization Address [facility] de Phone Number [facility] [address] [place] [phone] * Lipid Panel, Standard (03/19/2024 9:34 AM EDT) Triglycerides 66 <150 mg/dL [facility] Comment:Desirable Triglyceri de: less than 150 mg/dLBorderline High Triglyceride 150-199 mg/dLHigh Triglyceride: 200-499 mg/dLVery High Triglyceride: greater than or equal to 5OO mg/dL Cholesterol 112 <200 mg/dL [facility] Comment:Desirable Cholestero l: less than 200 mg/dLBorderline High Cholesterol: 200-239 mg/dLHigh Cholesterol: greater than 239 mg/dL LDL Cholesterol Calculated 58 <100 mg/dL [facility] Comment:Desirable LDL: less than 100 mg/dLNear Optimal/Above Optimal LDL: 110- 129 mg/dLBorderline High LDL: 130-159 mg/dLHigh LDL: 160-189 mg/dLVery High LDL: greater than or equal to 190 mg/dL HDL Cholesterol 41 >40 mg/dL [facility] Comment:Desirable HDL: great er than 40 mg/dL Note: This HDL assay may give artificially low results in patients with liver disease. Blood Venous blood specimen / Unknown 03/19/2024 9:34 AM EDT 03/19/2024 11:12 AM EDT us Roxana Gotti DO LAB BLOOD ORDERABLES Final R esult Performing Organization Address [facility]/ZIP Co de Phone Number [facility] [address] [place] [phone] * HIV-1 RNA, Quantitative, Real-Time PCR (03/22/2023 11:53 AM EDT) HIV RNA PCR Qn Copies NOT DETECTED NOT DETECTED copies/mL [facility] HIV RNA PCR Qn Log Copies NOT DETECTED NOT DETECTED [facility] Comment:Result Units: Log co pies/mLThis test was performed using Real-Time Polymerase ChainReaction.Reportable Range: 20 copies/mL to 10,000,000 copies/mL(1.30 log copies/mL to 7.00 log copies/mL).THIS TEST WAS PERFORMED AT:[employer] [place] [phone] GONG MD Blood Venous blood specimen / Unknown 03/22/2023 11:53 AM EDT 03/22/2023 1:32 PM EDT us Jessica Guillen CT SCAN TECHNOLOGIST LAB BLOOD ORDERABLES Final Res ult Performing Organization Address [facility]/ZIP Co de Phone Number [facility] [address] [place] [phone] from Last 3 Months or Most Recently Relevant to Health Maintenance [facility] STAND ADULT Care Teams Tail Board Man Relationship Specialty Start Date End Date Haily Robb FNP [address] [place] [address] [place] [address] PCP - General Family Medicine 05/01/22
--- OUTSIDE RECORDS SUMMARY | 2025-05-25 11:30 | XMS_ITS | Encounter Summary ---
Author Organization [employer] Address [address] [facility] 7t [place] [address] Care Team Providers Care Evp Managing Director Name Role Phone [facility]alt [facility] Primary Care Provider [phone] Reason for Visit * Reason Onset Date Comments Med Refill 09/25/2023 Encounter Details Date Type Department Care Team ([facility] st Contact Info) Description 09/25/2023 Telephone [facility] [address] [place], [place] [phone] [facility] [address] [place] [address] Med Refill Social History Tobacco Use Types [...] the past 12 months, has t he [employer] gas, oil or water company threatened [...] 200 MG/ML injection To be sent to: [facility] - [place], [place] - [address] documented in this encounter Plan of Treatment Upcoming Encounters Date Type Department Care Team (Late st Contact Info) Description 06/10/2025 2:00 PM EDT Office Visit [facility] MEDICINE [address] [place] [address] Haily Robb FNP [address] [place] [address] documented as of this encounter Visit Diagnoses Not on filedocumented in this encounter Additional Health Concerns Assessment Noted Time PHQ-9 Depression Total Score: 0 08/15/20 23 3:52 PM EST documented as of this encounter Care Teams Evp Managing Director Relationship Specialty Start Date End Date Haily Robb FNP [address] [place] [address] PCP - General Family Medicine 05/01/22 documented as of this encounter
--- OUTSIDE RECORDS SUMMARY | 2025-05-25 11:30 | XMS_ITS | Encounter Summary ---
Author Organization [employer] Address [address] [facility] 7t [place] [address] Care Team Providers Care Trim Sawyer Name Role Phone Clarisse [facility] Primary Care Provider [phone] Reason for Visit * Reason Onset Date Comments Results 02/26/2025 Encounter Details Date Type Department Care Team ([facility] st Contact Info) Description 02/26/2025 Telephone [facility] MEDICINE [address] [place], [place] [phone] [facility] [address] [place] [address] Results Social History Tobacco Use Types Packs/Day [...] back regarding prior message. Contact pt at [phone] * Telephone Encounter - Claudette Ashley - 02/26/2025 12:59 PM EDT TC from pt requesting call back regarding Results. Type of results: Lab Date when done: 02/25/25 Facility: [facility] Contact pt at [phone] (andorran) documented in this encounter Plan of Treatment Upcoming Encounters Date Type Department Care Team ([facility] st Contact Info) Description 06/10/2025 2:00 PM EDT [facility] Visit [facility] [address] [place] [address] [place] [address] CantonHaily molina FNP [address] [place] [address] documented as of this encounter Goals Goal Patient Goal Type Associated Problems Recent Progress Patient-Stated? Author Patient will adhere to medication regimen General Mary Chauhan documented as of this encounter Visit Diagnoses Not on filedocumented in this encounter Additional Health Concerns Assessment Noted Time PHQ-9 Depression Total Score: 0 10/10/19 25 1:23 PM EST documented as of this encounter Care Teams Trim Sawyer Relationship Specialty Start Date End Date Clarisse GEOVANNA JohansenP [address] [place] [address] PCP - General Family Medicine 05/01/22 documented as of this encounter
--- OUTSIDE RECORDS SUMMARY | 2025-05-25 11:30 | XMS_ITS | Encounter Summary ---
Author Organization [employer] Address [address] [facility] [address]t [place] [address] Care Team Providers Care Piece Goods Packer Name Role Phone Haily Robb APPRENTICE PAINTER [employer]USH Primary Care Provider [phone] Reason for Visit * Reason Comments Med Refill Encounter Details Date Type Department Care Team (Late st Contact Info) Description 10/29/2023 Refill [facility] [address] [place] [address] [phone] Name, MD Collins [address] [place] [address] Chronic neck pain Social History Tobacco Use [...] the past 12 months, has t he [employer], gas, oil or water company threatened to [...] Description 06/10/2025 2:00 PM EDT Office Visit [facility] MEDICINE [address] [place] [address] Haily Robb FNP [address] [place] [address] documented as of this encounter Visit Diagnoses Diagnosis Chronic neck pain Cervicalgia documented in this encounter Additional Health Concerns Assessment Noted Time PHQ-9 Depression Total Score: 0 08/15/20 23 3:52 PM EST documented as of this encounter Care Teams Piece Goods Packer Relationship Specialty Start Date End Date Haily Robb FNP [address] [place] [address] PCP - General Family Medicine 05/01/22 documented as of this encounter
--- OUTSIDE RECORDS SUMMARY | 2025-05-25 11:30 | XMS_ITS | Encounter Summary ---
Author Organization [employer] Address [address] [facility] 7t [place] [address] Care Team Providers Care Payroll Clerk Name Role Phone [place] [facility] Primary Care Provider [phone] Reason for Visit * Reason Comments Med Refill Encounter Details Date Type Department Care Team ([facility] st Contact Info) Description 09/05/2022 Telephone [facility] MEDICINE [address] [place], [place] [phone] [facility] [address] [place] [address] Med Refill Social History Tobacco Use Types [...] - 09/06/2022 8:18 AM EST TC via P/I#[id number], explained to pt that his [facility] Provided pt the phone number for [...] prescribing, then would you like him on COMPRESSED GASES TESTER? documented in this encounter Plan of Treatment Upcoming Encounters Date Type Department Care Team (Late st Contact Info) Description 06/10/2025 2:00 PM EDT Office Visit [facility] MEDICINE [address] [place] [address] Haily Robb FNP [address] [place] [address] documented as of this encounter Visit Diagnoses Diagnosis Other specified anxiety disorders documented in this encounter Care Teams Payroll Clerk Relationship Specialty Start Date End Date Haily Robb FNP [address] [place] [address] PCP - General Family Medicine 05/01/22 documented as of this encounter
--- OUTSIDE RECORDS SUMMARY | 2025-05-25 11:30 | XMS_ITS | Encounter Summary ---
Author Organization [employer] Address [address] [facility] 7t [place] [address] Care Team Providers Care Herb Grower Name Role Phone Haily Robb Primary Care Provider [phone] Reason for Visit * Reason Comments Med Refill Encounter Details Date Type Department Care Team (Late st Contact Info) Description 04/02/2023 Refill [facility] MEDICINE [address] [place] [phone] Juanjose Barton MD [address] [place] [address] [phone] Chronic pruritus Social History Tobacco Use Types [...] Description 06/10/2025 2:00 PM EDT Office Visit [facility] MEDICINE [address] [place] [phone] Haily Robb FNP [address] [place] [address] documented as of this encounter Visit Diagnoses Diagnosis Chronic pruritus documented in this encounter Additional Health Concerns Assessment Noted Time PHQ-9 Depression Total Score: 0 01/26/20 23 3:38 PM EDT documented as of this encounter Care Teams Herb Grower Relationship Specialty Start Date End Date Haily Robb FNP [address] [place] [address] PCP - General Family Medicine 05/01/22 documented as of this encounter
--- OUTSIDE RECORDS SUMMARY | 2025-05-25 11:30 | XMS_ITS | Encounter Summary ---
Author Organization [employer] Address [address] [facility] 7t [place] [address] Care Team Providers Care Electric Golf Cart Repairers Name Role Phone Haily Robb Primary Care Provider [phone] Encounter Details Date Type Department Care Team (Latest Contact Info) Description 06/01/2022 Abstract [facility] CONVERSIONS Dental, Provider, DDS Social History [...] Description 06/10/2025 2:00 PM EDT Office Visit [facility] MEDICINE [address] [place] [address] Haily Robb FNP [address] [place] [address] documented as of this encounter Visit Diagnoses Not on filedocumented in this encounter Care Teams Electric Golf Cart Repairers Relationship Specialty Start Date End Date Haily Robb FNP [address] [place] [address] PCP - General Family Medicine 05/01/22 documented as of this encounter
--- OUTSIDE RECORDS SUMMARY | 2025-05-25 11:30 | XMS_ITS | Encounter Summary ---
Author Organization [employer] Address [address] [facility] 7t [place] [address] Care Team Providers Care Export Agent Name Role Phone Clarisse [facility] Primary Care Provider [phone] Reason for Visit * Reason Onset Date Comments Results 03/16/2023 Encounter Details Date Type Department Care Team ([facility] st Contact Info) Description 03/16/2023 Telephone [facility] [address] [place], [place] [phone] [facility] [address] [place] [address] Results Social History Tobacco Use Types Packs/Day [...] 03/20/2023 4:06 PM EDT Return T/C to [phone] for below message, No answer. LVM to call back on [phone]. * Telephone Encounter - Kelli Boucher - 03/16/2023 2:04 PM EDT Tc from pt requesting a call in regards to results to recent lab orders. Please contact pt at [phone] (Eritrean speaker) documented in this encounter Plan of Treatment Upcoming Encounters Date Type Department Care Team (Late st Contact Info) Description 06/10/2025 2:00 PM EDT Office Visit [facility] [address] [place] [address] Haily Robb FNP [address] [place] [address] documented as of this encounter Visit Diagnoses Not on filedocumented in this encounter Additional Health Concerns Assessment Noted Time PHQ-9 Depression Total Score: 0 01/26/20 23 3:38 PM EDT documented as of this encounter Care Teams Export Agent Relationship Specialty Start Date End Date Haily Robb FNP [address] [place] [address] PCP - General Family Medicine 05/01/22 documented as of this encounter
--- OUTSIDE RECORDS SUMMARY | 2025-05-25 11:30 | XMS_ITS | Encounter Summary ---
Author Organization [employer] Address 75 [facility] 7t [place] [address] Care Team Providers Care Independent Living Advisor Name Role Phone [place] [facility] Primary Care Provider [phone] Reason for Visit * Reason Onset Date Comments Med Refill 12/13/2023 Encounter Details Date Type Department Care Team ([facility] st Contact Info) Description 12/13/2023 Telephone [facility] 230 [place], [place] [phone] [facility] 230 [place] [address] Med Refill Social History Tobacco Use Types [...] the past 12 months, has t he [employer], gas, oil or water company threatened to [...] 10:24 AM EDT Medication was sent to [facility] on 11/09/23 with 2 refills. * Telephone Encounter - Christine Taylor - 12/13/2023 10:19 AM EDT TC from pt requesting medication refill. Medications needing refill : melatonin 5 MG tablet To be sent to: [facility] - [place], [place] - [address] [facility] documented in this encounter Plan of Treatment Upcoming Encounters Date Type Department Care Team (Late st Contact Info) Description 06/10/2025 2:00 PM EDT Office Visit [facility] [address] [place] [address] [place], Haily, [facility] 230 [place], [place] [phone] documented as of this encounter Visit Diagnoses Not on filedocumented in this encounter Additional Health Concerns Assessment Noted Time PHQ-9 Depression Total Score: 0 08/15/20 23 3:52 PM EST documented as of this encounter Care Teams Independent Living Advisor Relationship Specialty Start Date End Date Haily Robb FNP [address] [place] [address] PCP - General Family Medicine 05/01/22 documented as of this encounter
--- OUTSIDE RECORDS SUMMARY | 2025-05-25 11:30 | XMS_ITS | Encounter Summary ---
Author Organization [employer] Address [address] [facility] [address] 7t [place] [address] Care Team Providers Care Sales Recruitment Specialist Name Role Phone Clarisse [facility] Primary Care Provider [phone] Reason for Visit * Reason Onset Date Comments triage 11/10/2022 Encounter Details Date Type Department Care Team ([facility] st Contact Info) Description 11/10/2022 Telephone [facility] 230 [place], [place] [phone] [facility] 230 [place] [address] triage Social History Tobacco Use Types Packs/Day [...] in office. Pt agrees to come into [facility] for exam. Pt also advised to call [...] Description 06/10/2025 2:00 PM EDT Office Visit [facility] [address] [place] [address] Haily Robb FNP 230 [place] [address] documented as of this encounter Visit Diagnoses Not on filedocumented in this encounter Additional Health Concerns Assessment Noted Time PHQ-9 Depression Total Score: 0 11/03/19 10:32 AM EST documented as of this encounter Care Teams Sales Recruitment Specialist Relationship Specialty Start Date End Date Haily Robb FNP [address] [place] [address] PCP - General Family Medicine 05/01/22 documented as of this encounter
--- OUTSIDE RECORDS SUMMARY | 2025-05-25 11:30 | XMS_ITS | Encounter Summary ---
Author Organization [employer] Address 75 [facility] 7t [place] [address] Care Team Providers Care Biller Name Role Phone [place] [facility] Primary Care Provider [phone] Reason for Visit * Reason Comments Med Refill Encounter Details Date Type Department Care Team ([facility] st Contact Info) Description 08/28/2024 Refill [facility] 230 [place], [place] [phone] [facility] [place] 230 [place] [address] Mixed anxiety and depressive disorder Social History [...] 2:00 PM EDT Office Visit [facility] 230 [place] [address] [facility] [place] [address] [place] [address] documented as of this encounter Goals Goal [...] documented as of this encounter Care Teams Biller Relationship Specialty Start Date End Date [facility] [address] [place] [address] PCP - General Family Medicine 05/01/22 documented as of this encounter
--- OUTSIDE RECORDS SUMMARY | 2025-05-25 11:30 | XMS_ITS | Encounter Summary ---
Author Organization [employer] Address 75 [facility] 7t [place] [address] Care Team Providers Care Front Office Help Name Role Phone [facility] Primary Care Provider [phone] Reason for Visit * Reason Comments Med Refill Encounter Details Date Type Department Care Team (Late Contact Info) Description 01/01/2023 Refill [facility] [address] [place] [address] [facility] 230 [place] [address] Chronic sinusitis, unspecified location Social History Tobacco [...] Department Care Team (Late Contact Info) Description 06/10/2025 2:00 PM EDT Office Visit [facility] [address] [place] [address] Haily Robb FNP [address] [place] [address] documented as of this encounter Visit Diagnoses Diagnosis Chronic sinusitis, unspecified location documented in this encounter Additional Health Concerns Assessment Noted Time PHQ-9 Depression Total Score: 0 11/03/19 23 10:32 AM EST documented as of this encounter Care Teams Front Office Help Relationship Specialty Start Date End Date Haily Robb FNP 230 [place] [address] PCP - General Family Medicine 05/01/22 documented as of this encounter
--- OUTSIDE RECORDS SUMMARY | 2025-05-25 11:30 | XMS_ITS | Encounter Summary ---
Author Organization [employer] Address [address] [facility] [address] 7t [place] [address] Care Team Providers Care Torts Law Professor Name Role Phone [facility] Primary Care Provider [phone] Reason for Visit * Reason Onset Date Comments Medication Question 01/16/2023 Encounter Details Date Type Department Care Team ([facility] st Contact Info) Description 01/16/2023 Telephone [facility] MEDICINE 230 [place], [place] [phone] [facility] 230 [place] [address] Medication Question Social History Tobacco Use Types [...] Description 06/10/2025 2:00 PM EDT Office Visit [facility] MEDICINE 230 [place] [address] Haily Robb FNP [address] [place] [address] documented as of this encounter Visit Diagnoses Not on filedocumented in this encounter Additional Health Concerns Assessment Noted Time PHQ-9 Depression Total Score: 0 11/03/19 23 10:32 AM EST documented as of this encounter Care Teams Torts Law Professor Relationship Specialty Start Date End Date Haily Robb FNP 230 [place] [address] PCP - General Family Medicine 05/01/22 documented as of this encounter
--- OUTSIDE RECORDS SUMMARY | 2025-05-25 11:30 | XMS_ITS | Encounter Summary ---
Author Organization [employer] Address 75 [facility] 7t [place] [address] Care Team Providers Care Acetylene Torch Operator Name Role Phone Clarisse [facility] Primary Care Provider [phone] Reason for Visit * Reason Onset Date Comments Appointment Request 10/08/2023 Encounter Details Date Type Department Care Team ([facility] st Contact Info) Description 10/08/2023 Telephone [facility]INE 230 [place], [place] [phone] [facility] 230 [place] [address] Appointment Request Social History Tobacco Use Types [...] the past 12 months, has t he [employer], gas, oil or water company threatened to [...] gotten any better. Please contact pt at [phone] documented in this encounter Plan of Treatment Upcoming Encounters Date Type Department Care Team (Late st Contact Info) Description 06/10/2025 2:00 PM EDT Office Visit [facility] 230 [place] [address] Haily Robb FNP [address] [place] [address] documented as of this encounter Visit Diagnoses Not on filedocumented in this encounter Additional Health Concerns Assessment Noted Time PHQ-9 Depression Total Score: 0 08/15/20 23 3:52 PM EST documented as of this encounter Care Teams Acetylene Torch Operator Relationship Specialty Start Date End Date Haily Robb FNP 230 [place] [address] PCP - General Family Medicine 05/01/22 documented as of this encounter
--- OUTSIDE RECORDS SUMMARY | 2025-05-25 11:30 | XMS_ITS | Encounter Summary ---
Author Organization [employer] Address 75 [facility] 7t [place] [address] Care Team Providers Care Car Repossessor Name Role Phone Haily Robb Primary Care Provider Reason for Visit * Reason Comments Med Refill Encounter Details Date Type Department Care Team (Late st Contact Info) Description 04/02/2023 Refill [facility] [address] [place] [address] Hollis Rutledge MD 230 [place] [address] Social History Tobacco Use Types Packs/Day Years [...] Description 06/10/2025 2:00 PM EDT Office Visit [facility] 230 [place] [address] Haily Robb FNP [address] [place] [address] documented as of this encounter Visit Diagnoses Not on filedocumented in this encounter Additional Health Concerns Assessment Noted Time PHQ-9 Depression Total Score: 0 01/26/20 23 3:38 PM EDT documented as of this encounter Care Teams Car Repossessor Relationship Specialty Start Date End Date Haily Robb FNP 230 [place] [address] PCP - General Family Medicine 05/01/22 documented as of this encounter
--- OUTSIDE RECORDS SUMMARY | 2025-05-25 11:30 | XMS_ITS | Encounter Summary ---
Author Organization [employer] Address [address] [facility] 7t [place] [address] Care Team Providers Care Receiving Worker Name Role Phone Clarisse [facility] Primary Care Provider [phone] Reason for Visit * Reason Onset Date Comments Nurse Triage 02/16/2023 Encounter Details Date Type Department Care Team ([facility] st Contact Info) Description 02/16/2023 Telephone [facility] 230 [place], [place] [phone] [facility] 230 [place] [address] Nurse Triage Social History Tobacco Use Types [...] - 02/23/2023 2:49 PM EDT T/C to [phone] through [employer] interpreters id - [id number] for below message, pt. Verbally agreed and understood. * Telephone Encounter - Angela Whitman LPN - 02/16/2023 2:48 PM EDT Triage call returned to patient via [employer] [id number]. Patient called with concerns of Left eye burning and tearing at times with blurred vision. No irritant or object in eye at this time. Patient reports that he was seen some time ago in [facility] [place] and was given order to obtain eye drops for dry eye. He is angry that he had to pay for them out of pocket and that they did not help. Patient requesting specifically a referral and declines appts. in [facility] or with Team providers later [...] suggested disposition Override Notes: Patient seen in [facility] [place] and was told to use eye drops several months ago. Patient requesting only referral to [facility]. Video visit not offered Positive Triage Question: [...] The caller accepted this outcome Patient speaks yi documented in this encounter Plan of Treatment Upcoming Encounters Date Type Department Care Team (Late st Contact Info) Description 06/10/2025 2:00 PM EDT Office Visit [facility] 230 [place] [address] Haily Robb FNP [address] [place] [address] documented as of this encounter Visit Diagnoses Not on filedocumented in this encounter Additional Health Concerns Assessment Noted Time PHQ-9 Depression Total Score: 0 01/26/20 23 3:38 PM EDT documented as of this encounter Care Teams Receiving Worker Relationship Specialty Start Date End Date Haily Robb FNP 230 [place] [address] PCP - General Family Medicine 05/01/22 documented as of this encounter
--- OUTSIDE RECORDS SUMMARY | 2025-05-25 11:30 | XMS_ITS | Encounter Summary ---
Author Organization [employer] Address 75 [facility] 7t [place] [address] Care Team Providers Care Focuser Name Role Phone Clarisse [facility] Primary Care Provider Reason for Visit * Reason Onset Date Comments Nurse Triage 02/11/2024 Encounter Details Date Type Department Care Team ([facility] st Contact Info) Description 02/11/2024 Telephone [facility] MEDICINE 230 [place], [place] [phone] [facility] 230 [place] [address] Nurse Triage Social History Tobacco Use Types [...] the past 12 months, has t he [employer], gas, oil or water company threatened to [...] EDT Triage call returned to patient with [facility] interpreter [id number]. Patient reports ongoing issue withleft eye and [...] and she would like him referred to [facility] [employer]. No diagnosis in chart.Advised of [facility] for evaluation today. [...] Reason: Other Override Notes: Being treated with ict security specialist with appt coming in 03/11/24 Video [...] involuntary movements The caller accepted this outcome Senegalese speaker documented in this encounter Plan of Treatment Upcoming Encounters Date Type Department Care Team (Late st Contact Info) Description 06/10/2025 2:00 PM EDT Office Visit [facility]INE 230 [place] [address] Haily Robb FNP 230 [place] [address] documented as of this encounter Goals Goal Patient Goal Type Associated Problems Recent Progress Patient-Stated? Author Patient will adhere to medication regimen General No Mary Moreland documented as of this encounter Visit Diagnoses Not on filedocumented in this encounter Additional Health Concerns Assessment Noted Time PHQ-9 Depression Total Score: 0 08/15/20 23 3:52 PM EST documented as of this encounter Care Teams Focuser Relationship Specialty Start Date End Date Haily Robb FNP [address] [place] [address] PCP - General Family Medicine 05/01/22 documented as of this encounter
--- OUTSIDE RECORDS SUMMARY | 2025-05-25 11:30 | XMS_ITS | Encounter Summary ---
Author Organization [employer] Address 75 [facility] 7t [place] [address] Care Team Providers Care Remote Encoding Operations Supervisor Name Role Phone [place] [facility] Primary Care Provider [phone] Reason for Visit * Reason Onset Date Comments Triage 09/20/2022 Encounter Details Date Type Department Care Team ([facility] st Contact Info) Description 09/20/2022 Telephone [facility] MEDICINE 230 [place], [place] [phone] [facility] 230 [place] [address] Triage Social History Tobacco Use Types Packs/Day [...] 09/20/2022 11:55 AM EST Triage call with [employer]erman Credit Manager ID [id number] Pt reports an area on back that [...] No high acuity concerns reported by caller AZERI SPEAKER The caller accepted this outcome documented in this encounter Plan of Treatment Upcoming Encounters Date Type Department Care Team (Late st Contact Info) Description 06/10/2025 2:00 PM EDT Office Visit [facility] MEDICINE [address] [place] [address] Haily Robb FNP [address] [place] [address] documented as of this encounter Visit Diagnoses Not on filedocumented in this encounter Care Teams Remote Encoding Operations Supervisor Relationship Specialty Start Date End Date Haily oRbb FNP 230 [place] [address] PCP - General Family Medicine 05/01/22 documented as of this encounter
--- OUTSIDE RECORDS SUMMARY | 2025-05-25 11:30 | XMS_ITS | Encounter Summary ---
Author Organization [employer] [facility] Address [address] [facility] 7t [place] [address] Care Team Providers Care Psychologist Personnel Name Role Phone Haily Robb Primary Care Provider [phone] Encounter Details Date Type Department Care Team (Latest Contact Info) Description 06/16/2020 Abstract [facility] CONVERSIONS Dental, Provider, DDS Social History Tobacco [...] Description 06/10/2025 2:00 PM EDT Office Visit [facility] MEDICINE [address] [place] [address] Haily Robb FNP [address] [place] [address] documented as of this encounter Visit Diagnoses Not on filedocumented in this encounter Care Teams Psychologist Personnel Relationship Specialty Start Date End Date Haily Robb FNP [address] [place] [address] PCP - General Family Medicine 05/01/22 documented as of this encounter
[2025-05-25 11:36] LABS: Prostate Specific Antigen 2.05 ng/mL (<0.05-4.0)
== END 2025-05-25 09:42 | disposition home or self-care (01) ==
LOC: HO.LAB 09:41
PROVIDERS: Visit Provider Urology
DX: E29.1 Testicular hypofunction (principal)
CPT/HCPCS: 36415; 84153; 84403; 85027

== ENCOUNTER 2025-06-13 11:48 | Emergency (ER) | payer MEDICAID, SELFPAY ==
--- OUTSIDE RECORDS SUMMARY | 2025-06-10 14:00 | XMS_ITS | Encounter Summary ---
Author Organization [employer] Address [address] [place] [address] Care Team Providers Care Promotions Executive Name Role Phone Haliy Robb Primary Care Provider [phone] Reason for Referral * Consultation (Routine) - Closed Specialty Diagnoses / Procedures Referred By Contneva t Referred To Contact Infectious Diseases Diagnoses Latent tuberculosis Haily Robb FNP [address] [place] [address] Phone: tel: fax: Referral ID Status Reason Start Date Expiration Date V isits Requested Visits Authorized [id number] Closed Specialty Services Required 06/12/2025 06/12/2026 1 1 Reason for Visit * Reason Comments Follow-up Encounter Details Date Type Department Care Team (Late st Contact Info) Description 06/10/2025 2:00 PM EDT Office Visit [facility] [address] [place] [address] Haily Robb FNP [address] [place] [address] Somatic symptom disorder, persistent, moderate (Primary Dx); Latent tuberculosis; Encounter for immunization Social History Tobacco Use Types Packs/Day Years [...] Answer Date Recorded Patient Health Questionnaire-9 Score 10 06/10/2025 Patient Health Questionnaire-9 Score 10 06/10/2025 Last PHQ-9: Questionnaire Data Not on file 1 Housing Stability Answer Date Recorded What is your housing situation today? I do not have housing (Staying with others, in a hotel, in a mcc, living outside on the street, on a beach, in a car, or in a park 06/03/[address] you li ve. Do you have problems with any of the following? None of the above 06/03/2025 Food Insecurity Answer Date Recorded Within the past 12 months, y ou worried that your food would run out before you got money to buy more: Never True 06/03/2025 Within the past 12 months,th e food you bought just didn't last and you didn't have enough money to get more: Never True 09/2024 Transportation Answer Date Recorded In the past 12 months, has l ack of transportation kept you from medical appts, meetings, work or from getting things needed for daily living? Yes, it has kept me from non-medical meetings, work, or getting things that I need 06/03/2025 Utilities Answer Date Recorded In the past 12 months, has t he electric, gas, oil or water company threatened to shut off services in your home? No 06/03/2025 Depression Answer Date Recorded Patient Health Questionnaire-2 Score 2 06/10/2025 Internet Access Answer Date Recorded Internet Access Q1 Yes 06/03/2025 Internet Access Q2 Not on file 06/03/2025 Sex and Gender Information Value Date Recorded Sex Assigned at Male 07/03/2022 10:29 AM EDT Legal Sex Male 10:29 AM EDT Gender Identity Choose not to disclose 10:29 AM EDT Sexual Orientation Choose not to disclose 2021 10:29 AM EDT documented as of this encounter Last Filed Vital Signs Vital Sign Reading Time Taken Comments Blood Pressure 110/82 06/10/2025 2:12 PM EDT Pulse 78 06/10/2025 2:12 PM EDT Temperature 36.5 C (97.7 F) 06/10/2025 2:12 PM EDT Respiratory Rate 18 06/10/2025 2:12 PM EDT Oxygen Saturation - - Inhaled Oxygen Concentration - - Weight 64 kg (141 lb) 06/10/2025 2:12 PM EDT Height 172.7 cm (5' 8 ) 06/10/2025 2:12 PM EDT Body Mass Index 21.44 06/10/2025 2:12 PM EDT documented in this encounter Functional Status * Over the past 2 weeks, how often have you been bothered by any of the following problems? Question Answer Date of Assessment Author Patient Health Questionnaire-2 Score 2 06/10/2025 2:20 PM EDT Ashley Headley MA * Little interest or pleasure in doing things Answer Date of Assessment Author Several days 06/10/2025 2:20 PM EDT Ashley Boothe MA * Feeling down, depressed, or hopeless Answer Date of Assessment Author Several days 06/10/2025 2:20 PM EDT Ashley Boothe MA * Trouble falling or staying asleep, or sleeping too much Answer Date of Assessment Author Nearly every day 06/10/2025 2:20 PM EDT Ashley Dang MA * Feeling tired or having little energy Answer Date of Assessment Author Several days 06/10/2025 2:20 PM EDT Ashley Boothe MA * Poor appetite or overeating Answer Date of Assessment Author Several days 06/10/2025 2:20 PM EDT Ashley Boothe MA * Feeling bad about yourself - or that you are a failure or have let yourself or your family down Answer Date of Assessment Author Several days 06/10/2025 2:20 PM EDT Ashley Boothe MA * Trouble concentrating on things, such as reading the newspaper or watching television Answer Date of Assessment Author Several days 06/10/2025 2:20 PM EDT Ashley Boothe MA * Moving or speaking so slowly that other people could have noticed? Or the opposite - being so fidgety or restless that you have been moving around a lot more than usual. Answer Date of Assessment Author Several days 06/10/2025 2:20 PM EDT Ashley Boothe MA * Thoughts that you would be better off or hurting yourself in some way Answer Date of Assessment Author Not at all 06/10/2025 2:20 PM EDT Ashley Boothe MA * Patient Health Questionnaire-9 Score Answer Date of Assessment Author 10 06/10/2025 2:20 PM EDT Ashley Boothe MA * How difficult have these problems made it for you to do your work, take care of things at home, or get along with other people? Answer Date of Assessment Author Somewhat difficult 06/10/2025 2:20 PM EDT Ashley Jeronimo MA documented as of this encounter Progress Notes * [facility], [facility] - 06/10/2025 2:00 PM EDT SUBJECTIVE: John Ro is a 55 y.o. year old adult with HLD, hx of RODOLFO on methadone, anxiety/depression with somatic sx disorder and hypogonadism who presents for follow up. Interval History - Pt again with multiple ED and or walk in center visits was various complains since last OV. >20 v visits in the past 6 months. All with largely unremarkable work ups. Today he is very concerned that he has cirrhosis and believes he was told this at some point by a provider. He has no history of chronic liver disease and his liver was unremarkable on recent ED imaging. PMH -Positive T spot in 2023 which was repeated in the emergency department due to patient report of weight loss. Repeat positive. No evidence of active TB on imaging. -- saw [facility] TB clinic. Patient declined tx of latent TB----today pt reports he was told by TB clinic he couldn't have treatment. Note was reviewed and this is not the case. Pt reportedly declined. Today states he would like treatment. - CT abdomen pelvis from 12/01/2024 showed 3 mm right upper and lower lobe pulmonary nodules but wasotherwise unremarkable. 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 At last visit patient was trialed on amitriptyline. He is unable to tell me if heis taking this today or if his symptoms have improved. -Completed echocardiogram 10/29/2024 for evaluation of lower extremity edema which was negative withnormal ejection fracture 09/24/24-seen in walk-in center with Dr. Balderrama with persistent bilateral lower extremity edema. Lasix was increased to 40 mg twice daily with symptom improvement. 09/19/24-[place]. H[place] [facility] [place] for persistent proteinuria. Last note mentions positive P-ANCA with plan to repeat labs in 3 months however did not feel edema was related to kidneys. Renal function normal with minimal proteinuria 08/[place] [place] with acute lower extremity edema and UTI. Ultrasound negative for DVT. BNP within normal limits L-spine xray 07/24/24--spondylosis L4 and L5-S1; was referred to physical therapy which he was unable to tolerate 07/2024--hospitalized at [facility] with AMS in setting of acute urinary retention and BPH. Labs includingTSH and creatinine kinase all WNL negative CT angio chest abdomen during hospitalization. 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 Hernandez [facility] Eye care--dx'd with meibomian gland disease (dry [...] active: yes Partners are: control: Problem List[1] Surgical History[2] Family History[3] Review of Systems Constitutional: Negative for activity change, diaphoresis, fatigue, fever and unexpected weight change. Eyes: Negative for visual disturbance. Respiratory: Negative for apnea, cough, chest tightness and shortness of breath. Cardiovascular: Negative for chest pain, palpitations and leg swelling. Gastrointestinal: Negative for abdominal pain and nausea. Neurological: Negative for dizziness, syncope, light-headedness and headaches. OBJECTIVE: Vitals: 06/10/25 1412 BP: 110/82 Pulse: 78 Resp: 18 Temp: 97.7 ??F (36.5 ??C) Physical Exam Constitutional: Appearance: Normal appearance. HENT: Head: Normocephalic. Right Ear: External ear normal. Left Ear: External ear normal. Nose: Nose normal. Eyes: Conjunctiva/sclera: Conjunctivae normal. Cardiovascular: Rate and Rhythm: Normal rate and regular rhythm. Heart sounds: Normal heart sounds. Pulmonary: Effort: Pulmonary effort is normal. Breath sounds: Normal breath sounds. Musculoskeletal: Right lower leg: No edema. Left lower leg: No edema. Skin: General: Skin is warm and dry. Capillary Refill: Capillary refill takes less than 2 seconds. Neurological: General: No focal deficit present. Mental Status: He is alert and oriented to person, place, and time. Psychiatric: Mood and Affect: Mood normal. Behavior: Behavior normal. ASSESSMENT/PLAN Somatic symptom disorder - Concerned that symptoms are worsening. Notably patient has stopped attending [facility] since his positive T spot and has very little social interaction. States he spends most of the day on his phone orwatching TV and worrying about his body. Patient agrees that attending [facility] was beneficial for hissymptom management. We discussed that latent TB is not contagious and would not prevent him from attending as long as he has correct documentation. I contacted care management who will help patient to navigate what is needed to reconnect with services - Unclear which psychiatric medications patient is currently taking as he has a long history of noncompliance - Message sent to patient's psychiatrist, Dr. Oliver, at [facility] about my concerns - Patient will continue to work with outpatient therapist Heather through [facility] Latent TB - Patient states that he would like to move forward with treatment. He was provided with contact information for [facility] TB clinic. Will place new referral in case this is needed Follow Up: 6 months, sooner PRN Medications Ordered Prior to Encounter[4] Belarusian Translation: Provided by [facility] staff member [1] Patient Active Problem List Diagnosis Helicobacter pylori gastritis Positive TB test Hyperlipidemia Methadone maintenance therapy patient Mixed anxiety and depressive disorder Renal cyst, left Submandibular lymphadenopathy Vitamin D deficiency Tobacco use Neck pain on left side Hypogonadism in male Scrotal pain Moderate somatic symptom disorder Opioid dependence in remission (CMS/HCC) (HCC) Odynophagia Chronic pruritus Dental calculus Generalized gingival recession, moderate Partial edentulism Epigastric pain Shortness of breath Nasal congestion Pain in both lower extremities Lumbar radiculopathy Urinary retention Bilateral lower extremity edema Normal oral exam Interstitial lung disease (CMS/HCC) (HCC) Lung nodules LLQ pain Seasonal allergies Dizziness Tinnitus of both ears Decreased hearing of both ears Cellulitis of lower extremity Sore throat Acute midline low back pain without sciatica Stasis dermatitis Cellulitis of both feet Drug-induced constipation Benign prostatic hyperplasia with urinary frequency Chronic bilateral low back pain without sciatica Chronic nonintractable headache [2] No past surgical history on file. [3] Family History Problem Relation Name Age of Onset Diabetes Mother Heart disease Mother Other (diabetic retinopathy, cataract) Mother Colon cancer Neg Hx Prostate cancer Neg Hx [4] Current Outpatient Medications on File Prior to Visit Medication Sig Dispense Refill Acetaminophen 500 MG capsule Take 1 capsule (500 mg) by mouth every 8 (eight) hours if needed for moderate pain or fever. 30 capsule 0 albuterol (Ventolin HFA) 108 (90 Base) MCG/ACT inhaler INHALE 2 PUFFS BY MOUTH EVERY 4 HOURS NEEDED FOR WHEEZING OR SHORTNESS OF BREATH 18 g 11 alfuzosin ER (Uroxatral) 10 MG 24 hr tablet Take 1 tablet by mouth at bedtime. amitriptyline (Elavil) 25 MG tablet TAKE 1 TABLET BY MOUTH AT BEDTIME 30 tablet 0 BD Hypodermic Needle 18G X 1 misc USE DIRECTED BD Plastipak Syringe 3 ML misc USE DIRECTED benzocaine-menthol (Chloraseptic) 6-10 MG lozenge Dissolve 1 [...] times daily. 26 mL 12 cyclobenzaprine (Flexeril) 10 MG tablet Take 1 tablet (10 mg) by mouth 3 times daily for 10 days. 30 tablet 0 Diclofenac Sodium (Voltaren) 1 % gel Use [...] 2 fluticasone (Flonase) 50 MCG/ACT nasal spray INSTILL 1 SPRAY IN EACH NOSTRIL ONCE DAILY 48 g 0 furosemide (Lasix) 20 MG tablet TAKE 2 TABLETS BY MOUTH EVERY DAY 180 tablet 1 GAS RELIEF 125 MG capsule TAKE 1 CAPSULE BY MOUTH 4 TIMES A DAY IN THE MORNING, AT NOON, IN THE EVENING, AND AT BEDTIME NEEDED FOR GAS 30 capsule 1 hydrOXYzine HCl (Atarax) 25 MG tablet TAKE 1 TABLET BY MOUTH EVERY 6 HOURS NEEDED FOR ANXIETY ORFOR ITCHING 120 tablet 0 ipratropium (Atrovent) 0.03 % nasal spray Administer 1 spray into each nostril every 12 (twelve) hours. 30 mL 12 Ketotifen Fumarate 0.035 % solution Administer 1 [...] DAY melatonin 5 MG tablet TAKE 1 OR 2 TABLETS BY MOUTH EVERY DAY AT BEDTIME NEEDED 60 tablet 2 methadone (Dolophine) 10 MG tablet Take 29 mg by mouth Once per day. naproxen (Naprosyn) 500 MG tablet Take 1 tablet (500 mg) by mouth if needed in the morning and at bedtime for mild pain. 40 tablet 1 omeprazole (PriLOSEC) [address] capsule TAKE 1 CAPSULE BY MOUTH TWICE DAILY BEFORE BREAKFAST 180 capsule 1 polycarbophil (Fibercon) 625 MG tablet Take 1 [...] every 6 (six) hours. 473 mL 0 SUMAtriptan (Imitrex) 50 MG tablet Take 1 tablet (50 mg) by mouth 1 (one) time if needed for migraine for up to 1 dose. May repeat dose once in 2 hours if no relief. Do not exceed 2 doses in 24 hours. 9 tablet 0 tamsulosin (Flomax) 0.4 MG 24 hr capsule Take 0.8 mg by mouth Once per day. testosterone cypionate (Depo-Testosterone) 200 MG/ML injection Inject 0.5 mL into the shoulder, thigh, or buttocks once a week. triamcinolone (Kenalog) 0.1 % ointment APPLY TOPICALLY TWICE DAILY 30 g 1 [DISCONTINUED] amitriptyline (Elavil) 25 MG tablet Take 1 tablet (25 mg) by mouth at bedtime. 30 tablet 0 [DISCONTINUED] fluticasone (Flonase) 50 MCG/ACT nasal spray Administer 2 sprays into each nostril Once per day. Shake gently. Before first use, prime pump. After use, clean tip and replace cap.INSTILL 2 SPRAYS IN EACH NOSTRIL ONCE DAILY 48 g 3 [DISCONTINUED] fluticasone (Flonase) 50 MCG/ACT nasal spray Use 1 spray each nostril daily. Shake gently. Before first use, prime pump. After use, clean tip and replace cap. 16 g 2 No current facility-administered medications on file prior to visit. documented in this encounter Plan of Treatment Scheduled Referrals Name Type Priority Associated Diagnoses Orde r Schedule Referral to TB Clinic Outpatient Referral Routine Latent tuberculosis Expected: 06/12/2025 (Approximate), Expires: 06/12/2026 documented as of this encounter Goals Goal Patient Goal Type Associated Problems Recent Progress Patient-Stated? Author Patient will adhere to medication regimen General No Mary Moreland documented as of this encounter Visit Diagnoses Diagnosis Somatic symptom disorder, persistent, moderate- Primary Latent tuberculosis Nonspecific reaction to tuberculin skin test without active tuberculosis Encounter for immunization documented in this encounter Additional Health Concerns Assessment Noted Time PHQ-9 Depression Total Score: 10 025 2:20 PM EDT documented as of this encounter Care Teams Promotions Executive Relationship Specialty Start Date End Date Haily Robb FNP [address] [place] [id number] PCP - General Family Medicine 05/01/22 documented as of this encounter
--- NOTE | ~2025-06-13 | XR_ITS ---
CLINICAL HISTORY: constipation 1 view abdomen Comparison: 03/01/2025 Findings: Normal bowel gas pattern. No abnormal calcifications. No obvious pneumoperitoneum or pneumatosis. No acute fractures Impression: A moderate amount of retained stool is present throughout the colon. The pattern is nonobstructed. This document has been electronically signed by: Kb Andrade MD on 06/13/2025 13:48:34
[2025-06-13 12:05] VITALS: BP 111/59; PULSE 70; RESP 15; TEMP 36.6; O2SAT 97; BMI 19.1
--- NOTE | 2025-06-13 12:10 | ED_ITS ---
HPI - General Adult General Chief complaint: General Medical Stated complaint: dizzy Time Seen by Provider: 06/13/25 13:02 Source: patient and RN notes reviewed Mode of arrival: ambulatory Limitations: no limitations History of Present Illness ED Provider: Tonia Yang PA-C HPI narrative: This is a 55-year-old male, with a past medical history of constipation, BPH, hep C, GERD, anxiety, hypertension, who presents emergency department with complaints of multiple complaints. Patient states that he has had generalized fatigue, decreased energy, decreased appetite, and constipation. Denies any sick contacts. He denies any fevers, chills, cough chest pain, shortness of breath, nausea, vomiting, vision changes, severe headache, dizziness. No urinary symptoms. Denies taking any medications at home to treat his current symptoms. No other complaints or concerns at this time. MD complaint: Multiple complaints Relieving factors: none Exacerbating factors: none Associated symptoms: denies other symptoms Treatments prior to arrival: none Related Data Home Medications ?Medication ?Instructions ?Recorded ?Confirmed cholecalciferol (vitamin D3) 50 50 mcg PO DAILY 04/20/25 mcg (2,000 unit) capsule (Vitamin D3) melatonin 5 mg tablet 5 - 10 mg PO BEDTIME PRN 08/2504/20/25 methadone 40 mg soluble tablet 29 mg PO DAILY 02/28/25 04/20/25 pantoprazole 40 mg tablet,delayed 40 mg PO DAILY 04/1004/20/25 release Previous Rx's ?Medication ?Instructions ?Recorded furosemide 20 mg tablet (Lasix) 20 mg PO DAILY #90 tab s 08/29/24 syringe (disposable) 3 mL (BD #25 ea 11/27/24 Luer-Vira Syringe) ibuprofen 400 mg tablet 400 mg PO Q6H PRN pain #14 t abs 12/12/24 docusate sodium 100 mg capsule 100 mg PO BEDTIME PRN c onstipation 02/27/25 #90 caps famotidine 20 mg tablet 20 mg PO DAILY PRN GERD #90 tabs 02/27/25 polyethylene glycol 3350 17 17 g PO DAILY constipation 30 days 02/27/25 gram/dose oral powder (Miralax) #510 grams sucralfate 1 gram tablet 1 g PO TID PRN Epigastric discomfort, gastritis #60 tabs tamsulosin 0.4 mg capsule 0.4 mg PO BEDTIME 90 days #9 0 caps 04/07/25 testosterone cypionate 200 mg/mL 200 mg IM Q2W 28 days #2 mL 04/07/25 intramuscular oil bisacodyl 5 mg tablet,delayed 20 mg (4 x 5 mg) PO ONCE 1 day #4 04/10/25 release (Dulcolax (bisacodyl)) tabs polyethylene glycol 3350 17 238 g PO ONCE #238 grams 0 04/10/25 gram/dose oral powder (Miralax) needle (disp) 22 G 22 gauge x 1 #30 ea 04/21/25 needle (disp) 18 G 18 gauge x 1 #30 ea 04/23/25 (BD Regular Bevel Gillett) cyclobenzaprine 5 mg tablet 5 mg PO TID PRN muscle spa sm 5 04/29/25 days #20 tabs prednisone 20 mg tablet 40 mg (2 x 20 mg) PO DAILY 5 days 04/29/25 #10 tabs docusate calcium 240 mg capsule 240 mg PO DAILY #30 ca ps 06/13/25 polyethylene glycol 3350 17 17 g PO DAILY #119 grams 1 gram/dose oral powder (Miralax) Allergies Allergy/AdvReac Type Severity Reaction Status Date / Time SEAFOOD Allergy Severe ANAPHYLAXIS Uncoded 06/13/25 12:07 shellfish Allergy Severe Anaphylaxis Uncoded 06/13/25 12:07 Review of Systems 2 Review of Systems: Constitutional : No Fever, No Chills ENT/Mouth : No sore throat, No Rhinorrhea Eyes: No Eye Pain, No Swelling, No Redness Cardiovascular : No Chest Pain, No SOB Respiratory : No Cough, No Sputum Gastrointestinal : No Nausea, No Vomiting, No Diarrhea, No abdominal Pain Genitourinary : No Dysuria, No Hematuria Musculoskeletal : No joint pain, No Myalgias, No Joint Swelling Skin : No Skin Lesions Neuro : No Weakness, No Numbness, No Headache All other systems reviewed and are negative Yes all other systems are reviewed and are negative Constitutional: Constitutional: Reports as per [facility] Past Medical History Medical History Constipation Anemia Hx of substance abuse Smoker History of Helicobacter pylori infection Spinal pain Hypogonadism Erectile dysfunction Hx: UTI (urinary tract infection) BPH (benign prostatic hyperplasia) Hx of hepatitis C GERD (gastroesophageal reflux disease) Anxiety and depression HTN (hypertension) Murmur Surgical History Hx of cystoscopy Family History Family History Mother Diabetes Social History Social History Unable to assess alcohol history related to: Unknown Alcohol intake: former Patient Tobacco Use Status: Current everyday Tobacco user Use of substances other than those prescribed or required for medical reasons: Unknown Substance Use Type: Crack/Cocaine and Heroin Advance Directives: No Advance Directives Information Provided: No Do you have a plan to hurt others: No Plan Current occupational status: unemployed Physical Exam ED Vital Signs: Vital Signs - 24 hr 06/13/25 12:05 06/13/25 14:35 06/13/25 14:36 Temperature 98 F Pulse Rate 70 60 71 Respiratory Rate 15 Blood Pressure 111/59 L 122/61 133/67 Pulse Oximetry 97 Oxygen Delivery Method Room Air 06/13/25 14:36 06/13/25 16:06 Temperature 98.7 F Pulse Rate 72 72 Respiratory Rate 16 Blood Pressure 123/68 123/68 Pulse Oximetry 95 Oxygen Delivery Method Room Air BMI result Body Mass Index 19.1 Const General: cooperative, comfortable and no acute distress Orientation/consciousness: patient oriented x3 Limitations: no limitations HENMT Head: Yes normal to inspection, Yes normocephalic and Yes atraumatic Ears: hearing grossly normal bilaterally General nose exam: Normal external nose present Face and sinus: Yes normal facial exam Mouth: Normal oral and palatal mucosa present, oropharynx normal and moist mucous membranes Throat: Yes posterior oropharynx normal Eyes General: appearance normal, both eyes and all related structures Eyelids: Yes eyelids normal Conjunctivae: conjunctivae normal Sclerae: sclerae normal Pupils: Equal, round and reactive pupils present EOM: EOMs intact bilaterally Neck Neck: Yes normal visual inspection, Yes full ROM and Yes no lymphadenopathy Lymphatic: no lymphadenopathy noted Chest Chest palpation & inspection: normal inspection of the chest Resp Effort & Inspection: normal respiratory effort and able to speak in complete sentences Auscultation: clear to auscultation bilaterally, no crackles, no rales, no rhonchi and no wheezes Cardio Rate: regular rate Rhythm: regular rhythm Heart sounds: S1 normal heart sound present and S2 normal heart sound present GI Inspection: Yes normal to inspection Skin General skin exam: no rashes or lesions noted Trauma: no lacerations or abrasions Wounds: no wounds Neuro General: patient oriented x3 and moves all extremities Cranial nerves: Yes CN's II-XII intact bilaterally and Yes Equal, round and reactive pupils present Cognition (Neuro): normal cognition Gait exam (Neuro): Normal gait present Motor exam (neuro): 5/5 motor strength present throughout and Pronator motor function not present Pupils: Normal pupillary reactivity/response: bilateral Extrem General: Yes normal to inspection Right upper extremity: normal to inspection Left upper extremity: normal to inspection Right lower extremity: normal to inspection Left lower extremity: normal to inspection Course Course Course Narrative: This is a Rapid Medical Examination (RME) performed by Sushil Rosales PA-C in triage. Full HPI, ROS, assessment and treatment plan per primary provider in the Main ED. Hx: 55 yo M here for eval of dizziness, generalized weakness and epigastric abdominal pain x5 days. pain does not radiate. endorses normal PO intake. no N/V/D. admits to constipation, no BM in 2 days, states he is not passing flatus. reports I feel fever inside . denies hx similar. Plan: labs, UA, ekg, KUB Medications Administered Discontinued Medications Generic Name Dose Route Start Last Admin Trade Name Freq PRN Reason Stop Dose Admin Lactated Ringer's 1,000 mls @ 999 mls/hr 06/13/25 14:06 06/13/25 14:31 Lr IV 06/13/25 15:06 Not Given .Q1H1M ONE Medical Decision Making Medical Decision Making [facility] Narrative: This is a 55-year-old male, with a past medical history of constipation, BPH, hep C, GERD, anxiety, hypertension, who presents emergency department with complaints of multiple complaints. On arrival, vital signs within normal limits. He is speaking in full sentences under no acute distress. He is neurologically intact with no focal deficits. Patient with concerns of decreased appetite, fatigue, generalized malaise over the last 5 days. No fevers, chills. He does express some constipation. He had a normal physical exam, abdomen is soft and nontender. Labs were obtained prior to my evaluation, he has no leukocytosis, stable H&H, chemistry revealing slight elevation in T bili at 1.5, this is consistent with his previous labs he has had in the past. Negative troponin. Urine does not appear to be infected. KUB x-ray was also obtained, no obstructive pattern. His abdomen is soft, last bowel movement was several days ago. EKG with no acute ischemic changes. Patient states that he is concerned as he is drinking less fluids, I offered that we can administer IV fluids, which he eventually refused. He states that he just wants to be tested for COVID and flu. 3:24 PM 06/13/2025 (Tonia Yang PA-C): Flu test negative, COVID test invalid, had to reorder. 5:32 PM 06/13/2025 (Tonia Yang PA-C): COVID test negative. Discussed overall workup with patient. He did refused IV fluids. He is not orthostatic. He states that he is feeling much better, he states that he ate, and is no longer symptomatic. He would like to be discharged home. His overall workup today was reassuring. Given strict return precautions, stable for discharge. Differential Diagnosis Differential Diagnoses: The differential diagnosis associated with the presentation includes COVID, flu, electrolyte derangement, constipation, viral illness Admission/Observation Consideration of admission/observation: Escalation of care including admission/observation considered Lab Data [facility] Lab Attestation statement: I reviewed the patient's lab results. See MDM and course 06/13/25 12:28 06/13/25 12:28 Labs: Lab Results 06/13/25 06/13/25 06/13/25 Range/Units 12:28 12:33 14:15 WBC 7.2 (4.8-10.8) X10*3/uL RBC 4.33 L (4.60-5.80) X10*6/uL Hgb 14.0 (14.0-18.0) g/dl Hct 42.0 (42.0-52.0) % MCV 97.0 (80.0-98.0) fL MCH 32.3 (27.0-33.0) pg MCHC 33.3 (31.0-36.0) g/dl RDW 13.1 (11.0-16.0) % Plt Count 201 (160-400) X10*3/uL MPV 11.1 (9.4-12.4) fL Immature Gran % (Auto) 0.3 (0.0-0.4) % Neut % (Auto) 76.2 H (45-73) % Lymph % (Auto) 15.9 L (20-40) % [place] % (Auto) 5.8 (2-11) % Eos % (Auto) 1.1 (0-4) % Baso % (Auto) 0.7 (0-2) % Lymph # (Auto) 1.2 (1.2-4.9) X10*3/uL [place] # (Auto) 0.4 (0.1-1.2) X10*3/uL Eos # (Auto) 0.1 (0.0-0.4) X10*3/uL Baso # (Auto) 0.1 (0.0-0.2) X10*3/uL Abs Immat Gran (auto) 0.02 (0.00-0.03) X10*3/uL Absolute Neuts (auto) 5.5 (2.0-8.3) x10*3/uL Absolute Nucleated RBC 0.000 (0.0-0.012) X10*3/uL Nucleated RBC % (auto) 0.0 (0.0-0.2) /100WBC Sodium 138 (135-145) mmol/L Potassium 4.3 (3.3-5.1) mmol/L Chloride 102 (96-108) mmol/L Carbon Dioxide 31 H (22-29) mmol/L Anion Gap 9 L (12-20) BUN 14 (9-16) mg/dL Creatinine 0.99 (0.5-1.4) mg/dL Estim Creat Clear Calc 70.4 Estimated GFR > 60 Random Glucose 100 (60-115) mg/dL Calcium 9.5 (8.4-10.2) mg/dL Magnesium 1.9 (1.6-2.6) mg/dL Total Bilirubin 1.5 H (0.0-1.0) mg/dL AST 24 (5-37) U/L ALT 18 (0-40) U/L Alkaline Phosphatase 50 (39-117) U/L Troponin I High Sens < 2.7 (<3.5-35.0) ng/L Total Protein 7.5 (6.5-8.0) g/dL Albumin 4.9 (3.5-5.0) g/dL Lipase 19 (8-78) U/L Urine Color Yellow Urine Appearance Clear Urine pH 8.5 (5.0-9.0) Ur Specific [place] 1.020 (1.005-1.025) Urine Protein Negative (Neg-Trace) mg/dL Urine Glucose (UA) Negative (Negative) mg/dL Urine Ketones Negative (Negative) mg/dL Urine Blood Negative (Negative) Urine Nitrite Negative (Negative) Ur Leukocyte Esterase Negative (Negative) COVID-19 (MEGAN) Invalid (Negative) COVID-19 Clin Com See Note Influenza Type A (GEORGI) Negative (Negative) Influenza Type B (GEORGI) Negative (Negative) Influenza A & B Note See Note 06/13/25 Range/Units 15:10 WBC (4.8-10.8) X10*3/uL RBC (4.60-5.80) X10*6/uL Hgb (14.0-18.0) g/dl Hct (42.0-52.0) % MCV (80.0-98.0) fL MCH (27.0-33.0) pg MCHC (31.0-36.0) g/dl RDW (11.0-16.0) % Plt Count (160-400) X10*3/uL MPV (9.4-12.4) fL Immature Gran % (Auto) (0.0-0.4) % Neut % (Auto) (45-73) % Lymph % (Auto) (20-40) % [place] % (Auto) (2-11) % Eos % (Auto) (0-4) % Baso % (Auto) (0-2) % Lymph # (Auto) (1.2-4.9) X10*3/uL [place] # (Auto) (0.1-1.2) X10*3/uL Eos # (Auto) (0.0-0.4) X10*3/uL Baso # (Auto) (0.0-0.2) X10*3/uL Abs Immat Gran (auto) (0.00-0.03) X10*3/uL Absolute Neuts (auto) (2.0-8.3) x10*3/uL Absolute Nucleated RBC (0.0-0.012) X10*3/uL Nucleated RBC % (auto) (0.0-0.2) /100WBC Sodium (135-145) mmol/L Potassium (3.3-5.1) mmol/L Chloride (96-108) mmol/L Carbon Dioxide (22-29) mmol/L Anion Gap (12-20) BUN (9-16) mg/dL Creatinine (0.5-1.4) mg/dL Estim Creat Clear Calc Estimated GFR Random Glucose (60-115) mg/dL Calcium (8.4-10.2) mg/dL Magnesium (1.6-2.6) mg/dL Total Bilirubin (0.0-1.0) mg/dL AST (5-37) U/L ALT (0-40) U/L Alkaline Phosphatase (39-117) U/L Troponin I High Sens (<3.5-35.0) ng/L Total Protein (6.5-8.0) g/dL Albumin (3.5-5.0) g/dL Lipase (8-78) U/L Urine Color Urine Appearance Urine pH (5.0-9.0) Ur Specific [place] (1.005-1.025) Urine Protein (Neg-Trace) mg/dL Urine Glucose (UA) (Negative) mg/dL Urine Ketones (Negative) mg/dL Urine Blood (Negative) Urine Nitrite (Negative) Ur Leukocyte Esterase (Negative) COVID-19 (MEGAN) Negative (Negative) COVID-19 Clin Com See Note Influenza Type A (GEORGI) (Negative) Influenza Type B (GEORGI) (Negative) Influenza A & B Note Independent Interpretation I performed an independent interpretation of an: EKG Interpretation: EKG normal sinus rhythm at a ventricular rate of 64 beats per minute, NC interval 140, QT QTC 362/373, no acute ischemic changes. Radiology Impression Discussion of test interpretation with radiology: I have reviewed the radiologist's reading. Radiologist Impression: Findings: Normal bowel gas pattern. No abnormal calcifications. No obvious pneumoperitoneum or pneumatosis. No acute fractures Impression: A moderate amount of retained stool is present throughout the colon. The pattern is nonobstructed. This document has been electronically signed by: Kb Andrade MD on 06/13/2025 13:48:34 Dictated By: Kb Andrade MD Discharge Plan Discharge Clinical Impression: Acute viral syndrome, Constipation Patient Disposition: Home, Self-Care Instructions: Constipation (ED), High Fiber Diet (ED), Viral Syndrome (ED) Additional Instructions: You were seen in the emergency department and your overall workup today was reassuring. You tested negative for influenza. You do have a moderate amount of retained stool throughout your colon, taking laxatives or stool softener can be beneficial. Please get plenty of rest, drink plenty of fluids. Please follow-up with your primary care physician regarding this visit. Your urine does not appear to be infected. If any new or worsening symptoms occur including but not limited to severe chest pain, shortness of breath, please seek emergent care. Prescriptions: New docusate calcium 240 mg capsule 240 mg PO DAILY Qty: 30 0RF polyethylene glycol 3350 [Miralax] 17 gram/dose powder 17 g PO DAILY Qty: 119 0RF No Action (DME) syringe (disposable) [BD Luer-Vira Syringe] 3 mL syringe See Rx Instructions .Route Qty: 25 0RF Rx Instructions: As directed 1 syringe [id number] 2 syringes total per month for T injection (DME) needle (disp) 22 G 22 gauge x 1 needle See Rx Instructions .Route Qty: 30 0RF Rx Instructions: As directed to inject testosterone (DME) needle (disp) 18 G [BD Regular Bevel Gillett] 18 gauge x 1 needle See Rx Instructions .Route Qty: 30 0RF Rx Instructions: As directed to draw testosterone cholecalciferol (vitamin D3) [Vitamin D3] 50 mcg (2,000 unit) Capsule 50 mcg PO DAILY methadone 40 mg tablet,soluble 29 mg PO DAILY ibuprofen 400 mg tablet 400 mg PO Q6H PRN (Reason: pain) Qty: 14 0RF sucralfate 1 gram tablet 1 g PO TID PRN (Reason: Epigastric discomfort, gastritis) Qty: 60 0RF cyclobenzaprine 5 mg tablet 5 mg PO TID PRN (Reason: muscle spasm) 5 Days Qty: 20 0RF prednisone 20 mg tablet 40 mg PO DAILY 5 Days Qty: 10 0RF furosemide [Lasix] 20 mg tablet 20 mg PO DAILY Qty: 90 0RF pantoprazole 40 mg tablet,delayed release (DR/EC) 40 mg PO DAILY bisacodyl [Dulcolax (bisacodyl)] 5 mg tablet,delayed release (DR/EC) 20 mg PO ONCE 1 Days Qty: 4 0RF Rx Instructions: Take four tablets pre colonoscopy instructions polyethylene glycol 3350 [Miralax] 17 gram/dose powder 238 g PO ONCE Qty: 238 0RF Rx Instructions: per colonoscopy prep instructions melatonin 5 mg tablet 5 - 10 mg PO BEDTIME PRN famotidine 20 mg tablet 20 mg PO DAILY PRN (Reason: GERD) Qty: 90 1RF Rx Instructions: Take one tablet daily at bedtime as needed polyethylene glycol 3350 [Miralax] 17 gram/dose powder 17 g PO DAILY 30 Days Qty: 510 2RF Rx Instructions: Take 17G (one cap full) daily with 8oz of water docusate sodium 100 mg capsule 100 mg PO BEDTIME PRN (Reason: constipation) Qty: 90 0RF Rx Instructions: Take one tablet at bedtime as needed for constipation tamsulosin 0.4 mg capsule 0.4 mg PO BEDTIME 90 Days Qty: 90 1RF testosterone cypionate 200 mg/mL oil 200 mg IM Q2W 28 Days Qty: 2 5RF Interventions: ED Discharge Assessment Last Done: 06/13/25 16:06 Discharge Date/Time: 06/13/25 16:08 Print Language: Estonian
--- NOTE | 2025-06-13 12:12 | ECG_ITS ---
Test Reason : EPIGASTRIC PAIN Blood Pressure : */* mmHG Vent. Rate : 64 BPM Atrial Rate : 64 BPM P-R Int : 140 ms QRS Dur : 74 ms QT Int : 362 ms P-R-T Axes : 45 26 23 degrees QTcB Int : 373 ms Normal sinus rhythm Normal ECG When compared with ECG of 29-Apr-2025 10:34, No significant change was found Referred By: Fay Rosales Electronically Signed By: JHONATAN SANTLILAN MD
[2025-06-13 12:33] LABS: MANUAL DIFF FLAG NO
--- OUTSIDE RECORDS SUMMARY | 2025-06-13 12:39 | XMS_ITS | Encounter Summary ---
Author Organization [employer] Address [address] [facility] [address] [place] [address] Care Team Providers Care Corporate Event Planner Name Role Phone [facility] Primary Care Provider [phone] Reason for Visit * Reason Comments Med Refill Encounter Details Date Type Department Care Team (Late st Contact Info) Description 01/01/2023 Refill [facility] [address] [place], [place] [phone] [facility] [address] [place] [address] Chronic sinusitis, unspecified location Social History Tobacco [...] documented as of this encounter Care Teams Corporate Event Planner Relationship Specialty Start Date End Date Haily Robb FNP [address] [place] [id number] PCP - General Family Medicine 05/01/22 documented as of this encounter
--- OUTSIDE RECORDS SUMMARY | 2025-06-13 12:39 | XMS_ITS | Encounter Summary ---
Author Organization [employer] Address [address] [place] [address] Care Team Providers Care Retirement Plan Specialist Name Role Phone [place] [facility] Primary Care Provider [phone] Reason for Visit * Reason Onset Date Comments Medication Question 08/24/2022 Encounter Details Date Type Department Care Team ([facility] st Contact Info) Description 08/24/2022 Telephone [facility] MED[facility]INE [address] [place] [address] [facility] [address] [place] [address] Medication Question Social History Tobacco Use Types [...] a call back. States went to picker and packer his medication and they gave him vitamin C and he would like to know if he should be taking them again . Please call to clarify. documented in this encounter Plan of Treatment Not on file documented as of this encounter Visit Diagnoses Not on filedocumented in this encounter Care Teams Retirement Plan Specialist Relationship Specialty Start Date End Date Haily Robb FNP [address] [place] [id number] PCP - General Family Medicine 05/01/22 documented as of this encounter
--- OUTSIDE RECORDS SUMMARY | 2025-06-13 12:39 | XMS_ITS | Encounter Summary ---
Author Organization [employer] Address [address] [facility] [address] [place] [address] Care Team Providers Care Major Assembly Lineman Name Role Phone [facility] Primary Care Provider [phone] Reason for Visit * Reason Onset Date Comments Med Refill 12/13/2023 Encounter Details Date Type Department Care Team ([facility] st Contact Info) Description 12/13/2023 Telephone [facility] MEDICINE [address] [place], [place] [phone] [facility] [address] [place] [address] Med Refill Social History Tobacco Use Types [...] 10:24 AM EDT Medication was sent to [facility] on 11/09/23 with 2 refills. * Telephone Encounter - Christine Taylor - 12/13/2023 10:19 AM EDT TC from pt requesting medication refill. Medications needing refill : melatonin 5 MG tablet To be sent to: [facility] [place], [place] - [address] [facility] documented in this encounter Plan of Treatment Not on file documented as of this encounter Visit Diagnoses Not on filedocumented in this encounter Additional Health Concerns Assessment Noted Time PHQ-9 Depression Total Score: 0 08/15/20 23 3:52 PM EST documented as of this encounter Care Teams Major Assembly Lineman Relationship Specialty Start Date End Date Haily Robb FNP [address] [place] [address] PCP - General Family Medicine 05/01/22 documented as of this encounter
--- OUTSIDE RECORDS SUMMARY | 2025-06-13 12:39 | XMS_ITS | Encounter Summary ---
Author Organization [employer] Address [address] [facility] [address] [place] [address] Care Team Providers Care Rail Bender Name Role Phone [facility] Primary Care Provider Reason for Visit * Reason Onset Date Comments Nurse Triage 02/11/2024 Encounter Details Date Type Department Care Team ([facility] st Contact Info) Description 02/11/2024 Telephone [facility] [address] [place], [place] [phone] [facility] [address] [place] [address] Nurse Triage Social History Tobacco Use Types [...] the past 12 months, has t he [employer], gas, oil or water company threatened to [...] EDT Triage call returned to patient with [place] security supervisor [phone]. Patient reports ongoing issue withleft eye and [...] and she would like him referred to [facility] Furnace Charger. No diagnosis in chart.Advised of [facility] for evaluation today. Lab [...] Reason: Other Override Notes: Being treated with environmental permitting specialist with appt coming in 03/11/24 Video [...] involuntary movements The caller accepted this outcome Japanese speaker documented in this encounter Plan of [...] documented as of this encounter Care Teams Rail Bender Relationship Specialty Start Date End Date Haily Robb FNP [address] [place] [phone] PCP - General Family Medicine 05/01/22 documented as of this encounter
--- OUTSIDE RECORDS SUMMARY | 2025-06-13 12:39 | XMS_ITS | Encounter Summary ---
Author Organization [email or web address] Address [address] [facility] 7t [place] [address] Care Team Providers Care Game Programmer Name Role Phone Tinnie [facility] Primary Care Provider [phone] Reason for Visit * Reason Onset Date Comments Triage 09/20/2022 Encounter Details Date Type Department Care Team ([facility] st Contact Info) Description 09/20/2022 Telephone [facility] MEDICINE [address] [place], [place] [phone] [facility] [address] [place] [address] Triage Social History Tobacco Use Types Packs/Day [...] 09/20/2022 11:55 AM EST Triage call with Felt Product Development Technician ID [id number] Pt reports an area on back that [...] No high acuity concerns reported by caller SALVADOREAN SPEAKER The caller accepted this outcome documented in this encounter Plan of Treatment Not on file documented as of this encounter Visit Diagnoses Not on filedocumented in this encounter Care Teams Game Programmer Relationship Specialty Start Date End Date Haily Robb FNP [address] [place] [address] PCP - General Family Medicine 05/01/22 documented as of this encounter
--- OUTSIDE RECORDS SUMMARY | 2025-06-13 12:39 | XMS_ITS | Encounter Summary ---
Author Organization [employer] Address [address] [facility] 7t [place] [address] Care Team Providers Care Public Administration Professor Name Role Phone Clarisse [facility] Primary Care Provider [phone] Reason for Visit * Reason Onset Date Comments Results 03/16/2023 Encounter Details Date Type Department Care Team ([facility] st Contact Info) Description 03/16/2023 Telephone [facility] MED[facility] 230 [place], [place] [phone] [place] [facility] 230 [place] [address] Results Social History Tobacco Use Types Packs/Day [...] 03/20/2023 4:06 PM EDT Return T/C to [phone] for below message, No answer. LVM to call back on [phone]. * Telephone Encounter - Kelli Boucher - 03/16/2023 2:04 PM EDT Tc from pt requesting a call in regards to results to recent lab orders. Please contact pt at [phone] (Hungarian speaker) documented in this encounter Plan of Treatment Not on file documented as of this encounter Visit Diagnoses Not on filedocumented in this encounter Additional Health Concerns Assessment Noted Time PHQ-9 Depression Total Score: 0 01/26/20 23 3:38 PM EDT documented as of this encounter Care Teams Public Administration Professor Relationship Specialty Start Date End Date Haily Robb FNP [address] [place] [address] PCP - General Family Medicine 05/01/22 documented as of this encounter
--- OUTSIDE RECORDS SUMMARY | 2025-06-13 12:39 | XMS_ITS | Clinical Summary ---
Author Organization [facility] Address [address] [place] [address] Phone Care Team Providers Care Head Of Sales And Marketing Name Role Phone [facility] Primary Care Provider [phone] Medications polyethylene glycol (Golytely) 236-22.74-6.74 -5.86 gram [...] Health Maintenance Due Date Last Done Comments Colorectal Cancer Screening: Colonoscopy 1970 DTaP,Tdap,and Td Vaccines (1 - Tdap) 1987 Hepatitis B Vaccines (1 of 3 - 19+ 3-dose series) 1987 Pneumococcal Vaccine: 50+ Ye ars (1 of 1 - PCV) 2018 Zoster Vaccines (1 of 2) 2018 Cholesterol Screening (Lipid Panel) 06/16/2024 HIV Screening 06/16/2024 Hepatitis C Screening 06/16/2024 Social Influencers of Health Screening 06/16/2024 Depression Screening 09/03/2024 COVID-19 Vaccine (1 - 2023-2 5 season) 2025 Influenza Vaccine (#1) 2025 RSV Immunization Adult Patie nts (1 - 1-dose 75+ series) 2043 HIB Vaccines Aged Out No longer eligi [...] Phone Billing Address Personal/Family Self 1970 [address] [facility] [address] [place] [address] MEDICAID - [place] Care Teams Head Of Sales And Marketing Relationship Specialty Start Date End Date [place] [address] [address] PCP - General 05/20/24
--- OUTSIDE RECORDS SUMMARY | 2025-06-13 12:39 | XMS_ITS | Encounter Summary ---
Author Organization [employer] Address [address] [facility] [address] [facility] [address] 7t [place] [address] Care Team Providers Care Aba Tutor Name Role Phone Clarisse [facility] Primary Care Provider Reason for Visit * Reason Onset Date Comments triage 11/10/2022 Encounter Details Date Type Department Care Team ([facility] st Contact Info) Description 11/10/2022 Telephone [facility] MEDICINE 230 [place], [place] [phone] [facility] 230 [place] [address] triage Social History Tobacco Use Types Packs/Day [...] in office. Pt agrees to come into [facility] for exam. Pt also [...] question The caller accepted this outcome speaks [place] documented in this encounter Plan of Treatment Not on file documented as of this encounter Visit Diagnoses Not on filedocumented in this encounter Additional Health Concerns Assessment Noted Time PHQ-9 Depression Total Score: 0 11/03/19 10:32 AM EST documented as of this encounter Care Teams Aba Tutor Relationship Specialty Start Date End Date Haily Robb FNP [address] [place] [address] PCP - General Family Medicine 05/01/22 documented as of this encounter
--- OUTSIDE RECORDS SUMMARY | 2025-06-13 12:39 | XMS_ITS | Encounter Summary ---
Author Organization [employer] Address [address] [facility] 7t [place] [address] Care Team Providers Care Team Driver Name Role Phone [place] [facility] Primary Care Provider [phone] Reason for Visit * Reason Comments Med Refill Encounter Details Date Type Department Care Team (Late st Contact Info) Description 05/31/2025 Refill [facility] [address] [place], [place] [phone] [facility] 230 [place] [address] Restless leg Social History Tobacco Use Types Packs/Day Years [...] with others, in a hotel, in a longterm, living outside on the street, on a [...] as of this encounter Visit Diagnoses Diagnosis Restless leg Restless legs syndrome (RLS) documented in this encounter Additional Health Concerns Assessment Noted Time PHQ-9 Depression Total Score: 21 025 3:59 PM EDT documented as of this encounter Care Teams Team Driver Relationship Specialty Start Date End Date Haily Robb FNP [address] [place] [address] PCP - General Family Medicine 05/01/22 documented as of this encounter
--- OUTSIDE RECORDS SUMMARY | 2025-06-13 12:39 | XMS_ITS | Encounter Summary ---
Author Organization [employer] Address [address] [facility] 7t [place] [address] Care Team Providers Care Community Outreach Specialist Name Role Phone [place] [facility] Primary Care Provider [phone] Reason for Visit * Reason Onset Date Comments Med Refill 09/25/2023 Encounter Details Date Type Department Care Team ([facility] st Contact Info) Description 09/25/2023 Telephone [facility] MEDICINE 230 [place], [place] [phone] [facility] 230 [place] [address] Med Refill Social History Tobacco Use Types [...] the past 12 months, has t he [employer], gas, oil or water company threatened to [...] be sent to: [facility] - [place], [place] - [address] documented in this encounter Plan of Treatment Not on file documented as of this encounter Visit Diagnoses Not on filedocumented in this encounter Additional Health Concerns Assessment Noted Time PHQ-9 Depression Total Score: 0 08/15/20 23 3:52 PM EST documented as of this encounter Care Teams Community Outreach Specialist Relationship Specialty Start Date End Date Haily Robb FNP 230 [place] [address] PCP - General Family Medicine 05/01/22 documented as of this encounter
--- OUTSIDE RECORDS SUMMARY | 2025-06-13 12:39 | XMS_ITS | Encounter Summary ---
Author Organization [employer] Address [address] [facility] 7t [place] [address] Care Team Providers Care Slitter Scorer Cut Off Operator Name Role Phone Haily Robb Primary Care Provider [phone] Encounter Details Date Type Department Care Team [...] on filedocumented in this encounter Care Teams Slitter Scorer Cut Off Operator Relationship Specialty Start Date End Date Haily Robb FNP [address] [place] [address] PCP - General Family Medicine 05/01/22 documented as of this encounter
--- OUTSIDE RECORDS SUMMARY | 2025-06-13 12:39 | XMS_ITS | Encounter Summary ---
Author Organization [employer] Address [address] [facility] 7t [place] [address] Care Team Providers Care Manager Administrative Services Name Role Phone [facility] Primary Care Provider [phone] Reason for Visit * Reason Comments Med Refill Encounter Details Date Type Department Care Team ([facility] st Contact Info) Description 09/05/2022 Telephone [facility] MEDICINE 230 [place], [place] [phone] [facility] 230 [place] [address] Med Refill Social History Tobacco Use Types [...] - 09/06/2022 8:18 AM EST TC via P/I#[id number], explained to pt that [facility] Provided pt the phone number for the [facility] site and encouraged him to call them for all refills of his Clonazepam. Pt thanked consumer loan underwriter and said he understood. * Telephone Encounter - Yessi Cannon RN - 09/05/2022 3:04 PM EST Note on 08/02/22: Medication request:CLONAZEPAM Last visit 06/27/22. You sent a refill in June, it was picked up 07/12/22. He was originally getting this elsewhere. Not sure what you'd like to do. If you'll now be prescribing, then would you like him on ROCK DRILL OPERATOR? documented in this encounter Plan of Treatment Not on file documented as of this encounter Visit Diagnoses Diagnosis Other specified anxiety disorders documented in this encounter Care Teams Manager Administrative Services Relationship Specialty Start Date End Date Haily Robb FNP [address] [place] [address] PCP - General Family Medicine 05/01/22 documented as of this encounter
--- OUTSIDE RECORDS SUMMARY | 2025-06-13 12:39 | XMS_ITS | Clinical Summary ---
Author Organization [employer] Address [address] [place] [address] Care Team Providers Care Director Workforce Management Name Role Phone Clarisse [facility] Primary Care Provider [phone] Allergies Active Allergy Reactions Criticality Noted Date Comments Shellfish Allergy Anaphylaxis High 12/01/2024 Allergy Shellfish Protein-Containing Drug Products 08/03/2022 Seafood Medications * This document contains information [...] nostril 4 times daily. 26 mL 12 Active loratadine (Claritin) 10 MG tabletIndications :Nasal congestion Take 1 tablet (10 mg) by mouth Once per day. 30 tablet 11 Active alfuzosin ER (Uroxatral) 10 MG 24 [...] Active cholecalciferol (D3 Super Strength) 50 MCG (1999) capsuleIndication s:Vitamin D deficiency TAKE 1 CAPSULE [...] at bedtime (allergies). 10 mL 3 Active docusate sodium (Colace) 100 MG capsule [...] (constipation ). 527 g 2 2025 Active Diclofenac Sodium 1 % gel Apply 2 g topically if needed in the morning, at noon, in the evening, and at bedtime (pain). 150 g 3 Active lidocaine (Lidoderm) 5 % patch Apply 1-2 patches topically if needed each day for mild pain (pain). Remove & discard patch within 12 hours or as directed by MD. 60 patch 1 025 2025 Active DULoxetine (Cymbalta) [address] capsule Take 1 capsule (30 mg) by mouth Once per day. Do not crush or chew. 30 capsule 2 025 2025 Active Diclofenac Sodium (Voltaren) 1 % gel Use topical BID 100 g 3 Active benzocaine-mentho l (Chloraseptic) 6-10 MG lozengeIndication [...] doses in 24 hours. 9 tablet Active melatonin 5 MG tabletIndications :Mixed anxiety and depressive disorder TAKE 1 OR 2 TABLETS BY MOUTH EVERY DAY AT BEDTIME NEEDED 60 tablet 2 09/03/2 025 Active albuterol (Ventolin HFA) 108 (90 Base) MCG/ACT inhalerIndication s:Wheezing INHALE 2 PUFFS BY MOUTH EVERY 4 HOURS NEEDED FOR WHEEZING OR SHORTNESS OF BREATH 18 g 11 025 Active omeprazole (PriLOSEC) [address] capsuleIndication s:Epigastric pain TAKE 1 CAPSULE BY MOUTH TWICE DAILY BEFORE BREAKFAST 180 capsule 1 025 Active furosemide (Lasix) 20 MG tabletIndications :Bilateral lower extremity edema TAKE 2 TABLETS BY MOUTH EVERY DAY 180 tablet 1 025 Active ipratropium (Atrovent) 0.03 % nasal sprayIndications: Acute URI Administer 1 spray into each nostril every 12 (twelve) hours. 30 mL 12 025 2025 Active Acetaminophen 500 MG capsule Take 1 capsule (500 mg) by mouth every 8 (eight) hours if needed for moderate pain or fever. 30 capsule 025 2024 Active GAS RELIEF 125 MG capsule TAKE 1 CAPSULE BY MOUTH 4 TIMES A DAY IN THE MORNING, AT NOON, IN THE EVENING, AND AT BEDTIME NEEDED FOR GAS 30 capsule 1 025 Active fluticasone (Flonase) 50 MCG/ACT nasal sprayIndications: Seasonal allergies INSTILL 1 SPRAY IN EACH NOSTRIL ONCE DAILY 48 g 025 Active amitriptyline (Elavil) 25 MG tabletIndications :Chronic nonintractable headache, unspecified headache type TAKE 1 TABLET BY MOUTH AT BEDTIME 30 tablet 025 Active fluticasone (Flonase) 50 MCG/ACT nasal sprayIndications: Nasal congestion Administer 2 sprays into each nostril Once per day. Shake gently. Before first use, prime pump. After use, clean tip and replace cap.INSTILL 2 SPRAYS IN EACH NOSTRIL ONCE DAILY 48 g 3 024 2024 Discontinued(D uplicate order (will not trigger notification to Pharmacy)) fluticasone (Flonase) 50 MCG/ACT nasal sprayIndications: Seasonal allergies Use 1 spray each nostril daily. Shake gently. Before first use, prime pump. After use, clean tip and replace cap. 16 g 2 025 2024 Discontinued acetaminophen (Tylenol 8 Hour) 650 MG ER tablet Take 1 tablet (650 mg) by mouth every 8 (eight) hours if needed for mild pain. Do not crush, chew, or split. 60 tablet 2 025 2024 Discontinued furosemide (Lasix) 20 MG tabletIndications :Bilateral lower extremity edema TAKE 2 TABLETS BY MOUTH EVERY DAY 60 tablet 2 025 2024 Discontinued omeprazole (PriLOSEC) [address] capsuleIndication s:Epigastric pain Take 1 capsule (40 mg) by mouth before breakfast and before evening meal. 60 capsule 3 025 2024 Discontinued simethicone 125 MG capsule Take 1 capsule (125 mg) by mouth if needed in the morning, at noon, in the evening, and at bedtime (abd pain/gas). 30 capsule 1 025 2024 Discontinued amitriptyline (Elavil) 25 MG tabletIndications :Chronic nonintractable headache, unspecified headache type Take 1 tablet (25 mg) by mouth at bedtime. 30 tablet 025 2024 Discontinued lactulose (Chronulac) 10 GM/15ML solution Take 15 mL (10 g) by mouth Once per day for 10 days. 473 mL 3 025 2024 Active Problems Problem Noted Date Diagnosed Date [...] Avoidance of pollen as much as possible. [place] of ophthalmic mast cell stabilizer, nasal steroid and antihistamine. LLQ pain 01/06/2025 Assessment & Plan (01/06/2025 11:25 AM EDT): No evidence of acute abdomen. Chronic. He needs colon cancer screening and has been referred to [facility] in the past. He was encouraged to call in November but did not. We called today to facilitate appointment and give him the number to call. ER precautions discussed. [facility] reports pt has to call himself due to cancelled and did not make follow up. He was given the number [phone]. I stressed the importance of following up with specialist for appropriate work up. He agrees with the plan. Lung nodules 12/19/2024 Interstitial lung disease (CMS/HCC) 11/25/2024 Normal oral exam 10/22/2024 Urinary retention [...] any case Continue Carafate Call GI at [facility] for EGD and colonoscopy Eat small frequent [...] 03/2023 Established with therapy and psychiatry at [facility] No rash, fever, chills, lymphadenopathy Odynophagia [...] for anxiety sxs) that comes referred from [facility] for exacerbated anxiety in presence of [...] a good support system through his family, protestant and recovery network, as well as having [...] to explore potential nerve damage due to detention use of anxiolytics, even though John is on low dose medication. At this time is unclear if crawling/burning sensation on skin is solely due to medical and/or somatic presentation. However, sxs are causing significant psychological distress in patient. John was given information on how to reach out to [facility] team and [facility] numbers for crisis. He was also encouraged to bring current event to team to discuss further coping skills to support wellbeing. Patient was agreeable Opioid dependence in remission (CMS/HCC) 023 Scrotal pain 02/04/2023 Overview (02/04/2023): saw urology for scrotal pain. PE and u/s negative other than small hydrocele. No fruther eval needed. Tyleno ibu for pain Hypogonadism in male 11/02/2022 Overview (11/02/2022): Followed by [facility] urology Dr. Lux subcutaneous testosterone injection Assessment [...] of this appointment. His appointment is at [facility] [phone] on January 27 at 11:00 am. He [...] depressive disorder 02/22/2017 Overview (08/05/2023): Followed by [facility] Clonazepam PRN Clonidine PRN Assessment & Plan (11/06/2022 5:05 AM EST): Spoke with pharmacy-the blue conazepam tablets that patient prefer are from a different gameplay programmer and are on back order. Pt will [...] Encounters Date Type Department Care Team Description 06/10/2025 2:00 PM EDT Office Visit [facility] [address] [place] [phone] Haily Robb FNP Somatic symptom disorder, persistent, moderate (Primary Dx); Latent tuberculosis; Encounter for immunization 06/10/2025 Travel 06/09/[address] [address] Haily Robb FNP 06/04/[address] [address] Haily Robb FNP 06/04/2025 Refill [facility] [address] [place] [phone] Elda Love MD Seasonal allergies; Chronic nonintractable headache, unspecified headache type 06/03/[address] [address] Haily Robb FNP Epigastric pain 06/03/2025 Refill [facility] [address] [place] [phone] Roxana Gotti DO 06/03/2025 Patient Outreach [facility] [address] [place] [phone] Haily Robb FNP Pre-visit Planning (SDOH screening negative and tobacco screening negative) 06/03/2025 Refill [facility] [address] [place] [phone] Haily Robb FNP Restless leg 06/02/2025 3:40 PM EDT Office Visit [facility] [address] [place] [phone] Elda Love MD Acute URI (Primary Dx) 06/02/2025 Travel 05/31/2025 Refill [facility] [address] [place] [phone] Haily Robb FNP Restless leg 05/27/2025 Refill [facility] [address] [place] [address] [phone] Jana Morgan MD Bilateral lower extremity edema 05/19/2025 Orders Only [facility] [address] [place] [phone] Sanam Noland MD Chronic bilateral low back pain without sciatica (Primary Dx) 05/19/2025 Telephone [facility] [address] [place] [address] Haily Robb FNP Med Refill 05/15/2025 10:00 AM EDT Office Visit [facility] [address] [place] [phone] Collins Reyes MD Bloating (Primary Dx); Drug-induced constipation; Concern about diabetes mellitus without diagnosis 05/15/2025 Travel 05/14/2025 Refill [facility] [address] [place] [phone] Roxana Gotti DO Epigastric pain 05/12/2025 9:20 AM EDT Office Visit [facility] [address] [place] [phone] Elda Love MD Chronic nonintractable headache, unspecified headache type 05/12/2025 Travel 05/08/2025 Telephone [facility] [address] [place] [address] Haily Robb FNP Referral 05/05/[address] [address] Haily Robb FNP Jun/jul recall 05/04/2025 Refill [facility] [address] [place] [address] Haily Robb FNP Wheezing 05/02/2025 Refill [facility] [address] [place] [phone] Haily Robb FNP Mixed anxiety and depressive disorder; Wheezing 04/29/2025 Orders Only GENERIC EXTERNAL DATA DEPARTMENT Provider, Generic External Data 04/27/2025 1:40 PM EDT Office Visit [facility] [address] [place] [phone] Sanam Noland MD Chronic bilateral low back pain without sciatica (Primary Dx); Chronic nonintractable headache, unspecified headache type 04/27/2025 Travel 04/21/2025 10:20 AM EDT Office Visit [facility] [address] [place] [address] [phone] Collins Reyes MD Chronic nonintractable headache, unspecified headache type (Primary Dx) 04/21/2025 Travel 04/06/2025 Refill [facility] [address] [place] [phone] Gema Gar FNP Stasis dermatitis 04/05/2025 Orders Only GENERIC EXTERNAL DATA DEPARTMENT Provider, Generic External Data 04/04/2025 10:20 AM EDT Office Visit [facility] [address] [address] Francy Jennings MD Benign prostatic hyperplasia with urinary frequency (Primary Dx); Drug-induced constipation; Hypogonadism in male 04/04/2025 Travel 03/30/2025 2:45 PM EDT Office Visit [facility] [address] [place] [phone] Haily Robb FNP Peripheral vascular disease (CMS/HCC) (Primary Dx) 03/30/2025 Travel 03/26/2025 Telephone [facility] [address] [place] [phone] Haily Robb FNP chart prep 03/23/2025 Telephone [facility] [address] [place] [phone] Haily Robb FNP Results 03/14/2025 Refill [facility] [address] [place] [phone] Elda Love MD Seasonal allergies from Last 3 Months Immunizations Immunization Administration Dates Next Due HepB-CpG 11/16/2022 Moderna Covid-19 Vaccine 12+ 08/16/2021,01/08/20 21,12/10/2020 Pfizer Covid-19 Vaccine 12+ 04/27/2022 Pfizer Covid-19 Vaccine 12+ angela-sucrose ([place] Cap) 04/27/2022 Pneumococcal Conjugate PCV 20 12/15/2024 Tdap 06/10/2025 Zoster, Recombinant 11/16/2022 Family History Medical History [...] 18 06/10/2025 2:12 PM EDT Oxygen Saturation 99% 06/02/2025 1:53 PM EDT room air Inhaled Oxygen Concentration - - Weight 64 kg (141 lb) 06/10/2025 2:12 PM EDT Height 172.7 cm (5' 8 ) 06/10/2025 2:12 PM EDT Body Mass Index 21.44 06/10/2025 2:12 PM EDT Plan of Treatment Health Maintenance Due Date Last Done Comments CT Colonography 1968 Colonoscopy 1968 Colorectal Cancer Screening 1968 FIT DNA/Cologuard 1968 FIT 1968 FOBT 1968 Sigmoidoscopy 1968 Alcohol/Substance Use Screening 1980 Hepatitis B Vaccines (2 of 2 - CpG 2-dose series) 12/14/2022 11/16/2022 Zoster Vaccines (2 of 2) 01/11/2023 11/16/2022 Dental X-Ray: Bitewings 06/26/2024 06/25/2023 Dental Oral Exam 04/22/2025 10/22/2024, , 06/01/2022 Dental Prophylaxis 04/22/2025 10/22/2024, 0 04/17/2024, 06/25/2023, Additional history exists COVID-19 Vaccine ( season) 2025 04/27/2022, 04/27/2022, 08/16/2021, Additional history exists Influenza Vaccine (#1) 2025 Depression Monitoring 12/09/2025 06/10/2025, 025 Disability Screening 03/11/2026 03/11/2025 Diabetes: Hemoglobin A1C 05/15/2026 025, 01/06/2025, 06/20/2024, Additional history exists SDOH Screening 06/03/2026 06/03/2025 Tobacco Screening 06/12/2026 06/12/2025 Dental X-Ray: Full Mouth 09/12/2026 09/11/2023, 06/04 Lipid Panel 03/19/2029 03/19/2024, 02/02, 11/06/2022, Additional history exists DTaP/Tdap/Td Vaccines (2 - Td or Tdap) 06/10/2035 06/10/2025 RSV Patients and Patients Aged 60 years or older (1 - 1-dose 75+ series) 2043 HIV Screening Completed 03/22/2023, 03/02/2023, 05/05/2021, Additional history exists Pneumococcal Vaccine: 50+ [...] EDT Benign prostatic hyperplasia with urinary frequency HEPATITIS C AB W/REFL TO HCV RNA, [...] Media Lot # [id number] Lot# Expiration Date 62 Blood 05/15/2025 10:3 4 AM EDT us [...] AM EDT Narrative 04/29/2025 12:15 PM EDT [place] [address] [address] Scan Report Signed Patient: John Fitzpatrick MR#: [id number] : 1970 Acct:[id number] Age/Sex: 55 / M ADM Date: 04/29/25 Loc: HO.ED Attending Dr: Ordering Physician: Erik Montano DO Date of Service: 04/29/25 Procedure(s): CT head/brain wo IV con Accession Number(s): [id number] cc: Erik Montano DO; [facility] Report Number: [id number]: Total DLP = 672.00 mGy-cm EXAMINATION: CT [...] 04/29/25 1212 DD/ 1132 TD/TT: 04/29/25 1205 Hairspring Truer: Procedure Note Donotuseinterpreter, Image - 04/29/[address] [address] [address] Scan Report Signed Patient: John Fitzpatrick [facility]#: [id number] : 1970Acct:[id number] Age/Sex: 55 / MADM Date: 04/29/25 Loc: HO.ED Attending Dr: Ordering Physician: Erik Montano DO Date of Service: 04/29/25 Procedure(s): CT head/brain wo IV con Accession Number(s): [id number] cc: Erik Montano DO; [facility] Report Number: [id number]: Total DLP = 672.00 mGy-cm EXAMINATION: CT [...] 04/29/25 1212 DD/ 1132 TD/TT: 04/29/25 1205 Hairspring Truer: [facility] External Provider IMG CT PROCEDURES Final Result * High Sensitivity Troponin I (04/29/2025 10:43 AM EDT) TROPONIN I HIGH SENSITIVITY <2.7 <3.5 - 35.0 ng/L [facility] Comment:The [place] high sens itivity Troponin-I results should beused in conjunction with other diagnostic information suchas ECG, clinical observations and information, and patientsymptoms to aid in the diagnosis of [place]. 04/29/2025 10:4 3 AM EDT 04/29/2025 10:48 AM EDT Generic External Data Provider LAB BLOOD ORDERAB LES Final Result Performing Organization Address City/State/[facility] Co de Phone Number [facility] [address] [place] [phone] * XR Chest 1 View (04/29/2025 9:59 AM EDT) Anatomical Region Laterality Modality Chest Radiographic Cecelia ging 04/29/2025 9:59 AM EDT Narrative 04/29/2025 11:06 AM EDT [place] [address] XRay Report Signed Patient: John Fitzpatrick MR#: [id number] : 1970 Acct:[id number] Age/Sex: 55 / M ADM Date: 04/29/25 Loc: .ED Attending Dr: Ordering Physician: Generic ED Physician Date of Service: 04/29/25 Procedure(s): XR chest 1V Accession Number(s): [id number] cc: [facility] ED Physician; [facility] EXAMINATION: XR CHEST CLINICAL INFORMATION: chest [...] OV> 04/29/25 1102 DD/ 0959 TD/TT: 04/29/25 105 Hairspring Truer: Procedure Note Donotuseinterpreter, Image - 04/29/[address] [address] XRay Report Signed Patient: John Fitzpatrick AMR#: [id number] : 1970Acct:[id number] Age/Sex: 55 / MADM Date: 04/29/25 Loc: .ED Attending Dr: Ordering Physician: Generic ED Physician Date of Service: 04/29/25 Procedure(s): XR chest 1V Accession Number(s): [id number] cc: Generic ED Physician; [facility] FREIGHT ENGINEER EXAMINATION: XR CHEST CLINICAL INFORMATION: chest pain [...] OV> 04/29/25 1102 DD/ 0959 TD/TT: 04/29/25 105 Hairspring Truer: [facility] External Provider IMG XR PROCEDURES Edited Result - Final * (ABNORMAL) CBC auto differential (04/29/2025 9:58 AM EDT) Only the most recent of2 resultswithin the time period is included. White Blood Count 5.9 4.8 - 10.8 X10*3/uL [facility] Red Blood Count 3.81(L) 4.60 - 5.80 X10*6/uL [facility] Hemoglobin 12.3(L) 14.0 - 18.0 g/dl [facility] Hematocrit 36.1(L) 42.0 - 52.0 % [facility] Mean Corpuscular Volume 94.8 80.0 - 98.0 fL [facility] Mean Corpuscular Hemoglobin 32.3 27.0 - 33.0 pg [facility] Mean Corpuscular HGB Conc 34.1 31.0 - 36.0 g/dl [facility] Red Cell Distribution Width 12.8 11.0 - 16.0 % [facility] Platelet Count 164 160 - 400 X10*3/uL [facility] Mean Platelet Volume 10.7 9.4 - 12.4 fL [facility] Neutrophils Percent Auto 73.1(H) 45 - 73 % [facility] Imm Gran Pct Auto 0.2 0.0 - 0.4 % [facility] Lymphocytes Percent Auto 18.5(L) 20 - 40 % [facility] Monocytes Percent Auto 6.2 2 - 11 % [facility] Eosinophils Percent Auto 1.5 0 - 4 % [facility] Basophils Percent Auto 0.5 0 - 2 % [facility] NRBC Pct Auto 0.0 0.0 - 0.2 /100WBC [facility] Neutrophils Absolute Auto 4.3 2.0 - 8.3 x10*3/uL [facility] Imm Gran Abs Auto 0.01 0.00 - 0.03 X10*3/uL [facility] Lymphocytes Absolute Auto 1.1(L) 1.2 - 4.9 X10*3/uL [facility] Monocytes Absolute Auto 0.4 0.1 - 1.2 X10*3/uL [facility] Eosinophils Absolute Auto 0.1 0.0 - 0.4 X10*3/uL [facility] Basophils Absolute Auto 0.0 0.0 - 0.2 X10*3/uL [facility] NRBC Abs Auto 0.000 0.0 - 0.012 X10*3/uL [facility] 04/29/2025 9:58 AM EDT 04/29/2025 10:01 AM EDT us Generic External Data Provider LAB BLOOD ORDERAB LES Final Result [facility] [address] [place] [phone] * (ABNORMAL) Basic Metabolic Panel (04/29/2025 9:58 AM EDT) Sodium 141 135 - 145 mmol/L [facility] Potassium 4.5 3.3 - 5.1 mmol/L [facility] Chloride 102 96 - 108 mmol/L [facility] Carbon Dioxide 33(H) 22 - 29 mmol/L [facility] Anion Gap 11(L) 12 - 20 [facility] Urea Nitrogen (BUN) 9 9 - 16 mg/dL [facility] Creatinine, Serum 0.91 0.5 - 1.4 mg/dL [facility] Creatinine Clr Calc Pharmacy 75.5 [facility] Comment:eGFR (calculated fro m the MDRD study equation) and eCrCl(calculated from the Cockcroft-Gault equation) are based ondifferent parameters and may not yield comparable results.If eCrCl result is absurd, please check patient'sheight/weight. Estimated Glomerular Filt Rate >60 [facility] Comment:Chronic Kidney Disea se: Estimated GFR < 60 mL/min/1.72g0Hsjhat Kidney Disease: Estimated GFR < 15 mL/min/1.73m2 Glucose 99 60 - 115 mg/dL [facility] Calcium 9.3 8.4 - 10.2 mg/dL [facility] 04/29/2025 9:58 AM EDT 04/29/2025 10:01 AM EDT us Generic External Data Provider LAB BLOOD ORDERAB LES Final Result Performing Organization Address City/[facility]/ZIP Co de Phone Number [facility] [address] [place] [phone] * Lipase (04/05/2025 11:30 AM EDT) Lipase 30 8 - 78 U/L [facility] 04/05/2025 11:3 0 AM EDT 04/05/2025 11:42 AM EDT Generic External Data Provider LAB BLOOD ORDERAB LES Final Result Performing Organization Address [facility] Co de Phone Number [facility] [address] [place] [phone] * (ABNORMAL) Comprehensive Metabolic Panel (04/05/2025 11:30 AM EDT) Sodium 142 135 - 145 mmol/L [facility] Potassium 4.2 3.3 - 5.1 mmol/L [facility] Chloride 103 96 - 108 mmol/L [facility] Carbon Dioxide 30(H) 22 - 29 mmol/L [facility] Anion Gap 13 12 - 20 [facility] Urea Nitrogen (BUN) 22(H) 9 - 16 mg/dL [facility] Creatinine, Serum 0.99 0.5 - 1.4 mg/dL [facility] Creatinine Clr Calc Pharmacy 69.4 [facility] Comment:eGFR (calculated fro m the MDRD study equation) and eCrCl(calculated from the Cockcroft-Gault equation) are based ondifferent parameters and may not yield comparable results.If eCrCl result is absurd, please check patient'sheight/weight. Estimated Glomerular Filt Rate >60 [facility] Comment:Chronic Kidney Disea se: Estimated GFR < 60 mL/min/1.20a5Hnqjas Kidney Disease: Estimated GFR < 15 mL/min/1.73m2 Glucose 97 60 - 115 mg/dL [facility] Calcium 9.4 8.4 - 10.2 mg/dL [facility] Bilirubin, Total 1.4(H) 0.0 - 1.0 mg/dL [facility] Aspartate Amino Transferase 36 5 - 37 U/L [facility] Alanine Aminotransferase 56(H) 0 - 40 U/L [facility] Total Protein 7.8 6.5 - 8.0 g/dL [facility] Albumin Level 5.0 3.5 - 5.0 g/dL [facility] Alkaline Phosphatase 54 39 - 117 U/L [facility] 04/05/2025 11:3 0 AM EDT 04/05/2025 11:42 AM EDT Generic External Data Provider LAB BLOOD ORDERAB LES Final Result [facility] [address] [place] [phone] * POCT Urinalysis (04/04/2025 10:43 AM EDT) Color, UA Yellow Clarity, UA Clear Glucose, UA Negative Bilirubin, UA Negative Ketones, UA Negative Spec Grav, UA 1.015 Blood, UA Negative Negative, None Detected pH, UA 8.5 Protein, UA Negative Urobilinogen, UA 1.0 Leukocytes, UA Negative Negative, Rare, Trace Nitrite, UA Negative Negative, None Detected Appearance, UA clear QC Media Lot # [id number] Lot# Expiration Date 53 Urine 04/04/2025 10:4 3 AM EDT Francy Jennings MD POINT OF CARE TEST ENTER /EDIT ORDERABLES Final Result * Hepatitis C Antibody with Reflex to HCV, RNA, Quantitative, Real-Time PCR (01/06/2025 10:11 AM EDT) Hepatitis C Antibody Nonreactive Nonreactive [facility] Comment:Antibodies to HCV no t detected; does not exclude early acuteHCV infection. Blood Venous blood specimen / Unknown 01/06/2025 10:11 AM EDT 01/06/2025 11:07 AM EDT us Hoa Spenser [employer] LAB BLOOD ORDERABLES Final Resul t Performing Organization Address [facility] Co de Phone Number [facility] [address] [place] [phone] * Lipid Panel, Standard (03/19/2024 9:34 AM EDT) Triglycerides 66 <150 mg/dL [facility] Comment:Desirable Triglyceri de: less than [...] 190 mg/dL HDL Cholesterol 41 >40 mg/dL [facility] Comment:Desirable HDL: great er than 40 mg/dL Note: This HDL assay may give artificially low results in patients with liver disease. Blood Venous blood specimen / Unknown 03/19/2024 9:34 AM EDT 03/19/2024 11:12 AM EDT us Roxana Gotti DO LAB BLOOD ORDERABLES Final R esult Performing Organization Address [facility]/ZIP Co de Phone Number [facility] [address] [place] [phone] * HIV-1 RNA, Quantitative, Real-Time PCR [...] to 7.00 log copies/mL).THIS TEST WAS PERFORMED AT:[facility] [place] [id number] GONG MD Blood Venous blood specimen / Unknown 03/22/2023 11:53 AM EDT 03/22/2023 1:32 PM EDT Jessica Guillen FREIGHT ENGINEER LAB BLOOD ORDERABLES Final Res ult [facility] [address] [place] [address] [phone] from Last 3 Months or Most Recently Relevant to Health Maintenance Insurance [facility] C3 DENTAL-[facility] MEDICAID STAND ADULT Care Teams Director Workforce Management Relationship Specialty Start Date End Date [place] [facility] [address] [place] [address] PCP - General Family Medicine 05/01/22
--- OUTSIDE RECORDS SUMMARY | 2025-06-13 12:39 | XMS_ITS | Encounter Summary ---
Author Organization [employer] Address [address] [facility] [address] 7t [place] [address] Care Team Providers Care Craps Dealer Name Role Phone Clarisse [facility] Primary Care Provider [phone] Reason for Visit * Reason Comments Med Refill Encounter Details Date Type Department Care Team (Late st Contact Info) Description 04/02/2023 Refill [facility] [address] [place], [place] [phone] Juanjose Barton MD [address] [place], [place] [phone] Chronic pruritus Social History Tobacco Use Types [...] documented as of this encounter Care Teams Craps Dealer Relationship Specialty Start Date End Date [place] [address] [place] [address] PCP - General Family Medicine 05/01/22 documented as of this encounter
--- OUTSIDE RECORDS SUMMARY | 2025-06-13 12:39 | XMS_ITS | Encounter Summary ---
Author Organization [employer] Address [address] [facility] 7t [place] [address] Care Team Providers Care Bellows Filler Name Role Phone Clarisse [facility] Primary Care Provider [phone] Reason for Visit * Reason Onset Date Comments Nurse Triage 02/16/2023 Encounter Details Date Type Department Care Team ([facility] st Contact Info) Description 02/16/2023 Telephone [facility] [address] [place], [place] [phone] [facility] 230 [place] [address] Nurse Triage Social History Tobacco Use Types [...] - 02/23/2023 2:49 PM EDT T/C to [id number] through [employer] interpreters id - [id number] for below message, pt. Verbally agreed and understood. * Telephone Encounter - Angela Whitman LPN - 02/16/2023 2:48 PM EDT Triage call returned to patient via [employer] Furniture Painter [phone]. Patient called with concerns of Left eye burning and tearing at times with blurred vision. No irritant or object in eye at this time. Patient reports that he was seen some time ago in [facility] [place] and was given order to obtain eye drops for dry eye. He is angry that he had to pay for them out of pocket and that they did not help. Patient requesting specifically a referral and declines appts. in [facility] or with Team providers later [...] suggested disposition Override Notes: Patient seen in [facility] and was told to use eye drops several months ago. Patient requesting only referral to Filtration Plant Mechanic. Video visit not offered Positive Triage Question: [...] The caller accepted this outcome Patient speaks russian documented in this encounter Plan of Treatment Not on file documented as of this encounter Visit Diagnoses Not on filedocumented in this encounter Additional Health Concerns Assessment Noted Time PHQ-9 Depression Total Score: 0 01/26/20 3:38 PM EDT documented as of this encounter Care Teams Bellows Filler Relationship Specialty Start Date End Date Haily Robb FNP [address] [place] [address] PCP - General Family Medicine 05/01/22 documented as of this encounter
--- OUTSIDE RECORDS SUMMARY | 2025-06-13 12:39 | XMS_ITS | Encounter Summary ---
Author Organization [employer] Address [address] [facility] [address] 7[address] [place] [address] Care Team Providers Care Slag Expander Name Role Phone Clarisse Haily NURSE TRANSITIONAL Primary Care Provider Reason for Visit * Reason Comments Med Refill Encounter Details Date Type Department Care Team (Late st Contact Info) Description 04/02/2023 Refill [facility] 230 [place], [place] [phone] Hollis Rutledge MD 230 [place] [address] Social History Tobacco Use Types Packs/Day Years [...] documented as of this encounter Care Teams Slag Expander Relationship Specialty Start Date End Date [facility] ANETA Johansen [address] [place] [address] PCP - General Family Medicine 05/01/22 documented as of this encounter
--- OUTSIDE RECORDS SUMMARY | 2025-06-13 12:39 | XMS_ITS | Encounter Summary ---
Author Organization [employer] Address [address] [facility] 7t [place] [address] Care Team Providers Care Soil Sampler Name Role Phone Hialy Robb ASSISTANT COUNSEL Primary Care Provider [phone] Reason for Visit * Reason Comments Med Refill Encounter Details Date Type Department Care Team (Late st Contact Info) Description 10/29/2023 Refill [facility] [address] [place] [address] [phone] Name, MD Collins [address] [place] [address] Chronic neck pain Social History Tobacco Use [...] with others, in a hotel, in a prison, living outside on the street, on a [...] documented as of this encounter Care Teams Soil Sampler Relationship Specialty Start Date End Date Haily Robb FNP [address] [place] [address] PCP - General Family Medicine 05/01/22 documented as of this encounter
--- OUTSIDE RECORDS SUMMARY | 2025-06-13 12:39 | XMS_ITS | Encounter Summary ---
Author Organization [employer] Address 75 [facility] 7t [place] [address] Care Team Providers Care Gl Accountant Name Role Phone Haily Robb Primary Care Provider [phone] Encounter Details Date Type Department Care Team [...] on filedocumented in this encounter Care Teams Gl Accountant Relationship Specialty Start Date End Date Haily Robb FNP [address] [place] [address] PCP - General Family Medicine 05/01/22 documented as of this encounter
--- OUTSIDE RECORDS SUMMARY | 2025-06-13 12:39 | XMS_ITS | Encounter Summary ---
Author Organization [employer] Address [address] [facility] [address] 7t [place] [address] Care Team Providers Care Case Resource Manager Name Role Phone [facility] Primary Care Provider [phone] Reason for Visit * Reason Onset Date Comments Medication Question 01/16/2023 Encounter Details Date Type Department Care Team ([facility] st Contact Info) Description 01/16/2023 Telephone [facility] 230 [place], [place] [phone] [facility] [address] [place] [address] Medication Question Social History Tobacco Use Types [...] documented as of this encounter Care Teams Case Resource Manager Relationship Specialty Start Date End Date Haily Robb FNP [address] [place] [address] PCP - General Family Medicine 05/01/22 documented as of this encounter
--- OUTSIDE RECORDS SUMMARY | 2025-06-13 12:39 | XMS_ITS | Encounter Summary ---
Author Organization [employer] Address [address] [facility] 7t [place] [address] Care Team Providers Care Tool Maintenance Technician Name Role Phone [facility] Primary Care Provider [phone] Reason for Visit * Reason Comments Med Refill Encounter Details Date Type Department Care Team (Late st Contact Info) Description 07/08/2024 Refill [facility] 230 [place], [place] [phone] [facility] 230 [place] [address] Mixed anxiety and depressive disorder Social History [...] documented as of this encounter Care Teams Tool Maintenance Technician Relationship Specialty Start Date End Date Haily Robb FNP [address] [place] [address] PCP - General Family Medicine 05/01/22 documented as of this encounter
--- OUTSIDE RECORDS SUMMARY | 2025-06-13 12:39 | XMS_ITS | Encounter Summary ---
Author Organization [employer] Address [address] [facility] 7t [place] [address] Care Team Providers Care Inker And Opaquer Name Role Phone Clarisse [facility] Primary Care Provider Reason for Visit * Reason Onset Date Comments Appointment Request 10/08/2023 Encounter Details Date Type Department Care Team ([facility] st Contact Info) Description 10/08/2023 Telephone [facility] 230 [place], [place] [phone] [facility] 230 [place] [address] Appointment Request Social History Tobacco Use Types [...] gotten any better. Please contact pt at [phone] documented in this encounter Plan of Treatment Not on file documented as of this encounter Visit Diagnoses Not on filedocumented in this encounter Additional Health Concerns Assessment Noted Time PHQ-9 Depression Total Score: 0 08/15/20 23 3:52 PM EST documented as of this encounter Care Teams Inker And Opaquer Relationship Specialty Start Date End Date Haily Robb FNP [address] [place] [address] PCP - General Family Medicine 05/01/22 documented as of this encounter
--- OUTSIDE RECORDS SUMMARY | 2025-06-13 12:40 | XMS_ITS | Encounter Summary ---
Author Organization [employer] Address [address] [facility] 7t [place] [address] Care Team Providers Care Brake Operator Helper Name Role Phone Clarisse [facility] Primary Care Provider [phone] Encounter Details Date Type Department Care Team (Latest Contact Info) Description 06/10/2025 Travel Social History Tobacco Use Types Packs/Day [...] Jeronimo [place] documented as of this encounter Plan of Treatment Not on file documented as of this encounter Goals Goal Patient Goal Type Associated Problems Recent Progress Patient-Stated? Author Patient will adhere to medication regimen General Mary Chauhan documented as of this encounter Visit Diagnoses Not on filedocumented in this encounter Additional Health Concerns Assessment Noted Time PHQ-9 Depression Total Score: 025 2:20 PM EDT documented as of this encounter Care Teams Brake Operator Helper Relationship Specialty Start Date End Date Haily Robb FNP [address] [place] [address] PCP - General Family Medicine 05/01/22 documented as of this encounter
--- OUTSIDE RECORDS SUMMARY | 2025-06-13 12:40 | XMS_ITS | Encounter Summary ---
Author Organization [email or web address] Address 75 [facility] 7t [place] [address] Care Team Providers Care Gas Dispenser Name Role Phone [facility] Primary Care Provider [phone] Reason for Visit * Reason Comments Med Refill Encounter Details Date Type Department Care Team ([facility] st Contact Info) Description 08/28/2024 Refill [facility] 230 [place], [place] [phone] [facility] 230 [place] [address] Mixed anxiety and depressive disorder Social History [...] as of this encounter Care Teams Gas Dispenser Relationship Specialty Start Date End Date Haily Robb FNP [address] [place] [address] PCP - General Family Medicine 05/01/22 documented as of this encounter
--- OUTSIDE RECORDS SUMMARY | 2025-06-13 12:40 | XMS_ITS | Encounter Summary ---
Author Organization [employer] Address [address] [facility] 7t [place] [address] Care Team Providers Care Inventory Representative Name Role Phone [place], [facility] Primary Care Provider [phone] Encounter Details Date Type Department Care Team ([facility] st Contact Info) Description 06/09/2025 Telephone [facility] 230 [place], [place] [phone] Clarisse Haily [facility] 230 [place] [address] Social History Tobacco Use Types Packs/Day Years [...] encounter Miscellaneous Notes * Telephone Encounter - Carlos Enrique Craft MA - 06/09/2025 3:32 PM EDT Chart Prep Labs: done Images: done Referrals: appointment pending Vaccines due: Covid, Hep B, Zoster, and DTAP Screenings: colonoscopy Overdue care gaps: SBIRT, PHQ-9, and JODY-7 documented in this encounter Plan of Treatment [...] documented as of this encounter Care Teams Inventory Representative Relationship Specialty Start Date End Date Clarisse ANETA Johansen [address] [place] [address] PCP - General Family Medicine 05/01/22 documented as of this encounter
--- OUTSIDE RECORDS SUMMARY | 2025-06-13 12:40 | XMS_ITS | Encounter Summary ---
Author Organization [employer] Address [address] [facility] [address] 7t [place] [address] Care Team Providers Care Renal Technician Name Role Phone [facility] Primary Care Provider [phone] Reason for Visit * Reason Comments Med Refill Encounter Details Date Type Department Care Team ([facility] st Contact Info) Description 06/03/2025 Refill [facility] 230 [place] [address] [facility] 230 [place] [address] Restless leg Social History Tobacco Use Types [...] others, in a hotel, in a senior living, living outside on the street, on a [...] documented as of this encounter Care Teams Renal Technician Relationship Specialty Start Date End Date Haily Robb FNP [address] [place] [address] PCP - General Family Medicine 05/01/22 documented as of this encounter
--- OUTSIDE RECORDS SUMMARY | 2025-06-13 12:40 | XMS_ITS | Encounter Summary ---
Author Organization [employer] Address [address] [facility] 7t [place] [address] Care Team Providers Care Oncology Account Specialist Name Role Phone [place] [facility] Primary Care Provider [phone] Reason for Visit * Reason Comments Med Refill Encounter Details Date Type Department Care Team ([facility] st Contact Info) Description 06/03/2025 Refill [facility] 230 [place] [address] [facility] [address] [place] [address] Epigastric pain Social History Tobacco Use Types [...] documented as of this encounter Care Teams Oncology Account Specialist Relationship Specialty Start Date End Date Haily Robb FNP [address] [place] [address] PCP - General Family Medicine 05/01/22 documented as of this encounter
--- OUTSIDE RECORDS SUMMARY | 2025-06-13 12:40 | XMS_ITS | Encounter Summary ---
Author Organization [employer] Address 75 [facility] 7t [place] [address] Care Team Providers Care Foam Rubber Mixer Name Role Phone [place], [facility] Primary Care Provider [phone] Encounter Details Date Type Department Care Team ([facility] st Contact Info) Description 06/04/2025 Telephone [facility] 230 [place], [place] [phone] Clarisse Haily [facility] 230 [place] [address] Social History Tobacco Use Types Packs/Day Years [...] documented as of this encounter Care Teams Foam Rubber Mixer Relationship Specialty Start Date End Date Haily Robb FNP 230 [place] [address] PCP - General Family Medicine 05/01/22 documented as of this encounter
--- OUTSIDE RECORDS SUMMARY | 2025-06-13 12:40 | XMS_ITS | Encounter Summary ---
Author Organization [employer] Address [address] [facility] 7t [place] [address] Care Team Providers Care County Judge Name Role Phone Clarisse [facility] Primary Care Provider [phone] Reason for Visit * Reason Onset Date Comments Results 02/26/2025 Encounter Details Date Type Department Care Team ([facility] st Contact Info) Description 02/26/2025 Telephone [facility] 230 [place], [place] [phone] [facility] 230 [place] [address] Results Social History Tobacco Use Types Packs/Day [...] the past 12 months, has t he [employer], gas, oil or water company threatened to [...] back regarding prior message. Contact pt at [phone] * Telephone Encounter - Claudette Ashley - 02/26/2025 12:59 PM EDT TC from pt requesting call back regarding Results. Type of results: Lab Date when done: 02/25/25 Facility: [facility] Contact pt at [phone] (kinyarwanda) documented in this encounter Plan of Treatment [...] documented as of this encounter Care Teams County Judge Relationship Specialty Start Date End Date Haily Robb FNP 230 [place] [address] PCP - General Family Medicine 05/01/22 documented as of this encounter
[2025-06-13 12:41] LABS: Appearance Urine Clear; Glucose Urine UA Negative (Negative); PH 8.5 (5.0-9.0); Specific Gravity - Urine 1.020 (1.005-1.025)
[2025-06-13 12:52] LABS: Alanine Aminotransferase 18 U/L (0-40); Albumin Level 4.9 g/dL (3.5-5.0); Alkaline Phosphatase 50 U/L (39-117); Anion Gap 9 (12-20); Aspartate Amino Transferase 24 U/L (5-37); Blood Urea Nitrogen 14 mg/dL (9-16); Calcium 9.5 mg/dL (8.4-10.2); Carbon Dioxide 31 mmol/L (22-29); Chloride 102 mmol/L (96-108); Creatinine Clr Calc Pharmacy 70.4; Estimated Glomerular Filt Rate > 60; Lipase 19 U/L (8-78); Magnesium 1.9 mg/dL (1.6-2.6); Potassium 4.3 mmol/L (3.3-5.1); Sodium 138 mmol/L (135-145); Total Protein 7.5 g/dL (6.5-8.0)
[2025-06-13 12:54] LABS: Hematocrit 42.0 % (42.0-52.0); Hemoglobin 14.0 g/dl (14.0-18.0); Imm Gran Abs Auto 0.02 X10*3/uL (0.00-0.03); Imm Gran Pct Auto 0.3 % (0.0-0.4); Lymphocytes Absolute Auto 1.2 X10*3/uL (1.2-4.9); Mean Corpuscular HGB Conc 33.3 g/dl (31.0-36.0); Mean Corpuscular Hemoglobin 32.3 pg (27.0-33.0); Mean Corpuscular Volume 97.0 fL (80.0-98.0); NRBC Abs Auto 0.000 X10*3/uL (0.0-0.012); NRBC Pct Auto 0.0 /100WBC (0.0-0.2); Platelet Count 201 X10*3/uL (160-400); Red Blood Count 4.33 X10*6/uL (4.60-5.80); White Blood Count 7.2 X10*3/uL (4.8-10.8)
[2025-06-13 13:01] LABS: Troponin-I High Sensitivity < 2.7 ng/L (<3.5-35.0)
--- NOTE | 2025-06-13 14:32 | PC.NURSE ---
PT refused IV stated he just wants to wait for labs. Provider notfied.
[2025-06-13 14:35] VITALS: BP 122/61; PULSE 60
[2025-06-13 14:36] VITALS: BP 123/68; BP 133/67; PULSE 71; PULSE 72
[2025-06-13 14:42] LABS: IDNOW Serial# 58CA691E; Influenza B2 Negative (Negative)
[2025-06-13 14:55] LABS: COVID-19 Test Invalid (Negative); IDNOW Serial# 58CA691E
[2025-06-13 15:30] LABS: COVID-19 Test Negative (Negative); IDNOW Serial# 55D5AD1C
[2025-06-13 16:06] VITALS: BP 123/68; PULSE 72; RESP 16; TEMP 37.1; O2SAT 95
== END 2025-06-13 16:08 | disposition home or self-care (01) ==
PROVIDERS: Physician Assistant Medical; Emergency Provider Emergency Medicine; PCP Registered Nurse
DX: B34.9 Viral infection, unspecified (principal); R42 Dizziness and giddiness; R53.83 Other fatigue; K59.00 Constipation, unspecified; R10.13 Epigastric pain; Z79.899 Other long term (current) drug therapy; F17.210 Nicotine dependence, cigarettes, uncomplicated; Z11.52 Encounter for screening for COVID-19
CPT/HCPCS: 36415; 74018; 80053; 81003; 83690; 83735; 84484; 85025; 87502; 87635; 93005; 99283; 99284

== ENCOUNTER → 2025-06-13 12:11 | Outpatient (BNV) | payer MEDICAID, SELFPAY | PROVIDERS: Emergency Provider Emergency Medicine; PCP Registered Nurse; Visit Provider Radiology Diagnostic Radiology | DX: K59.00 Constipation, unspecified (principal) | CPT/HCPCS: 74018 ==

== ENCOUNTER → 2025-06-13 12:12 | Outpatient (BNV) | payer MEDICAID, SELFPAY | PROVIDERS: Emergency Provider Emergency Medicine; PCP Registered Nurse; Visit Provider Internal Medicine Cardiovascular Disease | DX: R10.13 Epigastric pain (principal) | CPT/HCPCS: 93010 ==

== ENCOUNTER 2025-06-22 10:42 | Outpatient (REF) | payer MEDICAID, SELFPAY | END 2025-06-22 10:43 | disposition home or self-care (01) | LOC: HO.HHCL 10:42 | PROVIDERS: PCP Internal Medicine; Visit Provider Internal Medicine | DX: N40.0 Benign prostatic hyperplasia without lower urinary tract symptoms (principal); R80.9 Proteinuria, unspecified; R00.2 Palpitations | CPT/HCPCS: 36415; 84443; 99212 ==

== ENCOUNTER 2025-06-22 10:42 | Outpatient (AMB) | payer MEDICAID, SELFPAY ==
[2025-06-22 10:52] VITALS: BP 82/56; PULSE 105; O2SAT 96; BMI 20.7
--- NOTE | 2025-06-22 10:52 | HO.NEPHOV_ITS ---
Vital Signs 06/22/25 10:52 Height 5 ft 8 in Weight 136 lb BMI 20.7 BP 82/56 L Blood Pressure Location Rt brachial Position Sitting Pulse 105 H Pulse Source Pulse Oximeter Pulse Oximetry (%) 96 Oxygen Delivery Method Room Air Intake Visit Reasons: 6 MO FU-Conf Nuclear Power Reactor Operator Required: Yes Nuclear Power Reactor Operator Name: [id number] Fareed Accompanied by: Self / Same As Patient Allergies SEAFOOD Allergy (Severe, Uncoded 06/13/25 12:07) ANAPHYLAXIS shellfish Allergy (Severe, Uncoded 06/13/25 12:07) Anaphylaxis Medication List - Last Reconciled 06/22/25 by Jesus Denise MD bisacodyl (Dulcolax (bisacodyl)) 20 mg (4 x 5 mg) PO ONCE 1 day cholecalciferol (vitamin D3) (Vitamin D3) 50 mcg PO DAILY cyclobenzaprine 5 mg PO TID PRN 5 days docusate calcium 240 mg PO DAILY docusate sodium 100 mg PO BEDTIME PRN famotidine 20 mg PO DAILY PRN fluvoxamine 25 mg PO BEDTIME furosemide (Lasix) 20 mg PO DAILY ibuprofen 400 mg PO Q6H PRN melatonin 5 - 10 mg PO BEDTIME PRN methadone 29 mg PO DAILY needle (disp) 18 G (BD Regular [place]vel [place]) As directed to draw testosterone needle (disp) 22 G As directed to inject testosterone pantoprazole 40 mg PO DAILY polyethylene glycol 3350 (Miralax) 17 grams PO DAILY polyethylene glycol 3350 (Miralax) 238 grams PO ONCE polyethylene glycol 3350 17 grams PO DAILY prednisone 40 mg (2 x 20 mg) PO DAILY 5 days sucralfate 1 g PO TID PRN syringe (disposable) (BD Luer-Vira Syringe) As directed 1 syringe [id number] 2 syringes total per month for T injection tamsulosin 0.4 mg PO BEDTIME 90 days testosterone cypionate 200 mg IM Q2W 28 days HPI Comments Details: 54-year-old male with medical history significant for BPH, UTI, GERD, substance abuse on methadone, mental health issues presents for evaluation of multiple complaints. Referred for proteinuria. He was recently hospitalized and had a urinary retention. De La Fuente catheter was inserted [facility]. He has been followed by Urology. Accompanied by caregiver History of drug abuse.He had he relapsed in March of 2024. Currently he is on methadone. 09/19/24;overall doing well;No gross heamturia;No edema 12/30/24 : c/o leg swelling on and off. No hematuria 06/22/25 Here for follow up No gross heamturia No edema PFSH Medical History Constipation Anemia Hx of substance abuse Smoker History of Helicobacter pylori infection Spinal pain Hypogonadism Erectile dysfunction Hx: UTI (urinary tract infection) BPH (benign prostatic hyperplasia) Hx of hepatitis C GERD (gastroesophageal reflux disease) Anxiety and depression HTN (hypertension) Murmur Surgical History Hx of cystoscopy Family History Mother Diabetes Social History Alcohol intake: former Patient Tobacco Use Status: Current everyday Tobacco user Substance Use Type: Crack/Cocaine and Heroin Current occupational status: unemployed Physical Exam Vital Signs: BMI result Body Mass Index 20.7 Results Reviewed Nephrology Results: Hgb, (14.0-18.0) 14.0 g/dl 06/13/25 WBC, (4.8-10.8) 7.2 X10*3/uL 06/13/25 Plt Count, (160-400) 201 X10*3/uL 06/13/25 Sodium, (135-145) 138 mmol/L 06/13/25 Potassium, (3.3-5.1) 4.3 mmol/L 06/13/25 Chloride, (96-108) 102 mmol/L 06/13/25 Carbon Dioxide, (22-29) 31 mmol/L H 06/13/25 BUN, (9-16) 14 mg/dL 06/13/25 Creatinine, (0.5-1.4) 0.99 mg/dL 06/13/25 Calcium, (8.4-10.2) 9.5 mg/dL 06/13/25 Urine Protein, (Neg-Trace) Negative mg/dL 06/13/25 Assessment & Plan Assessment & Plan (1) BPH (benign prostatic hyperplasia): Code(s): N40.0 - Benign prostatic hyperplasia without lower urinary tract symptoms Category: Medical (2) Proteinuria: Code(s): R80.9 - Proteinuria, unspecified Category: Medical Plan 55-year-old man with substance abuse has minimal proteinuria. Renal function is normal with a serum creatinine 0.95. Imaging was unremarkable. No significant proteinuria UA is benign P-ANCA positive Cr stable and < 0.9 No edema- DC Lasix 20 mg QD Orders: Orders Basic Metabolic Panel 6 Months R80.9 - Proteinuria, unspecified Medications: Discontinued furosemide (Lasix) Discontinued Reason: Doctor's Order 20 mg PO DAILY 90 tabs 0RF Coding Level of Care Code Est Pt Level 4 (73540) Diagnoses BPH (benign prostatic hyperplasia) N40.0 Proteinuria R80.9
== END 2025-06-22 11:10 | disposition home or self-care (01) ==
LOC: HO.HKA 10:42
PROVIDERS: PCP Registered Nurse; Visit Provider Internal Medicine Hypertension Specialist
DX: N40.0 Benign prostatic hyperplasia without lower urinary tract symptoms (principal); R80.9 Proteinuria, unspecified
CPT/HCPCS: 99214

== ENCOUNTER 2025-06-24 15:38 | Outpatient (REF) | payer MEDICAID, SELFPAY ==
--- OUTSIDE RECORDS SUMMARY | 2025-06-22 13:20 | XMS_ITS | Encounter Summary ---
Author Organization [employer] Address [address] [facility] [place] [place] [address] Care Team Providers Care Under Seal Operator Name Role Phone Clarisse Haily PROJECT DESIGN ENGINEER Primary Care Provider Gregoria Brooks RN Unavailable [phone] Latricia Houser Unavailable Reason for Visit * Reason Comments Abdominal Pain Headache Encounter Details Date Type Department Care Team (Late st Contact Info) Description 06/22/2025 1:20 PM EDT Office Visit [facility] [address] [place], [place] [phone] Sanam Noland MD [address] [place], [place] [phone] Acute non intractable tension-type headache; Palpitations; Left lower quadrant abdominal pain; Slow transit constipation Social History Tobacco Use Types Packs/Day Years [...] Answer Date Recorded Patient Health Questionnaire-9 Score 8 06/17/2025 Patient Health Questionnaire-9 Score 8 06/17/2025 Last PHQ-9: Questionnaire Data Not on file 1 Housing Stability Answer Date Recorded What is your housing situation today? I do not have housing (Staying with others, in a hotel, in a chcf, living outside on the street, on a [...] got money to buy more: Sometimes True 2024 Within the past 12 months,th e food you bought just didn't last and you didn't have enough money to get more: Sometimes True 06/16/2025 Transportation Answer Date Recorded In the past 12 months, has l ack of transportation kept you from medical appts, meetings, work or from getting things needed for daily living? Yes, it has kept me from medical appointments or getting medications. 06/16/2025 Utilities Answer Date Recorded In the past 12 months, has t he electric, gas, oil or water company threatened to shut off services in your home? No 06/03/2025 Depression Answer Date Recorded Patient Health Questionnaire-2 Score 3 06/17/2025 Internet Access Answer Date Recorded Internet Access [...] Sign Reading Time Taken Comments Blood Pressure 113/70 06/22/2025 1:24 PM EDT Pulse 77 06/22/2025 1:24 PM EDT Temperature 37 C (98.6 F) 06/22/2025 1:24 PM EDT Respiratory Rate 16 06/22/2025 1:24 PM EDT Oxygen Saturation - - Inhaled Oxygen Concentration - - Weight 62.6 kg (138 lb) 06/22/2025 1:24 PM EDT Height 172.7 cm (5' 8 ) 06/22/2025 1:24 PM EDT Body Mass Index 20.98 06/22/2025 1:24 PM EDT documented in this encounter Progress Notes * Sanam Peacock MD - 06/22/2025 1:20 PM EDT SUBJECTIVE: John Ro is a 55 y.o. year old adult who presents for acute visit . Acute Concerns: Patient c/o right side forehead pain/ headache reports when this happens he has palpitations Patient also reports left lower abdominal pain, he admits he suffers form constipation and he has not being taking his fiber, he tells me constipation gets better with medication but then he stops taking them and comes back Social History Social History Narrative Tobacco Use: [...] back pain without sciatica Chronic nonintractable headache Acute non intractable tension-type headache Palpitations Left lower quadrant abdominal pain Slow transit constipation Family History[2] Review of Systems Constitutional: Negative. HENT: Negative. Respiratory: Negative. Cardiovascular: Positive for palpitations. Negative for chest pain and leg swelling. Gastrointestinal: Positive for abdominal distention, abdominal pain and constipation. Negative for anal bleeding, blood in stool, diarrhea, nausea, rectal pain and vomiting. Neurological: Positive for headaches. OBJECTIVE: Vitals: 06/22/25 1324 BP: 113/70 BP Location: Right arm Patient Position: Sitting BP Cuff Size: Adult Pulse: 77 Resp: 16 Temp: 98.6 ??F (37 ??C) TempSrc: Temporal Weight: 138 lb (62.6 kg) Height: 5' 8 (1.727 m) Physical Exam Constitutional: Appearance: Normal appearance. Cardiovascular: Rate and Rhythm: Normal rate and regular rhythm. Pulmonary: Effort: Pulmonary effort is normal. Breath sounds: Normal breath sounds. Abdominal: Tenderness: There is abdominal tenderness in the left lower quadrant. Musculoskeletal: Right lower leg: No edema. Left lower leg: No edema. Neurological: General: No focal deficit present. Mental Status: He is alert and oriented to person, place, and time. Mental status is at baseline. Motor: No weakness. Follow Up: No follow-ups on file. Medications Ordered Prior to Encounter[3] Problem List Items Addressed This Visit Acute non intractable tension-type headache Relevant Medications Acetaminophen 500 MG capsule Palpitations Patient reports he miss his cardiology appointment and he will reschedule I will re-check his TSH today pulse 77 regular Relevant Orders TSH W/Reflex to FT4 Left lower quadrant abdominal pain Likely due to constipation It was advise to drink more water and fiber He was encourage to walk more I refilled his fiber and miralax Relevant Medications polycarbophil (Fibercon) 625 MG tablet polyethylene glycol, PEG, 3350 (MiraLax) 17 GM/SCOOP powder Slow transit constipation It was advise to drink more water and fiber He was encourage to walk more I refilled his fiber and miralax Relevant Medications polycarbophil (Fibercon) 625 MG tablet polyethylene glycol, PEG, 3350 (MiraLax) 17 GM/SCOOP powder [1] Patient Active Problem List Diagnosis Helicobacter pylori gastritis Positive TB test Hyperlipidemia Methadone maintenance therapy patient Mixed anxiety and depressive disorder Renal cyst, left Submandibular lymphadenopathy Vitamin D deficiency Tobacco use Neck pain on left side Hypogonadism in male Scrotal pain Moderate somatic symptom disorder Opioid dependence in remission (CMS/HCC) ([facility]) Odynophagia Chronic pruritus Dental calculus [...] back pain without sciatica Chronic nonintractable headache Acute non intractable tension-type headache Palpitations Left lower quadrant abdominal pain Slow transit constipation [2] Family History Problem Relation Name Age of Onset Diabetes Mother Heart disease Mother Other (diabetic retinopathy, cataract) Mother Colon cancer Neg Hx Prostate cancer Neg Hx [3] Current Outpatient Medications on File Prior to Visit Medication Sig Dispense Refill albuterol (Ventolin HFA) 108 (90 Base) MCG/ACT inhaler INHALE 2 PUFFS BY MOUTH EVERY 4 HOURS NEEDED FOR WHEEZING OR SHORTNESS OF BREATH 18 g 11 alfuzosin ER (Uroxatral) 10 MG 24 hr tablet Take 1 tablet by mouth at bedtime. amitriptyline (Elavil) 25 MG tablet TAKE 1 TABLET BY MOUTH AT BEDTIME 30 tablet 0 BD Hypodermic Needle 18G X 1 misc BD Plastipak Syringe 3 ML misc benzocaine-menthol (Chloraseptic) 6-10 MG lozenge Dissolve 1 lozenge in the mouth every 2 (two) hours if needed for sore throat. (Patient not taking: Reported on 06/17/2025) 100 lozenge 0 Blood Pressure kit Check blood pressure daily 1 kit 0 cetirizine (ZyrTEC) 10 MG tablet TAKE 1 TABLET BY MOUTH EVERY DAY NEEDED FOR ALLERGIES 90 tablet0 cholecalciferol (D3 Super Strength) 50 MCG (1999 UT) capsule TAKE 1 CAPSULE BY MOUTH [...] TWICE DAILY BEFORE BREAKFAST 180 capsule 1 QUEtiapine (SEROquel) 25 MG tablet Take 25 [...] shoulder, thigh, or buttocks once a week. (Patient taking differently: Inject 1 mL into the muscle every 14 (fourteen) days.) triamcinolone (Kenalog) 0.1 % ointment APPLY TOPICALLY TWICE DAILY 30 g 1 [DISCONTINUED] Acetaminophen 500 MG capsule Take 1 capsule (500 mg) by mouth every 8 (eight) hours if needed for moderate pain or fever. 30 capsule 0 [DISCONTINUED] polycarbophil (Fibercon) 625 MG tablet Take 1 tablet (625 mg) by mouth 2 times daily. 180 tablet 3 [DISCONTINUED] polyethylene glycol, PEG, 3350 (MiraLax) 17 GM/SCOOP powder Take 17 g by mouth if needed each day (constipation). 527 g 2 No current facility-administered medications on file prior to visit. documented in this encounter Miscellaneous Notes * Assessment & Plan Note - Sanam Peacock MD - 06/22/2025 2:53 PM EDT Associated Problem(s): Slow transit constipation It was advise to drink more water and fiber He was encourage to walk more I refilled his fiber and miralax * Assessment & Plan Note - Sanam Peacock MD - 06/22/2025 2:53 PM EDT Associated Problem(s): Left lower quadrant abdominal pain Likely due to constipation It was advise to drink more water and fiber He was encourage to walk more I refilled his fiber and miralax * Assessment & Plan Note - Sanam Peacock MD - 06/22/2025 2:52 PM EDT Associated Problem(s): Palpitations Patient reports he miss his cardiology appointment and he will reschedule I will re-check his TSH today pulse 77 regular documented in this encounter Plan of Treatment Upcoming Encounters Date Type Department Care Team (Late st Contact Info) Description 06/29/2025 1:00 PM EDT Office Visit [facility] [address] [place] [phone] Hermes Black RN [address] [place] [phone] 06/29/2025 1:30 PM EDT Office Visit [facility] [address] [place] [phone] Hollis Rutledge MD [address] [place], [place] [phone] documented as of this encounter Goals Goal Patient Goal Type Associated Problems Recent Progress Patient-Stated? Author Patient will adhere to medication regimen General Mary Chauhan documented as of this encounter Procedures Procedure Name Priority Date/Time Associated Diagnosis Comments TSH W/REFLEX TO FT4 Routine 06/22/2025 2 :19 PM EDT Palpitations documented in this encounter Results * TSH W/Reflex to FT4 (06/22/2025 2:19 PM EDT) TSH reflex Free T4 1.82 0.32 - 4.0 uIU/mL [facility] Blood Venous blood specimen / Unknown 06/22/2025 2:19 PM EDT 06/22/2025 3:58 PM EDT us Sanam Peacock MD LAB BLOOD ORDERABLES Final Result [facility] [address] [place] [phone] documented in this encounter Visit Diagnoses Diagnosis Acute non intractable tension-type headache Palpitations Left lower quadrant abdominal pain Slow transit constipation documented in this encounter Additional Health Concerns Assessment Noted Time PHQ-9 Depression Total Score: 8 06/17/20 25 11:48 AM EDT documented as of this encounter Care Teams Under Seal Operator Relationship Specialty Start Date End Date Haily Robb FNP [address] [place] [address] PCP - General Family Medicine 05/01/22 Gregoria Brooks, CHAGO [address] [place] [address] Registered Nurse Family Medicine 06/15/25 Latricia Houser 06/16/25 documented as of this encounter
--- NOTE | ~2025-06-24 | XR_ITS ---
EXAMINATION: XR CHEST CLINICAL INFORMATION: h/o positive T spot COMPARISON: 04/29/2025 TECHNIQUE: 2 views of the chest were obtained. FINDINGS: No significant abnormality is noted involving the heart, lungs, mediastinum, bony thorax or soft tissues. XR/XR chest 2V IMPRESSION: No acute disease, no evidence of chronic granulomatous disease. Electronically signed by: Finesse Witt MD 06/24/2025 04:08 PM EDT
--- OUTSIDE RECORDS SUMMARY | 2025-06-24 14:40 | XMS_ITS | Encounter Summary ---
Author Organization [employer] Address [address] [facility] [address] [place] [address] Care Team Providers Care Applied Biology Professor Name Role Phone Haily Robb TOUR NARRATOR Primary Care Provider Gregoria Brooks RN Unavailable [phone] Latricia Houser Unavailable Reason for Visit * Reason Comments sick visit Encounter Details Date Type Department Care Team (Late st Contact Info) Description 06/24/2025 2:40 PM EDT Office Visit [facility] [address] [place], [place] [phone] Hollis Rutledge MD [address] [place], [place] [phone] Erythema (Primary Dx); Positive QuantiFERON-TB Gold test Social History Tobacco Use Types Packs/Day [...] Sign Reading Time Taken Comments Blood Pressure 125/76 06/24/2025 2:44 PM EDT Pulse 81 06/24/2025 2:44 PM EDT Temperature 36.6 C (97.8 F) 06/24/2025 2:44 PM EDT Respiratory Rate 20 06/24/2025 2:44 PM EDT Oxygen Saturation - - Inhaled Oxygen Concentration - - Weight 62.4 kg (137 lb 9.6 oz) 06/24/2025 2:44 P M EDT Height 172.7 cm (5' 8 ) 06/24/2025 2:44 PM EDT Body Mass Index 20.92 06/24/2025 2:44 PM EDT documented in this encounter Progress Notes * Hollis Rutledge MD - 06/24/2025 2:20 PM EDT Subjective Patient ID: John Ro is a 55 y.o. adult. Personal Development Educator: Lanre ANN For past 3 days his face and hands get red when his forehead feels swollen , lasts 30-60 minutes, occurs 2x/day. Symptoms are not related to time of day or any activity. Denies headache, SOB, cough, fever, chest discomfort, or sensation of throat swelling. Takes BP during episodes, and states that it is in normal range. Has f/u [facility] TB clinic katina't scheduled due to positive T spot 03/31/2024. States they are scheduling chest CT scan. Chest x-ray 04/29/2025:IMPRESSION: Nonspecific mild coarse interstitial markings could represent bronchitis. Lives with girlfriend and step-son. Not employed. Former Smoker. In methadone program. Patient Active Problem List Diagnosis Date Noted Acute non intractable tension-type headache 06/22/2025 Palpitations 06/22/2025 Left lower quadrant abdominal pain 06/22/2025 Slow transit constipation 06/22/2025 Chronic bilateral low back pain without sciatica 04/27/2025 Chronic nonintractable headache 04/27/2025 Drug-induced constipation 04/04/2025 Benign prostatic hyperplasia with urinary frequency 04/04/2025 Stasis dermatitis 03/12/2025 Cellulitis of both feet 03/12/2025 Sore throat 02/28/2025 Acute midline low back pain without sciatica 02/28/2025 Dizziness 02/13/2025 Tinnitus of both ears 02/13/2025 Decreased hearing of both ears 02/13/2025 Cellulitis of lower extremity 02/13/2025 Seasonal allergies 01/20/2025 LLQ pain 01/06/2025 Lung nodules 12/19/2024 Interstitial lung disease (CMS/HCC) (HCC) 11/25/2024 Normal oral exam 10/22/2024 Urinary retention 09/01/2024 Bilateral lower extremity edema 09/01/2024 Pain in both lower extremities 06/30/2024 Lumbar radiculopathy 06/30/2024 Shortness of breath 06/10/2024 Nasal congestion 06/10/2024 Epigastric pain 11/20/2023 Dental calculus 06/25/2023 Generalized gingival recession, moderate 06/25/2023 Partial edentulism 06/25/2023 Odynophagia 06/14/2023 Moderate somatic symptom disorder 05/31/2023 Opioid dependence in remission (CMS/HCC) (HCC) 05/31/2023 Neck pain on left side 09/15/2022 Helicobacter pylori gastritis 08/03/2022 Hyperlipidemia 08/03/2022 Renal cyst, left 08/03/2022 Vitamin D deficiency 08/03/2022 Tobacco use 08/03/2022 Submandibular lymphadenopathy 03/31/2022 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 06/25/2018 Mixed anxiety and depressive disorder 02/22/2017 Chronic pruritus 06/15/2023 Scrotal pain 02/04/2023 Hypogonadism in male 11/02/2022 The following portions of the chart were reviewed this encounter and updated as appropriate: Review of Systems Constitutional: Negative for fever. Respiratory: Negative for shortness of breath. Cardiovascular: Negative for chest pain. Gastrointestinal: Negative for abdominal pain. Skin: Positive for rash. Neurological: Negative for headaches. Objective Physical Exam Constitutional: Appearance: Normal appearance. HENT: Right Ear: Tympanic membrane, ear canal and external ear normal. Left Ear: Tympanic membrane, ear canal and external ear normal. Nose: Nose normal. Mouth/Throat: Mouth: Mucous membranes are moist. Pharynx: Oropharynx is clear. Eyes: Conjunctiva/sclera: Conjunctivae normal. Pupils: Pupils are equal, round, and reactive to light. Cardiovascular: Rate and Rhythm: Normal rate and regular rhythm. Heart sounds: No murmur heard. Pulmonary: Effort: Pulmonary effort is normal. Breath sounds: Normal breath sounds. Musculoskeletal: General: Normal range of motion. Cervical back: No tenderness. Skin: Findings: No rash. Neurological: Mental Status: He is alert. Gait: Gait is intact. Psychiatric: Mood and Affect: Mood normal. Behavior: Behavior normal. Procedures Assessment/Plan Diagnoses and all orders for this visit: Erythema ? Etiology. States has normal BP during episodes. Chest x-ray ordered. Will call pt with report. Rtc if not improving. Positive QuantiFERON-TB Gold test Chest x-ray ordered as above. Advised to keep [facility] tuberculosis Clinic and imaging studies. - XR Chest 2 Views; Future documented in this encounter Plan of Treatment Upcoming Encounters Date Type Department Care Team (Late st Contact Info) Description 06/29/2025 1:00 PM EDT Office Visit [facility] [address] [place] [phone] Hermes Black, RN [address] [place] [phone] 06/29/2025 1:30 PM EDT Office Visit [facility] [address] [place] [phone] Hollis Rutledge MD [address] [place] [phone] documented as of this encounter Goals Goal Patient Goal Type Associated Problems Recent Progress Patient-Stated? Author Patient will adhere to medication regimen General Mary Chauhan documented as of this encounter Procedures Procedure Name Priority Date/Time Associated Diagnosis Comments XR CHEST 2 VIEWS Routine 06/24/2025 4:04 PM EDT Positive QuantiFERON-TB Gold test documented in this encounter Results * XR Chest 2 Views (06/24/2025 4:04 PM EDT) Anatomical Region Laterality Modality Chest Radiographic Cecelia ging 06/24/2025 4:04 PM EDT Narrative 06/24/2025 4:11 PM EDT [address] [address] XRay Report Signed Patient: John Fitzpatrick MR#: [id number] : 1970 Acct:[id number] Age/Sex: 55 / M ADM Date: 06/24/25 Loc: [facility] Attending Dr: Hollis Rutledge MD Ordering Physician: HOLLIS RUTLEDGE MD Date of Service: 06/24/25 Procedure(s): XR chest 2V Accession Number(s): [id number] cc: HOLLIS RUTLEDGE MD Reason for Exam: h/o positive T spot EXAMINATION: XR CHEST CLINICAL INFORMATION: h/o positive T spot COMPARISON: 04/29/2025 TECHNIQUE: 2 views of the chest were obtained. FINDINGS: No significant abnormality is noted involving the heart, lungs, mediastinum, bony thorax or soft tissues. XR/XR chest 2V IMPRESSION: No acute disease, no evidence of chronic granulomatous disease. Electronically signed by: Finesse Witt MD 06/24/2025 04:08 PM EDT RP Dictated By: Finesse Witt MD Signed By: <Electronically signed by Finesse Witt MD in OV> 06/24/25 1608 DD/ 03 TD/TT: 06/24/251603 Seam Feller: Procedure Note Donotuseinterpreter, Image - 06/24/2025 [place] [address] XRay Report Signed Patient: John Fitzpatrick AMR#: [id number] : 1970Acct:[id number] Age/Sex: 55 / MADM Date: 06/24/25 Loc: [facility] Attending Dr: Hollis Rutledge MD Ordering Physician: HOLLIS RUTLEDGE MD Date of Service: 06/24/25 Procedure(s): XR chest 2V Accession Number(s): [id number] cc: HOLLIS RUTLEDGE MD Reason for Exam: h/o positive T spot EXAMINATION: XR CHEST CLINICAL INFORMATION: h/o positive T spot COMPARISON: 04/29/2025 TECHNIQUE: 2 views of the chest were obtained. FINDINGS: No significant abnormality is noted involving the heart, lungs, mediastinum, bony thorax or soft tissues. XR/XR chest 2V IMPRESSION: No acute disease, no evidence of chronic granulomatous disease. Electronically signed by: Finesse Witt MD 06/24/2025 04:08 PM EDT RP Dictated By: Finesse Witt MD Signed By: <Electronically signed by Finesse Witt MD in OV> 06/24/25 1608 DD/ 1604 TD/TT: 06/24/25 1604 Seam Feller: Hollis Rutledge MD IMG XR PROCEDURES Final Result documented in this encounter Visit Diagnoses Diagnosis Erythema- Primary Unspecified erythematous condition Positive QuantiFERON-TB Gold test documented in this encounter Additional Health Concerns Assessment Noted Time PHQ-9 Depression Total Score: 8 06/17/20 11:48 AM EDT documented as of this encounter Care Teams Applied Biology Professor Relationship Specialty Start Date End Date Haily Robb FNP [address] [place] [address] PCP - General Family Medicine 05/01/22 Gregoria Brooks, CHAGO [address] [place] [address] Registered Nurse Family Medicine 06/15/25 Latricia Houser 06/16/25 documented as of this encounter
--- OUTSIDE RECORDS SUMMARY | 2025-06-24 21:48 | XMS_ITS | Encounter Summary ---
Author Organization [employer] Address [address] [facility] 7t [place] [address] Care Team Providers Care Glory Hole Tender Name Role Phone [place], [facility] Primary Care Provider [phone] Gregoria Brooks RN Unavailable [phone] Latricia Houser Unavailable Reason for Visit * Reason Comments Care Management C3CM- FOLLOW UP CALL Encounter Details Date Type Department Care Team (Late st Contact Info) Description 06/23/2025 Patient Outreach [facility] MEDICINE [address] [place], [place] [phone] Clarisse Haily [facility] 230 [place] [address] Care Management (C3CM- FOLLOW UP CALL ) Social History Tobacco Use Types Packs/Day [...] AM EDT documented as of this encounter Progress Notes * Gregoria Brooks RN - 06/23/2025 12:30 PM EDT VERNON Brooks RN placed inbound call to patient. Patient's name, and address confirmed. Patient states is doing ok after being seen at [facility] for VILLAR and abdominal pain. Patient states was able to pickling operator prescription for acetaminophen and polycarbophil and miralax. Patient denies any worsening symptoms today. Patient made aware of Pain Management appointment scheduled for 07/14/25 at 10am at [facility] Pain Management. Patient requesting text via [employer] F[employer] for the rest of us with appointment details. Patient asked if able to call Cardiology to set up follow up as mentioned at [facility] visit. Patient states does not recall when appointment was originally for or who it was with. Patient requesting CM assist with rescheduling appointment with Cardiology. Patient also requesting CM assist with tuberculosis clinic appointment. Made aware of information given by Katia at TB clinic on 06/18/25 regarding need for open MRI to be done prior to Neurosurgeon appointment , then patient will be able to resume latent TB treatment. CM advised Patient will attempt to call TB clinic again today to see status of Open MRI order. No further questions or concerns. CM reinforced direct contact information or CHW for any additional questions or concerns. Education provided on [facility]In Ur[facility] Care located in [facility] of [facility]. Patient provided with after-hours line for [facility], , which offer night time triage service and option to transfer to content curator provider if needed. Patient verbalizes understanding, and able to repeat back to blog writer. A follow up call will be placed within 10 days, patientagrees with plan. Looked in [facility] but no Cardiology notes found within last 5 years. Did note Vascular Surgery OV note from 06/12/25. Will upload to patient chart for chart update. Plan of care at that visit I recommended that the patient start with knee high 15-20mmHg compression. ordered a BILATERAL venous reflux study to be performed, after 3 months of trial compression therapy. I follow up with the patient to review these results to see if there would be any clinical benefit from an ablation procedure. Per chart review Patient seen at [facility] for follow up proteinuriaon 06/23/25. Per OV note patient had normal renal function with normal serum creatinine 0.95, no significant proteinuria UA is benign. Provider Discontinued furosemide 20mg PO daily. CM placed call to [facility] to confirm that discontinue order received, spoke with Marianela who states Patient [facility] Advised Marianela will forward noteto PCP to review both Nephrology note and Vascular Surgery Note and advise pharmacy if Patient to continue or discontinue her order.Will update patient at next follow up call. Call to TB clinic for follow up, spoke again with Katia. Provides update that MRI order placed today for patient, patient will need insurance referral prior to scheduling. Patient will receive a callfor scheduling in approximately 2 weeks from either [facility] or [facility]. CM placed outbound call to patient and made aware of above information. Patient advised to call CM if does not hear from office after 2 weeks or if receives call and needs help with interpretation. Patient verbalized understanding and agrees. documented in this encounter Plan of Treatment Upcoming Encounters Date Type Department Care Team (Late st Contact Info) Description 06/29/2025 1:00 PM EDT Office Visit [address] [address] Hermes Black RN [address] [place] [address] 06/29/2025 1:30 PM EDT Office Visit [address] [address] Hollis Rutledge MD [address] [place] [address] documented as of this encounter Goals Goal Patient Goal Type Associated Problems Recent Progress Patient-Stated? Author Patient will adhere to medication regimen General Mary Chauhan documented as of this encounter Visit Diagnoses Not on filedocumented in this encounter Additional Health Concerns Assessment Noted Time PHQ-9 Depression Total Score: 8 06/17/20 25 11:48 AM EDT documented as of this encounter Care Teams Glory Hole Tender Relationship Specialty Start Date End Date [place] FNP [address] [place] [address] PCP - General Family Medicine 05/01/22 Gregoria Brooks RN [address] [place] [address] Registered Nurse Family Medicine 06/15/25 Latricia Houser 06/16/25 documented as of this encounter
--- OUTSIDE RECORDS SUMMARY | 2025-06-24 21:48 | XMS_ITS | Encounter Summary ---
Author Organization [employer] Address 75 [facility] 7t [place] [address] Care Team Providers Care Loan Review Officer Name Role Phone Clarisse [facility] Primary Care Provider Gregoria Brooks RN Unavailable [phone] Latricia Houser Unavailable Reason for Visit * Reason Comments Med Refill Encounter Details Date Type Department Care Team (Late st Contact Info) Description 01/01/2023 Refill [facility] MEDICINE [address] [place], [place] [phone] [place] Haily [facility] 230 [place], [place] [phone] Chronic sinusitis, unspecified location Social History Tobacco [...] Description 06/29/2025 1:00 PM EDT Office Visit [facility] MEDICINE [address] [place] [address] Hermes Black, RN [address] [place] [address] 06/29/2025 1:30 PM EDT Office Visit [facility] MEDICINE [address] [place] [address] Hollis Rutledge MD [address] [place] [address] documented as of this encounter Visit Diagnoses Diagnosis Chronic sinusitis, unspecified location documented in this encounter Additional Health Concerns Assessment Noted Time PHQ-9 Depression Total Score: 0 11/03/19 23 10:32 AM EST documented as of this encounter Care Teams Loan Review Officer Relationship Specialty Start Date End Date [place] FNP [address] [place] [address] PCP - General Family Medicine 05/01/22 Gregoria Brooks, CHAGO [address] [place] [address] Registered Nurse Family Medicine 06/15/25 Latricia Houser 06/16/25 documented as of this encounter
--- OUTSIDE RECORDS SUMMARY | 2025-06-24 21:48 | XMS_ITS | Encounter Summary ---
Author Organization [employer] Address 75 [facility] 7t [place] [address] Care Team Providers Care Telephone Lines Repairer Name Role Phone Clarisse [facility] Primary Care Provider [phone] Gregoria Brooks RN Unavailable [phone] Latricia Houser Unavailable Reason for Visit * Reason Onset Date Comments Nurse Triage 02/16/2023 Encounter Details Date Type Department Care Team (Late st Contact Info) Description 02/16/2023 Telephone [facility] MEDICINE 230 [place], [place] [phone] TerralHaily [facility] 230 [place], [place] [phone] Nurse Triage Social History Tobacco Use Types [...] - 02/23/2023 2:49 PM EDT T/C to [id number] through Connect[employer] interpreters id - [id number] for below message, pt. Verbally agreed and understood. * Telephone Encounter - Angela Whitman LPN - 02/16/2023 2:48 PM EDT Triage call returned to patient via Loccie Monitoring Engineer [id number]. Patient called with concerns of Left eye burning and tearing at times with blurred vision. No irritant or object in eye at this time. Patient reports that he was seen some time ago in [facility] and was given order to obtain eye [...] suggested disposition Override Notes: Patient seen in [facility] and was told to use eye drops several months ago. Patient requesting only referral to Lock Up Worker. Video visit not offered Positive Triage Question: [...] Description 06/29/2025 1:00 PM EDT Office Visit [facility] MEDICINE [address] [place] [address] Hermes Black, RN [address] [place] [address] 06/29/2025 1:30 PM EDT Office Visit [facility] MEDICINE [address] [place] [address] Hollis Rutledge MD [address] [place] [address] documented as of this encounter Visit Diagnoses Not on filedocumented in this encounter Additional Health Concerns Assessment Noted Time PHQ-9 Depression Total Score: 0 01/26/20 23 3:38 PM EDT documented as of this encounter Care Teams Telephone Lines Repairer Relationship Specialty Start Date End Date Haily Robb FNP [address] [place] [address] PCP - General Family Medicine 05/01/22 Gregoria Brooks, CHAGO [address] [place] [address] Registered Nurse Family Medicine 06/15/25 Latricia Houser 06/16/25 documented as of this encounter
--- OUTSIDE RECORDS SUMMARY | 2025-06-24 21:48 | XMS_ITS | Encounter Summary ---
Author Organization [employer] Address 75 [facility] 7t [place] [address] Care Team Providers Care Rn Midwife Name Role Phone Haily Robb TREASURY CONSULTANT Primary Care Provider [phone] Gregoria Brooks RN Unavailable [phone] Latricia Houser Unavailable Reason for Visit * Reason Comments Recovery Supports Encounter Details Date Type Department Care Team (Late st Contact Info) Description 06/24/2025 Patient Outreach [facility] MEDICINE [address] [place] [address] Lino Holder Recovery Supports Social History Tobacco Use Types Packs/Day Years [...] as of this encounter Progress Notes * Lino Holder - 06/24/2025 2:47 PM EDT I met with John dugan. Setting: in person at [facility] Recovery Wellness Goals worked on: Social Stability and Housing Stability Action taken/next steps: Offered person centered recovery support Additional comments: Lino Holder documented in this encounter Plan of Treatment Upcoming Encounters Date Type Department Care Team (Late st Contact Info) Description 06/29/2025 1:00 PM EDT Office Visit [facility] MEDICINE [address] [place] [address] Hermes Black, CHAGO 230 [place] [address] 06/29/2025 1:30 PM EDT Office Visit [facility] MEDICINE [address] [place] [address] Hollis Rutledge MD [address] [place] [address] documented as of this encounter Goals Goal Patient Goal Type Associated Problems Recent Progress Patient-Stated? Author Patient will adhere to medication regimen General No Mary Moreland documented as of this encounter Visit Diagnoses Not on filedocumented in this encounter Additional Health Concerns Assessment Noted Time PHQ-9 Depression Total Score: 8 06/17/20 11:48 AM EDT documented as of this encounter Care Teams Rn Midwife Relationship Specialty Start Date End Date Haily Robb FNP [address] [place] [address] PCP - General Family Medicine 05/01/22 Gregoria Brooks, CHAGO [address] [place] [address] Registered Nurse Family Medicine 06/15/25 Latricia Houser 06/16/25 documented as of this encounter
--- OUTSIDE RECORDS SUMMARY | 2025-06-24 21:48 | XMS_ITS ---
Author Organization [employer] Address 75 [facility] 7t [place] [address] Care Team Providers Care Inbound Call Center Agent Name Role Phone Newell Luna DEVELOPMENT EDITOR Primary Care Provider [phone] Gregoria Brooks RN Unavailable [phone] Latricia Houser Unavailable CHW Complex Status:Enrolled (Active) Start date:06/16/2025 Enrollment date:06/16/2025 Enrollment reason:Referred by provider Overview Provider Referral- Patient needs assistance with getting reconnected with the [facility] Adult Day program. Please outreach to patient. Case Team Name Relationship Phone Latricia Houser(Responsible Staff) Continued Care and Services Coordination
--- OUTSIDE RECORDS SUMMARY | 2025-06-24 21:48 | XMS_ITS | Encounter Summary ---
Author Organization [employer] Address [address] [facility] [address] 7t [place] [address] Care Team Providers Care Trade Recruiter Name Role Phone Haily Robb BEVERAGE SERVER Primary Care Provider [phone] Gregoria Brooks RN Unavailable [phone] Latricia Houser Unavailable Reason for Visit * Reason Onset Date Comments OBAT Communication 06/24/2025 Encounter Details Date Type Department Care Team (Late st Contact Info) Description 06/24/2025 Telephone [facility] MEDICINE 230 [place], [place] [phone] Hermes Black RN 230 [place] [address] OBAT Communication Social History Tobacco Use Types Packs/Day Years [...] encounter Miscellaneous Notes * Telephone Encounter - Hermes Black RN - 06/24/2025 12:09 PM EDT Spoke with pt in CRS, currently on methadone 28 mg and considering switch to Suboxone or Sublocade.He currently receives 27 bottles and has been in care home recovery for years. Discussed need to be completely off methadone for 48 hrs before Suboxone induction and availabilityof comfort meds. Discussed if he is interested in Sublocade, need to be on sublingual bup for 1 week. Discussed visit intervals would start weekly to ensure correct dose. Pt wishes to discuss furtherwith OBAT provider, given appointments for intake 06/29/25. documented in this encounter Plan of Treatment Upcoming Encounters Date Type Department Care Team (Late st Contact Info) Description 06/29/2025 1:00 PM EDT Office Visit [facility] MEDICINE [address] [place] [address] Hermes Black, CHAGO [address] [place] [address] 06/29/2025 1:30 PM EDT Office Visit [facility] MEDICINE [address] [place] [address] Hollis Rutledge MD [address] [place] [address] documented as of this encounter Goals Goal Patient Goal Type Associated Problems Recent Progress Patient-Stated? Author Patient will adhere to medication regimen General No Mary Moreland documented as of this encounter Visit Diagnoses Not on filedocumented in this encounter Additional Health Concerns Assessment Noted Time PHQ-9 Depression Total Score: 8 06/17/20 25 11:48 AM EDT documented as of this encounter Care Teams Trade Recruiter Relationship Specialty Start Date End Date Haily Robb FNP [address] [place] [address] PCP - General Family Medicine 05/01/22 Gregoria Brooks RN [address] [place] [address] Registered Nurse Family Medicine 06/15/25 Latricia Houser 06/16/25 documented as of this encounter
--- OUTSIDE RECORDS SUMMARY | 2025-06-24 21:48 | XMS_ITS | Encounter Summary ---
Author Organization [employer] Address [address] [facility] [address] 7t [place] [address] Care Team Providers Care Nnps Name Role Phone Clarisse [facility] Primary Care Provider Gregoria Brooks RN Unavailable [phone] Latricia Houser Unavailable Reason for Visit * Reason Onset Date Comments Medication Question 08/24/2022 Encounter Details Date Type Department Care Team (Late st Contact Info) Description 08/24/2022 Telephone [facility] MEDICINE 230 [place], [place] [phone] KandiyohiHaily FNP 230 [place], [place] [phone] Medication Question Social History Tobacco Use Types [...] requesting a call back. States went to pickler helper his medication and they gave him vitamin C and he would like to know if he should be taking them again . Please call to clarify. documented in this encounter Plan of Treatment Upcoming Encounters Date Type Department Care Team (Late st Contact Info) Description 06/29/2025 1:00 PM EDT Office Visit [facility] MEDICINE [address] [place] [address] Hermes Black RN [address] [place] [address] 06/29/2025 1:30 PM EDT Office Visit [facility] MEDICINE [address] [place] [address] Hollis Rutledge MD 230 [place] [address] documented as of this encounter Visit Diagnoses Not on filedocumented in this encounter Care Teams Nnps Relationship Specialty Start Date End Date Haily Robb FNP [address] [place] [address] PCP - General Family Medicine 05/01/22 Gregoria Brooks RN [address] [place] [address] Registered Nurse Family Medicine 06/15/25 Latricia Houser 06/16/25 documented as of this encounter
--- OUTSIDE RECORDS SUMMARY | 2025-06-24 21:48 | XMS_ITS | Encounter Summary ---
Author Organization [employer] Address 75 [facility] 7t [place] [address] Care Team Providers Care Portfolio Director Name Role Phone Haily Robb SHOP MANAGER Primary Care Provider [phone] Gregoria Brooks RN Unavailable [phone] Latricia Houser Unavailable Reason for Visit * Reason Onset Date Comments Appointment Request 10/08/2023 Encounter Details Date Type Department Care Team (Late st Contact Info) Description 10/08/2023 Telephone [facility] MEDICINE 230 [place], [place] [phone] Haily Robb FNP 230 [place], [place] [phone] Appointment Request Social History Tobacco Use Types [...] gotten any better. Please contact pt at [phone] documented in this encounter Plan of Treatment Upcoming Encounters Date Type Department Care Team (Late st Contact Info) Description 06/29/2025 1:00 PM EDT Office Visit [facility] MEDICINE [address] [place] [address] Hermes Black RN [address] [place] [address] 06/29/2025 1:30 PM EDT Office Visit [facility] MEDICINE [address] [place] [address] Hollis Rutledge MD [address] [place] [address] documented as of this encounter Visit Diagnoses Not on filedocumented in this encounter Additional Health Concerns Assessment Noted Time PHQ-9 Depression Total Score: 0 08/15/20 23 3:52 PM EST documented as of this encounter Care Teams Portfolio Director Relationship Specialty Start Date End Date Haily RobbANETA [address] [place] [address] PCP - General Family Medicine 05/01/22 Gregoria Brooks, CHAGO [address] [place] [address] Registered Nurse Family Medicine 06/15/25 Latricia Houser 06/16/25 documented as of this encounter
--- OUTSIDE RECORDS SUMMARY | 2025-06-24 21:48 | XMS_ITS | Encounter Summary ---
Author Organization [employer] Address 75 [facility] 7t [place] [address] Care Team Providers Care Pediatric Dentist Name Role Phone Add[facility] Primary Care Provider [phone] Gregoria Brooks RN Unavailable [phone] Latricia Houser Unavailable Reason for Visit * Reason Comments Care Coordination Encounter Details Date Type Department Care Team (Late st Contact Info) Description 06/18/2025 Patient Outreach [facility] MEDICINE 230 [place], [place] [phone] [facility] 230 [place] [address] Care Coordination Social History Tobacco Use Types Packs/Day Years [...] Progress Notes * Gregoria Brooks RN - 06/18/2025 9:34 AM EDT Second attempt to reach TB clinic to coordinate appointment on patient behalf. No answer again. LVMwith patient information, contact information [phone]. Will follow up again within 10 business days prior to first follow up call with patient. Second attempt to [facility] GI office. No answer, LVM again requesting return call to direct line with details of patient follow up plan following GI consult. * Gregoria Brooks RN - 06/18/2025 9:34 AM EDT Incoming call from Katia with TB clinic reporting that Patient was seen back in March 2025. Per notes Patient was referred to [facility] Neurosurgeon due to finding of CT scan. Neurosurgery will not see patinet unless has had MRI within past 12 months. Patient requested that MRI be opendue to claustrophobia. TB clinic provider has not yet placed order. Per Katia once Patient completes MRI and is able to follow up with Neurosurgery will be scheduled for TB clinic follow up. * Gregoria Brooks RN - 06/18/2025 9:34 AM EDT Third attempt to reach [facility] GI to coordinate rescheduling endoscopy and colonoscopy. Spoke with Nelda in surgical Scheduling. Patient rescheduled for Upper Endoscopy and Colonoscopy on 08/06/25 at 6:45am at [facility]. Patient also scheduled for a RN post opfollow up on Sunday09/08/25 at [address] [place] [address]. VERNON Brooks RN placed outbound call to John Ro to advise of above informationregarding appointment. No answer, LVM introducing herself from [facility] CM Department,Requested call back to . * Gregoria Brooks RN - 06/18/2025 9:34 AM EDT VERNON Brooks RN received inbound call from John Ro. Patient made aware of below appointment information. Patient agreeable at this time. Patient also states attempted to call [facility] Pain Management but unable to follow prompts. Patient requesting CM assist withscheduling. Agrees to morning appointment. Will attempt call to [facility] pain clinicand update patient. Patient also requesting appointment information be sent via text with [employer] as reminder. * Gregoria Brooks RN - 06/18/2025 9:34 AM EDT CM Gregoria Brooks RN placed outbound call to [facility] Pain Management, spoke with Anyi to assist with coordinating initial appointment following referral. Patient scheduled for 07/14/25 at 10am at [address] [place] [address]. Will update patient at next follow up appointmentand ensure CHW coordinates PT1 for patient. documented in this encounter Plan of Treatment Upcoming Encounters Date Type Department Care Team ([facility] st Contact Info) Description 06/29/2025 1:00 PM EDT Office Visit [facility] MEDICINE [address] [place] [address] Hermes Black RN [address] [place] [address] 06/29/2025 1:30 PM EDT Office Visit [facility] MEDICINE [address] [place] [address] Hollis Rutledge MD [address] [place] [address] documented as of this encounter Goals Goal Patient Goal Type Associated Problems Recent Progress Patient-Stated? Author Patient will adhere to medication regimen General Mary Chauhan documented as of this encounter Visit Diagnoses Not on filedocumented in this encounter Additional Health Concerns Assessment Noted Time PHQ-9 Depression Total Score: 8 06/17/20 25 11:48 AM EDT documented as of this encounter Care Teams Pediatric Dentist Relationship Specialty Start Date End Date Haily Robb FNP [address] [place] [address] PCP - General Family Medicine 05/01/22 Gregoria Brooks RN [address] [place] [address] Registered Nurse Family Medicine 06/15/25 Latricia Houser 06/16/25 documented as of this encounter
--- OUTSIDE RECORDS SUMMARY | 2025-06-24 21:48 | XMS_ITS | Encounter Summary ---
Author Organization [employer] Address 75 [facility] 7t [place] [address] Care Team Providers Care Hall Tender Name Role Phone Clarisse [facility] Primary Care Provider [phone] Gregoria Brooks RN Unavailable [phone] Latricia Houser Unavailable Reason for Visit * Reason Onset Date Comments Medication Question 01/16/2023 Encounter Details Date Type Department Care Team (Late st Contact Info) Description 01/16/2023 Telephone [facility] 230 [place], [place] [phone] SavannahHaily [facility] 230 [place], [place] [phone] Medication Question Social History Tobacco Use Types [...] Miscellaneous Notes * Telephone Encounter - Haydee Addis - 01/16/2023 1:18 PM EDT Tc from pt requesting a call back to discuss getting a change with medication omeprazole (PriLOSEC)[address] capsule. documented in this encounter Plan of Treatment Upcoming Encounters Date Type Department Care Team (Late st Contact Info) Description 06/29/2025 1:00 PM EDT Office Visit [facility] [address] [place] [address] Hermes Black RN [address] [place] [address] 06/29/2025 1:30 PM EDT Office Visit [facility] [address] [place] [address] Hollis Rutledge MD 230 [place] [address] documented as of this encounter Visit Diagnoses Not on filedocumented in this encounter Additional Health Concerns Assessment Noted Time PHQ-9 Depression Total Score: 0 11/03/19 23 10:32 AM EST documented as of this encounter Care Teams Hall Tender Relationship Specialty Start Date End Date Clarisse Haily, [facility] [address] [place] [address] PCP - General Family Medicine 05/01/22 Gregoria Brooks, CHAGO [address] [place] [address] Registered Nurse Family Medicine 06/15/25 Latricia Houser 06/16/25 documented as of this encounter
--- OUTSIDE RECORDS SUMMARY | 2025-06-24 21:48 | XMS_ITS | Encounter Summary ---
Author Organization [employer] Address [address] [facility] [address] 7t [place] [address] Care Team Providers Care Drain Tile Machine Operator Name Role Phone Haily Robb DATA WAREHOUSING MANAGER Primary Care Provider Gregoria Brooks RN Unavailable [phone] Latricia Houser Unavailable Encounter Details Date Type Department Care Team (Late st Contact Info) Description 06/24/2025 Results Follow-Up [facility] 230 [place], [place] [phone] Hollis Rutledge MD 230 [place], [place] [phone] XR Chest 2 Views Social History Tobacco Use Types Packs/Day Years [...] Description 06/29/2025 1:00 PM EDT Office Visit [facility] [address] [place] [address] Hermes Black RN [address] [place] [address] 06/29/2025 1:30 PM EDT Office Visit [facility] [address] [place] [address] Hollis Rutledge MD [address] [place] [address] documented as of this encounter Goals Goal Patient Goal Type Associated Problems Recent Progress Patient-Stated? Author Patient will adhere to medication regimen General No Mary Moreland documented as of this encounter Visit Diagnoses Not on filedocumented in this encounter Additional Health Concerns Assessment Noted Time PHQ-9 Depression Total Score: 8 06/17/20 25 11:48 AM EDT documented as of this encounter Care Teams Drain Tile Machine Operator Relationship Specialty Start Date End Date FoleyHaily FNP 230 [place] [address] PCP - General Family Medicine 05/01/22 Gregoria Brooks RN 230 [place] [address] Registered Nurse Family Medicine 06/15/25 Latricia Houser 06/16/25 documented as of this encounter
--- OUTSIDE RECORDS SUMMARY | 2025-06-24 21:48 | XMS_ITS | Encounter Summary ---
Author Organization [employer] Address 75 [facility] 7t [place] [address] Care Team Providers Care Weaver Narrow Fabrics Name Role Phone SchoenchenHaily molina KENO TERMINAL OPERATOR Primary Care Provider Gregoria Brooks RN Unavailable [phone] Latricia Houser Unavailable Reason for Visit * Reason Onset Date Comments Nurse Triage 02/11/2024 Encounter Details Date Type Department Care Team (Late st Contact Info) Description 02/11/2024 Telephone [facility] 230 [place], [place] [phone] SchoenchenHaily FNP 230 [place], [place] [phone] Nurse Triage Social History Tobacco Use Types [...] Miscellaneous Notes * Telephone Encounter - Angela Whitman LPN - 02/11/2024 12:47 PM EDT Triage call returned to patient with [place] medical interpreter [id number]. 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 No diagnosis in chart.Advised of [facility] for evaluation today. [...] Reason: Other Override Notes: Being treated with grain origination specialist with appt coming in 03/11/24 Video [...] involuntary movements The caller accepted this outcome Swazi speaker documented in this encounter Plan of Treatment Upcoming Encounters Date Type Department Care Team (Late st Contact Info) Description 06/29/2025 1:00 PM EDT Office Visit [facility] [address] [place] [address] Hermes Black, CHAGO 230 [place] [address] 06/29/2025 1:30 PM EDT Office Visit [facility] [address] [place] [address] Hollis Rutledge MD 230 [place] [address] documented as of this encounter Goals Goal Patient Goal Type Associated Problems Recent Progress Patient-Stated? Author Patient will adhere to medication regimen General No Mary Moreland documented as of this encounter Visit Diagnoses Not on filedocumented in this encounter Additional Health Concerns Assessment Noted Time PHQ-9 Depression Total Score: 0 08/15/20 23 3:52 PM EST documented as of this encounter Care Teams [place] [employer]rics Relationship Specialty Start Date End Date Haily Robb FNP 230 [place] [address] PCP - General Family Medicine 05/01/22 Gregoria Brooks, CHAGO [address] [place] [address] Registered Nurse Family Medicine 06/15/25 Latircia Houser 06/16/25 documented as of this encounter
--- OUTSIDE RECORDS SUMMARY | 2025-06-24 21:48 | XMS_ITS | Encounter Summary ---
Author Organization [employer] Address 75 [facility] 7t [place] [address] Care Team Providers Care Process Development Engineer Name Role Phone Clarisse [facility] Primary Care Provider Gregoria Brooks RN Unavailable Latricia Houser Unavailable Reason for Visit * Reason Onset Date Comments Triage 09/20/2022 Encounter Details Date Type Department Care Team (Late st Contact Info) Description 09/20/2022 Telephone [facility] 230 [place], [place] [phone] ClarisseHaily [facility] 230 [place], [place] [phone] Triage Social History Tobacco Use Types Packs/Day [...] 09/20/2022 11:55 AM EST Triage call with [place] Straightener [place] [id number] Pt reports an area on back that [...] No high acuity concerns reported by caller WOLOF SPEAKER The caller accepted this outcome documented in this encounter Plan of Treatment Upcoming Encounters Date Type Department Care Team (Late st Contact Info) Description 06/29/2025 1:00 PM EDT Office Visit [facility] [address] [place] [address] Hermes Black RN [address] [place] [address] 06/29/2025 1:30 PM EDT Office Visit [facility] [address] [place] [address] Hollis Rutledge MD [address] [place] [address] documented as of this encounter Visit Diagnoses Not on filedocumented in this encounter Care Teams Process Development Engineer Relationship Specialty Start Date End Date Haily Robb ANETA 230 [place] [address] PCP - General Family Medicine 05/01/22 Gregoria Brooks RN 230 [place] [address] Registered Nurse Family Medicine 06/15/25 Latricia Houser 06/16/25 documented as of this encounter
--- OUTSIDE RECORDS SUMMARY | 2025-06-24 21:48 | XMS_ITS | Encounter Summary ---
Author Organization [employer] Address 75 [facility] 7t [place] [address] Care Team Providers Care Arc Welder Apprentice Name Role Phone Haily Robb SUPERVISOR MODEL MAKING Primary Care Provider [phone] Gregoria Brooks RN Unavailable [phone] Latricia Houser Unavailable Reason for Visit * Reason Onset Date Comments Results 06/24/2025 Encounter Details Date Type Department Care Team (Late st Contact Info) Description 06/24/2025 Telephone [facility] 230 [place], [place] [phone] Haily Robb SUPERVISOR MODEL MAKING 230 [place], [place] [phone] Results Social History Tobacco Use Types Packs/Day [...] with others, in a hotel, in a intermediate, living outside on the street, on a [...] Telephone Encounter - Magi Magdaleno RN - 06/24/2025 2:07 PM EDT TC returned to pt. Informed pt. Thyroid function from 06/22/25 returned WNL. Pt. Verbalizes understanding, reports he is still having a lot of bone pain but reports this was discussed at appointment On 06/22/25 and will continue with plan of care * Telephone Encounter - Collins Allen - 06/24/2025 10:56 AM EDT Tc from pt requesting a call regarding the results of the TSH w/reflex to FT4 contact pt at [phone] documented in this encounter Plan of Treatment Upcoming Encounters Date Type Department Care Team ([facility] st Contact Info) Description 06/29/2025 1:00 PM EDT Office Visit [address] [address] Hermes Black RN [address] [place] [address] 06/29/2025 1:30 PM EDT Office Visit [address] [address] Hollis Rutledge MD [address] [place] [address] documented as of this encounter Goals Goal Patient Goal Type Associated Problems Recent Progress Patient-Stated? Author Patient will adhere to medication regimen General No Mary Moreland documented as of this encounter Visit Diagnoses Not on filedocumented in this encounter Additional Health Concerns Assessment Noted Time PHQ-9 Depression Total Score: 8 06/17/20 25 11:48 AM EDT documented as of this encounter Care Teams Arc Welder Apprentice Relationship Specialty Start Date End Date Haily Robb FNP [address] [place] [address] PCP - General Family Medicine 05/01/22 Gregoria Brooks RN [address] [place] [address] Registered Nurse Family Medicine 06/15/25 Latricia Houser 06/16/25 documented as of this encounter
--- OUTSIDE RECORDS SUMMARY | 2025-06-24 21:48 | XMS_ITS | Encounter Summary ---
Author Organization [employer] Address 75 [facility] 7t [place] [address] Care Team Providers Care Sausage Tier Name Role Phone Clarisse [facility] Primary Care Provider Gregoria Brooks RN Unavailable [phone] Latricia Houser Unavailable Reason for Visit * Reason Onset Date Comments triage 11/10/2022 Encounter Details Date Type Department Care Team (Late st Contact Info) Description 11/10/2022 Telephone [facility] MED[facility]INE 230 [place], [place] [phone] ClarisseHaily [facility] 230 [place], [place] [phone] triage Social History Tobacco Use Types Packs/Day [...] in office. Pt agrees to come into [facility] for exam. Pt also advised to [...] question The caller accepted this outcome speaks kazakh documented in this encounter Plan of Treatment Upcoming Encounters Date Type Department Care Team (Late st Contact Info) Description 06/29/2025 1:00 PM EDT Office Visit [facility] MEDICINE [address] [place] [address] Hermes Black, CHAGO [address] [place] [address] 06/29/2025 1:30 PM EDT Office Visit [facility]INE [address] [place] [address] Hollis Rutledge MD 230 [place] [address] documented as of this encounter Visit Diagnoses Not on filedocumented in this encounter Additional Health Concerns Assessment Noted Time PHQ-9 Depression Total Score: 0 11/03/19 23 10:32 AM EST documented as of this encounter Care Teams Sausage Tier Relationship Specialty Start Date End Date [place] Haily SENIOR PLANNING MANAGER [address] [place] [address] PCP - General Family Medicine 05/01/22 Gregoria Brooks, CHAGO [address] [place] [address] Registered Nurse Family Medicine 06/15/25 Latricia Houser 06/16/25 documented as of this encounter
--- OUTSIDE RECORDS SUMMARY | 2025-06-24 21:48 | XMS_ITS | Encounter Summary ---
Author Organization [employer] Address 75 [facility] 7t [place] [address] Care Team Providers Care Food Critic Name Role Phone Clarisse Haily MASTER SCHEDULER Primary Care Provider [phone] Gregoria Brooks RN Unavailable [phone] Latricia Houser Unavailable Encounter Details Date Type Department Care Team (Latest Contact Info) Description 06/24/2025 Travel Social History Tobacco Use Types Packs/Day [...] the past 12 months, has t he [employer], gas, oil or water company threatened to [...] [facility] [address] [place] [address] Hermes Black RN [address] [place] [address] 06/29/2025 1:30 PM EDT Office Visit [facility] [address] [place] [address] Hollis Rutledge MD [address] [place] [address] documented as of this encounter Goals Goal Patient Goal Type Associated Problems Recent Progress Patient-Stated? Author Patient will adhere to medication regimen General No Mary Moreland documented as of this encounter Visit Diagnoses Not on filedocumented in this encounter Additional Health Concerns Assessment Noted Time PHQ-9 Depression Total Score: 8 06/17/20 25 11:48 AM EDT documented as of this encounter Care Teams Food Critic Relationship Specialty Start Date End Date Haily Robb MASTER SCHEDULER 230 [place] [address] PCP - General Family Medicine 05/01/22 Gregoria Brooks RN 230 [place] [address] Registered Nurse Family Medicine 06/15/25 Latricia Houser 06/16/25 documented as of this encounter
--- OUTSIDE RECORDS SUMMARY | 2025-06-24 21:48 | XMS_ITS | Encounter Summary ---
Author Organization [employer] Address 75 [facility] 7t [place] [address] Care Team Providers Care Military Cook Name Role Phone Clarisse [facility] Primary Care Provider [phone] Gregoria Brooks RN Unavailable [phone] Latricia Houser Unavailable Reason for Visit * Reason Onset Date Comments Med Refill 12/13/2023 Encounter Details Date Type Department Care Team (Late st Contact Info) Description 12/13/2023 Telephone [facility] 230 [place], [place] [phone] ClraisseHaily [facility] 230 [place], [place] [phone] Med Refill Social History Tobacco Use Types [...] 10:24 AM EDT Medication was sent to [facility] on 11/09/23 with 2 refills. * Telephone Encounter - Christine Taylor - 12/13/2023 10:19 AM EDT TC from pt requesting medication refill. Medications needing refill : melatonin 5 MG tablet To be sent to: [facility] - [place], [place] - 230 [facility] documented in this encounter Plan of Treatment Upcoming Encounters Date Type Department Care Team (Late st Contact Info) Description 06/29/2025 1:00 PM EDT Office Visit [facility] 230 [place] [address] Hermes Black, CHAGO [address] [place] [address] 06/29/2025 1:30 PM EDT Office Visit [facility] [address] [place] [address] Hollis Rutledge MD 230 [place] [address] documented as of this encounter Visit Diagnoses Not on filedocumented in this encounter Additional Health Concerns Assessment Noted Time PHQ-9 Depression Total Score: 0 08/15/20 23 3:52 PM EST documented as of this encounter Care Teams Military Cook Relationship Specialty Start Date End Date Haily Robb FNP [address] [place] [address] PCP - General Family Medicine 05/01/22 Gregoria Brooks, CHAGO [address] [place] [address] Registered Nurse Family Medicine 06/15/25 Latricia Houser 06/16/25 documented as of this encounter
--- OUTSIDE RECORDS SUMMARY | 2025-06-24 21:48 | XMS_ITS | Encounter Summary ---
Author Organization [employer] Address 75 [facility] 7t [place] [address] Care Team Providers Care Baker Chef Name Role Phone Clarisse [facility] Primary Care Provider [phone] Gregoria Brooks RN Unavailable [phone] Latricia Houser Unavailable Reason for Visit * Reason Onset Date Comments Med Refill 09/25/2023 Encounter Details Date Type Department Care Team (Late st Contact Info) Description 09/25/2023 Telephone [facility] 230 [place], [place] [phone] ClarisseHaily [facility] 230 [place], [place] [phone] Med Refill Social History Tobacco Use Types [...] 200 MG/ML injection To be sent to: [facility] - [place], [place] - 230 [facility] documented in this encounter Plan of Treatment Upcoming Encounters Date Type Department Care Team (Late st Contact Info) Description 06/29/2025 1:00 PM EDT Office Visit [facility] [address] [place] [address] Hermes Black, CHAGO 230 [place] [address] 06/29/2025 1:30 PM EDT Office Visit [facility] 230 [place] [address] Hollis Rutledge MD 230 [place] [address] documented as of this encounter Visit Diagnoses Not on filedocumented in this encounter Additional Health Concerns Assessment Noted Time PHQ-9 Depression Total Score: 0 08/15/20 3:52 PM EST documented as of this encounter Care Teams Baker Chef Relationship Specialty Start Date End Date Haily Robb FNP [address] [place] [address] PCP - General Family Medicine 05/01/22 Gregoria Brooks, CHAGO [address] [place] [address] Registered Nurse Family Medicine 06/15/25 Latricia Houser 06/16/25 documented as of this encounter
--- OUTSIDE RECORDS SUMMARY | 2025-06-24 21:48 | XMS_ITS | Clinical Summary ---
Author Organization [employer] Address [address] [facility] [address] [place] [address] Care Team Providers Care Professor Of Business Administration Name Role Phone Clarisse [facility] Primary Care Provider [phone] Gregoria Brooks RN Unavailable [phone] Latricia Houser Unavailable Allergies Active Allergy Reactions Criticality Noted Date [...] Active BD Plastipak Syringe 3 ML misc 024 Active tamsulosin (Flomax) 0.4 MG 24 [...] BD Hypodermic Needle 18G X 1 misc Active rosuvastatin (Crestor) 10 MG tabletIndications :Mixed [...] times daily. 180 capsule 3 2025 Active Diclofenac Sodium 1 % gel [...] gel Use topical BID 100 g 3 025 Active benzocaine-mentho l (Chloraseptic) 6-10 MG lozengeIndication s:Sore throat Dissolve 1 lozenge in the mouth every 2 (two) hours if needed for sore throat. 100 lozenge 025 2025 Active Additional Information Patient not taking.Reported on 06/17/2025 naproxen (Naprosyn) 500 MG tabletIndications :Acute midline [...] daily for 10 days. 30 tablet 025 Active SUMAtriptan (Imitrex) 50 MG tabletIndications :Chronic [...] BEDTIME NEEDED 60 tablet 2 025 Active albuterol (Ventolin HFA) 108 (90 Base) MCG/ACT inhalerIndication s:Wheezing INHALE 2 PUFFS BY MOUTH EVERY 4 HOURS NEEDED FOR WHEEZING OR SHORTNESS OF BREATH 18 g 11 025 Active omeprazole (PriLOSEC) [address] capsuleIndication s:Epigastric pain TAKE 1 CAPSULE BY MOUTH TWICE DAILY BEFORE BREAKFAST 180 capsule 1 Active furosemide (Lasix) 20 MG tabletIndications :Bilateral lower extremity edema TAKE 2 TABLETS BY MOUTH EVERY DAY 180 tablet 1 025 Active ipratropium (Atrovent) 0.03 % nasal sprayIndications: Acute URI Administer 1 spray into each nostril every 12 (twelve) hours. 30 mL 12 025 2025 Active fluticasone (Flonase) 50 MCG/ACT nasal sprayIndications: Seasonal allergies INSTILL 1 SPRAY IN EACH NOSTRIL ONCE DAILY 48 g Active amitriptyline (Elavil) 25 MG tabletIndications :Chronic nonintractable headache, unspecified headache type TAKE 1 TABLET BY MOUTH AT BEDTIME 30 tablet 025 Active polycarbophil (Fibercon) 625 MG tabletIndications :Slow transit constipation Take 1 tablet (625 mg) by mouth 2 times daily. 180 tablet 3 025 2025 Active polyethylene glycol, PEG, 3350 (MiraLax) 17 GM/SCOOP powderIndications :Slow transit constipation Take 17 g by mouth if needed each day (constipation) . 527 g 2 025 2025 Active Acetaminophen 500 MG capsuleIndication s:Acute non intractable tension-type headache Take 1 capsule (500 mg) by mouth [...] tip and replace cap. 16 g 2 2024 Discontinued polycarbophil (Fibercon) 625 MG tablet Take 1 tablet (625 mg) by mouth 2 times daily. 180 tablet 3 2024 Discontinued(R eorder (will not trigger notification to Pharmacy)) polyethylene glycol, PEG, 3350 (MiraLax) 17 GM/SCOOP powder Take 17 g by mouth if needed each day (constipation) . 527 g 2 2024 Discontinued(R eorder (will not trigger notification to Pharmacy)) acetaminophen (Tylenol 8 Hour) 650 MG ER tablet Take 1 tablet (650 mg) by mouth every 8 (eight) hours if needed for mild pain. Do not crush, chew, or split. 60 tablet 2 2024 Discontinued furosemide (Lasix) 20 MG tabletIndications :Bilateral lower extremity edema TAKE 2 TABLETS BY MOUTH EVERY DAY 60 tablet 2 2024 Discontinued simethicone 125 MG capsule Take 1 capsule (125 mg) by mouth if needed in the morning, at noon, in the evening, and at bedtime (abd pain/gas). 30 capsule 1 2024 Discontinued amitriptyline (Elavil) 25 MG tabletIndications :Chronic nonintractable headache, unspecified headache type Take 1 tablet (25 mg) by mouth at bedtime. 30 tablet 2024 Discontinued lactulose (Chronulac) 10 GM/15ML solution Take 15 mL (10 g) by mouth Once per day for 10 days. 473 mL 3 025 2024 Acetaminophen 500 MG capsule Take 1 capsule (500 mg) by mouth every 8 (eight) hours if needed for moderate pain or fever. 30 capsule 025 2024 Discontinued(R eorder (will not trigger notification to Pharmacy)) GAS RELIEF 125 MG capsule TAKE 1 CAPSULE BY MOUTH 4 TIMES A DAY IN THE MORNING, AT NOON, IN THE EVENING, AND AT BEDTIME NEEDED FOR GAS 30 capsule 1 025 2024 Discontinued Active Problems Problem Noted Date Diagnosed Date Acute non intractable tension-type headache 06/04 Palpitations 06/22/2025 Assessment & Plan (06/22/2025 2:52 PM EDT): Patient reports he miss his cardiology appointment and he will reschedule I will re-check his TSH today pulse 77 regular Left lower quadrant abdominal pain 06/22/2025 Assessment & Plan (06/22/2025 2:53 PM EDT): Likely due to constipation It was advise to drink more water and fiber He was encourage to walk more I refilled his fiber and miralax Slow transit constipation 06/22/2025 Assessment & Plan (06/22/2025 2:53 PM EDT): It was advise to drink more water and fiber He was encourage to walk more I refilled his fiber and miralax Chronic bilateral low back pain without sciatica [...] Avoidance of pollen as much as possible. [place] of ophthalmic mast cell stabilizer, nasal steroid and antihistamine. LLQ pain 01/06/2025 Assessment & Plan (01/06/2025 11:25 AM EDT): No evidence of acute abdomen. Chronic. He needs colon cancer screening and has been referred to [facility] in the past. He was encouraged to call in November but did not. We called today to facilitate appointment and give him the number to call. ER precautions discussed. [facility] reports pt has to call himself due to cancelled and did not make follow up. He was given the number [phone]. I stressed the importance of following up [...] any case Continue Carafate Call GI at [facility] for EGD and colonoscopy Eat small frequent [...] 03/2023 Established with therapy and psychiatry at [facility] No rash, fever, chills, lymphadenopathy Odynophagia [...] for anxiety sxs) that comes referred from [facility] for exacerbated anxiety in presence of [...] a good support system through his family, anabaptism and recovery network, as well as having [...] explore potential nerve damage due to terminal worker use of anxiolytics, even though John is on low dose medication. At this time is unclear if crawling/burning sensation on skin is solely due to medical and/or somatic presentation. However, sxs are causing significant psychological distress in patient. John was given information on how to reach out to [facility] team and [facility] numbers for crisis. He was also encouraged to bring current event to team to discuss further coping skills to support wellbeing. Patient was agreeable Opioid dependence in remission (CMS/[facility]) 023 Scrotal pain 02/04/2023 Overview (02/04/2023): saw urology for scrotal pain. PE and u/s negative other than small hydrocele. No fruther eval needed. Tyleno ibu for pain Hypogonadism in male 11/02/2022 Overview (11/02/2022): Followed by [facility]. Lux subcutaneous testosterone injection Assessment [...] of this appointment. His appointment is at [facility] clinic [phone] on January 27 at 11:00 am. He [...] depressive disorder 02/22/2017 Overview (08/05/2023): Followed by [facility] Clonazepam PRN Clonidine PRN Assessment & Plan (11/06/2022 5:05 AM EST): Spoke with [facility] pharmacy-the blue conazepam tablets that patient prefer are from a different workgroup leader and are on back order. Pt will [...] Encounters Date Type Department Care Team Description 06/24/2025 2:40 PM EDT Office Visit [facility] [address] [address] Hollis Rutledge MD Erythema (Primary Dx); Positive QuantiFERON-TB Gold test 06/24/2025 Results Follow-Up [facility] [address] [address] Hollis Rutledge MD XR Chest 2 Views 06/24/2025 Patient Outreach [address] [address] Lino Holder Recovery Supports 06/24/2025 Travel 06/24/[address] [address] Hermes Black, RN OBAT Communication 06/24/[address] [address] Haily Robb FNP Results 06/23/2025 Patient Outreach [address] [address] Haily Robb FNP Care Management (C3CM- FOLLOW UP CALL ) 06/23/2025 Refill [facility] [address] [address] Roxana Gotti DO 06/22/2025 1:20 PM EDT Office Visit [address] [address] Sanam Noland MD Acute non intractable tension-type headache; Palpitations; Left lower quadrant abdominal pain; Slow transit constipation 06/18/2025 Plan of Care Documentation [address] [address] 06/18/2025 Patient Outreach [address] [phone] Haily Robb FNP Care Coordination 06/17/2025 Plan of Care Documentation [address] [address] 06/17/2025 Patient Outreach [address] [address] Haily Robb FNP Care Management (C3 COMPLEX INITIAL ASSESSMENT/ ENROLLMENT-/) 06/16/2025 Patient Outreach [address] [address] Haily Robb FNP Care Coordination (C3 -[facility] Latricia Houser telephone call outreach) 06/16/2025 Patient Outreach [address] [address] Haily Robb FNP Care Coordination (C3 -[facility] Latricia Houser chart review) 06/16/2025 Patient Outreach [address] [address] Haily Robb FNP Care Management ([facility] -CHART REVIEW ) 06/15/2025 Patient Outreach [address] [address] Haily Robb FNP 06/13/2025 Orders Only GENERIC EXTERNAL DATA DEPARTMENT Provider, Generic External Data 06/10/2025 2:00 PM EDT Office Visit [address] [address] Haily Robb [facility] Somatic symptom disorder, persistent, moderate (Primary Dx); Latent tuberculosis; Encounter for immunization 06/10/2025 Travel 06/09/[address] [address] Haily Robb [facility] 06/04/[address] [address] PiedmontHaily molina [facility] 06/04/2025 Refill [facility] [address] [place] [address] Elda Love MD Seasonal allergies; Chronic nonintractable headache, unspecified headache type 06/03/[address] [address] PiedmontHaily molina, NURSE ADVISOR Epigastric pain 06/03/2025 Refill [facility] [address] [place] [address] Roxana Gotti DO 06/03/2025 Patient Outreach [facility] [address] [place] [address] PiedmontHaily molina, NURSE ADVISOR Pre-visit Planning (SDOH screening negative and tobacco screening negative) 06/03/2025 Refill [facility] [address] [place] [address] PiedmontHaily, NURSE ADVISOR Restless leg 06/02/2025 3:40 PM EDT Office Visit [facility] [address] [address] Elda Love MD Acute URI (Primary Dx) 06/02/2025 Travel 05/31/2025 Refill [facility] [address] [address] PiedmontHaily, NURSE ADVISOR Restless leg 05/27/2025 Refill [facility] [address] [place] [address] Jana Morgan MD Bilateral lower extremity edema 05/19/2025 Orders Only [address] [address] Sanam Noland MD Chronic bilateral low back pain without sciatica (Primary Dx) 05/19/[address] [address] P[place]montHaily, NURSE ADVISOR Med Refill 05/15/2025 10:00 AM EDT Office Visit [facility] [address] [place] [phone] Collins Reyes MD Bloating (Primary Dx); Drug-induced constipation; Concern about diabetes mellitus without diagnosis 05/15/2025 Travel 05/14/2025 Refill [facility] [address] [place] [address] Roxana Gotti DO Epigastric pain 05/12/2025 9:20 AM EDT Office Visit [facility] [address] [place] [address] Elda Love MD Chronic nonintractable headache, unspecified headache type 05/12/2025 Travel 05/08/2025 Telephone [facility] [address] [place], [place] [address]k[place] [address] [facility], [facility] Referral 05/05/2025 Telephone [facility] [address] [place] [address] [facility] Jun/jul recall 05/04/2025 Refill [facility] [address] [address] [facility] Wheezing 05/02/2025 Refill [facility] [address] [place] [address] [facility] Mixed anxiety and depressive disorder; Wheezing 04/29/2025 Orders Only GENERIC EXTERNAL DATA DEPARTMENT Provider, Generic External Data 04/27/2025 1:40 PM EDT Office Visit [facility] [address] [address] Sanam Noland MD Chronic bilateral low back pain without sciatica (Primary Dx); Chronic nonintractable headache, unspecified headache type 04/27/2025 Travel 04/21/2025 10:20 AM EDT Office Visit [facility] [address] [address] Collins Reyes MD Chronic nonintractable headache, unspecified headache type (Primary Dx) 04/21/2025 Travel 04/06/2025 Refill [facility] [address] [place] [address] Gema Gar FNP Stasis dermatitis 04/05/2025 Orders Only GENERIC EXTERNAL DATA DEPARTMENT Provider, Generic External Data 04/04/2025 10:20 AM EDT Office Visit [facility] [address] [address] Francy Jennings MD Benign prostatic hyperplasia with urinary frequency (Primary Dx); Drug-induced constipation; Hypogonadism in male 04/04/2025 Travel 03/30/2025 2:45 PM EDT Office Visit [facility] [address] [place] [address] Clarisse ANETA Johansen Peripheral vascular disease (CMS/HCC) (Primary Dx) 03/30/2025 Travel 03/26/2025 Telephone [facility] [address] [place] [address] Clarisse ANETA Johansen chart prep from Last 3 Months Immunizations Immunization Administration [...] with others, in a hotel, in a alf, living outside on the street, on a [...] 20 06/24/2025 2:44 PM EDT Oxygen Saturation 99% 06/02/2025 1:53 PM EDT room air Inhaled Oxygen Concentration - - Weight 62.4 kg (137 lb 9.6 oz) 06/24/2025 2:44 P M EDT Height 172.7 cm (5' 8 ) 06/24/2025 2:44 PM EDT Body Mass Index 20.92 06/24/2025 2:44 PM EDT Plan of Treatment Upcoming Encounters Date Type Department Care Team (Late st Contact Info) Description 06/29/2025 1:00 PM EDT Office Visit [facility] [address] [place] [address] Hermes Black, RN [address] [place] [address] 06/29/2025 1:30 PM EDT Office Visit [facility] [address] [place] [address] Hollis Rutledge MD [address] [place] [address] Health Maintenance Due Date Last Done Comments CT Colonography 1970 Colonoscopy 1970 Colorectal Cancer Screening 1970 FIT DNA/Cologuard 1970 FIT 1970 FOBT 1970 Sigmoidoscopy 1970 Hepatitis B Vaccines (2 of 2 - CpG 2-dose series) 12/14/2022 11/16/2022 Zoster Vaccines (2 of 2) 01/11/2023 11/16/2022 Dental X-Ray: Bitewings 06/26/2024 06/25/2023 Dental Oral Exam 04/22/2025 10/22/2024, , 06/01/2022 Dental Prophylaxis 04/22/2025 10/22/2024, 0 04/17/2024, 06/25/2023, Additional history exists COVID-19 Vaccine ( season) 2025 04/27/2022, 04/27/2022, 08/16/2021, Additional history exists Influenza Vaccine (#1) 2025 Disability Screening 03/11/2026 03/11/2025 Diabetes: Hemoglobin A1C 05/15/2026 025, 01/06/2025, 06/20/2024, Additional history exists SDOH Screening 06/16/2026 06/16/2025 Alcohol/Substance Use Screening 06/17/2026 06/17/2025 Depression Screening 06/17/2026 06/17/2025, 06/17/20 Tobacco Screening 06/24/2026 06/24/2025 Dental X-Ray: Full Mouth 09/12/2026 09/11/2023, 06/04 Lipid Panel 03/19/2029 03/19/2024, 02/02, 11/06/2022, Additional history exists DTaP/Tdap/Td Vaccines (2 - Td or Tdap) 06/10/2035 06/10/2025 RSV Patients and Patients Aged 60 years or older (1 - 1-dose 75+ series) 2043 HIV Screening Completed 03/22/2023, 0302/2023, 05/05/2021, Additional history exists Pneumococcal Vaccine: 50+ [...] 4:04 PM EDT Positive QuantiFERON-TB Gold test TSH W/REFLEX TO FT4 Routine 06/22/2025 2 :19 PM EDT Palpitations COVID-19 ID NOW ([facility]) Routine 06/13/2025 3:10 PM EDT COVID-19 ID NOW ([facility]) Routine 06/13/2025 2:15 PM EDT INFLUENZA A B2 ID NOW ([facility]) Routine 06/13/2025 2:15 PM EDT XR KUB AND UPRIGHT 2 VIEWS Routine 06/13/2025 1:48 PM EDT URINALYSIS WITH REFLEX MICROSCOPIC Routine 06/13/2025 12:33 PM EDT HIGH SENSITIVITY TROPONIN I Routine 06/13/2025 12:28 PM EDT CBC WITH AUTO DIFFERENTIAL Routine 06/13/2025 12:28 PM EDT LIPASE Routine 06/13/2025 12:28 PM EDT MAGNESIUM Routine 06/13/2025 12:28 PM EDT COMPREHENSIVE METABOLIC PANEL Routine 06/13/2025 12:28 PM EDT POCT GLYCATED HEMOGLOBIN, TOTAL Routine 05/15/2025 10:34 [...] to Health Maintenance Results * XR Chest 2 Views (06/24/2025 4:04 PM EDT) Anatomical Region Laterality Modality Chest Radiographic Cecelia ging 06/24/2025 4:04 PM EDT Narrative 06/24/2025 4:11 PM EDT [address] [address] XRay Report Signed Patient: John Fitzpatrick MR#: [id number] : 1970 Acct:[id number] Age/Sex: 55 / M ADM Date: 06/24/25 Loc: HO.HHCX Attending Dr: Hollis Rutledge MD Ordering Physician: HOLLIS RUTLEDGE MD Date of Service: 06/24/25 Procedure(s): XR chest 2V Accession Number(s): [id number] cc: HOLLIS RUTLEDGE MD Reason for Exam: [...] Witt MD in OV> 06/24/25 1608 DD/ 160 TD/TT: 06/24/251603 Seismology Technical Officer: Procedure Note Donotuseinterpreter, Image - 06/24/[address] [address] XRay Report Signed Patient: John Fitzpatrick AMR#: [id number] : 1970Acct:[id number] Age/Sex: 55 / MADM Date: 06/24/25 Loc: HO.HHCX Attending Dr: Hollis Rutledge MD Ordering Physician: HOLLIS RUTLEDGE MD Date of Service: 06/24/25 Procedure(s): XR chest 2V Accession Number(s): [id number] cc: HOLLIS RUTLEDGE MD Reason for Exam: [...] in OV> 06/24/25 1608 DD/ 1604 TD/TT: 06/24/251603 Seismology Technical Officer: Hollis Rutledge MD IMG XR PROCEDURES Final Result * TSH W/Reflex to FT4 (06/22/2025 2:19 PM EDT) TSH reflex Free T4 1.82 0.32 - 4.0 uIU/mL [facility] Blood Venous blood specimen / Unknown 06/22/2025 2:19 PM EDT 06/22/2025 3:58 PM EDT Sanam Peacock MD LAB BLOOD ORDERABLES Final Result [facility] [address] [place] [address] [phone] * COVID-19 ID NOW (Culture Machine) (06/13/2025 3:10 PM EDT) Only the most recent of2 resultswithin the time period is included. IDNOW SERIAL# [id number] [facility] COVID-19 TEST Negative Negative [facility] COVID-19 NOTE See Note [facility] Comment: Results are for the identification of SARS-CoV2 RNA. TheSARS-CoV2 RNA is generally detectable in respiratory samplesduring the acute phase of infection. Positive results areindicative of the presence of SARS-CoV-2 RNA; clinicalcorrelation with patient history and other diagnosticinformation is necessary to determine patient infectionstatus. Positive results do not rule out bacterial infectionor co- infection with other viruses.Testing facilities within the [facility] and [facility] are required to report all positive results tothe appropriate public health authorities.Negative results should be treated as presumptive and, ifinconsistent with clinical signs and symptoms or necessaryfor patient management, should be tested with differentauthorized or cleared molecular tests. Negative results donot preclude SARS-CoV2 RNA infection and should not be usedas the sole basis for patient management decisions. Negativeresults should be considered in the context of a patient'srecent exposures, history and the presence of clinical signsand symptoms consistent with COVID-19.This test has been authorized by the FDA under an EmergencyUse Authorization (EUA) for use by authorized laboratories.Testing performed on the [employer] ID NOW utilizing NAAT. 06/13/2025 3:10 PM EDT 06/13/2025 3:15 PM EDT Generic External Data Provider LAB MOLECULAR KATIUSKA GNOSTICS ORDERABLES Final Result Performing Organization Address [facility] de Phone Number [facility] [address] [place] [phone] * Influenza A B2 ID NOW (Lemon) (06/13/2025 2:15 PM EDT) IDNOW SERIAL# [id number] [facility] Influenza A Negative Negative [facility] Influenza B2 Negative Negative [facility] Influenza A B2 Note See Note [facility] Comment:The Lemon ID NOW In fluenza A B2 test is used for thequalitative detection of influenza A and B from patientswith signs and symptoms of respiratory infection.Negative results do not preclude influenza virus infectionand should not be used as the sole basis for diagnosis,treatment or other patient management decisions.There is a risk of false negative results due to thepresence of variants in the viral targets of the assay, lowlevels of virus in the specimen and co- infection withRespiratory Syncytial Virus. 06/13/2025 2:15 PM EDT 06/13/2025 2:22 PM EDT Generic External Data Provider LAB MICROBIOLOGY - GENERAL ORDERABLES Final Result Performing Organization Address [facility] de Phone Number [facility] [address] [place] [phone] * XR KUB and Upright 2 Views (06/13/2025 1:48 PM EDT) Anatomical Region Laterality Modality Radiographic Cecelia ging 06/13/2025 1:48 PM EDT Narrative 06/13/2025 1:50 PM EDT [address] [address] XRay Report Signed Patient: John Fitzpatrick MR#: [id number] : 1970 Acct:[id number] Age/Sex: 55 / M ADM Date: 06/13/25 Loc: HO.ED Attending Dr: Ordering Physician: Fay Rosales Date of Service: 06/13/25 Procedure(s): XR KUB Accession Number(s): [id number] cc: Fay Rosales; [facility] Reason for Exam: constipation CLINICAL HISTORY: constipation 1 view abdomen Comparison: 03/01/2025 Findings: Normal bowel gas pattern. No abnormal calcifications. No obvious pneumoperitoneum or pneumatosis. No acute fractures Impression: A moderate amount of retained stool is present throughout the colon. The pattern is nonobstructed. This document has been electronically signed by: Kb Andrade MD on 06/13/2025 13:48:34 Dictated By: Kb Andrade MD Signed By: <Electronically signed by Kb Andrade MD in OV> 06/13/25 1349 DD/ 1348 TD/TT: 06/13/25 1348 Seismology Technical Officer: Procedure Note Donotuseinterpreter, Image - 06/13/2025 [place] [address] XRay Report Signed Patient: John Fitzpatrick AMR#: [id number] : 1970Acct:[id number] Age/Sex: 55 / MADM Date: 06/13/25 Loc: HO.ED Attending Dr: Ordering Physician: Fay Rosales Date of Service: 06/13/25 Procedure(s): XR KUB Accession Number(s): [id number] cc: Fay Rosales; [facility] Reason for Exam: constipation CLINICAL HISTORY: constipation 1 view abdomen Comparison: 03/01/2025 Findings: Normal bowel gas pattern. No abnormal calcifications. No obvious pneumoperitoneum or pneumatosis. No acute fractures Impression: A moderate amount of retained stool is present throughout the colon. The pattern is nonobstructed. This document has been electronically signed by: Kb Andrade MD on 06/13/2025 13:48:34 Dictated By: Kb Andrade MD Signed By: <Electronically signed by Kb Andrade MD in OV> 06/13/25 1349 DD/ 1348 TD/TT: 06/13/25 1348 Seismology Technical Officer: [facility] External Provider IMG XR PROCEDURES Final Result * Urinalysis w/reflex microscopic (06/13/2025 12:33 PM EDT) Color Urine Yellow [facility] Appearance Urine Clear [facility] PH 8.5 5.0 - 9.0 [facility] Glucose Urine UA Negative Negative mg/dL [facility] Urine Blood Negative Negative [facility] Specific [place] - Urine 1.020 1.005 - 1.025 [facility] Urine Protein Negative Neg-Trace mg/dL [facility] Urine Ketones Negative Negative mg/dL [facility] Nitrite Urine Negative Negative [facility] Leukocyte Esterase Urine Negative Negative [facility] LABS 06/13/2025 12:3 3 PM EDT 06/13/2025 12:37 PM EDT Narrative [facility] - 06/13/2025 1:25 PM EDT [id number], Clean Catch Generic External Data Provider LAB URINE ORDERAB LES Final Result [facility] [address] [place] [phone] * High Sensitivity Troponin I (06/13/2025 12:28 PM EDT) Only the most recent of2 resultswithin the time period is included. TROPONIN I HIGH SENSITIVITY <2.7 <3.5 - 35.0 ng/L [facility] Comment:The Lemon high sens itivity Troponin-I results should beused in conjunction with other diagnostic information suchas ECG, clinical observations and information, and patientsymptoms to aid in the diagnosis of [place]. 06/13/2025 12:2 8 PM EDT 06/13/2025 12:31 PM EDT us Generic External Data Provider LAB BLOOD ORDERAB LES Final Result [facility] [address], [place] [phone] * (ABNORMAL) CBC auto differential (06/13/2025 12:28 PM EDT) Only the most recent of3 resultswithin the time period is included. White Blood Count 7.2 4.8 - 10.8 X10*3/uL [facility] Red Blood Count 4.33(L) 4.60 - 5.80 X10*6/uL [facility] Hemoglobin 14.0 14.0 - 18.0 g/dl [facility] Hematocrit 42.0 42.0 - 52.0 % [facility] Mean Corpuscular Volume 97.0 80.0 - 98.0 fL [facility] Mean Corpuscular Hemoglobin 32.3 27.0 - 33.0 pg [facility] Mean Corpuscular HGB Conc 33.3 31.0 - 36.0 g/dl [facility] Red Cell Distribution Width 13.1 11.0 - 16.0 % [facility] Platelet Count 201 160 - 400 X10*3/uL [facility] Mean Platelet Volume 11.1 9.4 - 12.4 fL [facility] Neutrophils Percent Auto 76.2(H) 45 - 73 % [facility] Imm Gran Pct Auto 0.3 0.0 - 0.4 % [facility] Lymphocytes Percent Auto 15.9(L) 20 - 40 % [facility] Monocytes Percent Auto 5.8 2 - 11 % [facility] Eosinophils Percent Auto 1.1 0 - 4 % [facility] Basophils Percent Auto 0.7 0 - 2 % [facility] NRBC Pct Auto 0.0 0.0 - 0.2 /100WBC [facility] Neutrophils Absolute Auto 5.5 2.0 - 8.3 x10*3/uL [facility] Imm Gran Abs Auto 0.02 0.00 - 0.03 X10*3/uL [facility] Lymphocytes Absolute Auto 1.2 1.2 - 4.9 X10*3/uL [facility] Monocytes Absolute Auto 0.4 0.1 - 1.2 X10*3/uL [facility] Eosinophils Absolute Auto 0.1 0.0 - 0.4 X10*3/uL [facility] Basophils Absolute Auto 0.1 0.0 - 0.2 X10*3/uL [facility] NRBC Abs Auto 0.000 0.0 - 0.012 X10*3/uL [facility] 06/13/2025 12:2 8 PM EDT 06/13/2025 12:31 PM EDT Generic External Data Provider LAB BLOOD ORDERAB LES Final Result Performing Organization Address City/[facility]/ZIP Co de Phone Number [facility] [address] [place] [address] [phone] * Magnesium (06/13/2025 12:28 PM EDT) Magnesium 1.9 1.6 - 2.6 mg/dL [facility] 06/13/2025 12:2 8 PM EDT 06/13/2025 12:31 PM EDT Generic External Data Provider LAB BLOOD ORDERAB LES Final Result Performing Organization Address City/[facility]/ZIP Co de Phone Number [facility] [address] [place] [address] [phone] * Lipase (06/13/2025 12:28 PM EDT) Only the most recent of2 resultswithin the time period is included. Lipase 19 8 - 78 U/L [facility] 06/13/2025 12:2 8 PM EDT 06/13/2025 12:31 PM EDT us Generic External Data Provider LAB BLOOD ORDERAB LES Final Result [facility] [address] [place] [address] [phone] * (ABNORMAL) Comprehensive Metabolic Panel (06/13/2025 12:28 PM EDT) Only the most recent of2 resultswithin the time period is included. Sodium 138 135 - 145 mmol/L [facility] Potassium 4.3 3.3 - 5.1 mmol/L [facility] Chloride 102 96 - 108 mmol/L [facility] Carbon Dioxide 31(H) 22 - 29 mmol/L [facility] Anion Gap 9(L) 12 - 20 [facility] Urea Nitrogen (BUN) 14 9 - 16 mg/dL [facility] Creatinine, Serum 0.99 0.5 - 1.4 mg/dL [facility] Creatinine Clr Calc Pharmacy 70.4 [facility] Comment:eGFR (calculated fro m the MDRD study equation) and eCrCl(calculated from the Cockcroft-Gault equation) are based ondifferent parameters and may not yield comparable results.If eCrCl result is absurd, please check patient'sheight/weight. Estimated Glomerular Filt Rate >60 [facility] Comment:Chronic Kidney Disea se: Estimated GFR < 60 mL/min/1.89l2Yenpls Kidney Disease: Estimated GFR < 15 mL/min/1.73m2 Glucose 100 60 - 115 mg/dL [facility] Calcium 9.5 8.4 - 10.2 mg/dL [facility] Bilirubin, Total 1.5(H) 0.0 - 1.0 mg/dL [facility] Aspartate Amino Transferase 24 5 - 37 U/L [facility] Alanine Aminotransferase 18 0 - 40 U/L [facility] Total Protein 7.5 6.5 - 8.0 g/dL [facility] Albumin Level 4.9 3.5 - 5.0 g/dL [facility] Alkaline Phosphatase 50 39 - 117 U/L [facility] 06/13/2025 12:2 8 PM EDT 06/13/2025 12:31 PM EDT Generic External Data Provider LAB BLOOD ORDERAB LES Final Result [facility] [address] [place] [phone] * (ABNORMAL) POCT Hgb A1c (05/15/2025 10:34 AM EDT) Hemoglobin A1C 5.8(A) 4.0 - 5.7 % QC Media Lot # [id number] Lot# Expiration Date Blood 05/15/2025 10:3 4 AM EDT Collins Name POINT OF CARE TEST ENTER/EDIT OR DERABLES Final Result * POCT Glucose (05/15/2025 10:34 AM EDT) Glucose Blood, POC 144 60 - 200 mg/dL QC Media Lot # [id number] Lot# Expiration Date [id number] Blood Capillary blood specimen / Unknown 05/15/2025 10:34 AM EDT Collins Name POINT OF CARE TEST ENTER/EDIT OR DERABLES Final Result * CT Head w/o Contrast (04/29/2025 11:32 AM EDT) Anatomical Region Laterality Modality Head, Neck Computed Tomogra phy 04/29/2025 11:3 2 AM EDT Narrative 04/29/2025 12:15 PM EDT [address] [address] [address] Scan Report Signed Patient: John Fitzpatrick MR#: [id number] : 1970 Acct:[id number] Age/Sex: 55 / M ADM Date: 04/29/25 Loc: HO.ED Attending Dr: Ordering Physician: Erik Montano DO Date of Service: 04/29/25 Procedure(s): CT head/brain wo IV con Accession Number(s): [id number] cc: Erik Montano DO; [facility] Report Number: [id number]: Total DLP = 672.00 mGy-cm EXAMINATION: CT [...] 04/29/25 1212 DD/ 1132 TD/TT: 04/29/25 1205 Seismology Technical Officer: Procedure Note Donotuseinterpreter, Image - 04/29/[address] [address] [address] Scan Report Signed Patient: John Fitzpatrick AMR#: [id number] : 1970Acct:[id number] Age/Sex: 55 / MADM Date: 04/29/25 Loc: HO.ED Attending Dr: Ordering Physician: Erik Montano DO Date of Service: 04/29/25 Procedure(s): CT head/brain wo IV con Accession Number(s): [id number] cc: Erik Montano DO; [facility] NURSE ADVISOR Report Number: [id number]: Total DLP = 672.00 mGy-cm EXAMINATION: CT [...] 04/29/25 1212 DD/ 1132 TD/TT: 04/29/25 1205 Seismology Technical Officer: [facility] External Provider IMG CT PROCEDURES Final Result * XR Chest 1 View (04/29/2025 9:59 AM EDT) Anatomical Region Laterality Modality Chest Radiographic Cecelia ging 04/29/2025 9:59 AM EDT Narrative 04/29/2025 11:06 AM EDT [address] [address] XRay Report Signed Patient: John Fitzpatrick MR#: [id number] : 1970 Acct:[id number] Age/Sex: 55 / M ADM Date: 04/29/25 Loc: HO.ED Attending Dr: Ordering Physician: Generic ED Physician Date of Service: 04/29/25 Procedure(s): XR chest 1V Accession Number(s): [id number] cc: Generic ED Physician; [facility] NURSE ADVISOR EXAMINATION: XR CHEST CLINICAL INFORMATION: chest pain [...] 04/29/25 1102 DD/ 0959 TD/TT: 04/29/25 1055 Seismology Technical Officer: Procedure Note Donotuseinterpreter, Image - 04/29/[address] [address] XRay Report Signed Patient: John Fitzpatrick AMR#: [id number] : 1970Acct:[id number] Age/Sex: 55 / MADM Date: 04/29/25 Loc: HO.ED Attending Dr: Ordering Physician: Generic ED Physician Date of Service: 04/29/25 Procedure(s): XR chest 1V Accession Number(s): [id number] cc: Generic ED Physician; Haily Robb NURSE ADVISOR EXAMINATION: XR CHEST CLINICAL INFORMATION: chest pain [...] 04/29/25 1102 DD/ 0959 TD/TT: 04/29/25 1055 Seismology Technical Officer: [facility] External Provider IMG XR PROCEDURES Edited Result - Final * (ABNORMAL) Basic Metabolic Panel (04/29/2025 9:58 AM EDT) Sodium 141 135 - 145 mmol/L [facility] Potassium 4.5 3.3 - 5.1 mmol/L [facility] Chloride 102 96 - 108 mmol/L [facility] Carbon Dioxide 33(H) 22 - 29 mmol/L [facility] Anion Gap 11(L) 12 - 20 [facility] Urea Nitrogen (BUN) 9 9 - 16 mg/dL [facility] Creatinine, Serum 0.91 0.5 - 1.4 mg/dL [facility] Creatinine Clr Calc Pharmacy 75.5 [facility] Comment:eGFR (calculated fro m the MDRD study equation) and eCrCl(calculated from the Cockcroft-Gault equation) are based ondifferent parameters and may not yield comparable results.If eCrCl result is absurd, please check patient'sheight/weight. Estimated Glomerular Filt Rate >60 [facility] Comment:Chronic Kidney Disea se: Estimated GFR < 60 mL/min/1.74i4Trpqej Kidney Disease: Estimated GFR < 15 mL/min/1.73m2 Glucose 99 60 - 115 mg/dL [facility] Calcium 9.3 8.4 - 10.2 mg/dL [facility] 04/29/2025 9:5 8 AM EDT 04/29/2025 10:01 AM EDT us Generic External Data Provider LAB BLOOD ORDERAB LES Final Result Performing Organization Address [facility] Co de Phone Number [facility] [address] [place] [phone] * POCT Urinalysis (04/04/2025 10:43 AM [...] 53,126 Urine 04/04/2025 10:4 3 AM EDT us Francy Jennings MD POINT OF CARE TEST ENTER /EDIT ORDERABLES Final Result * Hepatitis C Antibody with Reflex to HCV, RNA, Quantitative, Real-Time PCR (01/06/2025 10:11 AM EDT) Hepatitis C Antibody Nonreactive Nonreactive [facility] Comment:Antibodies to HCV no t detected; does not exclude early acuteHCV infection. Blood Venous blood specimen / Unknown 01/06/2025 10:11 AM EDT 01/06/2025 11:07 AM EDT us Hoa Dueñas CIVIL ENGINEER'S AIDE LAB BLOOD ORDERABLES Final Resul t Performing Organization Address City/[facility]/ZIP Co de Phone Number [facility] [address] [place] [phone] * Lipid Panel, Standard (03/19/2024 9:34 AM EDT) Triglycerides 66 <150 mg/dL [facility] Comment:Desirable Triglyceri de: less than 150 mg/dLBorderline High Triglyceride 150-199 mg/dLHigh Triglyceride: 200-499 mg/dLVery High Triglyceride: greater than or equal to 5OO mg/dL Cholesterol 112 <200 mg/dL [facility] Comment:Desirable Cholestero l: less than 200 mg/dLBorderline High Cholesterol: 200-239 mg/dLHigh Cholesterol: greater than 239 mg/dL LDL Cholesterol Calculated 58 <100 mg/dL [facility] Comment:Desirable LDL: less than 100 mg/dLNear Optimal/Above Optimal LDL: 110- 129 mg/dLBorderline High LDL: 130-159 mg/dLHigh LDL: 160-189 mg/dLVery High LDL: greater than or equal to 190 mg/dL HDL Cholesterol 41 >40 mg/dL [facility] Comment:Desirable HDL: great er than 40 mg/dL Note: This HDL assay may give artificially low results in patients with liver disease. Blood Venous blood specimen / Unknown 03/19/2024 9:34 AM EDT 03/19/2024 11:12 AM EDT Roxana Gotti DO LAB BLOOD ORDERABLES Final R esult [facility] [address] [place] [phone] * HIV-1 RNA, Quantitative, Real-Time PCR (03/22/2023 11:53 AM EDT) HIV RNA PCR Qn Copies NOT DETECTED NOT DETECTED copies/mL [facility] HIV RNA PCR Qn Log Copies NOT DETECTED NOT DETECTED [facility] Comment:Result Units: Log co pies/mLThis test was performed using Real-Time Polymerase ChainReaction.Reportable Range: 20 copies/mL to 10,000,000 copies/mL(1.30 log copies/mL to 7.00 log copies/mL).THIS TEST WAS PERFORMED AT:[email or web address] [place] [id number] GONG MD Blood Venous blood specimen / Unknown 03/22/2023 11:53 AM EDT 03/22/2023 1:32 PM EDT Jessica Guillen NURSE ADVISOR LAB BLOOD ORDERABLES Final Res ult [facility] [address] [place] [address] [phone] from Last 3 Months or Most Recently Relevant to Health Maintenance Insurance [facility] C3 DENTAL-[facility] MEDICAID STAND ADULT Care Teams Professor Of Business Administration Relationship Specialty Start Date End Date Clarisse, Haily [facility] [address] [place] [address] PCP - General Family Medicine 05/01/22 Gregoria Brooks, CHAGO [address] [place] [address] Registered Nurse Family Medicine 06/15/25 Latricia Houser 06/16/25
--- OUTSIDE RECORDS SUMMARY | 2025-06-24 21:48 | XMS_ITS | Encounter Summary ---
Author Organization [employer] Address [address] [facility] [address] [place] [address] Care Team Providers Care Benefit Specialist Name Role Phone Haily Robb SIGN LANGUAGE TEACHER Primary Care Provider [phone] Gregoria Brooks RN Unavailable [phone] Latricia Houser Unavailable Reason for Visit * Reason Comments Med Refill Encounter Details Date Type Department Care Team (Late st Contact Info) Description 06/23/2025 Refill [facility] [address] [place], [place] [phone] Roxana Gotti DO [address] [place], [place] [phone] Social History Tobacco Use Types Packs/Day Years [...] Description 06/29/2025 1:00 PM EDT Office Visit [facility] MEDICINE [address] [place] [phone] Hermes Black RN [address] [place] [phone] 06/29/2025 1:30 PM EDT Office Visit [facility] MEDICINE [address] [place] [address] Hollis Rutledge MD [address] [place] [address] documented as of this encounter Goals Goal Patient Goal Type Associated Problems Recent Progress Patient-Stated? Author Patient will adhere to medication regimen General No Mary Moreland documented as of this encounter Visit Diagnoses Not on filedocumented in this encounter Additional Health Concerns Assessment Noted Time PHQ-9 Depression Total Score: 8 06/17/20 11:48 AM EDT documented as of this encounter Care Teams Benefit Specialist Relationship Specialty Start Date End Date DecaturHaily FNP [address] [place] [address] PCP - General Family Medicine 05/01/22 Gregoria Brooks RN [address] [place] [address] Registered Nurse Family Medicine 06/15/25 Latricia Houser 06/16/25 documented as of this encounter
--- OUTSIDE RECORDS SUMMARY | 2025-06-24 21:48 | XMS_ITS | Encounter Summary ---
Author Organization [employer] Address [address] [facility] [address] 7[address] [place] [address] Care Team Providers Care Garbage Truck Dispatcher Name Role Phone Clarisse [facility] Primary Care Provider [phone] Gregoria Brooks RN Unavailable [phone] Latricia Houser Unavailable Reason for Visit * Reason Comments Med Refill Encounter Details Date Type Department Care Team (Late st Contact Info) Description 07/08/2024 Refill [facility] MED[facility]INE [address] [place], [place] [phone] [place] Haily [facility] [address] [place], [place] [phone] Mixed anxiety and depressive disorder Social History [...] Upcoming Encounters Date Type Department Care Team ([facility] st Contact Info) Description 06/29/2025 1:00 PM EDT Office Visit [facility] MEDICINE [address] [place] [phone] Hermes Black RN [address] [place] [phone] 06/29/2025 1:30 PM EDT Office Visit [facility] MED[facility]INE [address] [place] [phone] Hollis Rutledge MD [address] [place] [address] documented as of this encounter Goals Goal [...] documented as of this encounter Care Teams Garbage Truck Dispatcher Relationship Specialty Start Date End Date Haily RobbANETA [address] [place] [address] PCP - General Family Medicine 05/01/22 Gregoria Brooks, CHAGO [address] [place] [address] Registered Nurse Family Medicine 06/15/25 Latricia Houser 06/16/25 documented as of this encounter
--- OUTSIDE RECORDS SUMMARY | 2025-06-24 21:48 | XMS_ITS | Encounter Summary ---
Author Organization [employer] Address [address] [facility] 7t [place] [address] Care Team Providers Care Staple Cutter Name Role Phone Haily Robb BAG PRESS OPERATOR Primary Care Provider [phone] Gregoria Brooks RN Unavailable [phone] Latricia Houser Unavailable Reason for Visit * Reason Comments Med Refill Encounter Details Date Type Department Care Team (Late st Contact Info) Description 10/29/2023 Refill [facility] WALK-IN CENTER [address] [place], [place] [phone] Name, MD Collins [address] [place], [place] [phone] Chronic neck pain Social History Tobacco Use [...] Description 06/29/2025 1:00 PM EDT Office Visit [facility] MEDICINE [address] [place] [phone] Hermes Black RN [address] [place] [address] 06/29/2025 1:30 PM EDT Office Visit [facility] MEDICINE [address] [place] [phone] Hollis Rutledge MD [address] [place] [phone] documented as of this encounter Visit Diagnoses Diagnosis Chronic neck pain Cervicalgia documented in this encounter Additional Health Concerns Assessment Noted Time PHQ-9 Depression Total Score: 0 08/15/20 23 3:52 PM EST documented as of this encounter Care Teams Staple Cutter Relationship Specialty Start Date End Date Haily Robb FNP [address] [place] [address] PCP - General Family Medicine 05/01/22 Gregoria Brooks RN [address] [place] [address] DENIS Krueger [address] Registered Nurse Family Medicine 06/15/25 Latricia Houser 06/16/25 documented as of this encounter
--- OUTSIDE RECORDS SUMMARY | 2025-06-24 21:48 | XMS_ITS ---
Author Organization [employer] Address [address] [facility] 7t [place] [address] Care Team Providers Care Tufting Supervisor Name Role Phone [facility] Primary Care Provider [phone] Gregoria Brooks RN Unavailable [phone] Latricia Houser Unavailable CM Complex Status:Enrolled (Active) Start date:06/15/2025 Enrollment date:06/17/2025 Enrollment reason:Referred by provider Overview Provider Referral- Patient needs assistance with getting reconnected with the [facility] Adult Day program. Case Team Name Relationship Phone Gregoria Brooks RN(Responsible Staff) Registered Nurse Continued Care and Services Coordination
--- OUTSIDE RECORDS SUMMARY | 2025-06-24 21:48 | XMS_ITS | Encounter Summary ---
Author Organization [employer] Address [address] [facility] 7t [place] [address] Care Team Providers Care Implementation Specialist Name Role Phone [facility] Primary Care Provider Gregoria Brooks RN Unavailable [phone] Latricia Houser Unavailable Reason for Visit * Reason Comments Med Refill Encounter Details Date Type Department Care Team (Late st Contact Info) Description 09/05/2022 Telephone [facility] [address] [place], [place] [phone] [facility] [address] [place] [address] Med Refill Social History Tobacco Use Types [...] - 09/06/2022 8:18 AM EST TC via P/I#[id number], explained to pt that his Clonazepam was prescribed from his psychiatric providerat [address] [facility] Mi Krueger. Provided pt the phone number for the [facility] site and encouraged him to call them for all refills of his Clonazepam. Pt thanked teletypewriter installer and said he understood. * Telephone Encounter - Yessi Cannon RN - 09/05/2022 3:04 PM EST Note on 08/02/22: Medication request:CLONAZEPAM Last visit 06/27/22. You sent a refill in June, it was picked up 07/12/22. He was originally getting this elsewhere. Not sure what you'd like to do. If you'll now be prescribing, then would you like him on HARDNESS TESTER? documented in this encounter Plan of Treatment Upcoming Encounters Date Type Department Care Team (Late st Contact Info) Description 06/29/2025 1:00 PM EDT Office Visit [facility] [address] [place] [phone] Hermes Black RN [address] [place] [phone] 06/29/2025 1:30 PM EDT Office Visit [facility] [address] [place] [phone] Hollis Rutledge MD [address] [place] [address] documented as of this encounter Visit Diagnoses Diagnosis Other specified anxiety disorders documented in this encounter Care Teams Implementation Specialist Relationship Specialty Start Date End Date Haily Robb FNP [address] [place] [address] PCP - General Family Medicine 05/01/22 Gregoria Brooks, CHAGO [address] [place] [phone] Registered Nurse Family Medicine 06/15/25 Latricia Houser 06/16/25 documented as of this encounter
--- OUTSIDE RECORDS SUMMARY | 2025-06-24 21:49 | XMS_ITS | Encounter Summary ---
Author Organization [employer] Address [address] [facility] [address] [place] [address] Care Team Providers Care Equipment Washer Name Role Phone Clarisse [facility] Primary Care Provider Gregoria Brooks RN Unavailable [phone] Latricia Houser Unavailable Reason for Visit * Reason Comments Med Refill Encounter Details Date Type Department Care Team (Late st Contact Info) Description 06/03/2025 Refill [facility] 230 [place], [place] [phone] [place] Haily [facility] [address] [place], [place] [phone] Epigastric pain Social History Tobacco Use Types [...] Description 06/29/2025 1:00 PM EDT Office Visit [facility] [address] [place] [phone] Hermes Black RN [address] [place] [phone] 06/29/2025 1:30 PM EDT Office Visit [facility] [address] [place] [phone] Hollis Rutledge MD [address] [place] [address] [phone] documented as of this encounter Goals Goal [...] documented as of this encounter Care Teams Equipment Washer Relationship Specialty Start Date End Date Haily Robb FNP [address] [place] [address] PCP - General Family Medicine 05/01/22 Gregoria Brooks, CHAGO [address] [place] [address] Registered Nurse Family Medicine 06/15/25 Latricia Houser 06/16/25 documented as of this encounter
--- OUTSIDE RECORDS SUMMARY | 2025-06-24 21:49 | XMS_ITS | Encounter Summary ---
Author Organization [facility] [employer] Address [address] [facility] 7t [place] [address] Care Team Providers Care Dining Room Helper Name Role Phone Haily Robb [facility] Primary Care Provider [phone] Gregoria Brooks RN Unavailable [phone] Latricia Houser Unavailable Reason for Visit * Reason Onset Date Comments Results 02/26/2025 Encounter Details Date Type Department Care Team (Late st Contact Info) Description 02/26/2025 Telephone [facility] MEDICINE [address] [place], [place] [phone] ClarisseHaily [facility] 230 [place], [place] [phone] Results Social History Tobacco Use Types Packs/Day [...] back regarding prior message. Contact pt at [phone] * Telephone Encounter - Claudette Ashley - 02/26/2025 12:59 PM EDT TC from pt requesting call back regarding Results. Type of results: Lab Date when done: 02/25/25 Facility: [facility] Contact pt at [phone] (sinhala) documented in this encounter Plan of Treatment Upcoming Encounters Date Type Department Care Team (Late st Contact Info) Description 06/29/2025 1:00 PM EDT Office Visit [facility] MEDICINE [address] [place] [phone] Hermes Black, CHAGO [address] [place] [address] 06/29/2025 1:30 PM EDT Office Visit [facility] MEDICINE [address] [place] [address] 137[address] Hollis Rutledge MD [address] [place] [address] documented as of this encounter Goals Goal Patient Goal Type Associated Problems Recent Progress Patient-Stated? Author Patient will adhere to medication regimen General Mary Chauhan documented as of this encounter Visit Diagnoses Not on filedocumented in this encounter Additional Health Concerns Assessment Noted Time PHQ-9 Depression Total Score: 0 10/10/19 25 1:23 PM EST documented as of this encounter Care Teams Dining Room Helper Relationship Specialty Start Date End Date Haily Robb FNP [address] [place] [address] PCP - General Family Medicine 05/01/22 Gregoria Brooks, CHAGO [address] [place] [address]09 Registered Nurse Family Medicine 06/15/25 Latricia Houser 06/16/25 documented as of this encounter
--- OUTSIDE RECORDS SUMMARY | 2025-06-24 21:49 | XMS_ITS | Encounter Summary ---
Author Organization [employer] Address [address] [facility] [address] 7t [place] [address] Care Team Providers Care Hearing Aid Dispenser Name Role Phone [place], [facility] Primary Care Provider [phone] Gregoria Brooks RN Unavailable [phone] Latricia Houser Unavailable Encounter Details Date Type Department Care Team (Late st Contact Info) Description 06/04/2025 Telephone [facility] MEDICINE 230 [place], [place] [phone] Desoto Kellogg, [facility] 230 [place], [place] [phone] Social History Tobacco Use Types Packs/Day Years [...] Description 06/29/2025 1:00 PM EDT Office Visit [facility] MEDICINE [address] [place] [address] Hermes Black, CHAGO [address] [place] [address] 06/29/2025 1:30 PM EDT Office Visit [facility] MEDICINE [address] [place] [address] Hollis Rutledge MD [address] [place] [address] documented as of this encounter Goals Goal Patient Goal Type Associated Problems Recent Progress Patient-Stated? Author Patient will adhere to medication regimen General No Mary Moreland documented as of this encounter Visit Diagnoses Not on filedocumented in this encounter Additional Health Concerns Assessment Noted Time PHQ-9 Depression Total Score: 21 03/30/ 025 3:59 PM EDT documented as of this encounter Care Teams Hearing Aid Dispenser Relationship Specialty Start Date End Date DesotoHaily FNP 230 [place] [address] PCP - General Family Medicine 05/01/22 Gregoria Brooks RN 230 [place] [address] Registered Nurse Family Medicine 06/15/25 Latricia Houser 06/16/25 documented as of this encounter
--- OUTSIDE RECORDS SUMMARY | 2025-06-24 21:49 | XMS_ITS | Encounter Summary ---
Author Organization [employer] Address [address] [facility] 7t [place] [address] Care Team Providers Care Commercial Specialist Name Role Phone Clarisse Haily [facility] Primary Care Provider Gregoria Brooks RN Unavailable [phone] Latricia Houser Unavailable Reason for Visit * Reason Onset Date Comments Results 03/16/2023 Encounter Details Date Type Department Care Team (Late st Contact Info) Description 03/16/2023 Telephone [facility] MEDICINE 230 [place], [place] [phone] ClarisseHaily [facility] 230 [place], [place] [phone] Results Social History Tobacco Use Types Packs/Day [...] 03/20/2023 4:06 PM EDT Return T/C to [phone] for below message, No answer. LVM to call back on [phone]. * Telephone Encounter - Kelli Boucher - 03/16/2023 2:04 PM EDT Tc from pt requesting a call in regards to results to recent lab orders. Please contact pt at [phone] (Lebanese speaker) documented in this encounter Plan of Treatment Upcoming Encounters Date Type Department Care Team (Late st Contact Info) Description 06/29/2025 1:00 PM EDT Office Visit [facility] MEDICINE [address] [place] [address] [phone] Hermes Black, RN 230 [place] [address] 06/29/2025 1:30 PM EDT Office Visit [facility] MEDICINE [address] [place] [address] [phone] Hollis Rutledge MD 230 [place] [address] documented as of this encounter Visit Diagnoses Not on filedocumented in this encounter Additional Health Concerns Assessment Noted Time PHQ-9 Depression Total Score: 0 01/26/20 23 3:38 PM EDT documented as of this encounter Care Teams Commercial Specialist Relationship Specialty Start Date End Date Haily Robb FNP [address] [place] [address] PCP - General Family Medicine 05/01/22 Gregoria Brooks, CHAGO [address] [place] [address] 14381 Registered Nurse Family Medicine 06/15/25 Latricia Houser 06/16/25 documented as of this encounter
--- OUTSIDE RECORDS SUMMARY | 2025-06-24 21:49 | XMS_ITS | Encounter Summary ---
Author Organization [employer] Address [address] [facility] [address] 7t [place] [address] Care Team Providers Care Hat Designer Name Role Phone Clarisse [facility] Primary Care Provider [phone] Gregoria Brooks RN Unavailable [phone] Latricia Houser Unavailable Reason for Visit * Reason Comments Med Refill Encounter Details Date Type Department Care Team (Late st Contact Info) Description 08/28/2024 Refill [facility] MEDICINE 230 [place], [place] [phone] [place] Haily [facility] 230 [place], [place] [phone] Mixed anxiety and depressive disorder Social History [...] Upcoming Encounters Date Type Department Care Team ([facility] st Contact Info) Description 06/29/2025 1:00 PM EDT Office Visit [facility] MEDICINE [address] [place] [address] Hermes Black RN [address] [place] [address] 06/29/2025 1:30 PM EDT Office Visit [facility] MEDICINE [address] [place] [address] Hollis Rutledge MD [address] [place] [address] documented as of this encounter Goals Goal [...] documented as of this encounter Care Teams Hat Designer Relationship Specialty Start Date End Date Haily RobbANETA 230 [place] [address] PCP - General Family Medicine 05/01/22 Gregoria Brooks, CHAGO [address] [place] [address] Registered Nurse Family Medicine 06/15/25 Latricia Houser 06/16/25 documented as of this encounter
--- OUTSIDE RECORDS SUMMARY | 2025-06-24 21:49 | XMS_ITS | Encounter Summary ---
Author Organization [employer] Address [address] [facility] 7t [place] [address] Care Team Providers Care Manager Division Name Role Phone Haily Robb [employer] Primary Care Provider Gregoria Brooks RN Unavailable [phone] Latricia Houser Unavailable Encounter Details Date Type Department Care Team (Latest Contact Info) Description 06/16/2020 Abstract [facility] CONVERSIONS Dental, Provider, DDS Social History [...] Description 06/29/2025 1:00 PM EDT Office Visit [facility] MEDICINE [address] [place] [address] Hermes Black, CHAGO [address] [place] [address] [phone] 06/29/2025 1:30 PM EDT Office Visit [facility] MEDICINE [address] [place] [address] Hollis Rutledge MD 230 [place], [place] [phone] documented as of this encounter Visit Diagnoses Not on filedocumented in this encounter Care Teams Manager Division Relationship Specialty Start Date End Date Haily Robb ANETA 230 [place] [address] PCP - General Family Medicine 05/01/22 Gregoria Brooks RN 230 [place] [address] Registered Nurse Family Medicine 06/15/25 Latricia Houser 06/16/25 documented as of this encounter
--- OUTSIDE RECORDS SUMMARY | 2025-06-24 21:49 | XMS_ITS | Encounter Summary ---
Author Organization [employer] Address [address] [facility] 7t [place] [address] Care Team Providers Care Marketing Operations Consultant Name Role Phone Clarisse Haily [employer] Primary Care Provider Gregoria Brooks RN Unavailable [phone] Latricia Houser Unavailable Reason for Visit * Reason Comments Med Refill Encounter Details Date Type Department Care Team (Late st Contact Info) Description 04/02/2023 Refill [facility] MEDICINE 230 [place], [place] [phone] Juanjose Braton MD 230 [place], [place] [phone] Chronic pruritus Social History Tobacco Use Types [...] Description 06/29/2025 1:00 PM EDT Office Visit [facility] MEDICINE [address] [place] [address] Hermes Black, CHAGO [address] [place] [address] 06/29/2025 1:30 PM EDT Office Visit [facility] MEDICINE [address] [place] [address] Hollis Rutledge MD [address] [place] [address] documented as of this encounter Visit Diagnoses Diagnosis Chronic pruritus documented in this encounter Additional Health Concerns Assessment Noted Time PHQ-9 Depression Total Score: 0 01/26/20 23 3:38 PM EDT documented as of this encounter Care Teams Marketing Operations Consultant Relationship Specialty Start Date End Date Haily Robb FNP [address] [place] [address] PCP - General Family Medicine 05/01/22 Gregoria Brooks, CHAGO [address] [place] [address] 7[address] Registered Nurse Family Medicine 06/15/25 Latricia Houser 06/16/25 documented as of this encounter
--- OUTSIDE RECORDS SUMMARY | 2025-06-24 21:49 | XMS_ITS | Clinical Summary ---
Author Organization [facility] Address [address] [place] [address] Phone Care Team Providers Care Hyperbaric Nurse Name Role Phone [facility] Primary Care Provider [phone] Medications polyethylene glycol (Golytely) 236-22.74-6.74 -5.86 gram [...] Address Personal/Family Self 1970 [address] [facility] [address] [place] [address] MEDICAID - [place] Care Teams Hyperbaric Nurse Relationship Specialty Start Date End Date [place]aketHaily [address] [address] PCP - General 05/20/24
--- OUTSIDE RECORDS SUMMARY | 2025-06-24 21:49 | XMS_ITS | Encounter Summary ---
Author Organization [employer] Address [address] [facility] 7t [place] [address] Care Team Providers Care Disk And Tape Machine Tender Name Role Phone [facility] Primary Care Provider [phone] Gregoria Brooks RN Unavailable [phone] Latricia Houser Unavailable Reason for Visit * Reason Comments Med Refill Encounter Details Date Type Department Care Team (Late st Contact Info) Description 06/03/2025 Refill [facility] 230 [place], [place] [phone] [facility] 230 [place], [place] [phone] Restless leg Social History Tobacco Use Types [...] 1:00 PM EDT Office Visit [facility] MEDICINE [address] [place] [address] Hermes Black RN [address] [place] [address] 06/29/2025 1:30 PM EDT Office Visit [facility] MEDICINE [address] [place] [address] 365[address] Hollis Rutledge MD [address] [place] [address] documented as of this encounter Goals Goal [...] documented as of this encounter Care Teams Disk And Tape Machine Tender Relationship Specialty Start Date End Date MillisHaily FNP 230 [place] [address] PCP - General Family Medicine 05/01/22 Gregoria Brooks, CHAGO [address] [place] [address] Registered Nurse Family Medicine 06/15/25 Latricia Houser 06/16/25 documented as of this encounter
--- OUTSIDE RECORDS SUMMARY | 2025-06-24 21:49 | XMS_ITS | Encounter Summary ---
Author Organization [employer] Address 75 [facility] 7t [place] [address] Care Team Providers Care Accounting Associate Name Role Phone Haily Robb [employer] Primary Care Provider Gregoria Brooks RN Unavailable [phone] Latricia Houser Unavailable Reason for Visit * Reason Comments Med Refill Encounter Details Date Type Department Care Team (Late st Contact Info) Description 04/02/2023 Refill [facility] 230 [place], [place] [phone] Hollis Rutledge MD 230 [place], [place] [phone] Social History Tobacco Use Types Packs/Day Years [...] Description 06/29/2025 1:00 PM EDT Office Visit [facility] MEDICINE [address] [place] [address] Hermes Black, CHAGO [address] [place] [address] 06/29/2025 1:30 PM EDT Office Visit [facility] MEDICINE [address] [place] [address] Hollis Rutledge MD 230 [place] [address] documented as of this encounter Visit Diagnoses Not on filedocumented in this encounter Additional Health Concerns Assessment Noted Time PHQ-9 Depression Total Score: 0 01/26/20 23 3:38 PM EDT documented as of this encounter Care Teams Accounting Associate Relationship Specialty Start Date End Date Haily Robb FNP [address] [place] [address] PCP - General Family Medicine 05/01/22 Gregoria Brooks, RN [address] [place] [address] Registered Nurse Family Medicine 06/15/25 Latricia Houser 06/16/25 documented as of this encounter
--- OUTSIDE RECORDS SUMMARY | 2025-06-24 21:49 | XMS_ITS | Encounter Summary ---
Author Organization [employer] Address [address] [facility] 7t [place] [address] Care Team Providers Care Temp Recruiter Name Role Phone Haily Robb [employer] Primary Care Provider Gregoria Brooks RN Unavailable [phone] Latricia Houser Unavailable Encounter Details Date Type Department Care Team (Latest Contact Info) Description 06/01/2022 Abstract [facility] CONVERSIONS Dental, Provider, DDS Social History [...] Description 06/29/2025 1:00 PM EDT Office Visit [facility] MEDICINE [address] [place] [address] Hermes Black, CHAGO [address] [place] [address] [phone] 06/29/2025 1:30 PM EDT Office Visit [facility] MEDICINE [address] [place] [address] Hollis Rutledge MD 230 [place], [place] [phone] documented as of this encounter Visit Diagnoses Not on filedocumented in this encounter Care Teams Temp Recruiter Relationship Specialty Start Date End Date Haily Robb ANETA 230 [place] [address] PCP - General Family Medicine 05/01/22 Gregoria Brooks RN 230 [place] [address] Registered Nurse Family Medicine 06/15/25 Latricia Houser 06/16/25 documented as of this encounter
--- OUTSIDE RECORDS SUMMARY | 2025-06-24 21:49 | XMS_ITS | Encounter Summary ---
Author Organization [employer] Address [address] [facility] [address] 7t [place] [address] Care Team Providers Care Echo Vasc Tech Name Role Phone [facility] Primary Care Provider Gregoria Brooks RN Unavailable [phone] Latricia Houser Unavailable Reason for Visit * Reason Comments Med Refill Encounter Details Date Type Department Care Team (Late st Contact Info) Description 05/31/2025 Refill [facility] 230 [place], [place] [phone] [facility] 230 [place], [place] [phone] Restless leg Social History Tobacco Use Types [...] 06/29/2025 1:00 PM EDT Office Visit [facility] MEDICINE [address] [place] [address] Hermes Black RN [address] [place] [address] 140[address] 06/29/2025 1:30 PM EDT Office Visit [facility] MEDICINE [address] [place] [address] Hollis Rutledge MD [address] [place] [address] documented as of this encounter Goals Goal [...] documented as of this encounter Care Teams Echo Vasc Tech Relationship Specialty Start Date End Date MohawkHaily FNP [address] [place] [address] PCP - General Family Medicine 05/01/22 Gregoria Brooks, CHAGO [address] [place] [address] Registered Nurse Family Medicine 06/15/25 Latricia Houser 06/16/25 documented as of this encounter
== END 2025-06-24 15:39 | disposition home or self-care (01) ==
LOC: HO.HHCX 15:38
PROVIDERS: Visit Provider Emergency Medicine
DX: R76.12 Nonspecific reaction to cell mediated immunity measurement of gamma interferon antigen response without active tuberculosis (principal)
CPT/HCPCS: 71046

== ENCOUNTER → 2025-06-24 15:40 | Outpatient (BNV) | payer MEDICAID, SELFPAY | PROVIDERS: Visit Provider Radiology Diagnostic Radiology | DX: R76.12 Nonspecific reaction to cell mediated immunity measurement of gamma interferon antigen response without active tuberculosis (principal) | CPT/HCPCS: 71046 ==

== ENCOUNTER 2025-07-02 09:20 | Emergency (ER) | payer MEDICAID, SELFPAY ==
--- NOTE | ~2025-07-02 | XR_ITS ---
EXAMINATION: XR CHEST CLINICAL INFORMATION: Couging. pnuemonia? COMPARISON: Previous chest x-ray most recently June 24, 2025 TECHNIQUE: Frontal view of the chest was obtained. FINDINGS: No significant abnormality is noted involving the heart, lungs, mediastinum, bony thorax or soft tissues. XR/XR chest 1V IMPRESSION: Unremarkable examination. Electronically signed by: Gilda Lopez MD 07/02/2025 04:03 PM EDT
[2025-07-02 09:45] VITALS: BP 115/66; PULSE 88; RESP 16; TEMP 36.4; O2SAT 98; BMI 20.5
--- NOTE | 2025-07-02 09:52 | ECG_ITS ---
Test Reason : PALPAITATION Blood Pressure : */* mmHG Vent. Rate : 81 BPM Atrial Rate : 81 BPM P-R Int : 136 ms QRS Dur : 82 ms QT Int : 334 ms P-R-T Axes : 56 40 27 degrees QTcB Int : 387 ms Normal sinus rhythm Nonspecific T wave abnormality Abnormal ECG When compared with ECG of 13-Jun-2025 12:18, Nonspecific T wave abnormality now evident in Lateral leads Referred By: Generic ED Physician Electronically Signed By: JAILYN MORE
[2025-07-02 10:23] LABS: MANUAL DIFF FLAG NO
[2025-07-02 10:28] LABS: Hematocrit 42.9 % (42.0-52.0); Hemoglobin 14.4 g/dl (14.0-18.0); Imm Gran Abs Auto 0.01 X10*3/uL (0.00-0.03); Imm Gran Pct Auto 0.2 % (0.0-0.4); Lymphocytes Absolute Auto 0.9 X10*3/uL (1.2-4.9); Mean Corpuscular HGB Conc 33.6 g/dl (31.0-36.0); Mean Corpuscular Hemoglobin 32.6 pg (27.0-33.0); Mean Corpuscular Volume 97.1 fL (80.0-98.0); NRBC Abs Auto 0.000 X10*3/uL (0.0-0.012); NRBC Pct Auto 0.0 /100WBC (0.0-0.2); Platelet Count 201 X10*3/uL (160-400); Red Blood Count 4.42 X10*6/uL (4.60-5.80); White Blood Count 4.8 X10*3/uL (4.8-10.8)
[2025-07-02 10:43] LABS: Anion Gap 10 (12-20); Blood Urea Nitrogen 12 mg/dL (9-16); Calcium 9.4 mg/dL (8.4-10.2); Carbon Dioxide 31 mmol/L (22-29); Chloride 105 mmol/L (96-108); Creatinine Clr Calc Pharmacy 75.9; Estimated Glomerular Filt Rate > 60; Potassium 4.0 mmol/L (3.3-5.1); Sodium 142 mmol/L (135-145)
[2025-07-02 10:52] LABS: Troponin-I High Sensitivity < 2.7 ng/L (<3.5-35.0)
[2025-07-02 16:20] LABS: Troponin-I High Sensitivity < 2.7 ng/L (<3.5-35.0)
--- OUTSIDE RECORDS SUMMARY | 2025-07-02 18:05 | XMS_ITS | Clinical Summary ---
Author Organization [employer] Address [address] [facility] 7[address] [place] [address] Care Team Providers Care Commissions Manager Name Role Phone Clarisse [facility] Primary Care Provider [phone] Gregoria Brooks RN Unavailable [phone] Latricia Houser Unavailable Allergies Active Allergy [...] eorder (will not trigger notification to Pharmacy)) simethicone 125 MG capsule Take 1 capsule (125 mg) by mouth if needed in the morning, at noon, in the evening, and at bedtime (abd pain/gas). 30 capsule 1 2024 Discontinued amitriptyline (Elavil) 25 MG tabletIndications :Chronic nonintractable headache, unspecified headache type Take 1 tablet (25 mg) by mouth at bedtime. 30 tablet 2024 Discontinued Acetaminophen 500 MG capsule Take 1 capsule [...] BEDTIME NEEDED FOR GAS 30 capsule 1 2024 Discontinued Active Problems Problem Noted Date [...] Avoidance of pollen as much as possible. [place] of ophthalmic mast cell stabilizer, nasal steroid and antihistamine. LLQ pain 01/06/2025 Assessment & Plan (01/06/2025 11:25 AM EDT): No evidence of acute abdomen. Chronic. He needs colon cancer screening and has been referred to [facility] in the past. He was encouraged to call in November but did not. We called today to facilitate appointment and give him the number to call. ER precautions discussed. [facility] reports pt has to call himself due to cancelled and did not make follow up. He was given the number [phone]. I stressed the importance of following up [...] any case Continue Carafate Call GI at [facility] for EGD and colonoscopy Eat small frequent [...] 03/2023 Established with therapy and psychiatry at [facility] No rash, fever, chills, lymphadenopathy [...] for anxiety sxs) that comes referred from [facility] for exacerbated anxiety in presence of [...] a good support system through his family, confucianism and recovery network, as well as having [...] to explore potential nerve damage due to ocean transportation intermediary use of anxiolytics, even though John is on low dose medication. At this time is unclear if crawling/burning sensation on skin is solely due to medical and/or somatic presentation. However, sxs are causing significant psychological distress in patient. John was given information on how to reach out to [facility] BHI team and [facility] numbers for crisis. He was also encouraged to bring current event to team to discuss further coping skills to support wellbeing. Patient was agreeable Opioid dependence in remission ([facility]) 023 Scrotal pain 02/04/2023 Overview (02/04/2023): saw urology for scrotal pain. PE and u/s negative other than small hydrocele. No fruther eval needed. Tyleno ibu for pain Hypogonadism in male 11/02/2022 Overview (11/02/2022): Followed by [facility] urology Dr. Lux subcutaneous testosterone [...] of this appointment. His appointment is at [facility] Tb clinic [phone] on January 27 at 11:00 am. He [...] depressive disorder 02/22/2017 Overview (08/05/2023): Followed by [facility] Clonazepam PRN Clonidine PRN Assessment & Plan (11/06/2022 5:05 AM EST): Spoke with [facility] pharmacy-the blue conazepam tablets that patient prefer are from a different highway painter and are on back order. Pt will [...] Encounters Date Type Department Care Team Description 07/02/2025 Orders Only GENERIC EXTERNAL DATA DEPARTMENT Provider, Generic External Data 07/01/2025 Patient Outreach [facility] MEDICINE [address] [place] [address] [place] FNP Care Management (C3CM- FOLLOW UP CALL) 06/30/2025 Patient Outreach [address] [address] Haily Robb FNP Care Coordination (C3 CM-W Latricia Houser telephone call outreach/) 06/24/2025 2:40 PM EDT [facility] [address] [address] Hollis Rutledge MD Erythema (Primary Dx); Positive QuantiFERON-TB Gold test 06/24/2025 Results Follow-Up [facility] [address] [address] Hollis Rutledge MD XR Chest 2 Views 06/24/2025 Patient Outreach [address] [address] Lino Holder Recovery Supports 06/24/2025 Travel 06/24/[address] [address] Hermes Black, RN OBAT Communication 06/24/[address] [address] Haily Robb FNP Results 06/23/2025 Patient Outreach [address] [address] Haily Robb FNP Care Management (C3CM- FOLLOW UP CALL ) 06/23/2025 [facility]ill [facility] [address] [address] Roxana Gotti DO 06/22/2025 1:20 PM EDT Office Visit [address] [address] Sanam Noland MD Acute non intractable tension-type headache; Palpitations; Left lower quadrant abdominal pain; Slow transit constipation 06/18/2025 Plan of Care Documentation [address] [address] 06/18/2025 Patient Outreach [address] [address] Haily Robb FNP Care Coordination 06/17/2025 Plan of Care Documentation [address] [address] 06/17/2025 Patient Outreach [address] [place] [address] Haily Robb FNP Care Management (C3 COMPLEX INITIAL ASSESSMENT/ ENROLLMENT-/) 06/16/2025 Patient Outreach [facility] [address] Haily Robb FNP Care Coordination (C3 -[facility] Latricia Houser telephone call outreach) 06/16/2025 Patient Outreach [address] [address] Haily Robb FNP Care Coordination (C3 -[facility] Latricia Houser chart review) 06/16/2025 Patient Outreach [address] [address] Haily Robb FNP Care Management (C3 -CHART REVIEW ) 06/15/2025 Patient Outreach [address] [address] Haiyl Robb FNP 06/13/2025 Orders Only GENERIC EXTERNAL DATA DEPARTMENT Provider, Generic External Data 06/10/2025 2:00 PM EDT Office Visit [address] [address] Haily Robb FNP Somatic symptom disorder, persistent, moderate (Primary Dx); Latent tuberculosis; Encounter for immunization 06/10/2025 Travel 06/09/[address] [address] Haily Robb FNP 06/04/[address] [address] Haily Robb [facility] 06/04/2025 Refill [facility] WALK-IN CENTER [address] [place] [address] Elda Love MD Seasonal allergies; Chronic nonintractable headache, unspecified headache type 06/03/[address] [address] Haily Robb FNP Epigastric pain 06/03/2025 Refill [facility] WALK-IN CENTER [address] [place] [address] Roxana Gotti DO 06/03/2025 Patient Outreach [facility] MEDICINE [address] [place] [address] Clarisse Haily OFFICE CLERK ROUTINE Pre-visit Planning (SDOH screening negative and tobacco screening negative) 06/03/2025 Refill [facility] WALK-IN [address] [address] [place] [facility] Restless leg 06/02/2025 3:40 PM EDT Office Visit [facility] WALK-IN [address] [address] Elda Love MD Acute URI (Primary Dx) 06/02/2025 Travel 05/31/2025 Refill [facility] WALK-IN [address] [address] [place] molina OFFICE CLERK ROUTINE Restless leg 05/27/2025 Refill [facility] WALK-IN [address] [address] Jana Morgan MD Bilateral lower extremity edema 05/19/2025 Orders Only [address] [address] Sanam Noland MD Chronic bilateral low back pain without sciatica (Primary Dx) 05/19/[address] [address] [place] [facility] Med Refill 05/15/2025 10:00 AM EDT Office Visit [facility] [address] [address] Collins Reyes MD Bloating (Primary Dx); Drug-induced constipation; Concern about diabetes mellitus without diagnosis 05/15/2025 Travel 05/14/2025 Refill [facility] WALK-IN [address] [address] Roxana Gotti DO Epigastric pain 05/12/2025 9:20 AM EDT Office Visit [facility] WALK-IN [address] [address] Elda Love MD Chronic nonintractable headache, unspecified headache type 05/12/2025 Travel 05/08/2025 Telephone [facility] MEDICINE [address] [place] [address] [facility] Referral 05/05/2025 Telephone [facility] MEDICINE [address] [place] [address] [facility] Jun/jul recall 05/04/2025 Refill [facility] WALK-IN CENTER [address] [place] [address] [facility] Wheezing 05/02/2025 Refill [facility] MEDICINE [address] [place] [address] [facility] Mixed anxiety and depressive disorder; Wheezing 04/29/2025 Orders Only GENERIC EXTERNAL DATA DEPARTMENT Provider, Generic External Data 04/27/2025 1:40 PM EDT [facility] [address] [address] Sanam Noland MD Chronic bilateral low back pain without sciatica (Primary Dx); Chronic nonintractable headache, unspecified headache type 04/27/2025 Travel 04/21/2025 10:20 AM EDT [facility] [address] [address] Collins Reyes MD Chronic nonintractable headache, unspecified headache type (Primary Dx) 04/21/2025 Travel 04/06/2025 Refill [facility] MEDICINE [address] [place] [address] Gema Gar FNP Stasis dermatitis 04/05/2025 Orders Only GENERIC EXTERNAL DATA DEPARTMENT Provider, Generic External Data 04/04/2025 10:20 AM EDT Office Visit [facility] WALKIN [address] [address] Francy Jennings MD Benign prostatic hyperplasia with urinary frequency (Primary Dx); Drug-induced constipation; Hypogonadism in male 04/04/2025 Travel from Last 3 Months Immunizations Immunization Administration [...] 06/24/2025 2:44 PM EDT Plan of Treatment Health Maintenance [...] Diagnosis Comments XR CHEST 1 VIEW Routine 07/02/2025 3:55 PM EDT HIGH SENSITIVITY TROPONIN I Routine 07/02/2025 3:54 PM EDT HIGH SENSITIVITY TROPONIN I Routine 07/02/2025 10:18 AM EDT BASIC METABOLIC PANEL Routine 07/02/2025 10:18 AM EDT CBC WITH AUTO DIFFERENTIAL Routine 07/02/2025 10:18 AM EDT XR CHEST 2 VIEWS Routine 06/24/2025 4:04 [...] Maintenance Results * XR Chest 1 View (07/02/2025 3:55 PM EDT) Only the most recent of2 resultswithin the time period is included. Anatomical Region Laterality Modality Chest Radiographic Cecelia ging 07/02/2025 3:55 PM EDT Narrative 07/02/2025 4:06 PM EDT [place] [address] XRay Report Signed Patient: John Fitzpatrick MR#: [id number] : 1970 Acct:[id number] Age/Sex: 55 / M ADM Date: 07/02/25 Loc: HO.ED Attending Dr: Ordering Physician: Rah Dhaliwal Date of Service: 07/02/25 Procedure(s): XR chest 1V Accession Number(s): [id number] cc: Rah Dhaliwal; [facility] Reason for Exam: Couging. pnuemonia? EXAMINATION: XR CHEST CLINICAL INFORMATION: Couging. pnuemonia? COMPARISON: Previous chest x-ray most recently June 24, 2025 TECHNIQUE: Frontal view of the chest was obtained. FINDINGS: No significant abnormality is noted involving the heart, lungs, mediastinum, bony thorax or soft tissues. XR/XR chest 1V IMPRESSION: Unremarkable examination. Electronically signed by: Gilda Lopez MD 07/02/2025 04:03 PM EDT RP Dictated By: Gilda Lopez MD Signed By: <Electronically signed by Gilda Lopez MD in OV> 07/02/25 1603 DD/ 1555 TD/TT: 07/02/251556 Side Guider: LUIS ANTONIO Procedure Note Donotuseinterpreter, Image - 07/02/[address] [address] XRay Report Signed Patient: John Fitzpatrick AMR#: [id number] : 1970Acct:[id number] Age/Sex: 55 / MADM Date: 07/02/25 Loc: HO.ED Attending Dr: Ordering Physician: Rah Dhaliwal Date of Service: 07/02/25 Procedure(s): XR chest 1V Accession Number(s): [id number] cc: Rah Dhaliwal; [facility] Reason for Exam: Couging. pnuemonia? EXAMINATION: XR CHEST CLINICAL INFORMATION: Couging. pnuemonia? COMPARISON: Previous chest x-ray most recently June 24, 2025 TECHNIQUE: Frontal view of the chest was obtained. FINDINGS: No significant abnormality is noted involving the heart, lungs, mediastinum, bony thorax or soft tissues. XR/XR chest 1V IMPRESSION: Unremarkable examination. Electronically signed by: Gilda Lopez MD 07/02/2025 04:03 PM EDT Dictated By: Gilda Lopez MD Signed By: <Electronically signed by Gilda Lopez MD in OV> 07/02/25 1603 DD/ TD/TT: 07/02/251556 Side Guider: LUIS ANTONIO [facility] External Provider IMG XR PROCEDURES Final Result * High Sensitivity Troponin I (07/02/2025 3:54 PM EDT) Only the most recent of4 resultswithin the time period is included. TROPONIN I HIGH SENSITIVITY <2.7 <3.5 - 35.0 ng/L [facility] Comment:The Lemon high sens itivity Troponin-I results should beused in conjunction with other diagnostic information suchas ECG, clinical observations and information, and patientsymptoms to aid in the diagnosis of TN. 07/02/2025 3:54 PM EDT 07/02/2025 3:57 PM EDT us Generic External Data Provider LAB BLOOD ORDERAB LES Final Result [facility] [address] [place] [address] [phone] * (ABNORMAL) CBC auto differential (07/02/2025 10:18 AM EDT) Only the most recent of4 resultswithin the time period is included. White Blood Count 4.8 4.8 - 10.8 X10*3/uL [facility] Red Blood Count 4.42(L) 4.60 - 5.80 X10*6/uL [facility] Hemoglobin 14.4 14.0 - 18.0 g/dl [facility] Hematocrit 42.9 42.0 - 52.0 % [facility] Mean Corpuscular Volume 97.1 80.0 - 98.0 fL [facility] Mean Corpuscular Hemoglobin 32.6 27.0 - 33.0 pg [facility] Mean Corpuscular HGB Conc 33.6 31.0 - 36.0 g/dl [facility] Red Cell Distribution Width 11.9 11.0 - 16.0 % [facility] Platelet Count 201 160 - 400 X10*3/uL [facility] Mean Platelet Volume 10.1 9.4 - 12.4 fL [facility] Neutrophils Percent Auto 71.0 45 - 73 % [facility] Imm Gran Pct Auto 0.2 0.0 - 0.4 % [facility] Lymphocytes Percent Auto 18.8(L) 20 - 40 % [facility] Monocytes Percent Auto 7.5 2 - 11 % [facility] Eosinophils Percent Auto 1.9 0 - 4 % [facility] Basophils Percent Auto 0.6 0 - 2 % [facility] NRBC Pct Auto 0.0 0.0 - 0.2 /100WBC [facility] Neutrophils Absolute Auto 3.4 2.0 - 8.3 x10*3/uL [facility] Imm Gran Abs Auto 0.01 0.00 - 0.03 X10*3/uL [facility] Lymphocytes Absolute Auto 0.9(L) 1.2 - 4.9 X10*3/uL [facility] Monocytes Absolute Auto 0.4 0.1 - 1.2 X10*3/uL [facility] Eosinophils Absolute Auto 0.1 0.0 - 0.4 X10*3/uL [facility] Basophils Absolute Auto 0.0 0.0 - 0.2 X10*3/uL [facility] NRBC Abs Auto 0.000 0.0 - 0.012 X10*3/uL [facility] 07/02/2025 10:1 8 AM EDT 07/02/2025 10:21 AM EDT us Generic External Data Provider LAB BLOOD ORDERAB LES Final Result [facility] [address] [place] [address] [phone] * (ABNORMAL) Basic Metabolic Panel (07/02/2025 10:18 AM EDT) Only the most recent of2 resultswithin the time period is included. Sodium 142 135 - 145 mmol/L [facility] Potassium 4.0 3.3 - 5.1 mmol/L [facility] Chloride 105 96 - 108 mmol/L [facility] Carbon Dioxide 31(H) 22 - 29 mmol/L [facility] Anion Gap 10(L) 12 - 20 [facility] Urea Nitrogen (BUN) 12 9 - 16 mg/dL [facility] Creatinine, Serum 0.93 0.5 - 1.4 mg/dL [facility] Creatinine Clr Calc Pharmacy 75.9 [facility] Comment:eGFR (calculated fro m the MDRD study equation) and eCrCl(calculated from the Cockcroft-Gault equation) are based ondifferent parameters and may not yield comparable results.If eCrCl result is absurd, please check patient'sheight/weight. Estimated Glomerular Filt Rate >60 [facility] Comment:Chronic Kidney Disea se: Estimated GFR < 60 mL/min/1.46j1Ongfsr Kidney Disease: Estimated GFR < 15 mL/min/1.73m2 Glucose 98 60 - 115 mg/dL [facility] Calcium 9.4 8.4 - 10.2 mg/dL [facility] 07/02/2025 10:1 8 AM EDT 07/02/2025 10:21 AM EDT us Generic External Data Provider LAB BLOOD ORDERAB LES Final Result Performing Organization Address City/State/[facility] Co de Phone Number [facility] [address] [place] [phone] * XR Chest 2 Views (06/24/2025 4:04 PM EDT) Anatomical Region Laterality Modality Chest Radiographic Cecelia ging 06/24/2025 4:04 PM EDT Narrative 06/24/2025 4:11 PM EDT [address] [address] XRay Report Signed Patient: John Fitzpatrick MR#: [id number] : 1970 Acct:[id number] Age/Sex: 55 / M ADM Date: 06/24/25 Loc: HO.HHCX Attending Dr: Hollis Rutledge MD Ordering Physician: HOLLIS RUTLEDGE MD Date of Service: 06/24/25 Procedure(s): XR chest 2V Accession Number(s): [id number] cc: HOLLIS RUTLEDGE MD Reason for Exam: [...] OV> 06/24/25 1608 DD/ 160 TD/TT: 06/24/251603 Side Guider: Procedure Note Donotuseinterpreter, Image - 06/24/[address] [address] XRay Report Signed Patient: John Fitzpatrick AMR#: [id number] : 1970Acct:[id number] Age/Sex: 55 / MADM Date: 06/24/25 Loc: HO.HHCX Attending Dr: Hollis Rutledge MD Ordering Physician: HOLLIS RUTLEDGE MD Date of Service: 06/24/25 Procedure(s): XR chest 2V Accession Number(s): [id number] cc: HOLLIS RUTLEDGE MD Reason for Exam: [...] OV> 06/24/25 1608 DD/ 160 TD/TT: 06/24/251603 Side Guider: Hollis Rutledge MD IMG XR PROCEDURES Final Result * TSH W/Reflex to FT4 (06/22/2025 2:19 PM EDT) TSH reflex Free T4 1.82 0.32 - 4.0 uIU/mL [facility] Blood Venous blood specimen / Unknown 06/22/2025 2:19 PM EDT 06/22/2025 3:58 PM EDT us Sanam Peacock MD LAB BLOOD ORDERABLES Final Result [facility] [address] [place] [address] [phone] * COVID-19 ID NOW (Expanite) (06/13/2025 3:10 PM EDT) Only the most recent of2 resultswithin the time period is included. IDNOW SERIAL# [id number] [facility] COVID-19 TEST Negative Negative [facility] COVID-19 NOTE See Note [facility] Comment: Results are for the identification of SARS-CoV2 RNA. TheSARS-CoV2 RNA is generally detectable in respiratory samplesduring the acute phase of infection. Positive results areindicative of the presence of SARS-CoV-2 RNA; clinicalcorrelation with patient history and other diagnosticinformation is necessary to determine patient infectionstatus. Positive results do not rule out bacterial infectionor co- infection with other viruses.Testing facilities within the [facility] and [facility] are required to report all positive results [...] use by authorized laboratories.Testing performed on the Lemon ID NOW utilizing NAAT. 06/13/2025 3:10 PM EDT 06/13/2025 3:15 PM EDT Generic External Data Provider LAB MOLECULAR KATIUSKA GNOSTICS ORDERABLES Final Result Performing Organization Address [facility] de Phone Number [facility] [address] [place] [phone] * Influenza A B2 ID NOW (Lemon) (06/13/2025 2:15 PM EDT) IDNOW SERIAL# [id number] [facility] Influenza A Negative Negative [facility] Influenza B2 Negative Negative [facility] Influenza A B2 Note See Note [facility] Comment:The Lemon ID NOW In fluenza [...] GENERAL ORDERABLES Final Result Performing Organization Address [facility] de Phone Number [facility] [address] [place] [phone] * XR KUB and Upright 2 Views (06/13/2025 1:48 PM EDT) Anatomical Region Laterality Modality Radiographic Cecelia ging 06/13/2025 1:48 PM EDT Narrative 06/13/2025 1:50 PM EDT [address] [address] XRay Report Signed Patient: John Fitzpatrick MR#: [id number] : 1970 Acct:[id number] Age/Sex: 55 / M ADM Date: 06/13/25 Loc: HO.ED Attending Dr: Ordering Physician: Fay Rosales Date of Service: 06/13/25 Procedure(s): XR KUB Accession Number(s): [id number] cc: Fay Rosales; [facility] Reason for Exam: constipation CLINICAL HISTORY: constipation [...] 06/13/25 1349 DD/ 1348 TD/TT: 06/13/25 1348 Side Guider: Procedure Note Donotuseinterpreter, Image - 06/13/2025 [place] [address] XRay Report Signed Patient: John Fitzpatrick [facility]#: [id number] : 1970Acct:[id number] Age/Sex: 55 / MADM Date: 06/13/25 Loc: .ED Attending Dr: Ordering Physician: Fay Rosales Date of Service: 06/13/25 Procedure(s): XR KUB Accession Number(s): [id number] cc: Fay Rosales; [facility] Reason for Exam: constipation CLINICAL HISTORY: constipation [...] 06/13/25 1349 DD/ 1348 TD/TT: 06/13/25 1348 Side Guider: [facility] External Provider IMG XR PROCEDURES Final Result * Urinalysis w/reflex microscopic (06/13/2025 12:33 PM EDT) Color Urine Yellow [facility] Appearance Urine Clear [facility] PH 8.5 5.0 - 9.0 [facility] Glucose Urine UA Negative Negative mg/dL [facility] Urine Blood Negative Negative [facility] Specific Jonancy - Urine 1.020 1.005 - 1.025 [facility] Urine Protein Negative Neg-Trace mg/dL [facility] Urine Ketones Negative Negative mg/dL [facility] Nitrite Urine Negative Negative [facility] Leukocyte Esterase Urine Negative Negative [facility] 06/13/2025 12:3 3 PM EDT 06/13/2025 12:37 PM EDT Narrative [facility] - 06/13/2025 1:25 PM EDT [id number], Clean Catch Generic External Data Provider LAB URINE ORDERAB LES Final Result Performing Organization Address [facility]/ZIP Co de Phone Number [facility] [address] [place] [phone] * Magnesium (06/13/2025 12:28 PM EDT) Magnesium 1.9 1.6 - 2.6 mg/dL [facility] 06/13/2025 12:2 8 PM EDT 06/13/2025 12:31 PM EDT Generic External Data Provider LAB BLOOD ORDERAB LES Final Result Performing Organization Address [facility]/ZIP Co de Phone Number [facility] [address] [place] [phone] * Lipase (06/13/2025 12:28 PM EDT) Only the most recent of2 resultswithin the time period is included. Lipase 19 8 - 78 U/L [facility] 06/13/2025 12:2 8 PM EDT 06/13/2025 12:31 PM EDT us Generic External Data Provider LAB BLOOD ORDERAB LES Final Result [facility] [address] [place] [phone] [phone] * (ABNORMAL) Comprehensive Metabolic Panel (06/13/2025 12:28 PM EDT) Only the most recent of2 resultswithin the time period is included. Sodium 138 135 - 145 mmol/L [facility] Potassium 4.3 3.3 - 5.1 mmol/L [facility] Chloride 102 96 - 108 mmol/L [facility] Carbon Dioxide 31(H) 22 - 29 mmol/L [facility] Anion Gap 9(L) 12 - 20 [facility] Urea Nitrogen (BUN) 14 9 - 16 mg/dL [facility] Creatinine, Serum 0.99 0.5 - 1.4 mg/dL [facility] Creatinine Clr Calc Pharmacy 70.4 [facility] Comment:eGFR (calculated fro m the MDRD study equation) and eCrCl(calculated from the Cockcroft-Gault equation) are based ondifferent parameters and may not yield comparable results.If eCrCl result is absurd, please check patient'sheight/weight. Estimated Glomerular Filt Rate >60 [facility] Comment:Chronic Kidney Disea se: Estimated GFR < 60 mL/min/1.01q3Oevwfa Kidney Disease: Estimated GFR < 15 mL/min/1.73m2 Glucose 100 60 - 115 mg/dL [facility] Calcium 9.5 8.4 - 10.2 mg/dL [facility] Bilirubin, Total 1.5(H) 0.0 - 1.0 mg/dL [facility] Aspartate Amino Transferase 24 5 - 37 U/L [facility] Alanine Aminotransferase 18 0 - 40 U/L [facility] Total Protein 7.5 6.5 - 8.0 g/dL [facility] Albumin Level 4.9 3.5 - 5.0 g/dL [facility] Alkaline Phosphatase 50 39 - 117 U/L [facility] 06/13/2025 12:2 8 PM EDT 06/13/2025 12:31 PM EDT Generic External Data Provider LAB BLOOD ORDERAB LES Final Result Performing Organization Address City/State/[facility] Co de Phone Number [facility] [address] [place] [phone] * (ABNORMAL) POCT Hgb A1c (05/15/2025 [...] AM EDT Narrative 04/29/2025 12:15 PM EDT [place] [address] CT Scan Report Signed Patient: John Fitzpatrick MR#: [id number] : 1970 Acct:[id number] Age/Sex: 55 / M ADM Date: 04/29/25 Loc: HO.ED Attending Dr: Ordering Physician: Erik Montano DO Date of Service: 04/29/25 Procedure(s): CT head/brain wo IV con Accession Number(s): [id number] cc: Erik Montano DO; [facility] Report Number: [id number]: Total DLP = 672.00 mGy-cm EXAMINATION: CT [...] 04/29/25 1212 DD/ 1132 TD/TT: 04/29/25 1205 Side Guider: Procedure Note Donotuseinterpreter, Image - 04/29/[address] [address] [address] Scan Report Signed Patient: John Fitzpatrick AMR#: [id number] : 1970Acct:[id number] Age/Sex: 55 / MADM Date: 04/29/25 Loc: HO.ED Attending Dr: Ordering Physician: Erik Montano DO Date of Service: 04/29/25 Procedure(s): CT head/brain wo IV con Accession Number(s): [id number] cc: Erik Montano DO; [facility] Report Number: [id number]: Total DLP = 672.00 mGy-cm EXAMINATION: CT [...] 04/29/25 1212 DD/ 1132 TD/TT: 04/29/25 1205 Side Guider: Result [facility] External Provider IMG CT PROCEDURES Final Result * POCT Urinalysis (04/04/2025 10:43 AM EDT) [...] 53,126 Urine 04/04/2025 10:4 3 AM EDT Result [facility] Francy Jennings MD POINT OF CARE TEST ENTER /EDIT ORDERABLES Final Result * Hepatitis C Antibody with Reflex to HCV, RNA, Quantitative, Real-Time PCR (01/06/2025 10:11 AM EDT) Hepatitis C Antibody Nonreactive Nonreactive [facility] Comment:Antibodies to HCV no t detected; does not exclude early acuteHCV infection. Blood Venous blood specimen / Unknown 01/06/2025 10:11 AM EDT 01/06/2025 11:07 AM EDT Result [facility] Hoa Dueñas TOUR BUS DRIVER LAB BLOOD ORDERABLES Final Resul t [facility] [address] [place] [address] [phone] * Lipid Panel, Standard (03/19/2024 9:34 AM EDT) Triglycerides 66 <150 mg/dL [facility] Comment:Desirable Triglyceri de: less than 150 mg/dLBorderline High Triglyceride 150-199 mg/dLHigh Triglyceride: 200-499 mg/dLVery High Triglyceride: greater than or equal to 5OO mg/dL Cholesterol 112 <200 mg/dL [facility] Comment:Desirable Cholestero l: less than 200 mg/dLBorderline High Cholesterol: 200-239 mg/dLHigh Cholesterol: greater than 239 mg/dL LDL Cholesterol Calculated 58 <100 mg/dL [facility] Comment:Desirable LDL: less than 100 mg/dLNear Optimal/Above Optimal LDL: 110- 129 mg/dLBorderline High LDL: 130-159 mg/dLHigh LDL: 160-189 mg/dLVery High LDL: greater than or equal to 190 mg/dL HDL Cholesterol 41 >40 mg/dL [facility] Comment:Desirable HDL: great er than 40 mg/dL Note: This HDL assay may give artificially low results in patients with liver disease. Blood Venous blood specimen / Unknown 03/19/2024 9:34 AM EDT 03/19/2024 11:12 AM EDT Roxana Gotti DO LAB BLOOD ORDERABLES Final R esult [facility] [address] [place] [address] [phone] * HIV-1 RNA, Quantitative, Real-Time PCR (03/22/2023 11:53 AM EDT) HIV RNA PCR Qn Copies NOT DETECTED NOT DETECTED copies/mL [facility] HIV RNA PCR Qn Log Copies NOT DETECTED NOT DETECTED [facility] Comment:Result Units: Log co pies/mLThis test was performed using Real-Time Polymerase ChainReaction.Reportable Range: 20 copies/mL to 10,000,000 copies/mL(1.30 log copies/mL to 7.00 log copies/mL).THIS TEST WAS PERFORMED AT:[facility] [place] [id number] GONG MD Blood Venous blood specimen / Unknown 03/22/2023 11:53 AM EDT 03/22/2023 1:32 PM EDT us Jessica Guillen OFFICE CLERK ROUTINE LAB BLOOD ORDERABLES Final Res ult [facility] [address] [place] [address] [phone] from Last 3 Months or Most Recently Relevant to Health Maintenance Insurance [facility] C3 DENTAL-[facility] MEDICAID STAND ADULT Care Teams Commissions Manager Relationship Specialty Start Date End Date [place] Haily, [facility] [address] [place] [address] PCP - General Family Medicine 05/01/22 Gregoria Brooks, CHAGO [address] [place] [address] Registered Nurse Family Medicine 06/15/25 Latricia Houser 06/16/25
--- OUTSIDE RECORDS SUMMARY | 2025-07-02 18:05 | XMS_ITS | Encounter Summary ---
Author Organization [employer] Address 75 [facility] 7t [place] [address] Care Team Providers Care Paper Plate Machine Tender Name Role Phone Clarisse [facility] Primary Care Provider Gregoria Brooks RN Unavailable [phone] Latricia Houser Unavailable Reason for Visit * Reason Onset Date Comments Med Refill 09/25/2023 Encounter Details Date Type Department Care Team (Late st Contact Info) Description 09/25/2023 Telephone [facility] MEDICINE [address] [place], [place] [phone] ClarisseHaily [facility] [address] [place], [place] [phone] Med Refill Social History Tobacco Use Types [...] to: [facility] - [place], [place] - [address] [facility] documented in this encounter Plan of Treatment Not on file documented as of this encounter Visit Diagnoses Not on filedocumented in this encounter Additional Health Concerns Assessment Noted Time PHQ-9 Depression Total Score: 0 08/15/20 3:52 PM EST documented as of this encounter Care Teams Paper Plate Machine Tender Relationship Specialty Start Date End Date Haily RobbANETA [address] [place] [address] PCP - General Family Medicine 05/01/22 Gregoria Brooks RN [address] [place] [address] Registered Nurse Family Medicine 06/15/25 Latricia Houser 06/16/25 documented as of this encounter
--- OUTSIDE RECORDS SUMMARY | 2025-07-02 18:05 | XMS_ITS | Encounter Summary ---
Author Organization [employer] Address 75 [facility] 7t [place] [address] Care Team Providers Care Traffic Expert Name Role Phone Haily Robb CHICK ROOM SUPERVISOR Primary Care Provider [phone] Gregoria Brooks RN Unavailable [phone] Latricia Houser Unavailable Reason for Visit * Reason Onset Date Comments Appointment Request 10/08/2023 Encounter Details Date Type Department Care Team (Late st Contact Info) Description 10/08/2023 Telephone [facility] MEDICINE 230 [place], [place] [phone] Haily Robb FNP 230 [place], [place] [phone] Appointment Request Social History Tobacco Use Types [...] gotten any better. Please contact pt at [phone] documented in this encounter Plan of Treatment Not on file documented as of this encounter Visit Diagnoses Not on filedocumented in this encounter Additional Health Concerns Assessment Noted Time PHQ-9 Depression Total Score: 0 08/15/20 23 3:52 PM EST documented as of this encounter Care Teams Traffic Expert Relationship Specialty Start Date End Date Haily Robb FNP [address] [place] [address] PCP - General Family Medicine 05/01/22 Gregoria Brooks RN [address] [place] [address] Registered Nurse Family Medicine 06/15/25 Latricia Houser 06/16/25 documented as of this encounter
--- OUTSIDE RECORDS SUMMARY | 2025-07-02 18:05 | XMS_ITS | Encounter Summary ---
Author Organization [employer] Address 75 [facility] 7t [place] [address] Care Team Providers Care Stitch Bonding Machine Tender Helper Name Role Phone Clarisse [facility] Primary Care Provider [phone] Gregoria Brooks RN Unavailable [phone] Latricia Houser Unavailable Reason for Visit * Reason Onset Date Comments Medication Question 01/16/2023 Encounter Details Date Type Department Care Team (Late st Contact Info) Description 01/16/2023 Telephone [facility] MEDICINE 230 [place], [place] [phone] [place] [facility] 230 [place], [place] [phone] Medication Question Social History Tobacco Use Types [...] documented as of this encounter Care Teams Stitch Bonding Machine Tender Helper Relationship Specialty Start Date End Date Haily Robb FNP [address] [place] [address] PCP - General Family Medicine 05/01/22 Gregoria Brooks, CHAGO [address] [place] [address] Registered Nurse Family Medicine 06/15/25 Latricia Houser 06/16/25 documented as of this encounter
--- OUTSIDE RECORDS SUMMARY | 2025-07-02 18:05 | XMS_ITS | Encounter Summary ---
Author Organization [employer] Address [address] [facility] [address] 7t [place] [address] Care Team Providers Care Sanitizer Name Role Phone Clarisse [facility] Primary Care Provider [phone] Gregoria Brooks RN Unavailable [phone] Latricia Houser Unavailable Reason for Visit * Reason Onset Date Comments Medication Question 08/24/2022 Encounter Details Date Type Department Care Team (Late st Contact Info) Description 08/24/2022 Telephone [facility] MEDICINE 230 [place], [place] [phone] [place] FNP 230 [place], [place] [phone] Medication Question Social History Tobacco Use Types [...] requesting a call back. States went to bulk picker his medication and they gave him vitamin C and he would like to know if he should be taking them again . Please call to clarify. documented in this encounter Plan of Treatment Not on file documented as of this encounter Visit Diagnoses Not on filedocumented in this encounter Care Teams Sanitizer Relationship Specialty Start Date End Date Haily Robb FNP 230 [place] [address] PCP - General Family Medicine 05/01/22 Gregoria Brooks RN [address] [place] [address] Registered Nurse Family Medicine 06/15/25 Latricia Houser 06/16/25 documented as of this encounter
--- OUTSIDE RECORDS SUMMARY | 2025-07-02 18:05 | XMS_ITS | Encounter Summary ---
Author Organization [employer] Address 75 [facility] 7t [place] [address] Care Team Providers Care Control Area Operator Name Role Phone [facility] Primary Care Provider [phone] Gregoria Brooks RN Unavailable [phone] Latricia Houser Unavailable Reason for Visit * Reason Comments Med Refill Encounter Details Date Type Department Care Team (Late st Contact Info) Description 09/05/2022 Telephone [facility] MEDICINE 230 [place], [place] [phone] [facility] 230 [place] [address] Med Refill Social History Tobacco Use Types [...] - 09/06/2022 8:18 AM EST TC via P/I#[id number], explained to pt that his Clonazepam was prescribed from his psychiatric providerat [address] [facility] [place] Krueger. Provided pt the phone number for the [facility] site and encouraged him to call them for all refills of his Clonazepam. Pt thanked scientific technical writer and said he understood. * Telephone Encounter - Yessi Cannon RN - 09/05/2022 3:04 PM EST Note on 08/02/22: Medication request:CLONAZEPAM Last visit 06/27/22. You sent a refill in June, it was picked up 07/12/22. He was originally getting this elsewhere. Not sure what you'd like to do. If you'll now be prescribing, then would you like him on MARKER MACHINE? documented in this encounter Plan of Treatment Not on file documented as of this encounter Visit Diagnoses Diagnosis Other specified anxiety disorders documented in this encounter Care Teams Control Area Operator Relationship Specialty Start Date End Date Haily Robb FNP [address] [place] [address] PCP - General Family Medicine 05/01/22 Gregoria Brooks RN [address] [place] [address] Registered Nurse Family Medicine 06/15/25 Latricia Houser 06/16/25 documented as of this encounter
--- OUTSIDE RECORDS SUMMARY | 2025-07-02 18:05 | XMS_ITS | Encounter Summary ---
Author Organization [employer] Address [address] [facility] [address] 7t [place] [address] Care Team Providers Care It Programmer Analyst Name Role Phone Clarisse [facility] Primary Care Provider [phone] Gregoria Brooks RN Unavailable [phone] Latricia Houser Unavailable Reason for Visit * Reason Comments Med Refill Encounter Details Date Type Department Care Team (Late st Contact Info) Description 07/08/2024 Refill [facility] MEDICINE 230 [place], [place] [phone] [place] Haily [facility] 230 [place], [place] [phone] Mixed anxiety and depressive disorder Social History [...] documented as of this encounter Care Teams It Programmer Analyst Relationship Specialty Start Date End Date Haily Robb FNP 230 [place] [address] PCP - General Family Medicine 05/01/22 Gregoria Brooks RN [address] [place] [address] Registered Nurse Family Medicine 06/15/25 Latricia Houser 06/16/25 documented as of this encounter
--- OUTSIDE RECORDS SUMMARY | 2025-07-02 18:05 | XMS_ITS ---
Author Organization [employer] Address 75 [facility] 7t [place] [address] Care Team Providers Care Oxyacetylene Welder Name Role Phone [place] BILLET HEATER OPERATOR Primary Care Provider [phone] Gregoria Brooks RN Unavailable [phone] Latricia Houser Unavailable CHW Complex Status:Enrolled (Active) Start date:06/16/2025 Enrollment date:06/16/2025 Enrollment reason:Referred by provider Overview Provider Referral- Patient needs assistance with getting reconnected with the [facility] Adult Day program. Please outreach to patient. Case Team Name Relationship Phone Latricia Houser(Responsible Staff) Continued Care and Services Coordination
--- OUTSIDE RECORDS SUMMARY | 2025-07-02 18:05 | XMS_ITS | Encounter Summary ---
Author Organization [employer] Address 75 [facility] 7t [place] [address] Care Team Providers Care Power Line Lineman Name Role Phone Haily Robb ROLL DOUGH DIVIDER Primary Care Provider [phone] Gregoria Brooks RN Unavailable [phone] Latricia Houser Unavailable Reason for Visit * Reason Comments Med Refill Encounter Details Date Type Department Care Team (Late st Contact Info) Description 10/29/2023 Refill [facility] 230 [place] [address] Name, MD Collins [address] [place], [place] [phone] Chronic neck pain Social History Tobacco Use [...] documented as of this encounter Care Teams Power Line Lineman Relationship Specialty Start Date End Date [place] ForkHaily FNP 230 [place] [address] PCP - General Family Medicine 05/01/22 Gregoria Brooks RN 230 [place] [address] Registered Nurse Family Medicine 06/15/25 Latricia Houser 06/16/25 documented as of this encounter
--- OUTSIDE RECORDS SUMMARY | 2025-07-02 18:05 | XMS_ITS ---
Author Organization [employer] Address 75 [facility] 7t [place] [address] Care Team Providers Care Experiential Therapist Name Role Phone [facility] Primary Care Provider [phone] Gregoria Brooks RN Unavailable [phone] Latricia Houser Unavailable CM Complex Status:Enrolled (Active) Start date:06/15/2025 Enrollment date:06/17/2025 Enrollment reason:Referred by provider Overview Provider Referral- Patient needs assistance with getting reconnected with the [facility] Adult Day program. Case Team Name Relationship Phone Gregoria Brooks RN(Responsible Staff) Registered Nurse Continued Care and Services Coordination
--- OUTSIDE RECORDS SUMMARY | 2025-07-02 18:05 | XMS_ITS | Encounter Summary ---
Author Organization [employer] Address 75 [facility] 7t [place] [address] Care Team Providers Care Dairy Husbandry Worker Name Role Phone Clarisse [facility] Primary Care Provider Gregoria Brooks RN Unavailable [phone] Latricia Houser Unavailable Reason for Visit * Reason Onset Date Comments Triage 09/20/2022 Encounter Details Date Type Department Care Team (Late st Contact Info) Description 09/20/2022 Telephone [facility] MEDICINE 230 [place], [place] [phone] ClarisseHaily [facility] 230 [place], [place] [phone] Triage Social History Tobacco Use Types Packs/Day [...] 09/20/2022 11:55 AM EST Triage call with [place] Information And Referral [place] [id number] Pt reports an area on back that [...] No high acuity concerns reported by caller BENGALI SPEAKER The caller accepted this outcome documented in this encounter Plan of Treatment Not on file documented as of this encounter Visit Diagnoses Not on filedocumented in this encounter Care Teams Dairy Husbandry Worker Relationship Specialty Start Date End Date Haily Robb FNP [address] [place] [address] PCP - General Family Medicine 05/01/22 Gregoria Brooks RN 230 [place] [address] Registered Nurse Family Medicine 06/15/25 Latricia Houser 06/16/25 documented as of this encounter
--- OUTSIDE RECORDS SUMMARY | 2025-07-02 18:05 | XMS_ITS | Encounter Summary ---
Author Organization [employer] Address 75 [facility] 7t [place] [address] Care Team Providers Care Patient Registration Clerk Name Role Phone Clarisse [facility] Primary Care Provider [phone] Gregoria Brooks RN Unavailable Latricia Houser Unavailable Reason for Visit * Reason Onset Date Comments triage 11/10/2022 Encounter Details Date Type Department Care Team (Late st Contact Info) Description 11/10/2022 Telephone [facility] MEDICINE 230 [place], [place] [phone] ClarisseHaily [facility] 230 [place], [place] [phone] triage Social History Tobacco Use Types Packs/Day [...] in office. Pt agrees to come into [facility] for exam. Pt also advised [...] question The caller accepted this outcome speaks mongolian documented in this encounter Plan of Treatment Not on file documented as of this encounter Visit Diagnoses Not on filedocumented in this encounter Additional Health Concerns Assessment Noted Time PHQ-9 Depression Total Score: 0 11/03/19 10:32 AM EST documented as of this encounter Care Teams Patient Registration Clerk Relationship Specialty Start Date End Date Haily Robb FNP [address] [place] [address] PCP - General Family Medicine 05/01/22 Gregoria Brooks RN [address] [place] [address] Registered Nurse Family Medicine 06/15/25 Latricia Houser 06/16/25 documented as of this encounter
--- OUTSIDE RECORDS SUMMARY | 2025-07-02 18:06 | XMS_ITS | Encounter Summary ---
Author Organization [employer] Address 75 [facility] 7t [place] [address] Care Team Providers Care Fish Liver Sorter Name Role Phone [facility] Primary Care Provider Gregoria Brooks RN Unavailable [phone] Latricia Houser Unavailable Reason for Visit * Reason Comments Care Management C3CM- FOLLOW UP CALL Encounter Details Date Type Department Care Team (Late st Contact Info) Description 07/01/2025 Patient Outreach [facility] MEDICINE 230 [place], [place] [phone] Clarisse Haily [facility] 230 [place] [address] Care Management (C3CM- FOLLOW UP CALL) Social History Tobacco Use Types Packs/Day Years [...] Progress Notes * Gregoria Brooks RN - 07/01/2025 10:29 AM EDT CM Gregoria Brooks RN placed outbound call to patient. Patient's name, and address confirmed. Patient states is doing well with no recent illnesses or emergency room visits. Patient advised that CM received a call from Family Coach Kat[facility] to inform that Patient has sched uled MRI for 07/17/25 at 10am at [facility]. Patient states is hoping to be able to tolerate completing exam if its with an open MRI machine. Patient informs CM that has upcoming appointment for ECHO At [facility] on 07/03. Patient could not recall appointment time. This internal communications writer will have coworker look in [facility] for details. Per [facility] patient is scheduled for US of Abdomen on 07/03 at 8:30am. Patient advised that CHW attempted to call patient to discuss PT-1. Patient states thatis not currently staying at listed address but does not want to give current address as alternate. Patient states partner should be available to bring Patient to upcoming appointments. Patient advised will set reminder call for patient appointments the day prior. No other specialists appointments per patient. No further questions or concerns. CM reinforced direct contact information or CHW for any additional questions or concerns. Education provided on Walk-In Urgent Care located in [facility] of [facility]. Patient provided with after-hours line for [facility], , which offer night time triage service and option to transfer to director oncology provider if needed. Patient verbalizes understanding, and able to repeat back to internal communications writer. A follow up call will be placed within 10 days, patientagrees with plan. documented in this encounter Plan of Treatment [...] documented as of this encounter Care Teams Fish Liver Sorter Relationship Specialty Start Date End Date [facility] 230 [place] [address] PCP - General Family Medicine 05/01/22 Gregoria Brooks RN 230 [place] [address] Registered Nurse Family Medicine 06/15/25 Latricia Houser 06/16/25 documented as of this encounter
--- OUTSIDE RECORDS SUMMARY | 2025-07-02 18:06 | XMS_ITS | Encounter Summary ---
Author Organization [employer] Address 75 [facility] 7t [place] [address] Care Team Providers Care Boat Finisher Name Role Phone Clarisse [facility] Primary Care Provider Gregoria Brooks RN Unavailable [phone] Latricia Houser Unavailable Reason for Visit * Reason Onset Date Comments Results 03/16/2023 Encounter Details Date Type Department Care Team (Late st Contact Info) Description 03/16/2023 Telephone [facility] MEDICINE 230 [place], [place] [phone] ClarisseHaily [facility] 230 [place], [place] [phone] Results Social History Tobacco Use Types Packs/Day [...] 03/20/2023 4:06 PM EDT Return T/C to [phone] for below message, No answer. LVM to call back on [phone]. * Telephone Encounter - Kelli Boucher - 03/16/2023 2:04 PM EDT Tc from pt requesting a call in regards to results to recent lab orders. Please contact pt at [phone] (Mongolian speaker) documented in this encounter Plan of Treatment Not on file documented as of this encounter Visit Diagnoses Not on filedocumented in this encounter Additional Health Concerns Assessment Noted Time PHQ-9 Depression Total Score: 0 01/26/20 23 3:38 PM EDT documented as of this encounter Care Teams Boat Finisher Relationship Specialty Start Date End Date Haily Robb FNP [address] [place] [address] PCP - General Family Medicine 05/01/22 Gregoria Brooks, CHAGO [address] [place] [address] Registered Nurse Family Medicine 06/15/25 Latricia Houser 06/16/25 documented as of this encounter
--- OUTSIDE RECORDS SUMMARY | 2025-07-02 18:06 | XMS_ITS | Encounter Summary ---
Author Organization [employer] Address 75 [facility] 7t [place] [address] Care Team Providers Care Geek Squad Agent Name Role Phone Haily Robb [facility] Primary Care Provider Gregoria Brooks RN Unavailable [phone] Latricia Houser Unavailable Reason for Visit * Reason Onset Date Comments Results 02/26/2025 Encounter Details Date Type Department Care Team (Late st Contact Info) Description 02/26/[address] [facility] MEDICINE 230 [place], [place] [phone] ClarisseHaily [facility] 230 [place], [place] [phone] Results Social History Tobacco Use Types Packs/Day [...] back regarding prior message. Contact pt at [phone] * Telephone Encounter - Claudette Ashley - 02/26/2025 12:59 PM EDT TC from pt requesting call back regarding Results. Type of results: Lab Date when done: 02/25/25 Facility: [facility] Contact pt at [phone] (kinyarwanda) documented in this encounter Plan of [...] documented as of this encounter Care Teams Geek Squad Agent Relationship Specialty Start Date End Date Haily Robb FNP 230 [place] [address] PCP - General Family Medicine 05/01/22 Gregoria Brooks RN 230 [place] [address] Registered Nurse Family Medicine 06/15/25 Latricia Houser 06/16/25 documented as of this encounter
--- OUTSIDE RECORDS SUMMARY | 2025-07-02 18:06 | XMS_ITS | Encounter Summary ---
Author Organization [employer] Address [address] [facility] [address] 7t [place] [address] Care Team Providers Care Sas Administrator Name Role Phone [place], [facility] Primary Care Provider [phone] Gregoria Brooks RN Unavailable [phone] Latricia Houser Unavailable Encounter Details Date Type Department Care Team (Late st Contact Info) Description 06/04/2025 Telephone [facility] MEDICINE 230 [place], [place] [phone] Delphos Ramer, [facility] 230 [place], [place] [phone] Social History Tobacco Use Types Packs/Day Years [...] documented as of this encounter Care Teams Sas Administrator Relationship Specialty Start Date End Date Haily Robb FNP [address] [place] [address] PCP - General Family Medicine 05/01/22 Gregoria Brooks RN [address] [place] [address] Registered Nurse Family Medicine 06/15/25 Latricia Houser 06/16/25 documented as of this encounter
--- OUTSIDE RECORDS SUMMARY | 2025-07-02 18:06 | XMS_ITS | Encounter Summary ---
Author Organization [employer] Address 75 [facility] 7t [place] [address] Care Team Providers Care Tunneling Machine Operator Name Role Phone Haily Robb CUSTODIAL MAINTENANCE WORKER Primary Care Provider Gregoria Brooks RN Unavailable [phone] Latricia Houser Unavailable Reason for Visit * Reason Comments Med Refill Encounter Details Date Type Department Care Team (Late st Contact Info) Description 04/02/2023 Refill [facility] MEDICINE 230 [place], [place] [phone] Juanjose Barton MD 230 [place], [place] [phone] Chronic pruritus Social History Tobacco Use Types [...] documented as of this encounter Care Teams Tunneling Machine Operator Relationship Specialty Start Date End Date Haily RobbANETA 230 [place] [address] PCP - General Family Medicine 05/01/22 Gregoria Brooks RN 230 [place] [address] Registered Nurse Family Medicine 06/15/25 Latricia Houser 06/16/25 documented as of this encounter
--- OUTSIDE RECORDS SUMMARY | 2025-07-02 18:06 | XMS_ITS | Encounter Summary ---
Author Organization [employer] Address [address] [facility] [address] 7t [place] [address] Care Team Providers Care Hip Hop Dance Instructor Name Role Phone Clarisse [facility] Primary Care Provider Gregoria Brooks RN Unavailable [phone] Latricia Houser Unavailable Reason for Visit * Reason Comments Med Refill Encounter Details Date Type Department Care Team (Late st Contact Info) Description 06/03/2025 Refill [facility] MEDICINE 230 [place], [place] [phone] [place] Haily [facility] 230 [place], [place] [phone] Epigastric pain Social History Tobacco Use Types [...] documented as of this encounter Care Teams Hip Hop Dance Instructor Relationship Specialty Start Date End Date Haily Robb FNP [address] [place] [address] PCP - General Family Medicine 05/01/22 Gregoria Brooks RN [address] [place] [address] Registered Nurse Family Medicine 06/15/25 Latricia Houser 06/16/25 documented as of this encounter
--- OUTSIDE RECORDS SUMMARY | 2025-07-02 18:06 | XMS_ITS | Encounter Summary ---
Author Organization [employer] Address [address] [facility] [address] 7t [place] [address] Care Team Providers Care Acid Maker Name Role Phone [facility] Primary Care Provider Gregoria Brooks RN Unavailable [phone] Latricia Houser Unavailable Reason for Visit * Reason Comments Med Refill Encounter Details Date Type Department Care Team (Late st Contact Info) Description 06/03/2025 Refill [facility] 230 [place], [place] [phone] [facility] 230 [place], [place] [phone] Restless leg Social History Tobacco Use Types [...] documented as of this encounter Care Teams Acid Maker Relationship Specialty Start Date End Date Haily Robb FNP [address] [place] [address] PCP - General Family Medicine 05/01/22 Gregoria Brooks RN [address] [place] [address] Registered Nurse Family Medicine 06/15/25 Latricia Houser 06/16/25 documented as of this encounter
--- OUTSIDE RECORDS SUMMARY | 2025-07-02 18:06 | XMS_ITS | Encounter Summary ---
Author Organization [employer] Address 75 [facility] 7t [place] [address] Care Team Providers Care Personnel Specialist Name Role Phone Clarisse [facility] Primary Care Provider [phone] Gregoria Brooks RN Unavailable [phone] Latricia Houser Unavailable Reason for Visit * Reason Onset Date Comments Nurse Triage 02/16/2023 Encounter Details Date Type Department Care Team (Late st Contact Info) Description 02/16/2023 Telephone [facility] MEDICINE 230 [place], [place] [phone] [facility] 230 [place], [place] [phone] Nurse Triage Social History Tobacco Use Types [...] - 02/23/2023 2:49 PM EDT T/C to [id number] through atokore interpreters id - [id number] for below message, pt. Verbally agreed and understood. * Telephone Encounter - Angela Whitman LPN - 02/16/2023 2:48 PM EDT Triage call returned to patient via [employer] [id number]. Patient called with concerns of Left eye burning and tearing at times with blurred vision. No irritant or object in eye at this time. Patient reports that he was seen some time ago in [facility] [place] and was given order to obtain eye drops for dry eye. He is angry that he had to pay for them out of pocket and that they did not help. Patient requesting specifically a referral and declines appts. in [facility] or with Team providers later in [...] seen in [facility] [place] and was told to use eye drops several months ago. Patient requesting only referral to Server Systems Administrator. Video visit not offered Positive Triage Question: [...] The caller accepted this outcome Patient speaks faroese documented in this encounter Plan of Treatment Not on file documented as of this encounter Visit Diagnoses Not on filedocumented in this encounter Additional Health Concerns Assessment Noted Time PHQ-9 Depression Total Score: 0 01/26/20 3:38 PM EDT documented as of this encounter Care Teams Personnel Specialist Relationship Specialty Start Date End Date SaffellHaily FNP 230 [place] [address] PCP - General Family Medicine 05/01/22 Gregoria Brooks RN 230 [place] [address] Registered Nurse Family Medicine 06/15/25 Latricia Houser 06/16/25 documented as of this encounter
--- OUTSIDE RECORDS SUMMARY | 2025-07-02 18:06 | XMS_ITS | Encounter Summary ---
Author Organization [employer] Address 75 [facility] 7t [place] [address] Care Team Providers Care Sales Product Manager Name Role Phone Clarisse [facility] Primary Care Provider [phone] Gregoria Brooks RN Unavailable [phone] Latricia Houser Unavailable Reason for Visit * Reason Comments Med Refill Encounter Details Date Type Department Care Team (Late st Contact Info) Description 01/01/2023 Refill [facility] MEDICINE 230 [place], [place] [phone] [place] Haily [facility] 230 [place], [place] [phone] Chronic sinusitis, unspecified location Social History Tobacco [...] as of this encounter Care Teams Sales Product Manager Relationship Specialty Start Date End Date Haily Robb FNP 230 [place] [address] PCP - General Family Medicine 05/01/22 Gregoria Brooks RN 230 [place] [address] Registered Nurse Family Medicine 06/15/25 Latricia Houser 06/16/25 documented as of this encounter
--- OUTSIDE RECORDS SUMMARY | 2025-07-02 18:06 | XMS_ITS | Encounter Summary ---
Author Organization [employer] Address 75 [facility] 7t [place] [address] Care Team Providers Care Carcass Washer Name Role Phone [place] [facility] Primary Care Provider Gregoria Brooks RN Unavailable Latricia Houser Unavailable Reason for Visit * Reason Comments Care Coordination C3 -Ronn ames telephone call outreach Encounter Details Date Type Department Care Team (Latest Contact Info) Description 06/30/2025 Patient Outreach [facility] MEDICINE 230 [place], [place] [phone] [facility] 230 [place] [address] Care Coordination (C3 TONE Houser telephone call outreach/) Social History Tobacco Use Types Packs/Day Years [...] as of this encounter Progress Notes * Latricia Houser - 06/30/2025 1:59 PM EDT CHW Latricia Houser placed outbound call to patient for follow up call on SDOH needs. No answer at thistime. LVM introducing herself from [facility] CM Department. Requested call back. CHW reinforced direct contact information or CM for any additional questionsor concerns and extended clinic hours on Mondays and Wednesdays, and Walk-In Urgent Care Located inLobby of [facility]. Patient provided with after-hours line for [facility], , which offer night time triage service and option to transfer to director business integration provider if needed. CHW will attempt another followup call within 10 days. documented in this encounter Plan of Treatment [...] documented as of this encounter Care Teams Carcass Washer Relationship Specialty Start Date End Date Haily Robb FNP 230 [place] [address] PCP - General Family Medicine 05/01/22 Gregoria Brooks, CAHGO 230 [place] [address] Registered Nurse Family Medicine 06/15/25 Latricia Houser 06/16/25 documented as of this encounter
--- OUTSIDE RECORDS SUMMARY | 2025-07-02 18:06 | XMS_ITS | Encounter Summary ---
Author Organization [employer] Address 75 [facility] 7t [place] [address] Care Team Providers Care Real Estate Coordinator Name Role Phone Haily Robb COL[employer] ARTIST Primary Care Provider Gregoria Brooks RN Unavailable [phone] Latricia Houser Unavailable Reason for Visit * Reason Comments Med Refill Encounter Details Date Type Department Care Team (Late st Contact Info) Description 04/02/2023 Refill [facility] 230 [place], [place] [phone] Hollis Rutledge MD 230 [place], [place] [phone] Social History Tobacco Use Types Packs/Day Years [...] of this encounter Care Teams Real Estate Coordinator Relationship Specialty Start Date End Date Clarisse ANETA Johansen 230 [place] [address] PCP - General Family Medicine 05/01/22 Gregoria Brooks RN 230 [place] [address] Registered Nurse Family Medicine 06/15/25 Latricia Houser 06/16/25 documented as of this encounter
--- OUTSIDE RECORDS SUMMARY | 2025-07-02 18:06 | XMS_ITS | Clinical Summary ---
Author Organization [facility] Address [address] [place] [address] Phone Care Team Providers Care Waste Baler Name Role Phone [facility] Primary Care Provider [phone] Medications polyethylene glycol (Golytely) 236-22.74-6.74 -5.86 gram [...] Phone Billing Address Personal/Family Self 1970 [address] [facility] [address] [place] [address] MEDICA[place] Care Teams Waste Baler Relationship Specialty Start Date End Date [place] [address] [address] PCP - General 05/20/24
--- OUTSIDE RECORDS SUMMARY | 2025-07-02 18:06 | XMS_ITS | Encounter Summary ---
Author Organization [employer] Address 75 [facility] 7t [place] [address] Care Team Providers Care Maintenance Service Supervisor Name Role Phone Haily Robb [facility] Primary Care Provider [phone] Gregoria Brooks RN Unavailable [phone] Latricia Houser Unavailable Encounter Details Date Type Department Care Team (Latest Contact Info) Description 06/01/2022 Abstract [facility] CONVERSIONS Dental, Provider, DDS Social [...] on filedocumented in this encounter Care Teams Maintenance Service Supervisor Relationship Specialty Start Date End Date Haily RobbANETA 230 [place] [address] PCP - General Family Medicine 05/01/22 Gregoria Brooks, CHAGO 230 [place] [address] Registered Nurse Family Medicine 06/15/25 Latricia Houser 06/16/25 documented as of this encounter
--- OUTSIDE RECORDS SUMMARY | 2025-07-02 18:06 | XMS_ITS | Encounter Summary ---
Author Organization [employer] Address 75 [facility] 7t [place] [address] Care Team Providers Care Package Dyeing Machine Operator Name Role Phone Haily Robb [facility] Primary Care Provider [phone] Gregoria Brooks RN Unavailable [phone] Latricia Houser Unavailable Encounter Details Date Type Department Care Team (Latest Contact Info) Description 06/16/[address] [facility] CONVERSIONS Dental, Provider, DDS Social History [...] on filedocumented in this encounter Care Teams Package Dyeing Machine Operator Relationship Specialty Start Date End Date Haily RobbANETA 230 [place] [address] PCP - General Family Medicine 05/01/22 Gregoria Brooks, CHAGO 230 [place] [address] Registered Nurse Family Medicine 06/15/25 Latricia Houser 06/16/25 documented as of this encounter
--- OUTSIDE RECORDS SUMMARY | 2025-07-02 18:06 | XMS_ITS | Encounter Summary ---
Author Organization [employer] Address 75 [facility] 7t [place] [address] Care Team Providers Care Welding Machine Operator Submerged Arc Name Role Phone Clarisse Haily PARTS COUNTER CLERK Primary Care Provider [phone] Gregoria Brooks RN Unavailable [phone] Latricia Houser Unavailable Encounter Details Date Type Department Care Team (Late st Contact Info) Description 07/02/2025 Orders Only GENERIC EXTERNAL DATA [...] TROPONIN I Routine 07/02/2025 10:18 AM EDT CBC WITH AUTO DIFFERENTIAL Routine 07/02/2025 10:18 AM EDT BASIC METABOLIC PANEL Routine 07/02/2025 10:18 AM EDT documented in this encounter Results * XR Chest 1 View (07/02/2025 3:55 PM EDT) Anatomical Region Laterality Modality Chest Radiographic Cecelia ging 07/02/2025 3:55 PM EDT Narrative 07/02/2025 4:06 PM EDT [address] [address] XRay Report Signed Patient: John Fitzpatrick MR#: [id number] : 1970 Acct:[id number] Age/Sex: 55 / M ADM Date: 07/02/25 Loc: .ED Attending Dr: Ordering Physician: Rah Dhaliwal Date of Service: 07/02/25 Procedure(s): XR chest 1V Accession Number(s): [id number] cc: Rah Dhaliwal; [facility] Reason for Exam: Couging. pnuemonia? EXAMINATION: XR [...] in OV> 07/02/25 1603 DD/ 1555 TD/TT: 07/02/25 1557 Scalloper: LUIS ANTONIO Procedure Note Donotuseinterpreter, Image - 07/02/[address] [address] XRay Report Signed Patient: John Fitzpatrick AMR#: [id number] : 1970Acct:[id number] Age/Sex: 55 / MADM Date: 07/02/25 Loc: .ED Attending Dr: Ordering Physician: Rah Dhaliwal Date of Service: 07/02/25 Procedure(s): XR chest 1V Accession Number(s): [id number] cc: Rah Dhaliwal; Haily Robb Reason for Exam: Couging. pnuemonia? EXAMINATION: XR [...] in OV> 07/02/25 1603 DD/ 1555 TD/TT: 07/02/25 1557 Scalloper: LUIS ANTONIO [facility] External Provider IMG XR PROCEDURES Final Result * High Sensitivity Troponin I (07/02/2025 3:54 PM EDT) Pathologist [facility] TROPONIN I HIGH SENSITIVITY <2.7 <3.5 - 35.0 ng/L [facility] Comment:The Tello high sens itivity Troponin-I results should beused in conjunction with other diagnostic information suchas ECG, clinical observations and information, and patientsymptoms to aid in the diagnosis of VT. 07/02/2025 3:54 PM EDT 07/02/2025 3:57 PM EDT Generic External Data Provider LAB BLOOD ORDERAB LES Final Result [facility] [address] [place] [phone] * High Sensitivity Troponin I (07/02/2025 10:18 AM EDT) TROPONIN I HIGH SENSITIVITY <2.7 <3.5 - 35.0 ng/L [facility] Comment:The Tello high sens itivity Troponin-I results should beused in conjunction with other diagnostic information suchas ECG, clinical observations and information, and patientsymptoms to aid in the diagnosis of VT. 07/02/2025 10:1 8 AM EDT 07/02/2025 10:21 AM EDT us Generic External Data Provider LAB BLOOD ORDERAB LES Final Result [facility] [address] [place] [address] [phone] * (ABNORMAL) Basic Metabolic Panel (07/02/2025 10:18 AM EDT) Sodium 142 135 - 145 mmol/L [facility] Potassium 4.0 3.3 - 5.1 mmol/L [facility] Chloride 105 96 - 108 mmol/L [facility] Carbon Dioxide 31(H) 22 - 29 mmol/L [facility] Anion Gap 10(L) 12 - 20 [facility] Urea Nitrogen (BUN) 12 9 - 16 mg/dL [facility] Creatinine, Serum 0.93 0.5 - 1.4 mg/dL [facility] Creatinine Clr Calc Pharmacy 75.9 [facility] Comment:eGFR (calculated fro m the MDRD study equation) and eCrCl(calculated from the Cockcroft-Gault equation) are based ondifferent parameters and may not yield comparable results.If eCrCl result is absurd, please check patient'sheight/weight. Estimated Glomerular Filt Rate >60 [facility] Comment:Chronic Kidney Disea se: Estimated GFR < 60 mL/min/1.37y1Ntlwui Kidney Disease: Estimated GFR < 15 mL/min/1.73m2 Glucose 98 60 - 115 mg/dL [facility] Calcium 9.4 8.4 - 10.2 mg/dL [facility] 07/02/2025 10:1 8 AM EDT 07/02/2025 10:21 AM EDT us Generic External Data Provider LAB BLOOD ORDERAB LES Final Result [facility] [address] [place], [place] [phone] * (ABNORMAL) CBC auto differential (07/02/2025 10:18 AM EDT) White Blood Count 4.8 4.8 - 10.8 X10*3/uL [facility] Red Blood Count 4.42(L) 4.60 - 5.80 X10*6/uL [facility] Hemoglobin 14.4 14.0 - 18.0 g/dl [facility] Hematocrit 42.9 42.0 - 52.0 % [facility] Mean Corpuscular Volume 97.1 80.0 - 98.0 fL [facility] Mean Corpuscular Hemoglobin 32.6 27.0 - 33.0 pg [facility] Mean Corpuscular HGB Conc 33.6 31.0 - 36.0 g/dl [facility] Red Cell Distribution Width 11.9 11.0 - 16.0 % [facility] Platelet Count 201 160 - 400 X10*3/uL [facility] Mean Platelet Volume 10.1 9.4 - 12.4 fL [facility] Neutrophils Percent Auto 71.0 45 - 73 % [facility] Imm Gran Pct Auto 0.2 0.0 - 0.4 % [facility] Lymphocytes Percent Auto 18.8(L) 20 - 40 % [facility] Monocytes Percent Auto 7.5 2 - 11 % [facility] Eosinophils Percent Auto 1.9 0 - 4 % [facility] Basophils Percent Auto 0.6 0 - 2 % [facility] NRBC Pct Auto 0.0 0.0 - 0.2 /100WBC [facility] Neutrophils Absolute Auto 3.4 2.0 - 8.3 x10*3/uL [facility] Imm Gran Abs Auto 0.01 0.00 - 0.03 X10*3/uL [facility] Lymphocytes Absolute Auto 0.9(L) 1.2 - 4.9 X10*3/uL [facility] Monocytes Absolute Auto 0.4 0.1 - 1.2 X10*3/uL [facility] Eosinophils Absolute Auto 0.1 0.0 - 0.4 X10*3/uL [facility] Basophils Absolute Auto 0.0 0.0 - 0.2 X10*3/uL [facility] NRBC Abs Auto 0.000 0.0 - 0.012 X10*3/uL [facility] 07/02/2025 10:1 8 AM EDT 07/02/2025 10:21 AM EDT us Generic External Data Provider LAB BLOOD ORDERAB LES Final Result [facility] [address] [place] [address] [phone] documented in this encounter Visit Diagnoses Not on filedocumented in this encounter Additional Health Concerns Assessment Noted Time PHQ-9 Depression Total Score: 8 06/17/20 25 11:48 AM EDT documented as of this encounter Care Teams Welding Machine Operator Submerged Arc Relationship Specialty Start Date End Date Haily Robb FNP 230 [place] [address] PCP - General Family Medicine 05/01/22 Gregoria Brooks RN 230 [place] [address] Registered Nurse Family Medicine 06/15/25 Latricia Houser 06/16/25 documented as of this encounter
--- OUTSIDE RECORDS SUMMARY | 2025-07-02 18:06 | XMS_ITS | Encounter Summary ---
Author Organization [employer] Address [address] [facility] [address] 7t [place] [address] Care Team Providers Care Tugboat Operator Name Role Phone Clarisse [place] [facility] Primary Care Provider [phone] Gregoria Brooks RN Unavailable [phone] Latricia Houser Unavailable Reason for Visit * Reason Comments Med Refill Encounter Details Date Type Department Care Team (Late st Contact Info) Description 08/28/2024 Refill [facility] MEDICINE 230 [place], [place] [phone] [place] Haily [facility] 230 [place], [place] [phone] Mixed anxiety and depressive disorder Social History [...] documented as of this encounter Care Teams Tugboat Operator Relationship Specialty Start Date End Date Haily Robb FNP [address] [place] [address] PCP - General Family Medicine 05/01/22 Gregoria Brooks RN [address] [place] [address] Registered Nurse Family Medicine 06/15/25 Latricia Houser 06/16/25 documented as of this encounter
--- OUTSIDE RECORDS SUMMARY | 2025-07-02 18:06 | XMS_ITS | Encounter Summary ---
Author Organization [employer] Address [address] [facility] [address] 7t [place] [address] Care Team Providers Care Piping Design Specialist Name Role Phone [place] [facility] Primary Care Provider Gregoria Brooks RN Unavailable [phone] Latricia Houser Unavailable Reason for Visit * Reason Comments Med Refill Encounter Details Date Type Department Care Team (Late st Contact Info) Description 05/31/2025 Refill [facility] 230 [place], [place] [phone] [facility] 230 [place], [place] [phone] Restless leg Social History Tobacco Use Types [...] documented as of this encounter Care Teams Piping Design Specialist Relationship Specialty Start Date End Date Haily Robb FNP [address] [place] [address] PCP - General Family Medicine 05/01/22 Gregoria Brooks RN [address] [place] [address] Registered Nurse Family Medicine 06/15/25 Latricia Houser 06/16/25 documented as of this encounter
--- OUTSIDE RECORDS SUMMARY | 2025-07-02 18:06 | XMS_ITS | Encounter Summary ---
Author Organization [employer] Address [address] [facility] 7t [place] [address] Care Team Providers Care Material Planning Analyst Name Role Phone [place], [facility] Primary Care Provider [phone] Gregoria Brooks RN Unavailable [phone] Latricia Houser Unavailable Reason for Visit * Reason Onset Date Comments Med Refill 12/13/2023 Encounter Details Date Type Department Care Team (Late st Contact Info) Description 12/13/2023 Telephone [facility] MEDICINE [address] [place], [place] [phone] ClarisseHaily [facility] [address] [place], [place] [phone] Med Refill Social History Tobacco Use Types [...] EDT Medication was sent to [facility] on 11/09/23 with 2 refills. * Telephone Encounter - Christine Taylor - 12/13/2023 10:19 AM EDT TC from pt requesting medication refill. Medications needing refill : melatonin 5 MG tablet To be sent to: [facility] - [place], [place] - [address] documented in this encounter Plan of Treatment Not on file documented as of this encounter Visit Diagnoses Not on filedocumented in this encounter Additional Health Concerns Assessment Noted Time PHQ-9 Depression Total Score: 0 08/15/20 23 3:52 PM EST documented as of this encounter Care Teams Material Planning Analyst Relationship Specialty Start Date End Date Haily Robb, TOBACCO FARMWORKER [address] [place] [address] PCP - General Family Medicine 05/01/22 Gregoria Brooks RN [address] [place] [address] Registered Nurse Family Medicine 06/15/25 Latricia Houser 06/16/25 documented as of this encounter
--- OUTSIDE RECORDS SUMMARY | 2025-07-02 18:06 | XMS_ITS | Encounter Summary ---
Author Organization [employer] Address [address] [facility] 7t [place] [address] Care Team Providers Care Resource Technician Name Role Phone SeatonHaily molina CLAMP JIG ASSEMBLER Primary Care Provider Gregoria Brooks RN Unavailable [phone] Latricia Houser Unavailable Reason for Visit * Reason Onset Date Comments Nurse Triage 02/11/2024 Encounter Details Date Type Department Care Team (Late st Contact Info) Description 02/11/2024 Telephone [facility] MEDICINE [address] [place], [place] [phone] SeatonHialy FNP [address] [place], [place] [phone] Nurse Triage Social History Tobacco Use Types [...] EDT Triage call returned to patient with [place] [employer] interpreter [id number]. Patient reports ongoing issue withleft eye and [...] and she would like him referred to [facility] Construction Site Crossing Guard. No diagnosis in chart.Advised of [facility] for evaluation today. Lab [...] Other Override Notes: Being treated with eyelet operator with appt coming in 03/11/24 Video visit not offered Positive Triage Question: * Patient wants to be seen * All higher-acuity triage questions were negative * Telephone Encounter - Christine Taylor - 02/11/2024 10:03 AM EDT Symptom: Eye - Pus or Discharge Outcome: Schedule a same-day appointment or talk to a nurse or provider today Reason: involuntary movements The caller accepted this outcome Bahamian speaker documented in this encounter Plan of [...] documented as of this encounter Care Teams Resource Technician Relationship Specialty Start Date End Date Haily Robb FNP [address] [place] [address] PCP - General Family Medicine 05/01/22 Gregoria Brooks RN [address] [place] [id number] Registered Nurse Family Medicine 06/15/25 Latricia Houser 06/16/25 documented as of this encounter
[2025-07-02 18:34] VITALS: BP 129/64; PULSE 82; RESP 16; TEMP 36.9; O2SAT 97
--- NOTE | 2025-07-02 19:39 | ED.GENADULT ---
HPI - General Adult General Chief complaint: Headache Stated complaint: headache Time Seen by Provider: 07/02/25 18:47 Source: patient Mode of arrival: ambulatory Limitations: no limitations History of Present Illness ED Provider: Dr. Bell HPI narrative: 55-year-old male history of tuberculosis presented hospital today for evaluation. That stated that he has been having have a headache for the past 3 days and chest pain having on and off fever. Patient took some Tylenol prior to arrival. Patient is complaining of some sore throat as well. The patient is complaining of left sharp chest pain. Patient stated that daughter in [place] has bronchitis. He stated his had some heart condition recently. Related Data Home Medications ?Medication ?Instructions ?Recorded ?Confirmed cholecalciferol (vitamin D3) 50 50 mcg PO DAILY 06/30/20 06/22/25 mcg (2,000 unit) capsule (Vitamin D3) melatonin 5 mg tablet 5 - 10 mg PO BEDTIME PRN 01/12/23 06/22/25 methadone 40 mg soluble tablet 29 mg PO DAILY 02/28/25 06/22/25 pantoprazole 40 mg tablet,delayed 40 mg PO DAILY 04/10/25 06/22/25 release fluvoxamine 25 mg tablet 25 mg PO BEDTIME 06/22/25 06/22/25 polyethylene glycol 3350 17 gram 17 g PO DAILY 06/22/25 06/22/25 oral powder packet Previous Rx's ?Medication ?Instructions ?Recorded syringe (disposable) 3 mL (BD #25 ea 11/27/24 Luer-Vira Syringe) ibuprofen 400 mg tablet 400 mg PO Q6H PRN pain #14 tabs 12/12/24 docusate sodium 100 mg capsule 100 mg PO BEDTIME PRN constipation 02/27/25 #90 caps famotidine 20 mg tablet 20 mg PO DAILY PRN GERD #90 tabs 02/27/25 sucralfate 1 gram tablet 1 g PO TID PRN Epigastric 04/05/25 discomfort, gastritis #60 tabs tamsulosin 0.4 mg capsule 0.4 mg PO BEDTIME 90 days #90 caps 04/07/25 testosterone cypionate 200 mg/mL 200 mg IM Q2W 28 days #2 mL 04/07/25 intramuscular oil bisacodyl 5 mg tablet,delayed 20 mg (4 x 5 mg) PO ONCE 1 day #4 04/10/25 release (Dulcolax (bisacodyl)) tabs polyethylene glycol 3350 17 238 g PO ONCE #238 grams 04/10/25 gram/dose oral powder (Miralax) needle (disp) 22 G 22 gauge x 1 #30 ea 04/21/25 needle (disp) 18 G 18 gauge x 1 #30 ea 04/23/25 (BD Regular Bevel [place]) cyclobenzaprine 5 mg tablet 5 mg PO TID PRN muscle spasm 5 04/29/25 days #20 tabs prednisone 20 mg tablet 40 mg (2 x 20 mg) PO DAILY 5 days 04/29/25 #10 tabs docusate calcium 240 mg capsule 240 mg PO DAILY #30 caps 06/13/25 polyethylene glycol 3350 17 17 g PO DAILY #119 grams 06/13/25 gram/dose oral powder (Miralax) acetaminophen 500 mg tablet 1,000 mg (2 x 500 mg) PO Q8H 10 07/02/25 (Tylenol Extra Strength) days #60 tabs azithromycin 250 mg tablet See Rx Instructions PO .COMPLEX #6 07/02/25 tabs ixdcmfpchy-uewyiodxmwyak-ilcprjld 1 cap PO DAILY PRN pain #10 caps 07/02/25 50 mg-325 mg-40 mg capsule Allergies Allergy/AdvReac Type Severity Reaction Status Date / Time SEAFOOD Allergy Severe ANAPHYLAXIS Uncoded 07/02/25 09:51 shellfish Allergy Severe Anaphylaxis Uncoded 07/02/25 09:51 Review of Systems Review of Systems: Pertinent review of systems as mentioned in HPI. All other system otherwise negative. [facility] Past Medical History [facility] Narrative: Medical history as mentioned in HPI Medical History Constipation Anemia Hx of substance abuse Smoker History of Helicobacter pylori infection Spinal pain Hypogonadism Erectile dysfunction Hx: UTI (urinary tract infection) BPH (benign prostatic hyperplasia) Hx of hepatitis C GERD (gastroesophageal reflux disease) Anxiety and depression HTN (hypertension) Murmur Surgical History Hx of cystoscopy Family History Family History Mother Diabetes Social History Social History (Reviewed 06/22/25 @ 10:54 by BARBY George Alcohol intake: former Patient Tobacco Use Status: Current everyday Tobacco user Substance Use Type: Crack/Cocaine and Heroin Current occupational status: unemployed Physical Exam ED Exam Exam: General: Pleasant, no distress, interacting appropriately Head: Normacephalic, atraumatic ENT: oral mucosa moist, neck supple, no tracheal deviation Cardiovascular: regular rate, regular rhythm, no murmurs, rubbing, gallops Respiratory: CTAB, no wheeze, rales, rhonchi Neurological: Awake and alert, no facial droop noted Skin: Warm and dry Psychiatric: Appropriate mood and thoughts Vital Signs: Vital Signs - 24 hr 07/02/25 09:45 07/02/25 18:34 Temperature 97.6 F 98.4 F Pulse Rate 88 82 Respiratory Rate 16 16 Blood Pressure 115/66 129/64 Pulse Oximetry 98 97 Oxygen Delivery Method Room Air Room Air BMI result Body Mass Index 20.5 Medical Decision Making Medical Decision Making [facility] Narrative: This is a 55-year-old male presented hospital today for sore throat, fever his mom he can do that is my chest pain. CBC is unremarkable. Patient's chemistry signs of significant abnormality. Troponins negative x2. EKG did not show any signs of STEMI. Chest x-ray is clear. I do not think patient has active TB. Patient will be discharged at this time. Fioricet will be prescribed, Tylenol will be prescribed as well. We will also plan to send the patient home with a Z-Christian. Differential Diagnosis Differential Diagnoses: The differential diagnosis associated with the presentation includes URI, bronchitis, pneumonia Lab Data [facility] Lab Attestation statement: I reviewed the patient's lab results. 07/02/25 10:18 07/02/25 10:18 Labs: Lab Results 07/02/25 07/02/25 Range/Units 10:18 15:54 WBC 4.8 (4.8-10.8) X10*3/uL RBC 4.42 L (4.60-5.80) X10*6/uL Hgb 14.4 (14.0-18.0) g/dl Hct 42.9 (42.0-52.0) % MCV 97.1 (80.0-98.0) fL MCH 32.6 (27.0-33.0) pg MCHC 33.6 (31.0-36.0) g/dl RDW 11.9 (11.0-16.0) % Plt Count 201 (160-400) X10*3/uL MPV 10.1 (9.4-12.4) fL Immature Gran % (Auto) 0.2 (0.0-0.4) % Neut % (Auto) 71.0 (45-73) % Lymph % (Auto) 18.8 L (20-40) % Phillips % (Auto) 7.5 (2-11) % Eos % (Auto) 1.9 (0-4) % Baso % (Auto) 0.6 (0-2) % Lymph # (Auto) 0.9 L (1.2-4.9) X10*3/uL Phillips # (Auto) 0.4 (0.1-1.2) X10*3/uL Eos # (Auto) 0.1 (0.0-0.4) X10*3/uL Baso # (Auto) 0.0 (0.0-0.2) X10*3/uL Abs Immat Gran (auto) 0.01 (0.00-0.03) X10*3/uL Absolute Neuts (auto) 3.4 (2.0-8.3) x10*3/uL Absolute Nucleated RBC 0.000 (0.0-0.012) X10*3/uL Nucleated RBC % (auto) 0.0 (0.0-0.2) /100WBC Sodium 142 (135-145) mmol/L Potassium 4.0 (3.3-5.1) mmol/L Chloride 105 (96-108) mmol/L Carbon Dioxide 31 H (22-29) mmol/L Anion Gap 10 L (12-20) BUN 12 (9-16) mg/dL Creatinine 0.93 (0.5-1.4) mg/dL Estim Creat Clear Calc 75.9 Estimated GFR > 60 Random Glucose 98 (60-115) mg/dL Calcium 9.4 (8.4-10.2) mg/dL Troponin I High Sens < 2.7 < 2.7 (<3.5-35.0) ng/L Independent Interpretation I performed an independent interpretation of an: EKG and Plain X-Ray Radiology Impression Discussion of test interpretation with radiology: I have reviewed the radiologist's reading. Prescription Management I considered prescription management with: Antibiotic Discharge Plan Discharge Clinical Impression: Upper respiratory infection Qualifiers: URI type: unspecified URI Qualified Code(s): J06.9 - Acute upper respiratory infection, unspecified Patient Disposition: Home, Self-Care Instructions: Upper Respiratory Infection (ED) Prescriptions: New azithromycin 250 mg tablet See Rx Instructions .ROUTE .COMPLEX Qty: 6 0RF Rx Instructions: For 250 mg dose pack: take 500 mg today (day 1), then 250 mg for 4 days (days 2-5) ggrmywxtyc-racxvfncmgicu-pjke 50-325-40 mg capsule 1 cap PO DAILY PRN (Reason: pain) Qty: 10 0RF acetaminophen [Tylenol Extra Strength] 500 mg tablet 1,000 mg PO Q8H 10 Days Qty: 60 0RF No Action (DME) syringe (disposable) [BD Luer-Vira Syringe] 3 mL syringe See Rx Instructions .Route Qty: 25 0RF Rx Instructions: As directed 1 syringe [id number] 2 syringes total per month for T injection (DME) needle (disp) 22 G 22 gauge x 1 needle See Rx Instructions .Route Qty: 30 0RF Rx Instructions: As directed to inject testosterone (DME) needle (disp) 18 G [BD Regular Bevel [place]] 18 gauge x 1 needle See Rx Instructions .Route Qty: 30 0RF Rx Instructions: As directed to draw testosterone cholecalciferol (vitamin D3) [Vitamin D3] 50 mcg (2,000 unit) Capsule 50 mcg PO DAILY methadone 40 mg tablet,soluble 29 mg PO DAILY ibuprofen 400 mg tablet 400 mg PO Q6H PRN (Reason: pain) Qty: 14 0RF sucralfate 1 gram tablet 1 g PO TID PRN (Reason: Epigastric discomfort, gastritis) Qty: 60 0RF cyclobenzaprine 5 mg tablet 5 mg PO TID PRN (Reason: muscle spasm) 5 Days Qty: 20 0RF prednisone 20 mg tablet 40 mg PO DAILY 5 Days Qty: 10 0RF docusate calcium 240 mg capsule 240 mg PO DAILY Qty: 30 0RF polyethylene glycol 3350 [Miralax] 17 gram/dose powder 17 g PO DAILY Qty: 119 0RF polyethylene glycol 3350 17 gram powder in packet 17 g PO DAILY fluvoxamine 25 mg tablet 25 mg PO BEDTIME pantoprazole 40 mg tablet,delayed release (DR/EC) 40 mg PO DAILY bisacodyl [Dulcolax (bisacodyl)] 5 mg tablet,delayed release (DR/EC) 20 mg PO ONCE 1 Days Qty: 4 0RF Rx Instructions: Take four tablets pre colonoscopy instructions polyethylene glycol 3350 [Miralax] 17 gram/dose powder 238 g PO ONCE Qty: 238 0RF Rx Instructions: per colonoscopy prep instructions melatonin 5 mg tablet 5 - 10 mg PO BEDTIME PRN famotidine 20 mg tablet 20 mg PO DAILY PRN (Reason: GERD) Qty: 90 1RF Rx Instructions: Take one tablet daily at bedtime as needed docusate sodium 100 mg capsule 100 mg PO BEDTIME PRN (Reason: constipation) Qty: 90 0RF Rx Instructions: Take one tablet at bedtime as needed for constipation tamsulosin 0.4 mg capsule 0.4 mg PO BEDTIME 90 Days Qty: 90 1RF testosterone cypionate 200 mg/mL oil 200 mg IM Q2W 28 Days Qty: 2 5RF Print Language: Faroese
[2025-07-02 19:50] VITALS: BP 129/64; PULSE 82; RESP 16; TEMP 36.9; O2SAT 97
== END 2025-07-02 19:56 | disposition home or self-care (01) ==
PROVIDERS: Physician Assistant; Emergency Provider Student in an Organized Health Care Education/Training Program; PCP Registered Nurse
DX: J06.9 Acute upper respiratory infection, unspecified (principal); R51.9 Headache, unspecified; R07.9 Chest pain, unspecified; R05.9 Cough, unspecified; R00.2 Palpitations; R94.31 Abnormal electrocardiogram [ECG] [EKG]; I10 Essential (primary) hypertension
CPT/HCPCS: 36415; 71045; 80048; 84484; 85025; 93005; 99283

== ENCOUNTER → 2025-07-02 09:52 | Outpatient (BNV) | payer MEDICAID, SELFPAY | PROVIDERS: Emergency Provider Student in an Organized Health Care Education/Training Program; PCP Registered Nurse; Visit Provider Internal Medicine | DX: R94.31 Abnormal electrocardiogram [ECG] [EKG] (principal); R00.2 Palpitations | CPT/HCPCS: 93010 ==

== ENCOUNTER → 2025-07-02 15:47 | Outpatient (BNV) | payer MEDICAID, SELFPAY | PROVIDERS: PCP Registered Nurse; Visit Provider Radiology Diagnostic Radiology | DX: R05.9 Cough, unspecified (principal) | CPT/HCPCS: 71045 ==

== ENCOUNTER 2025-07-03 08:21 | Outpatient (REF) | payer MEDICAID, SELFPAY ==
--- NOTE | ~2025-07-03 | US_ITS ---
CLINICAL HISTORY: epigastric pain US abdomen complete with color Doppler Comparison: CT/SR - CT ABDOMEN PELVIS W IV CON - 03/01/25 19:[address] - CT ABDOMEN PELVIS W IV CON - 03/01/25 19:08 EDT CR - XR KUB - 03/01/25 16:11 EDT US/SR - US ABDOMEN LIMITED - 03/15/22 14:39 EDT Findings: The visualized pancreas, aorta, and inferior vena cava are unremarkable. Liver normal size and echotexture. Right lobe 13.9 cm length. No focal hepatic masses. Common duct 5.0 mm diameter. Physiologic distention of the gallbladder. No gallstones or sludge. No gallbladder wall thickening. No pericholecystic fluid. A sonographic rowe's sign was not comminuted by the technologist Main portal vein antegrade. Right kidney normal size, 9.8 cm in length. Normal cortical width and echotexture. No solid or cystic renal masses. No nephrolithiasis. No hydronephrosis. Left kidney normal, 9.8 cm in length. Normal cortical width and echotexture. No solid or cystic renal masses. No nephrolithiasis. No hydronephrosis. Spleen measures 7.8 cm. No splenic masses. No ascites. No lymphadenopathy. Impression: 1. Normal abdominal ultrasound. This document has been electronically signed by: Ac Ramos MD on 07/03/2025 21:12:42
--- OUTSIDE RECORDS SUMMARY | 2025-07-03 08:28 | XMS_ITS | Encounter Summary ---
Author Organization [employer] Address [address] [facility] 7t [place] [address] Care Team Providers Care Croze Cutter Name Role Phone Haily Robb PRESCHOOL ASSISTANT TEACHER Primary Care Provider Gregoria Brooks RN Unavailable [phone] Latricia Houser Unavailable Reason for Visit * Reason Onset Date Comments Appointment Request 10/08/2023 Encounter Details Date Type Department Care Team (Late st Contact Info) Description 10/08/2023 Telephone [facility] MEDICINE [address] [place], [place] [phone] Haily Robb FNP [address] [place], [place] [phone] Appointment Request Social History Tobacco Use Types [...] gotten any better. Please contact pt at [phone] documented in this encounter Plan of Treatment Not on file documented as of this encounter Visit Diagnoses Not on filedocumented in this encounter Additional Health Concerns Assessment Noted Time PHQ-9 Depression Total Score: 0 08/15/20 23 3:52 PM EST documented as of this encounter Care Teams Croze Cutter Relationship Specialty Start Date End Date Haily Robb FNP [address] [place] [id number] PCP - General Family Medicine 05/01/22 Gregoria Brooks RN [address] [place] [id number] Registered Nurse Family Medicine 06/15/25 Latricia Houser 06/16/25 documented as of this encounter
--- OUTSIDE RECORDS SUMMARY | 2025-07-03 08:28 | XMS_ITS | Encounter Summary ---
Author Organization [employer] Address [address] [facility] 7t [place] [address] Care Team Providers Care Bull Rider Name Role Phone [place] [facility] Primary Care Provider Gregoria Brooks RN Unavailable [phone] Latricia Houser Unavailable Reason for Visit * Reason Comments Med Refill Encounter Details Date Type Department Care Team (Late st Contact Info) Description 09/05/2022 Telephone [facility] MEDICINE [address] [place], [place] [phone] [facility] [address] [place] [address] Med Refill Social History Tobacco Use Types [...] - 09/06/2022 8:18 AM EST TC via P/I#[id number], explained to pt that his Clonazepam was prescribed from his psychiatric providerat [address] [facility]. Provided pt the phone number for the [facility] site and encouraged him to call them for all refills of his Clonazepam. Pt thanked process description writer and said he understood. * Telephone Encounter - Yessi Cannon RN - 09/05/2022 3:04 PM EST Note on 08/02/22: Medication request:CLONAZEPAM Last visit 06/27/22. You sent a refill in June, it was picked up 07/12/22. He was originally getting this elsewhere. Not sure what you'd like to do. If you'll now be prescribing, then would you like him on SURFACE GRINDER TENDER? documented in this encounter Plan of Treatment Not on file documented as of this encounter Visit Diagnoses Diagnosis Other specified anxiety disorders documented in this encounter Care Teams Bull Rider Relationship Specialty Start Date End Date Haily Robb FNP [address] [place] [address] PCP - General Family Medicine 05/01/22 Gregoria Brooks RN [address] [place] [address] Registered Nurse Family Medicine 06/15/25 Latricia Houser 06/16/25 documented as of this encounter
--- OUTSIDE RECORDS SUMMARY | 2025-07-03 08:28 | XMS_ITS | Encounter Summary ---
Author Organization [employer] Address [address] [facility] [address] 7[address] [place] [address] Care Team Providers Care Sugar Sampler Name Role Phone Clarisse [facility] Primary Care Provider Gregoria Brooks RN Unavailable [phone] Latricia Houser Unavailable Reason for Visit * Reason Onset Date Comments Medication Question 08/24/2022 Encounter Details Date Type Department Care Team (Late st Contact Info) Description 08/24/2022 Telephone [facility] MEDICINE [address] [place], [place] [phone] HaverfordHaily FNP [address] [place], [place] [phone] Medication Question Social History Tobacco Use Types [...] requesting a call back. States went to brick picker his medication and they gave him vitamin C and he would like to know if he should be taking them again . Please call to clarify. documented in this encounter Plan of Treatment Not on file documented as of this encounter Visit Diagnoses Not on filedocumented in this encounter Care Teams Sugar Sampler Relationship Specialty Start Date End Date Haily Robb FNP [address] [place] [address] PCP - General Family Medicine 05/01/22 Gregoria Brooks RN [address] [place] [id number] Registered Nurse Family Medicine 06/15/25 Latricia Houser 06/16/25 documented as of this encounter
--- OUTSIDE RECORDS SUMMARY | 2025-07-03 08:28 | XMS_ITS | Clinical Summary ---
Author Organization [employer] Address [address] [place] [address] Care Team Providers Care Converting Technician Name Role Phone Clarisse [facility] Primary Care Provider [phone] Gregoria Brooks RN Unavailable [phone] Latricia Houser Unavailable Allergies Active Allergy [...] eorder (will not trigger notification to Pharmacy)) amitriptyline (Elavil) 25 MG tabletIndications :Chronic nonintractable headache, unspecified headache type Take 1 tablet (25 mg) by mouth at bedtime. 30 tablet 2024 Discontinued Acetaminophen 500 MG capsule Take 1 capsule (500 mg) by mouth every 8 (eight) hours if needed for moderate pain or fever. 30 capsule 2024 Discontinued(R eorder (will not trigger notification [...] Avoidance of pollen as much as possible. [place] of ophthalmic mast cell stabilizer, nasal steroid and antihistamine. LLQ pain 01/06/2025 Assessment & Plan (01/06/2025 11:25 AM EDT): No evidence of acute abdomen. Chronic. He needs colon cancer screening and has been referred to [facility] in the past. He was encouraged to call in November but did not. We called today to facilitate appointment and give him the number to call. ER precautions discussed. [facility] reports pt has to call himself due to cancelled and did not make follow up. He was given the number [phone]. I stressed the importance of following up [...] any case Continue Carafate Call GI at [facility] for EGD and colonoscopy Eat small frequent [...] for anxiety sxs) that comes referred from [facility] for exacerbated anxiety in presence of [...] a good support system through his family, zoroastrian and recovery network, as well as having support from his psych med provider and counselor. During intervention I provided supportive therapy though active listening and validation of current experience. I provided psychoeducation around anxiety, brain functions in behavioral and emotional experience and reviewed with patient past and current history and psych med history that could impact current sxs presentation. I met with medical provider overseeing John's case and we discussed potential referrals to neurologist to explore potential nerve damage due to terminal carman use of anxiolytics, even though John is on low dose medication. At this time is unclear if crawling/burning sensation on skin is solely due to medical and/or somatic presentation. However, sxs are causing significant psychological distress in patient. John was given information on how to reach out to [facility] team and HC numbers for crisis. He was also encouraged to bring current event to team to discuss further coping skills to support wellbeing. Patient was agreeable Opioid dependence in remission ([facility]) 023 Scrotal pain 02/04/2023 Overview (02/04/2023): saw urology for scrotal pain. PE and u/s negative other than small hydrocele. No fruther eval needed. Tyleno ibu for pain Hypogonadism in male 11/02/2022 Overview (11/02/2022): Followed by [facility] urology Dr. Lux subcutaneous testosterone injection Assessment [...] is at [facility] clinic [phone] on January 27 at 11:00 am. He [...] that patient prefer are from a different prosthetics assistant and are on back order. Pt will [...] Provider, Generic External Data 07/01/2025 Patient Outreach [facility] [address] [place] [address] Haily Robb FNP Care Management (C3CM- FOLLOW UP CALL) 06/30/2025 Patient Outreach [facility] [address] [place] [address] Haily Robb FNP Care Coordination (C3 CM-W Latricia Houser telephone call outreach/) 06/24/2025 2:40 PM EDT Office Visit [facility] [address] [address] Hollis Rutledge MD Erythema (Primary Dx); Positive QuantiFERON-TB Gold test 06/24/2025 [facility] [address] [address] Hollis Rutledge MD XR Chest 2 Views 06/24/2025 Patient Outreach [address] [address] Lino Holder Recovery Supports 06/24/2025 Travel 06/24/[address] [address] Hermes Black, CHAGO OBAT Communication 06/24/[address] [address] Haily Robb FNP Results 06/23/2025 Patient Outreach [address] [address] Haily Robb FNP Care Management (C3CM- FOLLOW UP CALL ) 06/23/2025 [facility] [address] [address] Roxana Gotti DO 06/22/2025 1:20 PM EDT Office Visit [address] [address] Sanam Noland MD Acute non intractable tension-type headache; Palpitations; Left lower quadrant abdominal pain; Slow transit constipation 06/18/2025 Plan of Care Documentation [address] [address] 06/18/2025 Patient Outreach [address] [address] Haily Robb FNP Care Coordination 06/17/2025 Plan of Care Documentation [address] [address] 06/17/2025 Patient Outreach [address] [address] Hialy Robb FNP Care Management (C3CM COMPLEX INITIAL ASSESSMENT/ ENROLLMENT-/) 06/16/2025 Patient Outreach [address] [address] Haily Robb [facility] Care Coordination (C3 -[facility] Latricia Houser telephone call outreach) 06/16/2025 Patient Outreach [address] [address] HealyHaily [facility] Care Coordination (C3 -[facility] Latricia Houser chart review) 06/16/2025 Patient Outreach [address] [address] HealyHaily [facility] Care Management ([facility] -CHART REVIEW ) 06/15/2025 Patient Outreach [address] [address] HealyHaily [facility] 06/13/2025 Orders Only GENERIC EXTERNAL DATA DEPARTMENT Provider, Generic External Data 06/10/2025 2:00 PM EDT Office Visit [address] [address] Haily Robb [facility] Somatic symptom disorder, persistent, moderate (Primary Dx); Latent tuberculosis; Encounter for immunization 06/10/2025 Travel 06/09/[address] [address] HealyHaily molina [facility] 06/04/[address] [address] [facility] 06/04/2025 Refill [facility] [address] [place] [address] Elda Love MD Seasonal allergies; Chronic nonintractable headache, unspecified headache type 06/03/[address] [address] Haily Robb [facility] Epigastric pain 06/03/2025 Refill [facility] [address] [place] [address] Roxana Gotti DO 06/03/2025 Patient Outreach [address] [address] Haily Robb FNP Pre-visit Planning (SDOH screening negative and tobacco screening negative) 06/03/2025 Refill [facility] [address] [place] [address] Haily Robb FNP Restless leg 06/02/2025 3:40 PM EDT [facility] [address] [address] Elda Love MD Acute URI (Primary Dx) 06/02/2025 Travel 05/31/2025 Refill [facility] [address] [place] [address] Haily Robb FNP Restless leg 05/27/2025 Refill [facility] [address] [place] [address] Jana Morgan MD Bilateral lower extremity edema 05/19/2025 Orders Only [facility] [address] [place] [address] Sanam Noland MD Chronic bilateral low back pain without sciatica (Primary Dx) 05/19/2025 Telephone [facility] [address] [place] [address] Haily Robb FNP Med Refill 05/15/2025 10:00 AM EDT [facility] [address] [place] [address] Collins Reyes MD Bloating (Primary Dx); Drug-induced constipation; Concern about diabetes mellitus without diagnosis 05/15/2025 Travel 05/14/2025 Refill [facility] [address] [place] [address] Roxana Gotti DO Epigastric pain 05/12/2025 9:20 AM EDT [facility] [address] [place] [address] Elda Love MD Chronic nonintractable headache, unspecified headache type 05/12/2025 Travel 05/08/2025 Telephone [facility] [address] [place] [address] Haily Robb FNP Referral 05/05/2025 Telephone [facility] [address] [place] [address] Healy Haily [facility] Jun/jul recall 05/04/2025 Refill [facility] [address] [place] [address] [facility] Wheezing 05/02/2025 Refill [facility] [address] [place] [address] [facility] Mixed anxiety and depressive disorder; Wheezing 04/29/2025 Orders Only GENERIC EXTERNAL DATA DEPARTMENT Provider, Generic External Data 04/27/2025 1:40 PM EDT [facility] [address] [address] Sanam Noland MD Chronic bilateral low back pain without sciatica (Primary Dx); Chronic nonintractable headache, unspecified headache type 04/27/2025 Travel 04/21/2025 10:20 AM EDT [facility] [address] [address] Collins Reyes MD Chronic nonintractable headache, unspecified headache type (Primary Dx) 04/21/2025 Travel 04/06/2025 Refill [facility] [address] [place] [address] Gema Gar FNP Stasis dermatitis 04/05/2025 Orders Only GENERIC EXTERNAL DATA DEPARTMENT Provider, Generic External Data 04/04/2025 10:20 AM EDT [facility] [address] [address] Francy Jennings MD Benign prostatic hyperplasia with [...] PM EDT Narrative 07/02/2025 4:06 PM EDT [address] [address] XRay Report Signed Patient: John Fitzpatrick MR#: [id number] : 1970 Acct:[id number] Age/Sex: 55 / M ADM Date: 07/02/25 Loc: HO.ED Attending Dr: Ordering Physician: Rah Dhaliwal Date of Service: 07/02/25 Procedure(s): XR chest 1V Accession Number(s): [id number] cc: Rah Dhaliwal; [facility] Reason for Exam: Couging. pnuemonia? [...] 07/02/25 1603 DD/ 1555 TD/TT: 07/02/25 1557 Private Branch Exchange Installer: LUIS ANTONIO Procedure Note Donotuseinterpreter, Image - 07/02/[address] [place] [address] XRay Report Signed Patient: John Fitzpatrick AMR#: [id number] : 1970Acct:[id number] Age/Sex: 55 / MADM Date: 07/02/25 Loc: .ED Attending Dr: Ordering Physician: Rah Dhaliwal Date of Service: 07/02/25 Procedure(s): XR chest 1V Accession Number(s): [id number] cc: Rah Dhaliwal; [facility] Reason for Exam: Couging. pnuemonia? [...] 07/02/25 1603 DD/ 1555 TD/TT: 07/02/25 1557 Private Branch Exchange Installer: LUIS ANTONIO [facility] External Provider IMG XR PROCEDURES Final Result * High Sensitivity Troponin I (07/02/2025 3:54 PM EDT) Only the most recent of4 resultswithin the time period is included. TROPONIN I HIGH SENSITIVITY <2.7 <3.5 - 35.0 ng/L [facility] Comment:The [place] high sens itivity Troponin-I results should beused in conjunction with other diagnostic information suchas ECG, clinical observations and information, and patientsymptoms to aid in the diagnosis of LA. 07/02/2025 3:54 PM EDT 07/02/2025 3:57 PM EDT Generic External Data Provider LAB BLOOD ORDERAB LES Final Result [facility] [address] [place], [place] [phone] * (ABNORMAL) CBC auto differential (07/02/2025 10:18 AM EDT) Only the most recent of4 resultswithin the time period is included. White Blood Count 4.8 4.8 - 10.8 X10*3/uL [facility] Red Blood Count 4.42(L) 4.60 - 5.80 X10*6/uL [facility] Hemoglobin 14.4 14.0 - 18.0 g/dl [facility] Hematocrit 42.9 42.0 - 52.0 % [facility] Mean Corpuscular Volume 97.1 80.0 - 98.0 fL [facility] Mean Corpuscular Hemoglobin 32.6 27.0 - 33.0 pg [facility] Mean Corpuscular HGB Conc 33.6 31.0 - 36.0 g/dl [facility] Red Cell Distribution Width 11.9 11.0 - 16.0 % [facility] Platelet Count 201 160 - 400 X10*3/uL [facility] Mean Platelet Volume 10.1 9.4 - 12.4 fL [facility] Neutrophils Percent Auto 71.0 45 - 73 % [facility] Imm Gran Pct Auto 0.2 0.0 - 0.4 % [facility] Lymphocytes Percent Auto 18.8(L) 20 - 40 % [facility] Monocytes Percent Auto 7.5 2 - 11 % [facility] Eosinophils Percent Auto 1.9 0 - 4 % [facility] Basophils Percent Auto 0.6 0 - 2 % [facility] NRBC Pct Auto 0.0 0.0 - 0.2 /100WBC [facility] Neutrophils Absolute Auto 3.4 2.0 - 8.3 x10*3/uL [facility] Imm Gran Abs Auto 0.01 0.00 - 0.03 X10*3/uL [facility] Lymphocytes Absolute Auto 0.9(L) 1.2 - 4.9 X10*3/uL [facility] Monocytes Absolute Auto 0.4 0.1 - 1.2 X10*3/uL [facility] Eosinophils Absolute Auto 0.1 0.0 - 0.4 X10*3/uL [facility] Basophils Absolute Auto 0.0 0.0 - 0.2 X10*3/uL [facility] NRBC Abs Auto 0.000 0.0 - 0.012 X10*3/uL [facility] 07/02/2025 10:1 8 AM EDT 07/02/2025 10:21 AM EDT us Generic External Data Provider LAB BLOOD ORDERAB LES Final Result [facility] [address] [place] [address] [phone] * (ABNORMAL) Basic Metabolic Panel (07/02/2025 10:18 AM EDT) Only the most recent of2 resultswithin the time period is included. Sodium 142 135 - 145 mmol/L [facility] Potassium 4.0 3.3 - 5.1 mmol/L [facility] Chloride 105 96 - 108 mmol/L [facility] Carbon Dioxide 31(H) 22 - 29 mmol/L [facility] Anion Gap 10(L) 12 - 20 [facility] Urea Nitrogen (BUN) 12 9 - 16 mg/dL [facility] Creatinine, Serum 0.93 0.5 - 1.4 mg/dL [facility] Creatinine Clr Calc Pharmacy 75.9 [facility] Comment:eGFR (calculated fro m the MDRD study equation) and eCrCl(calculated from the Cockcroft-Gault equation) are based ondifferent parameters and may not yield comparable results.If eCrCl result is absurd, please check patient'sheight/weight. Estimated Glomerular Filt Rate >60 [facility] Comment:Chronic Kidney Disea se: Estimated GFR < 60 mL/min/1.59v9Xrmcgl Kidney Disease: Estimated GFR < 15 mL/min/1.73m2 Glucose 98 60 - 115 mg/dL [facility] Calcium 9.4 8.4 - 10.2 mg/dL [facility] 07/02/2025 10:1 8 AM EDT 07/02/2025 10:21 AM EDT us Generic External Data Provider LAB BLOOD ORDERAB LES Final Result Performing Organization Address City/State/[facility] Co de Phone Number [facility] [address] [place] [phone] * XR Chest 2 Views (06/24/2025 4:04 PM EDT) Anatomical Region Laterality Modality Chest Radiographic Cecelia ging 06/24/2025 4:04 PM EDT Narrative 06/24/2025 4:11 PM EDT [address] [address] XRay Report Signed Patient: John Fitzpatrick MR#: [id number] : 1970 Acct:[id number] Age/Sex: 55 / M ADM Date: 06/24/25 Loc: HO.HHCX Attending Dr: Hollis Rutledge MD Ordering Physician: HOLLIS RUTLEDGE MD Date of Service: 06/24/25 Procedure(s): XR chest 2V Accession Number(s): [id number] cc: HOLLIS RUTLEDGE MD Reason for Exam: [...] Finesse Witt MD 06/24/2025 04:08 PM EDT Dictated By: Finesse Witt MD Signed By: <Electronically signed by Finesse Witt MD in OV> 06/24/25 1608 DD/ 1604 TD/TT: 06/24/25 160 Private Branch Exchange Installer: Procedure Note Donotjaylyninterpreter, Image - 06/24/2025 [facility] [address] [place] [address] XRay Report Signed Patient: John Fitzpatrick AMR#: [id number] : 1970Acct:[id number] Age/Sex: 55 / MADM Date: 06/24/25 Loc: HO.HHCX Attending Dr: Hollis Rutledge MD Ordering Physician: HOLLIS RUTLEDGE MD Date of Service: 06/24/25 Procedure(s): XR chest 2V Accession Number(s): [id number] cc: HOLLIS RUTLEDGE MD Reason for Exam: [...] Finesse Witt MD 06/24/2025 04:08 PM EDT Dictated By: Finesse Witt MD Signed By: <Electronically signed by Finesse Witt MD in OV> 06/24/25 1608 DD/ 1604 TD/TT: 06/24/251603 Private Branch Exchange Installer: us Hollis Rutledge MD IMG XR PROCEDURES Final Result * TSH W/Reflex to FT4 (06/22/2025 2:19 PM EDT) TSH reflex Free T4 1.82 0.32 - 4.0 uIU/mL [facility] Blood Venous blood specimen / Unknown 06/22/2025 2:19 PM EDT 06/22/2025 3:58 PM EDT us Sanam Peacock MD LAB BLOOD ORDERABLES Final Result Performing Organization Address City/[facility]/ZIP Co de Phone Number [facility] [address] [place] [phone] * COVID-19 ID NOW ([place]MON) (06/13/2025 3:10 PM EDT) Only the most recent of2 resultswithin the time period is included. IDNOW SERIAL# [id number] [facility] COVID-19 TEST Negative Negative [facility] COVID-19 NOTE See Note [facility] Comment: Results are for the identification of SARS-CoV2 RNA. TheSARS-CoV2 RNA is generally detectable in respiratory samplesduring the acute phase of infection. Positive results areindicative of the presence of SARS-CoV-2 RNA; clinicalcorrelation with patient history and other diagnosticinformation is necessary to determine patient infectionstatus. Positive results do not rule out bacterial infectionor co- infection with other viruses.Testing facilities within the [facility] are required to report all positive [...] 3:10 PM EDT 06/13/2025 3:15 PM EDT us Generic External Data Provider LAB MOLECULAR KATIUSKA GNOSTICS ORDERABLES Final Result Performing Organization Address City/[facility]/ZIP Co de Phone Number [facility] [address] [place] [address] [phone] * Influenza A B2 ID NOW ([place]) (06/13/2025 2:15 PM EDT) BRIAN SERIAL# [id number] [facility] Influenza A Negative Negative [facility] Influenza B2 Negative Negative [facility] Influenza A B2 Note See Note [facility] Comment:The [facility] ID NOW In fluenza [...] 2:15 PM EDT 06/13/2025 2:22 PM EDT us Generic External Data Provider LAB MICROBIOLOGY - GENERAL ORDERABLES Final Result [facility] [address] [place] [phone] * XR KUB and Upright 2 Views (06/13/2025 1:48 PM EDT) Anatomical Region Laterality Modality Radiographic Cecelia ging 06/13/2025 1:48 PM EDT Narrative 06/13/2025 1:50 PM EDT [address] [address] XRay Report Signed Patient: John Fitzpatrick MR#: [id number] : 1970 Acct:[id number] Age/Sex: 55 / M ADM Date: 06/13/25 Loc: .ED Attending Dr: Ordering Physician: Fay Rosales Date of Service: 06/13/25 Procedure(s): XR KUB Accession Number(s): [id number] cc: Fay Rosales; [facility] Reason for Exam: constipation CLINICAL HISTORY: constipation [...] in OV> 06/13/25 1349 DD/ 1348 TD/TT: 06/13/251347 Private Branch Exchange Installer: Procedure Note Marilyn, Leonard - 06/13/2025 [place] [address] XRay Report Signed Patient: John Fitzpatrick [facility]#: [id number] : 1970Acct:[id number] Age/Sex: 55 / MADM Date: 06/13/25 Loc: HO.ED Attending Dr: Ordering Physician: Fay Rosales Date of Service: 06/13/25 Procedure(s): XR KUB Accession Number(s): [id number] cc: Fay Rosales; [facility] Reason for Exam: constipation CLINICAL HISTORY: constipation [...] in OV> 06/13/25 1349 DD/ 1348 TD/TT: 06/13/258 Private Branch Exchange Installer: [facility] External Provider IMG XR PROCEDURES Final Result * Urinalysis w/reflex microscopic (06/13/2025 12:33 PM EDT) Color Urine Yellow [facility] Appearance Urine Clear [facility] PH 8.5 5.0 - 9.0 [facility] Glucose Urine UA Negative Negative mg/dL [facility] Urine Blood Negative Negative [facility] Specific Slemp - Urine 1.020 1.005 - 1.025 [facility] Urine Protein Negative Neg-Trace mg/dL [facility] Urine Ketones Negative Negative mg/dL [facility] Nitrite Urine Negative Negative [facility] Leukocyte Esterase Urine Negative Negative [facility] 06/13/2025 12:3 3 PM EDT 06/13/2025 12:37 PM EDT Narrative [facility] - 06/13/2025 1:25 PM EDT [id number], [employer] Generic External Data Provider LAB URINE ORDERAB LES Final Result Performing Organization Address City/[facility]/ZIP Co de Phone Number [facility] [address] [place] [phone] * Magnesium (06/13/2025 12:28 PM EDT) Magnesium 1.9 1.6 - 2.6 mg/dL [facility] 06/13/2025 12:2 8 PM EDT 06/13/2025 12:31 PM EDT Generic External Data Provider LAB BLOOD ORDERAB LES Final Result Performing Organization Address City/[facility] Co de Phone Number [facility] [address] [place] [phone] * Lipase (06/13/2025 12:28 PM EDT) Only the most recent of2 resultswithin the time period is included. Lipase 19 8 - 78 U/L [facility] 06/13/2025 12:2 8 PM EDT 06/13/2025 12:31 PM EDT us Generic External Data Provider LAB BLOOD ORDERAB LES Final Result [facility] [address] [place] [address] [phone] * (ABNORMAL) Comprehensive Metabolic Panel (06/13/2025 12:28 PM EDT) Only the most recent of2 resultswithin the time period is included. Sodium 138 135 - 145 mmol/L [facility] Potassium 4.3 3.3 - 5.1 mmol/L [facility] Chloride 102 96 - 108 mmol/L [facility] Carbon Dioxide 31(H) 22 - 29 mmol/L [facility] Anion Gap 9(L) 12 - 20 [facility] Urea Nitrogen (BUN) 14 9 - 16 mg/dL [facility] Creatinine, Serum 0.99 0.5 - 1.4 mg/dL [facility] Creatinine Clr Calc Pharmacy 70.4 [facility] Comment:eGFR (calculated fro m the MDRD study equation) and eCrCl(calculated from the Cockcroft-Gault equation) are based ondifferent parameters and may not yield comparable results.If eCrCl result is absurd, please check patient'sheight/weight. Estimated Glomerular Filt Rate >60 [facility] Comment:Chronic Kidney Disea se: Estimated GFR < 60 mL/min/1.92f2Asukde Kidney Disease: Estimated GFR < 15 mL/min/1.73m2 Glucose 100 60 - 115 mg/dL [facility] Calcium 9.5 8.4 - 10.2 mg/dL [facility] Bilirubin, Total 1.5(H) 0.0 - 1.0 mg/dL [facility] Aspartate Amino Transferase 24 5 - 37 U/L [facility] Alanine Aminotransferase 18 0 - 40 U/L [facility] Total Protein 7.5 6.5 - 8.0 g/dL [facility] Albumin Level 4.9 3.5 - 5.0 g/dL [facility] Alkaline Phosphatase 50 39 - 117 U/L [facility] 06/13/2025 12:2 8 PM EDT 06/13/2025 12:31 PM EDT Generic External Data Provider LAB BLOOD ORDERAB LES Final Result [facility] [address] [place] [phone] * (ABNORMAL) POCT Hgb A1c (05/15/2025 10:34 AM EDT) Hemoglobin A1C 5.8(A) 4.0 - 5.7 % QC Media Lot # [id number] Lot# Expiration Date 62 Blood 05/15/2025 10:3 4 AM EDT [place] [...] AM EDT Narrative 04/29/2025 12:15 PM EDT [address] [address] [address] Scan Report Signed Patient: John Fitzpatrick MR#: [id number] : 1970 Acct:[id number] Age/Sex: 55 / M ADM Date: 04/29/25 Loc: HO.ED Attending Dr: Ordering Physician: Erik Montano DO Date of Service: 04/29/25 Procedure(s): CT head/brain wo IV con Accession Number(s): [id number] cc: Erik Montano DO; [facility] Report Number: [id number]: Total DLP = 672.00 mGy-cm EXAMINATION: CT [...] 04/29/25 1212 DD/ 1132 TD/TT: 04/29/25 1205 Private Branch Exchange Installer: Procedure Note Donotuseinterpreter, Image - 04/29/[address] [place] [address] CT Scan Report Signed Patient: John Fitzpatrick AMR#: [id number] : 1970Acct:[id number] Age/Sex: 55 / MADM Date: 04/29/25 Loc: HO.ED Attending Dr: Ordering Physician: Erik Montano DO Date of Service: 04/29/25 Procedure(s): CT head/brain wo IV con Accession Number(s): [id number] cc: Erik Montano DO; [facility] Report Number: [id number]: Total DLP = 672.00 mGy-cm EXAMINATION: CT [...] 04/29/25 1212 DD/ 1132 TD/TT: 04/29/25 1205 Private Branch Exchange Installer: [facility] External Provider IMG CT PROCEDURES Final [...] Urine 04/04/2025 10:4 3 AM EDT Result [facility] Francy Jennings MD POINT OF CARE TEST ENTER /EDIT ORDERABLES Final Result * Hepatitis C Antibody with Reflex to HCV, RNA, Quantitative, Real-Time PCR (01/06/2025 10:11 AM EDT) Pathologist [facility] Hepatitis C Antibody Nonreactive Nonreactive [facility] Comment:Antibodies to HCV no t detected; does not exclude early acuteHCV infection. Blood Venous blood specimen / Unknown 01/06/2025 10:11 AM EDT 01/06/2025 11:07 AM EDT Result [facility] Hoa Dueñas NP LAB BLOOD ORDERABLES Final Resul t [facility] [address] [place] [phone] * Lipid Panel, Standard (03/19/2024 9:34 AM EDT) Triglycerides 66 <150 mg/dL [facility] Comment:Desirable Triglyceri de: less than 150 mg/dLBorderline High Triglyceride 150-199 mg/dLHigh Triglyceride: 200-499 mg/dLVery High Triglyceride: greater than or equal to 5OO mg/dL Cholesterol 112 <200 mg/dL [facility] Comment:Desirable Cholestero l: less than 200 mg/dLBorderline High Cholesterol: 200-239 mg/dLHigh Cholesterol: greater than 239 mg/dL LDL Cholesterol Calculated 58 <100 mg/dL [facility] Comment:Desirable LDL: less than 100 mg/dLNear Optimal/Above Optimal LDL: 110- 129 mg/dLBorderline High LDL: 130-159 mg/dLHigh LDL: 160-189 mg/dLVery High LDL: greater than or equal to 190 mg/dL HDL Cholesterol 41 >40 mg/dL [facility] Comment:Desirable HDL: great er than 40 mg/dL Note: This HDL assay may give artificially low results in patients with liver disease. Blood Venous blood specimen / Unknown 03/19/2024 9:34 AM EDT 03/19/2024 11:12 AM EDT us Roxana Gotti DO LAB BLOOD ORDERABLES Final R esult Performing Organization Address [facility]/ZIP Co de Phone Number [facility] [address] [place] [phone] * HIV-1 RNA, Quantitative, Real-Time PCR (03/22/2023 11:53 AM EDT) HIV RNA PCR Qn Copies NOT DETECTED NOT DETECTED copies/mL [facility] HIV RNA PCR Qn Log Copies NOT DETECTED NOT DETECTED [facility] Comment:Result Units: Log co pies/mLThis test was performed using Real-Time Polymerase ChainReaction.Reportable Range: 20 copies/mL to 10,000,000 copies/mL(1.30 log copies/mL to 7.00 log copies/mL).THIS TEST WAS PERFORMED AT:[employer] [place] [phone] OGNG MD Blood Venous blood specimen / Unknown 03/22/2023 11:53 AM EDT 03/22/2023 1:32 PM EDT us Jessica Guillen VOICE WRITING REPORTER LAB BLOOD ORDERABLES Final Res ult Performing Organization Address [facility]/ZIP Co de Phone Number [facility] [address] [place] [phone] from Last 3 Months or Most Recently Relevant to Health Maintenance Insurance * Guarantor: John Fitzpatrick Account Type Relation to Patient Date of Phone Billing Address Personal/Family Self [address] [address] [facility] C3 [facility] MEDICAID STAND ADULT * Guarantor: John Fitzpatrick Account Type Relation to Patient Date of Phone Billing Address Personal/Family Self [address] [address] * Guarantor: John Fitzpatrick Account Type Relation to Patient Date of Phone Billing Address Personal/Family Self [address] [address] Care Teams Converting Technician Relationship Specialty Start Date End Date Haily Robb FNP [address] [place] [address] PCP - General Family Medicine 05/01/22 Gregoria Brooks, CHAGO [address] [place] [address] Registered Nurse Family Medicine 06/15/25 Latricia Houser 06/16/25
--- OUTSIDE RECORDS SUMMARY | 2025-07-03 08:28 | XMS_ITS | Encounter Summary ---
Author Organization [employer] Address 75 [facility] 7t [place] [address] Care Team Providers Care Foreign Exchange Trader Name Role Phone Clarisse [facility] Primary Care Provider [phone] Gregoria Brooks RN Unavailable [phone] Latricia Houser Unavailable Reason for Visit * Reason Onset Date Comments Triage 09/20/2022 Encounter Details Date Type Department Care Team (Late st Contact Info) Description 09/20/2022 Telephone [facility]ICINE 230 [place], [place] [phone] ClarisseHaily [facility] [address] [place], [place] [phone] Triage Social History Tobacco Use Types Packs/Day [...] 09/20/2022 11:55 AM EST Triage call with Barnes Insulator Cutter And Former ID [id number] Pt reports an area on back that [...] No high acuity concerns reported by caller WELSH SPEAKER The caller accepted this outcome documented in this encounter Plan of Treatment Not on file documented as of this encounter Visit Diagnoses Not on filedocumented in this encounter Care Teams Foreign Exchange Trader Relationship Specialty Start Date End Date Haily Robb FNP [address] [place] [address] PCP - General Family Medicine 05/01/22 Gregoria Brooks RN [address] [place] [address] Registered Nurse Family Medicine 06/15/25 Latricia Houser 06/16/25 documented as of this encounter
--- OUTSIDE RECORDS SUMMARY | 2025-07-03 08:28 | XMS_ITS | Encounter Summary ---
Author Organization [employer] Address [address] [facility] [address] 7t [place] [address] Care Team Providers Care Talent Acquisition Sourcer Name Role Phone Clarisse [facility] Primary Care Provider Gregoria Brooks RN Unavailable [phone] Latricia Houser Unavailable Reason for Visit * Reason Comments Med Refill Encounter Details Date Type Department Care Team (Late st Contact Info) Description 07/08/2024 Refill [facility] 230 [place], [place] [phone] [place] Haily [facility] [address] [place], [place] [phone] Mixed anxiety and depressive disorder Social History [...] documented as of this encounter Care Teams Talent Acquisition Sourcer Relationship Specialty Start Date End Date Haily Robb FNP [address] [place] [address] PCP - General Family Medicine 05/01/22 Gregoria Brooks RN [address] [place] [address] Registered Nurse Family Medicine 06/15/25 Latricia Houser 06/16/25 documented as of this encounter
--- OUTSIDE RECORDS SUMMARY | 2025-07-03 08:29 | XMS_ITS | Encounter Summary ---
Author Organization [employer] Address 75 [facility] 7t [place] [address] Care Team Providers Care Lang Interpreter Name Role Phone Haily Robb TRUMPET PLAYER Primary Care Provider Gregoria Brooks RN Unavailable [phone] Latricia Houser Unavailable Reason for Visit * Reason Comments Med Refill Encounter Details Date Type Department Care Team (Late st Contact Info) Description 04/02/2023 Refill [facility] 230 [place], [place] [phone] Juanjose Barton MD [address] [place], [place] [phone] Chronic pruritus Social History Tobacco Use Types [...] documented as of this encounter Care Teams Lang Interpreter Relationship Specialty Start Date End Date Haily RobbANETA [address] [place] [address] PCP - General Family Medicine 05/01/22 Gregoria Brooks RN [address] [place] [address] Registered Nurse Family Medicine 06/15/25 Latricia Houser 06/16/25 documented as of this encounter
--- OUTSIDE RECORDS SUMMARY | 2025-07-03 08:29 | XMS_ITS | Encounter Summary ---
Author Organization [employer] Address 75 [facility] 7t [place] [address] Care Team Providers Care Medicaid Eligibility Specialist Name Role Phone Clarisse [facility] Primary Care Provider [phone] Gregoria Brooks RN Unavailable [phone] Latricia Houser Unavailable Reason for Visit * Reason Onset Date Comments triage 11/10/2022 Encounter Details Date Type Department Care Team (Late st Contact Info) Description 11/10/2022 Telephone [facility] MEDICINE 230 [place], [place] [phone] ClarisseHaily [facility] 230 [place], [place] [phone] triage Social History Tobacco Use Types Packs/Day [...] in office. Pt agrees to come into [facility] for exam. Pt also advised to [...] question The caller accepted this outcome speaks romanian documented in this encounter Plan of Treatment Not on file documented as of this encounter Visit Diagnoses Not on filedocumented in this encounter Additional Health Concerns Assessment Noted Time PHQ-9 Depression Total Score: 0 11/03/19 10:32 AM EST documented as of this encounter Care Teams Medicaid Eligibility Specialist Relationship Specialty Start Date End Date Haily Robb FNP [address] [place] [address] PCP - General Family Medicine 05/01/22 Gregoria Brooks RN [address] [place] [address] Registered Nurse Family Medicine 06/15/25 Latricia Houser 06/16/25 documented as of this encounter
--- OUTSIDE RECORDS SUMMARY | 2025-07-03 08:29 | XMS_ITS | Encounter Summary ---
Author Organization [employer] Address 75 [facility] 7t [place] [address] Care Team Providers Care Keyboard Teacher Name Role Phone Haily Robb [facility] Primary Care Provider [phone] Gregoria Brooks RN Unavailable [phone] Latricia Houser Unavailable Encounter Details Date Type Department Care Team (Latest Contact Info) Description 06/01/2022 Abstract [facility], Provider, DDS Social History Tobacco [...] on filedocumented in this encounter Care Teams Keyboard Teacher Relationship Specialty Start Date End Date Haily RobbANETA 230 [place] [address] PCP - General Family Medicine 05/01/22 Gregoria Brooks, CHAGO [address] [place] [address] Registered Nurse Family Medicine 06/15/25 Latricia Houser 06/16/25 documented as of this encounter
--- OUTSIDE RECORDS SUMMARY | 2025-07-03 08:29 | XMS_ITS | Encounter Summary ---
Author Organization [employer] Address 75 [facility] 7t [place] [address] Care Team Providers Care Risk Control Manager Name Role Phone [facility] Primary Care Provider Gregoria Brooks RN Unavailable [phone] Latricia Houser Unavailable Reason for Visit * Reason Comments Care Management C3CM- FOLLOW UP CALL Encounter Details Date Type Department Care Team (Late st Contact Info) Description 07/01/2025 Patient Outreach [facility] [address] [place], [place] [phone] Clarisse Haily [facility] [address] [place] [address] Care Management (C3CM- FOLLOW UP CALL) Social [...] advised that CM received a call from Hydrology Technician Kat[facility] to inform that Patient has sched uled MRI for 07/17/25 at 10am at [facility]. Patient states is hoping to be able to tolerate completing exam if its with an open MRI machine. Patient informs CM that has upcoming appointment for ECHO At [facility] on 07/03. Patient could not recall appointment time. This process description writer will have coworker look in [facility] for details. Per [facility] patient is scheduled for US of Abdomen [...] provided on Walk-In Urgent Care located in [facility]. Patient provided with after-hours line for [facility], , which offer night time triage service and option to transfer to thermostatic controls supervisor provider if needed. Patient verbalizes understanding, and able to repeat back to process description writer. A follow up call will be [...] documented as of this encounter Care Teams Risk Control Manager Relationship Specialty Start Date End Date [facility] 230 [place] [address] PCP - General Family Medicine 05/01/22 Gregoria Brooks RN [address] [place] [address] Registered Nurse Family Medicine 06/15/25 Latricia Houser 06/16/25 documented as of this encounter
--- OUTSIDE RECORDS SUMMARY | 2025-07-03 08:29 | XMS_ITS | Encounter Summary ---
Author Organization [employer] Address 75 [facility] 7t [place] [address] Care Team Providers Care Ball Fringe Machine Operator Name Role Phone [facility] Primary Care Provider [phone] Gregoria Brooks RN Unavailable [phone] Latricia Houser Unavailable Reason for Visit * Reason Comments Care Coordination C3 -Ronn ames telephone call outreach Encounter Details Date Type Department Care Team (Latest Contact Info) Description 06/30/2025 Patient Outreach [facility] MEDICINE 230 [place], [place] [phone] [facility] 230 [place] [address] Care Coordination (C3 TONE Houser telephone call [...] answer at thistime. LVM introducing herself from [facility] CM Department. Requested call back. CHW reinforced direct contact information or CM for any additional questionsor concerns and extended clinic hours on Mondays and Wednesdays, and Walk-In Urgent Care Located inLobby of [facility]. Patient provided with after-hours line for [facility], , which offer night time triage service and option to transfer to salesperson neckties provider if needed. CHW will attempt another [...] documented as of this encounter Care Teams Ball Fringe Machine Operator Relationship Specialty Start Date End Date Haily Robb FNP [address] [place] [address] PCP - General Family Medicine 05/01/22 Gregoria Brooks, CHAGO [address] [place] [address] Registered Nurse Family Medicine 06/15/25 Latricia Houser 06/16/25 documented as of this encounter
--- OUTSIDE RECORDS SUMMARY | 2025-07-03 08:29 | XMS_ITS | Clinical Summary ---
Author Organization [facility] Address [address] [place] [address] Phone Care Team Providers Care Spline Rolling Machine Job Setter Name Role Phone [facility] Primary Care Provider [phone] Medications polyethylene glycol (Golytely) 236-22.74-6.74 -5.86 gram [...] Phone Billing Address Personal/Family Self 1970 [address] [facility] [address] [place] [address] MEDICAID - [place] Care Teams Spline Rolling Machine Job Setter Relationship Specialty Start Date End Date TrentonHaily [address] [address] PCP - General 05/20/24
--- OUTSIDE RECORDS SUMMARY | 2025-07-03 08:29 | XMS_ITS | Encounter Summary ---
Author Organization [employer] Address [address] [facility] [address] 7t [place] [address] Care Team Providers Care Machine Cleaner Name Role Phone Clarisse [facility] Primary Care Provider Gregoria Brooks RN Unavailable [phone] Latricia Houser Unavailable Reason for Visit * Reason Comments Med Refill Encounter Details Date Type Department Care Team (Late st Contact Info) Description 06/03/2025 Refill [facility] MEDICINE 230 [place], [place] [phone] [place] Haily [facility] 230 [place], [place] [phone] Epigastric pain Social History Tobacco Use Types [...] documented as of this encounter Care Teams Machine Cleaner Relationship Specialty Start Date End Date Haily Robb FNP [address] [place] [address] PCP - General Family Medicine 05/01/22 Gregoria Brooks RN [address] [place] [address] Registered Nurse Family Medicine 06/15/25 Latriica Houser 06/16/25 documented as of this encounter
--- OUTSIDE RECORDS SUMMARY | 2025-07-03 08:29 | XMS_ITS | Encounter Summary ---
Author Organization [employer] Address 75 [facility] 7t [place] [address] Care Team Providers Care Threshing Machine Operator Name Role Phone Haily Robb [facility] Primary Care Provider [phone] Gregoria Brooks RN Unavailable [phone] Latricia Houser Unavailable Encounter Details Date Type Department Care Team (Latest Contact Info) Description 06/16/2020 Abstract [facility] Dental, Provider, DDS Social History Tobacco [...] on filedocumented in this encounter Care Teams Threshing Machine Operator Relationship Specialty Start Date End Date Haily RobbANETA 230 [place] [address] PCP - General Family Medicine 05/01/22 Gregoria Brooks, CHAGO [address] [place] [address] Registered Nurse Family Medicine 06/15/25 Latricia Houser 06/16/25 documented as of this encounter
--- OUTSIDE RECORDS SUMMARY | 2025-07-03 08:29 | XMS_ITS | Encounter Summary ---
Author Organization [employer] Address 75 [facility] 7t [place] [address] Care Team Providers Care License Examiner Name Role Phone Clarisse Haily ECONOMIST RESEARCH ASSISTANT Primary Care Provider [phone] Gregoria Brooks RN Unavailable [phone] Latricia Houser Unavailable Encounter Details Date Type [...] PM EDT Narrative 07/02/2025 4:06 PM EDT [address] [address] XRay Report Signed Patient: John Fitzpatrick MR#: [id number] : 1970 Acct:[id number] Age/Sex: 55 / M ADM Date: 07/02/25 Loc: .ED Attending Dr: Ordering Physician: Rah Dhaliwal Date of Service: 07/02/25 Procedure(s): XR chest 1V Accession Number(s): [id number] cc: Rah Dhaliwal; [facility] Reason [...] 07/02/25 1603 DD/ 1555 TD/TT: 07/02/25 1557 Retail Merchandiser Technician: LUIS ANTONIO Procedure Note Donotuseinterpreter, Image - 07/02/[address] [address] XRay Report Signed Patient: John Fitzpatrick AMR#: [id number] : 1970Acct:[id number] Age/Sex: 55 / MADM Date: 07/02/25 Loc: .ED Attending Dr: Ordering Physician: Rah Dhaliwal Date of Service: 07/02/25 Procedure(s): XR chest 1V Accession Number(s): [id number] cc: Rah Dhaliwal; Haily Robb Reason for [...] 07/02/25 1603 DD/ 1555 TD/TT: 07/02/25 1557 Retail Merchandiser Technician: LUIS ANTONIO [facility] External Provider IMG XR PROCEDURES Final Result * High Sensitivity Troponin I (07/02/2025 3:54 PM EDT) Pathologist [facility] TROPONIN I HIGH SENSITIVITY <2.7 <3.5 - 35.0 ng/L [facility] Comment:The Tello high sens itivity Troponin-I results should beused in conjunction with other diagnostic information suchas ECG, clinical observations and information, and patientsymptoms to aid in the diagnosis of AR. 07/02/2025 3:54 PM EDT 07/02/2025 3:57 PM EDT Generic External Data Provider LAB BLOOD ORDERAB LES Final Result [facility] [address] [place] [phone] * High Sensitivity Troponin I (07/02/2025 10:18 AM EDT) TROPONIN I HIGH SENSITIVITY <2.7 <3.5 - 35.0 ng/L [facility] Comment:The Tello high sens itivity Troponin-I results should beused in conjunction with other diagnostic information suchas ECG, clinical observations and information, and patientsymptoms to aid in the diagnosis of AR. 07/02/2025 10:1 8 AM EDT 07/02/2025 10:21 AM EDT us Generic External Data Provider LAB BLOOD ORDERAB LES Final Result [facility] [address] [place] [phone] * (ABNORMAL) Basic Metabolic Panel (07/02/2025 10:18 AM EDT) Sodium 142 135 - 145 mmol/L [facility] Potassium 4.0 3.3 - 5.1 mmol/L [facility] Chloride 105 96 - 108 mmol/L [facility] Carbon Dioxide 31(H) 22 - 29 mmol/L [facility] Anion Gap 10(L) 12 - 20 [facility] Urea Nitrogen (BUN) 12 9 - 16 mg/dL [facility] Creatinine, Serum 0.93 0.5 - 1.4 mg/dL [facility] Creatinine Clr Calc Pharmacy 75.9 [facility] Comment:eGFR (calculated fro m the MDRD study equation) and eCrCl(calculated from the Cockcroft-Gault equation) are based ondifferent parameters and may not yield comparable results.If eCrCl result is absurd, please check patient'sheight/weight. Estimated Glomerular Filt Rate >60 [facility] Comment:Chronic Kidney Disea se: Estimated GFR < 60 mL/min/1.14x1Idvtzw Kidney Disease: Estimated GFR < 15 mL/min/1.73m2 Glucose 98 60 - 115 mg/dL [facility] Calcium 9.4 8.4 - 10.2 mg/dL [facility] 07/02/2025 10:1 8 AM EDT 07/02/2025 10:21 AM EDT us Generic External Data Provider LAB BLOOD ORDERAB LES Final Result [facility] [address] [place], [place] [phone] * (ABNORMAL) CBC auto differential (07/02/2025 10:18 AM EDT) White Blood Count 4.8 4.8 - 10.8 X10*3/uL [facility] Red Blood Count 4.42(L) 4.60 - 5.80 X10*6/uL [facility] Hemoglobin 14.4 14.0 - 18.0 g/dl [facility] Hematocrit 42.9 42.0 - 52.0 % [facility] Mean Corpuscular Volume 97.1 80.0 - 98.0 fL [facility] Mean Corpuscular Hemoglobin 32.6 27.0 - 33.0 pg [facility] Mean Corpuscular HGB Conc 33.6 31.0 - 36.0 g/dl [facility] Red Cell Distribution Width 11.9 11.0 - 16.0 % [facility] Platelet Count 201 160 - 400 X10*3/uL [facility] Mean Platelet Volume 10.1 9.4 - 12.4 fL [facility] Neutrophils Percent Auto 71.0 45 - 73 % [facility] Imm Gran Pct Auto 0.2 0.0 - 0.4 % [facility] Lymphocytes Percent Auto 18.8(L) 20 - 40 % [facility] Monocytes Percent Auto 7.5 2 - 11 % [facility] Eosinophils Percent Auto 1.9 0 - 4 % [facility] Basophils Percent Auto 0.6 0 - 2 % [facility] NRBC Pct Auto 0.0 0.0 - 0.2 /100WBC [facility] Neutrophils Absolute Auto 3.4 2.0 - 8.3 x10*3/uL [facility] Imm Gran Abs Auto 0.01 0.00 - 0.03 X10*3/uL [facility] Lymphocytes Absolute Auto 0.9(L) 1.2 - 4.9 X10*3/uL [facility] Monocytes Absolute Auto 0.4 0.1 - 1.2 X10*3/uL [facility] Eosinophils Absolute Auto 0.1 0.0 - 0.4 X10*3/uL [facility] Basophils Absolute Auto 0.0 0.0 - 0.2 X10*3/uL [facility] NRBC Abs Auto 0.000 0.0 - 0.012 X10*3/uL [facility] 07/02/2025 10:1 8 AM EDT 07/02/2025 10:21 AM EDT us Generic External Data Provider LAB BLOOD ORDERAB LES Final Result [facility] [address] [place] [address] [phone] documented in this encounter Visit Diagnoses Not on filedocumented in this encounter Additional Health Concerns Assessment Noted Time PHQ-9 Depression Total Score: 8 06/17/20 25 11:48 AM EDT documented as of this encounter Care Teams License Examiner Relationship Specialty Start Date End Date Haily Robb FNP [address] [place] [address] PCP - General Family Medicine 05/01/22 Gregoria Brooks RN [address] [place] [address] Registered Nurse Family Medicine 06/15/25 Latricia Houser 06/16/25 documented as of this encounter
--- OUTSIDE RECORDS SUMMARY | 2025-07-03 08:29 | XMS_ITS | Encounter Summary ---
Author Organization [employer] Address [address] [facility] [address] 7t [place] [address] Care Team Providers Care Flap Curer Name Role Phone [place] [facility] Primary Care Provider Gregoria Brooks RN Unavailable [phone] Latricia Houser Unavailable Reason for Visit * Reason Comments Med Refill Encounter Details Date Type Department Care Team (Late st Contact Info) Description 06/03/2025 Refill [facility] 230 [place], [place] [phone] [place] [facility] 230 [place], [place] [phone] Restless leg Social History Tobacco Use Types [...] documented as of this encounter Care Teams Flap Curer Relationship Specialty Start Date End Date Haily Robb FNP [address] [place] [address] PCP - General Family Medicine 05/01/22 Gregoria Brooks RN [address] [place] [address] Registered Nurse Family Medicine 06/15/25 Latricia Houser 06/16/25 documented as of this encounter
--- OUTSIDE RECORDS SUMMARY | 2025-07-03 08:29 | XMS_ITS | Encounter Summary ---
Author Organization [employer] Address [address] [facility] [facility] [address] 7t [place] [address] Care Team Providers Care Fire Hazard Inspector Name Role Phone [place] [facility] Primary Care Provider Gregoria Brooks RN Unavailable [phone] Latricia Houser Unavailable Reason for Visit * Reason Comments Med Refill Encounter Details Date Type Department Care Team (Late st Contact Info) Description 05/31/2025 Refill [facility] 230 [place], [place] [phone] [place] [facility] 230 [place], [place] [phone] Restless leg Social History Tobacco Use Types [...] documented as of this encounter Care Teams Fire Hazard Inspector Relationship Specialty Start Date End Date Haily Robb FNP [address] [place] [address] PCP - General Family Medicine 05/01/22 Gregoria Brooks RN [address] [place] [address] Registered Nurse Family Medicine 06/15/25 Latricia Houser 06/16/25 documented as of this encounter
--- OUTSIDE RECORDS SUMMARY | 2025-07-03 08:29 | XMS_ITS | Encounter Summary ---
Author Organization [employer] Address [address] [facility] 7t [place] [address] Care Team Providers Care Speeder Hand Name Role Phone Clarisse [facility] Primary Care Provider [phone] Gregoria Brooks RN Unavailable [phone] Latricia Houser Unavailable Reason for Visit * Reason Onset Date Comments Med Refill 09/25/2023 Encounter Details Date Type Department Care Team (Late st Contact Info) Description 09/25/2023 Telephone [facility] MEDICINE 230 [place], [place] [phone] ClarisseHaily [facility] 230 [place], [place] [phone] Med Refill Social History Tobacco Use Types [...] 200 MG/ML injection To be sent to: [facility] - [place], [place] - [address] [facility] documented in this encounter Plan of Treatment Not on file documented as of this encounter Visit Diagnoses Not on filedocumented in this encounter Additional Health Concerns Assessment Noted Time PHQ-9 Depression Total Score: 0 08/15/20 3:52 PM EST documented as of this encounter Care Teams Speeder Hand Relationship Specialty Start Date End Date Haily RobbANETA 230 [place] [address] PCP - General Family Medicine 05/01/22 Gregoria Brooks RN 230 [place] [address] Registered Nurse Family Medicine 06/15/25 Latricia Houser 06/16/25 documented as of this encounter
--- OUTSIDE RECORDS SUMMARY | 2025-07-03 08:29 | XMS_ITS | Encounter Summary ---
Author Organization [employer] Address [address] [facility] 7t [place] [address] Care Team Providers Care Hydrotherapist Name Role Phone Haily Robb ALIGNING CHECKER Primary Care Provider [phone] Gregoria Brooks RN Unavailable [phone] Latricia Houser Unavailable Reason for Visit * Reason Comments Med Refill Encounter Details Date Type Department Care Team (Late st Contact Info) Description 04/02/2023 Refill [facility] 230 [place], [place] [phone] Hollis Rutledge MD [address] [place], [place] [phone] Social History Tobacco Use Types Packs/Day Years [...] documented as of this encounter Care Teams Hydrotherapist Relationship Specialty Start Date End Date Clarisse ANETA Johansen 230 [place] [address] PCP - General Family Medicine 05/01/22 Gregoria Brooks RN [address] [place] [address] Registered Nurse Family Medicine 06/15/25 Latricia Houser 06/16/25 documented as of this encounter
--- OUTSIDE RECORDS SUMMARY | 2025-07-03 08:29 | XMS_ITS | Encounter Summary ---
Author Organization [employer] Address [address] [facility] 7t [place] [address] Care Team Providers Care Tire Tester Name Role Phone Clarisse [facility] Primary Care Provider Gregoria Brooks RN Unavailable [phone] Latricia Houser Unavailable Reason for Visit * Reason Onset Date Comments Medication Question 01/16/2023 Encounter Details Date Type Department Care Team (Late st Contact Info) Description 01/16/2023 Telephone [facility] MED[facility] 230 [place], [place] [phone] [place] [facility] 230 [place], [place] [phone] Medication Question Social History Tobacco Use Types [...] documented as of this encounter Care Teams Tire Tester Relationship Specialty Start Date End Date Haily Robb FNP [address] [place] [address] PCP - General Family Medicine 05/01/22 Gregoria Brooks, CHAGO [address] [place] [address] Registered Nurse Family Medicine 06/15/25 Latricia Houser 06/16/25 documented as of this encounter
--- OUTSIDE RECORDS SUMMARY | 2025-07-03 08:29 | XMS_ITS | Encounter Summary ---
Author Organization [employer] Address [address] [facility] 7t [place] [address] Care Team Providers Care Security Tester Name Role Phone Clarisse [facility] Primary Care Provider Gregoria Brooks RN Unavailable [phone] Latricia Houser Unavailable Reason for Visit * Reason Comments Med Refill Encounter Details Date Type Department Care Team (Late st Contact Info) Description 01/01/2023 Refill [facility] MED[facility] 230 [place], [place] [phone] [place]aily [facility] 230 [place], [place] [phone] Chronic sinusitis, unspecified location Social History Tobacco [...] documented as of this encounter Care Teams Security Tester Relationship Specialty Start Date End Date Haily Robb FNP 230 [place] [address] PCP - General Family Medicine 05/01/22 Gregoria Brooks RN [address] [place] [address] Registered Nurse Family Medicine 06/15/25 Latricia Houser 06/16/25 documented as of this encounter
--- OUTSIDE RECORDS SUMMARY | 2025-07-03 08:29 | XMS_ITS | Encounter Summary ---
Author Organization [employer] Address [address] [facility] 7t [place] [address] Care Team Providers Care Mobile Lab Technician Name Role Phone [place] molina BOW MAKER Primary Care Provider Gregoria Brooks RN Unavailable [phone] Latricia Houser Unavailable Reason for Visit * Reason Onset Date Comments Nurse Triage 02/11/2024 Encounter Details Date Type Department Care Team (Late st Contact Info) Description 02/11/2024 Telephone [facility] MEDICINE 230 [place], [place] [phone] [place] FNP 230 [place], [place] [phone] Nurse Triage Social History Tobacco Use Types [...] EDT Triage call returned to patient with [place] airline reservationist [phone]. Patient reports ongoing issue withleft eye and [...] and she would like him referred to [facility]. No diagnosis in chart.Advised of [facility] Walk In [facility] for evaluation [...] Reason: Other Override Notes: Being treated with transcription specialist with appt coming in 03/11/24 Video [...] involuntary movements The caller accepted this outcome Nicaraguan speaker documented in this encounter Plan of [...] documented as of this encounter Care Teams Mobile Lab Technician Relationship Specialty Start Date End Date Haily Robb FNP 230 [place] [address] PCP - General Family Medicine 05/01/22 Gregoria Brooks RN [address] [place] [address] Registered Nurse Family Medicine 06/15/25 Latricia Houser 06/16/25 documented as of this encounter
--- OUTSIDE RECORDS SUMMARY | 2025-07-03 08:29 | XMS_ITS | Encounter Summary ---
Author Organization [employer] Address [address] [facility] 7t [place] [address] Care Team Providers Care Television Equipment Operator Name Role Phone Clarisse [facility] Primary Care Provider Gregoria Brooks RN Unavailable [phone] Latricia Houser Unavailable Reason for Visit * Reason Onset Date Comments Results 03/16/2023 Encounter Details Date Type Department Care Team (Late st Contact Info) Description 03/16/2023 Telephone [facility] 230 [place], [place] [phone] ClarisseHaily [facility] 230 [place], [place] [phone] Results Social History Tobacco Use Types Packs/Day [...] 03/20/2023 4:06 PM EDT Return T/C to [phone] for below message, No answer. LVM to call back on [phone]. * Telephone Encounter - Kelli Boucher - 03/16/2023 2:04 PM EDT Tc from pt requesting a call in regards to results to recent lab orders. Please contact pt at [phone] (Palestinian speaker) documented in this encounter Plan of Treatment Not on file documented as of this encounter Visit Diagnoses Not on filedocumented in this encounter Additional Health Concerns Assessment Noted Time PHQ-9 Depression Total Score: 0 01/26/20 23 3:38 PM EDT documented as of this encounter Care Teams Television Equipment Operator Relationship Specialty Start Date End Date Haily Robb FNP [address] [place] [address] PCP - General Family Medicine 05/01/22 Gregoria Brooks, CHAGO [address] [place] [address] Registered Nurse Family Medicine 06/15/25 Latricia Houser 06/16/25 documented as of this encounter
--- OUTSIDE RECORDS SUMMARY | 2025-07-03 08:29 | XMS_ITS | Encounter Summary ---
Author Organization [employer] Address [address] [facility] [address] [address] 7t [place] [address] Care Team Providers Care Mounting Machine Operator Name Role Phone [place], [facility] Primary Care Provider Gregoria Brooks RN Unavailable [phone] Latricia Houser Unavailable Encounter Details Date Type Department Care Team (Late st Contact Info) Description 06/04/2025 Telephone [facility] MEDICINE 230 [place], [place] [phone] [place], [facility] 230 [place], [place] [phone] Social History Tobacco Use Types Packs/Day Years [...] documented as of this encounter Care Teams Mounting Machine Operator Relationship Specialty Start Date End Date Haily Robb FNP [address] [place] [address] PCP - General Family Medicine 05/01/22 Gregoria Brooks RN [address] [place] [address] Registered Nurse Family Medicine 06/15/25 Latricia Houser 06/16/25 documented as of this encounter
--- OUTSIDE RECORDS SUMMARY | 2025-07-03 08:29 | XMS_ITS ---
Author Organization [employer] Address [address] [facility] 7t [place] [address] Care Team Providers Care Tire Assembler Name Role Phone [place] PROGRAM DIR Primary Care Provider [phone] Gregoria Brooks RN Unavailable [phone] Latricia Houser Unavailable CHW Complex Status:Enrolled (Active) Start date:06/16/2025 Enrollment date:06/16/2025 Enrollment reason:Referred by provider Overview Provider Referral- Patient needs assistance with getting reconnected with the [facility] Adult Day program. Please outreach to patient. Case Team Name Relationship Phone Latricia Houser(Responsible Staff) [phone] Continued Care and Services Coordination
--- OUTSIDE RECORDS SUMMARY | 2025-07-03 08:29 | XMS_ITS | Encounter Summary ---
Author Organization [employer] Address 75 [facility] 7t [place] [address] Care Team Providers Care Repairer Handtools Name Role Phone Haily Robb ALPINE GUIDE Primary Care Provider [phone] Gregoria Brooks RN Unavailable [phone] Latricia Houser Unavailable Reason for Visit * Reason Comments Med Refill Encounter Details Date Type Department Care Team (Late st Contact Info) Description 10/29/2023 Refill [facility] 230 [place] [address] Name, MD Collins 230 [place], [place] [phone] Chronic neck pain Social History Tobacco Use [...] documented as of this encounter Care Teams Repairer Handtools Relationship Specialty Start Date End Date [place] FNP 230 [place] [address] PCP - General Family Medicine 05/01/22 Gregoria Brooks RN 230 [place] [address] Registered Nurse Family Medicine 06/15/25 Latricia Houser 06/16/25 documented as of this encounter
--- OUTSIDE RECORDS SUMMARY | 2025-07-03 08:29 | XMS_ITS ---
Author Organization [employer] Address 75 [facility] 7t [place] [address] Care Team Providers Care Manager Java Name Role Phone [facility] Primary Care Provider [phone] Gregoria Brooks RN Unavailable [phone] Latricia Houser Unavailable CM Complex Status:Enrolled (Active) Start date:06/15/2025 Enrollment date:06/17/2025 Enrollment reason:Referred by provider Overview Provider Referral- Patient needs assistance with getting reconnected with the [facility] Adult Day program. Case Team Name Relationship Phone Gregoria Brooks RN(Responsible Staff) Registered Nurse Continued Care and Services Coordination
--- OUTSIDE RECORDS SUMMARY | 2025-07-03 08:29 | XMS_ITS | Encounter Summary ---
Author Organization [employer] Address 75 [facility] 7t [place] [address] Care Team Providers Care Legal Director Name Role Phone Clarisse [facility] Primary Care Provider Gregoria Brooks RN Unavailable [phone] Latricia Houser Unavailable Reason for Visit * Reason Onset Date Comments Nurse Triage 02/16/2023 Encounter Details Date Type Department Care Team (Late st Contact Info) Description 02/16/2023 Telephone [facility] MEDICINE 230 [place], [place] [phone] [place] [facility] 230 [place], [place] [phone] Nurse Triage Social History Tobacco Use Types [...] - 02/23/2023 2:49 PM EDT T/C to [phone] through [employer] interpreters id - [id number] for below message, pt. Verbally agreed and understood. * Telephone Encounter - Angela Whitman LPN - 02/16/2023 2:48 PM EDT Triage call returned to patient via [facility] [employer] [id number]. Patient called with concerns of Left eye burning and tearing at times with blurred vision. No irritant or object in eye at this time. Patient reports that he was seen some time ago in [facility] and was given order to obtain eye drops for dry eye. He is angry that he had to pay for them out of pocket and that they did not help. Patient requesting specifically a referral and declines appts. in [facility] or with Team providers later in [...] suggested disposition Override Notes: Patient seen in [facility] and was told to use eye drops several months ago. Patient requesting only referral to Research Laboratory Manager. Video visit not offered Positive Triage Question: [...] The caller accepted this outcome Patient speaks nepali documented in this encounter Plan of Treatment Not on file documented as of this encounter Visit Diagnoses Not on filedocumented in this encounter Additional Health Concerns Assessment Noted Time PHQ-9 Depression Total Score: 0 01/26/20 3:38 PM EDT documented as of this encounter Care Teams Legal Director Relationship Specialty Start Date End Date [place] FNP 230 [place] [address] PCP - General Family Medicine 05/01/22 Gregoria Brooks RN 230 [place] [address] Registered Nurse Family Medicine 06/15/25 Latricia Houser 06/16/25 documented as of this encounter
--- OUTSIDE RECORDS SUMMARY | 2025-07-03 08:29 | XMS_ITS | Encounter Summary ---
Author Organization [employer] Address 75 [facility] 7t [place] [address] Care Team Providers Care Felt Finishing Supervisor Name Role Phone Clarisse [facility] Primary Care Provider Gregoria Brooks RN Unavailable [phone] Latricia Houser Unavailable Reason for Visit * Reason Onset Date Comments Med Refill 12/13/2023 Encounter Details Date Type Department Care Team (Late st Contact Info) Description 12/13/2023 Telephone [facility] MEDICINE 230 [place], [place] [phone] ClarisseHaily [facility] 230 [place], [place] [phone] Med Refill Social History Tobacco Use Types [...] AM EDT Medication was sent to [facility] on 11/09/23 with 2 refills. * Telephone Encounter - Christine Taylor - 12/13/2023 10:19 AM EDT TC from pt requesting medication refill. Medications needing refill : melatonin 5 MG tablet To be sent to: [facility] - [place], [place] - [address] documented in this encounter Plan of Treatment Not on file documented as of this encounter Visit Diagnoses Not on filedocumented in this encounter Additional Health Concerns Assessment Noted Time PHQ-9 Depression Total Score: 0 08/15/20 23 3:52 PM EST documented as of this encounter Care Teams Felt Finishing Supervisor Relationship Specialty Start Date End Date Haily Robb, CHIEF OF POLICE 230 [place] [address] PCP - General Family Medicine 05/01/22 Gregoria Brooks RN 230 [place] [address] Registered Nurse Family Medicine 06/15/25 Latricia Houser 06/16/25 documented as of this encounter
--- OUTSIDE RECORDS SUMMARY | 2025-07-03 08:30 | XMS_ITS | Encounter Summary ---
Author Organization [employer] Address [address] [facility] [address] 7t [place] [address] Care Team Providers Care Dowel Inserting Machine Operator Name Role Phone Clarisse [facility] Primary Care Provider [phone] Gregoria Brooks RN Unavailable [phone] Latricia Houser Unavailable Reason for Visit * Reason Comments Med Refill Encounter Details Date Type Department Care Team (Late st Contact Info) Description 08/28/2024 Refill [facility] MEDICINE 230 [place], [place] [phone] [place] Haily [facility] 230 [place], [place] [phone] Mixed anxiety and depressive disorder Social History [...] will adhere to medication regimen General No aMry Moreland documented as of this encounter Visit Diagnoses Diagnosis Mixed anxiety and depressive disorder Dysthymic disorder documented in this encounter Additional Health Concerns Assessment Noted Time PHQ-9 Depression Total Score: 18 024 10:36 AM EDT documented as of this encounter Care Teams Dowel Inserting Machine Operator Relationship Specialty Start Date End Date Haily Robb FNP 230 [place] [address] PCP - General Family Medicine 05/01/22 Gregoria Brooks RN 230 [place] [address] Registered Nurse Family Medicine 06/15/25 Latricia Houser 06/16/25 documented as of this encounter
--- OUTSIDE RECORDS SUMMARY | 2025-07-03 08:30 | XMS_ITS | Encounter Summary ---
Author Organization [employer] Address [address] [facility] 7t [place] [address] Care Team Providers Care Date Pitter Name Role Phone Haily Robb [facility] Primary Care Provider Gregoria Brooks RN Unavailable [phone] Latricia Houser Unavailable Reason for Visit * Reason Onset Date Comments Results 02/26/2025 Encounter Details Date Type Department Care Team (Late st Contact Info) Description 02/26/2025 Telephone [facility] MEDICINE 230 [place], [place] [phone] ClarisseHaily [facility] 230 [place], [place] [phone] Results Social History Tobacco Use Types Packs/Day [...] back regarding prior message. Contact pt at [phone] * Telephone Encounter - Claudette Ashley - 02/26/2025 12:59 PM EDT TC from pt requesting call back regarding Results. Type of results: Lab Date when done: 02/25/25 Facility: [facility] Contact pt at [phone] (czech) documented in this encounter Plan of Treatment [...] documented as of this encounter Care Teams Date Pitter Relationship Specialty Start Date End Date Haily Robb FNP 230 [place] [address] PCP - General Family Medicine 05/01/22 Gregoria Brooks RN 230 [place] [address] Registered Nurse Family Medicine 06/15/25 Latricia Houser 06/16/25 documented as of this encounter
== END 2025-07-03 08:22 | disposition home or self-care (01) ==
LOC: HO.US 08:21
PROVIDERS: PCP Registered Nurse; Visit Provider Family Medicine
DX: R10.13 Epigastric pain (principal)
CPT/HCPCS: 76700

== ENCOUNTER → 2025-07-03 08:22 | Outpatient (BNV) | payer MEDICAID, SELFPAY | PROVIDERS: PCP Registered Nurse; Visit Provider Radiology Diagnostic Radiology | DX: R10.13 Epigastric pain (principal) | CPT/HCPCS: 76700 ==

== ENCOUNTER 2025-07-05 13:53 | Emergency (ER) | payer MEDICAID, SELFPAY ==
--- OUTSIDE RECORDS SUMMARY | 2025-07-03 12:00 | XMS_ITS | Encounter Summary ---
Author Organization [employer] Address [address] [place] [address] Care Team Providers Care Associate Manager Name Role Phone Haily Robb DYER ASSISTANT Primary Care Provider Gregoria Brooks RN Unavailable [phone] Latricia Houser Unavailable Reason for Visit * Reason Comments Back Pain Encounter Details Date Type Department Care Team (Late st Contact Info) Description 07/03/2025 1:00 PM EDT Office Visit [facility] [address], [place] [id number] Jyoti Resendiz NP [address] [place], [place] [phone] Acute left-sided thoracic back pain (Primary Dx); Other chest pain Social History Tobacco Use Types Packs/Day [...] Sign Reading Time Taken Comments Blood Pressure 116/74 07/03/2025 12:51 PM EDT Pulse 84 07/03/2025 12:51 PM EDT Temperature 36.1 C (96.9 F) 07/03/2025 12:51 PM EDT Respiratory Rate 21 07/03/2025 12:51 PM EDT Oxygen Saturation 98% 07/03/2025 12:51 PM EDT Inhaled Oxygen Concentration - - Weight 62.7 kg (138 lb 3.2 oz) 07/03/2025 12:51 PM EDT Height 172.7 cm (5' 8 ) 07/03/2025 12:51 PM EDT Body Mass Index 21.01 07/03/2025 12:51 PM EDT documented in this encounter Progress Notes * Jyoti Resendiz NP - 07/03/2025 1:00 PM EDT Images from the original note were not included. SUBJECTIVE: John Ro is a 55 y.o. adult who presents with for complaints of: back pain. John Ro, 55 years - Onset of strong muscle pain on left side of chest and middle of back that started three days ago - Chest pain with mild pressure and heaviness rated 5/10. States pain is worse at night, less intense during the day. - Emergency room visit on July 02, 2025 for similar chest pain; EKG performed, no heart issues found; chest x-ray normal; antibiotics given - Has previously taken muscle relaxers, discontinued use - Denies fever, trauma, recent injury - Denies history of stomach ulcers or bleeding Review of Systems Constitutional: Negative. Negative for chills and fever. HENT: Negative. Negative for congestion and sore throat. Eyes: Negative for discharge. Respiratory: Negative for cough, chest tightness and shortness of breath. Cardiovascular: Negative for chest pain and palpitations. Gastrointestinal: Negative. Negative for abdominal pain, constipation, diarrhea and nausea. Genitourinary: Negative. Negative for difficulty urinating. Musculoskeletal: Positive for back pain. Negative for arthralgias and myalgias. Skin: Negative for rash. Neurological: Negative. Negative for dizziness, speech difficulty, light- headedness and headaches. Hematological: Negative. Psychiatric/Behavioral: Negative for behavioral problems, self-injury and suicidal ideas. The patient is not nervous/anxious. Current Medications[1] Allergies[2] OBJECTIVE: Visit Vitals BP 116/74 (BP Location: Left arm, Patient Position: Sitting, BP Cuff Size: Adult) Pulse 84 Temp 96.9 ??F (36.1 ??C) (Temporal) Resp 21 Ht 5' 8 (1.727 m) Wt 138 lb 3.2 oz (62.7 kg) SpO2 98% BMI 21.01 kg/m?? Smoking Status Former BSA 1.73 m?? Physical Exam Vitals reviewed. Constitutional: General: He is not in acute distress. Appearance: Normal appearance. He is not ill-appearing. HENT: Head: Normocephalic and atraumatic. Right Ear: External ear normal. Left Ear: External ear normal. Nose: Nose normal. Eyes: General: No scleral icterus. Extraocular Movements: Extraocular movements intact. Cardiovascular: Rate and Rhythm: Normal rate and regular rhythm. Pulses: Normal pulses. Heart sounds: Normal heart sounds. Pulmonary: Effort: Pulmonary effort is normal. No respiratory distress. Breath sounds: Normal breath sounds. Musculoskeletal: General: Tenderness present. No swelling. Normal range of motion. Arms: Cervical back: Normal range of motion. Neurological: General: No focal deficit present. Mental Status: He is alert and oriented to person, place, and time. Gait: Gait normal. Psychiatric: Mood and Affect: Mood normal. Behavior: Behavior normal. Assessment & Plan Acute left-sided thoracic back pain - Pain attributed to muscle origin; chest pain and pressure not cardiac in etiology [facility], normal EKG, and normal chest X-ray. - Prescription provided for muscle relaxer and NSAID. - Recommended heat/cold application as preferred, stretching exercises, and pressure point massage with tennis ball against the wall to loosen muscle. - Instructed to return if symptoms worsen or do not improve. - Risks and side effects: Discussed risk of somnolence with muscle relaxer; advised to avoid hazardous activities. Orders: ibuprofen 600 MG tablet; Take 1 tablet (600 mg) by mouth every 6 (six) hours if needed for mild pain for up to 14 days. baclofen (Lioresal) 10 MG tablet; Take one tablet TID PRN Other chest pain -Negative EKG and troponin in ED 1 day ago with pain unchanged -will treat as MSK pain. Plan as noted above -ED precautions reviewed Request for magnesium supplementation: - Advised to consult primary care provider prior to initiating magnesium supplementation to ensure appropriate use and to check for potential drug interactions. Follow-up with PCP as scheduled for routine health or sooner as needed This note was drafted using Ambient (AI) technology. The patient/patient's guardian has been informed and has consented to the use of this technology: Yes Colombian interpretation provided by [facility] Phone Interpretor Tonia ID# [id number] [1] Current Outpatient Medications: Acetaminophen 500 MG capsule, Take 1 capsule (500 mg) by mouth every 8 (eight) hours if needed for moderate pain or fever., Disp: 30 capsule, Rfl: 0 albuterol (Ventolin HFA) 108 (90 Base) MCG/ACT inhaler, INHALE 2 PUFFS BY MOUTH EVERY 4 HOURS NEEDED FOR WHEEZING OR SHORTNESS OF BREATH, Disp: 18 g, Rfl: 11 alfuzosin ER (Uroxatral) 10 MG 24 hr tablet, Take 1 tablet by mouth at bedtime., Disp: , Rfl: amitriptyline (Elavil) 25 MG tablet, TAKE 1 TABLET BY MOUTH AT BEDTIME, Disp: 30 tablet, Rfl: 0 baclofen (Lioresal) 10 MG tablet, Take one tablet TID PRN, Disp: 30 tablet, Rfl: 0 BD Hypodermic Needle 18G X 1 misc, , Disp: , Rfl: BD Plastipak Syringe 3 ML misc, , Disp: , Rfl: benzocaine-menthol (Chloraseptic) 6-10 MG lozenge, Dissolve 1 lozenge in the mouth every 2 (two) hours if needed for sore throat. (Patient not taking: Reported on 06/17/2025), Disp: 100 lozenge, Rfl:0 Blood Pressure kit, Check blood pressure daily, Disp: 1 kit, Rfl: 0 cetirizine (ZyrTEC) 10 MG tablet, TAKE 1 TABLET BY MOUTH EVERY DAY NEEDED FOR ALLERGIES, Disp: 90 tablet, Rfl: 0 cholecalciferol (D3 Super Strength) 50 MCG (2000 UT) capsule, TAKE 1 CAPSULE BY MOUTH EVERY MORNING, Disp: 90 capsule, Rfl: 3 cromolyn (Nasachrom) 5.2 MG/ACT nasal spray, Administer 1 spray into each nostril 4 times daily., Disp: 26 mL, Rfl: 12 Diclofenac Sodium (Voltaren) 1 % gel, Use topical BID, Disp: 100 g, Rfl: 3 Diclofenac Sodium 1 % gel, Apply 2 g topically if needed in the morning, at noon, in the evening, and at bedtime (pain)., Disp: 150 g, Rfl: 3 docusate sodium (Colace) 100 MG capsule, Take 1 capsule (100 mg) by mouth 2 times daily., Disp: 180capsule, Rfl: 3 DULoxetine (Cymbalta) [address] capsule, Take 1 capsule (30 mg) by mouth Once per day. Do not crush or chew., Disp: 30 capsule, Rfl: 2 fluticasone (Flonase) 50 MCG/ACT nasal spray, INSTILL 1 SPRAY IN EACH NOSTRIL ONCE DAILY, Disp: 48 g, Rfl: 0 furosemide (Lasix) 20 MG tablet, TAKE 2 TABLETS BY MOUTH EVERY DAY, Disp: 180 tablet, Rfl: 1 GAS RELIEF 125 MG capsule, TAKE 1 CAPSULE BY MOUTH 4 TIMES A DAY IN THE MORNING, AT NOON, IN THE EVENING, AND AT BEDTIME NEEDED FOR GAS, Disp: 30 capsule, Rfl: 1 hydrOXYzine HCl (Atarax) 25 MG tablet, TAKE 1 TABLET BY MOUTH EVERY 6 HOURS NEEDED FOR ANXIETY OR FOR ITCHING, Disp: 120 tablet, Rfl: 0 ibuprofen 600 MG tablet, Take 1 tablet (600 mg) by mouth every 6 (six) hours if needed for mild pain for up to 14 days., Disp: 42 tablet, Rfl: 0 ipratropium (Atrovent) 0.03 % nasal spray, Administer 1 spray into each nostril every 12 (twelve) hours., Disp: 30 mL, Rfl: 12 Ketotifen Fumarate 0.035 % solution, Administer 1 drop into affected eye(s) if needed in the morning and at bedtime (allergies)., Disp: 10 mL, Rfl: 3 lidocaine (Lidoderm) 5 % patch, Apply 1-2 patches topically if needed each day for mild pain (pain). Remove & discard patch within 12 hours or as directed by MD., Disp: 60 patch, Rfl: 1 loratadine (Claritin) 10 MG tablet, Take 1 tablet (10 mg) by mouth Once per day., Disp: 30 tablet, Rfl: 11 Lotemax 0.5 % gel, INSTILL 1 DROP INTO RIGHT EYE 4 TIMES A DAY, Disp: , Rfl: melatonin 5 MG tablet, TAKE 1 OR 2 TABLETS BY MOUTH EVERY DAY AT BEDTIME NEEDED, Disp: 60 tablet, Rfl: 2 methadone (Dolophine) 10 MG tablet, Take 29 mg by mouth Once per day., Disp: , Rfl: omeprazole (PriLOSEC) [address] capsule, TAKE 1 CAPSULE BY MOUTH TWICE DAILY BEFORE BREAKFAST, Disp:180 capsule, Rfl: 1 polycarbophil (Fibercon) 625 MG tablet, Take 1 tablet (625 mg) by mouth 2 times daily., Disp: 180 tablet, Rfl: 3 polyethylene glycol, PEG, 3350 (MiraLax) 17 GM/SCOOP powder, Take 17 g by mouth if needed each day (constipation)., Disp: 527 g, Rfl: 2 QUEtiapine (SEROquel) 25 MG tablet, Take 25 mg by mouth if needed at bedtime., Disp: , Rfl: Restasis 0.05 % ophthalmic emulsion, Administer 1 drop into both eyes 2 times daily., Disp: , Rfl: rosuvastatin (Crestor) 10 MG tablet, TAKE 1 TABLET BY MOUTH EVERY MORNING, Disp: 90 tablet, Rfl: 3 Spacer/Aero-Holding Chambers (Pro Comfort Spacer Adult) misc, Use with albuterol inhaler, Disp: 1 each, Rfl: 0 sucralfate (Carafate) 1 GM/10ML suspension, Take 10 mL (1 g) by mouth every 6 (six) hours., Disp: 473 mL, Rfl: 0 SUMAtriptan (Imitrex) 50 MG tablet, Take 1 tablet (50 mg) by mouth 1 (one) time if needed for migraine for up to 1 dose. May repeat dose once in 2 hours if no relief. Do not exceed 2 doses in 24 hours., Disp: 9 tablet, Rfl: 0 tamsulosin (Flomax) 0.4 MG 24 hr capsule, Take 0.8 mg by mouth Once per day., Disp: , Rfl: testosterone cypionate (Depo-Testosterone) 200 MG/ML injection, Inject 0.5 mL into the shoulder, thigh, or buttocks once a week. (Patient taking differently: Inject 1 mL into the muscle every 14 (fourteen) days.), Disp: , Rfl: triamcinolone (Kenalog) 0.1 % ointment, APPLY TOPICALLY TWICE DAILY, Disp: 30 g, Rfl: 1 [2] Allergies Allergen Reactions Shellfish Allergy Anaphylaxis Allergy Shellfish Protein-Containing Drug Products Seafood documented in this encounter Plan of Treatment Not on file documented as of this encounter Goals Goal Patient Goal Type Associated Problems Recent Progress Patient-Stated? Author Patient will adhere to medication regimen General Mary Chauhan documented as of this encounter Visit Diagnoses Diagnosis Acute left-sided thoracic back pain- Primary Other chest pain documented in this encounter Additional Health Concerns Assessment Noted Time PHQ-9 Depression Total Score: 8 06/17/20 25 11:48 AM EDT documented as of this encounter Care Teams Associate Manager Relationship Specialty Start Date End Date Clarisse, ANETA Johansen [address] [place] [address] PCP - General Family Medicine 05/01/22 Gregoria Brooks, CHAGO [address] [place] [address] Registered Nurse Family Medicine 06/15/25 Latricia Houser 06/16/25 documented as of this encounter
[2025-07-05 14:10] VITALS: BP 119/72; PULSE 105; RESP 16; TEMP 36.3; O2SAT 98; BMI 20.1
--- NOTE | 2025-07-05 14:12 | ED.ABDPAIN ---
HPI - Abdominal Pain General Chief Complaint: Back Pain/Injury Stated Complaint: high BP Time Seen by Provider: 07/05/25 17:32 History of Present Illness ED Provider: Jamie ANN narrative: The patient is a 55-year-old male with a long history of frequent emergency room visits. Today is his 12th ER visit of the year. The patient says that he was at home today and he felt that the veins on his head were very prominent. He checked his blood pressure and it was 150/85. He became very alarmed. He spoke to his . She advised him to come to the emergency room. He also says that he has been having some pain in his left lower back radiating down his left leg. He says he has chronic pain in his abdomen. No difficulty urinating. Related Data Home Medications ?Medication ?Instructions ?Recorded ?Confirmed cholecalciferol (vitamin D3) 50 50 mcg PO DAILY 06/30/20 06/22/25 mcg (2,000 unit) capsule (Vitamin D3) melatonin 5 mg tablet 5 - 10 mg PO BEDTIME PRN 01/12/23 06/22/25 methadone 40 mg soluble tablet 29 mg PO DAILY 02/28/25 06/22/25 pantoprazole 40 mg tablet,delayed 40 mg PO DAILY 04/10/25 06/22/25 release fluvoxamine 25 mg tablet 25 mg PO BEDTIME 06/22/25 06/22/25 polyethylene glycol 3350 17 gram 17 g PO DAILY 06/22/25 06/22/25 oral powder packet Previous Rx's ?Medication ?Instructions ?Recorded syringe (disposable) 3 mL (BD #25 ea 11/27/24 Luer-Vira Syringe) ibuprofen 400 mg tablet 400 mg PO Q6H PRN pain #14 tabs 12/12/24 docusate sodium 100 mg capsule 100 mg PO BEDTIME PRN constipation 02/27/25 #90 caps famotidine 20 mg tablet 20 mg PO DAILY PRN GERD #90 tabs 02/27/25 sucralfate 1 gram tablet 1 g PO TID PRN Epigastric 04/05/25 discomfort, gastritis #60 tabs tamsulosin 0.4 mg capsule 0.4 mg PO BEDTIME 90 days #90 caps 04/07/25 testosterone cypionate 200 mg/mL 200 mg IM Q2W 28 days #2 mL 08/05/25 intramuscular oil bisacodyl 5 mg tablet,delayed 20 mg (4 x 5 mg) PO ONCE 1 day #4 04/10/25 release (Dulcolax (bisacodyl)) tabs polyethylene glycol 3350 17 238 g PO ONCE #238 grams 04/10/25 gram/dose oral powder (Miralax) needle (disp) 22 G 22 gauge x 1 #30 ea 04/21/25 needle (disp) 18 G 18 gauge x 1 #30 ea 04/23/25 (BD Regular Bevel Garwin) cyclobenzaprine 5 mg tablet 5 mg PO TID PRN muscle spasm 5 04/29/25 days #20 tabs prednisone 20 mg tablet 40 mg (2 x 20 mg) PO DAILY 5 days 04/29/25 #10 tabs docusate calcium 240 mg capsule 240 mg PO DAILY #30 caps 06/13/25 polyethylene glycol 3350 17 17 g PO DAILY #119 grams 06/13/25 gram/dose oral powder (Miralax) acetaminophen 500 mg tablet 1,000 mg (2 x 500 mg) PO Q8H 10 07/02/25 (Tylenol Extra Strength) days #60 tabs azithromycin 250 mg tablet See Rx Instructions PO .COMPLEX #6 07/02/25 tabs [id number]-fcmzooalximxm-grxwoiul 1 cap PO DAILY PRN pain #10 caps 07/02/25 50 mg-325 mg-40 mg capsule Allergies Allergy/AdvReac Type Severity Reaction Status Date / Time SEAFOOD Allergy Severe ANAPHYLAXIS Uncoded 07/05/25 14:11 shellfish Allergy Severe Anaphylaxis Uncoded 07/05/25 14:11 Review of Systems Review of Systems Yes all other systems are reviewed and are negative PMFSH Past Medical History Medical History Constipation Anemia Hx of substance abuse Smoker History of Helicobacter pylori infection Spinal pain Hypogonadism Erectile dysfunction Hx: UTI (urinary tract infection) BPH (benign prostatic hyperplasia) Hx of hepatitis C GERD (gastroesophageal reflux disease) Anxiety and depression HTN (hypertension) Murmur Surgical History Hx of cystoscopy Family History Family History Mother Diabetes Social History Social History (Reviewed 06/22/25 @ 10:54 by BARBY George Alcohol intake: former Patient Tobacco Use Status: Current everyday Tobacco user Substance Use Type: Crack/Cocaine and Heroin Current occupational status: unemployed Physical Exam ED Vital Signs: Vital Signs - 24 hr 07/05/25 14:10 Temperature 97.4 F Pulse Rate 105 H Respiratory Rate 16 Blood Pressure 119/72 Pulse Oximetry 98 Oxygen Delivery Method Room Air BMI result Body Mass Index 20.1 Const Other: The patient is a slim 55-year-old male who does not appear ill. HENMT Other: The face is symmetrical. ?Mucous membranes moist. Eyes Other: Pupils are round equal, conjunctivae are clear, extraocular movements intact Neck Neck: Yes normal visual inspection, Yes full ROM, Yes no lymphadenopathy and Yes no JVD Resp Effort & Inspection: normal respiratory effort Auscultation: clear to auscultation bilaterally Cardio Rate: regular rate Rhythm: regular rhythm Heart sounds: S1 normal heart sound present and S2 normal heart sound present GI Other: The patient has a slim, flat abdomen. The patient had what seemed to be uncontrollable voluntary guarding because of anxiety and, according to him, my called hands. I did not feel he had any definite abdominal findings. Back/Spine/Pelvis Other: No significant midline C-spine tenderness. No CVA tenderness. Skin Other: Skin is dry and unremarkable Neuro Other: The patient is awake and alert with a normal mental status. Cranial nerves are grossly intact. He moves his extremities normally and appropriately. His gait is normal. His ankle and knee reflexes are normal. He seems entirely neurologically intact. Extrem Other: There is no calf swelling or tenderness. No asymmetry. No peripheral edema. Course Course Course Narrative: This is a Rapid Medical Exam performed in triage by Fatmata Florentino PA-C. Full HPI, ROS and PE to be performed by primary ED provider. 55 yo Bolivian speaking male w/pmhx GERD, presenting to the ED c/o L side abdominal pain radiating to LLE & high BP x2 hrs. Denies urinary symptoms PE: Normotensive, ambulating with steady gait Plan: Labs, UA Medical Decision Making Medical Decision Making MDM Narrative: The patient is a 55-year-old male with frequent ER visits. Today his complaint is that he thought the veins in his forehead were very prominent and he was concerned because he checked his blood pressure at home and it was 150/85. Also he is complaining of some left lower back pain radiating down his left leg but he is moving around entirely easily and comfortably and looks entirely well. My suspicion for any dangerous process at all his extremely low. He will be advised to use acetaminophen and to follow up with his PCP. Lab Data 07/05/25 15:10 07/05/25 15:10 Labs: Lab Results 07/05/25 Range/Units 15:10 WBC 7.5 (4.8-10.8) X10*3/uL RBC 4.47 L (4.60-5.80) X10*6/uL Hgb 14.5 (14.0-18.0) g/dl Hct 43.0 (42.0-52.0) % MCV 96.2 (80.0-98.0) fL MCH 32.4 (27.0-33.0) pg MCHC 33.7 (31.0-36.0) g/dl RDW 11.9 (11.0-16.0) % Plt Count 203 (160-400) X10*3/uL MPV 10.5 (9.4-12.4) fL Immature Gran % (Auto) 0.3 (0.0-0.4) % Neut % (Auto) 79.4 H (45-73) % Lymph % (Auto) 14.6 L (20-40) % [place] % (Auto) 4.7 (2-11) % Eos % (Auto) 0.7 (0-4) % Baso % (Auto) 0.3 (0-2) % Lymph # (Auto) 1.1 L (1.2-4.9) X10*3/uL [place] # (Auto) 0.4 (0.1-1.2) X10*3/uL Eos # (Auto) 0.1 (0.0-0.4) X10*3/uL Baso # (Auto) 0.0 (0.0-0.2) X10*3/uL Abs Immat Gran (auto) 0.02 (0.00-0.03) X10*3/uL Absolute Neuts (auto) 6.0 (2.0-8.3) x10*3/uL Absolute Nucleated RBC 0.000 (0.0-0.012) X10*3/uL Nucleated RBC % (auto) 0.0 (0.0-0.2) /100WBC Sodium 140 (135-145) mmol/L Potassium 3.5 (3.3-5.1) mmol/L Chloride 102 (96-108) mmol/L Carbon Dioxide 27 (22-29) mmol/L Anion Gap 15 (12-20) BUN 10 (9-16) mg/dL Creatinine 0.83 (0.5-1.4) mg/dL Estim Creat Clear Calc 83.1 Estimated GFR > 60 Random Glucose 139 H (60-115) mg/dL Calcium 9.0 (8.4-10.2) mg/dL Total Bilirubin 1.3 H (0.0-1.0) mg/dL Direct Bilirubin 0.5 (0.0-0.5) mg/dL AST 23 (5-37) U/L ALT 20 (0-40) U/L Alkaline Phosphatase 47 (39-117) U/L Total Protein 7.2 (6.5-8.0) g/dL Albumin 4.8 (3.5-5.0) g/dL Lipase 16 (8-78) U/L Discharge Plan Discharge Clinical Impression: Low back pain radiating to left leg Patient Disposition: Home, Self-Care Instructions: Acute Low Back Pain (ED) Additional Instructions: I do not think that your symptoms today indicate any dangerous process. You may use acetaminophen as needed for your discomfort. Please follow up soon with your regular doctor. Prescriptions: No Action (DME) syringe (disposable) [BD Luer-Vira Syringe] 3 mL syringe See Rx Instructions .Route Qty: 25 0RF Rx Instructions: As directed 1 syringe [id number] 2 syringes total per month for T injection (DME) needle (disp) 22 G 22 gauge x 1 needle See Rx Instructions .Route Qty: 30 0RF Rx Instructions: As directed to inject testosterone (DME) needle (disp) 18 G [BD Regular Bevel Garwin] 18 gauge x 1 needle See Rx Instructions .Route Qty: 30 0RF Rx Instructions: As directed to draw testosterone cholecalciferol (vitamin D3) [Vitamin D3] 50 mcg (2,000 unit) Capsule 50 mcg PO DAILY methadone 40 mg tablet,soluble 29 mg PO DAILY ibuprofen 400 mg tablet 400 mg PO Q6H PRN (Reason: pain) Qty: 14 0RF sucralfate 1 gram tablet 1 g PO TID PRN (Reason: Epigastric discomfort, gastritis) Qty: 60 0RF cyclobenzaprine 5 mg tablet 5 mg PO TID PRN (Reason: muscle spasm) 5 Days Qty: 20 0RF prednisone 20 mg tablet 40 mg PO DAILY 5 Days Qty: 10 0RF docusate calcium 240 mg capsule 240 mg PO DAILY Qty: 30 0RF polyethylene glycol 3350 [Miralax] 17 gram/dose powder 17 g PO DAILY Qty: 119 0RF azithromycin 250 mg tablet See Rx Instructions .ROUTE .COMPLEX Qty: 6 0RF Rx Instructions: For 250 mg dose pack: take 500 mg today (day 1), then 250 mg for 4 days (days 2-5) nufyujmszr-igihemhdmafel-osdf 50-325-40 mg capsule 1 cap PO DAILY PRN (Reason: pain) Qty: 10 0RF acetaminophen [Tylenol Extra Strength] 500 mg tablet 1,000 mg PO Q8H 10 Days Qty: 60 0RF polyethylene glycol 3350 17 gram powder in packet 17 g PO DAILY fluvoxamine 25 mg tablet 25 mg PO BEDTIME pantoprazole 40 mg tablet,delayed release (DR/EC) 40 mg PO DAILY bisacodyl [Dulcolax (bisacodyl)] 5 mg tablet,delayed release (DR/EC) 20 mg PO ONCE 1 Days Qty: 4 0RF Rx Instructions: Take four tablets pre colonoscopy instructions polyethylene glycol 3350 [Miralax] 17 gram/dose powder 238 g PO ONCE Qty: 238 0RF Rx Instructions: per colonoscopy prep instructions melatonin 5 mg tablet 5 - 10 mg PO BEDTIME PRN famotidine 20 mg tablet 20 mg PO DAILY PRN (Reason: GERD) Qty: 90 1RF Rx Instructions: Take one tablet daily at bedtime as needed docusate sodium 100 mg capsule 100 mg PO BEDTIME PRN (Reason: constipation) Qty: 90 0RF Rx Instructions: Take one tablet at bedtime as needed for constipation tamsulosin 0.4 mg capsule 0.4 mg PO BEDTIME 90 Days Qty: 90 1RF testosterone cypionate 200 mg/mL oil 200 mg IM Q2W 28 Days Qty: 2 5RF Referrals: Rushford,Haily, BOARD HANDLER [Primary Care Provider, Medical] Print Language: Bolivian
[2025-07-05 15:29] LABS: MANUAL DIFF FLAG NO
[2025-07-05 15:32] LABS: Hematocrit 43.0 % (42.0-52.0); Hemoglobin 14.5 g/dl (14.0-18.0); Imm Gran Abs Auto 0.02 X10*3/uL (0.00-0.03); Imm Gran Pct Auto 0.3 % (0.0-0.4); Lymphocytes Absolute Auto 1.1 X10*3/uL (1.2-4.9); Mean Corpuscular HGB Conc 33.7 g/dl (31.0-36.0); Mean Corpuscular Hemoglobin 32.4 pg (27.0-33.0); Mean Corpuscular Volume 96.2 fL (80.0-98.0); NRBC Abs Auto 0.000 X10*3/uL (0.0-0.012); NRBC Pct Auto 0.0 /100WBC (0.0-0.2); Platelet Count 203 X10*3/uL (160-400); Red Blood Count 4.47 X10*6/uL (4.60-5.80); White Blood Count 7.5 X10*3/uL (4.8-10.8)
[2025-07-05 15:46] LABS: Alanine Aminotransferase 20 U/L (0-40); Albumin Level 4.8 g/dL (3.5-5.0); Alkaline Phosphatase 47 U/L (39-117); Anion Gap 15 (12-20); Aspartate Amino Transferase 23 U/L (5-37); Blood Urea Nitrogen 10 mg/dL (9-16); Calcium 9.0 mg/dL (8.4-10.2); Carbon Dioxide 27 mmol/L (22-29); Chloride 102 mmol/L (96-108); Creatinine Clr Calc Pharmacy 83.1; Estimated Glomerular Filt Rate > 60; Lipase 16 U/L (8-78); Potassium 3.5 mmol/L (3.3-5.1); Sodium 140 mmol/L (135-145); Total Protein 7.2 g/dL (6.5-8.0)
--- OUTSIDE RECORDS SUMMARY | 2025-07-05 17:55 | XMS_ITS | Encounter Summary ---
Author Organization [employer] Address [address] [facility] [address] [place] [address] Care Team Providers Care Corporate Compliance Director Name Role Phone Gambell, [facility] Primary Care Provider Gregoria Brooks RN Unavailable [phone] Latricia Houser Unavailable Encounter Details Date Type Department Care Team (Late st Contact Info) Description 06/04/2025 Telephone [facility] MEDICINE [address] [place], [place] [phone] Gambell Collins, [facility] [address] [place], [place] [phone] Social History Tobacco Use Types Packs/Day Years [...] as of this encounter Care Teams Corporate Compliance Director Relationship Specialty Start Date End Date Haily Robb FNP [address] [place] [id number] PCP - General Family Medicine 05/01/22 Gregoria Brooks RN [address] [place] [phone] Registered Nurse Family Medicine 06/15/25 Latricia Houser 06/16/25 documented as of this encounter
--- OUTSIDE RECORDS SUMMARY | 2025-07-05 17:55 | XMS_ITS | Encounter Summary ---
Author Organization [employer] Address [address] [facility] 7t [place] [address] Care Team Providers Care Dopster Name Role Phone Haily Robb DIGITAL ASSET COORDINATOR Primary Care Provider [phone] Gregoria Brooks RN Unavailable [phone] Latricia Houser Unavailable Reason for Visit * Reason Onset Date Comments Appointment Request 10/08/2023 Encounter Details Date Type Department Care Team (Late st Contact Info) Description 10/08/2023 Telephone [facility] MEDICINE [address] [place], [place] [phone] Haily Robb FNP [address] [place], [place] [phone] Appointment Request Social History Tobacco Use Types [...] gotten any better. Please contact pt at [phone] documented in this encounter Plan of Treatment Not on file documented as of this encounter Visit Diagnoses Not on filedocumented in this encounter Additional Health Concerns Assessment Noted Time PHQ-9 Depression Total Score: 0 08/15/20 23 3:52 PM EST documented as of this encounter Care Teams Dopster Relationship Specialty Start Date End Date Haily Robb FNP [address] [place] [id number] PCP - General Family Medicine 05/01/22 Gregoria Brooks RN [address] [place] [phone] Registered Nurse Family Medicine 06/15/25 Latricia Houser 06/16/25 documented as of this encounter
--- OUTSIDE RECORDS SUMMARY | 2025-07-05 17:55 | XMS_ITS | Encounter Summary ---
Author Organization [employer] Address [address] [facility] 7t [place] [address] Care Team Providers Care Application Systems Administrator Name Role Phone Clarisse [facility] Primary Care Provider [phone] Gregoria Brooks RN Unavailable [phone] Latricia Houser Unavailable Reason for Visit * Reason Onset Date Comments triage 11/10/2022 Encounter Details Date Type Department Care Team (Late st Contact Info) Description 11/10/2022 Telephone [facility] MEDICINE [address] [place], [place] [phone] ClarisseHaily [facility] 230 [place], [place] [phone] triage Social History Tobacco Use Types Packs/Day [...] Pt agrees to come into [facility] for exam. Pt also advised to call [...] question The caller accepted this outcome speaks indonesian documented in this encounter Plan of Treatment Not on file documented as of this encounter Visit Diagnoses Not on filedocumented in this encounter Additional Health Concerns Assessment Noted Time PHQ-9 Depression Total Score: 0 11/03/19 10:32 AM EST documented as of this encounter Care Teams Application Systems Administrator Relationship Specialty Start Date End Date Haily Robb FNP [address] [place] [id number] PCP - General Family Medicine 05/01/22 Gregoria Brooks RN [address] [place] [address] Registered Nurse Family Medicine 06/15/25 Latricia Houser 06/16/25 documented as of this encounter
--- OUTSIDE RECORDS SUMMARY | 2025-07-05 17:55 | XMS_ITS | Encounter Summary ---
Author Organization [employer] Address [address] [facility] 7t [place] [address] Care Team Providers Care Cloud Engagement Partner Name Role Phone Clarisse [facility] Primary Care Provider [phone] Gregoria Brooks RN Unavailable Latricia Houser Unavailable Reason for Visit * Reason Comments Med Refill Encounter Details Date Type Department Care Team (Late st Contact Info) Description 01/01/2023 Refill [facility] MEDICINE [address] [place], [place] [phone] Hopkins Haily [facility] 230 [place], [place] [phone] Chronic sinusitis, unspecified location Social History Tobacco [...] documented as of this encounter Care Teams Cloud Engagement Partner Relationship Specialty Start Date End Date Haily Robb FNP [address] [place] [address] PCP - General Family Medicine 05/01/22 Gregoria Brooks RN [address] [place] [address] Registered Nurse Family Medicine 06/15/25 Latricia Houser 06/16/25 documented as of this encounter
--- OUTSIDE RECORDS SUMMARY | 2025-07-05 17:55 | XMS_ITS | Encounter Summary ---
Author Organization [employer] Address [address] [facility] 7t [place] [address] Care Team Providers Care Social Security Specialist Name Role Phone Haily Robb CONTRACT ADMINISTRATION MANAGER Primary Care Provider [phone] Gregoria Brooks RN Unavailable [phone] Latricia Houser Unavailable Reason for Visit * Reason Comments Med Refill Encounter Details Date Type Department Care Team (Late st Contact Info) Description 10/29/2023 Refill [facility] [address] [place], [place] [phone] Name, MD Collins [address] [place], [place] [phone] Chronic neck pain Social History Tobacco Use [...] documented as of this encounter Care Teams Social Security Specialist Relationship Specialty Start Date End Date MonaHaily FNP [address] [place] [address] PCP - General Family Medicine 05/01/22 Gregoria Brooks RN [address] [place] [address] Registered Nurse Family Medicine 06/15/25 Latricia Houser 06/16/25 documented as of this encounter
--- OUTSIDE RECORDS SUMMARY | 2025-07-05 17:55 | XMS_ITS | Encounter Summary ---
Author Organization [employer] Address [address] [facility] 7t [place] [address] Care Team Providers Care Rehanger Name Role Phone Tripp [facility] Primary Care Provider Gregoria Brooks RN Unavailable [phone] Latricia Houser Unavailable Reason for Visit * Reason Comments Med Refill Encounter Details Date Type Department Care Team (Late st Contact Info) Description 09/05/2022 Telephone [facility] MEDICINE [address] [place], [place] [phone] [facility] [address] [place] [address] Med Refill Social History Tobacco Use Types [...] - 09/06/2022 8:18 AM EST TC via P/I#[id number], explained to pt that his Clonazepam was prescribed from his psychiatric providerat [address] [facility] [place]. Provided pt the phone [facility] for [facility] and encouraged him to call them for all refills of his Clonazepam. Pt thanked jingle writer and said he understood. * Telephone Encounter - Yessi Cannon RN - 09/05/2022 3:04 PM EST Note on 08/02/22: Medication request:CLONAZEPAM Last visit 06/27/22. You sent a refill in June, it was picked up 07/12/22. He was originally getting this elsewhere. Not sure what you'd like to do. If you'll now be prescribing, then would you like him on FELLER HAND? documented in this encounter Plan of Treatment Not on file documented as of this encounter Visit Diagnoses Diagnosis Other specified anxiety disorders documented in this encounter Care Teams Rehanger Relationship Specialty Start Date End Date Haily Robb FNP [address] [place] [phone] PCP - General Family Medicine 05/01/22 Gregoria Brooks RN [address] [place] [phone] Registered Nurse Family Medicine 06/15/25 Latricia Houser 06/16/25 documented as of this encounter
--- OUTSIDE RECORDS SUMMARY | 2025-07-05 17:55 | XMS_ITS | Clinical Summary ---
Author Organization [employer] Address [address] [place] [address] Care Team Providers Care Material Movers Name Role Phone Clarisse [facility] Primary Care Provider [phone] Gregoria Brooks RN Unavailable [phone] Latricia Houser Unavailable Allergies Active Allergy [...] Additional Information Patient not taking.Reported on 06/17/2025 cetirizine (ZyrTEC) 10 MG tabletIndications :Seasonal allergies TAKE 1 TABLET BY MOUTH EVERY DAY NEEDED FOR ALLERGIES 90 tablet 025 Active triamcinolone (Kenalog) 0.1 % ointmentIndicatio ns:Stasis dermatitis APPLY TOPICALLY TWICE DAILY 30 g 1 025 Active SUMAtriptan (Imitrex) 50 MG tabletIndications [...] TABLET BY MOUTH AT BEDTIME 30 tablet Active polycarbophil (Fibercon) 625 MG tabletIndications :Slow transit constipation Take 1 tablet (625 mg) by mouth 2 times daily. 180 tablet 3 2025 Active polyethylene glycol, PEG, 3350 (MiraLax) 17 GM/SCOOP powderIndications :Slow transit constipation Take 17 g by mouth if needed each day (constipation) . 527 g 2 2025 Active Acetaminophen 500 MG capsuleIndication s:Acute non intractable tension-type headache Take 1 capsule (500 mg) by mouth every 8 (eight) hours if needed for moderate pain or fever. 30 capsule 2024 Active GAS RELIEF 125 MG capsule TAKE 1 CAPSULE BY MOUTH 4 TIMES A DAY IN THE MORNING, AT NOON, IN THE EVENING, AND AT BEDTIME NEEDED FOR GAS 30 capsule 1 Active ibuprofen 600 MG tabletIndications :Acute left-sided thoracic back pain Take 1 tablet (600 mg) by mouth every 6 (six) hours if needed for mild pain for up to 14 days. 42 tablet 2024 Active baclofen (Lioresal) 10 MG tabletIndications :Acute left-sided thoracic back pain Take one tablet TID PRN 30 tablet Active polycarbophil (Fibercon) 625 MG tablet Take 1 tablet (625 mg) by mouth 2 times daily. 180 tablet 3 2024 Discontinued(R eorder (will not trigger notification to Pharmacy)) polyethylene glycol, PEG, 3350 (MiraLax) 17 GM/SCOOP powder Take 17 g by mouth if needed each day (constipation) . 527 g 2 2024 Discontinued(R eorder (will not trigger notification to Pharmacy)) naproxen (Naprosyn) 500 MG tabletIndications :Acute midline low back pain without sciatica Take 1 tablet (500 mg) by mouth if needed in the morning and at bedtime for mild pain. 40 tablet 1 025 2024 Discontinued(M ed list cleanup (will not trigger notification to Pharmacy)) cyclobenzaprine (Flexeril) 10 MG tabletIndications :Chronic bilateral low back pain without sciatica Take 1 tablet (10 mg) by mouth 3 times daily for 10 days. 30 tablet 025 2024 Discontinued(A lternate therapy) Acetaminophen 500 MG capsule Take 1 capsule [...] Avoidance of pollen as much as possible. [place] of ophthalmic mast cell stabilizer, nasal steroid and antihistamine. LLQ pain 01/06/2025 Assessment & Plan (01/06/2025 11:25 AM EDT): No evidence of acute abdomen. Chronic. He needs colon cancer screening and has been referred to [facility] in the past. He was encouraged to call in November but did not. We called today to facilitate appointment and give him the number to call. ER precautions discussed. [facility] reports pt has to call himself due to cancelled and did not make follow up. He was given the number [phone]. I stressed the importance of following up [...] any case Continue Carafate Call GI at [facility] for EGD and colonoscopy Eat small frequent [...] 03/2023 Established with therapy and psychiatry at [facility] No rash, fever, chills, lymphadenopathy Odynophagia [...] a good support system through his family, anglican and recovery network, as well as having [...] to explore potential nerve damage due to intermediate card tender use of anxiolytics, even though John is on low dose medication. At this time is unclear if crawling/burning sensation on skin is solely due to medical and/or somatic presentation. However, sxs are causing significant psychological distress in patient. John was given information on how to reach out to [facility] team and [facility] numbers for crisis. He was also encouraged [...] in male 11/02/2022 Overview (11/02/2022): Followed by [facility] urology Dr. Lux subcutaneous testosterone injection Assessment [...] of this appointment. His appointment is at [facility] Tb clinic [phone] on January 27 at 11:00 am. He [...] depressive disorder 02/22/2017 Overview (08/05/2023): Followed by [facility] Clonazepam PRN Clonidine PRN Assessment & Plan (11/06/2022 5:05 AM EST): Spoke with [facility]-the blue conazepam tablets that patient prefer are from a different manager audit and are on back order. Pt will [...] Encounters Date Type Department Care Team Description 07/05/2025 Orders Only GENERIC EXTERNAL DATA DEPARTMENT Provider, Generic External Data 07/03/2025 1:00 PM EDT Office Visit [facility] [address] [place] [phone] Jyoti Resendiz NP Acute left-sided thoracic back pain (Primary Dx); Other chest pain 07/03/2025 Travel 07/03/2025 Telephone [facility] [address] [place] [address] Haily Robb FNP ER Follow-up 07/02/2025 Orders Only GENERIC EXTERNAL DATA DEPARTMENT Provider, Generic External Data 07/01/2025 Patient Outreach [facility] [address] [place] [phone] Haily Robb FNP Care Management (C3CM- FOLLOW UP CALL) 06/30/2025 Patient Outreach [address] [address] Haily Robb FNP Care Coordination (C3 CM-CHW Latricia Houser telephone call outreach/) 06/24/2025 2:40 PM EDT [facility] [address] [address] Hollis Rutledge MD Erythema (Primary Dx); Positive QuantiFERON-TB Gold test 06/24/2025 Results [facility]-Up [facility] [address] [address] Hollis Rutledge MD XR Chest 2 Views 06/24/2025 Patient Outreach [address] [address] Lino Holder Recovery Supports 06/24/2025 Travel 06/24/[address] [address] Hermes Black, RN OBAT Communication 06/24/[address] [address] Haily Robb FNP Results 06/23/2025 Patient Outreach [address] [address] Haily Robb FNP Care Management (C3CM- FOLLOW UP CALL ) 06/23/2025 [facility]ill [facility] [address] [address] Roxana Gotti DO 06/22/2025 1:20 PM EDT Office Visit [address] [address] Sanam Noland MD Acute non intractable tension-type headache; Palpitations; Left lower quadrant abdominal pain; Slow transit constipation 06/18/2025 Plan of Care Documentation [address] [address] 06/18/2025 Patient Outreach [address] [address] Haily Robb FNP Care Coordination 06/17/2025 Plan of Care Documentation [address] [address] 06/17/2025 Patient Outreach [address] [address] Haily Robb FNP Care Management (C3 COMPLEX INITIAL ASSESSMENT/ ENROLLMENT-/) 06/16/2025 Patient Outreach [facility] [place] [place] [address] Haily Robb FNP Care Coordination (C3 -[facility] Latricia Houser telephone call outreach) 06/16/2025 Patient Outreach [facility] Miguel [facility] [place] [address] Haily Robb FNP Care Coordination (C3 -[facility] Latricia Houser chart review) 06/16/2025 Patient Outreach [facility] José Miguel [facility] [place] [address] Haily Robb FNP Care Management (C3 -CHART REVIEW ) 06/15/2025 Patient Outreach [address] [place] [place] [address] Haily Robb FNP 06/13/2025 Orders Only GENERIC EXTERNAL DATA DEPARTMENT Provider, Generic External Data 06/10/2025 2:00 PM EDT Office [address] [place] [address] Haily Robb [facility] Somatic symptom disorder, persistent, moderate (Primary Dx); Latent tuberculosis; Encounter for immunization 06/10/2025 Travel 06/09/[address] [address] Haily Robb [facility] 06/04/[address] [address] ClarisseHaily molina [facility] 06/04/2025 Refill [facility] [address] [place] [address] Elda Love MD Seasonal allergies; Chronic nonintractable headache, unspecified headache type 06/03/[address] [place] [address] Haily Robb [facility] Epigastric pain 06/03/2025 Refill [facility] [address] [place] [address] Roxana Gotti DO 06/03/2025 Patient Outreach [address] [address] [facility] Pre-[facility] Planning (SDOH screening negative and tobacco screening negative) 06/03/2025 Refill [facility] [address] [address] Haily Robb, CATERING COORDINATOR Restless leg 06/02/2025 3:40 PM EDT Office Visit [facility] [address] [address] Elda Love MD Acute URI (Primary Dx) 06/02/2025 Travel 05/31/2025 [facility]ill [facility] [address] [address] [facility] Restless [facility] 05/27/2025 Refill [facility] [address] [address] Jana Morgan MD Bilateral lower extremity edema 05/19/2025 Orders Only [address] [address] Sanam Noland MD Chronic bilateral low back pain without sciatica (Primary Dx) 05/19/[address] [address] [facility] Med Refill 05/15/2025 10:00 AM EDT [facility] [address] [address] Collins Reyes MD Bloating (Primary Dx); Drug-induced constipation; Concern about diabetes mellitus without diagnosis 05/15/2025 Travel 05/14/2025 Refill [facility] [address] [address] Roxana Gotti DO Epigastric pain 05/12/2025 9:20 AM EDT [facility] [address] [address] Elda Love MD Chronic nonintractable headache, unspecified headache type 05/12/2025 Travel 05/08/2025 Telephone [facility] [address] [place] [address] [facility], [facility] Referral 05/05/2025 Telephone [facility] [address] [place] [address] [facility] Jun/jul recall 05/04/2025 Refill [facility] [address] [place] [address] [facility] Wheezing 05/02/2025 Refill [facility] [address] [place] [address] [facility] Mixed anxiety and depressive disorder; Wheezing 04/29/2025 Orders Only GENERIC EXTERNAL DATA DEPARTMENT Provider, Generic External Data 04/27/2025 1:40 PM EDT [facility] [address] [address] Sanam Noland MD Chronic bilateral low back pain without sciatica (Primary Dx); Chronic nonintractable headache, unspecified headache type 04/27/2025 Travel 04/21/2025 10:20 AM EDT Office Visit [facility] [address] [place] [address] Collins Reyes MD Chronic nonintractable headache, unspecified headache type (Primary Dx) 04/21/2025 Travel 04/06/2025 Refill [facility] [address] [place] [address] Gema Gar, CATERING COORDINATOR Stasis dermatitis 04/05/2025 Orders Only GENERIC EXTERNAL DATA DEPARTMENT Provider, Generic External Data 04/04/2025 10:20 AM EDT Office Visit [facility] [address] [place] [address] Francy Jennings MD Benign prostatic hyperplasia with [...] Mass Index 21.01 07/03/2025 12:51 PM EDT Plan of Treatment Health Maintenance [...] Depression Screening 06/17/2026 06/17/2025, 06/17/20 Tobacco Screening 07/03/2026 07/03/2025 Dental X-Ray: Full Mouth 09/12/2026 09/11/2023, 06/04 [...] will adhere to medication regimen General No Cardaropoli, Hernandez Procedures Procedure Name Priority Date/Time Associated Diagnosis Comments LIPASE Routine 07/05/2025 3:10 PM EST BASIC METABOLIC PANEL Routine 07/05/2025 3:10 PM EST HEPATIC FUNCTION PANEL Routine 3:10 PM EST CBC WITH AUTO DIFFERENTIAL Routine 07/05/2025 3:10 PM EST US ABDOMEN COMPLETE Routine 07/03/2025 9 :12 PM EDT Epigastric pain XR CHEST 1 VIEW Routine 07/02/2025 3:55 [...] Maintenance Results * (ABNORMAL) CBC auto differential (07/05/2025 3:10 PM EST) Only the most recent of5 resultswithin the time period is included. White Blood Count 7.5 4.8 - 10.8 X10*3/uL [facility] Red Blood Count 4.47(L) 4.60 - 5.80 X10*6/uL [facility] Hemoglobin 14.5 14.0 - 18.0 g/dl [facility] Hematocrit 43.0 42.0 - 52.0 % [facility] Mean Corpuscular Volume 96.2 80.0 - 98.0 fL [facility] Mean Corpuscular Hemoglobin 32.4 27.0 - 33.0 pg [facility] Mean Corpuscular HGB Conc 33.7 31.0 - 36.0 g/dl [facility] Red Cell Distribution Width 11.9 11.0 - 16.0 % [facility] Platelet Count 203 160 - 400 X10*3/uL [facility] Mean Platelet Volume 10.5 9.4 - 12.4 fL [facility] Neutrophils Percent Auto 79.4(H) 45 - 73 % [facility] Imm Gran Pct Auto 0.3 0.0 - 0.4 % [facility] Lymphocytes Percent Auto 14.6(L) 20 - 40 % [facility] Monocytes Percent Auto 4.7 2 - 11 % [facility] Eosinophils Percent Auto 0.7 0 - 4 % [facility] Basophils Percent Auto 0.3 0 - 2 % [facility] NRBC Pct Auto 0.0 0.0 - 0.2 /100WBC [facility] Neutrophils Absolute Auto 6.0 2.0 - 8.3 x10*3/uL [facility] Imm Gran Abs Auto 0.02 0.00 - 0.03 X10*3/uL [facility] Lymphocytes Absolute Auto 1.1(L) 1.2 - 4.9 X10*3/uL [facility] Monocytes Absolute Auto 0.4 0.1 - 1.2 X10*3/uL [facility] Eosinophils Absolute Auto 0.1 0.0 - 0.4 X10*3/uL [facility] Basophils Absolute Auto 0.0 0.0 - 0.2 X10*3/uL [facility] NRBC Abs Auto 0.000 0.0 - 0.012 X10*3/uL [facility] 07/05/2025 3:10 PM EST 07/05/2025 3:28 PM EST us Generic External Data Provider LAB BLOOD ORDERAB LES Final Result [facility] [address] [place] [phone] * Lipase (07/05/2025 3:10 PM EST) Only the most recent of3 resultswithin the time period is included. Lipase 16 8 - 78 U/L [facility] 07/05/2025 3:10 PM EST 07/05/2025 3:28 PM EST us Generic External Data Provider LAB BLOOD ORDERAB LES Final Result Performing Organization Address [facility] Co de Phone Number [facility] [address] [place] [phone] * (ABNORMAL) Hepatic Function Panel (07/05/2025 3:10 PM EST) Bilirubin, Total 1.3(H) 0.0 - 1.0 mg/dL [facility] Bilirubin, Direct 0.5 0.0 - 0.5 mg/dL [facility] Aspartate Amino Transferase 23 5 - 37 U/L [facility] Alanine Aminotransferase 20 0 - 40 U/L [facility] Total Protein 7.2 6.5 - 8.0 g/dL [facility] Albumin Level 4.8 3.5 - 5.0 g/dL [facility] Alkaline Phosphatase 47 39 - 117 U/L [facility] 07/05/2025 3:10 PM EST 07/05/2025 3:28 PM EST Generic External Data Provider LAB BLOOD ORDERAB LES Final Result Performing Organization Address [facility] de Phone Number [facility] [address] [place] [phone] * (ABNORMAL) Basic Metabolic Panel (07/05/2025 3:10 PM EST) Only the most recent of3 resultswithin the time period is included. Sodium 140 135 - 145 mmol/L [facility] Potassium 3.5 3.3 - 5.1 mmol/L [facility] Chloride 102 96 - 108 mmol/L [facility] Carbon Dioxide 27 22 - 29 mmol/L [facility] Anion Gap 15 12 - 20 [facility] Urea Nitrogen (BUN) 10 9 - 16 mg/dL [facility] Creatinine, Serum 0.83 0.5 - 1.4 mg/dL [facility] Creatinine Clr Calc Pharmacy 83.1 [facility] Comment:eGFR (calculated fro m the MDRD study equation) and eCrCl(calculated from the Cockcroft-Gault equation) are based ondifferent parameters and may not yield comparable results.If eCrCl result is absurd, please check patient'sheight/weight. Estimated Glomerular Filt Rate >60 [facility] Comment:Chronic Kidney Disea se: Estimated GFR < 60 mL/min/1.83l3Ziwasb Kidney Disease: Estimated GFR < 15 mL/min/1.73m2 Glucose 139(H) 60 - 115 mg/dL [facility] Calcium 9.0 8.4 - 10.2 mg/dL [facility] 07/05/2025 3:10 PM EST 07/05/2025 3:28 PM EST us Generic External Data Provider LAB BLOOD ORDERAB LES Final Result Performing Organization Address City/State/[facility] Co de Phone Number [facility] [address] [place] [phone] * US Abdomen Complete (07/03/2025 9:12 PM EDT) Anatomical Region Laterality Modality Abdomen Ultrasound 07/03/2025 9:12 PM EDT Narrative 07/03/2025 9:14 PM EDT [address] [address] Ultrasound Report Signed Patient: John Fitzpatrick MR#: [id number] : 1970 Acct:[id number] Age/Sex: 55 / M ADM Date: 07/03/25 Loc: HO. Attending Dr: Roxana Gotti DO Ordering Physician: Roxana Gotti DO Date of Service: 07/03/25 Procedure(s): US abdomen complete Accession Number(s): [id number] cc: Roxana Gotti DO; [facility] Reason for Exam: epigastric pain CLINICAL HISTORY: epigastric pain US abdomen complete with color Doppler Comparison: CT/SR - CT ABDOMEN PELVIS W IV CON - 03/01/25 19:[address] - CT ABDOMEN PELVIS W IV CON - 03/01/25 19:08 EDT CR - XR KUB - 03/01/25 16:11 EDT US/SR - US ABDOMEN LIMITED - 03/15/22 14:39 EDT Findings: The visualized pancreas, aorta, and inferior vena cava are unremarkable. Liver normal size and echotexture. Right lobe 13.9 cm length. No focal hepatic masses. Common duct 5.0 mm diameter. Physiologic distention of the gallbladder. No gallstones or sludge. No gallbladder wall thickening. No pericholecystic fluid. A sonographic rowe's sign was not comminuted by the technologist Main portal vein antegrade. Right kidney normal size, 9.8 cm in length. Normal cortical width and echotexture. No solid or cystic renal masses. No nephrolithiasis. No hydronephrosis. Left kidney normal, 9.8 cm in length. Normal cortical width and echotexture. No solid or cystic renal masses. No nephrolithiasis. No hydronephrosis. Spleen measures 7.8 cm. No splenic masses. No ascites. No lymphadenopathy. Impression: 1. Normal abdominal ultrasound. This document has been electronically signed by: Ac Ramos MD on 07/03/2025 21:12:42 Dictated By: Ac Ramos MD Signed By: <Electronically signed by Ac Ramos MD in OV> 07/03/252112 DD/ 11 TD/TT: 07/03/252111 [place] [facility]: Procedure Note Donotuseinterpreter, Image - 07/03/2025 [place] [address] Ultrasound Report Signed Patient: John Fitzpatrick [facility]#: [id number] : 1970Acct:[id number] Age/Sex: 55 / MADM Date: 07/03/25 Loc: HO.US Attending Dr: Roxana Gotti DO Ordering Physician: Roxana Gotti DO Date of Service: 07/03/25 Procedure(s): US abdomen complete Accession Number(s): [id number] cc: Roxana Gotti DO; [facility] Reason for Exam: epigastric pain CLINICAL HISTORY: epigastric pain US abdomen complete with color Doppler Comparison: CT/SR - CT ABDOMEN PELVIS W IV CON - 03/01/25 19:[address] - CT ABDOMEN PELVIS W IV CON - 03/01/25 19:08 EDT CR - XR KUB - 03/01/25 16:11 EDT US/SR - US ABDOMEN LIMITED - 03/15/22 14:39 EDT Findings: The visualized pancreas, aorta, and inferior vena cava are unremarkable. Liver normal size and echotexture. Right lobe 13.9 cm length. No focal hepatic masses. Common duct 5.0 mm diameter. Physiologic distention of the gallbladder. No gallstones or sludge. No gallbladder wall thickening. No pericholecystic fluid. A sonographic rowe's sign was not comminuted by the technologist Main portal vein antegrade. Right kidney normal size, 9.8 cm in length. Normal cortical width and echotexture. No solid or cystic renal masses. No nephrolithiasis. No hydronephrosis. Left kidney normal, 9.8 cm in length. Normal cortical width and echotexture. No solid or cystic renal masses. No nephrolithiasis. No hydronephrosis. Spleen measures 7.8 cm. No splenic masses. No ascites. No lymphadenopathy. Impression: 1. Normal abdominal ultrasound. This document has been electronically signed by: Ac Ramos MD on 07/03/2025 21:12:42 Dictated By: Ac Ramos MD Signed By: <Electronically signed by Ac Ramos MD in OV> 07/03/252112 DD/ 11 TD/TT: 07/03/252111 [place] [facility]: us Roxana Gotti DO IMG US PROCEDURES Edited Res ult - Final * XR Chest 1 View (07/02/2025 3:55 PM EDT) Only the most recent of2 resultswithin the time period is included. Anatomical Region Laterality Modality Chest Radiographic Cecelia ging 07/02/2025 3:55 PM EDT Narrative 07/02/2025 4:06 PM EDT [address] [address] XRay Report Signed Patient: John Fitzpatrick MR#: [id number] : 1970 Acct:[id number] Age/Sex: 55 / M ADM Date: 07/02/25 Loc: .ED Attending Dr: Ordering Physician: Rah Dhaliwal Date of Service: 07/02/25 Procedure(s): XR chest 1V Accession Number(s): [id number] cc: Rah Dhaliwal; [facility] Reason for Exam: Couging. pnuemonia? EXAMINATION: [...] 07/02/25 1603 DD/ 1555 TD/TT: 07/02/25 1557 [place] [facility]: LUIS ANTONIO Procedure Note Donotuseinterpreter, Image - 07/02/[address] [address] XRay Report Signed Patient: John Fitzpatrick AMR#: [id number] : 1970Acct:[id number] Age/Sex: 55 / MADM Date: 07/02/25 Loc: HO.ED Attending Dr: Ordering Physician: Rah Dhaliwal Date of Service: 07/02/25 Procedure(s): XR chest 1V Accession Number(s): [id number] cc: Rah Dhaliwal; [facility] Reason for Exam: Couging. pnuemonia? EXAMINATION: [...] 07/02/25 1603 DD/ 1555 TD/TT: 07/02/25 1557 [place] [facility]: LUIS ANTONIO [facility] External Provider IMG XR PROCEDURES Final Result * High Sensitivity Troponin I (07/02/2025 3:54 PM EDT) Only the most recent of4 resultswithin the time period is included. TROPONIN I HIGH SENSITIVITY <2.7 <3.5 - 35.0 ng/L [facility] Comment:The Lemon high sens itivity Troponin-I results should beused in conjunction with other diagnostic information suchas ECG, clinical observations and information, and patientsymptoms to aid in the diagnosis of [place]. 07/02/2025 3:54 PM EDT 07/02/2025 3:57 PM EDT Generic External Data Provider LAB BLOOD ORDERAB LES Final Result [facility] [address] [place] [phone] * XR Chest 2 Views (06/24/2025 4:04 PM EDT) Anatomical Region Laterality Modality Chest Radiographic Cecelia ging 06/24/2025 4:04 PM EDT Narrative 06/24/2025 4:11 PM EDT [address] [address] XRay Report Signed Patient: John Fitzpatrick A MR#: [id number] : 1970 Acct:[id number] Age/Sex: 55 / M ADM Date: 06/24/25 Loc: JOSE MARIAX Attending Dr: Hollis Rutledge MD Ordering Physician: HOLLIS RUTLEDGE MD Date of Service: 06/24/25 Procedure(s): XR chest 2V Accession Number(s): [id number] cc: HOLLIS RUTLEDGE MD Reason for Exam: [...] 06/24/25 1608 DD/ 1604 TD/TT: 06/24/25 1604 [place] [facility]: Procedure Note Donotuseinterpreter, Image - 06/24/2025 [place] [address] XRay Report Signed Patient: John Fitzpatrick AMR#: [id number] : 1970Acct:[id number] Age/Sex: 55 / MADM Date: 06/24/25 Loc: HHCX Attending Dr: Hollis Rutledge MD Ordering Physician: HOLLIS RUTLEDGE MD Date of Service: 06/24/25 Procedure(s): XR chest 2V Accession Number(s): [id number] cc: HOLLIS RUTLEDGE MD Reason for Exam: [...] 06/24/25 1608 DD/ 1604 TD/TT: 06/24/25 1604 [facility]: us Hollis Rutledge MD IMG XR PROCEDURES Final Result * TSH W/Reflex to FT4 (06/22/2025 2:19 PM EDT) [facility] TSH reflex Free T4 1.82 0.32 - 4.0 uIU/mL [facility] Blood Venous blood specimen / Unknown 06/22/2025 2:19 PM EDT 06/22/2025 3:58 PM EDT us Sanam Peacock MD LAB BLOOD ORDERABLES Final Result [facility] [address] [place] [phone] * COVID-19 ID NOW (LEMON) (06/13/2025 3:10 PM EDT) Only the most recent of2 resultswithin the time period is included. Pathologist [facility] IDNOW SERIAL# [id number] [facility] COVID-19 TEST Negative Negative [facility] COVID-19 NOTE See Note [facility] Comment: Results are for the identification of SARS-CoV2 RNA. TheSARS-CoV2 RNA is generally detectable in respiratory samplesduring the acute phase of infection. Positive results areindicative of the presence of SARS-CoV-2 RNA; clinicalcorrelation with patient history and other diagnosticinformation is necessary to determine patient infectionstatus. Positive results do not rule out bacterial infectionor co- infection with other viruses.Testing facilities within the [place] [facility] are required to report all positive results [...] LAB MOLECULAR KATIUSKA GNOSTICS ORDERABLES Final Result [facility] [address] [place] [phone] * Influenza A B2 ID NOW (Lemon) (06/13/2025 2:15 PM EDT) IDNOW SERIAL# [id number] [facility] Influenza A Negative Negative [facility] Influenza B2 Negative Negative [facility] Influenza A B2 Note See Note [facility] Comment:The Lemon ID NOW In [...] LAB MICROBIOLOGY - GENERAL ORDERABLES Final Result [facility] [address] [place] [phone] * XR KUB and Upright 2 Views (06/13/2025 1:48 PM EDT) Anatomical Region Laterality Modality Radiographic Cecelia ging 06/13/2025 1:48 PM EDT Narrative 06/13/2025 1:50 PM EDT [address] [address] XRay Report Signed Patient: John Fitzpatrick MR#: [id number] : 1970 Acct:[id number] Age/Sex: 55 / M ADM Date: 06/13/25 Loc: .ED Attending Dr: Ordering Physician: Fay Rosales Date of Service: 06/13/25 Procedure(s): XR KUB Accession Number(s): [id number] cc: Fay Rosales; [facility] Reason for Exam: constipation CLINICAL HISTORY: [...] 06/13/25 1349 DD/ 1348 TD/TT: 06/13/25 1348 [facility]: Procedure Note Donotuseinterpreter, Image - 06/13/[address] [address] XRay Report Signed Patient: John Fitzpatrick AMR#: [id number] : 1970Acct:[id number] Age/Sex: 55 / MADM Date: 06/13/25 Loc: HO.ED Attending Dr: Ordering Physician: Fay Rosales Date of Service: 06/13/25 Procedure(s): XR KUB Accession Number(s): [id number] cc: Fay Rosales; [facility] Reason for Exam: constipation CLINICAL HISTORY: [...] 06/13/25 1349 DD/ 1348 TD/TT: 06/13/25 1348 County Ordinary: [facility] External Provider IMG XR PROCEDURES Final Result * Urinalysis w/reflex microscopic (06/13/2025 12:33 PM EDT) Color Urine Yellow [facility] Appearance Urine Clear [facility] PH 8.5 5.0 - 9.0 [facility] Glucose Urine UA Negative Negative mg/dL [facility] Urine Blood Negative Negative [facility] Specific Constantia - Urine 1.020 1.005 - 1.025 [facility] Urine Protein Negative Neg-Trace mg/dL [facility] Urine Ketones Negative Negative mg/dL [facility] Nitrite Urine Negative Negative [facility] Leukocyte Esterase Urine Negative Negative [facility] 06/13/2025 12:3 3 PM EDT 06/13/2025 12:37 PM EDT Narrative [facility] - 06/13/2025 1:25 PM EDT [id number], Clean Catch Generic External Data Provider LAB URINE ORDERAB LES Final Result [facility] [address] [place] [address] [phone] * Magnesium (06/13/2025 12:28 PM EDT) Pathologist [facility] Magnesium 1.9 1.6 - 2.6 mg/dL [facility] 06/13/2025 12:2 8 PM EDT 06/13/2025 12:31 PM EDT us Generic External Data Provider LAB BLOOD ORDERAB LES Final Result Performing Organization Address [facility]/ZIP Co de Phone Number [facility] [address] [place] [address] [phone] * (ABNORMAL) Comprehensive Metabolic Panel (06/13/2025 12:28 PM EDT) Only the most recent of2 resultswithin the time period is included. Pathologist [facility] Sodium 138 135 - 145 mmol/L [facility] Potassium 4.3 3.3 - 5.1 mmol/L [facility] Chloride 102 96 - 108 mmol/L [facility] Carbon Dioxide 31(H) 22 - 29 mmol/L [facility] Anion Gap 9(L) 12 - 20 [facility] Urea Nitrogen (BUN) 14 9 - 16 mg/dL [facility] Creatinine, Serum 0.99 0.5 - 1.4 mg/dL [facility] Creatinine Clr Calc Pharmacy 70.4 [facility] Comment:eGFR (calculated fro m the MDRD study equation) and eCrCl(calculated from the Cockcroft-Gault equation) are based ondifferent parameters and may not yield comparable results.If eCrCl result is absurd, please check patient'sheight/weight. Estimated Glomerular Filt Rate >60 [facility] Comment:Chronic Kidney Disea se: Estimated GFR < 60 mL/min/1.41f8Nchtfb Kidney Disease: Estimated GFR < 15 mL/min/1.73m2 Glucose 100 60 - 115 mg/dL [facility] Calcium 9.5 8.4 - 10.2 mg/dL [facility] Bilirubin, Total 1.5(H) 0.0 - 1.0 mg/dL [facility] Aspartate Amino Transferase 24 5 - 37 U/L [facility] Alanine Aminotransferase 18 0 - 40 U/L [facility] Total Protein 7.5 6.5 - 8.0 g/dL [facility] Albumin Level 4.9 3.5 - 5.0 g/dL [facility] Alkaline Phosphatase 50 39 - 117 U/L [facility] 06/13/2025 12:2 8 PM EDT 06/13/2025 12:31 PM EDT Generic External Data Provider LAB BLOOD ORDERAB LES Final Result [facility] [address] [place] [phone] * (ABNORMAL) POCT Hgb A1c (05/15/2025 [...] AM EDT Narrative 04/29/2025 12:15 PM EDT [address] [address] [address] Scan Report Signed Patient: John Fitzpatrick MR#: [id number] : 1970 Acct:[id number] Age/Sex: 55 / M ADM Date: 04/29/25 Loc: HO.ED Attending Dr: Ordering Physician: Erik Montano DO Date of Service: 04/29/25 Procedure(s): CT head/brain wo IV con Accession Number(s): [id number] cc: Erik Montano DO; [facility] Report Number: [id number]: Total DLP = 672.00 mGy-cm EXAMINATION: CT [...] 04/29/25 1212 DD/ 1132 TD/TT: 04/29/25 1205 [facility]: Procedure Note Donotjaylyninterpreter, Image - 04/29/[address] [address] [address] Scan Report Signed Patient: John Fitzpatrick AMR#: [id number] : 1970Acct:[id number] Age/Sex: 55 / MADM Date: 04/29/25 Loc: HO.ED Attending Dr: Ordering Physician: Erik Montano DO Date of Service: 04/29/25 Procedure(s): CT head/brain wo IV con Accession Number(s): [id number] cc: Erik Montano DO; [facility] CATERING COORDINATOR Report Number: [id number]: Total DLP = 672.00 mGy-cm EXAMINATION: CT [...] 04/29/25 1212 DD/ 1132 TD/TT: 04/29/25 1205 County Ordinary: Result [facility] External Provider IMG CT PROCEDURES Final Result * POCT Urinalysis (04/04/2025 10:43 AM EDT) Pathologist [facility] Color, UA Yellow Clarity, UA Clear Glucose, UA Negative Bilirubin, UA Negative Ketones, UA Negative Spec Grav, UA 1.015 Blood, UA Negative Negative, None Detected pH, UA 8.5 Protein, UA Negative Urobilinogen, UA 1.0 Leukocytes, UA Negative Negative, Rare, Trace Nitrite, UA Negative Negative, None Detected Appearance, UA clear QC Media Lot # [id number] Lot# Expiration Date 53, Urine 04/04/2025 10:4 3 AM EDT Result [facility] Francy Jennings MD POINT OF CARE TEST ENTER /EDIT ORDERABLES Final Result * Hepatitis C Antibody with Reflex to HCV, RNA, Quantitative, Real-Time PCR (01/06/2025 10:11 AM EDT) [facility] Hepatitis C Antibody Nonreactive Nonreactive [facility] Comment:Antibodies to HCV no t detected; does not exclude early acuteHCV infection. Blood Venous blood specimen / Unknown 01/06/2025 10:11 AM EDT 01/06/2025 11:07 AM EDT Result [facility] Hoa Dueñas NP LAB BLOOD ORDERABLES Final Resul t [facility] [address] [place] [phone] * Lipid Panel, Standard (03/19/2024 9:34 AM EDT) Pathologist [facility] Triglycerides 66 <150 mg/dL [facility] Comment:Desirable Triglyceri de: less than 150 mg/dLBorderline High Triglyceride 150-199 mg/dLHigh Triglyceride: 200-499 mg/dLVery High Triglyceride: greater than or equal to 5OO mg/dL Cholesterol 112 <200 mg/dL [facility] Comment:Desirable Cholestero l: less than 200 mg/dLBorderline High Cholesterol: 200-239 mg/dLHigh Cholesterol: greater than 239 mg/dL LDL Cholesterol Calculated 58 <100 mg/dL [facility] Comment:Desirable LDL: less than 100 mg/dLNear Optimal/Above Optimal LDL: 110- 129 mg/dLBorderline High LDL: 130-159 mg/dLHigh LDL: 160-189 mg/dLVery High LDL: greater than or equal to 190 mg/dL HDL Cholesterol 41 >40 mg/dL [facility] Comment:Desirable HDL: great er than 40 mg/dL Note: This HDL assay may give artificially low results in patients with liver disease. Blood Venous blood specimen / Unknown 03/19/2024 9:34 AM EDT 03/19/2024 11:12 AM EDT us Roxana Gotti DO LAB BLOOD ORDERABLES Final R esult [facility] [address] [place] [phone] [phone] * HIV-1 RNA, Quantitative, Real-Time PCR (03/22/2023 11:53 AM EDT) HIV RNA PCR Qn Copies NOT DETECTED NOT DETECTED copies/mL [facility] HIV RNA PCR Qn Log Copies NOT DETECTED NOT DETECTED [facility] Comment:Result Units: Log co pies/mLThis test was performed using Real-Time Polymerase ChainReaction.Reportable Range: 20 copies/mL to 10,000,000 copies/mL(1.30 log copies/mL to 7.00 log copies/mL).THIS TEST WAS PERFORMED AT:[facility] [place] [id number] GONG MD Blood Venous blood specimen / Unknown 03/22/2023 11:53 AM EDT 03/22/2023 1:32 PM EDT Jessica Guillen CATERING COORDINATOR LAB BLOOD ORDERABLES Final Res ult [facility] [address] [place] [phone] from Last 3 Months or Most Recently Relevant to Health Maintenance Insurance [facility] C3 DENTAL-[facility] MEDICAID STAND ADULT Care Teams Material Movers Relationship Specialty Start Date End Date [facility] [address] [place] [address] PCP - General Family Medicine 05/01/22 Gregoria Brooks, CHAGO [address] [place] [address] Registered Nurse Family Medicine 06/15/25 Latircia Houser 06/16/25
--- OUTSIDE RECORDS SUMMARY | 2025-07-05 17:55 | XMS_ITS | Encounter Summary ---
Author Organization [employer] Address [address] [facility] 7t [place] [address] Care Team Providers Care Child Life Therapist Name Role Phone Clarisse [facility] Primary Care Provider [phone] Gregoria Brooks RN Unavailable [phone] Latricia Houser Unavailable Reason for Visit * Reason Onset Date Comments Med Refill 09/25/2023 Encounter Details Date Type Department Care Team (Late st Contact Info) Description 09/25/2023 Telephone [facility] MEDICINE [address] [place], [place] [phone] ClarisseHaily [facility] [address] [place], [place] [phone] Med Refill Social History Tobacco Use Types [...] 200 MG/ML injection To be sent to: [facility] - [place], [place] - [address] [facility] documented in this encounter Plan of Treatment Not on file documented as of this encounter Visit Diagnoses Not on filedocumented in this encounter Additional Health Concerns Assessment Noted Time PHQ-9 Depression Total Score: 0 08/15/20 3:52 PM EST documented as of this encounter Care Teams Child Life Therapist Relationship Specialty Start Date End Date Haily RobbANETA [address] [place] [address] PCP - General Family Medicine 05/01/22 Gregoria Brooks RN [address] [place] [address] Registered Nurse Family Medicine 06/15/25 Latricia Houser 06/16/25 documented as of this encounter
--- OUTSIDE RECORDS SUMMARY | 2025-07-05 17:55 | XMS_ITS | Encounter Summary ---
Author Organization [employer] Address [address] [facility] 7t [place] [address] Care Team Providers Care Handicraft Or Hobby Shop Manager Name Role Phone Haily Robb DATA INTEGRITY ANALYST Primary Care Provider [phone] Gregoria Brooks RN Unavailable [phone] Latricia Houser Unavailable Reason for Visit * Reason Comments Med Refill Encounter Details Date Type Department Care Team (Late st Contact Info) Description 04/02/2023 Refill [facility] [address] [place], [place] [phone] Hollis Rutledge MD [address] [place], [place] [phone] Social History Tobacco Use Types Packs/Day Years [...] documented as of this encounter Care Teams Handicraft Or Hobby Shop Manager Relationship Specialty Start Date End Date Clarisse ANETA Johansen [address] [place] [address] PCP - General Family Medicine 05/01/22 Gregoria Brooks RN [address] [place] [address] Registered Nurse Family Medicine 06/15/25 Latricia Houser 06/16/25 documented as of this encounter
--- OUTSIDE RECORDS SUMMARY | 2025-07-05 17:55 | XMS_ITS | Encounter Summary ---
Author Organization [employer] Address [address] [facility] 7t [place] [address] Care Team Providers Care Steam Trap Man Name Role Phone Clarisse [facility] Primary Care Provider Gregoria Brooks RN Unavailable [phone] Latricia Houser Unavailable Reason for Visit * Reason Onset Date Comments Triage 09/20/2022 Encounter Details Date Type Department Care Team (Late st Contact Info) Description 09/20/2022 Telephone [facility] MEDICINE [address] [place], [place] [phone] ClarisseHaily [facility] [address] [place], [place] [phone] Triage Social History Tobacco Use Types Packs/Day [...] 09/20/2022 11:55 AM EST Triage call with Hardin Sand Molder ID [id number] Pt reports an area on back that [...] No high acuity concerns reported by caller GEORGIAN SPEAKER The caller accepted this outcome documented in this encounter Plan of Treatment Not on file documented as of this encounter Visit Diagnoses Not on filedocumented in this encounter Care Teams Steam Trap Man Relationship Specialty Start Date End Date Haily Robb FNP [address] [place] [address] PCP - General Family Medicine 05/01/22 Gregoria Brooks RN [address] [place] [address] Registered Nurse Family Medicine 06/15/25 Latricia Houser 06/16/25 documented as of this encounter
--- OUTSIDE RECORDS SUMMARY | 2025-07-05 17:55 | XMS_ITS | Encounter Summary ---
Author Organization [employer] Address [address] [facility] 7t [place] [address] Care Team Providers Care Staff Veterinarian Name Role Phone Haily Robb [facility] Primary Care Provider [phone] Gregoria Brooks RN Unavailable [phone] Latricia Houser Unavailable Encounter Details Date Type Department Care Team (Latest Contact Info) Description 06/01/2022 Abstract [facility] CONVERSIONS Dental, Provider, DDS Social [...] on filedocumented in this encounter Care Teams Staff Veterinarian Relationship Specialty Start Date End Date Haily RobbANETA [address] [place] [address] PCP - General Family Medicine 05/01/22 Gregoria Brooks, CHAGO [address] [place] [address] Registered Nurse Family Medicine 06/15/25 Latricia Houser 06/16/25 documented as of this encounter
--- OUTSIDE RECORDS SUMMARY | 2025-07-05 17:55 | XMS_ITS | Encounter Summary ---
Author Organization [employer] Address [address] [facility] 7t [place] [address] Care Team Providers Care In Home Nanny Name Role Phone Jelm, [facility] Primary Care Provider Gregoria Brooks RN Unavailable [phone] Latricia Houser Unavailable Reason for Visit * Reason Comments Care Management C3CM- FOLLOW UP CALL Encounter Details Date Type Department Care Team (Late st Contact Info) Description 07/01/2025 Patient Outreach [facility] MEDICINE [address] [place], [place] [phone] Clarisse Haily [facility] [address] [place] [address] Care Management (C3CM- FOLLOW UP CALL) Social [...] advised that CM received a call from Computer Technical Specialist Katia at [facility] to inform that Patient has sched uled MRI for 07/17/25 at 10am at [facility]. Patient states is hoping to be able to tolerate completing exam if its with an open MRI machine. Patient informs CM that has upcoming appointment for [facility] on 07/03. Patient could not recall appointment time. This play writer will have coworker look in [facility] for details. Per [facility] patient is scheduled for [place] of [...] Care located in [facility] of [facility]. Patient provided with after-hours line for [facility], , which offer night time triage service and option to transfer to vp organizational development provider if needed. Patient verbalizes understanding, and able to repeat back to play writer. A follow up call will be [...] documented as of this encounter Care Teams In Home Nanny Relationship Specialty Start Date End Date [facility] [address] [place] [address] PCP - General Family Medicine 05/01/22 Gregoria Brooks RN [address] [place] [address] Registered Nurse Family Medicine 06/15/25 Latricia Houser 06/16/25 documented as of this encounter
--- OUTSIDE RECORDS SUMMARY | 2025-07-05 17:55 | XMS_ITS ---
Author Organization [employer] Address [address] [facility] 7t [place] [address] Care Team Providers Care Music Promoter Name Role Phone [facility] Primary Care Provider [phone] Gregoria Brooks RN Unavailable [phone] Latricia Houser Unavailable CM Complex Status:Enrolled (Active) Start date:06/15/2025 Enrollment date:06/17/2025 Enrollment reason:Referred by provider Overview Provider Referral- Patient needs assistance with getting reconnected with the [facility] Adult Day program. Case Team Name Relationship Phone Gregoria Brooks RN(Responsible Staff) Registered Nurse Continued Care and Services Coordination
--- OUTSIDE RECORDS SUMMARY | 2025-07-05 17:55 | XMS_ITS | Encounter Summary ---
Author Organization [employer] Address [address] [facility] 7t [place] [address] Care Team Providers Care Freight Handler Name Role Phone Clarisse [facility] Primary Care Provider Gregoria Brooks RN Unavailable [phone] Latricia Houser Unavailable Reason for Visit * Reason Onset Date Comments Results 03/16/2023 Encounter Details Date Type Department Care Team (Late st Contact Info) Description 03/16/2023 Telephone [facility] MEDICINE [address] [place], [place] [phone] ClarisseHaily [facility] [address] [place], [place] [phone] Results Social History Tobacco Use Types Packs/Day [...] 03/20/2023 4:06 PM EDT Return T/C to [phone] for below message, No answer. LVM to call back on [phone]. * Telephone Encounter - Kelli Boucher - 03/16/2023 2:04 PM EDT Tc from pt requesting a call in regards to results to recent lab orders. Please contact pt at [phone] (Barbadian speaker) documented in this encounter Plan of Treatment Not on file documented as of this encounter Visit Diagnoses Not on filedocumented in this encounter Additional Health Concerns Assessment Noted Time PHQ-9 Depression Total Score: 0 01/26/20 23 3:38 PM EDT documented as of this encounter Care Teams Freight Handler Relationship Specialty Start Date End Date Haily Robb FNP [address] [place] [address] PCP - General Family Medicine 05/01/22 Gregoria Brooks, CHAGO [address] [place] [address] Registered Nurse Family Medicine 06/15/25 Latricia Houser 06/16/25 documented as of this encounter
--- OUTSIDE RECORDS SUMMARY | 2025-07-05 17:55 | XMS_ITS | Encounter Summary ---
Author Organization [employer] Address [address] [facility] [address] [place] [address] Care Team Providers Care Staff Cytotechnologist Name Role Phone Clarisse [facility] Primary Care Provider [phone] Gregoria Brooks RN Unavailable [phone] Latricia Houser Unavailable Reason for Visit * Reason Comments Med Refill Encounter Details Date Type Department Care Team (Late st Contact Info) Description 07/08/2024 Refill [facility] MEDICINE [address] [place], [place] [phone] Cedar Haily [facility] [address] [place], [place] [phone] Mixed anxiety and depressive disorder Social History [...] as of this encounter Care Teams Staff Cytotechnologist Relationship Specialty Start Date End Date Haily Robb FNP [address] [place] [address] PCP - General Family Medicine 05/01/22 Gregoria Brooks RN [address] [place] [address] Registered Nurse Family Medicine 06/15/25 Latricia Houser 06/16/25 documented as of this encounter
--- OUTSIDE RECORDS SUMMARY | 2025-07-05 17:55 | XMS_ITS | Encounter Summary ---
Author Organization [employer] Address [address] [facility] 7t [place] [address] Care Team Providers Care Boat Pilot Name Role Phone EpsomHaily molina ALLERGIST/IMMUNOLOGIST PHYSICIAN Primary Care Provider Gregoria Brooks RN Unavailable [phone] Latricia Houser Unavailable Reason for Visit * Reason Onset Date Comments Nurse Triage 02/11/2024 Encounter Details Date Type Department Care Team (Late st Contact Info) Description 02/11/2024 Telephone [facility] MEDICINE [address] [place], [place] [phone] EpsomHaily FNP [address] [place], [place] [phone] Nurse Triage Social History Tobacco Use Types [...] EDT Triage call returned to patient with Macy automotive tire worker [phone]. Patient reports ongoing issue withleft eye and [...] and she would like him referred to [facility] Marketing Mgr. No diagnosis in chart.Advised of [facility] Walk In [facility] for evaluation today. [...] Reason: Other Override Notes: Being treated with business operations specialist with appt coming in 03/11/24 Video [...] involuntary movements The caller accepted this outcome Indonesian speaker documented in this encounter Plan of [...] as of this encounter Care Teams Boat Pilot Relationship Specialty Start Date End Date Haily Robb FNP [address] [place] [address] PCP - General Family Medicine 05/01/22 Gregoria Brooks RN [address] [place] [address] Registered Nurse Family Medicine 06/15/25 Latricia Houser 06/16/25 documented as of this encounter
--- OUTSIDE RECORDS SUMMARY | 2025-07-05 17:55 | XMS_ITS | Encounter Summary ---
Author Organization [employer] Address 75 [facility] 7t [place] [address] Care Team Providers Care Closing Machine Operator Name Role Phone [facility]iva [facility] Primary Care Provider Gregoria Brooks RN Unavailable [phone] Latricia Houser Unavailable Reason for Visit * Reason Comments Care Coordination C3 -Ronn ames telephone call outreach Encounter Details Date Type Department Care Team (Latest Contact Info) Description 06/30/2025 Patient Outreach [facility] MEDICINE 230 [place], [place] [phone] Riva [facility] 230 [place] [address] Care Coordination (C3 TONE Houser telephone call [...] answer at thistime. LVM introducing herself from [facility] CM Department. Requested call back. CHW reinforced direct contact information or CM for any additional questionsor concerns and extended clinic hours on Mondays and Wednesdays, and Walk-In Urgent Care Located inLobby of [facility]. Patient provided with after-hours line for [facility], , which offer night time triage service and option to transfer to corporate communications intern provider if needed. CHW will attempt another [...] documented as of this encounter Care Teams Closing Machine Operator Relationship Specialty Start Date End Date Haily Robb FNP 230 [place] [address] PCP - General Family Medicine 05/01/22 Gregoria Brooks, CHAGO 230 [place] [address] Registered Nurse Family Medicine 06/15/25 Latricia Houser 06/16/25 documented as of this encounter
--- OUTSIDE RECORDS SUMMARY | 2025-07-05 17:55 | XMS_ITS | Encounter Summary ---
Author Organization [employer] Address [address] [facility] [address] 7t [place] [address] Care Team Providers Care Customs Compliance Manager Name Role Phone Clarisse [facility] Primary Care Provider [phone] Gregoria Brooks RN Unavailable [phone] aLtricia Houser Unavailable Reason for Visit * Reason Onset Date Comments Medication Question 08/24/2022 Encounter Details Date Type Department Care Team (Late st Contact Info) Description 08/24/2022 Telephone [facility] MEDICINE 230 [place], [place] [phone] ChappellsHaily FNP 230 [place], [place] [phone] Medication Question Social History Tobacco Use Types [...] requesting a call back. States went to milk pickup truck driver his medication and they gave him vitamin C and he would like to know if he should be taking them again . Please call to clarify. documented in this encounter Plan of Treatment Not on file documented as of this encounter Visit Diagnoses Not on filedocumented in this encounter Care Teams Customs Compliance Manager Relationship Specialty Start Date End Date Haily Robb FNP 230 [place] [address] PCP - General Family Medicine 05/01/22 Gregoria Brooks RN [address] [place] [address] Registered Nurse Family Medicine 06/15/25 Latricia Houser 06/16/25 documented as of this encounter
--- OUTSIDE RECORDS SUMMARY | 2025-07-05 17:55 | XMS_ITS | Encounter Summary ---
Author Organization [employer] Address 75 [facility] 7t [place] [address] Care Team Providers Care Blender/Braze Applicator Name Role Phone [place] [facility] Primary Care Provider [phone] Gregoria Brooks RN Unavailable [phone] Latricia Houser Unavailable Reason for Visit * Reason Onset Date Comments ER Follow-up 07/03/2025 Encounter Details Date Type Department Care Team (Late st Contact Info) Description 07/03/2025 Telephone [facility] MEDICINE 230 [place], [place] [phone] [place] Haily [facility] 230 [place], [place] [phone] ER Follow-up Social History Tobacco Use Types Packs/Day Years [...] Telephone Encounter - Magi Magdaleno RN - 07/03/2025 3:46 PM EDT Pt. Followed up in walk in clinic today * Telephone Encounter - Dixon Thomas - 07/03/2025 10:31 AM EDT Patient calling to report ED visit on : Date: 07/02/25 Hospital: [facility] Seen for: Chest pain, Fever and Headache Symptomatic No Please contact pt at [phone]. documented in this encounter Plan of Treatment Not on file documented as of this encounter Goals Goal Patient Goal Type Associated Problems Recent Progress Patient-Stated? Author Patient will adhere to medication regimen General Leonila Moreland Hernandez documented as of this encounter Visit Diagnoses Not on filedocumented in this encounter Additional Health Concerns Assessment Noted Time PHQ-9 Depression Total Score: 8 06/17/20 11:48 AM EDT documented as of this encounter Care Teams Blender/Braze Applicator Relationship Specialty Start Date End Date Haily Robb FNP 230 [place] [address] PCP - General Family Medicine 05/01/22 Gregoria Brooks, CHAGO 230 [place] [address] Registered Nurse Family Medicine 06/15/25 Latricia Houser 06/16/25 documented as of this encounter
--- OUTSIDE RECORDS SUMMARY | 2025-07-05 17:55 | XMS_ITS | Encounter Summary ---
Author Organization [employer] Address 75 [facility] 7t [place] [address] Care Team Providers Care Assisted Living Housekeeper Name Role Phone Haily Robb [facility] Primary Care Provider [phone] Gregoria Brooks RN Unavailable [phone] Latricia Houser Unavailable Encounter Details Date [...] on filedocumented in this encounter Care Teams Assisted Living Housekeeper Relationship Specialty Start Date End Date Haily RobbANETA 230 [place] [address] PCP - General Family Medicine 05/01/22 Gregoria Brooks, CHAGO 230 [place] [address] Registered Nurse Family Medicine 06/15/25 Latricia Houser 06/16/25 documented as of this encounter
--- OUTSIDE RECORDS SUMMARY | 2025-07-05 17:55 | XMS_ITS | Encounter Summary ---
Author Organization [employer] Address [address] [facility] [address] 7t [place] [address] Care Team Providers Care Cooper Helper Name Role Phone [place] [facility] Primary Care Provider Gregoria Brooks RN Unavailable [phone] Latricia Houser Unavailable Reason for Visit * Reason Comments Med Refill Encounter Details Date Type Department Care Team (Late st Contact Info) Description 05/31/2025 Refill [facility] 230 [place], [place] [phone] [place] [facility] 230 [place], [place] [phone] Restless leg Social History Tobacco Use Types [...] documented as of this encounter Care Teams Cooper Helper Relationship Specialty Start Date End Date Haily Robb FNP [address] [place] [address] PCP - General Family Medicine 05/01/22 Gregoria Brooks RN [address] [place] [address] Registered Nurse Family Medicine 06/15/25 Latricia Houser 06/16/25 documented as of this encounter
--- OUTSIDE RECORDS SUMMARY | 2025-07-05 17:55 | XMS_ITS | Encounter Summary ---
Author Organization [employer] Address 75 [facility] 7t [place] [address] Care Team Providers Care Jointer Machine Operator Name Role Phone Haily Robb [employer] LEAD WORKER Primary Care Provider Gregoria Brooks RN Unavailable [phone] Latricia Houser Unavailable Reason for Visit * Reason Comments Med Refill Encounter Details Date Type Department Care Team (Late st Contact Info) Description 04/02/2023 Refill [facility] MEDICINE 230 [place], [place] [phone] Juanjose Barton MD 230 [place], [place] [phone] Chronic pruritus Social History Tobacco Use Types [...] documented as of this encounter Care Teams Jointer Machine Operator Relationship Specialty Start Date End Date Haily RobbANETA 230 [place] [address] PCP - General Family Medicine 05/01/22 Gregoria Brooks RN 230 [place] [address] Registered Nurse Family Medicine 06/15/25 Latricia Houser 06/16/25 documented as of this encounter
--- OUTSIDE RECORDS SUMMARY | 2025-07-05 17:55 | XMS_ITS | Encounter Summary ---
Author Organization [employer] Address [address] [facility] [address] 7t [place] [address] Care Team Providers Care Batch Records Clerk Name Role Phone Clarisse [facility] Primary Care Provider Gregoria Brooks RN Unavailable [phone] Latricia Houser Unavailable Reason for Visit * Reason Comments Med Refill Encounter Details Date Type Department Care Team (Late st Contact Info) Description 08/28/2024 Refill [facility] MEDICINE 230 [place], [place] [phone] [place] Haily [facility] 230 [place], [place] [phone] Mixed anxiety and depressive disorder Social History [...] documented as of this encounter Care Teams Batch Records Clerk Relationship Specialty Start Date End Date Haily Robb FNP 230 [place] [address] PCP - General Family Medicine 05/01/22 Gregoria Brooks RN 230 [place] [address] Registered Nurse Family Medicine 06/15/25 Latricia Houser 06/16/25 documented as of this encounter
--- OUTSIDE RECORDS SUMMARY | 2025-07-05 17:55 | XMS_ITS | Encounter Summary ---
Author Organization [email or web address] Address 75 [facility] 7t [place] [address] Care Team Providers Care Supervisor Electric Name Role Phone Clarisse Haily [employer] Primary Care Provider [phone] Gregoira Brooks RN Unavailable [phone] Latricia Houser Unavailable Encounter Details Date Type Department Care Team (Latest Contact Info) Description 07/03/2025 Travel Social History Tobacco Use Types Packs/Day [...] as of this encounter Care Teams Supervisor Electric Relationship Specialty Start Date End Date Haily Robb FNP [address] [place] [address] PCP - General Family Medicine 05/01/22 Gregoria Brooks, CHAGO [address] [place] [address] Registered Nurse Family Medicine 06/15/25 Latricia Houser 06/16/25 documented as of this encounter
--- OUTSIDE RECORDS SUMMARY | 2025-07-05 17:55 | XMS_ITS | Encounter Summary ---
Author Organization [employer] Address [address] [facility] [address] 7t [place] [address] Care Team Providers Care Injection Moulding Machine Operator Name Role Phone Clarisse [facility] Primary Care Provider Gregoria Brooks RN Unavailable [phone] Latricia Houser Unavailable Reason for Visit * Reason Comments Med Refill Encounter Details Date Type Department Care Team (Late st Contact Info) Description 06/03/2025 Refill [facility] MEDICINE 230 [place], [place] [phone] [place] Haily [facility] 230 [place], [place] [phone] Epigastric pain Social History Tobacco Use Types [...] documented as of this encounter Care Teams Injection Moulding Machine Operator Relationship Specialty Start Date End Date Haily Robb FNP [address] [place] [address] PCP - General Family Medicine 05/01/22 Gregoria Brooks RN [address] [place] [address] Registered Nurse Family Medicine 06/15/25 Latricia Houser 06/16/25 documented as of this encounter
--- OUTSIDE RECORDS SUMMARY | 2025-07-05 17:55 | XMS_ITS | Encounter Summary ---
Author Organization [employer] Address 75 [facility] 7t [place] [address] Care Team Providers Care Volunteer Services Supervisor Name Role Phone Clarisse [facility] Primary Care Provider Gregoria Brooks RN Unavailable [phone] Latricia Houser Unavailable Reason for Visit * Reason Onset Date Comments Nurse Triage 02/16/2023 Encounter Details Date Type Department Care Team (Late st Contact Info) Description 02/16/2023 Telephone [facility] MEDICINE 230 [place], [place] [phone] [place] [facility] 230 [place], [place] [phone] Nurse Triage Social History Tobacco Use Types [...] - 02/23/2023 2:49 PM EDT T/C to [id number] through [employer] interpreters id - [id number] for below message, pt. Verbally agreed and understood. * Telephone Encounter - Angela Whitman LPN - 02/16/2023 2:48 PM EDT Triage call returned to patient via [employer] Emergency Communications Officer [id number]. Patient called with concerns of Left eye burning and tearing at times with blurred vision. No irritant or object in eye at this time. Patient reports that he was seen some time ago in [facility] and was given order to obtain eye drops for dry eye. He is angry that he had to pay for them out of pocket and that they did not help. Patient requesting specifically a referral and declines appts. in [facility] or with Team providers later [...] suggested disposition Override Notes: Patient seen in [facility] and was told to use eye drops several months ago. Patient requesting only referral to Director Of Informatics. Video visit not offered Positive Triage Question: [...] The caller accepted this outcome Patient speaks tamazight documented in this encounter Plan of Treatment Not on file documented as of this encounter Visit Diagnoses Not on filedocumented in this encounter Additional Health Concerns Assessment Noted Time PHQ-9 Depression Total Score: 0 01/26/20 3:38 PM EDT documented as of this encounter Care Teams Volunteer Services Supervisor Relationship Specialty Start Date End Date GarfieldHaily FNP 230 [place] [address] PCP - General Family Medicine 05/01/22 Gregoria Brooks RN 230 [place] [address] Registered Nurse Family Medicine 06/15/25 Latricia Houser 06/16/25 documented as of this encounter
--- OUTSIDE RECORDS SUMMARY | 2025-07-05 17:55 | XMS_ITS | Encounter Summary ---
Author Organization [employer] Address 75 [facility] 7t [place] [address] Care Team Providers Care Jig Builder Helper Name Role Phone Haily Robb [facility] Primary Care Provider Gregoria Brooks RN Unavailable [phone] Latricia Houser Unavailable Reason for Visit * Reason Onset Date Comments Results 02/26/2025 Encounter Details Date Type Department Care Team (Late st Contact Info) Description 02/26/2025 Telephone [facility] 230 [place], [place] [phone] ClarisseHaily [facility] 230 [place], [place] [phone] Results Social History Tobacco Use Types Packs/Day [...] back regarding prior message. Contact pt at [phone] * Telephone Encounter - Claudette Ashley - 02/26/2025 12:59 PM EDT TC from pt requesting call back regarding Results. Type of results: Lab Date when done: 02/25/25 Facility[facility] Contact pt at [phone] (latvian) documented in this encounter Plan of Treatment [...] documented as of this encounter Care Teams Jig Builder Helper Relationship Specialty Start Date End Date Haily Robb FNP 230 [place] [address] PCP - General Family Medicine 05/01/22 Gregoria Brooks RN 230 [place] [address] Registered Nurse Family Medicine 06/15/25 Latricia Houser 06/16/25 documented as of this encounter
--- OUTSIDE RECORDS SUMMARY | 2025-07-05 17:55 | XMS_ITS ---
Author Organization [employer] Address 75 [facility] 7t [place] [address] Care Team Providers Care Instructional Designer Name Role Phone [place] [employer] SERVER MANAGER Primary Care Provider [phone] Gregoria Brooks RN Unavailable [phone] Latricia Houser Unavailable CHW Complex Status:Enrolled (Active) Start date:06/16/2025 Enrollment date:06/16/2025 Enrollment reason:Referred by provider Overview Provider Referral- Patient needs assistance with getting reconnected with the [facility] program. Please outreach to patient. Case Team Name Relationship Phone Latricia Houser(Responsible Staff) Continued Care and Services Coordination
--- OUTSIDE RECORDS SUMMARY | 2025-07-05 17:55 | XMS_ITS | Encounter Summary ---
Author Organization [employer] Address [address] [facility] [address] 7t [place] [address] Care Team Providers Care Shake Cutter Name Role Phone [facility] Primary Care Provider Gregoria Brooks RN Unavailable [phone] Latricia Houser Unavailable Reason for Visit * Reason Comments Med Refill Encounter Details Date Type Department Care Team (Late st Contact Info) Description 06/03/2025 Refill [facility] 230 [place], [place] [phone] [place] [facility] 230 [place], [place] [phone] Restless leg Social History Tobacco Use Types [...] documented as of this encounter Care Teams Shake Cutter Relationship Specialty Start Date End Date Haily Robb FNP [address] [place] [address] PCP - General Family Medicine 05/01/22 Gregoria Brooks RN [address] [place] [address] Registered Nurse Family Medicine 06/15/25 Latricia Houser 06/16/25 documented as of this encounter
--- OUTSIDE RECORDS SUMMARY | 2025-07-05 17:55 | XMS_ITS | Encounter Summary ---
Author Organization [employer] Address 75 [facility] 7t [place] [address] Care Team Providers Care Division Merchandise Manager Name Role Phone Clarisse [facility] Primary Care Provider [phone] Gregoria Brooks RN Unavailable [phone] Latricia Houser Unavailable Reason for Visit * Reason Onset Date Comments Med Refill 12/13/2023 Encounter Details Date Type Department Care Team (Late st Contact Info) Description 12/13/2023 Telephone [facility] MEDICINE 230 [place], [place] [phone] ClarisseHaily [facility] 230 [place], [place] [phone] Med Refill Social History Tobacco Use Types [...] EDT Medication was sent to [facility] on 11/09/23 with 2 refills. * Telephone Encounter - Christine Taylor - 12/13/2023 10:19 AM EDT TC from pt requesting medication refill. Medications needing refill : melatonin 5 MG tablet To be sent to: [facility] - [place], [place] - [address] documented in this encounter Plan of Treatment Not on file documented as of this encounter Visit Diagnoses Not on filedocumented in this encounter Additional Health Concerns Assessment Noted Time PHQ-9 Depression Total Score: 0 08/15/20 23 3:52 PM EST documented as of this encounter Care Teams Division Merchandise Manager Relationship Specialty Start Date End Date Haily Robb, OPTICAL LAB TECHNICIAN 230 [place] [address] PCP - General Family Medicine 05/01/22 Gregoria Brooks RN 230 [place] [address] Registered Nurse Family Medicine 06/15/25 Latricia Houser 06/16/25 documented as of this encounter
--- OUTSIDE RECORDS SUMMARY | 2025-07-05 17:55 | XMS_ITS | Encounter Summary ---
Author Organization [employer] Address 75 [facility] 7t [place] [address] Care Team Providers Care Portfolio Manager Name Role Phone Clarisse [facility] Primary Care Provider [phone] Gregoria Brooks RN Unavailable [phone] Latricia Houser Unavailable Reason for Visit * Reason Onset Date Comments Medication Question 01/16/2023 Encounter Details Date Type Department Care Team (Late st Contact Info) Description 01/16/2023 Telephone [facility] MEDICINE 230 [place], [place] [phone] [place] [facility] 230 [place], [place] [phone] Medication Question Social History Tobacco Use Types [...] as of this encounter Care Teams Portfolio Manager Relationship Specialty Start Date End Date Haily Robb FNP [address] [place] [address] PCP - General Family Medicine 05/01/22 Gregoria Brooks, CHAGO [address] [place] [address] Registered Nurse Family Medicine 06/15/25 Latricia Houser 06/16/25 documented as of this encounter
--- OUTSIDE RECORDS SUMMARY | 2025-07-05 17:55 | XMS_ITS | Encounter Summary ---
Author Organization [employer] Address [address] [facility] [address] [place] [address] Care Team Providers Care Mixer Whipped Topping Name Role Phone Clarisse Haily MEDIA RELATIONS SPECIALIST Primary Care Provider [phone] Gregoria Brooks RN Unavailable [phone] Latricia Houser Unavailable Encounter Details Date Type Department Care Team (Late st Contact Info) Description 07/05/2025 Orders Only GENERIC EXTERNAL DATA [...] Diagnosis Comments CBC WITH AUTO DIFFERENTIAL Routine 07/05/2025 3:10 PM EST LIPASE Routine 07/05/2025 3:10 PM EST HEPATIC FUNCTION PANEL Routine 07/05/2025 3:10 PM EST BASIC METABOLIC PANEL Routine 07/05/2025 3:10 PM EST documented in this encounter Results * Lipase (07/05/2025 3:10 PM EST) Lipase 16 8 - 78 U/L [facility] 07/05/2025 3:10 PM EST 07/05/2025 3:28 PM EST us Generic External Data Provider LAB BLOOD ORDERAB LES Final Result Performing Organization Address City/[facility]/ZIP Co de Phone Number [facility] [address] [place] [address] [phone] * (ABNORMAL) Basic Metabolic Panel (07/05/2025 3:10 PM EST) Sodium 140 135 - 145 mmol/L [facility] Potassium 3.5 3.3 - 5.1 mmol/L [facility] Chloride 102 96 - 108 mmol/L [facility] Carbon Dioxide 27 22 - 29 mmol/L [facility] Anion Gap 15 12 - 20 [facility] Urea Nitrogen (BUN) 10 9 - 16 mg/dL [facility] Creatinine, Serum 0.83 0.5 - 1.4 mg/dL [facility] Creatinine Clr Calc Pharmacy 83.1 [facility] Comment:eGFR (calculated fro m the MDRD study equation) and eCrCl(calculated from the Cockcroft-Gault equation) are based ondifferent parameters and may not yield comparable results.If eCrCl result is absurd, please check patient'sheight/weight. Estimated Glomerular Filt Rate >60 [facility] Comment:Chronic Kidney Disea se: Estimated GFR < 60 mL/min/1.27u3Opxyoe Kidney Disease: Estimated GFR < 15 mL/min/1.73m2 Glucose 139(H) 60 - 115 mg/dL [facility] Calcium 9.0 8.4 - 10.2 mg/dL [facility] 07/05/2025 3:10 PM EST 07/05/2025 3:28 PM EST us Generic External Data Provider LAB BLOOD ORDERAB LES Final Result Performing Organization Address [facility]/ZIP Co de Phone Number [facility] [address] [place] [address] [phone] * (ABNORMAL) Hepatic Function Panel (07/05/2025 3:10 PM EST) Pathologist [facility] Bilirubin, Total 1.3(H) 0.0 - 1.0 mg/dL [facility] Bilirubin, Direct 0.5 0.0 - 0.5 mg/dL [facility] Aspartate Amino Transferase 23 5 - 37 U/L [facility] Alanine Aminotransferase 20 0 - 40 U/L [facility] Total Protein 7.2 6.5 - 8.0 g/dL [facility] Albumin Level 4.8 3.5 - 5.0 g/dL [facility] Alkaline Phosphatase 47 39 - 117 U/L [facility] 07/05/2025 3:10 PM EST 07/05/2025 3:28 PM EST us Generic External Data Provider LAB BLOOD ORDERAB LES Final Result Performing Organization Address City/State/[facility] Co de Phone Number [facility] [address] [place] [phone] * (ABNORMAL) CBC auto differential (07/05/2025 3:10 PM EST) [facility] White Blood Count 7.5 4.8 - 10.8 X10*3/uL [facility] Red Blood Count 4.47(L) 4.60 - 5.80 X10*6/uL [facility] Hemoglobin 14.5 14.0 - 18.0 g/dl [facility] Hematocrit 43.0 42.0 - 52.0 % [facility] Mean Corpuscular Volume 96.2 80.0 - 98.0 fL [facility] Mean Corpuscular Hemoglobin 32.4 27.0 - 33.0 pg [facility] Mean Corpuscular HGB Conc 33.7 31.0 - 36.0 g/dl [facility] Red Cell Distribution Width 11.9 11.0 - 16.0 % [facility] Platelet Count 203 160 - 400 X10*3/uL [facility] Mean Platelet Volume 10.5 9.4 - 12.4 fL [facility] Neutrophils Percent Auto 79.4(H) 45 - 73 % [facility] Imm Gran Pct Auto 0.3 0.0 - 0.4 % [facility] Lymphocytes Percent Auto 14.6(L) 20 - 40 % [facility] Monocytes Percent Auto 4.7 2 - 11 % [facility] Eosinophils Percent Auto 0.7 0 - 4 % [facility] Basophils Percent Auto 0.3 0 - 2 % [facility] NRBC Pct Auto 0.0 0.0 - 0.2 /100WBC [facility] Neutrophils Absolute Auto 6.0 2.0 - 8.3 x10*3/uL [facility] Imm Gran Abs Auto 0.02 0.00 - 0.03 X10*3/uL [facility] Lymphocytes Absolute Auto 1.1(L) 1.2 - 4.9 X10*3/uL [facility] Monocytes Absolute Auto 0.4 0.1 - 1.2 X10*3/uL [facility] Eosinophils Absolute Auto 0.1 0.0 - 0.4 X10*3/uL [facility] Basophils Absolute Auto 0.0 0.0 - 0.2 X10*3/uL [facility] NRBC Abs Auto 0.000 0.0 - 0.012 X10*3/uL [facility] 07/05/2025 3:10 PM EST 07/05/2025 3:28 PM EST us Generic External Data Provider LAB BLOOD ORDERAB LES Final Result [facility] [address] [place] [phone] documented in this encounter Visit Diagnoses Not on filedocumented in this encounter Additional Health Concerns Assessment Noted Time PHQ-9 Depression Total Score: 8 06/17/20 25 11:48 AM EDT documented as of this encounter Care Teams Mixer Whipped Topping Relationship Specialty Start Date End Date Haily Robb FNP [address] [place] [phone] PCP - General Family Medicine 05/01/22 Gregoria Brooks RN [address] [place] [address] Registered Nurse Family Medicine 06/15/25 Latricia Houser 06/16/25 documented as of this encounter
--- OUTSIDE RECORDS SUMMARY | 2025-07-05 17:55 | XMS_ITS | Encounter Summary ---
Author Organization [employer] Address [address] [facility] [address] [place] [address] Care Team Providers Care Obgyn Nurse Name Role Phone Clarisse Haily PHYSICIAN'S ASSISTANT Primary Care Provider [phone] Gregoria Brooks RN Unavailable [phone] Latricia Houser Unavailable Encounter Details Date [...] PM EDT Narrative 07/02/2025 4:06 PM EDT [address] [address] XRay Report Signed Patient: John Fitzpatrick MR#: [id number] : 1970 Acct:[id number] Age/Sex: 55 / M ADM Date: 07/02/25 Loc: .ED Attending Dr: Ordering Physician: Rah Dhaliwal Date of Service: 07/02/25 Procedure(s): XR chest 1V Accession Number(s): [id number] cc: Rah Dhaliwal; [facility] Reason for Exam: Couging. pnuemonia? EXAMINATION: [...] 07/02/25 1603 DD/ 1555 TD/TT: 07/02/25 1557 Ssrs Report Developer: LUIS ANTONIO Procedure Note Donotuseinterpreter, Image - 07/02/[address] [address] XRay Report Signed Patient: John Fitzpatrick AMR#: [id number] : 1970Acct:[id number] Age/Sex: 55 / MADM Date: 07/02/25 Loc: .ED Attending Dr: Ordering Physician: Rah Dhaliwal Date of Service: 07/02/25 Procedure(s): XR chest 1V Accession Number(s): [id number] cc: Rah Dhaliwal; Haily Robb Reason for [...] 07/02/25 1603 DD/ 1555 TD/TT: 07/02/25 1557 Ssrs Report Developer: LUIS ANTONIO [facility] External Provider IMG XR PROCEDURES Final Result * High Sensitivity Troponin I (07/02/2025 3:54 PM EDT) Pathologist [facility] TROPONIN I HIGH SENSITIVITY <2.7 <3.5 - 35.0 ng/L [facility] Comment:The [place]ello high sens itivity Troponin-I results should beused in conjunction with other diagnostic information suchas ECG, clinical observations and information, and patientsymptoms to aid in the diagnosis of MD. 07/02/2025 3:54 PM EDT 07/02/2025 3:57 PM EDT Generic External Data Provider LAB BLOOD ORDERAB LES Final Result [facility] [address] [place] [phone] * High Sensitivity Troponin I (07/02/2025 10:18 AM EDT) TROPONIN I HIGH SENSITIVITY <2.7 <3.5 - 35.0 ng/L [facility] Comment:The [place] high sens itivity Troponin-I results should beused in conjunction with other diagnostic information suchas ECG, clinical observations and information, and patientsymptoms to aid in the diagnosis of MD. 07/02/2025 10:1 8 AM EDT 07/02/2025 10:21 AM EDT us Generic External Data Provider LAB BLOOD ORDERAB LES Final Result [facility] [address] [place] [phone] * (ABNORMAL) Basic Metabolic Panel (07/02/2025 10:18 AM EDT) Sodium 142 135 - 145 mmol/L [facility] Potassium 4.0 3.3 - 5.1 mmol/L [facility] Chloride 105 96 - 108 mmol/L [facility] Carbon Dioxide 31(H) 22 - 29 mmol/L [facility] Anion Gap 10(L) 12 - 20 [facility] Urea Nitrogen (BUN) 12 9 - 16 mg/dL [facility] Creatinine, Serum 0.93 0.5 - 1.4 mg/dL [facility] Creatinine Clr Calc Pharmacy 75.9 [facility] Comment:eGFR (calculated fro m the MDRD study equation) and eCrCl(calculated from the Cockcroft-Gault equation) are based ondifferent parameters and may not yield comparable results.If eCrCl result is absurd, please check patient'sheight/weight. Estimated Glomerular Filt Rate >60 [facility] Comment:Chronic Kidney Disea se: Estimated GFR < 60 mL/min/1.12u3Gymasd Kidney Disease: Estimated GFR < 15 mL/min/1.73m2 Glucose 98 60 - 115 mg/dL [facility] Calcium 9.4 8.4 - 10.2 mg/dL [facility] 07/02/2025 10:1 8 AM EDT 07/02/2025 10:21 AM EDT us Generic External Data Provider LAB BLOOD ORDERAB LES Final Result [facility] [address] [place], [place] [phone] * (ABNORMAL) CBC auto differential (07/02/2025 10:18 AM EDT) White Blood Count 4.8 4.8 - 10.8 X10*3/uL [facility] Red Blood Count 4.42(L) 4.60 - 5.80 X10*6/uL [facility] Hemoglobin 14.4 14.0 - 18.0 g/dl [facility] Hematocrit 42.9 42.0 - 52.0 % [facility] Mean Corpuscular Volume 97.1 80.0 - 98.0 fL [facility] Mean Corpuscular Hemoglobin 32.6 27.0 - 33.0 pg [facility] Mean Corpuscular HGB Conc 33.6 31.0 - 36.0 g/dl [facility] Red Cell Distribution Width 11.9 11.0 - 16.0 % [facility] Platelet Count 201 160 - 400 X10*3/uL [facility] Mean Platelet Volume 10.1 9.4 - 12.4 fL [facility] Neutrophils Percent Auto 71.0 45 - 73 % [facility] Imm Gran Pct Auto 0.2 0.0 - 0.4 % [facility] Lymphocytes Percent Auto 18.8(L) 20 - 40 % [facility] Monocytes Percent Auto 7.5 2 - 11 % [facility] Eosinophils Percent Auto 1.9 0 - 4 % [facility] Basophils Percent Auto 0.6 0 - 2 % [facility] NRBC Pct Auto 0.0 0.0 - 0.2 /100WBC [facility] Neutrophils Absolute Auto 3.4 2.0 - 8.3 x10*3/uL [facility] Imm Gran Abs Auto 0.01 0.00 - 0.03 X10*3/uL [facility] Lymphocytes Absolute Auto 0.9(L) 1.2 - 4.9 X10*3/uL [facility] Monocytes Absolute Auto 0.4 0.1 - 1.2 X10*3/uL [facility] Eosinophils Absolute Auto 0.1 0.0 - 0.4 X10*3/uL [facility] Basophils Absolute Auto 0.0 0.0 - 0.2 X10*3/uL [facility] NRBC Abs Auto 0.000 0.0 - 0.012 X10*3/uL [facility] 07/02/2025 10:1 8 AM EDT 07/02/2025 10:21 AM EDT us Generic External Data Provider LAB BLOOD ORDERAB LES Final Result [facility] [address] [place] [phone] documented in this encounter Visit Diagnoses Not on filedocumented in this encounter Additional Health Concerns Assessment Noted Time PHQ-9 Depression Total Score: 8 06/17/20 25 11:48 AM EDT documented as of this encounter Care Teams Obgyn Nurse Relationship Specialty Start Date End Date Haily Robb FNP [address] [place] [address] PCP - General Family Medicine 05/01/22 Gregoria Brooks RN [address] [place] [address] Registered Nurse Family Medicine 06/15/25 Latricia Houser 06/16/25 documented as of this encounter
--- OUTSIDE RECORDS SUMMARY | 2025-07-05 17:55 | XMS_ITS | Clinical Summary ---
Author Organization [facility] Address [address] [place] [address] Phone Care Team Providers Care Corrosion Prevention Metal Sprayer Name Role Phone [facility] Primary Care Provider [phone] Medications polyethylene glycol (Golytely) 236-22.74-6.74 -5.86 gram [...] Screening 06/16/2024 Depression Screening 09/03/2024 COVID-19 Vaccine ( - 2023-2 5 season) 2025 Influenza Vaccine [...] Phone Billing Address Personal/Family Self 1970 [address] [facility] [address] [place] [address] MEDICAID - [place] Care Teams Corrosion Prevention Metal Sprayer Relationship Specialty Start Date End Date [employer] [address] [phone] PCP - General 05/20/24
[2025-07-05 17:58] VITALS: BP 119/72; PULSE 105; RESP 16; TEMP 36.3; O2SAT 98
== END 2025-07-05 17:58 | disposition home or self-care (01) ==
LOC: HO.ED 17:52
PROVIDERS: Physician Assistant; Emergency Provider Emergency Medicine; PCP Registered Nurse
DX: M54.50 Low back pain, unspecified (principal); I10 Essential (primary) hypertension; K21.9 Gastro-esophageal reflux disease without esophagitis; R10.32 Left lower quadrant pain; F17.200 Nicotine dependence, unspecified, uncomplicated; Z71.6 Tobacco abuse counseling
CPT/HCPCS: 36415; 80048; 80076; 83690; 85025; 99283

== ENCOUNTER 2025-07-09 11:07 | Outpatient (REF) | payer MEDICAID, SELFPAY ==
--- OUTSIDE RECORDS SUMMARY | 2025-07-09 09:00 | XMS_ITS | Encounter Summary ---
Author Organization [employer] Address [address] [place] [address] Care Team Providers Care Bottle Packer Name Role Phone Haily Robb COMMERCIAL REAL ESTATE MANAGER Primary Care Provider [phone] Gregoria Brooks RN Unavailable [phone] Latricia Houser Unavailable Encounter Details Date Type Department Care Team (Late st Contact Info) Description 07/09/2025 9:00 AM EST Office Visit [facility] [address] [place], [place] [phone] Francy Jennings MD [address] [place], [place] [phone] Mixed anxiety and depressive disorder (Primary Dx); Positive TB test; High direct bilirubin; Screen for STD (sexually transmitted disease); Chronic pruritus Social History Tobacco Use Types [...] 8:51 AM EST documented in this encounter Plan of Treatment Scheduled Orders Name Type Priority Associated Diagnoses [...] Visit Diagnoses Diagnosis Mixed anxiety and depressive disorder- Primary Dysthymic disorder Positive TB test High direct bilirubin Screen for STD (sexually transmitted disease) Screening examination for venereal disease Chronic pruritus documented in this encounter Additional Health Concerns Assessment Noted Time PHQ-9 Depression Total Score: 8 06/17/20 11:48 AM EDT documented as of this encounter Care Teams Bottle Packer Relationship Specialty Start Date End Date Haily Robb FNP [address] [place] [phone] PCP - General Family Medicine 05/01/22 Gregoria Brooks RN [address] [place] [phone] Registered Nurse Family Medicine 06/15/25 Latricia Houser 06/16/25 documented as of this encounter
[2025-07-09 12:38] LABS: Appearance Urine Clear; Glucose Urine UA Negative (Negative); PH 7.0 (5.0-9.0); Specific Gravity - Urine >= 1.030 (1.005-1.025)
--- OUTSIDE RECORDS SUMMARY | 2025-07-09 13:49 | XMS_ITS | Encounter Summary ---
Author Organization [employer] Address [address] [place] [address] Care Team Providers Care Pricer Name Role Phone Clarisse [facility] Primary Care Provider [phone] Gregoria Brooks RN Unavailable [phone] Latricia Houser Unavailable Reason for Visit * Reason Comments Med Refill Encounter Details Date Type Department Care Team (Late st Contact Info) Description 07/08/2024 Refill [facility] MED[facility]INE [address] [place], [place] [phone] [place] Haily [facility] [address] [place], [place] [phone] Mixed anxiety and depressive disorder Social History [...] documented as of this encounter Care Teams Pricer Relationship Specialty Start Date End Date Haily Robb FNP [address] [place] [address] PCP - General Family Medicine 05/01/22 Gregoria Brooks RN [address] [place] [address] Registered Nurse Family Medicine 06/15/25 Latricia Houser 06/16/25 documented as of this encounter
--- OUTSIDE RECORDS SUMMARY | 2025-07-09 13:50 | XMS_ITS | Clinical Summary ---
Author Organization [facility] Address [address] [place] [address] Phone Care Team Providers Care Fire Control Technician G Name Role Phone [facility] Primary Care Provider [phone] Medications polyethylene glycol (Golytely) 236-22.74-6.74 -5.86 gram [...] Phone Billing Address Personal/Family Self 1970 [address] [facility] [place] [address] MEDICA[place] - [place] Care Teams Fire Control Technician G Relationship Specialty Start Date End Date [place] [address] [address] PCP - General 05/20/24
--- OUTSIDE RECORDS SUMMARY | 2025-07-09 13:50 | XMS_ITS ---
Author Organization [employer] Address [address] [facility] [address]t [place] [address] Care Team Providers Care Manager Of Application Development Name Role Phone [facility] Primary Care Provider [phone] Gregoria Brooks RN Unavailable Latricia Houser Unavailable CM Complex Status:Enrolled (Active) Start date:06/15/2025 Enrollment date:06/17/2025 Enrollment reason:Referred by provider Overview Provider Referral- Patient needs assistance with getting reconnected with the [facility] program. Case Team Name Relationship Phone Gregoria Brooks RN(Responsible Staff) Registered Nurse Continued Care and Services Coordination
--- OUTSIDE RECORDS SUMMARY | 2025-07-09 13:50 | XMS_ITS | Encounter Summary ---
Author Organization [employer] Address [address] [facility] [address]t [place] [address] Care Team Providers Care Manager Protein Name Role Phone Haily Robb AIRLINE RESERVATION AGENT Primary Care Provider Gregoria Brooks RN Unavailable [phone] Latricia Houser Unavailable Reason for Visit * Reason Comments Med Refill Encounter Details Date Type Department Care Team (Late st Contact Info) Description 04/02/2023 Refill [facility] MEDICINE [address] [place], [place] [phone] Juanjose Barton MD [address] [place], [place] [phone] Chronic pruritus Social History Tobacco Use Types [...] as of this encounter Care Teams Manager Protein Relationship Specialty Start Date End Date Haily RobbANETA [address] [place] [address] PCP - General Family Medicine 05/01/22 Gregoria Brooks RN [address] [place] [address] Registered Nurse Family Medicine 06/15/25 Latricia Houser 06/16/25 documented as of this encounter
--- OUTSIDE RECORDS SUMMARY | 2025-07-09 13:50 | XMS_ITS | Encounter Summary ---
Author Organization [employer] Address [address] [facility] 7t [place] [address] Care Team Providers Care Hi Teacher Name Role Phone Clarisse [facility] Primary Care Provider Gregoria Brooks RN Unavailable [phone] Latricia Houser Unavailable Reason for Visit * Reason Onset Date Comments Medication Question 01/16/2023 Encounter Details Date Type Department Care Team (Late st Contact Info) Description 01/16/2023 Telephone [facility] MEDICINE 230 [place], [place] [phone] [place] [facility] [address] [place], [place] [phone] Medication Question Social History Tobacco Use Types [...] documented as of this encounter Care Teams Hi Teacher Relationship Specialty Start Date End Date Haily Robb FNP [address] [place] [address] PCP - General Family Medicine 05/01/22 Gregoria Brooks, CHAGO [address] [place] [address] Registered Nurse Family Medicine 06/15/25 Latricia Houser 06/16/25 documented as of this encounter
--- OUTSIDE RECORDS SUMMARY | 2025-07-09 13:50 | XMS_ITS | Encounter Summary ---
Author Organization [employer] Address [address] [facility] 7t [place] [address] Care Team Providers Care Group Home Supervisor Name Role Phone [place] CHARGE PREPARATION TECHNICIAN Primary Care Provider [phone] Gregoria Brooks RN Unavailable [phone] Latricia Houser Unavailable Reason for Visit * Reason Onset Date Comments Nurse Triage 02/11/2024 Encounter Details Date Type Department Care Team (Late st Contact Info) Description 02/11/[address] [facility] MEDICINE 230 [place], [place] [phone] [place] FNP [address] [place], [place] [phone] Nurse Triage Social History Tobacco Use Types [...] EDT Triage call returned to patient with [place] director of hotel [id number]. Patient reports ongoing issue withleft eye and [...] and she would like him referred to [facility] Refuse Collector. No diagnosis in chart.Advised of [facility] for evaluation today. [...] Reason: Other Override Notes: Being treated with curriculum development specialist with appt coming in 03/11/24 [...] involuntary movements The caller accepted this outcome Argentine speaker documented in this encounter Plan of [...] documented as of this encounter Care Teams Group Home Supervisor Relationship Specialty Start Date End Date Haily Robb FNP [address] [place] [address] PCP - General Family Medicine 05/01/22 Gregoria Brooks RN [address] [place] [address] Registered Nurse Family Medicine 06/15/25 Latricia Houser 06/16/25 documented as of this encounter
--- OUTSIDE RECORDS SUMMARY | 2025-07-09 13:50 | XMS_ITS | Encounter Summary ---
Author Organization [employer] Address [address] [facility] 7t [place] [address] Care Team Providers Care Bowling Alley Attendant Name Role Phone Clarisse [facility] Primary Care Provider [phone] Gregoria Brooks RN Unavailable [phone] Latricia Houser Unavailable Reason for Visit * Reason Comments Med Refill Encounter Details Date Type Department Care Team (Late st Contact Info) Description 01/01/2023 Refill [facility] MEDICINE 230 [place], [place] [phone] [place] Haily [facility] 230 [place], [place] [phone] Chronic sinusitis, unspecified location Social History Tobacco [...] documented as of this encounter Care Teams Bowling Alley Attendant Relationship Specialty Start Date End Date Haily Robb FNP [address] [place] [address] PCP - General Family Medicine 05/01/22 Gregoria Brooks RN [address] [place] [address] Registered Nurse Family Medicine 06/15/25 Latricia Houser 06/16/25 documented as of this encounter
--- OUTSIDE RECORDS SUMMARY | 2025-07-09 13:50 | XMS_ITS | Encounter Summary ---
Author Organization [employer] Address [address] [facility] 7t [place] [address] Care Team Providers Care Structural Steel Trades Worker Name Role Phone Haily Robb LICENSE REGISTRATION EXAMINER Primary Care Provider [phone] Gregoria Brooks RN Unavailable [phone] Latricia Houser Unavailable Reason for Visit * Reason Onset Date Comments Appointment Request 10/08/2023 Encounter Details Date Type Department Care Team (Late st Contact Info) Description 10/08/2023 Telephone [facility] MEDICINE 230 [place], [place] [phone] Haily Robb FNP 230 [place], [place] [phone] Appointment Request Social History Tobacco Use Types [...] gotten any better. Please contact pt at [phone] documented in this encounter Plan of Treatment Not on file documented as of this encounter Visit Diagnoses Not on filedocumented in this encounter Additional Health Concerns Assessment Noted Time PHQ-9 Depression Total Score: 0 08/15/20 23 3:52 PM EST documented as of this encounter Care Teams Structural Steel Trades Worker Relationship Specialty Start Date End Date Haily Robb FNP [address] [place] [address] PCP - General Family Medicine 05/01/22 Gregoria Brooks RN [address] [place] [address] Registered Nurse Family Medicine 06/15/25 Latricia Houser 06/16/25 documented as of this encounter
--- OUTSIDE RECORDS SUMMARY | 2025-07-09 13:50 | XMS_ITS | Encounter Summary ---
Author Organization [employer] Address [address] [facility] 7t [place] [address] Care Team Providers Care Senior Account Director Name Role Phone [facility] Primary Care Provider [phone] Gregoria Brooks RN Unavailable [phone] Latricia Houser Unavailable Reason for Visit * Reason Comments Med Refill Encounter Details Date Type Department Care Team (Late st Contact Info) Description 09/05/2022 Telephone [facility] MEDICINE 230 [place], [place] [phone] [facility] 230 [place] [address] Med Refill Social History Tobacco Use Types [...] - 09/06/2022 8:18 AM EST TC via P/I#[id number], explained to pt that his Clonazepam was prescribed from his psychiatric providerat [address] [facility] Mi Krueger. Provided pt the phone number for the [facility] site and encouraged him to call them for all refills of his Clonazepam. Pt thanked show card writer and said he understood. * Telephone Encounter - Yessi Cannon RN - 09/05/2022 3:04 PM EST Note on 08/02/22: Medication request:CLONAZEPAM Last visit 06/27/22. You sent a refill in June, it was picked up 07/12/22. He was originally getting this elsewhere. Not sure what you'd like to do. If you'll now be prescribing, then would you like him on WIRE DRAWER? documented in this encounter Plan of Treatment Not on file documented as of this encounter Visit Diagnoses Diagnosis Other specified anxiety disorders documented in this encounter Care Teams Senior Account Director Relationship Specialty Start Date End Date Haily Robb FNP [address] [place] [address] PCP - General Family Medicine 05/01/22 Gregoria Brooks RN [address] [place] [address] Registered Nurse Family Medicine 06/15/25 Latricia Houser 06/16/25 documented as of this encounter
--- OUTSIDE RECORDS SUMMARY | 2025-07-09 13:50 | XMS_ITS | Encounter Summary ---
Author Organization [employer] Address [address] [facility] [address] [place] [address] Care Team Providers Care Classification Officer Name Role Phone Clarisse [facility] Primary Care Provider Gregoria Brooks RN Unavailable [phone] Latricia Houser Unavailable Reason for Visit * Reason Onset Date Comments Results 03/16/2023 Encounter Details Date Type Department Care Team (Late st Contact Info) Description 03/16/2023 Telephone [facility] [address] [place], [place] [id number] ClarisseHaily [facility] [address] [place], [place] [phone] Results Social History Tobacco Use Types Packs/Day [...] 03/20/2023 4:06 PM EDT Return T/C to [phone] for below message, No answer. LVM to call back on [phone]. * Telephone Encounter - Kelli Boucher - 03/16/2023 2:04 PM EDT Tc from pt requesting a call in regards to results to recent lab orders. Please contact pt at [phone] (Bhutanese speaker) documented in this encounter Plan of Treatment Not on file documented as of this encounter Visit Diagnoses Not on filedocumented in this encounter Additional Health Concerns Assessment Noted Time PHQ-9 Depression Total Score: 0 01/26/20 23 3:38 PM EDT documented as of this encounter Care Teams Classification Officer Relationship Specialty Start Date End Date Haily Robb FNP [address] [place] [id number] PCP - General Family Medicine 05/01/22 Gregoria Brooks, [place] [address] [place] [id number] Registered Nurse Family Medicine 06/15/25 Latricia Houser 06/16/25 documented as of this encounter
--- OUTSIDE RECORDS SUMMARY | 2025-07-09 13:50 | XMS_ITS | Encounter Summary ---
Author Organization [employer] Address [address] [facility] [address] [place] [address] Care Team Providers Care Ballistic Expert Name Role Phone Haily Robb LUMBER TALLIER Primary Care Provider [phone] Gregoria Brooks RN Unavailable [phone] Latricia Houser Unavailable Reason for Visit * Reason Comments Med Refill Encounter Details Date Type Department Care Team (Late st Contact Info) Description 10/29/2023 Refill [facility] [address] [place], [place] [phone] Name, MD [place] [address] [place], [place] [phone] Chronic neck pain Social History Tobacco Use [...] documented as of this encounter Care Teams Ballistic Expert Relationship Specialty Start Date End Date [place] F[place] [address] [place] [address] PCP - General Family Medicine 05/01/22 Gregoria Brooks RN [address] [place] [address] Registered Nurse Family Medicine 06/15/25 Latricia Houser 06/16/25 documented as of this encounter
--- OUTSIDE RECORDS SUMMARY | 2025-07-09 13:50 | XMS_ITS | Clinical Summary ---
Author Organization [employer] Address [address] [facility] [address] [place] [address] Care Team Providers Care Relief Master Name Role Phone Clarisse [facility] Primary Care Provider [phone] Gregoria Brooks RN Unavailable [phone] Latricia Houser Unavailable Allergies Active Allergy [...] by mouth Once per day. 024 Active Blood Pressure kit Check blood pressure daily 1 kit 024 Active cromolyn (Nasachrom) 5.2 MG/ACT nasal sprayIndications: Nasal congestion Administer 1 spray into each nostril 4 times daily. 26 mL 12 024 Active loratadine (Claritin) 10 MG tabletIndications :Nasal [...] not crush or chew. 30 capsule 2 29/ 2026 Active Diclofenac Sodium (Voltaren) 1 % gel Use topical BID 100 g 3 025 Active benzocaine-mentho l (Chloraseptic) 6-10 MG lozengeIndication s:Sore throat Dissolve 1 lozenge in the mouth every 2 (two) hours if needed for sore throat. 100 lozenge 025 2025 Active Additional Information Patient not taking.Reported on 07/09/2025 cetirizine (ZyrTEC) 10 MG tabletIndications :Seasonal allergies TAKE 1 TABLET BY MOUTH EVERY DAY NEEDED FOR ALLERGIES 90 tablet 025 Active triamcinolone (Kenalog) 0.1 % ointmentIndicatio ns:Stasis dermatitis APPLY TOPICALLY TWICE DAILY 30 g 1 Active SUMAtriptan (Imitrex) 50 MG tabletIndications :Chronic [...] for up to 14 days. 42 tablet 025 2024 Active baclofen (Lioresal) 10 MG tabletIndications :Acute left-sided thoracic back pain Take one tablet TID PRN 30 tablet Active hydrOXYzine HCl (Atarax) 25 MG tabletIndications :Chronic pruritus TAKE 1-2 TABLET BY MOUTH 1h AC procedure for anxiety, can repeat in 6h prn anxiety 4 tablet Active hydrOXYzine HCl (Atarax) 25 MG tabletIndications :Chronic pruritus TAKE 1 TABLET BY MOUTH EVERY 6 HOURS NEEDED FOR ANXIETY OR FOR ITCHING 120 tablet 024 2024 Discontinued(R eorder (will not trigger notification to Pharmacy)) polycarbophil (Fibercon) 625 MG tablet Take 1 tablet (625 mg) by mouth 2 times daily. 180 tablet 3 025 2024 Discontinued(R eorder (will not trigger [...] times daily for 10 days. 30 tablet 2024 Discontinued(A lternate therapy) Acetaminophen 500 MG [...] Active Problems Problem Noted Date Diagnosed Date High direct bilirubin 07/09/2025 Acute non intractable tension-type headache 06/04 Palpitations [...] Avoidance of pollen as much as possible. May of ophthalmic mast cell stabilizer, nasal steroid and antihistamine. LLQ pain 01/06/2025 Assessment & Plan (01/06/2025 11:25 AM EDT): No evidence of acute abdomen. Chronic. He needs colon cancer screening and has been referred to [facility] in the past. He was encouraged to call in November but did not. We called today to facilitate appointment and give him the number to call. ER precautions discussed. [facility] reports pt has to call himself due to cancelled and did not make follow up. He was given the number [phone]. I stressed the importance of following up [...] any case Continue Carafate Call GI at [facility] for EGD and colonoscopy Eat small frequent [...] 03/2023 Established with therapy and psychiatry at [facility] No rash, fever, chills, lymphadenopathy [...] for anxiety sxs) that comes referred from [facility] for exacerbated anxiety in presence [...] a good support system through his family, congregation and recovery network, as well as having [...] to explore potential nerve damage due to shelter use of anxiolytics, even though John is on low dose medication. At this time is unclear if crawling/burning sensation on skin is solely due to medical and/or somatic presentation. However, sxs are causing significant psychological distress in patient. John was given information on how to reach out to [facility] team and HC numbers for [...] in male 11/02/2022 Overview (11/02/2022): Followed by [facility] urology Dr. Lux subcutaneous testosterone injection Assessment [...] of this appointment. His appointment is at [facility] clinic [phone] on January 27 at 11:00 am. He [...] depressive disorder 02/22/2017 Overview (08/05/2023): Followed by [facility] Clonazepam PRN Clonidine PRN Assessment & Plan (11/06/2022 5:05 AM EST): Spoke with [facility] pharmacy-the blue conazepam tablets that patient prefer are from a different registered pharmacist and are on back order. Pt will [...] Encounters Date Type Department Care Team Description 07/09/2025 9:00 AM EST Office Visit [facility] [address] [place] [address] Francy Jennings MD Mixed anxiety and depressive disorder (Primary Dx); Positive TB test; High direct bilirubin; Screen for STD (sexually transmitted disease); Chronic pruritus 07/09/2025 Orders Only [facility] External Provider, [facility] 07/09/2025 Travel 07/08/2025 Telephone [facility] [address] [place] [address] Haily Robb FNP Nurse Triage 07/07/[address] [address] Haily Robb FNP Care Coordination 07/06/2025 Results Follow-Up [facility] [address] [address] Haily Robb [employer] US Abdomen Complete 07/06/2025 Patient Outreach [address] [address] FairbanksHaily molina [employer] Care Management 07/05/2025 Orders Only GENERIC EXTERNAL DATA DEPARTMENT Provider, Generic External Data 07/03/2025 1:00 PM EDT Office Visit [address] [address] Jyoti Resendiz NP Acute left-sided thoracic back pain (Primary Dx); Other chest pain 07/03/2025 Travel 07/03/[address] [address] Haily Robb [facility] Follow-up 07/02/2025 Orders Only GENERIC EXTERNAL DATA DEPARTMENT Provider, Generic External Data 07/01/2025 Patient Outreach [address] [address] Haily Robb FNP Care Management (C3CM- FOLLOW UP CALL) 06/30/2025 Patient Outreach [address] [address] Haily Robb [facility] Care Coordination (C3 CM-W Latricia Houser telephone call outreach/) 06/24/2025 2:40 PM EDT [facility] [address] [address] Hollis Rutledge MD Erythema (Primary Dx); Positive QuantiFERON-TB Gold test 06/24/2025 Results [facility] [address] [address] Hollis Rutledge MD XR Chest 2 Views 06/24/2025 Patient Outreach [address] [address] Lino Holder [facility] 06/24/2025 Travel 06/24/[address] [address] Hermes Black, RN [facility]AT Communication 06/24/[address] [address] Haily Robb [employer] Results 06/23/2025 Patient Outreach [address] [address] Haily Robb FNP Care Management (C3CM- FOLLOW UP CALL ) 06/23/2025 Refill [facility] [address] [place] [phone] Roxana Gotti DO 06/22/2025 1:20 PM EDT [facility] [address] [address] Sanam Noland MD Acute non intractable tension-type headache; Palpitations; Left lower quadrant abdominal pain; Slow transit constipation 06/18/2025 Plan of Care Documentation [address] [address] 06/18/2025 Patient Outreach [address] [address] Haily Robb FNP Care Coordination 06/17/2025 Plan of Care Documentation [address] [address] 06/17/2025 Patient Outreach [address] [address] Haily Robb FNP Care Management (C3CM COMPLEX INITIAL ASSESSMENT/ ENROLLMENT-/) 06/16/2025 Patient Outreach [address] [address] Haily Robb [employer] Care Coordination (C3 CM-CHW Latricia Houser telephone call outreach) 06/16/2025 Patient Outreach [address] [address] Haily Robb [employer] Care Coordination (C3 CM-CHW Latricia Houser chart review) 06/16/2025 Patient Outreach [address] [address] Haily Robb [employer] Care Management (C3CM -CHART REVIEW ) 06/15/2025 Patient Outreach [facility] [address] [place] [phone] Haily Robb FNP 06/13/2025 Orders Only GENERIC EXTERNAL DATA DEPARTMENT Provider, Generic External Data 06/10/2025 2:00 PM EDT Office Visit [address] [address] Haily Robb FNP Somatic symptom disorder, persistent, moderate (Primary Dx); Latent tuberculosis; Encounter for immunization 06/10/2025 Travel 06/09/2025 Telephone [facility] [address] [place] [phone] Haily Robb FNP 06/04/2025 Telephone [facility] [address] [place] [address] Haily Robb FNP 06/04/2025 Refill [facility] [address] [place] [phone] Elda Love MD Seasonal allergies; Chronic nonintractable headache, unspecified headache type 06/03/2025 Refill [facility] [address] [place] [address] Haily Robb FNP Epigastric pain 06/03/2025 Refill [facility] [address] [place] [phone] Roxana Gotti DO 06/03/2025 Patient Outreach [address] [address] Haily Robb FNP Pre-visit Planning (SDOH screening negative and tobacco screening negative) 06/03/2025 Refill [facility] [address] [place] [phone] Haily Robb FNP Restless leg 06/02/2025 3:40 PM EDT Office Visit [facility] [address] [place] [phone] Elda Love MD Acute URI (Primary Dx) 06/02/2025 Travel 05/31/2025 Refill [facility] [address] [place] [phone] Haily Robb FNP Restless leg 05/27/2025 Refill [facility] [address] [place] [phone] Jana Morgan MD Bilateral lower extremity edema 05/19/2025 Orders Only [facility] [address] [place] [phone] Sanam Noland MD Chronic bilateral low back pain without sciatica (Primary Dx) 05/19/2025 Telephone [facility] [address] [place] [phone] Haily Robb FNP Med Refill 05/15/2025 10:00 AM EDT Office Visit [facility] [address] [place] [phone] Collins Reyes MD Bloating (Primary Dx); Drug-induced constipation; Concern about diabetes mellitus without diagnosis 05/15/2025 Travel 05/14/2025 Refill [facility] [address] [place] [phone] Roxana Gotti DO Epigastric pain 05/12/2025 9:20 AM EDT Office Visit [facility] [address] [place] [phone] Elda Love MD Chronic nonintractable headache, unspecified headache type 05/12/2025 Travel 05/08/[address] [address] ClarisseHaiyl molina FNP Referral 05/05/[address] [address] Haily Robb FNP Jun/jul recall 05/04/2025 Refill [facility] [address] [place] [address] Haily Robb FNP Wheezing 05/02/2025 Refill [facility] [address] [place] [phone] Haily Robb FNP Mixed anxiety and depressive disorder; Wheezing 04/29/2025 Orders Only GENERIC EXTERNAL DATA DEPARTMENT Provider, Generic External Data 04/27/2025 1:40 PM EDT Office Visit [facility] [address] [place] [phone] Sanam Noland MD Chronic bilateral low back pain without sciatica (Primary Dx); Chronic nonintractable headache, unspecified headache type 04/27/2025 Travel 04/21/2025 10:20 AM EDT Office Visit [facility] [address] [place] [address] Name, MD Collins Chronic nonintractable headache, unspecified headache type (Primary Dx) 04/21/2025 Travel from Last 3 Months Immunizations Immunization Administration Dates Next Due HepB-CpG 11/16/2022 Moderna Covid-19 Vaccine 12+ 08/16/2021,01/08/20,12/10/2020 Pfizer Covid-19 Vaccine 12+ 04/27/2022 Pfizer Covid-19 [...] Mass Index 20.77 07/09/2025 8:51 AM EST Plan of Treatment Health Maintenance Due Date [...] Additional history exists SDOH Screening 06/16/2026 06/16/2025 Depression Screening 06/17/2026 06/17/2025, 06/17/20 Alcohol/Substance Use Screening 07/09/2026 07/09/2025 Tobacco Screening 07/09/2026 07/09/2025 Dental X-Ray: Full Mouth 09/12/2026 09/11/2023, 06/04 [...] Procedure Name Priority Date/Time Associated Diagnosis Comments NT-PROBNP Routine 07/09/2025 12:11 PM EST HIGH SENSITIVITY TROPONIN I Routine 07/09/2025 12:11 PM EST COMPREHENSIVE METABOLIC PANEL Routine 07/09/2025 12:11 PM EST COVID-19 ID NOW ([employer]) Routine 07/09/2025 12:11 PM EST PROTHROMBIN TIME-INR Routine 07/09/2025 12:11 PM EST CBC WITH AUTO DIFFERENTIAL Routine 07/09/2025 12:11 PM EST INFLUENZA A B2 ID NOW ([employer]) Routine 07/09/2025 12:11 PM EST XR CHEST 2 VIEWS Routine 07/09/2025 11:5 2 AM EST URINALYSIS, COMPLETE Routine 07/09/2025 11:30 AM EST LIPASE Routine 07/05/2025 3:10 PM EST BASIC [...] AUTO DIFFERENTIAL Routine 04/29/2025 9:58 AM EDT HEPATITIS C AB W/REFL TO HCV RNA, [...] Recently Relevant to Health Maintenance Results * Influenza A B2 ID NOW ([facility]) (07/09/2025 12:11 PM EST) Only the most recent of2 resultswithin the time period is included. IDNOW SERIAL# [id number] [facility] Influenza A Negative Negative [facility] Influenza B2 Negative Negative [facility] Influenza A B2 Note See Note [facility] Comment:The Lemon ID NOW In [...] specimen and co- infection withRespiratory Syncytial Virus. 07/09/2025 12:1 1 PM EST 07/09/2025 12:15 PM EST us Generic External Data Provider LAB MICROBIOLOGY - GENERAL ORDERABLES Final Result [facility] [address] [place] [phone] * COVID-19 ID NOW ([facility]) (07/09/2025 12:11 PM EST) Only the most recent of3 resultswithin the time period is included. IDNOW SERIAL# [id number] [facility] COVID-19 TEST Negative Negative [facility] COVID-19 NOTE See Note [facility] Comment: Results are for the identification of SARS-CoV2 RNA. TheSARS-CoV2 RNA is generally detectable in respiratory samplesduring the acute phase of infection. Positive results areindicative of the presence of SARS-CoV-2 RNA; clinicalcorrelation with patient history and other diagnosticinformation is necessary to determine patient infectionstatus. Positive results do not rule out bacterial infectionor co- infection with other viruses.Testing facilities within the [place] and itsterritories are required to report all positive results [...] use by authorized laboratories.Testing performed on the [employer] ID NOW utilizing NAAT. 07/09/2025 12:1 1 PM EST 07/09/2025 12:15 PM EST [employer] External Data Provider LAB MOLECULAR KATIUSKA GNOSTICS ORDERABLES Final Result Performing Organization Address City/[facility] Co de Phone Number [facility] [address] [place] [phone] * High Sensitivity Troponin I (07/09/2025 12:11 PM EST) Only the most recent of5 resultswithin the time period is included. TROPONIN I HIGH SENSITIVITY <2.7 <3.5 - 35.0 ng/L [facility] Comment:The Lemon high sens itivity Troponin-I results should beused in conjunction with other diagnostic information suchas ECG, clinical observations and information, and patientsymptoms to aid in the diagnosis of ID. 07/09/2025 12:1 1 PM EST 07/09/2025 12:15 PM EST Generic External Data Provider LAB BLOOD ORDERAB LES Final Result Performing Organization Address [facility]/ZIP Co de Phone Number [facility] [address] [place] [phone] * NT-proBNP (07/09/2025 12:11 PM EST) NT-proBNP <15.8 <300 pg/mL [facility] Comment:Reference Range:Age Group (years) NT-proBNP (pg/ml) InterpretationAll <300 Negative: HF unlikelyFor patients presenting to the ED with clinical suspicion ofnew onset or worsening HF, see below:18 to <50 >299.9 to <450.0 Grayzone: [id number] to 75 >299.9 to <900.0 other causes of>75 >299.9 to <1800.0 NT-proBNP [id number] to <50 >449.9 Positive: HF [id number] >899.9>75 >1799.9Note: Elevated NT-proBNP levels should be interpreted inthe context of other clinical information. 07/09/2025 12:1 1 PM EST 07/09/2025 12:15 PM EST Generic External Data Provider LAB BLOOD ORDERAB LES Final Result [facility] [address] [place] [phone] * (ABNORMAL) CBC auto differential (07/09/2025 12:11 PM EST) Only the most recent of5 resultswithin the time period is included. White Blood Count 4.7(L) 4.8 - 10.8 X10*3/uL [facility] Red Blood Count 4.50(L) 4.60 - 5.80 X10*6/uL [facility] Hemoglobin 14.6 14.0 - 18.0 g/dl [facility] Hematocrit 43.8 42.0 - 52.0 % [facility] Mean Corpuscular Volume 97.3 80.0 - 98.0 fL [facility] Mean Corpuscular Hemoglobin 32.4 27.0 - 33.0 pg [facility] Mean Corpuscular HGB Conc 33.3 31.0 - 36.0 g/dl [facility] Red Cell Distribution Width 11.9 11.0 - 16.0 % [facility] Platelet Count 195 160 - 400 X10*3/uL [facility] Mean Platelet Volume 10.3 9.4 - 12.4 fL [facility] Neutrophils Percent Auto 63.3 45 - 73 % [facility] Imm Gran Pct Auto 0.2 0.0 - 0.4 % [facility] Lymphocytes Percent Auto 27.0 20 - 40 % [facility] Monocytes Percent Auto 7.5 2 - 11 % [facility] Eosinophils Percent Auto 1.1 0 - 4 % [facility] Basophils Percent Auto 0.9 0 - 2 % [facility] NRBC Pct Auto 0.0 0.0 - 0.2 /100WBC [facility] Neutrophils Absolute Auto 3.0 2.0 - 8.3 x10*3/uL [facility] Imm Gran Abs Auto 0.01 0.00 - 0.03 X10*3/uL [facility] Lymphocytes Absolute Auto 1.3 1.2 - 4.9 X10*3/uL [facility] Monocytes Absolute Auto 0.4 0.1 - 1.2 X10*3/uL [facility] Eosinophils Absolute Auto 0.1 0.0 - 0.4 X10*3/uL [facility] Basophils Absolute Auto 0.0 0.0 - 0.2 X10*3/uL [facility] NRBC Abs Auto 0.000 0.0 - 0.012 X10*3/uL [facility] 07/09/2025 12:1 1 PM EST 07/09/2025 12:15 PM EST us Generic External Data Provider LAB BLOOD ORDERAB LES Final Result [facility] [address] [place] [phone] * Prothrombin Time-INR (07/09/2025 12:11 PM EST) Prothrombin Time 12.0 11.2 - 13.5 SEC [facility] INTERNATIONAL NORM RATIO 1.0 0.9 - 1.1 [facility] Comment:INTERNATIONAL NORMAL IZED RATIO (INR) REFERENCE RANGES Reference RangeFor patients not on anticoagulant therapy: 0.9 - 1.1INR ranges for oral anticoagulanttherapy:For prevention and treatment of venous thrombosis and pulmonary embolism: 2.0 - 3.0For acute myocardial infarction with aspirin therapy: 2.0 - 3.0For acute myocardial infarction without aspirin therapy: 3.0 - 4.0For patients with mechanical prosthetic heart valves: 2.5 - 3.5 07/09/2025 12:1 1 PM EST 07/09/2025 12:15 PM EST us Generic External Data Provider LAB BLOOD ORDERAB LES Final Result [facility] [address] [place] [phone] [phone] * (ABNORMAL) Comprehensive Metabolic Panel (07/09/2025 12:11 PM EST) Only the most recent of2 resultswithin the time period is included. Sodium 139 135 - 145 mmol/L [facility] Potassium 4.4 3.3 - 5.1 mmol/L [facility] Comment:Slight Hemolysis.Int erpret result with caution. Chloride 103 96 - 108 mmol/L [facility] Carbon Dioxide 28 22 - 29 mmol/L [facility] Anion Gap 12 12 - 20 [facility] Urea Nitrogen (BUN) 16 9 - 16 mg/dL [facility] Creatinine, Serum 1.00 0.5 - 1.4 mg/dL [facility] Creatinine Clr Calc Pharmacy 68.5 [facility] Comment:eGFR (calculated fro m the MDRD study equation) and eCrCl(calculated from the Cockcroft-Gault equation) are based ondifferent parameters and may not yield comparable results.If eCrCl result is absurd, please check patient'sheight/weight. Estimated Glomerular Filt Rate >60 [facility] Comment:Chronic Kidney Disea se: Estimated GFR < 60 mL/min/1.99o6Oboojj Kidney Disease: Estimated GFR < 15 mL/min/1.73m2 Glucose 108 60 - 115 mg/dL [facility] Calcium 9.1 8.4 - 10.2 mg/dL [facility] Bilirubin, Total 1.1(H) 0.0 - 1.0 mg/dL [facility] Aspartate Amino Transferase 35 5 - 37 U/L [facility] Comment:Slight Hemolysis.Int erpret result with caution. Alanine Aminotransferase 21 0 - 40 U/L [facility] Total Protein 7.4 6.5 - 8.0 g/dL [facility] Albumin Level 4.8 3.5 - 5.0 g/dL [facility] Alkaline Phosphatase 40 39 - 117 U/L [facility] 07/09/2025 12:1 1 PM EST 07/09/2025 12:15 PM EST us Generic External Data Provider LAB BLOOD ORDERAB LES Final Result [facility] [address] [place] [phone] * XR Chest 2 Views (07/09/2025 11:52 AM EST) Only the most recent of2 resultswithin the time period is included. Anatomical Region Laterality Modality Chest Radiographic Cecelia ging 07/09/2025 11:5 2 AM EST Narrative 07/09/2025 12:14 PM EST [address] [address] XRay Report Signed Patient: John Fitzpatrick MR#: [id number] : 1970 Acct:[id number] Age/Sex: 55 / M ADM Date: 07/09/25 Loc: HO.ED Attending Dr: Ordering Physician: Tammy Gamez Date of Service: 07/09/25 Procedure(s): XR chest 2V Accession Number(s): [id number] cc: Tammy Gamez; [facility] Reason for Exam: chest pain EXAMINATION: XR CHEST CLINICAL INFORMATION: chest pain COMPARISON: July 02, 2025 TECHNIQUE: 2 views of the chest were obtained. FINDINGS: Again seen are mildly coarse interstitial markings. Lungs are clear otherwise. Heart size is within normal limits. There is no pleural effusion. No pneumothorax is identified. XR/XR chest 2V IMPRESSION: No acute disease, stable chest x-ray Electronically signed by: Finesse Witt MD 07/09/2025 12:11 PM EST RP Dictated By: Finesse Witt MD Signed By: <Electronically signed by Finesse Witt MD in OV> 07/09/25 1211 DD/ 1152 TD/TT: 07/09/25 1207 Chairman And Ceo: Procedure Note Donotuseinterpreter, Image - 07/09/2025 [place] [address] XRay Report Signed Patient: John Fitzpatrick AMR#: [id number] : 1970Acct:[id number] Age/Sex: 55 / MADM Date: 07/09/25 Loc: .ED Attending Dr: Ordering Physician: Tammy Gamez Date of Service: 07/09/25 Procedure(s): XR chest 2V Accession Number(s): [id number] cc: Tammy Gamez; [facility] Reason for Exam: chest pain EXAMINATION: XR CHEST CLINICAL INFORMATION: chest pain COMPARISON: July 02, 2025 TECHNIQUE: 2 views of the chest were obtained. FINDINGS: Again seen are mildly coarse interstitial markings. Lungs are clear otherwise. Heart size is within normal limits. There is no pleural effusion. No pneumothorax is identified. XR/XR chest 2V IMPRESSION: No acute disease, stable chest x-ray Electronically signed by: Finesse Witt MD 07/09/2025 12:11 PM EST RP Dictated By: Finesse Witt MD Signed By: <Electronically signed by Finesse Witt MD in OV> 07/09/25 1211 DD/ 1152 TD/TT: 07/09/25 1207 Chairman And Ceo: [facility] External Provider IMG XR PROCEDURES Final Result * (ABNORMAL) Urinalysis Complete (07/09/2025 11:30 AM EST) Color Urine Yellow [facility] Appearance Urine Clear [facility] PH 7.0 5.0 - 9.0 [facility] Glucose Urine UA Negative Negative mg/dL [facility] Urine Blood Negative Negative [facility] Specific Curlew - Urine >=1.030(H) 1.005 - 1.025 [facility] Urine Protein Trace Neg-Trace mg/dL [facility] Urine Ketones Trace Negative mg/dL [facility] Nitrite Urine Negative Negative [facility] Leukocyte Esterase Urine Negative Negative [facility] RBC Urine 0-2 0 - 2 /HPF [facility] Urine WBC 0-5 0 - 5 /HPF [facility] Urine Squamous Epithelial Cell 0-2 0 - 2 /HPF [facility] CALCIUM OXALATE CRYSTAL, UR Present [facility] Urine Bacteria None Seen None Seen [facility] Hyaline Casts, Urine 0-2 0 - 2 /LPF [facility] 07/09/2025 11:3 0 AM EST 07/09/2025 12:25 PM EST Generic External Data Provider LAB URINE ORDERAB LES Final Result [facility] [address] [place], [place] [phone] * Lipase (07/05/2025 3:10 PM EST) Only the most recent of2 resultswithin the time period is included. Lipase 16 8 - 78 U/L [facility] 07/05/2025 3:10 PM EST 07/05/2025 3:28 PM EST us Generic External Data Provider LAB BLOOD ORDERAB LES Final Result Performing Organization Address [facility] Co de Phone Number [facility] [address] [place] [phone] * (ABNORMAL) Hepatic Function Panel (07/05/2025 3:10 PM EST) Bilirubin, Total 1.3(H) 0.0 - 1.0 mg/dL [facility] Bilirubin, Direct 0.5 0.0 - 0.5 mg/dL [facility] Aspartate Amino Transferase 23 5 - 37 U/L [facility] Alanine Aminotransferase 20 0 - 40 U/L [facility] Total Protein 7.2 6.5 - 8.0 g/dL [facility] Albumin Level 4.8 3.5 - 5.0 g/dL [facility] Alkaline Phosphatase 47 39 - 117 U/L [facility] 07/05/2025 3:10 PM EST 07/05/2025 3:28 PM EST Generic External Data Provider LAB BLOOD ORDERAB LES Final Result Performing Organization Address [facility] Phone Number [facility] [address] [place] [phone] * (ABNORMAL) Basic Metabolic Panel (07/05/2025 3:10 PM EST) Only the most recent of3 resultswithin the time period is included. Sodium 140 135 - 145 mmol/L [facility] Potassium 3.5 3.3 - 5.1 mmol/L [facility] Chloride 102 96 - 108 mmol/L [facility] Carbon Dioxide 27 22 - 29 mmol/L [facility] Anion Gap 15 12 - 20 [facility] Urea Nitrogen (BUN) 10 9 - 16 mg/dL [facility] Creatinine, Serum 0.83 0.5 - 1.4 mg/dL [facility] Creatinine Clr Calc Pharmacy 83.1 [facility] Comment:eGFR (calculated fro m the MDRD study equation) and eCrCl(calculated from the Cockcroft-Gault equation) are based ondifferent parameters and may not yield comparable results.If eCrCl result is absurd, please check patient'sheight/weight. Estimated Glomerular Filt Rate >60 [facility] Comment:Chronic Kidney Disea se: Estimated GFR < 60 mL/min/1.42t6Foxard Kidney Disease: Estimated GFR < 15 mL/min/1.73m2 Glucose 139(H) 60 - 115 mg/dL [facility] Calcium 9.0 8.4 - 10.2 mg/dL [facility] 07/05/2025 3:10 PM EST 07/05/2025 3:28 PM EST us Generic External Data Provider LAB BLOOD ORDERAB LES Final Result Performing Organization Address City/State/[facility] Co de Phone Number [facility] [address] [place] [phone] * US Abdomen Complete (07/03/2025 9:12 PM EDT) Anatomical Region Laterality Modality Abdomen Ultrasound 07/03/2025 9:12 PM EDT Narrative 07/03/2025 9:14 PM EDT [address] [address] Ultrasound Report Signed Patient: John Fitzpatrick MR#: [id number] : 1970 Acct:[id number] Age/Sex: 55 / M ADM Date: 07/03/25 Loc: HO. Attending Dr: Roxana Gotti DO Ordering Physician: Roxana Gotti DO Date of Service: 07/03/25 Procedure(s): US abdomen complete Accession Number(s): [id number] cc: Roxana Gotti DO; [facility] Reason for Exam: epigastric pain CLINICAL HISTORY: epigastric pain US abdomen complete with color Doppler Comparison: CT/SR - CT ABDOMEN PELVIS W IV CON - 6/29/25 19:[address] - CT ABDOMEN PELVIS [...] in OV> 07/03/252112 DD/ 11 TD/TT: 07/03/252111 Chairman And Ceo: Procedure Note Donotuseinterpreter, Image - 07/03/2025 [place] [address] Ultrasound Report Signed Patient: John Fitzpatrick [facility]#: [id number] : 1970Acct:[id number] Age/Sex: 55 / MADM Date: 07/03/25 Loc: HO.US Attending Dr: Roxana Gotti DO Ordering Physician: Roxana Gotti DO Date of Service: 07/03/25 Procedure(s): US abdomen complete Accession Number(s): [id number] cc: Roxana Gotti DO; [facility] Reason for Exam: epigastric pain CLINICAL HISTORY: [...] in OV> 07/03/252112 DD/ 11 TD/TT: 07/03/252111 Chairman And Ceo: us Roxana Gotti DO IMG US PROCEDURES Edited Res ult - Final * XR Chest 1 View (07/02/2025 3:55 PM EDT) Only the most recent of2 resultswithin the time period is included. Anatomical Region Laterality Modality Chest Radiographic Cecelia ging 07/02/2025 3:55 PM EDT Narrative 07/02/2025 4:06 PM EDT [address] [address] XRay Report Signed Patient: John Fitzpatrick MR#: [id number] : 1970 Acct:[id number] Age/Sex: 55 / M ADM Date: 07/02/25 Loc: .ED Attending Dr: Ordering Physician: Rah Dhaliwal Date of Service: 07/02/25 Procedure(s): XR chest 1V Accession Number(s): [id number] cc: Rah Dhaliwal; [facility] Reason for Exam: Couging. pnuemonia? EXAMINATION: [...] 07/02/25 1603 DD/ 1555 TD/TT: 07/02/25 1557 Chairman And Ceo: LUIS ANTONIO Procedure Note Donotuseinterpreter, Image - 07/02/[address] [address] XRay Report Signed Patient: John Fitzpatrick [facility]#: [id number] : 1970Acct:[id number] Age/Sex: 55 / MADM Date: 07/02/25 Loc: .ED Attending Dr: Ordering Physician: Rah Dhaliwal Date of Service: 07/02/25 Procedure(s): XR chest 1V Accession Number(s): [id number] cc: Rah Dhaliwal; [facility] Reason for Exam: Couging. pnuemonia? EXAMINATION: [...] OV> 07/02/25 1603 DD/ 1555 TD/TT: 07/02/25 155 Chairman And Ceo: LUIS ANTONIO [facility] External Provider IMG XR PROCEDURES Final Result * TSH W/Reflex to FT4 (06/22/2025 2:19 PM EDT) TSH reflex Free T4 1.82 0.32 - 4.0 uIU/mL [facility] Blood Venous blood specimen / Unknown 06/22/2025 2:19 PM EDT 06/22/2025 3:58 PM EDT Sanam Peacock MD LAB BLOOD ORDERABLES Final Result [facility] [address] [place] [phone] * XR KUB and Upright 2 Views (06/13/2025 1:48 PM EDT) Anatomical Region Laterality Modality Radiographic Cecelia ging 06/13/2025 1:48 PM EDT Narrative 06/13/2025 1:50 PM EDT [address] [address] XRay Report Signed Patient: John Fitzpatrick MR#: [id number] : 1970 Acct:[id number] Age/Sex: 55 / M ADM Date: 06/13/25 Loc: HO.ED Attending Dr: Ordering Physician: Fay Rosales Date of Service: 06/13/25 Procedure(s): XR KUB Accession Number(s): [id number] cc: Fay Rosales; [facility] Reason for Exam: constipation CLINICAL HISTORY: [...] 06/13/25 1349 DD/ 1348 TD/TT: 06/13/25 1348 Chairman And Ceo: Procedure Note Donotuseinterpreter, Image - 06/13/2025 [place] [address] XRay Report Signed Patient: John Fitzpatrick [facility]#: [id number] : 1970Acct:[id number] Age/Sex: 55 / MADM Date: 06/13/25 Loc: HO.ED Attending Dr: Ordering Physician: Fay Rosales Date of Service: 06/13/25 Procedure(s): XR KUB Accession Number(s): [id number] cc: Fay Rosales; [facility] Reason for Exam: constipation CLINICAL HISTORY: [...] 06/13/25 1349 DD/ 1348 TD/TT: 06/13/25 1348 Chairman And Ceo: us [facility] External Provider IMG XR PROCEDURES Final Result * Urinalysis w/reflex microscopic (06/13/2025 12:33 PM EDT) Color Urine Yellow [facility] Appearance Urine Clear [facility] PH 8.5 5.0 - 9.0 [facility] Glucose Urine UA Negative Negative mg/dL [facility] Urine Blood Negative Negative [facility] Specific Curlew - Urine 1.020 1.005 - 1.025 [facility] Urine Protein Negative Neg-Trace mg/dL [facility] Urine Ketones Negative Negative mg/dL [facility] Nitrite Urine Negative Negative [facility] Leukocyte Esterase Urine Negative Negative [facility] 06/13/2025 12:3 3 PM EDT 06/13/2025 12:37 PM EDT Narrative [facility] - 06/13/2025 1:25 PM EDT [id number], Clean Catch Generic External Data Provider LAB URINE ORDERAB LES Final Result Performing Organization Address [facility] Co de Phone Number [facility] [address] [place] [phone] * Magnesium (06/13/2025 12:28 PM EDT) Magnesium 1.9 1.6 - 2.6 mg/dL [facility] 06/13/2025 12:2 8 PM EDT 06/13/2025 12:31 PM EDT Generic External Data Provider LAB BLOOD ORDERAB LES Final Result Performing Organization Address City/[facility] Co de Phone Number [facility] [address] [place] [address] [phone] * (ABNORMAL) POCT Hgb A1c (05/15/2025 10:34 AM EDT) Hemoglobin A1C 5.8(A) 4.0 - 5.7 % QC Media Lot # [id number] Lot# Expiration Date 627 Blood 05/15/2025 10:3 4 AM EDT Collins Name POINT OF CARE TEST ENTER/EDIT OR DERABLES Final Result * POCT Glucose (05/15/2025 10:34 AM EDT) Glucose Blood, POC 144 60 - 200 mg/dL [employer] Lot # [id number] Lot# Expiration Date 101,225 Blood Capillary blood specimen / Unknown 05/15/2025 10:34 AM EDT Collins Reyes MD POINT OF CARE TEST ENTER/EDIT OR DERABLES Final Result * CT Head w/o Contrast (04/29/2025 11:32 AM EDT) Anatomical Region Laterality Modality Head, Neck Computed Tomogra phy 04/29/2025 11:3 2 AM EDT Narrative 04/29/2025 12:15 PM EDT [address] [address] [address] Scan Report Signed Patient: John Fitzpatrick MR#: [id number] : 1970 Acct:[id number] Age/Sex: 55 / M ADM Date: 04/29/25 Loc: .ED Attending Dr: Ordering Physician: Erik Montano DO Date of Service: 04/29/25 Procedure(s): CT head/brain wo IV con Accession Number(s): [id number] cc: Erik Montano DO; [facility] Report Number: [id number]: Total DLP = 672.00 mGy-cm EXAMINATION: CT [...] 04/29/25 1212 DD/ 1132 TD/TT: 04/29/25 1205 Chairman And Ceo: Procedure Note Donotuseinterpreter, Image - 04/29/[address] [address] [address] Scan Report Signed Patient: John Fitzpatrick [facility]#: [id number] : 1970Acct:[id number] Age/Sex: 55 / MADM Date: 04/29/25 Loc: HO.ED Attending Dr: Ordering Physician: Erik Montano DO Date of Service: 04/29/25 Procedure(s): CT head/brain wo IV con Accession Number(s): [id number] cc: Erik Montano DO; [facility] Report Number: [id number]: Total DLP = 672.00 mGy-cm EXAMINATION: CT [...] 04/29/25 1212 DD/ 1132 TD/TT: 04/29/25 1205 Chairman And Ceo: [facility] External Provider IMG CT PROCEDURES Final Result * Hepatitis C Antibody with Reflex to HCV, RNA, Quantitative, Real-Time PCR (01/06/2025 10:11 AM EDT) Hepatitis C Antibody Nonreactive Nonreactive [facility] Comment:Antibodies to HCV no t detected; does not exclude early acuteHCV infection. Blood Venous blood specimen / Unknown 01/06/2025 10:11 AM EDT 01/06/2025 11:07 AM EDT us Hoa Dueñas HOT POND OPERATOR LAB BLOOD ORDERABLES Final Resul t Performing Organization Address City/[facility]/ZIP Co de Phone Number [facility] [address] [place] [phone] * Lipid Panel, Standard (03/19/2024 9:34 AM EDT) Triglycerides 66 <150 mg/dL [facility] Comment:Desirable Triglyceri de: less than 150 mg/dLBorderline High Triglyceride 150-199 mg/dLHigh Triglyceride: 200-499 mg/dLVery High Triglyceride: greater than or equal to 5OO mg/dL Cholesterol 112 <200 mg/dL [facility] Comment:Desirable Cholestero l: less than 200 mg/dLBorderline High Cholesterol: 200-239 mg/dLHigh Cholesterol: greater than 239 mg/dL LDL Cholesterol Calculated 58 <100 mg/dL [facility] Comment:Desirable LDL: less than 100 mg/dLNear Optimal/Above Optimal LDL: 110- 129 mg/dLBorderline High LDL: 130-159 mg/dLHigh LDL: 160-189 mg/dLVery High LDL: greater than or equal to 190 mg/dL HDL Cholesterol 41 >40 mg/dL [facility] Comment:Desirable HDL: great er than 40 mg/dL Note: This HDL assay may give artificially low results in patients with liver disease. Blood Venous blood specimen / Unknown 03/19/2024 9:34 AM EDT 03/19/2024 11:12 AM EDT us Roxana Gotti DO LAB BLOOD ORDERABLES Final R esult Performing Organization Address City/[facility]/ZIP Co de Phone Number [facility] [address] [place] [phone] * HIV-1 RNA, Quantitative, Real-Time PCR (03/22/2023 11:53 AM EDT) HIV RNA PCR Qn Copies NOT DETECTED NOT DETECTED copies/mL [facility] HIV RNA PCR Qn Log Copies NOT DETECTED NOT DETECTED [facility] Comment:Result Units: Log co pies/mLThis test was performed using Real-Time Polymerase ChainReaction.Reportable Range: 20 copies/mL to 10,000,000 copies/mL(1.30 log copies/mL to 7.00 log copies/mL).THIS TEST WAS PERFORMED AT:[employer] [place] [id number] GONG MD Blood Venous blood specimen / Unknown 03/22/2023 11:53 AM EDT 03/22/2023 1:32 PM EDT us Jessica Guillen MATERIAL HANDLER 1ST SHIFT LAB BLOOD ORDERABLES Final Res ult [facility] [address] [place] [phone] from Last 3 Months or Most Recently Relevant to Health Maintenance Insurance [facility] C3 DENTAL-[facility] MEDICAID STAND ADULT Care Teams Relief Master Relationship Specialty Start Date End Date [place] Haily [facility] [address] [place] [address] PCP - General Family Medicine 05/01/22 Gregoria Brooks RN [address] [place] [address] Registered Nurse Family Medicine 06/15/25 Latricia Houser 06/16/25
--- OUTSIDE RECORDS SUMMARY | 2025-07-09 13:50 | XMS_ITS | Encounter Summary ---
Author Organization [employer] Address [address] [facility] 7t [place] [address] Care Team Providers Care Director Employment Name Role Phone Clarisse [facility] Primary Care Provider [phone] Gregoria Brooks RN Unavailable [phone] Latricia Houser Unavailable Reason for Visit * Reason Onset Date Comments triage 11/10/2022 Encounter Details Date Type Department Care Team (Late st Contact Info) Description 11/10/2022 Telephone [facility] [address] [place], [place] [phone] ClarisseHaily [facility] [address] [place], [place] [phone] triage Social History Tobacco Use Types Packs/Day [...] in office. Pt agrees to come into [facility] for exam. Pt also advised to call [...] as of this encounter Care Teams Director Employment Relationship Specialty Start Date End Date Haily Robb FNP [address] [place] [phone] PCP - General Family Medicine 05/01/22 Gregoria Brooks RN [address] [place] [address] Registered Nurse Family Medicine 06/15/25 Latricia Houser 06/16/25 documented as of this encounter
--- OUTSIDE RECORDS SUMMARY | 2025-07-09 13:50 | XMS_ITS | Encounter Summary ---
Author Organization [employer] Address [address] [facility] 7t [place] [address] Care Team Providers Care Development Technologist Name Role Phone Haily Robb DOUGHNUT DOUGH MIXER Primary Care Provider [phone] Gregoria Brooks RN Unavailable [phone] Latricia Houser Unavailable Reason for Visit * Reason Comments Med Refill Encounter Details Date Type Department Care Team (Late st Contact Info) Description 04/02/2023 Refill [facility] [address] [place], [place] [phone] Hollis Rutledge MD [address] [place], [place] [phone] Social History Tobacco Use Types Packs/Day Years [...] documented as of this encounter Care Teams Development Technologist Relationship Specialty Start Date End Date Clarisse ANETA Johansen [address] [place] [address] PCP - General Family Medicine 05/01/22 Gregoria Brooks RN [address] [place] [address] Registered Nurse Family Medicine 06/15/25 Latricia Houser 06/16/25 documented as of this encounter
--- OUTSIDE RECORDS SUMMARY | 2025-07-09 13:50 | XMS_ITS | Encounter Summary ---
Author Organization [employer] Address [address] [facility] 7t [place] [address] Care Team Providers Care Data Control Clerk Name Role Phone Clarisse [facility] Primary Care Provider [phone] Gregoria Boroks RN Unavailable [phone] Latricia Houser Unavailable Reason for Visit * Reason Onset Date Comments Med Refill 12/13/2023 Encounter Details Date Type Department Care Team (Late st Contact Info) Description 12/13/2023 Telephone [facility] MEDICINE [address] [place], [place] [phone] ClarisseHaily [facility] [address] [place], [place] [phone] Med Refill Social History Tobacco Use Types [...] 10:24 AM EDT Medication was sent to [facility] on 11/09/23 with 2 refills. * Telephone Encounter - Christine Taylor - 12/13/2023 10:19 AM EDT TC from pt requesting medication refill. Medications needing refill : melatonin 5 MG tablet To be sent to: [facility] - [place], [place] - [address] documented in this encounter Plan of Treatment Not on file documented as of this encounter Visit Diagnoses Not on filedocumented in this encounter Additional Health Concerns Assessment Noted Time PHQ-9 Depression Total Score: 0 08/15/20 23 3:52 PM EST documented as of this encounter Care Teams Data Control Clerk Relationship Specialty Start Date End Date Haily Robb, METAL TRADES INSTRUCTOR [address] [place] [address] PCP - General Family Medicine 05/01/22 Gregoria Brooks RN [address] [place] [address] Registered Nurse Family Medicine 06/15/25 Latricia Houser 06/16/25 documented as of this encounter
--- OUTSIDE RECORDS SUMMARY | 2025-07-09 13:50 | XMS_ITS ---
Author Organization [employer] Address [address] [facility] 7t [place] [address] Care Team Providers Care Dietetics Director Name Role Phone [place] SALICYLIC ACID BLENDER Primary Care Provider [phone] Gregoria Brooks RN Unavailable [phone] Latricia Houser Unavailable [facility] Status:Enrolled (Active) Start date:06/16/2025 Enrollment date:06/16/2025 Enrollment reason:Referred by provider Overview Provider Referral- Patient needs assistance with getting reconnected with the [facility] Day program. Please outreach to patient. Case Team Name Relationship Phone Latricia Houser(Responsible Staff) Continued Care and Services Coordination
--- OUTSIDE RECORDS SUMMARY | 2025-07-09 13:50 | XMS_ITS | Encounter Summary ---
Author Organization [employer] Address [address] [facility] 7t [place] [address] Care Team Providers Care District Sales Representative Name Role Phone Clarisse [facility] Primary Care Provider [phone] Gregoria Brooks RN Unavailable [phone] Latricia Houser Unavailable Reason for Visit * Reason Onset Date Comments Med Refill 09/25/2023 Encounter Details Date Type Department Care Team (Late st Contact Info) Description 09/25/2023 Telephone [facility] MEDICINE [address] [place], [place] [phone] ClarisseHaily [facility] [address] [place], [place] [phone] Med Refill Social History Tobacco Use Types [...] 200 MG/ML injection To be sent to: [facility] - [place], [place] - [address] [facility] documented in this encounter Plan of Treatment Not on file documented as of this encounter Visit Diagnoses Not on filedocumented in this encounter Additional Health Concerns Assessment Noted Time PHQ-9 Depression Total Score: 0 08/15/20 3:52 PM EST documented as of this encounter Care Teams District Sales Representative Relationship Specialty Start Date End Date Haily RobbANEAT [address] [place] [address] PCP - General Family Medicine 05/01/22 Gregoria Brooks RN [address] [place] [address] Registered Nurse Family Medicine 06/15/25 Latricia Houser 06/16/25 documented as of this encounter
--- OUTSIDE RECORDS SUMMARY | 2025-07-09 13:50 | XMS_ITS | Encounter Summary ---
Author Organization [employer] Address [address] [facility] [address] [place] [address] Care Team Providers Care Cnc Field Service Engineer Name Role Phone Clarisse [facility] Primary Care Provider Gregoria Brooks RN Unavailable [phone] Latricia Houser Unavailable Reason for Visit * Reason Onset Date Comments Medication Question 08/24/2022 Encounter Details Date Type Department Care Team (Late st Contact Info) Description 08/24/2022 Telephone [facility] MEDICINE [address] [place], [place] [phone] MorenciHaily FNP [address] [place], [place] [phone] Medication Question Social History Tobacco Use Types [...] requesting a call back. States went to [employer] his medication and they gave him vitamin C and he would like to know if he should be taking them again . Please call to clarify. documented in this encounter Plan of Treatment Not on file documented as of this encounter Visit Diagnoses Not on filedocumented in this encounter Care Teams Cnc Field Service Engineer Relationship Specialty Start Date End Date Haily Robb FNP [address] [place] [address] PCP - General Family Medicine 05/01/22 Gregoria Brooks RN [address] [place] [phone] Registered Nurse Family Medicine 06/15/25 Latricia Houser 06/16/25 documented as of this encounter
--- OUTSIDE RECORDS SUMMARY | 2025-07-09 13:50 | XMS_ITS | Encounter Summary ---
Author Organization [employer] Address [address] [facility] 7t [place] [address] Care Team Providers Care Creel Hand Name Role Phone Clarisse [facility] Primary Care Provider Gregoria Brooks RN Unavailable [phone] Latricia Houser Unavailable Reason for Visit * Reason Onset Date Comments Triage 09/20/2022 Encounter Details Date Type Department Care Team (Late st Contact Info) Description 09/20/2022 Telephone [facility] MEDICINE [address] [place], [place] [phone] ClarisseHaily [facility] [address] [place], [place] [phone] Triage Social History Tobacco Use Types Packs/Day [...] 09/20/2022 11:55 AM EST Triage call with [place] Supervisor [place] [id number] Pt reports an area on back that [...] No high acuity concerns reported by caller SINHALA SPEAKER The caller accepted this outcome documented in this encounter Plan of Treatment Not on file documented as of this encounter Visit Diagnoses Not on filedocumented in this encounter Care Teams Creel Hand Relationship Specialty Start Date End Date Haily Robb FNP [address] [place] [address] PCP - General Family Medicine 05/01/22 Gregoria Brooks RN [address] [place] [address] Registered Nurse Family Medicine 06/15/25 Latricia Houser 06/16/25 documented as of this encounter
--- OUTSIDE RECORDS SUMMARY | 2025-07-09 13:50 | XMS_ITS | Encounter Summary ---
Author Organization [employer] Address [address] [facility] 7t [place] [address] Care Team Providers Care Keyboard Teacher Name Role Phone Clarisse [facility] Primary Care Provider Gregoria Brooks RN Unavailable [phone] Latricia Houser Unavailable Reason for Visit * Reason Onset Date Comments Nurse Triage 02/16/2023 Encounter Details Date Type Department Care Team (Late st Contact Info) Description 02/16/[address] [facility] [address] [place], [place] [phone] [place]aily [facility] [address] [place], [place] [phone] Nurse Triage Social History Tobacco Use Types [...] - 02/23/2023 2:49 PM EDT T/C to [id number] through [employer] interpreters id - [id number] for below message, pt. Verbally agreed and understood. * Telephone Encounter - Angela Whitman LPN - 02/16/2023 2:48 PM EDT Triage call returned to patient via [employer] Tank[employer] Driver [id number]. Patient called with concerns of Left eye burning and tearing at times with blurred vision. No irritant or object in eye at this time. Patient reports that he was seen some time ago in [facility] and was given order to obtain eye drops for dry eye. He is angry that he had to pay for them out of pocket and that they did not help. Patient requesting specifically a referral and declines appts. in [facility] or with Team providers later [...] suggested disposition Override Notes: Patient seen in [facility] and was told to use eye drops several months ago. Patient requesting only referral to Merch[employer]ise Presentation Associate. Video visit not offered Positive Triage Question: [...] The caller accepted this outcome Patient speaks croatian documented in this encounter Plan of Treatment Not on file documented as of this encounter Visit Diagnoses Not on filedocumented in this encounter Additional Health Concerns Assessment Noted Time PHQ-9 Depression Total Score: 0 01/26/20 3:38 PM EDT documented as of this encounter Care Teams Keyboard Teacher Relationship Specialty Start Date End Date BartleyHaily FNP [address] [place] [address] PCP - General Family Medicine 05/01/22 Gregoria Brooks RN [address] [place] [address] Registered Nurse Family Medicine 06/15/25 Latricia Houser 06/16/25 documented as of this encounter
--- OUTSIDE RECORDS SUMMARY | 2025-07-09 13:51 | XMS_ITS | Encounter Summary ---
Author Organization [employer] Address [address] [facility] [address] 7t [place] [address] Care Team Providers Care Rouge Sifter Name Role Phone Clarisse [facility] Primary Care Provider [phone] Gregoria Brooks RN Unavailable [phone] Latricia Houser Unavailable Reason for Visit * Reason Comments Med Refill Encounter Details Date Type Department Care Team (Late st Contact Info) Description 08/28/2024 Refill [facility] [address] [employer], [place] [phone] [place] Haily [facility] [address] [place], [place] [phone] Mixed anxiety and depressive disorder Social History [...] documented as of this encounter Care Teams Rouge Sifter Relationship Specialty Start Date End Date Haily Robb FNP [address] [place] [address] PCP - General Family Medicine 05/01/22 Gregoria Brooks RN [address] [place] [address] Registered Nurse Family Medicine 06/15/25 Latricia Houser 06/16/25 documented as of this encounter
--- OUTSIDE RECORDS SUMMARY | 2025-07-09 13:51 | XMS_ITS | Encounter Summary ---
Author Organization [employer] Address [address] [facility] [address] 7[address] [place] [address] Care Team Providers Care Smoke Eater Name Role Phone Clarisse [facility] Primary Care Provider Gregoria Brooks RN Unavailable [phone] Latricia Houser Unavailable Reason for Visit * Reason Onset Date Comments Nurse Triage 07/08/2025 Encounter Details Date Type Department Care Team (Late st Contact Info) Description 07/08/2025 Telephone [facility] 230 [place], [place] [phone] [place] Haily [facility] [address] [place], [place] [phone] Nurse Triage Social History Tobacco Use Types [...] encounter Miscellaneous Notes * Telephone Encounter - Sanna Patterson RN - 07/08/2025 11:51 AM EST TC to pt to triage for chest pain and high BP. pt states he has been to the ED a few times for highBP, in a center with nephew when they took his BP due to not feeling well. pt is on the phone, ableto complete full sentences, walking without concern. BP was 150/85, HR 109. pt has not been taking Lasix. pt reports chest pain, 6/10. pain sometimes radiates to left arm. pt states pt is having blurred vision as well, pt states the veins in his brain are inflamed . nurse advised pt to go to ED now. pt agrees to plan, does not have anyone to drive him, pt to call an ambulance. Protocol Used: Blood Pressure - High (Adult) Protocol-Based Disposition: Go to ED Now Positive Triage Questions: * Systolic BP >= 160 OR Diastolic >= 100, and any cardiac (e.g., breathing difficulty, chest pain) or neurologic symptoms (e.g., new-onset blurred or double vision) * Systolic BP >= 130 OR Diastolic >= 80, and is not taking BP medications * All higher-acuity triage questions were negative Care Advice Discussed: * Reasons To Call Back - You want to go into the office for a blood pressure check - You become worse documented in this encounter Plan of Treatment [...] documented as of this encounter Care Teams Smoke Eater Relationship Specialty Start Date End Date Haily Robb FNP [address] [place] [address] PCP - General Family Medicine 05/01/22 Gregoria Brooks RN [address] [place] [address] Registered Nurse Family Medicine 06/15/25 Latricia Houser 06/16/25 documented as of this encounter
--- OUTSIDE RECORDS SUMMARY | 2025-07-09 13:51 | XMS_ITS | Encounter Summary ---
Author Organization [employer] Address [address] [facility] 7t [place] [address] Care Team Providers Care Adolescent Medicine Specialist Name Role Phone Hialy Robb [facility] Primary Care Provider [phone] Gregoria Brooks RN Unavailable [phone] Latricia Houser Unavailable Encounter Details Date Type Department Care Team (Latest Contact Info) Description 06/01/2022 Abstract [facility] CONVERSIONS Dental, Provider, DDS Social History Tobacco [...] on filedocumented in this encounter Care Teams Adolescent Medicine Specialist Relationship Specialty Start Date End Date Haily RobbANETA [address] [place] [address] PCP - General Family Medicine 05/01/22 Gregoria Brooks, CHAGO [address] [place] [address] Registered Nurse Family Medicine 06/15/25 Latricia Houser 06/16/25 documented as of this encounter
--- OUTSIDE RECORDS SUMMARY | 2025-07-09 13:51 | XMS_ITS | Encounter Summary ---
Author Organization [employer] Address [address] [facility] 7t [place] [address] Care Team Providers Care Charter Bus Driver Name Role Phone Haily Robb [facility] Primary Care Provider [phone] Gregoria Brooks RN Unavailable [phone] Latricia Houser Unavailable Encounter Details Date Type Department Care Team (Latest Contact Info) Description 06/16/2020 Abstract [facility] CONVERSIONS Dental, Provider, DDS Social History [...] on filedocumented in this encounter Care Teams Charter Bus Driver Relationship Specialty Start Date End Date Haily RobbANETA [address] [place] [address] PCP - General Family Medicine 05/01/22 Gregoria Brooks, CHAGO [address] [place] [address] Registered Nurse Family Medicine 06/15/25 Latricia Houser 06/16/25 documented as of this encounter
--- OUTSIDE RECORDS SUMMARY | 2025-07-09 13:51 | XMS_ITS | Encounter Summary ---
Author Organization [employer] Address [address] [facility] 7t [place] [address] Care Team Providers Care Mechanical Engineering Lecturer Name Role Phone Clarisse Haily [facility] Primary Care Provider [phone] Gregoria Brooks RN Unavailable [phone] Latricia Houser Unavailable Encounter Details Date [...] EST) Lipase 16 8 - 78 U/L [facility] 07/05/2025 3:10 PM EST 07/05/2025 3:28 PM EST us Generic External Data Provider LAB BLOOD ORDERAB LES Final Result Performing Organization Address City/[facility]/ZIP Co de Phone Number [facility] [address] [place] [phone] [phone] * (ABNORMAL) Basic Metabolic Panel (07/05/2025 3:10 PM EST) Sodium 140 135 - 145 mmol/L [facility] Potassium 3.5 3.3 - 5.1 mmol/L [facility] Chloride 102 96 - 108 mmol/L [facility] Carbon Dioxide 27 22 - 29 mmol/L [facility] Anion Gap 15 12 - 20 [facility] Urea Nitrogen (BUN) 10 9 - 16 mg/dL [facility] Creatinine, Serum 0.83 0.5 - 1.4 mg/dL [facility] Creatinine Clr Calc Pharmacy 83.1 [facility] Comment:eGFR (calculated fro m the MDRD study equation) and eCrCl(calculated from the Cockcroft-Gault equation) are based ondifferent parameters and may not yield comparable results.If eCrCl result is absurd, please check patient'sheight/weight. Estimated Glomerular Filt Rate >60 [facility] Comment:Chronic Kidney Disea se: Estimated GFR < 60 mL/min/1.66m5Bmuzsv Kidney Disease: Estimated GFR < 15 mL/min/1.73m2 Glucose 139(H) 60 - 115 mg/dL [facility] Calcium 9.0 8.4 - 10.2 mg/dL [facility] 07/05/2025 3:10 PM EST 07/05/2025 3:28 PM EST us Generic External Data Provider LAB BLOOD ORDERAB LES Final Result Performing Organization Address [facility]/ZIP Co de Phone Number [facility] [address] [place] [phone] * (ABNORMAL) Hepatic Function Panel (07/05/2025 3:10 PM EST) Pathologist [facility] Bilirubin, Total 1.3(H) 0.0 - 1.0 mg/dL [facility] Bilirubin, Direct 0.5 0.0 - 0.5 mg/dL [facility] Aspartate Amino Transferase 23 5 - 37 U/L [facility] Alanine Aminotransferase 20 0 - 40 U/L [facility] Total Protein 7.2 6.5 - 8.0 g/dL [facility] Albumin Level 4.8 3.5 - 5.0 g/dL [facility] Alkaline Phosphatase 47 39 - 117 U/L [facility] 07/05/2025 3:10 PM EST 07/05/2025 3:28 PM EST us Generic External Data Provider LAB BLOOD ORDERAB LES Final Result Performing Organization Address City/State/[facility] Co de Phone Number [facility] [address] [place] [phone] * (ABNORMAL) CBC auto differential (07/05/2025 3:10 PM EST) [facility] White Blood Count 7.5 4.8 - 10.8 X10*3/uL [facility] Red Blood Count 4.47(L) 4.60 - 5.80 X10*6/uL [facility] Hemoglobin 14.5 14.0 - 18.0 g/dl [facility] Hematocrit 43.0 42.0 - 52.0 % [facility] Mean Corpuscular Volume 96.2 80.0 - 98.0 fL [facility] Mean Corpuscular Hemoglobin 32.4 27.0 - 33.0 pg [facility] Mean Corpuscular HGB Conc 33.7 31.0 - 36.0 g/dl [facility] Red Cell Distribution Width 11.9 11.0 - 16.0 % [facility] Platelet Count 203 160 - 400 X10*3/uL [facility] Mean Platelet Volume 10.5 9.4 - 12.4 fL [facility] Neutrophils Percent Auto 79.4(H) 45 - 73 % [facility] Imm Gran Pct Auto 0.3 0.0 - 0.4 % [facility] Lymphocytes Percent Auto 14.6(L) 20 - 40 % [facility] Monocytes Percent Auto 4.7 2 - 11 % [facility] Eosinophils Percent Auto 0.7 0 - 4 % [facility] Basophils Percent Auto 0.3 0 - 2 % [facility] NRBC Pct Auto 0.0 0.0 - 0.2 /100WBC [facility] Neutrophils Absolute Auto 6.0 2.0 - 8.3 x10*3/uL [facility] Imm Gran Abs Auto 0.02 0.00 - 0.03 X10*3/uL [facility] Lymphocytes Absolute Auto 1.1(L) 1.2 - 4.9 X10*3/uL [facility] Monocytes Absolute Auto 0.4 0.1 - 1.2 X10*3/uL [facility] Eosinophils Absolute Auto 0.1 0.0 - 0.4 X10*3/uL [facility] Basophils Absolute Auto 0.0 0.0 - 0.2 X10*3/uL [facility] NRBC Abs Auto 0.000 0.0 - 0.012 X10*3/uL [facility] 07/05/2025 3:10 PM EST 07/05/2025 3:28 PM EST us Generic External Data Provider LAB BLOOD ORDERAB LES Final Result [facility] [address] [place] [phone] documented in this encounter Visit Diagnoses Not on filedocumented in this encounter Additional Health Concerns Assessment Noted Time PHQ-9 Depression Total Score: 8 06/17/20 25 11:48 AM EDT documented as of this encounter Care Teams Mechanical Engineering Lecturer Relationship Specialty Start Date End Date Haily Robb FNP [address] [place] [address] PCP - General Family Medicine 05/01/22 Gregoria Brooks RN [address] [place] [address] Registered Nurse Family Medicine 06/15/25 Latricia Houser 06/16/25 documented as of this encounter
--- OUTSIDE RECORDS SUMMARY | 2025-07-09 13:51 | XMS_ITS | Encounter Summary ---
Author Organization [employer] Address [address] [facility] [address] [place] [address] Care Team Providers Care World History Teacher Name Role Phone Clarisse Haily [facility] Primary Care Provider Gregoria Brooks RN Unavailable [phone] Latricia Houser Unavailable Reason for Visit * Reason Onset Date Comments Care Coordination 07/07/2025 Encounter Details Date Type Department Care Team (Late st Contact Info) Description 07/07/2025 Telephone [facility] [address] [place], [place] [phone] MallardHaily FNP [address] [place], [place] [phone] Care Coordination Social History Tobacco Use Types [...] Progress Notes * Gregoria Brooks RN - 07/07/2025 9:40 AM EST CM Gregoria Brooks RN received incoming call from patient this morning regarding needing appointmentdetails for upcoming MRI appointment. Patient given information and partner also confirmed information to write down on home calendar. Patient advised that this CM also has an appointment reminder task to call patient the day before the upcoming appointment. Patient verbalized understanding. Patient will also be calling MH to change address to current address. Then to provide an alternate address for PT-1 services. documented in this encounter Plan of Treatment [...] documented as of this encounter Care Teams World History Teacher Relationship Specialty Start Date End Date MallardHaily FNP [address] [place] [address] PCP - General Family Medicine 05/01/22 Gregoria Brooks, CHAGO [address] [place] [address] Registered Nurse Family Medicine 06/15/25 Latricia Houser 06/16/25 documented as of this encounter
--- OUTSIDE RECORDS SUMMARY | 2025-07-09 13:51 | XMS_ITS | Encounter Summary ---
Author Organization [employer] Address [address] [facility] [address]t [place] [address] Care Team Providers Care Head Of Cytogenetics Name Role Phone [place], [facility] Primary Care Provider Gregoria Brooks RN Unavailable [phone] Latricia Houser Unavailable Encounter Details Date Type Department Care Team (Late st Contact Info) Description 06/04/2025 Telephone [facility] [address] [place], [place] [phone] [place], [facility] [address] [place], [place] [phone] Social History Tobacco Use Types Packs/Day Years [...] as of this encounter Care Teams Head Of Cytogenetics Relationship Specialty Start Date End Date Haily Robb FNP [address] [place] [address] PCP - General Family Medicine 05/01/22 Gregoria Brooks RN [address] [place] [address] Registered Nurse Family Medicine 06/15/25 Latricia Houser 06/16/25 documented as of this encounter
--- OUTSIDE RECORDS SUMMARY | 2025-07-09 13:51 | XMS_ITS | Encounter Summary ---
Author Organization [employer] Address [address] [facility] [address] [place] [address] Care Team Providers Care Soda Drier Feeder Name Role Phone [facility] Primary Care Provider Gregoria Brooks RN Unavailable [phone] Latricia Houser Unavailable Reason for Visit * Reason Comments Med Refill Encounter Details Date Type Department Care Team (Late st Contact Info) Description 06/03/2025 Refill [facility] [address] [place], [place] [phone] [facility] [address] [place], [place] [phone] Restless leg Social History Tobacco Use Types [...] documented as of this encounter Care Teams Soda Drier Feeder Relationship Specialty Start Date End Date Haily Robb FNP [address] [place] [address] PCP - General Family Medicine 05/01/22 Gregoria Brooks RN [address] [place] [address] Registered Nurse Family Medicine 06/15/25 Latricia Houser 06/16/25 documented as of this encounter
--- OUTSIDE RECORDS SUMMARY | 2025-07-09 13:51 | XMS_ITS | Encounter Summary ---
Author Organization [employer] Address [address] [place] [address] Care Team Providers Care Local Government Legislator Name Role Phone Haily Robb [employer] Primary Care Provider [phone] Gregoria Brooks RN Unavailable [phone] Latricia Houser Unavailable Encounter Details Date Type Department Care Team (Late st Contact Info) Description 07/09/2025 Orders Only [facility] External Provider, [facility] Social History Tobacco Use Types Packs/Day Years [...] Procedure Name Priority Date/Time Associated Diagnosis Comments INFLUENZA A B2 ID NOW ([email or web address]) Routine 07/09/2025 12:11 PM EST COVID-19 ID NOW ([email or web address]) Routine 07/09/2025 12:11 PM EST HIGH SENSITIVITY TROPONIN I Routine 07/09/2025 12:11 PM EST NT-PROBNP Routine 07/09/2025 12:11 PM EST CBC WITH AUTO DIFFERENTIAL Routine 07/09/2025 12:11 PM EST PROTHROMBIN TIME-INR Routine 07/09/2025 12:11 PM EST COMPREHENSIVE METABOLIC PANEL Routine 07/09/2025 12:11 PM EST XR CHEST 2 VIEWS Routine 07/09/2025 11:5 2 AM EST URINALYSIS, COMPLETE Routine 07/09/2025 11:30 AM EST documented in this encounter Results * NT-proBNP (07/09/2025 12:11 PM EST) NT-proBNP <15.8 <300 pg/mL [facility] Comment:Reference Range:Age Group (years) NT-proBNP (pg/ml) InterpretationAll <300 Negative: HF unlikelyFor patients presenting to the ED with clinical suspicion ofnew onset or worsening HF, see below:18 to <50 >299.9 to <450.0 Grayzone: Afrlleyc01 to 75 >299.9 to <900.0 other causes of>75 >299.9 to <1800.0 NT-proBNP [id number] to <50 >449.9 Positive: HF -42 >899.9>75 >1799.9Note: Elevated NT-proBNP levels should be interpreted inthe context of other clinical information. 07/09/2025 12:1 1 PM EST 07/09/2025 12:15 PM EST us Generic External Data Provider LAB BLOOD ORDERAB LES Final Result [facility] [address] [place] [phone] * High Sensitivity Troponin I (07/09/2025 12:11 PM EST) TROPONIN I HIGH SENSITIVITY <2.7 <3.5 - 35.0 ng/L [facility] Comment:The Lemon high sens itivity Troponin-I results should beused in conjunction with other diagnostic information suchas ECG, clinical observations and information, and patientsymptoms to aid in the diagnosis of IA. 07/09/2025 12:1 1 PM EST 07/09/2025 12:15 PM EST us Generic External Data Provider LAB BLOOD ORDERAB LES Final Result [facility] [address] [place] [address] [phone] * (ABNORMAL) Comprehensive Metabolic Panel (07/09/2025 12:11 PM EST) Sodium 139 135 - 145 mmol/L [facility] Potassium 4.4 3.3 - 5.1 mmol/L [facility] Comment:Slight Hemolysis.Int erpret result with caution. Chloride 103 96 - 108 mmol/L [facility] Carbon Dioxide 28 22 - 29 mmol/L [facility] Anion Gap 12 12 - 20 [facility] Urea Nitrogen (BUN) 16 9 - 16 mg/dL [facility] Creatinine, Serum 1.00 0.5 - 1.4 mg/dL [facility] Creatinine Clr Calc Pharmacy 68.5 [facility] Comment:eGFR (calculated fro m the MDRD study equation) and eCrCl(calculated from the Cockcroft-Gault equation) are based ondifferent parameters and may not yield comparable results.If eCrCl result is absurd, please check patient'sheight/weight. Estimated Glomerular Filt Rate >60 [facility] Comment:Chronic Kidney Disea se: Estimated GFR < 60 mL/min/1.26u0Xejfsp Kidney Disease: Estimated GFR < 15 mL/min/1.73m2 Glucose 108 60 - 115 mg/dL [facility] Calcium 9.1 8.4 - 10.2 mg/dL [facility] Bilirubin, Total 1.1(H) 0.0 - 1.0 mg/dL [facility] Aspartate Amino Transferase 35 5 - 37 U/L [facility] Comment:Slight Hemolysis.Int erpret result with caution. Alanine Aminotransferase 21 0 - 40 U/L [facility] Total Protein 7.4 6.5 - 8.0 g/dL [facility] Albumin Level 4.8 3.5 - 5.0 g/dL [facility] Alkaline Phosphatase 40 39 - 117 U/L [facility] 07/09/2025 12:1 1 PM EST 07/09/2025 12:15 PM EST us Generic External Data Provider LAB BLOOD ORDERAB LES Final Result [facility] [address] [place] [address] [phone] * COVID-19 ID NOW (LEMON) (07/09/2025 12:11 PM EST) IDNOW SERIAL# [id number] [facility] COVID-19 TEST Negative Negative [facility] COVID-19 NOTE See Note [facility] Comment: Results are for the identification of SARS-CoV2 RNA. TheSARS-CoV2 RNA is generally detectable in respiratory samplesduring the acute phase of infection. Positive results areindicative of the presence of SARS-CoV-2 RNA; clinicalcorrelation with patient history and other diagnosticinformation is necessary to determine patient infectionstatus. Positive results do not rule out bacterial infectionor co- infection with other viruses.Testing facilities within the [facility] and [facility] are required to report all [...] use by authorized laboratories.Testing performed on the [employer] ID NOW utilizing NAAT. 07/09/2025 12:1 1 PM EST 07/09/2025 12:15 PM EST Generic External Data Provider LAB MOLECULAR KATIUSKA GNOSTICS ORDERABLES Final Result Performing Organization Address City/[facility]/ZIP Co de Phone Number [facility] [address] [place] [phone] * Influenza A B2 ID NOW (Lemon) (07/09/2025 12:11 PM EST) IDNOW SERIAL# [id number] [facility] Influenza A Negative Negative [facility] Influenza B2 Negative Negative [facility] Influenza A B2 Note See Note [facility] Comment:The Lemon ID NOW In fluenza [...] GENERAL ORDERABLES Final Result Performing Organization Address [facility] Co de Phone Number [facility] [address] [place] [phone] * Prothrombin Time-INR (07/09/2025 12:11 PM EST) Prothrombin Time 12.0 11.2 - 13.5 SEC [facility] INTERNATIONAL NORM RATIO 1.0 0.9 - 1.1 [facility] Comment:INTERNATIONAL NORMAL IZED RATIO (INR) REFERENCE [...] Provider LAB BLOOD ORDERAB LES Final Result [facility] [address] [place] [address] [phone] * (ABNORMAL) CBC auto differential (07/09/2025 12:11 PM EST) White Blood Count 4.7(L) 4.8 - 10.8 X10*3/uL [facility] Red Blood Count 4.50(L) 4.60 - 5.80 X10*6/uL [facility] Hemoglobin 14.6 14.0 - 18.0 g/dl [facility] Hematocrit 43.8 42.0 - 52.0 % [facility] Mean Corpuscular Volume 97.3 80.0 - 98.0 fL [facility] Mean Corpuscular Hemoglobin 32.4 27.0 - 33.0 pg [facility] Mean Corpuscular HGB Conc 33.3 31.0 - 36.0 g/dl [facility] Red Cell Distribution Width 11.9 11.0 - 16.0 % [facility] Platelet Count 195 160 - 400 X10*3/uL [facility] Mean Platelet Volume 10.3 9.4 - 12.4 fL [facility] Neutrophils Percent Auto 63.3 45 - 73 % [facility] Imm Gran Pct Auto 0.2 0.0 - 0.4 % [facility] Lymphocytes Percent Auto 27.0 20 - 40 % [facility] Monocytes Percent Auto 7.5 2 - 11 % [facility] Eosinophils Percent Auto 1.1 0 - 4 % [facility] Basophils Percent Auto 0.9 0 - 2 % [facility] NRBC Pct Auto 0.0 0.0 - 0.2 /100WBC [facility] Neutrophils Absolute Auto 3.0 2.0 - 8.3 x10*3/uL [facility] Imm Gran Abs Auto 0.01 0.00 - 0.03 X10*3/uL [facility] Lymphocytes Absolute Auto 1.3 1.2 - 4.9 X10*3/uL [facility] Monocytes Absolute Auto 0.4 0.1 - 1.2 X10*3/uL [facility] Eosinophils Absolute Auto 0.1 0.0 - 0.4 X10*3/uL [facility] Basophils Absolute Auto 0.0 0.0 - 0.2 X10*3/uL [facility] NRBC Abs Auto 0.000 0.0 - 0.012 X10*3/uL [facility] 07/09/2025 12:1 1 PM EST 07/09/2025 12:15 PM EST us Generic External Data Provider LAB BLOOD ORDERAB LES Final Result Performing Organization Address City/State/[facility] Co de Phone Number [facility] [address] [place] [phone] * XR Chest 2 Views (07/09/2025 11:52 AM EST) Anatomical Region Laterality Modality Chest Radiographic Cecelia ging 07/09/2025 11:5 2 AM EST Narrative 07/09/2025 12:14 PM EST [address] [address] XRay Report Signed Patient: John Fitzpatrick MR#: [id number] : 1970 Acct:[id number] Age/Sex: 55 / M ADM Date: 07/09/25 Loc: .ED Attending Dr: Ordering Physician: Tammy Gamez Date of Service: 07/09/25 Procedure(s): XR chest 2V Accession Number(s): [id number] cc: Tammy Gamez; [facility] Reason for Exam: chest pain EXAMINATION: XR [...] 07/09/25 1211 DD/ 1152 TD/TT: 07/09/25 1207 [place] Program Coordinator: Procedure Note Donotuseinterpreter, Image - 07/09/[address] [address] XRay Report Signed Patient: John Fitzpatrick AMR#: [id number] : 1970Acct:[id number] Age/Sex: 55 / MADM Date: 07/09/25 Loc: .ED Attending Dr: Ordering Physician: Tammy Gamez Date of Service: 07/09/25 Procedure(s): XR chest 2V Accession Number(s): [id number] cc: Tammy Gamez; [facility] Reason for Exam: chest pain EXAMINATION: XR [...] 07/09/25 1211 DD/ 1152 TD/TT: 07/09/25 1207 [place] Program Coordinator: us [facility] External Provider IMG XR PROCEDURES Final Result * (ABNORMAL) Urinalysis Complete (07/09/2025 11:30 AM EST) Color Urine Yellow [facility] Appearance Urine Clear [facility] PH 7.0 5.0 - 9.0 [facility] Glucose Urine UA Negative Negative mg/dL [facility] Urine Blood Negative Negative [facility] Specific [place] - Urine >=1.030(H) 1.005 - 1.025 [facility] Urine Protein Trace Neg-Trace mg/dL [facility] Urine Ketones Trace Negative mg/dL [facility] Nitrite Urine Negative Negative [facility] Leukocyte Esterase Urine Negative Negative [facility] RBC Urine 0-2 0 - 2 /HPF [facility] Urine WBC 0-5 0 - 5 /HPF [facility] Urine Squamous Epithelial Cell 0-2 0 - 2 /HPF [facility] CALCIUM OXALATE CRYSTAL, UR Present [facility] Urine Bacteria None Seen None Seen [facility] Hyaline Casts, Urine 0-2 0 - 2 /LPF [facility] 07/09/2025 11:3 0 AM EST 07/09/2025 12:25 PM EST us Generic External Data Provider LAB URINE ORDERAB LES Final Result Performing Organization Address City/State/[facility] Co de Phone Number [facility] [address] [place] [phone] documented in this encounter Visit Diagnoses Not on filedocumented in this encounter Additional Health Concerns Assessment Noted Time PHQ-9 Depression Total Score: 8 06/17/20 25 11:48 AM EDT documented as of this encounter Care Teams Local Government Legislator Relationship Specialty Start Date End Date Haily Robb FNP [address] [place] [address] PCP - General Family Medicine 05/01/22 Gregoria Brooks RN [address] [place] [address] Registered Nurse Family Medicine 06/15/25 Latricia Houser 06/16/25 documented as of this encounter
--- OUTSIDE RECORDS SUMMARY | 2025-07-09 13:51 | XMS_ITS | Encounter Summary ---
Author Organization [employer] Address [address] [place] [address] Care Team Providers Care Analysis Reporting Developer Name Role Phone [place] [facility] Primary Care Provider [phone] Gregoria Brooks RN Unavailable [phone] Latricia Houser Unavailable Reason for Visit * Reason Comments Care Management Encounter Details Date Type Department Care Team (Late st Contact Info) Description 07/06/2025 Patient Outreach [facility] [address] [place], [place] [phone] [facility] [address] [place] [address] Care Management Social History Tobacco Use Types Packs/Day Years [...] Progress Notes * Gregoria Brooks RN - 07/06/2025 10:49 AM EST CM Gregoria Brooks RN received incoming call from patient. Patient was calling to update CM on recent ER visit. Patient's name, and address confirmed. . Patient seen at [facility] ER on 07/05/25 for CHEST PAIN, elevated BLOOD PRESSURE and back pain. Testing all normal. Patient states also seen at [facility] on 07/02/25 for URI symptoms. Given zpak and Fioricet. Patient picked up these meds and started with good effect. Patient inquiring about transportation PATIENT-1. CM discussed with JENNA Rome. States that patient has a different listed address with . Patient will need to update [facility] [employer] with current mailing address to ensure updated in system. Once updated can call CHW to provide alternate pick remover address to use as needed. Patient agrees. Patient advised tocomplete antibiotics prescribed at ER. Return call if symptoms do not improve. No further questions or concerns. CM reinforced direct contact information or CHW for any additional questions or concerns. Education provided on [facility]-In Urgent Care located in [facility] of [facility]. Patient provided with after-hours line for [facility], , which offer night time triage service and option to transfer to data migration lead provider if needed. Patient verbalizes understanding, and able to repeat back to proposal manager writer. A follow up call will be [...] documented as of this encounter Care Teams Analysis Reporting Developer Relationship Specialty Start Date End Date [facility] [address] [place] [address] PCP - General Family Medicine 05/01/22 Gregoria Brooks RN [address] [place] [address] Registered Nurse Family Medicine 06/15/25 Latricia Houser 06/16/25 documented as of this encounter
--- OUTSIDE RECORDS SUMMARY | 2025-07-09 13:51 | XMS_ITS | Encounter Summary ---
Author Organization [employer] Address [address] [facility] [address] [place] [address] Care Team Providers Care Placement Secretary Name Role Phone Clarisse Haily DIRECTOR REPORT Primary Care Provider [phone] Gregoria Brooks RN Unavailable [phone] Latricia Houser Unavailable Encounter Details Date Type Department Care Team (Latest Contact Info) Description 07/09/2025 Travel Social History Tobacco Use Types Packs/Day [...] documented as of this encounter Care Teams Placement Secretary Relationship Specialty Start Date End Date Haily Robb FNP [address] [place] [phone] PCP - General Family Medicine 05/01/22 Gregoria Brooks, CHAGO [address] [place] [phone] Registered Nurse Family Medicine 06/15/25 Latricia Houser 06/16/25 documented as of this encounter
--- OUTSIDE RECORDS SUMMARY | 2025-07-09 13:51 | XMS_ITS | Encounter Summary ---
Author Organization [employer] Address [address] [place] [address] Care Team Providers Care Car Sales Associate Name Role Phone [place] [facility] Primary Care Provider Gregoria Brooks RN Unavailable [phone] Latricia Houser Unavailable Reason for Visit * Reason Comments Med Refill Encounter Details Date Type Department Care Team (Late st Contact Info) Description 05/31/2025 Refill [facility] [address] [place], [place] [phone] [place] [facility] [address] [place], [place] [phone] Restless leg Social History Tobacco Use Types [...] as of this encounter Care Teams Car Sales Associate Relationship Specialty Start Date End Date Haily Robb FNP [address] [place] [phone] PCP - General Family Medicine 05/01/22 Gregoria Brooks RN [address] [place] [address] Registered Nurse Family Medicine 06/15/25 Latricia Houser 06/16/25 documented as of this encounter
--- OUTSIDE RECORDS SUMMARY | 2025-07-09 13:51 | XMS_ITS | Encounter Summary ---
Author Organization [employer] Address [address] [facility] 7t [place] [address] Care Team Providers Care Intake Clinician Name Role Phone Haily Robb [facility] Primary Care Provider Gregoria Brooks RN Unavailable [phone] Latricia Houser Unavailable Reason for Visit * Reason Onset Date Comments Results 02/26/2025 Encounter Details Date Type Department Care Team (Late st Contact Info) Description 02/26/2025 Telephone [facility] [address] [place], [place] [phone] ClarisseHaily [facility] [address] [place], [place] [phone] Results Social History Tobacco Use Types Packs/Day [...] back regarding prior message. Contact pt at [phone] * Telephone Encounter - Claudette Ashley - 02/26/2025 12:59 PM EDT TC from pt requesting call back regarding Results. Type of results: Lab Date when done: 02/25/25 Facility: [facility] Contact pt at [phone] (danish) documented in this encounter Plan of Treatment [...] documented as of this encounter Care Teams Intake Clinician Relationship Specialty Start Date End Date Haily Robb FNP [address] [place] [address] PCP - General Family Medicine 05/01/22 Gregoria Brooks RN [address] [place] [address] Registered Nurse Family Medicine 06/15/25 Latricia Houser 06/16/25 documented as of this encounter
--- OUTSIDE RECORDS SUMMARY | 2025-07-09 13:51 | XMS_ITS | Encounter Summary ---
Author Organization [employer] Address [address] [place] [address] Care Team Providers Care Ball Thread Machine Tender Name Role Phone [place], [facility] Primary Care Provider [phone] Gregoria Brooks RN Unavailable [phone] Latricia Houser Unavailable Reason for Visit * Reason Onset Date Comments Results 07/06/2025 Encounter Details Date Type Department Care Team (Late st Contact Info) Description 07/06/2025 Results Follow-Up [facility] [address] [place], [place] [phone] Clarisse [facility] [address] [place] [address] US Abdomen Complete Social History Tobacco Use Types Packs/Day Years [...] encounter Miscellaneous Notes * Telephone Encounter - Rosario Blackburn RN - 07/07/2025 1:08 PM EST TC placed to patient [phone] using [facility] #[place] [id number] regarding below message. RN informed patent of his ultrasound was negative. Patient c/o my liver is inflamed . Patient requesting an appointmentwith an provider. RN scheduled an appointment. Patient verbalized understanding. PT to F/U PRN. ----- Message from [facility] sent at 07/06/2025 2:49 PM EST ----- Please let patient know ultrasound negative. Thank you ----- Message ----- From: Interface, Ris Results In Sent: 07/03/2025 9:14 PM EST To: ANETA Poole documented in this encounter Plan of Treatment [...] as of this encounter Care Teams Ball Thread Machine Tender Relationship Specialty Start Date End Date Haily Robb FNP [address] [place] [address] PCP - General Family Medicine 05/01/22 Gregoria Brooks, [place] [address] [place] [address] Registered Nurse Family Medicine 06/15/25 Latricia Houser 06/16/25 documented as of this encounter
--- OUTSIDE RECORDS SUMMARY | 2025-07-09 13:51 | XMS_ITS | Encounter Summary ---
Author Organization [employer] Address [address] [place] [address] Care Team Providers Care Operations Advisor Name Role Phone Clarisse [facility] Primary Care Provider Gregoria Brooks RN Unavailable [phone] Latricia Houser Unavailable Reason for Visit * Reason Comments Med Refill Encounter Details Date Type Department Care Team (Late st Contact Info) Description 06/03/2025 Refill [facility] [address] [place], [place] [phone] [place] Haily [facility] [address] [place], [place] [phone] Epigastric pain Social History Tobacco Use Types [...] documented as of this encounter Care Teams Operations Advisor Relationship Specialty Start Date End Date Haily Robb FNP [address] [place] [phone] PCP - General Family Medicine 05/01/22 Gregoria Brooks RN [address] [place] [address] Registered Nurse Family Medicine 06/15/25 Latricia Houser 06/16/25 documented as of this encounter
[2025-07-10 04:07] LABS: CT PCR Urine NOT DETECTED (Not Detect.); NG PCR Urine NOT DETECTED (Not Detect.)
== END 2025-07-09 11:08 | disposition home or self-care (01) ==
LOC: HO.LAB 11:07
PROVIDERS: PCP Registered Nurse; Visit Provider Urology
DX: Z20.2 Contact with and (suspected) exposure to infections with a predominantly sexual mode of transmission (principal); N40.0 Benign prostatic hyperplasia without lower urinary tract symptoms; Z87.440 Personal history of urinary (tract) infections
CPT/HCPCS: 81001; 87086; 87491; 87591

== ENCOUNTER 2025-07-09 11:38 | Emergency (ER) | payer MEDICAID, SELFPAY ==
--- NOTE | 2025-07-09 | ECG_ITS ---
Test Reason : cp Blood Pressure : */* mmHG Vent. Rate : 74 BPM Atrial Rate : 74 BPM P-R Int : 130 ms QRS Dur : 74 ms QT Int : 360 ms P-R-T Axes : 49 49 27 degrees QTcB Int : 399 ms Normal sinus rhythm Normal ECG When compared with ECG of 02-Jul-2025 10:11, Nonspecific T wave abnormality, improved in Lateral leads Referred By: Generic ED Physician Electronically Signed By: Francis Penny
--- NOTE | ~2025-07-09 | XR_ITS ---
EXAMINATION: XR CHEST CLINICAL INFORMATION: chest pain COMPARISON: July 02, 2025 TECHNIQUE: 2 views of the chest were obtained. FINDINGS: Again seen are mildly coarse interstitial markings. Lungs are clear otherwise. Heart size is within normal limits. There is no pleural effusion. No pneumothorax is identified. XR/XR chest 2V IMPRESSION: No acute disease, stable chest x-ray Electronically signed by: Finesse Witt MD 07/09/2025 12:11 PM [facility]
[2025-07-09 11:51] VITALS: BP 115/63; PULSE 70; RESP 18; TEMP 36.8; O2SAT 99; BMI 19.9
--- NOTE | 2025-07-09 11:51 | ED.GENADULT ---
HPI - General Adult General Chief complaint: Chest Pain Stated complaint: chest pressure, sob Time Seen by Provider: 07/09/25 13:22 Source: patient Mode of arrival: ambulatory Limitations: language barrier History of Present Illness ED Provider: Dr. Bell HPI narrative: This is a 55-year-old male history of tuberculosis which was treated in the past presented hospital today for evaluation of chest pain. Patient has been complaining of shortness of breath for the past 3 days. He is also complaining of veins popping out of his temporal area. The patient is also complaining of pain in his bilateral flanks. It is also complaining of nasal congestion and sore throat. And subjective fever. Related Data Home Medications ?Medication ?Instructions ?Recorded ?Confirmed cholecalciferol (vitamin D3) 50 50 mcg PO DAILY 06/30/20 06/22/25 mcg (2,000 unit) capsule (Vitamin D3) melatonin 5 mg tablet 5 - 10 mg PO BEDTIME PRN 01/12/23 06/22/25 methadone 40 mg soluble tablet 29 mg PO DAILY 02/28/25 06/22/25 pantoprazole 40 mg tablet,delayed 40 mg PO DAILY 04/10/25 06/22/25 release fluvoxamine 25 mg tablet 25 mg PO BEDTIME 06/22/25 06/22/25 polyethylene glycol 3350 17 gram 17 g PO DAILY 06/22/25 06/22/25 oral powder packet Previous Rx's ?Medication ?Instructions ?Recorded syringe (disposable) 3 mL (BD #25 ea 11/27/24 Luer-Vira Syringe) ibuprofen 400 mg tablet 400 mg PO Q6H PRN pain #14 tabs 12/12/24 docusate sodium 100 mg capsule 100 mg PO BEDTIME PRN constipation 02/27/25 #90 caps famotidine 20 mg tablet 20 mg PO DAILY PRN GERD #90 tabs 02/27/25 sucralfate 1 gram tablet 1 g PO TID PRN Epigastric 04/05/25 discomfort, gastritis #60 tabs tamsulosin 0.4 mg capsule 0.4 mg PO BEDTIME 90 days #90 caps 04/07/25 testosterone cypionate 200 mg/mL 200 mg IM Q2W 28 days #2 mL 04/07/25 intramuscular oil bisacodyl 5 mg tablet,delayed 20 mg (4 x 5 mg) PO ONCE 1 day #4 04/10/25 release (Dulcolax (bisacodyl)) tabs polyethylene glycol 3350 17 238 g PO ONCE #238 grams 04/10/25 gram/dose oral powder (Miralax) needle (disp) 22 G 22 gauge x 1 #30 ea 04/21/25 needle (disp) 18 G 18 gauge x 1 #30 ea 04/23/25 (BD Regular Bevel [place]) cyclobenzaprine 5 mg tablet 5 mg PO TID PRN muscle spasm 5 04/29/25 days #20 tabs prednisone 20 mg tablet 40 mg (2 x 20 mg) PO DAILY 5 days 04/29/25 #10 tabs docusate calcium 240 mg capsule 240 mg PO DAILY #30 caps 06/13/25 polyethylene glycol 3350 17 17 g PO DAILY #119 grams 06/13/25 gram/dose oral powder (Miralax) acetaminophen 500 mg tablet 1,000 mg (2 x 500 mg) PO Q8H 10 07/02/25 (Tylenol Extra Strength) days #60 tabs azithromycin 250 mg tablet See Rx Instructions PO .COMPLEX #6 07/02/25 tabs ufrpuilfgb-kpsnspiitcflv-oxsmczxg 1 cap PO DAILY PRN pain #10 caps 07/02/25 50 mg-325 mg-40 mg capsule acetaminophen 500 mg tablet 1,000 mg (2 x 500 mg) PO Q8H 7 07/09/25 (Tylenol Extra Strength) days #14 tabs fluticasone propionate 50 1 spray intranasal BID #16 grams 07/09/25 mcg/actuation nasal spray,suspension (Flonase Allergy Relief) ibuprofen 400 mg tablet 400 mg PO Q8H 5 days #15 tabs 07/09/25 Allergies Allergy/AdvReac Type Severity Reaction Status Date / Time SEAFOOD Allergy Severe ANAPHYLAXIS Uncoded 07/09/25 11:53 shellfish Allergy Severe Anaphylaxis Uncoded 07/09/25 11:53 Review of Systems Review of Systems: Pertinent review of systems as mentioned in HPI. All other system otherwise negative. [facility] Past Medical History [facility] Narrative: Tuberculosis Medical History Constipation Anemia Hx of substance abuse Smoker History of Helicobacter pylori infection Spinal pain Hypogonadism Erectile dysfunction Hx: UTI (urinary tract infection) BPH (benign prostatic hyperplasia) Hx of hepatitis C GERD (gastroesophageal reflux disease) Anxiety and depression HTN (hypertension) Murmur Surgical History Hx of cystoscopy Family History Family History Mother Diabetes Social History Social History Alcohol intake: former Patient Tobacco Use Status: Current everyday Tobacco user Substance Use Type: Crack/Cocaine and Heroin Advance Directives: No Advance Directives Information Provided: Yes Do you have a plan to hurt others: No Plan Current occupational status: unemployed Physical Exam ED Exam Exam: General: Pleasant, no distress, interacting appropriately Head: Normacephalic, atraumatic ENT: oral mucosa moist, neck supple, no tracheal deviation, + nasal congestion present Cardiovascular: regular rate, regular rhythm, no murmurs, rubbing, gallops Respiratory: CTAB, no wheeze, rales, rhonchi Gastrointestinal: Soft, non distended, non tender, non guarding, bilateral flank pain Extremities: No limb pain or swelling, no calf tenderness Neurological: Awake and alert, no facial droop noted Skin: Warm and dry Psychiatric: Appropriate mood and thoughts Vital Signs: Vital Signs - 24 hr 07/09/25 11:51 Temperature 98.3 F Pulse Rate 70 Respiratory Rate 18 Blood Pressure 115/63 Pulse Oximetry 99 Oxygen Delivery Method Room Air BMI result Body Mass Index 19.9 Course Course Course Narrative: Rapid medical examination performed in triage by Tammy Gamez PA-C: Patient is a 55 year old assigned male at presenting to the emergency department with chest pressure. Detailed physical exam and review of systems are deferred to the certified coding specialist. EKG, labs, imaging, and swabs ordered. Patient placed back in the waiting room pending room availability and results. Medical Decision Making Medical Decision Making MDM Narrative: This is a 55-year-old male presented hospital today for evaluation of chest pain multiple symptoms of headaches, flank pain, body aches. Patient has been in the ER multiple times for these symptoms at this time. I have high suspicion of an upper respiratory infection. He does appear to have nasal congestion. I suspect he likely has body aches associated with this. ACS workup was performed EKG did not show any signs of STEMI. Troponin is not elevated. He does have history of tuberculosis which was treated in the past. Chest x-ray did not show any signs of cavitary lesions. Given his symptoms of nasal congestion sore throat I do not think this is tuberculosis. COVID and flu swab is negative. Encouraged him to follow up with his primary care doctor for further investigation. I discussed with him that it will be difficult for us to find exactly what is going on with him at this time. Our job is to rule out any acute emergencies here in the ER. I do not think patient has have anything life-threatening on the time of examination. He appears to be well does not appear to be tachypneic does not appear to be short of breath. Conversation well. No hemoptysis Differential Diagnosis Differential Diagnoses: The differential diagnosis associated with the presentation includes URI, viral illness, body aches, pneumonia, Lab Data MDM Lab Attestation statement: I reviewed the patient's lab results. 07/09/25 12:11 07/09/25 12:11 Labs: Lab Results 07/09/25 Range/Units 12:11 WBC 4.7 L (4.8-10.8) X10*3/uL RBC 4.50 L (4.60-5.80) X10*6/uL Hgb 14.6 (14.0-18.0) g/dl Hct 43.8 (42.0-52.0) % MCV 97.3 (80.0-98.0) fL MCH 32.4 (27.0-33.0) pg MCHC 33.3 (31.0-36.0) g/dl RDW 11.9 (11.0-16.0) % Plt Count 195 (160-400) X10*3/uL MPV 10.3 (9.4-12.4) fL Immature Gran % (Auto) 0.2 (0.0-0.4) % Neut % (Auto) 63.3 (45-73) % Lymph % (Auto) 27.0 (20-40) % Eaton % (Auto) 7.5 (2-11) % Eos % (Auto) 1.1 (0-4) % Baso % (Auto) 0.9 (0-2) % Lymph # (Auto) 1.3 (1.2-4.9) X10*3/uL Eaton # (Auto) 0.4 (0.1-1.2) X10*3/uL Eos # (Auto) 0.1 (0.0-0.4) X10*3/uL Baso # (Auto) 0.0 (0.0-0.2) X10*3/uL Abs Immat Gran (auto) 0.01 (0.00-0.03) X10*3/uL Absolute Neuts (auto) 3.0 (2.0-8.3) x10*3/uL Absolute Nucleated RBC 0.000 (0.0-0.012) X10*3/uL Nucleated RBC % (auto) 0.0 (0.0-0.2) /100WBC PT 12.0 (11.2-13.5) SEC INR 1.0 (0.9-1.1) Sodium 139 (135-145) mmol/L Potassium 4.4 D (3.3-5.1) mmol/L Chloride 103 (96-108) mmol/L Carbon Dioxide 28 (22-29) mmol/L Anion Gap 12 (12-20) BUN 16 (9-16) mg/dL Creatinine 1.00 (0.5-1.4) mg/dL Estim Creat Clear Calc 68.5 Estimated GFR > 60 Random Glucose 108 (60-115) mg/dL Calcium 9.1 (8.4-10.2) mg/dL Total Bilirubin 1.1 H (0.0-1.0) mg/dL AST 35 (5-37) U/L ALT 21 (0-40) U/L Alkaline Phosphatase 40 (39-117) U/L Troponin I High Sens < 2.7 (<3.5-35.0) ng/L NT-Pro-B Natriuret Pep < 15.8 (<300) pg/mL Total Protein 7.4 (6.5-8.0) g/dL Albumin 4.8 (3.5-5.0) g/dL COVID-19 (MEGAN) Negative (Negative) COVID-19 Clin Com See Note Influenza Type A (GEORGI) Negative (Negative) Influenza Type B (GEORGI) Negative (Negative) Influenza A & B Note See Note Independent Interpretation I performed an independent interpretation of an: EKG and Plain X-Ray Radiology Impression Discussion of test interpretation with radiology: I have reviewed the radiologist's reading. Discharge Plan Discharge Clinical Impression: Sinusitis, Atypical chest pain Patient Disposition: Home, Self-Care Instructions: Sinusitis (ED) Additional Instructions: Follow up with your primary care doctor. Your EKG and labwork today did not show any signs of a heart attack. I suspect you are having body aches from viral illness. Take ibuprofen and tylenol. Chest X ray did not show any active tuberculosis Prescriptions: New fluticasone propionate [Flonase Allergy Relief] 50 mcg/actuation spray,suspension 1 spray intranasal BID Qty: 16 0RF Rx Instructions: administer into each nostril acetaminophen [Tylenol Extra Strength] 500 mg tablet 1,000 mg PO Q8H 7 Days Qty: 14 0RF ibuprofen 400 mg tablet 400 mg PO Q8H 5 Days Qty: 15 0RF No Action (DME) syringe (disposable) [BD Luer-Vira Syringe] 3 mL syringe See Rx Instructions .Route Qty: 25 0RF Rx Instructions: As directed 1 syringe [id number] 2 syringes total per month for T injection (DME) needle (disp) 22 G 22 gauge x 1 needle See Rx Instructions .Route Qty: 30 0RF Rx Instructions: As directed to inject testosterone (DME) needle (disp) 18 G [BD Regular Bevel [place]] 18 gauge x 1 needle See Rx Instructions .Route Qty: 30 0RF Rx Instructions: As directed to draw testosterone cholecalciferol (vitamin D3) [Vitamin D3] 50 mcg (2,000 unit) Capsule 50 mcg PO DAILY methadone 40 mg tablet,soluble 29 mg PO DAILY ibuprofen 400 mg tablet 400 mg PO Q6H PRN (Reason: pain) Qty: 14 0RF sucralfate 1 gram tablet 1 g PO TID PRN (Reason: Epigastric discomfort, gastritis) Qty: 60 0RF cyclobenzaprine 5 mg tablet 5 mg PO TID PRN (Reason: muscle spasm) 5 Days Qty: 20 0RF prednisone 20 mg tablet 40 mg PO DAILY 5 Days Qty: 10 0RF docusate calcium 240 mg capsule 240 mg PO DAILY Qty: 30 0RF polyethylene glycol 3350 [Miralax] 17 gram/dose powder 17 g PO DAILY Qty: 119 0RF azithromycin 250 mg tablet See Rx Instructions .ROUTE .COMPLEX Qty: 6 0RF Rx Instructions: For 250 mg dose pack: take 500 mg today (day 1), then 250 mg for 4 days (days 2-5) swtptwsqgq-ennjbkkgabgug-vgfe 50-325-40 mg capsule 1 cap PO DAILY PRN (Reason: pain) Qty: 10 0RF acetaminophen [Tylenol Extra Strength] 500 mg tablet 1,000 mg PO Q8H 10 Days Qty: 60 0RF polyethylene glycol 3350 17 gram powder in packet 17 g PO DAILY fluvoxamine 25 mg tablet 25 mg PO BEDTIME pantoprazole 40 mg tablet,delayed release (DR/EC) 40 mg PO DAILY bisacodyl [Dulcolax (bisacodyl)] 5 mg tablet,delayed release (DR/EC) 20 mg PO ONCE 1 Days Qty: 4 0RF Rx Instructions: Take four tablets pre colonoscopy instructions polyethylene glycol 3350 [Miralax] 17 gram/dose powder 238 g PO ONCE Qty: 238 0RF Rx Instructions: per colonoscopy prep instructions melatonin 5 mg tablet 5 - 10 mg PO BEDTIME PRN famotidine 20 mg tablet 20 mg PO DAILY PRN (Reason: GERD) Qty: 90 1RF Rx Instructions: Take one tablet daily at bedtime as needed docusate sodium 100 mg capsule 100 mg PO BEDTIME PRN (Reason: constipation) Qty: 90 0RF Rx Instructions: Take one tablet at bedtime as needed for constipation tamsulosin 0.4 mg capsule 0.4 mg PO BEDTIME 90 Days Qty: 90 1RF testosterone cypionate 200 mg/mL oil 200 mg IM Q2W 28 Days Qty: 2 5RF Print Language: Armenian
[2025-07-09 12:17] LABS: MANUAL DIFF FLAG NO
[2025-07-09 12:21] LABS: Hematocrit 43.8 % (42.0-52.0); Hemoglobin 14.6 g/dl (14.0-18.0); Imm Gran Abs Auto 0.01 X10*3/uL (0.00-0.03); Imm Gran Pct Auto 0.2 % (0.0-0.4); Lymphocytes Absolute Auto 1.3 X10*3/uL (1.2-4.9); Mean Corpuscular HGB Conc 33.3 g/dl (31.0-36.0); Mean Corpuscular Hemoglobin 32.4 pg (27.0-33.0); Mean Corpuscular Volume 97.3 fL (80.0-98.0); NRBC Abs Auto 0.000 X10*3/uL (0.0-0.012); NRBC Pct Auto 0.0 /100WBC (0.0-0.2); Platelet Count 195 X10*3/uL (160-400); Red Blood Count 4.50 X10*6/uL (4.60-5.80); White Blood Count 4.7 X10*3/uL (4.8-10.8)
[2025-07-09 12:32] LABS: INTERNATIONAL NORM RATIO 1.0 (0.9-1.1); Prothrombin Time 12.0 SEC (11.2-13.5)
[2025-07-09 12:38] LABS: IDNOW Serial# 08D9AD1C; Influenza B2 Negative (Negative)
[2025-07-09 12:40] LABS: COVID-19 Test Negative (Negative); IDNOW Serial# 6674DD1D
[2025-07-09 12:44] LABS: Alanine Aminotransferase 21 U/L (0-40); Albumin Level 4.8 g/dL (3.5-5.0); Alkaline Phosphatase 40 U/L (39-117); Anion Gap 12 (12-20); Aspartate Amino Transferase 35 U/L (5-37); Blood Urea Nitrogen 16 mg/dL (9-16); Calcium 9.1 mg/dL (8.4-10.2); Carbon Dioxide 28 mmol/L (22-29); Chloride 103 mmol/L (96-108); Creatinine Clr Calc Pharmacy 68.5; Estimated Glomerular Filt Rate > 60; Potassium 4.4 mmol/L (3.3-5.1); Sodium 139 mmol/L (135-145); Total Protein 7.4 g/dL (6.5-8.0)
[2025-07-09 12:46] LABS: Troponin-I High Sensitivity < 2.7 ng/L (<3.5-35.0)
[2025-07-09 12:53] LABS: NT Pro B Type Natriuretic Pept < 15.8 pg/mL (<300)
[2025-07-09 14:09] VITALS: BP 115/63; PULSE 70; RESP 18; TEMP 36.8; O2SAT 99
== END 2025-07-09 14:10 | disposition home or self-care (01) ==
PROVIDERS: Physician Assistant Medical; Emergency Provider Student in an Organized Health Care Education/Training Program; PCP Registered Nurse
DX: J32.9 Chronic sinusitis, unspecified (principal); R07.89 Other chest pain; R06.02 Shortness of breath; I10 Essential (primary) hypertension; R51.9 Headache, unspecified; R10.A0 Flank pain, unspecified side; Z03.818 Encounter for observation for suspected exposure to other biological agents ruled out; Z79.899 Other long term (current) drug therapy
CPT/HCPCS: 71046; 80053; 83880; 84484; 85025; 85610; 87502; 87635; 93005; 99283

== ENCOUNTER → 2025-07-09 11:46 | Outpatient (BNV) | payer MEDICAID, SELFPAY | PROVIDERS: Emergency Provider Student in an Organized Health Care Education/Training Program; PCP Registered Nurse; Visit Provider Internal Medicine Cardiovascular Disease | DX: R07.89 Other chest pain (principal) | CPT/HCPCS: 93010 ==

== ENCOUNTER → 2025-07-09 11:52 | Outpatient (BNV) | payer MEDICAID, SELFPAY | PROVIDERS: PCP Registered Nurse; Visit Provider Radiology Diagnostic Radiology | DX: R07.9 Chest pain, unspecified (principal) | CPT/HCPCS: 71046 ==

== ENCOUNTER 2025-07-14 12:41 | Inpatient (IN) | payer MEDICAID, OTHER, SELFPAY ==
--- OUTSIDE RECORDS SUMMARY | 2025-07-09 09:00 | XMS_ITS | Encounter Summary ---
Author Organization [employer] Address [address] [place] [address] Care Team Providers Care Precision Mechanical Instrument Maker Name Role Phone Haily Robb WATER TAXI DRIVER Primary Care Provider Gregoria Brooks RN Unavailable [phone] Latricia Houser Unavailable Encounter Details Date Type Department Care Team (Late st Contact Info) Description 07/09/2025 9:00 AM EST Office Visit [facility] [address] [place], [place] [phone] Francy Jennings MD [address] [place] [address] High direct bilirubin (Primary Dx); Positive TB test; Mixed anxiety and depressive disorder; Chronic bilateral low back pain without sciatica; Screen for STD (sexually transmitted disease) Social History Tobacco Use Types Packs/Day Years [...] Sign Reading Time Taken Comments Blood Pressure 136/66 07/09/2025 8:51 AM EST Pulse 92 07/09/2025 8:51 AM EST Temperature 36.3 C (97.3 F) 07/09/2025 8:51 AM EST Respiratory Rate 12 07/09/2025 8:51 AM EST Oxygen Saturation 98% 07/09/2025 8:51 AM EST Inhaled Oxygen Concentration - - Weight 62 kg (136 lb 9.6 oz) 07/09/2025 8:51 AM EST Height 172.7 cm (5' 8 ) 07/09/2025 8:51 AM EST Body Mass Index 20.77 07/09/2025 8:51 AM EST documented in this encounter Progress Notes * Francy Jennings MD - 07/09/2025 9:00 AM EST SUBJECTIVE: John Ro is a 55 y.o. year old adult who presents for sick visit/liver inflamed. Denies recent illness, injury, or hospitalization. Elevated Bilirubin Reports history of elevated bilirubin and concern about liver inflammation. He is concerned that the elevated bilirubin has caused facial redness and visible veins on the head. No history of icterus,ascites, mental status changes. He stopped smoking cigarettes two and a half years ago. Denies current use of illicit drugs. Reports using methadone 28 mg daily. 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 Has not received treatment for latent tuberculosis. Reports concern about possible tuberculosis involvement in the spine (?) after [facility]inic evaluation in May, [facility] note from earlier this year showed a CT scan of the T and l umbar spine showing chronic DJD changes, no specific vertebral compromise from TV or granulomatous processes. According to the note on 03/10/2025 patient had declined treatment for latent TB at the time and was more concerned about chronic back pain, he was referred to neurosurgery. Denies active pulmonary tuberculosis symptoms. Anxiety and Claustrophobia Reports significant anxiety and claustrophobia, especially related to undergoing MRI That was ordered by neurosurgery. Acute Concerns: Social History Social History Narrative Tobacco Use: Former, quit 2023 ETOH: None Marijuana Use: None Other substance use: On methadone maintenance therapy. No hx of IVDU Current living environment: Lives with nephew, spends the day with wifee Children: 3 kids Employment/education: Sexually active: yes Partners are: control: Problem List[1] Family History[2] Review of Systems Constitutional: Negative for chills, fatigue and fever. HENT: Negative for congestion, ear pain, nosebleeds, rhinorrhea, sinus pressure, sore throat and trouble swallowing. Eyes: Negative for pain and discharge. Respiratory: Negative for cough, chest tightness and shortness of breath. Cardiovascular: Negative for chest pain, palpitations and leg swelling. Gastrointestinal: Positive for abdominal distention and abdominal pain. Negative for blood in stool, constipation, diarrhea and nausea. Endocrine: Negative for polydipsia and polyuria. Genitourinary: Negative for dysuria, frequency, genital sores, pelvic pain and vaginal discharge. Musculoskeletal: Positive for arthralgias. Negative for back pain and neck pain. Skin: Negative for rash. Allergic/Immunologic: Negative for environmental allergies. Neurological: Negative for dizziness, seizures, weakness, light-headedness and headaches. Hematological: Negative for adenopathy. Psychiatric/Behavioral: Negative for agitation, behavioral problems, self-injury and suicidal ideas. The patient is nervous/anxious. OBJECTIVE: Vitals: 07/09/25 0851 BP: 136/66 Pulse: 92 Resp: 12 Temp: 97.3 ??F (36.3 ??C) SpO2: 98% Physical Exam HENT: Right Ear: Tympanic membrane and ear canal normal. Left Ear: Tympanic membrane and ear canal normal. Mouth/Throat: Mouth: Mucous membranes are moist. Pharynx: No oropharyngeal exudate or posterior oropharyngeal erythema. Eyes: Pupils: Pupils are equal, round, and reactive to light. Cardiovascular: Rate and Rhythm: Regular rhythm. Pulses: Normal pulses. Heart sounds: Normal heart sounds. No murmur heard. Pulmonary: Breath sounds: Normal breath sounds. Abdominal: General: Bowel sounds are normal. Palpations: Abdomen is soft. Tenderness: There is no abdominal tenderness. Musculoskeletal: General: Normal range of motion. Cervical back: Neck supple. Skin: General: Skin is warm. Neurological: General: No focal deficit present. Mental Status: He is alert and oriented to person, place, and time. Psychiatric: Mood and Affect: Mood normal. Behavior: Behavior normal. 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 No evidence of hepatic failure or other serious liver pathology. - No treatment required for Gilbert syndrome reassurance. Advised monitoring if future medications affecting liver function are prescribed. -Discussed with him that he should follow-up closely with PCP as his risk of chronic liver disease increase mostly related to history of drug use and alcohol and not from Gilbert's disease Positive TB test - Seen by [facility] TB clinic, he had no evidence of active pulmonary tuberculosis. Risk of future activation discussed. - Advised to communicate with clinic if decision changes regarding initiation of therapy, as of thelast note, it looks like he was not ready for prophylactic Rx. - Risks and side effects: Risks of latent tuberculosis therapy with rifampin discussed. Mixed anxiety and depressive disorder We had a lengthy discussions about patient's not taking medication regularly and staying constantlyconcerned about medical issues. I advised him to start taking Elavil and Seroquel nightly + duloxetine and follow-up with PCP or MHprovider Patient feels safe at home and is able to reach out for safety Relevant Medications hydrOXYzine HCl (Atarax) 25 MG tablet Chronic bilateral low back pain without sciatica - Patient has been referred to neurosurgery by TV clinic as he was concerned about low back pain. He has known DJD/DDD of the spine which is likely the reason for symptoms, I told her that he is veryunlikely that he has DVT involvement of the spine. - Advised to follow-up with neurosurgery after MRI. - MRI of the spine scheduled for July 17, 2025, Advised to take hydroxyzine as needed prior to imaging. Other Visit Diagnoses Screen for STD (sexually transmitted disease) - Advised to complete STD testing, including HIV and syphilis. Relevant Orders Chlamydia/Trichomonas/Neisseria gonorrhoeae, PCR, Urine This note was drafted using Ambient (AI) technology. The patient/patient's guardian has been informed and has consented to the use of this technology: Yes Follow Up: Medications Ordered Prior to Encounter[3] [1] Patient Active Problem List Diagnosis Helicobacter pylori gastritis Positive TB test Hyperlipidemia Methadone maintenance therapy patient Mixed anxiety and depressive disorder Renal cyst, left Submandibular lymphadenopathy Vitamin D deficiency Tobacco use Neck pain on left side Hypogonadism in male Scrotal pain Moderate somatic symptom disorder Opioid dependence in remission ([facility]) ([facility]) Odynophagia Chronic pruritus Dental calculus Generalized gingival recession, moderate Partial edentulism Epigastric pain Shortness of breath Nasal congestion Pain in both lower extremities Lumbar radiculopathy Urinary retention Bilateral lower extremity edema Normal oral exam Interstitial lung disease ([facility]) ([facility]) Lung nodules LLQ pain Seasonal allergies Dizziness [...] lower quadrant abdominal pain Slow transit constipation High direct bilirubin Other chest pain [2] Family History Problem Relation Name Age [...] BY MOUTH AT BEDTIME 30 tablet 0 baclofen (Lioresal) 10 MG tablet Take one tablet TID PRN 30 tablet 0 BD Hypodermic Needle 18G X 1 misc BD Plastipak Syringe 3 ML misc Blood Pressure kit Check blood pressure daily [...] BEDTIME NEEDED FOR GAS 30 capsule 1 ibuprofen 600 MG tablet Take 1 tablet (600 mg) by mouth every 6 (six) hours if needed for mild painfor up to 14 days. 42 tablet 0 ipratropium (Atrovent) 0.03 % nasal [...] TOPICALLY TWICE DAILY 30 g 1 [DISCONTINUED] hydrOXYzine HCl (Atarax) 25 MG tablet TAKE 1 TABLET BY MOUTH EVERY 6 HOURS NEEDEDFOR ANXIETY OR FOR ITCHING 120 tablet 0 benzocaine-menthol (Chloraseptic) 6-10 MG lozenge Dissolve 1 lozenge in the mouth every 2 (two) hours if needed for sore throat. (Patient not taking: Reported on 07/09/2025) 100 lozenge 0 No current facility-administered medications on file prior to visit. documented in this encounter Miscellaneous Notes * Assessment & Plan Note - Francy Jennings MD - 07/10/2025 3:12 PM EST Associated Problem(s): Mixed anxiety and depressive disorder We had a lengthy discussions about patient's not taking medication regularly and staying constantlyconcerned about medical issues. I advised him to start taking Elavil and Seroquel nightly + duloxetine and follow-up with PCP or MHprovider Patient feels safe at home and is able to reach out for safety * Assessment & Plan Note - Francy Jennings MD - 07/10/2025 3:11 PM EST Associated Problem(s): Chronic bilateral low back pain without sciatica - Patient has been referred to neurosurgery by TV clinic as he was concerned about low back pain. He has known DJD/DDD of the spine which is likely the reason for symptoms, I told her that he is veryunlikely that he has DVT involvement of the spine. - Advised to follow-up with neurosurgery after MRI. - MRI of the spine scheduled for July 17, 2025, Advised to take hydroxyzine as needed prior to imaging. 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 No evidence of hepatic failure or other serious liver pathology. - No treatment required for Gilbert syndrome reassurance. Advised monitoring if future medications affecting liver function are prescribed. -Discussed with him that he should follow-up closely with PCP as his risk of chronic liver disease increase mostly related to history of drug use and alcohol and not from Gilbert's disease * Assessment & Plan Note - Francy Jennings MD - 07/10/2025 3:08 PM EST Associated Problem(s): Positive TB test - Seen by [facility] TB clinic, he had no evidence of active pulmonary tuberculosis. Risk of future activation discussed. - Advised to communicate with clinic if decision changes regarding initiation of therapy, as of thelast note, it looks like he was not ready for prophylactic Rx. - Risks and side effects: Risks of latent tuberculosis therapy with rifampin discussed. documented in this encounter Plan of Treatment Upcoming Encounters Date Type Department Care Team (Late st Contact Info) Description 07/15/2025 11:00 AM EST Office Visit [facility] [address] [place] [address] [facility] [address] [place] [address] Scheduled Orders Name Type Priority Associated Diagnoses Orde r Schedule Chlamydia/Trichomonas /Neisseria gonorrhoeae, PCR, Urine Lab Routine Screen for STD (sexually transmitted disease) Expected: 07/09/2025 (Approximate), Expires: 07/09/2026 documented as of this encounter Goals Goal Patient Goal Type Associated Problems Recent Progress Patient-Stated? Author Patient will adhere to medication regimen General No Mary Moreland documented as of this encounter Visit Diagnoses Diagnosis High direct bilirubin- Primary Positive TB test Mixed anxiety and depressive disorder Dysthymic disorder Chronic bilateral low back pain without sciatica Screen for STD (sexually transmitted disease) Screening examination for venereal disease documented in this encounter Additional Health Concerns Assessment Noted Time PHQ-9 Depression Total Score: 8 06/17/20 11:48 AM EDT documented as of this encounter Care Teams Precision Mechanical Instrument Maker Relationship Specialty Start Date End Date SalemHaily FNP [address] [place] [address] PCP - General Family Medicine 05/01/22 Gregoria Brooks, [place] [address] [place] [address] Registered Nurse Family Medicine 06/15/25 Latricia Houser 06/16/25 documented as of this encounter
--- OUTSIDE RECORDS SUMMARY | 2025-07-10 11:20 | XMS_ITS | Encounter Summary ---
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 Primary Care Provider [phone] Gregoria Brooks RN Unavailable [phone] Latricia Houser Unavailable Reason for Visit * Reason Comments Chest Pain Encounter Details Date Type Department Care Team (Late st Contact Info) Description 07/10/2025 11:20 AM EST Office Visit [facility] [address] [place], [place] [id number] Hoa Dueñas NP [address] [place], [place] [phone] Other chest pain (Primary Dx); Tachycardia Social History Tobacco Use Types Packs/Day Years [...] Sign Reading Time Taken Comments Blood Pressure 157/83 07/10/2025 11:39 AM EST Pulse 101 07/10/2025 11:39 AM EST Temperature 36.7 C (98 F) 07/10/2025 11:39 AM EST Respiratory Rate 18 07/10/2025 11:39 AM EST Oxygen Saturation 99% 07/10/2025 11:39 AM EST Inhaled Oxygen Concentration - - Weight 61.2 kg (135 lb) 07/10/2025 11:39 AM EST Height - - Body Mass Index 20.53 07/09/2025 8:51 AM EST documented in this encounter Progress Notes * Hoa Dueñas, CHANDRA - 07/10/2025 11:20 AM EST John Ro is a 55 y.o. 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 Respiratory: Positive for chest tightness. Negative for shortness of breath. Cardiovascular: Positive for chest pain and palpitations. Negative for leg swelling. Gastrointestinal: Negative for abdominal distention and abdominal pain. Genitourinary: Negative for difficulty urinating and dyspareunia. Neurological: Negative for dizziness. BP (!) 157/83 (BP Location: Left arm, Patient Position: Sitting, BP Cuff Size: Adult) Pulse 101 Temp 98 ??F (36.7 ??C) (Temporal) Resp 18 Wt 135 lb (61.2 kg) SpO2 99% BMI 20.53 kg/m?? Physical Exam Vitals reviewed. Constitutional: Appearance: Normal appearance. HENT: Head: Normocephalic. Cardiovascular: Rate and Rhythm: Normal rate. Heart sounds: Normal heart sounds. Pulmonary: Breath sounds: Normal breath sounds. Abdominal: Palpations: Abdomen is soft. Musculoskeletal: Cervical back: Neck supple. Neurological: Mental Status: He is alert. Psychiatric: Mood and Affect: Mood is anxious. Speech: He is communicative. - CARDIOVASCULAR: Tachycardia observed during examination. Results: Orders Only on 07/09/2025 Component Date Value Ref Range Status White Blood Count 07/09/2025 4.7 (L) 4.8 - 10.8 X10*3/uL Final Red Blood Count 07/09/2025 4.50 (L) 4.60 - 5.80 X10*6/uL Final Hemoglobin 07/09/2025 14.6 14.0 - 18.0 g/dl Final Hematocrit 07/09/2025 43.8 42.0 - 52.0 % Final Mean Corpuscular Volume 07/09/2025 97.3 80.0 - 98.0 fL Final Mean Corpuscular Hemoglobin 07/09/2025 32.4 27.0 - 33.0 pg Final Mean Corpuscular HGB Conc 07/09/2025 33.3 31.0 - 36.0 g/dl Final Red Cell Distribution Width 07/09/2025 11.9 11.0 - 16.0 % Final Platelet Count 07/09/2025 195 160 - 400 X10*3/uL Final Mean Platelet Volume 07/09/2025 10.3 9.4 - 12.4 fL Final Neutrophils Percent Auto 07/09/2025 63.3 45 - 73 % Final Imm Gran Pct Auto 07/09/2025 0.2 0.0 - 0.4 % Final Lymphocytes Percent Auto 07/09/2025 27.0 20 - 40 % Final Monocytes Percent Auto 07/09/2025 7.5 2 - 11 % Final Eosinophils Percent Auto 07/09/2025 1.1 0 - 4 % Final Basophils Percent Auto 07/09/2025 0.9 0 - 2 % Final NRBC Pct Auto 07/09/2025 0.0 0.0 - 0.2 /100WBC Final Neutrophils Absolute Auto 07/09/2025 3.0 2.0 - 8.3 x10*3/uL Final Imm Gran Abs Auto 07/09/2025 0.01 0.00 - 0.03 X10*3/uL Final Lymphocytes Absolute Auto 07/09/2025 1.3 1.2 - 4.9 X10*3/uL Final Monocytes Absolute Auto 07/09/2025 0.4 0.1 - 1.2 X10*3/uL Final Eosinophils Absolute Auto 07/09/2025 0.1 0.0 - 0.4 X10*3/uL Final Basophils Absolute Auto 07/09/2025 0.0 0.0 - 0.2 X10*3/uL Final NRBC Abs Auto 07/09/2025 0.000 0.0 - 0.012 X10*3/uL Final Prothrombin Time 07/09/2025 12.0 11.2 - 13.5 SEC Final INTERNATIONAL NORM RATIO 07/09/2025 1.0 0.9 - 1.1 Final INTERNATIONAL NORMALIZED RATIO (INR) REFERENCE RANGES Reference RangeFor patients not on anticoagulant therapy: 0.9 - 1.1INR ranges for oral anticoagulanttherapy:For prevention and treatment of venous thrombosis and pulmonary embolism: 2.0 - 3.0For acute myocardial infarction with aspirin therapy: 2.0 - 3.0For acute myocardial infarction without aspirin therapy: 3.0 - 4.0For patients with mechanical prosthetic heart valves: 2.5 - 3.5 IDNOW SERIAL# 07/09/2025 [id number] Final Influenza A 07/09/2025 Negative Negative Final Influenza B2 07/09/2025 Negative Negative Final Influenza A B2 Note 07/09/2025 See Note Final The [employer] ID NOW Influenza A B2 test is used for thequalitative detection of influenza A and B from patientswith signs and symptoms of respiratory infection.Negative results do not preclude influenza virus infectionand should not be used as the sole basis for diagnosis,treatment or other patient ma nagement decisions.There is a risk of false negative results due to thepresence of variants in the viral targets of the assay, lowlevels of virus in the specimen and co-infection withRespiratory Syncytial Virus. Color Urine 07/09/2025 Yellow Final Appearance Urine 07/09/2025 Clear Final PH 07/09/2025 7.0 5.0 - 9.0 Final Glucose Urine UA 07/09/2025 Negative Negative mg/dL Final Urine Blood 07/09/2025 Negative Negative Final Specific [place] - Urine 07/09/2025 >=1.030 (H) 1.005 - 1.025 Final Urine Protein 07/09/2025 Trace Neg-Trace mg/dL Final Urine Ketones 07/09/2025 Trace Negative mg/dL Final Nitrite Urine 07/09/2025 Negative Negative Final Leukocyte Esterase Urine 07/09/2025 Negative Negative Final RBC Urine 07/09/2025 0-2 0 - 2 /HPF Final Urine WBC 07/09/2025 0-5 0 - 5 /HPF Final Urine Squamous Epithelial Cell 07/09/2025 0-2 0 - 2 /HPF Final CALCIUM OXALATE CRYSTAL, UR 07/09/2025 Present Final Urine Bacteria 07/09/2025 None Seen None Seen Final Hyaline Casts, Urine 07/09/2025 0-2 0 - 2 /LPF Final IDNOW SERIAL# 07/09/2025 [id number] Final COVID-19 TEST 07/09/2025 Negative Negative Final COVID-19 NOTE 07/09/2025 See Note Final Comment: Results are for the identification of SARS-CoV2 RNA. TheSARS-CoV2 RNA is generally detectable in respiratory samplesduring the acute phase of infection. Positive results areindicative of thepresence of SARS-CoV-2 RNA; clinicalcorrelation with patient history and other diagnosticinformation is necessary to determine patient infectionstatus. Positive results do not rule out bacterial infectionor co-infection with other viruses.Testing facilities within the [facility] and itsterritories are required to report all [...] considered in the context of a patient'srecent expos ures, history and the presence of clinical signsand symptoms consistent with COVID-19.This test hasbeen authorized by the FDA under an EmergencyUse Authorization (EUA) for use by authorized laboratories.Testing performed on the [employer] NOW utilizing NAAT. Sodium 07/09/2025 139 135 - 145 mmol/L Final Potassium 07/09/2025 4.4 3.3 - 5.1 mmol/L Final Slight Hemolysis.Interpret result with caution. Chloride 07/09/2025 103 96 - 108 mmol/L Final Carbon Dioxide 07/09/2025 28 22 - 29 mmol/L Final Anion Gap 07/09/2025 12 12 - 20 Final Urea Nitrogen (BUN) 07/09/2025 16 9 - 16 mg/dL Final Creatinine, Serum 07/09/2025 1.00 0.5 - 1.4 mg/dL Final Creatinine Clr Calc Pharmacy 07/09/2025 68.5 Final eGFR (calculated from the MDRD study equation) and eCrCl(calculated from the Cockcroft-Gault equation) are based ondifferent parameters and may not yield comparable results.If eCrCl result is absurd,please check patient'sheight/weight. Estimated Glomerular Filt Rate 07/09/2025 >60 Final Chronic Kidney Disease: Estimated GFR < 60 mL/min/[id number] Kidney Disease: Estimated GFR < 15 mL/min/1.73m2 Glucose 07/09/2025 108 60 - 115 mg/dL Final Calcium 07/09/2025 9.1 8.4 - 10.2 mg/dL Final Bilirubin, Total 07/09/2025 1.1 (H) 0.0 - 1.0 mg/dL Final Aspartate Amino Transferase 07/09/2025 35 5 - 37 U/L Final Slight Hemolysis.Interpret result with caution. Alanine Aminotransferase 07/09/2025 21 0 - 40 U/L Final Total Protein 07/09/2025 7.4 6.5 - 8.0 g/dL Final Albumin Level 07/09/2025 4.8 3.5 - 5.0 g/dL Final Alkaline Phosphatase 07/09/2025 40 39 - 117 U/L Final TROPONIN I HIGH SENSITIVITY 07/09/2025 <2.7 <3.5 - 35.0 ng/L Final The [place] high sensitivity Troponin-I results should beused in conjunction with other diagnostic information suchas ECG, clinical observations and information, and patientsymptoms to aid in the diagnosis of [place]. NT-proBNP 07/09/2025 <15.8 <300 pg/mL Final Reference Range:Age Group (years) NT-proBNP (pg/ml) InterpretationAll <300 Negative: HF unlikelyFor patients presenting to the ED with clinical suspicion ofnew onset or worsening HF, see below:18 to <50 >299.9 to <450.0 Grayzone: [id number] to 75 >299.9 to <900.0 other causes of>75 >299.9 to <1800.0 NT- proBNP [id number] to <50 >449.9 Positive: HF [id number] >899.9>75 >1799.9Note: Elevated NT-proBNP levels should be interpreted inthe context of other clinical information. CT PCR, Urine 07/09/2025 NOT DETECTED Not Detect. Final A not detected test result does not exclude the possibilityof infection because test results can beaffected byimproper specimen collection, concurrent antibiotic therapy,or the number of organisms in the specimen which may bebelow the sensitivity of the test. As with many diagnostictests, results from the Xpert CT/NG assay should beinterpreted in conjunction with other laboratory andclinical data available to the clinician.The Xpert CT/NG assay should not be used for the evaluationof suspectedsexual abuse or for other medico- legalindications. Additional testing is recommended in anycircumstance when false positive or false negative resultscould lead to adverse medical, social or psychologicalconsequences. NG PCR, Urine 07/09/2025 NOT DETECTED Not Detect. Final A not detected test result does not exclude the possibilityof infection because test results can beaffected byimproper specimen collection, concurrent antibiotic therapy,or the number of organisms in the specimen which may bebelow the sensitivity of the test. As with many diagnostictests, results from the Xpert CT/NG assay should beinterpreted in conjunction with other laboratory andclinical data available to the clinician.The Xpert CT/NG assay should not be used for the evaluationof suspectedsexual abuse or for other medico- legalindications. Additional testing is recommended in anycircumstance when false positive or false negative resultscould lead to adverse medical, social or psychologicalconsequences. Orders Only on 07/05/2025 Component Date Value Ref Range Status White Blood Count 07/05/2025 7.5 4.8 - 10.8 X10*3/uL Final Red Blood Count 07/05/2025 4.47 (L) 4.60 - 5.80 X10*6/uL Final Hemoglobin 07/05/2025 14.5 14.0 - 18.0 g/dl Final Hematocrit 07/05/2025 43.0 42.0 - 52.0 % Final Mean Corpuscular Volume 07/05/2025 96.2 80.0 - 98.0 fL Final Mean Corpuscular Hemoglobin 07/05/2025 32.4 27.0 - 33.0 pg Final Mean Corpuscular HGB Conc 07/05/2025 33.7 31.0 - 36.0 g/dl Final Red Cell Distribution Width 07/05/2025 11.9 11.0 - 16.0 % Final Platelet Count 07/05/2025 203 160 - 400 X10*3/uL Final Mean Platelet Volume 07/05/2025 10.5 9.4 - 12.4 fL Final Neutrophils Percent Auto 07/05/2025 79.4 (H) 45 - 73 % Final Imm Gran Pct Auto 07/05/2025 0.3 0.0 - 0.4 % Final Lymphocytes Percent Auto 07/05/2025 14.6 (L) 20 - 40 % Final Monocytes Percent Auto 07/05/2025 4.7 2 - 11 % Final Eosinophils Percent Auto 07/05/2025 0.7 0 - 4 % Final Basophils Percent Auto 07/05/2025 0.3 0 - 2 % Final NRBC Pct Auto 07/05/2025 0.0 0.0 - 0.2 /100WBC Final Neutrophils Absolute Auto 07/05/2025 6.0 2.0 - 8.3 x10*3/uL Final Imm Gran Abs Auto 07/05/2025 0.02 0.00 - 0.03 X10*3/uL Final Lymphocytes Absolute Auto 07/05/2025 1.1 (L) 1.2 - 4.9 X10*3/uL Final Monocytes Absolute Auto 07/05/2025 0.4 0.1 - 1.2 X10*3/uL Final Eosinophils Absolute Auto 07/05/2025 0.1 0.0 - 0.4 X10*3/uL Final Basophils Absolute Auto 07/05/2025 0.0 0.0 - 0.2 X10*3/uL Final NRBC Abs Auto 07/05/2025 0.000 0.0 - 0.012 X10*3/uL Final Bilirubin, Total 07/05/2025 1.3 (H) 0.0 - 1.0 mg/dL Final Bilirubin, Direct 07/05/2025 0.5 0.0 - 0.5 mg/dL Final Aspartate Amino Transferase 07/05/2025 23 5 - 37 U/L Final Alanine Aminotransferase 07/05/2025 20 0 - 40 U/L Final Total Protein 07/05/2025 7.2 6.5 - 8.0 g/dL Final Albumin Level 07/05/2025 4.8 3.5 - 5.0 g/dL Final Alkaline Phosphatase 07/05/2025 47 39 - 117 U/L Final Sodium 07/05/2025 140 135 - 145 mmol/L Final Potassium 07/05/2025 3.5 3.3 - 5.1 mmol/L Final Chloride 07/05/2025 102 96 - 108 mmol/L Final Carbon Dioxide 07/05/2025 27 22 - 29 mmol/L Final Anion Gap 07/05/2025 15 12 - 20 Final Urea Nitrogen (BUN) 07/05/2025 10 9 - 16 mg/dL Final Creatinine, Serum 07/05/2025 0.83 0.5 - 1.4 mg/dL Final Creatinine Clr Calc Pharmacy 07/05/2025 83.1 Final eGFR (calculated from the MDRD study equation) and eCrCl(calculated from the Cockcroft-Gault equation) are based ondifferent parameters and may not yield comparable results.If eCrCl result is absurd,please check patient'sheight/weight. Estimated Glomerular Filt Rate 07/05/2025 >60 Final Chronic Kidney Disease: Estimated GFR < 60 mL/min/[id number] Kidney Disease: Estimated GFR < 15 mL/min/1.73m2 Glucose 07/05/2025 139 (H) 60 - 115 mg/dL Final Calcium 07/05/2025 9.0 8.4 - 10.2 mg/dL Final Lipase 07/05/2025 16 8 - 78 U/L Final Orders Only on 07/02/2025 Component Date Value Ref Range Status White Blood Count 07/02/2025 4.8 4.8 - 10.8 X10*3/uL Final Red Blood Count 07/02/2025 4.42 (L) 4.60 - 5.80 X10*6/uL Final Hemoglobin 07/02/2025 14.4 14.0 - 18.0 g/dl Final Hematocrit 07/02/2025 42.9 42.0 - 52.0 % Final Mean Corpuscular Volume 07/02/2025 97.1 80.0 - 98.0 fL Final Mean Corpuscular Hemoglobin 07/02/2025 32.6 27.0 - 33.0 pg Final Mean Corpuscular HGB Conc 07/02/2025 33.6 31.0 - 36.0 g/dl Final Red Cell Distribution Width 07/02/2025 11.9 11.0 - 16.0 % Final Platelet Count 07/02/2025 201 160 - 400 X10*3/uL Final Mean Platelet Volume 07/02/2025 10.1 9.4 - 12.4 fL Final Neutrophils Percent Auto 07/02/2025 71.0 45 - 73 % Final Imm Gran Pct Auto 07/02/2025 0.2 0.0 - 0.4 % Final Lymphocytes Percent Auto 07/02/2025 18.8 (L) 20 - 40 % Final Monocytes Percent Auto 07/02/2025 7.5 2 - 11 % Final Eosinophils Percent Auto 07/02/2025 1.9 0 - 4 % Final Basophils Percent Auto 07/02/2025 0.6 0 - 2 % Final NRBC Pct Auto 07/02/2025 0.0 0.0 - 0.2 /100WBC Final Neutrophils Absolute Auto 07/02/2025 3.4 2.0 - 8.3 x10*3/uL Final Imm Gran Abs Auto 07/02/2025 0.01 0.00 - 0.03 X10*3/uL Final Lymphocytes Absolute Auto 07/02/2025 0.9 (L) 1.2 - 4.9 X10*3/uL Final Monocytes Absolute Auto 07/02/2025 0.4 0.1 - 1.2 X10*3/uL Final Eosinophils Absolute Auto 07/02/2025 0.1 0.0 - 0.4 X10*3/uL Final Basophils Absolute Auto 07/02/2025 0.0 0.0 - 0.2 X10*3/uL Final NRBC Abs Auto 07/02/2025 0.000 0.0 - 0.012 X10*3/uL Final Sodium 07/02/2025 142 135 - 145 mmol/L Final Potassium 07/02/2025 4.0 3.3 - 5.1 mmol/L Final Chloride 07/02/2025 105 96 - 108 mmol/L Final Carbon Dioxide 07/02/2025 31 (H) 22 - 29 mmol/L Final Anion Gap 07/02/2025 10 (L) 12 - 20 Final Urea Nitrogen (BUN) 07/02/2025 12 9 - 16 mg/dL Final Creatinine, Serum 07/02/2025 0.93 0.5 - 1.4 mg/dL Final Creatinine Clr Calc Pharmacy 07/02/2025 75.9 Final eGFR (calculated from the MDRD study equation) and eCrCl(calculated from the Cockcroft-Gault equation) are based ondifferent parameters and may not yield comparable results.If eCrCl result is absurd,please check patient'sheight/weight. Estimated Glomerular Filt Rate 07/02/2025 >60 Final Chronic Kidney Disease: Estimated GFR < 60 mL/min/1.65b8Kdlrox Kidney Disease: Estimated GFR < 15 mL/min/1.73m2 Glucose 07/02/2025 98 60 - 115 mg/dL Final Calcium 07/02/2025 9.4 8.4 - 10.2 mg/dL Final TROPONIN I HIGH SENSITIVITY 07/02/2025 <2.7 <3.5 - 35.0 ng/L Final The [place] high sensitivity Troponin-I results should beused in conjunction with other diagnostic information suchas ECG, clinical observations and information, and patientsymptoms to aid in the diagnosis of [place]. TROPONIN I HIGH SENSITIVITY 07/02/2025 <2.7 <3.5 - 35.0 ng/L Final The [place] high sensitivity Troponin-I results should beused in conjunction with other diagnostic information suchas ECG, clinical observations and information, and patientsymptoms to aid in the diagnosis of [place]. Office Visit on 06/22/2025 Component Date Value Ref Range Status TSH reflex Free T4 06/22/2025 1.82 0.32 - 4.0 uIU/mL Final Orders Only on 06/13/2025 Component Date Value Ref Range Status Sodium 06/13/2025 138 135 - 145 mmol/L Final Potassium 06/13/2025 4.3 3.3 - 5.1 mmol/L Final Chloride 06/13/2025 102 96 - 108 mmol/L Final Carbon Dioxide 06/13/2025 31 (H) 22 - 29 mmol/L Final Anion Gap 06/13/2025 9 (L) 12 - 20 Final Urea Nitrogen (BUN) 06/13/2025 14 9 - 16 mg/dL Final Creatinine, Serum 06/13/2025 0.99 0.5 - 1.4 mg/dL Final Creatinine Clr Calc Pharmacy 06/13/2025 70.4 Final eGFR (calculated from the MDRD study equation) and eCrCl(calculated from the Cockcroft-Gault equation) are based ondifferent parameters and may not yield comparable results.If eCrCl result is absurd,please check patient'sheight/weight. Estimated Glomerular Filt Rate 06/13/2025 >60 Final Chronic Kidney Disease: Estimated GFR < 60 mL/min/1.46b9Dkxpow Kidney Disease: Estimated GFR < 15 mL/min/1.73m2 Glucose 06/13/2025 100 60 - 115 mg/dL Final Calcium 06/13/2025 9.5 8.4 - 10.2 mg/dL Final Bilirubin, Total 06/13/2025 1.5 (H) 0.0 - 1.0 mg/dL Final Aspartate Amino Transferase 06/13/2025 24 5 - 37 U/L Final Alanine Aminotransferase 06/13/2025 18 0 - 40 U/L Final Total Protein 06/13/2025 7.5 6.5 - 8.0 g/dL Final Albumin Level 06/13/2025 4.9 3.5 - 5.0 g/dL Final Alkaline Phosphatase 06/13/2025 50 39 - 117 U/L Final Magnesium 06/13/2025 1.9 1.6 - 2.6 mg/dL Final Lipase 06/13/2025 19 8 - 78 U/L Final White Blood Count 06/13/2025 7.2 4.8 - 10.8 X10*3/uL Final Red Blood Count 06/13/2025 4.33 (L) 4.60 - 5.80 X10*6/uL Final Hemoglobin 06/13/2025 14.0 14.0 - 18.0 g/dl Final Hematocrit 06/13/2025 42.0 42.0 - 52.0 % Final Mean Corpuscular Volume 06/13/2025 97.0 80.0 - 98.0 fL Final Mean Corpuscular Hemoglobin 06/13/2025 32.3 27.0 - 33.0 pg Final Mean Corpuscular HGB Conc 06/13/2025 33.3 31.0 - 36.0 g/dl Final Red Cell Distribution Width 06/13/2025 13.1 11.0 - 16.0 % Final Platelet Count 06/13/2025 201 160 - 400 X10*3/uL Final Mean Platelet Volume 06/13/2025 11.1 9.4 - 12.4 fL Final Neutrophils Percent Auto 06/13/2025 76.2 (H) 45 - 73 % Final Imm Gran Pct Auto 06/13/2025 0.3 0.0 - 0.4 % Final Lymphocytes Percent Auto 06/13/2025 15.9 (L) 20 - 40 % Final Monocytes Percent Auto 06/13/2025 5.8 2 - 11 % Final Eosinophils Percent Auto 06/13/2025 1.1 0 - 4 % Final Basophils Percent Auto 06/13/2025 0.7 0 - 2 % Final NRBC Pct Auto 06/13/2025 0.0 0.0 - 0.2 /100WBC Final Neutrophils Absolute Auto 06/13/2025 5.5 2.0 - 8.3 x10*3/uL Final Imm Gran Abs Auto 06/13/2025 0.02 0.00 - 0.03 X10*3/uL Final Lymphocytes Absolute Auto 06/13/2025 1.2 1.2 - 4.9 X10*3/uL Final Monocytes Absolute Auto 06/13/2025 0.4 0.1 - 1.2 X10*3/uL Final Eosinophils Absolute Auto 06/13/2025 0.1 0.0 - 0.4 X10*3/uL Final Basophils Absolute Auto 06/13/2025 0.1 0.0 - 0.2 X10*3/uL Final NRBC Abs Auto 06/13/2025 0.000 0.0 - 0.012 X10*3/uL Final TROPONIN I HIGH SENSITIVITY 06/13/2025 <2.7 <3.5 - 35.0 ng/L Final The [place] high sensitivity Troponin-I results should beused in conjunction with other diagnostic information suchas ECG, clinical observations and information, and patientsymptoms to aid in the diagnosis of [place]. Color Urine 06/13/2025 Yellow Final Appearance Urine 06/13/2025 Clear Final PH 06/13/2025 8.5 5.0 - 9.0 Final Glucose Urine UA 06/13/2025 Negative Negative mg/dL Final Urine Blood 06/13/2025 Negative Negative Final Specific [place] - Urine 06/13/2025 1.020 1.005 - 1.025 Final Urine Protein 06/13/2025 Negative Neg-Trace mg/dL Final Urine Ketones 06/13/2025 Negative Negative mg/dL Final Nitrite Urine 06/13/2025 Negative Negative Final Leukocyte Esterase Urine 06/13/2025 Negative Negative Final IDNOW SERIAL# 06/13/2025 [id number] Final Influenza A 06/13/2025 Negative Negative Final Influenza B2 06/13/2025 Negative Negative Final Influenza A B2 Note 06/13/2025 See Note Final The [employer] ID NOW Influenza A B2 test is used for thequalitative detection of influenza A and B from patientswith signs and symptoms of respiratory infection.Negative results do not preclude influenza virus infectionand should not be used as the sole basis for diagnosis,treatment or other patient ma nagement decisions.There is a risk of false negative results due to thepresence of variants in the viral targets of the assay, lowlevels of virus in the specimen and co-infection withRespiratory Syncytial Virus. IDNOW SERIAL# 06/13/2025 [id number] Final COVID-19 TEST 06/13/2025 Invalid Negative Final COVID-19 NOTE 06/13/2025 See Note Final Comment: Results are for the identification of SARS-CoV2 RNA. TheSARS-CoV2 RNA is generally detectable in respiratory samplesduring the acute phase of infection. Positive results areindicative of thepresence of SARS-CoV-2 RNA; clinicalcorrelation with patient history and other diagnosticinformation is necessary to determine patient infectionstatus. Positive results do not rule out bacterial infectionor co-infection with other viruses.Testing facilities within the [facility] and [facility] are required to report all positive [...] considered in the context of a patient'srecent expos ures, history and the presence of clinical signsand symptoms consistent with COVID-19.This test hasbeen authorized by the FDA under an EmergencyUse Authorization (EUA) for use by authorized laboratories.Testing performed on the [employer] [facility] ID NOW utilizing NAAT. IDNOW SERIAL# 06/13/2025 [id number] Final COVID-19 TEST 06/13/2025 Negative Negative Final COVID-19 NOTE 06/13/2025 See Note Final Comment: Results are for the identification of SARS-CoV2 RNA. TheSARS-CoV2 RNA is generally detectable in respiratory samplesduring the acute phase of infection. Positive results areindicative of thepresence of SARS-CoV-2 RNA; clinicalcorrelation with patient history and other diagnosticinformation is necessary to determine patient infectionstatus. Positive results do not rule out bacterial infectionor co-infection with other viruses.Testing facilities within the [facility] and [facility] are required to report all positive [...] considered in the context of a patient'srecent expos ures, history and the presence of clinical signsand symptoms consistent with COVID-19.This test hasbeen authorized by the FDA under an EmergencyUse Authorization (EUA) for use by authorized laboratories.Testing performed on the [employer] ID NOW utilizing NAAT. Assessment & Plan Other chest pain Orders: propranolol (Inderal) 40 MG tablet; Take 1 tablet (40 mg) by mouth every 12 (twelve) hours if needed (anxiety, rapid hr) for up to 15 days. ECG 12 lead Tachycardia Orders: propranolol (Inderal) 40 MG tablet; Take 1 tablet (40 mg) by mouth every 12 (twelve) hours if needed (anxiety, rapid hr) for up to 15 days. ECG 12 lead Assessment & Plan Other chest pain: - Chest pain is not due to heart disease or myocardial infarction. - Prescribed propranolol 40 mg, 1 tablet twice daily as needed, to be taken when experiencing discomfort or rapid heart rate. Recommended follow-up in one week to assess response to medication. Tachycardia: - Tachycardia attributed to stress and caffeine intake; not related to chronic heart disease or thyroid dysfunction. - Prescribed propranolol 40 mg, 1 tablet twice daily as needed, to reduce heart rate and associatedsymptoms. Advised that medication may also help with headache, ear discomfort, and mild blood pressure reduction. Recommended follow- up in one week to evaluate effectiveness. Prescription - Propranolol 40 mg, 1 tablet twice daily as needed for rapid heart rate and anxiety Reduces heart rate and slightly lowers blood pressure Alleviates headaches and ear symptoms Protective effect against heart attack Off-label use for situational anxiety (public speaking, flying) Eliminated from system in approximately 4 hours Current Medications[4] Based on our discussion, I have outlined the following instructions for you: - Take one tablet of propranolol 40 mg twice a day if you feel discomfort or your heart is beating fast. This medicine can also help with headaches, ear discomfort, and slightly lower your blood pressure. Make sure to have a follow- up appointment in one week to see how the medicine is working for you. Thank you again for your visit, and we look forward to supporting you in your journey to better health. This note was drafted using Ambient (AI) technology. The patient/patient's guardian has been informed and has consented to the use of this technology: Yes Visit Conducted in: Albanian Translation by: Provided by [facility] staff member Jr , [1] Patient Active Problem List Diagnosis Helicobacter pylori gastritis Positive TB test Hyperlipidemia Methadone maintenance therapy patient Mixed anxiety and depressive disorder Renal cyst, left Submandibular lymphadenopathy Vitamin D deficiency Tobacco use Neck pain on left side Hypogonadism in male Scrotal pain Moderate somatic symptom disorder Opioid dependence in remission ([facility] (HCC) Odynophagia Chronic pruritus Dental calculus Generalized gingival recession, moderate Partial edentulism Epigastric pain Shortness of breath Nasal congestion Pain in both lower extremities Lumbar radiculopathy Urinary retention Bilateral lower extremity edema Normal oral exam Interstitial lung disease ([facility]) (HCC) Lung nodules LLQ pain Seasonal allergies [...] High direct bilirubin Other chest pain [2] Past Medical History: Diagnosis Date Anxiety Depression GERD (gastroesophageal reflux disease) High cholesterol [3] Allergies Allergen Reactions Shellfish Allergy Anaphylaxis Allergy Shellfish Protein-Containing Drug Products Seafood [4] Current Outpatient Medications: Acetaminophen 500 MG capsule, [...] sore throat. (Patient not taking: Reported on 07/09/2025), Disp: 100 lozenge, Rfl: 0 Blood Pressure kit, Check blood pressure daily, [...] hydrOXYzine HCl (Atarax) 25 MG tablet, TAKE 1-2 TABLET BY MOUTH 1h AC procedure for anxiety, can repeat in 6h prn anxiety, Disp: 4 tablet, Rfl: 0 ibuprofen 600 MG tablet, [...] day (constipation)., Disp: 527 g, Rfl: 2 propranolol (Inderal) 40 MG tablet, Take 1 tablet (40 mg) by mouth every 12 (twelve) hours if needed (anxiety, rapid hr) for up to 15 days., Disp: 30 tablet, Rfl: 0 QUEtiapine (SEROquel) 25 MG tablet, Take 25 [...] TWICE DAILY, Disp: 30 g, Rfl: 1 documented in this encounter Miscellaneous Notes * Assessment & Plan Note - Hoa Dueñas NP - 07/10/2025 11:20 AM ESTAssociated Problem(s): Other chest pain Orders: propranolol (Inderal) 40 MG tablet; Take 1 tablet (40 mg) by mouth every 12 (twelve) hours if needed (anxiety, rapid hr) for up to 15 days. ECG 12 lead documented in this encounter Plan of Treatment Upcoming Encounters Date Type Department Care Team (Late st Contact Info) Description 07/15/2025 11:00 AM EST Office Visit [facility] [address] [place] [address] Haily Robb [facility] [address] [place] [address] documented as of this encounter Goals Goal Patient Goal Type Associated Problems Recent Progress Patient-Stated? Author Patient will adhere to medication regimen Mary Peoples documented as of this encounter Procedures Procedure Name Priority Date/Time Associated Diagnosis Comments ECG 12-LEAD Routine 07/10/2025 12:59 PM EST Other chest pain Tachycardia documented in this encounter Results * ECG 12 lead (07/10/2025 12:59 PM EST) Hoa Dueñas NP ECG ORDERABLES Final Result documented in this encounter Visit Diagnoses Diagnosis Other chest pain- Primary Tachycardia Unspecified tachycardia documented in this encounter Additional Health Concerns Assessment Noted Time PHQ-9 Depression Total Score: 8 06/17/20 25 11:48 AM EDT documented as of this encounter Care Teams Neon Sign Mechanic Relationship Specialty Start Date End Date Haily Robb FNP [address] [place] [address] PCP - General Family Medicine 05/01/22 Gregoria Brooks RN [address] [place] [address] Registered Nurse Family Medicine 06/15/25 Latricia Houser 06/16/25 documented as of this encounter
--- OUTSIDE RECORDS SUMMARY | 2025-07-11 16:08 | XMS_ITS | Continuity of Care Document ---
Author Organization [facility] ter Address [address] [place] [address]- Care Team Providers Care Assistant Terminal Manager Name Role Phone Silex CROP QUANTITATIVE GENETICIST, Haily Primary Care Physician [id number]s): 07/11/25 - 07/11/[address] [address]- Discharge Disposition: A-D/C Home Attending Physician: Yasmeen Cabezas MD Admitting Physician: Yasmeen Cabezas MD Referring Physician: Not on Staff, Referring MD Encounter Type: Disch ES Allergies, Adverse Reactions, Alerts No Known Medication Allergies Substance Criticality Severity Reaction Reaction Severity Status shellfish Active Medications Acetaminophen Tablet 975 mg, Tablet, By Mouth, Once, STAT, 07/11/25 12:12:00 PM EST, Stop date 07/11/25 1:00:41 PM EST Start Date: 07/11/25 Stop Date: 07/11/25 Status: Completed Medication Dispense Status: Completed Total Allowed Fills: 1 Fills Dispensed: 0 gabapentin 600 mg oral tablet 1 tablet = 600 mg, By Mouth, Daily at bedtime, 0 Refills, Maintenance, 07/27/24 4:23:00 PM EST, Partial fill upon patient request if the prescription is for a schedule II opioid drug. Start Date: 07/27/24 Status: Ordered Medication Dispense Status: Completed Total Allowed Fills: 1 Fills Dispensed: 0 Methadone 29, By Mouth, Daily, verified dose with miravista, 0 Refills, Maintenance, 07/28/24 12:08:00 PM EST, Partial fill upon patient request if the prescription is for a schedule II opioid drug. Start Date: 07/28/24 Status: Ordered Medication Dispense Status: Completed Total Allowed Fills: 1 Fills Dispensed: 0 omeprazole 40 mg oral enteric coated capsule 1 capsule = 40 mg, By Mouth, Daily, # 30 capsule, 0 Refills, Maintenance, 07/27/24 4:24:00 PM EST, EC Capsule, Partial fill upon patient request if the prescription is for a schedule II opioid drug. Start Date: 07/27/24 Status: Ordered Medication Dispense Status: Completed Quantity: 30.0 Unit: capsule Total Allowed Fills: 1 Fills Dispensed: 0 rosuvastatin 10 mg oral capsule 1 capsule = 10 mg, By Mouth, Daily, # 30 capsule, 0 Refills, Maintenance, 07/27/24 4:24:00 PM EST, Capsule, Partial fill upon patient request if the prescription is for a schedule II opioid drug. Start Date: 07/27/24 Status: Ordered Medication Dispense Status: Completed Quantity: 30.0 Unit: capsule Total Allowed Fills: 1 Fills Dispensed: 0 tamsulosin 0.4 mg oral capsule 0.8 mg, 2, capsule, By Mouth, Daily, # 30 capsule, Refills 0, Maintenance, 07/27/24 4:25:00 PM EST,Partial fill upon patient request if the prescription is for a schedule II opioid drug. 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 Confirmed Active Lung interstitial disease Confirmed Active Lumbar radiculopathy Confirmed Active Hypogonadism male Confirmed Active Anxiety and depression Confirmed Active Methadone maintenance therapy patient Confirmed Active Opioid dependence in remission Confirmed Active Moderate somatic symptom disorder Confirmed Active Substance use disorder Confirmed Active Tinnitus Confirmed Active Vitamin D deficiency Confirmed Active 1TB clinic referral- 1 NOS and 1 CX- referral closed Results Radiology Reports * Exam Date Time Procedure Performing Provider Status 07/11/25 12:41 PM US RUQ Auth (Verif ied) Notes: (US RUQ) Reason For Exam: Abdominal Pain;Other: RESULT: US RUQ US RUQ Hx of Present Illness: via interp services : c o st, cp and inflamed liver; Reason: Other:; Abdominal Pain; Clinical Question(s): Cholecystitis Abdominal pain. COMPARISON: None. FINDINGS: Liver: Normal in size and echotexture. No focal lesion. Smooth hepatic contour. Main portal vein patent with normal hepatopetal direction of flow. Gallbladder: No gallstones. Normal wall thickness. No pericholecystic fluid. Negative Rodriguez sign. Biliary Tree: No intrahepatic or extrahepatic bile duct dilation is identified. Common duct measures: 0.6 cm proximally and 0.3 cm distally, normal. Pancreas: No abnormality in the visualized portions of the pancreas. Pancreatic duct measures 0.2 cm, normal. Right kidney: 9.9 cm in length. Normal parenchymal echotexture and thickness. No hydronephrosis, stone or mass. IMPRESSION: Normal right upper quadrant ultrasound. Normal gallbladder. No cholelithiasis or evidence of acute cholecystitis. WSN: [id number] Ordering Physician: Remington Willis Dictated By: Lesa Skaggs MD Dictated Date/Time: 07/11/25 12:56 p Reviewed By: Lesa Skaggs MD Signed By: Lesa Skaggs MD Signed Date/Time: 07/11/25 12:56 pm Transcribed By: AYANA Transcribed Date/Time: 07/11/25 12:53 pm * Exam Date Time Procedure Performing Provider Status 07/11/25 12:28 PM Chest 2 Views Frontal and Lat Auth (Verified) Notes: (Chest 2 Views Frontal and Lat) Reason For Exam: Shortness of Breath, Fever;Other: RESULT: Chest 2 Views Frontal and Lat Chest 2 Views Frontal and Lat Hx of Present Illness: via interp services : c o st, cp and inflamed liver; Reason: Other:; Shortness of Breath, Fever; Clinical Question(s): Pneumonia COMPARISON: 01/27/2025 FINDINGS: LINES AND TUBES: None. LUNGS AND PLEURA: Clear lungs. Normal pulmonary vascularity. No evidence of pleural effusion. No pneumothorax. HEART, MEDIASTINUM AND KAYLAH: Heart is normal in size. Normal mediastinal and hilar contour. BONES AND SOFT TISSUES: No acute abnormality. IMPRESSION: No acute abnormality. WSN: [id number] Ordering Physician: Remingotn Willis Dictated By: Rizwan Howard MD Dictated Date/Time: 07/11/25 12:32 p Reviewed By: Rizwan Howard MD Signed By: Rizwan Howard MD Signed Date/Time: 07/11/25 12:32 pm Transcribed By: AYANA Transcribed Date/Time: 07/11/25 12:32 pm Vital Signs Most recent to oldest [Reference Range]: 1 2 3 Height 173 cm (07/11/25 10:40 AM) Weight 61.5 kg (07/11/25 10:40 AM) Oxygen Saturation [94-100 %] 99 % (07/11/25 4:00 PM) 100 % (07/11/25 2:19 PM) 100 % (07/11/25 10:40 AM) Pulse Rate [55-90 bpm] 62 bpm (07/11/25 4:00 PM) 61 bpm (07/11/25 2:19 PM) 64 bpm (07/11/25 10:40 AM) Body Mass Index [18.5-24.99 kg/m2] 20.55 kg/m2 (07/11/25 10:40 AM) Blood Pressure [90-138/55-84 mm Hg] 117/68mm Hg (07/11/25 4:00 PM) 116/69mm Hg (07/11/25 2:19 PM) 111/65mm Hg (07/11/25 10:40 AM) Respiratory Rate [16-30 br/min] 18 br/min (07/11/25 4:00 PM) 18 br/min (07/11/25 2:19 PM) 18 br/min (07/11/25 1:59 PM) Temperature [96.8-100.4 DegF] 99.0 DegF (07/11/25 4:00 PM) 99.0 DegF (07/11/25 2:19 PM) 98.4 DegF (07/11/25 10:40 AM) Mode of Delivery (Oxygen) Room air (07/11/25 4:00 PM) Room air (07/11/25 2:19 PM) Room air (07/11/25 10:40 AM) Blood pressure sites Arm, left (07/11/25 4:00 PM) Arm, left (07/11/25 2:19 PM) Arm, left (07/11/25 10:40 AM) Temperature Route Oral (07/11/25 4:00 PM) Oral (07/11/25 2:19 PM) Oral (07/11/25 10:40 AM) Weight Obtained Via Patient/family state d (07/11/25 10:40 AM) Social History Social History Type Response Smoking Status Former smoker, quit more than 30 days ago entered on: 06/08/25 Sex Sex Representation Male (finding) Status N/A EKG study * Event Display: ECG 12-Lead Authored Date: Please click on pdf link to open report * Event Display: ECG 12-Lead Authored Date: Ventricular Rate: 59 BPM Atrial Rate: 59 BPM P-R Interval: 134 ms QRS Duration: 100 ms Q-T Interval: 378 ms QTC Calculation(Bazett): 374 ms P Bardolph: 36 degrees R Bardolph: 58 degrees T Bardolph: 44 degrees Sinus bradycardia Nonspecific T wave abnormality Abnormal ECG When compared with ECG of 27-Jul-2024 16:50, Vent. rate has decreased by 40 bpm QRS duration has increased ST no longer depressed in Inferior leads Nonspecific T wave abnormality now evident in Lateral leads QT has shortened Confirmed by Segundo López ([id number]) on 07/11/2025 6:02:33 PM [place]: Segundo López Patient Care team information Care Team Personnel Name: Silex Haily ARTIS Position: Reference Physician Member Role: PCP Address: [address] [place] [address] Telecom: Care Team Related Persons Name: BAM MORFIN Insurance Providers Guarantor name: ORIN CASTREJONRadha OREILLY Health Plan Information #: 1 Payer: [employer] CUSTOMER SERVICE Payer Identifier: NA Member Number: [id number] Group Number: [id number] Subscriber Identifier: [id number] Relationship to Subscriber: self Coverage Type: MEDICAID Coverage Verification Date: NA Telecom: NA Address:
--- OUTSIDE RECORDS SUMMARY | 2025-07-11 23:59 | XMS_ITS | Continuity of Care Document ---
Author Organization [facility] Address [address] [place] [address]- Care Team Providers Care Bead Wire Taper Name Role Phone [place] CHANDRA, Haily Primary Care Physician [phone] [id number] Date(s): 05/21/25 - 07/11/25 [facility] [address] [place] [address]- Attending Physician: Sulema Dumont MD Admitting Physician: Sulema Dumont MD Referring Physician: Haily Robb NP Encounter Type: Pre Office Visit Allergies, Adverse Reactions, Alerts No Known Medication Allergies Substance Criticality Severity Reaction Reaction Severity Status shellfish Active Medications gabapentin 600 mg oral tablet 1 tablet [...] Total Allowed Fills: 1 Fills Dispensed: 0 Problem List Condition Confirmation Course Effective Dates [...] 1 NOS and 1 CX- referral closed Social History Social History Type Response Smoking Status Former smoker, quit more than 30 days ago entered on: 06/08/25 Sex Sex Representation Male (finding) Patient Care team information Care Team Personnel Name: [place] Haily ARTIS Position: Reference Physician Member Role: PCP Address: [address] [place] [id number] Telecom: Care Team Related Persons Name: BAM MORFIN Insurance Providers Guarantor name: ORINHARDEEP BARRETO OREILLY Health Plan Information #: 1 Payer: [employer] CUSTOMER SERVICE Payer Identifier: JORGE Member Number: [id number] Group Number: [id number] Subscriber Identifier: [id number] Relationship to Subscriber: self Coverage Type: MEDICAID Coverage Verification Date: NA Telecom: NA Address: NA
--- OUTSIDE RECORDS SUMMARY | 2025-07-12 23:59 | XMS_ITS | Continuity of Care Document ---
Author Organization [facility] Address [address] [place] [address]- Care Team Providers Care Applied Behavior Specialist Name Role Phone [place] SANDSTONE INSPECTOR REPAIRER, [place] Primary Care Physician [phone] [id number]s): [facility]/12/25 - 07/12/25 [facility] [address] [place] [address]- Attending Physician: Stephon Johnson Admitting Physician: Stephon Johnson Referring Physician: Stephon Johnson Encounter Type: Triage Allergies, Adverse Reactions, Alerts No Known Medication [...] Care team information Care Team Personnel Name: [place] SANDSTONE INSPECTOR REPAIRER, Haily Position: Reference Physician Member Role: PCP Address: [address] [place] [id number] Telecom: Care Team Related Persons Name: BAM MORFIN Insurance Providers Guarantor name: ORIN BARRETO OREILLY Health Plan Information #: 1 Payer: [employer] CUSTOMER SERVICE Payer Identifier: JORGE Member Number: [id number] Group Number: [id number] Subscriber Identifier: NA Relationship to Subscriber: self Coverage Type: MEDICAID Coverage Verification Date: JORGE Telecom: JORGE Address: NA
--- NOTE | ~2025-07-14 | CT_ITS ---
CLINICAL HISTORY: altered mental status CT head without contrast Comparison: 04/29/2025 Findings: No intracranial mass, midline shift, hydrocephalus, or acute hemorrhage. No CT evidence of acute ischemia. Visualized paranasal sinuses and mastoid air cells normal. Orbits unremarkable. No skull fracture Impression: 1. No acute intracranial abnormalities. This document has been electronically signed by: Shalom Dickson MD on 07/14/2025 20:38:51
--- NOTE | ~2025-07-14 | XR_ITS ---
EXAMINATION: XR CHEST CLINICAL INFORMATION: chest pain COMPARISON: X-ray 07/09/2025 TECHNIQUE: 2 views of the chest were obtained. FINDINGS: The cardiomediastinal silhouette is within normal limits. The lungs are well expanded. There is no new focal consolidation. No edema, or effusion. No pneumothorax. No acute osseous abnormality. XR/XR chest 2V IMPRESSION: No evidence of acute pulmonary process. Electronically signed by: Rob Summers MD 07/14/2025 01:17 PM [facility]
--- NOTE | 2025-07-14 12:52 | ED.GENADULT ---
HPI - General Adult General Chief complaint: Chest Pain Stated complaint: high bp Time Seen by Provider: 07/14/25 17:16 History of Present Illness ED Provider: Jamie ANN narrative: The patient is a 55-year-old male with a history of opioid use disorder who was currently on methadone. He has been having multiple emergency room visits over the last several months for a variety of somatic complaints. His has been concerned that he has become increasingly paranoid recently. The patient seems to have thoughts that people are trying to poison him. The patient today has a variety of complaints including headache and chest pain. He also says that he has had no appetite. Apparently the patient has also been seen recently at a TB clinic at [facility] because of a positive QuantiFERON tests on 01/28/2024 and 03/26/2025. He was seen at the clinic on 03/10/2025. At that visit CT scans of the thoracic spine in the lumbar spine were reviewed. He was found to have some chronic degenerative changes but he had no evidence of active tuberculosis. Has a result of that evaluation he was felt to have latent tuberculosis without any evidence of active infection. He was offered 4 months of rifampin as treatment for his latent tuberculosis but he did not make a decision about treatment. Related Data Home Medications ?Medication ?Instructions ?Recorded ?Confirmed cholecalciferol (vitamin D3) 50 50 mcg PO DAILY 06/30/20 07/14/25 mcg (2,000 unit) capsule (Vitamin D3) melatonin 5 mg tablet 5 - 10 mg PO BEDTIME PRN insomnia 01/12/23 07/14/25 pantoprazole 40 mg tablet,delayed 40 mg PO DAILY 04/10/25 07/14/25 release fluvoxamine 25 mg tablet 25 mg PO BEDTIME 06/22/25 07/14/25 polyethylene glycol 3350 17 gram 17 g PO DAILY 06/22/25 07/14/25 oral powder packet amitriptyline 25 mg tablet 25 mg PO BEDTIME 07/14/25 07/14/25 calcium polycarbophil 625 mg 625 mg PO BID 07/14/25 07/14/25 tablet (Fiber-Lax) ipratropium bromide 21 mcg (0.03 1 spray intranasal Q12H 07/14/25 07/14/25 %) nasal spray ketotifen fumarate 0.025 % (0.035 1 drp ophthalmic (eye) BID PRN 07/14/25 07/14/25 %) eye drops allergies propranolol 40 mg tablet 40 mg PO Q12H PRN anxiety 07/14/25 07/14/25 rosuvastatin 10 mg tablet 10 mg PO QAM 07/14/25 07/14/25 lidocaine 5 % topical patch 1 - 2 patch topical DAILY 07/15/25 07/15/25 methadone 10 mg/mL oral 28 mg PO DAILY 07/15/25 07/15/25 concentrate (Methadone Intensol) Previous Rx's ?Medication ?Instructions ?Recorded syringe (disposable) 3 mL (BD #25 ea 11/27/24 Luer-Vira Syringe) docusate sodium 100 mg capsule 100 mg PO BEDTIME PRN constipation 02/27/25 #90 caps famotidine 20 mg tablet 20 mg PO DAILY PRN GERD #90 tabs 02/27/25 tamsulosin 0.4 mg capsule 0.4 mg PO BEDTIME 90 days #90 caps 04/07/25 testosterone cypionate 200 mg/mL 200 mg IM Q2W 28 days #2 mL 04/07/25 intramuscular oil needle (disp) 22 G 22 gauge x 1 #30 ea 04/21/25 needle (disp) 18 G 18 gauge x 1 #30 ea 04/23/25 (BD Regular [place]) acetaminophen 500 mg tablet 1,000 mg (2 x 500 mg) PO Q8H 10 07/02/25 (Tylenol Extra Strength) days #60 tabs bnbchsxgko-macupokbchnsn-qjdawfzq 1 cap PO DAILY PRN pain #10 caps 07/02/25 50 mg-325 mg-40 mg capsule fluticasone propionate 50 1 spray intranasal BID #16 grams 07/09/25 mcg/actuation nasal spray,suspension (Flonase Allergy Relief) Allergies Allergy/AdvReac Type Severity Reaction Status Date / Time SEAFOOD Allergy Severe ANAPHYLAXIS Uncoded 07/14/25 12:55 shellfish Allergy Severe Anaphylaxis Uncoded 07/14/25 12:55 Review of Systems Review of Systems: Yes all other systems are reviewed and are negative PMFSH Past Medical History Medical History Constipation Anemia Hx of substance abuse Smoker History of Helicobacter pylori infection Spinal pain Hypogonadism Erectile dysfunction Hx: UTI (urinary tract infection) BPH (benign prostatic hyperplasia) Hx of hepatitis C GERD (gastroesophageal reflux disease) Anxiety and depression HTN (hypertension) Murmur Surgical History Hx of cystoscopy Family History Family History Mother Diabetes Social History Social History Household Members: Other Household Members Other:: Nephew Housing: Apartment Do you presently have visiting nurse or other home services: No Alcohol intake: former Patient Tobacco Use Status: Former Tobacco user Tobacco use type: Cigarette Smoked in Last 30 Days: No e-Cigarette/Vaping Use: Never Used Patient Interested in Nicotine Replacement: No Patient Given Instructions on How to Stop Smoking: No Second Hand Smoke Exposure: No Use of substances other than those prescribed or required for medical reasons: No Substance Use Type: Crack/Cocaine and Heroin Currently Displaying Signs/Symptoms of Drug Intoxication Withdrawal: No Have you been hit, kicked, punched, or otherwise hurt by someone within the past year? If so, by whom?: No Do you feel safe in your current relationship?: Yes Is there a partner from a previous relationship who is making you feel unsafe now?: No Are you made to feel afraid or neglected: No [facility] Practices: Praying to God, Islam. Having ronit. Advance Directives: No Advance Directives Information Provided: Yes Do you have thoughts of harming others: None Do you have a plan to hurt others: No Plan Recently lost weight without trying: Yes How much weight loss: 24-33 pounds Eating poorly because of decreased appetite: Yes Nutrition screen score: 6 Nutrition Risks: Anorexia Poor oral hygiene: No service: No Current occupational status: unemployed Sexual orientation: Straight/Heterosexual Physical Exam ED Vital Signs: Vital Signs - 24 hr 07/14/25 12:54 07/14/25 16:28 07/14/25 18:17 Temperature 99.0 F 98.2 F 98.2 F Pulse Rate 111 H 86 73 Respiratory Rate 20 14 20 Blood Pressure 121/61 128/58 L 121/60 Pulse Oximetry 97 97 99 Oxygen Delivery Method Room Air Room Air Room Air 07/14/25 19:26 07/15/25 04:25 Temperature 98.0 F Pulse Rate 67 99 Respiratory Rate 17 17 Blood Pressure 117/56 L 123/70 Pulse Oximetry 98 99 Oxygen Delivery Method Room Air Room Air BMI result Body Mass Index 18.4 Const Other: The patient is a slim 55-year-old man who was awake and alert. He is pleasant and cooperative. He does not seem in acute distress. Orientation/consciousness: patient oriented x3 HENMT Other: The face is symmetrical. ?Mucous membranes moist. Eyes Other: Pupils are round equal, conjunctivae are clear, extraocular movements intact Neck Neck: Yes normal visual inspection, Yes full ROM and Yes no JVD Resp Effort & Inspection: normal respiratory effort Auscultation: clear to auscultation bilaterally Cardio Rate: regular rate Rhythm: regular rhythm Heart sounds: S1 normal heart sound present and S2 normal heart sound present GI Other: The abdomen is flat, soft, nontender Skin Other: For the most part the skin is pale and dry. He has some slight pale erythema to both shins that looks very chronic. He says this has been the case for several months. Neuro General: patient oriented x3, gait normal, tone normal, moves all extremities, no focal motor deficits and CN's II-XI intact bilaterally Extrem Other: There is no calf swelling or tenderness. No asymmetry. No peripheral edema. Course Course Course Narrative: This is a rapid medical exam performed by Ty Orellana NP: Additional HPI, ROS, PE not included below will be deferred to primary provider. Patient is a 55y/o Yemeni speaking male presenting to the ED with complaint of elevated blood pressure, chest pain, blurred vision in both eyes since this morning. Reported chest pain at 1252. Possibly responding to internal stimuli. Plan: EKG, labs, cxr, visual acuity 1404 Notified by ED paralegal legal secretary that Heather Hale of [facility] ([phone]) called the ED. They would like him to have a psych eval due to paranoid thinking, per his partner. He believes his partner is trying to poison him and that the doctor's are trying to kill him. Reevaluation(s) Reevaluation #1: Time: 08:28 Date: 07/15/25 Provider: Erik Montano, DO Patient in physician observation for psychiatric evaluation.? No acute events reported overnight. No current complaints. VS stable.? pending CARE team evaluation. Will continue to monitor. Medications Administered Generic Name Dose Route Start Last Admin Trade Name Damien PRN Reason Stop Dose Admin Amitriptyline HCl 25 mg 07/14/25 21:15 07/15/25 20:56 Amitriptyline Hcl 25 Mg Tablet PO 25 mg BEDTIME MARIA G Administration Atorvastatin Calcium 40 mg 07/15/25 09:00 07/16/25 08:29 Atorvastatin Calcium 40 Mg Tablet PO 40 mg DAILY MARIA G Administration Calcium Polycarbophil 1 tab 07/15/25 21:00 07/16/25 08:29 Calcium Polycarbophil Tablet PO 1 tab BID MARIA G Administration Fluticasone Propionate 1 spray 07/15/25 21:00 07/16/25 09:38 Fluticasone Propionate Nasal 16 Gm [place] NOSTRIL-B Not Given BID MARIA G Fluvoxamine Maleate 50 mg 07/15/25 21:00 07/15/25 20:56 Fluvoxamine Maleate 50 Mg Tablet PO 50 mg BEDTIME MARIA G Administration Hydroxyzine HCl 25 mg 07/15/25 15:47 07/15/25 20:55 Hydroxyzine Hcl 25 Mg Tablet PO 25 mg Q6H PRN Administration mild anxiety Ipratropium [place] 1 spray 07/15/25 20:00 07/16/25 09:38 Ipratropium [place] Leobardo 0.03 % 30 Ml [place] NOSTRIL-B Not Given Q12H [facility] Methadone HCl 28 mg 07/16/25 09:00 07/16/25 08:01 Methadone Hcl 20 Mg/2 Ml Oral.Conc PO 28 mg DAILY MARIA G Administration Omeprazole 20 mg 07/16/25 06:30 07/16/25 08:29 Omeprazole 20 Mg Capsule.Dr PO 20 mg DAILY@0630 MARIA G Administration Propranolol HCl 40 mg 07/14/25 21:03 07/15/25 04:33 Propranolol Hcl 40 Mg Tablet PO 40 mg Q12H PRN Administration Anxiety Protocol Tamsulosin HCl 0.4 mg 07/14/25 21:15 07/15/25 20:56 Tamsulosin Hcl 0.4 Mg Capsule PO 0.4 mg BEDTIME MARIA G Administration Vitamin D 50 mcg 07/16/25 09:00 07/16/25 08:29 Cholecalciferol (Vitamin D3) 25 Mcg Tablet PO 50 mcg DAILY MARIA G Administration Discontinued Medications Generic Name Dose Route Start Last Admin Trade Name Damien PRN Reason Stop Dose Admin Acetaminophen 650 mg 07/14/25 18:18 07/14/25 18:27 Acetaminophen 325 Mg Tablet PO 07/14/25 18:19 650 mg ONCE STA Administration Fluvoxamine Maleate 25 mg 07/14/25 21:15 07/14/25 22:14 Fluvoxamine Maleate 50 Mg Tablet PO Not Given BEDTIME MARIA G Influenza Virus Vaccine 0.5 ml 07/15/25 16:20 07/15/25 17:06 Flu Vacc [id number](6mo Up)/Pf 0.5 Ml Syringe IM 07/15/25 16:21 Not Given .ONCE ONE Melatonin 9 mg 07/14/25 21:10 07/15/25 20:55 Melatonin 3 Mg Tablet PO 9 mg BEDTIME MARIA G Administration Methadone HCl 28 mg 07/15/25 08:44 07/15/25 08:56 Methadone Hcl 20 Mg/2 Ml Oral.Conc PO 07/15/25 08:45 28 mg ONCE ONE Administration Omeprazole 40 mg 07/15/25 06:26 07/15/25 06:44 Omeprazole 40 Mg Capsule.Dr PO 07/15/25 06:27 40 mg DAILY ONE Administration Polyethylene Glycol 17 gm 07/16/25 09:00 07/16/25 09:37 Polyethylene Glycol 3350 17 Gm Powd.Pack PO 17 gm DAILY MARIA G Administration Quetiapine Fumarate 50 mg 07/15/25 21:00 07/15/25 20:56 Quetiapine Fumarate 50 Mg Tablet PO 50 mg BEDTIME MARIA G Administration Medical Decision Making Medical Decision Making [facility] Narrative: The patient is a 55-year-old male who comes to the emergency room with multiple somatic complaints. Additionally the patient is here with his who was concerned that the patient seems increasingly paranoid. The patient has been a very frequent user of the emergency department over the last several months. I have seen him a few times previously. He has seemed to have a significant hypochondria. He has had multiple workups for a variety of complaints in the emergency room. All of his testing has been unremarkable. It turns out that the patient has also had evaluation recently for the question of tuberculosis. Apparently the patient had a positive QuantiFERON steady last March and again this january. The patient was therefore referred to a TB/pulmonary clinic at [facility]. The patient was seen there on 03/10/2025. At that visit the auto camp attendant saw the patient and reviewed the patient is testing including a CT scan of the thoracic spine and a CT scan of the lumbar spine. It was the opinion of the auto camp attendant that the patient had no active TB. The patient was felt to have latent TB and a treatment course with rifampin was offered to the patient but it was not yet decided if the patient was going to agree to a course of this treatment. Additionally the patient has had a number of imaging studies at this hospital in the last few months because of his frequent emergency room visits. He has had a few chest x-rays all of which has been unremarkable. He has also had a CT scan of his abdomen and pelvis 5 months ago in February. Based on the available information including the determination by the [facility] auto camp attendant at the TB clinic that the patient does not have active disease I do not think this patient requires any isolation or other special management arrangements because of any possible TB. I reviewed this with Dr. iDxon of infectious disease who agreed that no special isolation or any other interventions were required. The patient was seen by the care team and there is a recommendation for inpatient psychiatric hospitalization because of his depression and paranoia. I think this is appropriate. I feel the patient is medically clear for evaluation by Psychiatry. The patient will be placed in physician observation pending disposition by the care team. Lab Data 07/14/25 13:08 07/14/25 13:08 Labs: Lab Results 07/14/25 07/14/25 Range/Units 13:08 20:44 WBC 5.3 (4.8-10.8) X10*3/uL RBC 4.43 L (4.60-5.80) X10*6/uL Hgb 14.5 (14.0-18.0) g/dl Hct 41.8 L (42.0-52.0) % MCV 94.4 (80.0-98.0) fL MCH 32.7 (27.0-33.0) pg MCHC 34.7 (31.0-36.0) g/dl RDW 11.5 (11.0-16.0) % Plt Count 206 (160-400) X10*3/uL MPV 10.3 (9.4-12.4) fL Immature Gran % (Auto) 0.2 (0.0-0.4) % Neut % (Auto) 77.5 H (45-73) % Lymph % (Auto) 14.3 L (20-40) % [place] % (Auto) 7.2 (2-11) % Eos % (Auto) 0.2 (0-4) % Baso % (Auto) 0.6 (0-2) % Lymph # (Auto) 0.8 L (1.2-4.9) X10*3/uL [place] # (Auto) 0.4 (0.1-1.2) X10*3/uL Eos # (Auto) 0.0 (0.0-0.4) X10*3/uL Baso # (Auto) 0.0 (0.0-0.2) X10*3/uL Abs Immat Gran (auto) 0.01 (0.00-0.03) X10*3/uL Absolute Neuts (auto) 4.1 (2.0-8.3) x10*3/uL Absolute Nucleated RBC 0.000 (0.0-0.012) X10*3/uL Nucleated RBC % (auto) 0.0 (0.0-0.2) /100WBC PT 12.8 (11.2-13.5) SEC INR 1.0 (0.9-1.1) Sodium 140 (135-145) mmol/L Potassium 3.4 D (3.3-5.1) mmol/L Chloride 104 (96-108) mmol/L Carbon Dioxide 27 (22-29) mmol/L Anion Gap 12 (12-20) BUN 16 (9-16) mg/dL Creatinine 0.87 (0.5-1.4) mg/dL Estim Creat Clear Calc 79.3 Estimated GFR > 60 Random Glucose 127 H (60-115) mg/dL Calcium 9.3 (8.4-10.2) mg/dL Total Bilirubin 1.5 H (0.0-1.0) mg/dL AST 25 (5-37) U/L ALT 27 (0-40) U/L Alkaline Phosphatase 45 (39-117) U/L Troponin I High Sens 3.7 (<3.5-35.0) ng/L Total Protein 7.7 (6.5-8.0) g/dL Albumin 5.0 (3.5-5.0) g/dL Urine Color Yellow Urine Appearance Clear Urine pH 6.5 (5.0-9.0) Ur Specific [place] 1.020 (1.005-1.025) Urine Protein Trace (Neg-Trace) mg/dL Urine Glucose (UA) Negative (Negative) mg/dL Urine Ketones Trace (Negative) mg/dL Urine Blood Negative (Negative) Urine Nitrite Negative (Negative) Ur Leukocyte Esterase Trace H (Negative) Urine RBC 3-5 H (0-2) /HPF Urine WBC 0-5 (0-5) /HPF Ur Squamous Epith Cells 0-2 (0-2) /HPF Urine Bacteria None Seen (None Seen) Hyaline Casts 0-2 (0-2) /LPF Urine Opiates Screen Not Detected (Not Detect) Ur Buprenorphine Scrn Not Detected (Not Detect) ng/mL Ur Oxycodone Screen Not Detected (Not Detect) ng/mL Urine Methadone Screen Positive H (Not Detect) ng/mL Urine Fentanyl Screen Not Detected (Not Detect) Ur Barbiturates Screen Not Detected (Not Detect) Ur Phencyclidine Scrn Not Detected (Not Detect) Ur Amphetamines Screen Not Detected (Not Detect) U Benzodiazepines Scrn Not Detected (Not Detect) Urine Cocaine Screen Not Detected (Not Detect) U Marijuana (THC) Screen Not Detected (Not Detect) Ethyl Alcohol < 10 mg/dL Independent Interpretation I performed an independent interpretation of an: EKG Interpretation: EKG at 1259 shows normal sinus rhythm at 96 beats per minute. No significant changes from previous EKG. Discharge Plan Discharge Clinical Impression: Paranoia, Depression Patient Disposition: Admitted As Inpatient Interventions: Admission Worksheet (ED) Last Done: 07/15/25 13:59 Discharge Date/Time: 07/15/25 14:19
--- NOTE | 2025-07-14 12:53 | ECG_ITS ---
Test Reason : CP Blood Pressure : */* mmHG Vent. Rate : 96 BPM Atrial Rate : 96 BPM P-R Int : 130 ms QRS Dur : 76 ms QT Int : 334 ms P-R-T Axes : 72 69 65 degrees QTcB Int : 421 ms Normal sinus rhythm Normal ECG When compared with ECG of 09-Jul-2025 11:46, Nonspecific T wave abnormality no longer evident in Inferior leads Referred By: Carlene Orellana Electronically Signed By: JHONATAN SANTILLAN MD
[2025-07-14 12:54] VITALS: BP 121/61; PULSE 111; RESP 20; TEMP 37.2; O2SAT 97; BMI 18.4
[2025-07-14 13:14] LABS: MANUAL DIFF FLAG NO
[2025-07-14 13:15] LABS: Hematocrit 41.8 % (42.0-52.0); Hemoglobin 14.5 g/dl (14.0-18.0); Imm Gran Abs Auto 0.01 X10*3/uL (0.00-0.03); Imm Gran Pct Auto 0.2 % (0.0-0.4); Lymphocytes Absolute Auto 0.8 X10*3/uL (1.2-4.9); Mean Corpuscular HGB Conc 34.7 g/dl (31.0-36.0); Mean Corpuscular Hemoglobin 32.7 pg (27.0-33.0); Mean Corpuscular Volume 94.4 fL (80.0-98.0); NRBC Abs Auto 0.000 X10*3/uL (0.0-0.012); NRBC Pct Auto 0.0 /100WBC (0.0-0.2); Platelet Count 206 X10*3/uL (160-400); Red Blood Count 4.43 X10*6/uL (4.60-5.80); White Blood Count 5.3 X10*3/uL (4.8-10.8)
[2025-07-14 13:21] LABS: INTERNATIONAL NORM RATIO 1.0 (0.9-1.1); Prothrombin Time 12.8 SEC (11.2-13.5)
[2025-07-14 13:30] LABS: Alanine Aminotransferase 27 U/L (0-40); Albumin Level 5.0 g/dL (3.5-5.0); Alkaline Phosphatase 45 U/L (39-117); Anion Gap 12 (12-20); Aspartate Amino Transferase 25 U/L (5-37); Blood Urea Nitrogen 16 mg/dL (9-16); Calcium 9.3 mg/dL (8.4-10.2); Carbon Dioxide 27 mmol/L (22-29); Chloride 104 mmol/L (96-108); Creatinine Clr Calc Pharmacy 79.3; Estimated Glomerular Filt Rate > 60; Potassium 3.4 mmol/L (3.3-5.1); Sodium 140 mmol/L (135-145); Total Protein 7.7 g/dL (6.5-8.0)
[2025-07-14 13:37] LABS: Troponin-I High Sensitivity 3.7 ng/L (<3.5-35.0)
[2025-07-14 16:28] VITALS: BP 128/58; PULSE 86; RESP 14; TEMP 36.8; O2SAT 97
--- NOTE | 2025-07-14 16:52 | PC.NURSE ---
NAD. steady on feet. c/o blurred vision and headache. thinks sx may be related to use of a [place] condiment. skin pwd. nsr on monitor
--- OUTSIDE RECORDS SUMMARY | 2025-07-14 17:31 | XMS_ITS ---
Author Organization [employer] Address [address] [place] [address] Care Team Providers Care Unisaw Operator Name Role Phone [facility] Primary Care Provider [phone] Gregoria Brooks RN Unavailable [phone] Latricia Houser Unavailable CM Complex Status:Enrolled (Active) Start date:06/15/2025 Enrollment date:06/17/2025 Enrollment reason:Referred by provider Overview Provider Referral- Patient needs assistance with getting reconnected with the [facility] Adult Day program. Case Team Name Relationship Phone Gregoria Brooks RN(Responsible Staff) Registered Nurse Continued Care and Services Coordination
--- OUTSIDE RECORDS SUMMARY | 2025-07-14 17:31 | XMS_ITS | Encounter Summary ---
Author Organization [employer] Address [address] [place] [address] Care Team Providers Care Communications Tech Name Role Phone Clarisse [facility] Primary Care Provider Gregoria Brooks RN Unavailable [phone] Latricia Houser Unavailable Reason for Visit * Reason Onset Date Comments Nurse Triage 07/14/2025 Encounter Details Date Type Department Care Team (Late st Contact Info) Description 07/14/2025 Telephone [facility] [address], [place] [phone] [facility] [address] [place], [place] [phone] Nurse Triage Social History Tobacco Use Types [...] encounter Miscellaneous Notes * Telephone Encounter - Susanne Washburn RN - 07/14/2025 10:35 AM EST TC placed to pt [place] [employer] [place] [id number] pt has no Dx of HTN states that he gets extremely nervous about his BP when its elevated and takes no medication for his BP however he is on medication for anxiety that can lower BP. Patient reports that his BP at 9:59 was 144/83 pt very anxious nervous about BP states his life is in danger, reassured pt that BP is not dangerously high at this time. Patient reports that he has intermittent dizziness, and talking abut having a lot of pain r/t his liver. Advised pt if he develops and SOB or chest go to ED Protocol Used: Blood Pressure - High (Adult) Protocol-Based Disposition: See in Office or Video Visit Today Video visit offer not recorded Positive Triage Questions: * Patient wants to be seen * Systolic BP >= 130 OR Diastolic >= 80, and * All higher-acuity triage questions were negative Care Advice Discussed: * Reasons To Call Back - Headache, blurred vision, difficulty talking, or difficulty walking occurs - Chest pain or difficulty breathing occurs - You become worse * Telephone Encounter - Yelena Goodwin - 07/14/2025 9:50 AM EST Symptom: High Blood Pressure - Caller Reports Outcome: Schedule a same-day appointment or talk to a nurse or provider today Reason: Caller denied all higher acuity questions The caller accepted this outcome. Contact pt at [phone] (burundian) documented in this encounter Plan of Treatment Upcoming Encounters Date Type Department Care Team (Late st Contact Info) Description 07/15/2025 11:00 AM EST Office Visit [facility] [address] [place] [address] [place] [facility] [address] [place] [address] documented as of this encounter Goals Goal Patient Goal Type Associated Problems Recent Progress Patient-Stated? Author Patient will adhere to medication regimen General Mary Chauhan documented as of this encounter Visit Diagnoses Not on filedocumented in this encounter Additional Health Concerns Assessment Noted Time PHQ-9 Depression Total Score: 8 06/17/20 25 11:48 AM EDT documented as of this encounter Care Teams Communications Tech Relationship Specialty Start Date End Date [facility] [address] [place] [address] PCP - General Family Medicine 05/01/22 Gregoria Brooks RN [address] [place] [id number] Registered Nurse Family Medicine 06/15/25 Latricia Houser 06/16/25 documented as of this encounter
--- OUTSIDE RECORDS SUMMARY | 2025-07-14 17:31 | XMS_ITS | Encounter Summary ---
Author Organization [employer] Address [address] [place] [address] Care Team Providers Care Morning Show Host Name Role Phone Clarisse [facility] Primary Care Provider Gregoria Brooks RN Unavailable [phone] Latricia Houser Unavailable Reason for Visit * Reason Onset Date Comments Results 03/16/2023 Encounter Details Date Type Department Care Team (Late st Contact Info) Description 03/16/2023 Telephone [facility] [address] [place], [place] [phone] [place] [facility] [address] [place], [place] [phone] Results Social History Tobacco Use Types Packs/Day [...] 03/20/2023 4:06 PM EDT Return T/C to [phone] for below message, No answer. LVM to call back on [phone]. * Telephone Encounter - Kelli Boucher - 03/16/2023 2:04 PM EDT Tc from pt requesting a call in regards to results to recent lab orders. Please contact pt at [phone] (Georgian speaker) documented in this encounter Plan of Treatment Upcoming Encounters Date Type Department Care Team (Late st Contact Info) Description 07/15/2025 11:00 AM EST Office Visit [facility] [address] [place], [place] [phone] [place] [facility] [address], [place] [phone] documented as of this encounter Visit Diagnoses Not on filedocumented in this encounter Additional Health Concerns Assessment Noted Time PHQ-9 Depression Total Score: 0 01/26/20 23 3:38 PM EDT documented as of this encounter Care Teams Morning Show Host Relationship Specialty Start Date End Date Clarisse ANETA Johansen [address] [place] [address] PCP - General Family Medicine 05/01/22 Gregoria Brooks RN [address] [place] [address] Registered Nurse Family Medicine 06/15/25 Latricia Houser 06/16/25 documented as of this encounter
--- OUTSIDE RECORDS SUMMARY | 2025-07-14 17:31 | XMS_ITS ---
Author Organization [employer] Address [address] [place] [address] Care Team Providers Care Adult Literacy Instructor Name Role Phone [facility] Primary Care Provider [phone] Gregoria Brooks RN Unavailable [phone] Latricia Houser Unavailable CHW Complex Status:Enrolled (Active) Start date:06/16/2025 Enrollment date:06/16/2025 Enrollment reason:Referred by provider Overview Provider Referral- Patient needs assistance with getting reconnected with the [facility] Adult Day program. Please outreach to patient. Case Team Name Relationship Phone Latricia Houser(Responsible Staff) Continued Care and Services Coordination
--- OUTSIDE RECORDS SUMMARY | 2025-07-14 17:31 | XMS_ITS | Encounter Summary ---
Author Organization [employer] Address [address] [facility] 7t [place] [address] Care Team Providers Care Eco Industrial Development Consultant Name Role Phone Clarisse [facility] Primary Care Provider [phone] Gregoria Brooks RN Unavailable [phone] Latricia Houser Unavailable Reason for Visit * Reason Onset Date Comments Med Refill 09/25/2023 Encounter Details Date Type Department Care Team (Late st Contact Info) Description 09/25/2023 Telephone [facility] MEDICINE 230 [place], [place] [phone] ClarisseHaily [facility] 230 [place], [place] [phone] Med Refill Social History Tobacco Use Types [...] 200 MG/ML injection To be sent to: [facility] - [place], [place] - [address] [facility] documented in this encounter Plan of Treatment Upcoming Encounters Date Type Department Care Team (Late st Contact Info) Description 07/15/2025 11:00 AM EST Office Visit [facility] MED[facility]INE 230 [place] [address] Haily Robb FNP 230 [place] [address] documented as of this encounter Visit Diagnoses Not on filedocumented in this encounter Additional Health Concerns Assessment Noted Time PHQ-9 Depression Total Score: 0 08/15/20 3:52 PM EST documented as of this encounter Care Teams Eco Industrial Development Consultant Relationship Specialty Start Date End Date Haily Robb FNP 230 [place] [address] PCP - General Family Medicine 05/01/22 Gregoria Brooks, CHAGO [address] [place] [address] Registered Nurse Family Medicine 06/15/25 Latricia Houser 06/16/25 documented as of this encounter
--- OUTSIDE RECORDS SUMMARY | 2025-07-14 17:31 | XMS_ITS | Encounter Summary ---
Author Organization [employer] Address [address] 7t [place] [address] Care Team Providers Care It Communications Manager Name Role Phone Clarisse [facility] Primary Care Provider [phone] Gregoria Brooks RN Unavailable [phone] Latricia Houser Unavailable Reason for Visit * Reason Comments Med Refill Encounter Details Date Type Department Care Team (Late st Contact Info) Description 06/03/2025 Refill [facility] MEDICINE 230 [place], [place] [phone] [place] Haily [facility] 230 [place], [place] [phone] Epigastric pain Social History Tobacco Use Types [...] Description 07/15/2025 11:00 AM EST Office Visit [facility] MEDICINE 230 [place] [address] [place] FNP 230 [place] [address] documented as of this encounter Goals Goal [...] as of this encounter Care Teams It Communications Manager Relationship Specialty Start Date End Date Clarisse ANETA Johansen 230 [place] [address] PCP - General Family Medicine 05/01/22 Gregoria Brooks RN 230 [place] [address] Registered Nurse Family Medicine 06/15/25 Latricia Houser 06/16/25 documented as of this encounter
--- OUTSIDE RECORDS SUMMARY | 2025-07-14 17:31 | XMS_ITS | Encounter Summary ---
Author Organization [employer] Address [address] [facility] [address] 7t [place] [address] Care Team Providers Care Exhaust Tender Name Role Phone Clarisse [facility] Primary Care Provider Gregoria Brooks RN Unavailable [phone] Latricia Houser Unavailable Reason for Visit * Reason Onset Date Comments Medication Question 08/24/2022 Encounter Details Date Type Department Care Team (Late st Contact Info) Description 08/24/2022 Telephone [facility] MEDICINE 230 [place], [place] [phone] [place] FNP 230 [place], [place] [phone] Medication Question Social History Tobacco Use Types [...] requesting a call back. States went to roller picker his medication and they gave him vitamin C and he would like to know if he should be taking them again . Please call to clarify. documented in this encounter Plan of Treatment Upcoming Encounters Date Type Department Care Team (Late st Contact Info) Description 07/15/2025 11:00 AM EST Office Visit [facility] MEDICINE 230 [place] [address] Haily Robb FNP 230 [place] [address] documented as of this encounter Visit Diagnoses Not on filedocumented in this encounter Care Teams Exhaust Tender Relationship Specialty Start Date End Date Haily Robb FNP [address] [place] [address] PCP - General Family Medicine 05/01/22 Gregoria Brooks RN [address] [place] [address] Registered Nurse Family Medicine 06/15/25 Latricia Houser 06/16/25 documented as of this encounter
--- OUTSIDE RECORDS SUMMARY | 2025-07-14 17:31 | XMS_ITS | Encounter Summary ---
Author Organization [employer] Address [address] [facility] 7t [place] [address] Care Team Providers Care Driver Examiner Name Role Phone Clarisse Haily LOCKSTITCH SLEEVE SETTER Primary Care Provider [phone] Gregoria Brooks RN Unavailable [phone] Latricia Houser Unavailable Encounter Details Date Type Department Care Team (Latest Contact Info) Description 07/14/2025 Travel Social History Tobacco Use Types Packs/Day [...] Description 07/15/2025 11:00 AM EST Office Visit [facility] MED[facility]INE 230 [place] [address] [facility] 230 [place] [address] documented as of this encounter Goals Goal Patient Goal Type Associated Problems Recent Progress Patient-Stated? Author Patient will adhere to medication regimen General Mary Chauhan documented as of this encounter Visit Diagnoses Not on filedocumented in this encounter Additional Health Concerns Assessment Noted Time PHQ-9 Depression Total Score: 8 06/17/20 25 11:48 AM EDT documented as of this encounter Care Teams Driver Examiner Relationship Specialty Start Date End Date [facility] [address] [place] [address] PCP - General Family Medicine 05/01/22 Gregoria Brooks RN [address] [place] [address] Registered Nurse Family Medicine 06/15/25 Latricia Houser 06/16/25 documented as of this encounter
--- OUTSIDE RECORDS SUMMARY | 2025-07-14 17:31 | XMS_ITS | Encounter Summary ---
Author Organization [employer] Address [address] [facility] 7t [place] [address] Care Team Providers Care Flooring Sales Manager Name Role Phone Clarisse [facility] Primary Care Provider Gregoria Brooks RN Unavailable [phone] Latricia Houser Unavailable Reason for Visit * Reason Comments Care Management C3CM- FOLLOW UP CALL Encounter Details Date Type Department Care Team (Late st Contact Info) Description 07/13/2025 Patient Outreach [facility] MEDICINE 230 [place], [place] [phone] [place] Haily [facility] 230 [place] [address] Care Management (C3CM- FOLLOW UP CALL/) Social History Tobacco Use Types Packs/Day Years [...] of this encounter Progress Notes * Gregoria Brooks, CHAGO - 07/13/2025 9:22 AM EST VERNON Brooks RN and placed outbound call to patient. Patient's name, and address confirmed. Patient states is not doing well and has had recent emergency room visits. Patient reports that did seed cone picker prescription for propranolol 40mg 1 tab BID as ordered during [facility] visit. Per has not felt that this medication is helping. Patient states only took for 3 days. Per patient states that was having SE of paranoia and insomnia and felt it was interfering with other Psych meds. Patient has not taken dose today. Patient made aware that provider Spenser MINERAL INDUSTRY TEACHER wanted 1 week follow up. Due to patient not having improvement and SE agrees to PCP follow up, booked for ER follow up appointment with PCP this week on 07/15/25 at 11am. Patient reminded of upcoming Pain Management appointment tomorrow 07/14/25 at 10am at [address] [place] [address]. Patient states has transportation for this visit. Patient also reminded of MRI appointment on 07/17/25 at 10am at [facility]. Patient made aware to discuss meds to help with anxiety prior to MRI with PCP at follow up appointment this week. Patient also advised that once CM confirms MRI was completed will place call out to TB clinic for coordination of TB treatment follow up. Patient reminded of need to call PT-1 to change address to be able to utilize them for transportation support to medical appointments. Patient verbalized understanding. No further questions or concerns. CM reinforced direct contact information for any additional questions or concerns. Education provided on Walk-In Urgent Care located in [facility]. Patient provided with after-hours line for [facility], , which offer night time triage service and option to transfer to burial needs salesperson provider if needed. Patient verbalizes understanding, and able to r epeat back to board writer. A follow up call will be placed within 10 days, patient agrees with plan. documented in this encounter Miscellaneous Notes * Care Plan - Gregoria Brooks RN - 07/13/2025 9:22 AM EST Active Barriers to Care Manage Barriers to Care (Progressing) Start: 06/17/25 Expected End: 09/18/25 Patient will schedule and attend at least one appointment with Senior Web Engineer specialist care provider within the next 3 months. Goal Note CM continues to place appointment reminder calls to patient to ensure patient adherence to plan of care for treatments. Behavioral Health Support Behavioral Health (Progressing) Start: 06/17/25 Expected End: 09/18/25 Patient will attend all scheduled behavioral health appointments over the next 3 months and take prescribed medication daily as directed, Care Management Care Management (Progressing) Start: 06/17/25 Expected End: 09/18/25 Goal Note Patient continues to be engaged with CM and CHW for care management support. Medication Concerns Improve Medication Adherence (Progressing) Start: 06/17/25 Expected End: 09/18/25 Patient will take all prescribed medications as directed each day and will contact their provider within 48 hours if they experience any side effects or have concerns about their medication. Goal Note CM reviewed with patient regarding adherence to new prescription of propranolol. Patient only used for 3 days due to having SE of insomnia and paranoia. Improve Medication Management (Progressing) Start: 06/17/25 Expected End: 09/18/25 Goal Note CM scheduled patient for follow up with PCP this week to discuss SE to propranolol as well as if agreeable to pre med prior to MRI to help with anxiety. Pain Management Manage Pain (Progressing) Start: 06/17/25 Expected End: 09/18/25 Patient will schedule and attend scheduled appointment with pain management provider within the next 3 months to review current pain level and treatment plan, to work on better managing pain. Goal Note CM reminded patient of upcoming appointment with [facility] Pain management 07/14/25 at 10am at [address] [place] [address] SDOH Needs Support SDOH Needs (Progressing) Start: 06/17/25 Expected End: 09/18/25 Within the next 3 months, patient will work with care management team to address two identified social needs housing and transportation, by following through with at least one referral. Goal Note Patient has not yet called PT-1 for address update. CM reinforced need for address updates to be able to submit for transportation to medical appointments. Will continue to follow up at upcoming conclusion calls. Self Management Patient understands and has a plan for managing symptoms and knows when to contact physician (Progressing) Start: 06/17/25 Expected End: 09/18/25 For the next 3 months, patient will contact my primary care provider's office within 24-48 hours anytime I notice new or worsening symptoms, to get timely care advice over the phone and avoid complications. Goal Note CM continues to review PCP office hours including [facility] extended and weekend hours. documented in this encounter Plan of Treatment Upcoming Encounters Date Type Department Care Team ([facility] st Contact Info) Description 07/15/2025 11:00 AM EST Office Visit [facility] MEDICINE 230 [place] [address] Haily Robb FNP 230 [place] [address] documented as of this encounter Goals Goal Patient Goal Type Associated Problems Recent Progress Patient-Stated? Author Patient will adhere to medication regimen General No Mary Moreland documented as of this encounter Visit Diagnoses Not on filedocumented in this encounter Additional Health Concerns Assessment Noted Time PHQ-9 Depression Total Score: 8 06/17/20 11:48 AM EDT documented as of this encounter Care Teams Flooring Sales Manager Relationship Specialty Start Date End Date Haily Robb FNP [address] [place] [address] PCP - General Family Medicine 05/01/22 Gregoria Boroks RN [address] [place] [address] Registered Nurse Family Medicine 06/15/25 Latricia Houser 06/16/25 documented as of this encounter
--- OUTSIDE RECORDS SUMMARY | 2025-07-14 17:31 | XMS_ITS | Encounter Summary ---
Author Organization [employer] Address [address] [facility] 7t [place] [address] Care Team Providers Care Judo Teacher Name Role Phone Haily Robb MAJOR ACCOUNT REPRESENTATIVE Primary Care Provider [phone] Gregoria Brooks RN Unavailable [phone] Latricia Houser Unavailable Reason for Visit * Reason Comments Med Refill Encounter Details Date Type Department Care Team (Late st Contact Info) Description 10/29/2023 Refill [facility] 230 [place], [place] [phone] Name, MD [place] 230 [place], [place] [phone] Chronic neck pain Social History Tobacco Use [...] Description 07/15/2025 11:00 AM EST Office Visit [facility] MEDICINE 230 [place] [address] Haily Robb [facility] 230 [place] [address] documented as of this encounter Visit Diagnoses Diagnosis Chronic neck pain Cervicalgia documented in this encounter Additional Health Concerns Assessment Noted Time PHQ-9 Depression Total Score: 0 08/15/20 23 3:52 PM EST documented as of this encounter Care Teams Judo Teacher Relationship Specialty Start Date End Date Haily Robb FNP [address] [place] [address] PCP - General Family Medicine 05/01/22 Gregoria Brooks RN [address] [place] [address] Registered Nurse Family Medicine 06/15/25 Latricia Houser 06/16/25 documented as of this encounter
--- OUTSIDE RECORDS SUMMARY | 2025-07-14 17:31 | XMS_ITS | Encounter Summary ---
Author Organization [employer] Address [address] [facility] 7t [place] [address] Care Team Providers Care Plywood Factory Worker Name Role Phone Haily Robb SENIOR APPLICATIONS ARCHITECT Primary Care Provider Gregoria Brooks RN Unavailable [phone] Latricia Houser Unavailable Reason for Visit * Reason Onset Date Comments Results 07/10/2025 Encounter Details Date Type Department Care Team (Late st Contact Info) Description 07/10/2025 Telephone [facility] MEDICINE 230 [place], [place] [phone] Haily Robb SENIOR APPLICATIONS ARCHITECT 230 [place], [place] [phone] Results Social History Tobacco Use Types Packs/Day [...] Telephone Encounter - Willow Mckeon RN - 07/10/2025 3:20 PM EST TC placed to patient [phone] in regards to below message. Patient answered the phone however several loud noises in the background. RN stated patients name several times however patient disconnected the call. RN re-attempted call via [employer] (Janes #[id number]) in regards to below message. Patient reports he does not need any further at this time. Patient reports I was already seen in t he walk in center . Patient advised to return call to [facility] if any further questions/concerns. Patient to f/u PRN. * Telephone Encounter - Kolby Hernandez - 07/10/2025 1:23 PM EST TC from pt reports his labs for liver were abnormal which explains why he is constantly in pain andin ED or [place] , Pt would like to further discuss documented in this encounter Plan of Treatment Upcoming Encounters Date Type Department Care Team (Late st Contact Info) Description 07/15/2025 11:00 AM EST Office Visit [facility] MEDICINE 230 [place] [address] [address] [address] documented as of this encounter Goals Goal [...] Date End Date Haily Robb FNP [address] [place] [address] PCP - General Family Medicine 05/01/22 Gregoria Brooks RN [address] [place] [address] Registered Nurse Family Medicine 06/15/25 Latricia Houser 06/16/25 documented as of this encounter
--- OUTSIDE RECORDS SUMMARY | 2025-07-14 17:31 | XMS_ITS | Encounter Summary ---
Author Organization [employer] Address [address] [facility] [address] 7t [place] [address] Care Team Providers Care Tire Tester Name Role Phone Clarisse [facility] Primary Care Provider Gregoria Brooks RN Unavailable [phone] Latricia Houser Unavailable Reason for Visit * Reason Comments Med Refill Encounter Details Date Type Department Care Team (Late st Contact Info) Description 06/03/2025 Refill [facility] WALK[facility] CENTER 230 [place], [place] [phone] [place] [facility] 230 [place], [place] [phone] Restless leg Social History Tobacco Use Types [...] Description 07/15/2025 11:00 AM EST Office Visit [facility] MEDICINE 230 [place] [address] ClarisseHaily molina FNP 230 [place] [address] documented as of this encounter Goals Goal [...] Start Date End Date Haily RobbANETA 230 [place] [address] PCP - General Family Medicine 05/01/22 Gregoria Brooks RN 230 [place] [address] Registered Nurse Family Medicine 06/15/25 Latricia Houser 06/16/25 documented as of this encounter
--- OUTSIDE RECORDS SUMMARY | 2025-07-14 17:31 | XMS_ITS | Encounter Summary ---
Author Organization [employer] Address [address] [facility] 7t [place] [address] Care Team Providers Care Wireless Architect Name Role Phone ClarisseHaily MOSAIC TILE MAKER Primary Care Provider Gregoria Brooks RN Unavailable [phone] Latricia Houser Unavailable Reason for Visit * Reason Onset Date Comments Nurse Triage 02/11/2024 Encounter Details Date Type Department Care Team (Late st Contact Info) Description 02/11/2024 Telephone [facility] MEDICINE 230 [place], [place] [phone] ClarisseHaily FNP 230 [place], [place] [phone] Nurse Triage Social History Tobacco Use Types [...] EDT Triage call returned to patient with [place] logging crew foreman [phone]. Patient reports ongoing issue withleft eye and [...] and she would like him referred to [facility] Repair Cameraman. No diagnosis in chart.Advised of [facility] Walk In Center for evaluation today. [...] Reason: Other Override Notes: Being treated with biomedical specialist with appt coming in 03/11/24 Video [...] involuntary movements The caller accepted this outcome Malay speaker documented in this encounter Plan of Treatment Upcoming Encounters Date Type Department Care Team (Late st Contact Info) Description 07/15/2025 11:00 AM EST Office Visit [facility] MEDICINE 230 [place], [place] [phone] [place] FNP 230 [place] [address] documented as of this encounter Goals Goal Patient Goal Type Associated Problems Recent Progress Patient-Stated? Author Patient will adhere to medication regimen General No Mary Moreland documented as of this encounter Visit Diagnoses Not on filedocumented in this encounter Additional Health Concerns Assessment Noted Time PHQ-9 Depression Total Score: 0 08/15/20 23 3:52 PM EST documented as of this encounter Care Teams Wireless Architect Relationship Specialty Start Date End Date Clarisse Haily MOSAIC TILE MAKER 230 [place] [address] PCP - General Family Medicine 05/01/22 Gregoria Brooks, CHAGO 230 [place] [address] Registered Nurse Family Medicine 06/15/25 Latricia Houser 06/16/25 documented as of this encounter
--- OUTSIDE RECORDS SUMMARY | 2025-07-14 17:31 | XMS_ITS | Encounter Summary ---
Author Organization [employer] Address [address] [facility] [address] 7t [place] [address] Care Team Providers Care Quilt Stuffer Name Role Phone Clarisse [facility] Primary Care Provider [phone] Gregoria Brooks RN Unavailable [phone] Latricia Houser Unavailable Reason for Visit * Reason Comments Med Refill Encounter Details Date Type Department Care Team (Late st Contact Info) Description 05/31/[address] [facility] WALK[facility]IN [facility] 230 [place], [place] [phone] [place] 230 [place], [place] [phone] Restless leg Social History Tobacco Use Types [...] Description 07/15/2025 11:00 AM EST Office Visit [facility] MEDICINE 230 [place] [address] ClarisseHaily molina FNP 230 [place] [address] documented as of this encounter Goals Goal [...] documented as of this encounter Care Teams Quilt Stuffer Relationship Specialty Start Date End Date Haily RobbANETA 230 [place] [address] PCP - General Family Medicine 05/01/22 Gregoria Brooks RN 230 [place] [address] Registered Nurse Family Medicine 06/15/25 Latricia Houser 06/16/25 documented as of this encounter
--- OUTSIDE RECORDS SUMMARY | 2025-07-14 17:31 | XMS_ITS | Clinical Summary ---
Author Organization [employer] Address [address] [facility] [address] [place] [address] Care Team Providers Care Contact Center Team Lead Name Role Phone Clarisse [facility] Primary Care Provider [phone] Gregoria Brooks RN Unavailable [phone] Latricia Houser Unavailable Allergies Active Allergy [...] Active hydrOXYzine HCl (Atarax) 25 MG tabletIndications :Mixed anxiety and depressive disorder TAKE 1-2 TABLET BY MOUTH 1h AC procedure for anxiety, can repeat in 6h prn anxiety 4 tablet Active propranolol (Inderal) 40 MG tabletIndications :Other chest pain,Tachycardia Take 1 tablet (40 mg) by mouth every 12 (twelve) hours if needed (anxiety, rapid hr) for up to 15 days. 30 tablet 025 2024 Active hydrOXYzine HCl (Atarax) 25 MG tabletIndications [...] bedtime for mild pain. 40 tablet 1 2024 Discontinued(M ed list cleanup (will not [...] Active Problems Problem Noted Date Diagnosed Date Other chest pain 07/10/2025 Assessment & Plan (07/10/2025 3:26 PM EST): Orders: propranolol (Inderal) 40 MG tablet; Take 1 tablet (40 mg) by mouth every 12 (twelve) hours if needed (anxiety, rapid hr) for up to 15 days. 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 He has known DJD/DDD of the spine which is likely the reason for symptoms, I told her that he is very unlikely that he has DVT involvement of the spine. - Advised to follow-up with neurosurgery after MRI. - MRI of the spine scheduled for July 17, 2025, Advised to take hydroxyzine as needed prior to imaging. Assessment & Plan (04/27/2025 2:14 PM EDT): [...] Avoidance of pollen as much as possible. [place] of ophthalmic mast cell stabilizer, nasal steroid and antihistamine. LLQ pain 01/06/2025 Assessment & Plan (01/06/2025 11:25 AM EDT): No evidence of acute abdomen. Chronic. He needs colon cancer screening and has been referred to [facility] in the past. He was encouraged to call in November but did not. We called today to facilitate appointment and give him the number to call. ER precautions discussed. [facility] reports pt has to call himself due to cancelled and did not make follow up. He was given the number [phone]. I stressed the importance of following up [...] any case Continue Carafate Call GI at [place] for EGD and colonoscopy Eat small frequent [...] 03/2023 Established with therapy and psychiatry at [facility] No rash, fever, chills, lymphadenopathy Odynophagia 06/14/2023 [...] for anxiety sxs) that comes referred from [facility] for exacerbated anxiety in presence [...] a good support system through his family, buddhism and recovery network, as well as having [...] to explore potential nerve damage due to usp use of anxiolytics, even though John is on low dose medication. At this time is unclear if crawling/burning sensation on skin is solely due to medical and/or somatic presentation. However, sxs are causing significant psychological distress in patient. John was given information on how to reach out to [facility] team and [facility] numbers for crisis. He was also encouraged [...] in male 11/02/2022 Overview (11/02/2022): Followed by [facility] urology Dr. Lux subcutaneous testosterone injection Assessment [...] 04/03/24 CXR unremarkable 12/2023 Assessment & Plan (07/10/2025 3:08 PM EST): - Seen by [facility] TB clinic, he had no evidence of active pulmonary tuberculosis. Risk of future activation discussed. - Advised to communicate with clinic if decision changes regarding initiation of therapy, as of the last note, it looks like he was not ready for prophylactic Rx. - Risks and side effects: Risks of latent tuberculosis therapy with rifampin discussed. Assessment & Plan (01/06/2025 11:24 AM EDT): T spot positive 04/03/24 CXR unremarkable 12/2023 Pt missed Tb intake and denies knowing about this. We are calling Tb clinic and handing him the appointment/information to contact. I stressed the importance of this appointment. His appointment is at [facility] Tb clinic [phone] on January 27 at 11:00 am. He [...] depressive disorder 02/22/2017 Overview (08/05/2023): Followed by [facility] Clonazepam PRN Clonidine PRN Assessment & Plan (07/10/2025 3:12 PM EST): We had a lengthy discussions about patient's not taking medication regularly and staying constantly concerned about medical issues. I advised him to start taking Elavil and Seroquel nightly + duloxetine and follow-up with PCP or provider Patient feels safe at home and is able to reach out for safety Assessment & Plan (11/06/2022 5:05 AM EST): Spoke with [facility]-the blue conazepam tablets that patient prefer are from a different avionics electrical engineer and are on back order. Pt will [...] Encounters Date Type Department Care Team Description 07/14/2025 Orders Only GENERIC EXTERNAL DATA DEPARTMENT Provider, Generic External Data 07/14/2025 Travel 07/14/[address] [address] Haily Robb FNP Nurse Triage 07/13/2025 Patient Outreach [address] [address] Haily Robb FNP Care Management (C3CM- FOLLOW UP CALL/) 07/10/2025 11:20 AM EST [facility] [address] [address] Hoa Dueñas NP Other chest pain (Primary Dx); Tachycardia 07/10/[address] [address] Haily Robb FNP Results 07/10/2025 [facility] [address] [address] Hoa Dueñas NP Nurse Triage (CHEST PAIN) 07/10/2025 Travel 07/09/2025 9:00 AM EST Office Visit [address] [address] Francy Jennings MD High direct bilirubin (Primary Dx); Positive TB test; Mixed anxiety and depressive disorder; Chronic bilateral low back pain without sciatica; Screen for STD (sexually transmitted disease) 07/09/2025 Orders Only [facility] External Provider, [facility] 07/09/2025 Travel 07/08/2025 Telephone [facility] [address] [place] [address] Haily Robb FNP Nurse Triage 07/07/[address] [address] Haily Robb FNP Care Coordination 07/06/2025 Results Follow-Up [facility] [address] [address] Haily Robb FNP US Abdomen Complete 07/06/2025 Patient Outreach [address] [address] Haily Robb FNP Care Management 07/05/2025 Orders Only GENERIC EXTERNAL DATA DEPARTMENT Provider, Generic External Data 07/03/2025 1:00 PM EDT [facility] [address] [address] Jyoti Resendiz NP Acute left-sided thoracic back pain (Primary Dx); Other chest pain 07/03/2025 Travel 07/03/[address] [address] ClearwaterHaily molina SWING SAW OPERATOR ER Follow-up 07/02/2025 Orders Only GENERIC EXTERNAL DATA DEPARTMENT Provider, Generic External Data 07/01/2025 Patient Outreach [address] [address] Haily Robb FNP Care Management (C3CM- FOLLOW UP CALL) 06/30/2025 Patient Outreach [address] [address] ClearwaterHaily molina FNP Care Coordination (C3 CM-CHW Latricia Houser telephone call outreach/) 06/24/2025 2:40 PM EDT [facility] [address] [address] Hollis Rutledge MD Erythema (Primary Dx); Positive QuantiFERON-TB 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 06/24/2025 Results Follow-Up [facility] [address] [address] Hollis Rutledge MD XR Chest 2 Views 06/24/2025 Patient Outreach [address] [address] Lino Holder Recovery Supports 06/24/2025 Travel 06/24/[address] [address] Hermes Black, RN OBAT Communication 06/24/[address] [address] Haily Robb FNP Results 06/23/2025 Patient Outreach [address] [address] ClarisseHaily molina FNP Care Management (C3CM- FOLLOW UP CALL ) 06/23/2025 [facility] [address] [address] Roxana Gotti DO 06/22/2025 1:20 PM EDT [facility] [address] [address] Sanam Noland MD Acute non intractable tension-type headache; Palpitations; Left lower quadrant abdominal pain; Slow transit constipation 06/18/2025 Plan of Care Documentation [address] [address] 06/18/2025 Patient Outreach [address] [address] Haily Robb FNP Care Coordination 06/17/2025 Plan of Care Documentation [address] [address] 06/17/2025 Patient Outreach [address] [address] Haily Robb FNP Care Management (C3CM COMPLEX INITIAL ASSESSMENT/ ENROLLMENT-/) 06/16/2025 Patient Outreach [address] [address] Haily Robb FNP Care Coordination (C3 -[facility] Latricia Houser telephone call outreach) 06/16/2025 Patient Outreach [address] [address] Haily Robb FNP Care Coordination (C3 -[facility] Latricia Houser chart review) 06/16/2025 Patient Outreach [address] [address] Haily Robb FNP Care Management (C3 -CHART REVIEW ) 06/15/2025 Patient Outreach [address] [address] Haily Robb FNP 06/13/2025 Orders Only GENERIC EXTERNAL DATA DEPARTMENT Provider, Generic External Data 06/10/2025 2:00 PM EDT Office Visit [address] [address] Haily Robb FNP Somatic symptom disorder, persistent, moderate (Primary Dx); Latent tuberculosis; Encounter for immunization 06/10/2025 Travel 06/09/[address] [address] Haily Robb FNP 06/04/[address] [address] Haily Robb FNP 06/04/2025 Refill [facility] [address] [place] [address] Elda Love MD Seasonal allergies; Chronic nonintractable headache, unspecified headache type 06/03/2025 Refill [facility] [address] [place] [address] Haily Robb FNP Epigastric pain 06/03/2025 Refill [facility] [address] [place] [address] Roxana Gotti DO 06/03/2025 Patient Outreach [address] [address] Haily Robb FNP Pre-visit Planning (SDOH screening negative and tobacco screening negative) 06/03/2025 Refill [facility] [address] [place] [address] Haily Robb FNP Restless leg 06/02/2025 3:40 PM EDT Office Visit [facility] [address] [place] [address] Elda Love MD Acute URI (Primary Dx) 06/02/2025 Travel 05/31/2025 Refill [facility] [address] [place] [address] Haily Robb FNP Restless leg 05/27/2025 Refill [facility] [address] [place] [address] Jana Morgan MD Bilateral lower extremity edema 05/19/2025 Orders Only [address] [address] Sanam Noland MD Chronic bilateral low back pain without sciatica (Primary Dx) 05/19/[address] [address] Haily Robb FNP Med Refill 05/15/2025 10:00 AM EDT Office Visit [facility] [address] [place] [address] Collins Reyes MD Bloating (Primary Dx); Drug-induced constipation; Concern about diabetes mellitus without diagnosis 05/15/2025 Travel 05/14/2025 Refill [facility] [address] [place] [address] Roxana Gotti DO Epigastric pain 05/12/2025 9:20 AM EDT [facility] [address] [place] [address] Elda Love MD Chronic nonintractable headache, unspecified headache type 05/12/2025 Travel 05/08/2025 Telephone [facility] [address] [place] [address] [facility] Referral 05/05/2025 Telephone [facility] [address] [place] [address] [facility] Jun/jul recall 05/04/2025 Refill [facility] [address] [place] [address] [facility] Wheezing 05/02/2025 Refill [facility] [address] [place] [address] [facility] Mixed anxiety and depressive disorder; Wheezing 04/29/2025 Orders Only GENERIC EXTERNAL DATA DEPARTMENT Provider, Generic External Data 04/27/2025 1:40 PM EDT [facility] [address] [address] Sanam Noland MD Chronic bilateral low back pain without sciatica (Primary Dx); Chronic nonintractable headache, unspecified headache type 04/27/2025 Travel 04/21/2025 10:20 AM EDT [facility] [address] [place] [address] Collins Reyes MD Chronic nonintractable headache, unspecified [...] (135 lb) 07/10/2025 11:39 AM EST Height 172.7 cm (5' 8 ) 07/09/2025 8:51 AM EST Body Mass Index 20.53 07/09/2025 8:51 AM EST Plan of Treatment Upcoming Encounters Date Type Department Care Team (Late st Contact Info) Description 07/15/2025 11:00 AM EST Office Visit [facility] [address] [place] [address] [facility] [address] [place] [address] Health Maintenance Due Date Last Done Comments [...] Alcohol/Substance Use Screening 07/09/2026 07/09/2025 Tobacco Screening 07/10/2026 07/10/2025 Dental X-Ray: Full Mouth 09/12/2026 09/11/2023, 06/04 [...] Diagnosis Comments XR CHEST 2 VIEWS Routine 07/14/2025 1:12 PM EST HIGH SENSITIVITY TROPONIN I Routine 07/14/2025 1:08 PM EST COMPREHENSIVE METABOLIC PANEL Routine 07/14/2025 1:08 PM EST PROTHROMBIN TIME-INR Routine 07/14/2025 1:08 PM EST CBC WITH AUTO DIFFERENTIAL Routine 07/14/2025 1:08 PM EST ECG 12-LEAD Routine 07/10/2025 12:59 PM EST Other chest pain Tachycardia NT-PROBNP Routine 07/09/2025 12:11 PM EST HIGH SENSITIVITY TROPONIN I Routine 07/09/2025 12:11 PM EST COMPREHENSIVE METABOLIC PANEL Routine 07/09/2025 12:11 PM EST COVID-19 ID NOW ([facility]) Routine 07/09/2025 12:11 PM EST PROTHROMBIN TIME-INR Routine 07/09/2025 12:11 PM EST CBC WITH AUTO DIFFERENTIAL Routine 07/09/2025 12:11 PM EST INFLUENZA A B2 ID NOW ([facility]) Routine 07/09/2025 12:11 PM EST XR CHEST 2 VIEWS Routine 07/09/2025 11:5 2 AM EST URINALYSIS, COMPLETE Routine 07/09/2025 11:30 AM EST CULTURE, URINE, ROUTINE Routine 07/09/2025 11:30 AM EST CHLAMYDIA/TRICHOMONAS/ NEISSERIA GONORRHOEAE, PCR, URINE Routine 07/09/2025 10:00 AM EST LIPASE Routine 07/05/2025 3:10 PM [...] Maintenance Results * XR Chest 2 Views (07/14/2025 1:12 PM EST) Only the most recent of3 resultswithin the time period is included. Anatomical Region Laterality Modality Chest Radiographic Cecelia ging 07/14/2025 1:12 PM EST Narrative 07/14/2025 1:21 PM EST [place] [address] XRay Report Signed Patient: John Fitzpatrick MR#: [id number] : 1970 Acct:[id number] Age/Sex: 55 / M ADM Date: 07/14/25 Loc: .ED Attending Dr: Ordering Physician: Carlene Orellana NP Date of Service: 07/14/25 Procedure(s): XR chest 2V Accession Number(s): [id number] cc: Carlene Orellana FACILITIES MECHANICAL DESIGN ENGINEER; [facility] Reason for Exam: chest pain EXAMINATION: XR CHEST CLINICAL INFORMATION: chest pain COMPARISON: X-ray 07/09/2025 TECHNIQUE: 2 views of the chest were obtained. FINDINGS: The cardiomediastinal silhouette is within normal limits. The lungs are well expanded. There is no new focal consolidation. No edema, or effusion. No pneumothorax. No acute osseous abnormality. XR/XR chest 2V IMPRESSION: No evidence of acute pulmonary process. Electronically signed by: Rob Summers MD 07/14/2025 01:17 PM EST RP Dictated By: Rob Summers MD Signed By: <Electronically signed by Rob Summers MD in OV> 07/14/251316 DD/ TD/TT: 07/14/251314 Dining Room Supervisor: BINA Procedure Note Donotuseinterpreter, Image - 07/14/[address] [address] XRay Report Signed Patient: John Fitzpatrick AMR#: [id number] : 1970Acct:[id number] Age/Sex: 55 / MADM Date: 07/14/25 Loc: .ED Attending Dr: Ordering Physician: Carlene Orellana NP Date of Service: 07/14/25 Procedure(s): XR chest 2V Accession Number(s): [id number] cc: Carlene Orellana FACILITIES MECHANICAL DESIGN ENGINEER; [facility] Reason for Exam: chest pain EXAMINATION: XR CHEST CLINICAL INFORMATION: chest pain COMPARISON: X-ray 07/09/2025 TECHNIQUE: 2 views of the chest were obtained. FINDINGS: The cardiomediastinal silhouette is within normal limits. The lungs are well expanded. There is no new focal consolidation. No edema, or effusion. No pneumothorax. No acute osseous abnormality. XR/XR chest 2V IMPRESSION: No evidence of acute pulmonary process. Electronically signed by: Rob Summers MD 07/14/2025 01:17 PM EST RP Dictated By: Rob Summers MD Signed By: <Electronically signed by Rob Summers MD in OV> 07/14/251316 DD/ 11 TD/TT: 07/14/251314 Dining Room Supervisor: BINA [facility] External Provider IMG XR PROCEDURES Edited Result - Final * High Sensitivity Troponin I (07/14/2025 1:08 PM EST) Only the most recent of6 resultswithin the time period is included. Pathologist [facility] TROPONIN I HIGH SENSITIVITY 3.7 <3.5 - 35.0 ng/L [facility] Comment:The [facility] high sens itivity Troponin-I results should beused in conjunction with other diagnostic information suchas ECG, clinical observations and information, and patientsymptoms to aid in the diagnosis of MT. 07/14/2025 1:08 PM EST 07/14/2025 1:12 PM EST us Generic External Data Provider LAB BLOOD ORDERAB LES Final Result [facility] [address] [place] [phone] * (ABNORMAL) CBC auto differential (07/14/2025 1:08 PM EST) Only the most recent of6 resultswithin the time period is included. [facility] White Blood Count 5.3 4.8 - 10.8 X10*3/uL [facility] Red Blood Count 4.43(L) 4.60 - 5.80 X10*6/uL [facility] Hemoglobin 14.5 14.0 - 18.0 g/dl [facility] Hematocrit 41.8(L) 42.0 - 52.0 % [facility] Mean Corpuscular Volume 94.4 80.0 - 98.0 fL [facility] Mean Corpuscular Hemoglobin 32.7 27.0 - 33.0 pg [facility] Mean Corpuscular HGB Conc 34.7 31.0 - 36.0 g/dl [facility] Red Cell Distribution Width 11.5 11.0 - 16.0 % [facility] Platelet Count 206 160 - 400 X10*3/uL [facility] Mean Platelet Volume 10.3 9.4 - 12.4 fL [facility] Neutrophils Percent Auto 77.5(H) 45 - 73 % [facility] Imm Gran Pct Auto 0.2 0.0 - 0.4 % [facility] Lymphocytes Percent Auto 14.3(L) 20 - 40 % [facility] Monocytes Percent Auto 7.2 2 - 11 % [facility] Eosinophils Percent Auto 0.2 0 - 4 % [facility] Basophils Percent Auto 0.6 0 - 2 % [facility] NRBC Pct Auto 0.0 0.0 - 0.2 /100WBC [facility] Neutrophils Absolute Auto 4.1 2.0 - 8.3 x10*3/uL [facility] Imm Gran Abs Auto 0.01 0.00 - 0.03 X10*3/uL [facility] Lymphocytes Absolute Auto 0.8(L) 1.2 - 4.9 X10*3/uL [facility] Monocytes Absolute Auto 0.4 0.1 - 1.2 X10*3/uL [facility] Eosinophils Absolute Auto 0.0 0.0 - 0.4 X10*3/uL [facility] Basophils Absolute Auto 0.0 0.0 - 0.2 X10*3/uL [facility] NRBC Abs Auto 0.000 0.0 - 0.012 X10*3/uL [facility] 07/14/2025 1:08 PM EST 07/14/2025 1:12 PM EST us Generic External Data Provider LAB BLOOD ORDERAB LES Final Result Performing Organization Address City/State/[facility] Co de Phone Number [facility] [address] [place] [phone] * Prothrombin Time-INR (07/14/2025 1:08 PM EST) Only the most recent of2 resultswithin the time period is included. Prothrombin Time 12.8 11.2 - 13.5 SEC [facility] INTERNATIONAL NORM RATIO 1.0 0.9 - 1.1 [facility] Comment:INTERNATIONAL NORMAL IZED RATIO (INR) REFERENCE RANGES Reference RangeFor patients not on anticoagulant therapy: 0.9 - 1.1INR ranges for oral anticoagulanttherapy:For prevention and treatment of venous thrombosis and pulmonary embolism: 2.0 - 3.0For acute myocardial infarction with aspirin therapy: 2.0 - 3.0For acute myocardial infarction without aspirin therapy: 3.0 - 4.0For patients with mechanical prosthetic heart valves: 2.5 - 3.5 07/14/2025 1:08 PM EST 07/14/2025 1:12 PM EST us Generic External Data Provider LAB BLOOD ORDERAB LES Final Result [facility] [address] [place] [phone] * (ABNORMAL) Comprehensive Metabolic Panel (07/14/2025 1:08 PM EST) Only the most recent of3 resultswithin the time period is included. Sodium 140 135 - 145 mmol/L [facility] Potassium 3.4 3.3 - 5.1 mmol/L [facility] Chloride 104 96 - 108 mmol/L [facility] Carbon Dioxide 27 22 - 29 mmol/L [facility] Anion Gap 12 12 - 20 [facility] Urea Nitrogen (BUN) 16 9 - 16 mg/dL [facility] Creatinine, Serum 0.87 0.5 - 1.4 mg/dL [facility] Creatinine Clr Calc Pharmacy 79.3 [facility] Comment:eGFR (calculated fro m the MDRD study equation) and eCrCl(calculated from the Cockcroft-Gault equation) are based ondifferent parameters and may not yield comparable results.If eCrCl result is absurd, please check patient'sheight/weight. Estimated Glomerular Filt Rate >60 [facility] Comment:Chronic Kidney Disea se: Estimated GFR < 60 mL/min/1.67w0Fxotbg Kidney Disease: Estimated GFR < 15 mL/min/1.73m2 Glucose 127(H) 60 - 115 mg/dL [facility] Calcium 9.3 8.4 - 10.2 mg/dL [facility] Bilirubin, Total 1.5(H) 0.0 - 1.0 mg/dL [facility] Aspartate Amino Transferase 25 5 - 37 U/L [facility] Alanine Aminotransferase 27 0 - 40 U/L [facility] Total Protein 7.7 6.5 - 8.0 g/dL [facility] Albumin Level 5.0 3.5 - 5.0 g/dL [facility] Alkaline Phosphatase 45 39 - 117 U/L [facility] 07/14/2025 1:08 PM EST 07/14/2025 1:12 PM EST us Generic External Data Provider LAB BLOOD ORDERAB LES Final Result [facility] [address] [place] [phone] * ECG 12 lead (07/10/2025 12:59 PM EST) us Hoa Dueñas NP ECG ORDERABLES Final Result * Influenza A B2 ID NOW ([employer]) (07/09/2025 12:11 PM EST) Only the most recent of2 resultswithin the time period is included. IDNOW SERIAL# [id number] [facility] Influenza A Negative Negative [facility] Influenza B2 Negative Negative [facility] Influenza A B2 Note See Note [facility] Comment:The Lemon ID NOW In [...] GENERAL ORDERABLES Final Result Performing Organization Address City/[facility]/ZIP Co de Phone Number [facility] [address] [place] [address] [phone] * COVID-19 ID NOW ([facility]) (07/09/2025 12:11 PM EST) Only the most recent of3 resultswithin the time period is included. IDNOW SERIAL# [id number] [facility] COVID-19 TEST Negative Negative [facility] COVID-19 NOTE See Note [facility] Comment: Results are for the identification of SARS-CoV2 RNA. TheSARS-CoV2 RNA is generally detectable in respiratory samplesduring the acute phase of infection. Positive results areindicative of the presence of SARS-CoV-2 RNA; clinicalcorrelation with patient history and other diagnosticinformation is necessary to determine patient infectionstatus. Positive results do not rule out bacterial infectionor co- infection with other viruses.Testing facilities within the [facility] and itsterritories are required to report all [...] on the Lemon ID NOW utilizing NAAT. 07/09/2025 12:1 1 PM EST 07/09/2025 12:15 PM EST us Generic External Data Provider LAB MOLECULAR KATIUSKA GNOSTICS ORDERABLES Final Result Performing Organization Address City/[facility]/ZIP Co de Phone Number [facility] [address] [place] [address] [phone] * NT-proBNP (07/09/2025 12:11 PM EST) NT-proBNP <15.8 <300 pg/mL [facility] Comment:Reference Range:Age Group (years) NT-proBNP (pg/ml) InterpretationAll <300 Negative: HF unlikelyFor patients presenting to the ED with clinical suspicion ofnew onset or worsening HF, see below:18 to <50 >299.9 to <450.0 Grayzone: [id number] to 75 >299.9 to <900.0 other causes of>75 >299.9 to <1800.0 NT-proBNP [id number] to <50 >449.9 Positive: HF -97 >899.9>75 >1799.9Note: Elevated NT-proBNP levels should be interpreted inthe context of other clinical information. 07/09/2025 12:1 1 PM EST 07/09/2025 12:15 PM EST us Generic External Data Provider LAB BLOOD ORDERAB LES Final Result [facility] [address] [place] [phone] * (ABNORMAL) Urinalysis Complete (07/09/2025 11:30 AM EST) Color Urine Yellow [facility] Appearance Urine Clear [facility] PH 7.0 5.0 - 9.0 [facility] Glucose Urine UA Negative Negative mg/dL [facility] Urine Blood Negative Negative [facility] Specific [place] - Urine >=1.030(H) 1.005 - 1.025 [facility] Urine Protein Trace Neg-Trace mg/dL [facility] Urine Ketones Trace Negative mg/dL [facility] Nitrite Urine Negative Negative [facility] Leukocyte Esterase Urine Negative Negative [facility] RBC Urine 0-2 0 - 2 /HPF [facility] Urine WBC 0-5 0 - 5 /HPF [facility] Urine Squamous Epithelial Cell 0-2 0 - 2 /HPF [facility] CALCIUM OXALATE CRYSTAL, UR Present [facility] Urine Bacteria None Seen None Seen [facility] Hyaline Casts, Urine 0-2 0 - 2 /LPF [facility] 07/09/2025 11:3 0 AM EST 07/09/2025 12:25 PM EST Generic External Data Provider LAB URINE ORDERAB LES Final Result Performing Organization Address City/[facility]/ZIP Co de Phone Number [facility] [address] [place] [address] [phone] * Culture, Urine, Routine (07/09/2025 11:30 AM EST) Urine Urine specimen obtained by clean catch procedure / Unknown 07/09/2025 11:30 AM EST 07/09/2025 12:25 PM EST Comment:UACC Narrative [facility] - 07/10/2025 10:56 AM EST Urine Culture No growth. Specimen Source: Urine clean catch Generic External Data Provider LAB MICROBIOLOGY - GENERAL ORDERABLES Final Result Performing Organization Address City/[facility]/ZIP Co de Phone Number [facility] [address] [place] [phone] * Chlamydia/Trichomonas/Neisseria gonorrhoeae, PCR, Urine (07/09/2025 10:00 AM EST) CT PCR, Urine NOT DETECTED Not Detect. [facility] Comment:A not detected test result does not exclude the possibilityof infection because test results can be affected byimproper specimen collection, concurrent antibiotic therapy,or the number of organisms in the specimen which may bebelow the sensitivity of the test. As with many diagnostictests, results from the Xpert CT/NG assay should beinterpreted in conjunction with other laboratory andclinical data available to the clinician.The Xpert CT/NG assay should not be used for the evaluationof suspected sexual abuse or for other medico-legalindications. Additional testing is recommended in anycircumstance when false positive or false negative resultscould lead to adverse medical, social or psychologicalconsequences. NG PCR, Urine NOT DETECTED Not Detect. [facility] Comment:A not detected test result does not exclude the possibilityof infection because test results can be affected byimproper specimen collection, concurrent antibiotic therapy,or the number of organisms in the specimen which may bebelow the sensitivity of the test. As with many diagnostictests, results from the Xpert CT/NG assay should beinterpreted in conjunction with other laboratory andclinical data available to the clinician.The Xpert CT/NG assay should not be used for the evaluationof suspected sexual abuse or for other medico-legalindications. Additional testing is recommended in anycircumstance when false positive or false negative resultscould lead to adverse medical, social or psychologicalconsequences. 07/09/2025 10:0 0 AM EST 07/09/2025 4:34 PM EST Generic External Data Provider LAB URINE ORDERAB LES Final Result Performing Organization Address [facility] de Phone Number [facility] [address] [place] [phone] * Lipase (07/05/2025 3:10 PM EST) Only the most recent of2 resultswithin the time period is included. Pathologist [facility] Lipase 16 8 - 78 U/L [facility] 07/05/2025 3:10 PM EST 07/05/2025 3:28 PM EST Generic External Data Provider LAB BLOOD ORDERAB LES Final Result Performing Organization Address [facility] de Phone Number [facility] [address] [place] [phone] * (ABNORMAL) Hepatic Function Panel (07/05/2025 3:10 PM EST) Bilirubin, Total 1.3(H) 0.0 - 1.0 mg/dL [facility] Bilirubin, Direct 0.5 0.0 - 0.5 mg/dL [facility] Aspartate Amino Transferase 23 5 - 37 U/L [facility] Alanine Aminotransferase 20 0 - 40 U/L [facility] Total Protein 7.2 6.5 - 8.0 g/dL [facility] Albumin Level 4.8 3.5 - 5.0 g/dL [facility] Alkaline Phosphatase 47 39 - 117 U/L [facility] 07/05/2025 3:10 PM EST 07/05/2025 3:28 PM EST us Generic External Data Provider LAB BLOOD ORDERAB LES Final Result [facility] [address] [place] [address] [phone] * (ABNORMAL) Basic Metabolic Panel (07/05/2025 3:10 PM EST) Only the most recent of3 resultswithin the time period is included. Sodium 140 135 - 145 mmol/L [facility] Potassium 3.5 3.3 - 5.1 mmol/L [facility] Chloride 102 96 - 108 mmol/L [facility] Carbon Dioxide 27 22 - 29 mmol/L [facility] Anion Gap 15 12 - 20 [facility] Urea Nitrogen (BUN) 10 9 - 16 mg/dL [facility] Creatinine, Serum 0.83 0.5 - 1.4 mg/dL [facility] Creatinine Clr Calc Pharmacy 83.1 [facility] Comment:eGFR (calculated fro m the MDRD study equation) and eCrCl(calculated from the Cockcroft-Gault equation) are based ondifferent parameters and may not yield comparable results.If eCrCl result is absurd, please check patient'sheight/weight. Estimated Glomerular Filt Rate >60 [facility] Comment:Chronic Kidney Disea se: Estimated GFR < 60 mL/min/1.80g0Rdilfa Kidney Disease: Estimated GFR < 15 mL/min/1.73m2 Glucose 139(H) 60 - 115 mg/dL [facility] Calcium 9.0 8.4 - 10.2 mg/dL [facility] 07/05/2025 3:10 PM EST 07/05/2025 3:28 PM EST us Generic External Data Provider LAB BLOOD ORDERAB LES Final Result Performing Organization Address City/State/[facility] Co de Phone Number [facility] [address] [place] [phone] * US Abdomen Complete (07/03/2025 9:12 PM EDT) Anatomical Region Laterality Modality Abdomen Ultrasound 07/03/2025 9:12 PM EDT Narrative 07/03/2025 9:14 PM EDT [address] [address] Ultrasound Report Signed Patient: John Fitzpatrick MR#: [id number] : 1970 Acct:[id number] Age/Sex: 55 / M ADM Date: 07/03/25 Loc: HO.US Attending Dr: Roxana Gotti DO Ordering Physician: Roxana Gotti DO Date of Service: 07/03/25 Procedure(s): US abdomen complete Accession Number(s): [id number] cc: Roxana Gotti DO; [facility] Reason for Exam: epigastric pain CLINICAL HISTORY: [...] in OV> 07/03/252112 DD/ 11 TD/TT: 07/03/252111 Dining Room Supervisor: Procedure Note Donotuseinterpreter, Image - 07/03/2025 [place] [address] Ultrasound Report Signed Patient: John Fitzpatrick [facility]#: [id number] : 1970Acct:[id number] Age/Sex: 55 / MADM Date: 07/03/25 Loc: HO.US Attending Dr: Roxana Gotti DO Ordering Physician: Roxana Gotti DO Date of Service: 07/03/25 Procedure(s): US abdomen complete Accession Number(s): [id number] cc: Roxana Gotti DO; [facility] Reason for Exam: epigastric pain CLINICAL HISTORY: [...] document has been electronically signed by: Ac Rmaos MD on 07/03/2025 21:12:42 Dictated By: Ac Ramos MD Signed By: <Electronically signed by Ac Ramos MD in OV> 07/03/252112 DD/ 11 TD/TT: 07/03/252111 Dining Room Supervisor: us Roxana Gotti DO IMG US PROCEDURES Edited Res ult - Final * XR Chest 1 View (07/02/2025 3:55 PM EDT) Only the most recent of2 resultswithin the time period is included. Anatomical Region Laterality Modality Chest Radiographic Cecelia ging 07/02/2025 3:55 PM EDT Narrative 07/02/2025 4:06 PM EDT [place] [address] XRay Report Signed Patient: John Fitzpatrick MR#: [id number] : 1970 Acct:[id number] Age/Sex: 55 / M ADM Date: 07/02/25 Loc: HO.ED Attending Dr: Ordering Physician: Rah Dhaliwal Date of Service: 07/02/25 Procedure(s): XR chest 1V Accession Number(s): [id number] cc: Rah Dhaliwal; [facility] Reason for Exam: Couging. pnuemonia? EXAMINATION: XR [...] 07/02/25 1603 DD/ 1555 TD/TT: 07/02/25 155 Dining Room Supervisor: LUIS ANTONIO Procedure Note Donotuseinterpreter, Image - 07/02/2025 [place] [address] XRay Report Signed Patient: John Fitzpatrick [facility]#: [id number] : 1970Acct:[id number] Age/Sex: 55 / MADM Date: 07/02/25 Loc: .ED Attending Dr: Ordering Physician: Rah Dhaliwal Date of Service: 07/02/25 Procedure(s): XR chest 1V Accession Number(s): [id number] cc: Rah Dhaliwal; [facility] Reason for Exam: Couging. pnuemonia? EXAMINATION: XR [...] 07/02/25 1603 DD/ 1555 TD/TT: 07/02/25 155 Dining Room Supervisor: LUIS ANTONIO us [facility] External Provider IMG XR PROCEDURES Final Result * TSH W/Reflex to FT4 (06/22/2025 2:19 PM EDT) TSH reflex Free T4 1.82 0.32 - 4.0 uIU/mL [facility] Blood Venous blood specimen / Unknown 06/22/2025 2:19 PM EDT 06/22/2025 3:58 PM EDT Sanam Peacock MD LAB BLOOD ORDERABLES Final Result Performing Organization Address City/State/[facility] Co de Phone Number [facility] [address] [place] [phone] * XR KUB and Upright 2 Views (06/13/2025 1:48 PM EDT) Anatomical Region Laterality Modality Radiographic Cecelia ging 06/13/2025 1:48 PM EDT Narrative 06/13/2025 1:50 PM EDT [address] [address] XRay Report Signed Patient: John Fitzpatrick MR#: [id number] : 1970 Acct:[id number] Age/Sex: 55 / M ADM Date: 06/13/25 Loc: .ED Attending Dr: Ordering Physician: Fay Rosales Date of Service: 06/13/25 Procedure(s): XR KUB Accession Number(s): [id number] cc: Fay Rosales; [facility] Reason for Exam: constipation CLINICAL HISTORY: constipation [...] Andrade MD in OV> 06/13/25 1349 DD/ 47 TD/TT: 06/13/251347 Dining Room Supervisor: Procedure Note Marilyn, Image - 06/13/[address] [address] XRay Report Signed Patient: John Fitzpatrick [facility]#: [id number] : 1970Acct:[id number] Age/Sex: 55 / MADM Date: 06/13/25 Loc: .ED Attending Dr: Ordering Physician: Fay Rosales Date of Service: 06/13/25 Procedure(s): XR KUB Accession Number(s): [id number] cc: Fay Rosales; [facility] Reason for Exam: constipation CLINICAL HISTORY: constipation [...] Andrade MD in OV> 06/13/25 1349 DD/ 47 TD/TT: 06/13/251347 Dining Room Supervisor: us [facility] External Provider IMG XR PROCEDURES Final Result * Urinalysis w/reflex microscopic (06/13/2025 12:33 PM EDT) Color Urine Yellow [facility] Appearance Urine Clear [facility] PH 8.5 5.0 - 9.0 [facility] Glucose Urine UA Negative Negative mg/dL [facility] Urine Blood Negative Negative [facility] Specific [place] - Urine 1.020 1.005 - 1.025 [facility] Urine Protein Negative Neg-Trace mg/dL [facility] Urine Ketones Negative Negative mg/dL [facility] Nitrite Urine Negative Negative [facility] Leukocyte Esterase Urine Negative Negative [facility] 06/13/2025 12:3 3 PM EDT 06/13/2025 12:37 PM EDT Narrative [facility] - 06/13/2025 1:25 PM EDT [id number], Clean Catch Generic External Data Provider LAB URINE ORDERAB LES Final Result Performing Organization Address City/[facility]/ZIP Co de Phone Number [facility] [address] [place] [phone] * Magnesium (06/13/2025 12:28 PM EDT) Magnesium 1.9 1.6 - 2.6 mg/dL [facility] 06/13/2025 12:2 8 PM EDT 06/13/2025 12:31 PM EDT Generic External Data Provider LAB BLOOD ORDERAB LES Final Result Performing Organization Address [facility] Co de Phone Number [facility] [address] [place] [phone] * (ABNORMAL) POCT Hgb A1c (05/15/2025 10:34 AM EDT) Hemoglobin A1C 5.8(A) 4.0 - 5.7 % QC Media Lot # [id number] Lot# Expiration Date Blood 05/15/2025 10:3 4 AM EDT Collinsponcho Reyes MD POINT OF CARE TEST ENTER/EDIT OR DERABLES Final Result * POCT Glucose (05/15/2025 10:34 AM EDT) Pathologist [facility] Glucose Blood, POC 144 60 - 200 mg/dL QC Media Lot # [id number] Lot# Expiration Date Blood Capillary blood specimen / Unknown 05/15/2025 10:34 AM EDT us Collins Reyes MD POINT OF CARE TEST ENTER/EDIT OR DERABLES Final Result * CT Head w/o Contrast (04/29/2025 11:32 AM EDT) Anatomical Region Laterality Modality Head, Neck Computed Tomogra phy 04/29/2025 11:3 2 AM EDT Narrative 04/29/2025 12:15 PM EDT [place] [address] CT Scan Report Signed Patient: John Fitzpatrick MR#: [id number] : 1970 Acct:[id number] Age/Sex: 55 / M ADM Date: 04/29/25 Loc: HO.ED Attending Dr: Ordering Physician: Erik Montano DO Date of Service: 04/29/25 Procedure(s): CT head/brain wo IV con Accession Number(s): [id number] cc: Erik Montano DO; [facility] Report Number: [id number]: Total DLP = 672.00 mGy-cm EXAMINATION: CT [...] 04/29/25 1212 DD/ 1132 TD/TT: 04/29/25 1205 Dining Room Supervisor: Procedure Note Donotuseinterpreter, Image - 04/29/[address] [place] [address] [address] Scan Report Signed Patient: John Fitzpatrick [facility]#: [id number] : 1970Acct:[id number] Age/Sex: 55 / MADM Date: 04/29/25 Loc: HO.ED Attending Dr: Ordering Physician: Erik Montano DO Date of Service: 04/29/25 Procedure(s): CT head/brain wo IV con Accession Number(s): [id number] cc: Erik Montano DO; [facility] Report Number: [id number]: Total DLP = 672.00 mGy-cm EXAMINATION: CT [...] 04/29/25 1212 DD/ 1132 TD/TT: 04/29/25 1205 Dining Room Supervisor: [facility] External Provider IMG CT PROCEDURES Final Result * Hepatitis C Antibody with Reflex to HCV, RNA, Quantitative, Real-Time PCR (01/06/2025 10:11 AM EDT) Hepatitis C Antibody Nonreactive Nonreactive [facility] Comment:Antibodies to HCV no t detected; does not exclude early acuteHCV infection. Blood Venous blood specimen / Unknown 01/06/2025 10:11 AM EDT 01/06/2025 11:07 AM EDT Hoa Dueñas FACILITIES MECHANICAL DESIGN ENGINEER LAB BLOOD ORDERABLES Final Resul t [facility] [address] [place] [phone] * Lipid Panel, Standard (03/19/2024 9:34 AM EDT) Triglycerides 66 <150 mg/dL [facility] Comment:Desirable Triglyceri de: less than 150 mg/dLBorderline High Triglyceride 150-199 mg/dLHigh Triglyceride: 200-499 mg/dLVery High Triglyceride: greater than or equal to 5OO mg/dL Cholesterol 112 <200 mg/dL [facility] Comment:Desirable Cholestero l: less than 200 mg/dLBorderline High Cholesterol: 200-239 mg/dLHigh Cholesterol: greater than 239 mg/dL LDL Cholesterol Calculated 58 <100 mg/dL [facility] Comment:Desirable LDL: less than 100 mg/dLNear Optimal/Above Optimal LDL: 110- 129 mg/dLBorderline High LDL: 130-159 mg/dLHigh LDL: 160-189 mg/dLVery High LDL: greater than or equal to 190 mg/dL HDL Cholesterol 41 >40 mg/dL [facility] Comment:Desirable HDL: great er than 40 mg/dL Note: This HDL assay may give artificially low results in patients with liver disease. Blood Venous blood specimen / Unknown 03/19/2024 9:34 AM EDT 03/19/2024 11:12 AM EDT us Roxana Gotti DO LAB BLOOD ORDERABLES Final R esult Performing Organization Address [facility] Co de Phone Number [facility] [address] [place] [phone] * HIV-1 RNA, Quantitative, Real-Time PCR (03/22/2023 11:53 AM EDT) HIV RNA PCR Qn Copies NOT DETECTED NOT DETECTED copies/mL [facility] HIV RNA PCR Qn Log Copies NOT DETECTED NOT DETECTED [facility] Comment:Result Units: Log co pies/mLThis test was performed using Real-Time Polymerase ChainReaction.Reportable Range: 20 copies/mL to 10,000,000 copies/mL(1.30 log copies/mL to 7.00 log copies/mL).THIS TEST WAS PERFORMED AT:[facility] [place] [phone] GONG MD Blood Venous blood specimen / Unknown 03/22/2023 11:53 AM EDT 03/22/2023 1:32 PM EDT us Jessica Guillen SWING SAW OPERATOR LAB BLOOD ORDERABLES Final Res ult Performing Organization Address [facility]/State/ZIP Co de Phone Number [facility] [address] [place] [address] [phone] from Last 3 Months or Most Recently Relevant to Health Maintenance Insurance [facility] C3 DENTAL-[facility] MEDICAID STAND ADULT Care Teams Contact Center Team Lead Relationship Specialty Start Date End Date ClarisseHaily molina FNP [address] [place] [address] PCP - General Family Medicine 05/01/22 Gregoria Brooks, CHAGO [address] [place] [phone] Registered Nurse Family Medicine 06/15/25 Latricia Houser 06/16/25
--- OUTSIDE RECORDS SUMMARY | 2025-07-14 17:31 | XMS_ITS | Encounter Summary ---
Author Organization [employer] Address [address] [place] [address] Care Team Providers Care Skin Therapist Name Role Phone Clarisse [facility] Primary Care Provider Gregoria Brooks RN Unavailable [phone] Latricia Houser Unavailable Reason for Visit * Reason Onset Date Comments triage 11/10/2022 Encounter Details Date Type Department Care Team (Late st Contact Info) Description 11/10/2022 Telephone [facility] MEDICINE [address] [place], [place] [phone] ClarisseHaily [facility] [address] [place], [place] [phone] triage Social History Tobacco Use Types Packs/Day [...] in office. Pt agrees to come into [facility] for exam. Pt also advised to call [...] question The caller accepted this outcome speaks syriac documented in this encounter Plan of Treatment Upcoming Encounters Date Type Department Care Team (Late st Contact Info) Description 07/15/2025 11:00 AM EST Office Visit [facility] MEDICINE [address] [place], [place] [phone] Bl[place]Haily FNP [address] [place] [address] documented as of this encounter Visit Diagnoses Not on filedocumented in this encounter Additional Health Concerns Assessment Noted Time PHQ-9 Depression Total Score: 0 11/03/19 23 10:32 AM EST documented as of this encounter Care Teams Skin Therapist Relationship Specialty Start Date End Date BlufftonHaily [employer] WE[employer] RENTAL CLERK [address] [place] [address] PCP - General Family Medicine 05/01/22 Gregoria Brooks RN [address] [place] [address] Registered Nurse Family Medicine 06/15/25 Latricia Houser 06/16/25 documented as of this encounter
--- OUTSIDE RECORDS SUMMARY | 2025-07-14 17:31 | XMS_ITS | Encounter Summary ---
Author Organization [employer] Address [address] [place] [address] Care Team Providers Care Tankroom Worker Name Role Phone Clarisse [facility] Primary Care Provider Gregoria Brooks RN Unavailable Latricia Houser Unavailable Reason for Visit * Reason Onset Date Comments Triage 09/20/2022 Encounter Details Date Type Department Care Team (Late st Contact Info) Description 09/20/2022 Telephone [facility] MEDICINE [address] [place], [place] [phone] ClarisseHaily [facility] [address] [place], [place] [phone] Triage Social History Tobacco Use Types Packs/Day [...] 09/20/2022 11:55 AM EST Triage call with Major Transition Of Care Specialist ID [id number] Pt reports an area on back that [...] No high acuity concerns reported by caller YAKUT SPEAKER The caller accepted this outcome documented in this encounter Plan of Treatment Upcoming Encounters Date Type Department Care Team (Late st Contact Info) Description 07/15/2025 11:00 AM EST Office Visit [facility] MEDICINE [address] [place] [address] Haily Robb FNP [address] [place] [address] documented as of this encounter Visit Diagnoses Not on filedocumented in this encounter Care Teams Tankroom Worker Relationship Specialty Start Date End Date Haily Robb FNP [address] [place] [address] PCP - General Family Medicine 05/01/22 Gregoria Brooks RN [address] [place] [address] Registered Nurse Family Medicine 06/15/25 Latricia Houser 06/16/25 documented as of this encounter
--- OUTSIDE RECORDS SUMMARY | 2025-07-14 17:31 | XMS_ITS | Encounter Summary ---
Author Organization [employer] Address [address] [facility] [address] [place] [address] Care Team Providers Care Tongue Stitcher Name Role Phone Clarisse [facility] Primary Care Provider [phone] Gregoria Brooks RN Unavailable [phone] Latricia Houser Unavailable Reason for Visit * Reason Onset Date Comments Med Refill 12/13/2023 Encounter Details Date Type Department Care Team (Late st Contact Info) Description 12/13/2023 Telephone [facility] MEDICINE [address] [place], [place] [phone] ClarisseHaily [facility] [address] [place], [place] [phone] Med Refill Social History Tobacco Use Types [...] AM EDT Medication was sent to [facility] on 11/09/23 with 2 refills. * Telephone Encounter - Christine Taylor - 12/13/2023 10:19 AM EDT TC from pt requesting medication refill. Medications needing refill : melatonin 5 MG tablet To be sent to: [facility] - [place], [place] - [address] [facility] documented in this encounter Plan of Treatment Upcoming Encounters Date Type Department Care Team (Late st Contact Info) Description 07/15/2025 11:00 AM EST Office Visit [facility] MEDICINE [address] [place] [address] Haily Robb FNP [address] [place] [address] documented as of this encounter Visit Diagnoses Not on filedocumented in this encounter Additional Health Concerns Assessment Noted Time PHQ-9 Depression Total Score: 0 08/15/20 23 3:52 PM EST documented as of this encounter Care Teams Tongue Stitcher Relationship Specialty Start Date End Date Haily Robb FNP [address] [place] [phone] PCP - General Family Medicine 05/01/22 Gregoria Brooks RN [address] [place] [phone] Registered Nurse Family Medicine 06/15/25 Latricia Houser 06/16/25 documented as of this encounter
--- OUTSIDE RECORDS SUMMARY | 2025-07-14 17:31 | XMS_ITS | Encounter Summary ---
Author Organization [employer] Address 75 [facility] 7t [place] [address] Care Team Providers Care Heel Gummer Name Role Phone Haily Robb [facility] Primary Care Provider Gregoria Brooks RN Unavailable Latricia Houser Unavailable Encounter Details Date Type Department Care Team (Latest Contact Info) Description 06/01/2022 Abstract [facility] CONVERSIONS Dental, Provider, DDS Social History [...] 11:00 AM EST Office Visit [facility] MEDICINE 230 [place] [address] Haily Robb FNP 230 [place] [address] documented as of this encounter Visit Diagnoses Not on filedocumented in this encounter Care Teams Heel Gummer Relationship Specialty Start Date End Date Haily Robb FNP 230 [place] [address] PCP - General Family Medicine 05/01/22 Gregoria Brooks RN [address] [place] [address] Registered Nurse Family Medicine 06/15/25 Latricia Houser 06/16/25 documented as of this encounter
--- OUTSIDE RECORDS SUMMARY | 2025-07-14 17:31 | XMS_ITS | Encounter Summary ---
Author Organization [employer] Address 75 [facility] 7t [place] [address] Care Team Providers Care Forming Process Worker Name Role Phone Clarisse Haily MACHINE BUFFER Primary Care Provider [phone] Gregoria Brooks RN Unavailable [phone] Latricia Houser Unavailable Reason for Visit * Reason Comments Med Refill Encounter Details Date Type Department Care Team (Late st Contact Info) Description 04/02/2023 Refill [facility] MEDICINE 230 [place], [place] [phone] Juanjose Barton MD 230 [place], [place] [phone] Chronic pruritus Social History Tobacco Use Types [...] 07/15/2025 11:00 AM EST Office Visit [facility] MEDICINE 230 [place] [address] Haily Robb FNP 230 [place] [address] documented as of this encounter Visit Diagnoses Diagnosis Chronic pruritus documented in this encounter Additional Health Concerns Assessment Noted Time PHQ-9 Depression Total Score: 0 01/26/20 23 3:38 PM EDT documented as of this encounter Care Teams Forming Process Worker Relationship Specialty Start Date End Date Haily Robb FNP 230 [place] [address] PCP - General Family Medicine 05/01/22 Gregoria Brooks, CHAGO [address] [place] [address] Registered Nurse Family Medicine 06/15/25 Latricia Houser 06/16/25 documented as of this encounter
--- OUTSIDE RECORDS SUMMARY | 2025-07-14 17:31 | XMS_ITS | Clinical Summary ---
Author Organization [facility] Address [address] [place] [address] Phone Care Team Providers Care Scroll Saw Operator Name Role Phone [facility] Primary Care Provider [phone] Medications polyethylene glycol (Golytely) 236-22.74-6.74 -5.86 gram [...] Depression Screening 09/03/2024 COVID-19 Vaccine (1 - 2024-2 6 season) 2025 Influenza Vaccine (#1) 2025 RSV [...] Phone Billing Address Personal/Family Self 1970 [address] [facility] [address] [place] [address] MEDICA[place] Care Teams Scroll Saw Operator Relationship Specialty Start Date End Date HobbsHaily [address] [address] PCP - General 05/20/24
--- OUTSIDE RECORDS SUMMARY | 2025-07-14 17:31 | XMS_ITS | Encounter Summary ---
Author Organization [employer] Address [address] [facility] [address] 7t [place] [address] Care Team Providers Care Supervisor Brew House Name Role Phone Clarisse [facility] Primary Care Provider [phone] Gregoria Brooks RN Unavailable [phone] Latricia Houser Unavailable Reason for Visit * Reason Comments Med Refill Encounter Details Date Type Department Care Team (Late st Contact Info) Description 07/08/2024 Refill [facility] MEDICINE 230 [place], [place] [phone] [place] Haily [facility] 230 [place], [place] [phone] Mixed anxiety and depressive disorder Social History [...] Upcoming Encounters Date Type Department Care Team ([facility] st Contact Info) Description 07/15/2025 11:00 AM EST Office Visit [facility] MEDICINE [address] [place] [address] ClarisseHaily FNP 230 [place] [address] documented as of this encounter Goals Goal [...] as of this encounter Care Teams Supervisor Brew House Relationship Specialty Start Date End Date Haily Robb FNP 230 [place] [address] PCP - General Family Medicine 05/01/22 Gregoria Brooks RN [address] [place] [address] Registered Nurse Family Medicine 06/15/25 Latricia Houser 06/16/25 documented as of this encounter
--- OUTSIDE RECORDS SUMMARY | 2025-07-14 17:31 | XMS_ITS | Encounter Summary ---
Author Organization [employer] Address 75 [facility] 7t [place] [address] Care Team Providers Care Sampler And Test Preparer Name Role Phone Clarisse [facility] Primary Care Provider [phone] Gregoria Brooks RN Unavailable [phone] Latricia Houser Unavailable Reason for Visit * Reason Onset Date Comments Medication Question 01/16/2023 Encounter Details Date Type Department Care Team (Late st Contact Info) Description 01/16/2023 Telephone [facility] MEDICINE 230 [place], [place] [phone] [place] [facility] 230 [place], [place] [phone] Medication Question Social History Tobacco Use Types [...] Visit [facility] MEDICINE [address] [place] [address] Haily Robb FNP [address] [place] [address] documented as of this encounter Visit Diagnoses Not on filedocumented in this encounter Additional Health Concerns Assessment Noted Time PHQ-9 Depression Total Score: 0 11/03/19 10:32 AM EST documented as of this encounter Care Teams Sampler And Test Preparer Relationship Specialty Start Date End Date Haily Robb FNP 230 [place] [address] PCP - General Family Medicine 05/01/22 Gregoria Brooks, CHAGO [address] [place] [address] Registered Nurse Family Medicine 06/15/25 Latricia Houser 06/16/25 documented as of this encounter
--- OUTSIDE RECORDS SUMMARY | 2025-07-14 17:31 | XMS_ITS | Encounter Summary ---
Author Organization [employer] Address 75 [facility] 7t [place] [address] Care Team Providers Care High Value Associate Name Role Phone Haily Robb PIPE THREADER Primary Care Provider [phone] Gregoria Brooks RN Unavailable [phone] Latricia Houser Unavailable Reason for Visit * Reason Comments Med Refill Encounter Details Date Type Department Care Team (Late st Contact Info) Description 04/02/2023 Refill [facility] 230 [place], [place] [phone] Hollis Rutledge MD 230 [place], [place] [phone] Social History Tobacco Use Types Packs/Day Years [...] Description 07/15/2025 11:00 AM EST Office Visit [facility] 230 [place] [address] Haily Robb FNP 230 [place] [address] documented as of this encounter Visit Diagnoses Not on filedocumented in this encounter Additional Health Concerns Assessment Noted Time PHQ-9 Depression Total Score: 0 01/26/20 23 3:38 PM EDT documented as of this encounter Care Teams High Value Associate Relationship Specialty Start Date End Date Haily Robb FNP 230 [place] [address] PCP - General Family Medicine 05/01/22 Gregoria Brooks, RN [address] [place] [address] Registered Nurse Family Medicine 06/15/25 Latricia Houser 06/16/25 documented as of this encounter
--- OUTSIDE RECORDS SUMMARY | 2025-07-14 17:31 | XMS_ITS | Encounter Summary ---
Author Organization [id number] Address 75 [facility] 7t [place] [address] Care Team Providers Care Weights And Measures Sealer Name Role Phone Clarisse [facility] Primary Care Provider [phone] Gregoria Brooks RN Unavailable [phone] Latricia Houser Unavailable Reason for Visit * Reason Comments Med Refill Encounter Details Date Type Department Care Team (Late st Contact Info) Description 01/01/2023 Refill [facility] MEDICINE 230 [place], [place] [phone] [place] Haily [facility] 230 [place], [place] [phone] Chronic sinusitis, unspecified location Social History Tobacco [...] 07/15/2025 11:00 AM EST Office Visit [facility] MEDICINE [address] [place] [address] Haily Robb FNP 230 [place] [address] documented as of this encounter Visit Diagnoses Diagnosis Chronic sinusitis, unspecified location documented in this encounter Additional Health Concerns Assessment Noted Time PHQ-9 Depression Total Score: 0 11/03/19 23 10:32 AM EST documented as of this encounter Care Teams Weights And Measures Sealer Relationship Specialty Start Date End Date Haily Robb FNP [address] [place] [address] PCP - General Family Medicine 05/01/22 Gregoria Brooks RN [address] [place] [address] Registered Nurse Family Medicine 06/15/25 Latricia Houser 06/16/25 documented as of this encounter
--- OUTSIDE RECORDS SUMMARY | 2025-07-14 17:31 | XMS_ITS | Encounter Summary ---
Author Organization [employer] Address [address] [facility] [address] 7t [place] [address] Care Team Providers Care Womens Volleyball Coach Name Role Phone Clarisse, [facility] Primary Care Provider [phone] Gregoria Brooks RN Unavailable [phone] Latricia Houser Unavailable Encounter Details Date Type Department Care Team (Late st Contact Info) Description 06/04/2025 Telephone [facility] MEDICINE 230 [place], [place] [phone] [place], [place] [facility] 230 [place], [place] [phone] Social History Tobacco Use Types Packs/Day Years [...] Upcoming Encounters Date Type Department Care Team ([facility] st Contact Info) Description 07/15/2025 11:00 AM EST Office Visit [facility] MEDICINE 230 [place] [address] [facility] 230 [place] [address] documented as of this encounter Goals Goal Patient Goal Type Associated Problems Recent Progress Patient-Stated? Author Patient will adhere to medication regimen General No Mary Moreland documented as of this encounter Visit Diagnoses Not on filedocumented in this encounter Additional Health Concerns Assessment Noted Time PHQ-9 Depression Total Score: 21 025 3:59 PM EDT documented as of this encounter Care Teams Womens Volleyball Coach Relationship Specialty Start Date End Date [place] molina CENTRIFUGAL SPINNER 230 [place] [address] PCP - General Family Medicine 05/01/22 Gregoria Brooks RN 230 [place] [address] Registered Nurse Family Medicine 06/15/25 Latricia Houser 06/16/25 documented as of this encounter
--- OUTSIDE RECORDS SUMMARY | 2025-07-14 17:31 | XMS_ITS | Encounter Summary ---
Author Organization [employer] Address 75 [facility] 7t [place] [address] Care Team Providers Care Casino Beverage Server Name Role Phone [facility] Primary Care Provider [phone] Gregoria Brooks RN Unavailable [phone] Latricia Houser Unavailable Reason for Visit * Reason Comments Med Refill Encounter Details Date Type Department Care Team (Late st Contact Info) Description 09/05/2022 Telephone [facility] MEDICINE 230 [place], [place] [phone] [facility] 230 [place] [address] Med Refill Social History Tobacco Use Types [...] - 09/06/2022 8:18 AM EST TC via P/I#[id number], explained to pt that his Clonazepam was prescribed from his psychiatric providerat [address] [facility] Teresita Kruegere Madyson MSN. Provided pt the phone number for the [facility] site and encouraged him to call them for all refills of his Clonazepam. Pt thanked signwriter and said he understood. * Telephone Encounter - Yessi Cannon RN - 09/05/2022 3:04 PM EST Note on 08/02/22: Medication request:CLONAZEPAM Last visit 06/27/22. You sent a refill in June, it was picked up 07/12/22. He was originally getting this elsewhere. Not sure what you'd like to do. If you'll now be prescribing, then would you like him on [employer]? documented in this encounter Plan of Treatment Upcoming Encounters Date Type Department Care Team (Late st Contact Info) Description 07/15/2025 11:00 AM EST Office Visit [facility] [address] [place] [address] [facility] 230 [place] [address] documented as of this encounter Visit Diagnoses Diagnosis Other specified anxiety disorders documented in this encounter Care Teams Casino Beverage Server Relationship Specialty Start Date End Date [facility] 230 [place] [address] PCP - General Family Medicine 05/01/22 Gregoria Brooks RN 230 [place] [address] Registered Nurse Family Medicine 06/15/25 Latricia Houser 06/16/25 documented as of this encounter
--- OUTSIDE RECORDS SUMMARY | 2025-07-14 17:31 | XMS_ITS | Encounter Summary ---
Author Organization [employer] Address 75 [facility] 7t [place] [address] Care Team Providers Care Instructional Technology Coordinator Name Role Phone Clarisse [facility] Primary Care Provider Gregoria Brooks RN Unavailable [phone] Latricia Houser Unavailable Reason for Visit * Reason Onset Date Comments Nurse Triage 02/16/2023 Encounter Details Date Type Department Care Team (Late st Contact Info) Description 02/16/2023 Telephone [facility] MEDICINE 230 [place], [place] [phone] ClarisseHaily [facility] 230 [place], [place] [phone] Nurse Triage Social History Tobacco Use Types [...] - 02/23/2023 2:49 PM EDT T/C to [phone] through [employer] interpreters id - [id number] for below message, pt. Verbally agreed and understood. * Telephone Encounter - Angela Whitman LPN - 02/16/2023 2:48 PM EDT Triage call returned to patient via [employer] Applic[employer] [id number]. Patient called with concerns of Left eye burning and tearing at times with blurred vision. No irritant or object in eye at this time. Patient reports that he was seen some time ago in [facility] and was given order to obtain eye drops for dry eye. He is angry that he had to pay for them out of pocket and that they did not help. Patient requesting specifically a referral and declines appts. in [facility] or with Team providers later in the [...] suggested disposition Override Notes: Patient seen in [facility] and was told to use eye drops several months ago. Patient requesting only referral to Consulting Networking Engineer. Video visit not offered Positive Triage Question: [...] The caller accepted this outcome Patient speaks romansh documented in this encounter Plan of Treatment Upcoming Encounters Date Type Department Care Team (Late st Contact Info) Description 07/15/2025 11:00 AM EST Office Visit [facility] MEDICINE 230 [place] [address] [place] FNP 230 [place] [address] documented as of this encounter Visit Diagnoses Not on filedocumented in this encounter Additional Health Concerns Assessment Noted Time PHQ-9 Depression Total Score: 0 01/26/20 23 3:38 PM EDT documented as of this encounter Care Teams Instructional Technology Coordinator Relationship Specialty Start Date End Date Haily Robb FNP [address] [place] [address] PCP - General Family Medicine 05/01/22 Gregoria Brooks, CHAGO [address] [place] [address] Registered Nurse Family Medicine 06/15/25 Latricia Houser 06/16/25 documented as of this encounter
--- OUTSIDE RECORDS SUMMARY | 2025-07-14 17:31 | XMS_ITS | Encounter Summary ---
Author Organization [employer] Address 75 [facility] 7t [place] [address] Care Team Providers Care Bark Peeler Name Role Phone Haily Robb IMCU NURSE Primary Care Provider Gregoria Brooks RN Unavailable [phone] Latricia Houser Unavailable Encounter Details Date Type Department Care Team (Latest Contact Info) Description 06/16/2020 Abstract [facility] CONVERSIONS Dental, Provider, DDS Social History Tobacco [...] Description 07/15/2025 11:00 AM EST Office Visit [facility] MEDICINE 230 [place] [address] Haily Robb FNP 230 [place] [address] documented as of this encounter Visit Diagnoses Not on filedocumented in this encounter Care Teams Bark Peeler Relationship Specialty Start Date End Date Haily Robb FNP 230 [place] [address] PCP - General Family Medicine 05/01/22 Gregoria Brooks RN [address] [place] [address] Registered Nurse Family Medicine 06/15/25 Latricia Houser 06/16/25 documented as of this encounter
--- OUTSIDE RECORDS SUMMARY | 2025-07-14 17:31 | XMS_ITS | Encounter Summary ---
Author Organization [employer] Address 75 [facility] 7t [place] [address] Care Team Providers Care Interactive Designer Name Role Phone Haily Robb DISTRICT OR DISTRICT OFFICE DIRECTOR Primary Care Provider Gregoria Brooks RN Unavailable [phone] Latricia Houser Unavailable Reason for Visit * Reason Onset Date Comments Appointment Request 10/08/2023 Encounter Details Date Type Department Care Team (Late st Contact Info) Description 10/08/2023 Telephone [facility] MEDICINE 230 [place], [place] [phone] Haily Robb FNP 230 [place], [place] [phone] Appointment Request Social History Tobacco Use Types [...] gotten any better. Please contact pt at [phone] documented in this encounter Plan of Treatment Upcoming Encounters Date Type Department Care Team (Late st Contact Info) Description 07/15/2025 11:00 AM EST Office Visit [facility] MEDICINE 230 [place] [address] Haily Robb FNP 230 [place] [address] documented as of this encounter Visit Diagnoses Not on filedocumented in this encounter Additional Health Concerns Assessment Noted Time PHQ-9 Depression Total Score: 0 08/15/20 23 3:52 PM EST documented as of this encounter Care Teams Interactive Designer Relationship Specialty Start Date End Date Haily Robb FNP 230 [place] [address] PCP - General Family Medicine 05/01/22 Gregoria Brooks RN 230 [place] [address] Registered Nurse Family Medicine 06/15/25 Latricia Houser 06/16/25 documented as of this encounter
--- OUTSIDE RECORDS SUMMARY | 2025-07-14 17:32 | XMS_ITS | Encounter Summary ---
Author Organization [employer] Address 75 [facility] 7t [place] [address] Care Team Providers Care Chain Pegger Name Role Phone Clarisse Haily CUSTOMS AND BORDER PROTECTION OFFICER Primary Care Provider [phone] Gregoria Brooks RN Unavailable [phone] Latricia Houser Unavailable Encounter Details Date [...] 11:00 AM EST Office Visit [facility] MEDICINE 230 [place] [address] [facility] 230 [place] [address] documented as of this encounter Goals Goal Patient Goal Type Associated Problems Recent Progress Patient-Stated? Author Patient will adhere to medication regimen General Mary Chauhan documented as of this encounter Visit Diagnoses Not on filedocumented in this encounter Additional Health Concerns Assessment Noted Time PHQ-9 Depression Total Score: 8 06/17/20 25 11:48 AM EDT documented as of this encounter Care Teams Chain Pegger Relationship Specialty Start Date End Date [facility] [address] [place] [address] PCP - General Family Medicine 05/01/22 Gregoria Brooks RN [address] [place] [address] Registered Nurse Family Medicine 06/15/25 Latricia Houser 06/16/25 documented as of this encounter
--- OUTSIDE RECORDS SUMMARY | 2025-07-14 17:32 | XMS_ITS | Encounter Summary ---
Author Organization [employer] Address [address] [facility] [address] [place] [address] Care Team Providers Care Bank Worker Name Role Phone Clarisse Haily WE[employer]ERN [employer] BLOCKER Primary Care Provider [phone] Gregoria Brooks RN Unavailable [phone] Latricia Houser Unavailable Encounter Details Date Type Department Care Team (Late st Contact Info) Description 07/14/2025 Orders Only GENERIC EXTERNAL DATA [...] Description 07/15/2025 11:00 AM EST Office Visit [facility] [address] [place] [address] [facility] [address] [place] [address] documented as of this encounter Goals Goal Patient Goal Type Associated Problems Recent Progress Patient-Stated? Author Patient will adhere to medication regimen General No Mary Moreland documented as of this encounter Procedures Procedure Name Priority Date/Time Associated Diagnosis Comments XR CHEST 2 VIEWS Routine 07/14/2025 1:12 PM EST HIGH SENSITIVITY TROPONIN I Routine 07/14/2025 1:08 PM EST CBC WITH AUTO DIFFERENTIAL Routine 07/14/2025 1:08 PM EST PROTHROMBIN TIME-INR Routine 07/14/2025 1:08 PM EST COMPREHENSIVE METABOLIC PANEL Routine 07/14/2025 1:08 PM EST documented in this encounter Results * XR Chest 2 Views (07/14/2025 1:12 PM EST) Anatomical Region Laterality Modality Chest Radiographic Cecelia ging 07/14/2025 1:12 PM EST Narrative 07/14/2025 1:21 PM EST [address] [address] XRay Report Signed Patient: John Fitzpatrick MR#: [id number] : 1970 Acct:[id number] Age/Sex: 55 / M ADM Date: 07/14/25 Loc: .ED Attending Dr: Ordering Physician: Carlene Orellana NP Date of Service: 07/14/25 Procedure(s): XR chest 2V Accession Number(s): [id number] cc: Carlene Orellana HEMODIALYSIS TECHNICIAN; [facility] Reason for Exam: chest pain EXAMINATION: XR [...] signed by Rob Summers MD in OV> 07/14/25 1317 DD/ 1312 TD/TT: 07/14/25 1315 Pot Feeder: Procedure Note Donotuseinterpreter, Image - 07/14/[address] [address] XRay Report Signed Patient: John Fitzpatrick [facility]#: [id number] : 1970Acct:[id number] Age/Sex: 55 / MADM Date: 07/14/25 Loc: HO.ED Attending Dr: Ordering Physician: Carlene Orellana NP Date of Service: 07/14/25 Procedure(s): XR chest 2V Accession Number(s): [id number] cc: Carlene Orellana HEMODIALYSIS TECHNICIAN; [facility] Reason for Exam: chest pain EXAMINATION: XR [...] Rob Summers MD 07/14/2025 01:17 PM EST Dictated By: Rob Summers MD Signed By: <Electronically signed by Rob Summers MD in OV> 07/14/25 1317 DD/ 1312 TD/TT: 07/14/25 1315 Pot Feeder: [facility] [employer] External Provider IMG XR PROCEDURES Edited Result - Final * High Sensitivity Troponin I (07/14/2025 1:08 PM EST) TROPONIN I HIGH SENSITIVITY 3.7 <3.5 - 35.0 ng/L [facility] Comment:The Tello high sens itivity Troponin-I results should beused in conjunction with other diagnostic information suchas ECG, clinical observations and information, and patientsymptoms to aid in the diagnosis of NM. 07/14/2025 1:08 PM EST 07/14/2025 1:12 PM EST us Generic External Data Provider LAB BLOOD ORDERAB LES Final Result [facility] [address], [place] [phone] * (ABNORMAL) Comprehensive Metabolic Panel (07/14/2025 1:08 PM EST) Sodium 140 135 - 145 mmol/L [facility] Potassium 3.4 3.3 - 5.1 mmol/L [facility] Chloride 104 96 - 108 mmol/L [facility] Carbon Dioxide 27 22 - 29 mmol/L [facility] Anion Gap 12 12 - 20 [facility] Urea Nitrogen (BUN) 16 9 - 16 mg/dL [facility] Creatinine, Serum 0.87 0.5 - 1.4 mg/dL [facility] Creatinine Clr Calc Pharmacy 79.3 [facility] Comment:eGFR (calculated fro m the MDRD study equation) and eCrCl(calculated from the Cockcroft-Gault equation) are based ondifferent parameters and may not yield comparable results.If eCrCl result is absurd, please check patient'sheight/weight. Estimated Glomerular Filt Rate >60 [facility] Comment:Chronic Kidney Disea se: Estimated GFR < 60 mL/min/1.81y2Mpunqz Kidney Disease: Estimated GFR < 15 mL/min/1.73m2 Glucose 127(H) 60 - 115 mg/dL [facility] Calcium 9.3 8.4 - 10.2 mg/dL [facility] Bilirubin, Total 1.5(H) 0.0 - 1.0 mg/dL [facility] Aspartate Amino Transferase 25 5 - 37 U/L [facility] Alanine Aminotransferase 27 0 - 40 U/L [facility] Total Protein 7.7 6.5 - 8.0 g/dL [facility] Albumin Level 5.0 3.5 - 5.0 g/dL [facility] Alkaline Phosphatase 45 39 - 117 U/L [facility] 07/14/2025 1:08 PM EST 07/14/2025 1:12 PM EST Generic External Data Provider LAB BLOOD ORDERAB LES Final Result Performing Organization Address [facility] Co de Phone Number [facility] [address] [place] [phone] * Prothrombin Time-INR (07/14/2025 1:08 PM EST) [facility] Prothrombin Time 12.8 11.2 - 13.5 SEC [facility] INTERNATIONAL NORM RATIO 1.0 0.9 - 1.1 [facility] Comment:INTERNATIONAL NORMAL IZED RATIO (INR) [...] 1:08 PM EST 07/14/2025 1:12 PM EST [employer] External Data Provider LAB BLOOD ORDERAB LES Final Result Performing Organization Address [facility] de Phone Number [facility] [address] [place] [phone] * (ABNORMAL) CBC auto differential (07/14/2025 1:08 PM EST) [facility] White Blood Count 5.3 4.8 - 10.8 X10*3/uL [facility] Red Blood Count 4.43(L) 4.60 - 5.80 X10*6/uL [facility] Hemoglobin 14.5 14.0 - 18.0 g/dl [facility] Hematocrit 41.8(L) 42.0 - 52.0 % [facility] Mean Corpuscular Volume 94.4 80.0 - 98.0 fL [facility] Mean Corpuscular Hemoglobin 32.7 27.0 - 33.0 pg [facility] Mean Corpuscular HGB Conc 34.7 31.0 - 36.0 g/dl [facility] Red Cell Distribution Width 11.5 11.0 - 16.0 % [facility] Platelet Count 206 160 - 400 X10*3/uL [facility] Mean Platelet Volume 10.3 9.4 - 12.4 fL [facility] Neutrophils Percent Auto 77.5(H) 45 - 73 % [facility] Imm Gran Pct Auto 0.2 0.0 - 0.4 % [facility] Lymphocytes Percent Auto 14.3(L) 20 - 40 % [facility] Monocytes Percent Auto 7.2 2 - 11 % [facility] Eosinophils Percent Auto 0.2 0 - 4 % [facility] Basophils Percent Auto 0.6 0 - 2 % [facility] NRBC Pct Auto 0.0 0.0 - 0.2 /100WBC [facility] Neutrophils Absolute Auto 4.1 2.0 - 8.3 x10*3/uL [facility] Imm Gran Abs Auto 0.01 0.00 - 0.03 X10*3/uL [facility] Lymphocytes Absolute Auto 0.8(L) 1.2 - 4.9 X10*3/uL [facility] Monocytes Absolute Auto 0.4 0.1 - 1.2 X10*3/uL [facility] Eosinophils Absolute Auto 0.0 0.0 - 0.4 X10*3/uL [facility] Basophils Absolute Auto 0.0 0.0 - 0.2 X10*3/uL [facility] NRBC Abs Auto 0.000 0.0 - 0.012 X10*3/uL [facility] 07/14/2025 1:08 PM EST 07/14/2025 1:12 PM EST us Generic External Data Provider LAB BLOOD ORDERAB LES Final Result [facility] [address] [place] [phone] documented in this encounter Visit Diagnoses Not on filedocumented in this encounter Additional Health Concerns Assessment Noted Time PHQ-9 Depression Total Score: 8 06/17/20 25 11:48 AM EDT documented as of this encounter Care Teams Bank Worker Relationship Specialty Start Date End Date Haily Robb FNP [address] [place] [address] PCP - General Family Medicine 05/01/22 Gregoria Brooks, CHAGO [address] [place] [address] Registered Nurse Family Medicine 06/15/25 Latricia Houser 06/16/25 documented as of this encounter
--- OUTSIDE RECORDS SUMMARY | 2025-07-14 17:32 | XMS_ITS | Encounter Summary ---
Author Organization [employer] Address [address] [facility] [address] [place] [address] Care Team Providers Care Seeing Eye Dog Trainer Name Role Phone Haily Robb FREELANCE DESIGNER Primary Care Provider [phone] Gregoria Brooks RN Unavailable [phone] Latricia Houser Unavailable Encounter Details Date Type Department Care Team (Late st Contact Info) Description 07/09/2025 Orders Only [facility] External Provider, [facility] Social History Tobacco Use Types Packs/Day [...] Visit [facility] [address] [place] [address] [facility] [address] [place] [address] documented as of this encounter Goals Goal Patient Goal Type Associated Problems Recent Progress Patient-Stated? Author Patient will adhere to medication regimen General No Mary Moreland documented as of this encounter Procedures Procedure Name Priority Date/Time Associated Diagnosis Comments INFLUENZA A B2 ID NOW (LEMON) Routine 07/09/2025 12:11 PM EST COVID-19 ID NOW (LEMON) Routine 07/09/2025 12:11 PM EST HIGH SENSITIVITY [...] PCR, URINE Routine 07/09/2025 10:00 AM EST documented in this encounter Results * NT-proBNP (07/09/2025 12:11 PM EST) NT-proBNP <15.8 <300 pg/mL [facility] Comment:Reference Range:Age Group (years) NT-proBNP (pg/ml) InterpretationAll <300 Negative: HF unlikelyFor patients presenting to the ED with clinical suspicion ofnew onset or worsening HF, see below:18 to <50 >299.9 to <450.0 Grayzone: Otgfnuaj21 to 75 >299.9 to <900.0 other causes of>75 >299.9 to <1800.0 NT-proBNP to <50 >449.9 Positive: HF -10 >899.9>75 >1799.9Note: Elevated NT-proBNP levels should be interpreted inthe context of other clinical information. 07/09/2025 12:1 1 PM EST 07/09/2025 12:15 PM EST us Generic External Data Provider LAB BLOOD ORDERAB LES Final Result Performing Organization Address [facility]/ZIP Co de Phone Number [facility] [address] [place] [address] [phone] * High Sensitivity Troponin I (07/09/2025 12:11 PM EST) Pathologist [facility] TROPONIN I HIGH SENSITIVITY <2.7 <3.5 - 35.0 ng/L [facility] Comment:The Lemon high sens itivity Troponin-I results should beused in conjunction with other diagnostic information suchas ECG, clinical observations and information, and patientsymptoms to aid in the diagnosis of VT. 07/09/2025 12:1 1 PM EST 07/09/2025 12:15 PM EST Generic External Data Provider LAB BLOOD ORDERAB LES Final Result Performing Organization Address [facility] Co de Phone Number [facility] [address] [place] [phone] * (ABNORMAL) Comprehensive Metabolic Panel (07/09/2025 12:11 PM EST) [facility] Sodium 139 135 - 145 mmol/L [facility] Potassium 4.4 3.3 - 5.1 mmol/L [facility] Comment:Slight Hemolysis.Int erpret result with caution. Chloride 103 96 - 108 mmol/L [facility] Carbon Dioxide 28 22 - 29 mmol/L [facility] Anion Gap 12 12 - 20 [facility] Urea Nitrogen (BUN) 16 9 - 16 mg/dL [facility] Creatinine, Serum 1.00 0.5 - 1.4 mg/dL [facility] Creatinine Clr Calc Pharmacy 68.5 [facility] Comment:eGFR (calculated fro m the MDRD study equation) and eCrCl(calculated from the Cockcroft-Gault equation) are based ondifferent parameters and may not yield comparable results.If eCrCl result is absurd, please check patient'sheight/weight. Estimated Glomerular Filt Rate >60 [facility] Comment:Chronic Kidney Disea se: Estimated GFR < 60 mL/min/1.23i5Xuatia Kidney Disease: Estimated GFR < 15 mL/min/1.73m2 Glucose 108 60 - 115 mg/dL [facility] Calcium 9.1 8.4 - 10.2 mg/dL [facility] Bilirubin, Total 1.1(H) 0.0 - 1.0 mg/dL [facility] Aspartate Amino Transferase 35 5 - 37 U/L [facility] Comment:Slight Hemolysis.Int erpret result with caution. Alanine Aminotransferase 21 0 - 40 U/L [facility] Total Protein 7.4 6.5 - 8.0 g/dL [facility] Albumin Level 4.8 3.5 - 5.0 g/dL [facility] Alkaline Phosphatase 40 39 - 117 U/L [facility] 07/09/2025 12:1 1 PM EST 07/09/2025 12:15 PM EST us Generic External Data Provider LAB BLOOD ORDERAB LES Final Result [facility] [address] [place] [phone] [phone] * COVID-19 ID NOW (Achaogen) (07/09/2025 12:11 PM EST) IDNOW SERIAL# [id number] [facility] COVID-19 TEST Negative Negative [facility] COVID-19 NOTE See Note [facility] Comment: Results are for the identification of SARS-CoV2 RNA. TheSARS-CoV2 RNA is generally detectable in respiratory samplesduring the acute phase of infection. Positive results areindicative of the presence of SARS-CoV-2 RNA; clinicalcorrelation with patient history and other diagnosticinformation is necessary to determine patient infectionstatus. Positive results do not rule out bacterial infectionor co- infection with other viruses.Testing facilities within the [facility] and itsterritories are required to report [...] GNOSTICS ORDERABLES Final Result Performing Organization Address [facility] Co de Phone Number [facility] [address] [place] [phone] * Influenza A B2 ID NOW (Lemon) (07/09/2025 12:11 PM EST) IDNOW SERIAL# [id number] [facility] Influenza A Negative Negative [facility] Influenza B2 Negative Negative [facility] Influenza A B2 Note See Note [facility] Comment:The Lemon ID NOW In fluenza [...] GENERAL ORDERABLES Final Result Performing Organization Address [facility] Co de Phone Number [facility] [address] [place] [phone] * Prothrombin Time-INR (07/09/2025 12:11 PM EST) Pathologist [facility] Prothrombin Time 12.0 11.2 - 13.5 SEC [facility] INTERNATIONAL NORM RATIO 1.0 0.9 - 1.1 [facility] Comment:INTERNATIONAL NORMAL IZED RATIO (INR) REFERENCE [...] ORDERAB LES Final Result Performing Organization Address City/State/[facility] de Phone Number [facility] [address] [place] [phone] * (ABNORMAL) CBC auto differential (07/09/2025 12:11 PM EST) Pathologist [facility] White Blood Count 4.7(L) 4.8 - 10.8 X10*3/uL [facility] Red Blood Count 4.50(L) 4.60 - 5.80 X10*6/uL [facility] Hemoglobin 14.6 14.0 - 18.0 g/dl [facility] Hematocrit 43.8 42.0 - 52.0 % [facility] Mean Corpuscular Volume 97.3 80.0 - 98.0 fL [facility] Mean Corpuscular Hemoglobin 32.4 27.0 - 33.0 pg [facility] Mean Corpuscular HGB Conc 33.3 31.0 - 36.0 g/dl [facility] Red Cell Distribution Width 11.9 11.0 - 16.0 % [facility] Platelet Count 195 160 - 400 X10*3/uL [facility] Mean Platelet Volume 10.3 9.4 - 12.4 fL [facility] Neutrophils Percent Auto 63.3 45 - 73 % [facility] Imm Gran Pct Auto 0.2 0.0 - 0.4 % [facility] Lymphocytes Percent Auto 27.0 20 - 40 % [facility] Monocytes Percent Auto 7.5 2 - 11 % [facility] Eosinophils Percent Auto 1.1 0 - 4 % [facility] Basophils Percent Auto 0.9 0 - 2 % [facility] NRBC Pct Auto 0.0 0.0 - 0.2 /100WBC [facility] Neutrophils Absolute Auto 3.0 2.0 - 8.3 x10*3/uL [facility] Imm Gran Abs Auto 0.01 0.00 - 0.03 X10*3/uL [facility] Lymphocytes Absolute Auto 1.3 1.2 - 4.9 X10*3/uL [facility] Monocytes Absolute Auto 0.4 0.1 - 1.2 X10*3/uL [facility] Eosinophils Absolute Auto 0.1 0.0 - 0.4 X10*3/uL [facility] Basophils Absolute Auto 0.0 0.0 - 0.2 X10*3/uL [facility] NRBC Abs Auto 0.000 0.0 - 0.012 X10*3/uL [facility] 07/09/2025 12:1 1 PM EST 07/09/2025 12:15 PM EST us Generic External Data Provider LAB BLOOD ORDERAB LES Final Result [facility] [address] [place] [phone] * XR Chest 2 Views (07/09/2025 11:52 AM EST) Anatomical Region Laterality Modality Chest Radiographic Cecelia ging 07/09/2025 11:5 2 AM EST Narrative 07/09/2025 12:14 PM EST [address] [address] XRay Report Signed Patient: John Fitzpatrick MR#: [id number] : 1970 Acct:[id number] Age/Sex: 55 / M ADM Date: 07/09/25 Loc: .ED Attending Dr: Ordering Physician: Tammy Gamez Date of Service: 07/09/25 Procedure(s): XR chest 2V Accession Number(s): [id number] cc: Tammy Gamez; [facility] Reason for Exam: chest pain EXAMINATION: [...] by: Finesse Witt MD 07/09/2025 12:11 PM [facility] Dictated By: Finesse Witt MD Signed By: <Electronically signed by Finesse Witt MD in OV> 07/09/25 1211 DD/ 1152 TD/TT: 07/09/25 1207 Director Financial Services: Procedure Note Donotuseinterpreter, Image - 07/09/[address] [address] XRay Report Signed Patient: John Fitzpatrick [facility]#: [id number] : 1970Acct:[id number] Age/Sex: 55 / MADM Date: 07/09/25 Loc: .ED Attending Dr: Ordering Physician: Tammy Gamez Date of Service: 07/09/25 Procedure(s): XR chest 2V Accession Number(s): [id number] cc: Tammy Gamez; [facility] Reason for Exam: chest pain EXAMINATION: [...] 07/09/25 1211 DD/ 1152 TD/TT: 07/09/25 1207 Director Financial Services: [facility] External Provider IMG XR PROCEDURES Final Result * Culture, Urine, Routine (07/09/2025 11:30 AM EST) Urine Urine specimen obtained by clean catch procedure / Unknown 07/09/2025 11:30 AM EST 07/09/2025 12:25 PM EST Comment:UACC Narrative [facility] - 07/10/2025 10:56 AM EST Urine Culture No growth. Specimen Source: Urine clean catch Generic External Data Provider LAB MICROBIOLOGY - GENERAL ORDERABLES Final Result [facility] [address] [place] [phone] * (ABNORMAL) Urinalysis Complete (07/09/2025 11:30 AM EST) Color Urine Yellow [facility] Appearance Urine Clear [facility] PH 7.0 5.0 - 9.0 [facility] Glucose Urine UA Negative Negative mg/dL [facility] Urine Blood Negative Negative [facility] Specific Treadwell - Urine >=1.030(H) 1.005 - 1.025 [facility] Urine Protein Trace Neg-Trace mg/dL [facility] Urine Ketones Trace Negative mg/dL [facility] Nitrite Urine Negative Negative [facility] Leukocyte Esterase Urine Negative Negative [facility] RBC Urine 0-2 0 - 2 /HPF [facility] Urine WBC 0-5 0 - 5 /HPF [facility] Urine Squamous Epithelial Cell 0-2 0 - 2 /HPF [facility] CALCIUM OXALATE CRYSTAL, UR Present [facility] Urine Bacteria None Seen None Seen [facility] Hyaline Casts, Urine 0-2 0 - 2 /LPF [facility] 07/09/2025 11:3 0 AM EST 07/09/2025 12:25 PM EST us Generic External Data Provider LAB URINE ORDERAB LES Final Result [facility] [address] [place] [phone] * Chlamydia/Trichomonas/Neisseria gonorrhoeae, PCR, Urine (07/09/2025 10:00 AM EST) CT PCR, Urine NOT DETECTED Not Detect. [facility] Comment:A not detected test result does [...] NG PCR, Urine NOT DETECTED Not Detect. [facility] Comment:A not detected test result does [...] 0 AM EST 07/09/2025 4:34 PM EST us Generic External Data Provider LAB URINE ORDERAB LES Final Result [facility] [address] [place] [phone] documented in this encounter Visit Diagnoses Not on filedocumented in this encounter Additional Health Concerns Assessment Noted Time PHQ-9 Depression Total Score: 8 06/17/20 11:48 AM EDT documented as of this encounter Care Teams Seeing Eye Dog Trainer Relationship Specialty Start Date End Date Haily Robb FNP [address] [place] [address] PCP - General Family Medicine 05/01/22 Gregoria Brooks, CHAGO [address] [place] [address] Registered Nurse Family Medicine 06/15/25 Latricia Houser 06/16/25 documented as of this encounter
--- OUTSIDE RECORDS SUMMARY | 2025-07-14 17:32 | XMS_ITS | Encounter Summary ---
Author Organization [employer] Address [address] [facility] [address] [place] [address] Care Team Providers Care Vocational Psychologist Name Role Phone Clarisse Haily ECCLESIASTICAL WORKER Primary Care Provider [phone] Gregoria Brooks RN Unavailable [phone] Latricia Houser Unavailable Encounter Details Date Type Department Care Team (Latest Contact Info) Description 07/10/2025 Travel Social History Tobacco Use Types Packs/Day [...] Description 07/15/2025 11:00 AM EST Office Visit [facility] [address] [place] [address] [facility] [address] [place] [address] documented as of this encounter Goals Goal Patient Goal Type Associated Problems Recent Progress Patient-Stated? Author Patient will adhere to medication regimen General Mary Chauhan documented as of this encounter Visit Diagnoses Not on filedocumented in this encounter Additional Health Concerns Assessment Noted Time PHQ-9 Depression Total Score: 8 06/17/20 25 11:48 AM EDT documented as of this encounter Care Teams Vocational Psychologist Relationship Specialty Start Date End Date [facility] [address] [place] [phone] PCP - General Family Medicine 05/01/22 Gregoria Brooks RN [address] [place] [address] Registered Nurse Family Medicine 06/15/25 Latricia Houser 06/16/25 documented as of this encounter
--- OUTSIDE RECORDS SUMMARY | 2025-07-14 17:32 | XMS_ITS | Encounter Summary ---
Author Organization [employer] Address [address] [place] [address] Care Team Providers Care Production Control Clerk Name Role Phone Clarisse [facility] Primary Care Provider [phone] Gregoria Brooks RN Unavailable [phone] Latricia Houser Unavailable Reason for Visit * Reason Comments Med Refill Encounter Details Date Type Department Care Team (Late st Contact Info) Description 08/28/2024 Refill [facility] [address] [place], [place] [phone] [place] Haily [facility] [address] [place], [place] [phone] Mixed anxiety and depressive disorder Social History [...] Upcoming Encounters Date Type Department Care Team ([facility] st Contact Info) Description 07/15/2025 11:00 AM EST Office Visit [facility] [address] [place] [address] ClarisseHaily FNP [address] [place] [address] documented as of this encounter Goals Goal [...] documented as of this encounter Care Teams Production Control Clerk Relationship Specialty Start Date End Date Haily Robb FNP [address] [place] [address] PCP - General Family Medicine 05/01/22 Gregoria Brooks RN [address] [place] [id number] Registered Nurse Family Medicine 06/15/25 Latricia Houser 06/16/25 documented as of this encounter
--- OUTSIDE RECORDS SUMMARY | 2025-07-14 17:32 | XMS_ITS | Encounter Summary ---
Author Organization [employer] Address [address] [place] [address] Care Team Providers Care Zinc Plate Grainer Name Role Phone Clarisse Haily FLOOR RENOVATOR Primary Care Provider Gregoria Brooks RN Unavailable [phone] Latricia Houser Unavailable Reason for Visit * Reason Onset Date Comments Nurse Triage 07/10/2025 CHEST PAIN Encounter Details Date Type Department Care Team (Late st Contact Info) Description 07/10/2025 Telephone [facility] [address] [place], [place] [phone] Hoa Dueñas NP [address] [place], [place] [phone] Nurse Triage (CHEST PAIN) Social History Tobacco Use Types Packs/Day Years [...] encounter Miscellaneous Notes * Telephone Encounter - Lyn Sarabia RN - 07/10/2025 11:27 AM EST Assessment: Patient presents to [facility] c/o left-sided chest pain and upper back pain that started thismorning upon waking (exact time unknown) and lasted approximately 1 hour. Patient accompanied to a sick visit and reports pain returned while waiting in the clinic waiting room. Pain is constant, 7/10 in intensity. Associated Symptoms: Positive: palpitations, sensation of being cold inside, left arm pain, head pressure Negative: nausea, vomiting, diaphoresis VS as follows (if applicable): Temp 98.7 orally HR 104 regular rate and rhythm Resp 20 none BP 157/83 left Arm; Device: Automatic Cuff Size: regular NOTE: Not on antihypertensives; no history of hypertension diagnosis upon brief chart review O2 sat 99 % on room air Pain level: 7, Location: Left Chest and upper back Allergies[1] Current Medications[2] Patient Active Problem List Diagnosis Date Noted Other chest pain 07/10/2025 High direct bilirubin 07/09/2025 Acute non intractable tension-type headache 06/22/2025 Palpitations [...] 01/06/2025 Lung nodules 12/19/2024 Interstitial lung disease ([facility]) ([facility]) 11/25/2024 Normal oral exam 10/22/2024 Urinary retention 09/01/2024 Bilateral lower extremity edema 09/01/2024 Pain in both lower extremities 06/30/2024 Lumbar radiculopathy 06/30/2024 Shortness of breath 06/10/2024 Nasal congestion 06/10/2024 Epigastric pain 11/20/2023 Dental calculus 06/25/2023 Generalized gingival recession, moderate 06/25/2023 Partial edentulism 06/25/2023 Odynophagia 06/14/2023 Moderate somatic symptom disorder 05/31/2023 Opioid dependence in remission ([facility]) ([facility]) 05/31/2023 Neck pain on left side 09/15/2022 Helicobacter pylori gastritis 08/03/2022 Hyperlipidemia 08/03/2022 Renal cyst, left 08/03/2022 Vitamin D deficiency 08/03/2022 Tobacco use 08/03/2022 Submandibular lymphadenopathy 03/31/2022 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 06/25/2018 Mixed anxiety and depressive disorder 02/22/2017 Chronic pruritus 06/15/2023 Scrotal pain 02/04/2023 Hypogonadism in male 11/02/2022 In Office Testing EKG performed by Jr BARRIOS Plan of care: Report to Hoa Dueñas FLOOR RENOVATOR Provider evaluation: Yes Lyn Sarabia RN [1] Allergies Allergen Reactions Shellfish Allergy Anaphylaxis Allergy Shellfish Protein-Containing Drug Products Seafood [2] Current Outpatient Medications Medication Sig Dispense Refill Acetaminophen 500 MG [...] taking: Reported on 07/09/2025) 100 lozenge 0 Blood Pressure kit Check [...] hydrOXYzine HCl (Atarax) 25 MG tablet TAKE 1-2 TABLET BY MOUTH 1h AC procedure for anxiety, can repeat in 6h prn anxiety 4 tablet 0 ibuprofen 600 MG tablet Take 1 tablet [...] APPLY TOPICALLY TWICE DAILY 30 g 1 No current facility-administered medications for this visit. documented in this encounter Plan of Treatment Upcoming Encounters Date Type Department Care Team (Late st Contact Info) Description 07/15/2025 11:00 AM EST Office Visit [facility] [address] [place] [address] Haily Robb FNP [address] [place] [address] documented as of this encounter Goals Goal Patient Goal Type Associated Problems Recent Progress Patient-Stated? Author Patient will adhere to medication regimen General Mary Chauhan documented as of this encounter Visit Diagnoses Not on filedocumented in this encounter Additional Health Concerns Assessment Noted Time PHQ-9 Depression Total Score: 8 06/17/20 25 11:48 AM EDT documented as of this encounter Care Teams Zinc Plate Grainer Relationship Specialty Start Date End Date Haily Robb FNP [address] [place] [address] PCP - General Family Medicine 05/01/22 Gregoria Brooks RN [address] [place] [address] Registered Nurse Family Medicine 06/15/25 Latricia Houser 06/16/25 documented as of this encounter
--- OUTSIDE RECORDS SUMMARY | 2025-07-14 17:32 | XMS_ITS | Encounter Summary ---
Author Organization [employer] Address [address] [facility] 7[address] [place] [address] Care Team Providers Care Ecommerce Merchandising Manager Name Role Phone Haily Robb [facility] Primary Care Provider [phone] Gregoria Brooks RN Unavailable [phone] Latricia Houser Unavailable Reason for Visit * Reason Onset Date Comments Results 02/26/2025 Encounter Details Date Type Department Care Team (Late st Contact Info) Description 02/26/2025 Telephone [facility] [address] [place], [place] [phone] GabrielsHaily [facility] [address] [place], [place] [phone] Results Social History Tobacco Use Types Packs/Day [...] back regarding prior message. Contact pt at [phone] * Telephone Encounter - Claudette Ashley - 02/26/2025 12:59 PM EDT TC from pt requesting call back regarding Results. Type of results: Lab Date when done: 02/25/25 Facility: [facility] Contact pt at [phone] (faroese) documented in this encounter Plan of Treatment Upcoming Encounters Date Type Department Care Team (Late st Contact Info) Description 07/15/2025 11:00 AM EST Office Visit [facility] [address] [place] [address] Haily Robb FNP [address] [place] [address] documented as of this encounter Goals Goal Patient Goal Type Associated Problems Recent Progress Patient-Stated? Author Patient will adhere to medication regimen General Mary Chauhan documented as of this encounter Visit Diagnoses Not on filedocumented in this encounter Additional Health Concerns Assessment Noted Time PHQ-9 Depression Total Score: 0 10/10/19 25 1:23 PM EST documented as of this encounter Care Teams Ecommerce Merchandising Manager Relationship Specialty Start Date End Date Haily Robb FNP [address] [place] [id number] PCP - General Family Medicine 05/01/22 Gregoria Brooks, [place] [address] [place] [phone] Registered Nurse Family Medicine 06/15/25 Latricia Houser 06/16/25 documented as of this encounter
[2025-07-14 18:17] VITALS: BP 121/60; PULSE 73; RESP 20; TEMP 36.8; O2SAT 99
--- NOTE | 2025-07-14 18:26 | PC.NURSE ---
cARE TEAM at bedside. Pt discussing concerns that he has sx of paranoia. Has been calm and able to state needs throughout stay.
--- NOTE | 2025-07-14 18:38 | PC.NURSE ---
RN to RN with Melba in the POD
[2025-07-14 19:26] VITALS: BP 117/56; PULSE 67; RESP 17; O2SAT 98
--- NOTE | 2025-07-14 19:27 | PC.NURSE ---
Addendum entered by Rosmery Alex RN 07/14/25 20:28: belongings secured in locker 6. Original Note: pts belongings searched and locked with security. pt also changed over to hospital attire.
[2025-07-14 20:56] LABS: Appearance Urine Clear; Glucose Urine UA Negative (Negative); PH 6.5 (5.0-9.0); Specific Gravity - Urine 1.020 (1.005-1.025); UMIC TRIGGER UACC YES
--- NOTE | 2025-07-14 21:00 | PC.NURSE ---
Addendum entered by Xochilt Lr RN 07/15/25 05:57: pt unable to tell me what else he takes besides flomax and methadone. Original Note: med rec completed based on pharmacy filled list in chart. pt also stating he takes methadone, every AM. clinic: [facility]
[2025-07-14 21:06] LABS: Cannabinoid Screen Urine Not Detected (Not Detect)
--- NOTE | 2025-07-14 22:30 | PC.NURSE ---
pt refused nighttime meds. only took the flomax.
[2025-07-15 04:25] VITALS: BP 123/70; PULSE 99; RESP 17; TEMP 36.7; O2SAT 99
--- NOTE | 2025-07-15 04:40 | PC.NURSE ---
pt came out of room, senior marketing coordinator called. pt stating that he feels like he is having a seizure on the inside pt visibly shivering. warm blanket provided. pt requesting food and juice, both provided. spoke with pt for awhile with senior marketing coordinator and this RN. pt stating that he feels better while talking to someone, and he wasnt able to sleep in room, just rest because he head is constantly going. pt medicated per MAR for anxiety. reluctant to take medication at first, fearful it will kill me . pt educated on medication. pt took. pt slow to answer questions at times and answers doesnt always make sense. my head is like baseball game . paranoid thoughts. no shaking after being given a warm blanket.
--- NOTE | 2025-07-15 07:56 | PC.NURSE ---
Assumed care, report received. Pt is awake and eating breakfast, he is calm and cooperative.
[2025-07-15] MEDS: methADONE HCl 20 MG/2 ML ORAL.CONC 28 MG PO (08:56)
--- NOTE | 2025-07-15 09:39 | HE.PHANOTE ---
RE: METHADONE DOSE Patient last received methadone 28 mg at [facility] [phone] on 06/23/25 10AM per CHAGO Schmidt and was given 27 take home doses. Per nurse Melba Vivas, pt said he last took his take home dose on 07/14/25.
--- NOTE | 2025-07-15 13:45 | PHA.MEDREC ---
Addendum entered by Jovany Gonazlez RPh 07/15/25 14:18: MED REC REVIEWED BY [facility] Original Note: Pharmacy Consult ? Medication Reconciliation Pharmacy has reviewed the medication reconciliation done by nursing. patient is a poor historian. claims match med list.
[2025-07-15 14:09] VITALS: BP 140/80; PULSE 55; RESP 16; TEMP 36.6; O2SAT 100
--- NOTE | 2025-07-15 15:57 | HO.PSYADMNOT ---
HPI Date of Service: 07/15/25 Chief Complaint: crisis Sources of Information: patient interviewed, chart reviewed and crisis/core team assessment reviewed HPI Subjective Notes: Rivera Warning and Conditional Voluntary Narrative: Patient is a 55 year old male with hx of MDD, JODY and opioid use d/o who self presented to [facility] d/t auditory hallucinations and paranoia secondary to poor sleep. Per crisis report, patient presented to ER due to medical and mental health concerns. He reported having high blood pressure, chest pain, neck pain, head pain, and lower back pain. He also reported he has not been eating or sleeping well over the last couple of weeks and noted a 20 lb weight loss. Patient reports auditory hallucinations stating he hears voices and buzzing in his ears however, the symptoms have only been going on for the last 5 days. Patient reports symptoms of paranoia; believing there is gas coming from the air vents and feels he was suffocating. Patient has good insight as he states, sometimes I think I'm crazy but I know I know that they are not real . Patient has no known history of psychosis. Patient reports his mood as happy . Denies SI/HI/VH. History crack and heroin use however, reports he has not been using; last use was a year ago. Utox positive for methadone. Collateral was obtained from patient's spouse, Mirta. Mirta reports patient has been experiencing symptoms of psychosis for the last 5 days but has no known history of psychosis. She reports patient began believing his coffee was poisoned and believes there were cameras in the leung. She reports patient has not been eating or drinking and is not always consistent with taking his medications. During admission assessment, stack attendant present. Patient presents alert and oriented x3. calm and cooperative. Patient reports feeling depressed and anxious from not sleeping . Patient stated, I was diagnosed with tuberculosis 12 months ago and I have spoken to multiple specialists who told me 20 times that nothing will happen to me but, I have it in my mind that I'm going to from it. I know it's not true but, I keep thinking negatively about it . Patient reports 2 days ago he felt there was gas coming through the vents of his home but he knows that is not real and reports this is the first time this has occurred. Patient reports having auditory hallucinations last night; patient stated, they tell me not to go to sleep . He currently denies SI/HI/VH/AH. He reports poor sleep and appetite. Denies history of SA/SIB. He reports this is his first inpatient psychiatric hospitalization. Discussed starting on Seroquel; risks/benefits reviewed, patient agreed to trial. Past Psychiatric History: Psychiatrist: [facility]. Tracy [facility] Therapist Heather ([facility]) First inpatient psychiatric admission. denies hx of SA/SIB. Medical Evaluation Reviewed: Yes [facility] Medical History Constipation Anemia Hx of substance abuse Smoker History of Helicobacter pylori infection Spinal pain Hypogonadism Erectile dysfunction Hx: UTI (urinary tract infection) BPH (benign prostatic hyperplasia) Hx of hepatitis C GERD (gastroesophageal reflux disease) Anxiety and depression HTN (hypertension) Murmur Surgical History Hx of cystoscopy Family History: unknown Social History: Lives with nephew. single. 3 adult kids. disability. highest level of education completed 7th grade. Substance History: hx of opioid and crack use. Trauma History: denies Diagnostics Vital Signs (24Hr): Vital Signs - 24 hr 07/14/25 16:28 07/14/25 18:17 07/14/25 19:26 Temperature 98.2 F 98.2 F Pulse Rate 86 73 67 Respiratory Rate 14 20 17 Blood Pressure 128/58 L 121/60 117/56 L Pulse Oximetry 97 99 98 Oxygen Delivery Method Room Air Room Air Room Air 07/15/25 04:25 07/15/25 14:09 Temperature 98.0 F 97.9 F Pulse Rate 99 55 Respiratory Rate 17 16 Blood Pressure 123/70 140/80 H Pulse Oximetry 99 100 Oxygen Delivery Method Room Air Room Air BMI result Body Mass Index 18.4 Labs 07/14/25 13:08 07/14/25 13:08 Labs: Laboratory Results - last 48 hr 07/14/25 07/14/25 13:08 20:44 WBC 5.3 RBC 4.43 L Hgb 14.5 Hct 41.8 L MCV 94.4 MCH 32.7 MCHC 34.7 RDW 11.5 Plt Count 206 MPV 10.3 Immature Gran % (Auto) 0.2 Neut % (Auto) 77.5 H Lymph % (Auto) 14.3 L [place] % (Auto) 7.2 Eos % (Auto) 0.2 Baso % (Auto) 0.6 Lymph # (Auto) 0.8 L [place] # (Auto) 0.4 Eos # (Auto) 0.0 Baso # (Auto) 0.0 Abs Immat Gran (auto) 0.01 Absolute Neuts (auto) 4.1 Absolute Nucleated RBC 0.000 Nucleated RBC % (auto) 0.0 PT 12.8 INR 1.0 Sodium 140 Potassium 3.4 D Chloride 104 Carbon Dioxide 27 Anion Gap 12 BUN 16 Creatinine 0.87 Estim Creat Clear Calc 79.3 Estimated GFR > 60 Random Glucose 127 H Calcium 9.3 Total Bilirubin 1.5 H AST 25 ALT 27 Alkaline Phosphatase 45 Troponin I High Sens 3.7 Total Protein 7.7 Albumin 5.0 Urine Color Yellow Urine Appearance Clear Urine pH 6.5 Ur Specific [place] 1.020 Urine Protein Trace Urine Glucose (UA) Negative Urine Ketones Trace Urine Blood Negative Urine Nitrite Negative Ur Leukocyte Esterase Trace H Urine RBC 3-5 H Urine WBC 0-5 Ur Squamous Epith Cells 0-2 Urine Bacteria None Seen Hyaline Casts 0-2 Urine Opiates Screen Not Detected Ur Buprenorphine Scrn Not Detected Ur Oxycodone Screen Not Detected Urine Methadone Screen Positive H Urine Fentanyl Screen Not Detected Ur Barbiturates Screen Not Detected Ur Phencyclidine Scrn Not Detected Ur Amphetamines Screen Not Detected U Benzodiazepines Scrn Not Detected Urine Cocaine Screen Not Detected U Marijuana (THC) Screen Not Detected Ethyl Alcohol < 10 Imaging Radiology Impressions: ITS Impressions Chest X-Ray 07/14/25 13:12 IMPRESSION: No evidence of acute pulmonary process. Electronically signed by: Rob Summers MD 07/14/2025 01:17 PM [facility] Meds/Allergies Meds Home Medications ?Medication ?Instructions ?Recorded ?Confirmed ?Type cholecalciferol (vitamin D3) 50 50 mcg PO DAILY 06/30/20 07/14/25 History mcg (2,000 unit) capsule (Vitamin D3) melatonin 5 mg tablet 5 - 10 mg PO BEDTIME PRN insomnia 01/12/23 07/14/25 History pantoprazole 40 mg tablet,delayed 40 mg PO DAILY 04/10/25 07/14/25 History release fluvoxamine 25 mg tablet 25 mg PO BEDTIME 06/22/25 07/14/25 History polyethylene glycol 3350 17 gram 17 g PO DAILY 06/22/25 07/14/25 History oral powder packet amitriptyline 25 mg tablet 25 mg PO BEDTIME 07/14/25 07/14/25 History calcium polycarbophil 625 mg 625 mg PO BID 07/14/25 07/14/25 History tablet (Fiber-Lax) ipratropium bromide 21 mcg (0.03 1 spray intranasal Q12H 07/14/25 07/14/25 History %) nasal spray ketotifen fumarate 0.025 % (0.035 1 drp ophthalmic (eye) BID PRN 07/14/25 07/14/25 History %) eye drops allergies propranolol 40 mg tablet 40 mg PO Q12H PRN anxiety 07/14/25 07/14/25 History rosuvastatin 10 mg tablet 10 mg PO QAM 07/14/25 07/14/25 History furosemide 20 mg tablet 40 mg PO DAILY 07/15/25 07/15/25 History lidocaine 5 % topical patch 1 - 2 patch topical DAILY 07/15/25 07/15/25 History methadone 10 mg/mL oral 28 mg PO DAILY 07/15/25 07/15/25 History concentrate (Methadone Intensol) Allergies Allergies Allergy/AdvReac Type Severity Reaction Status Date / Time SEAFOOD Allergy Severe ANAPHYLAXIS Uncoded 07/14/25 12:55 shellfish Allergy Severe Anaphylaxis Uncoded 07/14/25 12:55 Mental Status Exam Mental Status Exam Patient Appearance: Appropriate and Malodorous Patient Orientation: Person, Place, Time and Situation Level of Consciousness: Awake and Alert Patient Behavior: Appropriate, Cooperative and Good Eye Contact Mood Description: Depressed and Anxious Affect Description: Depressed Ability to Follow Directions: Good Speech Pattern: Clear Memory Description: Intact Hallucinations: Auditory Delusions: Not Present Thought Process: Intact Thought Content: positive for Intact Assessment & Plan Assessment & Plan (1) MDD (major depressive disorder), recurrent, severe, with psychosis: Status: Acute Code(s): F33.3 - Major depressive disorder, recurrent, severe with psychotic symptoms (2) JODY (generalized anxiety disorder): Status: Acute Code(s): F41.1 - Generalized anxiety disorder (3) Opioid use disorder: Status: Acute Code(s): F11.90 - Opioid use, unspecified, uncomplicated (4) Insomnia: Status: Acute Code(s): G47.00 - Insomnia, unspecified Plan Patient is a 55 year old male with hx of MDD, JODY and opioid use d/o who self presented to [facility] d/t auditory hallucinations and paranoia secondary to poor sleep. Plan: CV 15 minute safety checks Obtain collateral Start: Seroquel 50mg PO bedtime Increase Luvox to 50mg PO daily encourage groups discharge planning Patient educated on: diagnosis and medication risk/benefits Reason for continued inpatient stay Substantial Risk for: med/psych decompensation Statement Statement: I have reviewed the history and physical and performed a pertinent examination on my patient. No changes have occurred unless specified. If the History and Physical was not performed prior to admission, the Hospitalist's service will be consulted for completing the admission physical. Time Spent With Patient Time: Total time managing care of this patient today _60___ minutes.
[2025-07-15 16:26] VITALS: BMI 17.9
--- NOTE | 2025-07-15 16:53 | PC.ADMIT ---
John Ro was admitted to on 07/15/25 at 12:04 from the ED Pod on a CV for treatment of Major Depressive Disorder, and Unspecified Psychosis. He is Russian-Speaking only, RN completed admission assessment with interpreters Pippa and Hodan. Prior to admission he was having anxiety and paranoia that kept him from eating or sleeping for weeks. He is alert and oriented to person, but uncertain about place up to the city or time up to the day of the month. He was easily reorientated. His mood was worried, his affect was anxious, he reported experiencing auditory hallucinations of voices for a week that were warning him not to go to sleep. He denied experiencing the voices today but confirmed hearing them yesterday. He did not appear to be responding to internal stimuli, and exhibited no paranoia, delusions, or thoughts to harm himself or others during admission. His thought process was circumstantial, somatically focused and he was easily distracted. His appetite was diminished, with recent 25lb weight loss, and he reported sleeping poorly due to racing thoughts. He denied using any non-prescribed substances currently, with heroin and cocaine use 10 years ago. His toxicology screen was positive for Methadone which he is prescribed. He reported numerous medical issues such as dizziness and short term memory loss at home, dry mouth, mild chest pain, constipation, difficulty urinating, neuropathy of his legs, and lower back, jaw, teeth, brain, leg, and knee pain. Placed on 15 minute safety checks.
--- NOTE | 2025-07-15 17:06 | PC.NURSE ---
Pt refused Flu vaccine.
--- NOTE | 2025-07-15 18:26 | PC.ADMIT ---
John Ro was admitted to on 07/15/25 at 1423 from the ED Pod on a CV for treatment of Major Depressive Disorder, and Unspecified Psychosis. He is Chadian-Speaking only, RN completed admission assessment with interpreters Pippa and Hodan. Prior to admission he was having anxiety and paranoia that kept him from eating or sleeping for weeks. He is alert and oriented to person, but uncertain about place up to the city or time up to the day of the month. He was easily reorientated. His mood was worried, his affect was anxious, he reported experiencing auditory hallucinations of voices for a week that were warning him not to go to sleep. He denied experiencing the voices today but confirmed hearing them yesterday. He did not appear to be responding to internal stimuli, and exhibited no paranoia, delusions, or thoughts to harm himself or others during admission. His thought process was circumstantial, somatically focused and he was easily distracted. His appetite was diminished, with recent 25lb weight loss, and he reported sleeping poorly due to racing thoughts. He denied using any non-prescribed substances currently, with heroin and cocaine use 10 years ago. His toxicology screen was positive for Methadone which he is prescribed. He reported numerous medical issues such as dizziness and short term memory loss at home, dry mouth, mild chest pain, constipation, difficulty urinating, neuropathy of his legs, and lower back, jaw, teeth, brain, leg, and knee pain. Placed on 15 minute safety checks.
[2025-07-15 20:00] VITALS: BP 106/59; PULSE 60; RESP 16; TEMP 36.7; O2SAT 98
[2025-07-15] MEDS: Ipratropium Bromide Nas 0.03 % 30 ML SPRAY 1 SPRAY NOSTRIL-B (20:54)
[2025-07-15] MEDS: calcium polycarbophiL TABLET 1 TAB PO (20:56)
[2025-07-16 07:00] VITALS: BMI 17.9
[2025-07-16] MEDS: methADONE HCl 20 MG/2 ML ORAL.CONC 28 MG PO (08:01)
[2025-07-16] MEDS: calcium polycarbophiL TABLET 1 TAB PO ×2 (08:29→21:56)
--- NOTE | 2025-07-16 08:36 | P.CONHOSP_ITS ---
History of Present Illness Data of Consult Service Date: 07/16/25 Primary Care Provider: ANETA Poole Reason for consult: Medical consult 55-year-old Mozambican-speaking male with a past medical history of major depressive disorder, insomnia, GERD, paranoia, BPH, HLD, GERD, hypochondria, presented to the emergency room with somatic complaints. Patient has presented to the ED multiple times for somatic complaints. It is noted that he has been increasingly paranoid recently, with thoughts that people are poisoning him. Patient has had positive QuantiFERON tests and followed by the TB Clinic at [facility]. Found not to have any evidence of active tuberculosis. I was recommended that he have 4 months of rifampin but he has not made a decision yet whether he will continue that treatment. Workup in the ED revealed no leukocytosis, no anemia, no electrolyte imbalances, no evidence of renal or kidney dysfunction, his total bili was 1.5 other LFTs were otherwise normal. Tox screen positive for methadone. Urine negative for any infection. On exam his reporting chronic chest, shoulder, back and joint pain. Patient reports that he previously takes vitamin B12 for this and it has been helpful for him. Patient reports that he has arthritis, does not have a primary care at this time. Patient has been seen by Urology for BPH as well as Gastroenterology, no PCP notes available. Patient has multiple ED visits for various compalints. 5 since mid June. no other medical concerns. Visit assisted by Jelly Henningdaycare worker Review of Systems 2 Review of Systems: Denies any shortness of breath, chest pain, headaches, dysuria, abdominal pain or discomfort, nausea, vomiting or diarrhea. Denies fever or chills. [facility] Medical History Constipation Anemia Hx of substance abuse Smoker History of Helicobacter pylori infection Spinal pain Hypogonadism Erectile dysfunction Hx: UTI (urinary tract infection) BPH (benign prostatic hyperplasia) Hx of hepatitis C GERD (gastroesophageal reflux disease) Anxiety and depression HTN (hypertension) Murmur Family History Mother Diabetes Surgical History Hx of cystoscopy Social History (Reviewed 06/22/25 @ 10:54 by BARBY George Household Members: Other Household Members Other:: Nephew Housing: Apartment Do you presently have visiting nurse or other home services: No Alcohol intake: former Patient Tobacco Use Status: Former Tobacco user Tobacco use type: Cigarette Smoked in Last 30 Days: No e-Cigarette/Vaping Use: Never Used Patient Interested in Nicotine Replacement: No Patient Given Instructions on How to Stop Smoking: No Second Hand Smoke Exposure: No Use of substances other than those prescribed or required for medical reasons: No Substance Use Type: Crack/Cocaine and Heroin Currently Displaying Signs/Symptoms of Drug Intoxication Withdrawal: No Have you been hit, kicked, punched, or otherwise hurt by someone within the past year? If so, by whom?: No Do you feel safe in your current relationship?: Yes Is there a partner from a previous relationship who is making you feel unsafe now?: No Are you made to feel afraid or neglected: No [facility] Practices: [facility]ing to God, [facility]. Having ronit. Advance Directives: No Advance Directives Information Provided: Yes Do you have thoughts of harming others: None Do you have a plan to hurt others: No Plan Recently lost weight without trying: Yes How much weight loss: 24-33 pounds Eating poorly because of decreased appetite: Yes Nutrition screen score: 6 Nutrition Risks: Anorexia Poor oral hygiene: No Current occupational status: unemployed Meds Allergies Allergy/AdvReac Type Severity Reaction Status Date / Time SEAFOOD Allergy Severe ANAPHYLAXIS Uncoded 07/14/25 12:55 shellfish Allergy Severe Anaphylaxis Uncoded 07/14/25 12:55 Active Medications: Current Medications Acetaminophen (Acetaminophen 325 Mg Tablet) 650 mg PO Q6H PRN PRN Reason: Headache/Pain, Scale 1-10 Al Hydroxide/Mg Hydroxide (Magnesium Hydrox/Alum Hydrox 30 Ml Oral.Susp) 30 ml PO Q6H PRN PRN Reason: Heartburn/Nausea Amitriptyline HCl (Amitriptyline Hcl 25 Mg Tablet) 25 mg PO BEDTIME [facility] Last Admin: 07/15/25 20:56 Dose: 25 mg Atorvastatin Calcium (Atorvastatin Calcium 40 Mg Tablet) 40 mg PO DAILY [facility] Last Admin: 07/15/25 08:56 Dose: 40 mg Calcium Polycarbophil (Calcium Polycarbophil Tablet) 1 tab PO BID [facility] Last Admin: 07/15/25 20:56 Dose: 1 tab Docusate Sodium (Docusate Sodium 100 Mg Capsule) 100 mg PO BEDTIME PRN PRN Reason: Constipation Famotidine (Famotidine 20 Mg Tablet) 20 mg PO DAILY PRN PRN Reason: GERD Fluticasone Propionate (Fluticasone Propionate Nasal 16 Gm [place]) 1 spray NOSTRIL-B BID [facility] Last Admin: 07/15/25 20:53 Dose: 1 spray Fluvoxamine Maleate (Fluvoxamine Maleate 50 Mg Tablet) 50 mg PO BEDTIME [facility] Last Admin: 07/15/25 20:56 Dose: 50 mg Hydroxyzine HCl (Hydroxyzine Hcl 25 Mg Tablet) 25 mg PO Q6H PRN PRN Reason: mild anxiety Last Admin: 07/15/25 20:55 Dose: 25 mg Ipratropium [place] (Ipratropium [place] Leobardo 0.03 % 30 Ml [place]) 1 spray NOSTRIL-B Q12H [facility] Last Admin: 07/15/25 20:54 Dose: 1 spray Ketotifen Fumarate (Ketotifen Fumarate 0.025% Oph 5 Ml Drpbtl) 1 drop EYE-BOTH BID PRN PRN Reason: allergies Magnesium Hydroxide (Milk Of Magnesia 30 Ml Oral.Susp) 30 ml PO DAILY PRN PRN Reason: Constipation Melatonin (Melatonin 3 Mg Tablet) 9 mg PO BEDTIME [facility] Last Admin: 07/15/25 20:55 Dose: 9 mg Methadone HCl (Methadone Hcl 20 Mg/2 Ml Oral.Conc) 28 mg PO DAILY [facility] Last Admin: 07/16/25 08:01 Dose: 28 mg Nicotine Polacrilex (Nicotine Polacrilex 2 Mg Gum) 4 mg BUCCAL Q2H PRN PRN Reason: Nicotine Cravings Non-Formulary Medication (Testosterone Cypionate) 200 mg IM Q2W [facility] Omeprazole (Omeprazole 20 Mg Capsule.Dr) 20 mg PO DAILY@0630 [facility] Last Admin: 07/16/25 06:20 Dose: Not Given Polyethylene Glycol (Polyethylene Glycol 3350 17 Gm Powd.Pack) 17 gm PO DAILY [facility] Propranolol HCl (Propranolol Hcl 40 Mg Tablet) 40 mg PO Q12H PRN; Protocol PRN Reason: Anxiety Last Admin: 07/15/25 04:33 Dose: 40 mg Quetiapine Fumarate (Quetiapine Fumarate 50 Mg Tablet) 50 mg PO BEDTIME [facility] Last Admin: 07/15/25 20:56 Dose: 50 mg Tamsulosin HCl (Tamsulosin Hcl 0.4 Mg Capsule) 0.4 mg PO BEDTIME [facility] Last Admin: 07/15/25 20:56 Dose: 0.4 mg Trazodone HCl (Trazodone Hcl 50 Mg Tablet) 50 mg PO BEDTIME MRX1 PRN PRN Reason: Insomnia Vitamin D (Cholecalciferol (Vitamin D3) 25 Mcg Tablet) 50 mcg PO DAILY [facility] G Home Medications ?Medication ?Instructions ?Recorded ?Confirmed ?Last Taken ?Type cholecalciferol (vitamin D3) 50 50 mcg PO DAILY 07/14/25 Unknown History mcg (2,000 unit) capsule (Vitamin D3) melatonin 5 mg tablet 5 - 10 mg PO BEDTIME PRN ins omnia 01/12/23 07/14/25 Unknown History pantoprazole 40 mg tablet,delayed 40 mg PO DAILY 04/1007/14/25 Unknown History release fluvoxamine 25 mg tablet 25 mg PO BEDTIME 06/22/25 Unknown History polyethylene glycol 3350 17 gram 17 g PO DAILY 5 07/14/25 Unknown History oral powder packet amitriptyline 25 mg tablet 25 mg PO BEDTIME 07/14/25 1 09/13/24 Unknown History calcium polycarbophil 625 mg 625 mg PO BID 07/14/25 Unknown History tablet (Fiber-Lax) ipratropium bromide 21 mcg (0.03 1 spray intranasal Q1 2H 07/14/25 07/14/25 Unknown History %) nasal spray ketotifen fumarate 0.025 % (0.035 1 drp ophthalmic (ey e) BID PRN 07/14/25 07/14/25 Unknown History %) eye drops allergies propranolol 40 mg tablet 40 mg PO Q12H PRN anxiety 07/14/25 Unknown History rosuvastatin 10 mg tablet 10 mg PO QAM 07/14/25 Unknown History lidocaine 5 % topical patch 1 - 2 patch topical DAILY 07/15/25 07/15/25 Unknown History methadone 10 mg/mL oral 28 mg PO DAILY 07/15/2507/0407/14/25 History concentrate (Methadone Intensol) Physical Exam 2 Vital Signs and Narrative: Vital Signs: Last Vital Signs Temp 98.1 F 07/15/25 20:00 Pulse 60 07/15/25 20:00 Resp 16 07/15/25 20:00 BP 106/59 L 07/15/25 20:00 Pulse Ox 98 07/15/25 20:00 O2 Del Method Room Air 07/15/25 20:00 BMI result Body Mass Index 17.9 Alert and oriented X3, calm and cooperative. Answers questions. Neuro: CN II-X11 intact, no deficits, visual acuity intact EYES: PERRLA, EOM intact ENT: Hearing intact, MMM Cardiac: S1 S2 RRR, No ectopy Pulmonary: lungs clear to auscultation, No increased WOB. Abdominal: BS active in all 4 quadrants, no guarding or tenderness MSK: Strength 5/5 upper and lower extremities : Deferred Extremities: No edema in lower extremities Psych: Mood stable, Quiet and cooperative. Skin: Warm and dry, Intact Results Labs 07/14/25 13:08 07/14/25 13:08 Assessment and Plan (1) GERD (gastroesophageal reflux disease): Qualifiers: Esophagitis presence: esophagitis presence not specified Qualified Code(s): K21.9 - Gastro-esophageal reflux disease without esophagitis Status: Acute (2) BPH (benign prostatic hyperplasia): Status: Acute Plan 55 year old male with PMH as noted below presented to ED with somatic complaints and increased paranoia. Admitted to inpatient psych for further care and treatment. Major depressive disorder/Insomnia/Paranoia Treatment per psychiatric team. 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 Workup did not reveal active infection Thank you for allowing me to participate in the care of this patient. Will follow with you, please notify medical provider with any changes in condition or concerns.
[2025-07-16 09:45] VITALS: BP 138/63; PULSE 103; RESP 16; TEMP 36.7; O2SAT 94
[2025-07-16 10:30] VITALS: BP 123/76; PULSE 76; RESP 16; O2SAT 98
--- NOTE | 2025-07-16 12:15 | MHC.CLN ---
CONSULT PT STATED 20# WT LOSS OVER A COUPLE WEEKS CURRENT WT 58KG (07/15/25) PREVIOUS WT 69.4KG (07/09/24) PT WITH 16% NON SIGNIFICANT WT LOSS X 1 YEAR 63KG (01/25/25) PT WITH 8% NON-SIGNIFICANT WT LOSS X 6 MONTHS REVIEWED LABS REGULAR DIET IN PLACE PT RECEIVING ENSURE TID PROVIDES 1050KCALS, 60G PROTEIN MONITOR PO INTAKE AND ENCOURGAE SUPPLEMENT WEIGH PT WEEKLY GOAL: WT GAIN 1-2# PER WEEK NO NEW INTERVENTIONS AT THIS TIME-CONTINUE CARE PLAN
--- NOTE | 2025-07-16 14:33 | P.PNPSI_ITS ---
Subjective Subjective Date of Service: 07/16/25 Reason For Visit: crisis Subjective Notes: Conditional Voluntary Interim History: Active on unit. Patient reports feeling anxious and having paranoia; pt stated, I woke up scared last night. I'm worried that if I sleep too deep someone will try to hurt me . Pt stated, he understands this sounds psychotic ; per nursing, pt slept 8 hours last night. He agreed to increase in Seroquel; Seroquel increased to 100mg PO bedtime. denies SI/HI/VH/AH. Continue tx plan. Medication Compliance: Yes Side effects from medications: No Attending Groups: Intermittent Mental Status Exam Mental Status Exam Narrative: Pt is alert and oriented; behavior is cooperative and calm; dressed in casual attire; mood is described as anxious ; eye contact appropriate; Speech is normal rate, volume and not pressured; thought process is organized; Thought content is on tx;paranoid; denies SI/HI/VH/AH. Diagnostics Vital Signs (24Hr): Vital Signs - 24 hr 07/15/25 20:00 07/16/25 09:45 07/16/25 10:30 Temperature 98.1 F 98.1 F Pulse Rate 60 103 H 76 Respiratory Rate 16 16 16 Blood Pressure 106/59 L 138/63 123/76 Pulse Oximetry 98 94 98 Oxygen Delivery Method Room Air Room Air Room Air BMI result Body Mass Index 17.9 Labs 07/14/25 13:08 07/14/25 13:08 Labs: Laboratory Results - last 48 hr 07/14/25 07/14/25 13:08 20:44 Urine Color Yellow Urine Appearance Clear Urine pH 6.5 Ur Specific [place] 1.020 Urine Protein Trace Urine Glucose (UA) Negative Urine Ketones Trace Urine Blood Negative Urine Nitrite Negative Ur Leukocyte Esterase Trace H Urine RBC 3-5 H Urine WBC 0-5 Ur Squamous Epith Cells 0-2 Urine Bacteria None Seen Hyaline Casts 0-2 Urine Opiates Screen Not Detected Ur Buprenorphine Scrn Not Detected Ur Oxycodone Screen Not Detected Urine Methadone Screen Positive H Urine Fentanyl Screen Not Detected Ur Barbiturates Screen Not Detected Ur Phencyclidine Scrn Not Detected Ur Amphetamines Screen Not Detected U Benzodiazepines Scrn Not Detected Urine Cocaine Screen Not Detected U Marijuana (THC) Screen Not Detected Ethyl Alcohol < 10 Imaging Radiology Impressions: ITS Impressions Chest X-Ray 07/14/25 13:12 IMPRESSION: No evidence of acute pulmonary process. Electronically signed by: Rob Summers MD 07/14/2025 01:17 PM [facility] Medications Medications Current Medications Acetaminophen (Acetaminophen 325 Mg Tablet) 650 mg PO Q6H PRN PRN Reason: Headache/Pain, Scale 1-10 Al Hydroxide/Mg Hydroxide (Magnesium Hydrox/Alum Hydrox 30 Ml Oral.Susp) 30 ml PO Q6H PRN PRN Reason: Heartburn/Nausea Amitriptyline HCl (Amitriptyline Hcl 25 Mg Tablet) 25 mg PO BEDTIME [facility] Last Admin: 07/15/25 20:56 Dose: 25 mg Atorvastatin Calcium (Atorvastatin Calcium 40 Mg Tablet) 40 mg PO DAILY [facility] Last Admin: 07/16/25 08:29 Dose: 40 mg Bisacodyl (Bisacodyl 5 Mg Tablet.Dr) 10 mg PO BEDTIME [facility] Calcium Polycarbophil (Calcium Polycarbophil Tablet) 1 tab PO BID [facility] Last Admin: 07/16/25 08:29 Dose: 1 tab Cyanocobalamin (Cyanocobalamin (Vitamin B-12) 1,000 Mcg Tablet) 1,000 mcg PO DAILY [facility] Famotidine (Famotidine 20 Mg Tablet) 20 mg PO DAILY PRN PRN Reason: GERD Fluticasone Propionate (Fluticasone Propionate Nasal 16 Gm [place]) 1 spray NOSTRIL-B BID [facility] Last Admin: 07/16/25 09:38 Dose: Not Given Fluvoxamine Maleate (Fluvoxamine Maleate 50 Mg Tablet) 50 mg PO BEDTIME [facility] Last Admin: 07/15/25 20:56 Dose: 50 mg Hydroxyzine HCl (Hydroxyzine Hcl 25 Mg Tablet) 25 mg PO Q6H PRN PRN Reason: mild anxiety Last Admin: 07/15/25 20:55 Dose: 25 mg Ipratropium [place] (Ipratropium [place] Leobardo 0.03 % 30 Ml [place]) 1 spray NOSTRIL-B Q12H [facility] Last Admin: 07/16/25 09:38 Dose: Not Given Ketotifen Fumarate (Ketotifen Fumarate 0.025% Oph 5 Ml Drpbtl) 1 drop EYE-BOTH BID PRN PRN Reason: allergies Lidocaine (Lidocaine 4 % Patch Adh..Patch) 1 patch TRANSDERMA DAILY [facility] Magnesium Hydroxide (Milk Of Magnesia 30 Ml Oral.Susp) 30 ml PO DAILY PRN PRN Reason: Constipation Methadone HCl (Methadone Hcl 20 Mg/2 Ml Oral.Conc) 28 mg PO DAILY [facility] Last Admin: 07/16/25 08:01 Dose: 28 mg Nicotine Polacrilex (Nicotine Polacrilex 2 Mg Gum) 4 mg BUCCAL Q2H PRN PRN Reason: Nicotine Cravings Non-Formulary Medication (Testosterone Cypionate) 200 mg IM Q2W [facility] Omeprazole (Omeprazole 20 Mg Capsule.Dr) 20 mg PO DAILY@0630 [facility] Last Admin: 07/16/25 08:29 Dose: 20 mg Propranolol HCl (Propranolol Hcl 40 Mg Tablet) 40 mg PO Q12H PRN; Protocol PRN Reason: Anxiety Last Admin: 07/15/25 04:33 Dose: 40 mg Quetiapine Fumarate (Quetiapine Fumarate 100 Mg Tablet) 100 mg PO BEDTIME [facility] Tamsulosin HCl (Tamsulosin Hcl 0.4 Mg Capsule) 0.4 mg PO BEDTIME [facility] Last Admin: 07/15/25 20:56 Dose: 0.4 mg Trazodone HCl (Trazodone Hcl 50 Mg Tablet) 50 mg PO BEDTIME MRX1 PRN PRN Reason: Insomnia Vitamin D (Cholecalciferol (Vitamin D3) 25 Mcg Tablet) 50 mcg PO DAILY [facility] Last Admin: 07/16/25 08:29 Dose: 50 mcg Allergies Allergies Allergy/AdvReac Type Severity Reaction Status Date / Time SEAFOOD Allergy Severe ANAPHYLAXIS Uncoded 07/14/25 12:55 shellfish Allergy Severe Anaphylaxis Uncoded 07/14/25 12:55 Assessment & Plan Assessment & Plan (1) MDD (major depressive disorder), recurrent, severe, with psychosis: Status: Acute Code(s): F33.3 - Major depressive disorder, recurrent, severe with psychotic symptoms (2) JODY (generalized anxiety disorder): Status: Acute Code(s): F41.1 - Generalized anxiety disorder (3) Opioid use disorder: Status: Acute Code(s): F11.90 - Opioid use, unspecified, uncomplicated Plan Patient is a 55 year old male with hx of MDD, JODY and opioid use d/o who self presented to [facility] ER d/t auditory hallucinations and paranoia secondary to poor sleep. Plan: CV 15 minute safety checks Obtain collateral Start: Seroquel 50mg PO bedtime Increase Luvox to 50mg PO daily encourage groups discharge planning 07/16: Active on unit. Patient reports feeling anxious and having paranoia; pt stated, I woke up scared last night. I'm worried that if I sleep too deep someone will try to hurt me . Pt stated, he understands this sounds psychotic ; per nursing, pt slept 8 hours last night. He agreed to increase in Seroquel; Seroquel increased to 100mg PO bedtime. denies SI/HI/VH/AH. Continue tx plan. Patient educated on: diagnosis and medication risk/benefits Reason for continued inpatient stay Substantial Risk for: med/psych decompensation Time Spent With Patient Time: Total time managing care of this patient today _20___ minutes.
[2025-07-16 20:00] VITALS: BP 118/61; PULSE 68; RESP 16; TEMP 36.9; O2SAT 98
[2025-07-17 08:00] VITALS: BP 92/52; PULSE 61; RESP 16; TEMP 36.9; O2SAT 96
[2025-07-17] MEDS: methADONE HCl 20 MG/2 ML ORAL.CONC 28 MG PO (08:16)
--- NOTE | 2025-07-17 12:09 | P.PNPSI_ITS ---
Subjective Subjective Date of Service: 07/17/25 Reason For Visit: crisis Interim History: Chart reviewed. Case discussed w/ tx team Refused fluvoxamine and amitriptyline last night Pt's outpatient psychiatrist (Dr. Benito Degroot at [facility]) contacted t/w for care coordination. She also sees pt's for psychiatric tx. Per Dr. Oliver- at baseline-pt has somatic preoccupations (r/o illness anxiety d/o). Has latent TB and very fearful that he'll have literal explosion of TB. Won't take anything b/c of his fears about SE. Said low dose fluvoxamine made him dizzy. Pt's PCP at [facility] informed Dr Oliver that pt is overly fixated re: having liver ca, cirrhosis, which is not the case. Pt had brief relapse in Jun but stable on methadone since then. Dr. Oliver wondered if pt may have relapsed again to explain acute sx but t/w informed her that utox was neg for everything aside from methadone (rx'd) Pt's informed Dr. Camargo that pt was paranoid that was poisoning his coffee and about cameras. He's been up all night at home counting and re-counting his pills but not taking them, searching a lot on google, very perseverative. These are new issues. t/w met w/ pt along w/ SW and icebox man. Pt reviewed various somatic concerns that occur when he's stressed, including his veins getting inflamed, his throat feeling like it's closing up, difficulty breathing, increased blood pressure. t/w provided psychoeducation on connection between anxiety and physical sensations, went over breathing exercise. Pt asked do you understand anxiety? and went on to discuss other somatic concerns. He asked for dulcolax for constipation, which is already ordered. t/w ordered one time dose and he told the RN he wants it with his dinner instead. He endorses anxiety that people here want to kill him but recognizes that this is unlikely. He pointed to the camera in his bedroom and gave a peace sign, stated that he was doing a selfie. Medication Compliance: No Mental Status Exam Mental Status Exam Narrative: Appearance: Casually dressed. Grooming/hygiene wnl. Good eye contact Attitude:Cooperative Speech: Japanese speaking. Excessive, requires redirection. Otherwise wnl Motor activity: Calm and without any tics, tremors or dyskinesias. Steady gait Mood: anxious Affect: appropriate, reactive Thought process: perseverative Thought content: somatically preoccupied Perception: does not appear to respond to internal stimuli Insight: fair Judgment: fair Diagnostics Vital Signs (24Hr): Vital Signs - 24 hr 07/16/25 20:00 07/17/25 08:00 Temperature 98.5 F 98.4 F Pulse Rate 68 61 Respiratory Rate 16 16 Blood Pressure 118/61 92/52 L Pulse Oximetry 98 96 Oxygen Delivery Method Room Air Room Air BMI result Body Mass Index 17.9 Labs 07/14/25 13:08 07/14/25 13:08 Imaging Radiology Impressions: ITS Impressions Chest X-Ray 07/14/25 13:12 IMPRESSION: No evidence of acute pulmonary process. Electronically signed by: Rob Summers MD 07/14/2025 01:17 PM [facility] Medications Medications Current Medications Acetaminophen (Acetaminophen 325 Mg Tablet) 650 mg PO Q6H PRN PRN Reason: Headache/Pain, Scale 1-10 Al Hydroxide/Mg Hydroxide (Magnesium Hydrox/Alum Hydrox 30 Ml Oral.Susp) 30 ml PO Q6H PRN PRN Reason: Heartburn/Nausea Amitriptyline HCl (Amitriptyline Hcl 25 Mg Tablet) 25 mg PO BEDTIME [facility] Last Admin: 07/16/25 22:09 Dose: Not Given Atorvastatin Calcium (Atorvastatin Calcium 40 Mg Tablet) 40 mg PO DAILY [facility] Last Admin: 07/17/25 09:24 Dose: 40 mg Bisacodyl (Bisacodyl 5 Mg Tablet.Dr) 10 mg PO BEDTIME [facility] Last Admin: 07/16/25 21:59 Dose: 10 mg Calcium Polycarbophil (Calcium Polycarbophil Tablet) 1 tab PO BID [facility] Last Admin: 07/17/25 09:37 Dose: Not Given Cyanocobalamin (Cyanocobalamin (Vitamin B-12) 1,000 Mcg Tablet) 1,000 mcg PO DAILY [facility] Last Admin: 07/17/25 09:36 Dose: Not Given Famotidine (Famotidine 20 Mg Tablet) 20 mg PO DAILY PRN PRN Reason: GERD Fluticasone Propionate (Fluticasone Propionate Nasal 16 Gm [place]) 1 spray NOSTRIL-B BID [facility] Last Admin: 07/17/25 09:31 Dose: 1 spray Fluvoxamine Maleate (Fluvoxamine Maleate 50 Mg Tablet) 50 mg PO BEDTIME [facility] Last Admin: 07/16/25 22:09 Dose: Not Given Hydroxyzine HCl (Hydroxyzine Hcl 25 Mg Tablet) 25 mg PO Q6H PRN PRN Reason: mild anxiety Last Admin: 07/15/25 20:55 Dose: 25 mg Ipratropium [place] (Ipratropium [place] Leobardo 0.03 % 30 Ml [place]) 1 spray NOSTRIL-B Q12H [facility] Last Admin: 07/17/25 09:34 Dose: Not Given Ketotifen Fumarate (Ketotifen Fumarate 0.025% Oph 5 Ml Drpbtl) 1 drop EYE-BOTH BID PRN PRN Reason: allergies Lidocaine (Lidocaine 4 % Patch Adh..Patch) 1 patch TRANSDERMA DAILY [facility] Last Admin: 07/17/25 09:36 Dose: Not Given Magnesium Hydroxide (Milk Of Magnesia 30 Ml Oral.Susp) 30 ml PO DAILY PRN PRN Reason: Constipation Methadone HCl (Methadone Hcl 20 Mg/2 Ml Oral.Conc) 28 mg PO DAILY [facility] Last Admin: 07/17/25 08:16 Dose: 28 mg Nicotine Polacrilex (Nicotine Polacrilex 2 Mg Gum) 4 mg BUCCAL Q2H PRN PRN Reason: Nicotine Cravings Non-Formulary Medication (Testosterone Cypionate) 200 mg IM Q2W [facility] Omeprazole (Omeprazole 20 Mg Capsule.Dr) 20 mg PO DAILY@0630 [facility] Last Admin: 07/17/25 07:00 Dose: 20 mg Propranolol HCl (Propranolol Hcl 40 Mg Tablet) 40 mg PO Q12H PRN; Protocol PRN Reason: Anxiety Last Admin: 07/15/25 04:33 Dose: 40 mg Quetiapine Fumarate (Quetiapine Fumarate 100 Mg Tablet) 100 mg PO BEDTIME [facility] Last Admin: 07/16/25 22:00 Dose: 100 mg Tamsulosin HCl (Tamsulosin Hcl 0.4 Mg Capsule) 0.4 mg PO BEDTIME [facility] Last Admin: 07/16/25 21:59 Dose: 0.4 mg Trazodone HCl (Trazodone Hcl 50 Mg Tablet) 50 mg PO BEDTIME MRX1 PRN PRN Reason: Insomnia Vitamin D (Cholecalciferol (Vitamin D3) 25 Mcg Tablet) 50 mcg PO DAILY [facility] Last Admin: 07/17/25 09:26 Dose: 25 mcg Allergies Allergies Allergy/AdvReac Type Severity Reaction Status Date / Time SEAFOOD Allergy Severe ANAPHYLAXIS Uncoded 07/14/25 12:55 shellfish Allergy Severe Anaphylaxis Uncoded 07/14/25 12:55 Assessment & Plan Assessment & Plan (1) MDD (major depressive disorder), recurrent, severe, with psychosis: Status: Acute Code(s): F33.3 - Major depressive disorder, recurrent, severe with psychotic symptoms (2) JODY (generalized anxiety disorder): Status: Acute Code(s): F41.1 - Generalized anxiety disorder (3) Opioid use disorder: Status: Acute Code(s): F11.90 - Opioid use, unspecified, uncomplicated Plan Patient is a 55 year old male with hx of MDD, JODY and opioid use d/o who self presented to [facility] d/t auditory hallucinations and paranoia secondary to poor sleep. Plan: CV 15 minute safety checks Obtain collateral Start: Seroquel 50mg PO bedtime Increase Luvox to 50mg PO daily encourage groups discharge planning 07/16: Active on unit. Patient reports feeling anxious and having paranoia; pt stated, I woke up scared last night. I'm worried that if I sleep too deep someone will try to hurt me . Pt stated, he understands this sounds psychotic ; per nursing, pt slept 8 hours last night. He agreed to increase in Seroquel; Seroquel increased to 100mg PO bedtime. denies SI/HI/VH/AH. Continue tx plan. 07/17: Somatically preoccupied. Expressed concern that someone on the unit will try to harm him but recognized it's unlikely. Pt was encouraged to take his medication to reduce anxiety that contributes to uncomfortable physical sensations that he perceives as serious medical issues. Patient educated on: medication risk/benefits and therapeutic strategies Informed Consent: further education needed Reason for continued inpatient stay Substantial Risk for: med/psych decompensation Time Spent With Patient Time: Total time managing care of this patient today ____ minutes.
[2025-07-17 20:00] VITALS: BP 129/73; PULSE 78; RESP 16; TEMP 37.1; O2SAT 99
[2025-07-18] MEDS: Ketotifen Fumarate 0.025% Oph 5 ML DRPBTL 1 DROP EYE-BOTH (03:32)
[2025-07-18 07:44] VITALS: BP 120/68; PULSE 64; RESP 18; TEMP 36.6; O2SAT 98
[2025-07-18] MEDS: methADONE HCl 20 MG/2 ML ORAL.CONC 28 MG PO (08:09)
--- NOTE | 2025-07-18 09:15 | P.PNPSI_ITS ---
Subjective Subjective Date of Service: 07/18/25 Reason For Visit: crisis Interim History: Chart reviewed. Seen with site interpreter. Remains somatically preoccupied. He complains of neck pain going down his spine. He says he feels regular . Refused Amitriptyline but took Luvox last night. He is suspicious about medications. He remains guarded and withdrawn. Observed reading the bible in the day room. Visible but doesn't engage. Slept OK he says. Denies SI. Review of Systems Review of Systems Denies any shortness of breath, chest pain, headaches, dysuria, abdominal pain or discomfort, nausea, vomiting or diarrhea. Denies fever or chills. Yes all other systems are reviewed and are negative Mental Status Exam Mental Status Exam Patient Appearance: Appropriate and Malodorous Patient Orientation: Person, Place, Time and Situation Level of Consciousness: Awake and Alert Patient Behavior: Appropriate, Cooperative and Good Eye Contact Mood Description: Depressed and Anxious Affect Description: Depressed Ability to Follow Directions: Good Speech Pattern: Clear Memory Description: Intact Diagnostics Vital Signs (24Hr): Vital Signs - 24 hr 07/17/25 20:00 07/18/25 07:44 Temperature 98.8 F 98 F Pulse Rate 78 64 Respiratory Rate 16 18 Blood Pressure 129/73 120/68 Pulse Oximetry 99 98 Oxygen Delivery Method Room Air Room Air BMI result Body Mass Index 17.9 Labs 07/14/25 13:08 07/14/25 13:08 Imaging Radiology Impressions: ITS Impressions Chest X-Ray 07/14/25 13:12 IMPRESSION: No evidence of acute pulmonary process. Electronically signed by: Rob Summers MD 07/14/2025 01:17 PM [facility] Medications Medications Current Medications Acetaminophen (Acetaminophen 325 Mg Tablet) 650 mg PO Q6H PRN PRN Reason: Headache/Pain, Scale 1-10 Last Admin: 07/17/25 20:57 Dose: 650 mg Al Hydroxide/Mg Hydroxide (Magnesium Hydrox/Alum Hydrox 30 Ml Oral.Susp) 30 ml PO Q6H PRN PRN Reason: Heartburn/Nausea Amitriptyline HCl (Amitriptyline Hcl 25 Mg Tablet) 25 mg PO BEDTIME [facility] Last Admin: 07/17/25 20:50 Dose: Not Given Atorvastatin Calcium (Atorvastatin Calcium 40 Mg Tablet) 40 mg PO DAILY [facility] Last Admin: 07/18/25 08:59 Dose: 40 mg Bisacodyl (Bisacodyl 5 Mg Tablet.Dr) 10 mg PO DAILY@1700 [facility] Last Admin: 07/17/25 17:09 Dose: 10 mg Calcium Polycarbophil (Calcium Polycarbophil Tablet) 1 tab PO BID [facility] Last Admin: 07/18/25 09:06 Dose: Not Given Cyanocobalamin (Cyanocobalamin (Vitamin B-12) 1,000 Mcg Tablet) 1,000 mcg PO DAILY@1700 [facility] Last Admin: 07/17/25 17:09 Dose: 1,000 mcg Famotidine (Famotidine 20 Mg Tablet) 20 mg PO DAILY PRN PRN Reason: GERD Last Admin: 07/18/25 03:31 Dose: 20 mg Fluticasone Propionate (Fluticasone Propionate Nasal 16 Gm [place]) 1 spray NOSTRIL-B BID [facility] Last Admin: 07/18/25 09:02 Dose: Not Given Fluvoxamine Maleate (Fluvoxamine Maleate 50 Mg Tablet) 50 mg PO BEDTIME [facility] Last Admin: 07/17/25 20:47 Dose: 50 mg Hydroxyzine HCl (Hydroxyzine Hcl 25 Mg Tablet) 25 mg PO Q6H PRN PRN Reason: mild anxiety Last Admin: 07/15/25 20:55 Dose: 25 mg Ipratropium [place] (Ipratropium [place] Leobardo 0.03 % 30 Ml [place]) 1 spray NOSTRIL-B Q12H [facility] Last Admin: 07/18/25 08:58 Dose: Not Given Ketotifen Fumarate (Ketotifen Fumarate 0.025% Oph 5 Ml [place]) 1 drop EYE-BOTH BID PRN PRN Reason: allergies Last Admin: 07/18/25 03:32 Dose: 1 drop Lidocaine (Lidocaine 4 % Patch Adh..Patch) 1 patch TRANSDERMA DAILY [facility] Last Admin: 07/18/25 09:01 Dose: Not Given Magnesium Hydroxide (Milk Of Magnesia 30 Ml Oral.Susp) 30 ml PO DAILY PRN PRN Reason: Constipation Methadone HCl (Methadone Hcl 20 Mg/2 Ml Oral.Conc) 28 mg PO DAILY [facility] Last Admin: 07/18/25 08:09 Dose: 28 mg Nicotine Polacrilex (Nicotine Polacrilex 2 Mg Gum) 4 mg BUCCAL Q2H PRN PRN Reason: Nicotine Cravings Non-Formulary Medication (Testosterone Cypionate) 200 mg IM Q2W [facility] Omeprazole (Omeprazole 20 Mg Capsule.Dr) 20 mg PO DAILY@0630 [facility] Last Admin: 07/18/25 06:58 Dose: Not Given Propranolol HCl (Propranolol Hcl 40 Mg Tablet) 40 mg PO Q12H PRN; Protocol PRN Reason: Anxiety Last Admin: 07/15/25 04:33 Dose: 40 mg Quetiapine Fumarate (Quetiapine Fumarate 100 Mg Tablet) 100 mg PO BEDTIME [facility] Last Admin: 07/17/25 20:47 Dose: 100 mg Tamsulosin HCl (Tamsulosin Hcl 0.4 Mg Capsule) 0.4 mg PO BEDTIME [facility] Last Admin: 07/17/25 20:46 Dose: 0.4 mg Trazodone HCl (Trazodone Hcl 50 Mg Tablet) 50 mg PO BEDTIME MRX1 PRN PRN Reason: Insomnia Vitamin D (Cholecalciferol (Vitamin D3) 25 Mcg Tablet) 50 mcg PO DAILY [facility] Last Admin: 07/18/25 09:06 Dose: Not Given Allergies Allergies Allergy/AdvReac Type Severity Reaction Status Date / Time SEAFOOD Allergy Severe ANAPHYLAXIS Uncoded 07/14/25 12:55 shellfish Allergy Severe Anaphylaxis Uncoded 07/14/25 12:55 Assessment & Plan Assessment & Plan (1) MDD (major depressive disorder), recurrent, severe, with psychosis: Status: Acute Code(s): F33.3 - Major depressive disorder, recurrent, severe with psychotic symptoms (2) JODY (generalized anxiety disorder): Status: Acute Code(s): F41.1 - Generalized anxiety disorder (3) Opioid use disorder: Status: Acute Code(s): F11.90 - Opioid use, unspecified, uncomplicated Plan Patient is a 55 year old male with hx of MDD, JODY and opioid use d/o who self presented to [facility] ER d/t auditory hallucinations and paranoia secondary to poor sleep. Plan: CV 15 minute safety checks Obtain collateral Start: Seroquel 50mg PO bedtime Increase Luvox to 50mg PO daily encourage groups discharge planning 07/16: Active on unit. Patient reports feeling anxious and having paranoia; pt stated, I woke up scared last night. I'm worried that if I sleep too deep someone will try to hurt me . Pt stated, he understands this sounds psychotic ; per nursing, pt slept 8 hours last night. He agreed to increase in Seroquel; Seroquel increased to 100mg PO bedtime. denies SI/HI/VH/AH. Continue tx plan. 07/17: Somatically preoccupied. Expressed concern that someone on the unit will try to harm him but recognized it's unlikely. Pt was encouraged to take his medication to reduce anxiety that contributes to uncomfortable physical sensations that he perceives as serious medical issues. 07/18: continue current management and treatment plan. Reason for continued inpatient stay Substantial Risk for: inability to function and rapid decompensation Time Spent With Patient Time: Total time managing care of this patient today ____ minutes.
--- NOTE | 2025-07-18 17:02 | PC.NURSE ---
Pt refused to take bisacodyl or vitamin B12 tonight, he wants to take them tomorrow morning.
[2025-07-18] MEDS: Magnesium Hydrox/Alum Hydrox 30 ML ORAL.SUSP PO (17:56)
[2025-07-18 20:00] VITALS: BP 135/65; PULSE 81; RESP 16; TEMP 37.2; O2SAT 99
[2025-07-19] MEDS: methADONE HCl 20 MG/2 ML ORAL.CONC 28 MG PO (07:57)
[2025-07-19 08:00] VITALS: BP 107/55; PULSE 61; RESP 14; TEMP 36.9; O2SAT 97
[2025-07-19] MEDS: Milk of Magnesia 30 ML ORAL.SUSP PO (08:01)
--- NOTE | 2025-07-19 09:37 | HO.PSYCHPN ---
Subjective Subjective Date of Service: 07/19/25 Reason For Visit: crisis Interim History: Chart reviewed. Seen with mill control operator. Patient remains paranoid about medications. Questioning every medication he takes. Refusing some medications. Questions whether what he is getting is the real medicine. Believes he has an ailment that is going to kill him in the next few days. Remains somatically preoccupied.He says his liver is going to explode. Refused Amitriptyline but took Luvox last night. He is suspicious about medications. He remains guarded and withdrawn. Observed reading the bible in the day room. Visible but doesn't engage. Slept OK he says. I don't trust anyone here . He says he has trouble sleeping. Offered patient Mirtazapine but patient refused. Denies SI. Review of Systems Review of Systems Denies any shortness of breath, chest pain, headaches, dysuria, abdominal pain or discomfort, nausea, vomiting or diarrhea. Denies fever or chills. Yes all other systems are reviewed and are negative Mental Status Exam Mental Status Exam Patient Appearance: Appropriate and Malodorous Patient Orientation: Person, Place, Time and Situation Level of Consciousness: Awake and Alert Patient Behavior: Appropriate, Cooperative and Good Eye Contact Mood Description: Depressed and Anxious Affect Description: Depressed Ability to Follow Directions: Good Speech Pattern: Clear Memory Description: Intact Diagnostics Vital Signs (24Hr): Vital Signs - 24 hr 07/18/25 20:00 07/19/25 08:00 Temperature 99 F 98.4 F Pulse Rate 81 61 Respiratory Rate 16 14 Blood Pressure 135/65 107/55 L Pulse Oximetry 99 97 Oxygen Delivery Method Room Air Room Air BMI result Body Mass Index 17.9 Labs 07/14/25 13:08 07/14/25 13:08 Imaging Radiology Impressions: ITS Impressions Chest X-Ray 07/14/25 13:12 IMPRESSION: No evidence of acute pulmonary process. Electronically signed by: Rob Summers MD 07/14/2025 01:17 PM [facility] Medications Medications Current Medications Acetaminophen (Acetaminophen 325 Mg Tablet) 650 mg PO Q6H PRN PRN Reason: Headache/Pain, Scale 1-10 Last Admin: 07/18/25 21:16 Dose: 650 mg Al Hydroxide/Mg Hydroxide (Magnesium Hydrox/Alum Hydrox 30 Ml Oral.Susp) 30 ml PO Q6H PRN PRN Reason: Heartburn/Nausea Last Admin: 07/18/25 17:56 Dose: 30 ml Amitriptyline HCl (Amitriptyline Hcl 25 Mg Tablet) 25 mg PO BEDTIME [facility] Last Admin: 07/18/25 21:15 Dose: Not Given Atorvastatin Calcium (Atorvastatin Calcium 40 Mg Tablet) 40 mg PO DAILY [facility] Last Admin: 07/18/25 08:59 Dose: 40 mg Bisacodyl (Bisacodyl 5 Mg Tablet.Dr) 10 mg PO DAILY@1700 [facility] Last Admin: 07/18/25 19:00 Dose: 10 mg Calcium Polycarbophil (Calcium Polycarbophil Tablet) 1 tab PO BID [facility] Last Admin: 07/18/25 21:56 Dose: Not Given Cyanocobalamin (Cyanocobalamin (Vitamin B-12) 1,000 Mcg Tablet) 1,000 mcg PO DAILY@1700 [facility] Last Admin: 07/18/25 17:01 Dose: Not Given Famotidine (Famotidine 20 Mg Tablet) 20 mg PO DAILY PRN PRN Reason: GERD Last Admin: 07/18/25 03:31 Dose: 20 mg Fluticasone Propionate (Fluticasone Propionate Nasal 16 Gm [place]) 1 spray NOSTRIL-B BID [facility] Last Admin: 07/19/25 08:16 Dose: Not Given Fluvoxamine Maleate (Fluvoxamine Maleate 50 Mg Tablet) 50 mg PO BEDTIME [facility] Last Admin: 07/18/25 21:12 Dose: 50 mg Hydroxyzine HCl (Hydroxyzine Hcl 25 Mg Tablet) 25 mg PO Q6H PRN PRN Reason: mild anxiety Last Admin: 07/15/25 20:55 Dose: 25 mg Ipratropium [place] (Ipratropium [place] Leobardo 0.03 % 30 Ml [place]) 1 spray NOSTRIL-B Q12H [facility] Last Admin: 07/19/25 08:16 Dose: Not Given Ketotifen Fumarate (Ketotifen Fumarate 0.025% Oph 5 Ml Drpbtl) 1 drop EYE-BOTH BID PRN PRN Reason: allergies Last Admin: 07/18/25 03:32 Dose: 1 drop Lidocaine (Lidocaine 4 % Patch Adh..Patch) 1 patch TRANSDERMA DAILY [facility] Last Admin: 07/18/25 09:01 Dose: Not Given Magnesium Hydroxide (Milk Of Magnesia 30 Ml Oral.Susp) 30 ml PO DAILY PRN PRN Reason: Constipation Last Admin: 07/19/25 08:01 Dose: 30 ml Methadone HCl (Methadone Hcl 20 Mg/2 Ml Oral.Conc) 28 mg PO DAILY [facility] Last Admin: 07/19/25 07:57 Dose: 28 mg Nicotine Polacrilex (Nicotine Polacrilex 2 Mg Gum) 4 mg BUCCAL Q2H PRN PRN Reason: Nicotine Cravings Non-Formulary Medication (Testosterone Cypionate) 200 mg IM Q2W [facility] Omeprazole (Omeprazole 20 Mg Capsule.Dr) 20 mg PO DAILY@0630 [facility] Last Admin: 07/19/25 08:07 Dose: 20 mg Propranolol HCl (Propranolol Hcl 40 Mg Tablet) 40 mg PO Q12H PRN; Protocol PRN Reason: Anxiety Last Admin: 07/15/25 04:33 Dose: 40 mg Quetiapine Fumarate (Quetiapine Fumarate 100 Mg Tablet) 100 mg PO BEDTIME [facility] Last Admin: 07/18/25 21:12 Dose: 100 mg Tamsulosin HCl (Tamsulosin Hcl 0.4 Mg Capsule) 0.4 mg PO BEDTIME [facility] Last Admin: 07/18/25 21:12 Dose: 0.4 mg Trazodone HCl (Trazodone Hcl 50 Mg Tablet) 50 mg PO BEDTIME MRX1 PRN PRN Reason: Insomnia Vitamin D (Cholecalciferol (Vitamin D3) 25 Mcg Tablet) 50 mcg PO DAILY [facility] Last Admin: 07/18/25 09:06 Dose: Not Given Allergies Allergies Allergy/AdvReac Type Severity Reaction Status Date / Time SEAFOOD Allergy Severe ANAPHYLAXIS Uncoded 07/14/25 12:55 shellfish Allergy Severe Anaphylaxis Uncoded 07/14/25 12:55 Assessment & Plan Assessment & Plan (1) MDD (major depressive disorder), recurrent, severe, with psychosis: Status: Acute Code(s): F33.3 - Major depressive disorder, recurrent, severe with psychotic symptoms (2) JODY (generalized anxiety disorder): Status: Acute Code(s): F41.1 - Generalized anxiety disorder (3) Opioid use disorder: Status: Acute Code(s): F11.90 - Opioid use, unspecified, uncomplicated Plan Patient is a 55 year old male with hx of MDD, JODY and opioid use d/o who self presented to [facility] ER d/t auditory hallucinations and paranoia secondary to poor sleep. Plan: CV 15 minute safety checks Obtain collateral Start: Seroquel 50mg PO bedtime Increase Luvox to 50mg PO daily encourage groups discharge planning 07/16: Active on unit. Patient reports feeling anxious and having paranoia; pt stated, I woke up scared last night. I'm worried that if I sleep too deep someone will try to hurt me . Pt stated, he understands this sounds psychotic ; per nursing, pt slept 8 hours last night. He agreed to increase in Seroquel; Seroquel increased to 100mg PO bedtime. denies SI/HI/VH/AH. Continue tx plan. 07/17: Somatically preoccupied. Expressed concern that someone on the unit will try to harm him but recognized it's unlikely. Pt was encouraged to take his medication to reduce anxiety that contributes to uncomfortable physical sensations that he perceives as serious medical issues. 07/18: continue current management and treatment plan. 07/19: continue current management and treatment plan. Reason for continued inpatient stay Substantial Risk for: inability to function and rapid decompensation Time Spent With Patient Time: Total time managing care of this patient today ____ minutes.
[2025-07-19 19:45] VITALS: BP 124/57; PULSE 78; RESP 17; TEMP 37.3; O2SAT 96
[2025-07-20 04:05] VITALS: BP 168/85; PULSE 108; RESP 20; O2SAT 95
[2025-07-20 04:40] VITALS: BP 127/60; PULSE 75; RESP 18; O2SAT 96
--- NOTE | 2025-07-20 04:59 | PC.NURSE ---
John RV awoke at approximately 0400 c/o feeling like he couldn't breath. he was visibly tense and appeared upset. B/P while standing 168/85 Pulse 108 Saturation level 95%. vital signs rechecked approximately 30 minutes later 127/60, 75 with a saturation level of 96%. patient declined Atarax for visible anxiety. he accepted 325mg of Tylenol, instead of the full dose order of 650mg, because I think I'm going to have a headache patient repeatedly asked why this was happening to him, stating I think something bad is happening, and disregarded all position suggestions and each explanation or possible cause for his symptoms. Patient had stated that he wakes up every morning at 4am and doesn't feel well. John was reassured that his vital signs were well within normal paramiters and that applying oxygen when it is not needed is detrimental. Patient instructed to speak with provider regarding his symptoms and concerns patient declined any intervention except 325mg of Tylenol
[2025-07-20 07:44] VITALS: BP 114/55; PULSE 67; RESP 16; TEMP 37.2; O2SAT 98
[2025-07-20] MEDS: methADONE HCl 20 MG/2 ML ORAL.CONC 28 MG PO (08:24)
--- NOTE | 2025-07-20 09:55 | PC.NURSE ---
Patient c/o chest pain this morning. Vitals taken; BP 149/72, HR 101, o2 98. Pt endorsed some anxiety, but declined any medications offered. Provider Yanet Stewart notified via tiger text
--- NOTE | 2025-07-20 15:46 | HO.PSYCHPN ---
Subjective Subjective Date of Service: 07/20/25 Reason For Visit: crisis Subjective Notes: Conditional Voluntary Interim History: Active on unit. bottle label inspector present. Patient continues anxious, guarded, paranoid; he reports not taking all medications that are prescribed d/t not knowing if I can trust you guys . Patient is concerned someone here would try to hurt him but is unable to explain why. He expresses concerns of possible side effects and being alone ; pt reassured there is staff 26/03 and if he were to have a side effect, nursing staff would be available. Discussed taking antipsychotics. risks/benefits reviewed; pt reports he will think about it . Start: Haldol 5mg TID PRN psychosis/agitation. Medication Compliance: Intermittent Side effects from medications: No Attending Groups: No Mental Status Exam Mental Status Exam Narrative: Pt is alert and oriented; behavior is cooperative, guarded; dressed in casual attire; mood is described as anxious ; eye contact appropriate; Speech is normal rate, volume and not pressured; thought process is organized Thought content is on tx; paranoid about someone possibly hurting him on the unit; denies SI/HI/VH/AH. Diagnostics Vital Signs (24Hr): Vital Signs - 24 hr 07/19/25 19:45 07/20/25 04:05 07/20/25 04:40 Temperature 99.1 F Pulse Rate 78 108 H 75 Respiratory Rate 17 20 18 Blood Pressure 124/57 L 168/85 H 127/60 Pulse Oximetry 96 95 96 Oxygen Delivery Method Room Air Room Air Room Air 07/20/25 07:44 Temperature 99.0 F Pulse Rate 67 Respiratory Rate 16 Blood Pressure 114/55 L Pulse Oximetry 98 Oxygen Delivery Method Room Air BMI result Body Mass Index 17.9 Labs 07/14/25 13:08 07/14/25 13:08 Imaging Radiology Impressions: ITS Impressions Chest X-Ray 07/14/25 13:12 IMPRESSION: No evidence of acute pulmonary process. Electronically signed by: Rob Summers MD 07/14/2025 01:17 PM [facility] Medications Medications Current Medications Acetaminophen (Acetaminophen 325 Mg Tablet) 650 mg PO Q6H PRN PRN Reason: Headache/Pain, Scale 1-10 Last Admin: 07/20/25 04:55 Dose: 325 mg Al Hydroxide/Mg Hydroxide (Magnesium Hydrox/Alum Hydrox 30 Ml Oral.Susp) 30 ml PO Q6H PRN PRN Reason: Heartburn/Nausea Last Admin: 07/18/25 17:56 Dose: 30 ml Amitriptyline HCl (Amitriptyline Hcl 25 Mg Tablet) 25 mg PO BEDTIME [facility] Last Admin: 07/19/25 22:04 Dose: 25 mg Atorvastatin Calcium (Atorvastatin Calcium 40 Mg Tablet) 40 mg PO DAILY [facility] Last Admin: 07/20/25 09:11 Dose: 40 mg Bisacodyl (Bisacodyl 5 Mg Tablet.Dr) 10 mg PO DAILY@1700 [facility] Last Admin: 07/19/25 16:32 Dose: Not Given Cyanocobalamin (Cyanocobalamin (Vitamin B-12) 1,000 Mcg Tablet) 1,000 mcg PO DAILY@1700 [facility] Last Admin: 07/19/25 16:32 Dose: Not Given Famotidine (Famotidine 20 Mg Tablet) 20 mg PO DAILY PRN PRN Reason: GERD Last Admin: 07/18/25 03:31 Dose: 20 mg Fluvoxamine Maleate (Fluvoxamine Maleate 50 Mg Tablet) 50 mg PO BEDTIME [facility] Last Admin: 07/19/25 22:09 Dose: Not Given Hydroxyzine HCl (Hydroxyzine Hcl 25 Mg Tablet) 25 mg PO Q6H PRN PRN Reason: mild anxiety Last Admin: 07/15/25 20:55 Dose: 25 mg Ketotifen Fumarate (Ketotifen Fumarate 0.025% Oph 5 Ml Drpbtl) 1 drop EYE-BOTH BID PRN PRN Reason: allergies Last Admin: 07/18/25 03:32 Dose: 1 drop Magnesium Hydroxide (Milk Of Magnesia 30 Ml Oral.Susp) 30 ml PO DAILY PRN PRN Reason: Constipation Last Admin: 07/19/25 08:01 Dose: 30 ml Methadone HCl (Methadone Hcl 20 Mg/2 Ml Oral.Conc) 28 mg PO DAILY [facility] Last Admin: 07/20/25 08:24 Dose: 28 mg Nicotine Polacrilex (Nicotine Polacrilex 2 Mg Gum) 4 mg BUCCAL Q2H PRN PRN Reason: Nicotine Cravings Omeprazole (Omeprazole 20 Mg Capsule.Dr) 20 mg PO DAILY@0630 [facility] Last Admin: 07/20/25 09:16 Dose: 20 mg Propranolol HCl (Propranolol Hcl 40 Mg Tablet) 40 mg PO Q12H PRN; Protocol PRN Reason: Anxiety Last Admin: 07/15/25 04:33 Dose: 40 mg Quetiapine Fumarate (Quetiapine Fumarate 100 Mg Tablet) 100 mg PO BEDTIME [facility] Last Admin: 07/19/25 22:05 Dose: 100 mg Tamsulosin HCl (Tamsulosin Hcl 0.4 Mg Capsule) 0.4 mg PO BEDTIME [facility] Last Admin: 07/19/25 22:07 Dose: 0.4 mg Trazodone HCl (Trazodone Hcl 50 Mg Tablet) 50 mg PO BEDTIME MRX1 PRN PRN Reason: Insomnia Vitamin D (Cholecalciferol (Vitamin D3) 25 Mcg Tablet) 50 mcg PO DAILY [facility] Last Admin: 07/20/25 09:11 Dose: 50 mcg Allergies Allergies Allergy/AdvReac Type Severity Reaction Status Date / Time SEAFOOD Allergy Severe ANAPHYLAXIS Uncoded 07/14/25 12:55 shellfish Allergy Severe Anaphylaxis Uncoded 07/14/25 12:55 Assessment & Plan Assessment & Plan (1) MDD (major depressive disorder), recurrent, severe, with psychosis: Status: Acute Code(s): F33.3 - Major depressive disorder, recurrent, severe with psychotic symptoms (2) JODY (generalized anxiety disorder): Status: Acute Code(s): F41.1 - Generalized anxiety disorder (3) Opioid use disorder: Status: Acute Code(s): F11.90 - Opioid use, unspecified, uncomplicated Plan Patient is a 55 year old male with hx of MDD, JODY and opioid use d/o who self presented [place] [facility] [place]/t auditory hallucinations and paranoia secondary to poor sleep. Plan: CV 15 minute safety checks Obtain collateral Start: Seroquel 50mg PO bedtime Increase Luvox to 50mg PO daily encourage groups discharge planning 07/16: Active on unit. Patient reports feeling anxious and having paranoia; pt stated, I woke up scared last night. I'm worried that if I sleep too deep someone will try to hurt me . Pt stated, he understands this sounds psychotic ; per nursing, pt slept 8 hours last night. He agreed to increase in Seroquel; Seroquel increased to 100mg PO bedtime. denies SI/HI/VH/AH. Continue tx plan. 07/17: Somatically preoccupied. Expressed concern that someone on the unit will try to harm him but recognized it's unlikely. Pt was encouraged to take his medication to reduce anxiety that contributes to uncomfortable physical sensations that he perceives as serious medical issues. 07/18: continue current management and treatment plan. 07/19: continue current management and treatment plan. 07/20: Active on unit. bottle label inspector present. Patient continues anxious, guarded, paranoid; he reports not taking all medications that are prescribed d/t not knowing if I can trust you guys . Patient is concerned someone here would try to hurt him but is unable to explain why. He expresses concerns of possible side effects and being alone ; pt reassured there is staff 26/03 and if he were to have a side effect, nursing staff would be available. Discussed taking antipsychotics. risks/benefits reviewed; pt reports he will think about it . Start: Haldol 5mg TID PRN psychosis/agitation Patient educated on: diagnosis, medication risk/benefits and therapeutic strategies Reason for continued inpatient stay Substantial Risk for: med/psych decompensation Time Spent With Patient Time: Total time managing care of this patient today _20___ minutes.
[2025-07-20 19:10] VITALS: BP 161/77; PULSE 75; RESP 16; TEMP 37; O2SAT 98
[2025-07-20 21:25] VITALS: BP 146/72; PULSE 75; RESP 16
[2025-07-21 07:40] VITALS: BP 120/67; PULSE 70; RESP 16; TEMP 36.7; O2SAT 99
[2025-07-21] MEDS: methADONE HCl 20 MG/2 ML ORAL.CONC 28 MG PO (09:30)
--- NOTE | 2025-07-21 16:23 | PC.NURSE ---
John Ro declined to take a PRN Haldol at 1600.
--- NOTE | 2025-07-21 16:31 | HO.PSYCHPN ---
Subjective Subjective Date of Service: 07/21/25 Reason For Visit: crisis Subjective Notes: Conditional Voluntary Interim History: Active on unit. drum operator present. Patient continues anxious and paranoid; continues concerned one of the patient's may try to hurt him . He continues with concerns of possible side effects of taking medications; after educating patient multiple times regarding antipsychotics; pt agreeable and took Haldol 5mg PO once; he denied any side effects. Patient focused on somatic complaints; pt stated, I feel like the side of my head is getting bigger . denies SI/HI/VH/AH. Continue tx plan. Medication Compliance: Intermittent Side effects from medications: No Attending Groups: Intermittent Mental Status Exam Mental Status Exam Narrative: Pt is alert and oriented; behavior is cooperative, calm; dressed in casual attire; mood is described as anxious ; eye contact appropriate; Speech is normal rate, volume and not pressured; thought process is organized; Thought content is on tx; paranoid about someone possibly hurting him on the unit; denies SI/HI/VH/AH. Diagnostics Vital Signs (24Hr): Vital Signs - 24 hr 07/20/25 19:10 07/20/25 21:25 07/21/25 07:40 Temperature 98.6 F 98.1 F Pulse Rate 75 75 70 Respiratory Rate 16 16 16 Blood Pressure 161/77 H 146/72 H 120/67 Pulse Oximetry 98 99 Oxygen Delivery Method Room Air Room Air BMI result Body Mass Index 17.9 Labs 07/14/25 13:08 07/14/25 13:08 Imaging Radiology Impressions: ITS Impressions Chest X-Ray 07/14/25 13:12 IMPRESSION: No evidence of acute pulmonary process. Electronically signed by: Rob Summers MD 07/14/2025 01:17 PM [facility] Medications Medications Current Medications Acetaminophen (Acetaminophen 325 Mg Tablet) 650 mg PO Q6H PRN PRN Reason: Headache/Pain, Scale 1-10 Last Admin: 07/21/25 09:29 Dose: 650 mg Al Hydroxide/Mg Hydroxide (Magnesium Hydrox/Alum Hydrox 30 Ml Oral.Susp) 30 ml PO Q6H PRN PRN Reason: Heartburn/Nausea Last Admin: 07/18/25 17:56 Dose: 30 ml Amitriptyline HCl (Amitriptyline Hcl 25 Mg Tablet) 25 mg PO BEDTIME [facility] Last Admin: 07/21/25 00:44 Dose: Not Given Atorvastatin Calcium (Atorvastatin Calcium 40 Mg Tablet) 40 mg PO DAILY [facility] Last Admin: 07/21/25 09:33 Dose: 40 mg Bisacodyl (Bisacodyl 5 Mg Tablet.Dr) 10 mg PO DAILY@1700 [facility] Last Admin: 07/20/25 17:34 Dose: Not Given Cyanocobalamin (Cyanocobalamin (Vitamin B-12) 1,000 Mcg Tablet) 1,000 mcg PO DAILY@1700 [facility] Last Admin: 07/20/25 17:33 Dose: 1,000 mcg Famotidine (Famotidine 20 Mg Tablet) 20 mg PO DAILY PRN PRN Reason: GERD Last Admin: 07/18/25 03:31 Dose: 20 mg Fluvoxamine Maleate (Fluvoxamine Maleate 50 Mg Tablet) 50 mg PO BEDTIME [facility] Last Admin: 07/20/25 22:47 Dose: 50 mg Haloperidol (Haloperidol 5 Mg Tablet) 5 mg PO TID PRN PRN Reason: psychosis/agitation Last Admin: 07/21/25 11:45 Dose: 5 mg Hydroxyzine HCl (Hydroxyzine Hcl 25 Mg Tablet) 25 mg PO Q6H PRN PRN Reason: mild anxiety Last Admin: 07/15/25 20:55 Dose: 25 mg Ketotifen Fumarate (Ketotifen Fumarate 0.025% Oph 5 Ml Drpbtl) 1 drop EYE-BOTH BID PRN PRN Reason: allergies Last Admin: 07/18/25 03:32 Dose: 1 drop Magnesium Hydroxide (Milk Of Magnesia 30 Ml Oral.Susp) 30 ml PO DAILY PRN PRN Reason: Constipation Last Admin: 07/19/25 08:01 Dose: 30 ml Methadone HCl (Methadone Hcl 20 Mg/2 Ml Oral.Conc) 28 mg PO DAILY [facility] Last Admin: 07/21/25 09:30 Dose: 28 mg Nicotine Polacrilex (Nicotine Polacrilex 2 Mg Gum) 4 mg BUCCAL Q2H PRN PRN Reason: Nicotine Cravings Omeprazole (Omeprazole 20 Mg Capsule.Dr) 20 mg PO DAILY@0630 [facility] Last Admin: 07/21/25 09:32 Dose: 20 mg Propranolol HCl (Propranolol Hcl 40 Mg Tablet) 40 mg PO Q12H PRN; Protocol PRN Reason: Anxiety Last Admin: 07/15/25 04:33 Dose: 40 mg Quetiapine Fumarate (Quetiapine Fumarate 100 Mg Tablet) 100 mg PO BEDTIME [facility] Last Admin: 07/20/25 22:54 Dose: 100 mg Quetiapine Fumarate (Quetiapine Fumarate 50 Mg Tablet) 50 mg PO BID PRN PRN Reason: severe anxiety Last Admin: 07/20/25 20:26 Dose: 50 mg Tamsulosin HCl (Tamsulosin Hcl 0.4 Mg Capsule) 0.4 mg PO BEDTIME [facility] Last Admin: 07/20/25 22:45 Dose: 0.4 mg Trazodone HCl (Trazodone Hcl 50 Mg Tablet) 50 mg PO BEDTIME MRX1 PRN PRN Reason: Insomnia Vitamin D (Cholecalciferol (Vitamin D3) 25 Mcg Tablet) 50 mcg PO DAILY [facility] Last Admin: 07/21/25 09:33 Dose: 50 mcg Allergies Allergies Allergy/AdvReac Type Severity Reaction Status Date / Time SEAFOOD Allergy Severe ANAPHYLAXIS Uncoded 07/14/25 12:55 shellfish Allergy Severe Anaphylaxis Uncoded 07/14/25 12:55 Assessment & Plan Assessment & Plan (1) MDD (major depressive disorder), recurrent, severe, with psychosis: Status: Acute Code(s): F33.3 - Major depressive disorder, recurrent, severe with psychotic symptoms (2) JODY (generalized anxiety disorder): Status: Acute Code(s): F41.1 - Generalized anxiety disorder (3) Opioid use disorder: Status: Acute Code(s): F11.90 - Opioid use, unspecified, uncomplicated Plan Patient is a 55 year old male with hx of MDD, JODY and opioid use d/o who self presented to [facility] d/t auditory hallucinations and paranoia secondary to poor sleep. Plan: CV 15 minute safety checks Obtain collateral Start: Seroquel 50mg PO bedtime Increase Luvox to 50mg PO daily encourage groups discharge planning 07/16: Active on unit. Patient reports feeling anxious and having paranoia; pt stated, I woke up scared last night. I'm worried that if I sleep too deep someone will try to hurt me . Pt stated, he understands this sounds psychotic ; per nursing, pt slept 8 hours last night. He agreed to increase in Seroquel; Seroquel increased to 100mg PO bedtime. denies SI/HI/VH/AH. Continue tx plan. 07/17: Somatically preoccupied. Expressed concern that someone on the unit will try to harm him but recognized it's unlikely. Pt was encouraged to take his medication to reduce anxiety that contributes to uncomfortable physical sensations that he perceives as serious medical issues. 07/18: continue current management and treatment plan. 07/19: continue current management and treatment plan. 07/20: Active on unit. drum operator present. Patient continues anxious, guarded, paranoid; he reports not taking all medications that are prescribed d/t not knowing if I can trust you guys . Patient is concerned someone here would try to hurt him but is unable to explain why. He expresses concerns of possible side effects and being alone ; pt reassured there is staff 26/03 and if he were to have a side effect, nursing staff would be available. Discussed taking antipsychotics. risks/benefits reviewed; pt reports he will think about it . Start: Haldol 5mg TID PRN psychosis/agitation 07/21: Active on unit. drum operator present. Patient continues anxious and paranoid; continues concerned one of the patient's may try to hurt him . He continues with concerns of possible side effects of taking medications; after educating patient multiple times regarding antipsychotics; pt agreeable and took Haldol 5mg PO once; he denied any side effects. Patient focused on somatic complaints; pt stated, I feel like the side of my head is getting bigger . denies SI/HI/VH/AH. Continue tx plan. Patient educated on: diagnosis and medication risk/benefits Reason for continued inpatient stay Substantial Risk for: med/psych decompensation Time Spent With Patient Time: Total time managing care of this patient today _30___ minutes.
--- NOTE | 2025-07-21 17:24 | PC.NURSE ---
John Ro requested and took PRN Haldol around 17:20
[2025-07-21 19:55] VITALS: BP 117/66; PULSE 70; RESP 16; TEMP 36.9; O2SAT 97
[2025-07-22] MEDS: methADONE HCl 20 MG/2 ML ORAL.CONC 28 MG PO (08:23)
--- NOTE | 2025-07-22 09:01 | P.PNPSI_ITS ---
Subjective Subjective Date of Service: 07/22/25 Reason For Visit: crisis Subjective Notes: Conditional Voluntary Interim History: sales agent pest control service present. Patient continues anxious and paranoid; Patient reports paranoia has decreased with taking Haldol 5mg PO; however, it is causing him to be sedated. Discussed having scheduled dose rather than PRN; pt agreeable. Start: Haldol 2mg PO daily and 5mg PO bedtime. denies SI/HI/VH/AH. He reports sleeping well last night. Continue tx plan. Medication Compliance: Yes Side effects from medications: No Attending Groups: No Mental Status Exam Mental Status Exam Narrative: Pt is alert and oriented; behavior is cooperative, calm; dressed in casual attire; mood is described as anxious ; eye contact appropriate; Speech is normal rate, volume and not pressured; thought process is organized; Thought content is on tx; paranoid about someone possibly hurting him on the unit, however reports this feeling is decreased today; denies SI/HI/VH/AH. Diagnostics Vital Signs (24Hr): Vital Signs - 24 hr 07/21/25 19:55 Temperature 98.4 F Pulse Rate 70 Respiratory Rate 16 Blood Pressure 117/66 Pulse Oximetry 97 Oxygen Delivery Method Room Air BMI result Body Mass Index 17.9 Labs 07/14/25 13:08 07/14/25 13:08 Imaging Radiology Impressions: ITS Impressions Chest X-Ray 07/14/25 13:12 IMPRESSION: No evidence of acute pulmonary process. Electronically signed by: Rob Summers MD 07/14/2025 01:17 PM [facility] Medications Medications Current Medications Acetaminophen (Acetaminophen 325 Mg Tablet) 650 mg PO Q6H PRN PRN Reason: Headache/Pain, Scale 1-10 Last Admin: 07/21/25 22:11 Dose: 650 mg Al Hydroxide/Mg Hydroxide (Magnesium Hydrox/Alum Hydrox 30 Ml Oral.Susp) 30 ml PO Q6H PRN PRN Reason: Heartburn/Nausea Last Admin: 07/18/25 17:56 Dose: 30 ml Amitriptyline HCl (Amitriptyline Hcl 25 Mg Tablet) 25 mg PO BEDTIME [facility] Last Admin: 07/21/25 22:07 Dose: Not Given Atorvastatin Calcium (Atorvastatin Calcium 40 Mg Tablet) 40 mg PO DAILY [facility] Last Admin: 07/22/25 08:32 Dose: 40 mg Bisacodyl (Bisacodyl 5 Mg Tablet.Dr) 10 mg PO DAILY@1700 [facility] Last Admin: 07/21/25 17:04 Dose: Not Given Cyanocobalamin (Cyanocobalamin (Vitamin B-12) 1,000 Mcg Tablet) 1,000 mcg PO DAILY@1700 [facility] Last Admin: 07/21/25 17:03 Dose: 1,000 mcg Diphenhydramine HCl (Diphenhydramine Hcl 25 Mg Capsule) 50 mg PO Q8H PRN PRN Reason: Extrapyramidal Effects Famotidine (Famotidine 20 Mg Tablet) 20 mg PO DAILY PRN PRN Reason: GERD Last Admin: 07/18/25 03:31 Dose: 20 mg Fluvoxamine Maleate (Fluvoxamine Maleate 50 Mg Tablet) 50 mg PO BEDTIME [facility] Last Admin: 07/21/25 22:07 Dose: 50 mg Haloperidol (Haloperidol 5 Mg Tablet) 5 mg PO TID PRN PRN Reason: psychosis/agitation Last Admin: 07/22/25 08:39 Dose: 5 mg Hydroxyzine HCl (Hydroxyzine Hcl 25 Mg Tablet) 25 mg PO Q6H PRN PRN Reason: mild anxiety Last Admin: 07/15/25 20:55 Dose: 25 mg Ketotifen Fumarate (Ketotifen Fumarate 0.025% Oph 5 Ml Drpbtl) 1 drop EYE-BOTH BID PRN PRN Reason: allergies Last Admin: 07/18/25 03:32 Dose: 1 drop Magnesium Hydroxide (Milk Of Magnesia 30 Ml Oral.Susp) 30 ml PO DAILY PRN PRN Reason: Constipation Last Admin: 07/19/25 08:01 Dose: 30 ml Methadone HCl (Methadone Hcl 20 Mg/2 Ml Oral.Conc) 28 mg PO DAILY [facility] Last Admin: 07/22/25 08:23 Dose: 28 mg Nicotine Polacrilex (Nicotine Polacrilex 2 Mg Gum) 4 mg BUCCAL Q2H PRN PRN Reason: Nicotine Cravings Omeprazole (Omeprazole 20 Mg Capsule.Dr) 20 mg PO DAILY@0630 [facility] Last Admin: 07/22/25 08:32 Dose: 20 mg Propranolol HCl (Propranolol Hcl 40 Mg Tablet) 40 mg PO Q12H PRN; Protocol PRN Reason: Anxiety Last Admin: 07/15/25 04:33 Dose: 40 mg Quetiapine Fumarate (Quetiapine Fumarate 100 Mg Tablet) 100 mg PO BEDTIME [facility] Last Admin: 07/21/25 22:07 Dose: 100 mg Quetiapine Fumarate (Quetiapine Fumarate 50 Mg Tablet) 50 mg PO BID PRN PRN Reason: severe anxiety Last Admin: 07/20/25 20:26 Dose: 50 mg Tamsulosin HCl (Tamsulosin Hcl 0.4 Mg Capsule) 0.4 mg PO BEDTIME [facility] Last Admin: 07/21/25 22:16 Dose: 0.4 mg Trazodone HCl (Trazodone Hcl 50 Mg Tablet) 50 mg PO BEDTIME MRX1 PRN PRN Reason: Insomnia Vitamin D (Cholecalciferol (Vitamin D3) 25 Mcg Tablet) 50 mcg PO DAILY [facility] Last Admin: 07/22/25 08:32 Dose: 50 mcg Allergies Allergies Allergy/AdvReac Type Severity Reaction Status Date / Time SEAFOOD Allergy Severe ANAPHYLAXIS Uncoded 07/14/25 12:55 shellfish Allergy Severe Anaphylaxis Uncoded 07/14/25 12:55 Assessment & Plan Assessment & Plan (1) MDD (major depressive disorder), recurrent, severe, with psychosis: Status: Acute Code(s): F33.3 - Major depressive disorder, recurrent, severe with psychotic symptoms (2) JODY (generalized anxiety disorder): Status: Acute Code(s): F41.1 - Generalized anxiety disorder (3) Opioid use disorder: Status: Acute Code(s): F11.90 - Opioid use, unspecified, uncomplicated Plan Patient is a 55 year old male with hx of MDD, JODY and opioid use d/o who self presented to [facility] d/t auditory hallucinations and paranoia secondary to poor sleep. Plan: CV 15 minute safety checks Obtain collateral Start: Seroquel 50mg PO bedtime Increase Luvox to 50mg PO daily encourage groups discharge planning 07/16: Active on unit. Patient reports feeling anxious and having paranoia; pt stated, I woke up scared last night. I'm worried that if I sleep too deep someone will try to hurt me . Pt stated, he understands this sounds psychotic ; per nursing, pt slept 8 hours last night. He agreed to increase in Seroquel; Seroquel increased to 100mg PO bedtime. denies SI/HI/VH/AH. Continue tx plan. 07/17: Somatically preoccupied. Expressed concern that someone on the unit will try to harm him but recognized it's unlikely. Pt was encouraged to take his medication to reduce anxiety that contributes to uncomfortable physical sensations that he perceives as serious medical issues. 07/18: continue current management and treatment plan. 07/19: continue current management and treatment plan. 07/20: Active on unit. sales agent pest control service present. Patient continues anxious, guarded, paranoid; he reports not taking all medications that are prescribed d/t not knowing if I can trust you guys . Patient is concerned someone here would try to hurt him but is unable to explain why. He expresses concerns of possible side effects and being alone ; pt reassured there is staff 26/03 and if he were to have a side effect, nursing staff would be available. Discussed taking antipsychotics. risks/benefits reviewed; pt reports he will think about it . Start: Haldol 5mg TID PRN psychosis/agitation 07/21: Active on unit. sales agent pest control service present. Patient continues anxious and paranoid; continues concerned one of the patient's may try to hurt him . He continues with concerns of possible side effects of taking medications; after educating patient multiple times regarding antipsychotics; pt agreeable and took Haldol 5mg PO once; he denied any side effects. Patient focused on somatic complaints; pt stated, I feel like the side of my head is getting bigger . denies SI/HI/VH/AH. Continue tx plan. 07/22: sales agent pest control service present. Patient continues anxious and paranoid; Patient reports paranoia has decreased with taking Haldol 5mg PO; however, it is causing him to be sedated. Discussed having scheduled dose rather than PRN; pt agreeable. Start: Haldol 2mg PO daily and 5mg PO bedtime. denies SI/HI/VH/AH. He reports sleeping well last night. Continue tx plan. Patient educated on: diagnosis, medication risk/benefits and therapeutic strategies Reason for continued inpatient stay Substantial Risk for: med/psych decompensation Time Spent With Patient Time: Total time managing care of this patient today _20___ minutes.
[2025-07-22 15:24] VITALS: BP 114/62; PULSE 68
[2025-07-22 16:46] VITALS: BP 143/61; PULSE 62; RESP 12; O2SAT 98
[2025-07-22 20:00] VITALS: BP 118/60; PULSE 60; RESP 16; TEMP 36.4; O2SAT 98
[2025-07-23 07:20] VITALS: BP 82/47; PULSE 52; RESP 14; TEMP 36.8; O2SAT 98
[2025-07-23] MEDS: methADONE HCl 20 MG/2 ML ORAL.CONC 28 MG PO (08:16)
--- NOTE | 2025-07-23 13:33 | P.PNPSI_ITS ---
Subjective Subjective Date of Service: 07/23/25 Reason For Visit: crisis Subjective Notes: Conditional Voluntary Interim History: military administrative technician present. Patient reports feeling bad today; continues with various somatic complaints which describe anxiety/panic attack, such as shortness of breathe, feeling lightheaded, having a headache. Patient educated again regarding need to be compliant daily with his medications. Patient did report his paranoia decreasing; patient stated, the thoughts of someone hurting me has decreased from a 10 to a 6 . denies SI/HI/VH/AH. continue tx plan. Medication Compliance: Yes Side effects from medications: No Attending Groups: Intermittent Mental Status Exam Mental Status Exam Narrative: Pt is alert and oriented; behavior is cooperative, calm; dressed in casual attire; mood is described as anxious ; eye contact appropriate; Speech is normal rate, volume and not pressured; thought process is organized; Thought content is on tx; paranoid about someone possibly hurting him on the unit, however reports decreasing; denies SI/HI/VH/AH. Diagnostics Vital Signs (24Hr): Vital Signs - 24 hr 07/22/25 15:24 07/22/25 16:46 07/22/25 20:00 Temperature 97.6 F Pulse Rate 68 62 60 Respiratory Rate 12 16 Blood Pressure 114/62 143/61 H 118/60 Pulse Oximetry 98 98 Oxygen Delivery Method Room Air Room Air 07/23/25 07:20 Temperature 98.2 F Pulse Rate 52 Respiratory Rate 14 Blood Pressure 82/47 L Pulse Oximetry 98 Oxygen Delivery Method Room Air BMI result Body Mass Index 17.9 Labs 07/14/25 13:08 07/14/25 13:08 Imaging Radiology Impressions: ITS Impressions Chest X-Ray 07/14/25 13:12 IMPRESSION: No evidence of acute pulmonary process. Electronically signed by: Rob Summers MD 07/14/2025 01:17 PM [facility] Medications Medications Current Medications Acetaminophen (Acetaminophen 325 Mg Tablet) 650 mg PO Q6H PRN PRN Reason: Headache/Pain, Scale 1-10 Last Admin: 07/22/25 20:53 Dose: 650 mg Al Hydroxide/Mg Hydroxide (Magnesium Hydrox/Alum Hydrox 30 Ml Oral.Susp) 30 ml PO Q6H PRN PRN Reason: Heartburn/Nausea Last Admin: 07/18/25 17:56 Dose: 30 ml Amitriptyline HCl (Amitriptyline Hcl 25 Mg Tablet) 25 mg PO BEDTIME [facility] Last Admin: 07/22/25 20:39 Dose: 25 mg Atorvastatin Calcium (Atorvastatin Calcium 40 Mg Tablet) 40 mg PO DAILY [facility] Last Admin: 07/23/25 08:29 Dose: 40 mg Bisacodyl (Bisacodyl 5 Mg Tablet.Dr) 10 mg PO DAILY [facility] Last Admin: 07/23/25 08:29 Dose: 10 mg Cyanocobalamin (Cyanocobalamin (Vitamin B-12) 1,000 Mcg Tablet) 1,000 mcg PO DAILY@1700 [facility] Last Admin: 07/22/25 16:51 Dose: 1,000 mcg Diphenhydramine HCl (Diphenhydramine Hcl 25 Mg Capsule) 50 mg PO Q8H PRN PRN Reason: Extrapyramidal Effects Fluvoxamine Maleate (Fluvoxamine Maleate 50 Mg Tablet) 50 mg PO BEDTIME [facility] Last Admin: 07/22/25 20:56 Dose: Not Given Haloperidol (Haloperidol 5 Mg Tablet) 5 mg PO BEDTIME [facility] Last Admin: 07/22/25 20:39 Dose: 5 mg Haloperidol (Haloperidol 1 Mg Tablet) 2 mg PO DAILY [facility] Last Admin: 07/23/25 08:28 Dose: 2 mg Haloperidol (Haloperidol 5 Mg Tablet) 5 mg PO DAILY PRN PRN Reason: psychosis/agitation Hydroxyzine HCl (Hydroxyzine Hcl 25 Mg Tablet) 25 mg PO Q6H PRN PRN Reason: mild anxiety Last Admin: 07/15/25 20:55 Dose: 25 mg Ketotifen Fumarate (Ketotifen Fumarate 0.025% Oph 5 Ml Drpbtl) 1 drop EYE-BOTH BID PRN PRN Reason: allergies Last Admin: 07/18/25 03:32 Dose: 1 drop Magnesium Hydroxide (Milk Of Magnesia 30 Ml Oral.Susp) 30 ml PO DAILY PRN PRN Reason: Constipation Last Admin: 07/19/25 08:01 Dose: 30 ml Methadone HCl (Methadone Hcl 20 Mg/2 Ml Oral.Conc) 28 mg PO DAILY [facility] Last Admin: 07/23/25 08:16 Dose: 28 mg Omeprazole (Omeprazole 20 Mg Capsule.Dr) 20 mg PO DAILY@0630 [facility] Last Admin: 07/23/25 06:40 Dose: 20 mg Propranolol HCl (Propranolol Hcl 40 Mg Tablet) 40 mg PO Q12H PRN; Protocol PRN Reason: Anxiety Last Admin: 07/22/25 16:51 Dose: 40 mg Quetiapine Fumarate (Quetiapine Fumarate 100 Mg Tablet) 100 mg PO BEDTIME [facility] Last Admin: 07/22/25 20:39 Dose: 100 mg Tamsulosin HCl (Tamsulosin Hcl 0.4 Mg Capsule) 0.4 mg PO BEDTIME [facility] Last Admin: 07/22/25 20:39 Dose: 0.4 mg Vitamin D (Cholecalciferol (Vitamin D3) 25 Mcg Tablet) 50 mcg PO DAILY [facility] Last Admin: 07/23/25 08:30 Dose: 50 mcg Allergies Allergies Allergy/AdvReac Type Severity Reaction Status Date / Time SEAFOOD Allergy Severe ANAPHYLAXIS Uncoded 07/14/25 12:55 shellfish Allergy Severe Anaphylaxis Uncoded 07/14/25 12:55 Assessment & Plan Assessment & Plan (1) MDD (major depressive disorder), recurrent, severe, with psychosis: Status: Acute Code(s): F33.3 - Major depressive disorder, recurrent, severe with psychotic symptoms (2) JODY (generalized anxiety disorder): Status: Acute Code(s): F41.1 - Generalized anxiety disorder (3) Opioid use disorder: Status: Acute Code(s): F11.90 - Opioid use, unspecified, uncomplicated Plan Patient is a 55 year old male with hx of MDD, JODY and opioid use d/o who self presented to [facility] ER d/t auditory hallucinations and paranoia secondary to poor sleep. Plan: CV 15 minute safety checks Obtain collateral Start: Seroquel 50mg PO bedtime Increase Luvox to 50mg PO daily encourage groups discharge planning 07/16: Active on unit. Patient reports feeling anxious and having paranoia; pt stated, I woke up scared last night. I'm worried that if I sleep too deep someone will try to hurt me . Pt stated, he understands this sounds psychotic ; per nursing, pt slept 8 hours last night. He agreed to increase in Seroquel; Seroquel increased to 100mg PO bedtime. denies SI/HI/VH/AH. Continue tx plan. 07/17: Somatically preoccupied. Expressed concern that someone on the unit will try to harm him but recognized it's unlikely. Pt was encouraged to take his medication to reduce anxiety that contributes to uncomfortable physical sensations that he perceives as serious medical issues. 07/18: continue current management and treatment plan. 07/19: continue current management and treatment plan. 07/20: Active on unit. military administrative technician present. Patient continues anxious, guarded, paranoid; he reports not taking all medications that are prescribed d/t not knowing if I can trust you guys . Patient is concerned someone here would try to hurt him but is unable to explain why. He expresses concerns of possible side effects and being alone ; pt reassured there is staff 26/03 and if he were to have a side effect, nursing staff would be available. Discussed taking antipsychotics. risks/benefits reviewed; pt reports he will think about it . Start: Haldol 5mg TID PRN psychosis/agitation 07/21: Active on unit. military administrative technician present. Patient continues anxious and paranoid; continues concerned one of the patient's may try to hurt him . He continues with concerns of possible side effects of taking medications; after educating patient multiple times regarding antipsychotics; pt agreeable and took Haldol 5mg PO once; he denied any side effects. Patient focused on somatic complaints; pt stated, I feel like the side of my head is getting bigger . denies SI/HI/VH/AH. Continue tx plan. 07/22: military administrative technician present. Patient continues anxious and paranoid; Patient reports paranoia has decreased with taking Haldol 5mg PO; however, it is causing him to be sedated. Discussed having scheduled dose rather than PRN; pt agreeable. Start: Haldol 2mg PO daily and 5mg PO bedtime. denies SI/HI/VH/AH. He reports sleeping well last night. Continue tx plan. 07/23: military administrative technician present. Patient reports feeling bad today; continues with various somatic complaints which describe anxiety/panic attack, such as shortness of breathe, feeling lightheaded, having a headache. Patient educated again regarding need to be compliant daily with his medications. Patient did report his paranoia decreasing; patient stated, the thoughts of someone hurting me has decreased from a 10 to a 6 . denies SI/HI/VH/AH. continue tx plan. Patient educated on: diagnosis, medication risk/benefits and therapeutic strategies Reason for continued inpatient stay Substantial Risk for: med/psych decompensation Time Spent With Patient Time: Total time managing care of this patient today _20___ minutes.
[2025-07-23 19:37] VITALS: BP 115/56; PULSE 67; RESP 16; TEMP 36.9; O2SAT 97
[2025-07-24 07:43] VITALS: BP 111/59; PULSE 60; RESP 20; TEMP 36.6; O2SAT 99
[2025-07-24] MEDS: methADONE HCl 20 MG/2 ML ORAL.CONC 28 MG PO (08:32)
--- NOTE | 2025-07-24 13:30 | HO.PSYCHPN ---
Subjective Subjective Date of Service: 07/24/25 Reason For Visit: crisis Subjective Notes: Conditional Voluntary Interim History: geochemical manager present. Patient reports feeling a little better ; pt stated, I'm having a little depression but not much and the feeling that someone is going to harm me has gone away . denies SI/HI/VH/AH. He reports sleeping well. continue tx plan. Medication Compliance: Yes Side effects from medications: No Attending Groups: No Mental Status Exam Mental Status Exam Narrative: Pt is alert and oriented; behavior is cooperative, calm; dressed in casual attire; mood is described as a little better ; eye contact appropriate; Speech is normal rate, volume and not pressured; thought process is organized; Thought content is on tx; denies SI/HI/VH/AH. Diagnostics Vital Signs (24Hr): Vital Signs - 24 hr 07/23/25 19:37 07/24/25 07:43 Temperature 98.4 F 97.9 F Pulse Rate 67 60 Respiratory Rate 16 20 Blood Pressure 115/56 L 111/59 L Pulse Oximetry 97 99 Oxygen Delivery Method Room Air Room Air BMI result Body Mass Index 17.9 Labs 07/14/25 13:08 07/14/25 13:08 Imaging Radiology Impressions: ITS Impressions Chest X-Ray 07/14/25 13:12 IMPRESSION: No evidence of acute pulmonary process. Electronically signed by: Rob Summers MD 07/14/2025 01:17 PM [facility] Medications Medications Current Medications Acetaminophen (Acetaminophen 325 Mg Tablet) 650 mg PO Q6H PRN PRN Reason: Headache/Pain, Scale 1-10 Last Admin: 07/23/25 21:41 Dose: 650 mg Al Hydroxide/Mg Hydroxide (Magnesium Hydrox/Alum Hydrox 30 Ml Oral.Susp) 30 ml PO Q6H PRN PRN Reason: Heartburn/Nausea Last Admin: 07/18/25 17:56 Dose: 30 ml Amitriptyline HCl (Amitriptyline Hcl 25 Mg Tablet) 25 mg PO BEDTIME [facility] Last Admin: 07/23/25 21:41 Dose: 25 mg Atorvastatin Calcium (Atorvastatin Calcium 40 Mg Tablet) 40 mg PO DAILY [facility] Last Admin: 07/24/25 08:40 Dose: 40 mg Bisacodyl (Bisacodyl 5 Mg Tablet.Dr) 10 mg PO DAILY [facility] Last Admin: 07/24/25 08:40 Dose: 10 mg Cyanocobalamin (Cyanocobalamin (Vitamin B-12) 1,000 Mcg Tablet) 1,000 mcg PO DAILY@1700 [facility] Last Admin: 07/23/25 16:43 Dose: 1,000 mcg Diphenhydramine HCl (Diphenhydramine Hcl 25 Mg Capsule) 50 mg PO Q8H PRN PRN Reason: Extrapyramidal Effects Fluvoxamine Maleate (Fluvoxamine Maleate 50 Mg Tablet) 50 mg PO BEDTIME [facility] Last Admin: 07/23/25 21:41 Dose: 50 mg Haloperidol (Haloperidol 5 Mg Tablet) 5 mg PO BEDTIME [facility] Last Admin: 07/23/25 21:41 Dose: 5 mg Haloperidol (Haloperidol 1 Mg Tablet) 2 mg PO DAILY [facility] Last Admin: 07/24/25 08:41 Dose: 2 mg Haloperidol (Haloperidol 5 Mg Tablet) 5 mg PO DAILY PRN PRN Reason: psychosis/agitation Last Admin: 07/23/25 18:09 Dose: 5 mg Hydroxyzine HCl (Hydroxyzine Hcl 25 Mg Tablet) 25 mg PO Q6H PRN PRN Reason: mild anxiety Last Admin: 07/15/25 20:55 Dose: 25 mg Ketotifen Fumarate (Ketotifen Fumarate 0.025% Oph 5 Ml Drpbtl) 1 drop EYE-BOTH BID PRN PRN Reason: allergies Last Admin: 07/18/25 03:32 Dose: 1 drop Magnesium Hydroxide (Milk Of Magnesia 30 Ml Oral.Susp) 30 ml PO DAILY PRN PRN Reason: Constipation Last Admin: 07/19/25 08:01 Dose: 30 ml Methadone HCl (Methadone Hcl 20 Mg/2 Ml Oral.Conc) 28 mg PO DAILY@0800 [facility] Last Admin: 07/24/25 08:32 Dose: 28 mg Omeprazole (Omeprazole 20 Mg Capsule.Dr) 20 mg PO DAILY@0630 [facility] Last Admin: 07/24/25 06:35 Dose: 20 mg Propranolol HCl (Propranolol Hcl 40 Mg Tablet) 40 mg PO Q12H PRN; Protocol PRN Reason: Anxiety Last Admin: 07/22/25 16:51 Dose: 40 mg Quetiapine Fumarate (Quetiapine Fumarate 100 Mg Tablet) 100 mg PO BEDTIME [facility] Last Admin: 07/23/25 21:41 Dose: 100 mg Tamsulosin HCl (Tamsulosin Hcl 0.4 Mg Capsule) 0.4 mg PO BEDTIME [facility] Last Admin: 07/23/25 21:41 Dose: 0.4 mg Vitamin D (Cholecalciferol (Vitamin D3) 25 Mcg Tablet) 50 mcg PO DAILY [facility] Last Admin: 07/24/25 08:40 Dose: 50 mcg Allergies Allergies Allergy/AdvReac Type Severity Reaction Status Date / Time SEAFOOD Allergy Severe ANAPHYLAXIS Uncoded 07/14/25 12:55 shellfish Allergy Severe Anaphylaxis Uncoded 07/14/25 12:55 Assessment & Plan Assessment & Plan (1) MDD (major depressive disorder), recurrent, severe, with psychosis: Status: Acute Code(s): F33.3 - Major depressive disorder, recurrent, severe with psychotic symptoms (2) JODY (generalized anxiety disorder): Status: Acute Code(s): F41.1 - Generalized anxiety disorder (3) Opioid use disorder: Status: Acute Code(s): F11.90 - Opioid use, unspecified, uncomplicated Plan Patient is a 55 year old male with hx of MDD, JODY and opioid use d/o who self presented to [facility] [place] [facility] d/t auditory hallucinations and paranoia secondary to poor sleep. Plan: CV 15 minute safety checks Obtain collateral Start: Seroquel 50mg PO bedtime Increase Luvox to 50mg PO daily encourage groups discharge planning 07/16: Active on unit. Patient reports feeling anxious and having paranoia; pt stated, I woke up scared last night. I'm worried that if I sleep too deep someone will try to hurt me . Pt stated, he understands this sounds psychotic ; per nursing, pt slept 8 hours last night. He agreed to increase in Seroquel; Seroquel increased to 100mg PO bedtime. denies SI/HI/VH/AH. Continue tx plan. 07/17: Somatically preoccupied. Expressed concern that someone on the unit will try to harm him but recognized it's unlikely. Pt was encouraged to take his medication to reduce anxiety that contributes to uncomfortable physical sensations that he perceives as serious medical issues. 07/18: continue current management and treatment plan. 07/19: continue current management and treatment plan. 07/20: Active on unit. geochemical manager present. Patient continues anxious, guarded, paranoid; he reports not taking all medications that are prescribed d/t not knowing if I can trust you guys . Patient is concerned someone here would try to hurt him but is unable to explain why. He expresses concerns of possible side effects and being alone ; pt reassured there is staff 26/03 and if he were to have a side effect, nursing staff would be available. Discussed taking antipsychotics. risks/benefits reviewed; pt reports he will think about it . Start: Haldol 5mg TID PRN psychosis/agitation 07/21: Active on unit. geochemical manager present. Patient continues anxious and paranoid; continues concerned one of the patient's may try to hurt him . He continues with concerns of possible side effects of taking medications; after educating patient multiple times regarding antipsychotics; pt agreeable and took Haldol 5mg PO once; he denied any side effects. Patient focused on somatic complaints; pt stated, I feel like the side of my head is getting bigger . denies SI/HI/VH/AH. Continue tx plan. 07/22: geochemical manager present. Patient continues anxious and paranoid; Patient reports paranoia has decreased with taking Haldol 5mg PO; however, it is causing him to be sedated. Discussed having scheduled dose rather than PRN; pt agreeable. Start: Haldol 2mg PO daily and 5mg PO bedtime. denies SI/HI/VH/AH. He reports sleeping well last night. Continue tx plan. 07/23: geochemical manager present. Patient reports feeling bad today; continues with various somatic complaints which describe anxiety/panic attack, such as shortness of breathe, feeling lightheaded, having a headache. Patient educated again regarding need to be compliant daily with his medications. Patient did report his paranoia decreasing; patient stated, the thoughts of someone hurting me has decreased from a 10 to a 6 . denies SI/HI/VH/AH. continue tx plan. 07/24: geochemical manager present. Patient reports feeling a little better ; pt stated, I'm having a little depression but not much and the feeling that someone is going to harm me has gone away . denies SI/HI/VH/AH. He reports sleeping well. continue tx plan. Patient educated on: diagnosis and medication risk/benefits Reason for continued inpatient stay Substantial Risk for: med/psych decompensation Time Spent With Patient Time: Total time managing care of this patient today ____ minutes.
[2025-07-24 13:57] VITALS: PULSE 71
[2025-07-24 19:37] VITALS: BP 122/57; PULSE 77; RESP 15; TEMP 37.1; O2SAT 100
[2025-07-25] MEDS: methADONE HCl 20 MG/2 ML ORAL.CONC 28 MG PO (10:07)
--- NOTE | 2025-07-25 10:08 | P.PNPSI_ITS ---
Subjective Subjective Date of Service: 07/25/25 Reason For Visit: crisis Subjective Notes: Conditional Voluntary Interim History: Patient was seen and discussed in rounds today. Records and plans were reviewed. Sql Bi Developer was present. He continues to be anxious, tense with some paranoia which has improved. No SI. No AVH. Eating and sleeping adequately. No changes were made today Review of Systems Review of Systems Yes all other systems are reviewed and are negative Mental Status Exam Mental Status Exam Narrative: In today's visit he is alert, oriented and pleasant. Soft-spoken speech. Moderate eye contact. Constricted affect. No acute signs of psychosis. No AVH. Some paranoia reported. No SI. Cognitively is grossly intact. Judgment is intact Diagnostics Vital Signs (24Hr): Vital Signs - 24 hr 07/24/25 13:57 07/24/25 19:37 Temperature 98.8 F Pulse Rate 71 77 Respiratory Rate 15 Blood Pressure 122/57 L Pulse Oximetry 100 Oxygen Delivery Method Room Air BMI result Body Mass Index 17.9 Labs 07/14/25 13:08 07/14/25 13:08 Imaging Radiology Impressions: ITS Impressions Chest X-Ray 07/14/25 13:12 IMPRESSION: No evidence of acute pulmonary process. Electronically signed by: Rob Summers MD 07/14/2025 01:17 PM [facility] [place] Medications Medications Current Medications Acetaminophen (Acetaminophen 325 Mg Tablet) 650 mg PO Q6H PRN PRN Reason: Headache/Pain, Scale 1-10 Last Admin: 07/24/25 21:33 Dose: 650 mg Al Hydroxide/Mg Hydroxide (Magnesium Hydrox/Alum Hydrox 30 Ml Oral.Susp) 30 ml PO Q6H PRN PRN Reason: Heartburn/Nausea Last Admin: 07/18/25 17:56 Dose: 30 ml Amitriptyline HCl (Amitriptyline Hcl 25 Mg Tablet) 25 mg PO BEDTIME [facility] Last Admin: 07/24/25 21:33 Dose: 25 mg Atorvastatin Calcium (Atorvastatin Calcium 40 Mg Tablet) 40 mg PO DAILY MARIA G Last Admin: 07/24/25 08:40 Dose: 40 mg Bisacodyl (Bisacodyl 5 Mg Tablet.Dr) 10 mg PO DAILY [facility] Last Admin: 07/24/25 08:40 Dose: 10 mg Cyanocobalamin (Cyanocobalamin (Vitamin B-12) 1,000 Mcg Tablet) 1,000 mcg PO DAILY@1700 [facility] Last Admin: 07/24/25 17:05 Dose: 1,000 mcg Diphenhydramine HCl (Diphenhydramine Hcl 25 Mg Capsule) 50 mg PO Q8H PRN PRN Reason: Extrapyramidal Effects Fluvoxamine Maleate (Fluvoxamine Maleate 50 Mg Tablet) 50 mg PO BEDTIME [facility] Last Admin: 07/24/25 21:33 Dose: 50 mg Haloperidol (Haloperidol 5 Mg Tablet) 5 mg PO BEDTIME [facility] Last Admin: 07/24/25 21:32 Dose: 5 mg Haloperidol (Haloperidol 1 Mg Tablet) 2 mg PO DAILY [facility] Last Admin: 07/24/25 08:41 Dose: 2 mg Haloperidol (Haloperidol 5 Mg Tablet) 5 mg PO DAILY PRN PRN Reason: psychosis/agitation Last Admin: 07/23/25 18:09 Dose: 5 mg Hydroxyzine HCl (Hydroxyzine Hcl 25 Mg Tablet) 25 mg PO Q6H PRN PRN Reason: mild anxiety Last Admin: 07/24/25 16:10 Dose: 25 mg Ketotifen Fumarate (Ketotifen Fumarate 0.025% Oph 5 Ml Drpbtl) 1 drop EYE-BOTH BID PRN PRN Reason: allergies Last Admin: 07/18/25 03:32 Dose: 1 drop Magnesium Hydroxide (Milk Of Magnesia 30 Ml Oral.Susp) 30 ml PO DAILY PRN PRN Reason: Constipation Last Admin: 07/19/25 08:01 Dose: 30 ml Methadone HCl (Methadone Hcl 20 Mg/2 Ml Oral.Conc) 28 mg PO DAILY@0800 [facility] Last Admin: 07/24/25 08:32 Dose: 28 mg Omeprazole (Omeprazole 20 Mg Capsule.Dr) 20 mg PO DAILY@0630 [facility] Last Admin: 07/25/25 06:12 Dose: 20 mg Propranolol HCl (Propranolol Hcl 40 Mg Tablet) 40 mg PO Q12H PRN; Protocol PRN Reason: Anxiety Last Admin: 07/22/25 16:51 Dose: 40 mg Quetiapine Fumarate (Quetiapine Fumarate 100 Mg Tablet) 100 mg PO BEDTIME [facility] Last Admin: 07/24/25 21:33 Dose: 100 mg Tamsulosin HCl (Tamsulosin Hcl 0.4 Mg Capsule) 0.4 mg PO BEDTIME [facility] Last Admin: 07/24/25 21:33 Dose: 0.4 mg Vitamin D (Cholecalciferol (Vitamin D3) 25 Mcg Tablet) 50 mcg PO DAILY MARIA G Last Admin: 07/24/25 08:40 Dose: 50 mcg Allergies Allergies Allergy/AdvReac Type Severity Reaction Status Date / Time SEAFOOD Allergy Severe ANAPHYLAXIS Uncoded 07/14/25 12:55 shellfish Allergy Severe Anaphylaxis Uncoded 07/14/25 12:55 Assessment & Plan Assessment & Plan (1) MDD (major depressive disorder), recurrent, severe, with psychosis: Status: Acute Code(s): F33.3 - Major depressive disorder, recurrent, severe with psychotic symptoms (2) JODY (generalized anxiety disorder): Status: Acute Code(s): F41.1 - Generalized anxiety disorder (3) Opioid use disorder: Status: Acute Code(s): F11.90 - Opioid use, unspecified, uncomplicated Plan Patient is a 55 year old male with hx of MDD, JODY and opioid use d/o who [place] [facility] [place] auditory hallucinations and paranoia secondary to poor sleep. Plan: CV 15 minute safety checks Obtain collateral Start: Seroquel 50mg PO bedtime Increase Luvox to 50mg PO daily encourage groups discharge planning 07/16: Active on unit. Patient reports feeling anxious and having paranoia; pt stated, I woke up scared last night. I'm worried that if I sleep too deep someone will try to hurt me . Pt stated, he understands this sounds psychotic ; per nursing, pt slept 8 hours last night. He agreed to increase in Seroquel; Seroquel increased to 100mg PO bedtime. denies SI/HI/VH/AH. Continue tx plan. 07/17: Somatically preoccupied. Expressed concern that someone on the unit will try to harm him but recognized it's unlikely. Pt was encouraged to take his medication to reduce anxiety that contributes to uncomfortable physical sensations that he perceives as serious medical issues. 07/18: continue current management and treatment plan. 07/19: continue current management and treatment plan. 07/20: Active on unit. site interpreter present. Patient continues anxious, guarded, paranoid; he reports not taking all medications that are prescribed d/t not knowing if I can trust you guys . Patient is concerned someone here would try to hurt him but is unable to explain why. He expresses concerns of possible side effects and being alone ; pt reassured there is staff 26/03 and if he were to have a side effect, nursing staff would be available. Discussed taking antipsychotics. risks/benefits reviewed; pt reports he will think about it . Start: Haldol 5mg TID PRN psychosis/agitation 07/21: Active on unit. site interpreter present. Patient continues anxious and paranoid; continues concerned one of the patient's may try to hurt him . He continues with concerns of possible side effects of taking medications; after educating patient multiple times regarding antipsychotics; pt agreeable and took Haldol 5mg PO once; he denied any side effects. Patient focused on somatic complaints; pt stated, I feel like the side of my head is getting bigger . denies SI/HI/VH/AH. Continue tx plan. 07/22: site interpreter present. Patient continues anxious and paranoid; Patient reports paranoia has decreased with taking Haldol 5mg PO; however, it is causing him to be sedated. Discussed having scheduled dose rather than PRN; pt agreeable. Start: Haldol 2mg PO daily and 5mg PO bedtime. denies SI/HI/VH/AH. He reports sleeping well last night. Continue tx plan. 07/23: site interpreter present. Patient reports feeling bad today; continues with various somatic complaints which describe anxiety/panic attack, such as shortness of breathe, feeling lightheaded, having a headache. Patient educated again regarding need to be compliant daily with his medications. Patient did report his paranoia decreasing; patient stated, the thoughts of someone hurting me has decreased from a 10 to a 6 . denies SI/HI/VH/AH. continue tx plan. 07/24: site interpreter present. Patient reports feeling a little better ; pt stated, I'm having a little depression but not much and the feeling that someone is going to harm me has gone away . denies SI/HI/VH/AH. He reports sleeping well. continue tx plan. 07/25:Continue current regimen and plans Reason for continued inpatient stay Substantial Risk for: med/psych decompensation Time Spent With Patient Time: Total time managing care of this patient today ____ minutes.
[2025-07-25 15:15] VITALS: BP 142/84; PULSE 108
[2025-07-25 19:36] VITALS: BP 110/59; PULSE 52; RESP 16; TEMP 36.3; O2SAT 98
[2025-07-26] MEDS: methADONE HCl 20 MG/2 ML ORAL.CONC 28 MG PO (09:13)
--- NOTE | 2025-07-26 10:21 | HO.PSYCHPN ---
Subjective Subjective Date of Service: 07/26/25 Reason For Visit: crisis Subjective Notes: Conditional Voluntary Interim History: Patient was seen and discussed in rounds today. Records and plans were reviewed. Blanker Operator was present. He has been stable and is doing better. He only took half of his Haldol this morning, 1 mg and we talked about that and he agreed to take the other 1 mg. He took less because he states he was feeling better. I tried to educate him on this. No complaints or side effects. No SI. No acute signs of psychosis. Eating and sleeping adequately. No other changes were made today Review of Systems Review of Systems Yes all other systems are reviewed and are negative Mental Status Exam Mental Status Exam Narrative: In today's visit he is alert, oriented and pleasant. Soft-spoken speech. Moderate eye contact. Constricted affect. No acute signs of psychosis. No AVH. Some paranoia reported. No SI. Cognitively is grossly intact. Judgment is intact Diagnostics Vital Signs (24Hr): Vital Signs - 24 hr 07/25/25 15:15 07/25/25 19:36 Temperature 97.4 F Pulse Rate 108 H 52 Respiratory Rate 16 Blood Pressure 142/84 H 110/59 L Pulse Oximetry 98 Oxygen Delivery Method Room Air BMI result Body Mass Index 17.9 Labs 07/14/25 13:08 07/14/25 13:08 Imaging Radiology Impressions: ITS Impressions Chest X-Ray 07/14/25 13:12 IMPRESSION: No evidence of acute pulmonary process. Electronically signed by: Rob Summers MD 07/14/2025 01:17 PM [facility] [place] Medications Medications Current Medications Acetaminophen (Acetaminophen 325 Mg Tablet) 650 mg PO Q6H PRN PRN Reason: Headache/Pain, Scale 1-10 Last Admin: 07/25/25 20:02 Dose: 650 mg Al Hydroxide/Mg Hydroxide (Magnesium Hydrox/Alum Hydrox 30 Ml Oral.Susp) 30 ml PO Q6H PRN PRN Reason: Heartburn/Nausea Last Admin: 07/18/25 17:56 Dose: 30 ml Amitriptyline HCl (Amitriptyline Hcl 25 Mg Tablet) 25 mg PO BEDTIME [facility] Last Admin: 07/25/25 22:18 Dose: 25 mg Atorvastatin Calcium (Atorvastatin Calcium 40 Mg Tablet) 40 mg PO DAILY [facility] Last Admin: 07/26/25 09:08 Dose: 40 mg Bisacodyl (Bisacodyl 5 Mg Tablet.Dr) 10 mg PO DAILY [facility] Last Admin: 07/26/25 09:07 Dose: 10 mg Cyanocobalamin (Cyanocobalamin (Vitamin B-12) 1,000 Mcg Tablet) 1,000 mcg PO DAILY@1700 [facility] Last Admin: 07/25/25 17:19 Dose: 1,000 mcg Diphenhydramine HCl (Diphenhydramine Hcl 25 Mg Capsule) 50 mg PO Q8H PRN PRN Reason: Extrapyramidal Effects Fluvoxamine Maleate (Fluvoxamine Maleate 50 Mg Tablet) 50 mg PO BEDTIME [facility] Last Admin: 07/25/25 22:19 Dose: 50 mg Haloperidol (Haloperidol 5 Mg Tablet) 5 mg PO BEDTIME [facility] Last Admin: 07/25/25 22:18 Dose: 5 mg Haloperidol (Haloperidol 1 Mg Tablet) 2 mg PO DAILY [facility] Last Admin: 07/26/25 09:12 Dose: 1 mg Haloperidol (Haloperidol 5 Mg Tablet) 5 mg PO DAILY PRN PRN Reason: psychosis/agitation Last Admin: 07/23/25 18:09 Dose: 5 mg Hydroxyzine HCl (Hydroxyzine Hcl 25 Mg Tablet) 25 mg PO Q6H PRN PRN Reason: mild anxiety Last Admin: 07/24/25 16:10 Dose: 25 mg Ketotifen Fumarate (Ketotifen Fumarate 0.025% Oph 5 Ml Drpbtl) 1 drop EYE-BOTH BID PRN PRN Reason: allergies Last Admin: 07/18/25 03:32 Dose: 1 drop Magnesium Hydroxide (Milk Of Magnesia 30 Ml Oral.Susp) 30 ml PO DAILY PRN PRN Reason: Constipation Last Admin: 07/19/25 08:01 Dose: 30 ml Methadone HCl (Methadone Hcl 20 Mg/2 Ml Oral.Conc) 28 mg PO DAILY@0800 [facility] Last Admin: 07/26/25 09:13 Dose: 28 mg Omeprazole (Omeprazole 20 Mg Capsule.Dr) 20 mg PO DAILY@0630 [facility] Last Admin: 07/26/25 06:34 Dose: 20 mg Propranolol HCl (Propranolol Hcl 40 Mg Tablet) 40 mg PO Q12H PRN; Protocol PRN Reason: Anxiety Last Admin: 07/25/25 15:15 Dose: 40 mg Quetiapine Fumarate (Quetiapine Fumarate 100 Mg Tablet) 100 mg PO BEDTIME [facility] Last Admin: 07/25/25 22:18 Dose: 100 mg Simethicone (Simethicone 80 Mg Tab.Chew) 80 mg PO QIDWMHS PRN PRN Reason: Gas Last Admin: 07/25/25 19:16 Dose: 80 mg Tamsulosin HCl (Tamsulosin Hcl 0.4 Mg Capsule) 0.4 mg PO BEDTIME [facility] Last Admin: 07/25/25 22:18 Dose: 0.4 mg Vitamin D (Cholecalciferol (Vitamin D3) 25 Mcg Tablet) 50 mcg PO DAILY [facility] Last Admin: 07/26/25 09:12 Dose: Not Given Allergies Allergies Allergy/AdvReac Type Severity Reaction Status Date / Time SEAFOOD Allergy Severe ANAPHYLAXIS Uncoded 07/14/25 12:55 shellfish Allergy Severe Anaphylaxis Uncoded 07/14/25 12:55 Assessment & Plan Assessment & Plan (1) MDD (major depressive disorder), recurrent, severe, with psychosis: Status: Acute Code(s): F33.3 - Major depressive disorder, recurrent, severe with psychotic symptoms (2) JODY (generalized anxiety disorder): Status: Acute Code(s): F41.1 - Generalized anxiety disorder (3) Opioid use disorder: Status: Acute Code(s): F11.90 - Opioid use, unspecified, uncomplicated Plan Patient is a 55 year old male with hx of MDD, JODY and opioid use d/o who self presented to [facility] [place] ER d/t auditory hallucinations and paranoia secondary to poor sleep. Plan: CV 15 minute safety checks Obtain collateral Start: Seroquel 50mg PO bedtime Increase Luvox to 50mg PO daily encourage groups discharge planning 07/16: Active on unit. Patient reports feeling anxious and having paranoia; pt stated, I woke up scared last night. I'm worried that if I sleep too deep someone will try to hurt me . Pt stated, he understands this sounds psychotic ; per nursing, pt slept 8 hours last night. He agreed to increase in Seroquel; Seroquel increased to 100mg PO bedtime. denies SI/HI/VH/AH. Continue tx plan. 07/17: Somatically preoccupied. Expressed concern that someone on the unit will try to harm him but recognized it's unlikely. Pt was encouraged to take his medication to reduce anxiety that contributes to uncomfortable physical sensations that he perceives as serious medical issues. 07/18: continue current management and treatment plan. 07/19: continue current management and treatment plan. 07/20: Active on unit. medical interpreter present. Patient continues anxious, guarded, paranoid; he reports not taking all medications that are prescribed d/t not knowing if I can trust you guys . Patient is concerned someone here would try to hurt him but is unable to explain why. He expresses concerns of possible side effects and being alone ; pt reassured there is staff 26/03 and if he were to have a side effect, nursing staff would be available. Discussed taking antipsychotics. risks/benefits reviewed; pt reports he will think about it . Start: Haldol 5mg TID PRN psychosis/agitation 07/21: Active on unit. medical interpreter present. Patient continues anxious and paranoid; continues concerned one of the patient's may try to hurt him . He continues with concerns of possible side effects of taking medications; after educating patient multiple times regarding antipsychotics; pt agreeable and took Haldol 5mg PO once; he denied any side effects. Patient focused on somatic complaints; pt stated, I feel like the side of my head is getting bigger . denies SI/HI/VH/AH. Continue tx plan. 07/22: medical interpreter present. Patient continues anxious and paranoid; Patient reports paranoia has decreased with taking Haldol 5mg PO; however, it is causing him to be sedated. Discussed having scheduled dose rather than PRN; pt agreeable. Start: Haldol 2mg PO daily and 5mg PO bedtime. denies SI/HI/VH/AH. He reports sleeping well last night. Continue tx plan. 07/23: medical interpreter present. Patient reports feeling bad today; continues with various somatic complaints which describe anxiety/panic attack, such as shortness of breathe, feeling lightheaded, having a headache. Patient educated again regarding need to be compliant daily with his medications. Patient did report his paranoia decreasing; patient stated, the thoughts of someone hurting me has decreased from a 10 to a 6 . denies SI/HI/VH/AH. continue tx plan. 07/24: medical interpreter present. Patient reports feeling a little better ; pt stated, I'm having a little depression but not much and the feeling that someone is going to harm me has gone away . denies SI/HI/VH/AH. He reports sleeping well. continue tx plan. 07/25:Continue current regimen and plans 07/26:Continue current regimen and plans Patient educated on: medication risk/benefits Reason for continued inpatient stay Substantial Risk for: med/psych decompensation Time Spent With Patient Time: Total time managing care of this patient today ____ minutes.
[2025-07-26 19:10] VITALS: BP 146/67; PULSE 64; RESP 17; TEMP 36.9; O2SAT 99
[2025-07-27 07:46] VITALS: BP 90/49; PULSE 50; RESP 18; TEMP 36.3; O2SAT 98
[2025-07-27] MEDS: methADONE HCl 20 MG/2 ML ORAL.CONC 28 MG PO (07:48)
[2025-07-27 08:43] VITALS: BP 100/70
--- NOTE | 2025-07-27 11:50 | P.PNPSI_ITS ---
Subjective Subjective Date of Service: 07/27/25 Reason For Visit: crisis Subjective Notes: Conditional Voluntary Interim History: human resources talent manager present. Active on unit. medication compliant. Patient reports feeling better than when I first came in ; pt stated, I feel new. I feel even. I no longer am worried someone will harm me . denies SI/HI/VH/AH. Patient reports sleeping well. Patient reports he plans on following up with outpatient providers when discharged. Medication Compliance: Yes Side effects from medications: No Attending Groups: No Mental Status Exam Mental Status Exam Narrative: Pt is alert and oriented; behavior is cooperative and calm; dressed in casual attire; mood is described as better ; eye contact appropriate; Speech is normal rate, volume and not pressured; thought process is organized; Thought content is on tx/discharge; denies SI/HI/AH/VH. Diagnostics Vital Signs (24Hr): Vital Signs - 24 hr 07/26/25 19:10 07/27/25 07:46 07/27/25 08:43 Temperature 98.4 F 97.4 F Pulse Rate 64 50 Respiratory Rate 17 18 Blood Pressure 146/67 H 90/49 L 100/70 Pulse Oximetry 99 98 Oxygen Delivery Method Room Air Room Air BMI result Body Mass Index 17.9 Labs 07/14/25 13:08 07/14/25 13:08 Imaging Radiology Impressions: ITS Impressions Chest X-Ray 07/14/25 13:12 IMPRESSION: No evidence of acute pulmonary process. Electronically signed by: Rob Summers MD 07/14/2025 01:17 PM [facility] Medications Medications Current Medications Acetaminophen (Acetaminophen 325 Mg Tablet) 650 mg PO Q6H PRN PRN Reason: Headache/Pain, Scale 1-10 Last Admin: 07/26/25 16:21 Dose: 650 mg Al Hydroxide/Mg Hydroxide (Magnesium Hydrox/Alum Hydrox 30 Ml Oral.Susp) 30 ml PO Q6H PRN PRN Reason: Heartburn/Nausea Last Admin: 07/18/25 17:56 Dose: 30 ml Amitriptyline HCl (Amitriptyline Hcl 25 Mg Tablet) 25 mg PO BEDTIME MARIA G Last Admin: 07/26/25 20:52 Dose: 25 mg Atorvastatin Calcium (Atorvastatin Calcium 40 Mg Tablet) 40 mg PO DAILY MARIA G Last Admin: 07/27/25 08:31 Dose: 40 mg Bisacodyl (Bisacodyl 5 Mg Tablet.Dr) 10 mg PO DAILY [facility] Last Admin: 07/27/25 08:30 Dose: 10 mg Cyanocobalamin (Cyanocobalamin (Vitamin B-12) 1,000 Mcg Tablet) 1,000 mcg PO DAILY@1700 [facility] Last Admin: 07/26/25 16:22 Dose: 1,000 mcg Diphenhydramine HCl (Diphenhydramine Hcl 25 Mg Capsule) 50 mg PO Q8H PRN PRN Reason: Extrapyramidal Effects Fluvoxamine Maleate (Fluvoxamine Maleate 50 Mg Tablet) 50 mg PO BEDTIME [facility] Last Admin: 07/26/25 20:52 Dose: 50 mg Haloperidol (Haloperidol 5 Mg Tablet) 5 mg PO BEDTIME [facility] Last Admin: 07/26/25 20:52 Dose: 5 mg Haloperidol (Haloperidol 1 Mg Tablet) 2 mg PO DAILY [facility] Last Admin: 07/27/25 08:31 Dose: 2 mg Haloperidol (Haloperidol 5 Mg Tablet) 5 mg PO DAILY PRN PRN Reason: psychosis/agitation Last Admin: 07/23/25 18:09 Dose: 5 mg Hydroxyzine HCl (Hydroxyzine Hcl 25 Mg Tablet) 25 mg PO Q6H PRN PRN Reason: mild anxiety Last Admin: 07/24/25 16:10 Dose: 25 mg Ketotifen Fumarate (Ketotifen Fumarate 0.025% Oph 5 Ml Drpbtl) 1 drop EYE-BOTH BID PRN PRN Reason: allergies Last Admin: 07/18/25 03:32 Dose: 1 drop Magnesium Hydroxide (Milk Of Magnesia 30 Ml Oral.Susp) 30 ml PO DAILY PRN PRN Reason: Constipation Last Admin: 07/19/25 08:01 Dose: 30 ml Methadone HCl (Methadone Hcl 20 Mg/2 Ml Oral.Conc) 28 mg PO DAILY@0800 [facility] Last Admin: 07/27/25 07:48 Dose: 28 mg Omeprazole (Omeprazole 20 Mg Capsule.Dr) 20 mg PO DAILY@0630 [facility] Last Admin: 07/27/25 06:39 Dose: 20 mg Propranolol HCl (Propranolol Hcl 40 Mg Tablet) 40 mg PO Q12H PRN; Protocol PRN Reason: Anxiety Last Admin: 07/25/25 15:15 Dose: 40 mg Quetiapine Fumarate (Quetiapine Fumarate 100 Mg Tablet) 100 mg PO BEDTIME [facility] Last Admin: 07/26/25 20:52 Dose: 100 mg Simethicone (Simethicone 80 Mg Tab.Chew) 80 mg PO QIDWMHS PRN PRN Reason: Gas Last Admin: 07/25/25 19:16 Dose: 80 mg Tamsulosin HCl (Tamsulosin Hcl 0.4 Mg Capsule) 0.4 mg PO BEDTIME [facility] Last Admin: 07/26/25 20:52 Dose: 0.4 mg Vitamin D (Cholecalciferol (Vitamin D3) 25 Mcg Tablet) 50 mcg PO DAILY [facility] Last Admin: 07/27/25 08:31 Dose: 50 mcg Allergies Allergies Allergy/AdvReac Type Severity Reaction Status Date / Time SEAFOOD Allergy Severe ANAPHYLAXIS Uncoded 07/14/25 12:55 shellfish Allergy Severe Anaphylaxis Uncoded 07/14/25 12:55 Assessment & Plan Assessment & Plan (1) MDD (major depressive disorder), recurrent, severe, with psychosis: Status: Acute Code(s): F33.3 - Major depressive disorder, recurrent, severe with psychotic symptoms (2) JODY (generalized anxiety disorder): Status: Acute Code(s): F41.1 - Generalized anxiety disorder (3) Opioid use disorder: Status: Acute Code(s): F11.90 - Opioid use, unspecified, uncomplicated Plan Patient is a 55 year old male with hx of MDD, JODY and opioid use d/o who self presented to [facility] ER d/t auditory hallucinations and paranoia secondary to poor sleep. Plan: CV 15 minute safety checks Obtain collateral Start: Seroquel 50mg PO bedtime Increase Luvox to 50mg PO daily encourage groups discharge planning 07/16: Active on unit. Patient reports feeling anxious and having paranoia; pt stated, I woke up scared last night. I'm worried that if I sleep too deep someone will try to hurt me . Pt stated, he understands this sounds psychotic ; per nursing, pt slept 8 hours last night. He agreed to increase in Seroquel; Seroquel increased to 100mg PO bedtime. denies SI/HI/VH/AH. Continue tx plan. 07/17: Somatically preoccupied. Expressed concern that someone on the unit will try to harm him but recognized it's unlikely. Pt was encouraged to take his medication to reduce anxiety that contributes to uncomfortable physical sensations that he perceives as serious medical issues. 07/18: continue current management and treatment plan. 07/19: continue current management and treatment plan. 07/20: Active on unit. human resources talent manager present. Patient continues anxious, guarded, paranoid; he reports not taking all medications that are prescribed d/t not knowing if I can trust you guys . Patient is concerned someone here would try to hurt him but is unable to explain why. He expresses concerns of possible side effects and being alone ; pt reassured there is staff 26/03 and if he were to have a side effect, nursing staff would be available. Discussed taking antipsychotics. risks/benefits reviewed; pt reports he will think about it . Start: Haldol 5mg TID PRN psychosis/agitation 07/21: Active on unit. human resources talent manager present. Patient continues anxious and paranoid; continues concerned one of the patient's may try to hurt him . He continues with concerns of possible side effects of taking medications; after educating patient multiple times regarding antipsychotics; pt agreeable and took Haldol 5mg PO once; he denied any side effects. Patient focused on somatic complaints; pt stated, I feel like the side of my head is getting bigger . denies SI/HI/VH/AH. Continue tx plan. 07/22: human resources talent manager present. Patient continues anxious and paranoid; Patient reports paranoia has decreased with taking Haldol 5mg PO; however, it is causing him to be sedated. Discussed having scheduled dose rather than PRN; pt agreeable. Start: Haldol 2mg PO daily and 5mg PO bedtime. denies SI/HI/VH/AH. He reports sleeping well last night. Continue tx plan. 07/23: human resources talent manager present. Patient reports feeling bad today; continues with various somatic complaints which describe anxiety/panic attack, such as shortness of breathe, feeling lightheaded, having a headache. Patient educated again regarding need to be compliant daily with his medications. Patient did report his paranoia decreasing; patient stated, the thoughts of someone hurting me has decreased from a 10 to a 6 . denies SI/HI/VH/AH. continue tx plan. 07/24: human resources talent manager present. Patient reports feeling a little better ; pt stated, I'm having a little depression but not much and the feeling that someone is going to harm me has gone away . denies SI/HI/VH/AH. He reports sleeping well. continue tx plan. 07/25:Continue current regimen and plans 07/26:Continue current regimen and plans 07/27:human resources talent manager present. Active on unit. medication compliant. Patient reports feeling better than when I first came in ; pt stated, I feel new. I feel even. I no longer am worried someone will harm me . denies SI/HI/VH/AH. Patient reports sleeping well. Patient reports he plans on following up with outpatient providers when discharged. Patient educated on: diagnosis and medication risk/benefits Reason for continued inpatient stay Substantial Risk for: med/psych decompensation Time Spent With Patient Time: Total time managing care of this patient today _20___ minutes.
[2025-07-27 20:00] VITALS: BP 114/59; PULSE 69; RESP 16; TEMP 36.4; O2SAT 97
[2025-07-28 08:04] VITALS: BP 127/68; PULSE 60; RESP 16; TEMP 36.7; O2SAT 98
[2025-07-28] MEDS: methADONE HCl 20 MG/2 ML ORAL.CONC 28 MG PO (09:02)
[2025-07-28] MEDS: Naloxone HCl Nasal TAKE HOME 4 MG SPRAY 8 MG NOSTRILALT (09:15)
--- NOTE | 2025-07-28 09:38 | PM.PSYDC ---
DS: Providers Provider Date of Service: 07/28/25 Date of admission: 07/15/25 13:46 Date of discharge: 07/28/25 Primary care physician: ANETA Poole Admitting clinician: Yanet Stewart Attending physician on admission: Jaswant Peters Attending physician on discharge: Jaswant Peters Discharging clinician: Yanet Stewart DS: Diagnosis Discharge Diagnosis (1) MDD (major depressive disorder), recurrent, severe, with psychosis: Status: Acute (2) JODY (generalized anxiety disorder): Status: Acute (3) Opioid use disorder: Status: Acute DS: Medications Discharge Medications Home Medications: Home Medications ?Medication ?Instructions ?Recorded ?Confirmed cholecalciferol (vitamin D3) 50 50 mcg PO DAILY 06/30/20 07/14/25 mcg (2,000 unit) capsule (Vitamin D3) pantoprazole 40 mg tablet,delayed 40 mg PO DAILY 04/10/25 07/14/25 release calcium polycarbophil 625 mg 625 mg PO BID 07/14/25 07/14/25 tablet (Fiber-Lax) ketotifen fumarate 0.025 % (0.035 1 drp ophthalmic (eye) BID PRN 07/14/25 07/14/25 %) eye drops allergies rosuvastatin 10 mg tablet 10 mg PO QAM 07/14/25 07/14/25 lidocaine 5 % topical patch 1 - 2 patch topical DAILY 07/15/25 07/15/25 methadone 10 mg/mL oral 28 mg PO DAILY 07/15/25 07/15/25 concentrate (Methadone Intensol) Previous Rx's ?Medication ?Instructions ?Recorded syringe (disposable) 3 mL (BD #25 ea 11/27/24 Luer-Vira Syringe) docusate sodium 100 mg capsule 100 mg PO BEDTIME PRN constipation 02/27/25 #90 caps famotidine 20 mg tablet 20 mg PO DAILY PRN GERD #90 tabs 02/27/25 tamsulosin 0.4 mg capsule 0.4 mg PO BEDTIME 90 days #90 caps 04/07/25 testosterone cypionate 200 mg/mL 200 mg IM Q2W 28 days #2 mL 04/07/25 intramuscular oil needle (disp) 22 G 22 gauge x 1 #30 ea 04/21/25 needle (disp) 18 G 18 gauge x 1 #30 ea 04/23/25 (BD Regular Bevel Ramsey) amitriptyline 25 mg tablet 25 mg PO BEDTIME 30 days #30 tabs 07/27/25 diphenhydramine HCl 50 mg capsule 50 mg PO BID PRN extrapyramidal 07/27/25 effects/symptoms 7 days #14 caps fluvoxamine 50 mg tablet 50 mg PO BEDTIME 30 days #30 tabs 07/27/25 haloperidol 2 mg tablet 2 mg PO DAILY 30 days #30 tabs 07/27/25 haloperidol 5 mg tablet 5 mg PO BEDTIME 30 days #30 tabs 07/27/25 quetiapine 100 mg tablet 100 mg PO BEDTIME 30 days #30 tabs 07/27/25 Mental Status Exam Mental Status Exam Narrative: Pt is alert and oriented; behavior is cooperative and calm; dressed in casual attire; mood is described as good ; eye contact appropriate; Speech is normal rate, volume and not pressured; thought process is organized; Thought content is on discharge; denies SI/HI/AH/VH. Data Imaging Diagnostic Imaging Impressions Chest X-Ray 07/14/25 13:12 IMPRESSION: No evidence of acute pulmonary process. Electronically signed by: Rob Summers MD 07/14/2025 01:17 PM [facility] DS: Summary Hospital Course Hospital Course: Patient is a 55 year old male with hx of MDD, JODY and opioid use d/o who self presented to [facility] ER d/t auditory hallucinations and paranoia secondary to poor sleep. Per crisis report, patient presented to ER due to medical and mental health concerns. He reported having high blood pressure, chest pain, neck pain, head pain, and lower back pain. He also reported he has not been eating or sleeping well over the last couple of weeks and noted a 20 lb weight loss. Patient reports auditory hallucinations stating he hears voices and buzzing in his ears however, the symptoms have only been going on for the last 5 days. Patient reports symptoms of paranoia; believing there is gas coming from the air vents and feels he was suffocating. Patient has good insight as he states, sometimes I think I'm crazy but I know I know that they are not real . Patient has no known history of psychosis. Patient reports his mood as happy . Denies SI/HI/VH. History crack and heroin use however, reports he has not been using; last use was a year ago. Utox positive for methadone. Collateral was obtained from patient's spouse, Mirta. Mirta reports patient has been experiencing symptoms of psychosis for the last 5 days but has no known history of psychosis. She reports patient began believing his coffee was poisoned and believes there were cameras in the leung. She reports patient has not been eating or drinking and is not always consistent with taking his medications. During admission assessment, technical sales representatives present. Patient presents alert and oriented x3. calm and cooperative. Patient reports feeling depressed and anxious from not sleeping . Patient stated, I was diagnosed with tuberculosis 12 months ago and I have spoken to multiple specialists who told me 20 times that nothing will happen to me but, I have it in my mind that I'm going to from it. I know it's not true but, I keep thinking negatively about it . Patient reports 2 days ago he felt there was gas coming through the vents of his home but he knows that is not real and reports this is the first time this has occurred. Patient reports having auditory hallucinations last night; patient stated, they tell me not to go to sleep . He currently denies SI/HI/VH/AH. He reports poor sleep and appetite. Denies history of SA/SIB. He reports this is his first inpatient psychiatric hospitalization. Discussed starting on Seroquel; risks/benefits reviewed, patient agreed to trial. Plan: CV 15 minute safety checks Obtain collateral Start: Seroquel 50mg PO bedtime Increase Luvox to 50mg PO daily encourage groups discharge planning Active on unit. Patient reports feeling anxious and having paranoia; pt stated, I woke up scared last night. I'm worried that if I sleep too deep someone will try to hurt me . Pt stated, he understands this sounds psychotic ; per nursing, pt slept 8 hours last night. He agreed to increase in Seroquel; Seroquel increased to 100mg PO bedtime. denies SI/HI/VH/AH. Continue tx plan. Somatically preoccupied. Expressed concern that someone on the unit will try to harm him but recognized it's unlikely. Pt was encouraged to take his medication to reduce anxiety that contributes to uncomfortable physical sensations that he perceives as serious medical issues. Active on unit. technical sales representatives present. Patient continues anxious, guarded, paranoid; he reports not taking all medications that are prescribed d/t not knowing if I can trust you guys . Patient is concerned someone here would try to hurt him but is unable to explain why. He expresses concerns of possible side effects and being alone ; pt reassured there is staff 26/03 and if he were to have a side effect, nursing staff would be available. Discussed taking antipsychotics. risks/benefits reviewed; pt reports he will think about it . Start: Haldol 5mg TID PRN psychosis/agitation Active on unit. technical sales representatives present. Patient continues anxious and paranoid; continues concerned one of the patient's may try to hurt him . He continues with concerns of possible side effects of taking medications; after educating patient multiple times regarding antipsychotics; pt agreeable and took Haldol 5mg PO once; he denied any side effects. Patient focused on somatic complaints; pt stated, I feel like the side of my head is getting bigger . denies SI/HI/VH/AH. Continue tx plan. technical sales representatives present. Patient continues anxious and paranoid; Patient reports paranoia has decreased with taking Haldol 5mg PO; however, it is causing him to be sedated. Discussed having scheduled dose rather than PRN; pt agreeable. Start: Haldol 2mg PO daily and 5mg PO bedtime. denies SI/HI/VH/AH. He reports sleeping well last night. Continue tx plan. technical sales representatives present. Patient reports feeling bad today; continues with various somatic complaints which describe anxiety/panic attack, such as shortness of breathe, feeling lightheaded, having a headache. Patient educated again regarding need to be compliant daily with his medications. Patient did report his paranoia decreasing; patient stated, the thoughts of someone hurting me has decreased from a 10 to a 6 . denies SI/HI/VH/AH. continue tx plan. technical sales representatives present. Patient reports feeling a little better ; pt stated, I'm having a little depression but not much and the feeling that someone is going to harm me has gone away . denies SI/HI/VH/AH. He reports sleeping well. continue tx plan. technical sales representatives present. Active on unit. medication compliant. Patient reports feeling better than when I first came in ; pt stated, I feel new. I feel even. I no longer am worried someone will harm me . denies SI/HI/VH/AH. Patient reports sleeping well. Patient reports he plans on following up with outpatient providers when discharged. Status at Discharge Cognitive/behavioral status at discharge: Patient has insight and demonstrates good judgment in terms of wanting to pursue treatment. Patient has a safety plan that includes presenting to the closest ER or calling 911 if feeling unsafe. Functional status at discharge: independent ambulation Overall status at discharge: patient is back to baseline Time Spent with Patient Time attestation: Total time managing care of this patient today _20___ minutes. Time spent: Less than 30 minutes Discharge Plan Discharge Anticipated Discharge Date/Time: 07/28/25 14:00 Patient Disposition: Home, Self-Care Discharge Diagnosis: MDD, JODY, opioid use d/o Referrals: Dr. Quezada (Psychiatry) [Other] - 08/04/25 3:30 pm Referral Note: TELEHEALTH APPOINTMENT Heather Hale (Therapy) [Other] - 08/10/25 1:15 pm Referral Note: IN OFFICE APPOINTMENT Haily Robb FNP [Primary Care Provider, Medical] - 08/10/25 1:00 pm Referral Note: 07-28-25 Your follow up appt has been scheduled for 08-10-25 @ 1pm Discharge Medications: New fluvoxamine 50 mg Tablet 50 mg PO BEDTIME 30 Days Qty: 30 0RF haloperidol 5 mg Tablet 5 mg PO BEDTIME 30 Days Qty: 30 0RF haloperidol 2 mg tablet 2 mg PO DAILY 30 Days Qty: 30 0RF quetiapine 100 mg Tablet 100 mg PO BEDTIME 30 Days Qty: 30 0RF diphenhydramine HCl 50 mg capsule 50 mg PO BID PRN (Reason: extrapyramidal effects/symptoms) 7 Days Qty: 14 0RF Continued (DME) syringe (disposable) [BD Luer-Vira Syringe] 3 mL syringe See Rx Instructions .Route Qty: 25 0RF Rx Instructions: As directed 1 syringe [id number] 2 syringes total per month for T injection (DME) needle (disp) 22 G 22 gauge x 1 needle See Rx Instructions .Route Qty: 30 0RF Rx Instructions: As directed to inject testosterone (DME) needle (disp) 18 G [BD Regular Bevel Ramsey] 18 gauge x 1 needle See Rx Instructions .Route Qty: 30 0RF Rx Instructions: As directed to draw testosterone cholecalciferol (vitamin D3) [Vitamin D3] 50 mcg (2,000 unit) Capsule 50 mcg PO DAILY ketotifen fumarate 0.025 % (0.035 %) drops 1 drp ophthalmic (eye) BID PRN (Reason: allergies) calcium polycarbophil [Fiber-Lax] 625 mg tablet 625 mg PO BID rosuvastatin 10 mg tablet 10 mg PO QAM methadone [Methadone Intensol] 10 mg/mL Concentrate 28 mg PO DAILY lidocaine 5 % adhesive patch,medicated 1 - 2 patch topical DAILY Rx Instructions: 12 HOURS AND OFF FOR 12 HOURS DIRECTED FOR MILD PAIN amitriptyline 25 mg tablet 25 mg PO BEDTIME 30 Days Qty: 30 0RF pantoprazole 40 mg tablet,delayed release (DR/EC) 40 mg PO DAILY famotidine 20 mg tablet 20 mg PO DAILY PRN (Reason: GERD) Qty: 90 1RF Rx Instructions: Take one tablet daily at bedtime as needed docusate sodium 100 mg capsule 100 mg PO BEDTIME PRN (Reason: constipation) Qty: 90 0RF Rx Instructions: Take one tablet at bedtime as needed for constipation tamsulosin 0.4 mg capsule 0.4 mg PO BEDTIME 90 Days Qty: 90 1RF testosterone cypionate 200 mg/mL oil 200 mg IM Q2W 28 Days Qty: 2 5RF Discontinued fluticasone propionate [Flonase Allergy Relief] 50 mcg/actuation spray,suspension 1 spray intranasal BID Qty: 16 0RF Rx Instructions: administer into each nostril [id number] 50-325-40 mg capsule 1 cap PO DAILY PRN (Reason: pain) Qty: 10 0RF acetaminophen [Tylenol Extra Strength] 500 mg tablet 1,000 mg PO Q8H 10 Days Qty: 60 0RF propranolol 40 mg tablet 40 mg PO Q12H PRN (Reason: anxiety) ipratropium bromide 21 mcg (0.03 %) spray,non-aerosol 1 spray intranasal Q12H polyethylene glycol 3350 17 gram powder in packet 17 g PO DAILY fluvoxamine 25 mg tablet 25 mg PO BEDTIME melatonin 5 mg tablet 5 - 10 mg PO BEDTIME PRN (Reason: insomnia ) Discharge Orders: Discharge Order (Routine); Ordered 11/25/25 Ordered By: Yanet Khabir Diet: Regular diet Activity on Discharge: As tolerated Stand Alone Forms: Patient Portal Discharge page, Community Support Print Language: Tajik Care Plan Goals: Maintain mood and safe behaviors Take medications as prescribed Continue to pursue sobriety Practice coping skills Continue with outpatient providers and reach out to them as needed Health Concerns: Mood stability and behaviors Sobriety Plan of Treatment: Follow up with your PCP, psychiatric provider and other outpatient providers regarding above concerns Take medications as prescribed Assessment: Patient has insight and demonstrates good judgment in terms of wanting to pursue treatment. Patient has a safety plan that includes presenting to the closest ER or calling 911 if feeling unsafe.
== END 2025-07-28 11:29 | disposition home or self-care (01) | DRG 751 ==
LOC: HO.ED 07-15 07:55 → HO.PADLT16 07-15 13:47
PROVIDERS: Registered Nurse Emergency; Admitting Provider Registered Nurse; Emergency Provider Emergency Medicine; PCP Registered Nurse; Responsible Provider Registered Nurse; Visit Provider Psychiatry & Neurology Psychiatry
DX: F33.3 Major depressive disorder, recurrent, severe with psychotic symptoms (principal); E78.5 Hyperlipidemia, unspecified; N40.0 Benign prostatic hyperplasia without lower urinary tract symptoms; K21.9 Gastro-esophageal reflux disease without esophagitis; Z22.7 Latent tuberculosis; F11.20 Opioid dependence, uncomplicated; F41.1 Generalized anxiety disorder; G47.00 Insomnia, unspecified; Z87.891 Personal history of nicotine dependence; Z79.899 Other long term (current) drug therapy
CPT/HCPCS: 36415; 70450; 71046; 80053; 80307; 81001; 84484; 85025; 85610; 93005; 99285; S9485

== ENCOUNTER → 2025-07-14 12:53 | Outpatient (BNV) | payer MEDICAID, SELFPAY | PROVIDERS: PCP Registered Nurse; Visit Provider Internal Medicine Cardiovascular Disease | DX: R07.9 Chest pain, unspecified (principal) | CPT/HCPCS: 93010 ==

== ENCOUNTER → 2025-07-14 12:56 | Outpatient (BNV) | payer MEDICAID, SELFPAY | PROVIDERS: PCP Registered Nurse; Visit Provider Radiology Diagnostic Ultrasound | DX: R41.82 Altered mental status, unspecified (principal); R07.9 Chest pain, unspecified | CPT/HCPCS: 70450; 71046 ==

== ENCOUNTER → 2025-07-15 13:46 | Outpatient (BNV) | payer OTHER, SELFPAY | PROVIDERS: Admitting Provider Registered Nurse; Emergency Provider Emergency Medicine; PCP Registered Nurse; Responsible Provider Registered Nurse; Visit Provider Registered Nurse | DX: F33.3 Major depressive disorder, recurrent, severe with psychotic symptoms (principal); F41.1 Generalized anxiety disorder; F11.90 Opioid use, unspecified, uncomplicated | CPT/HCPCS: 99231; 99232; 99233 ==

== ENCOUNTER → 2025-07-15 13:46 | Outpatient (BNV) | payer MEDICAID, SELFPAY | PROVIDERS: Admitting Provider Registered Nurse; Emergency Provider Emergency Medicine; PCP Registered Nurse; Responsible Provider Registered Nurse; Visit Provider Nurse Practitioner Family | DX: K21.9 Gastro-esophageal reflux disease without esophagitis (principal); N40.0 Benign prostatic hyperplasia without lower urinary tract symptoms | CPT/HCPCS: 99221 ==

== ENCOUNTER 2025-08-05 10:41 | Observation (INO) | payer MEDICAID, SELFPAY ==
[2025-08-05] VITALS (19 sets, daily range): BP systolic 78–131; BP diastolic 51–79; PULSE 53–88; RESP 12–20; TEMP 36.6–36.7; O2SAT 95–99; BMI 20.4
--- NOTE | ~2025-08-05 | XR_ITS ---
EXAMINATION: XR CHEST CLINICAL INFORMATION: chest pain. coughing. pneumonia? COMPARISON: X-ray 07/04/2025 TECHNIQUE: Frontal view of the chest was obtained. FINDINGS: The lungs are well-expanded. Mild peribronchial thickening in the right lower lung. No confluent consolidation. No pneumothorax. No pleural effusions. Normal sized, unchanged cardiomediastinal silhouette. No acute osseous abnormalities. XR/XR chest 1V IMPRESSION: Right lower lung mild peribronchial thickening can be seen with inflammatory/infectious process.. No confluent consolidation. Electronically signed by: Rob Summers MD 08/05/2025 11:36 AM [facility]
--- NOTE | ~2025-08-05 | CT_ITS ---
EXAMINATION: CT ANGIOGRAM CHEST CLINICAL INFORMATION: Chest pain, dyspnea, elevated d-dimer, rule out PE. COMPARISON: Chest x-ray earlier same day. CT dated 12/01/2024. TECHNIQUE: Multiple axial images were obtained through the chest after the administration of 50 mL of Omnipaque 350 intravenous contrast. Extensive vascular post-processing including two-dimensional and three-dimensional reformatted images were created and reviewed on an independent workstation. This CT examination was performed using dose optimization techniques as appropriate, variously including the following: *Automated exposure control *Adjustment of mA and/or kV according to patient size (this includes techniques or standardized protocols for targeted exams where dose is matched to indication/reason for exam; i.e. extremities or head) *Use of iterative reconstruction technique FINDINGS: VASCULAR: Study quality is diagnostic. There is no evidence of pulmonary embolus. The main pulmonary artery is normal in size. No right heart strain is evident. Mild reflux of contrast into the hepatic SVC is noted, which may indicate mildly elevated right heart pressures. The aorta is normal in caliber and course without aneurysm or acute aortic syndrome. Minimal atheromatous disease is present. Great vessels branch normally and are widely patent. The heart size is normal. There is no pericardial effusion. There are no significant coronary calcifications. LUNGS: The lungs are clear bilaterally without evidence of consolidation or abnormal groundglass opacity. There are no suspicious pulmonary nodules are evident. There are a few tiny calcified granulomata present. There are no pleural effusions and there is no pneumothorax. Small airways appear normal without thickening or bronchiectasis. There is minor atelectasis, gravity dependent, and the lower lobes. There is no evidence of interstitial disease. PLEURA: There is no pleural effusion. No pleural mass or thickening. MEDIASTINUM: The thyroid is normal. There is no lymphadenopathy or mass within the mediastinum. Minimally patulous esophagus present without wall thickening. AXILLA/CHEST WALL: No lymphadenopathy or mass. Normal appearance. UPPER ABDOMEN: Limited imaging of the upper abdominal contents demonstrates no abnormalities. OSSEOUS STRUCTURES: There is no suspicious lytic or blastic bone lesion. There are very mild degenerative changes spine. CT/CT angio chest PE protocol IMPRESSION: 1. There is no evidence of pulmonary embolus. There is no evidence of acute aortic syndrome or aneurysm. 2. The lungs are clear bilaterally. There is no active lung disease. Electronically signed by: Kavin Duncan MD 08/05/2025 04:58 PM EST
--- NOTE | 2025-08-05 11:07 | ECG_ITS ---
Test Reason : chest pain Blood Pressure : */* mmHG Vent. Rate : 57 BPM Atrial Rate : 57 BPM P-R Int : 142 ms QRS Dur : 84 ms QT Int : 386 ms P-R-T Axes : 42 33 25 degrees QTcB Int : 375 ms Poor data quality, interpretation may be adversely affected Sinus bradycardia Otherwise normal ECG When compared with ECG of 14-Jul-2025 12:59, Vent. rate has decreased by 39 bpm Referred By: Rah Dhaliwal Electronically Signed By:
--- NOTE | 2025-08-05 11:08 | ED.GENADULT ---
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 Ashby HPI narrative: 55-year-old male came in for evaluation of 3 days of mid chest pain and tightness with cough and difficulty breathing, no recent travel, no recent prolonged immobilization, no lower extremity swelling or tenderness, no history of pulmonary embolism or DVT. Pain is in the mid chest feel like tightness of the chest associated with difficulty breathing. No recent travel, no exposure to sick contacts. No fever, no chills, pain is localized in the mid chest with no radiation, no other associated symptoms. Initially patient was hypotensive improved with IV fluids. Related Data Home Medications ?Medication ?Instructions ?Recorded ?Confirmed cholecalciferol (vitamin D3) 50 50 mcg PO DAILY 06/30/20 08/05/25 mcg (2,000 unit) capsule (Vitamin D3) pantoprazole 40 mg tablet,delayed 40 mg PO DAILY 04/10/25 08/05/25 release calcium polycarbophil 625 mg 625 mg PO BID 07/14/25 08/05/25 tablet (Fiber-Lax) ketotifen fumarate 0.025 % (0.035 1 drp ophthalmic (eye) BID PRN 07/14/25 08/05/25 %) eye drops allergies rosuvastatin 10 mg tablet 10 mg PO DAILY 07/14/25 08/05/25 lidocaine 5 % topical patch 1 - 2 patch topical DAILY 07/15/25 08/05/25 methadone 10 mg/mL oral 28 mg PO DAILY 07/15/25 07/15/25 concentrate (Methadone Intensol) Previous Rx's ?Medication ?Instructions ?Recorded syringe (disposable) 3 mL (BD #25 ea 11/27/24 Luer-Vira Syringe) docusate sodium 100 mg capsule 100 mg PO BEDTIME PRN constipation 02/27/25 #90 caps famotidine 20 mg tablet 20 mg PO DAILY PRN GERD #90 tabs 02/27/25 tamsulosin 0.4 mg capsule 0.4 mg PO BEDTIME 90 days #90 caps 04/07/25 testosterone cypionate 200 mg/mL 200 mg IM Q2W 28 days #2 mL 04/07/25 intramuscular oil needle (disp) 22 G 22 gauge x 1 #30 ea 04/21/25 needle (disp) 18 G 18 gauge x 1 #30 ea 04/23/25 (BD Regular Bevel [place]) amitriptyline 25 mg tablet 25 mg PO BEDTIME 30 days #30 tabs 07/27/25 diphenhydramine HCl 50 mg capsule 50 mg PO BID PRN extrapyramidal 07/27/25 effects/symptoms 7 days #14 caps fluvoxamine 50 mg tablet 50 mg PO BEDTIME 30 days #30 tabs 07/27/25 haloperidol 2 mg tablet 2 mg PO DAILY 30 days #30 tabs 07/27/25 haloperidol 5 mg tablet 5 mg PO BEDTIME 30 days #30 tabs 07/27/25 quetiapine 100 mg tablet 100 mg PO BEDTIME 30 days #30 tabs 07/27/25 Allergies Allergy/AdvReac Type Severity Reaction Status Date / Time SEAFOOD Allergy Severe ANAPHYLAXIS Uncoded 08/05/25 11:04 shellfish Allergy Severe Anaphylaxis Uncoded 08/05/25 11:04 Review of Systems Review of Systems: All other systems are reviewed and are negative Constitutional: Reports as per HPI and Reports no additional constitutional complaints Eyes: Reports as per HPI and Reports no additional eye complaints Reports system reviewed and no additional complaints, except as documented Cardiovascular: Reports as per HPI and Reports no additional cardiovascular complaints Respiratory: Reports as per HPI and Reports no additional respiratory complaints Gastrointestinal: Reports as per HPI and Reports no additional gastrointestinal complaints Genitourinary: Reports no additional female genitourinary complaints Musculoskeletal: Reports no additional musculoskeletal complaints Skin/Breast: Reports system reviewed and no additional complaints, except as docu Psychiatric: Reports no additional psychiatric complaints Endocrine: Reports no additional endocrine complaints Hematologic/Lymphatic: Reports no additional hematologic/lymphatic complaints Allergic/Immunologic: Reports no additional allergic/immunologic complaints Reports system reviewed and no additional complaints, except as documented and Reports Abnormal speech present [facility] Past Medical History Medical History Insomnia [place] Constipation Anemia Hx of substance abuse Smoker History of Helicobacter pylori infection Spinal pain Hypogonadism Erectile dysfunction Hx: UTI (urinary tract infection) BPH (benign prostatic hyperplasia) Hx of hepatitis C GERD (gastroesophageal reflux disease) Anxiety and depression HTN (hypertension) Murmur Surgical History Hx of cystoscopy Family History Family History Mother Diabetes Social History Social History Household Members: Significant Other Household Members Other:: Nephew Housing: Apartment Do you presently have visiting nurse or other home services: No Alcohol intake: former Patient Tobacco Use Status: Former Tobacco user Tobacco use type: Cigarette e-Cigarette/Vaping Use: Never Used Second Hand Smoke Exposure: No Substance Use Type: Crack/Cocaine and Heroin Currently Displaying Signs/Symptoms of Drug Intoxication Withdrawal: No Have you been hit, kicked, punched, or otherwise hurt by someone within the past year? If so, by whom?: No Do you feel safe in your current relationship?: Yes Is there a partner from a previous relationship who is making you feel unsafe now?: No Are you made to feel afraid or neglected: No Advance Directives: No Advance Directives Information Provided: Yes Do you have a plan to hurt others: No Plan Recently lost weight without trying: Yes How much weight loss: Unsure Eating poorly because of decreased appetite: Yes Nutrition screen score: 5 Nutrition Risks: Difficulty swallowing service: No Current occupational status: unemployed Sexual orientation: Straight/Heterosexual Physical Exam ED Vital Signs: Vital Signs - 24 hr 08/05/25 11:04 08/05/25 12:20 08/05/25 12:25 Temperature 98.1 F Pulse Rate 60 53 Respiratory Rate 20 18 18 Blood Pressure 78/52 L 99/51 L 99/51 L Pulse Oximetry 97 95 97 Oxygen Delivery Method Room Air Room Air Room Air 08/05/25 13:00 08/05/25 13:30 08/05/25 14:00 Temperature Pulse Rate 56 80 Respiratory Rate 12 18 Blood Pressure 120/60 122/60 118/60 Pulse Oximetry 99 95 Oxygen Delivery Method Room Air Room Air 08/05/25 14:30 08/05/25 14:37 08/05/25 14:46 Temperature Pulse Rate 80 57 62 Respiratory Rate 20 13 13 Blood Pressure 124/60 118/70 118/67 Pulse Oximetry 97 Oxygen Delivery Method Room Air 08/05/25 15:00 08/05/25 15:30 08/05/25 16:00 Temperature Pulse Rate 88 Respiratory Rate 20 18 Blood Pressure 117/69 114/68 113/70 Pulse Oximetry 95 Oxygen Delivery Method Room Air 08/05/25 17:30 08/05/25 18:00 08/05/25 18:28 Temperature Pulse Rate 78 78 78 Respiratory Rate 18 20 20 Blood Pressure 131/79 130/72 130/72 Pulse Oximetry 96 97 97 Oxygen Delivery Method Room Air Room Air Room Air 08/05/25 19:10 Temperature 98.0 F Pulse Rate 65 Respiratory Rate 18 Blood Pressure 123/67 Pulse Oximetry 96 Oxygen Delivery Method Room Air BMI result Body Mass Index 20.4 Vital signs have been reviewed and appear to be correct. Blood pressure elevated. Heart rate normal. Respiratory rate normal. Temperature normal. Oxygen saturation normal. Appearance: Alert. Oriented X3. No acute distress. Head: Normal external exam. Normocephalic. Atraumatic. No Marrufo signs noted. No raccoon eyes noted Eyes: PERRLA. EOMI. Conjunctiva and sclera normal. Eyelids normal. ENT: TM's Normal. Pharynx normal. Uvula midline. Moist mucous membranes. No trismus noted. No drooling noted. No muffled voice noted. Neck: Normal inspection. Neck supple. FROM. No adenopathy. Thyroid Normal. No meningeal signs. No neck mass noted. CVS: Normal heart rate and rhythm. Heart sound normal. No murmurs noted. Pulses normal throughout. Respiratory: No respiratory distress. Painless inspiration. Breath sounds normal. No wheezes/rales/rhonchi noted. Chest nontender. No accessory muscle usage noted or decreased air movement noted. Abdomen: Soft and nontender. Bowel sounds normal in all 4 quadrants. No distention noted. No organomegaly noted. No visible injury noted. Back: No CVA tenderness. Full range of motion noted. Skin: Skin warm and dry. Normal skin color. Normal skin turgor. No rashes/lesions/lacerations noted. Extremities: No lower extremity edema. Extremities exhibit normal range of motion. Extremities nontender. Neuro: Oriented X 3. Cranial nerve exam: II-XII are grossly intact No motor deficit. No sensory deficit. Reflexes normal. Course Course Course Narrative: RME: 55-year-old male presents to ED for chest pain, shortness of breath and slight cough. Patient found to be hypotensive during triage. Patient has had multiple readings systolic 80s and 70s. Patient is brought back to the ED immediately labs EKG chest x-ray ordered. Reevaluation(s) Reevaluation #1: 55-year-old male came in for evaluation of chest pain, initially found to have hypotension secondary to unclear etiology. Patient is not taking antihypertensive medication, was covered initially with empirical antibiotic patient's Workup do not meet sepsis criteria, will discontinue antibiotic now. CT of the chest reveals no pulmonary embolism. Hypotension improved with fluids. Will admit for hypotension monitoring. Time: 19:52 Medications Administered Generic Name Dose Route Start Last Admin Trade Name Freq PRN Reason Stop Dose Admin Acetaminophen 650 mg 08/05/25 19:30 08/06/25 08:29 Acetaminophen 325 Mg Tablet PO 325 mg Q6H PRN Administration Pain, Mild 1-3,fever,headache Amitriptyline HCl 25 mg 08/06/25 00:40 08/06/25 01:39 Amitriptyline Hcl 25 Mg Tablet PO 25 mg BEDTIME MARIA G Administration Doxycycline Monohydrate 100 mg 08/06/25 07:00 08/06/25 08:25 Doxycycline Monohydrate 100 Mg Capsule PO 100 mg Q12H MARIA G Administration Enoxaparin Sodium 40 mg 08/05/25 20:00 08/05/25 20:09 Enoxaparin Sodium 40 Mg/0.4 Ml Syringe SUBCUT 40 mg Q24H MARIA G Administration Fluvoxamine Maleate 50 mg 08/06/25 00:40 08/06/25 01:39 Fluvoxamine Maleate 50 Mg Tablet PO 50 mg BEDTIME MARIA G Administration Haloperidol 2 mg 08/06/25 09:00 08/06/25 08:25 Haloperidol 1 Mg Tablet PO 2 mg DAILY MARIA G Administration Haloperidol 5 mg 08/06/25 00:40 08/06/25 01:39 Haloperidol 5 Mg Tablet PO 5 mg BEDTIME MARIA G Administration Lactated Ringer's 1,000 mls @ 100 mls/hr 08/05/25 19:30 08/06/25 05:47 Lr IVCONT 100 mls/hr .Q10H MARIA G Administration Omeprazole 20 mg 08/06/25 06:30 08/06/25 05:47 Omeprazole 20 Mg Capsule.Dr PO 20 mg DAILY@0630 MARIA G Administration Quetiapine Fumarate 100 mg 08/06/25 00:40 08/06/25 01:39 Quetiapine Fumarate 100 Mg Tablet PO 100 mg BEDTIME MARIA G Administration Sodium Chloride 3 ml 08/06/25 00:00 08/06/25 08:27 0.9 % Sodium Chloride Flush 3 Ml Syringe IVFLUSH Not Given QSHIFT MARIA G Tamsulosin HCl 0.4 mg 08/06/25 00:40 08/06/25 01:39 Tamsulosin Hcl 0.4 Mg Capsule PO 0.4 mg BEDTIME MARIA G Administration Discontinued Medications Generic Name Dose Route Start Last Admin Trade Name Theeq PRN Reason Stop Dose Admin Dexamethasone Sodium Phosphate 8 mg 08/05/25 13:52 08/05/25 14:38 Dexamethasone Sod Phosphate 4 Mg/Ml Vial IVPUSH 08/05/25 13:53 8 mg ONCE ONE Administration Diphenhydramine HCl 50 mg 08/05/25 13:45 08/05/25 14:38 Diphenhydramine Hcl 50 Mg/Ml Vial IVPUSH 08/05/25 13:46 50 mg ONCE ONE Administration Ceftriaxone Sodium 1 gm/ 50 mls @ 100 mls/hr 08/05/25 11:43 08/05/25 12:13 Sodium Chloride IV 08/05/25 12:12 Infused ONCE ONE Infusion Doxycycline Hyclate 100 mg/ 250 mls @ 166.67 mls/hr 08/05/25 11:43 08/05/25 14:37 Sodium Chloride IV 08/05/25 13:12 Infused ONCE ONE Infusion Lactated Ringer's 1,824 mls @ 1,824 mls/hr 08/05/25 11:44 08/05/25 14:20 Lr 30 ml/kg infuse over 1 hr (1824 ml) 08/05/25 12:43 Infused IVCONT Infusion .Q1H ONE Iohexol 100 ml 08/05/25 16:17 08/05/25 16:18 Iohexol 350 Mg/Ml 100 Ml Infus..Btl IV 08/05/25 16:18 65 ml ONCE ONE Administration Methylprednisolone Sodium Succinate 60 mg 08/05/25 11:43 08/05/25 12:02 Methylprednisolone Sod Succ 125 Mg/2 Ml Vial IVPUSH 08/05/25 11:44 60 mg ONCE ONE Administration Medical Decision Making Differential Diagnosis Differential Diagnoses: The differential diagnosis associated with the presentation includes ( Pneumonia, pneumothorax, pleural effusion, ACS, CHF, pulmonary embolism, electrolyte derangement, severe anemia, dehydration.) Admission/Observation Consideration of admission/observation: Escalation of care including admission/observation considered Lab Data MDM Lab Attestation statement: I reviewed the patient's lab results. 08/06/25 05:36 08/06/25 05:36 Labs: Lab Results 08/05/25 08/05/25 Range/Units 11:40 18:51 WBC 6.7 (4.8-10.8) X10*3/uL RBC 4.31 L (4.60-5.80) X10*6/uL Hgb 13.9 L (14.0-18.0) g/dl Hct 41.2 L (42.0-52.0) % MCV 95.6 (80.0-98.0) fL MCH 32.3 (27.0-33.0) pg MCHC 33.7 (31.0-36.0) g/dl RDW 11.9 (11.0-16.0) % Plt Count 154 L D (160-400) X10*3/uL MPV 11.4 (9.4-12.4) fL Immature Gran % (Auto) 0.3 (0.0-0.4) % Neut % (Auto) 70.2 (45-73) % Lymph % (Auto) 19.3 L (20-40) % [place] % (Auto) 6.9 (2-11) % Eos % (Auto) 2.7 (0-4) % Baso % (Auto) 0.6 (0-2) % Lymph # (Auto) 1.3 (1.2-4.9) X10*3/uL [place] # (Auto) 0.5 (0.1-1.2) X10*3/uL Eos # (Auto) 0.2 (0.0-0.4) X10*3/uL Baso # (Auto) 0.0 (0.0-0.2) X10*3/uL Abs Immat Gran (auto) 0.02 (0.00-0.03) X10*3/uL Absolute Neuts (auto) 4.7 (2.0-8.3) x10*3/uL Absolute Nucleated RBC 0.000 (0.0-0.012) X10*3/uL Nucleated RBC % (auto) 0.0 (0.0-0.2) /100WBC PT 11.6 (11.2-13.5) SEC INR 0.9 (0.9-1.1) APTT 28.8 (26.7-34.1) SEC D-Dimer High Sensitivty 349 NG/ML Sodium 143 (135-145) mmol/L Potassium 4.2 D (3.3-5.1) mmol/L Chloride 105 (96-108) mmol/L Carbon Dioxide 32 H (22-29) mmol/L Anion Gap 10 L (12-20) BUN 16 (9-16) mg/dL Creatinine 1.03 (0.5-1.4) mg/dL Estim Creat Clear Calc 68.0 Estimated GFR > 60 Random Glucose 106 (60-115) mg/dL Lactic Acid 1.3 (0.5-2.0) mmol/L Calcium 9.1 (8.4-10.2) mg/dL Total Bilirubin 0.7 (0.0-1.0) mg/dL AST 31 (5-37) U/L ALT 57 H (0-40) U/L Alkaline Phosphatase 60 (39-117) U/L Troponin I High Sens < 2.7 (<3.5-35.0) ng/L NT-Pro-B Natriuret Pep 43.2 (<300) pg/mL Total Protein 6.8 (6.5-8.0) g/dL Albumin 4.3 (3.5-5.0) g/dL Influenza Type A (PCR) NEGATIVE (Negative) Influenza Type B (PCR) NEGATIVE (Negative) RSV RNA Qual (PCR) NEGATIVE (Negative) SARS-CoV-2 RNA (RT-PCR) NEGATIVE (Negative) Independent Interpretation I performed an independent interpretation of an: Plain X-Ray ( Chest:Right lower lung mild peribronchial thickening can be seen with inflammatory/infectious process.. No confluent consolidation. ) and CT Scan ( CT angio of the chest:. There is no evidence of pulmonary embolus. There is no evidence of acute aortic syndrome or aneurysm. 2. The lungs are clear bilaterally. There is no active lung disease.) Radiology Impression Discussion of test interpretation with radiology: I have reviewed the radiologist's reading. Discharge Plan Discharge Clinical Impression: Hypotension Chest pain Qualifiers: Chest pain type: unspecified Qualified Code(s): R07.9 - Chest pain, unspecified Patient Disposition: Admitted As Inpatient Interventions: Admission Worksheet (ED) Last Done: 08/06/25 02:37 Discharge Date/Time: 08/06/25 03:30
[2025-08-05 11:47] LABS: MANUAL DIFF FLAG NO
[2025-08-05 11:55] LABS: INTERNATIONAL NORM RATIO 0.9 (0.9-1.1); Prothrombin Time 11.6 SEC (11.2-13.5)
[2025-08-05 11:57] LABS: Hematocrit 41.2 % (42.0-52.0); Hemoglobin 13.9 g/dl (14.0-18.0); Imm Gran Abs Auto 0.02 X10*3/uL (0.00-0.03); Imm Gran Pct Auto 0.3 % (0.0-0.4); Lymphocytes Absolute Auto 1.3 X10*3/uL (1.2-4.9); Mean Corpuscular HGB Conc 33.7 g/dl (31.0-36.0); Mean Corpuscular Hemoglobin 32.3 pg (27.0-33.0); Mean Corpuscular Volume 95.6 fL (80.0-98.0); NRBC Abs Auto 0.000 X10*3/uL (0.0-0.012); NRBC Pct Auto 0.0 /100WBC (0.0-0.2); Partial Thromboplastin Time 28.8 SEC (26.7-34.1); Platelet Count 154 X10*3/uL (160-400); Red Blood Count 4.31 X10*6/uL (4.60-5.80); White Blood Count 6.7 X10*3/uL (4.8-10.8)
[2025-08-05 12:05] LABS: D Dimer High Sensitivity 349 NG/ML
[2025-08-05 12:15] LABS: Alanine Aminotransferase 57 U/L (0-40); Albumin Level 4.3 g/dL (3.5-5.0); Alkaline Phosphatase 60 U/L (39-117); Anion Gap 10 (12-20); Aspartate Amino Transferase 31 U/L (5-37); Blood Urea Nitrogen 16 mg/dL (9-16); Calcium 9.1 mg/dL (8.4-10.2); Carbon Dioxide 32 mmol/L (22-29); Chloride 105 mmol/L (96-108); Creatinine Clr Calc Pharmacy 68.0; Estimated Glomerular Filt Rate > 60; Potassium 4.2 mmol/L (3.3-5.1); Sodium 143 mmol/L (135-145); Total Protein 6.8 g/dL (6.5-8.0)
[2025-08-05 12:22] LABS: NT Pro B Type Natriuretic Pept 43.2 pg/mL (<300)
[2025-08-05 12:25] LABS: Troponin-I High Sensitivity < 2.7 ng/L (<3.5-35.0)
--- OUTSIDE RECORDS SUMMARY | 2025-08-05 13:43 | XMS_ITS ---
Author Organization [employer] Address [address] [facility] [address] [place] [address] Care Team Providers Care Digital Service Engineer Name Role Phone Velpen Cresco COIL SPRING ASSEMBLER Primary Care Provider [phone] Gregoria Brooks RN Unavailable [phone] Latricia Houser Unavailable CHW Complex Status:Enrolled (Active) Start date:06/16/2025 Enrollment date:06/16/2025 Enrollment reason:Referred by provider Overview Provider Referral- Patient needs assistance with getting reconnected with the [facility] Adult Day program. Please outreach to patient. Case Team Name Relationship Phone Latricia Houser(Responsible Staff) Continued Care and Services Coordination
--- OUTSIDE RECORDS SUMMARY | 2025-08-05 13:43 | XMS_ITS ---
Author Organization [employer] Address [address] [facility] [address] [place] [address] Care Team Providers Care Senior Data Analyst Name Role Phone [facility] Primary Care Provider [phone] Gregoria Brooks RN Unavailable [phone] Latricia Houser Unavailable CM Complex Status:Enrolled (Active) Start date:06/15/2025 Enrollment date:06/17/2025 Enrollment reason:Referred by provider Overview Provider Referral- Patient needs assistance with getting reconnected with the [facility] Adult Day program. Case Team Name Relationship Phone Gregoria Brooks RN(Responsible Staff) Registered Nurse Continued Care and Services Coordination
--- OUTSIDE RECORDS SUMMARY | 2025-08-05 13:43 | XMS_ITS | Encounter Summary ---
Author Organization [employer] Address [address] [facility] [address] [place] [address] Care Team Providers Care Material Spreader Name Role Phone [facility] Primary Care Provider Gregoria Brooks RN Unavailable [phone] Latricia Houser Unavailable Reason for Visit * Reason Comments Med Refill Encounter Details Date Type Department Care Team (Late st Contact Info) Description 09/05/2022 Telephone [facility] [address] [place], [place] [phone] [facility] [address] [place] [address] Med Refill Social History Tobacco Use Types [...] - 09/06/2022 8:18 AM EST TC via P/I#[id number], explained to pt that his Clonazepam was prescribed from his psychiatric providerat [address] [facility] Teresita Kruegere Madyson MSN. Provided pt the phone number for the [facility] site and encouraged him to call them for all refills of his Clonazepam. Pt thanked brief writer and said he understood. * Telephone Encounter - Yessi Cannon RN - 09/05/2022 3:04 PM EST Note on 08/02/22: Medication request:CLONAZEPAM Last visit 06/27/22. You sent a refill in June, it was picked up 07/12/22. He was originally getting this elsewhere. Not sure what you'd like to do. If you'll now be prescribing, then would you like him on TOOL AND DIE SUPERVISOR? documented in this encounter Plan of Treatment Upcoming Encounters Date Type Department Care Team (Late st Contact Info) Description 08/10/2025 1:00 PM EST Office Visit [facility] [address] [place] [address] Sanam Noland MD [address] [place] [address] documented as of this encounter Visit Diagnoses Diagnosis Other specified anxiety disorders documented in this encounter Care Teams Material Spreader Relationship Specialty Start Date End Date [facility] [address] [place] [address] PCP - General Family Medicine 05/01/22 Gregoria Brooks RN [address] [place] [address] Registered Nurse Family Medicine 06/15/25 Latricia Houser 06/16/25 documented as of this encounter
--- OUTSIDE RECORDS SUMMARY | 2025-08-05 13:43 | XMS_ITS | Encounter Summary ---
Author Organization [employer] Address [address] [facility] [address] [place] [address] Care Team Providers Care Provider Enrollment Specialist Name Role Phone Clarisse [facility] Primary Care Provider Gregoria Brooks RN Unavailable [phone] Latricia Houser Unavailable Reason for Visit * Reason Onset Date Comments Triage 09/20/2022 Encounter Details Date Type Department Care Team (Late st Contact Info) Description 09/20/2022 Telephone [facility] [address] [place], [place] [phone] ClarisseHaily [facility] [address] [place], [place] [phone] Triage Social History Tobacco Use Types Packs/Day [...] 09/20/2022 11:55 AM EST Triage call with [place] [employer] Motor Builder ID [id number] Pt reports an area on back that [...] No high acuity concerns reported by caller GERMAN SPEAKER The caller accepted this outcome documented in this encounter Plan of Treatment Upcoming Encounters Date Type Department Care Team (Late st Contact Info) Description 08/10/2025 1:00 PM EST Office Visit [facility] [address] [place] [address] Sanam Noland MD [address] [place] [address] documented as of this encounter Visit Diagnoses Not on filedocumented in this encounter Care Teams Provider Enrollment Specialist Relationship Specialty Start Date End Date Haily Robb FNP [address] [place] [address] PCP - General Family Medicine 05/01/22 Gregoria Brooks RN [address] [place] [address] Registered Nurse Family Medicine 06/15/25 Latricia Houser 06/16/25 documented as of this encounter
--- OUTSIDE RECORDS SUMMARY | 2025-08-05 13:43 | XMS_ITS | Encounter Summary ---
Author Organization [employer] Address [address] [facility] [address] [place] [address] Care Team Providers Care Vice President Diversity Name Role Phone Clarisse [facility] Primary Care Provider [phone] Gregoria Brooks RN Unavailable [phone] Latricia Houser Unavailable Reason for Visit * Reason Comments Med Refill Encounter Details Date Type Department Care Team (Late st Contact Info) Description 07/08/2024 Refill [facility] [address] [place], [place] [phone] [place] [facility] [address] [place], [place] [phone] Mixed anxiety and depressive disorder Social History [...] Description 08/10/2025 1:00 PM EST Office Visit [facility] [address] [place] [address] Sanma Noland MD [address] [place] [address] documented as of this encounter Goals Goal [...] documented as of this encounter Care Teams Vice President Diversity Relationship Specialty Start Date End Date Haily Robb FNP [address] [place] [address] PCP - General Family Medicine 05/01/22 Gregoria Brooks RN [address] [place] [address] Registered Nurse Family Medicine 06/15/25 Latricia Houser 06/16/25 documented as of this encounter
--- OUTSIDE RECORDS SUMMARY | 2025-08-05 13:43 | XMS_ITS | Encounter Summary ---
Author Organization [employer] Address [address] [facility] [address] [place] [address] Care Team Providers Care Wild Life Photographer Name Role Phone Haily Robb COURTESY CLERK Primary Care Provider [phone] Gregoria Brooks RN Unavailable [phone] Latricia Houser Unavailable Reason for Visit * Reason Onset Date Comments Appointment Request 10/08/2023 Encounter Details Date Type Department Care Team (Late st Contact Info) Description 10/08/2023 Telephone [facility] [address] [place], [place] [phone] Haily Robb FNP [address] [place], [place] [phone] Appointment Request Social History Tobacco Use Types [...] gotten any better. Please contact pt at [phone] documented in this encounter Plan of Treatment Upcoming Encounters Date Type Department Care Team (Late st Contact Info) Description 08/10/2025 1:00 PM EST Office Visit [facility] [address] [place] [address] Sanam Noland MD [address] [place] [address] documented as of this encounter Visit Diagnoses Not on filedocumented in this encounter Additional Health Concerns Assessment Noted Time PHQ-9 Depression Total Score: 0 08/15/20 23 3:52 PM EST documented as of this encounter Care Teams Wild Life Photographer Relationship Specialty Start Date End Date Haily Robb FNP [address] [place] [address] PCP - General Family Medicine 05/01/22 Gregoria Brooks RN [address] [place] [address] Registered Nurse Family Medicine 06/15/25 Latricia Houser 06/16/25 documented as of this encounter
--- OUTSIDE RECORDS SUMMARY | 2025-08-05 13:43 | XMS_ITS | Encounter Summary ---
Author Organization [employer] Address [address] [facility] [address] [place] [address] Care Team Providers Care Nailhead Setter Name Role Phone Haily Robb [facility] Primary Care Provider [phone] Gregoria Brooks RN Unavailable [phone] Latricia Houser Unavailable Reason for Visit * Reason Comments Med Refill Encounter Details Date Type Department Care Team (Late st Contact Info) Description 10/29/2023 Refill [facility] [address] [place] [address] Name, MD Collins [address] [place], [place] [phone] Chronic neck pain Social History Tobacco Use [...] Description 08/10/2025 1:00 PM EST Office Visit [facility] [address] [place] [phone] Sanam Noland MD [address] [place] [address] documented as of this encounter Visit Diagnoses Diagnosis Chronic neck pain Cervicalgia documented in this encounter Additional Health Concerns Assessment Noted Time PHQ-9 Depression Total Score: 0 08/15/20 23 3:52 PM EST documented as of this encounter Care Teams Nailhead Setter Relationship Specialty Start Date End Date Haily Robb FNP [address] [place] [id number] PCP - General Family Medicine 05/01/22 Gregoria Brooks RN [address] [place] [id number] Registered Nurse Family Medicine 06/15/25 Latricia Houser 06/16/25 documented as of this encounter
--- OUTSIDE RECORDS SUMMARY | 2025-08-05 13:43 | XMS_ITS | Encounter Summary ---
Author Organization [employer] Address [address] [facility] [address] [place] [address] Care Team Providers Care Vice President Of Communications Name Role Phone Clarisse [facility] Primary Care Provider rGegoria Brooks RN Unavailable [phone] Latricia Houser Unavailable Reason for Visit * Reason Onset Date Comments Med Refill 09/25/2023 Encounter Details Date Type Department Care Team (Late st Contact Info) Description 09/25/2023 Telephone [facility] [address] [place], [place] [phone] ClarisseHaily [facility] [address] [place], [place] [phone] Med Refill Social History Tobacco Use Types [...] 200 MG/ML injection To be sent to: [facility] - [place], [place] - [address] [facility] documented in this encounter Plan of Treatment Upcoming Encounters Date Type Department Care Team (Late st Contact Info) Description 08/10/2025 1:00 PM EST Office Visit [facility] [address] [place] [address] Sanam Noland MD [address] [place] [address] documented as of this encounter Visit Diagnoses Not on filedocumented in this encounter Additional Health Concerns Assessment Noted Time PHQ-9 Depression Total Score: 0 08/15/20 3:52 PM EST documented as of this encounter Care Teams Vice President Of Communications Relationship Specialty Start Date End Date Haily Rob[place] [address] [place] [address] PCP - General Family Medicine 05/01/22 Gregoria Brooks RN [address] [place] [phone] Registered Nurse Family Medicine 06/15/25 Latricia Houser 06/16/25 documented as of this encounter
--- OUTSIDE RECORDS SUMMARY | 2025-08-05 13:43 | XMS_ITS | Clinical Summary ---
Author Organization [employer] Address [address] [facility] [address] [place] [address] Care Team Providers Care [employer]ile [employer] Sales Representative Name Role Phone Clarisse [facility] Primary Care Provider [phone] Gregoria Brooks RN Unavailable [phone] Latricia Houser Unavailable Allergies Active Allergy [...] Hypodermic Needle 18G X 1 misc Active cholecalciferol (D3 Super Strength) 50 MCG [...] at bedtime (pain). 150 g 3 Active DULoxetine (Cymbalta) [address] capsule [...] NOSTRIL ONCE DAILY 48 g 025 Active Additional Information Patient not taking.Reported on 08/03/2025 amitriptyline (Elavil) 25 MG tabletIndications :Chronic nonintractable [...] . 527 g 2 025 2025 Active Additional Information Patient not taking.Reported on 08/03/2025 GAS RELIEF 125 MG capsule TAKE 1 CAPSULE BY MOUTH 4 TIMES A DAY IN THE MORNING, AT NOON, IN THE EVENING, AND AT BEDTIME NEEDED FOR GAS 30 capsule 1 Active baclofen (Lioresal) 10 MG tabletIndications :Acute [...] for up to 15 days. 30 tablet Active lidocaine (Lidoderm) 5 % patch APPLY 1 TO 2 PATCHES TOPICALLY TO SKIN, LEAVE ON FOR 12 HOURS AND OFF FOR 12 HOURS DIRECTED FOR MILD PAIN 60 patch 1 Active rosuvastatin (Crestor) 10 MG tabletIndications :Mixed hyperlipidemia TAKE 1 TABLET BY MOUTH EVERY MORNING 90 tablet 3 Active fluvoxaMINE (Luvox) 50 MG tablet Take 50 mg by mouth at bedtime. Active haloperidol (Haldol) 2 MG tablet Take 2 mg by mouth in the morning. Active haloperidol (Haldol) 5 MG tablet Take 5 mg by mouth at bedtime. Active QUEtiapine (SEROquel) 100 MG tablet Take 100 mg by mouth at bedtime. Active diphenhydrAMINE (BENADryl) 50 MG capsule TAKE 1 CAPSULE BY MOUTH TWICE DAILY NEEDED FOR SIDE EFFECTS 11/24/2 025 Active hydrOXYzine HCl (Atarax) 25 MG tabletIndications :Chronic pruritus TAKE 1 TABLET BY MOUTH EVERY 6 HOURS NEEDED FOR ANXIETY OR FOR ITCHING 120 tablet 024 2024 Discontinued(R eorder (will not trigger notification to Pharmacy)) rosuvastatin (Crestor) 10 MG tabletIndications :Mixed hyperlipidemia TAKE 1 TABLET BY MOUTH EVERY MORNING 90 tablet 3 024 2024 Discontinued lidocaine (Lidoderm) 5 % patch Apply 1-2 patches topically if needed each day for mild pain (pain). Remove & discard patch within 12 hours or as directed by MD. 60 patch 1 025 2024 Discontinued Acetaminophen 500 MG capsuleIndication s:Acute non intractable tension-type headache Take 1 capsule (500 mg) by mouth every 8 (eight) hours if needed for moderate pain or fever. 30 capsule 025 2024 ibuprofen 600 MG tabletIndications :Acute left-sided thoracic back pain Take 1 tablet (600 mg) by mouth every 6 (six) hours if needed for mild pain for up to 14 days. 42 tablet 025 2024 Active Problems Problem Noted Date [...] Avoidance of pollen as much as possible. [place] of ophthalmic mast cell stabilizer, nasal steroid and antihistamine. LLQ pain 01/06/2025 Assessment & Plan (01/06/2025 11:25 AM EDT): No evidence of acute abdomen. Chronic. He needs colon cancer screening and has been referred to [facility] in the past. He was encouraged to call in November but did not. We called today to facilitate appointment and give him the number to call. ER precautions discussed. [facility] reports pt has to call himself due to cancelled and did not make follow up. He was given the number [phone]. I stressed the importance of following up [...] any case Continue Carafate Call GI at [facility] for EGD and colonoscopy Eat small frequent [...] 03/2023 Established with therapy and psychiatry at [facility] No rash, fever, chills, lymphadenopathy Odynophagia [...] for anxiety sxs) that comes referred from [facility] for exacerbated anxiety in presence of increased [...] a good support system through his family, yazidism and recovery network, as well as having [...] to explore potential nerve damage due to fpc use of anxiolytics, even though John is on low dose medication. At this time is unclear if crawling/burning sensation on skin is solely due to medical and/or somatic presentation. However, sxs are causing significant psychological distress in patient. John was given information on how to reach out to [facility] BHI team and [facility] numbers for crisis. He was [...] in male 11/02/2022 Overview (11/02/2022): Followed by [facility] urology Dr. Lux subcutaneous testosterone injection Assessment [...] (07/10/2025 3:08 PM EST): - Seen by [facility] TB clinic, he had no evidence of [...] of this appointment. His appointment is at [facility] Tb clinic [phone] on January 27 at 11:00 am. He [...] depressive disorder 02/22/2017 Overview (08/05/2023): Followed by [facility] Clonazepam PRN Clonidine PRN Assessment & Plan (07/10/2025 3:12 PM EST): We had a lengthy discussions about patient's not taking medication regularly and staying constantly concerned about medical issues. I advised him to start taking Elavil and Seroquel nightly + duloxetine and follow-up with PCP or MH provider Patient feels safe at home and is able to reach out for safety Assessment & Plan (11/06/2022 5:05 AM EST): Spoke with [facility]-the blue conazepam tablets that patient prefer are from a different computer equipment repairer and are on back order. Pt will [...] Encounters Date Type Department Care Team Description 08/03/2025 Patient Outreach [facility] MEDICINE [address] [place] [phone] Haily Robb FNP Care Management (C3CM- FOLLOW UP CALL/) 07/30/2025 Refill [facility] MEDICINE [address] [place] [phone] Haily Robb FNP Mixed hyperlipidemia 07/29/2025 Patient Outreach [facility] MEDICINE [address] [place] [phone] Haily Robb FNP 07/28/2025 Patient Outreach [facility] MEDICINE [address] [place] [phone] Haily Robb FNP Transition Of Care (Tcm) (HDF- Scheduled (direct)) 07/23/2025 Refill [facility] WALK-IN CENTER [address] [place] [phone] Roxana Gotti DO 07/22/2025 Patient Outreach [address] [address] [place] [facility] 07/21/2025 Patient Outreach [address] [address] [facility] Care Management (C3CM- FOLLOW UP CALL ) 07/17/2025 Patient Outreach [address] [address] [facility] Care Management (CARE COORDINATION/APPOINTM ENT RESCHEDULE) 07/15/[address] [address] [facility] Haily [facility] No Show 07/14/2025 Orders Only GENERIC EXTERNAL DATA DEPARTMENT Provider, Generic External Data 07/14/2025 Travel 07/14/[address] [address] [place] [facility] Nurse Triage 07/13/2025 Patient Outreach [address] [address] [facility] Care Management (C3CM- FOLLOW UP CALL/) 07/10/2025 11:20 AM EST Office Visit [facility] WALK[facility]IN [facility] [address] [place] [phone] Hoa Dueñas NP Other chest pain (Primary Dx); Tachycardia 07/10/[address] [address] [place] [employer]ER EXHAUSTER Results 07/10/2025 Telephone [facility] W[facility] [address] [place] [address] Hoa Dueñas NP Nurse Triage (CHEST PAIN) 07/10/2025 Travel 07/09/2025 9:00 AM EST Office Visit [address] [address] Francy Jennings MD High direct bilirubin (Primary Dx); Positive TB test; Mixed anxiety and depressive disorder; Chronic bilateral low back pain without sciatica; Screen for STD (sexually transmitted disease) 07/09/2025 Orders Only [facility] External Provider, [facility] 07/09/2025 Travel 07/08/2025 Telephone [facility] PEDIATRICS [address] [place] [address] Haily Robb FNP Nurse Triage 07/07/[address] [address] Haily Robb FNP Care Coordination 07/06/2025 Results Follow-Up [facility] [address] [address] Haily Robb FNP US Abdomen Complete 07/06/2025 Patient Outreach [address] [address] Haily Robb FNP Care Management 07/05/2025 Orders Only GENERIC EXTERNAL DATA DEPARTMENT Provider, Generic External Data 07/03/2025 1:00 PM EDT Office Visit [address] [address] Jyoti Resendiz NP Acute left-sided thoracic back pain (Primary Dx); Other chest pain 07/03/2025 Travel 07/03/[address] [address] Haily Robb FNP ER Follow-up 07/02/2025 Orders Only GENERIC EXTERNAL DATA DEPARTMENT Provider, Generic External Data 07/01/2025 Patient Outreach [address] [address] Haily Robb FNP Care Management (C3CM- FOLLOW UP CALL) 06/30/2025 Patient Outreach [address] [address] Haily Robb FNP Care Coordination (C3 CM-W Latricia Houser telephone call outreach/) 06/24/2025 2:40 PM EDT Office Visit [address] [address] Hollis Rutledge MD Erythema (Primary Dx); Positive QuantiFERON-TB Gold test 06/24/2025 Results Follow-Up [facility] [address] [place] [address] Hollis Rutledge MD XR Chest 2 Views 06/24/2025 Patient Outreach [address] [address] Lino Holder Recovery Supports 06/24/2025 Travel 06/24/[address] [address] Hermes Black, RN OBAT Communication 06/24/[address] [address] Haily Robb FNP Results 06/23/2025 Patient Outreach [address] [address] Haily Robb FNP Care Management (C3CM- FOLLOW UP CALL ) 06/23/2025 Refill [facility] WALK-IN CENTER [address] [place] [phone] Roxana Gotti DO 06/22/2025 1:20 PM EDT Office Visit [facility] WALKIN CENTER [address] [place] [address] Sanam Noland MD Acute non intractable tension-type headache; Palpitations; Left lower quadrant abdominal pain; Slow transit constipation 06/18/2025 Plan of Care Documentation [address] [address] 06/18/2025 Patient Outreach [address] [address] aHily Robb FNP Care Coordination 06/17/2025 Plan of Care Documentation [address] [address] 06/17/2025 Patient Outreach [address] [address] Haily Robb FNP Care Management (C3CM COMPLEX INITIAL ASSESSMENT/ ENROLLMENT-/) 06/16/2025 Patient Outreach [address] [address] Haily Robb FNP Care Coordination (C3 CM-CHW Latricia Houser telephone call outreach) 06/16/2025 Patient Outreach [address] [address] Haily Robb FNP Care Coordination (C3 CM-CHW Latricia Houser chart review) 06/16/2025 Patient Outreach [address] [address] Haily Robb FNP Care Management (C3CM -CHART REVIEW ) 06/15/2025 Patient Outreach [address] [address] Haily Robb FNP 06/13/2025 Orders Only GENERIC EXTERNAL DATA DEPARTMENT Provider, Generic External Data 06/10/2025 2:00 PM EDT Office Visit [address] [address] Haily Robb FNP Somatic symptom disorder, persistent, moderate (Primary Dx); Latent tuberculosis; Encounter for immunization 06/10/2025 Travel 06/09/[address] [address] Haily Robb FNP 06/04/[address] [address] Haily Robb FNP 06/04/2025 Refill [facility] WALK-IN CENTER [address] [place] [address] Elda Love MD Seasonal allergies; Chronic nonintractable headache, unspecified headache type 06/03/[address] [address] Haily Robb FNP Epigastric pain 06/03/2025 Refill [facility] WALK-IN CENTER [address] [place] [address] Roxana Gotti DO 06/03/2025 Patient Outreach [address] [address] Haily Robb FNP Pre-visit Planning (SDOH screening negative and tobacco screening negative) 06/03/2025 Refill [facility] WALK-IN CENTER [address] [place] [address] Haily Robb FNP Restless leg 06/02/2025 3:40 PM EDT Office Visit [facility] WALK-IN CENTER [address] [place] [address] Elda Love MD Acute URI (Primary Dx) 06/02/2025 Travel 05/31/2025 Refill [facility] [address] [place] [address] Haily Robb FNP Restless leg 05/27/2025 Refill [facility] WALK-IN CENTER [address] [place] [address] Jana Morgan MD Bilateral lower extremity edema 05/19/2025 Orders Only [facility] MEDICINE [address] [place] [phone] Sanam Noland MD Chronic bilateral low back pain without sciatica (Primary Dx) 05/19/2025 Telephone [facility] MEDICINE [address] [place] [address] Haily Robb FNP Med Refill 05/15/2025 10:00 AM EDT [facility] [address] [address] Collins Reyes MD Bloating (Primary Dx); Drug-induced constipation; Concern about diabetes mellitus without diagnosis 05/15/2025 Travel 05/14/2025 [facility] [address] [place] [address] Roxana Gotti DO Epigastric pain 05/12/2025 9:20 AM EDT [facility] [address] [place] [address] Elda Love MD Chronic nonintractable headache, unspecified headache type 05/12/2025 Travel 05/08/2025 Telephone [facility] MEDICINE [address] [place] [address] Haily Robb FNP Referral from Last 3 Months Immunizations Immunization [...] Description 08/10/2025 1:00 PM EST Office Visit [facility] MEDICINE [address] [place] [address] Sanam Noland MD [address] [place] [address] Health Maintenance Due Date Last Done Comments CT Colonography 1970 Colonoscopy 1968 Colorectal Cancer Screening 1968 FIT DNA/Cologuard 1968 FIT 1968 FOBT 1968 Sigmoidoscopy 1968 Hepatitis A Vaccines (1 of 2 - Risk 2-dose series) 1987 RSV Patients and Patients Aged 60 years or older (1 - Risk 50-74 years 1-dose series) 2018 Hepatitis B Vaccines (2 of 2 [...] (2 - Td or Tdap) 06/10/2035 06/10/2025 HIV Screening Completed 03/22/2023, 03/02/2023, 05/05/2021, Additional [...] Procedure Name Priority Date/Time Associated Diagnosis Comments DRUG MONITOR, PANEL 1, SCREEN, URINE Routine 07/14/2025 8:44 PM EST URINALYSIS, COMPLETE, WITH REFLEX TO CULTURE Routine 07/14/2025 8:[address] HEAD WO CONTRAST Routine 07/14/2025 8 :38 PM EST XR CHEST 2 VIEWS Routine 07/14/2025 1:12 PM EST ETHANOL Routine 07/14/2025 1:08 PM EST HIGH SENSITIVITY TROPONIN I Routine 07/14/2025 1:08 PM EST COMPREHENSIVE METABOLIC PANEL Routine 07/14/2025 1:08 PM EST PROTHROMBIN TIME-INR Routine 07/14/2025 1:08 PM EST CBC WITH AUTO DIFFERENTIAL Routine 07/14/2025 1:08 PM EST AMB REFERRAL TO PAIN MEDICINE Routine 07/14/2025 Chronic bilateral low back pain without sciatica ECG 12-LEAD Routine 07/10/2025 12:59 PM EST [...] EDT Concern about diabetes mellitus without diagnosis PROPHYLAXIS - ADULT Routine 10/22/2024 1 :00 [...] Relevant to Health Maintenance Results * (ABNORMAL) Urinalysis, Complete, with Reflex to Culture (07/14/2025 8:44 PM EST) Pathologist [facility] Color Urine Yellow [facility] Appearance Urine Clear [facility] PH 6.5 5.0 - 9.0 [facility] Glucose Urine UA Negative Negative mg/dL [facility] Urine Blood Negative Negative [facility] Specific [place] - Urine 1.020 1.005 - 1.025 [facility] Urine Protein Trace Neg-Trace mg/dL [facility] Urine Ketones Trace Negative mg/dL [facility] Nitrite Urine Negative Negative [facility] Leukocyte Esterase Urine Trace(A) Negative [facility] RBC Urine 3-5(A) 0 - 2 /HPF [facility] Urine WBC 0-5 0 - 5 /HPF [facility] Urine Squamous Epithelial Cell 0-2 0 - 2 /HPF [facility] Urine Bacteria None Seen None Seen [facility] Hyaline Casts, Urine 0-2 0 - 2 /LPF [facility] 07/14/2025 8:44 PM EST 07/14/2025 8:53 PM EST Narrative [facility] - 07/14/2025 9:06 PM EST [id number], Clean Catch us Generic External Data Provider LAB URINE ORDERAB LES Final Result [facility] [address] [place] [address] [phone] * (ABNORMAL) Drug Monitoring, Panel 1, Screen, Urine (07/14/2025 8:44 PM EST) Opiate Screen Urine Not Detected Not Detect [facility] Comment:Opiate cut-off is 30 0 ng/mL.Positive results are unconfirmed and should not be used fornon-medical purposes. Barbiturates, Urine Not Detected Not Detect [facility] Comment:Barbiturate cut-off is 200 ng/mL.Positive results are unconfirmed and should not be used fornon-medical purposes. Phencyclidine Screen Urine Not Detected Not Detect [facility] Comment:Phencyclidine cut-of f is 25 ng/mL.Positive results are unconfirmed and should not be used fornon-medical purposes. Amphetamine Screen Urine Not Detected Not Detect [facility] Comment:Amphetamine cut-off is 1000 ng/mL.Positive results are unconfirmed and should not be used fornon-medical purposes. Benzodiazepines Screen Urine Not Detected Not Detect [facility] Comment:Benzodiazepine cut-o ff is 200 ng/mL.Positive results are unconfirmed and should not be used fornon-medical purposes. Cocaine Screen Urine Not Detected Not Detect [facility] Comment:Cocaine cut-off is 3 00 ng/mL.Positive results are unconfirmed and should not be used fornon-medical purposes. Cannabinoid Screen Urine Not Detected Not Detect [facility] Comment:Cannabinoid cut-off is 50 ng/mL.Positive results are unconfirmed and should not be used fornon-medical purposes. Methadone Screen, Urine Positive(A) Not Detect ng/mL [facility] Comment:Methadone cut-off is 300 ng/mL.Positive results are unconfirmed and should not be used fornon-medical purposes. FENTANYL URINE Not Detected Not Detect [facility] Comment:Fentanyl cut-off is 1 ng/mL.Positive results are unconfirmed and should not be used fornon-medical purposes. Oxycodone Urine Screen Not Detected Not Detect ng/mL [facility] Comment:Oxycodone cut-off is 100 ng/mL.Positive results are unconfirmed and should not be used fornon-medical purposes. Buprenorphine Screen Not Detected Not Detect ng/mL [facility] Comment:Buprenorphine cut-of f is 5 ng/mL.Positive results are unconfirmed and should not be used fornon-medical purposes. 07/14/2025 8:44 PM EST 07/14/2025 8:53 PM EST us Generic External Data Provider LAB URINE ORDERAB LES Final Result Performing Organization Address City/State/[facility] Co de Phone Number [facility] [address] [place] [phone] * CT Head w/o Contrast (07/14/2025 8:38 PM EST) Anatomical Region Laterality Modality Head, Neck Computed Tomogra phy 07/14/2025 8:38 PM EST Narrative 07/14/2025 8:40 PM EST [address] [address] [address] Scan Report Signed Patient: John Fitzpatrick MR#: [id number] : 1970 Acct:[id number] Age/Sex: 55 / M ADM Date: 07/14/25 Loc: HO.ED Attending Dr: Ordering Physician: Brian Ayala MD Date of Service: 07/14/25 Procedure(s): CT head/brain wo IV con Accession Number(s): [id number] cc: Brian Ayala MD; [facility] Report Number: [id number]: Total DLP = 731.00 mGy-cm Reason for Exam: altered mental status CLINICAL HISTORY: altered mental status CT head without contrast Comparison: 04/29/2025 Findings: No intracranial mass, midline shift, hydrocephalus, or acute hemorrhage. No CT evidence of acute ischemia. Visualized paranasal sinuses and mastoid air cells normal. Orbits unremarkable. No skull fracture Impression: 1. No acute intracranial abnormalities. This document has been electronically signed by: Shalom Dickson MD on 07/14/2025 20:38:51 Dictated By: Shalom Dickson MD Signed By: <Electronically signed by Shalom Dickson MD in OV> 07/14/252038 DD/ 37 TD/TT: 07/14/252037 Dairy Technician: Procedure Note Donotuseinterpreter, Image - 07/14/[address] [address] [address] Scan Report Signed Patient: John Fitzpatrick [facility]#: [id number] : 1970Acct:[id number] Age/Sex: 55 / MADM Date: 07/14/25 Loc: HO.ED Attending Dr: Ordering Physician: Brian Ayala MD Date of Service: 07/14/25 Procedure(s): CT head/brain wo IV con Accession Number(s): [id number] cc: Brian Ayala MD; [facility] Report Number: [id number]: Total DLP = 731.00 mGy-cm Reason for Exam: altered mental status CLINICAL HISTORY: altered mental status CT head without contrast Comparison: 04/29/2025 Findings: No intracranial mass, midline shift, hydrocephalus, or acute hemorrhage. No CT evidence of acute ischemia. Visualized paranasal sinuses and mastoid air cells normal. Orbits unremarkable. No skull fracture Impression: 1. No acute intracranial abnormalities. This document has been electronically signed by: Shalom Dickson MD on 07/14/2025 20:38:51 Dictated By: Shalom Dickson MD Signed By: <Electronically signed by Shalom Dickson MD in OV> 07/14/252038 DD/ 37 TD/TT: 07/14/252037 Dairy Technician: [facility] External Provider IMG CT PROCEDURES Final Result * XR Chest 2 Views (07/14/2025 1:12 PM EST) Only the most recent of3 resultswithin the time period is included. Anatomical Region Laterality Modality Chest Radiographic Cecelia ging 07/14/2025 1:12 PM EST Narrative 07/14/2025 1:21 PM EST [address] [address] XRay Report Signed Patient: John Fitzpatrick MR#: [id number] : 1970 Acct:[id number] Age/Sex: 55 / M ADM Date: 07/14/25 Loc: HO.ED Attending Dr: Ordering Physician: Carlene Orellana NP Date of Service: 07/14/25 Procedure(s): XR chest 2V Accession Number(s): [id number] cc: Carlene Orellana NP; [facility] Reason for Exam: chest pain EXAMINATION: [...] by: Rob Summers MD 07/14/2025 01:17 PM [facility] Dictated By: Rob Summers MD Signed By: <Electronically signed by Rob Summers MD in OV> 07/14/25 1317 DD/ 1312 TD/TT: 07/14/25 1315 Dairy Technician: Procedure Note Donotuseinterpreter, Image - 07/14/2025 [place] [address] XRay Report Signed Patient: John Fitzpatrick [facility]#: [id number] : 1970Acct:[id number] Age/Sex: 55 / MADM Date: 07/14/25 Loc: .ED Attending Dr: Ordering Physician: Carlene Orellana NP Date of Service: 07/14/25 Procedure(s): XR chest 2V Accession Number(s): [id number] cc: Carlene Orellana NP; [facility] Reason for Exam: chest pain EXAMINATION: [...] 07/14/25 1317 DD/ 1312 TD/TT: 07/14/25 1315 Dairy Technician: BINA [facility] External Provider IMG XR PROCEDURES Edited Result - Final * High Sensitivity Troponin I (07/14/2025 1:08 PM EST) Only the most recent of5 resultswithin the time period is included. Pathologist [facility] TROPONIN I HIGH SENSITIVITY 3.7 <3.5 - 35.0 ng/L [facility] Comment:The [place] high sens itivity Troponin-I results should beused in conjunction with other diagnostic information suchas ECG, clinical observations and information, and patientsymptoms to aid in the diagnosis of [place]. 07/14/2025 1:08 PM EST 07/14/2025 1:12 PM EST Generic External Data Provider LAB BLOOD ORDERAB LES Final Result Performing Organization Address [facility]/ZIP Co de Phone Number [facility] [address] [place] [phone] * Ethanol (07/14/2025 1:08 PM EST) ETHANOL (MG/DL) IN SER/PLAS <10 mg/dL [facility] Comment:Serum/plasma ethanol results are to be used formedical/treatment purposes only. 07/14/2025 1:08 PM EST 07/14/2025 1:12 PM EST Generic External Data Provider LAB BLOOD ORDERAB LES Final Result [facility] [address] [place] [address] [phone] * (ABNORMAL) CBC auto differential (07/14/2025 1:08 PM EST) Only the most recent of5 resultswithin the time period is included. White Blood Count 5.3 4.8 - 10.8 X10*3/uL [facility] Red Blood Count 4.43(L) 4.60 - 5.80 X10*6/uL [facility] Hemoglobin 14.5 14.0 - 18.0 g/dl [facility] Hematocrit 41.8(L) 42.0 - 52.0 % [facility] Mean Corpuscular Volume 94.4 80.0 - 98.0 fL [facility] Mean Corpuscular Hemoglobin 32.7 27.0 - 33.0 pg [facility] Mean Corpuscular HGB Conc 34.7 31.0 - 36.0 g/dl [facility] Red Cell Distribution Width 11.5 11.0 - 16.0 % [facility] Platelet Count 206 160 - 400 X10*3/uL [facility] Mean Platelet Volume 10.3 9.4 - 12.4 fL [facility] Neutrophils Percent Auto 77.5(H) 45 - 73 % [facility] Imm Gran Pct Auto 0.2 0.0 - 0.4 % [facility] Lymphocytes Percent Auto 14.3(L) 20 - 40 % [facility] Monocytes Percent Auto 7.2 2 - 11 % [facility] Eosinophils Percent Auto 0.2 0 - 4 % [facility] Basophils Percent Auto 0.6 0 - 2 % [facility] NRBC Pct Auto 0.0 0.0 - 0.2 /100WBC [facility] Neutrophils Absolute Auto 4.1 2.0 - 8.3 x10*3/uL [facility] Imm Gran Abs Auto 0.01 0.00 - 0.03 X10*3/uL [facility] Lymphocytes Absolute Auto 0.8(L) 1.2 - 4.9 X10*3/uL [facility] Monocytes Absolute Auto 0.4 0.1 - 1.2 X10*3/uL [facility] Eosinophils Absolute Auto 0.0 0.0 - 0.4 X10*3/uL [facility] Basophils Absolute Auto 0.0 0.0 - 0.2 X10*3/uL [facility] NRBC Abs Auto 0.000 0.0 - 0.012 X10*3/uL [facility] 07/14/2025 1:08 PM EST 07/14/2025 1:12 PM EST Generic External Data Provider LAB BLOOD ORDERAB LES Final Result Performing Organization Address [facility] Co de Phone Number [facility] [address] [place] [phone] * Prothrombin Time-INR (07/14/2025 1:08 PM EST) Only the most recent of2 resultswithin the time period is included. Prothrombin Time 12.8 11.2 - 13.5 SEC [facility] INTERNATIONAL NORM RATIO 1.0 0.9 - 1.1 [facility] Comment:INTERNATIONAL NORMAL IZED RATIO [...] 1:08 PM EST 07/14/2025 1:12 PM EST [employer] External Data Provider LAB BLOOD ORDERAB LES Final Result Performing Organization Address [facility] Co de Phone Number [facility] [address] [place] [phone] * (ABNORMAL) Comprehensive Metabolic Panel (07/14/2025 1:08 PM EST) Only the most recent of3 resultswithin the time period is included. Sodium 140 135 - 145 mmol/L [facility] Potassium 3.4 3.3 - 5.1 mmol/L [facility] Chloride 104 96 - 108 mmol/L [facility] Carbon Dioxide 27 22 - 29 mmol/L [facility] Anion Gap 12 12 - 20 [facility] Urea Nitrogen (BUN) 16 9 - 16 mg/dL [facility] Creatinine, Serum 0.87 0.5 - 1.4 mg/dL [facility] Creatinine Clr Calc Pharmacy 79.3 [facility] Comment:eGFR (calculated fro m the MDRD study equation) and eCrCl(calculated from the Cockcroft-Gault equation) are based ondifferent parameters and may not yield comparable results.If eCrCl result is absurd, please check patient'sheight/weight. Estimated Glomerular Filt Rate >60 [facility] Comment:Chronic Kidney Disea se: Estimated GFR < 60 mL/min/1.55y3Jgbbij Kidney Disease: Estimated GFR < 15 mL/min/1.73m2 Glucose 127(H) 60 - 115 mg/dL [facility] Calcium 9.3 8.4 - 10.2 mg/dL [facility] Bilirubin, Total 1.5(H) 0.0 - 1.0 mg/dL [facility] Aspartate Amino Transferase 25 5 - 37 U/L [facility] Alanine Aminotransferase 27 0 - 40 U/L [facility] Total Protein 7.7 6.5 - 8.0 g/dL [facility] Albumin Level 5.0 3.5 - 5.0 g/dL [facility] Alkaline Phosphatase 45 39 - 117 U/L [facility] 07/14/2025 1:08 PM EST 07/14/2025 1:12 PM EST us Generic External Data Provider LAB BLOOD ORDERAB LES Final Result [facility] [address] [place] [address] [phone] * Referral to Pain Medicine (07/14/2025) us Sanam Peacock MD OUTPATIENT REFERRAL O RDERABLES Final Result * ECG 12 lead (07/10/2025 12:59 PM EST) us Hoa Dueñas NP ECG ORDERABLES Final Result * Influenza A B2 ID NOW (Lemon) (07/09/2025 12:11 PM EST) Only the most recent of2 resultswithin the time period is included. IDNOW SERIAL# [id number] [facility] Influenza A Negative Negative [facility] Influenza B2 Negative Negative [facility] Influenza A B2 Note See Note [facility] Comment:The Lemon ID NOW [...] LAB MICROBIOLOGY - GENERAL ORDERABLES Final Result [facility] [address] [place] [address] [phone] * COVID-19 ID NOW (LEMON) (07/09/2025 12:11 PM EST) Only the most recent of3 resultswithin the time period is included. IDNOW SERIAL# [id number] [facility] COVID-19 TEST Negative [...] infection with other viruses.Testing facilities within the [facility] and [facility] are required to report all positive [...] use by authorized laboratories.Testing performed on the wufoo ID NOW utilizing NAAT. 07/09/2025 12:1 1 PM EST 07/09/2025 12:15 PM EST us Generic External Data Provider LAB MOLECULAR KATIUSKA GNOSTICS ORDERABLES Final Result [facility] [address] [place] [phone] * NT-proBNP (07/09/2025 12:11 PM EST) NT-proBNP <15.8 <300 pg/mL [facility] Comment:Reference Range:Age Group (years) NT-proBNP (pg/ml) InterpretationAll <300 Negative: HF unlikelyFor patients presenting to the ED with clinical suspicion ofnew onset or worsening HF, see below:18 to <50 >299.9 to <450.0 Grayzone: [id number] to 75 >299.9 to <900.0 other causes of>75 >299.9 to <1800.0 NT-proBNP [id number] to <50 >449.9 Positive: HF [id number] >899.9>75 >1799.9Note: Elevated NT-proBNP levels should be interpreted inthe context of other clinical information. 07/09/2025 12:1 1 PM EST 07/09/2025 12:15 PM EST us Generic External Data Provider LAB BLOOD ORDERAB LES Final Result Performing Organization Address [facility] Co de Phone Number [facility] [address] [place] [phone] * (ABNORMAL) Urinalysis Complete (07/09/2025 11:30 AM EST) Color Urine Yellow [facility] Appearance Urine Clear [facility] PH 7.0 5.0 - 9.0 [facility] Glucose Urine UA Negative Negative mg/dL [facility] Urine Blood Negative Negative [facility] Specific [place] - Urine >=1.030(H) 1.005 - 1.025 [facility] Urine Protein Trace Neg-Trace mg/dL [facility] Urine Ketones Trace Negative mg/dL [facility] Nitrite Urine Negative Negative [facility] Leukocyte Esterase Urine Negative Negative [facility] RBC Urine 0-2 0 - 2 /HPF [facility] Urine WBC 0-5 0 - 5 /HPF [facility] Urine Squamous Epithelial Cell 0-2 0 - 2 /HPF [facility] CALCIUM OXALATE CRYSTAL, UR Present [facility] Urine Bacteria None Seen None Seen [facility] Hyaline Casts, Urine 0-2 0 - 2 /LPF [facility] 07/09/2025 11:3 0 AM EST 07/09/2025 12:25 PM EST us Generic External Data Provider LAB URINE ORDERAB LES Final Result Performing Organization Address [facility]/ZIP Co de Phone Number [facility] [address] [place] [phone] * Culture, Urine, Routine (07/09/2025 11:30 AM EST) Urine Urine specimen obtained by clean catch procedure / Unknown 07/09/2025 11:30 AM EST 07/09/2025 12:25 PM EST Comment:UACC Narrative [facility] - 07/10/2025 10:56 AM EST Urine Culture No growth. Specimen Source: Urine clean catch us Generic External Data Provider LAB MICROBIOLOGY - GENERAL ORDERABLES Final Result [facility] [address] [place] [address] [phone] * Chlamydia/Trichomonas/Neisseria gonorrhoeae, PCR, Urine (07/09/2025 10:00 AM EST) CT PCR, Urine NOT DETECTED Not Detect. [facility] Comment:A not detected test [...] NG PCR, Urine NOT DETECTED Not Detect. [facility] Comment:A not detected test [...] ORDERAB LES Final Result Performing Organization Address [facility] Co de Phone Number [facility] [address] [place] [phone] * Lipase (07/05/2025 3:10 PM EST) Only the most recent of2 resultswithin the time period is included. Lipase 16 8 - 78 U/L [facility] 07/05/2025 3:10 PM EST 07/05/2025 3:28 PM EST Generic External Data Provider LAB BLOOD ORDERAB LES Final Result Performing Organization Address [facility] de Phone Number [facility] [address] [place] [phone] * (ABNORMAL) Hepatic Function Panel (07/05/2025 3:10 PM EST) Bilirubin, Total 1.3(H) 0.0 - 1.0 mg/dL [facility] Bilirubin, Direct 0.5 0.0 - 0.5 mg/dL [facility] Aspartate Amino Transferase 23 5 - 37 U/L [facility] Alanine Aminotransferase 20 0 - 40 U/L [facility] Total Protein 7.2 6.5 - 8.0 g/dL [facility] Albumin Level 4.8 3.5 - 5.0 g/dL [facility] Alkaline Phosphatase 47 39 - 117 U/L [facility] 07/05/2025 3:10 PM EST 07/05/2025 3:28 PM EST Generic External Data Provider LAB BLOOD ORDERAB LES Final Result Performing Organization Address [facility]/ZIP Co de Phone Number [facility] [address] [place] [address] [phone] * (ABNORMAL) Basic Metabolic Panel (07/05/2025 3:10 PM EST) Only the most recent of2 resultswithin the time period is included. Sodium 140 135 - 145 mmol/L [facility] Potassium 3.5 3.3 - 5.1 mmol/L [facility] Chloride 102 96 - 108 mmol/L [facility] Carbon Dioxide 27 22 - 29 mmol/L [facility] Anion Gap 15 12 - 20 [facility] Urea Nitrogen (BUN) 10 9 - 16 mg/dL [facility] Creatinine, Serum 0.83 0.5 - 1.4 mg/dL [facility] Creatinine Clr Calc Pharmacy 83.1 [facility] Comment:eGFR (calculated fro m the MDRD study equation) and eCrCl(calculated from the Cockcroft-Gault equation) are based ondifferent parameters and may not yield comparable results.If eCrCl result is absurd, please check patient'sheight/weight. Estimated Glomerular Filt Rate >60 [facility] Comment:Chronic Kidney Disea se: Estimated GFR < 60 mL/min/1.53h6Wpptev Kidney Disease: Estimated GFR < 15 mL/min/1.73m2 Glucose 139(H) 60 - 115 mg/dL [facility] Calcium 9.0 8.4 - 10.2 mg/dL [facility] 07/05/2025 3:10 PM EST 07/05/2025 3:28 PM EST Generic External Data Provider LAB BLOOD ORDERAB LES Final Result Performing Organization Address [facility]/ZIP Co de Phone Number [facility] [address] [place] [phone] * US Abdomen Complete (07/03/2025 9:12 PM EDT) Anatomical Region Laterality Modality Abdomen Ultrasound 07/03/2025 9:12 PM EDT Narrative 07/03/2025 9:14 PM EDT [address] [address] Ultrasound Report Signed Patient: John Fitzpatrick MR#: [id number] : 1970 Acct:[id number] Age/Sex: 55 / M ADM Date: 07/03/25 Loc: HO.US Attending Dr: Roxana Gotti DO Ordering Physician: Roxana Gotti DO Date of Service: 07/03/25 Procedure(s): US abdomen complete Accession Number(s): [id number] cc: Roxana Gotti DO; [facility] Reason for Exam: epigastric pain CLINICAL [...] in OV> 07/03/252112 DD/ 11 TD/TT: 07/03/252111 Dairy Technician: Procedure Note Donotuseinterpreter, Image - 07/03/2025 [place] [address] Ultrasound Report Signed Patient: John Fitzpatrick AMR#: [id number] : 1970Acct:[id number] Age/Sex: 55 / MADM Date: 07/03/25 Loc: HO.US Attending Dr: Roxana Gotti DO Ordering Physician: Roxana Gotti DO Date of Service: 07/03/25 Procedure(s): US abdomen complete Accession Number(s): [id number] cc: Roxana Gotti DO; [facility] Reason for Exam: epigastric pain CLINICAL [...] in OV> 07/03/252112 DD/ 11 TD/TT: 07/03/252111 Dairy Technician: us Roxana Gotti DO IMG US PROCEDURES Edited Res ult - Final * XR Chest 1 View (07/02/2025 3:55 PM EDT) Anatomical Region Laterality Modality Chest Radiographic Cecelia ging 07/02/2025 3:55 PM EDT Narrative 07/02/2025 4:06 PM EDT [place] [address] XRay Report Signed Patient: John Fitzpatrick MR#: [id number] : 1970 Acct:[id number] Age/Sex: 55 / M ADM Date: 07/02/25 Loc: .ED Attending Dr: Ordering Physician: Rah Dhaliwal Date of Service: 07/02/25 Procedure(s): XR chest 1V Accession Number(s): [id number] cc: Rah Dhaliwal; [facility] Reason for Exam: Couging. pnuemonia? EXAMINATION: [...] 07/02/25 1603 DD/ 1555 TD/TT: 07/02/25 155 Dairy Technician: LUIS ANTONIO Procedure Note Donotuseinterpreter, Image - 07/02/[address] [address] XRay Report Signed Patient: John Fitzpatrick AMR#: [id number] : 1970Acct:[id number] Age/Sex: 55 / MADM Date: 07/02/25 Loc: HO.ED Attending Dr: Ordering Physician: Rah Dhaliwal Date of Service: 07/02/25 Procedure(s): XR chest 1V Accession Number(s): [id number] cc: Rah Dhaliwal; [facility] Reason for Exam: Couging. pnuemonia? EXAMINATION: [...] OV> 07/02/25 1603 DD/ 1555 TD/TT: 07/02/251556 Dairy Technician: LUIS ANTONIO us [facility] External Provider IMG XR PROCEDURES Final Result * TSH W/Reflex to FT4 (06/22/2025 2:19 PM EDT) TSH reflex Free T4 1.82 0.32 - 4.0 uIU/mL [facility] Blood Venous blood specimen / Unknown 06/22/2025 2:19 PM EDT 06/22/2025 3:58 PM EDT us Sanam Peacock MD LAB BLOOD ORDERABLES Final Result [facility] [address] [place] [phone] * XR KUB and Upright 2 Views (06/13/2025 1:48 PM EDT) Anatomical Region Laterality Modality Radiographic Cecelia ging 06/13/2025 1:48 PM EDT Narrative 06/13/2025 1:50 PM EDT [address] [address] XRay Report Signed Patient: John Fitzpatrick MR#: [id number] : 1970 Acct:[id number] Age/Sex: 55 / M ADM Date: 06/13/25 Loc: .ED Attending Dr: Ordering Physician: Fay Rosales Date of Service: 06/13/25 Procedure(s): XR KUB Accession Number(s): [id number] cc: Fay Rosales; [facility] Reason for Exam: constipation CLINICAL HISTORY: [...] 06/13/25 1349 DD/ 1348 TD/TT: 06/13/25 1348 Dairy Technician: Procedure Note Donotuseinterpreter, Image - 06/13/[address] [address] XRay Report Signed Patient: John Fitzpatrick AMR#: [id number] : 1970Acct:[id number] Age/Sex: 55 / MADM Date: 06/13/25 Loc: HO.ED Attending Dr: Ordering Physician: Fay Rosales Date of Service: 06/13/25 Procedure(s): XR KUB Accession Number(s): [id number] cc: Fay Rosales; [facility] Reason for Exam: constipation CLINICAL HISTORY: [...] 06/13/25 1349 DD/ 1348 TD/TT: 06/13/25 1348 Dairy Technician: [facility] External Provider IMG XR PROCEDURES Final Result * Urinalysis w/reflex microscopic (06/13/2025 12:33 PM EDT) Color Urine Yellow [facility] Appearance Urine Clear [facility] PH 8.5 5.0 - 9.0 [facility] Glucose Urine UA Negative Negative mg/dL [facility] Urine Blood Negative Negative [facility] Specific [place] - Urine 1.020 1.005 - 1.025 [facility] Urine Protein Negative Neg-Trace mg/dL [facility] Urine Ketones Negative Negative mg/dL [facility] Nitrite Urine Negative Negative [facility] Leukocyte Esterase Urine Negative Negative [facility] 06/13/2025 12:3 3 PM EDT 06/13/2025 12:37 PM EDT Narrative [facility] - 06/13/2025 1:25 PM EDT [id number], Clean Catch Generic External Data Provider LAB URINE ORDERAB LES Final Result [facility] [address] [place] [phone] * Magnesium (06/13/2025 12:28 PM EDT) Pathologist [facility] Magnesium 1.9 1.6 - 2.6 mg/dL [facility] 06/13/2025 12:2 8 PM EDT 06/13/2025 12:31 PM EDT Generic External Data Provider LAB BLOOD ORDERAB LES Final Result Performing Organization Address [facility]/ZIP Co de Phone Number [facility] [address] [place] [phone] * (ABNORMAL) POCT Hgb A1c (05/15/2025 10:34 AM EDT) [facility] Hemoglobin A1C 5.8(A) 4.0 - 5.7 % QC Media Lot # [id number] Lot# Expiration Date ,627 Blood 05/15/2025 10:3 4 AM EDT us Collins Reyes MD POINT OF CARE TEST ENTER/EDIT OR DERABLES Final Result * POCT Glucose (05/15/2025 10:34 AM EDT) Pathologist [facility] Glucose Blood, POC 144 60 - 200 mg/dL [employer] Media Lot # [id number] Lot# Expiration Date 101,225 Blood Capillary blood specimen / Unknown 05/15/2025 10:34 AM EDT Collins Name POINT OF CARE TEST ENTER/EDIT OR DERABLES Final Result * Lipid Panel, Standard (03/19/2024 9:34 AM EDT) Pathologist [facility] Triglycerides 66 <150 mg/dL [facility] Comment:Desirable Triglyceri de: less than 150 mg/dLBorderline High Triglyceride 150-199 mg/dLHigh Triglyceride: 200-499 mg/dLVery High Triglyceride: greater than or equal to 5OO mg/dL Cholesterol 112 <200 mg/dL [facility] Comment:Desirable Cholestero l: less than 200 mg/dLBorderline High Cholesterol: 200-239 mg/dLHigh Cholesterol: greater than 239 mg/dL LDL Cholesterol Calculated 58 <100 mg/dL [facility] Comment:Desirable LDL: less than 100 mg/dLNear Optimal/Above Optimal LDL: 110- 129 mg/dLBorderline High LDL: 130-159 mg/dLHigh LDL: 160-189 mg/dLVery High LDL: greater than or equal to 190 mg/dL HDL Cholesterol 41 >40 mg/dL [facility] Comment:Desirable HDL: great er than 40 mg/dL Note: This HDL assay may give artificially low results in patients with liver disease. Blood Venous blood specimen / Unknown 03/19/2024 9:34 AM EDT 03/19/2024 11:12 AM EDT us Roxana Gotti DO LAB BLOOD ORDERABLES Final R esult [facility] [address] [place] [phone] * HIV-1 RNA, Quantitative, Real-Time PCR (03/22/2023 11:53 AM EDT) HIV RNA PCR Qn Copies NOT DETECTED NOT DETECTED copies/mL [facility] HIV RNA PCR Qn Log Copies NOT DETECTED NOT DETECTED [facility] Comment:Result Units: Log co pies/mLThis test was performed using Real-Time Polymerase ChainReaction.Reportable Range: 20 copies/mL to 10,000,000 copies/mL(1.30 log copies/mL to 7.00 log copies/mL).THIS TEST WAS PERFORMED AT:[facility] [place] [phone] GONG MD Blood Venous blood specimen / Unknown 03/22/2023 11:53 AM EDT 03/22/2023 1:32 PM EDT us Jessica Guillen ENGINEER [employer]HA[employer] LAB BLOOD ORDERABLES Final Res ult [facility] [address] [place] [address] [phone] from Last 3 Months or Most Recently Relevant to Health Maintenance Insurance [facility] C3 DENTAL-[employer] [facility] MEDICAID STAND ADULT Care Teams [employer] Sales Representative Relationship Specialty Start Date End Date [place] Haily [facility] [address] [place] [address] PCP - General Family Medicine 05/01/22 Gregoria Brooks RN [address] [place] [phone] Registered Nurse Family Medicine 06/15/25 Latricia Houser 06/16/25
--- OUTSIDE RECORDS SUMMARY | 2025-08-05 13:43 | XMS_ITS | Encounter Summary ---
Author Organization [employer] Address [address] [place] [address] Care Team Providers Care Assistant Statistician Name Role Phone Clarisse [facility] Primary Care Provider [phone] Gregoria Brooks RN Unavailable [phone] Latricia Houser Unavailable Reason for Visit * Reason Onset Date Comments Medication Question 08/24/2022 Encounter Details Date Type Department Care Team (Late st Contact Info) Description 08/24/2022 Telephone [facility] [address] [place], [place] [phone] [place] [address] [place], [place] [phone] Medication Question Social History Tobacco Use Types [...] requesting a call back. States went to brain picker his medication and they gave him vitamin C and he would like to know if he should be taking them again . Please call to clarify. documented in this encounter Plan of Treatment Upcoming Encounters Date Type Department Care Team (Late st Contact Info) Description 08/10/2025 1:00 PM EST Office Visit [facility] [address] [place] [phone] Sanam Noland MD [address] [place], [place] [phone] documented as of this encounter Visit Diagnoses Not on filedocumented in this encounter Care Teams Assistant Statistician Relationship Specialty Start Date End Date [place] [address] [place] [phone] PCP - General Family Medicine 05/01/22 Gregoria Brooks RN [address] [place] [address] [phone] Registered Nurse Family Medicine 06/15/25 Latricia Houser 06/16/25 documented as of this encounter
--- OUTSIDE RECORDS SUMMARY | 2025-08-05 13:44 | XMS_ITS | Encounter Summary ---
Author Organization [employer] Address [address] [facility] 7t [place] [address] Care Team Providers Care Grain Trader Name Role Phone Morris [facility] Primary Care Provider [phone] Gregoria Brooks RN Unavailable [phone] Latricia Houser Unavailable Reason for Visit * Reason Comments Care Management C3CM- FOLLOW UP CALL Encounter Details Date Type Department Care Team (Late st Contact Info) Description 08/03/2025 Patient Outreach [facility] MEDICINE [address] [place], [place] [phone] Clarisse Haily [facility] [address] [place] [address] Care Management (C3CM- FOLLOW UP CALL/) Social [...] Progress Notes * Gregoria Brooks RN - 08/03/2025 9:24 AM EST CM Gregoria Brooks RN placed outbound call to patient. Patient's name, and address confirmed. Patient states is doing well since most recent admission to [facility] Psychiatric unit. Patient states was able to excelsior picker all new prescribed medications. CM attempted to complete medication reconciliation but patient was not near medication or medication list from medication boxes to review at time of call. Per Discharge notes Discharge Medications: New fluvoxamine 50 mg Tablet 50 mg PO BEDTIME 30 Days Qty: 30 0RF haloperidol 5 mg Tablet 5 mg PO BEDTIME 30 Days Qty: 30 0RF haloperidol 2 mg tablet 2 mg PO DAILY 30 Days Qty: 30 0RF quetiapine 100 mg Tablet 100 mg PO BEDTIME 30 Days Qty: 30 0RF diphenhydramine HCl 50 mg capsule 50 mg PO BID PRN (Reason: extrapyramidal effects/symptoms) 7 Days Qty: 14 0RF Discontinued fluticasone propionate [Flonase Allergy Relief] 50 mcg/actuation spray,suspension 1 spray intranasal BID Qty: 16 0RF Rx Instructions: administer into each nostril orsbfmgshh-kiynufvmwjhdv-yivl 50-325-40 mg capsule 1 cap PO DAILY PRN (Reason: pain) Qty: 10 0RF acetaminophen [Tylenol Extra Strength] 500 mg tablet 1,000 mg PO Q8H 10 Days Qty: 60 0RF propranolol 40 mg tablet 40 mg PO Q12H PRN (Reason: anxiety) ipratropium bromide 21 mcg (0.03 %) spray,non-aerosol 1 spray intranasal Q12H polyethylene glycol 3350 17 gram powder in packet 17 g PO DAILY fluvoxamine 25 mg tablet 25 mg PO BEDTIME melatonin 5 mg tablet 5 - 10 mg PO BEDTIME PRN (Reason: insomnia ) Patient states good effect with new medications. CM updated medication list with new medications and discontinued medications based on discharge summary. Pharmacy to reach out for medication reconciliation prior to HDF as well. CM reviewed with patient upcoming appointments with Psychiatry, Therapist and PCP. Dr. Quezada (Psychiatry) [Other] - 08/04/25 3:30 pm Referral Note: TELEHEALTH APPOINTMENT Heather Hale (Therapy) [Other] - 08/10/25 1:15 pm Referral Note: IN OFFICE APPOINTMENT Dr. Mason- 08/10/25 1:00 pm Patient advised that therapist appointment and PCP appointment are the same day. Patient asked if could reach out to therapist to ask about sooner appointment same day or if can be sooner date. Patient provided CM with contact information for therapist Heather Hale [phone]. CM was also trying to make patient aware of upcoming MRI and TB Clinic appointment but patient states was heading out of the home and could not take down these appointment at this time. Patient advised will call on Sunday to remind of PCP appointment and will review medications and other appointments at that time. No further questions or concerns. CM reinforced direct contact information or CHW for any additional questions or concerns. Education provided on Walk-In Urgent Care located in [facility] of [facility]. Patient provided with after-hours line for [facility], , which offer night time triage service and option to transfer to marketing education teacher provider if needed. Patient verbalizes understanding, and able to repeat back to mortgage underwriter. A follow up call will be placed within 10 days, patientagrees with plan. documented in this encounter Miscellaneous Notes * Care Plan - Gregoria Brooks RN - 08/03/2025 9:24 AM EST Active Behavioral Health Support Behavioral Health (Progressing) Start: 06/17/25 Expected End: 09/18/25 Patient will attend all scheduled behavioral health appointments over the next 3 months and take prescribed medication daily as directed, Goal Note Patient states is doing well since most recent admission to [facility] Psychiatric unit. Patient able to excelsior picker and start new medications. Has upcoming appointment with Psychiatry and Therapist. Dr. Quezada (Psychiatry) [Other] - 08/04/25 3:30 pm Referral Note: TELEHEALTH APPOI NTMENT Heather Hale (Therapy) [Other] - 08/10/25 1:15 pm Referral Note: IN OFFICE APPOINTMENT Care Management Care Management (Progressing) Start: 06/17/25 Expected End: 09/18/25 Goal Note CM reviewed current care plan and will continue to provide appointment reminder and assistance withcoordination of appointments as needed. Medication Concerns Improve Medication Adherence (Progressing) Start: 06/17/25 Expected End: 09/18/25 Patient will take all prescribed medications as directed each day and will contact their provider within 48 hours if they experience any side effects or have concerns about their medication. Goal Note CM verified patient was able to excelsior picker prescriptions of psych medications started during admissions. Unable to review discontinued medications as patient not near medication boxes. Improve Medication Management (Progressing) Start: 06/17/25 Expected End: 09/18/25 Goal Note Patient continues to use medication boxes to help with management. Pain Management Manage Pain (Progressing) Start: 06/17/25 Expected End: 09/18/25 Patient will schedule and attend scheduled appointment with pain management provider within the next 3 months to review current pain level and treatment plan, to work on better managing pain. Goal Note CM will follow up at next follow up call. Plan of Care Patient Centered Plan of Care (Progressing) Start: 06/17/25 Expected End: 09/18/25 Over the next 3 months, the patient will meet with my care team at least twice a month to review mycare plan, update any goals achieved, and talk about any new challenges or barriers that might be affecting progress. Goal Note CM reviewed current plan of care with patient. Goal progression documented. SDOH Needs Support SDOH Needs (Progressing) Start: 06/17/25 Expected End: 09/18/25 Within the next 3 months, patient will work with care management team to address two identified social needs housing and transportation, by following through with at least one referral. Goal Note Patient still identifies need for PT-1 for transportation but is still working on address issue. CMto continue to follow up at outreach calls. Self Management Patient understands and has a plan for managing symptoms and knows when to contact physician (Progressing) Start: 06/17/25 Expected End: 09/18/25 For the next 3 months, patient will contact my primary care provider's office within 24-48 hours anytime I notice new or worsening symptoms, to get timely care advice over the phone and avoid complications. Goal Note CM reviewed walk in center hours and reminded of importance of keeping Hospital Discharge Follow upappointment for continuity of care. Patient/caregiver takes an active role in self-managing condition (Progressing) Start: 06/17/25 Expected End: 09/18/25 Goal Note CM made sure patient wrote down appointments that are upcoming. documented in this encounter Plan of Treatment Upcoming Encounters Date Type Department Care Team ([facility] st Contact Info) Description 08/10/2025 1:00 PM EST Office Visit [facility] MEDICINE [address] [place] [address] Sanam Noland MD [address] [place] [address] documented as of this encounter Goals Goal Patient Goal Type Associated Problems Recent Progress Patient-Stated? Author Patient will adhere to medication regimen Mary Peoples documented as of this encounter Visit Diagnoses Not on filedocumented in this encounter Additional Health Concerns Assessment Noted Time PHQ-9 Depression Total Score: 8 06/17/20 25 11:48 AM EDT documented as of this encounter Care Teams Grain Trader Relationship Specialty Start Date End Date Morris [facility] [address] [place] [id number] PCP - General Family Medicine 05/01/22 Gregoria Brooks, CHAGO [address] [place] [address] Registered Nurse Family Medicine 06/15/25 Latricia Houser 06/16/25 documented as of this encounter
--- OUTSIDE RECORDS SUMMARY | 2025-08-05 13:44 | XMS_ITS | Encounter Summary ---
Author Organization [employer] Address [address] [facility] 7t [place] [address] Care Team Providers Care Special Effects Makeup Artist Name Role Phone Clarisse [facility] Primary Care Provider [phone] Gregoria Brooks RN Unavailable [phone] Latricia Houser Unavailable Reason for Visit * Reason Onset Date Comments Nurse Triage 02/16/2023 Encounter Details Date Type Department Care Team (Late st Contact Info) Description 02/16/2023 Telephone [facility] MEDICINE [address] [place], [place] [phone] [place] [facility] 230 [place], [place] [phone] Nurse Triage Social History Tobacco Use Types [...] - 02/23/2023 2:49 PM EDT T/C to [id number] through [employer] interpreters id - [id number] for below message, pt. Verbally agreed and understood. * Telephone Encounter - Angela Whitman LPN - 02/16/2023 2:48 PM EDT Triage call returned to patient via [employer] College Sports Assistant [id number]. Patient called with concerns of Left eye burning and tearing at times with blurred vision. No irritant or object in eye at this time. Patient reports that he was seen some time ago in [facility] and was given order to obtain eye drops for dry eye. He is angry that he had to pay for them out of pocket and that they did not help. Patient requesting specifically a referral and declines appts. in [facility] or with Team providers later in [...] suggested disposition Override Notes: Patient seen in [facility] and was told to use eye drops several months ago. Patient requesting only referral to Scientific Editor. Video visit not offered Positive Triage Question: [...] The caller accepted this outcome Patient speaks macedonian documented in this encounter Plan of Treatment Upcoming Encounters Date Type Department Care Team (Late st Contact Info) Description 08/10/2025 1:00 PM EST Office Visit [facility] MEDICINE [address] [place], [place] [phone] Sanam Noland MD [address] [place] [address] documented as of this encounter Visit Diagnoses Not on filedocumented in this encounter Additional Health Concerns Assessment Noted Time PHQ-9 Depression Total Score: 0 01/26/20 23 3:38 PM EDT documented as of this encounter Care Teams Special Effects Makeup Artist Relationship Specialty Start Date End Date Haily Robb FNP [address] [place] [address] PCP - General Family Medicine 05/01/22 Gregoria Brooks, CHAGO [address] [place] [address] [phone] Registered Nurse Family Medicine 06/15/25 Latricia Houser 06/16/25 documented as of this encounter
--- OUTSIDE RECORDS SUMMARY | 2025-08-05 13:44 | XMS_ITS | Encounter Summary ---
Author Organization [employer] Address [address] [facility] 7t [place] [address] Care Team Providers Care Cargo Supervisor Name Role Phone Clarisse Haily [facility] Primary Care Provider Gregoria Brooks RN Unavailable [phone] Latricia Houser Unavailable Encounter Details Date Type Department Care Team (Latest Contact Info) Description 06/16/2020 Abstract [facility] CONVERSIONS Dental, Provider, DDS Social [...] Description 08/10/2025 1:00 PM EST Office Visit [facility] MEDICINE [address] [place], [place] [phone] Sanam Noland MD [address] [place], [place] [phone] documented as of this encounter Visit Diagnoses Not on filedocumented in this encounter Care Teams Cargo Supervisor Relationship Specialty Start Date End Date Haily Robb FNP [address] [place], [place] [phone] PCP - General Family Medicine 05/01/22 Gregoria Brooks RN [address] [place] [address] Registered Nurse Family Medicine 06/15/25 Latricia Houser 06/16/25 documented as of this encounter
--- OUTSIDE RECORDS SUMMARY | 2025-08-05 13:44 | XMS_ITS | Encounter Summary ---
Author Organization [employer] Address [address] [facility] 7t [place] [address] Care Team Providers Care Dough Machine Operator Name Role Phone Clarisse [facility] Primary Care Provider [phone] Gregoria Brooks RN Unavailable [phone] Latricia Houser Unavailable Reason for Visit * Reason Onset Date Comments Results 03/16/2023 Encounter Details Date Type Department Care Team (Late st Contact Info) Description 03/16/[address] [facility] MEDICINE [address] [place], [place] [phone] ClarisseHaily [facility] 230 [place], [place] [phone] Results Social History Tobacco Use Types Packs/Day [...] 03/20/2023 4:06 PM EDT Return T/C to [phone] for below message, No answer. LVM to call back on [phone]. * Telephone Encounter - Kelli Boucher - 03/16/2023 2:04 PM EDT Tc from pt requesting a call in regards to results to recent lab orders. Please contact pt at [phone] (Indian speaker) documented in this encounter Plan of Treatment Upcoming Encounters Date Type Department Care Team (Late st Contact Info) Description 08/10/2025 1:00 PM EST Office Visit [facility] MEDICINE [address] [place], [place] [phone] Sanam Noland MD [address] [place], [place] [phone] documented as of this encounter Visit Diagnoses Not on filedocumented in this encounter Additional Health Concerns Assessment Noted Time PHQ-9 Depression Total Score: 0 01/26/20 23 3:38 PM EDT documented as of this encounter Care Teams Dough Machine Operator Relationship Specialty Start Date End Date Clarisse ANETA Johansen [address] [place] [address] PCP - General Family Medicine 05/01/22 Gregoria Brooks RN [address] [place] [address] Registered Nurse Family Medicine 06/15/25 Latricia Houser 06/16/25 documented as of this encounter
--- OUTSIDE RECORDS SUMMARY | 2025-08-05 13:44 | XMS_ITS | Clinical Summary ---
Author Organization [facility] Address [address] [place] [address] Phone Care Team Providers Care Education Paraprofessional Name Role Phone [facility] Primary Care Provider [phone] Medications polyethylene glycol (Golytely) 236-22.74-6.74 -5.86 gram [...] Phone Billing Address Personal/Family Self 1970 [address] [facility] [address] [place] [address] MEDICAID - [place] Care Teams Education Paraprofessional Relationship Specialty Start Date End Date [place] [address] [address] PCP - General 05/20/24
--- OUTSIDE RECORDS SUMMARY | 2025-08-05 13:44 | XMS_ITS | Encounter Summary ---
Author Organization [employer] Address [address] [facility] 7t [place] [address] Care Team Providers Care Rn Concurrent Review Name Role Phone Clarisse Haily BULLET LUBRICATING MACHINE OPERATOR Primary Care Provider Gregoria Brooks RN Unavailable [phone] Latricia Houser Unavailable Reason for Visit * Reason Comments Med Refill Encounter Details Date Type Department Care Team (Late st Contact Info) Description 04/02/2023 Refill [facility] MEDICINE [address] [place], [place] [phone] Juanjose Barton MD [address] [place], [place] [phone] Chronic pruritus Social History Tobacco Use Types [...] 1:00 PM EST Office Visit [facility] MEDICINE [address] [place] [address] Sanam Noland MD [address] [place] [address] documented as of this encounter Visit Diagnoses Diagnosis Chronic pruritus documented in this encounter Additional Health Concerns Assessment Noted Time PHQ-9 Depression Total Score: 0 01/26/20 3:38 PM EDT documented as of this encounter Care Teams Rn Concurrent Review Relationship Specialty Start Date End Date [place] Haily [facility] [address] [place] [address] PCP - General Family Medicine 05/01/22 Gregoria Brooks, CHAGO [address] [place] [address] Registered Nurse Family Medicine 06/15/25 Latricia Houser 06/16/25 documented as of this encounter
--- OUTSIDE RECORDS SUMMARY | 2025-08-05 13:44 | XMS_ITS | Encounter Summary ---
Author Organization [employer] Address [address] [facility] 7t [place] [address] Care Team Providers Care Skid Road Worker Name Role Phone Clarisse [facility] Primary Care Provider [phone] Gregoria Brooks RN Unavailable [phone] Latricia Houser Unavailable Reason for Visit * Reason Onset Date Comments Med Refill 12/13/2023 Encounter Details Date Type Department Care Team (Late st Contact Info) Description 12/13/2023 Telephone [facility] MEDICINE 230 [place], [place] [phone] ClarisseHaily [facility] 230 [place], [place] [phone] Med Refill Social History Tobacco Use Types [...] 10:24 AM EDT Medication was sent to [facility] on 11/09/23 with 2 refills. * Telephone Encounter - Christine Taylor - 12/13/2023 10:19 AM EDT TC from pt requesting medication refill. Medications needing refill : melatonin 5 MG tablet To be sent to: [facility] [place], [place] - [address] [facility] documented in this encounter Plan of Treatment Upcoming Encounters Date Type Department Care Team (Late st Contact Info) Description 08/10/2025 1:00 PM EST Office Visit [facility] MEDICINE [address] [place] [address] Sanam Noland MD [address] [place] [address] documented as of this encounter Visit Diagnoses Not on filedocumented in this encounter Additional Health Concerns Assessment Noted Time PHQ-9 Depression Total Score: 0 08/15/20 23 3:52 PM EST documented as of this encounter Care Teams Skid Road Worker Relationship Specialty Start Date End Date [facility] [address] [place] [address] PCP - General Family Medicine 05/01/22 Gregoria Brooks, CHAGO [address] [place] [address] Registered Nurse Family Medicine 06/15/25 Latricia Houser 06/16/25 documented as of this encounter
--- OUTSIDE RECORDS SUMMARY | 2025-08-05 13:44 | XMS_ITS | Encounter Summary ---
Author Organization [employer] Address [address] [facility] [address] 7t [place] [address] Care Team Providers Care Refrigeration Operator Name Role Phone Clarisse [facility] Primary Care Provider [phone] Gregoria Brooks RN Unavailable [phone] Latricia Houser Unavailable Reason for Visit * Reason Comments Med Refill Encounter Details Date Type Department Care Team (Late st Contact Info) Description 07/30/2025 Refill [facility] MEDICINE 230 [place], [place] [phone] [place] Haily [facility] 230 [place], [place] [phone] Mixed hyperlipidemia Social History Tobacco Use Types Packs/Day Years [...] 08/10/2025 1:00 PM EST Office Visit [facility] MEDICINE 230 [place] [address] Sanam Noland MD [address] [place] [address] documented as of this encounter Goals Goal Patient Goal Type Associated Problems Recent Progress Patient-Stated? Author Patient will adhere to medication regimen General No Mary Moreland documented as of this encounter Visit Diagnoses Diagnosis Mixed hyperlipidemia documented in this encounter Additional Health Concerns Assessment Noted Time PHQ-9 Depression Total Score: 8 06/17/20 11:48 AM EDT documented as of this encounter Care Teams Refrigeration Operator Relationship Specialty Start Date End Date [place] AENTA Johansen [address] [place] [address] PCP - General Family Medicine 05/01/22 Gregoria Brooks RN [address] [place] [address] Registered Nurse Family Medicine 06/15/25 Latricia Houser 06/16/25 documented as of this encounter
--- OUTSIDE RECORDS SUMMARY | 2025-08-05 13:44 | XMS_ITS | Encounter Summary ---
Author Organization [employer] Address [address] [facility] [address] 7[address] [place] [address] Care Team Providers Care Key Maker Name Role Phone Clarisse [facility] Primary Care Provider [phone] Gregoria Brooks RN Unavailable [phone] Latricia Houser Unavailable Reason for Visit * Reason Comments Med Refill Encounter Details Date Type Department Care Team (Late st Contact Info) Description 08/28/2024 Refill [facility] MEDICINE 230 [place], [place] [phone] Noel Haily [facility] 230 [place], [place] [phone] Mixed anxiety and depressive disorder Social History [...] Description 08/10/2025 1:00 PM EST Office Visit [facility] MEDICINE [address] [place] [address] Sanam Noland MD [address] [place] [address] documented as of this encounter Goals Goal [...] documented as of this encounter Care Teams Key Maker Relationship Specialty Start Date End Date Haily Robb FNP [address] [place] [address] PCP - General Family Medicine 05/01/22 Gregoria Brooks RN [address] [place] [address] Registered Nurse Family Medicine 06/15/25 Latricia Houser 06/16/25 documented as of this encounter
--- OUTSIDE RECORDS SUMMARY | 2025-08-05 13:44 | XMS_ITS | Encounter Summary ---
Author Organization [employer] Address [address] [facility] 7t [place] [address] Care Team Providers Care World History Teacher Name Role Phone [place] [facility] Primary Care Provider Gregoria Brooks RN Unavailable [phone] Latricia Houser Unavailable Reason for Visit * Reason Comments Med Refill Encounter Details Date Type Department Care Team (Late st Contact Info) Description 06/03/2025 Refill [facility] 230 [place], [place] [phone] [place] [facility] 230 [place], [place] [phone] Restless leg Social History Tobacco Use Types [...] Description 08/10/2025 1:00 PM EST Office Visit [facility] MEDICINE [address] [place] [address] Sanam Noland MD 230 [place] [address] documented as of this encounter Goals Goal [...] Date End Date Haily Robb FNP 230 [place] [address] PCP - General Family Medicine 05/01/22 Gregoria Brooks RN 230 [place] [address] Registered Nurse Family Medicine 06/15/25 Latricia Houser 06/16/25 documented as of this encounter
--- OUTSIDE RECORDS SUMMARY | 2025-08-05 13:44 | XMS_ITS | Encounter Summary ---
Author Organization [email or web address] Address 75 [facility] 7t [place] [address] Care Team Providers Care Senior Group Manager Name Role Phone Clarisse [facility] Primary Care Provider Gregoria Brooks RN Unavailable [phone] Latricia Houser Unavailable Reason for Visit * Reason Onset Date Comments Medication Question 01/16/2023 Encounter Details Date Type Department Care Team (Late st Contact Info) Description 01/16/2023 Telephone [facility] MEDICINE [address] [place], [place] [phone] [place] [facility] 230 [place], [place] [phone] Medication Question Social History Tobacco Use Types [...] 1:00 PM EST Office Visit [facility] MEDICINE 230 [place], [place] [phone] Sanam Noland MD 230 [place], [place] [phone] documented as of this encounter Visit Diagnoses Not on filedocumented in this encounter Additional Health Concerns Assessment Noted Time PHQ-9 Depression Total Score: 0 11/03/19 10:32 AM EST documented as of this encounter Care Teams Senior Group Manager Relationship Specialty Start Date End Date Haily Robb FNP 230 [place], [place] [phone] PCP - General Family Medicine 05/01/22 Gregoria Brooks, CHAGO [address] [place] [address] [phone] Registered Nurse Family Medicine 06/15/25 Latricia Houser 06/16/25 documented as of this encounter
--- OUTSIDE RECORDS SUMMARY | 2025-08-05 13:44 | XMS_ITS | Encounter Summary ---
Author Organization [employer] Address [address] [facility] [address] 7t [place] [address] Care Team Providers Care E Merchant Name Role Phone [place], [facility] Primary Care Provider Gregoria Brooks RN Unavailable [phone] Latricia Houser Unavailable Reason for Visit * Reason Onset Date Comments Nurse Triage 07/14/2025 Encounter Details Date Type Department Care Team (Late st Contact Info) Description 07/14/2025 Telephone [facility] MEDICINE 230 [place], [place] [phone] [place]Haily [facility] 230 [place], [place] [phone] Nurse Triage Social History Tobacco Use Types [...] AM EST TC placed to pt with [employer] [id number] pt has no Dx of HTN states [...] caller accepted this outcome. Contact pt at [phone] (martiniquais) documented in this encounter Plan of Treatment Upcoming Encounters Date Type Department Care Team (Late st Contact Info) Description 08/10/2025 1:00 PM EST Office Visit [facility] MEDICINE 230 [place] [address] Sanam Noland MD 230 [place] [address] documented as of this encounter Goals Goal Patient Goal Type Associated Problems Recent Progress Patient-Stated? Author Patient will adhere to medication regimen General Mary Chauhan documented as of this encounter Visit Diagnoses Not on filedocumented in this encounter Additional Health Concerns Assessment Noted Time PHQ-9 Depression Total Score: 8 06/17/20 25 11:48 AM EDT documented as of this encounter Care Teams E Merchant Relationship Specialty Start Date End Date Haily Robb FNP 230 [place] [address] PCP - General Family Medicine 05/01/22 Gregoria Brooks RN [address] [place] [address] Registered Nurse Family Medicine 06/15/25 Latricia Houser 06/16/25 documented as of this encounter
--- OUTSIDE RECORDS SUMMARY | 2025-08-05 13:44 | XMS_ITS | Encounter Summary ---
Author Organization [employer] Address 75 [facility] 7t [place] [address] Care Team Providers Care Interactive Multimedia Designer Name Role Phone [place] molina DUMPER Primary Care Provider [phone] Gregoria Brooks RN Unavailable [phone] Latricia Houser Unavailable Reason for Visit * Reason Onset Date Comments Nurse Triage 02/11/2024 Encounter Details Date Type Department Care Team (Late st Contact Info) Description 02/11/2024 Telephone [facility] MEDICINE 230 [place], [place] [phone] [place] FNP [address] [place], [place] [phone] Nurse Triage Social History Tobacco Use Types [...] EDT Triage call returned to patient with [employer] administrative operations coordinator [id number]. Patient reports ongoing issue withleft eye and [...] referred to [facility] Copy Operator. No diagnosis in chart.Advised of [facility] for evaluation today. [...] involuntary movements The caller accepted this outcome Monegasque speaker documented in this encounter Plan of Treatment Upcoming Encounters Date Type Department Care Team (Late st Contact Info) Description 08/10/2025 1:00 PM EST Office Visit [facility] MEDICINE 230 [place] [address] Sanam Noland MD [address] [place] [address] documented as of this encounter Goals Goal Patient Goal Type Associated Problems Recent Progress Patient-Stated? Author Patient will adhere to medication regimen General No Mary Moreland documented as of this encounter Visit Diagnoses Not on filedocumented in this encounter Additional Health Concerns Assessment Noted Time PHQ-9 Depression Total Score: 0 08/15/20 23 3:52 PM EST documented as of this encounter Care Teams Interactive Multimedia Designer Relationship Specialty Start Date End Date Clarisse Haily DUMPER [address] [place] [address] PCP - General Family Medicine 05/01/22 Gregoria Brooks RN [address] [place] [address] Registered Nurse Family Medicine 06/15/25 Latricia Houser 06/16/25 documented as of this encounter
--- OUTSIDE RECORDS SUMMARY | 2025-08-05 13:44 | XMS_ITS | Encounter Summary ---
Author Organization [employer] Address 75 [facility] 7t [place] [address] Care Team Providers Care Test Engineering Technician Name Role Phone Clarisse Haily [facility] Primary Care Provider [phone] Gregoria Brooks RN Unavailable [phone] Latricia Houser Unavailable Encounter Details Date Type Department Care Team (Latest Contact Info) Description 06/01/2022 Abstract [facility] CONVERSIONS Dental, Provider, DDS Social History [...] Description 08/10/2025 1:00 PM EST Office Visit [facility] MEDICINE 230 [place], [place] [phone] Sanam Noland MD 230 [place], [place] [phone] documented as of this encounter Visit Diagnoses Not on filedocumented in this encounter Care Teams Test Engineering Technician Relationship Specialty Start Date End Date Haily Robb FNP 230 [place], [place] [phone] PCP - General Family Medicine 05/01/22 Gregoria Brooks RN [address] [place] [address] Registered Nurse Family Medicine 06/15/25 Latricia Houser 06/16/25 documented as of this encounter
--- OUTSIDE RECORDS SUMMARY | 2025-08-05 13:44 | XMS_ITS | Encounter Summary ---
Author Organization [employer] Address [address] [facility] [address] 7t [place] [address] Care Team Providers Care Rigger Up Name Role Phone Clarisse [facility] Primary Care Provider Gregoria Brooks RN Unavailable [phone] Latricia Houser Unavailable Reason for Visit * Reason Comments Med Refill Encounter Details Date Type Department Care Team (Late st Contact Info) Description 06/03/2025 Refill [facility] MEDICINE 230 [place], [place] [phone] [place] Haily [facility] 230 [place], [place] [phone] Epigastric pain Social History Tobacco Use Types [...] Description 08/10/2025 1:00 PM EST Office Visit [facility] MEDICINE 230 [place] [address] Sanam Noland MD 230 [place] [address] documented as of this encounter Goals Goal [...] documented as of this encounter Care Teams Rigger Up Relationship Specialty Start Date End Date Haily RobbANETA 230 [place] [address] PCP - General Family Medicine 05/01/22 Gregoria Brooks RN 230 [place] [address] Registered Nurse Family Medicine 06/15/25 Latricia Houser 06/16/25 documented as of this encounter
--- OUTSIDE RECORDS SUMMARY | 2025-08-05 13:44 | XMS_ITS | Encounter Summary ---
Author Organization [employer] Address [address] [facility] 7t [place] [address] Care Team Providers Care Head Turbine Operator Name Role Phone Haily Robb ACTUARY CLERK Primary Care Provider [phone] Gregoria Brooks RN Unavailable [phone] Latricia Houser Unavailable Reason for Visit * Reason Comments Med Refill Encounter Details Date Type Department Care Team (Late st Contact Info) Description 04/02/2023 Refill [facility] 230 [place], [place] [phone] Hollis Rutledge MD 230 [place], [place] [phone] Social History Tobacco Use Types Packs/Day Years [...] Description 08/10/2025 1:00 PM EST Office Visit [facility] MEDICINE 230 [place] [address] Sanam Noland MD 230 [place] [address] documented as of this encounter Visit Diagnoses Not on filedocumented in this encounter Additional Health Concerns Assessment Noted Time PHQ-9 Depression Total Score: 0 01/26/20 3:38 PM EDT documented as of this encounter Care Teams Head Turbine Operator Relationship Specialty Start Date End Date [place] FNP 230 [place] [address] PCP - General Family Medicine 05/01/22 Gregoria Brooks, CHAGO [address] [place] [address] Registered Nurse Family Medicine 06/15/25 Latricia Houser 06/16/25 documented as of this encounter
--- OUTSIDE RECORDS SUMMARY | 2025-08-05 13:44 | XMS_ITS | Encounter Summary ---
Author Organization [employer] Address 75 [facility] 7t [place] [address] Care Team Providers Care Manager Ob Name Role Phone Clarisse [facility] Primary Care Provider Greogria Brooks RN Unavailable [phone] Latricia Houser Unavailable Reason for Visit * Reason Onset Date Comments triage 11/10/2022 Encounter Details Date Type Department Care Team (Late st Contact Info) Description 11/10/2022 Telephone [facility] MEDICINE 230 [place], [place] [phone] ClarisseHaily [facility] 230 [place], [place] [phone] triage Social History Tobacco Use Types Packs/Day [...] in office. Pt agrees to come into [facility] for exam. Pt also advised [...] question The caller accepted this outcome speaks urdu documented in this encounter Plan of Treatment Upcoming Encounters Date Type Department Care Team (Late st Contact Info) Description 08/10/2025 1:00 PM EST Office Visit [facility] MEDICINE [address] [place] [address] Sanam Noland MD 230 [place], [place] [phone] documented as of this encounter Visit Diagnoses Not on filedocumented in this encounter Additional Health Concerns Assessment Noted Time PHQ-9 Depression Total Score: 0 03/02/20 23 10:32 AM EST documented as of this encounter Care Teams Manager Ob Relationship Specialty Start Date End Date Haily Robb ANETA 230 [place] [address] PCP - General Family Medicine 05/01/22 Gregoria Brooks RN 230 [place] [address] Registered Nurse Family Medicine 06/15/25 Latricia Houser 06/16/25 documented as of this encounter
--- OUTSIDE RECORDS SUMMARY | 2025-08-05 13:44 | XMS_ITS | Encounter Summary ---
Author Organization [employer] Address 75 [facility] 7t [place] [address] Care Team Providers Care Die Inspector Name Role Phone Clarisse [facility] Primary Care Provider Gregoria Brooks RN Unavailable [phone] Latricia Houser Unavailable Reason for Visit * Reason Comments Med Refill Encounter Details Date Type Department Care Team (Late st Contact Info) Description 01/01/2023 Refill [facility] MEDICINE 230 [place], [place] [phone] [place] Haily [facility] 230 [place], [place] [phone] Chronic sinusitis, unspecified location Social History Tobacco [...] 1:00 PM EST Office Visit [facility] MEDICINE 230 [place] [address] Sanam Noland MD 230 [place], [place] [phone] documented as of this encounter Visit Diagnoses Diagnosis Chronic sinusitis, unspecified location documented in this encounter Additional Health Concerns Assessment Noted Time PHQ-9 Depression Total Score: 0 11/03/19 10:32 AM EST documented as of this encounter Care Teams Die Inspector Relationship Specialty Start Date End Date Haily Robb FNP [address] [place] [address] PCP - General Family Medicine 05/01/22 Gregoria Brooks, CHAGO [address] [place] [address] Registered Nurse Family Medicine 06/15/25 Latricia Houser 06/16/25 documented as of this encounter
--- OUTSIDE RECORDS SUMMARY | 2025-08-05 13:44 | XMS_ITS | Encounter Summary ---
Author Organization [id number] Address 75 [facility] 7t [place] [address] Care Team Providers Care Clothing Sorter Name Role Phone Haily Robb [facility] Primary Care Provider Gregoria Brooks RN Unavailable [phone] Latricia Houser Unavailable Reason for Visit * Reason Onset Date Comments Results 02/26/2025 Encounter Details Date Type Department Care Team (Late st Contact Info) Description 02/26/2025 Telephone [facility] MED[facility]INE 230 [place], [place] [phone] ClarisseHaily [facility] 230 [place], [place] [phone] Results Social History Tobacco Use Types Packs/Day [...] back regarding prior message. Contact pt at [phone] * Telephone Encounter - Claudette Ashley - 02/26/2025 12:59 PM EDT TC from pt requesting call back regarding Results. Type of results: Lab Date when done: 02/25/25 Facility: [facility] Contact pt at [phone] (greek) documented in this encounter Plan of Treatment Upcoming Encounters Date Type Department Care Team (Late st Contact Info) Description 08/10/2025 1:00 PM EST Office Visit [facility] MEDICINE 230 [place], [place] [phone] Sanam Noland MD 230 [place] [address] documented as of this encounter Goals Goal Patient Goal Type Associated Problems Recent Progress Patient-Stated? Author Patient will adhere to medication regimen General Mary Chauhan documented as of this encounter Visit Diagnoses Not on filedocumented in this encounter Additional Health Concerns Assessment Noted Time PHQ-9 Depression Total Score: 0 10/10/19 25 1:23 PM EST documented as of this encounter Care Teams Clothing Sorter Relationship Specialty Start Date End Date Haily Robb FNP [address] [place] [address] PCP - General Family Medicine 05/01/22 Gregoria Brooks, CHAGO [address] [place] [address] Registered Nurse Family Medicine 06/15/25 Latricia Houser 06/16/25 documented as of this encounter
--- OUTSIDE RECORDS SUMMARY | 2025-08-05 13:44 | XMS_ITS | Encounter Summary ---
Author Organization [employer] Address [address] 7t [place] [address] Care Team Providers Care Organizational Effectiveness Director Name Role Phone [place], [facility] Primary Care Provider Gregoria Brooks RN Unavailable [phone] Latricia Houser Unavailable Encounter Details Date Type Department Care Team (Late st Contact Info) Description 06/04/2025 Telephone [facility] MEDICINE 230 [place], [place] [phone] [place], [facility] 230 [place], [place] [phone] Social History Tobacco Use Types Packs/Day Years [...] Encounters Date Type Department Care Team ([facility] st Contact Info) Description 08/10/2025 1:00 PM EST Office Visit [facility] MEDICINE 230 [place] [address] Sanam Noland MD 230 [place] [address] documented as of this encounter Goals Goal Patient Goal Type Associated Problems Recent Progress Patient-Stated? Author Patient will adhere to medication regimen General No Mary Moreland documented as of this encounter Visit Diagnoses Not on filedocumented in this encounter Additional Health Concerns Assessment Noted Time PHQ-9 Depression Total Score: 21 025 3:59 PM EDT documented as of this encounter Care Teams Organizational Effectiveness Director Relationship Specialty Start Date End Date Haily RobbANETA 230 [place] [address] PCP - General Family Medicine 05/01/22 Gregoria Brooks RN 230 [place] [address] Registered Nurse Family Medicine 06/15/25 Latricia Houser 06/16/25 documented as of this encounter
--- OUTSIDE RECORDS SUMMARY | 2025-08-05 13:44 | XMS_ITS | Encounter Summary ---
Author Organization [employer] Address [address] [facility] [address] [place] [address] Care Team Providers Care Deputy Sheriff Generalist/Bailiff Name Role Phone [place] [facility] Primary Care Provider Gregoria Brooks RN Unavailable [phone] Latricia Houser Unavailable Reason for Visit * Reason Comments Med Refill Encounter Details Date Type Department Care Team (Late st Contact Info) Description 05/31/[address] [facility] 230 [place], [place] [phone] [place] [facility] 230 [place], [place] [phone] Restless leg Social History Tobacco Use Types [...] EST Office Visit [facility] MEDICINE 230 [place] [address] Sanam Noland MD 230 [place] [address] documented as of this encounter Goals Goal [...] documented as of this encounter Care Teams Deputy Sheriff Generalist/Bailiff Relationship Specialty Start Date End Date Haily Robb FNP 230 [place] [address] PCP - General Family Medicine 05/01/22 Gregoria Brooks RN 230 [place] [address] Registered Nurse Family Medicine 06/15/25 Latricia Houser 06/16/25 documented as of this encounter
[2025-08-05] MEDS: iohexoL 350 MG/ML 100 ML INFUS..BTL IV (16:18)
--- NOTE | 2025-08-05 19:11 | PC.NURSE ---
20 g IV in right AC and 20 g IV in left AC
--- NOTE | 2025-08-05 19:26 | PC.NURSE ---
Pt resting quietly on stretcher. Call gomes within reach, all needs met at this time.
[2025-08-05 19:38] LABS: Resp Syncy Virus RNA Qual PCR NEGATIVE (Negative); SARS COV2 PCR INHOUSE NEGATIVE (Negative)
[2025-08-05] MEDS: Lactated Ringers 1,000 ML 100 ML IVCONT (20:09)
--- NOTE | 2025-08-05 20:51 | HO.NURTONUR ---
Pt is a 55 y.o. male coming in with chest pain x 3 days with productive cough. PMH: Insomnia Paranoia Constipation Anemia Hx of substance abuse Smoker History of Helicobacter pylori infection Spinal pain Hypogonadism Erectile dysfunction Hx: UTI (urinary tract infection) BPH (benign prostatic hyperplasia) Hx of hepatitis C GERD (gastroesophageal reflux disease) Anxiety and depression HTN (hypertension) Murmur Labs grossly unremarkable, covid/flu neg. Chest xray and CT neg. VSS, a&ox4. Mohawk speaking only. Bilateral 20 g IVs in the ACs. Fluids running 100 mL/hr.
--- NOTE | 2025-08-05 22:09 | PHA.MEDREC ---
Pharmacy Consult ? Medication Reconciliation Pharmacy has completed the medication reconciliation. Spoke to patient via revenue accounting manager to confirm medication list. Per patient, he has been taking the new doses that were prescribed since last discharge on 07/28/25. He also confirmed he is not taking furosemide anymore. Last dose of medications was last night 08/04/25.
[2025-08-06 01:50] VITALS: BP 124/62; PULSE 71; RESP 18; TEMP 36.4; O2SAT 98
[2025-08-06 03:48] VITALS: BMI 21.5
[2025-08-06 03:49] VITALS: BP 102/52; PULSE 50; RESP 16; TEMP 37; O2SAT 95
[2025-08-06] MEDS: Lactated Ringers 1,000 ML 100 ML IVCONT (05:47)
[2025-08-06 05:55] LABS: Hemoglobin 12.5 g/dl (14.0-18.0); Lymphocytes Absolute Auto 0.6 X10*3/uL (1.2-4.9); NRBC Abs Auto 0.000 X10*3/uL (0.0-0.012); NRBC Pct Auto 0.0 /100WBC (0.0-0.2); PLT CLUMP 1; SCAN SMEAR FLAG 1
[2025-08-06 05:57] LABS: Hematocrit 37.1 % (42.0-52.0); Imm Gran Abs Auto 0.04 X10*3/uL (0.00-0.03); Imm Gran Pct Auto 0.4 % (0.0-0.4); MANUAL DIFF FLAG SCAN; Mean Corpuscular HGB Conc 33.7 g/dl (31.0-36.0); Mean Corpuscular Hemoglobin 32.0 pg (27.0-33.0); Mean Corpuscular Volume 94.9 fL (80.0-98.0); Red Blood Count 3.91 X10*6/uL (4.60-5.80)
--- NOTE | 2025-08-06 05:57 | PM.IMHP ---
History of Present Illness Date of Service: 08/05/25 Chief Complaint: Chest pain 55-year-old male with a past medical history of hypertension, hyperlipidemia, ex-smoker, anxiety, depression, opiate abuse disorder-on methadone, BPH; presented to the hospital today with a chief complaint of chest pain. Patient reports over the past few days he has been having chest pain. Also has cough with yellowish sputum production. Denies any fevers. Denies any sick contacts. Denies any association of chest pain with cough. Denies any associated lightheadedness dizziness nausea vomiting or diaphoresis. Review of all other systems is negative except mentioned above ER course: Per ER team, patient's EKG was nonischemic; chest x-ray showed no acute findings; troponin negative; CTA chest showed no evidence of PE or pneumonia; [facility] Medical History Insomnia Paranoia Constipation Anemia Hx of substance abuse Smoker History of Helicobacter pylori infection Spinal pain Hypogonadism Erectile dysfunction Hx: UTI (urinary tract infection) BPH (benign prostatic hyperplasia) Hx of hepatitis C GERD (gastroesophageal reflux disease) Anxiety and depression HTN (hypertension) Murmur Family History Mother Diabetes Surgical History Hx of cystoscopy Social History Household Members: Significant Other Household Members Other:: Nephew Housing: Apartment Do you presently have visiting nurse or other home services: No Alcohol intake: former Patient Tobacco Use Status: Former Tobacco user Tobacco use type: Cigarette e-Cigarette/Vaping Use: Never Used Second Hand Smoke Exposure: No Substance Use Type: Crack/Cocaine and Heroin Have you been hit, kicked, punched, or otherwise hurt by someone within the past year? If so, by whom?: No Do you feel safe in your current relationship?: Yes Is there a partner from a previous relationship who is making you feel unsafe now?: No Are you made to feel afraid or neglected: No Advance Directives: No Advance Directives Information Provided: Yes Do you have a plan to hurt others: No Plan Recently lost weight without trying: Yes How much weight loss: Unsure Eating poorly because of decreased appetite: Yes Nutrition screen score: 5 Nutrition Risks: Difficulty swallowing service: No Current occupational status: unemployed Sexual orientation: Straight/Heterosexual Meds Allergies Allergy/AdvReac Type Severity Reaction Status Date / Time SEAFOOD Allergy Severe ANAPHYLAXIS Uncoded 08/05/25 11:04 shellfish Allergy Severe Anaphylaxis Uncoded 08/05/25 11:04 Active Medications: Current Medications Acetaminophen (Acetaminophen 325 Mg Tablet) 650 mg PO Q6H PRN PRN Reason: Pain, Mild 1-3,fever,headache Albuterol/Ipratropium (Albuterol/Iprat 2.5/0.5mg 3 Ml Ampul.Neb) 3 ml INHALE Q4H PRN PRN Reason: Shortness of Breath/Wheezing Amitriptyline HCl (Amitriptyline Hcl 25 Mg Tablet) 25 mg PO BEDTIME [facility] Last Admin: 08/06/25 01:39 Dose: 25 mg Benzonatate (Benzonatate 100 Mg Capsule) 100 mg PO TID PRN PRN Reason: Cough Calcium Carbonate (Calcium Carbonate 750 Mg Tab.Chew) 750 mg PO Q4H PRN PRN Reason: Heartburn Diphenhydramine HCl (Diphenhydramine Hcl 25 Mg Capsule) 50 mg PO BID PRN PRN Reason: extrapyramidal effects/symptoms Enoxaparin Sodium (Enoxaparin Sodium 40 Mg/0.4 Ml Syringe) 40 mg SUBCUT Q24H [facility] Last Admin: 08/05/25 20:09 Dose: 40 mg Famotidine (Famotidine 20 Mg Tablet) 20 mg PO BEDTIME PRN PRN Reason: GERD Fluvoxamine Maleate (Fluvoxamine Maleate 50 Mg Tablet) 50 mg PO BEDTIME [facility] Last Admin: 08/06/25 01:39 Dose: 50 mg Haloperidol (Haloperidol 1 Mg Tablet) 2 mg PO DAILY [facility] Haloperidol (Haloperidol 5 Mg Tablet) 5 mg PO BEDTIME [facility] Last Admin: 08/06/25 01:39 Dose: 5 mg Hydromorphone HCl (Hydromorphone Hcl 1 Mg/Ml Syringe) 0.5 mg IVPUSH Q4H PRN; Protocol PRN Reason: Breakthrough Pain Lactated Ringer's (Lr) 1,000 mls @ 100 mls/hr IVCONT .Q10H [facility] Last Admin: 08/06/25 05:47 Dose: 100 mls/hr Magnesium Hydroxide (Milk Of Magnesia 30 Ml Oral.Susp) 30 ml PO DAILY PRN PRN Reason: Constipation Melatonin (Melatonin 3 Mg Tablet) 6 mg PO BEDTIME PRN PRN Reason: Insomnia Nitroglycerin (Nitroglycerin 0.4 Mg Tab.Subl) 0.4 mg SUBLINGUAL Q5MX3 PRN PRN Reason: Chest Pain Omeprazole (Omeprazole 20 Mg Capsule.Dr) 20 mg PO DAILY@0630 [facility] Last Admin: 08/06/25 05:47 Dose: 20 mg Quetiapine Fumarate (Quetiapine Fumarate 100 Mg Tablet) 100 mg PO BEDTIME [facility] Last Admin: 08/06/25 01:39 Dose: 100 mg Sodium Chloride (0.9 % Sodium Chloride Flush 3 Ml Syringe) 3 ml IVFLUSH QSHIFT [facility] Last Admin: 08/05/25 20:13 Dose: Not Given Tamsulosin HCl (Tamsulosin Hcl 0.4 Mg Capsule) 0.4 mg PO BEDTIME [facility] Last Admin: 08/06/25 01:39 Dose: 0.4 mg Home Medications ?Medication ?Instructions ?Recorded ?Confirmed ?Last Taken ?Type cholecalciferol (vitamin D3) 50 50 mcg PO DAILY 06/30/20 08/05/25 08/04/25 History mcg (2,000 unit) capsule (Vitamin D3) pantoprazole 40 mg tablet,delayed 40 mg PO DAILY 04/10/25 08/05/25 08/04/25 History release calcium polycarbophil 625 mg 625 mg PO BID 07/14/25 08/05/25 08/04/25 History tablet (Fiber-Lax) ketotifen fumarate 0.025 % (0.035 1 drp ophthalmic (eye) BID PRN 07/14/25 08/05/25 Unknown History %) eye drops allergies rosuvastatin 10 mg tablet 10 mg PO DAILY 07/14/25 08/05/25 08/04/25 History lidocaine 5 % topical patch 1 - 2 patch topical DAILY 07/15/25 08/05/25 08/04/25 History methadone 10 mg/mL oral 28 mg PO DAILY 07/15/25 07/15/25 08/04/25 History concentrate (Methadone Intensol) Physical Exam Vital Signs and Narrative: Vital Signs: Last Vital Signs Temp 98.6 F 08/06/25 03:49 Pulse 50 08/06/25 03:49 Resp 16 08/06/25 03:49 BP 102/52 L 08/06/25 03:49 Pulse Ox 95 08/06/25 03:49 O2 Del Method Room Air 08/06/25 03:49 BMI result Body Mass Index 21.5 Gen: Appears be in no acute distress HEENT: NCAT, Moist mucosa. Pulmonary: Vesicular breath sounds, fair air entry CVS: Normal S1-S2 Abdomen: BS+, Soft, Nontender Extremities: Warm well perfused Neuro: Alert and awake. Results Labs 08/05/25 11:40 08/05/25 11:40 Labs: Laboratory Results - last 24 hr 08/05/25 08/05/25 11:40 18:51 MCV 95.6 MCH 32.3 MCHC 33.7 RDW 11.9 Plt Count 154 L D MPV 11.4 Immature Gran % (Auto) 0.3 Neut % (Auto) 70.2 Lymph % (Auto) 19.3 L [place] % (Auto) 6.9 Eos % (Auto) 2.7 Baso % (Auto) 0.6 Lymph # (Auto) 1.3 [place] # (Auto) 0.5 Eos # (Auto) 0.2 Baso # (Auto) 0.0 Abs Immat Gran (auto) 0.02 Absolute Neuts (auto) 4.7 Absolute Nucleated RBC 0.000 Nucleated RBC % (auto) 0.0 PT 11.6 INR 0.9 APTT 28.8 D-Dimer High Sensitivty 349 Anion Gap 10 L Estim Creat Clear Calc 68.0 Estimated GFR > 60 Random Glucose 106 Lactic Acid 1.3 Calcium 9.1 Total Bilirubin 0.7 AST 31 ALT 57 H Alkaline Phosphatase 60 Troponin I High Sens < 2.7 NT-Pro-B Natriuret Pep 43.2 Total Protein 6.8 Albumin 4.3 Influenza Type A (PCR) NEGATIVE Influenza Type B (PCR) NEGATIVE RSV RNA Qual (PCR) NEGATIVE SARS-CoV-2 RNA (RT-PCR) NEGATIVE Imaging Radiologist's Impressions: Impressions Chest X-Ray 08/05/25 11:20 IMPRESSION: Right lower lung mild peribronchial thickening can be seen with inflammatory/infectious process.. No confluent consolidation. Electronically signed by: Rob Summers MD 08/05/2025 11:36 AM [facility] Chest CTA 08/05/25 16:14 IMPRESSION: 1. There is no evidence of pulmonary embolus. There is no evidence of acute aortic syndrome or aneurysm. 2. The lungs are clear bilaterally. There is no active lung disease. Electronically signed by: Kavin Duncan MD 08/05/2025 04:58 PM EST Assessment and Plan (1) Chest pain: Qualifiers: Chest pain type: unspecified Qualified Code(s): R07.9 - Chest pain, unspecified Status: Acute Plan 55-year-old male with a past medical history of hypertension, hyperlipidemia, ex-smoker, anxiety, depression, opiate abuse disorder-on methadone, BPH; presented to the hospital today with a chief complaint of chest pain. Chest pain: EKG nonischemic Troponin negative CT chest showed no evidence of PE or pneumonia Telemetry Cardiology consult Hypotension: Patient had brief episode of hypotension in the ER. Given IV fluids with improvement in blood pressure. Will monitor. GERD/MDD: Continue home medications-fluoxetine, Haldol, Seroquel Opiate dependence: Patient on methadone maintenance program. Will defer to day team to confirm and resume in the morning. Cough/bronchitis: CT shows no evidence of pneumonia. We will keep the patient on doxycycline. DVT prophylaxis: Lovenox Code status: Full code Quality Stroke Does the patient have a stroke diagnosis?: No VTE Prior VTE?: No VTE Risk Level:: Medical - moderate - high VTE Device Contraindication: Treatment Not Indicated VTE Drug Contraindication: N/A - Med Ordered
[2025-08-06 06:16] LABS: Alanine Aminotransferase 41 U/L (0-40); Albumin Level 3.7 g/dL (3.5-5.0); Alkaline Phosphatase 48 U/L (39-117); Anion Gap 11 (12-20); Aspartate Amino Transferase 22 U/L (5-37); Blood Urea Nitrogen 15 mg/dL (9-16); Calcium 8.6 mg/dL (8.4-10.2); Carbon Dioxide 25 mmol/L (22-29); Chloride 107 mmol/L (96-108); Creatinine Clr Calc Pharmacy 77.6; Estimated Glomerular Filt Rate > 60; Potassium 4.4 mmol/L (3.3-5.1); Sodium 139 mmol/L (135-145); Total Protein 5.9 g/dL (6.5-8.0)
[2025-08-06 06:19] LABS: Platelet Count 133 X10*3/uL (160-400); White Blood Count 9.7 X10*3/uL (4.8-10.8)
[2025-08-06 07:14] VITALS: BP 112/54; PULSE 50; RESP 18; TEMP 36.8; O2SAT 98
--- NOTE | 2025-08-06 08:56 | MHC.CM.PN ---
CM met with Patient with the assist of Persian translation. Patient lives in an apartment with his Nephew and he receives Methadone. Home self care is Patient's goal and CM has initiated and will follow for dc planning. PCP is Dr.Andrew Mendez and will transport at ne.
--- NOTE | 2025-08-06 10:02 | HE.PHANOTE ---
METHADONE CONFIRMATION SHEET PATIENT TAKES 28MG FROM [facility]. LAST DOSE 08/05 WITH 6 TAKE HOME BOTTLES
--- NOTE | 2025-08-06 10:04 | CA_ITS ---
Transthoracic Echocardiogram Patient (Last, First, Middle): John Fitzpatrick A Gender: M Date of : 1970 Age: 55 Procedure Date: 08/06/2025 Procedure Type: Transthoracic Echocardiogram Location: [facility] [place] Height: 172.72 cm Weight: 63.96 kg BSA: 1.76 m2 Heart Rate: 58 bpm BP: 112 / 54 mmHg Account Support Manager: MINA Referring MD: Goyo Gallego MD Symptoms: chest pain Study Quality: Adequate ECG Rhythm: Sinus Conclusions: - The left ventricular systolic function is hyperdynamic. The visually estimated ejection fraction is >70%. - No obvious valvular pathology seen on this study. Findings Left Ventricle Normal left ventricular cavity size. There is normal left ventricular wall thickness. The left ventricular systolic function is hyperdynamic. The visually estimated ejection fraction is >70%. There is no evidence of regional wall motion abnormalities. Diastolic function is normal for age. Right Ventricle Normal right ventricular cavity size and systolic function. Atria Both atria are normal in size. Aortic Valve There is a normal trileaflet aortic valve. There is no aortic valve stenosis. There is trace (trivial) aortic valve regurgitation. Mitral Valve The mitral valve appears normal. There is trace mitral valve regurgitation. There is no mitral valve stenosis. Pulmonic Valve There is trace pulmonic valve regurgitation. Tricuspid Valve Normal tricuspid valve structure. There is trace tricuspid valve regurgitation. There is no evidence of pulmonary hypertension. Great Vessels The asc aorta is normal in size. Venous The inferior vena cava is mildly dilated and collapses greater than 50% with inspiration. Pericardium/Pleural There is no evidence of pericardial effusion. Prior Study Comparison No significant change compared to prior study dated: 10/29/2024. Recommendations, Care & Conclusions No obvious valvular pathology seen on this study. Measurements 2D Linear Measurements IVSd: 0.81 0.6-0.9/0.6-1.0 cm LVIDd: 4.97 3.9-5.3/4.2-5.9 cm LVIDd Index: 2.82 2.4-3.2/2.2-3.1 cm/m2 LVIDs: 2.30 2.0-3.6 cm LVPWd: 0.96 0.7-1.1 cm LA Diam: 3.80 2.7-3.8/3.0-4.0 cm LAIDs Index: 2.16 1.5-2.3 cm/m2 LV Mass: 191.32 67-162/88-224 g LV Mass Index: 108.71 43-95/49-115 g/m2 LVOT Diam: 2.00 3.0+(-)1.3 cm 2D Systolic Function EF 4C: 73.20 >55% EF 2C: 73.10 >55% EF BiP: 72.80 >55% Mitral Valve MV Pk E: 1.06 MV PK A: 0.93 MV Decel Time: 196.00 E/A: 1.10 E'Lateral: 10.60 E'Medial: 9.25 E/E' Med: 11.50 E/E' Lat: 10.00 PHT: 57.00 MVA PHT: 3.86 Decel [place]: 5.41 Aortic Valve AoV Pk Michael: 1.59 AoV Mn Michael: 0.92 AoV VTI: 0.31 AoV Pk Grad: 10.00 Aov Mn Grad: 4.00 ROSY Cont.VTI: 2.63 LVOT LVOT Pk Michael: 1.50 LVOT Mn Michael: 0.88 LVOT VTI: 0.26 LVOT Pk Grad: 9.00 LVOT Mn Grad: 4.00 LVOT Diam: 2.00 LVOT Area: 3.14 Diastolic Function MV Pk E: 1.06 MV Pk A: 0.93 E/A: 1.10 E'Medial: 9.25 E/E' Med: 11.50 E' Laterial: 10.60 E/E' Lat: 10.00 Right Ventricle TAPSE (mm): 24.40 TVS' Michael: 15.70 Tricuspid Valve TR Pk Michael: 2.36 TR Pk Grad: 22.00 RA Press: 8.00 RVSP: 30.00 Great Vessels Aorta Sinus of Valsalva: 3.10 2.0-3.5 cm Ao Asc: 3.10 2.1-3.4 cm Pulmonary Veins Pulm Vein S/D 1.70 Pulmonary Valve PV Pk Michael: 1.56 Peak PV Grad: 10.00 Updated in Other Vendor System with Status of Final Goyo Gallego MD electronically signed on 08/06/2025 12:14:40 PM with status of Final
--- NOTE | 2025-08-06 10:07 | PM.CNCAR ---
History of Present Illness History of Present Illness Date of Service: 08/06/25 Chief complaint: chest pain Narrative: This is a cardiology consultation regarding chest pain. Per notes, patient has had a few days of chest pain and also had cough/difficulty breathing. When he came to the ER he was noted to be hypotensive and in the ER documentation, multiple according to the 70s/80s. After that, improvement with IV fluids and then he was admitted for further care. Patient denies any previous history of cardiac issues including coronary disease or myocardial infarction or cardiomyopathy. He has been getting a discomfort in the chest for the last few days. No specific provoking or relieving factors and can happen any time. Associated with cough and expectoration. Currently, he states he feels okay. Review of Systems Review of Systems: Yes all other systems are reviewed and are negative Constitutional: Constitutional: Reports as per HPI and Reports no additional constitutional complaints Eyes: Eyes: Reports as per HPI and Denies no additional eye complaints ENT: Denies system reviewed and no additional complaints, except as documented and Reports as per HPI Cardiovascular: Cardiovascular: Reports as per HPI, Reports no additional cardiovascular complaints, Denies acrocyanosis, Denies cool extremities, Reports chest pain, Denies leg edema, Denies lightheadedness, Denies palpitations and Reports dyspnea Respiratory: Respiratory: Reports as per HPI, Denies no additional respiratory complaints, Reports cough and Reports dyspnea Gastrointestinal: Gastrointestinal: Reports as per HPI and Denies no additional gastrointestinal complaints Genitourinary: Genitourinary: Reports no additional male genitourinary complaints and Reports as per HPI Musculoskeletal: Musculoskeletal: Reports no additional musculoskeletal complaints and Reports as per HPI Integumentary/Breasts: Skin/Breast: Reports system reviewed and no additional complaints, except as docu Neurologic: Reports system reviewed and no additional complaints, except as documented and Reports as per HPI Psychiatric: Psychiatric: Reports no additional psychiatric complaints and Reports as per HPI Endocrine: Endocrine: Reports no additional endocrine complaints, Reports as per HPI and Denies palpitations Hematologic/Lymphatic: Hematologic/Lymphatic: Reports no additional hematologic/lymphatic complaints and Reports as per HPI Allergic/Immunologic: Allergic/Immunologic: Reports no additional allergic/immunologic complaints and Reports as per HPI PENDING SALE TO [facility] Past Medical History Medical History Insomnia Paranoia Constipation Anemia Hx of substance abuse Smoker History of Helicobacter pylori infection Spinal pain Hypogonadism Erectile dysfunction Hx: UTI (urinary tract infection) BPH (benign prostatic hyperplasia) Hx of hepatitis C GERD (gastroesophageal reflux disease) Anxiety and depression HTN (hypertension) Murmur Family History Family History Mother Diabetes Surgical History Surgical History Hx of cystoscopy Social History Social History Household Members: Significant Other Household Members Other:: Nephew Housing: Apartment Do you presently have visiting nurse or other home services: No Alcohol intake: former Patient Tobacco Use Status: Former Tobacco user Tobacco use type: Cigarette e-Cigarette/Vaping Use: Never Used Second Hand Smoke Exposure: No Substance Use Type: Crack/Cocaine and Heroin Have you been hit, kicked, punched, or otherwise hurt by someone within the past year? If so, by whom?: No Do you feel safe in your current relationship?: Yes Is there a partner from a previous relationship who is making you feel unsafe now?: No Are you made to feel afraid or neglected: No Advance Directives: No Advance Directives Information Provided: Yes Do you have a plan to hurt others: No Plan Recently lost weight without trying: Yes How much weight loss: Unsure Eating poorly because of decreased appetite: Yes Nutrition screen score: 5 Nutrition Risks: Difficulty swallowing service: No Current occupational status: unemployed Sexual orientation: Straight/Heterosexual Meds Allergies Allergy/AdvReac Type Severity Reaction Status Date / Time SEAFOOD Allergy Severe ANAPHYLAXIS Uncoded 08/05/25 11:04 shellfish Allergy Severe Anaphylaxis Uncoded 08/05/25 11:04 Active Medications: Current Medications Acetaminophen (Acetaminophen 325 Mg Tablet) 650 mg PO Q6H PRN PRN Reason: Pain, Mild 1-3,fever,headache Last Admin: 08/06/25 08:29 Dose: 325 mg Albuterol/Ipratropium (Albuterol/Iprat 2.5/0.5mg 3 Ml Ampul.Neb) 3 ml INHALE Q4H PRN PRN Reason: Shortness of Breath/Wheezing Amitriptyline HCl (Amitriptyline Hcl 25 Mg Tablet) 25 mg PO BEDTIME MARIA G Last Admin: 12/04/25 01:39 Dose: 25 mg Atorvastatin Calcium (Atorvastatin Calcium 40 Mg Tablet) 40 mg PO DAILY [facility] Benzonatate (Benzonatate 100 Mg Capsule) 100 mg PO TID PRN PRN Reason: Cough Calcium Carbonate (Calcium Carbonate 750 Mg Tab.Chew) 750 mg PO Q4H PRN PRN Reason: Heartburn Calcium Polycarbophil (Calcium Polycarbophil Tablet) 1 tab PO BID [facility] Diphenhydramine HCl (Diphenhydramine Hcl 25 Mg Capsule) 50 mg PO BID PRN PRN Reason: extrapyramidal effects/symptoms Docusate Sodium (Docusate Sodium 100 Mg Capsule) 100 mg PO BEDTIME PRN PRN Reason: Constipation Doxycycline Monohydrate (Doxycycline Monohydrate 100 Mg Capsule) 100 mg PO Q12H [facility] Last Admin: 08/06/25 08:25 Dose: 100 mg Enoxaparin Sodium (Enoxaparin Sodium 40 Mg/0.4 Ml Syringe) 40 mg SUBCUT Q24H [facility] Last Admin: 08/05/25 20:09 Dose: 40 mg Famotidine (Famotidine 20 Mg Tablet) 20 mg PO BEDTIME PRN PRN Reason: GERD Fluvoxamine Maleate (Fluvoxamine Maleate 50 Mg Tablet) 50 mg PO BEDTIME [facility] Last Admin: 08/06/25 01:39 Dose: 50 mg Haloperidol (Haloperidol 1 Mg Tablet) 2 mg PO DAILY [facility] Last Admin: 08/06/25 08:25 Dose: 2 mg Haloperidol (Haloperidol 5 Mg Tablet) 5 mg PO BEDTIME [facility] Last Admin: 08/06/25 01:39 Dose: 5 mg Hydromorphone HCl (Hydromorphone Hcl 1 Mg/Ml Syringe) 0.5 mg IVPUSH Q4H PRN; Protocol PRN Reason: Breakthrough Pain Lactated Ringer's (Lr) 1,000 mls @ 100 mls/hr IVCONT .Q10H [facility] Last Admin: 08/06/25 05:47 Dose: 100 mls/hr Ketotifen Fumarate (Ketotifen Fumarate 0.025% Oph 5 Ml Drpbtl) 1 drop EYE-BOTH BID PRN PRN Reason: allergies Lidocaine (Lidocaine 4 % Patch Adh..Patch) 1 patch TRANSDERMA DAILY [facility] Magnesium Hydroxide (Milk Of Magnesia 30 Ml Oral.Susp) 30 ml PO DAILY PRN PRN Reason: Constipation Melatonin (Melatonin 3 Mg Tablet) 6 mg PO BEDTIME PRN PRN Reason: Insomnia Nitroglycerin (Nitroglycerin 0.4 Mg Tab.Subl) 0.4 mg SUBLINGUAL Q5MX3 PRN PRN Reason: Chest Pain Omeprazole (Omeprazole 20 Mg Capsule.Dr) 20 mg PO DAILY@0630 [facility] Last Admin: 08/06/25 05:47 Dose: 20 mg Quetiapine Fumarate (Quetiapine Fumarate 100 Mg Tablet) 100 mg PO BEDTIME [facility] Last Admin: 08/06/25 01:39 Dose: 100 mg Sodium Chloride (0.9 % Sodium Chloride Flush 3 Ml Syringe) 3 ml IVFLUSH QSHIFT [facility] Last Admin: 08/06/25 08:27 Dose: Not Given Tamsulosin HCl (Tamsulosin Hcl 0.4 Mg Capsule) 0.4 mg PO BEDTIME [facility] Last Admin: 08/06/25 01:39 Dose: 0.4 mg Vitamin D (Cholecalciferol (Vitamin D3) 25 Mcg Tablet) 50 mcg PO DAILY [facility] Home Medications ?Medication ?Instructions ?Recorded ?Confirmed ?Last Taken ?Type cholecalciferol (vitamin D3) 50 50 mcg PO DAILY 06/30/20 08/05/25 08/04/25 History mcg (2,000 unit) capsule (Vitamin D3) pantoprazole 40 mg tablet,delayed 40 mg PO DAILY 04/10/25 08/05/25 08/04/25 History release calcium polycarbophil 625 mg 625 mg PO BID 07/14/25 08/05/25 08/04/25 History tablet (Fiber-Lax) ketotifen fumarate 0.025 % (0.035 1 drp ophthalmic (eye) BID PRN 07/14/25 08/05/25 Unknown History %) eye drops allergies rosuvastatin 10 mg tablet 10 mg PO DAILY 07/14/25 08/05/25 08/04/25 History lidocaine 5 % topical patch 1 - 2 patch topical DAILY 07/15/25 08/05/25 08/04/25 History methadone 10 mg/mL oral 28 mg PO DAILY 07/15/25 07/15/25 08/04/25 History concentrate (Methadone Intensol) Physical Exam Vital Signs: Vital Signs: Last Vital Signs Temp 98.3 F 08/06/25 07:14 Pulse 50 08/06/25 07:14 Resp 18 08/06/25 07:14 BP 112/54 L 08/06/25 07:14 Pulse Ox 98 08/06/25 07:14 O2 Del Method Room Air 08/06/25 07:14 BMI result Body Mass Index 21.5 Const: General: comfortable and no acute distress Orientation/consciousness: patient oriented x3 HEENT: Other: Unremarkable Head: Yes normal to inspection Neck: Neck: Yes normal visual inspection Chest: Chest palpation & inspection: normal inspection of the chest Resp: Auscultation: clear to auscultation bilaterally Cardio: Palpation: normal PMI Heart sounds: S1 normal heart sound present, S2 normal heart sound present, no gallops, no murmurs and no rubs GI: Palpation (GI): Soft to palpation Back/Spine/Pelvis: Other: unremarkable Skin: General skin exam: no rashes or lesions noted Neuro: General: patient oriented x3 Extrem: General: Yes normal to inspection Psych: Mental Status: mental status grossly normal Objective Labs and Meds 08/06/25 05:36 08/06/25 05:36 Lab results: Laboratory Results - last 24 hr 08/05/25 08/05/25 08/06/25 11:40 18:51 05:36 WBC 6.7 9.7 RBC 4.31 L 3.91 L Hgb 13.9 L 12.5 L Hct 41.2 L 37.1 L MCV 95.6 94.9 MCH 32.3 32.0 MCHC 33.7 33.7 RDW 11.9 11.6 Plt Count 154 L D 133 L MPV 11.4 11.8 Immature Gran % (Auto) 0.3 0.4 Neut % (Auto) 70.2 91.9 H Lymph % (Auto) 19.3 L 6.4 L [place] % (Auto) 6.9 1.2 L Eos % (Auto) 2.7 0.0 Baso % (Auto) 0.6 0.1 Lymph # (Auto) 1.3 0.6 L [place] # (Auto) 0.5 0.1 Eos # (Auto) 0.2 0.0 Baso # (Auto) 0.0 0.0 Abs Immat Gran (auto) 0.02 0.04 H Absolute Neuts (auto) 4.7 8.9 H Absolute Nucleated RBC 0.000 0.000 Nucleated RBC % (auto) 0.0 0.0 Smear Tech's Comments VERIFIED PT 11.6 INR 0.9 APTT 28.8 D-Dimer High Sensitivty 349 Sodium 143 139 Potassium 4.2 D 4.4 Chloride 105 107 Carbon Dioxide 32 H 25 Anion Gap 10 L 11 L BUN 16 15 Creatinine 1.03 0.95 Estim Creat Clear Calc 68.0 77.6 Estimated GFR > 60 > 60 Random Glucose 106 183 H Lactic Acid 1.3 Calcium 9.1 8.6 Total Bilirubin 0.7 0.4 AST 31 22 ALT 57 H 41 H Alkaline Phosphatase 60 48 Troponin I High Sens < 2.7 NT-Pro-B Natriuret Pep 43.2 Total Protein 6.8 5.9 L Albumin 4.3 3.7 Influenza Type A (PCR) NEGATIVE Influenza Type B (PCR) NEGATIVE RSV RNA Qual (PCR) NEGATIVE SARS-CoV-2 RNA (RT-PCR) NEGATIVE ECG Interpretation: EKG shows sinus bradycardia at 57/Min; no ischemic changes; normal VT and corrected QT. Imaging Radiologist's impression: Impressions Chest X-Ray 08/05/25 11:20 IMPRESSION: Right lower lung mild peribronchial thickening can be seen with inflammatory/infectious process.. No confluent consolidation. Electronically signed by: Rob Summers MD 08/05/2025 11:36 AM EST RP Chest CTA 08/05/25 16:14 IMPRESSION: 1. There is no evidence of pulmonary embolus. There is no evidence of acute aortic syndrome or aneurysm. 2. The lungs are clear bilaterally. There is no active lung disease. Electronically signed by: Kavin Duncan MD 08/05/2025 04:58 PM EST RP Assessment and Plan (1) Chest pain: Qualifiers: Chest pain type: unspecified Qualified Code(s): R07.9 - Chest pain, unspecified Status: Acute (2) Hypotension: Status: Acute Plan High sensitivity troponins are unremarkable. NT proBNP also is within normal limits. Chest x-ray reported have right lower lung mild peribronchial thickening from inflammation versus infection. CT chest with no pulmonary embolism. Reported have no active lung disease. Overall, considering his symptoms of chest discomfort associated with coughing, suspect more so from infectious process. With normal cardiac biomarkers, unlikely from ACS or acute heart failure. Hypotension could also be from infection. We will check an echocardiogram for further clarification but overall, doubt he needs any further cardiac workup at this time. Procedures Date of Service Date of Service: 08/06/25
[2025-08-06 11:49] VITALS: BP 110/54; PULSE 53; RESP 18; TEMP 37.2; O2SAT 98
--- NOTE | 2025-08-06 13:49 | P.DS_ITS ---
DS: Providers Provider Date of Service: 08/06/25 Date of admission: 08/05/25 19:30 Date of discharge: 08/06/25 Primary care physician: Segundo Mendez MD Consults: 08/05/25 19:30 Consult to Cardiology Routine Consulting Provider: [facility] Reason for consultation: chest pain DS: Diagnosis Discharge Diagnosis (1) Chest pain: Status: Acute (2) Hypotension: Status: Acute DS: Summary Hospital Course Hospital Course: admission hpi Chief Complaint: Chest pain 55-year-old male with a past medical history of hypertension, hyperlipidemia, ex-smoker, anxiety, depression, opiate abuse disorder-on methadone, BPH; presented to the hospital today with a chief complaint of chest pain. Patient reports over the past few days he has been having chest pain. Also has cough with yellowish sputum production. Denies any fevers. Denies any sick contacts. Denies any association of chest pain with cough. Denies any associated lightheadedness dizziness nausea vomiting or diaphoresis. Review of all other systems is negative except mentioned above ER course: Per ER team, patient's EKG was nonischemic; chest x-ray showed no acute findings; troponin negative; CTA chest showed no evidence of PE or pneumonia; Hospital course: Patient presented with chest pain and had transient h ypotension, cardiac work up has been negative including ECG, troponin I and was evaluated by cardiology and at this point, no further cardiac testing indicated. Additional testing included CXR showing:Right lower lung mild peribronchial thickening can be seen with inflammatory/infectious process.. No confluent consolidation. a CTA of the chst is negative for PE. WBC is normal, yet has been started empirically on Doxycyline for possible bronchitis, based on CXR findings. Echocardiogram show - The left ventricular systolic function is hyperdynamic. The visually estimated ejection fraction is >70%. - No obvious valvular pathology seen on this study. Time Attestation Discharge Coordination Time (in mins): 40 Quality: Safe Use of Opioids Does Pt have an Active Cancer Diagnosis on the Problem List?: No Quality: Stroke Does the patient have a stroke diagnosis?: No Physical Exam Vital Signs: Vital Signs: Last Vital Signs Temp 98.9 F 08/06/25 11:49 Pulse 53 08/06/25 11:49 Resp 18 08/06/25 11:49 BP 110/54 L 08/06/25 11:49 Pulse Ox 98 08/06/25 11:49 O2 Del Method Room Air 08/06/25 11:49 BMI result Body Mass Index 21.5 DS: Data Data Completed and Pending Labs on day of discharge: Laboratory Results - last 24 hr 08/05/25 08/06/25 18:51 05:36 WBC 9.7 RBC 3.91 L Hgb 12.5 L Hct 37.1 L MCV 94.9 MCH 32.0 MCHC 33.7 RDW 11.6 Plt Count 133 L MPV 11.8 Immature Gran % (Auto) 0.4 Neut % (Auto) 91.9 H Lymph % (Auto) 6.4 L [place] % (Auto) 1.2 L Eos % (Auto) 0.0 Baso % (Auto) 0.1 Lymph # (Auto) 0.6 L [place] # (Auto) 0.1 Eos # (Auto) 0.0 Baso # (Auto) 0.0 Abs Immat Gran (auto) 0.04 H Absolute Neuts (auto) 8.9 H Absolute Nucleated RBC 0.000 Nucleated RBC % (auto) 0.0 Smear Tech's Comments VERIFIED Sodium 139 Potassium 4.4 Chloride 107 Carbon Dioxide 25 Anion Gap 11 L BUN 15 Creatinine 0.95 Estim Creat Clear Calc 77.6 Estimated GFR > 60 Random Glucose 183 H Calcium 8.6 Total Bilirubin 0.4 AST 22 ALT 41 H Alkaline Phosphatase 48 Total Protein 5.9 L Albumin 3.7 Influenza Type A (PCR) NEGATIVE Influenza Type B (PCR) NEGATIVE RSV RNA Qual (PCR) NEGATIVE SARS-CoV-2 RNA (RT-PCR) NEGATIVE Preliminary micro results at discharge 08/05/25 11:40 Blood Culture - Preliminary Blood - Venous No growth after 24 hours. Discharge Plan Discharge Anticipated Discharge Date/Time: 08/06/25 13:49 Patient Disposition: Home, Self-Care Discharge Diagnosis: Chest pain, Hypotension, Referrals: Segundo Mendez MD [Primary Care Provider, Internal Medicine] - 1 Week Discharge Medications: New doxycycline monohydrate 100 mg Capsule 100 mg PO Q12H Qty: 12 0RF Continued (DME) syringe (disposable) [BD Luer-Vira Syringe] 3 mL syringe See Rx Instructions .Route Qty: 25 0RF Rx Instructions: As directed 1 syringe [id number] 2 syringes total per month for T injection (DME) needle (disp) 22 G 22 gauge x 1 needle See Rx Instructions .Route Qty: 30 0RF Rx Instructions: As directed to inject testosterone (DME) needle (disp) 18 G [BD Regular [place]] 18 gauge x 1 needle See Rx Instructions .Route Qty: 30 0RF Rx Instructions: As directed to draw testosterone cholecalciferol (vitamin D3) [Vitamin D3] 50 mcg (2,000 unit) Capsule 50 mcg PO DAILY ketotifen fumarate 0.025 % (0.035 %) drops 1 drp ophthalmic (eye) BID PRN (Reason: allergies) calcium polycarbophil [Fiber-Lax] 625 mg tablet 625 mg PO BID rosuvastatin 10 mg tablet 10 mg PO DAILY methadone [Methadone Intensol] 10 mg/mL Concentrate 28 mg PO DAILY lidocaine 5 % adhesive patch,medicated 1 - 2 patch topical DAILY Rx Instructions: 12 HOURS AND OFF FOR 12 HOURS DIRECTED FOR MILD PAIN fluvoxamine 50 mg Tablet 50 mg PO BEDTIME 30 Days Qty: 30 0RF haloperidol 5 mg Tablet 5 mg PO BEDTIME 30 Days Qty: 30 0RF haloperidol 2 mg tablet 2 mg PO DAILY 30 Days Qty: 30 0RF quetiapine 100 mg Tablet 100 mg PO BEDTIME 30 Days Qty: 30 0RF diphenhydramine HCl 50 mg capsule 50 mg PO BID PRN (Reason: extrapyramidal effects/symptoms) 7 Days Qty: 14 0RF amitriptyline 25 mg tablet 25 mg PO BEDTIME 30 Days Qty: 30 0RF pantoprazole 40 mg tablet,delayed release (DR/EC) 40 mg PO DAILY famotidine 20 mg tablet 20 mg PO DAILY PRN (Reason: GERD) Qty: 90 1RF Rx Instructions: Take one tablet daily at bedtime as needed docusate sodium 100 mg capsule 100 mg PO BEDTIME PRN (Reason: constipation) Qty: 90 0RF Rx Instructions: Take one tablet at bedtime as needed for constipation tamsulosin 0.4 mg capsule 0.4 mg PO BEDTIME 90 Days Qty: 90 1RF testosterone cypionate 200 mg/mL oil 200 mg IM Q2W 28 Days Qty: 2 5RF Discharge Orders: Discharge Order (Routine); Ordered 08/06/25 Ordered By: Mikel Nunez Diet: Advance to usual diet Activity on Discharge: As tolerated Stand Alone Forms: Patient Portal Discharge page Print Language: Yakut Care Plan Goals: recovery from chest pain, hypOtension, Health Concerns: hypotension, chest pain, possible bronchitis Plan of Treatment: recovery from chest pain, low blood pressure and Assessment: take doxycyline for possible bronchitis follow up with your doctor in a week, call for appointment
--- NOTE | 2025-08-06 14:38 | MHC.CM.PN ---
Patient has been medically cleared for dc to home today, self care.
[2025-08-06] MEDS: methADONE HCl 20 MG/2 ML ORAL.CONC 28 MG PO (14:49)
== END 2025-08-06 16:12 | disposition home or self-care (01) ==
LOC: HO.ED 17:55 → HO.EDOVER 19:41 → HO.IMC 08-06 02:13
PROVIDERS: Physician Assistant; Admitting Provider Hospitalist; Emergency Provider Emergency Medicine; PCP Internal Medicine; Visit Provider Internal Medicine
DX: R07.9 Chest pain, unspecified (principal); I95.9 Hypotension, unspecified; R00.1 Bradycardia, unspecified; R06.02 Shortness of breath; R05.9 Cough, unspecified; I10 Essential (primary) hypertension; R79.1 Abnormal coagulation profile; E78.5 Hyperlipidemia, unspecified; F41.1 Generalized anxiety disorder; Z87.891 Personal history of nicotine dependence; Z79.899 Other long term (current) drug therapy
CPT/HCPCS: 36415; 71045; 71275; 80053; 83605; 83880; 84484; 85025; 85379; 85610; 85730; 87040; 87637; 93005; 93306; 96361; 96365; 96366; 96372; 96375; 99222; 99285; J0696; J1100; J1200; J1271; J1650; J2919; J7120; Q9967

== ENCOUNTER → 2025-08-05 11:08 | Outpatient (BNV) | payer MEDICAID, SELFPAY | PROVIDERS: Emergency Provider Emergency Medicine; PCP Internal Medicine; Visit Provider Radiology Diagnostic Ultrasound | DX: R07.9 Chest pain, unspecified (principal); R06.02 Shortness of breath; R79.1 Abnormal coagulation profile; J98.09 Other diseases of bronchus, not elsewhere classified | CPT/HCPCS: 71045; 71275 ==

== ENCOUNTER 2025-08-05 19:30 | Outpatient (BNV) | payer MEDICAID, SELFPAY | END 2025-08-06 10:04 | PROVIDERS: Admitting Provider Hospitalist; Emergency Provider Emergency Medicine; PCP Internal Medicine; Visit Provider Internal Medicine | DX: I51.89 Other ill-defined heart diseases (principal) | CPT/HCPCS: 93306 ==

== ENCOUNTER → 2025-08-05 19:30 | Outpatient (BNV) | payer MEDICAID, SELFPAY | PROVIDERS: Admitting Provider Hospitalist; Emergency Provider Emergency Medicine; PCP Internal Medicine; Visit Provider Internal Medicine | DX: R07.9 Chest pain, unspecified (principal); I95.9 Hypotension, unspecified | CPT/HCPCS: 99223 ==

== ENCOUNTER → 2025-08-05 19:30 | Outpatient (BNV) | payer MEDICAID, SELFPAY | PROVIDERS: Admitting Provider Hospitalist; Emergency Provider Emergency Medicine; PCP Internal Medicine; Visit Provider Internal Medicine | DX: R07.9 Chest pain, unspecified (principal); I95.9 Hypotension, unspecified | CPT/HCPCS: 99239 ==

== ENCOUNTER 2025-08-10 10:36 | Inpatient (IN) | payer MEDICAID, OTHER, SELFPAY ==
[2025-08-10 11:12] VITALS: BP 124/76; PULSE 60; RESP 16; TEMP 36.8; O2SAT 97; BMI 20.1
--- NOTE | 2025-08-10 11:15 | ED.PSYCH ---
HPI - Psych General Chief Complaint: Psychiatric Symptoms Stated Complaint: paranoia/AH/psychosis Time Seen by Provider: 08/10/25 11:11 Source: patient, EMS, technology director and other ([facility] expect) Mode of arrival: EMS Limitations: language barrier History of Present Illness ED Provider: HPI Narrative: 55-year-old male with a history of depression, paranoia, anxiety, denies SI or HI, substance use disorder on methadone, denies ongoing drug use presenting with worsening depression, [facility] team reported that her ensure of medical compliance, worsening paranoia. Related Data Home Medications ?Medication ?Instructions ?Recorded ?Confirmed cholecalciferol (vitamin D3) 50 50 mcg PO DAILY 06/30/20 08/10/25 mcg (2,000 unit) capsule (Vitamin D3) pantoprazole 40 mg tablet,delayed 40 mg PO DAILY 04/10/25 08/10/25 release calcium polycarbophil 625 mg 625 mg PO BID 07/14/25 08/10/25 tablet (Fiber-Lax) ketotifen fumarate 0.025 % (0.035 1 drp ophthalmic (eye) BID PRN 07/14/25 08/10/25 %) eye drops allergies rosuvastatin 10 mg tablet 10 mg PO DAILY 07/14/25 08/10/25 lidocaine 5 % topical patch 1 - 2 patch topical DAILY 07/15/25 08/10/25 methadone 10 mg/mL oral 28 mg PO DAILY 07/15/25 08/10/25 concentrate (Methadone Intensol) Previous Rx's ?Medication ?Instructions ?Recorded docusate sodium 100 mg capsule 100 mg PO BEDTIME PRN constipation 02/27/25 #90 caps famotidine 20 mg tablet 20 mg PO DAILY PRN GERD #90 tabs 02/27/25 tamsulosin 0.4 mg capsule 0.4 mg PO BEDTIME 90 days #90 caps 04/07/25 testosterone cypionate 200 mg/mL 200 mg IM Q2W 28 days #2 mL 04/07/25 intramuscular oil amitriptyline 25 mg tablet 25 mg PO BEDTIME 30 days #30 tabs 07/27/25 diphenhydramine HCl 50 mg capsule 50 mg PO BID PRN extrapyramidal 07/27/25 effects/symptoms 7 days #14 caps fluvoxamine 50 mg tablet 50 mg PO BEDTIME 30 days #30 tabs 07/27/25 haloperidol 2 mg tablet 2 mg PO DAILY 30 days #30 tabs 07/27/25 haloperidol 5 mg tablet 5 mg PO BEDTIME 30 days #30 tabs 07/27/25 doxycycline monohydrate 100 mg 100 mg PO Q12H #12 caps 08/06/25 capsule haloperidol 5 mg tablet 5 mg PO BID PRN 08/17/25 psychosis/agitation 7 days #14 tabs Allergies Allergy/AdvReac Type Severity Reaction Status Date / Time SEAFOOD Allergy Severe ANAPHYLAXIS Uncoded 08/10/25 11:18 shellfish Allergy Severe Anaphylaxis Uncoded 08/10/25 11:18 Review of Systems Constitutional: Constitutional: Reports as per [facility] Past Medical History Medical History (Updated 08/14/25 @ 00:02 by Miguel Abarca) Insomnia Paranoia Constipation Anemia Hx of substance abuse Smoker History of Helicobacter pylori infection Spinal pain Hypogonadism Erectile dysfunction Hx: UTI (urinary tract infection) BPH (benign prostatic hyperplasia) Hx of hepatitis C GERD (gastroesophageal reflux disease) Anxiety and depression HTN (hypertension) Murmur Surgical History Hx of cystoscopy Family History Family History Mother Diabetes Social History Social History Household Members: Spouse Household Members Other:: Nephew Housing: Apartment Do you presently have visiting nurse or other home services: No Alcohol intake: former Patient Tobacco Use Status: Former Tobacco user Tobacco use type: Cigarette e-Cigarette/Vaping Use: Never Used Second Hand Smoke Exposure: No Substance Use Type: Crack/Cocaine and Heroin service: No Current occupational status: unemployed Sexual orientation: Straight/Heterosexual Physical Exam Exam: Exam: ?General: ??looks age appropriate ?PERRLA, no trauma noted Neck: Supple, no LAD ?CV: RRR, no obvious murmurs appreciated ?Resp: ?No wheezing rales rhonchi no stridor moving air well Abd: ?Bowel sounds are present, no tenderness no rebound no rigidity MSK: FROM, strength 5/5 all extremities Skin: Warm, dry, intact, ?Neuro: ?Alert and oriented x3, moving upper and lower extremities symmetrically, no obvious facial asymmetry noted, cranial nerves 2-12 intact Psych; depressive affect , poor eye contact, non pressured speech Vital Signs: Vital Signs: Last Vital Signs Temp 97.9 F 08/18/25 08:00 Pulse 64 08/18/25 08:00 Resp 14 08/18/25 08:00 BP 131/72 08/18/25 08:00 Pulse Ox 97 08/18/25 08:00 O2 Del Method Room Air 08/18/25 08:00 BMI result Body Mass Index 20.1 Course Course Course Narrative: Time: 05:20 Date: 08/11/25 Provider: Enzo Ochoa MD Patient in physician observation for psychiatric evaluation.? No acute events reported overnight. No current complaints. VS stable.? patient was evaluated by the CARE in meets criteria for inpatient level of care. Will continue to monitor. Medications Administered Discontinued Medications Generic Name Dose Route Start Last Admin Trade Name Freq PRN Reason Stop Dose Admin Acetaminophen 650 mg 08/10/25 15:09 08/10/25 15:16 Acetaminophen 325 Mg Tablet PO 08/10/25 15:10 650 mg ONCE ONE Administration Acetaminophen 650 mg 08/11/25 00:50 08/11/25 00:53 Acetaminophen 325 Mg Tablet PO 08/11/25 00:51 650 mg ONCE ONE Administration Acetaminophen 650 mg 08/11/25 14:50 08/12/25 17:28 Acetaminophen 325 Mg Tablet PO 650 mg Q6H PRN Administration Headache/Pain, Scale 1-10 Acetaminophen 975 mg 08/12/25 23:00 08/17/25 21:01 Acetaminophen 325 Mg Tablet PO 650 mg Q6H PRN Administration Headache/Pain, Scale 1-10 Al Hydroxide/Mg Hydroxide 30 ml 08/11/25 14:50 08/12/25 16:35 Magnesium Hydrox/Alum Hydrox 30 Ml Oral.Susp PO 30 ml Q6H PRN Administration Heartburn/Nausea Amitriptyline HCl 25 mg 08/10/25 21:00 08/17/25 20:56 Amitriptyline Hcl 25 Mg Tablet PO 25 mg BEDTIME MARIA G Administration Atorvastatin Calcium 40 mg 08/10/25 21:00 08/18/25 08:27 Atorvastatin Calcium 40 Mg Tablet PO 40 mg DAILY MARIA G Administration Benzocaine 1 lozenge 08/12/25 16:24 08/12/25 16:35 Throat Lozenge, Medicated Lozenge MUCOUS MEM 1 lozenge Q2H PRN Administration Sore Throat Bisacodyl 10 mg 08/12/25 21:00 08/17/25 20:55 Bisacodyl 5 Mg Tablet.Dr PO 10 mg BEDTIME MARIA G Administration Calcium Polycarbophil 1 tab 08/10/25 21:00 08/18/25 08:27 Calcium Polycarbophil Tablet PO 1 tab BID MARIA G Administration Doxycycline Monohydrate 100 mg 08/10/25 21:00 08/18/25 08:27 Doxycycline Monohydrate 100 Mg Capsule PO 100 mg Q12H MARIA G Administration Fluvoxamine Maleate 50 mg 08/10/25 21:00 08/17/25 20:56 Fluvoxamine Maleate 50 Mg Tablet PO 50 mg BEDTIME MARIA G Administration Guaifenesin/Dextromethorphan 1 tab 08/12/25 21:00 08/18/25 08:27 Guaifenesin Dm 600/30 1 Tab Tab.Er.12h PO 08/19/25 20:59 1 tab BID MARIA G Administration Haloperidol 2 mg 08/10/25 21:00 08/18/25 08:27 Haloperidol 1 Mg Tablet PO 2 mg DAILY MARIA G Administration Haloperidol 5 mg 08/10/25 21:00 08/17/25 20:56 Haloperidol 5 Mg Tablet PO 5 mg BEDTIME MARIA G Administration Haloperidol 5 mg 08/11/25 14:50 08/17/25 11:42 Haloperidol 5 Mg Tablet PO 5 mg BID PRN Administration psychosis/agitation Hydroxyzine HCl 25 mg 08/11/25 14:50 08/12/25 13:10 Hydroxyzine Hcl 25 Mg Tablet PO 25 mg Q6H PRN Administration mild anxiety Ibuprofen 600 mg 08/12/25 19:03 08/13/25 00:12 Ibuprofen 600 Mg Tablet PO 600 mg Q6H PRN Administration Headache Ibuprofen 800 mg 08/16/25 12:16 08/17/25 08:50 Ibuprofen 800 Mg Tablet PO 800 mg Q8H PRN Administration Headache Influenza Virus Vaccine 0.5 ml 08/11/25 17:28 08/11/25 18:06 Flu Vacc [id number](6mo Up)/Pf 0.5 Ml Syringe IM 08/11/25 17:29 Not Given .ONCE ONE Ketotifen Fumarate 1 drop 08/10/25 20:50 08/15/25 20:29 Ketotifen Fumarate 0.025% Oph 5 Ml pbtl EYE-BOTH 1 drop BID PRN Administration allergies Lidocaine 1 patch 08/11/25 09:00 08/18/25 08:38 Lidocaine 4 % Patch Adh..Patch TRANSDERMA Not Given DAILY MARIA G Methadone HCl 28 mg 08/10/25 21:00 08/18/25 08:26 Methadone Hcl 20 Mg/2 Ml Oral.Conc PO 28 mg DAILY MARIA G Administration Naloxone HCl 8 mg 08/18/25 08:00 08/18/25 08:29 Naloxone Hcl Nasal Take Home 4 Mg [place] NOSTRILALT 08/18/25 08:01 8 mg ONCE ONE Administration Nicotine 21 mg 08/12/25 09:00 08/12/25 08:36 Nicotine 21 Mg Patch.Td24 TRANSDERMA Not Given DAILY MARIA G Omeprazole 20 mg 08/11/25 06:30 08/18/25 06:13 Omeprazole 20 Mg Capsule. PO 20 mg DAILY@0630 MARIA G Administration Tamsulosin HCl 0.4 mg 08/10/25 21:00 08/17/25 20:55 Tamsulosin Hcl 0.4 Mg Capsule PO 0.4 mg BEDTIME MARIA G Administration Trazodone HCl 50 mg 08/11/25 14:50 08/16/25 20:27 Trazodone Hcl 50 Mg Tablet PO 50 mg BEDTIME MRX1 PRN Administration Insomnia Vitamin D 50 mcg 08/10/25 21:00 08/18/25 08:28 Cholecalciferol (Vitamin D3) 25 Mcg Tablet PO 50 mcg DAILY MARIA G Administration Medical Decision Making Medical Decision Making MDM Narrative: 11:20 AM 08/10/2025 (Dr. Erik Montano): Patient is an expect from [facility] regarding worsening paranoia, delusions, the patient endorses depression, questions regarding whether he is compliant with his medications or knows how to take his medications when I spoke with the patient he told me that he is on 2 pills for depression anxiety he has been taking them and states that he had recent admission that helped him some but he feels that he can use more inpatient time. He is on methadone denies any other drug use no trauma no SI or HI. 5:48 PM 08/10/2025 (Dr. Erik Montano): Patient is going to be inpatient level of care bed search Time: 13:37 Date: 08/11/25 Provider: Enzo Ochoa MD Physician observation ended at 13:37. Patient admitted as inpatient to psychiatry. Differential Diagnosis Differential Diagnoses: The differential diagnosis associated with the presentation includes (SI, HI, depression, anxiety, substance use) Admission/Observation Consideration of admission/observation: Escalation of care including admission/observation considered Consult Healthcare Provider Management of the patient was discussed with: Behavioral Health Provider Lab Data MDM Lab Attestation statement: I reviewed the patient's lab results. 08/10/25 11:26 08/10/25 11:26 Labs: Lab Results 08/10/25 08/10/25 08/10/25 Range/Units 11:26 12:17 14:04 WBC 6.9 (4.8-10.8) X10*3/uL RBC 4.58 L (4.60-5.80) X10*6/uL Hgb 14.8 (14.0-18.0) g/dl Hct 43.5 (42.0-52.0) % MCV 95.0 (80.0-98.0) fL MCH 32.3 (27.0-33.0) pg MCHC 34.0 (31.0-36.0) g/dl RDW 12.0 (11.0-16.0) % Plt Count 179 D (160-400) X10*3/uL MPV 10.6 (9.4-12.4) fL Immature Gran % (Auto) 0.3 (0.0-0.4) % Neut % (Auto) 65.8 (45-73) % Lymph % (Auto) 23.5 (20-40) % [place] % (Auto) 6.6 (2-11) % Eos % (Auto) 3.5 (0-4) % Baso % (Auto) 0.3 (0-2) % Lymph # (Auto) 1.6 (1.2-4.9) X10*3/uL [place] # (Auto) 0.5 (0.1-1.2) X10*3/uL Eos # (Auto) 0.2 (0.0-0.4) X10*3/uL Baso # (Auto) 0.0 (0.0-0.2) X10*3/uL Abs Immat Gran (auto) 0.02 (0.00-0.03) X10*3/uL Absolute Neuts (auto) 4.6 (2.0-8.3) x10*3/uL Absolute Nucleated RBC 0.000 (0.0-0.012) X10*3/uL Nucleated RBC % (auto) 0.0 (0.0-0.2) /100WBC Sodium 138 (135-145) mmol/L Potassium 4.2 (3.3-5.1) mmol/L Chloride 101 (96-108) mmol/L Carbon Dioxide 30 H (22-29) mmol/L Anion Gap 11 L (12-20) BUN 14 (9-16) mg/dL Creatinine 0.90 (0.5-1.4) mg/dL Estim Creat Clear Calc 76.6 Estimated GFR > 60 POC Glucose 108 (60-115) mg/dL Random Glucose 101 (60-115) mg/dL Calcium 9.4 D (8.4-10.2) mg/dL Total Bilirubin 0.8 (0.0-1.0) mg/dL AST 33 (5-37) U/L ALT 64 H (0-40) U/L Alkaline Phosphatase 53 (39-117) U/L Total Protein 7.0 (6.5-8.0) g/dL Albumin 4.5 (3.5-5.0) g/dL Urine Color Yellow Urine Appearance Clear Urine pH 7.5 (5.0-9.0) Ur Specific [place] 1.010 (1.005-1.025) Urine Protein Negative (Neg-Trace) mg/dL Urine Glucose (UA) Negative (Negative) mg/dL Urine Ketones Negative (Negative) mg/dL Urine Blood Negative (Negative) Urine Nitrite Negative (Negative) Ur Leukocyte Esterase Negative (Negative) Salicylates < 5.0 L (15-30) mg/dL Urine Opiates Screen Not Detected (Not Detect) Ur Buprenorphine Scrn Not Detected (Not Detect) ng/mL Ur Oxycodone Screen Not Detected (Not Detect) ng/mL Urine Methadone Screen Positive H (Not Detect) ng/mL Urine Fentanyl Screen Not Detected (Not Detect) Acetaminophen < 3 (<30) mcg/mL Ur Barbiturates Screen Not Detected (Not Detect) Ur Phencyclidine Scrn Not Detected (Not Detect) Ur Amphetamines Screen Not Detected (Not Detect) U Benzodiazepines Scrn Not Detected (Not Detect) Urine Cocaine Screen Not Detected (Not Detect) U Marijuana (THC) Screen Not Detected (Not Detect) Ethyl Alcohol < 10 mg/dL Independent Interpretation I performed an independent interpretation of an: EKG (48 beats per minute, no QTC prolongation, no dysrhythmia) Independent Historian Clinical information obtained from an independent historian. History obtained from or confirmed by: EMS External Record Review External record reviewed: Inpatient record Social Determinants Patient?s care significantly limited by Social Determinants of Health including: Alcoholism and drug addiction in family and Problems related to primary support group Discharge Plan Discharge Clinical Impression: Anxiety and depression MDD (major depressive disorder) Qualifiers: Major depression recurrence: recurrent Active/Remission status: currently active Major depression episode severity: moderate Qualified Code(s): F33.1 - Major depressive disorder, recurrent, moderate Patient Disposition: Admitted As Inpatient Interventions: Admission Worksheet (ED) Last Done: 08/11/25 13:37 Discharge Date/Time: 08/11/25 14:04
--- NOTE | 2025-08-10 11:17 | ECG_ITS ---
Test Reason : check qtc Blood Pressure : */* mmHG Vent. Rate : 48 BPM Atrial Rate : 48 BPM P-R Int : 134 ms QRS Dur : 82 ms QT Int : 436 ms P-R-T Axes : 25 16 21 degrees QTcB Int : 389 ms Sinus bradycardia Nonspecific ST and T wave abnormality Abnormal ECG When compared with ECG of 05-Aug-2025 11:15, Nonspecific T wave abnormality, worse in Anterolateral leads Referred By: Erik Montano Electronically Signed By: JHONATAN SANTILLAN MD
[2025-08-10 11:30] LABS: MANUAL DIFF FLAG NO
[2025-08-10 11:33] LABS: Hematocrit 43.5 % (42.0-52.0); Hemoglobin 14.8 g/dl (14.0-18.0); Imm Gran Abs Auto 0.02 X10*3/uL (0.00-0.03); Imm Gran Pct Auto 0.3 % (0.0-0.4); Lymphocytes Absolute Auto 1.6 X10*3/uL (1.2-4.9); Mean Corpuscular HGB Conc 34.0 g/dl (31.0-36.0); Mean Corpuscular Hemoglobin 32.3 pg (27.0-33.0); Mean Corpuscular Volume 95.0 fL (80.0-98.0); NRBC Abs Auto 0.000 X10*3/uL (0.0-0.012); NRBC Pct Auto 0.0 /100WBC (0.0-0.2); Platelet Count 179 X10*3/uL (160-400); Red Blood Count 4.58 X10*6/uL (4.60-5.80); White Blood Count 6.9 X10*3/uL (4.8-10.8)
[2025-08-10 11:49] LABS: Alanine Aminotransferase 64 U/L (0-40); Albumin Level 4.5 g/dL (3.5-5.0); Alkaline Phosphatase 53 U/L (39-117); Anion Gap 11 (12-20); Aspartate Amino Transferase 33 U/L (5-37); Blood Urea Nitrogen 14 mg/dL (9-16); Calcium 9.4 mg/dL (8.4-10.2); Carbon Dioxide 30 mmol/L (22-29); Chloride 101 mmol/L (96-108); Creatinine Clr Calc Pharmacy 76.6; Estimated Glomerular Filt Rate > 60; Potassium 4.2 mmol/L (3.3-5.1); Sodium 138 mmol/L (135-145); Total Protein 7.0 g/dL (6.5-8.0)
[2025-08-10 11:50] LABS: Acetaminophen LAB < 3 mcg/mL (<30); Salicylate < 5.0 mg/dL (15-30)
[2025-08-10 14:12] LABS: Appearance Urine Clear; Glucose Urine UA Negative (Negative); PH 7.5 (5.0-9.0); Specific Gravity - Urine 1.010 (1.005-1.025)
[2025-08-10 14:22] LABS: Cannabinoid Screen Urine Not Detected (Not Detect)
--- NOTE | 2025-08-10 14:35 | PC.NURSE ---
med rec completed with patient using [place] interp. patient endorses 6/10 headache, ED provider informed
[2025-08-10 15:33] LABS: Glucose, Whole Blood 108 mg/dL (60-115)
[2025-08-10 15:43] VITALS: BP 120/71; PULSE 51; RESP 17; O2SAT 97
--- NOTE | 2025-08-10 17:22 | PC.NURSE ---
[facility] contacted for methadone dose, stated they would call back.
--- NOTE | 2025-08-10 17:55 | PC.NURSE ---
kay analyst programmer at [facility], states patient was last in clinic 08/05 for his 6 take home bottles. patients dose is 28 mg.
--- NOTE | 2025-08-10 18:52 | HE.PHANOTE ---
Addendum entered by Cat Macias RPh 08/10/25 21:06: RE METHADONE* Original Note: re [facility] Patients methadone verification form received. Patient is confirmed to [facility] [place] last dose taken was on 08/05, gv 6 take home bottles
[2025-08-10 20:42] VITALS: BP 118/60; PULSE 66; RESP 20; TEMP 36.3; O2SAT 97
--- NOTE | 2025-08-10 21:29 | PHA.MEDREC ---
Pharmacy Consult ? Medication Reconciliation Pharmacy has REVIEWED the medication reconciliation. Medications match claims except for several OTCs that patient could be buying over the counter.
[2025-08-10] MEDS: calcium polycarbophiL TABLET 1 TAB PO (21:57)
--- NOTE | 2025-08-10 22:00 | PC.NURSE ---
Assumed care at 1845. Spoken to with reforestation worker present. Patient presents as tearful with anxious mood. Pacing the milieu. Asking multiple staff and t/w for his HS medications. MD Ashby made aware the patient's med req was completed, awaiting orders. Medicated per MAR after pharmacy verification was completed. Refused HS scheduled Methadone. Pharmacist Danette Macias contacted t/w about Testosterone, patient unable to have somebody bring personal medication from home. Patient specific eye itch relief drops located on the Pyxis. Remains in behavioral control. 15 minute safety checks ongoing. Continue plan for IPLOC.
--- NOTE | 2025-08-11 00:53 | PC.NURSE ---
Spoken to with principal process engineer. Patient c/o 5/10 pain to bilateral flanks and lower back. Onset of today. Denies recent injury/chronic pain. Given PRN Tylenol, pending effectiveness.
[2025-08-11 06:35] VITALS: BP 108/60; PULSE 65; RESP 14; TEMP 36.3; O2SAT 96
--- NOTE | 2025-08-11 06:41 | PC.NURSE ---
Given AM scheduled Omeprazole. No apparent distress noted.
[2025-08-11] MEDS: Lidocaine 4 % Patch ADH..PATCH 1 PATCH TRANSDERMA (08:15)
[2025-08-11] MEDS: methADONE HCl 20 MG/2 ML ORAL.CONC 28 MG PO (08:15)
--- NOTE | 2025-08-11 09:08 | PC.NURSE ---
Assumed care, report received. Pt is calm and cooperative, he takes his meds and goes back to sleep.
[2025-08-11 15:50] VITALS: BMI 43.6
--- NOTE | 2025-08-11 17:47 | PC.ADMIT ---
John is a 55 y/o hungarian speaking male admitted from the pod on a CV with a dx of MDD at 1403. Pt had reported to [facility] in the community complaining of increased paranoia, anxiety and auditory hallucinations. Pt has been feeling like someone is after him, poisoning his coffee, and thinks there are cameras hidden in the [place]. Pt also believes his daughter wants to harm him. Pt was recently discharged from on 07/28/25 and reports taking medications since leaving. Pt was provided community services on discharge, but says he didn?t get to them. Pts mood is depressed with a blunted affect. Pt is A&O x3, calm and cooperative. TW interviewed the pt with the [employer] machine present. Pt denied and thought disturbance, AVH or paranoia when meeting with TW. Pt remained focused and thoughts were linear.? Pt is reporting that he ?just hasn't been feeling normal or good. The meds don?t seem to be working.? Pt denies SI with no plan to harm himself.? Pt reports disruptive sleep, and says it's been 4 days with no sleep. Pt has a hx of numerous medical concerns, HTN, BPH, GERD, Hepatitis, Murmur, and spinal pain. Tox screen positive for Methadone, pt on methadone and it has been verified. Pts goal is to ?get meds better and get home.? Pt reports no appetite disturbance. Skin check completed, skin intact. Pt placed on 15 minute safety checks.
[2025-08-11 17:48] VITALS: BP 132/61; PULSE 80; RESP 18; TEMP 36.2; O2SAT 96
--- NOTE | 2025-08-11 18:05 | PC.NURSE ---
PT HAD AGREED TO FLU VACCINE UPON ADMISSION, BUT REFUSED WHEN PRESENTED WITH IT.
[2025-08-11 20:00] VITALS: BP 95/51; PULSE 59; RESP 14; TEMP 36.6; O2SAT 95
[2025-08-11] MEDS: calcium polycarbophiL TABLET 1 TAB PO (20:56)
[2025-08-12] MEDS: methADONE HCl 20 MG/2 ML ORAL.CONC 28 MG PO (08:07)
[2025-08-12 08:13] VITALS: BP 102/62; PULSE 60; RESP 20; TEMP 36.7; O2SAT 98
[2025-08-12] MEDS: calcium polycarbophiL TABLET 1 TAB PO (08:31)
--- NOTE | 2025-08-12 08:39 | HO.PSYADMNOT ---
HPI Date of Service: 08/12/25 Chief Complaint: crisis Sources of Information: patient interviewed, chart reviewed and crisis/core team assessment reviewed HPI Subjective Notes: Rivera Warning and Conditional Voluntary Narrative: Patient is a 55 year old male with hx of MDD, JODY and opioid use d/o who was brought in via ambulance due to increased paranoia, anxiety and auditory hallucinations secondary to no specific triggering events. Per crisis report, patient was recently discharged from on 07/28/2025. Patient reports he has not been sleeping for the last 4 days. Patient's spouse expressed patient was worried someone was after him, his coffee contained poison and there was a hidden camera in the leung. Patient reports having lots of anxiety . He denied SI/HI/VH. Denies any substance use. Utox positive for methadone. History crack and heroin use however, reports he has not been using; last use was a year ago. During admission assessment, patient presents alert and oriented x3. Calm cooperative. biomedical analytical scientist present. Patient reports feeling depressed and anxious ; patient stated, I felt like I was taking the medications but not as prescribed. I forgot to take them and started feeling worse. I started feeling depression and anxiety . Patient reports he was having auditory hallucinations and paranoia, however, they stopped when he came to the unit. Patient currently denies SI/HI/VH/AH. Patient reports good appetite; poor sleep due to racing thoughts . Patient stated, I feel like the medications help me when I was taking them . Discussed referral to a visiting nurse to help with medication management; patient reports he would like to speak to his girlfriend prior to agreeing to having a VNA. Past Psychiatric History: Psychiatrist: Dr. Tracy ([facility]) Therapist Heather ([facility]) 2nd inpatient psychiatric admission. denies hx of SA/SIB. Medical Evaluation Reviewed: Yes [facility] Medical History Insomnia Paranoia Constipation Anemia Hx of substance abuse Smoker History of Helicobacter pylori infection Spinal pain Hypogonadism Erectile dysfunction Hx: UTI (urinary tract infection) BPH (benign prostatic hyperplasia) Hx of hepatitis C GERD (gastroesophageal reflux disease) Anxiety and depression HTN (hypertension) Murmur Surgical History Hx of cystoscopy Family History: unknown Social History: Lives with nephew. single. 3 adult kids. disability. highest level of education completed 7th grade. Substance History: hx of opioid and crack use. Trauma History: denies Diagnostics Vital Signs (24Hr): Vital Signs - 24 hr 08/11/25 17:48 08/11/25 20:00 08/12/25 08:13 Temperature 97.2 F 97.9 F 98.1 F Pulse Rate 80 59 60 Respiratory Rate 18 14 20 Blood Pressure 132/61 95/51 L 102/62 Pulse Oximetry 96 95 98 Oxygen Delivery Method Room Air Room Air Room Air BMI result Body Mass Index 43.6 Labs 08/10/25 11:26 08/10/25 11:26 Labs: Laboratory Results - last 48 hr 08/10/25 08/10/25 08/10/25 11:26 12:17 14:04 WBC 6.9 RBC 4.58 L Hgb 14.8 Hct 43.5 MCV 95.0 MCH 32.3 MCHC 34.0 RDW 12.0 Plt Count 179 D MPV 10.6 Immature Gran % (Auto) 0.3 Neut % (Auto) 65.8 Lymph % (Auto) 23.5 Cooper % (Auto) 6.6 Eos % (Auto) 3.5 Baso % (Auto) 0.3 Lymph # (Auto) 1.6 Cooper # (Auto) 0.5 Eos # (Auto) 0.2 Baso # (Auto) 0.0 Abs Immat Gran (auto) 0.02 Absolute Neuts (auto) 4.6 Absolute Nucleated RBC 0.000 Nucleated RBC % (auto) 0.0 Sodium 138 Potassium 4.2 Chloride 101 Carbon Dioxide 30 H Anion Gap 11 L BUN 14 Creatinine 0.90 Estim Creat Clear Calc 76.6 Estimated GFR > 60 POC Glucose 108 Random Glucose 101 Calcium 9.4 D Total Bilirubin 0.8 AST 33 ALT 64 H Alkaline Phosphatase 53 Total Protein 7.0 Albumin 4.5 Urine Color Yellow Urine Appearance Clear Urine pH 7.5 Ur Specific [place] 1.010 Urine Protein Negative Urine Glucose (UA) Negative Urine Ketones Negative Urine Blood Negative Urine Nitrite Negative Ur Leukocyte Esterase Negative Salicylates < 5.0 L Urine Opiates Screen Not Detected Ur Buprenorphine Scrn Not Detected Ur Oxycodone Screen Not Detected Urine Methadone Screen Positive H Urine Fentanyl Screen Not Detected Acetaminophen < 3 Ur Barbiturates Screen Not Detected Ur Phencyclidine Scrn Not Detected Ur Amphetamines Screen Not Detected U Benzodiazepines Scrn Not Detected Urine Cocaine Screen Not Detected U Marijuana (THC) Screen Not Detected Ethyl Alcohol < 10 Meds/Allergies Meds Home Medications ?Medication ?Instructions ?Recorded ?Confirmed ?Type cholecalciferol (vitamin D3) 50 50 mcg PO DAILY 06/30/20 08/10/25 History mcg (2,000 unit) capsule (Vitamin D3) pantoprazole 40 mg tablet,delayed 40 mg PO DAILY 04/10/25 08/10/25 History release calcium polycarbophil 625 mg 625 mg PO BID 07/14/25 08/10/25 History tablet (Fiber-Lax) ketotifen fumarate 0.025 % (0.035 1 drp ophthalmic (eye) BID PRN 07/14/25 08/10/25 History %) eye drops allergies rosuvastatin 10 mg tablet 10 mg PO DAILY 07/14/25 08/10/25 History lidocaine 5 % topical patch 1 - 2 patch topical DAILY 07/15/25 08/10/25 History methadone 10 mg/mL oral 28 mg PO DAILY 07/15/25 08/10/25 History concentrate (Methadone Intensol) Allergies Allergies Allergy/AdvReac Type Severity Reaction Status Date / Time SEAFOOD Allergy Severe ANAPHYLAXIS Uncoded 08/10/25 11:18 shellfish Allergy Severe Anaphylaxis Uncoded 08/10/25 11:18 Mental Status Exam Mental Status Exam Patient Appearance: Appropriate Patient Orientation: Person, Place, Time and Situation Level of Consciousness: Awake and Alert Patient Behavior: Appropriate, Cooperative and Good Eye Contact Mood Description: Depressed and Anxious Affect Description: Depressed Ability to Follow Directions: Good Speech Pattern: Clear Memory Description: Intact Hallucinations: None Delusions: Not Present Thought Process: Intact Thought Content: positive for Intact Assessment & Plan Assessment & Plan (1) MDD (major depressive disorder): Status: Acute Code(s): F32.9 - Major depressive disorder, single episode, unspecified (2) JODY (generalized anxiety disorder): Status: Acute Code(s): F41.1 - Generalized anxiety disorder (3) Opioid use disorder: Status: Acute Code(s): F11.90 - Opioid use, unspecified, uncomplicated Plan Patient is a 55 year old male with hx of MDD, JODY and opioid use d/o who was brought in via ambulance due to increased paranoia, anxiety and auditory hallucinations secondary to no specific triggering events. Plan: CV 15 minute safety checks obtain collateral Continue home medications encourage groups ? referral to VNA discharge planning Patient educated on: diagnosis and medication risk/benefits Reason for continued inpatient stay Substantial Risk for: med/psych decompensation Statement Statement: I have reviewed the history and physical and performed a pertinent examination on my patient. No changes have occurred unless specified. If the History and Physical was not performed prior to admission, the Hospitalist's service will be consulted for completing the admission physical. Time Spent With Patient Time: Total time managing care of this patient today _60___ minutes.
--- NOTE | 2025-08-12 12:14 | P.CONHOSP_ITS ---
History of Present Illness Data of Consult Service Date: 08/12/25 Primary Care Provider: [facility] Reason for consult: Medical management 55-year-old male with past medical history of anxiety and depression, major depressive disorder, opioid use disorder on methadone, BPH, GERD presented to [facility] for crisis management due to increase in paranoia, psychosis, anxiety depression and hallucinations. He presented to the ED and initial workup revealed no leukocytosis, no anemia, no electrolyte imbalances, no evidence of renal or liver dysfunction. Urinalysis without infection. Less than 10 of alcohol. EKG with no QTC prolongation, sinus Zack. Tox screen positive for methadone which is prescribed to him. On exam he is reporting cold symptoms. Patient reports nasal congestion, chest congestion, rhinitis. Denies fever or chills. Denies any shortness of breath, chest pain, abdominal pain, nausea vomiting or diarrhea. Denies any headache. Assisted with history collection and examination of patient by Louise electro mechanical technician. Review of Systems 2 Review of Systems: Patient has no acute medical complaints at this time All other systems are reviewed and are negative [facility] Medical History (Updated 08/12/25 @ 15:48 by Gely Her DNP) Insomnia Paranoia Constipation Anemia Hx of substance abuse Smoker History of Helicobacter pylori infection Spinal pain Hypogonadism Erectile dysfunction Hx: UTI (urinary tract infection) BPH (benign prostatic hyperplasia) Hx of hepatitis C GERD (gastroesophageal reflux disease) Anxiety and depression HTN (hypertension) Murmur Family History Mother Diabetes Surgical History Hx of cystoscopy Social History Household Members: Spouse Household Members Other:: Nephew Housing: Apartment Do you presently have visiting nurse or other home services: No Alcohol intake: former Patient Tobacco Use Status: Former Tobacco user Tobacco use type: Cigarette Smoked in Last 30 Days: No e-Cigarette/Vaping Use: Never Used Patient Interested in Nicotine Replacement: No Patient Given Instructions on How to Stop Smoking: Yes Date Education Initiated: 08/11/25 Second Hand Smoke Exposure: No Substance Use Type: Crack/Cocaine and Heroin Currently Displaying Signs/Symptoms of Drug Intoxication Withdrawal: No Have you been hit, kicked, punched, or otherwise hurt by someone within the past year? If so, by whom?: No Do you feel safe in your current relationship?: Yes Is there a partner from a previous relationship who is making you feel unsafe now?: No Are you made to feel afraid or neglected: No Advance Directives: No Advance Directives Information Provided: No Do you have thoughts of harming others: None Do you have a plan to hurt others: No Plan Recently lost weight without trying: No Eating poorly because of decreased appetite: No Nutrition Risks: No Nutritional Risk Poor oral hygiene: No service: No Current occupational status: unemployed Sexual orientation: Straight/Heterosexual Meds Allergies Allergy/AdvReac Type Severity Reaction Status Date / Time SEAFOOD Allergy Severe ANAPHYLAXIS Uncoded 08/10/25 11:18 shellfish Allergy Severe Anaphylaxis Uncoded 08/10/25 11:18 Active Medications: Current Medications Acetaminophen (Acetaminophen 325 Mg Tablet) 650 mg PO Q6H PRN PRN Reason: Headache/Pain, Scale 1-10 Last Admin: 08/11/25 16:25 Dose: 650 mg Al Hydroxide/Mg Hydroxide (Magnesium Hydrox/Alum Hydrox 30 Ml Oral.Susp) 30 ml PO Q6H PRN PRN Reason: Heartburn/Nausea Amitriptyline HCl (Amitriptyline Hcl 25 Mg Tablet) 25 mg PO BEDTIME [facility] Last Admin: 08/11/25 20:54 Dose: 25 mg Atorvastatin Calcium (Atorvastatin Calcium 40 Mg Tablet) 40 mg PO DAILY [facility] Last Admin: 08/12/25 08:31 Dose: 40 mg Bisacodyl (Bisacodyl 5 Mg Tablet.Dr) 10 mg PO BEDTIME [facility] Calcium Polycarbophil (Calcium Polycarbophil Tablet) 1 tab PO BID [facility] Last Admin: 08/12/25 08:31 Dose: 1 tab Diphenhydramine HCl (Diphenhydramine Hcl 25 Mg Capsule) 50 mg PO BID PRN PRN Reason: extrapyramidal effects/symptoms Docusate Sodium (Docusate Sodium 100 Mg Capsule) 100 mg PO BEDTIME PRN PRN Reason: Constipation Doxycycline Monohydrate (Doxycycline Monohydrate 100 Mg Capsule) 100 mg PO Q12H [facility] Last Admin: 08/12/25 08:32 Dose: 100 mg Famotidine (Famotidine 20 Mg Tablet) 20 mg PO DAILY PRN PRN Reason: GERD Fluvoxamine Maleate (Fluvoxamine Maleate 50 Mg Tablet) 50 mg PO BEDTIME [facility] Last Admin: 08/11/25 21:01 Dose: 50 mg Haloperidol (Haloperidol 1 Mg Tablet) 2 mg PO DAILY [facility] Last Admin: 08/12/25 08:32 Dose: 2 mg Haloperidol (Haloperidol 5 Mg Tablet) 5 mg PO BEDTIME [facility] Last Admin: 08/11/25 20:55 Dose: 5 mg Haloperidol (Haloperidol 5 Mg Tablet) 5 mg PO BID PRN PRN Reason: psychosis/agitation Hydroxyzine HCl (Hydroxyzine Hcl 25 Mg Tablet) 25 mg PO Q6H PRN PRN Reason: mild anxiety Ketotifen Fumarate (Ketotifen Fumarate 0.025% Oph 5 Ml Drpbtl) 1 drop EYE-BOTH BID PRN PRN Reason: allergies Lidocaine (Lidocaine 4 % Patch Adh..Patch) 1 patch TRANSDERMA DAILY [facility] Last Admin: 08/12/25 08:36 Dose: Not Given Magnesium Hydroxide (Milk Of Magnesia 30 Ml Oral.Susp) 30 ml PO DAILY PRN PRN Reason: Constipation Methadone HCl (Methadone Hcl 20 Mg/2 Ml Oral.Conc) 28 mg PO DAILY [facility] Last Admin: 08/12/25 08:07 Dose: 28 mg Nicotine (Nicotine 21 Mg Patch.Td24) 21 mg TRANSDERMA DAILY [facility] Last Admin: 08/12/25 08:36 Dose: Not Given Nicotine Polacrilex (Nicotine Polacrilex 2 Mg Gum) 4 mg BUCCAL Q2H PRN PRN Reason: Nicotine Cravings Non-Formulary Medication (Testosterone Cypionate) 200 mg IM Q2W [facility] Omeprazole (Omeprazole 20 Mg Capsule.Dr) 20 mg PO DAILY@0630 [facility] Last Admin: 08/12/25 06:35 Dose: 20 mg Tamsulosin HCl (Tamsulosin Hcl 0.4 Mg Capsule) 0.4 mg PO BEDTIME [facility] Last Admin: 08/11/25 20:55 Dose: 0.4 mg Trazodone HCl (Trazodone Hcl 50 Mg Tablet) 50 mg PO BEDTIME MRX1 PRN PRN Reason: Insomnia Last Admin: 08/11/25 20:54 Dose: 50 mg Vitamin D (Cholecalciferol (Vitamin D3) 25 Mcg Tablet) 50 mcg PO DAILY [facility] Last Admin: 08/12/25 08:32 Dose: 50 mcg Home Medications ?Medication ?Instructions ?Recorded ?Confirmed ?Last Taken ?Type cholecalciferol (vitamin D3) 50 50 mcg PO DAILY 08/10/25 08/10/25 History mcg (2,000 unit) capsule (Vitamin D3) pantoprazole 40 mg tablet,delayed 40 mg PO DAILY 04/1008/10/25 08/10/25 History release calcium polycarbophil 625 mg 625 mg PO BID 07/14/2508/10/25 History tablet (Fiber-Lax) ketotifen fumarate 0.025 % (0.035 1 drp ophthalmic (ey e) BID PRN 07/14/25 08/10/25 Unknown History %) eye drops allergies rosuvastatin 10 mg tablet 10 mg PO DAILY 07/14/2504/2708/10/25 History lidocaine 5 % topical patch 1 - 2 patch topical DAILY 07/15/25 08/10/25 08/04/25 History methadone 10 mg/mL oral 28 mg PO DAILY 07/15/2504/2708/10/25 History concentrate (Methadone Intensol) Physical Exam 2 Vital Signs and Narrative: Vital Signs: Last Vital Signs Temp 98.1 F 08/12/25 08:13 Pulse 60 08/12/25 08:13 Resp 20 08/12/25 08:13 BP 102/62 08/12/25 08:13 Pulse Ox 98 08/12/25 08:13 O2 Del Method Room Air 08/12/25 08:13 BMI result Body Mass Index 43.6 Alert and oriented X3, calm and cooperative. Answers questions. Neuro: CN II-X11 intact, no deficits, visual acuity intact EYES: PERRLA, EOM intact ENT: Hearing intact, MMM Cardiac: S1 S2 RRR, No ectopy Pulmonary: lungs clear to auscultation, No increased WOB. Abdominal: BS active in all 4 quadrants, no guarding or tenderness MSK: Strength 5/5 upper and lower extremities : Deferred Extremities: No edema in lower extremities Psych: Mood stable, Quiet and cooperative. Skin: Warm and dry, Intact Results Labs 08/10/25 11:26 08/10/25 11:26 Assessment and Plan (1) HTN (hypertension): Status: Acute Plan 55 year old male with PMH as noted below presented to ED with anxiety and increased paranoia. Admitted to inpatient psych for further care and treatment. Major depressive disorder/Insomnia/Paranoia Treatment per psychiatric team. Cold symptoms We will rule out flu/RSV/COVID Lung sounds are clear, no increased work of breathing. Chest x-ray not indicated at this time Mucinex b.i.d., ocean mist for nasal congestion. 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 Workup did not reveal active infection Thank you for allowing me to participate in the care of this patient. Will follow with you, please notify medical provider with any changes in condition or concerns.
[2025-08-12] MEDS: Throat Lozenge, Medicated LOZENGE 1 LOZENGE MUCOUS MEM (16:35)
[2025-08-12] MEDS: Magnesium Hydrox/Alum Hydrox 30 ML ORAL.SUSP PO (16:35)
[2025-08-12 16:48] LABS: Resp Syncy Virus RNA Qual PCR NEGATIVE (Negative); SARS COV2 PCR INHOUSE NEGATIVE (Negative)
[2025-08-12 19:40] VITALS: BP 100/54; PULSE 72; RESP 17; TEMP 35.8; O2SAT 96
[2025-08-12] MEDS: guaiFENesin DM 600/30 1 TAB TAB.ER.12H PO (20:49)
[2025-08-13 07:50] VITALS: BP 95/56; PULSE 64; RESP 20; TEMP 36.8; O2SAT 96
--- NOTE | 2025-08-13 09:46 | P.PNPSI_ITS ---
Subjective Subjective Date of Service: 08/13/25 Reason For Visit: crisis Subjective Notes: Conditional Voluntary Interim History: Active on unit. keeping to self. senior it recruiter present. Patient reports feeling he is improving; pt stated, I feel like my mind is much more clear with the medication . Patient reports he spoke with his girlfriend and he agrees to having a VNA to help him with medication administration. He reports no longer having paranoia ; denies SI/HI/VH/AH. Plan to discharge early next week if continues to improve; pt aware. continue tx plan. Medication Compliance: Yes Side effects from medications: No Attending Groups: No Mental Status Exam Mental Status Exam Narrative: Pt is alert and oriented; behavior is cooperative and calm; dressed in casual attire; mood is described as improving ; eye contact appropriate; Speech is normal rate, volume and not pressured; thought process is organized, future oriented; Thought content is on tx; denies SI/HI/VH/AH. Diagnostics Vital Signs (24Hr): Vital Signs - 24 hr 08/12/25 19:40 08/13/25 07:50 Temperature 96.4 F L 98.2 F Pulse Rate 72 64 Respiratory Rate 17 20 Blood Pressure 100/54 L 95/56 L Pulse Oximetry 96 96 Oxygen Delivery Method Room Air Room Air BMI result Body Mass Index 43.6 Labs 08/10/25 11:26 08/10/25 11:26 Labs: Laboratory Results - last 48 hr 08/12/25 15:56 Influenza Type A (PCR) NEGATIVE Influenza Type B (PCR) NEGATIVE RSV RNA Qual (PCR) NEGATIVE SARS-CoV-2 RNA (RT-PCR) NEGATIVE Medications Medications Current Medications Acetaminophen (Acetaminophen 325 Mg Tablet) 975 mg PO Q6H PRN PRN Reason: Headache/Pain, Scale 1-10 Al Hydroxide/Mg Hydroxide (Magnesium Hydrox/Alum Hydrox 30 Ml Oral.Susp) 30 ml PO Q6H PRN PRN Reason: Heartburn/Nausea Last Admin: 08/12/25 16:35 Dose: 30 ml Amitriptyline HCl (Amitriptyline Hcl 25 Mg Tablet) 25 mg PO BEDTIME [facility] Last Admin: 08/12/25 20:49 Dose: 25 mg Atorvastatin Calcium (Atorvastatin Calcium 40 Mg Tablet) 40 mg PO DAILY [facility] Last Admin: 08/12/25 08:31 Dose: 40 mg Benzocaine (Throat Lozenge, Medicated Lozenge) 1 lozenge MUCOUS MEM Q2H PRN PRN Reason: Sore Throat Last Admin: 08/12/25 16:35 Dose: 1 lozenge Bisacodyl (Bisacodyl 5 Mg Tablet.Dr) 10 mg PO BEDTIME [facility] Last Admin: 08/12/25 20:49 Dose: 10 mg Calcium Polycarbophil (Calcium Polycarbophil Tablet) 1 tab PO BID [facility] Last Admin: 08/12/25 20:49 Dose: Not Given Diphenhydramine HCl (Diphenhydramine Hcl 25 Mg Capsule) 50 mg PO BID PRN PRN Reason: extrapyramidal effects/symptoms Docusate Sodium (Docusate Sodium 100 Mg Capsule) 100 mg PO BEDTIME PRN PRN Reason: Constipation Doxycycline Monohydrate (Doxycycline Monohydrate 100 Mg Capsule) 100 mg PO Q12H [facility] Last Admin: 08/12/25 20:49 Dose: 100 mg Famotidine (Famotidine 20 Mg Tablet) 20 mg PO DAILY PRN PRN Reason: GERD Fluvoxamine Maleate (Fluvoxamine Maleate 50 Mg Tablet) 50 mg PO BEDTIME [facility] Last Admin: 08/12/25 20:49 Dose: 50 mg Guaifenesin/Dextromethorphan (Guaifenesin Dm 600/30 1 Tab Tab.Er.12h) 1 tab PO BID [facility] Stop: 08/19/25 20:59 Last Admin: 08/12/25 20:49 Dose: 1 tab Haloperidol (Haloperidol 1 Mg Tablet) 2 mg PO DAILY [facility] Last Admin: 08/12/25 08:32 Dose: 2 mg Haloperidol (Haloperidol 5 Mg Tablet) 5 mg PO BEDTIME [facility] Last Admin: 08/12/25 20:49 Dose: 5 mg Haloperidol (Haloperidol 5 Mg Tablet) 5 mg PO BID PRN PRN Reason: psychosis/agitation Last Admin: 08/12/25 13:10 Dose: 5 mg Hydroxyzine HCl (Hydroxyzine Hcl 25 Mg Tablet) 25 mg PO Q6H PRN PRN Reason: mild anxiety Last Admin: 08/12/25 13:10 Dose: 25 mg Ibuprofen (Ibuprofen 600 Mg Tablet) 600 mg PO Q6H PRN PRN Reason: Headache Last Admin: 08/13/25 00:12 Dose: 600 mg Ketotifen Fumarate (Ketotifen Fumarate 0.025% Oph 5 Ml Drpbtl) 1 drop EYE-BOTH BID PRN PRN Reason: allergies Lidocaine (Lidocaine 4 % Patch Adh..Patch) 1 patch TRANSDERMA DAILY [facility] Last Admin: 08/12/25 08:36 Dose: Not Given Magnesium Hydroxide (Milk Of Magnesia 30 Ml Oral.Susp) 30 ml PO DAILY PRN PRN Reason: Constipation Methadone HCl (Methadone Hcl 20 Mg/2 Ml Oral.Conc) 28 mg PO DAILY [facility] Last Admin: 08/12/25 08:07 Dose: 28 mg Non-Formulary Medication (Testosterone Cypionate) 200 mg IM Q2W [facility] Omeprazole (Omeprazole 20 Mg Capsule.Dr) 20 mg PO DAILY@0630 [facility] Last Admin: 08/13/25 06:33 Dose: 20 mg Sodium Chloride (Sodium Chloride 0.65 % Nasal 44 Ml Sprbtl) 1 spray NOSTRIL-B Q2H PRN PRN Reason: Nasal congestion Tamsulosin HCl (Tamsulosin Hcl 0.4 Mg Capsule) 0.4 mg PO BEDTIME [facility] Last Admin: 08/12/25 20:49 Dose: 0.4 mg Trazodone HCl (Trazodone Hcl 50 Mg Tablet) 50 mg PO BEDTIME MRX1 PRN PRN Reason: Insomnia Last Admin: 08/11/25 20:54 Dose: 50 mg Vitamin D (Cholecalciferol (Vitamin D3) 25 Mcg Tablet) 50 mcg PO DAILY [facility] Last Admin: 08/12/25 08:32 Dose: 50 mcg Allergies Allergies Allergy/AdvReac Type Severity Reaction Status Date / Time SEAFOOD Allergy Severe ANAPHYLAXIS Uncoded 08/10/25 11:18 shellfish Allergy Severe Anaphylaxis Uncoded 08/10/25 11:18 Assessment & Plan Assessment & Plan (1) MDD (major depressive disorder): Status: Acute Code(s): F32.9 - Major depressive disorder, single episode, unspecified (2) JODY (generalized anxiety disorder): Status: Acute Code(s): F41.1 - Generalized anxiety disorder (3) Opioid use disorder: Status: Acute Code(s): F11.90 - Opioid use, unspecified, uncomplicated (4) HTN (hypertension): Status: Acute Code(s): I10 - Essential (primary) hypertension Plan Patient is a 55 year old male with hx of MDD, JODY and opioid use d/o who was brought in via ambulance due to increased paranoia, anxiety and auditory hallucinations secondary to no specific triggering events. Plan: CV 15 minute safety checks obtain collateral Continue home medications encourage groups ? referral to VNA discharge planning 08/13: Active on unit. keeping to self. senior it recruiter present. Patient reports feeling he is improving; pt stated, I feel like my mind is much more clear with the medication . Patient reports he spoke with his girlfriend and he agrees to having a VNA to help him with medication administration. He reports no longer having paranoia ; denies SI/HI/VH/AH. Plan to discharge early next week if continues to improve; pt aware. continue tx plan. Patient educated on: diagnosis, medication risk/benefits and therapeutic strategies Reason for continued inpatient stay Substantial Risk for: med/psych decompensation Time Spent With Patient Time: Total time managing care of this patient today __20__ minutes.
[2025-08-13] MEDS: methADONE HCl 20 MG/2 ML ORAL.CONC 28 MG PO (10:09)
[2025-08-13] MEDS: guaiFENesin DM 600/30 1 TAB TAB.ER.12H PO ×2 (10:12→20:53)
[2025-08-13] MEDS: calcium polycarbophiL TABLET 1 TAB PO (10:12)
[2025-08-13 19:58] VITALS: RESP 18
[2025-08-14] MEDS: methADONE HCl 20 MG/2 ML ORAL.CONC 28 MG PO (08:21)
[2025-08-14 08:57] VITALS: BP 106/61; PULSE 61; RESP 16; TEMP 36.7; O2SAT 97
[2025-08-14] MEDS: calcium polycarbophiL TABLET 1 TAB PO (09:01)
[2025-08-14] MEDS: guaiFENesin DM 600/30 1 TAB TAB.ER.12H PO (09:02)
--- NOTE | 2025-08-14 10:05 | HO.PSYCHPN ---
Subjective Subjective Date of Service: 08/14/25 Reason For Visit: crisis Subjective Notes: Conditional Voluntary Interim History: roller stainer present. Patient reports he feels like I'm getting better ; denies SI/HI/VH/AH. He reports sleeping well last night. denies any issues at this time. Plan to discharge Sunday; pt aware. continue tx plan. Medication Compliance: Yes Side effects from medications: No Attending Groups: Intermittent Mental Status Exam Mental Status Exam Narrative: Pt is alert and oriented; behavior is cooperative and calm; dressed in casual attire; mood is described as better ; eye contact appropriate; Speech is normal rate, volume and not pressured; thought process is organized, future oriented; Thought content is on tx; denies SI/HI/VH/AH. Diagnostics Vital Signs (24Hr): Vital Signs - 24 hr 08/13/25 19:58 08/14/25 08:57 Temperature 98.1 F Pulse Rate 61 Respiratory Rate 18 16 Blood Pressure 106/61 Pulse Oximetry 97 Oxygen Delivery Method Room Air BMI result Body Mass Index 43.6 Labs 08/10/25 11:26 08/10/25 11:26 Labs: Laboratory Results - last 48 hr 08/12/25 15:56 Influenza Type A (PCR) NEGATIVE Influenza Type B (PCR) NEGATIVE RSV RNA Qual (PCR) NEGATIVE SARS-CoV-2 RNA (RT-PCR) NEGATIVE Medications Medications Current Medications Acetaminophen (Acetaminophen 325 Mg Tablet) 975 mg PO Q6H PRN PRN Reason: Headache/Pain, Scale 1-10 Al Hydroxide/Mg Hydroxide (Magnesium Hydrox/Alum Hydrox 30 Ml Oral.Susp) 30 ml PO Q6H PRN PRN Reason: Heartburn/Nausea Last Admin: 08/12/25 16:35 Dose: 30 ml Amitriptyline HCl (Amitriptyline Hcl 25 Mg Tablet) 25 mg PO BEDTIME MARIA G Last Admin: 08/13/25 20:54 Dose: 25 mg Atorvastatin Calcium (Atorvastatin Calcium 40 Mg Tablet) 40 mg PO DAILY MARIA G Last Admin: 08/14/25 09:02 Dose: 40 mg Benzocaine (Throat Lozenge, Medicated Lozenge) 1 lozenge MUCOUS MEM Q2H PRN PRN Reason: Sore Throat Last Admin: 08/12/25 16:35 Dose: 1 lozenge Bisacodyl (Bisacodyl 5 Mg Tablet.Dr) 10 mg PO BEDTIME [facility]IA G Last Admin: 08/13/25 20:53 Dose: 10 mg Calcium Polycarbophil (Calcium Polycarbophil Tablet) 1 tab PO BID [facility] Last Admin: 08/14/25 09:01 Dose: 1 tab Diphenhydramine HCl (Diphenhydramine Hcl 25 Mg Capsule) 50 mg PO BID PRN PRN Reason: extrapyramidal effects/symptoms Docusate Sodium (Docusate Sodium 100 Mg Capsule) 100 mg PO BEDTIME PRN PRN Reason: Constipation Doxycycline Monohydrate (Doxycycline Monohydrate 100 Mg Capsule) 100 mg PO Q12H [facility] Last Admin: 08/14/25 09:02 Dose: 100 mg Famotidine (Famotidine 20 Mg Tablet) 20 mg PO DAILY PRN PRN Reason: GERD Fluvoxamine Maleate (Fluvoxamine Maleate 50 Mg Tablet) 50 mg PO BEDTIME [facility] Last Admin: 08/13/25 20:54 Dose: 50 mg Guaifenesin/Dextromethorphan (Guaifenesin Dm 600/30 1 Tab Tab.Er.12h) 1 tab PO BID [facility] Stop: 08/19/25 20:59 Last Admin: 08/14/25 09:02 Dose: 1 tab Haloperidol (Haloperidol 1 Mg Tablet) 2 mg PO DAILY [facility] Last Admin: 08/14/25 09:02 Dose: 2 mg Haloperidol (Haloperidol 5 Mg Tablet) 5 mg PO BEDTIME [facility] Last Admin: 08/13/25 20:54 Dose: 5 mg Haloperidol (Haloperidol 5 Mg Tablet) 5 mg PO BID PRN PRN Reason: psychosis/agitation Last Admin: 08/12/25 13:10 Dose: 5 mg Hydroxyzine HCl (Hydroxyzine Hcl 25 Mg Tablet) 25 mg PO Q6H PRN PRN Reason: mild anxiety Last Admin: 08/12/25 13:10 Dose: 25 mg Ibuprofen (Ibuprofen 600 Mg Tablet) 600 mg PO Q6H PRN PRN Reason: Headache Last Admin: 08/13/25 00:12 Dose: 600 mg Ketotifen Fumarate (Ketotifen Fumarate 0.025% Oph 5 Ml Drpbtl) 1 drop EYE-BOTH BID PRN PRN Reason: allergies Lidocaine (Lidocaine 4 % Patch Adh..Patch) 1 patch TRANSDERMA DAILY [facility] Last Admin: 08/14/25 09:05 Dose: Not Given Magnesium Hydroxide (Milk Of Magnesia 30 Ml Oral.Susp) 30 ml PO DAILY PRN PRN Reason: Constipation Methadone HCl (Methadone Hcl 20 Mg/2 Ml Oral.Conc) 28 mg PO DAILY [facility] Last Admin: 08/14/25 08:21 Dose: 28 mg Non-Formulary Medication (Testosterone Cypionate) 200 mg IM Q2W [facility] Omeprazole (Omeprazole 20 Mg Capsule.Dr) 20 mg PO DAILY@0630 [facility] Last Admin: 08/14/25 06:14 Dose: 20 mg Sodium Chloride (Sodium Chloride 0.65 % Nasal 44 Ml Sprbtl) 1 spray NOSTRIL-B Q2H PRN PRN Reason: Nasal congestion Tamsulosin HCl (Tamsulosin Hcl 0.4 Mg Capsule) 0.4 mg PO BEDTIME [facility] Last Admin: 08/13/25 20:54 Dose: 0.4 mg Trazodone HCl (Trazodone Hcl 50 Mg Tablet) 50 mg PO BEDTIME MRX1 PRN PRN Reason: Insomnia Last Admin: 08/11/25 20:54 Dose: 50 mg Vitamin D (Cholecalciferol (Vitamin D3) 25 Mcg Tablet) 50 mcg PO DAILY [facility] Last Admin: 08/14/25 09:02 Dose: 50 mcg Allergies Allergies Allergy/AdvReac Type Severity Reaction Status Date / Time SEAFOOD Allergy Severe ANAPHYLAXIS Uncoded 08/10/25 11:18 shellfish Allergy Severe Anaphylaxis Uncoded 08/10/25 11:18 Assessment & Plan Assessment & Plan (1) MDD (major depressive disorder): Status: Acute Code(s): F32.9 - Major depressive disorder, single episode, unspecified (2) JODY (generalized anxiety disorder): Status: Acute Code(s): F41.1 - Generalized anxiety disorder (3) Opioid use disorder: Status: Acute Code(s): F11.90 - Opioid use, unspecified, uncomplicated (4) HTN (hypertension): Status: Acute Code(s): I10 - Essential (primary) hypertension Plan Patient is a 55 year old male with hx of MDD, JODY and opioid use d/o who was brought in via ambulance due to increased paranoia, anxiety and auditory hallucinations secondary to no specific triggering events. Plan: CV 15 minute safety checks obtain collateral Continue home medications encourage groups ? referral to VNA discharge planning 08/13: Active on unit. keeping to self. roller stainer present. Patient reports feeling he is improving; pt stated, I feel like my mind is much more clear with the medication . Patient reports he spoke with his girlfriend and he agrees to having a VNA to help him with medication administration. He reports no longer having paranoia ; denies SI/HI/VH/AH. Plan to discharge early next week if continues to improve; pt aware. continue tx plan. 08/14: roller stainer present. Patient reports he feels like I'm getting better ; denies SI/HI/VH/AH. He reports sleeping well last night. denies any issues at this time. Plan to discharge Sunday; pt aware. continue tx plan. Patient educated on: diagnosis and medication risk/benefits Reason for continued inpatient stay Substantial Risk for: med/psych decompensation Time Spent With Patient Time: Total time managing care of this patient today _20___ minutes.
[2025-08-14 20:35] VITALS: BP 107/57; PULSE 71; RESP 14; TEMP 36.8; O2SAT 96
--- NOTE | 2025-08-15 07:00 | PC.NURSE ---
refusing AM prilosec. will leave on NOV.
[2025-08-15] MEDS: methADONE HCl 20 MG/2 ML ORAL.CONC 28 MG PO (08:01)
[2025-08-15 08:48] VITALS: BP 120/60; PULSE 65; RESP 14; TEMP 36.5; O2SAT 96
[2025-08-15] MEDS: guaiFENesin DM 600/30 1 TAB TAB.ER.12H PO ×2 (08:50→20:19)
[2025-08-15] MEDS: calcium polycarbophiL TABLET 1 TAB PO ×2 (08:51→20:19)
--- NOTE | 2025-08-15 12:18 | P.PNPSI_ITS ---
Subjective Subjective Date of Service: 08/15/25 Reason For Visit: crisis Subjective Notes: Conditional Voluntary Healthcare Proxy: No Guardianship: No Medical Problems Affecting Mental Status: No Interim History: Seen with overhead line worker, and team nurse. Cooperative and guarded. He states that he is feeling good. He states that he is here because he was feeling bad, unbalanced with the medications and wondering if something was wrong. He has been here he estimates for 5 days, he reports feeling better, he is walking good and with more strength. He states that the voices are like in a movie or a dream. He endorses hearing them today, they are not bad in his estimation. He reports diffuse joint pain that wakes him up at times. About 6 months. Patient denies suicidal ideation, homicidal ideation, visual hallucinations. Medication Compliance: Intermittent Side effects from medications: No Attending Groups: No Review of Systems Acute medical concerns: No Medical Review of Systems: unchanged Mental Status Exam Mental Status Exam Narrative: Patient Appearance: Well Groomed, adequate hygiene Patient Behavior: Appropriate Level of Consciousness: Awake, alert Patient Orientation: Person, Place and Time Memory: grossly intact to recent events Psychomotor: no agitation or slowing Speech: normal rate, tone, volume Mood: ?okay? Affect: appropriate range Thought Process: Goal Oriented Thought Content: denies SI/HI; focused on treatment questions Hallucinations: Denies; does not appear preoccupied Delusions: None evinced Insight: impaired Judgment: impaired Impulsivity: low Diagnostics Vital Signs (24Hr): Vital Signs - 24 hr 08/14/25 20:35 08/15/25 08:48 Temperature 98.2 F 97.7 F Pulse Rate 71 65 Respiratory Rate 14 14 Blood Pressure 107/57 L 120/60 Pulse Oximetry 96 96 Oxygen Delivery Method Room Air Room Air BMI result Body Mass Index 43.6 Labs 08/10/25 11:26 08/10/25 11:26 Medications Medications Current Medications Acetaminophen (Acetaminophen 325 Mg Tablet) 975 mg PO Q6H PRN PRN Reason: Headache/Pain, Scale 1-10 Al Hydroxide/Mg Hydroxide (Magnesium Hydrox/Alum Hydrox 30 Ml Oral.Susp) 30 ml PO Q6H PRN PRN Reason: Heartburn/Nausea Last Admin: 08/12/25 16:35 Dose: 30 ml Amitriptyline HCl (Amitriptyline Hcl 25 Mg Tablet) 25 mg PO BEDTIME MARIA G Last Admin: 08/14/25 23:02 Dose: Not Given Atorvastatin Calcium (Atorvastatin Calcium 40 Mg Tablet) 40 mg PO DAILY [facility] Last Admin: 08/15/25 08:51 Dose: 40 mg Benzocaine (Throat Lozenge, Medicated Lozenge) 1 lozenge MUCOUS MEM Q2H PRN PRN Reason: Sore Throat Last Admin: 08/12/25 16:35 Dose: 1 lozenge Bisacodyl (Bisacodyl 5 Mg Tablet.Dr) 10 mg PO BEDTIME [facility] Last Admin: 08/14/25 23:02 Dose: Not Given Calcium Polycarbophil (Calcium Polycarbophil Tablet) 1 tab PO BID [facility] Last Admin: 08/15/25 08:51 Dose: 1 tab Diphenhydramine HCl (Diphenhydramine Hcl 25 Mg Capsule) 50 mg PO BID PRN PRN Reason: extrapyramidal effects/symptoms Docusate Sodium (Docusate Sodium 100 Mg Capsule) 100 mg PO BEDTIME PRN PRN Reason: Constipation Doxycycline Monohydrate (Doxycycline Monohydrate 100 Mg Capsule) 100 mg PO Q12H [facility] Last Admin: 08/15/25 08:51 Dose: 100 mg Famotidine (Famotidine 20 Mg Tablet) 20 mg PO DAILY PRN PRN Reason: GERD Fluvoxamine Maleate (Fluvoxamine Maleate 50 Mg Tablet) 50 mg PO BEDTIME [facility] Last Admin: 08/14/25 23:03 Dose: Not Given Guaifenesin/Dextromethorphan (Guaifenesin Dm 600/30 1 Tab Tab.Er.12h) 1 tab PO BID [facility] Stop: 08/19/25 20:59 Last Admin: 08/15/25 08:50 Dose: 1 tab Haloperidol (Haloperidol 1 Mg Tablet) 2 mg PO DAILY [facility] Last Admin: 08/15/25 08:51 Dose: 2 mg Haloperidol (Haloperidol 5 Mg Tablet) 5 mg PO BEDTIME [facility] Last Admin: 08/14/25 23:18 Dose: Not Given Haloperidol (Haloperidol 5 Mg Tablet) 5 mg PO BID PRN PRN Reason: psychosis/agitation Last Admin: 08/12/25 13:10 Dose: 5 mg Hydroxyzine HCl (Hydroxyzine Hcl 25 Mg Tablet) 25 mg PO Q6H PRN PRN Reason: mild anxiety Last Admin: 08/12/25 13:10 Dose: 25 mg Ibuprofen (Ibuprofen 600 Mg Tablet) 600 mg PO Q6H PRN PRN Reason: Headache Last Admin: 08/13/25 00:12 Dose: 600 mg Ketotifen Fumarate (Ketotifen Fumarate 0.025% Oph 5 Ml Drpbtl) 1 drop EYE-BOTH BID PRN PRN Reason: allergies Lidocaine (Lidocaine 4 % Patch Adh..Patch) 1 patch TRANSDERMA DAILY [facility] Last Admin: 08/15/25 08:56 Dose: Not Given Magnesium Hydroxide (Milk Of Magnesia 30 Ml Oral.Susp) 30 ml PO DAILY PRN PRN Reason: Constipation Methadone HCl (Methadone Hcl 20 Mg/2 Ml Oral.Conc) 28 mg PO DAILY [facility] Last Admin: 08/15/25 08:01 Dose: 28 mg Non-Formulary Medication (Testosterone Cypionate) 200 mg IM Q2W [facility] Omeprazole (Omeprazole 20 Mg Capsule.Dr) 20 mg PO DAILY@0630 [facility] Last Admin: 08/15/25 08:50 Dose: 20 mg Sodium Chloride (Sodium Chloride 0.65 % Nasal 44 Ml Sprbtl) 1 spray NOSTRIL-B Q2H PRN PRN Reason: Nasal congestion Tamsulosin HCl (Tamsulosin Hcl 0.4 Mg Capsule) 0.4 mg PO BEDTIME [facility] Last Admin: 08/14/25 23:18 Dose: Not Given Trazodone HCl (Trazodone Hcl 50 Mg Tablet) 50 mg PO BEDTIME MRX1 PRN PRN Reason: Insomnia Last Admin: 08/11/25 20:54 Dose: 50 mg Vitamin D (Cholecalciferol (Vitamin D3) 25 Mcg Tablet) 50 mcg PO DAILY [facility] Last Admin: 08/15/25 08:50 Dose: 50 mcg Allergies Allergies Allergy/AdvReac Type Severity Reaction Status Date / Time SEAFOOD Allergy Severe ANAPHYLAXIS Uncoded 08/10/25 11:18 shellfish Allergy Severe Anaphylaxis Uncoded 08/10/25 11:18 Assessment & Plan Assessment & Plan (1) MDD (major depressive disorder): Status: Acute Code(s): F32.9 - Major depressive disorder, single episode, unspecified (2) JODY (generalized anxiety disorder): Status: Acute Code(s): F41.1 - Generalized anxiety disorder (3) Opioid use disorder: Status: Acute Code(s): F11.90 - Opioid use, unspecified, uncomplicated (4) HTN (hypertension): Status: Acute Code(s): I10 - Essential (primary) hypertension Plan Patient is a 55 year old male with hx of MDD, JODY and opioid use d/o who was brought in via ambulance due to increased paranoia, anxiety and auditory hallucinations secondary to no specific triggering events. Plan: CV 15 minute safety checks obtain collateral Continue home medications encourage groups ? referral to VNA discharge planning 08/13: Active on unit. keeping to self. maple products maker present. Patient reports feeling he is improving; pt stated, I feel like my mind is much more clear with the medication . Patient reports he spoke with his girlfriend and he agrees to having a VNA to help him with medication administration. He reports no longer having paranoia ; denies SI/HI/VH/AH. Plan to discharge early next week if continues to improve; pt aware. continue tx plan. 08/14: maple products maker present. Patient reports he feels like I'm getting better ; denies SI/HI/VH/AH. He reports sleeping well last night. denies any issues at this time. Plan to discharge Sunday; pt aware. continue tx plan. 08/15 - no changes today, monitor chronic joint pain, consider etiologies Patient educated on: diagnosis and medication risk/benefits Informed Consent: understands Reason for continued inpatient stay Substantial Risk for: inability to function Time Spent With Patient Time: Total time managing care of this patient today __15__ minutes.
[2025-08-15 20:00] VITALS: BP 120/68; PULSE 82; RESP 15; TEMP 37; O2SAT 100
[2025-08-15] MEDS: Ketotifen Fumarate 0.025% Oph 5 ML DRPBTL 1 DROP EYE-BOTH (20:29)
[2025-08-16] MEDS: methADONE HCl 20 MG/2 ML ORAL.CONC 28 MG PO (08:07)
[2025-08-16 08:30] VITALS: BP 134/78; PULSE 106; RESP 18; TEMP 36.4; O2SAT 98
[2025-08-16] MEDS: guaiFENesin DM 600/30 1 TAB TAB.ER.12H PO ×2 (08:36→20:28)
[2025-08-16] MEDS: calcium polycarbophiL TABLET 1 TAB PO ×2 (08:36→20:28)
--- NOTE | 2025-08-16 12:09 | HO.PSYCHPN ---
Subjective Subjective Date of Service: 08/16/25 Reason For Visit: crisis Subjective Notes: Conditional Voluntary Healthcare Proxy: No Guardianship: No Medical Problems Affecting Mental Status: No Interim History: Seen with conference interpreter. Good...mood is regular but I don't have strength. He states the joint pain is worse today, all of his joints all over his body, but his knees feel the worst. He is taking Motrin. He was ambivalent about titrating dosage of Ibuprofen but eventually accepting that this is an appropriate plan. He voiced concern about kidney and liver function, labs were reviewed with him, education provided. Medication Compliance: Intermittent Side effects from medications: No Attending Groups: No Review of Systems Acute medical concerns: No Medical Review of Systems: unchanged Mental Status Exam Mental Status Exam Narrative: Patient Appearance: Well Groomed, adequate hygiene Patient Behavior: Appropriate Level of Consciousness: Awake, alert Patient Orientation: Person, Place and Time Memory: grossly intact to recent events Psychomotor: no agitation or slowing Speech: normal rate, tone, volume Mood: ?okay? Affect: appropriate range Thought Process: Goal Oriented Thought Content: denies SI/HI; focused on treatment questions Hallucinations: Denies; does not appear preoccupied Delusions: None evinced Insight: impaired Judgment: impaired Impulsivity: low Diagnostics Vital Signs (24Hr): Vital Signs - 24 hr 08/15/25 20:00 08/16/25 08:30 Temperature 98.6 F 97.6 F Pulse Rate 82 106 H Respiratory Rate 15 18 Blood Pressure 120/68 134/78 Pulse Oximetry 100 98 Oxygen Delivery Method Room Air Room Air BMI result Body Mass Index 43.6 Labs 08/10/25 11:26 08/10/25 11:26 Medications Medications Current Medications Acetaminophen (Acetaminophen 325 Mg Tablet) 975 mg PO Q6H PRN PRN Reason: Headache/Pain, Scale 1-10 Al Hydroxide/Mg Hydroxide (Magnesium Hydrox/Alum Hydrox 30 Ml Oral.Susp) 30 ml PO Q6H PRN PRN Reason: Heartburn/Nausea Last Admin: 08/12/25 16:35 Dose: 30 ml Amitriptyline HCl (Amitriptyline Hcl 25 Mg Tablet) 25 mg PO BEDTIME [facility]IA G Last Admin: 08/15/25 20:19 Dose: 25 mg Atorvastatin Calcium (Atorvastatin Calcium 40 Mg Tablet) 40 mg PO DAILY [facility] G Last Admin: 08/16/25 08:36 Dose: 40 mg Benzocaine (Throat Lozenge, Medicated Lozenge) 1 lozenge MUCOUS MEM Q2H PRN PRN Reason: Sore Throat Last Admin: 08/12/25 16:35 Dose: 1 lozenge Bisacodyl (Bisacodyl 5 Mg Tablet.Dr) 10 mg PO BEDTIME [facility] Last Admin: 08/15/25 20:19 Dose: 10 mg Calcium Polycarbophil (Calcium Polycarbophil Tablet) 1 tab PO BID [facility] Last Admin: 08/16/25 08:36 Dose: 1 tab Diphenhydramine HCl (Diphenhydramine Hcl 25 Mg Capsule) 50 mg PO BID PRN PRN Reason: extrapyramidal effects/symptoms Docusate Sodium (Docusate Sodium 100 Mg Capsule) 100 mg PO BEDTIME PRN PRN Reason: Constipation Doxycycline Monohydrate (Doxycycline Monohydrate 100 Mg Capsule) 100 mg PO Q12H [facility] Last Admin: 08/16/25 08:36 Dose: 100 mg Famotidine (Famotidine 20 Mg Tablet) 20 mg PO DAILY PRN PRN Reason: GERD Fluvoxamine Maleate (Fluvoxamine Maleate 50 Mg Tablet) 50 mg PO BEDTIME [facility] Last Admin: 08/15/25 20:19 Dose: 50 mg Guaifenesin/Dextromethorphan (Guaifenesin Dm 600/30 1 Tab Tab.Er.12h) 1 tab PO BID [facility] Stop: 08/19/25 20:59 Last Admin: 08/16/25 08:36 Dose: 1 tab Haloperidol (Haloperidol 1 Mg Tablet) 2 mg PO DAILY [facility] Last Admin: 08/16/25 08:36 Dose: 2 mg Haloperidol (Haloperidol 5 Mg Tablet) 5 mg PO BEDTIME [facility] Last Admin: 08/15/25 20:19 Dose: 5 mg Haloperidol (Haloperidol 5 Mg Tablet) 5 mg PO BID PRN PRN Reason: psychosis/agitation Last Admin: 08/12/25 13:10 Dose: 5 mg Hydroxyzine HCl (Hydroxyzine Hcl 25 Mg Tablet) 25 mg PO Q6H PRN PRN Reason: mild anxiety Last Admin: 08/12/25 13:10 Dose: 25 mg Ibuprofen (Ibuprofen 600 Mg Tablet) 600 mg PO Q6H PRN PRN Reason: Headache Last Admin: 08/13/25 00:12 Dose: 600 mg Ketotifen Fumarate (Ketotifen Fumarate 0.025% Oph 5 Ml Drpbtl) 1 drop EYE-BOTH BID PRN PRN Reason: allergies Last Admin: 08/15/25 20:29 Dose: 1 drop Lidocaine (Lidocaine 4 % Patch Adh..Patch) 1 patch TRANSDERMA DAILY [facility] Last Admin: 08/16/25 08:40 Dose: Not Given Magnesium Hydroxide (Milk Of Magnesia 30 Ml Oral.Susp) 30 ml PO DAILY PRN PRN Reason: Constipation Methadone HCl (Methadone Hcl 20 Mg/2 Ml Oral.Conc) 28 mg PO DAILY [facility] Last Admin: 08/16/25 08:07 Dose: 28 mg Non-Formulary Medication (Testosterone Cypionate) 200 mg IM Q2W [facility] Omeprazole (Omeprazole 20 Mg Capsule.Dr) 20 mg PO DAILY@0630 [facility] Last Admin: 08/16/25 06:55 Dose: 20 mg Sodium Chloride (Sodium Chloride 0.65 % Nasal 44 Ml Sprbtl) 1 spray NOSTRIL-B Q2H PRN PRN Reason: Nasal congestion Tamsulosin HCl (Tamsulosin Hcl 0.4 Mg Capsule) 0.4 mg PO BEDTIME [facility] Last Admin: 08/15/25 20:19 Dose: 0.4 mg Trazodone HCl (Trazodone Hcl 50 Mg Tablet) 50 mg PO BEDTIME MRX1 PRN PRN Reason: Insomnia Last Admin: 08/11/25 20:54 Dose: 50 mg Vitamin D (Cholecalciferol (Vitamin D3) 25 Mcg Tablet) 50 mcg PO DAILY [facility] Last Admin: 08/16/25 08:36 Dose: 50 mcg Allergies Allergies Allergy/AdvReac Type Severity Reaction Status Date / Time SEAFOOD Allergy Severe ANAPHYLAXIS Uncoded 08/10/25 11:18 shellfish Allergy Severe Anaphylaxis Uncoded 08/10/25 11:18 Assessment & Plan Assessment & Plan (1) MDD (major depressive disorder): Status: Acute Code(s): F32.9 - Major depressive disorder, single episode, unspecified (2) JODY (generalized anxiety disorder): Status: Acute Code(s): F41.1 - Generalized anxiety disorder (3) Opioid use disorder: Status: Acute Code(s): F11.90 - Opioid use, unspecified, uncomplicated (4) HTN (hypertension): Status: Acute Code(s): I10 - Essential (primary) hypertension Plan Patient is a 55 year old male with hx of MDD, JODY and opioid use d/o who was brought in via ambulance due to increased paranoia, anxiety and auditory hallucinations secondary to no specific triggering events. Plan: CV 15 minute safety checks obtain collateral Continue home medications encourage groups ? referral to VNA discharge planning 08/13: Active on unit. keeping to self. conference interpreter present. Patient reports feeling he is improving; pt stated, I feel like my mind is much more clear with the medication . Patient reports he spoke with his girlfriend and he agrees to having a VNA to help him with medication administration. He reports no longer having paranoia ; denies SI/HI/VH/AH. Plan to discharge early next week if continues to improve; pt aware. continue tx plan. 08/14: conference interpreter present. Patient reports he feels like I'm getting better ; denies SI/HI/VH/AH. He reports sleeping well last night. denies any issues at this time. Plan to discharge Sunday; pt aware. continue tx plan. 08/15: no changes today, monitor chronic joint pain, consider etiologies 08/16: titrate Ibuprofen to 800 mg TID PRN pain, moderate to severe, give with food/snack Patient educated on: diagnosis and medication risk/benefits Informed Consent: understands Reason for continued inpatient stay Substantial Risk for: harm to self and inability to function Time Spent With Patient Time: Total time managing care of this patient today _25__ minutes.
[2025-08-16 19:30] VITALS: BP 123/84; PULSE 105; RESP 17; TEMP 36.7; O2SAT 99
[2025-08-17] MEDS: methADONE HCl 20 MG/2 ML ORAL.CONC 28 MG PO (07:46)
[2025-08-17 08:16] VITALS: BP 106/55; PULSE 64; RESP 16; TEMP 36.9; O2SAT 96
[2025-08-17] MEDS: guaiFENesin DM 600/30 1 TAB TAB.ER.12H PO ×2 (08:49→20:55)
[2025-08-17] MEDS: calcium polycarbophiL TABLET 1 TAB PO (08:49)
--- NOTE | 2025-08-17 13:05 | P.PNPSI_ITS ---
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 Patient reports feeling good today; denies feeling depressed. He reports sleeping well last night. denies SI/HI/VH. He reports auditory hallucinations at times of music ; educated regarding utilizing PRN Haldol. Patient reports he plans on being medication compliant and following up with his outpatient providers. Medication Compliance: Yes Side effects from medications: No Attending Groups: No Mental Status Exam Mental Status Exam Narrative: Pt is alert and oriented; behavior is cooperative and calm; dressed in casual attire; mood is described as good ; eye contact appropriate; Speech is normal rate, volume and not pressured; thought process is organized; Thought content is on discharge; denies SI/HI/VH. +AH sometimes during the day. Diagnostics Vital Signs (24Hr): Vital Signs - 24 hr 08/16/25 19:30 08/17/25 08:16 Temperature 98.1 F 98.4 F Pulse Rate 105 H 64 Respiratory Rate 17 16 Blood Pressure 123/84 106/55 L Pulse Oximetry 99 96 Oxygen Delivery Method Room Air Room Air BMI result Body Mass Index 43.6 Labs 08/10/25 11:26 08/10/25 11:26 Medications Medications Current Medications Acetaminophen (Acetaminophen 325 Mg Tablet) 975 mg PO Q6H PRN PRN Reason: Headache/Pain, Scale 1-10 Al Hydroxide/Mg Hydroxide (Magnesium Hydrox/Alum Hydrox 30 Ml Oral.Susp) 30 ml PO Q6H PRN PRN Reason: Heartburn/Nausea Last Admin: 08/12/25 16:35 Dose: 30 ml Amitriptyline HCl (Amitriptyline Hcl 25 Mg Tablet) 25 mg PO BEDTIME MARIA G Last Admin: 08/16/25 20:29 Dose: 25 mg Atorvastatin Calcium (Atorvastatin Calcium 40 Mg Tablet) 40 mg PO DAILY MARIA G Last Admin: 08/17/25 08:49 Dose: 40 mg Benzocaine (Throat Lozenge, Medicated Lozenge) 1 lozenge MUCOUS MEM Q2H PRN PRN Reason: Sore Throat Last Admin: 08/12/25 16:35 Dose: 1 lozenge Bisacodyl (Bisacodyl 5 Mg Tablet.Dr) 10 mg PO BEDTIME MARIA G Last Admin: 08/16/25 20:29 Dose: 10 mg Calcium Polycarbophil (Calcium Polycarbophil Tablet) 1 tab PO BID [facility] Last Admin: 08/17/25 08:49 Dose: 1 tab Diphenhydramine HCl (Diphenhydramine Hcl 25 Mg Capsule) 50 mg PO BID PRN PRN Reason: extrapyramidal effects/symptoms Docusate Sodium (Docusate Sodium 100 Mg Capsule) 100 mg PO BEDTIME PRN PRN Reason: Constipation Doxycycline Monohydrate (Doxycycline Monohydrate 100 Mg Capsule) 100 mg PO Q12H [facility] Last Admin: 08/17/25 08:49 Dose: 100 mg Famotidine (Famotidine 20 Mg Tablet) 20 mg PO DAILY PRN PRN Reason: GERD Fluvoxamine Maleate (Fluvoxamine Maleate 50 Mg Tablet) 50 mg PO BEDTIME [facility] Last Admin: 08/16/25 20:29 Dose: 50 mg Guaifenesin/Dextromethorphan (Guaifenesin Dm 600/30 1 Tab Tab.Er.12h) 1 tab PO BID [facility] Stop: 08/19/25 20:59 Last Admin: 08/17/25 08:49 Dose: 1 tab Haloperidol (Haloperidol 1 Mg Tablet) 2 mg PO DAILY [facility] Last Admin: 08/17/25 08:49 Dose: 2 mg Haloperidol (Haloperidol 5 Mg Tablet) 5 mg PO BEDTIME [facility] Last Admin: 08/16/25 20:29 Dose: 5 mg Haloperidol (Haloperidol 5 Mg Tablet) 5 mg PO BID PRN PRN Reason: psychosis/agitation Last Admin: 08/17/25 11:42 Dose: 5 mg Hydroxyzine HCl (Hydroxyzine Hcl 25 Mg Tablet) 25 mg PO Q6H PRN PRN Reason: mild anxiety Last Admin: 08/12/25 13:10 Dose: 25 mg Ibuprofen (Ibuprofen 800 Mg Tablet) 800 mg PO Q8H PRN PRN Reason: Headache Last Admin: 08/17/25 08:50 Dose: 800 mg Ketotifen Fumarate (Ketotifen Fumarate 0.025% Oph 5 Ml Drpbtl) 1 drop EYE-BOTH BID PRN PRN Reason: allergies Last Admin: 08/15/25 20:29 Dose: 1 drop Lidocaine (Lidocaine 4 % Patch Adh..Patch) 1 patch TRANSDERMA DAILY [facility] Last Admin: 08/17/25 08:55 Dose: Not Given Magnesium Hydroxide (Milk Of Magnesia 30 Ml Oral.Susp) 30 ml PO DAILY PRN PRN Reason: Constipation Methadone HCl (Methadone Hcl 20 Mg/2 Ml Oral.Conc) 28 mg PO DAILY [facility] Last Admin: 08/17/25 07:46 Dose: 28 mg Non-Formulary Medication (Testosterone Cypionate) 200 mg IM Q2W [facility] Omeprazole (Omeprazole 20 Mg Capsule.Dr) 20 mg PO DAILY@0630 [facility] Last Admin: 08/17/25 06:37 Dose: 20 mg Sodium Chloride (Sodium Chloride 0.65 % Nasal 44 Ml Sprbtl) 1 spray NOSTRIL-B Q2H PRN PRN Reason: Nasal congestion Tamsulosin HCl (Tamsulosin Hcl 0.4 Mg Capsule) 0.4 mg PO BEDTIME MARIA G Last Admin: 08/16/25 20:28 Dose: 0.4 mg Trazodone HCl (Trazodone Hcl 50 Mg Tablet) 50 mg PO BEDTIME MRX1 PRN PRN Reason: Insomnia Last Admin: 08/16/25 20:27 Dose: 50 mg Vitamin D (Cholecalciferol (Vitamin D3) 25 Mcg Tablet) 50 mcg PO DAILY [facility] Last Admin: 08/17/25 08:49 Dose: 50 mcg Allergies Allergies Allergy/AdvReac Type Severity Reaction Status Date / Time SEAFOOD Allergy Severe ANAPHYLAXIS Uncoded 08/10/25 11:18 shellfish Allergy Severe Anaphylaxis Uncoded 08/10/25 11:18 Assessment & Plan Assessment & Plan (1) MDD (major depressive disorder): Status: Acute Code(s): F32.9 - Major depressive disorder, single episode, unspecified (2) JODY (generalized anxiety disorder): Status: Acute Code(s): F41.1 - Generalized anxiety disorder (3) Opioid use disorder: Status: Acute Code(s): F11.90 - Opioid use, unspecified, uncomplicated (4) HTN (hypertension): Status: Acute Code(s): I10 - Essential (primary) hypertension Plan Patient is a 55 year old male with hx of MDD, JODY and opioid use d/o who was brought in via ambulance due to increased paranoia, anxiety and auditory hallucinations secondary to no specific triggering events. Plan: CV 15 minute safety checks obtain collateral Continue home medications encourage groups ? referral to VNA discharge planning 08/13: Active on unit. keeping to self. 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 Patient reports feeling he is improving; pt stated, I feel like my mind is much more clear with the medication . Patient reports he spoke with his girlfriend and he agrees to having a VNA to help him with medication administration. He reports no longer having paranoia ; denies SI/HI/VH/AH. Plan to discharge early next week if continues to improve; pt aware. continue tx plan. 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 Patient reports he feels like I'm getting better ; denies SI/HI/VH/AH. He reports sleeping well last night. denies any issues at this time. Plan to discharge Sunday; pt aware. continue tx plan. 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 Patient reports feeling good today; denies feeling depressed. He reports sleeping well last night. denies SI/HI/VH. He reports auditory hallucinations at times of music ; educated regarding utilizing PRN Haldol. Patient reports he plans on being medication compliant and following up with his outpatient providers. Patient educated on: diagnosis and medication risk/benefits Reason for continued inpatient stay Substantial Risk for: stable for discharge Time Spent With Patient Time: Total time managing care of this patient today _20___ minutes.
[2025-08-17 19:57] VITALS: BP 102/62; PULSE 62; RESP 16; TEMP 36.6; O2SAT 98
[2025-08-18 08:00] VITALS: BP 131/72; PULSE 64; RESP 14; TEMP 36.6; O2SAT 97
[2025-08-18] MEDS: methADONE HCl 20 MG/2 ML ORAL.CONC 28 MG PO (08:26)
[2025-08-18] MEDS: guaiFENesin DM 600/30 1 TAB TAB.ER.12H PO (08:27)
[2025-08-18] MEDS: calcium polycarbophiL TABLET 1 TAB PO (08:27)
[2025-08-18] MEDS: Naloxone HCl Nasal TAKE HOME 4 MG SPRAY 8 MG NOSTRILALT (08:29)
--- NOTE | 2025-08-18 08:51 | PM.PSYDC ---
DS: Providers Provider Date of admission: 08/11/25 12:17 Date of discharge: 08/18/25 Primary care physician: [facility] Admitting clinician: Yanet Stewart Attending physician on admission: Jaswant Peters Attending physician on discharge: Jaswant Peters Discharging clinician: Yanet Stewart DS: Diagnosis Discharge Diagnosis (1) MDD (major depressive disorder): Status: Acute (2) JODY (generalized anxiety disorder): Status: Acute (3) Opioid use disorder: Status: Acute (4) HTN (hypertension): Status: Acute DS: Medications Discharge Medications Home Medications: Home Medications ?Medication ?Instructions ?Recorded ?Confirmed cholecalciferol (vitamin D3) 50 50 mcg PO DAILY 06/30/20 08/10/25 mcg (2,000 unit) capsule (Vitamin D3) pantoprazole 40 mg tablet,delayed 40 mg PO DAILY 04/10/25 08/10/25 release calcium polycarbophil 625 mg 625 mg PO BID 07/14/25 08/10/25 tablet (Fiber-Lax) ketotifen fumarate 0.025 % (0.035 1 drp ophthalmic (eye) BID PRN 07/14/25 08/10/25 %) eye drops allergies rosuvastatin 10 mg tablet 10 mg PO DAILY 07/14/25 08/10/25 lidocaine 5 % topical patch 1 - 2 patch topical DAILY 07/15/25 08/10/25 methadone 10 mg/mL oral 28 mg PO DAILY 07/15/25 08/10/25 concentrate (Methadone Intensol) Previous Rx's ?Medication ?Instructions ?Recorded docusate sodium 100 mg capsule 100 mg PO BEDTIME PRN constipation 02/27/25 #90 caps famotidine 20 mg tablet 20 mg PO DAILY PRN GERD #90 tabs 02/27/25 tamsulosin 0.4 mg capsule 0.4 mg PO BEDTIME 90 days #90 caps 04/07/25 testosterone cypionate 200 mg/mL 200 mg IM Q2W 28 days #2 mL 04/07/25 intramuscular oil amitriptyline 25 mg tablet 25 mg PO BEDTIME 30 days #30 tabs 07/27/25 diphenhydramine HCl 50 mg capsule 50 mg PO BID PRN extrapyramidal 07/27/25 effects/symptoms 7 days #14 caps fluvoxamine 50 mg tablet 50 mg PO BEDTIME 30 days #30 tabs 07/27/25 haloperidol 2 mg tablet 2 mg PO DAILY 30 days #30 tabs 07/27/25 haloperidol 5 mg tablet 5 mg PO BEDTIME 30 days #30 tabs 07/27/25 doxycycline monohydrate 100 mg 100 mg PO Q12H #12 caps 08/06/25 capsule haloperidol 5 mg tablet 5 mg PO BID PRN 08/17/25 psychosis/agitation 7 days #14 tabs Mental Status Exam Mental Status Exam Narrative: Pt is alert and oriented; behavior is cooperative and calm; dressed in casual attire; mood is described as good ; eye contact appropriate; Speech is normal rate, volume and not pressured; thought process is organized; Thought content is on discharge; denies SI/HI/VH. +AH sometimes during the day. Data Data Completed and Pending Completed studies during hospitalization [Text1]: 08/12/25 15:56 Influenza Type A (PCR) NEGATIVE Influenza Type B (PCR) NEGATIVE RSV RNA Qual (PCR) NEGATIVE SARS-CoV-2 RNA (RT-PCR) NEGATIVE DS: Summary Hospital Course Hospital Course: Patient is a 55 year old male with hx of MDD, JODY and opioid use d/o who was brought in via ambulance due to increased paranoia, anxiety and auditory hallucinations secondary to no specific triggering events. Per crisis report, patient was recently discharged from on 07/28/2025. Patient reports he has not been sleeping for the last 4 days. Patient's spouse expressed patient was worried someone was after him, his coffee contained poison and there was a hidden camera in the leung. Patient reports having lots of anxiety . He denied SI/HI/VH. Denies any substance use. Utox positive for methadone. History crack and heroin use however, reports he has not been using; last use was a year ago. During admission assessment, patient presents alert and oriented x3. Calm cooperative. seismic interpreter present. Patient reports feeling depressed and anxious ; patient stated, I felt like I was taking the medications but not as prescribed. I forgot to take them and started feeling worse. I started feeling depression and anxiety . Patient reports he was having auditory hallucinations and paranoia, however, they stopped when he came to the unit. Patient currently denies SI/HI/VH/AH. Patient reports good appetite; poor sleep due to racing thoughts . Patient stated, I feel like the medications help me when I was taking them . Discussed referral to a visiting nurse to help with medication management; patient reports he would like to speak to his girlfriend prior to agreeing to having a VNA. Plan: CV 15 minute safety checks obtain collateral Continue home medications encourage groups ? referral to VNA discharge planning Active on unit. keeping to self. seismic interpreter present. Patient reports feeling he is improving; pt stated, I feel like my mind is much more clear with the medication . Patient reports he spoke with his girlfriend and he agrees to having a VNA to help him with medication administration. He reports no longer having paranoia ; denies SI/HI/VH/AH. Plan to discharge early next week if continues to improve; pt aware. continue tx plan. seismic interpreter present. Patient reports he feels like I'm getting better ; denies SI/HI/VH/AH. He reports sleeping well last night. denies any issues at this time. Plan to discharge Sunday; pt aware. continue tx plan. no changes today, monitor chronic joint pain, consider etiologies titrate Ibuprofen to 800 mg TID PRN pain, moderate to severe, give with food/snack seismic interpreter present. Patient reports feeling good today; denies feeling depressed. He reports sleeping well last night. denies SI/HI/VH. He reports auditory hallucinations at times of music ; educated regarding utilizing PRN Haldol. Patient reports he plans on being medication compliant and following up with his outpatient providers. Status at Discharge Cognitive/behavioral status at discharge: Patient has insight and demonstrates good judgment in terms of wanting to pursue treatment. Patient has a safety plan that includes presenting to the closest ER or calling 911 if feeling unsafe. Functional status at discharge: independent ambulation Overall status at discharge: patient is back to baseline Time Spent with Patient Time attestation: Total time managing care of this patient today _20___ minutes. Time spent: Less than 30 minutes Discharge Plan Discharge Anticipated Discharge Date/Time: 08/18/25 11:00 Patient Disposition: Home, Self-Care Discharge Diagnosis: MDD with psychosis, PTSD, Opioid use d/o Referrals: Dr. Quezada [Other] - 09/16/25 1:00 pm Referral Note: IN OFFICE APPOINTMENT Mojgan Ludwig ([facility]) [Other] - 1 Week Referral Note: *You have been referred to [facility] for visiting nurse services. The agency has been informed of your discharge and services will start within 24-48 hours. If you have any questions please call the phone number listed above. Heather Hale (Therapy) [Other] - 08/20/25 1:00 pm Referral Note: IN OFFICE APPOINTMENT [place] [Primary Care Provider, Medical] - 09/01/25 9:30 am Referral Note: 08-17-25 Your follow up appt has been scheduled with Dr. Maher on 09-01-25 @ 9:30am Discharge Medications: New haloperidol 5 mg Tablet 5 mg PO BID PRN (Reason: psychosis/agitation) 7 Days Qty: 14 0RF Continued cholecalciferol (vitamin D3) [Vitamin D3] 50 mcg (2,000 unit) Capsule 50 mcg PO DAILY doxycycline monohydrate 100 mg Capsule 100 mg PO Q12H Qty: 12 0RF ketotifen fumarate 0.025 % (0.035 %) drops 1 drp ophthalmic (eye) BID PRN (Reason: allergies) calcium polycarbophil [Fiber-Lax] 625 mg tablet 625 mg PO BID rosuvastatin 10 mg tablet 10 mg PO DAILY methadone [Methadone Intensol] 10 mg/mL Concentrate 28 mg PO DAILY Patient Comments: gets take home bottles, will call to verify with clinic lidocaine 5 % adhesive patch,medicated 1 - 2 patch topical DAILY Rx Instructions: 12 HOURS AND OFF FOR 12 HOURS DIRECTED FOR MILD PAIN fluvoxamine 50 mg Tablet 50 mg PO BEDTIME 30 Days Qty: 30 0RF haloperidol 5 mg Tablet 5 mg PO BEDTIME 30 Days Qty: 30 0RF Patient Comments: states doesnt remember when he last took, due to being confused about this medication haloperidol 2 mg tablet 2 mg PO DAILY 30 Days Qty: 30 0RF diphenhydramine HCl 50 mg capsule 50 mg PO BID PRN (Reason: extrapyramidal effects/symptoms) 7 Days Qty: 14 0RF amitriptyline 25 mg tablet 25 mg PO BEDTIME 30 Days Qty: 30 0RF pantoprazole 40 mg tablet,delayed release (DR/EC) 40 mg PO DAILY famotidine 20 mg tablet 20 mg PO DAILY PRN (Reason: GERD) Qty: 90 1RF Rx Instructions: Take one tablet daily at bedtime as needed docusate sodium 100 mg capsule 100 mg PO BEDTIME PRN (Reason: constipation) Qty: 90 0RF Rx Instructions: Take one tablet at bedtime as needed for constipation tamsulosin 0.4 mg capsule 0.4 mg PO BEDTIME 90 Days Qty: 90 1RF testosterone cypionate 200 mg/mL oil 200 mg IM Q2W 28 Days Qty: 2 5RF Discharge Orders: Discharge Order (Routine); Ordered 08/18/25 Ordered By: Yanet Stewart Diet: Regular diet Activity on Discharge: As tolerated Stand Alone Forms: Patient Portal Discharge page, Community Support Print Language: Guyanese Care Plan Goals: Maintain mood and safe behaviors Take medications as prescribed Continue to pursue sobriety Practice coping skills Continue with outpatient providers and reach out to them as needed Health Concerns: Mood stability and behaviors Sobriety Plan of Treatment: Follow up with your PCP, psychiatric provider and other outpatient providers regarding above concerns Take medications as prescribed Assessment: Patient has insight and demonstrates good judgment in terms of wanting to pursue treatment. Patient has a safety plan that includes presenting to the closest ER or calling 911 if feeling unsafe.
== END 2025-08-18 11:51 | disposition home or self-care (01) | DRG 751 ==
LOC: HO.ED 17:14 → HO.PADLT16 08-11 12:35
PROVIDERS: Nurse Practitioner Family; Admitting Provider Registered Nurse; Emergency Provider Emergency Medicine; Responsible Provider Registered Nurse; Visit Provider Psychiatry & Neurology Psychiatry
DX: F32.3 Major depressive disorder, single episode, severe with psychotic features (principal); E29.1 Testicular hypofunction; F11.20 Opioid dependence, uncomplicated; F41.1 Generalized anxiety disorder; I10 Essential (primary) hypertension; F43.10 Post-traumatic stress disorder, unspecified; N40.0 Benign prostatic hyperplasia without lower urinary tract symptoms; K21.9 Gastro-esophageal reflux disease without esophagitis; Z20.822 Contact with and (suspected) exposure to COVID-19; Z87.891 Personal history of nicotine dependence; Z79.899 Other long term (current) drug therapy
CPT/HCPCS: 36415; 80053; 80143; 80179; 80307; 81003; 82947; 85025; 87637; 93005; 99285; S9485

== ENCOUNTER → 2025-08-10 11:17 | Outpatient (BNV) | payer MEDICAID, SELFPAY | PROVIDERS: Emergency Provider Emergency Medicine; Visit Provider Internal Medicine Cardiovascular Disease | DX: R00.1 Bradycardia, unspecified (principal) | CPT/HCPCS: 93010 ==

== ENCOUNTER → 2025-08-11 12:17 | Outpatient (BNV) | payer MEDICAID, SELFPAY | PROVIDERS: Admitting Provider Registered Nurse; Emergency Provider Emergency Medicine; Visit Provider Nurse Practitioner Family | DX: I10 Essential (primary) hypertension (principal) | CPT/HCPCS: 99221 ==

== ENCOUNTER → 2025-08-11 12:17 | Outpatient (BNV) | payer OTHER, SELFPAY | PROVIDERS: Admitting Provider Registered Nurse; Emergency Provider Emergency Medicine; Responsible Provider Registered Nurse; Visit Provider Registered Nurse | DX: F33.2 Major depressive disorder, recurrent severe without psychotic features (principal); F41.1 Generalized anxiety disorder; F11.90 Opioid use, unspecified, uncomplicated; I10 Essential (primary) hypertension | CPT/HCPCS: 99232; 99233 ==